=== PATIENT | female | born 1960 | race Caucasian/White ===

== ENCOUNTER 2023-02-07 08:43 | Outpatient (OUT) | payer MEDICARE, MEDICAID, SELFPAY ==
[2023-02-07 09:02] LABS: Estimated GFR (African America >60 (>=60); Estimated GFR (Non-African Ame >60 (>=60)
--- NOTE | 2023-02-07 09:32 | US_ITS ---
[place] [id number] Patient Name: PAULY QUEZADA MRN: [id number] date: 1960 Sex: F Assigned Patient Location: CARD Current Patient Location: Accession/Order Number: [id number] Exam Date: 02/07/2023 09:40 Report Date: 02/08/2023 00:44 At the request of: STEPAN SAM Procedure: US carotid duplex BI EXAMINATION: US carotid duplex BI HISTORY: Bilateral Carotid Bruit COMPARISON: Ultrasound carotid artery bilateral 08/22/2022 TECHNIQUE: Duplex Doppler ultrasound analysis of carotid and vertebral arteries. . Bilateral carotid arterial duplex examination was performed using B-mode, color flow and spectral analysis. Carotid stenosis is reported according to validated velocity parameters, similar to NASCET criteria. FINDINGS: RIGHT CAROTID ARTERY: Mild-moderate slightly irregular atherosclerotic plaque within carotid bulb. RIGHT VERTEBRAL: Antegrade flow. Subclavian: PSV: 124.0 cm/s EDV: 0.0 cm/s CCA: Prox: PSV: 72.7 cm/s EDV: 17.5 cm/s Mid: PSV: 78.6 cm/s EDV: 17.5 cm/s Distal: PSV: 68.8 cm/s EDV: 11.6 cm/s BULB: PSV: 59.4 cm/s EDV: 7.6 cm/s ICA: Prox: PSV: 41.2 cm/s EDV: 8.5 cm/s Mid: PSV: 50.5 cm/s EDV: 14.7 cm/s Distal: PSV: 64.5 cm/s EDV: 10.4 cm/s ECA: PSV: 102.1 cm/s EDV: 5.0 cm/s VERTEBRAL: PSV: 50.3 cm/s EDV: 12.8 cm/s ICA/CCA ratio: PSV: 0.8 EDV: 0.6 LEFT CAROTID ARTERY: Moderate atherosclerotic plaque with 61% area reduction within carotid bulb. LEFT VERTEBRAL: Antegrade flow. Subclavian: PSV: 93.5 cm/s EDV: 0.0 cm/s CCA: Prox: PSV: 95.1 cm/s EDV: 16.0 cm/s Mid: PSV: 75.7 cm/s EDV: 16.0 cm/s Distal: PSV: 69.3 cm/s EDV: 17.6 cm/s BULB: PSV: 56.3 cm/s EDV: 14.4 cm/s ICA: Prox: PSV: 75.7 cm/s EDV: 19.2 cm/s Mid: PSV: 64.4 cm/s EDV: 19.2 cm/s Distal: PSV: 70.8 cm/s EDV: 20.8 cm/s ECA: PSV: 211.4 cm/s EDV: 8.1 cm/s VERTEBRAL: PSV: 14.0 cm/s EDV: 5.6 cm/s ICA/CCA ratio: PSV: 0.8 EDV: 1.2 US/US carotid duplex BI IMPRESSION: 1. 0-49% flow stenosis within the right left carotid arteries. 2. Stable mild/moderate atherosclerotic plaque, greatest within left carotid bulb with grossly stable 61% area reduction. 3. Multiple thyroid nodules, also evaluated on the 09/04/2022 ultrasound thyroid study. Follow-up in one year as suggested on the prior thyroid study is still recommended. Electronically authenticated by: SHAWN GRAFF Date: 02/08/2023 00:44
--- NOTE | 2023-02-07 09:39 | CA_ITS ---
The [facility] Test Date: 2023-02-07 Pat Name: PAULY QUEZADA Department: Room: - Gender: Female Mac[employer]i [employer]: : 1960 Requested By: STEPAN SAM Order Number: [id number] Reading MD: RAMESH EVANS Interpretive Statements Monophasic doppler waveform PVR waveform with delayed upstroke, blunted amplitude and loss of dicrotic notch Decreased B/L DEYANIRA/TBI Impression: - significant lower extremity arterial disease with moderate-severe hemodynamic impairment of the B/L lower extremities at rest (right DEYANIRA 0.54, left DEYANIRA 0.53) Electronically Signed On 02-08-2023 7:32:31 EDT by RAMESH EVANS
== END 2023-02-07 08:44 | disposition home or self-care (01) ==
LOC: CARD 08:43
PROVIDERS: PCP Family Medicine
DX: I73.9 Peripheral vascular disease, unspecified (principal); I77.9 Disorder of arteries and arterioles, unspecified; R68.89 Other general symptoms and signs; R09.89 Other specified symptoms and signs involving the circulatory and respiratory systems; L98.492 Non-pressure chronic ulcer of skin of other sites with fat layer exposed
CPT/HCPCS: 36415; 82565; 93880; 93923

== ENCOUNTER 2023-02-09 09:27 | Outpatient (OUT) | payer MEDICARE, MEDICAID, SELFPAY ==
--- NOTE | 2023-02-09 | CT_ITS ---
[address] [address] Patient Name: PAULY QUEZADA MRN: [id number] date: 1960 Sex: F Assigned Patient Location: CT Current Patient Location: Accession/Order Number: [id number] Exam Date: 02/09/2023 09:35 Report Date: 02/11/2023 09:45 At the request of: STEPAN SAM Procedure: CT angio abdomen pelvis EXAMINATION: CT angio abdomen pelvis HISTORY: Aortic Aneurysm, surveillance COMPARISON: No relevant comparison available. TECHNIQUE: Axial, Coronal, and Sagittal CT images without and with IV contrast. Multi-planar/3-D imaging to optimize visualization of vascular anatomy. Dose reduction techniques were achieved by using automated exposure control and/or adjustment of mA and/or kV according to patient size and/or use of iterative reconstruction technique. FINDINGS: AORTA/VASCULAR: Mild fusiform dilation of distal abdominal aorta, 2.4 cm in diameter. Prior aortobifemoral endograft stent placement. Marked atherosclerotic disease and noncalcified plaque narrowing the abdominal aorta and iliac arteries and visible femoral arteries. CELIAC ARTERY: Normal celiac vessels. SMA: Mild atherosclerotic narrowing. 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 Patent, but marked atherosclerotic narrowing of left renal artery. LUNG BASES: No visible pulmonary or pleural disease. LIVER: Fatty infiltration. BILIARY: No visible dilatation or calcification. PANCREAS: No lesion, fluid collection, ductal dilatation, or atrophy. SPLEEN: No enlargement or focal lesion. ADRENALS: No mass or enlargement. KIDNEYS: Small cyst within inferior pole of left kidney. No mass, obstruction, or calcification. BOWEL/MESENTERY: Diverticulosis of descending and sigmoid colon without acute inflammatory changes. No visible mass, obstruction, or bowel wall thickening. Normal appendix. RETROPERITONEUM: No mass or adenopathy. LYMPH NODES: No adenopathy. URINARY BLADDER: No visible focal wall thickening, lesion, or calculus. PELVIC ORGANS: No visible mass. Pelvic organs appropriate for patient age. ABDOMINAL WALL: No mass or hernia. BONES: Degenerative disc disease of lumbar spine. No fracture or bone lesion. OTHER: Negative. CT/CT angio abdomen pelvis IMPRESSION: 1. Marked atherosclerotic disease of aorta with prior endovascular aortobifemoral stenting and mild fusiform dilation of distal aorta, 2.4 cm. 2. Marked atherosclerotic narrowing of left renal artery, distal aorta, and bilateral iliac and femoral arteries. 3. Mild colonic diverticulosis. Electronically authenticated by: SHAWN GRAFF Date: 02/11/2023 09:45
== END 2023-02-09 09:28 | disposition home or self-care (01) ==
LOC: CT 09:27
PROVIDERS: PCP Family Medicine
DX: I73.9 Peripheral vascular disease, unspecified (principal); I77.9 Disorder of arteries and arterioles, unspecified
CPT/HCPCS: 74174; Q9967

== ENCOUNTER 2023-03-03 10:50 | Emergency (ER) | payer MEDICARE, MEDICAID, SELFPAY ==
[2023-03-03 10:55] VITALS: BP 149/82; PULSE 69; RESP 16; TEMP 36.6; O2SAT 98; BMI 30.8
--- NOTE | 2023-03-03 11:15 | CT_ITS ---
The [address] [address] Patient Name: PAULY QUEZADA MRN: [id number] date: 1960 Sex: F Assigned Patient Location: ER Current Patient Location: ER Accession/Order Number: [id number] Exam Date: 03/03/2023 11:24 Report Date: 03/03/2023 11:53 At the request of: JASON GONZALEZ Procedure: CT head/brain wo con EXAM: CT head/brain wo con, CT facial bones wo con HISTORY: trauma COMPARISON: None. TECHNIQUE: CT head without contrast. CT facial bones without contrast. Multiplanar reformats obtained. The current study utilizes one or more of the following dose-reduction techniques: automated exposure control, iterative reconstruction, and/or manual adjustment of tube current and voltage for size. FINDINGS: CT HEAD: No acute intracranial hemorrhage. No midline shift. Soliman-white matter differentiation maintained. Regional nonspecific white matter hypoattenuation. Ventricles reflect volume loss. No displaced skull fracture. Mastoid air cells, partially visualized and clear. Paranasal sinuses, partially visualized and clear. CT FACIAL BONES: Mastoid air cells clear. Paranasal sinuses clear. No nasal bone fractures. No orbital fracture. Pterygoid plates are intact. The mandible is intact. Temporal mandibular joint alignment is maintained. Small left frontal and periorbital scalp contusion. CT/CT head/brain wo con IMPRESSION: No acute intracranial findings. No facial bone fractures. Small left frontal scalp and periorbital soft tissue contusion. Electronically authenticated by: CARLOS CISNEROS Date: 03/03/2023 11:53
--- NOTE | 2023-03-03 11:15 | CT_ITS ---
The [address] [address] Patient Name: PAULY QUEZADA MRN: [id number] date: 1960 Sex: F Assigned Patient Location: ER Current Patient Location: ER Accession/Order Number: [id number] Exam Date: 03/03/2023 11:24 Report Date: 03/03/2023 11:53 At the request of: JASON GONZALEZ Procedure: CT facial bones wo con EXAM: CT head/brain wo con, CT facial bones wo con HISTORY: trauma COMPARISON: None. TECHNIQUE: CT head without contrast. CT facial bones without contrast. Multiplanar reformats obtained. The current study utilizes one or more of the following dose-reduction techniques: automated exposure control, iterative reconstruction, and/or manual adjustment of tube current and voltage for size. FINDINGS: CT HEAD: No acute intracranial hemorrhage. No midline shift. Soliman-white matter differentiation maintained. Regional nonspecific white matter hypoattenuation. Ventricles reflect volume loss. No displaced skull fracture. Mastoid air cells, partially visualized and clear. Paranasal sinuses, partially visualized and clear. CT FACIAL BONES: Mastoid air cells clear. Paranasal sinuses clear. No nasal bone fractures. No orbital fracture. Pterygoid plates are intact. The mandible is intact. Temporal mandibular joint alignment is maintained. Small left frontal and periorbital scalp contusion. CT/CT facial bones wo con IMPRESSION: No acute intracranial findings. No facial bone fractures. Small left frontal scalp and periorbital soft tissue contusion. Electronically authenticated by: CARLOS CISNEROS Date: 03/03/2023 11:53
--- NOTE | 2023-03-03 11:27 | ED.FALL1 ---
HPI - Fall General Chief Complaint: Fall Stated Complaint: FALL Time Seen by Provider: 03/03/23 11:12 Source: patient Mode of arrival: walk-in Limitations: no limitations History of Present Illness HPI Narrative: The patient fell down yesterday almost around noon which is almost 12 hours ago she had no loss of consciousness no pain and she is presenting today because after falling and hitting her forehead yesterday she noted today that she have this left ecchymosis below her left eye, that she does not remember having any trauma to her eye she denies any headache or any blurry vision no complaints the patient also take Eliquis as well as aspirin at home Related Data Allergies Allergy/AdvReac Type Severity Reaction Status Date / Time Tetracyclic Antidepressants AdvReac Severe Vomiting Verified 03/03/23 11:00 Review of Systems ROS Status of ROS 10 or more systems reviewed and unremarkable except as noted in history and below [facility] Social History Smoking status: Current every day smoker Exam Narrative Exam Narrative: Nurses notes and vital signs reviewed and patient is not hypoxic. General: Well-appearing and in no apparent distress. Skin: Warm, dry, no pallor noted. No rash. Head: Normocephalic, the patient have a small subcutaneous hematoma to the forehead Neck: Supple, non-tender. Eye: Pupils are equal, round and EOMI. she does have a subconjunctival hemorrhage in her left eye with no signs of trauma pupils are reactive no hyphema no hypopyon, the patient also have a raccoon eye on the left lower eyelid with ecchymosis and mild edema, Ears, Nose, Mouth, and Throat: TM are clear, no nasal mucosal hypertrophy. Oral mucosa is moist, no posterior oropharynx erythema, uvula is mid-line Cardiovascular: Regular Rate and Rhythm without murmur, gallop or rub. Respiratory: No accessory muscle use or respiratory distress. Lungs are clear to auscultation, no wheezing, rales or rhonchi Chest Wall: no tenderness Back: No midline thoracic or lumbar vertebral tenderness. No CVA tenderness Musculoskeletal: normal ROM, no calf or popliteal tenderness, no lower extremity edema/swelling GI: Abdomen is soft, non-distended. Normal bowel sounds. No masses appreciated. No tenderness to palpation. No rebound, guarding, or rigidity noted. Neurological: A&O x4. No cranial nerve dysfunction observed. No truncal ataxia. Moves all extremities. Sensation intact. Psychiatric: Cooperative and interactive. Normal mood and affect. Constitutional Vital Signs, click to edit/add: Last Vital Signs Temp 97.8 F 03/03/23 10:55 Pulse 69 03/03/23 10:55 Resp 16 03/03/23 10:55 BP 149/82 H 03/03/23 10:55 Pulse Ox 98 03/03/23 10:55 O2 Del Method Room Air 03/03/23 10:55 Course Vital Signs Vital signs: Vital Signs Temperature 97.8 F 03/03/23 10:55 Pulse Rate 69 03/03/23 10:55 Respiratory Rate 16 03/03/23 10:55 Blood Pressure 149/82 H 03/03/23 10:55 Pulse Oximetry 98 03/03/23 10:55 Oxygen Delivery Method Room Air 03/03/23 10:55 Temperature 97.8 F 03/03/23 10:55 Pulse Rate 69 03/03/23 10:55 Respiratory Rate 16 03/03/23 10:55 Blood Pressure 149/82 H 03/03/23 10:55 Pulse Oximetry 98 03/03/23 10:55 Oxygen Delivery Method Room Air 03/03/23 10:55 MDM - Fall MDM Narrative Medical decision making narrative: CT head and as well as CT face did not show any acute significant pathology The patient was assured that right now just monitoring and coming back in case of any pain especially any eye pain otherwise supportive care and monitoring The patient is to follow up with primary care physician in next 2-3 days or to return to the emergency department should any of the signs or symptoms worsen or new symptoms develop. The patient agrees with the following Diagnosis and Treatment plan and the patient will be discharged home. Discharge Plan Discharge Chief Complaint: Fall Clinical Impression: Subconjunctival hemorrhage, Head trauma Patient Disposition: Home, Self-Care Time of Disposition Decision: 12:10 Condition: Good Mode of Transportation: Private Vehicle Instructions: Subconjunctival Hemorrhage (ED), Head Injury (ED) Stand Alone Forms: Portal Instructions Referrals: Froylan Muhammad MD [Primary Care Provider] - 1 week
== END 2023-03-03 12:21 | disposition home or self-care (01) ==
PROVIDERS: Emergency Provider Emergency Medicine; PCP Family Medicine
DX: H11.32 Conjunctival hemorrhage, left eye (principal); S09.90XA Unspecified injury of head, initial encounter; F17.210 Nicotine dependence, cigarettes, uncomplicated; W19.XXXA Unspecified fall, initial encounter
CPT/HCPCS: 70450; 70486; 99284

== ENCOUNTER 2023-03-11 13:26 | Outpatient (OUT) | payer MEDICARE, MEDICAID, SELFPAY | END 2023-03-11 13:27 | disposition home or self-care (01) | PROVIDERS: PCP Family Medicine; Visit Provider Physician Assistant | DX: R20.0 Anesthesia of skin (principal) | CPT/HCPCS: G0463 ==

== ENCOUNTER 2023-03-31 13:32 | Emergency (ER) | payer MEDICARE, MEDICAID, SELFPAY ==
[2023-03-31 13:39] VITALS: PULSE 81; RESP 18; TEMP 36.4; O2SAT 97; BMI 30.8
--- NOTE | 2023-03-31 14:25 | ED_ITS ---
HPI - Nausea/Vomiting/Diarrhea General Chief complaint: Nausea/Vomiting/Diarrhea Stated complaint: VOMITING AND CHILLS Time Seen by Provider: 03/31/23 13:42 Source: patient Mode of arrival: Wheelchair Limitations: no limitations History of Present Illness HPI Narrative: patient developed nausea and vomiting around 6am this morning. No associated diarrhea. She admits to mid abdominal cramping. No flank pain, No urinary symptoms or blood in urine or stool. She has chronic constipation and takes stool softeners and metamucil daily. No suspicion of spoiled food ingestion and no known ill exposures. Related Data Home Medications Medication Instructions Recorded Confirmed albuterol sulfate 90 mcg/actuation 2 puff inhalation Q6H PRN 03/31/23 03/31/23 aerosol inhaler (Ventolin HFA) shortness of breath or wheezing carvedilol 25 mg tablet 25 mg PO Q12H 03/31/23 03/31/23 clopidogrel 75 mg tablet 75 mg PO DAILY 03/31/23 03/31/23 dulaglutide 0.75 mg/0.5 mL 0.75 mg subcut .weekly 03/31/23 03/31/23 subcutaneous pen injector (Trulicity) empagliflozin 10 mg tablet 10 mg PO DAILY 03/31/23 03/31/23 (Jardiance) ezetimibe 10 mg tablet 10 mg PO DAILY 03/31/23 03/31/23 lisinopril 20 mg tablet 20 mg PO DAILY 03/31/23 03/31/23 metformin 1,000 mg tablet 1,000 mg PO BID 03/31/23 03/31/23 rivaroxaban 2.5 mg tablet (Xarelto) 2.5 mg PO BID 03/31/23 03/31/23 varenicline 1 mg tablet 1 mg PO BID 03/31/23 03/31/23 venlafaxine 75 mg capsule,extended 75 mg PO DAILY 03/31/23 03/31/23 release 24 hr Previous Rx's Medication Instructions Recorded ondansetron 4 mg disintegrating 4 mg PO Q6H PRN nausea and 03/31/23 tablet vomiting #20 tabs Allergies Allergy/AdvReac Type Severity Reaction Status Date / Time Tetracyclic Antidepressants AdvReac Severe Vomiting Verified 03/03/23 11:00 PFSH PFSH Social History Smoking status: Current every day smoker Exam Narrative Exam Narrative: Nurses notes and vital signs reviewed and patient is not hypoxic. afebrile General: Well-appearing and in no apparent distress. Skin: Warm, dry, no pallor noted. Head: Normocephalic, atraumatic. Neck: Supple, non-tender. no meningismus Eye: Pupils are equal, round and EOMI. No scleral icterus. Cardiovascular: Regular Rate and Rhythm without murmur, gallop or rub. Respiratory: No accessory muscle use or respiratory distress. Lungs are clear to auscultation, no wheezing, rales or rhonchi Back: No CVA tenderness Musculoskeletal: normal ROM GI: Abdomen is soft, non-distended. Normal bowel sounds. No masses appreciated. minimum umbilical tenderness to palpation. No rebound, guarding, or rigidity noted. Neurological: A&O x4. No cranial nerve dysfunction observed. No truncal ataxia. Moves all extremities. Sensation intact. Psychiatric: Cooperative and interactive. Normal mood and affect. Constitutional Vital Signs, click to edit/add: Last Vital Signs Temp 97.6 F 03/31/23 13:39 Pulse 81 03/31/23 15:02 Resp 18 03/31/23 15:02 BP 166/90 H 03/31/23 15:02 Pulse Ox 96 03/31/23 15:02 O2 Del Method Room Air 03/31/23 13:39 Course Vital Signs Vital signs: Vital Signs Temperature 97.6 F 03/31/23 13:39 Pulse Rate 81 03/31/23 13:39 Respiratory Rate 18 03/31/23 13:39 Pulse Oximetry 97 03/31/23 13:39 Oxygen Delivery Method Room Air 03/31/23 13:39 Temperature 97.6 F 03/31/23 13:39 Pulse Rate 81 03/31/23 15:02 Respiratory Rate 18 03/31/23 15:02 Blood Pressure 166/90 H 03/31/23 15:02 Pulse Oximetry 96 03/31/23 15:02 Oxygen Delivery Method Room Air 03/31/23 13:39 MDM - Nausea/Vomiting/Diarrhea MDM Narrative Medical decision making narrative: peripheral IV established and blood drawn and sent for testing. The patient was ordered to receive normal saline IV fluid and IV Zofran. Urine was also ordered to be obtained and sent for testing. WBC 11k w left shift. UA with ketones but no UTI. Lipase negative. CMP notable for elevated BUN. Patient felt better after receiving NS IVF and IV Zofran She was discharged home with prescription for zofran, recommendation to maintain clear liquid diet until symptoms subside and then advance diet as tolerated. ED return if she worsens Lab Data Attestation: I reviewed the patient's lab results. Labs: Lab Results 03/31/23 03/31/23 Range/Units 13:45 15:05 WBC 11.1 H (4.0-11.0) 10^3/uL RBC 5.74 H (4.20-5.40) 10^6/uL Hgb 17.3 H (12.0-16.0) g/dL Hct 51.0 H (36.0-48.0) % MCV 88.9 (81.0-99.0) fL MCH 30.1 (26.7-34.0) pg MCHC 33.9 (29.9-35.2) g/dL RDW 13.2 (11.0-15.0) % Plt Count 294 (150-450) 10^3/uL MPV 9.9 (9.5-13.5) fL Neut % (Auto) 80.0 H (43.0-75.0) % Lymph % (Auto) 14.6 L (20.5-60.0) % Reynolds % (Auto) 4.0 (1.7-12.0) % Eos % (Auto) 0.4 L (0.9-7.0) % Baso % (Auto) 0.4 (0.2-2.0) % Neut # (Auto) 8.9 H (1.4-6.5) 10^3/uL Lymph # (Auto) 1.6 (1.2-3.8) 10^3/uL Reynolds # (Auto) 0.4 (0.3-0.8) 10^3/uL Eos # (Auto) 0.0 (0.0-0.7) 10^3/uL Baso # (Auto) 0.0 (0.0-0.1) 10^3/uL Abs Immat Gran (auto) 0.07 H (0.00-0.03) 10^3/uL Imm/Tot Granulo (auto) 0.6 H (0.0-0.5) % Sodium 134 L (136-145) mmol/L Potassium 4.4 (3.5-5.1) mmol/L Chloride 99 (98-107) mmol/L Carbon Dioxide 23.4 (21.0-32.0) mmol/L Anion Gap 16.0 BUN 26.0 H (7.0-18.0) mg/dL Creatinine 0.81 (0.55-1.02) mg/dL Est GFR ( Amer) >60 (>=60) Est GFR (Non-Af Amer) >60 (>=60) BUN/Creatinine Ratio 32.1 Glucose 178 H (74-106) mg/dL Calcium 10.5 H (8.5-10.1) mg/dL Total Bilirubin 0.6 (0.2-1.0) mg/dL AST 12 L (15-37) U/L ALT 19 (14-59) U/L Alkaline Phosphatase 91 (46-116) U/L Total Protein 8.2 (6.4-8.2) g/dL Albumin 4.2 (3.4-5.0) g/dL Globulin 4.0 g/dL Albumin/Globulin Ratio 1.0 Lipase 24.0 (16.0-77.0) U/L Urine Color Lt. yellow (YELLOW) Urine Clarity Clear (CLEAR) Urine pH 6.5 (5.0-9.0) Ur Specific [place] 1.020 (1.005-1.025) Urine Protein Negative (NEG/TRACE) mg/dL Urine Glucose (UA) >=1000 A (NEGATIVE) mg/dL Urine Ketones 15 A (NEGATIVE) mg/dL Urine Occult Blood Trace-l (NEGATIVE) Urine Nitrite Negative (NEGATIVE) Urine Bilirubin Negative (NEGATIVE) Urine Urobilinogen 0.2 (0.2-1.0) EU/dL Ur Leukocyte Esterase Negative (NEGATIVE) Urine RBC 0-2 (0-2) #/HPF Urine WBC None seen (NONE SEEN) #/HPF Ur Squamous Epith Cells Moderate A (NONE/RARE) #/LPF Urine Crystals None seen (None Seen) #/HPF Urine Bacteria None seen (NONE SEEN) #/HPF Urine Casts None seen (NONE SEEN) #/LPF Urine Mucus None seen (NONE SEEN) Ur Culture Indicated? No Discharge Plan Discharge Chief Complaint: Nausea/Vomiting/Diarrhea Clinical Impression: Nausea & vomiting Patient Disposition: Home, Self-Care Time of Disposition Decision: 15:24 Prescriptions / Home Meds: New ondansetron 4 mg tablet,disintegrating 4 mg PO Q6H PRN (Reason: nausea and vomiting) Qty: 20 0RF No Action Trulicity 0.75 mg/0.5 mL pen injector 0.75 mg SUBCUT .weekly ezetimibe 10 mg tablet 10 mg PO DAILY lisinopril 20 mg tablet 20 mg PO DAILY Xarelto 2.5 mg tablet 2.5 mg PO BID varenicline 1 mg tablet 1 mg PO BID venlafaxine 75 mg capsule,extended release 24hr 75 mg PO DAILY metformin 1,000 mg tablet 1,000 mg PO BID Jardiance 10 mg tablet 10 mg PO DAILY clopidogrel 75 mg tablet 75 mg PO DAILY carvedilol 25 mg tablet 25 mg PO Q12H albuterol sulfate [Ventolin HFA] 90 mcg/actuation HFA aerosol inhaler 2 puff INHALATION Q6H PRN (Reason: shortness of breath or wheezing) Instructions: Acute Nausea and Vomiting (ED) Stand Alone Forms: Portal Instructions Referrals: Froylan Muhammad MD [Primary Care Provider] - 1 week
[2023-03-31] MEDS: ONDANSETRON PF 4 MG/2 ML VIAL IV (14:33)
[2023-03-31] MEDS: 0.9 % SODIUM CHLORIDE 1,000 ML 999 ML IV (14:33)
[2023-03-31 14:38] LABS: Basophils Percent Auto 0.4 % (0.2-2.0); Eosinophils Percent Auto 0.4 % (0.9-7.0); Hemoglobin 17.3 g/dL (12.0-16.0); Immature Granulocytes Abs Auto 0.07 10^3/uL (0.00-0.03); Immature Granulocytes Pct Auto 0.6 % (0.0-0.5); Lymphocytes Absolute Auto 1.6 10^3/uL (1.2-3.8); Lymphocytes Percent Auto 14.6 % (20.5-60.0); Mean Corpuscular HGB Conc 33.9 g/dL (29.9-35.2); Mean Corpuscular Hemoglobin 30.1 pg (26.7-34.0); Mean Corpuscular Volume 88.9 fL (81.0-99.0); Mean Platelet Volume 9.9 fL (9.5-13.5); Monocytes Absolute Auto 0.4 10^3/uL (0.3-0.8); Neutrophils Absolute Auto 8.9 10^3/uL (1.4-6.5); Platelet Count 294 10^3/uL (150-450); Red Blood Count 5.74 10^6/uL (4.20-5.40); Red Cell Distribution Width 13.2 % (11.0-15.0); White Blood Count 11.1 10^3/uL (4.0-11.0)
[2023-03-31 14:53] LABS: Alanine Aminotransferase 19 U/L (14-59); Albumin Level 4.2 g/dL (3.4-5.0); Alkaline Phosphatase 91 U/L (46-116); Aspartate Amino Transferase 12 U/L (15-37); BUN Creatinine Ratio 32.1; Bilirubin Total 0.6 mg/dL (0.2-1.0); Calcium 10.5 mg/dL (8.5-10.1); Carbon Dioxide 23.4 mmol/L (21.0-32.0); Chloride 99 mmol/L (98-107); Estimated GFR (African America >60 (>=60); Estimated GFR (Non-African Ame >60 (>=60); Glucose 178 mg/dL (74-106); Potassium 4.4 mmol/L (3.5-5.1); Sodium 134 mmol/L (136-145); Total Protein 8.2 g/dL (6.4-8.2)
[2023-03-31 15:02] VITALS: BP 166/90; PULSE 81; RESP 18; O2SAT 96
[2023-03-31 15:12] LABS: Bilirubin Urine NEGATIVE (NEGATIVE); Blood Urine TRACE-L (NEGATIVE); Clarity Urine CLEAR (CLEAR); Color Urine LT. YELLOW (YELLOW); Glucose Urine UA >=1000 mg/dL (NEGATIVE); Ketones Urine 15 mg/dL (NEGATIVE); Leukocyte Esterase Urine NEGATIVE (NEGATIVE); Nitrite Urine NEGATIVE (NEGATIVE); Protein Urine NEGATIVE (NEG/TRACE); Urobilinogen Urine 0.2 EU/dL (0.2-1.0); pH Urine 6.5 (5.0-9.0)
[2023-03-31 15:13] LABS: Urine Microscopic Indicated YES
[2023-03-31 15:20] LABS: Bacteria Urine NONE SEEN #/HPF (NONE SEEN); Crystals Seen? None Seen #/HPF (None Seen); Mucus Urine NONE SEEN (NONE SEEN); RBC Urine 0-2 #/HPF (0-2); Squamous Epithelial Cell Urine MODERATE #/LPF (NONE/RARE); WBC Urine NONE SEEN #/HPF (NONE SEEN)
[2023-03-31 15:21] LABS: Cast Seen? NONE SEEN #/LPF (NONE SEEN); Urine Culture Indicated NO
[2023-03-31] MEDS: ONDANSETRON 4 MG RAPDIS TABLET SL (15:42)
== END 2023-03-31 15:46 | disposition home or self-care (01) ==
PROVIDERS: Emergency Provider Emergency Medicine; PCP Family Medicine
DX: R11.2 Nausea with vomiting, unspecified (principal); Z79.899 Other long term (current) drug therapy; Z79.01 Long term (current) use of anticoagulants; Z79.85 Long-term (current) use of injectable non-insulin antidiabetic drugs; F17.210 Nicotine dependence, cigarettes, uncomplicated
CPT/HCPCS: 36415; 80053; 81001; 83690; 85025; 96374; 99285

== ENCOUNTER 2023-04-02 08:40 | Emergency (ER) | payer MEDICARE, MEDICAID, SELFPAY ==
[2023-04-02] VITALS (13 sets, daily range): BP systolic 170–198; BP diastolic 78–100; PULSE 66–91; RESP 15–29; O2SAT 95–100; BMI 29.9
--- NOTE | 2023-04-02 09:11 | XR_ITS ---
The [address] [address] Patient Name: PAULY QUEZADA MRN: [id number] date: 1960 Sex: F Assigned Patient Location: ER Current Patient Location: ER Accession/Order Number: [id number] Exam Date: 04/02/2023 09:30 Report Date: 04/02/2023 09:41 At the request of: DARIN IBARRA Procedure: XR chest 1V EXAM: XR chest 1V HISTORY: . chest pain . COMPARISON: None. TECHNIQUE: Single view of the chest FINDINGS: Heart and vascularity are unremarkable. There is hyperexpansion of the lungs. Lungs are free of focal infiltrates. EKG leads overlie the chest. XR/XR chest 1V IMPRESSION: 1 hyperexpansion of lungs. 2. No acute heart or lung disease identified. Electronically authenticated by: NISA SEGUNDO Date: 04/02/2023 09:41
--- NOTE | 2023-04-02 09:19 | ED.GENADUL1 ---
HPI - General Adult General Chief complaint: Chest Pain Stated complaint: PUKING/CHEST PAIN Time Seen by Provider: 04/02/23 09:19 Source: patient Mode of arrival: Wheelchair History of Present Illness HPI narrative: patient here for intractable nausea and vomiting. She recently a similar episode on Saturday. She came to the [facility]-arm was hydrated was given antiemetics and felt better. She felt pretty good yesterday but cycles repeated itself again today. She is scheduled to go the [facility] tomorrow for admission for I past surgery. She is known to have peripheral vascular disease and had a catheterization prior to further evaluation of her peripheral vascular disease and it was discovered that she has four vessel disease needing grafting according to the patient's history. She does use marijuana on a pretty regular basis. She does not use alcohol. She's never had any problems with her pancreas liver or gallbladder. She has not had any diarrhea. Is not running a fever. Related Data Home Medications Medication Instructions Recorded Confirmed albuterol sulfate 90 mcg/actuation 2 puff inhalation Q6H PRN 03/31/23 03/31/23 aerosol inhaler (Ventolin HFA) shortness of breath or wheezing carvedilol 25 mg tablet 25 mg PO Q12H 03/31/23 03/31/23 clopidogrel 75 mg tablet 75 mg PO DAILY 03/31/23 03/31/23 dulaglutide 0.75 mg/0.5 mL 0.75 mg subcut .weekly 03/31/23 03/31/23 subcutaneous pen injector (Trulicity) empagliflozin 10 mg tablet 10 mg PO DAILY 03/31/23 03/31/23 (Jardiance) ezetimibe 10 mg tablet 10 mg PO DAILY 03/31/23 03/31/23 lisinopril 20 mg tablet 20 mg PO DAILY 03/31/23 03/31/23 metformin 1,000 mg tablet 1,000 mg PO BID 03/31/23 03/31/23 rivaroxaban 2.5 mg tablet (Xarelto) 2.5 mg PO BID 03/31/23 03/31/23 varenicline 1 mg tablet 1 mg PO BID 03/31/23 03/31/23 venlafaxine 75 mg capsule,extended 75 mg PO DAILY 03/31/23 03/31/23 release 24 hr Previous Rx's Medication Instructions Recorded ondansetron 4 mg disintegrating 4 mg PO Q6H PRN nausea and 03/31/23 tablet vomiting #20 tabs Allergies Allergy/AdvReac Type Severity Reaction Status Date / Time Tetracyclic Antidepressants AdvReac Severe Vomiting Verified 03/03/23 11:00 PFSH PFS Social History Smoking status: Current every day smoker Exam Narrative Exam Narrative: awake alert does not appear ill or toxic but does have some dry heaves and nausea. Vital signs are noted. HEENT shows no evidence of scleral icterus edema or pallor. Neck is soft and supple is no meningeal irritation. Chest shows her lungs to be clear with no wheezes rales or rhonchi. Heart sounds are normal with no tachycardia or murmur. Abdomen is benign to palpation. There is no guarding rebound rigidity or peritoneal findings. No tenderness at McBurney's point. Pino sign is negative. Lower extremities show normal limits edema or swelling pain or discomfort. Constitutional Vital Signs, click to edit/add: Last Vital Signs Pulse 78 04/02/23 08:49 Resp 20 04/02/23 08:49 BP 194/100 H 04/02/23 08:57 Pulse Ox 99 04/02/23 08:49 O2 Del Method Room Air 04/02/23 08:49 Course Vital Signs Vital signs: Vital Signs Pulse Rate 78 04/02/23 08:49 Respiratory Rate 20 04/02/23 08:49 Pulse Oximetry 99 04/02/23 08:49 Oxygen Delivery Method Room Air 04/02/23 08:49 Pulse Rate 78 04/02/23 08:49 Respiratory Rate 20 04/02/23 08:49 Blood Pressure 194/100 H 04/02/23 08:57 Pulse Oximetry 99 04/02/23 08:49 Oxygen Delivery Method Room Air 04/02/23 08:49 Medical Decision Making MDM Narrative Medical decision making narrative: we did obtain her medical records from the other facility and she seems to have four vessels that may need therapeutic intervention. Her 12-lead EKG here shows sinus rhythm with no ST segment elevation or arrhythmia. Her cardiac troponin and routine chemistries are normal. She was treated with antibiotics and IV fluids and feels remarkably better. I think she must consider possibility the marijuana use a be contributing factor. I believe she is not having a cardiac event today and is scheduled to see her heart doctor tomorrow morning for further definition of her therapeutic options.these be on clear liquid diet remainders today. She can return should she have any problems. I did discuss this with her primary care doctor for follow-up as well Discharge Plan Discharge Chief Complaint: Chest Pain Clinical Impression: Nausea & vomiting Patient Disposition: Home, Self-Care Time of Disposition Decision: 11:36 Prescriptions / Home Meds: No Action Trulicity 0.75 mg/0.5 mL pen injector 0.75 mg SUBCUT .weekly ezetimibe 10 mg tablet 10 mg PO DAILY lisinopril 20 mg tablet 20 mg PO DAILY Xarelto 2.5 mg tablet 2.5 mg PO BID varenicline 1 mg tablet 1 mg PO BID venlafaxine 75 mg capsule,extended release 24hr 75 mg PO DAILY metformin 1,000 mg tablet 1,000 mg PO BID Jardiance 10 mg tablet 10 mg PO DAILY clopidogrel 75 mg tablet 75 mg PO DAILY carvedilol 25 mg tablet 25 mg PO Q12H albuterol sulfate [Ventolin HFA] 90 mcg/actuation HFA aerosol inhaler 2 puff INHALATION Q6H PRN (Reason: shortness of breath or wheezing) ondansetron 4 mg tablet,disintegrating 4 mg PO Q6H PRN (Reason: nausea and vomiting) Qty: 20 0RF Additional Instructions: return for any problems as discussed Stand Alone Forms: Portal Instructions Referrals: Froylan Muhammad MD [Primary Care Provider] - 1 week
[2023-04-02 09:23] LABS: Basophils Percent Auto 0.5 % (0.2-2.0); Eosinophils Absolute Auto 0.1 10^3/uL (0.0-0.7); Eosinophils Percent Auto 1.4 % (0.9-7.0); Hematocrit 50.1 % (36.0-48.0); Hemoglobin 16.7 g/dL (12.0-16.0); Immature Granulocytes Abs Auto 0.03 10^3/uL (0.00-0.03); Immature Granulocytes Pct Auto 0.4 % (0.0-0.5); Lymphocytes Absolute Auto 1.8 10^3/uL (1.2-3.8); Lymphocytes Percent Auto 21.8 % (20.5-60.0); Mean Corpuscular HGB Conc 33.3 g/dL (29.9-35.2); Mean Corpuscular Hemoglobin 29.8 pg (26.7-34.0); Mean Corpuscular Volume 89.3 fL (81.0-99.0); Monocytes Absolute Auto 0.5 10^3/uL (0.3-0.8); Monocytes Percent Auto 5.4 % (1.7-12.0); Neutrophils Absolute Auto 5.9 10^3/uL (1.4-6.5); Neutrophils Percent Auto 70.5 % (43.0-75.0); Platelet Count 252 10^3/uL (150-450); Red Blood Count 5.61 10^6/uL (4.20-5.40); Red Cell Distribution Width 13.1 % (11.0-15.0); White Blood Count 8.3 10^3/uL (4.0-11.0)
[2023-04-02] MEDS: ONDANSETRON PF 4 MG/2 ML VIAL IV (09:38)
[2023-04-02] MEDS: PROMETHAZINE HCL 25 MG/ML VIAL 12.5 MG IV (09:38)
[2023-04-02 09:41] LABS: Alanine Aminotransferase 19 U/L (14-59); Albumin Level 3.8 g/dL (3.4-5.0); Alkaline Phosphatase 80 U/L (46-116); Anion Gap 16.4; Aspartate Amino Transferase 16 U/L (15-37); BUN Creatinine Ratio 23.2; Bilirubin Total 0.9 mg/dL (0.2-1.0); Calcium 10.6 mg/dL (8.5-10.1); Carbon Dioxide 22.6 mmol/L (21.0-32.0); Chloride 98 mmol/L (98-107); Estimated GFR (African America >60 (>=60); Estimated GFR (Non-African Ame 59 (>=60); Globulin 3.9 g/dL; Glucose 178 mg/dL (74-106); Sodium 133 mmol/L (136-145); Total Protein 7.7 g/dL (6.4-8.2)
[2023-04-02 09:46] LABS: Troponin I High Sensitivity 13.3 pg/mL (4.0-51.3)
[2023-04-02] MEDS: 0.9 % SODIUM CHLORIDE 1,000 ML 999 ML IV (10:27)
--- NOTE | 2023-04-02 11:16 | ECG_ITS ---
The 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
== END 2023-04-02 11:53 | disposition home or self-care (01) ==
PROVIDERS: Emergency Provider Emergency Medicine Emergency Medical Services; PCP Family Medicine
DX: R11.2 Nausea with vomiting, unspecified (principal); I73.9 Peripheral vascular disease, unspecified; F12.90 Cannabis use, unspecified, uncomplicated; Z79.899 Other long term (current) drug therapy; Z79.85 Long-term (current) use of injectable non-insulin antidiabetic drugs; Z79.01 Long term (current) use of anticoagulants; F17.210 Nicotine dependence, cigarettes, uncomplicated
CPT/HCPCS: 36415; 71045; 80053; 83690; 84484; 85025; 93005; 96361; 96374; 96375; 99285

== ENCOUNTER 2023-05-04 07:38 | Outpatient (OUT) | payer MEDICARE, MEDICAID, SELFPAY ==
--- NOTE | 2023-05-04 | US_ITS ---
The [address] [address] Patient Name: PAULY QUEZADA MRN: [id number] date: 1960 Sex: F Assigned Patient Location: LAB Current Patient Location: LAB Accession/Order Number: [id number] Exam Date: 05/04/2023 08:00 Report Date: 05/04/2023 09:06 At the request of: NANO NGUYEN Procedure: US right upper quadrant EXAM: US right upper quadrant HISTORY: . GASTROENTERITIS K52.9 . COMPARISON: None. TECHNIQUE: Grayscale and color imaging was performed FINDINGS: The pancreas appears normal. Scanning of the liver demonstrates a normal-appearing liver. There is mild increased echogenicity of liver. Within the right lobe of the liver there is a 2.9 x 2.2 cm oblong hypoechoic area. No definite color-flow is noted within this area. Color-flow is noted in the portal and hepatic veins. The gallbladder appears normal. Common bile duct measures 5 mm. Right kidney measures 11.5 x 5.2 x 5.3 cm. No solid renal cortical masses or hydronephrosis is noted. No fluid is noted in the right upper quadrant. US/US right upper quadrant Impression: 1. Diffuse increased echogenicity of liver consistent with fatty infiltration of liver. Within the right lobe of the liver there is a 2.9 x 2 cm hypoechoic area. Findings could represent focal fatty sparing. A more aggressive lesion however cannot entirely be excluded. Either MRI of the liver or short-term interval follow-up ultrasound to document stability is suggested. 2. The remainder of the right upper quadrant was unremarkable. Electronically authenticated by: NISA SEGUNDO Date: 05/04/2023 09:06
[2023-05-04 08:21] LABS: Basophils Percent Auto 0.5 % (0.2-2.0); Eosinophils Absolute Auto 0.1 10^3/uL (0.0-0.7); Eosinophils Percent Auto 1.4 % (0.9-7.0); Hematocrit 48.4 % (36.0-48.0); Hemoglobin 15.9 g/dL (12.0-16.0); Immature Granulocytes Abs Auto 0.07 10^3/uL (0.00-0.03); Immature Granulocytes Pct Auto 0.9 % (0.0-0.5); Lymphocytes Absolute Auto 2.3 10^3/uL (1.2-3.8); Lymphocytes Percent Auto 30.6 % (20.5-60.0); Mean Corpuscular HGB Conc 32.9 g/dL (29.9-35.2); Mean Corpuscular Hemoglobin 30.6 pg (26.7-34.0); Mean Corpuscular Volume 93.1 fL (81.0-99.0); Mean Platelet Volume 9.7 fL (9.5-13.5); Monocytes Absolute Auto 0.7 10^3/uL (0.3-0.8); Monocytes Percent Auto 8.9 % (1.7-12.0); Neutrophils Absolute Auto 4.3 10^3/uL (1.4-6.5); Neutrophils Percent Auto 57.7 % (43.0-75.0); Platelet Count 315 10^3/uL (150-450); White Blood Count 7.4 10^3/uL (4.0-11.0)
[2023-05-04 09:14] LABS: Alanine Aminotransferase 16 U/L (14-59); Albumin Globulin Ratio 1.1; Albumin Level 3.9 g/dL (3.4-5.0); Alkaline Phosphatase 86 U/L (46-116); Anion Gap 13.5; Aspartate Amino Transferase 8 U/L (15-37); BUN Creatinine Ratio 30.6; Bilirubin Total 0.6 mg/dL (0.2-1.0); Calcium 9.6 mg/dL (8.5-10.1); Carbon Dioxide 27.3 mmol/L (21.0-32.0); Chloride 102 mmol/L (98-107); Chol HDL Ratio 5.4; Cholesterol 247 mg/dL (<=200); Estimated Average Glucose 151 mg/dL; Estimated GFR (African America >60 (>=60); Estimated GFR (Non-African Ame >60 (>=60); Free T3 2.94 pg/mL (2.18-3.98); Globulin 3.7 g/dL; Glucose 147 mg/dL (74-106); Glycohemoglobin A1C 6.9 % (4.5-6.2); HDL Cholesterol 46 mg/dL (40-60); Potassium 4.8 mmol/L (3.5-5.1); Sodium 138 mmol/L (136-145); Thyroid Stimulating Hormone 0.187 uIU/mL (0.358-3.740); Total Protein 7.6 g/dL (6.4-8.2); Triglycerides 176 mg/dL (<=150); VLDL CHOLESTEROL 35.2 mg/dL
== END 2023-05-04 07:39 | disposition home or self-care (01) ==
LOC: LAB 07:39
PROVIDERS: PCP Family Medicine; Visit Provider Family Medicine
DX: K52.9 Noninfective gastroenteritis and colitis, unspecified (principal); E11.9 Type 2 diabetes mellitus without complications; I10 Essential (primary) hypertension; E78.5 Hyperlipidemia, unspecified; R73.09 Other abnormal glucose; Z12.12 Encounter for screening for malignant neoplasm of rectum; D64.9 Anemia, unspecified; E55.9 Vitamin D deficiency, unspecified; K76.0 Fatty (change of) liver, not elsewhere classified
CPT/HCPCS: 36415; 76705; 80053; 80061; 82306; 83036; 83540; 84436; 84443; 84481; 85025

== ENCOUNTER 2023-05-22 09:29 | Outpatient (OUT) | payer MEDICARE, MEDICAID, SELFPAY ==
--- NOTE | 2023-05-22 09:36 | MR_ITS ---
[address] [address] Patient Name: PAULY QUEZADA MRN: [id number] date: 1960 Sex: F Assigned Patient Location: MRI Current Patient Location: Accession/Order Number: [id number] Exam Date: 05/22/2023 09:46 Report Date: 05/23/2023 07:34 At the request of: NANO NGUYEN Procedure: MR abdomen wo con EXAMINATION: MR abdomen wo con HISTORY: Liver Cyst K76.89 COMPARISON: Ultrasound right upper quadrant 05/04/2023 TECHNIQUE: A comprehensive MRI examination of the abdomen was performed to optimize visualization of suspected pathology. Images were obtained with and/or without intravenous Dotarem contrast as indicated by exam type. FINDINGS: LIVER: No enlargement, atrophy, abnormal signal, or significant focal lesion. BILIARY: No visible dilatation or calcification. PANCREAS: No lesion, fluid collection, ductal dilatation, or atrophy. SPLEEN: No enlargement or focal lesion. KIDNEYS: No mass or obstruction. ADRENALS: No mass or enlargement. AORTA/VASCULAR: No aneurysm or dissection. RETROPERITONEUM: No mass or adenopathy. BOWEL/MESENTERY: No visible mass, obstruction, or bowel wall thickening. ABDOMINAL WALL: No mass or hernia. BONES: No bony lesion or fracture. LUNG BASES: No visible pleural disease. Lung bases not well assessed with MRI. OTHER: Negative. MR/MR abdomen wo con IMPRESSION: 1. No abnormal findings within the liver. Electronically authenticated by: SHAWN GRAFF Date: 05/23/2023 07:34
== END 2023-05-22 09:30 | disposition home or self-care (01) ==
LOC: MRI 09:31
PROVIDERS: PCP Family Medicine; Visit Provider Family Medicine
DX: K76.89 Other specified diseases of liver (principal)
CPT/HCPCS: 74181

== ENCOUNTER 2023-05-31 10:40 | Outpatient (OUT) | payer MEDICARE, MEDICAID, SELFPAY ==
--- NOTE | 2023-05-31 10:44 | MM_ITS ---
Patient Name: PAULY QUEZADA MR#: [id number] : 1960 Exam Date: 05/31/2023 Ordering Doctor: DR Froylan Muhammad . RADIOLOGY REPORT PROCEDURE: MM TOMOSYNTHESIS SCREENING BI COMPARISON: MG MAMM SCREEN 3D LOVE CAD, 05/25/2022. MG MAMM SCREEN 3D LOVE CAD, 03/29/2021. INDICATIONS: Screening Calculator Name NCI Breast Cancer Risk Assessment Tool 5 Year Breast Cancer Risk 2.20% Lifetime Breast Cancer Risk 8.20% Personal Breast Cancer No Personal Ovarian Cancer No Treatments None Family Cancers Aunt-maternal with breast cancer at age 60; Brother with lung cancer at age 58; Brother with lung cancer at age 60. LOCATION: [facility] BREAST COMPOSITION: Almost entirely fatty. FINDINGS: DIAGNOSTIC CATEGORY 1--NEGATIVE. NO CHANGE FROM COMPARISON ASSESSMENT. Scattered benign-appearing calcifications are present. Scattered benign-appearing lymph nodes are present. RIGHT BREAST: No significant suspicious finding. LEFT BREAST: No significant suspicious finding. RECOMMENDATIONS: ROUTINE MAMMOGRAM AND CLINICAL EVALUATION IN 12 MONTHS. PLEASE NOTE: A NORMAL MAMMOGRAM DOES NOT EXCLUDE THE POSSIBILITY OF BREAST CANCER. A CLINICALLY SUSPICIOUS PALPABLE LUMP SHOULD BE BIOPSIED. Dictated by: Caio Edwards MD on 05/31/2023 at 13:32 Approved by: Caio Edwards MD on 05/31/2023 at 13:33
== END 2023-05-31 10:41 | disposition home or self-care (01) ==
LOC: MAMMO 10:40
PROVIDERS: PCP Family Medicine; Visit Provider Family Medicine
DX: Z12.31 Encounter for screening mammogram for malignant neoplasm of breast (principal); Z80.3 Family history of malignant neoplasm of breast; Z80.1 Family history of malignant neoplasm of trachea, bronchus and lung
CPT/HCPCS: 77063; 77067

== ENCOUNTER 2023-06-08 12:30 | Outpatient (REF) | payer MEDICARE, MEDICAID, SELFPAY ==
[2023-06-08 14:45] LABS: Occult Blood Positive
== END 2023-06-08 12:31 | disposition home or self-care (01) ==
LOC: LAB 12:30
PROVIDERS: PCP Family Medicine; Visit Provider Family Medicine
DX: K52.9 Noninfective gastroenteritis and colitis, unspecified (principal); E11.9 Type 2 diabetes mellitus without complications; I10 Essential (primary) hypertension; E78.5 Hyperlipidemia, unspecified; Z12.12 Encounter for screening for malignant neoplasm of rectum; D64.9 Anemia, unspecified; E55.9 Vitamin D deficiency, unspecified
CPT/HCPCS: G0328

== ENCOUNTER 2023-06-20 10:40 | Emergency (ER) | payer MEDICARE, MEDICAID, SELFPAY ==
[2023-06-20 10:45] VITALS: BP 215/98; PULSE 84; RESP 16; TEMP 36.5; O2SAT 99; BMI 30.9
--- OUTSIDE RECORDS SUMMARY | 2023-06-20 11:03 | XMS_ITS | CCD ---
Author Name Unknown Address [address] [place] [address] Organization [facility] Care Team Providers Care Ip Network Architect Name Role Phone Nano Muhammad Primary Care Unavailable Murray LUGO, Jim Edwards Attending Unav ailable Murray LUGO, Jim Edwards Referring Unav ailable Nano Muhammad Unavailable Unavailable Unavailable MARYJANE IRBY Consulting Unavailable ROBERTAY ., DR MCGILL Primary Care Unavailable MARYJANE IRBY Attending Unavailable MARYJANE IRBY Admitting Unavailable HOY ., DR MCGILL Consulting Unavailable HOY ., DR MCGILL Primary Care Unavailable HOY ., DR MCGILL Attending Unavailable HOY ., DR MCGILL Admitting Unavailable Shawn Solis Consulting Unavailable HOY ., DR MCGILL Consulting Unavailable HOY ., DR MCGILL Primary Care Unavailable HOY ., DR MCGILL Attending Unavailable HOY ., DR MCGILL Admayan Unavailable JOE HUBBARD Consulting Unavailable HOY ., DR MCGILL Primary Care Unavailable JOE HUBBARD Attending Unavailable JOE HUBBARD Admitting Unavailable HOY ., DR MCGILL Consulting Unavailable HOY ., DR MCGILL Primary Care Unavailable HOY ., DR MCGILL Attending Unavailable HOY ., DR MCGILL Admayan Unavailable Shawn Solis Consulting Unavailable HOY ., DR MCGILL Consulting Unavailable HOY ., DR MCGILL Primary Care Unavailable HOY ., DR MCGILL Attending Unavailable HOY ., DR MCGILL Admitting Unavailable Shawn Solis Consulting Unavailable [place], DR NISA Lainez Consulting Unavailable WENDY ., DR MCGILL Primary Care Unavailable MARYJANE IRBY Attending Unavailable MARYJANE IRBY Admitting Unavailable MARYJANE IRBY Consulting Unavailable WENDY ., DR MCGILL Primary Care Unavailable AMIRA MYLES Attending Unavailable AMIRA MYLES Admitting Unavailable HOY ., DR MCGILL Primary Care Unavailable AMIRA MYLES Attending Unavailable AMIRA MYLES Admitting Unavailable ABBAS, DR YING Consulting Unavailable HOY ., DR MCGILL Primary Care Unavailable ABBAS, DR YING Attending Unavailable ABBAS, DR YING Admitting Unavailable WEST, DR NISA Lainez Consulting Unavailable HOY ., DR MCGILL Consulting Unavailable HOY ., DR MCGILL Primary Care Unavailable HOY ., DR MCGILL Attending Unavailable HOY ., DR MCGILL Admitting Unavailable WEST, DR NISA Lainez Consulting Unavailable HOY ., DR MCGILL Consulting Unavailable HOY ., DR MCGILL Primary Care Unavailable HOY ., DR MCGILL Attending Unavailable HOY ., DR MCGILL Admitting Unavailable WEST, DR NISA Lainez Consulting Unavailable HOY ., DR MCGILL Consulting Unavailable HOY ., DR MCGILL Primary Care Unavailable HOY ., DR MCGILL Attending Unavailable HOY ., DR MCGILL Admitting Unavailable MD Patrizia Melendrez Attending Provider [phone] MD Nano Muhammad Primary Care Provider [phone] Patrizia Melendrez Unavailable Patrizia Melendrez Attending Unavailable Nano Muhammad Primary Care Unavailable Patrizia Melendrez Admitting Unavailable Patrizia Melendrez Attending Unavailable Nano Muhammad Primary Care Unavailable Patrizia Melendrez Admitting Unavailable Suzie LAMB, Benico Unavailable Erick LAMB, Willem Unavailable [phone] BAKAEEN, WILLEM Referring Unavailable BAKAEEN, WILLEM Referring Unavailable BAKAEEN, WILLEM Referring Unavailable BAKAEEN, WILLEM Referring Unavailable BAKAEEN, WILLEM Referring Unavailable AMBANI, PAPA Attending Unavailable NANO MUHAMMAD M Primary Care Unavailable MD DOLORES, PhD, DAYO Referring Unavaila ble JACK PAPA Referring Unavailable NANO MUHAMMAD M Primary Care Unavailable BAKAEEN, WILLEM Referring Unavailable BAKAEEN, WILLEM Attending Unavailable NANO MUHAMMAD M Primary Care Unavailable BARZILAI, BENICO Referring Unavailable BARZILAI, BENICO Referring Unavailable BAKAEEN, WILLEM Referring Unavailable BAKAEEN, WILLEM Referring Unavailable BARZILAI, BENICO Referring Unavailable EVY WARNERICO Attending Unavailable BARZILAI, BENICO Attending Unavailable BARZILAKady BENICO Referring Unavailable BARZILAKady BENICO Referring Unavailable BARZIFRIDA BENICO Attending Unavailable BAKAEGINGER WILLEM Referring Unavailable Allergies Allergy Classification Reported Allergen(s) Allergy Type Date of Onset Reaction(s) Facility (18 sources) Tetracycline; Translations: [tetracycline] Drug Allergy 3 Unknown, GI Upset [facility] (2 sources) rosuvastatin; Translations: [ROSUVASTATIN] Drug Allergy 0 [facility] (1 source) SITagliptin Drug Allergy 0 [facility] (1 source) Tetracycline Drug Allergy [facility] (3 sources) House dust mite Drug allergy Unknown [facility] Other (3 sources) Cat dander Drug allergy Unknown [facility] Other (1 source) Tetracycline Drug Allergy 3 [facility] (9 sources) [place] house dust mite allergenic extract / house dust mite allergenic extract; Translations: [ALLERG XT,D.FARINAE-D.P TERONYS] Drug Allergy 3 Itching [facility] (9 sources) Cat Hair Extract; Translations: [CAT HAIR STANDARDIZED ALLERGENIC EXTRACT] Drug Allergy 3 Itching [facility] (9 sources) house dust allergenic extract; Translations: [HOUSE DUST] Drug Allergy 3 Itching [facility] (8 sources) rosuvastatin Drug Allergy 0 Unknown [facility] (9 sources) SITagliptin; Translations: [SITAGLIPTIN] Drug Allergy 0 Unknown [facility] Medications Current Medications Medication Drug Class(es) Dates Sig (Normalized) Sig (Original) [id number] 200 actuat albuterol 0.09 mg/actuat metered dose inhaler (17 sources) beta2-Adrenergic Agonist Start: 03-20-2023 take 1 puff(s) by inhalation every six hours Albuterol Sulfate (Ventolin Hfa) 90 mcg/actuation HFA aerosol inhaler Active 2 PUFF INHALATION Q6H March 20, 2023 12:00am Start: 02-14-2022 take 2 puff(s) by in halation four times daily VENTOLIN HFA 90 mcg/actuation inhaler Inhale 2 Puffs as instructed four times daily. 0 03/07/2023 Active take 1 puff(s) by in halation every four hours as needed Ventolin HFA 108 (90 Base) MCG/ACT 1 puff as needed Inhalation every 4 hrs Active Comment on above: Inhale 2 Puffs as in structed four times daily. aspirin 81 mg oral tablet (17 sources) Platelet Aggregation Inhibitor, Nonsteroidal Anti-inflammatory Drug Start: 03-20-2023 take 81 mg by mouth once daily Aspirin Active 81 MG PO Daily March 20, 2023 12:00am take 1 tablet by mouth once catracho y aspirin 81 mg chewable tablet Take 81 mg by mouth once daily. 0 Active Aspirin EC 81 MG TBEC TAKE 1 TABLET DAILY. Quantity: 90 Refills: 3 Ordered: 19-Jul-2022 DO Active Comment on above: Take 81 mg by mouth once daily. Calcium (2 sources) Phosphate Binder, Calcium Start: 03-20-2023 take 300 mg by mouth two times weekly Calcium Active 300 MG PO Twice a Week March 20, 2023 12:00am carvedilol 12.5 mg oral tablet (14 sources) alpha-Adrenergic Kofi, beta-Adrenergic Kofi Start: 03-26-2023 take 12.5 mg by mouth twice daily Carvedilol Active 12.5 MG PO Twice daily March 26, 2023 12:00am Start: 03-07-2023 End: 03-26-2023 take 1 tablet by mouth twice daily carvedilol (COREG) 25 mg tablet Take 25 mg by mouth two times a day. 0 03/07/2023 Active take 2 tablets by mo [facility] every twelve hours Carvedilol 6.25 MG 2 tablets Orally Twice a day Active Comment on above: Take 25 mg by mouth two times a day. cholecalciferol 0.05 mg oral tablet (9 sources) Vitamin D Start: 03-20-20 take 1 tablet by mouth once daily Cholecalciferol (Vitamin D3) (Vitamin D3) 50 mcg (2,000 unit) Tablet Active 50 MCG PO Daily March 20, 2023 12:00am take 1 capsule by [facility] every twenty-four hours Vitamin D3 1000 UNIT 1 capsule Orally Once a day Active take 1 capsule by mouth once bunny ly Vitamin D3 50 MCG (1999) Oral Capsule TAKE 1 CAPSULE Daily Quantity: 0 Refills: 0 Ordered: 19-Jul-2022 DO Active L.Acid-L.Rham-B.Breve-S.Ther m (1 source) Start: 03-20-2023 take 1 tablet by mouth two times weekly L.Acid-L.Rham-B.Breve-S.Therm Active 1 TAB PO Twice a Week March 20, 2023 12:00am L.Acid-L.Rham-B.Breve-S.Ther m (Probiotic) 3 billion cell Tablet,Chewable (1 source) Start: 03-20-2023 take 3 tablets by mouth two times weekly L.Acid-L.Rham-B.Breve-S.Therm (Probiotic) 3 billion cell Tablet,Chewable Active 1 TAB PO Twice a Week March 20, 2023 12:00am loratadine 10 mg oral tablet (5 sources) Start: 03-20-2023 take 1 tablet by mouth once daily Loratadine (Claritin) 10 mg Tablet Active 10 MG PO Daily March 20, 2023 12:00am Magnesium (5 sources) Start: 03-20-2023 take 250 mg by mouth once daily Magnesium Active 250 MG PO Daily March 20, 2023 12:00am take 1 tablet by mouth once catracho y Magnesium 250 MG 1 tablet with a meal Orally Once a day Active metFORMIN hydrochloride 1000 mg oral tablet (17 sources) Biguanide Start: 03-20-2023 take 1000 mg by mouth once daily Metformin Active 1000 MG PO Daily March 20, 2023 12:00am Start: 03-07-2023 take 1 tablet by [facility] twice daily metFORMIN (GLUCOPHAGE) 1,000 mg tablet Take 1,000 mg by mouth two times a day. 0 03/07/2023 Active Start: 04-12-2022 take 2 tablets by mo [facility] once daily metFORMIN HCl - 1000 MG Oral Tablet TAKE 2 TABLET Daily Quantity: 0 Refills: 0 Ordered: 12-Apr-2022 DO Start : 12-Apr-2022 Active Comment on above: Take 1,000 mg by [facility] two times a day. Oxybutinin XL 5mg (3 sources) Oxybutinin XL 5m g 2 tablets orally at night Active oxybutynin chloride 5 mg oral tablet (6 sources) Cholinergic Muscarinic Antagonist Start: 03-20-2023 take 5 mg by mouth twice daily Oxybutynin Chloride Active 5 MG PO Twice daily March 20, 2023 12:00am Start: 02-10-2021 take 2 tablets by mo [facility] once daily oxyBUTYnin Chloride 5 MG Oral Tablet TAKE 2 TABLET BY MOUTH ONCE A DAY Quantity: 60 Refills: 0 Ordered: 12-Oct-2021 DO Start : 10-Feb-2021 Active potassium gluconate 2.5 meq oral tablet (9 sources) Start: 03-20-2023 take 595 mg by mouth once daily Potassium Gluconate Active 595 MG PO Daily March 20, 2023 12:00am take 1 capsule by [facility] once daily at mealtime Potassium Gluconate 595 MG 1 capsule wit h food Orally Once a day Active take 1 tablet by mouth once catracho y Potassium Gluconate 595 (99 K) MG Oral Tablet TAKE 1 TABLET DAILY. Quantity: 0 Refills: 0 Ordered: 19-Jul-2022 DO Active probiotic (3 sources) probiotic as dir ected Active Completed/Discontinued Medications Medication Drug Class(es) Dates Sig (Normalized) Sig (Original) ALPRAZolam 0.25 mg oral tablet (4 sources) Benzodiazepine Start: 06-28-2022 take 1 tablet by mouth once daily as needed ALPRAZolam 0.25 MG Oral Tablet TAKE 1 TABLET BY MOUTH ONCE A DAY NEEDED Quantity: 30 Refills: 0 Ordered: 28-Jun-2022 DO Start : 28-Jun-2022 Active calcium carbonate 1250 mg chewable tablet (11 sources) take 1 tablet by mouth once daily calcium carbonate 500 mg calcium (1,250 mg) chewable tablet Take 500 mg by mouth once daily. 0 Active take 1 tablet by mouth every twe lve hours Calcium 500 MG 1 tablet with meals Orally Twice a day Active Comment on above: Take 500 mg by mouth once daily. clopidogrel 75 mg oral tablet (13 sources) P2Y12 Platelet Inhibitor Start: 2022 take 1 tablet by mouth once daily clopidogrel (PLAVIX) 75 mg tablet Take 1 tablet by mouth once daily. 0 03/07/2023 Active Comment on above: Take 1 tablet by [facility] once daily. 0.5 ml dulaglutide 1.5 mg/ml auto-injector (13 sources) GLP-1 Receptor Agonist Start: 2022 inject 0.5 mL by subcutaneous injection every week TRULICITY 0.75 mg/0.5 mL pen injector Inject 0.5 mL subcutaneously one time a week. 0 03/25/2023 Active Comment on above: Inject 0.5 mL subcut aneously one time a week. empagliflozin 10 mg oral tablet (17 sources) Sodium-Glucose Cotransporter 2 Inhibitor Start: 2021 take 1 tablet by mouth once daily JARDIANCE 10 mg tablet Take 1 tablet by mouth once daily. 0 03/07/2023 Active Comment on above: Take 1 tablet by [facility] th once daily. ezetimibe 10 mg oral tablet (17 sources) Dietary Cholesterol Absorption Inhibitor Start: 2021 take 1 tablet by mouth once daily ezetimibe (ZETIA) 10 mg tablet Take 1 tablet by mouth once daily. 0 03/07/2023 Active Comment on above: Take 1 tablet by [facility] th once daily. ibuprofen 800 mg oral tablet (17 sources) Nonsteroidal Anti-inflammatory Drug Start: 2022 End: 2022 take 1 tablet by mouth once daily Ibuprofen (Motrin) 800 mg Tablet Discontinued 800 MG PO Daily March 20, 2023 12:00am March 26, 2023 1:03pm Start: 08-16-2021 take 1 tablet by [facility] th every six hours as needed IBU 800 mg tablet Take 800 mg by mouth four times a day as needed. 0 03/07/2023 Active take 1 tablet by wayne th every eight hours at mealtime as needed Ibuprofen 800 MG 1 tablet with food or milk as needed Orally every 8 hrs Not-Taking Comment on above: Take 800 mg by mouth four times a day as needed. lisinopril 20 mg oral tablet (13 sources) Angiotensin Converting Enzyme Inhibitor Start: take 1 tablet by mouth once daily lisinopril (ZESTRIL) 20 mg tablet Take 1 tablet by mouth once daily. 0 03/07/2023 Active Comment on above: Take 1 tablet by [facility] th once daily. magnesium oxide 420 mg oral tablet (4 sources) take 1 tablet by mouth once daily Magnesium Oxide -Mg Supplement 420 (252 Mg) MG Oral Tablet Take 1 tablet daily Quantity: 0 Refills: 0 Ordered: 19-Jul-2022 DO Active rivaroxaban 2.5 mg oral tablet (13 sources) Factor Xa Inhibitor Start: 3 End: 3 Rivaroxaban (Xarelto) 2.5 mg tablet Discontinued 0 .ROUTE .COMPLEX March 20, 2023 12:00am March 26, 2023 1:03pm patient stopped medication 03/14/23, plans to start after surgery oct 6 Start: 03-06-2023 take 1 tablet by [facility] th twice daily XARELTO 2.5 mg tablet Take 2.5 mg by mouth two times a day. 0 03/06/2023 Active Comment on above: Take 2.5 mg by mouth two times a day. varenicline 1 mg oral tablet (10 sources) Partial Cholinergic Nicotinic Agonist Start: 3 End: 3 take 1 mg by mouth once daily Varenicline Discontinued 1 MG PO Daily March 20, 2023 12:00am March 26, 2023 1:06pm Start: 03-09-2023 take 1 tablet by wayne th every twelve hours varenicline (CHANTIX) 1 mg tablet Take 1 tablet by mouth every 12 hours. 0 03/09/2023 Active Comment on above: Take 1 tablet by wayne th every 12 hours. Varenicline Tartrate 0.5 MG X 11 & 1 MG X 42 Oral Tablet Therapy Pack (2 sources) Start: 05-08-20 Varenicline Tartrate 0.5 MG X 11 & 1 MG X 42 Oral Tablet Therapy Pack as directed Quantity: 0 Refills: 0 Ordered: 08-May-2022 DO Start : 08-May-2022 Active Varenicline Tartrate 0.5 MG X 11 & 1 MG X 42 TBPK (2 sources) Start: 05-08-20 Varenicline Tartrate 0.5 MG X 11 & 1 MG X 42 TBPK as directed Quantity: 0 Refills: 0 Ordered: 08-May-2022 DO Start : 08-May-2022 Active 24 hr venlafaxine 75 mg extended release oral capsule (17 sources) Serotonin and Norepinephrine Reuptake Inhibitor Start: 04-12-20 take 1 capsule by mouth once daily venlafaxine ER (EFFEXOR XR) 75 mg 24 hr capsule Take 1 capsule by mouth once daily. 0 03/07/2023 Active take 1 tablet by [facility] th every twenty-four hours Venlafaxine HCl 75 MG 1 tablet with food Orally Once a day Active Comment on above: Take 1 capsule by [facility] once daily. Problems Active Problems Problem Classification Problem Date Documented Da te Episodic/Chronic Asthma (1 source) Unspecified asthma, uncomplicated; Translations: [UNSPECIFIED ASTHMA UNCOMPLICATED] Onset: 07-10-2022 Chronic Cardiac dysrhythmias (1 source) Atrial premature depolarization; Translations: [ATRIAL PREMATURE DEPOLARIZATION] Onset: 05-26-2022 Chronic Chronic ulcer of skin (2 sources) Non-pressure chronic ulcer of skin of other sites with fat layer exposed; Translations: [Non-pressure chronic ulcer of right heel and midfoot limited to breakdown of skin] Onset: 07-10-2022 Chronic Coronary atherosclerosis and other heart disease (8 sources) Multi vessel coronary artery disease; Translations: [Atherosclerotic heart disease of havasupai coronary artery without angina pectoris] Onset: 04-03-2023 04-26-2023 Chronic Coronary atherosclerosis and other heart disease (2 sources) Past history of procedure; Translations: [Coronary angioplasty status] Onset: 06-14-2023 06-03-2023 Episodic Diabetes mellitus with complications (10 sources) Type 2 diabetes mellitus with hyperglycemia; Translations: [Type 2 diabetes mellitus with foot ulcer] Onset: 05-29-2022 Chronic Diabetes mellitus without complication (8 sources) Diabetes mellitus without complication; Translations: [Diabetes mellitus without mention of complication, type II or unspecified type, not stated as uncontrolled] Onset: 09-10-2022 Chronic Disorders of lipid metabolism (12 sources) Hyperlipidemia; Translations: [Other and unspecified hyperlipidemia] Onset: 07-10-2022 Chronic Essential hypertension (9 sources) Hypertensive disorder; Translations: [Essential (primary) hypertension] Onset: 06-14-2023 Chronic Mood disorders (1 source) Major depressive disorder, single episode, unspecified; Translations: [GARRETT DEPRESS D/O SINGLE EPIS UNS] Onset: 06-02-2022 Chronic Other circulatory disease (1 source) History of insertion of iliac stent; Translations: [Presence of other vascular implants and grafts] 06-03-2023 Chronic Other circulatory disease (1 source) Presence of other vascular implants and grafts; Translations: [S/P insertion of iliac artery stent] Onset: 06-14-2023 Chronic Other circulatory disease (5 sources) Other specified symptoms and signs involving the circulatory and respiratory systems; Translations: [OTH SPEC SX SIGNS INVLV CIRC RS] Onset: 05-24-2022 Episodic Other lower respiratory disease (2 sources) Shortness of breath; Translations: [SOB (shortness of breath)] Onset: 05-28-2023 Episodic Other lower respiratory disease (1 source) Dyspnea; Translations: [Shortness of breath] 05-28-2023 Episodic Other nutritional; endocrine; and metabolic disorders (4 sources) Obesity; Translations: [Obesity, unspecified] Chronic Other nutritional; endocrine; and metabolic disorders (5 sources) Morbid obesity; Translations: [Morbid (severe) obesity due to excess calories] Onset: 05-13-2023 05-13-2023 Chronic Other screening for suspected conditions (not mental disorders or infectious disease) (11 sources) Encounter for screening mammogram for malignant neoplasm of breast; Translations: [Electrocardiogram abnormal] Onset: 05-25-2022 Episodic Other skin disorders (4 sources) Localized swelling, mass and lump, neck; Translations: [LOCALIZED SWELLING MASS AND LUMP NECK] Onset: 10-01-2022 Episodic Peripheral and visceral atherosclerosis (15 sources) Peripheral vascular disease, unspecified; Translations: [PAD (peripheral artery disease)] Onset: 07-10-2022 Chronic Residual codes; unclassified (1 source) Other general symptoms and signs; Translations: [OTHER GENERAL SYMPTOMS AND SIGNS] Onset: 08-26-2022 Episodic Residual codes; unclassified (1 source) Tobacco use Episodic Screening and history of mental health and substance abuse codes (5 sources) Ex-smoker; Translations: [Personal history of tobacco use] Onset: 05-26-2022 Episodic Substance-related disorders (7 sources) Nicotine dependence, unspecified, uncomplicated; Translations: [Nicotine dependence, cigarettes, uncomplicated] Onset: 05-11-2022 Chronic Unclassified (3 sources) CONTACT W/AND (SUSP) EXPOS COVID-19; Translations: [CONTACT W/AND (SUSP) EXPOS COVID-19] Onset: 01-31-2022 Unclassified (1 source) Encounter for preprocedural laboratory examination; Translations: [Encounter for preprocedural laboratory examination] Onset: 03-20-2023 Past or Other Problems Problem Classification Problem Date Documented Da te Episodic/Chronic Nonspecific chest pain (4 sources) Chest pain, unspecified; Translations: [CHEST PAIN UNSPECIFIED] Onset: 05-28-2022 Episodic Other connective tissue disease (1 source) Pain in right foot; Translations: [PAIN IN RIGHT FOOT] Onset: 05-29-2022 Episodic Other lower respiratory disease (1 source) Dyspnea, unspecified; Translations: [DYSPNEA UNSPECIFIED] Onset: 06-02-2022 Episodic Residual codes; unclassified (1 source) Family history of malignant neoplasm of trachea, bronchus and lung; Translations: [FAM HX MALIG NEOPLSM TRACH BRON LNG] Onset: 05-31-2022 Episodic Residual codes; unclassified (1 source) Family history of malignant neoplasm of breast; Translations: [FAMILY HX MALIG NEOPLASM OF BREAST] Onset: 05-31-2022 Episodic Unclassified (1 source) CONTACT W/AND (SUSP) EXPOS COVID-19; Translations: [CONTACT W/AND (SUSP) EXPOS COVID-19] Onset: 01-29-2022 Results Test Name Value Interpretation Reference Range Facility CNOVon 06-14-2023 CNOV Office Visit (TOMN ) -- ELIZABETH QUEZADA ([id number]) 1960 F Date Time Provider Department 06/14/23 4:00 PM WILLEM MONTILLA [facility] During your visit today, we recorded the following information about you: Willem Montilla MD 06/14/2023 5:24 PM Signed Heart, Vascular and Thoracic Section DEPARTMENT OF CARDIAC SURGERY OUTPATIENT VISIT DATE June 14, 2023 OUTPATIENT VISIT SERVICE DATE: 06/14/2023 SERVICE TIME: 5:20 PM PCP: Nano Muhammad [address] [place] [address] Referring Physician: Willem Montilla [id number] [facility] [id number] Patient Type: New Visit to Determine Surgery: Yes HPI: Ms. Elizabeth Quezada is a 63 year old female seen regarding candidacy for cardiac surgery. She has severe PVD a with rest claudications and foot ulcers. nShewas incidentally found to have CAD. Her BITAs are large, up to 5cm and may be important collaterals to the legs. She is an active smoker unfortunately sp iliac stentings, HTN, and diabetes, and COPD. Last CT Result Conclusion CT CHEST CARDIAC WO IVCON Exam End: 06/14/2023 7:43 AM (Final result) Impression: IMPRESSION: Normal caliber thoracic aorta with scattered mild calcified wall changes, including sinotubular junction and proximal ascending. Coronary artery calcific changes Tobacco exposure related changes of lungs and airways. Part solid opacity in RIGHT lung abutting major fissure, could be postinflammatory however remains indeterminate. Additional centrilobular nodules in the apices, most likely bronchiolitis. Consider follow-up Chest CT in 3-6 months and/or consultation with nodule clinic. ACTIONABLE RESULT: FOLLOW-UP Acuity: Actionable Findings: Thoracic-Lung nodules Routing code: RI_1 Recommendation: Unlisted Recommendation (see report) Time Frame: 3-6 months COMMUNICATION: Results will be communicated with the ordering provider via goviral staff message or phone message by [facility] within 2 business days of report finalization. --END OF FINDING-- Fermenter Wine: CHRISTOPHER Transcribe Date/Time: Jun 14 2023 9:34A Dictated by : TIARA HARTLEY MD This examination was interpreted and the report reviewed and electronically signed by: TIARA HARTLEY MD on Jun 14 2023 1:35PM EST Last ECHO Result Conclusion ECHO Collected: 05/28/2023 11:24 AM (Final result) Impression: CONCLUSIONS: - Exam indication: CAD - The left ventricle is normal in size. Left ventricular systolic function is normal. EF = 61 ? 5% (2D biplane) Grade I left ventricular diastolic dysfunction. - The right ventricle is normal in size. Right ventricular systolic function is normal. - The patient has not had a prior CC echocardiographic exam for comparison. * * * Final * * * Impression: Incidental CAD in the contexty of enlarged CHUCKY and critical limb ischemia. Plan: Discussed with patient and vascular surgery. Recommended CTA C/A/P and cessation of smoking and reevaluate after that. These findings will be communicated back to the requesting physician via electronic medical record Willem Montilla MD Referring Provider: WILLEM MONTILLA [[id number]] Allergies As of Date: 06/14/2023 Noted Allergy Reaction TETRACYCLINE 09/27/2022 16 - Unknown 8 - GI Upset Januvia (SITAGLIPTIN) 06/24/2019 16 - Unknown ROSUVASTATIN 06/24/2019 16 - Unknown ALLERG XT,D.FARINAE-D.PTERONYS 07/19/2022 9 - Itching CAT HAIR STANDARDIZED ALLERGENIC *09/27/2022 9 - Itching Comments: sneezing HOUSE DUST 07/19/2022 9 - Itching Date Reviewed: 06/14/2023 Reviewed by: Cyndi Haynes LPN - Fully Assessed Visit Diagnoses: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 ([facility]) [I25.119] PAD (peripheral artery disease) ([facility]) [I73.9] S/P insertion of iliac artery stent [Z95.828] Current smoker [F17.200] Primary hypertension [I10] Coronary angioplasty status [Z98.61] Morbid obesity ([facility]) [E66.01] Order(s):CARDIOTHORACIC PREOP EVALUATION [] Order #: [id number]: 1 Prescriptions as of 06/14/2023 - aspirin 81 mg chewable tablet Take 81 mg by mouth once daily. - VENTOLIN HFA 90 mcg/actuation inhaler Inhale 2 Puffs as instructed four times daily. - calcium carbonate 500 mg calcium (1,250 mg) chewable tablet Take 500 mg by mouth once daily. - carvedilol (COREG) 25 mg tablet Take 25 mg by mouth two times a day. - clopidogrel (PLAVIX) 75 mg tablet Take 1 tablet by mouth once daily. - TRULICITY 0.75 mg/0.5 mL pen injector Inject 0.5 mL subcutaneously one time a week. - JARDIANCE 10 mg tablet Take 1 tablet by mouth once daily. - ezetimibe (ZETIA) 10 mg tablet Take 1 tablet by mouth once daily. - IBU 800 mg tablet Take 800 mg by mouth four times a day as needed. - li (more content not included)... Normal [facility] CT CHEST CARDIAC WO IVCONon 12-22-2023 CT CHEST CARDIAC WO IVCON * * *Final Report* * * DATE OF EXAM: Jun 14 2023 7:43AM [facility] 2055 - CT CHEST CARDIAC WO IVCON / PROCEDURE REASON: multiple diagnoses * * * * Physician Interpretation * * * * CT Aorta chest Direct Image Comparison: None available HISTORY: 63 years old Female with h/o severe Pad, multivessel CAD . Smoker, Type 2 DM Evaluation for further treatment options, including cardiothoracic surgery. There is request to define thoracic and aortic anatomy TECHNIQUE: SCANNER: Multi-detector scanner PROTOCOL: Prospectively triggered helical high-pitch acquisitions ( triggered Flash-mode ) was performed without intravenous administration of contrast material. Scan Range: thoracic inlet to the diaphragm CT Dose-Length Product (DLP): 219 mGy*cm CT Dose Reduction Employed: Automated exposure control(AEC) and iterative recon CONTRAST: None Scan acquisition: uncomplicated Macro Version: [id number] For optimization of anatomic evaluation postprocessing was performed on a dedicated workstation by the interpreting physician. STUDY LIMITATIONS: None. RESULT: LINES, TUBES and DEVICES: None CHEST: Chest wall anatomy: Thyroid tissue is heterogeneous in attenuation with few interspersed calcified nodules, LEFT lobe noted to extend to thoracic inlet and abut the esophagus LUNGS: Centrilobular nodules with apical predominance Diffuse airways thickening oblong part solid opacity abutting the RIGHT major fissure series 4 image 95, measures approximately 1.3 cm. MEDIASTINUM: unremarkable. PERICARDIUM: unremarkable CENTRAL PULMONARY ARTERY: normal dimensions. Assessment is limited due to lack of contrast enhancement. CARDIAC CHAMBERS: assessment is limited in the non-contrast study. LEFT VENTRICLE: normal size. Right ventricle: normal size Left atrium: normal size. ISAIAH: assessment is limited in the non-contrast study. Right atrium: normal size CENTRAL VENOUS and PULMONARY VENOUS RETURN: appears normal within limitations of non-contrast study. Coronary Sinus: normal size MITRAL and TRICUSPID VALVE: assessment is limited in the current study - no leaflet calcification. No annular calcification PULMONIC VALVE: assessment is limited in the current study. No leaflet calcification CORONARY ANATOMY: normal origin of the coronary arteries. Calcified atherosclerotic changes of the coronary arteries, precluding precise assessment with CT. AORTIC VALVE: assessment is limited in the current study. No leaflet calcification. AORTA: Pathology: assessment for acute aortic pathology is limited in the non-contrast study. Intervention: None Complications: n/a Aortic Size: Normal size thoracic aorta. STJ: maintained Wall Changes: scattered mild calcified wall changes. Mild calcified wall changes ascending aorta. Noncalcified component of atheromatous also suggested Arch Branch Vessels: Normal size proximal segments of the arch branch vessels, with mild calcified wall changes. AORTIC DIMENSIONS: AORTIC ROOT: 2.9 cm measured [id number] mid ASCENDING THORACIC AORTA: 3.5 cm mid AORTIC ARCH: 2.8 cm mid DESCENDING THORACIC AORTA: 2.4 cm limited upper ABDOMEN: unremarkable BONES: degenerative changes of the thoracic spine. Research Professional (topogram) images: Degenerative change lumbar spine . IMPRESSION: Normal caliber thoracic aorta with scattered mild calcified wall changes, including sinotubular junction and proximal ascending. Coronary artery calcific changes Tobacco exposure related changes of lungs and airways. Part solid opacity in RIGHT lung abutting major fissure, could be postinflammatory however remains indeterminate. Additional centrilobular nodules in the apices, most likely bronchiolitis. Consider follow-up Chest CT in 3-6 months and/or consultation with nodule clinic. ACTIONABLE RESULT: FOLLOW-UP Acuity: Actionable Findings: Thoracic-Lung nodules Routing code: [email or web address] Recommendation: Unlisted Recommendation (see report) Time Frame: 3-6 months COMMUNICATION: Results will be communicated with the ordering provider via goviral staff message or phone message by [facility] within 2 business days of report finalization. --END OF FINDING-- Fermenter Wine: CHRISTOPHER Transcribe Date/Time: Jun 14 2023 9:34A Dictated by : TIARA HARTLEY MD This examination was interpreted and the report reviewed and electronically signed by: TIARA HARTLEY MD on Jun 14 2023 1:35PM EST [id number] ACTIONABLE Invalid Interpretation Code [facility] PVR LEG LOVE VAS LABon 2022 PVR LEG LOVE VAS LAB Non-Invasive Vascula r Laboratory [facility] F30 Lower Extremity Arterial Physiology Study Bilateral/Complete Date of service/time: 06/14/2023 1:24:05 PM Name: MS. ELIZABETH QUEZADA Date of : 1960 Age: 63 years Gender: F Clinical Indication Peripheral arterial disease and history of iliac artery stenting 11/28/2022. TECHNIQUE -------- An arterial physiological examination was performed, including measurement of blood pressures using continuous wave Doppler and recording of plethysmographic with or without Doppler waveforms at the below-mentioned limb segments. FINDINGS -------- RIGHT SIDE AT REST Right Pressures Brachial: 149 mmHg High thigh: 159 mmHg Low thigh: 116 mmHg Calf: 92 mmHg Ankle dorsalis pedis: 67 mmHg DEYANIRA: 0.45 Ankle posterior tibial: 94 mmHg DEYANIRA: 0.63 Right PVR Waveforms High thigh: Normal. Low thigh: Mildly dampened. Calf: Moderately dampened. Ankle: Moderately dampened. Transmetatarsal: Moderately dampened. Digit: Moderately dampened. LEFT SIDE AT REST Left Pressures Brachial: 133 mmHg High thigh: 145 mmHg Low thigh: 112 mmHg Calf: 86 mmHg Ankle dorsalis pedis: 78 mmHg DEYANIRA: 0.52 Ankle posterior tibial: 85 mmHg DEYANIRA: 0.57 Left PVR Waveforms High thigh: Mildly dampened. Low thigh: Mildly dampened. Calf: Moderately dampened. Ankle: Moderately dampened. Transmetatarsal: Moderately dampened. Digit: Moderately dampened. IMPRESSION RIGHT SIDE Resting right ankle brachial index: 0.63 Abnormal ankle brachial index at rest diagnostic of peripheral artery disease. Right ankle: Moderate disease at rest. Right superficial femoral disease. Right distal superficial femoral and/or popliteal disease. LEFT SIDE Resting left ankle brachial index: 0.57 Abnormal ankle brachial index at rest diagnostic of peripheral artery disease. Left ankle: Moderate disease at rest. Left iliofemoral disease. Left superficial femoral disease. Left distal superficial femoral and/or popliteal disease. Technologist: Donna Kunz T Ordering physician: PAPA SANTIAGO Interpreting physician: Tiara Barker DO Final CC [facility] : [id number] icsSISUID See Link below for Image Normal [facility] CAROTID ARTERIES LOVE VAS LABon 06-14-2023 CAROTID ARTERIES LOVE VAS LAB Non-Invasive Vascular Laboratory [facility] J35 Carotid Duplex Bilateral/Complete Date of service/time: 06/14/2023 8:26:20 AM Name: MS. ELIZABETH QUEZADA Date of : 1960 Age: 63 years Gender: F Medical History Tobacco: Current Clinical Indication Pre op for cardiac surgery. TECHNIQUE -------- A carotid duplex ultrasound examination was performed, including grayscale imaging and color Doppler and spectral Doppler examination of the below mentioned arteries. FINDINGS -------- RIGHT SIDE Common carotid artery: Proximal: PSV: 90 cm/s. EDV: 21 cm/s. Mid: PSV: 99 cm/s. EDV: 17 cm/s. Distal: PSV: 90 cm/s. EDV: 17 cm/s. Mild homogeneous plaque at distal. Internal carotid artery: Origin: PSV: 78 cm/s. EDV: 17 cm/s. Proximal: PSV: 109 cm/s. EDV: 22 cm/s. Mid: PSV: 69 cm/s. EDV: 17 cm/s. Distal: PSV: 65 cm/s. EDV: 22 cm/s. Mild heterogeneous plaque at origin. Moderate heterogeneous plaque at proximal. ICA/CCA Ratio: 1.2 External carotid artery: Proximal: PSV: 140 cm/s. EDV: 20 cm/s. Mild heterogeneous plaque at origin. Subclavian artery: Proximal: PSV: 251 cm/s. EDV: 0 cm/s. Mild heterogeneous plaque at proximal. Vertebral artery: PSV: 49 cm/s. EDV: 11 cm/s. LEFT SIDE Common carotid artery: Proximal: PSV: 125 cm/s. EDV: 21 cm/s. Mid: PSV: 132 cm/s. EDV: 25 cm/s. Distal: PSV: 86 cm/s. EDV: 21 cm/s. Mild heterogeneous plaque at distal. Internal carotid artery: Origin: PSV: 113 cm/s. EDV: 33 cm/s. Proximal: PSV: 101 cm/s. EDV: 26 cm/s. Mid: PSV: 91 cm/s. EDV: 24 cm/s. Distal: PSV: 108 cm/s. EDV: 36 cm/s. Mild heterogeneous plaque at origin. ICA/CCA Ratio: 1.3 External carotid artery: Origin: PSV: 279 cm/s. EDV: 24 cm/s. Moderate heterogeneous plaque at origin. Subclavian artery: Proximal: PSV: 100 cm/s. EDV: 0 cm/s. Vertebral artery: Proximal: PSV: 16 cm/s. EDV: 8 cm/s. IMPRESSION RIGHT SIDE Common carotid artery: Plaque visualized without evidence of hemodynamically significant stenosis. Internal carotid artery: 40-59% stenosis. Tortuous vessel at mid . Vertebral artery: Patent and antegrade flow noted. Innominate artery: Not visualized due to anatomy. Subclavian artery: Plaque visualized without evidence of hemodynamically significant stenosis. LEFT SIDE Common carotid artery: Plaque visualized without evidence of hemodynamically significant stenosis. Internal carotid artery: 40-59% stenosis. Vertebral artery: Patent and antegrade flow noted. Abnormal signal suggests pre-steal. Subclavian artery: Patent. Technologist: Francia Francois RVT Ordering physician: WILLEM MONTILLA Interpreting physician: Patrizia Washburn MD, RPVI Final CC [facility] : [id number] See Link below for Image Normal [facility] LEG VEIN MAP LOVE VAS LABo n 06-14-2023 US LEG VEIN MAP LOVE VAS LAB Non-Invasive Vascular Laboratory [facility] J35 Lower Extremity Vein Mapping Bilateral/Complete Date of service/time: 06/14/2023 9:39:59 AM Name: MS. ELIZABETH QUEZADA Date of : 1960 Age: 63 years Gender: F Clinical Indication Pre-op open heart surgery. FINDINGS -------- RIGHT Great saphenous vein: Saphenofemoral junction: 8.3 mm Proximal thigh: 5.0 mm Mid thigh: 4.2 mm Distal thigh: 4.1 mm Knee: 3.1 mm Proximal calf: 3.7 mm Mid calf: 2.1 mm Distal calf: 3.2 mm Small saphenous vein: Proximal calf: 3.0 mm Mid calf: 3.7 mm Distal calf: 3.3 mm LEFT Great saphenous vein: Saphenofemoral junction: 7.1 mm Proximal thigh: 6.6 mm Mid thigh: 4.7 mm Distal thigh: 3.9 mm Knee: 3.9 mm Proximal calf: 4.0 mm Mid calf: 4.3 mm Distal calf: 3.8 mm Small saphenous vein: Proximal calf: 3.0 mm Mid calf: 2.4 mm Distal calf: 3.4 mm IMPRESSION RIGHT Great saphenous vein: Patent with measurements as indicated above. Branches noted at the proximal thigh, at the mid thigh, at the distal thigh, at the knee, at the proximal calf and at the mid calf. Small saphenous vein: Patent with measurements as indicated above. Branches noted at the mid calf and at the distal calf. LEFT Great saphenous vein: Patent with measurements as indicated above. Branches noted at the proximal thigh, at the mid thigh, at the distal thigh, at the knee and at the proximal calf. Small saphenous vein: Patent with measurements as indicated above. Branches noted at the mid calf. Technologist: Francia Francois RVT Ordering physician: WILLEM MONTILLA Interpreting physician: Patrizia Washburn MD, DEA Final CC [facility] : [id number] See Link below for Image Normal [facility] US MAMMARY ARTERY LOVE VAS LA Bon 06-14-2023 US MAMMARY ARTERY LOVE VAS LAB Non-Invasive Vascular Laboratory [facility] J35 Artery Mapping Study Bilateral/Complete Date of service/time: 06/14/2023 9:17:54 AM Name: MS. ELIZABETH QUEZADA Date of : 1960 Age: 63 years Gender: F Clinical Indication Pre-op open heart surgery. FINDINGS -------- Right systolic blood pressure: 124 mmHg Left systolic blood pressure: 121 mmHg RIGHT Mammary artery Proximal: 4.4 mm. PSV 153 cm/s. EDV 16 cm/s. Multiphasic waveform. Mid: 3.9 mm. PSV 112 cm/s. EDV 14 cm/s. Multiphasic waveform. Distal: 5.4 mm. PSV 95 cm/s. EDV 11 cm/s. Multiphasic waveform. LEFT Mammary artery Proximal: 3.9 mm. PSV 106 cm/s. EDV 14 cm/s. Multiphasic waveform. Mid: 4.0 mm. PSV 71 cm/s. EDV 13 cm/s. Multiphasic waveform. Distal: 4.8 mm. PSV 67 cm/s. EDV 10 cm/s. Multiphasic waveform. IMPRESSION No significant discrepancy in brachial systolic blood pressure measurements from right to left sides. RIGHT Measurements listed above; patent mammary artery. Homogenous plaque noted at distal right internal mammary artery. LEFT Measurements listed above; patent mammary artery. Homogenous plaque noted at proximal and mid left internal mammary artery. Technologist: Francia Francois T Ordering physician: WILLEM MONTILLA Interpreting physician: Patrizia Washburn MD, RPVI Final CC [facility] : [id number] See Link below for Image Normal [facility] US RADIAL ARTERY MAP LOVE VAS LABon 06-14-2023 US RADIAL ARTERY MAP LOVE VAS LAB Non-Invasive Vascular Laboratory [facility] J35 Artery Mapping Study Bilateral/Complete Date of service/time: 06/14/2023 10:24:15 AM Name: MS. ELIZABETH QUEZADA Date of : 1960 Age: 63 years Gender: F Clinical Indication Pre op for cardiac surgery. FINDINGS -------- RIGHT Radial artery Origin: 4.5 mm. PSV 81.0 cm/s. EDV 11.0 cm/s. Proximal: 2.9 mm. PSV 76 cm/s. EDV 13 cm/s. Mid: 2.7 mm. PSV 77 cm/s. EDV 10 cm/s. Distal: 2.8 mm. PSV 76 cm/s. EDV 12 cm/s. Brachial artery at distal: PSV 122 cm/s. EDV 0 cm/s. Multiphasic waveform. Ulnar artery at distal: 2.7 mm. PSV 36 cm/s. EDV 0 cm/s. Multiphasic waveform. LEFT Radial artery Distal: PSV 51 cm/s. EDV 7 cm/s. Multiphasic waveform. IMPRESSION RIGHT Measurements listed above; patent brachial artery. Measurements listed above; patent radial artery. Measurements listed above; patent ulnar artery. Compression of the radial artery does not compromise flow to the digits. LEFT Measurements listed above; patent radial artery. Compression of the radial artery compromises flow to the digits. Technologist: Francia Francois T Ordering physician: WILLEM MONTILLA Interpreting physician: Patrizia Washburn MD, RPVI Final CC [facility] : [id number] See Link below for Image Normal [facility] 06-10-2023 Reminders - From: Celia Donohue LPN To: N - Clinical; Sent: 06/10/2023 15:55:47 EST Show up: 04/10/2025 07:00:00 EDT Subject: colonoscopy recall Due Date/Time: 05/11/2025 07:00:00 EST Reminder/Recall Patient due for surveillance colonoscopy 05/11/2025. Patrizia [facility] 05-30-2023 [facility] Telephone ([facility]) -- ELIZABETH QUEZADA ([id number]) 1960 F Date Time Provider Department 05/30/23 WILLEM MONTILLA [facility] During your visit today, we recorded the following information about you: Ghazala Malave RN 06/03/2023 12:26 PM Addendum eval only kris vascular surgery, testing, Dr. Montilla *Please call with date internal referral diagnosis: CAD history: PAD s/p iliac stents November 2022, current smoker, DM2, HTN blood thinners: asa 81, plavix, xarelto, trulicity, jardiance, ibuprofen Eric Sanfordon 06/03/2023 4:34 PM Signed CALLED AND CONFIRMED APPTS W/MRS. QUEZADA VIA PHONE MAILED REMINDER FED EX NEXT DAY 06-03-23 #[id number] Allergies As of Date: 05/30/2023 Noted Allergy Reaction TETRACYCLINE 09/27/2022 16 - Unknown 8 - GI Upset Januvia (SITAGLIPTIN) 06/24/2019 16 - Unknown ROSUVASTATIN 06/24/2019 16 - Unknown ALLERG XT,D.FARINAE-D.PTERONYS 07/19/2022 9 - Itching CAT HAIR STANDARDIZED ALLERGENIC *09/27/2022 9 - Itching Comments: sneezing HOUSE DUST 07/19/2022 9 - Itching Date Reviewed: 05/28/2023 Reviewed by: Martin Garnett MA - Fully Assessed Reason for Visit: Referral Information [4063] New Patient Evaluation [154] Primary Visit Diagnosis: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 (HCC) [I25.119] Other Visit Diagnoses:PAD (peripheral artery disease) (HCC) [I73.9] S/P insertion of iliac artery stent [Z95.828] Current smoker [F17.200] Primary hypertension [I10] Coronary angioplasty status [Z98.61] Order(s):CARDIOTHORACIC PREOP EVALUATION [] Order #: [id number]: 1 FUTURE CONSULT TO VASCULAR SURGERY [9042] Order #: [id number]: [address] CHEST CARDIAC WO IVCON [[id number]] Order #: [id number] FUTURE CAROTID ARTERIES LOVE VAS LAB [[id number]] Order #: [id number] FUTURE LEG VEIN MAP LOVE VAS LAB [] Order #: [id number] FUTURE MAMMARY ARTERY LOVE VAS LAB [[id number]] Order #: [id number] FUTURE SPIROMETRY BASELINE ONLY [] Order #: [id number]: 1 FUTURE LUNG DIFFUSION CAPACITY (DLCO) [] Order #: [id number]: 1 FUTURE RADIAL ARTERY MAP LOVE VAS LAB [[id number]] Order #: [id number] FUTURE Prescriptions as of 06/03/2023 - aspirin 81 mg chewable tablet Take 81 mg by mouth once daily. - VENTOLIN HFA 90 mcg/actuation inhaler Inhale 2 Puffs as instructed four times daily. - calcium carbonate 500 mg calcium (1,250 mg) chewable tablet Take 500 mg by mouth once daily. - carvedilol (COREG) 25 mg tablet Take 25 mg by mouth two times a day. - clopidogrel (PLAVIX) 75 mg tablet Take 1 tablet by mouth once daily. - TRULICITY 0.75 mg/0.5 mL pen injector Inject 0.5 mL subcutaneously one time a week. - JARDIANCE 10 mg tablet Take 1 tablet by mouth once daily. - ezetimibe (ZETIA) 10 mg tablet Take 1 tablet by mouth once daily. - IBU 800 mg tablet Take 800 mg by mouth four times a day as needed. - lisinopril (ZESTRIL) 20 mg tablet Take 1 tablet by mouth once daily. - metFORMIN (GLUCOPHAGE) 1,000 mg tablet Take 1,000 mg by mouth two times a day. - varenicline (CHANTIX) 1 mg tablet Take 1 tablet by mouth every 12 hours. - venlafaxine ER (EFFEXOR XR) 75 mg 24 hr capsule Take 1 capsule by mouth once daily. - XARELTO 2.5 mg tablet Take 2.5 mg by mouth two times a day. Problem List As Of Date 05/30/2023 Noted Resolved Morbid obesity (HCC) [E66.01] 05/13/2023 Encounter Status:Closed by GHAZALA MALAVE on 06/03/23 [facility] Telephone ([facility]) -- PILARELIZABETH ([id number]) 1960 F Date Time Provider Department 05/30/23 WILLEM MONTILLA [facility] During your visit today, we recorded the following information about you: Brady, Marla 05/30/2023 10:38 AM Signed IN Allergies As of Date: 05/30/2023 Noted Allergy Reaction TETRACYCLINE 09/27/2022 16 - Unknown 8 - GI Upset Januvia (SITAGLIPTIN) 06/24/2019 16 - Unknown ROSUVASTATIN 06/24/2019 16 - Unknown ALLERG XT,D.FARINAE-D.PTERONYS 07/19/2022 9 - Itching CAT HAIR STANDARDIZED ALLERGENIC *09/27/2022 9 - Itching Comments: sneezing HOUSE DUST 07/19/2022 9 - Itching Date Reviewed: 05/28/2023 Reviewed by: Martin Garnett MA - Fully Assessed Reason for Visit: Insurance Authorization [[id number]] Prescriptions as of 05/30/2023 - aspirin 81 mg chewable tablet Take 81 mg by mouth once daily. - VENTOLIN HFA 90 mcg/actuation inhaler Inhale 2 Puffs as instructed four times daily. - calcium carbonate 500 mg calcium (1,250 mg) chewable tablet Take 500 mg by mouth once daily. - carvedilol (COREG) 25 mg tablet Take 25 mg by mouth two times a day. - clopidogrel (PLAVIX) 75 mg tablet Take 1 tablet by mouth once daily. - TRULICITY 0.75 mg/0.5 mL pen injector Inject 0.5 mL subcutaneously one time a week. - JARDIANCE 10 mg tablet Take 1 tablet by mouth once daily. - ezetimibe (ZETIA) 10 mg tablet Take 1 tablet by mouth once daily. - IBU 800 mg tablet Take 800 mg by mouth four times a day as needed. - lisinopril (ZESTRIL) 20 mg tablet Take 1 tablet by mouth once daily. - metFORMIN (GLUCOPHAGE) 1,000 mg tablet Take 1,000 mg by mouth two times a day. - varenicline (CHANTIX) 1 mg tablet Take 1 tablet by mouth every 12 hours. - venlafaxine ER (EFFEXOR XR) 75 mg 24 hr capsule Take 1 capsule by mouth once daily. - XARELTO 2.5 mg tablet Take 2.5 mg by mouth two times a day. Problem List As Of Date 05/30/2023 Noted Resolved Morbid obesity (HCC) [E66.01] 05/13/2023 Encounter Status:Closed by MARLA BRADY on 05/30/[address] [facility] metabolic 2000 panelon 05-29-2023 Albumin [Mass/Vol] 4.2 g/dL 3.9 - 4.9 g/dL [facility] ALP [Catalytic activity/Vol] 78 U/L 34 - 123 U/L [facility] ALT [Catalytic activity/Vol] 17 U/L 7 - 38 U/L [facility] Anion gap [Moles/Vol] 15 mmol/L 9 - 18 mmol/L [facility] AST [Catalytic activity/Vol] 16 U/L 13 - 35 U/L [facility] Bilirubin [Mass/Vol] 0.2 mg/dL 0.2 - 1 .3 mg/dL [facility] Calcium [Mass/Vol] 10.5 mg/dL High 8.5 - 10. 2 mg/dL [facility] Chloride [Moles/Vol] 100 mmol/L 97 - 10 5 mmol/L [facility] CO2 [Moles/Vol] 21 mmol/L Low 22 - 30 mmol/L [facility] Creatinine [Mass/Vol] 0.82 mg/dL 0.58 - 0.96 mg/dL [facility] Estimated Glomerular Filtration Rate 79 mL/min/1.73m >=60 mL/min/1.7 3m [facility] Glucose [Mass/Vol] 216 mg/dL High 74 - 99 mg/dL [facility] Potassium [Moles/Vol] 4.8 mmol/L 3.7 - 5.1 mmol/L [facility] Protein [Mass/Vol] 6.7 g/dL 6.3 - 8.0 g/dL [facility] Sodium [Moles/Vol] 136 mmol/L 136 - 144 mmol/L [facility] Urea nitrogen [Mass/Vol] 22 mg/dL High 7 - 21 mg/dL [facility] LIPID PANEL, NONFASTINGon Cholesterol [Mass/Vol] 220 mg/dL High <200 mg/dL [facility] HDL Cholesterol, Nonfasting 35 mg/dL Low >39 mg/dL [facility] LDL Cholesterol, Nonfasting [facility] LDL/HDL Ratio, Nonfasting [facility] Non HDL Cholesterol, Nonfasting 185 mg/dL High <130 mg/dL [facility] Total Chol/HDL Ratio, Nonfasting 6.29 mg/dL High <5.10 mg/dL [facility] Triglycerides, Nonfasting 414 mg/dL High <150 mg/dL [facility] VLDL Cholesterol, Nonfasting [facility] CBC panel Auto (Bld)on 05-28 Erythrocyte distribution width (RBC) [Ratio] 13.5 % 11.5 - 15.0 % [facility] Hematocrit (Bld) [Volume fraction] 47.6 % High 36.0 - 46.0 % [facility] Hemoglobin (Bld) [Mass/Vol] 15.6 g/dL High 11.5 - 15.5 g/dL [facility] MCH (RBC) [Entitic mass] 31.1 pg 26.0 - 34.0 pg [facility] MCHC (RBC) [Mass/Vol] 32.8 g/dL 30.5 - 36.0 g/dL [facility] MCV (RBC) [Entitic vol] 94.8 fL 80.0 - 100.0 fL [facility] Nucleated RBC (Bld) [#/Vol] <0.01 k/uL [facility] Platelet mean volume (Bld) [Entitic vol] 9.9 fL 9.0 - 12.7 fL [facility] Platelets (Bld) [#/Vol] 295 10*3/uL 150 - 400 k/uL [facility] RBC (Bld) [#/Vol] 5.02 10*6/uL 3.90 - 5.20 m/uL [facility] WBC (Bld) [#/Vol] 8.12 10*3/uL 3.70 - 11.00 k/uL [facility] Erythrocyte distribution width (RBC) [Ratio] 13.5 % Normal 11.5-15.0 [facility] Comment on above: Order Comment: Speci men Type: BLOOD SPECIMENOrdering Facility: [facility] Address: [address] [place] [address] Performed By: #### 5 8410-2 ####[facility] LABCL[facility] [id number] [place] [address] [place] Hematocrit (Bld) [Volume fraction] 47.6 % High 36.0-46.0 [facility] Comment on above: Order Comment: Speci men Type: BLOOD SPECIMENOrdering Facility: [facility] Address: [address] [place] [address] Performed By: #### 5 8410-2 ####[facility] LABCL[facility] [id number] [place] [address] [place] Hemoglobin (Bld) [Mass/Vol] 15.6 g/dL High 11.5-15.5 [facility] Comment on above: Order Comment: Speci men Type: BLOOD SPECIMENOrdering Facility: [facility] Address: [address] [place] [address] Performed By: #### 5 8410-2 ####[facility]CL[facility] [id number] [place] [address] [place] MCH (RBC) [Entitic mass] 31.1 pg Normal 26.0-34.0 [facility] Comment on above: Order Comment: Speci men Type: BLOOD SPECIMENOrdering Facility: [facility] Address: [address] [place] [address] Performed By: #### 5 8410-2 ####[facility] LABIA [id number] [place] [address] [place] MCHC (RBC) [Mass/Vol] 32.8 g/dL Normal 30.5-36.0 [facility] Comment on above: Order Comment: Speci men Type: BLOOD SPECIMENOrdering Facility: [facility] Address: [address] [place] [address] Performed By: #### 5 8410-2 ####[facility] LABIA [id number] [place] [address] [place] MCV (RBC) [Entitic vol] 94.8 fL Normal 80.0-100.0 [facility] Comment on above: Order Comment: Speci men Type: BLOOD SPECIMENOrdering Facility: [facility] Address: [address] [place] [address] Performed By: #### 5 8410-2 ####[facility] [id number] [place] [address] [place] Nucleated RBC (Bld) [#/Vol] 10*3/uL Normal <0.01 [facility] Comment on above: Order Comment: Speci men Type: BLOOD SPECIMENOrdering Facility: [facility] Address: [address] [place] [address] Performed By: #### 5 8410-2 ####[facility] LABIA [id number] [place] [address] [place] Platelet mean volume (Bld) [Entitic vol] 9.9 fL Normal 9.0-12.7 [facility] Comment on above: Order Comment: Speci men Type: BLOOD SPECIMENOrdering Facility: [facility] Address: [address] [place] [address] Performed By: #### 5 8410-2 ####[facility] LABIA [id number] [place] [address] [place] Platelets (Bld) [#/Vol] 295 10*3/uL Normal 150-400 [facility] Comment on above: Order Comment: Speci men Type: BLOOD SPECIMENOrdering Facility: [facility] Address: [address] [place] [address] Performed By: #### 5 8410-2 ####[facility] LABIA [id number] [place] [address] [place] RBC (Bld) [#/Vol] 5.02 10*6/uL Normal 3.90-5.20 [facility] Comment on above: Order Comment: Speci men Type: BLOOD SPECIMENOrdering Facility: [facility] Address: [address] [place] [address] Performed By: #### 5 8410-2 ####[facility] [id number] [place] [address] [place] WBC (Bld) [#/Vol] 8.12 10*3/uL Normal 3.70-11.00 [facility] Comment on above: Order Comment: Speci men Type: BLOOD SPECIMENOrdering Facility: [facility] Address: [address] [place] [address] Performed By: #### 5 8410-2 ####[facility] [id number] [place] [id number] [place] CNOVon 05-28-2023 CNOV Office Visit (CARCMN ) -- ELIZABETH QUEZADA ([id number]) 1960 F Date Time Provider Department 05/28/23 1:15 PM SHANICE WARNER During your visit today, we recorded the following information about you: Pulse Respiration Blood pressure Weight 82/minute 16/minute 109/59 78.9 kg Height 1.651 m Shanice Warner MD 05/29/2023 2:38 PM Signed Heart, Vascular and Thoracic Section Arlette Goldstein Department of Cardiovascular Medicine SECTION OF CLINICAL CARDIOLOGY OUTPATIENT VISIT DATE May 28, 2023 OUTPATIENT VISIT TYPE ESTABLISHED PRIMARY CARE PHYSICIAN: To use this Smartlink, specify the provider ID whose address you want to display, e.g., .PROVADDR[1 (where 1 is the provider ID). REFERRING PHYSICIAN: Shanice Warner [address] [place] [address] CHIEF COMPLAINT: Shortness of breath HISTORY OF PRESENT ILLNESS: Ms. Quezada is a 63 year old female who presents today for a cardiovascular medicine follow-up visit . I last saw her in Mar . She was having severe nausea and vomiting at the time. She was worked up by her radiology ct technologist and no cause was found. She is now interested in proceeding to CABG. She was being worked up for a vascular procedure (aorto bifem) -she has a history of severe PAD with kissing iliac stents on the right and s/p hematoma in left groin (?perforation during procedure). She underwent a stress test which was nondiagnostic but cath showed severe LAD disease subtotaled circ and occluded distal PDA (fills from collaterals) She denies chest pain. She is sob at 300 feet and she has severe claudication PAST CARDIAC HISTORY: None PAST MEDICAL HISTORY Diagnosis Date Coronary atherosclerosis Former smoker Hematoma Lung nodules PAD (peripheral artery disease) (HCC) PAST SURGICAL HISTORY Procedure Laterality Date SHX VASCULAR SURGERY 11/28/2022 bilateral kissing iliac stents SOCIAL HISTORY Social History Tobacco Use Smoking status: Every Day Packs/day: 1.00 Years: 40.00 Additional pack years: 0.00 Total pack years: 40.00 Types: Cigarettes Smokeless tobacco: Never Vaping Use Vaping Use: Never used Substance Use Topics Alcohol use: Yes Alcohol/week: 4.0 standard drinks of alcohol Types: 4 Standard drinks or equivalent per week Drug use: Yes Types: Marijuana FAMILY HISTORY Problem Relation Age of Onset Heart Attack Mother Hypertension Mother Hyperlipidemia Mother Kidney Disease Mother Heart Attack Father Hyperlipidemia Father Diabetes Father Patient-Entered Questionnaire Scores Patient Entered Questionnaires 05/13/2023 Average hours of sleep per day 7 Diagnosed with Sleep Apnea No Sleep Apnea Probability Score 05/13/2023 Sleep Apnea Screen V2 9 (Sleep study not recommended) Insomnia Severity Index (SEAN) 05/13/2023 Score Incomplete PROMIS Global Health - (T-Scores - the mean of general population = 50. Five points is a clinically meaningful difference.) 05/13/2023 Physical T-Score 37.4 Mental T-Score 53.3 Sleep Duration Level: N/A ALLERGIES: ALLERGIES Allergen Reactions Tetracycline Unknown, GI Upset Januvia [Sitaglipti* Unknown Rosuvastatin Unknown Allerg Xt,DMelFarinae* Itching Cat Hair Standardiz* Itching sneezing House Dust Itching MEDICATIONS: aspirin 81 mg chewable tablet Take 81 mg by mouth once daily. VENTOLIN HFA 90 mcg/actuation inhaler Inhale 2 Puffs as instructed four times daily. calcium carbonate 500 mg calcium (1,250 mg) chewable tablet Take 500 mg by mouth once daily. carvedilol (COREG) 25 mg tablet Take 25 mg by mouth two times a day. clopidogrel (PLAVIX) 75 mg tablet Take 1 tablet by mouth once daily. TRULICITY 0.75 mg/0.5 mL pen injector Inject 0.5 mL subcutaneously one time a week. JARDIANCE 10 mg tablet Take 1 tablet by mouth once daily. ezetimibe (ZETIA) 10 mg tablet Take 1 tablet by mouth once daily. IBU 800 mg tablet Take 800 mg by mouth four times a day as needed. lisinopril (ZESTRIL) 20 mg tablet Take 1 tablet by mouth once daily. metFORMIN (GLUCOPHAGE) 1,000 mg tablet Take 1,000 mg by mouth two times a day. varenicline (CHANTIX) 1 mg tablet Take 1 tablet by mouth every 12 hours. venlafaxine ER (EFFEXOR XR) 75 mg 24 hr capsule Take 1 capsule by mouth once daily. XARELTO 2.5 mg tablet Take 2.5 mg by mouth two times a day. REVIEW OF SYSTEMS: GENERAL: Negative for: Weight loss or gain, Fever or Chills, Weakness and Sleep difficulties. HEENT: Negative for: Headache, Impaired Vision, Glasses, Hearing Impairment, Ringing in Ears, Nosebleeds, Poor dental care, Bleeding Gums, Dentures NECK: Negative for: Swelling, Pain, Stiffness RESPIRATORY: Negative for: Cough, Blood in Sputum, Shortness of breath, Wheezing, Apnea GASTROINTESTINAL: Negative for: Trouble swallowing, Heartburn, Change in bowel habits, Blood in stool, Dark black stools MUSCULOS (more content not included)... Normal [facility] Comprehensive metabolic 2000 panelon 05-28-2023 Albumin [Mass/Vol] 4.2 g/dL Normal 3.9-4.9 [facility] Comment on above: Order Comment: Speci men Type: BLOOD SPECIMENOrdering Facility: [facility] Address: [address] [place] [address] Performed By: #### 3 3762-6, 21810-4, LIPNF ####[facility] LABCL[facility] [id number] [place] [address] [place] ALP [Catalytic activity/Vol] 78 U/L Normal 34-123 [facility] Comment on above: Order Comment: Speci men Type: BLOOD SPECIMENOrdering Facility: [facility] Address: [address] [place] [address] Performed By: #### 3 3762-6, 73924-6, LIPNF ####[facility] LABCL[facility] [id number] [place] [address] [place] ALT [Catalytic activity/Vol] 17 U/L Normal 7-38 [facility] Comment on above: Order Comment: Speci men Type: BLOOD SPECIMENOrdering Facility: [facility] Address: [address] [place] [address] Performed By: #### 3 3762-6, 80818-5, LIPNF ####[facility] LABCL[facility] [id number] [place] [address] [place] Anion gap [Moles/Vol] 15 mmol/L Normal 9-18 [facility] Comment on above: Order Comment: Speci men Type: BLOOD SPECIMENOrdering Facility: [facility] Address: [address] [place] [address] Performed By: #### 3 3762-6, 40695-1, LIPNF ####[facility] LABCL[facility] [id number] [place] [address] [place] AST [Catalytic activity/Vol] 16 U/L Normal 13-35 [facility] Comment on above: Order Comment: Speci men Type: BLOOD SPECIMENOrdering Facility: [facility] Address: [address] [place] [address] Performed By: #### 3 3762-6, , LIPNF ####[facility] LABIA [id number] [place] [address] [place] Bilirubin [Mass/Vol] 0.2 mg/dL Normal 0.2-1.3 [facility] Comment on above: Order Comment: Speci men Type: BLOOD SPECIMENOrdering Facility: [facility] Address: [address] [place] [address] Performed By: #### 3 3762-6, , LIPNF ####[facility] [id number] [place] [address] [place] Calcium [Mass/Vol] 10.5 mg/dL High 8.5-10.2 [facility] Comment on above: Order Comment: Speci men Type: BLOOD SPECIMENOrdering Facility: [facility] Address: [address] [place] [address] Performed By: #### 3 376-6, , LIPNF ####[facility] LABIA [id number] [place] [address] [place] Chloride [Moles/Vol] 100 mmol/L Normal 97-105 [facility] Comment on above: Order Comment: Speci men Type: BLOOD SPECIMENOrdering Facility: [facility] Address: [address] [place] [address] Performed By: #### 3 3762-6, 25366-8, LIPNF ####[facility] LABCL[facility] [id number] [place] [address] [place] CO2 [Moles/Vol] 21 mmol/L Low 22-30 [facility] Comment on above: Order Comment: Speci men Type: BLOOD SPECIMENOrdering Facility: [facility] Address: [address] [place] [address] Performed By: #### 3 3762-6, 97700-9, LIPNF ####[facility] LABCL[facility] [id number] [place] [address] [place] Creatinine [Mass/Vol] 0.82 mg/dL Normal 0.58-0.96 [facility] Comment on above: Order Comment: Speci men Type: BLOOD SPECIMENOrdering Facility: [facility] Address: [address] [place] [address] Performed By: #### 3 3762-6, 88044-7, LIPNF ####[facility] LABIA [id number] [place] [address] [place] Creatinine and Glomerular filtration rate.predicted panel (S/P/Bld) 79 mL/min/1.73m??? Normal >=60 [facility] Comment on above: Order Comment: Speci men Type: BLOOD SPECIMENOrdering Facility: [facility] Address: [address] [place] [address] Result Comment: Annelise mated Glomerular Filtration Rate (eGFR) is calculated using the 2020 CKD-EPI creatinine equation. This equation utilizes serum creatinine, sex, and age as parameters. The creatinine assay has traceable calibration to isotope dilution-mass spectrometry. Refer to KDIGO guidelines for clinical interpretation. In patients with unstable renal function, e.g. those with acute kidney injury, the eGFR may not accurately reflect actual GFR. Performed By: #### 3 3762-6, 67180-1, LIPNF ####[facility]CL[facility] [id number] [place] [address] [place] Glucose [Mass/Vol] 216 mg/dL High 74-99 [facility] Comment on above: Order Comment: Speci men Type: BLOOD SPECIMENOrdering Facility: [facility] Address: [address] [place] [address] Result Comment: The [place] Diabetes Association (ADA) provides guidance for cutoff values for fasting glucose and random glucose. The ADA defines fasting as no caloric intake for at least 8 hours. Fasting plasma glucose results between 100 to 125 mg/dL indicate increased risk for diabetes (prediabetes). Fasting plasma glucose results greater than or equal to 126 mg/dL meet the criteria for diagnosis of diabetes. In the absence of unequivocal hyperglycemia, results should be confirmed by repeat testing. In a patient with classic symptoms of hyperglycemia or hyperglycemic crisis, random plasma glucose results greater than or equal to 200 mg/dL meet the criteria for diagnosis of diabetes. Reference: Standards of Medical Care in Diabetes 2016, [place] [employer] Association. Diabetes Care. 2016.39(Suppl 1). Performed By: #### 3 3762-6, 98814-8, LIPNF ####[facility] [id number] [place] [address] [place] Potassium [Moles/Vol] 4.8 mmol/L Normal 3.7-5.1 [facility] Comment on above: Order Comment: Phyllis stein Type: BLOOD SPECIMENOrdering Facility: [facility] Address: [address] [place] [address] Performed By: #### 3 3762-6, 82357-8, LIPNF ####[facility]CL[facility] [id number] [place] [address] [place] Protein [Mass/Vol] 6.7 g/dL Normal 6.3-8.0 [facility] Comment on above: Order Comment: Sybili sarita Type: BLOOD SPECIMENOrdering Facility: [facility] Address: [address] [place] [address] Performed By: #### 3 3762-6, 83753-2, LIPNF ####[facility] LABCL[facility] [id number] [place] [address] [place] Sodium [Moles/Vol] 136 mmol/L Normal 136-144 [facility] Comment on above: Order Comment: Speci men Type: BLOOD SPECIMENOrdering Facility: [facility] Address: [place] [address] Performed By: #### 3 3762-6, 17440-5, LIPNF ####[facility] LABCL[facility] [id number] [address] [place] Urea nitrogen [Mass/Vol] 22 mg/dL High 7-21 [facility] Comment on above: Order Comment: Speci men Type: BLOOD SPECIMENOrdering Facility: [facility] Address: [place] [address] Performed By: #### 3 3762-6, 31868-7, LIPNF ####[facility] LABCL[facility] [id number] [place] [id number] [place] ECHOon 05-28-2023 Echocardiography Echocardiography Rep ort: Transthoracic Echo [facility] J35 Date of service: 05/28/2023 11:24:01 AM MANAGER Ordering physician: SHANICE WARNER Indication: CAD Symptom(s): Chest Pain Technologist: Jazmine Antunez [facility] Interpreting physician: Mauricio Martinez MD PATIENT: Name: MS. ELIZABETH QUEZADA : 1960 Age: 63 years Gender: F History of diabetes mellitus and coronary artery disease. Primary rhythm: sinus. Height: 165.10 cm BSA: 1.96 m Weight: 83.40 kg BMI: 30.6 kg/m Heart rate 63 bpm Blood pressure 128/70 mmHg Color Doppler was utilized to interrogate the cardiac valves assessed and spectral Doppler was utilized to determine the flow velocities and pressure gradients reported in this exam. Myocardial strain analysis was performed in this exam to aid in the assessment of cardiac function. MEASUREMENTS: Value Indexed Normal Max aortic dimension 2.8 cm Ao < 3.8 Left atrial volume 56 ml (biplane A-L) 28 ml/m Nat <= 34 LV ID (diastole) 4.6 cm (2D) 2.34 cm/m LV ID (systole) 3.4 cm (2D) 1.72 cm/m IVS, leaflet tips 1.2 cm (2D) Posterior wall thickness 1.0 cm (2D) Left ventricular mass 172 g (2D) 88 g/m Global peak long strain -15.0 % LV stroke volume 62 ml (2D biplane) LV end diastolic volume 102 ml (2D biplane) 52.0 ml/m 29<=EDVi<62 LV end systolic volume 40 ml (2D biplane) 20.2 ml/m Ejection Fraction 61 % (2D biplane) EF > 54 FINDINGS: LEFT VENTRICLE The left ventricle is normal in size. Left ventricular systolic function is normal. Global LV myocardial strain is borderline abnormal. Grade I left ventricular diastolic dysfunction. Mitral annular lateral E/e': 9.2. Mitral annular septal E/e': 12.3. Wall Motion: All scored segments are normal. RIGHT VENTRICLE The right ventricle is normal in size. Right ventricular systolic function is normal. RV systolic tissue Doppler velocity is 14.0 cm/s. Tricuspid annular displacement is 1.7 cm. Estimated right ventricular systolic pressure is not reported due to an insufficient tricuspid regurgitation signal. Estimated right atrial pressure is 3 mmHg based on IVC assessment. LEFT ATRIUM The left atrial cavity is normal in size. Pulmonary Veins: The pulmonary venous pattern showed normal systolic flow. RIGHT ATRIUM The right atrial cavity is normal in size. Inferior Vena Cava: The inferior vena cava appears normal measuring 1.2 cm. The vessel decreases greater than 50 percent with inspiration. MITRAL VALVE There is mild (1+ - 2+) holosystolic mitral valve regurgitation. There is mild thickening. The pressure half time is 81 msec. The peak mitral E/A ratio is 0.74. The average mitral E/e' ratio is 10.7. The mitral flow deceleration time is 279 msec. TRICUSPID VALVE There is trace tricuspid valve regurgitation. There is no thickening. The hepatic venous pattern showed normal systolic flow. AORTIC VALVE There is no aortic valve regurgitation. Tricuspid aortic valve. There is mild thickening. PULMONIC VALVE There is trace pulmonic valve regurgitation. There is no thickening. AORTA The visualized aorta is normal in size. Measurements - Mid ascending aorta 2.8 cm. INTERVENTRICULAR SEPTUM There is no flow through the interventricular septum as detected by Doppler. PERICARDIUM There is no pericardial effusion. There is an epicardial fat pad. CONCLUSIONS: - Exam indication: CAD - The left ventricle is normal in size. Left ventricular systolic function is normal. EF = 61 5% (2D biplane) Grade I left ventricular diastolic dysfunction. - The right ventricle is normal in size. Right ventricular systolic function is normal. - The patient has not had a prior CC echocardiographic exam for comparison. * * * Final * * * [facility] [employer] [facility] : [id number] 10SyngoDynamicsSISUID Normal [facility] LIPID PANEL, NONFASTINGon Cholesterol [Mass/Vol] 220 mg/dL High <200 [facility] Comment on above: Order Comment: Speci men Type: BLOOD SPECIMENOrdering Facility: [facility] Address: [address] [place] [address] Result Comment: <200 mg/dL, Desirable 200-239 mg/dL, Borderline high >239 mg/dL, High Performed By: #### 3 3762-6, 68034-7, LIPNF ####[facility] [id number] [place] [address] [place] HDL CHOLESTEROL, NF 35 mg/dL Low >39 [facility] Comment on above: Order Comment: Speci men Type: BLOOD SPECIMENOrdering Facility: [facility] Address: [address] [place] [address] Result Comment: 40-5 9 mg/dL, Acceptable >59 mg/dL, High: Negative risk factor for coronary heart disease <40 mg/dL, Low: Positive risk factor for coronary heart disease Performed By: #### 3 3762-6, 41228-4, LIPNF ####[facility] [id number] [place] [address] [place] LDL CHOLESTEROL, NF Normal [facility] Comment on above: Order Comment: Sybili men Type: BLOOD SPECIMENOrdering Facility: [facility] Address: [address] [place] [address] Result Comment: Unab le to calculate due to increased Triglycerides. A Direct LDL Cholesterol measurement will not be performed. If clinically indicated, a fasting Basic Lipid Panel (LIPB) may be ordered. Performed By: #### 3 3762-6, 30247-1, LIPNF ####[facility] [id number] [place] [address] [place] LDL/HDL RATIO, NF Normal [facility] Comment on above: Order Comment: Speci men Type: BLOOD SPECIMENOrdering Facility: [facility] Address: [address] [place] [address] Result Comment: Unab le to calculate due to elevated Triglycerides. Reference: 1. National Cholesterol Education Program ATP III Guideline At-A-Glance Quick Desk Reference: National Heart, Lung, and Blood Section. National Institutes of Health. 2001: NIH Publication No. 01-3305. 2. An International Atherosclerosis Society position paper: global recommendations for the management of dyslipidemia: executive summary, Atherosclerosis. 2014: 232(2):410-413. Performed By: #### 3 3762-6, 31771-6, LIPNF ####[facility] [id number] [place] [address] [place] NON HDL CHOL, NF 185 mg/dL High <130 [facility] Comment on above: Order Comment: Speci men Type: BLOOD SPECIMENOrdering Facility: [facility] Address: [address] [place] [address] Result Comment: <130 mg/dL, Optimal 130-159 mg/dL, Near optimal/above optimal 160-189 mg/dL, Borderline high 190-219 mg/dL, High >219 mg/dL, Very high Secondary prevention optimal non HDL Cholesterol levels are recommended to be <100 mg/dL Performed By: #### 3 3762-6, 77431-5, LIPNF ####[facility] [id number] [place] [address] [place] T CHOL/HDL RATIO NF 6.29 mg/dL High <5.10 [facility] Comment on above: Order Comment: Speci men Type: BLOOD SPECIMENOrdering Facility: [facility] Address: [address] [place] [address] Performed By: #### 3 3762-6, , LIPNF ####[facility] [id number] [place] [address] [place] TRIGLYCERIDES, NF 414 mg/dL High <150 [facility] Comment on above: Order Comment: Speci men Type: BLOOD SPECIMENOrdering Facility: [facility] Address: [address] [place] [address] Result Comment: <150 mg/dL, Normal 150-199 mg/dL, Borderline high 200-499 mg/dL, High >499 mg/dL, Very high Performed By: #### 3 3762-6, , LIPNF ####[facility] [id number] [place] [address] [place] VLDL CHOLESTEROL, NF Normal [facility] Comment on above: Order Comment: Speci men Type: BLOOD SPECIMENOrdering Facility: [facility] Address: [address] [place] [address] Result Comment: Unab le to calculate due to elevated Triglycerides. Performed By: #### 3 3762-6, , LIPNF ####[facility] [id number] [place] [address] [place] NT PRO BNPon 05-28-2023 Natriuretic peptide.B prohormone N-Terminal [Mass/Vol] 200 pg/mL High <125 pg/mL [facility] NT-proBNP SerPl-mCncon 05-28 Natriuretic peptide.B prohormone N-Terminal [Mass/Vol] 200 pg/mL High <125 [facility] Comment on above: Order Comment: Speci men Type: BLOOD SPECIMENOrdering Facility: [facility] Address: [address] [place] [address] Performed By: #### 3 3762-6, 41217-0, LIPNF ####[facility] [id number] [place] [id number] [place] John 04-10-2023 CNPN Telephone (CARCMN) -- ELIZABETH QUEZADA ([id number]) 1960 F Date Time Provider Department 04/10/23 SHANICE WARNER CARCMN During your visit today, we recorded the following information about you: Rosemarie Santiago 04/10/2023 8:09 AM Signed Received outside Cath report has been uploaded and placed in OPD folder Rosemarie Santiago April 10, 2023 8:09 AM Nancy De León 04/16/2023 12:18 PM Signed Received records via fax from [facility] Includes: ED notes Cardiology office notes CT Angio Vascular Artl Doppler Scanned all records to [facility] via [facility]. Appt on 07/02/2023 LILIAN 04/03/2023 Nancy De León Adm April 16, 2023 Nancy De León 04/25/2023 12:50 PM Signed All records now received. Cath images were pushed and are viewable under the imaging tab. Dr. Wanrer requested to see all records. Nancy De León Adm April 25, 2023 Mary Franks RN 04/26/2023 1:[address] Warner, he will review AND he also needs to review with some colleagues. Will get back to patient once reviewed with them. PATRICK Alamo Stefani Elise, RN 04/26/2023 2:06 PM Signed Let patient know below, she verbalized understanding and thanked me for calling. Mary Franks RN Allergies As of Date: 04/10/2023 Noted Allergy Reaction TETRACYCLINE 09/27/2022 16 - Unknown 8 - GI Upset Januvia (SITAGLIPTIN) 06/24/2019 16 - Unknown ROSUVASTATIN 06/24/2019 16 - Unknown ALLERG XT,ChristianFARINAE-D.PTERONYS 07/19/2022 9 - Itching CAT HAIR STANDARDIZED ALLERGENIC *09/27/2022 9 - Itching Comments: sneezing HOUSE DUST 07/19/2022 9 - Itching Date Reviewed: 04/03/2023 Reviewed by: Ghazala Hoyt RN - Fully Assessed Reason for Visit: Received Outside Medical Records [[id number]] Prescriptions as of 04/26/2023 - aspirin 81 mg chewable tablet Take 81 mg by mouth once daily. - VENTOLIN HFA 90 mcg/actuation inhaler Inhale 2 Puffs as instructed four times daily. - calcium carbonate 500 mg calcium (1,250 mg) chewable tablet Take 500 mg by mouth once daily. - carvedilol (COREG) 25 mg tablet Take 25 mg by mouth two times a day. - clopidogrel (PLAVIX) 75 mg tablet Take 1 tablet by mouth once daily. - TRULICITY 0.75 mg/0.5 mL pen injector Inject 0.5 mL subcutaneously one time a week. - JARDIANCE 10 mg tablet Take 1 tablet by mouth once daily. - ezetimibe (ZETIA) 10 mg tablet Take 1 tablet by mouth once daily. - IBU 800 mg tablet Take 800 mg by mouth four times a day as needed. - lisinopril (ZESTRIL) 20 mg tablet Take 1 tablet by mouth once daily. - metFORMIN (GLUCOPHAGE) 1,000 mg tablet Take 1,000 mg by mouth two times a day. - varenicline (CHANTIX) 1 mg tablet Take 1 tablet by mouth every 12 hours. - venlafaxine ER (EFFEXOR XR) 75 mg 24 hr capsule Take 1 capsule by mouth once daily. - XARELTO 2.5 mg tablet Take 2.5 mg by mouth two times a day. Problem List As Of Date: 04/10/2023 (None) Encounter Status:Closed by ROSEMARIE SANTIAGO on 04/10/23 Normal [facility] CBC panel Auto (Bld)on 04-03 Erythrocyte distribution width (RBC) [Ratio] 13.0 % Normal 11.5-15.0 [facility] Comment on above: Order Comment: Speci men Type: BLOOD SPECIMENOrdering Facility: [facility] Address: [address] [place] [address] Performed By: #### 5 8410-2 ####[facility] [id number] [place] [address] [place] Hematocrit (Bld) [Volume fraction] 53.9 % High 36.0-46.0 [facility] Comment on above: Order Comment: Speci men Type: BLOOD SPECIMENOrdering Facility: [facility] Address: [address] [place] [address] Performed By: #### 5 8410-2 ####[facility] [id number] [place] [address] [place] Hemoglobin (Bld) [Mass/Vol] 18.6 g/dL High 11.5-15.5 [facility] Comment on above: Order Comment: Speci men Type: BLOOD SPECIMENOrdering Facility: [facility] Address: [address] [place] [address] Performed By: #### 5 8410-2 ####[facility] [id number] [place] [address] [place] MCH (RBC) [Entitic mass] 29.8 pg Normal 26.0-34.0 [facility] Comment on above: Order Comment: Speci men Type: BLOOD SPECIMENOrdering Facility: [facility] Address: [address] [place] [address] Performed By: #### 5 8410-2 ####[facility] [id number] [place] [address] [place] MCHC (RBC) [Mass/Vol] 34.5 g/dL Normal 30.5-36.0 [facility] Comment on above: Order Comment: Speci men Type: BLOOD SPECIMENOrdering Facility: [facility] Address: [address] [place] [address] Performed By: #### 5 8410-2 ####[facility] [id number] [place] [address] [place] MCV (RBC) [Entitic vol] 86.2 fL Normal 80.0-100.0 [facility] Comment on above: Order Comment: Speci men Type: BLOOD SPECIMENOrdering Facility: [facility] Address: [address] [place] [address] Performed By: #### 5 8410-2 ####[facility] [id number] [place] [address] [place] Nucleated RBC (Bld) [#/Vol] 10*3/uL Normal <0.01 [facility] Comment on above: Order Comment: Speci men Type: BLOOD SPECIMENOrdering Facility: [facility] Address: [address] [place] [address] Performed By: #### 5 8410-2 ####[facility] [id number] [place] [address] [place] Platelet mean volume (Bld) [Entitic vol] 9.6 fL Normal 9.0-12.7 [facility] Comment on above: Order Comment: Speci men Type: BLOOD SPECIMENOrdering Facility: [facility] Address: [address] [place] [address] Performed By: #### 5 8410-2 ####[facility] [id number] [place] [address] [place] Platelets (Bld) [#/Vol] 269 10*3/uL Normal 150-400 [facility] Comment on above: Order Comment: Speci men Type: BLOOD SPECIMENOrdering Facility: [facility] Address: [address] [place] [address] Performed By: #### 5 8410-2 ####[facility] [id number] [place] [address] [place] RBC (Bld) [#/Vol] 6.25 10*6/uL High 3.90-5.20 [facility] Comment on above: Order Comment: Speci men Type: BLOOD SPECIMENOrdering Facility: [facility] Address: [place] [address] Performed By: #### 5 8410-2 ####[facility] [id number] [place] [address] [place] WBC (Bld) [#/Vol] 10.50 10*3/uL Normal 3.70-11.00 [facility] Comment on above: Order Comment: Speci men Type: BLOOD SPECIMENOrdering Facility: [facility] Address: [address] [place] [address] Performed By: #### 5 8410-2 ####[facility] [id number] [place] [address] [place] Erythrocyte distribution width (RBC) [Ratio] 13.0 % 11.5 - 15.0 % [facility] Hematocrit (Bld) [Volume fraction] 53.9 % High 36.0 - 46.0 % [facility] Hemoglobin (Bld) [Mass/Vol] 18.6 g/dL High 11.5 - 15.5 g/dL [facility] MCH (RBC) [Entitic mass] 29.8 pg 26.0 - 34.0 pg [facility] MCHC (RBC) [Mass/Vol] 34.5 g/dL 30.5 - 36.0 g/dL [facility] MCV (RBC) [Entitic vol] 86.2 fL 80.0 - 100.0 fL [facility] Nucleated RBC (Bld) [#/Vol] <0.01 k/uL [facility] Platelet mean volume (Bld) [Entitic vol] 9.6 fL 9.0 - 12.7 fL [facility] Platelets (Bld) [#/Vol] 269 10*3/uL 150 - 400 k/uL [facility] RBC (Bld) [#/Vol] 6.25 10*6/uL High 3.90 - 5.20 m/uL [facility] WBC (Bld) [#/Vol] 10.50 10*3/uL 3.70 - 11.00 k/[facility] CNOVon 04-03-2023 CNOV Office Visit (CARCMN ) -- ELIZABETH QUEZADA ([id number]) 1960 F Date Time Provider Department 04/03/23 7:45 AM SHANICE WARNER CARCMN During your visit today, we recorded the following information about you: Pulse Blood pressure 101/minute 200/116 Shanice Warner MD 04/03/2023 4:33 PM Signed Heart and Vascular Section Arlette Goldstein Department of Cardiovascular Medicine SECTION OF CLINICAL CARDIOLOGY OUTPATIENT VISIT DATE April 02, 2023 OUTPATIENT VISIT TYPE NEW PRIMARY CARE PHYSICIAN: To use this Smartlink, specify the provider ID whose address you want to display, e.g., .PROVADDR[1 (where 1 is the provider ID). REFERRING PHYSICIAN: No referring provider defined for this encounter. CHIEF COMPLAINT: Cardiovascular health evaluation HISTORY OF PRESENT ILLNESS: Ms. Quezada is a 63 year old female who presents today for cardiovascular evaluation. Today, pt is feeling severely ill. Complains of nausea and vomiting which started on Saturday. She went to the ED on Saturday where she got anti nausea medication which subsided her symptoms for a time period. After eating a heavy meal, her symptoms resumed. Pt was brought in today to get cardiac evaluation for possible cardiac bypass.. About a year ago, she was having cramping and trouble with legs. Upon workup, she was told that she had severe peripheral vascular disease. As part of her preop workup she underwent cath prior to vascular surgery? She was told that she had four vessel disease that needs grafting which brings her in today. Per, pt she has a heart cath last week which was prompted by an abnormal stress test. (Inferior defect -attenuation artifact vs true ischemia) Today, pt has an in office bp of 200/116 and her HR is 101 which she attributes to being unable to take her medication this morning due to her nausea. She is still currently smoking. She denies abdominal distention, shortness of breath, orthopnea, edema, palpitations, PND. NURSING INTAKE: Ms. Quezada is a 63 year old female from [place], [place] here today for cardiovascular evaluation related to CAD. Elizabeth has a significant medical history of PAD, S/p bilateral kissing iliac stents 11/28/2022 c/b L thigh hematoma, Coronary Atherosclerosis. She denies chest pain, palpitations, shortness of breath, lightheadedness, dizziness, syncope, PND, and edema at this time. She does have cramping in her legs when she walks. PAST MEDICAL HISTORY Diagnosis Date Coronary atherosclerosis Former smoker Hematoma Lung nodules PAD (peripheral artery disease) (HCC) PAST SURGICAL HISTORY Procedure Laterality Date SHX VASCULAR SURGERY 11/28/2022 bilateral kissing iliac stents SOCIAL HISTORY Social History Tobacco Use Smoking status: Every Day Packs/day: 1.00 Years: 40.00 Additional pack years: 0.00 Total pack years: 40.00 Types: Cigarettes Smokeless tobacco: Never Vaping Use Vaping Use: Never used Substance Use Topics Alcohol use: Yes Alcohol/week: 4.0 standard drinks of alcohol Types: 4 Standard drinks or equivalent per week Drug use: Yes Types: Marijuana FAMILY HISTORY Problem Relation Age of Onset Heart Attack Mother Hypertension Mother Hyperlipidemia Mother Kidney Disease Mother Heart Attack Father Hyperlipidemia Father Diabetes Father ALLERGIES: ALLERGIES Allergen Reactions Tetracycline Unknown, GI Upset Januvia [Sitaglipti* Unknown Rosuvastatin Unknown Allerg Xt,DMelFarinae* Itching Cat Hair Standardiz* Itching sneezing House Dust Itching MEDICATIONS: aspirin 81 mg chewable tablet Take 81 mg by mouth once daily. calcium carbonate 500 mg calcium (1,250 mg) chewable tablet Take 500 mg by mouth once daily. carvedilol (COREG) 25 mg tablet Take 25 mg by mouth two times a day. clopidogrel (PLAVIX) 75 mg tablet Take 1 tablet by mouth once daily. ezetimibe (ZETIA) 10 mg tablet Take 1 tablet by mouth once daily. IBU 800 mg tablet Take 800 mg by mouth four times a day as needed. JARDIANCE 10 mg tablet Take 1 tablet by mouth once daily. lisinopril (ZESTRIL) 20 mg tablet Take 1 tablet by mouth once daily. metFORMIN (GLUCOPHAGE) 1,000 mg tablet Take 1,000 mg by mouth two times a day. TRULICITY 0.75 mg/0.5 mL pen injector Inject 0.5 mL subcutaneously one time a week. varenicline (CHANTIX) 1 mg tablet Take 1 tablet by mouth every 12 hours. venlafaxine ER (EFFEXOR XR) 75 mg 24 hr capsule Take 1 capsule by mouth once daily. VENTOLIN HFA 90 mcg/actuation inhaler Inhale 2 Puffs as instructed four times daily. XARELTO 2.5 mg tablet Take 2.5 mg by mouth two times a day. REVIEW OF SYSTEMS: Positives in bold GENERAL: Negative for: Weight loss or gain, Fever or Chills, Weakness and Sleep difficulties. HEENT: Negative for: Headache, Impaired Vision, Glasses, Hearing Impairment, Ringing in Ears, Nosebleeds, Poor dental care (more content not included)... Normal [facility] Comprehensive metabolic 2000 panelon 04-03-2023 Albumin [Mass/Vol] 4.6 g/dL 3.9 - 4.9 g/dL [facility] ALP [Catalytic activity/Vol] 82 U/L 34 - 123 U/L [facility] ALT [Catalytic activity/Vol] 15 U/L 7 - 38 U/L [facility] Anion gap [Moles/Vol] 19 mmol/L High 9 - 18 mmol/L [facility] AST [Catalytic activity/Vol] 14 U/L 13 - 35 U/L [facility] Bilirubin [Mass/Vol] 0.9 mg/dL 0.2 - 1 .3 mg/dL [facility] Calcium [Mass/Vol] 10.5 mg/dL High 8.5 - 10. 2 mg/dL [facility] Chloride [Moles/Vol] 94 mmol/L Low 97 - 10 5 mmol/L [facility] CO2 [Moles/Vol] 18 mmol/L Low 22 - 30 mmol/L [facility] Creatinine [Mass/Vol] 0.81 mg/dL 0.58 - 0.96 mg/dL [facility] Estimated Glomerular Filtration Rate 81 mL/min/1.73m >=60 mL/min/1.7 3m [facility] Glucose [Mass/Vol] 241 mg/dL High 74 - 99 mg/dL [facility] Potassium [Moles/Vol] 4.2 mmol/L 3.7 - 5.1 mmol/L [facility] Protein [Mass/Vol] 7.5 g/dL 6.3 - 8.0 g/dL [facility] Sodium [Moles/Vol] 131 mmol/L Low 136 - 144 mmol/L [facility] Urea nitrogen [Mass/Vol] 20 mg/dL 7 - 21 mg/dL [facility] Albumin [Mass/Vol] 4.6 g/dL Normal 3.9-4.9 [facility] Comment on above: Order Comment: Speci men Type: BLOOD SPECIMENOrdering Facility: [facility] Address: [address] [place] [address] Performed By: #### 2 4323-8 ####[facility] [id number] [place] [address] [place] ALP [Catalytic activity/Vol] 82 U/L Normal 34-123 [facility] Comment on above: Order Comment: Speci men Type: BLOOD SPECIMENOrdering Facility: [facility] Address: [address] [place] [address] Performed By: #### 2 4323-8 ####[facility] [id number] [place] [address] [place] ALT [Catalytic activity/Vol] 15 U/L Normal 7-38 [facility] Comment on above: Order Comment: Speci men Type: BLOOD SPECIMENOrdering Facility: [facility] Address: [address] [place] [address] Performed By: #### 2 4323-8 ####[facility] [id number] [place] [address] [place] Anion gap [Moles/Vol] 19 mmol/L High 9-18 [facility] Comment on above: Order Comment: Speci men Type: BLOOD SPECIMENOrdering Facility: [facility] Address: [address] [place] [address] Performed By: #### 2 4323-8 ####[facility] [id number] [place] [address] [place] AST [Catalytic activity/Vol] 14 U/L Normal 13-35 [facility] Comment on above: Order Comment: Speci men Type: BLOOD SPECIMENOrdering Facility: [facility] Address: [address] [place] [address] Performed By: #### 2 4323-8 ####[facility] [id number] [address] [address] [place] Bilirubin [Mass/Vol] 0.9 mg/dL Normal 0.2-1.3 [facility] Comment on above: Order Comment: Speci men Type: BLOOD SPECIMENOrdering Facility: [facility] Address: [address] [place] [address] Performed By: #### 2 4323-8 ####[facility] [id number] [place] [address] [place] Calcium [Mass/Vol] 10.5 mg/dL High 8.5-10.2 [facility] Comment on above: Order Comment: Speci men Type: BLOOD SPECIMENOrdering Facility: [facility] Address: [address] [place] [address] Performed By: #### 2 4323-8 ####[facility] [id number] [place] [id number] [place] Chloride [Moles/Vol] 94 mmol/L Low 97-105 [facility] Comment on above: Order Comment: Speci men Type: BLOOD SPECIMENOrdering Facility: [facility] Address: [address] [place] [address] Performed By: #### 2 4323-8 ####[facility] [id number] [place] [address] [place] CO2 [Moles/Vol] 18 mmol/L Low 22-30 [facility] Comment on above: Order Comment: Speci men Type: BLOOD SPECIMENOrdering Facility: [facility] Address: [address] [place] [address] Performed By: #### 2 4323-8 ####[facility] [id number] [place] [address] [place] Creatinine [Mass/Vol] 0.81 mg/dL Normal 0.58-0.96 [facility] Comment on above: Order Comment: Phyllis men Type: BLOOD SPECIMENOrdering Facility: [facility] Address: [address] [place] [address] Performed By: #### 2 4323-8 ####[facility] [id number] [place] [address] [place] Creatinine and Glomerular filtration rate.predicted panel (S/P/Bld) 81 mL/min/1.73m??? Normal >=60 [facility] Comment on above: Order Comment: Sybili men Type: BLOOD SPECIMENOrdering Facility: [facility] Address: [address] [place] [address] Result Comment: Annelise mated Glomerular Filtration Rate (eGFR) is calculated using the 2020 CKD-EPI creatinine equation. This equation utilizes serum creatinine, sex, and age as parameters. The creatinine assay has traceable calibration to isotope dilution-mass spectrometry. Refer to KDIGO guidelines for clinical interpretation. In patients with unstable renal function, e.g. those with acute kidney injury, the eGFR may not accurately reflect actual GFR. Performed By: #### 2 4323-8 ####[facility] [id number] [place] [address] [place] Glucose [Mass/Vol] 241 mg/dL High 74-99 [facility] Comment on above: Order Comment: Speci men Type: BLOOD SPECIMENOrdering Facility: [facility] Address: [address] [place] [address] Result Comment: The [place] Diabetes Association (ADA) provides guidance for cutoff values for fasting glucose and random glucose. The ADA defines fasting as no caloric intake for at least 8 hours. Fasting plasma glucose results between 100 to 125 mg/dL indicate increased risk for diabetes (prediabetes). Fasting plasma glucose results greater than or equal to 126 mg/dL meet the criteria for diagnosis of diabetes. In the absence of unequivocal hyperglycemia, results should be confirmed by repeat testing. In a patient with classic symptoms of hyperglycemia or hyperglycemic crisis, random plasma glucose results greater than or equal to 200 mg/dL meet the criteria for diagnosis of diabetes. Reference: Standards of Medical Care in Diabetes 2016, [place] [employer] Association. Diabetes Care. 2016.39(Suppl 1). Performed By: #### 2 4323-8 ####[facility] [id number] [place] [address] [place] Potassium [Moles/Vol] 4.2 mmol/L Normal 3.7-5.1 [facility] Comment on above: Order Comment: Speci men Type: BLOOD SPECIMENOrdering Facility: [facility] Address: [address] [place] [address] Performed By: #### 2 4323-8 ####[facility] [id number] [place] [address] [place] Protein [Mass/Vol] 7.5 g/dL Normal 6.3-8.0 [facility] Comment on above: Order Comment: Speci men Type: BLOOD SPECIMENOrdering Facility: [facility] Address: [address] [place] [address] Performed By: #### 2 4323-8 ####[facility] [id number] [place] [address] [place] Sodium [Moles/Vol] 131 mmol/L Low 136-144 [facility] Comment on above: Order Comment: Speci men Type: BLOOD SPECIMENOrdering Facility: [facility] Address: [address] [place] [address] Performed By: #### 2 4323-8 ####[facility] [id number] [place] [address] [place] Urea nitrogen [Mass/Vol] 20 mg/dL Normal 7-21 [facility] Comment on above: Order Comment: Speci men Type: BLOOD SPECIMENOrdering Facility: [facility] Address: [address] [place] [address] Performed By: #### 2 4323-8 ####[facility] [id number] [facility] [id number] [place] ECG COMPLETEon 04-03-2023 ECG COMPLETE Ventricular Rate : 9 4 BPM Atrial Rate : 94 BPM P-R Interval : 180 ms QRS Duration : 98 ms Q-T Interval : 382 ms QTC Calculation(Bazett) : 477 ms Calculated P [place] : 68 degrees Calculated R [place] : 60 degrees Calculated T [place] : 79 degrees NORMAL SINUS RHYTHM POSSIBLE LEFT ATRIAL ENLARGEMENT BORDERLINE ECG Confirmed by MD DOLORES, PhD, DAYO ([id number]) on 04/16/2023 6:22:03 AM NAME : ELIZABETH QUEZADA PID : [id number] : 1960 Gender : Female Race : ORD : [id number] Procedure Date : Apr 03 2023 08:04:30 Edit Date : Apr 16 2023 06:22:05 Diagnosis: NORMAL SINUS RHYTHM POSSIBLE LEFT ATRIAL ENLARGEMENT BORDERLINE ECG Confirmed by MD DOLORES, PhD, DAYO ([id number]) on 04/16/2023 6:22:03 AM Test Reason : Location : 314 : J14 J1-4 Overread By : MD DOLORES, PhD,DAYO Edited By : MD DOLORES, PhD,DAYO Referred By : DAYO BERNAL Acquired by : YAMILE ANDERSON [facility] HbA1c (Bld)on 04-03-2023 Average glucose Estimated from glycated hemoglobin (Bld) [Mass/Vol] 163 mg/dL [facility] HbA1c (Bld) [Mass fraction] 7.3 % High 4.3 - 5.6 % [facility] Average glucose Estimated from glycated hemoglobin (Bld) [Mass/Vol] 163 mg/dL Normal [facility] Comment on above: Order Comment: Speci men Type: BLOOD SPECIMENOrdering Facility: [facility] Address: [address] [place] [address] Result Comment: eAG: (Estimated average glucose) is a calculated value from HgbA1c and is major account representative of the average blood glucose level in the last 2-3 month period. Performed By: #### 5 5454-3 ####[facility] [id number] [place] [address] [place] HbA1c (Bld) [Mass fraction] 7.3 % High 4.3-5.6 [facility] Comment on above: Order Comment: Phyllis stein Type: BLOOD SPECIMENOrdering Facility: [facility] Address: [address] [place] [address] Result Comment: [place] Diabetes Association guidelines indicate that patients with HgbA1c in the range 5.7-6.4% are at increased risk for development of diabetes, and intervention by lifestyle modification may be beneficial. HgbA1c greater or equal to 6.5% is considered diagnostic of diabetes. Performed By: #### 5 5454-3 ####[facility] [id number] [address] [place] PT panel Coag (PPP)on 2022 INR Coag (PPP) [Relative time] 1.1 {INR} Normal 0.9-1.3 [facility] Comment on above: Order Comment: Phyllis stein Type: BLOOD SPECIMENOrdering Facility: [facility] Address: [address] [place] [address] Result Comment: Suzanne min K Antagonist (VKA) Therapeutic Range: INR 2 to 3 (Target INR of 2.5) Note: For patients treated with VKA drugs, such as warfarin, the [place] [employer] 2012 Guideline recommends a therapeutic INR range of 2 to 3 (target INR of 2.5). This recommendation includes high-risk patients with antiphospholipid syndrome with previous arterial or venous thromboembolism, current-generation mechanical or bioprosthetic aortic heart valve replacement. Note: Patients with mechanical aortic valve replacement and additional risk factors for thromboembolic events (atrial fibrillation, previous thromboembolism, LV dysfunction, hypercoagulable conditions) or an older generation mechanical AVR (i.e., ball in-Cage) or any mechanical MVR should have a INR therapeutic range of 2.5 to 3.5 (target INR of 3). Capri GH, et al. Chest 2012, 141:7S-47S Marcel RA et al. JACC 2017, 70: 252-289 Performed By: #### 3 4528-0 ####[facility] [id number] [place] [address] [place] PT Coag (PPP) [Time] 11.4 s Normal 9.7-13.0 [facility] Comment on above: Order Comment: Speci men Type: BLOOD SPECIMENOrdering Facility: [facility] COMPANY Address: [address] [place] [address] Performed By: #### 3 [id number] ####[facility] [id number] [place] [address] [place] INR Coag (PPP) [Relative time] 1.1 {INR} 0.9 - 1.3 [facility] PT Coag (PPP) [Time] 11.4 s 9.7 - 1 3.0 sec [facility] Activated partial thrombopla stin time (aPTT) in platelet poor plasma by coagulation aOrdered By: Patrizia Melendrez on 03-20-2023 aPTT Coag (PPP) [Time] 28.8 s 25.1-36.5 [facility] Comment on above: A hematocrit value g reater than 55% may lead to inaccurate results in coagulation testing. Patients having hematocrit values >55% require a special collection tube for coagulation studies. Please contact the laboratory at [phone] for redraw instructions. Basophils Auto (Bld) [#/Vol] Ordered By: Patrizia Melendrez on 03-20-2023 Basophils (Bld) [#/Vol] 0.0 10*3/uL 0.0-0.2 [facility] Basophils/100 WBC Auto (Bld) Ordered By: Patrizia Melendrez on 03-20-2023 Basophils/100 WBC (Bld) 0.4 % . [facility] Blood Urea Nitrogenon 2022 Urea nitrogen [Mass/Vol] 21 mg/dL Normal 7-25 [facility] Comment on above: Performed By: #### B UN, CBC, CREAT, PP, LYTES, LIPID #### [facility] [address] [place] [address] [facility] Carbon dioxide, total [Moles /volume] in Serum or PlasmaOrdered By: Patrizia Melendrez on 03-20-2023 CO2 [Moles/Vol] 28.8 mmol/L 21.0-31.0 [facility] Chloride [Moles/volume] in S radha or PlasmaOrdered By: Patrizia Melendrez on 03-20-2023 Chloride [Moles/Vol] 105 mmol/L 98-107 [facility] Cholesterol [Mass/volume] in Serum or PlasmaOrdered By: Patrizia Melendrez on 03-20-2023 Cholesterol [Mass/Vol] 270 mg/dL 140-200 [facility] Comment on above: Chol less than 200 m g/dl low riskChol 201-239 mg/dl borderline riskChol 240 mg/dl and greater high risk Cholesterol in LDL Calc [Mas s/Vol]Ordered By: Patrizia Melendrez on 03-20-2023 Cholesterol in LDL [Mass/Vol] 170 mg/dL 0-100 [facility] Comment on above: LDL ATP III CLASSIFI CATIONLDL less than 100 mg/dL OptimalLDL 100-129 mg/dL Near or above optimalLDL 130-159 mg/dL Borderline highLDL 160-189 mg/dL HighLDL greater than 189 mg/dL Very high Cholesterol in VLDL Calc [Ma ss/Vol]Ordered By: Patrizia Melendrez on 03-20-2023 Cholesterol in VLDL [Mass/Vol] 55 mg/dL [facility] Coagulation Profileon 2022 aPTT Coag (Bld) [Time] 28.8 s Normal 25.1-36.5 [facility] Comment on above: Result Comment: A he matocrit value greater than 55% may lead to inaccurate results in coagulation testing. Patients having hematocrit values >55% require a special collection tube for coagulation studies. Please contact the laboratory at [phone] for redraw instructions. PERFORMED BY: [facility] [address] [place] [address] PATHOLOGIST GAME ARTIST KEVYN DAVIDSON M.D. Performed By: #### B UN, CBC, CREAT, PP, LYTES, LIPID #### [facility] [address] INR Coag (PPP) [Relative time] 0.9 {INR} Normal [facility] Comment on above: Result Comment: INR Therapeutic Range A) Pre- and Peroperative OAT started two weeks before surgery. NOT HIP SURGERY: 1.5 - 2.5 HIP SURGERY: 2 - 3 B) Primary and secondary prevention of venous THROMBOSIS: 2 - 3 C) Active venous thrombosis, pulmonary embolism and prevention of recurrent venous thrombosis: 2 - 3 D) Prevention of arterial thromboembolism including patients with mechanical heart valves: 3 - 4.5 Performed By: #### B UN, CBC, CREAT, PP, LYTES, LIPID #### [address] PT Coag (PPP) [Time] 11.2 s Normal 9.0-12.9 [facility] Comment on above: Result Comment: A he matocrit value greater than 55% may lead to inaccurate results in coagulation testing. Patients having hematocrit values >55% require a special collection tube for coagulation studies. Please contact the laboratory at [phone] for redraw instructions. Performed By: #### B UN, CBC, CREAT, PP, LYTES, LIPID #### [address] Complete Blood Count Auto Di ffon 03-20-2023 Basophils (Bld) [#/Vol] 0.0 10*3/uL Normal 0.0-0.2 [facility] Comment on above: Result Comment: PERF ORMED BY: [place] [address] PATHOLOGIST GAME ARTIST KEVYN DAVIDSON M.D. Performed By: #### B UN, CBC, CREAT, PP, LYTES, LIPID #### [address] Basophils/100 WBC (Bld) 0.4 % Normal . [facility] Comment on above: Performed By: #### B UN, CBC, CREAT, PP, LYTES, LIPID #### [address] Eosinophils (Bld) [#/Vol] 0.3 10*3/uL Normal 0.0-0.45 [facility] Comment on above: Performed By: #### B UN, CBC, CREAT, PP, LYTES, LIPID #### [address] Eosinophils/100 WBC (Bld) 4.1 % Normal . [facility] Comment on above: Performed By: #### B UN, CBC, CREAT, PP, LYTES, LIPID #### [address] Erythrocyte distribution width (RBC) [Ratio] 14.4 % Normal 11.9-15.3 [facility] Comment on above: Performed By: #### B UN, CBC, CREAT, PP, LYTES, LIPID #### [address] Hematocrit (Bld) [Volume fraction] 47.2 % High 34.0-46.4 [facility] Comment on above: Performed By: #### B UN, CBC, CREAT, PP, LYTES, LIPID #### [address] Hemoglobin (Bld) [Mass/Vol] 16.0 g/dL High 11.8-15.4 [facility] Comment on above: Performed By: #### B UN, CBC, CREAT, PP, LYTES, LIPID #### [address] Lymphocytes (Bld) [#/Vol] 2.5 10*3/uL Normal 1.00-4.8 [facility] Comment on above: Performed By: #### B UN, CBC, CREAT, PP, LYTES, LIPID #### [address] Lymphocytes/100 WBC (Bld) 34.2 % Normal . [facility] Comment on above: Performed By: #### B UN, CBC, CREAT, PP, LYTES, LIPID #### [address] MCH (RBC) [Entitic mass] 30.5 pg Normal 24.7-34.3 [facility] Comment on above: Performed By: #### B UN, CBC, CREAT, PP, LYTES, LIPID #### [address] MCV (RBC) [Entitic vol] 89.9 fL Normal 80-100 [facility] Comment on above: Performed By: #### B UN, CBC, CREAT, PP, LYTES, LIPID #### [address] Mean Corpuscular HGB Conc 33.9 g/dL Normal 32.0-35.0 [facility] Comment on above: Performed By: #### B UN, CBC, CREAT, PP, LYTES, LIPID #### [address] Monocytes (Bld) [#/Vol] 0.6 10*3/uL Normal 0.0-0.8 [facility] Comment on above: Performed By: #### B UN, CBC, CREAT, PP, LYTES, LIPID #### [address] Monocytes/100 WBC (Bld) 8.4 % Normal . [facility] Comment on above: Performed By: #### B UN, CBC, CREAT, PP, LYTES, LIPID #### [address] Neutrophils (Bld) [#/Vol] 3.8 10*3/uL Normal 1.8-7.7 [facility] Comment on above: Performed By: #### B UN, CBC, CREAT, PP, LYTES, LIPID #### [address] Neutrophils/100 WBC (Bld) 52.9 % Normal . [facility] Comment on above: Performed By: #### B UN, CBC, CREAT, PP, LYTES, LIPID #### [address] NRBC% 0.1 /100{WBC} Normal 0-0.5 [facility] Comment on above: Performed By: #### B UN, CBC, CREAT, PP, LYTES, LIPID #### [address] Platelet mean volume (Bld) [Entitic vol] 8.0 fL Normal 6.3-10.7 [facility] Comment on above: Performed By: #### B UN, CBC, CREAT, PP, LYTES, LIPID #### [address] Platelets (Bld) [#/Vol] 232 10*3/uL Normal 150-450 [facility] Comment on above: Performed By: #### B UN, CBC, CREAT, PP, LYTES, LIPID #### [address] RBC (Bld) [#/Vol] 5.25 10*6/uL High 3.60-5.00 [facility] Comment on above: Performed By: #### B UN, CBC, CREAT, PP, LYTES, LIPID #### [address] WBC (Bld) [#/Vol] 7.3 10*3/uL Normal 3.8-11.6 [facility] Comment on above: Performed By: #### B UN, CBC, CREAT, PP, LYTES, LIPID #### [address] Creatinineon 03-20-2023 Creatinine [Mass/Vol] 0.83 mg/dL Normal 0.60-1.20 [facility] Comment on above: Performed By: #### B UN, CBC, CREAT, PP, LYTES, LIPID #### [address] GFR/1.73 sq M.predicted MDRD (S/P/Bld) [Vol rate/Area] mL/min/{1.73_m2} Normal [facility] Comment on above: Performed By: #### B UN, CBC, CREAT, PP, LYTES, LIPID #### [address] Creatinine [Mass/volume] in Serum or PlasmaOrdered By: Patrizia Melendrez on 03-20-2023 Creatinine [Mass/Vol] 0.83 mg/dL 0.60-1.20 [facility] Electrolyteson 03-20-2023 Anion gap [Moles/Vol] 8.5 mmol/L Normal 6.0-15.0 [facility] Comment on above: Performed By: #### B UN, CBC, CREAT, PP, LYTES, LIPID #### [address] Chloride [Moles/Vol] 105 mmol/L Normal 98-107 [facility] Comment on above: Performed By: #### B UN, CBC, CREAT, PP, LYTES, LIPID #### [address] CO2 [Moles/Vol] 28.8 mmol/L Normal 21.0-31.0 [facility] Comment on above: Performed By: #### B UN, CBC, CREAT, PP, LYTES, LIPID #### [address] Potassium [Moles/Vol] 4.3 mmol/L Normal 3.5-5.1 [facility] Comment on above: Performed By: #### B UN, CBC, CREAT, PP, LYTES, LIPID #### [address] Sodium [Moles/Vol] 138 mmol/L Normal 136-145 [facility] Comment on above: Performed By: #### B UN, CBC, CREAT, PP, LYTES, LIPID #### [address] Eosinophils Auto (Bld) [#/Vo l]Ordered By: Patrizia Melendrez on 03-20-2023 Eosinophils (Bld) [#/Vol] 0.3 10*3/uL 0.0-0.45 [facility] Eosinophils/100 WBC Auto (Bl d)Ordered By: Patrizia Melendrez on 03-20-2023 Eosinophils/100 WBC (Bld) 4.1 % . [facility] Erythrocyte distribution wid th Auto (RBC) [Ratio]Ordered By: Patrizia Melendrez on 03-20-2023 Erythrocyte distribution width (RBC) [Ratio] 14.4 % 11.9-15.3 [facility] Hematocrit Auto (Bld) [Volum e fraction]Ordered By: Patrizia Melendrez on 03-20-2023 Hematocrit (Bld) [Volume fraction] 47.2 % 34.0-46.4 [facility] Hemoglobin [Mass/volume] in BloodOrdered By: Patrizia Melendrez on 03-20-2023 Hemoglobin (Bld) [Mass/Vol] 16.0 g/dL 11.8-15.4 [facility] INR in Platelet poor plasma by Coagulation assayOrdered By: Patrizia Melendrez on 03-20-2023 INR Coag (PPP) [Relative time] 0.9 {INR} [facility] Comment on above: INR Therapeutic Rang e A) Pre- and Peroperative OAT started two weeks before surgery. NOT HIP SURGERY: 1.5 - 2.5 HIP SURGERY: 2 - 3B) Primary and secondary prevention of venous THROMBOSIS: 2 - 3C) Active venous thrombosis, pulmonary embolismand prevention of recurrent venous thrombosis: 2 - 3D) Prevention of arterial thromboembolismincluding patients with mechanical heart valves: 3 - 4.5 Leukocytes [#/volume] correc jaylan for nucleated erythrocytes in Blood by Automated counOrdered By: Patrizia Melendrez on 03-20-2023 WBC corrected for nucl RBC Auto (Bld) [#/Vol] 7.3 10*3/uL 3.8-11.6 [facility] Lipid Panelon 03-20-2023 Cholesterol [Mass/Vol] 270 mg/dL High 140-200 [facility] Comment on above: Result Comment: Chol less than 200 mg/dl low risk Chol 201-239 mg/dl borderline risk Chol 240 mg/dl and greater high risk Performed By: #### B UN, CBC, CREAT, PP, LYTES, LIPID #### [facility] [address] Cholesterol in HDL [Mass/Vol] 45 mg/dL Normal 23-92 [facility] Comment on above: Result Comment: HDL CHOL ATP-III CLASSIFICATION Cardiovascular Risk HDL > or equal to 60 mg/dL LOW HDL < 40 mg/dL HIGH Performed By: #### B UN, CBC, CREAT, PP, LYTES, LIPID #### [facility] [address] Cholesterol.total/Chol esterol in HDL [Mass ratio] 6.0 {ratio} Normal <5.0 [facility] Comment on above: Result Comment: PERF ORMED BY: [place] [address] PATHOLOGIST GAME ARTIST KEVYN DAVIDSON M.D. Performed By: #### B UN, CBC, CREAT, PP, LYTES, LIPID #### [address] LDL Cholesterol,Calculated 170 mg/dL High 0-100 [facility] Comment on above: Result Comment: LDL ATP III CLASSIFICATION LDL less than 100 mg/dL Optimal LDL 100-129 mg/dL Near or above optimal LDL 130-159 mg/dL Borderline high LDL 160-189 mg/dL High LDL greater than 189 mg/dL Very high Performed By: #### B UN, CBC, CREAT, PP, LYTES, LIPID #### [address] Triglyceride w/Reflex 277 mg/dL High 0-149 [facility] Comment on above: Result Comment: TRIG ATP III CLASSIFICATION TRIG less than 150 mg/dL Normal TRIG 150-199 mg/dL Borderline high TRIG 200-500 mg/dL High TRIG greater than 500 mg/dL Very high Standard traceable to the Center for Disease Conrtrol and Prevention (CDC) test method. Performed By: #### B UN, CBC, CREAT, PP, LYTES, LIPID #### [facility] [address] VLDL CHOLESTEROL 55 mg/dL Normal [facility] Comment on above: Performed By: #### B UN, CBC, CREAT, PP, LYTES, LIPID #### [facility] [address] [place] [id number] [facility] Lymphocytes Auto (Bld) [#/Vo l]Ordered By: Patrizia Melendrez on 03-20-2023 Lymphocytes (Bld) [#/Vol] 2.5 10*3/uL 1.00-4.8 [facility] Lymphocytes/100 WBC Auto (Bl d)Ordered By: Patrizia Melendrez on 03-20-2023 Lymphocytes/100 WBC (Bld) 34.2 % . [facility] MCH Auto (RBC) [Entitic mass ]Ordered By: Patrizia Melendrez on 03-20-2023 MCH (RBC) [Entitic mass] 30.5 pg 24.7-34.3 [facility] MCHC Auto (RBC) [Mass/Vol]Or dered By: Patrizia Melendrez on 03-20-2023 MCHC (RBC) [Mass/Vol] 33.9 g/dL 32.0-35.0 [facility] MCV Auto (RBC) [Entitic vol] Ordered By: Patrizia Melendrez on 03-20-2023 MCV (RBC) [Entitic vol] 89.9 fL 80-100 [facility] Monocytes Auto (Bld) [#/Vol] Ordered By: Patrizia Melendrez on 03-20-2023 Monocytes (Bld) [#/Vol] 0.6 10*3/uL 0.0-0.8 [facility] Monocytes/100 WBC Auto (Bld) Ordered By: Patrizia Melendrez on 03-20-2023 Monocytes/100 WBC (Bld) 8.4 % . [facility] Neutrophils Auto (Bld) [#/Vo l]Ordered By: Patrizia Melendrez on 03-20-2023 Neutrophils (Bld) [#/Vol] 3.8 10*3/uL 1.8-7.7 [facility] Neutrophils/100 WBC Auto (Bl d)Ordered By: Patrizia Melendrez on 03-20-2023 Neutrophils/100 WBC (Bld) 52.9 % . [facility] No Panel InformationOrdered By: Patrizia Melendrez on 03-20-2023 Estimated GFR (CKD-EPI) > 60.0 mL/Min [facility] Creatinine Clearance (Chem N/A [facility] Nucleated erythrocytes [Pres ence] in Blood by Automated countOrdered By: Patrizia Melendrez on 03-20-2023 Nucleated RBC Auto Ql (Bld) 0.1 /100{WBC} 0-0.5 [facility] Platelet mean volume Auto (B ld) [Entitic vol]Ordered By: Patrizia Melendrez on 03-20-2023 Platelet mean volume (Bld) [Entitic vol] 8.0 fL 6.3-10.7 [facility] Platelets Auto (Bld) [#/Vol] Ordered By: Patrizia Melendrez on 03-20-2023 Platelets (Bld) [#/Vol] 232 10*3/uL 150-450 [facility] Potassium [Moles/volume] in Serum or PlasmaOrdered By: Patrizia Melendrez on 03-20-2023 Potassium [Moles/Vol] 4.3 mmol/L 3.5-5.1 [facility] Prothrombin time (PT)Ordered By: Patrizia Melendrez on 03-20-2023 PT Coag (PPP) [Time] 11.2 s 9.0-12.9 [facility] Comment on above: A hematocrit value g reater than 55% may lead to inaccurate results in coagulation testing. Patients having hematocrit values >55% require a special collection tube for coagulation studies. Please contact the laboratory at [phone] for redraw instructions. RBC Auto (Bld) [#/Vol]Ordere d By: Patrizia Melendrez on 03-20-2023 RBC (Bld) [#/Vol] 5.25 10*6/uL 3.60-5.00 [facility] Serum or plasma anion gap de terminationOrdered By: Patrizia Melendrez on 03-20-2023 Anion gap [Moles/Vol] 8.5 mmol/L 6.0-15.0 [facility] Serum or plasma high density lipoprotein (HDL) cholesterol measurementOrdered By: Patrizia Melendrez on 03-20-2023 Cholesterol in HDL [Mass/Vol] 45 mg/dL 23-92 [facility] Comment on above: HDL CHOL ATP-III CLA SSIFICATION Cardiovascular RiskHDL > or equal to 60 mg/dL LOWHDL < 40 mg/dL HIGH Serum or plasma total choles terol/high density lipoprotein (HDL) cholesterol mass ratOrdered By: Patrizia Melendrez on 03-20-2023 Cholesterol.total/Chol esterol in HDL [Mass ratio] 6.0 {ratio} <5.0 [facility] Sodium [Moles/volume] in Ser um or PlasmaOrdered By: Patrizia Melendrez on 03-20-2023 Sodium [Moles/Vol] 138 mmol/L 136-145 [facility] Triglyceride [Mass/volume] i n Serum or PlasmaOrdered By: Patrizia Melendrez on 03-20-2023 Triglyceride [Mass/Vol] 277 mg/dL 0-149 [facility] Comment on above: TRIG ATP III CLASSIF ICATIONTRIG less than 150 mg/dL NormalTRIG 150-199 mg/dL Borderline highTRIG 200-500 mg/dL High TRIG greater than 500 mg/dL Very highStandard traceable to the Center for Disease Conrtrol and Prevention (CDC) test method. Urea nitrogen [Mass/volume] in Serum or PlasmaOrdered By: Patrizia Melendrez on 03-20-2023 Urea nitrogen [Mass/Vol] 21 mg/dL 7-25 [facility] WBC Auto (Bld) [#/Vol]Ordere d By: Patrizia Melendrez on 03-20-2023 WBC (Bld) [#/Vol] 7.3 10*3/uL 3.8-11.6 [facility] CREATININEon 10-01-2022 Creatinine [Mass/Vol] 0.73 mg/dL Normal 0.55-1.02 [facility] Comment on above: Performed By: #### C PRISCILLA ####[facility] [address] [place] [address]Dr. Gonzalo Willis EGFR-AF SAMMARINESE >60 Normal >=60 [facility] Comment on above: Performed By: #### C PRISCILLA ####[facility] [address] [place] [id number] Willis EGFR-NON AF SAMMARINESE >60 Normal >=60 [facility] Comment on above: Performed By: #### C PRISCILLA ####[facility] [address] [place], [place] [address] NECK ST WO W CONon [address] WO W CON EXAMINATION: CT NECK ST WO W CON HISTORY: Mass of neck ; mass anterior right neck for 4+ months COMPARISON: No relevant comparison available. TECHNIQUE: Axial, Coronal, and Sagittal CT images created with IV contrast. Dose reduction techniques were achieved by using automated exposure control and/or adjustment of mA and/or kV according to patient size and/or use of iterative reconstruction technique. FINDINGS: NASOPHARYNX: No asymmetry of the fossae of Rosenmuller and torus tubarius. ORAL CAVITY: No visible mass. OROPHARYNX: No asymmetry of the facial and lingual tonsils. HYPOPHARYNX: No mass or other visible lesion. LARYNX: No mass or asymmetry of the vocal cords. SINUSES: No significant fluid or mucosal thickening. NECK GLADS: Slightly heterogeneous thyroid gland. Unremarkable parotid and salivary glands. LYMPH NODES: No pathological-appearing or enlarged lymph nodes. VASCULATURE: No suspicious abnormality. BONES: Reversal normal lordotic curvature. Large posterior disc-osteophyte complex at C4-C5 causing central canal narrowing. OTHER: A skin surface marker overlying the lower right neck anterior to the sternocleidomastoid muscle and just cephalad to the right sternoclavicular joint. IMPRESSION: 1. No appreciable mass, fluid collection, or abnormal findings correspond to the skin surface marker which localizes the patient's palpable lump. Patient may be palpating the anterior margin of the sternocleidomastoid muscle or the sternoclavicular joint. Electronically authenticated by: SHAWN SOLIS Date: 2022-10-01 09:51 Normal [facility] US THYROIDon 09-04-2022 US THYROID EXAMINATION: US THYR OID HISTORY: Mass of neck COMPARISON: No relevant comparison available. FINDINGS: RIGHT LOBE: Contains a 1.6 x 1.4 x 1.1 cm spongiform benign-appearing nodule; TR 1. Posterior to the inferior pole of the right lobe is a 3.0 x 1.4 x 1.1 cm hypoechoic, slightly heterogeneous area/nodule; nonspecific. Lobe size: 4.8 x 1.8 x 1.9 cm LEFT LOBE: Contains a 0.5 cm TR 4 nodule within mid body. 1.8 cm benign-appearing mid body nodule (tr1) and a 0.7 cm benign-appearing tr1 nodule within superior pole noted. Lobe size: 5.6 x 1.8 x 2.1 cm ISTHMUS: Contains a 7 x 6 x 3 mm TR 4 nodule. Thickness: 6 mm IMPRESSION: 1. Heterogeneous thyroid gland with several benign-appearing nodules, 2 small nonspecific TR 4 nodules. Follow-up in one year is recommended. TR4 (moderately suspicious): If > 1.0 cm Follow-up ultrasound in 1, 2, 3, and 5 years. If > 1.5 cm fine needle aspiration (FNA). Electronically authenticated by: SHAWN SOLIS Date: 2022-09-04 16:52 Normal [facility] US CAROTID ART BILon 023 US CAROTID ART LOVE EXAMINATION: US ATKINSON TID ART LOVE HISTORY: Cardiovascular symptoms COMPARISON: No relevant comparison available. TECHNIQUE: Duplex Doppler ultrasound analysis of carotid and vertebral arteries. . Bilateral carotid arterial duplex examination was performed using B-mode, color flow and spectral analysis. Carotid stenosis is reported according to validated velocity parameters, similar to NASCET criteria. FINDINGS: RIGHT CAROTID ARTERY Mild atherosclerotic plaque Subclavian: PSV: 167.0 cm/s cm/s EDV: 0.0 cm/s cm/s CCA: Prox: PSV: 83.4 cm/s cm/s EDV: 9.1 cm/s cm/s Mid: PSV: 83.8 cm/s cm/s EDV: 17.6 cm/s cm/s Distal: PSV: 80.6 cm/s cm/s EDV: 12.8 cm/s cm/s BULB: PSV: 67.7 cm/s cm/s EDV: 11.1 cm/s cm/s ICA: Prox: PSV: 58.1 cm/s cm/s EDV: 8.7 cm/s cm/s Mid: PSV: 80.1 cm/s cm/s EDV: 19.7 cm/s cm/s Distal: PSV: 63.6 cm/s cm/s EDV: 16.4 cm/s cm/s ECA: PSV: 96.8 cm/s cm/s EDV: 9.5 cm/s cm/s VERTEBRAL: PSV: 39.2 cm/s cm/s EDV: 6.9 cm/s cm/s ICA/CCA ratio: PSV: 1.0 EDV: 1.1 LEFT CAROTID ARTERY Moderate atherosclerotic, 71% area reduction in the bulb. Abnormal left vertebral waveform Subclavian: PSV: 150.8 cm/s cm/s EDV: 0.0 cm/s CCA: Prox: PSV: 118.3 cm/s cm/s EDV: 23.0 cm/s Mid: PSV: 101.9 cm/s cm/s EDV: 20.7 cm/s Distal: PSV: 83.3 cm/s cm/s EDV: 23.0 cm/s BULB: PSV: 85.6 cm/s cm/s EDV: 23.0 cm/s ICA: Prox: PSV: 101.8 cm/s cm/s EDV: 23.0 cm/s Mid: PSV: 80.9 cm/s cm/s EDV: 27.6 cm/s Distal: PSV: 85.5 cm/s cm/s EDV: 23.0 cm/s ECA: PSV: 210.7 cm/s cm/s EDV: 18.4 cm/s VERTEBRAL: PSV: 31.7 cm/s cm/s EDV: 10.4 cm/s ICA/CCA ratio: PSV: 0.9 EDV: 1.0 IMPRESSION: 0-49% flow stenosis bilateral internal carotid arteries 71% area reduction of left carotid bulb Spectral Doppler US Thresholds (Reference: Alli EG, et al. Radiology 2000; 214:247-252) Stenosis (%) PSV (cm/sec) VICA/VCCA 0-49 <150 <2.5 50-69 150-225 2.5-4.0 >70 >225 >4.0 Electronically authenticated by: NISA HOLLOWAY Date: 2022-08-22 17:29 Normal [facility] Office Visit (Cardiology)on 07-19-2022 Follow-up visit Diagnoses/Problems Assessed Diabetes mellitus with no complication (250.00) (E11.9) Hyperlipemia (272.4) (E78.5) Former smoker (V15.82) (Z87.891) Class 1 obesity with body mass index (BMI) of 31.0 to 31.9 in adult (278.00,V85.31) (E66.9,Z68.31) Orders Class 1 obesity with body mass index (BMI) of 31.0 to 31.9 in adult Healthy Weight Tips; Status:Complete; Done: 19Jul2022 Some eating tips that can help you lose weight.; Status:Complete; Done: 19Jul2022 Hyperlipemia IO EKG Electrocardiogram- 12 Lead; Status:Complete; Done: 19Jul2022 SocHx: Former smoker Tobacco Use Screening; Status:Complete; Done: 19Jul2022 Patient Instructions Please bring all medicines, vitamins, and herbal supplements with you when you come to the office. Prescriptions will not be filled unless you are compliant with your follow up appointments or have a follow up appointment scheduled as per instruction of your physician. Refills should be requested at the time of your visit. keep carotid US as scheduled Follow up as needed only Chief Complaint ELIZABETH QUEZADA is being seen for a consultation for dizziness, fatigue and palpitations. History of Present Illness Patient is seen in consultation at the request of her primary care provider for recent abnormal test results She is individual who expressed anxiety regarding heart disease because of family history. Curiously she is aerobically active with no symptoms whatsoever. I cannot elicit any angina CHF or arrhythmia symptoms. Nonetheless she had a stress perfusion study demonstrated no ischemia and no infarct. This study did, though, suggest ejection fraction 47%. At the same time an echocardiogram was done and it was basically normal with a normal ejection fraction of 60% and no other structural heart disease. I explained to her and her that we believe the ejection fraction of 60% by echo because its more accurate in predicting such matters, as opposed to the ejection fraction estimated from the stress perfusion study. In light of all the above I advised her I detect no suggestion of ischemia, infarct, or cardiomyopathy. Additionally her history is unimpressive and because of all the above we suggest continued risk factor management by treatment of diabetes and hyperlipidemia. She also was congratulated on her recent smoking cessation accomplishment and encouraged to continue tobacco abstinence. Lastly we did articulate to her the benefits of weight loss and diet and she will attempt to implement her recommendations I advised her that in the absence of any heart disease I suspect she should continue medical therapy as before without change and see us henceforth as needed. Surgical History Problems History of Carpal tunnel surgery History of Colonoscopy History of Tonsillectomy with adenoidectomy History of Trigger finger repair History of Tubal ligation Current Meds Medication NameInstruction ALPRAZolam 0.25 MG Oral TabletTAKE 1 TABLET BY MOUTH ONCE A DAY NEEDED Aspirin EC 81 MG Oral Tablet Delayed ReleaseTAKE 1 TABLET DAILY. Ezetimibe 10 MG Oral TabletTAKE ONE TABLET BY MOUTH ONCE DAILY Ibuprofen 800 MG Oral TabletTAKE ONE TABLET BY MOUTH FOUR TIMES A DAY NEEDED Jardiance 10 MG Oral TabletTAKE ONE TABLET BY MOUTH ONCE DAILY Magnesium Oxide 420 (252 Mg) MG Oral TabletTake 1 tablet daily metFORMIN HCl - 1000 MG Oral TabletTAKE 2 TABLET Daily Oxybutynin Chloride 5 MG Oral TabletTAKE 2 TABLET BY MOUTH ONCE A DAY Potassium Gluconate 595 (99 K) MG Oral TabletTAKE 1 TABLET DAILY. Varenicline Tartrate 0.5 MG X 11 AND 1 MG X 42 Oral Tablet Therapy Packas directed Venlafaxine HCl ER 75 MG Oral Capsule Extended Release 24 HourTAKE 1 CAPSULE ONCE DAILY WITH FOOD. Ventolin HFA 108 (90 Base) MCG/ACT Inhalation Aerosol SolutionINHALE 2 PUFFS FOUR TIMES A DAY NEEDED Vitamin D3 50 MCG (2000 UT) Oral CapsuleTAKE 1 CAPSULE Daily Patient did not bring medication list or bottles. Updated verbally with patient Allergies Medication tetracycline Adverse Reaction; Gatrointestinal upset; Recorded By: Kathya Gudino; 07/19/2022 1:15:53 PM Family History Mother Family history of cardiac disorder (V17.49) (Z82.49) Father Family history of cardiac disorder (V17.49) (Z82.49) Brother Family history of cardiac disorder (V17.49) (Z82.49) Family history of malignant neoplasm (V16.9) (Z80.9) Social History Problems Daily caffeine consumption Former smoker (V15.82) (Z87.891) Illicit drug use (305.90) (F19.90) gummies, and pot Social alcohol use (V49.89) (Z78.9) Review of Systems Constitutional: not feeling tired. Eyes: no eyesight problems. ENT: no hearing loss and no nosebleeds. Cardiovascular: no intermittent leg claudication and as noted in HPI. Respiratory: no chronic cough and no shortness of breath. Gastrointestinal: no change in bowel habits and no blood in stools. Genitourinary: no urinary frequency. Skin: no skin rashes. Neurological: no s (more content not included)... Normal Letsgofordinner Tobacco Screening.on 023 Adult depression screening assessment No [facility] FitBioniccheo jacques 250 DO Work Phone: Fall risk assessment a) No falls within the last year [facility] PrintlandMario Alberto jacques 250 DO Work Phone: Tobacco use status [facility] b) No [facility] Bee ShieldJamilah jacques 250 DO Work Phone: ECHOCARDIO M/2D COMPLETEon 1 07-29-2021 ECHOCARDIO M/2D COMPLETE Patient: ELIZABETH QUEZADA Exam Date: 05/28/2022 : 1960 Gender:F Ordering : DR NANO MUHAMMAD . Admission #: [id number] Family : Order #: [id number] CLICK HERE TO VIEW EXAM ECHOCARDIOGRAM REPORT PROCEDURE: CARDIO PULMONARY ECHOCARDIO M/2D COMP INDICATIONS: Dyspnea on exertion, smoker, diabetes COMPARISON: None. DESCRIPTION: COMPLETE ECHOCARDIOGRAM Real-time transthoracic echocardiography with 2D, M-mode, spectral and color flow Doppler performed. QUALITY: Technical quality was good. LEFT VENTRICLE: Normal chamber size. Mild concentric left ventricular hypertrophy. LV EF: Global left ventricular systolic function is normal; visually estimated ejection fraction is 55 to 60%. No significant wall motion abnormalities. DIASTOLIC: Diastolic function is indeterminate. ATRIAL SEPTUM: Visually appears intact. LEFT ATRIUM: Normal chamber size. RIGHT ATRIUM: Normal chamber size. RIGHT VENTRICLE: Normal chamber size. Normal systolic function. TRICUSPID VALVE: Normal mobility and thickness. No stenosis with trivial regurgitation. Doppler studies reveal mildly (35-45) elevated right sided pressures. RVSP 45 mmHg MITRAL VALVE: Normal mobility and thickness. No evidence of mitral valve stenosis. Mild mitral annular calcification. Trivial mitral regurgitation. AORTIC VALVE: Normal trileaflet appearance. No visible sclerosis. Normal leaflet mobility. No evidence of aortic valve stenosis. No aortic regurgitation. AORTIC ROOT: Normal diameter and appearance. PULMONIC VALVE: Not well visualized. No stenosis. No regurgitation. PERICARDIUM: Anterior free space; trivial effusion versus fat pad. IVC: Collapses with inspirations. CONCLUSION: Global left ventricular systolic function is normal; visually estimated ejection fraction 55 to 60%. No significant wall motion normalities. Mild left ventricle hypertrophy. Diastolic function is indeterminate. Right ventricle is normal in size and systolic function. Doppler studies suggest mildly elevated right-sided pressures. Anterior free space; trivial effusion versus fat pad. Adult Echocardiography Procedure Report Left Ventricle LVEDD (3.7 - 5.6 cm): 4.30 cm LVESD (2.2 - 4.0 cm): 3.02 cm LVIVS thickness (0.6 - 1.2 cm): 1.15 cm LVPW thickness (0.5 - 1.0 cm): 1.09 cm e': 0.08 m/s E - e': 8.08 LVOT Max Gradient: 2.79 mm[Hg] Peak Velocity (LVOT): 0.84 m/s LVOT Diameter 2.05 cm Left Ventricular Ejection Fraction: 57.21 %, 57.21 % Left Atrium LA Volume Index (2D A2C): 47.65 ml, 47.65 ml Left Atrium Systolic Dimension: 3.96 cm Mitral Valve MV E to A Ratio: 0.70 Mitral Valve A-Wave Peak Velocity: 0.96 m/s Mitral Valve E-Wave Peak Velocity: 0.68 m/s Right Ventricle Aorta AO Root Diam: 3.27 cm Aortic Valve AoV Area (Peak Osvaldo): 1.86 cm2, 1.86 cm2 Peak Velocity(Antegrade Flow): 1.47 m/s Peak Gradient(Antegrade Flow): 8.67 mm[Hg] Tricuspid Valve Peak Velocity (Regurgitant Flow): 3.26 m/s Peak Velocity: 0.58 m/s Pulmonic Valve Peak Velocity: 0.36 m/s, 1.03 m/s Peak Gradient: 0.52 mm[Hg], 4.27 mm[Hg] Right Atrium Right Atrium Systolic Pressure: 35.96 ml, 35.96 ml Dictated by: Jacklyn Kamara M.D. on 05/30/2022 at 11:03 Approved by: Jacklyn Kamara M.D. on 05/30/2022 at 11:06 Normal [facility] MG MAMM SCREEN 3D LOVE CADon 05-25-2022 MG MAMM SCREEN 3D LOVE CAD Patient: ELIZABETH QUEZADA Exam Date: 05/25/2022 : 1960 Gender:F Ordering : DR NANO MUHAMMAD . Admission #: [id number] Family : Order #: [id number] CLICK HERE TO VIEW EXAM RADIOLOGY REPORT PROCEDURE: MAMMOGRAM SCREENING 3D BILATERAL CAD COMPARISON: MG MAMM SCREEN LOVE W CAD, 03/28/2020. MG MAMM SCREEN 3D LOVE CAD, 03/29/2021. INDICATIONS: Screening mammography Calculator Name NCI Breast Cancer Risk Assessment Tool 5 Year Breast Cancer Risk 2.10% Lifetime Breast Cancer Risk 8.40% Personal Breast Cancer No Personal Ovarian Cancer No Treatments None Family Cancers Aunt-maternal with breast cancer at age 60; Brother with lung cancer at age 58; Brother with lung cancer at age 60. LOCATION: [facility] BREAST COMPOSITION: Almost entirely fatty. FINDINGS: DIAGNOSTIC CATEGORY 1--NEGATIVE. NO CHANGE FROM COMPARISON ASSESSMENT. Scattered benign-appearing calcifications are present. Scattered benign-appearing lymph nodes are present. RIGHT BREAST: No significant suspicious finding. LEFT BREAST: No significant suspicious finding. RECOMMENDATIONS: ROUTINE MAMMOGRAM AND CLINICAL EVALUATION IN 12 MONTHS. PLEASE NOTE: A NORMAL MAMMOGRAM DOES NOT EXCLUDE THE POSSIBILITY OF BREAST CANCER. A CLINICALLY SUSPICIOUS PALPABLE LUMP SHOULD BE BIOPSIED. Dictated by: Nisa Holloway MD on 05/25/2022 at 09:49 Approved by: Nisa Holloway MD on 05/25/2022 at 09:51 Normal [facility] NM STRESS/REST MULTIon 05-22 NM STRESS/REST MULTI Patient: EMILY QUEZADA Exam Date: 05/22/2022 : 1960 Gender:F Ordering : DR NANO MUHAMMAD . Admission #: [id number] Family : Order #: [id number] CLICK HERE TO VIEW EXAM RADIOLOGY REPORT PROCEDURE: RADIONUCLIDE IMAGING STRESS/REST MULTI COMPARISON: None. INDICATIONS: Chest pain TECHNIQUE: Exam Description: Stress/Rest two day protocol gated SPECT Rest Imagin.7 mCi Tc-99m Cardiolite IV on 05/22/2022 Stress Imaging 30.3 mCi Tc-99m Cardiolite IV on 05/22/2022 Exercise Protocol: 0.4 mg Lexiscan given IV Heart Rate (bpm): Rest: 65 Max: 100 PMHR: 64 Blood Pressure: Rest: 154/90 Max: 160/98 Symptoms: Rest and peak stress ECG findings were normal and the exercise portion of the study was normal per attending physician Dr. Rios . For more details please see separate cardiac stress test report. FINDINGS: QUALITY OF STUDY: Excellent. PERFUSION DEFECT: LOCATION: Basal inferior. Mid-inferior. Apical inferior. SIZE: Medium (3-4 segments). SEVERITY: Moderate. TYPE: Persistent. WALL MOTION: Mild hypokinesis: Global LV SIZE: Normal. 114 mL. TID / TCD: None; 0.9 LVEF: Abnormal. Calculated EF 45%. SUMMARY: Myocardial perfusion imaging study has ABNORMAL findings. CONCLUSION: 1. No acute or reversible ischemia. 2. Inferior wall diaphragm attenuation artifact versus fixed perfusion defect. 3. Decreased wall motion throughout consistent with global hypokinesis. 4. Abnormal, low ejection fraction, 45%. 5. Left ventricle volume is normal, but approaches upper limits of normal. Dictated by: Shawn Solis M.D. on 05/22/2022 at 15:53 Approved by: Shawn Solis M.D. on 05/22/2022 at 15:59 Normal [facility] CT LUNG CANCER SCREENINGon 1 07-11-2021 CT LUNG CANCER SCREENING EXAMINATION: CT LUNG CANCER SCREENING HISTORY: Tobacco dependence caused by cigarettes COMPARISON: 02/24/2021 TECHNIQUE: Axial, Coronal, and Sagittal images were created without the administration of IV contrast material. Dose reduction techniques were achieved by using automated exposure control and/or adjustment of mA and/or kV according to patient size and/or use of iterative reconstruction technique. FINDINGS: LUNGS: Scattered areas of punctate and ill-defined opacities the largest ill-defined mildly spiculated groundglass density in the right upper lobe measures 11.6 x 9.0 mm axial image 49 and appears stable from the prior exam accounting for differences in slice selection. No new significant pulmonary nodule or mass is observed. PLEURA: No mass, effusion, or pneumothorax. VASCULATURE: No abnormality. RHETT: No mass or pathologic adenopathy. MEDIASTINUM: No mass or pathologic adenopathy. CARDIAC: No enlargement or pericardial effusion. Moderate to heavy coronary atherosclerosis AORTA: No aneurysm or dissection. CHEST WALL: No mass or axillary adenopathy BONES: No bone lesion or fracture. LIMITED ABDOMEN: No suspicious findings. Limited images of the upper abdomen. OTHER: Negative. IMPRESSION: LUNG SCREENING: Lung-RADS Category 2- Benign Appearance or Behavior. Nodules with a very low likelihood of becoming a clinically active cancer due to size or lack of growth. 2. Continue annual screening with LDCT in 12 months. Electronically authenticated by: NISA HOLLOWAY Date: 2022-05-11 15:25 Normal [facility] CBC AUTO DIFFon 05-10-2022 BASO # 0.0 103/ul Normal 0.0-0.1 [facility] Comment on above: Performed By: #### C BC ####[facility] [address] [place] [address]Dr. Gonzalo Willis Basophils/100 WBC (Bld) 0.5 % Normal 0.2-2.0 [facility] Comment on above: Performed By: #### C BC ####[facility] [address] [place], [place] [address]Dr. Gonzalo Willis EO # 0.2 103/ul Normal 0.0-0.7 [facility] Comment on above: Performed By: #### C BC ####[facility] [address] [place], [place] [address]Dr. Gonzalo Willis Eosinophils/100 WBC (Bld) 1.8 % Normal 0.9-7.0 [facility] Comment on above: Performed By: #### C BC ####[facility] [address] [place], [place] [address]Dr. Gonzalo Willis Erythrocyte distribution width (RBC) [Ratio] 12.4 % Normal 11.0-15.0 [facility] Comment on above: Performed By: #### C BC ####[facility] [address] [place], [place] [address]Dr. Gonzalo Willis Hematocrit (Bld) [Volume fraction] 53.7 % Critically high 36.0-48.0 [facility] Comment on above: Performed By: #### C BC ####[facility] [address] [place], [place] [address]Dr. Gonzalo Willis Hemoglobin (Bld) [Mass/Vol] 18.4 g/dL Critically high 12.0-16.0 [facility] Comment on above: Performed By: #### C BC ####[facility] [address] [place] [address]Dr. Gnozalo Willis IG # 0.04 10e3/ul Critically high 0.00-0.03 [facility] Comment on above: Performed By: #### C BC ####[facility] [address] [place] [address]Dr. Gonzalo Willis IG % 0.5 % Normal 0.0-0.5 [facility] Comment on above: Performed By: #### C BC ####[facility] [address] [place] [address]DrMel Willis LYMPH # 2.5 103/ul Normal 1.2-3.8 [facility] Comment on above: Performed By: #### C BC ####[facility] [address] [place], [place] [address]DrMel Willis Lymphocytes/100 WBC (Bld) 29.2 % Normal 20.5-60.0 [facility] Comment on above: Performed By: #### C BC ####[facility] [address] [place], [place] [address]DrMel Willis MANUAL DIFF REQ NO Normal [facility] Comment on above: Performed By: #### C BC ####[facility] [address] [place], [place] [address]DrMel Gonzalo Lazaro MCH (RBC) [Entitic mass] 31.2 pg Normal 26.7-34.0 [facility] Comment on above: Performed By: #### C BC ####[facility] [address] [place], [place] [address]DrMel Gonzalo Lazaro MCHC (RBC) [Mass/Vol] 34.3 g/dL Normal 29.9-35.2 [facility] Comment on above: Performed By: #### C BC ####[facility] [address] [place] [address]DrMel Chantellkaleb Willis MCV (RBC) [Entitic vol] 91.0 fL Normal 81.0-99.0 [facility] Comment on above: Performed By: #### C BC ####[facility] [address] [place], [place] [address]Dr. Gonzalo Willis MONO # 0.6 103/ul Normal 0.3-0.8 [facility] Comment on above: Performed By: #### C BC ####[facility] [address] [place] [address]Dr. Gonzalo Willis Monocytes/100 WBC (Bld) 7.2 % Normal 1.7-12.0 [facility] Comment on above: Performed By: #### C BC ####[facility] [address] [place] [address]Dr. Gonzalo Willis NEUT # 5.3 103/ul Normal 1.4-6.5 [facility] Comment on above: Performed By: #### C BC ####[facility] [address] [place] [address]Dr. Gonzalo Willis Neutrophils/100 WBC (Bld) 60.8 % Normal 43.0-75.0 [facility] Comment on above: Performed By: #### C BC ####[facility] [address] [place], [place] [address]Dr. Gonzalo Willis Platelet mean volume (Bld) [Entitic vol] 9.5 fL Normal 9.5-13.5 [facility] Comment on above: Performed By: #### C BC ####[facility] [address] [place] [address]Dr. Gonzalo Willis PLT 265 103/ul Normal 150-450 [facility] Comment on above: Performed By: #### C BC ####[facility] [address] [place] [address]Dr. Gonzalo Willis RBC 5.90 106/ul Critically high 4.20-5.40 [facility] Comment on above: Performed By: #### C BC ####[facility] [address] [place], [place] [address]Dr. Gonzalo Willis WBC 8.7 103/ul Normal 4.0-11.0 [facility] Comment on above: Performed By: #### C BC ####[facility] [address] [place], [place] [address]Dr. Yikaleb Willis FREE THYROXINE INDEX T7on 11 -17-2022 FTI 2.74 Normal 1.30-4.50 [facility] Comment on above: Performed By: #### T 7, TSH, CMP, LIPID ####[facility] [address] [place] [address]Dr. Gonzalo Willis T3U 33.0 % Normal 30.0-39.0 [facility] Comment on above: Performed By: #### T 7, TSH, CMP, LIPID ####[facility] [address] [place] [id number]. Gonzalo Willis T4 [Mass/Vol] 8.30 ug/dL Normal 4.80-13.90 [facility] Comment on above: Performed By: #### T 7, TSH, CMP, LIPID ####[facility] [address] [place] [address]Dr. Gonzalo Willis GLYCOHEMOGLOBIN A1Con 2021 ADA RECOMMENDATION SEE BELOW Normal [facility] Comment on above: Result Comment: ADA RECOMMENDED LIMIT 4.0 - 6.0 ADA THERAPEUTIC TARGET < 7.0 ACTION SUGGESTED > 7.0 Performed By: #### A 1C ####[facility] [address] [place] [address]Dr. Gonzalo Willis Glucose [Mass/Vol] 192 mg/dL Normal [facility] Comment on above: Performed By: #### A 1C ####[facility] [address] [place] [address]Dr. Gonzalo Willis HbA1c (Bld) [Mass fraction] 8.3 % Critically high 4.5-6.2 [facility] Comment on above: Performed By: #### A 1C ####[facility] [address] [place] [address]Dr. Gonzalo Willis IRONon 05-10-2022 Iron [Mass/Vol] 193.0 ug/dL Critically high 50.0-170.0 [facility] Comment on above: Performed By: #### I REGINALD, VITAD, VITB12 ####[facility] [address] [place] [address]Dr. Gonzalo Willis LIPID PROFILEon 05-10-2022 CHOL-HDL RATIO NORM SEE BELOW Normal [facility] Comment on above: Result Comment: 3.3 - 4.4 LOW RISK 4.4 - 7.1 AVERAGE RISK 7.1 - 11.0 MODERATE RISK >11.0 HIGH RISK Performed By: #### T 7, TSH, CMP, LIPID #### [facility] [address] [address] [address] Gonzalo Willis Cholesterol [Mass/Vol] 262 mg/dL Critically high <=200 [facility] Comment on above: Performed By: #### T 7, TSH, CMP, LIPID #### [facility] [address] [address] [address] Gnozalo Willis Cholesterol in HDL [Mass/Vol] 57 mg/dL Normal 40-60 [facility] Comment on above: Performed By: #### T 7, TSH, CMP, LIPID #### [facility] [address] [place] [address] Dr. Gonzalo Willis Cholesterol in LDL [Mass/Vol] 177.4 mg/dL Normal [facility] Comment on above: Performed By: #### T 7, TSH, CMP, LIPID #### [facility] [address] [address] [address] Gonzalo Willis Cholesterol.total/Chol esterol in HDL [Mass ratio] 4.6 {ratio} Normal [facility] Comment on above: Performed By: #### T 7, TSH, CMP, LIPID #### [facility] [address] [address] [address] Gonzalo Willis HDL NORMAL > or = 60 mg/dl - LO W CARDIOVASCULAR RISK <40 mg/dl - HIGH CARDIOVASCULAR RISK Normal [facility] Comment on above: Performed By: #### T 7, TSH, CMP, LIPID #### [facility] [address] [place] [address] Dr. Gonzalo Willis LDL CALC NORMAL SEE BELOW Normal [facility] Comment on above: Result Comment: <100 mg/dl OPTIMAL 100 - 129 mg/dl NEAR OR ABOVE OPTIMAL 130 - 159 mg/dl BORDERLINE HIGH 160 - 189 mg/dl HIGH >190 mg/dl VERY HIGH Performed By: #### T 7, TSH, CMP, LIPID #### [facility] [address] [address] [address] Gonzalo Willis Triglyceride [Mass/Vol] 138 mg/dL Normal <=150 [facility] Comment on above: Performed By: #### T 7, TSH, CMP, LIPID #### [facility] [address] [address] [address] Gonzalo Willis VLDL CALC 27.6 mg/dL Normal [facility] Comment on above: Performed By: #### T 7, TSH, CMP, LIPID #### [facility] [address] [address] [address] Gonzalo Willis PROF 14(COMP METB)on 022 Albumin [Mass/Vol] 4.3 g/dL Normal 3.4-5.0 [facility] Comment on above: Performed By: #### T 7, TSH, CMP, LIPID #### [facility] [address] [address] [address] Gonzalo Willis Albumin/Globulin [Mass ratio] 1.0 {ratio} Normal [facility] Comment on above: Performed By: #### T 7, TSH, CMP, LIPID #### [facility] [address] [address] [address] Gonzalo Willis ALP [Catalytic activity/Vol] 86 U/L Normal 46-116 [facility] Comment on above: Performed By: #### T 7, TSH, CMP, LIPID #### [facility] [address] [address] [address] Gonzalo Willis ALT [Catalytic activity/Vol] 20 U/L Normal 14-59 [facility] Comment on above: Performed By: #### T 7, TSH, CMP, LIPID #### [facility] [address] [address] [address] Gonzalo Willis Anion gap [Moles/Vol] 11.2 mmol/L Normal [facility] Comment on above: Performed By: #### T 7, TSH, CMP, LIPID #### [facility] [address] [address] [address] Gonzalo Willis AST [Catalytic activity/Vol] 9 U/L Critically low 15-37 [facility] Comment on above: Performed By: #### T 7, TSH, CMP, LIPID #### [facility] [address] [place] [address] Dr. Gonzalo Willis Bilirubin [Mass/Vol] 0.6 mg/dL Normal 0.2-1.0 [facility] Comment on above: Performed By: #### T 7, TSH, CMP, LIPID #### [facility] [address] [place] [address] Dr. Gonzalo Willis Calcium [Mass/Vol] 10.1 mg/dL Normal 8.5-10.1 [facility] Comment on above: Performed By: #### T 7, TSH, CMP, LIPID #### [facility] [address] [place] [address] Dr. Gonzalo Willis Chloride [Moles/Vol] 98 mmol/L Normal 98-107 [facility] Comment on above: Performed By: #### T 7, TSH, CMP, LIPID #### [facility] [address] [place] [address] Dr. Gonzalo Willis CO2 [Moles/Vol] 28.4 mmol/L Normal 21.0-32.0 [facility] Comment on above: Performed By: #### T 7, TSH, CMP, LIPID #### [facility] [address] [place] [address] Dr. Gonzalo Willis Creatinine [Mass/Vol] 0.72 mg/dL Normal 0.55-1.02 [facility] Comment on above: Performed By: #### T 7, TSH, CMP, LIPID #### [facility] [address] [place] [address] Dr. Gonzalo Willis EGFR-AF SAMMARINESE >60 Normal >=60 [facility] Comment on above: Performed By: #### T 7, TSH, CMP, LIPID #### [facility] [address] [place] [address] Dr. Gonzalo Willis EGFR-NON AF SAMMARINESE >60 Normal >=60 [facility] Comment on above: Performed By: #### T 7, TSH, CMP, LIPID #### [facility] [address] [place], [place] [id number] Dr. Gonzalo Willis Globulin (S) [Mass/Vol] 4.1 g/dL Normal [facility] Comment on above: Performed By: #### T 7, TSH, CMP, LIPID #### [facility] [address] [place] [address] Dr. Gonzalo Willis Glucose [Mass/Vol] 164 mg/dL Critically high 74-106 [facility] Comment on above: Performed By: #### T 7, TSH, CMP, LIPID #### [facility] [address] [place] [address] Dr. Gonzalo Willis Potassium [Moles/Vol] 4.6 mmol/L Normal 3.5-5.1 [facility] Comment on above: Performed By: #### T 7, TSH, CMP, LIPID #### [facility] [address] [place] [address] Dr. Gonzalo Willis Protein [Mass/Vol] 8.4 g/dL Critically high 6.4-8.2 [facility] Comment on above: Performed By: #### T 7, TSH, CMP, LIPID #### [facility] [address] [place] [address] Dr. Gonzalo Willis Sodium [Moles/Vol] 133 mmol/L Critically low 136-145 [facility] Comment on above: Performed By: #### T 7, TSH, CMP, LIPID #### [facility] [address] [place] [address] Dr. Gonzalo Willis Urea nitrogen [Mass/Vol] 20.0 mg/dL Critically high 7.0-18.0 [facility] Comment on above: Performed By: #### T 7, TSH, CMP, LIPID #### [facility] [address] [place] [address] Dr. Gonzalo Willis Urea nitrogen/Creatinine [Mass ratio] 27.8 mg/mg Normal [facility] Comment on above: Performed By: #### T 7, TSH, CMP, LIPID #### [facility] [address] [place] [address] Dr. Gonzalo Willis TSHon 05-10-2022 TSH 0.872 uIU/mL Normal 0.358-3.74 0 [facility] Comment on above: Performed By: #### T 7, TSH, CMP, LIPID ####[facility] [id number] [place] [address]Dr. Gonzalo Willis VITAMIN B12on 05-10-2022 Cobalamin (Vitamin B12) [Mass/Vol] 526.0 pg/mL Normal 193.0-986. 0 [facility] Comment on above: Performed By: #### I MATTHEW MONTELONGO, VITB12 ####[facility] [id number] [place] [address]. [facility] Lazaro VITAMIN D 25 OHon 05-10-2022 VIT D 25-OH 67.4 ng/mL Normal [facility] Comment on above: Performed By: #### I REGINALD VITELENA, VITB12 ####[facility] [id number] [place] [address]Dr. [facility] VIT D RANGES SEE BELOW Normal [facility] Comment on above: Result Comment: <20 ng/mL Vit D deficient 20 - <30 ng/mL Vit D insufficient 30 - 100 ng/mL Vit D sufficient >100 ng/mL Potential Toxicity Performed By: #### I MATTHEW MONTELONGO, VITB12 ####[facility] [id number] [place] [address]Dr. Gonzalo Willis Covid-19 PCR (CVDTB)on SARS-CoV-2 (COVID-19) RNA WALKER+probe Ql (Unsp spec) Not detected Normal NOT DETECTED [facility] Comment on above: Result Comment: When diagnostic testing is negative, the possibility of a false negative should be considered in the context of a patient's recent exposures and the presence of clinical signs and symptoms consistent with SARS-CoV-2. This test is not yet approved or cleared by the [place] FDA. When there are no FDA-approved or cleared tests available, and other criteria are met, FDA can make tests available under an emergency access mechanism called an Emergency Use Authorization (EUA). The EUA for this test is supported by the [place] of Health and Human Service's declaration that circumstances exist to justify the emergency use of in vitro diagnostics for the detection and/or diagnosis of the virus that causes COVID-19. This EUA will remain in effect for the duration of the COVID-19 declaration justifying emergency of IVDs, unless it is terminated or revoked by the FDA (after which the test may no longer be used). Performed By: #### C TB #### [facility] [address] [place] [address] Dr. Gonzalo Willis Vital Signs Date Time Vital Sign Value Performing Clinician Facility 05-28-2023 13:50-0500 Body height 165.1 cm Shanice Warner MD Work Phone: [facility] 05-28-2023 13:50-0500 Body weight 78.93 kg Shanice Warner MD Work Phone: [facility] 05-28-2023 13:50-0500 Diastolic blood pressure 59 mm[Hg] Shanice Warner MD Work Phone: [facility] 05-28-2023 13:50-0500 Heart rate 82 /min Shanice Warner MD Work Phone: [facility] 05-28-2023 13:50-0500 Respiratory rate 16 /min Shanice Warner MD Work Phone: [facility] 05-28-2023 13:50-0500 SaO2% (BldA) [Mass fraction] 97 % Shanice Warner MD Work Phone: [facility] 05-28-2023 13:50-0500 Systolic blood pressure 109 mm[Hg] Shanice Warner MD Work Phone: [facility] 04-03-2023 09:16-0400 Diastolic blood pressure 116 mm[Hg] Shanice Warner MD Work Phone: [facility] 04-03-2023 09:16-0400 Heart rate 101 /min Shanice Warner MD Work Phone: [facility] 04-03-2023 09:16-0400 Systolic blood pressure 200 mm[Hg] Shanice Warner MD Work Phone: [facility] 03-26-2023 17:15-0400 Diastolic blood pressure 64 mm[Hg] MD Nano Muhammad Work Phone: [facility] 03-26-2023 17:15-0400 Heart rate 69 /min MD Nano Muhammad Work Phone: [facility] 03-26-2023 17:15-0400 Respiratory rate 20 /min MD Nano Muhammad Work Phone: [facility] 03-26-2023 17:15-0400 SaO2% (BldA) [Mass fraction] 99 % MD Nano Muhammad Work Phone: [facility] 03-26-2023 17:15-0400 Systolic blood pressure 143 mm[Hg] MD Nano Muhammad Work Phone: [facility] 03-26-2023 13:02-0400 Body height 165.1 cm MD Nano Muhammad Work Phone: [facility] 03-26-2023 13:02-0400 Body temperature 97.7 [degF] MD Nano Muhammad Work Phone: [facility] 03-26-2023 13:02-0400 Body weight 84.5 kg MD Nano Muhammad Work Phone: [facility] 03-20-2023 13:00-0400 Body height 165.1 cm Patrizia Melendrez Other [employer] Other 03-20-2023 13:00-0400 Body mass index (BMI) [Ratio] 31.31 kg/m2 Patrizia Melendrez Other [employer] Other 03-20-2023 13:00-0400 Body weight 85.37 kg Patrizia Melendrez Other [employer] Other 03-20-2023 13:00-0400 Diastolic blood pressure 82 mm[Hg] Patrizia Melendrez Other [facility] [employer] Other 03-20-2023 13:00-0400 SaO2% (BldA) [Mass fraction] 94 % Patrizia Melendrez Other [facility] [employer] Other 03-20-2023 13:00-0400 Systolic blood pressure 124 mm[Hg] Patrizia Melendrez Other [facility] [employer] Other 07-19-2022 13:16-0500 Body height 165.1 cm Nano M Hoy Work Phone: [facility] [employer] [address] DO Work Phone: 07-19-2022 13:16-0500 Body mass index (BMI) [Ratio] 31.95 kg/m2 Nano M Hoy Work Phone: [facility] 250 DO Work Phone: 07-19-2022 13:16-0500 Body surface area Derived from formula 1.94 m2 Nano M Hoy Work Phone: [facility] 250 DO Work Phone: 07-19-2022 13:16-0500 Body weight 87.09 kg Nano M Hoy Work Phone: [facility] 250 DO Work Phone: 07-19-2022 13:16-0500 Diastolic blood pressure 64 mm[Hg] Nano M Hoy Work Phone: [facility] 250 DO Work Phone: 07-19-2022 13:16-0500 Diastolic blood pressure 70 mm[Hg] Nano M Hoy Work Phone: [facility] 250 DO Work Phone: 07-19-2022 13:16-0500 Heart rate 85 /min Nano Muhammad Work Phone: [facility] 250 DO Work Phone: 07-19-2022 13:16-0500 Systolic blood pressure 110 mm[Hg] Nano Muhammad Work Phone: [facility] 250 DO Work Phone: 07-19-2022 13:16-0500 Systolic blood pressure 100 mm[Hg] Nano Ruiz Hoy Work Phone: [facility] 250 DO Work Phone: Encounters Encounter Date Encounter Type Care Provider Facility Start: 06-14-2023 End: 06-14-2023 ambulatory WILLEM MONTILLA Facility:[facility] Start: 05-30-2023 Telephone encounter Willem marrufo MD Work Phone: Cardiothoracic Comment on above: Insurance Authorizat ion Referral Information ; New Patient Evaluation Start: 05-28-2023 End: 05-29-2023 ambulatory SHANICE WARNER Facility:[facility] Start: 05-28-2023 End: 05-28-2023 Patient encounter procedure Shanice Warner MD Work Phone: Cardiology Comment on above: SOB (shortness of br eath) (Primary Dx); Coronary artery disease involving havasupai coronary artery of havasupai heart without angina pectoris; PAD (peripheral artery disease) ([facility]) Start: 05-28-2023 End: 05-28-2023 ambulatory SHANICE WARNER Facility:[facility] Start: 05-13-2023 End: 05-13-2023 ambulatory SHANICE WARNER Facility:[facility] Start: 05-13-2023 End: 05-13-2023 ambulatory Shanice Warner MD Work Phone: Cardiology Comment on above: Coronary artery dise ase involving havasupai coronary artery of havasupai heart without angina pectoris (Primary Dx); Preop cardiovascular exam; Morbid obesity (HCC) Start: 05-13-2023 End: 05-13-2023 Patient encounter status Shanice Warner MD Work Phone: [facility] Work Phone: Start: 05-13-2023 End: 05-13-2023 Telemedicine consultation with patient Shanice Warner MD Work Phone: [facility] Start: 04-26-2023 Orders Only Shanice Hinton i, MD Work Phone: Cardiology Comment on above: Coronary artery dise ase involving havasupai coronary artery without angina pectoris, unspecified whether havasupai or transplanted heart (Primary Dx) Start: 04-08-2023 Orders Only Pamela Laws [employer]UNIT NURSE Work Phone: Cardiology Comment on above: Abnormal stress test (Primary Dx) Start: 04-03-2023 End: 04-04-2023 ambulatory [facility] Facility:[facility] Start: 04-03-2023 End: 04-03-2023 ambulatory [facility] Facility:[facility] Start: 04-03-2023 End: 04-03-2023 Patient encounter procedure Shanice Warner MD Work Phone: Cardiology Comment on above: Abnormal stress test (Primary Dx) Start: 03-26-2023 End: 03-26-2023 ambulatory Patrizia Melendrez Facility:[facility] Start: 03-26-2023 Telephone encounter Patrizia HOFF G Cardiology Start: 03-26-2023 End: 03-26-2023 Admission to same day surgery center MD Nano Muhammad Work Phone: [facility] Work Phone: Start: 03-26-2023 End: 03-26-2023 ambulatory MD Nano Muhammad Work Phone: [facility] Work Phone: Start: 03-25-2023 End: 03-25-2023 ambulatory Patrizia Melendrez Other [employer] Other Start: 03-25-2023 Telephone encounter Patrizia Pagege FP G Cardiology Start: 03-20-2023 End: 03-20-2023 ambulatory Patrizia Melendrez Facility:[facility] Start: 03-20-2023 End: 03-20-2023 Patient encounter procedure MD Nano Muhammad Work Phone: [facility] Work Phone: Start: 03-20-2023 End: 03-20-2023 ambulatory MD Nano Muhammad Work Phone: [facility] Work Phone: Start: 03-20-2023 Office outpatient ne w 45 minutes Patrizia ESPINO Cardiology Start: 03-13-2023 Message Nano Muhammad Work Phone: [facility] 250 DO Work Phone: Start: 11-28-2022 Message Nano Muhammad Work Phone: [facility] 600 DO Work Phone: Start: 10-01-2022 End: 10-02-[address] NANO MUHAMMAD . Facility:[facility] Start: 09-04-2022 End: 09-05-[address] NANO MUHAMMAD . Facility:[facility] Start: 08-22-2022 End: 08-23-[address] STEPAN SAM Facility:[facility] Start: 07-19-2022 Office consultation new/estab patient 60 min Nano Muhammad Work Phone: [facility] 250 DO Work Phone: Start: 07-19-2022 ambulatory Nano Muhammad Facility: Start: 07-02-2022 End: 07-03-[address] NANO MUHAMMAD . Facility:[facility] Start: 05-30-2022 End: 05-31-[address] NANO MUHAMMAD . Facility:[facility] Start: 05-29-2022 Encounter for genera l adult medical examination without abnormal findings MARYJANE IRBY [facility] Start: 05-28-2022 End: 05-29-[address] NANO MUHAMMAD . Facility:[facility] Start: 05-25-2022 End: 05-26-[address] NANO MUHAMMAD . Facility:[facility] Start: 05-24-2022 End: 05-25-2022 ambulatory MARYJANE IRBY Facility:[facility] Start: 05-22-2022 End: 05-23-[address] NANO MUHAMMAD . Facility:[facility] Start: 05-11-2022 End: 05-12-[address] NANO MUHAMMAD . Facility:[facility] Start: 05-10-2022 End: 05-11-[address] NISA HOLLOWAY Facility:[facility] Start: 05-10-2022 End: 05-11-2022 Encounter for general adult medical examination without abnormal findings DR NISA HOLLOWAY Facility:[facility] Start: 05-10-2022 End: 05-11-[address] NANO MUHAMMAD . Facility:[facility] Start: 01-29-2022 End: 01-29-2022 ambulatory JOE HUBBARD Facility:[facility] Admission to [facility] Nano Muhammad Work Phone: [facility] 250 DO Work Phone: Procedures Date Procedure Procedure Detail Performing Clinician Start: 05-28-2023 Lipid 1996 panel - S radha or Plasma Shanice Warner MD Work Phone: Start: 03-26-2023 CL LHC & COR Angio (Right) MD Nano Muhammad Work Phone: Colonoscopy Nano Muhammad Work Phone: Decompression of med jayjay nerve Nano Muhammad Work Phone: Ligation of fallopian tube D ouglas Sara Muhammad Work Phone: Release of trigger finger Do david Muhammad Work Phone: Tonsillectomy and adenoidectomy Nano Muhammad Work Phone: Plan of Treatment Date Care Activity Detail Author Start: 05-28-2028 Lipid 1996 panel - S radha or Plasma Lipid Screening [facility] Start: 05-28-2026 Diabetes Screening Diabetes Screenin g [facility] Start: 04-03-2026 Diabetes Screening Diabetes Screenin g [facility] Start: 05-28-2024 Hepatitis B surface antibody level LDL Cholesterol [facility] Start: 03-26-2023 End: 03-26-2023 [facility] Start: 02-22-2023 Covid-19 Vaccine ( season) Covid-19 Vaccine ( season) [facility] Start: 02-22-2023 Influenza vaccination Influenza Vacc ine (#1) [facility] Start: 2023 Advance Directive Discussion Advance Directive Discussion [facility] Start: 2023 Bone Density Screening Bone Density Screening [facility] Start: 06-24-2022 Depression Assessment Depression Ass essment [facility] Start: 2018 RSV Vaccine (1 - 1-d ose 60+ series) RSV Vaccine (1 - 1-dose 60+ series) [facility] Start: 01-24-2008 Influenza vaccination Lung Cancer [facility] Start: 01-24-2008 Shingrix Vaccine (1 of 2) Hernandez grix Vaccine (1 of 2) [facility] Start: 2003 Cologuard (FIT-DNA) Cologuard (FIT-D NA) [facility] Start: 2003 Colonoscopy Colonoscopy [facility] Start: 2003 Colorectal Cancer Screening Colorectal Cancer Screening [facility] Start: [address] COLONOGRAPHY [facility] Start: 2003 Fecal Occult Blood Fecal Occult Bloo d [facility] Start: 2003 Lipid 1996 panel - S radha or Plasma Lipid Screening [facility] Start: 2003 SIGMOIDOSCOPY SIGMOIDOSCOPY [facility] Start: 1998 Mammography Mammogram Screening [facility] Start: 1977 Urine microalbumin profile DTa P,Tdap,Td Vaccine (1 - Tdap) [facility] Start: 01-24-1976 Annual PCP Team Computer Game T[employer] carl Disease Visit Annual PCP Team Chronic Disease Visit [facility] Start: 01-24-1976 Hepatitis C Screening Hepatitis C [facility] Start: 01-24-1976 HIV Screening HIV Screening [facility] Start: 01-24-1964 Pneumococcal Vaccine : 65+ (1 - PCV) Pneumococcal Vaccine: 65+ (1 - PCV) [facility] End: 07-02-2024 Ct thorax w/o contrast material CT CHEST CARDIAC WO IVCON Radiology Routine 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 (HCC) PAD (peripheral artery disease) (HCC) S/P insertion of iliac artery stent Current smoker Primary hypertension Coronary angioplasty status 1 Occurrences starting 06/03/2023 until 07/02/2024 [facility] Work Phone: Comment on above: 1 Occurrences starti ng 06/03/2023 until 07/02/2024 End: 04-08-2024 ECG COMPLETE ECG COMPLETE ECG Routine Abnormal stress test 1 Occurrences starting 04/08/2023 until 04/08/2024 [facility] Work Phone: Comment on above: 1 Occurrences starti ng 04/08/2023 until 04/08/2024 End: 04-03-2024 Echocardiography ECHO Cardiology Routine Abnormal stress test 1 Occurrences starting 04/03/2023 until 04/03/2024 [facility] Work Phone: Comment on above: 1 Occurrences starti ng 04/03/2023 until 04/03/2024 End: 07-02-2024 LUNG DIFFUSION CAPACITY (DLCO) LUNG DIFFUSION CAPACITY (DLCO) PFT Routine 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 (HCC) PAD (peripheral artery disease) ([facility]) S/P insertion of iliac artery stent Current smoker Primary hypertension Coronary angioplasty status 1 Occurrences starting 06/03/2023 until 07/02/2024 [facility] Work Phone: Comment on above: 1 Occurrences starti ng 06/03/2023 until 07/02/2024 End: 07-02-2024 SPIROMETRY BASELINE ONLY SPIROMETRY BASELINE ONLY PFT Routine 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 (HCC) PAD (peripheral artery disease) (HCC) S/P insertion of iliac artery stent Current smoker Primary hypertension Coronary angioplasty status 1 Occurrences starting 06/03/2023 until 07/02/2024 [facility] Work Phone: Comment on above: 1 Occurrences starti ng 06/03/2023 until 07/02/2024 End: 06-03-2024 US CAROTID ARTERIES [facility] US CAROTID ARTERIES [facility] Vascular Lab Routine 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 (HCC) PAD (peripheral artery disease) (HCC) S/P insertion of iliac artery stent Current smoker Primary hypertension Coronary angioplasty status 1 Occurrences starting 06/03/2023 until 06/03/2024 [facility] Work Phone: Comment on above: 1 Occurrences starti ng 06/03/2023 until 06/03/2024 End: 06-03-2024 US LEG VEIN MAP [facility] US LEG VEIN MAP [facility] Vascular Lab Routine 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 (HCC) PAD (peripheral artery disease) (HCC) S/P insertion of iliac artery stent Current smoker Primary hypertension Coronary angioplasty status 1 Occurrences starting 06/03/2023 until 06/03/2024 [facility] Work Phone: Comment on above: 1 Occurrences starti ng 06/03/2023 until 06/03/2024 End: 06-03-2024 US MAMMARY ARTERY [facility] US MAMMARY ARTERY [facility] Vascular Lab Routine 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 (HCC) PAD (peripheral artery disease) ([facility]) S/P insertion of iliac artery stent Current smoker Primary hypertension Coronary angioplasty status 1 Occurrences starting 06/03/2023 until 06/03/2024 [facility] Work Phone: Comment on above: 1 Occurrences starti ng 06/03/2023 until 06/03/2024 End: 06-03-2024 US RADIAL ARTERY MAP [facility] US RADIAL ARTERY MAP [facility] Vascular Lab Routine 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 (HCC) PAD (peripheral artery disease) (HCC) S/P insertion of iliac artery stent Current smoker Primary hypertension Coronary angioplasty status 1 Occurrences starting 06/03/2023 until 06/03/2024 [facility] Work Phone: Comment on above: 1 Occurrences starti ng 06/03/2023 until 06/03/2024 [facility] Immunizations Immunization Date Immunization Notes Care Provider Fa cility 04-10-2022 influenza, injectabl e, quadrivalent, contains preservative Nano M Honelda Work Phone: [facility] [employer] 250 DO Work Phone: 04-10-2022 influenza virus vacc ine, unspecified formulation Shaince Warner MD Work Phone: [facility] 05-24-2021 Mariana COVID-19 Vac cine 0.5 ML Intramuscular Suspension Nano M Hoy Work Phone: [facility] 11-11-2020 Mariana COVID-19 Vac cine 0.5 ML Intramuscular Suspension Nano Ruiz Honelda Work Phone: [facility] 08-13-2020 zoster vaccine recombinant Nano M Honelda Work Phone: [facility] [employer] 250 DO Work Phone: 06-11-2020 zoster vaccine recombinant Nano M Wendy [facility] Work Phone: Payers Date Payer Category Payer Medicaid MEDICAID [facility] MEDICAID [id number] 2023-Present [phone] [address] [place] [address] Medicaid [id number] 2023 Private Health Insurance [id number] 2023 Self-pay [address] [facility] MEDICARE [facility] DUAL COMPLETE HMO POS SNP [id number] 2023-Present [phone] [address] [place] [address] Medicare [id number] 2023 Unknown [id number] 1959 Private Health Insurance [id number] 1959 Unknown [id number] 1958 Unknown [id number] [id number]. 356 1958 Unknown [id number] 2.16.840.1.401137.3.579.2. 593 1958 Unknown [id number] 2.16.840.1.337206.3.579.2. 593 1958 Unknown [id number] 2.16.840.1.901759.3.579.2. 593 1958 Unknown [id number] 2.16.840.1.709835.3.579.2. 593 1958 Unknown [id number] 2.840.1.241621.3.579.2. 593 1958 Unknown [id number] 2.840.1.855304.3.579.2. 593 1958 Unknown [id number] 2.840.1.431195.3.579.2. 593 1958 Unknown [id number] 2.840.1.725533.3.579.2. 593 1958 Unknown [id number] 2.840.1.977847.3.579.2. 593 1958 Unknown [id number] 2.840.1.856996.3.579.2. 593 1958 Unknown [id number] 2.16840.1.585953.3.579.2. 593 1958 Unknown [id number] 2.840.1.403177.3.579.2. 593 1958 Unknown [id number] 2.16840.1.651637.3.579.2. 593 Unknown [facility] [employer] Unknown [id number] [id number]. 531 Unknown [id number] 2.840.1.570823.3.579.2. 531 Social History Date Type Detail Facility Start: 04-03-2023 End: 05-28-2023 Social alcohol use Social alcohol use -[facility] 250 DO Work Phone: Comment on above: gummies, and pot; Start: 03-20-2023 End: 03-26-2023 Tobacco smoking status NHIS Smoker (finding) [facility] Start: 1960 Sex Assigned At Female F [facility] Start: 04-03-2023 End: 05-28-[address] [facility] [employer] Other Start: 04-03-2023 Tobacco smoking status CTIS Smokes tobacco daily [facility] History of tobacco use Cigarette Smoker [facility] Start: 04-03-2023 Tobacco use and exposure Smokeless tobacco non-user [facility] Start: 04-03-2023 End: 05-28-2023 Alcohol intake Current drinker of alcohol (finding) [facility] National Score (1-100), lower number is lower risk 91 [facility] Start: 1960 Sex Assigned At Not on file [facility] Goals Date Patient Goal Desired Activity /State Clinical Notes 05-10-2022 to 06-14-2023 Telephone Encounter - Robbin Sanford - 06/03/2023 4:34 PM ESTTelephone Encounter - Ghazala Malave RN - 05/30/2023 10:08 AM ESTTelephone Encounter - Marla Brady - 05/30/2023 10:38 AM EST Note Date & Type Note Facility 06-14-2023 Note HNO ID: [id number] Author: Willem Montilla MD Service: ? Author Type: Physician Type: Progress Notes Filed: 06/14/2023 5:24 PM Note Text: Heart, Vascular and Thoracic Section DEPARTMENT OF CARDIAC SURGERY OUTPATIENT VISIT DATE June 14, 2023 OUTPATIENT VISIT SERVICE DATE: 06/14/2023 SERVICE TIME: 5:20 PM PCP: Nano Muhammad [address] [place] [phone] Referring Physician: Willem Montilla [address] [place] [address] Patient Type: New Visit to Determine Surgery: Yes HPI: Ms. Elizabeth Quezada is a 63 year old female seen regarding candidacy for cardiac surgery. She has severe PVD a with rest claudications and foot ulcers. nShewas incidentally found to have CAD. Her BITAs are large, up to 5cm and may be important collaterals to the legs. She is an active smoker unfortunately sp iliac stentings, HTN, and diabetes, and COPD. Last CT Result Conclusion CT CHEST CARDIAC WO IVCON Exam End: 06/14/2023 7:43 AM (Final result) Impression: IMPRESSION: Normal caliber thoracic aorta with scattered mild calcified wall changes, including sinotubular junction and proximal ascending. Coronary artery calcific changes Tobacco exposure related changes of lungs and airways. Part solid opacity in RIGHT lung abutting major fissure, could be postinflammatory however remains indeterminate. Additional centrilobular nodules in the apices, most likely bronchiolitis. Consider follow-up Chest CT in 3-6 months and/or consultation with nodule clinic. ACTIONABLE RESULT: FOLLOW-UP Acuity: Actionable Findings: Thoracic-Lung nodules Routing code: [email or web address] Recommendation: Unlisted Recommendation (see report) Time Frame: 3-6 months COMMUNICATION: Results will be communicated with the ordering provider via goviral staff message or phone message by [facility] within 2 business days of report finalization. --END OF FINDING-- Fermenter Wine: CHRISTOPHER Transcribe Date/Time: Jun 14 2023 9:34A Dictated by : TIARA HARTLEY MD This examination was interpreted and the report reviewed and electronically signed by: TIARA HARTLEY MD on Jun 14 2023 1:35PM EST Last ECHO Result Conclusion ECHO Collected: 05/28/2023 11:24 AM (Final result) Impression: CONCLUSIONS: - Exam indication: CAD - The left ventricle is normal in size. Left ventricular systolic function is normal. EF = 61 ? 5% (2D biplane) Grade I left ventricular diastolic dysfunction. - The right ventricle is normal in size. Right ventricular systolic function is normal. - The patient has not had a prior CC echocardiographic exam for comparison. * * * Final * * * Impression: Incidental CAD in the contexty of enlarged CHUCKY and critical limb ischemia. Plan: Discussed with patient and vascular surgery. Recommended CTA C/A/P and cessation of smoking and reevaluate after that. These findings will be communicated back to the requesting physician via electronic medical record Willem Montilla MD [facility] 06-14-2023 Note HNO ID: [id number] Author: Julio Smalls RRT Service: ? Author Type: Registered Resp Therapist Type: Progress Notes Filed: 06/14/2023 12:24 PM Note Text: PULM FUNCTION SMARTBLOCK: Provider: Willem Montilla MD Spirometry: 1 DLCO: 1 [facility] 06-14-2023 Note HNO ID: [id number] Author: Aureliano Jack RT(R) Service: Radiology Author Type: Technologist Type: Progress Notes Filed: 06/14/2023 7:41 AM Note Text: Radiology Service Progress Note PATIENT NAME: Elizabeth Quezada DATE OF SERVICE: June 14, 2023 TIME: 7:41 AM PATIENT IDENTITY VERIFICATION COMPLETED USING TWO (2) IDENTIFIERS: Name and Date of confirmed by patient verbally and Name and Date of confirmed by identification band. FALL SCREENING: Has the patient had 2 falls in the last year or 1 fall with injury or currently using an Ambulatory Assistive Device (Walker, Cane, Wheelchair, Crutches, etc.)? No PATIENT GENDER DATA: Female. status: : No status: NO. PATIENT RELEVANT IMPLANT DATA REVIEWED: Yes RADIOLOGY DEPARTMENT: CT; Exam(s) Completed: Cardiac PERIPHERAL IV DATA: Not applicable SIGNED BY: Aureliano Jack RT(R) June 14, 2023 7:41 AM [facility] 06-03-2023 Miscellaneous Notes CALLED AND CONFIRMED APPTS W/MRS. 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 Montilla *Please call with date internal referral diagnosis: CAD history: PAD s/p iliac stents November 2022, current smoker, DM2, HTN blood thinners: asa 81, plavix, xarelto, trulicity, jardiance, ibuprofen documented in this encounter [facility] 05-30-2023 Miscellaneous Notes IN documented in this encounter [facility] 05-28-2023 Note HNO ID: [id number] Author: Shanice Warner MD Service: ? Author Type: Physician Type: Progress Notes Filed: 05/29/2023 2:38 PM Note Text: Heart, Vascular and Thoracic Section Arlette Goldstein Department of Cardiovascular Medicine SECTION OF CLINICAL CARDIOLOGY OUTPATIENT VISIT DATE May 28, 2023 OUTPATIENT VISIT TYPE ESTABLISHED PRIMARY CARE PHYSICIAN: To use this Smartlink, specify the provider ID whose address you want to display, e.g., .OnQueue TechnologiesADDR[1 (where 1 is the provider ID). REFERRING PHYSICIAN: Shanice Warner [address] [facility] [address] CHIEF COMPLAINT: Shortness of breath HISTORY OF PRESENT ILLNESS: Ms. Quezada is a 63 year old female who presents today for a cardiovascular medicine follow-up visit . I last saw her in Mar . She was having severe nausea and vomiting at the time. She was worked up by her radiology ct technologist and no cause was found. She is now interested in proceeding to CABG. She was being worked up for a vascular procedure (aorto bifem) -she has a history of severe PAD with kissing iliac stents on the right and s/p hematoma in left groin (?perforation during procedure). She underwent a stress test which was nondiagnostic but cath showed severe LAD disease subtotaled circ and occluded distal PDA (fills from collaterals) She denies chest pain. She is sob at 300 feet and she has severe claudication PAST CARDIAC HISTORY: None PAST MEDICAL HISTORY Diagnosis Date Coronary atherosclerosis Former smoker Hematoma Lung nodules PAD (peripheral artery disease) (HCC) PAST SURGICAL HISTORY Procedure Laterality Date SHX VASCULAR SURGERY 11/28/2022 bilateral kissing iliac stents SOCIAL HISTORY Social History Tobacco Use Smoking status: Every Day Packs/day: 1.00 Years: 40.00 Additional pack years: 0.00 Total pack years: 40.00 Types: Cigarettes Smokeless tobacco: Never Vaping Use Vaping Use: Never used Substance Use Topics Alcohol use: Yes Alcohol/week: 4.0 standard drinks of alcohol Types: 4 Standard drinks or equivalent per week Drug use: Yes Types: Marijuana FAMILY HISTORY Problem Relation Age of Onset Heart Attack Mother Hypertension Mother Hyperlipidemia Mother Kidney Disease Mother Heart Attack Father Hyperlipidemia Father Diabetes Father Patient-Entered Questionnaire Scores Patient Entered Questionnaires 05/13/2023 Average hours of sleep per day 7 Diagnosed with Sleep Apnea No Sleep Apnea Probability Score 05/13/2023 Sleep Apnea Screen V2 9 (Sleep study not recommended) Insomnia Severity Index (SEAN) 05/13/2023 Score Incomplete PROMIS Global Health - (T-Scores - the mean of general population = 50. Five points is a clinically meaningful difference.) 05/13/2023 Physical T-Score 37.4 Mental T-Score 53.3 Sleep Duration Level: N/A ALLERGIES: ALLERGIES Allergen Reactions Tetracycline Unknown, GI Upset Januvia [Sitaglipti* Unknown Rosuvastatin Unknown Allerg Xt,D.Farinae* Itching Cat Hair Standardiz* Itching sneezing House Dust Itching MEDICATIONS: aspirin 81 mg chewable tablet Take 81 mg by mouth once daily. VENTOLIN HFA 90 mcg/actuation inhaler Inhale 2 Puffs as instructed four times daily. calcium carbonate 500 mg calcium (1,250 mg) chewable tablet Take 500 mg by mouth once daily. carvedilol (COREG) 25 mg tablet Take 25 mg by mouth two times a day. clopidogrel (PLAVIX) 75 mg tablet Take 1 tablet by mouth once daily. TRULICITY 0.75 mg/0.5 mL pen injector Inject 0.5 mL subcutaneously one time a week. JARDIANCE 10 mg tablet Take 1 tablet by mouth once daily. ezetimibe (ZETIA) 10 mg tablet Take 1 tablet by mouth once daily. IBU 800 mg tablet Take 800 mg by mouth four times a day as needed. lisinopril (ZESTRIL) 20 mg tablet Take 1 tablet by mouth once daily. metFORMIN (GLUCOPHAGE) 1,000 mg tablet Take 1,000 mg by mouth two times a day. varenicline (CHANTIX) 1 mg tablet Take 1 tablet by mouth every 12 hours. venlafaxine ER (EFFEXOR XR) 75 mg 24 hr capsule Take 1 capsule by mouth once daily. XARELTO 2.5 mg tablet Take 2.5 mg by mouth two times a day. REVIEW OF SYSTEMS: GENERAL: Negative for: Weight loss or gain, Fever or Chills, Weakness and Sleep difficulties. HEENT: Negative for: Headache, Impaired Vision, Glasses, Hearing Impairment, Ringing in Ears, Nosebleeds, Poor dental care, Bleeding Gums, Dentures NECK: Negative for: Swelling, Pain, Stiffness RESPIRATORY: Negative for: Cough, Blood in Sputum, Shortness of breath, Wheezing, Apnea GASTROINTESTINAL: Negative for: Trouble swallowing, Heartburn, Change in bowel habits, Blood in stool, Dark black stools MUSCULOSKELETAL: Negative for: Muscle or joint pain, Stiffness , Joint swelling NEUROLOGIC/PSYCHIATRIC: Negative for: Weakness, Paralysis, Numbness, Tingling, Tremor, Nervousness, Depressed mood, Memory loss SKIN: Negative for: Rashes, Itching HEMATOLOGICAL/LYMPHATIC: Negative f (more content not included)... [facility] 05-28-2023 History of Presen t illness Narrative Images from the original note were not included. Heart, Vascular and Thoracic Section Arlette Goldstein Department of Cardiovascular Medicine SECTION OF CLINICAL CARDIOLOGY OUTPATIENT VISIT DATE May 28, 2023 OUTPATIENT VISIT TYPE ESTABLISHED PRIMARY CARE PHYSICIAN: To use this Smartlink, specify the provider ID whose address you want to display, e.g., .PROVADDR[1 (where 1 is the provider ID). REFERRING PHYSICIAN: Shanice Warner [address] [place] [address] CHIEF COMPLAINT: Shortness of breath HISTORY OF PRESENT ILLNESS: Ms. Quezada is a 63 year old female who presents today for a cardiovascular medicine follow-up visit . I last saw her in Mar . She was having severe nausea and vomiting at the time. She was worked up by her radiology ct technologist and no cause was found. She is now interested in proceeding to CABG. She was being worked up for a vascular procedure (aorto bifem) -she has a history of severe PAD with kissing iliac stents on the right and s/p hematoma in left groin (?perforation during procedure). She underwent a stress test which was nondiagnostic but cath showed severe LAD disease subtotaled circ and occluded distal PDA (fills from collaterals) She denies chest pain. She is sob at 300 feet and she has severe claudication PAST CARDIAC HISTORY: None PAST MEDICAL HISTORY Diagnosis Date Coronary atherosclerosis Former smoker Hematoma Lung nodules PAD (peripheral artery disease) (HCC) PAST SURGICAL HISTORY Procedure Laterality Date SHX VASCULAR SURGERY 11/28/2022 bilateral kissing iliac stents SOCIAL HISTORY Social History Tobacco Use Smoking status: Every Day Packs/day: 1.00 Years: 40.00 Additional pack years: 0.00 Total pack years: 40.00 Types: Cigarettes Smokeless tobacco: Never Vaping Use Vaping Use: Never used Substance Use Topics Alcohol use: Yes Alcohol/week: 4.0 standard drinks of alcohol Types: 4 Standard drinks or equivalent per week Drug use: Yes Types: Marijuana FAMILY HISTORY Problem Relation Age of Onset Heart Attack Mother Hypertension Mother Hyperlipidemia Mother Kidney Disease Mother Heart Attack Father Hyperlipidemia Father Diabetes Father Patient-Entered Questionnaire Scores Patient Entered Questionnaires 05/13/2023 Average hours of sleep per day 7 Diagnosed with Sleep Apnea No Sleep Apnea Probability Score 05/13/2023 Sleep Apnea Screen V2 9 (Sleep study not recommended) Insomnia Severity Index (SEAN) 05/13/2023 Score Incomplete PROMIS Global Health - (T-Scores - the mean of general population = 50. Five points is a clinically meaningful difference.) 05/13/2023 Physical T-Score 37.4 Mental T-Score 53.3 Sleep Duration Level: N/A ALLERGIES: ALLERGIES Allergen Reactions Tetracycline Unknown, GI Upset Januvia [Sitaglipti* Unknown Rosuvastatin Unknown Allerg Xt,D.Farinae* Itching Cat Hair Standardiz* Itching sneezing House Dust Itching MEDICATIONS: aspirin 81 mg chewable tablet Take 81 mg by mouth once daily. VENTOLIN HFA 90 mcg/actuation inhaler Inhale 2 Puffs as instructed four times daily. calcium carbonate 500 mg calcium (1,250 mg) chewable tablet Take 500 mg by mouth once daily. carvedilol (COREG) 25 mg tablet Take 25 mg by mouth two times a day. clopidogrel (PLAVIX) 75 mg tablet Take 1 tablet by mouth once daily. TRULICITY 0.75 mg/0.5 mL pen injector Inject 0.5 mL subcutaneously one time a week. JARDIANCE 10 mg tablet Take 1 tablet by mouth once daily. ezetimibe (ZETIA) 10 mg tablet Take 1 tablet by mouth once daily. IBU 800 mg tablet Take 800 mg by mouth four times a day as needed. lisinopril (ZESTRIL) 20 mg tablet Take 1 tablet by mouth once daily. metFORMIN (GLUCOPHAGE) 1,000 mg tablet Take 1,000 mg by mouth two times a day. varenicline (CHANTIX) 1 mg tablet Take 1 tablet by mouth every 12 hours. venlafaxine ER (EFFEXOR XR) 75 mg 24 hr capsule Take 1 capsule by mouth once daily. XARELTO 2.5 mg tablet Take 2.5 mg by mouth two times a day. REVIEW OF SYSTEMS: GENERAL: Negative for: Weight loss or gain, Fever or Chills, Weakness and Sleep difficulties. HEENT: Negative for: Headache, Impaired Vision, Glasses, Hearing Impairment, Ringing in Ears, Nosebleeds, Poor dental care, Bleeding Gums, Dentures NECK: Negative for: Swelling, Pain, Stiffness RESPIRATORY: Negative for: Cough, Blood in Sputum, Shortness of breath, Wheezing, Apnea GASTROINTESTINAL: Negative for: Trouble swallowing, Heartburn, Change in bowel habits, Blood in stool, Dark black stools MUSCULOSKELETAL: Negative for: Muscle or joint pain, Stiffness , Joint swelling NEUROLOGIC/PSYCHIATRIC: Negative for: Weakness, Paralysis, Numbness, Tingling, Tremor, Nervousness, Depressed mood, Memory loss SKIN: Negative for: Rashes, Itching HEMATOLOGICAL/LYMPHATIC: Negative for: Easy bruising , Easy bleeding ENDOCRINE: Negative for: Heat or cold intolerance, Excessive sweating, Frequent urination, Frequent thirst PHYSICAL EXAMINATION:BP 109/59 (BP Site: Left Arm, BP Position: Sitting, BP Cuff Size: Regular Adult) Pulse 82 Resp 16 Ht 165.1 cm (5' 5 ) Wt 78.9 kg (174 lb) SpO2 97% BMI 28.96 kg/m General: Well appearing, in no acute distress. Skin: No clubbing, no cyanosis. Eyes: Extra ocular movements intact Oropharynx: Teeth in good repair. Neck: No jugular venous distention, no carotid bruits, carotids have a normal upstroke, no palpable thyromegaly. Lungs: Clear to auscultation bilaterally, no wheezing or rhonchi. Heart: Regular rhythm, PMI not displaced, S1, S2 normal, no S3, no S4, no heaves, no rub and no murmur. Abdomen: Soft, nontender, bowel sounds normal, no palpable organomegaly, no bruits. Extremities: No peripheral edema . Grade 1/4 distal pulses bilaterally. -healing ulcer left foot Neuro: Oriented to person, place and time, alert, cooperative, gait coordinated. CARDIOVASCULAR MEDICINE TESTING: Echocardiogram Exam indication: CAD - The left ventricle is normal in size. Left ventricular systolic function is normal. EF = 61 5% (2D biplane) Grade I left ventricular diastolic dysfunction. - The right ventricle is normal in size. Right ventricular systolic function is normal. - The patient has not had a prior CC echocardiographic exam for comparison. Last EKG Result Conclusion ECG COMPLETE Collected: 04/03/2023 8:04 AM (Final result) Impression: NORMAL SINUS RHYTHM POSSIBLE LEFT ATRIAL ENLARGEMENT BORDERLINE ECG Confirmed by MD DOLORES, PhD, DAYO ([id number]) on 04/16/2023 6:22:03 AM I have personally reviewed the Echocardiogram. IMPRESSION: Ms. Quezada is a 63 year old female with severe PAD,multivessel CAD . She is still smoking and she has Type 2 DM PLAN AND RECOMMENDATIONS: CABG-need to make sure she has adequate conduit. Shanice Warner MD CONTACT INFORMATION: documented in this encounter [facility] 05-13-2023 Note HNO ID: [id number] Author: Shanice Warner MD Service: ? Author Type: Physician Type: Progress Notes Filed: 05/13/2023 3:23 PM Note Text: Heart, Vascular AND Thoracic Section Department of Cardiovascular Medicine VIRTUAL VIDEO VISIT ESTABLISHED OUTPATIENT VISIT SERVICE DATE: 05/13/2023 Patient: Elizabeth Quezada SERVICE TIME: 3:10 PM : 1960 This is a virtual video visit. It required patient-provider interaction for the medical decision making as documented below. Elizabeth Quezada has consented to this video encounter. I have communicated my name and active licensure. The patient's identity and physical location were verified at the time of this visit. Either the patient or their legal major account representative has been informed of the risks and benefits of -- and alternatives to -- treatment through a remote evaluation and consents to proceed with the evaluation remotely. Elizabeth Quezada is a 63 year old female seen for followup of CAD CHIEF COMPLAINT Shortness of breast HISTORY OF PRESENT ILLNESS Elizabeth Quezada is a 63 year old female with severe CAD. When I last saw her her BP was quite high as she was very nauseous and she could not keep down her food. She saw her PCP who ordered a RUQ ultrasound. She is scheduled for a liver ultrasound but her nausea arroyo passed. She denies chest pain but she can not walk more than 300 feet due to leg pain ans shortness of breath. I told her I reviewed her cath film. She has multivessel disease and I believe we should refer to surgery. Her BP is well controlled and her pulse is in low 80s. Her diabetes is now much better controlled. PAST MEDICAL HISTORY Diagnosis Date Coronary atherosclerosis Former smoker Hematoma Lung nodules PAD (peripheral artery disease) (HCC) PAST SURGICAL HISTORY Procedure Laterality Date SHX VASCULAR SURGERY 11/28/2022 bilateral kissing iliac stents FAMILY HISTORY Problem Relation Age of Onset Heart Attack Mother Hypertension Mother Hyperlipidemia Mother Kidney Disease Mother Heart Attack Father Hyperlipidemia Father Diabetes Father Social History Tobacco Use Smoking status: Every Day Packs/day: 1.00 Years: 40.00 Additional pack years: 0.00 Total pack years: 40.00 Types: Cigarettes Smokeless tobacco: Never Vaping Use Vaping Use: Never used Substance Use Topics Alcohol use: Yes Alcohol/week: 4.0 standard drinks of alcohol Types: 4 Standard drinks or equivalent per week Drug use: Yes Types: Marijuana ALLERGIES Allergen Reactions Tetracycline Unknown, GI Upset Januvia [Sitaglipti* Unknown Rosuvastatin Unknown Allerg XtDMelFarinae* Itching Cat Hair Standardiz* Itching sneezing House Dust Itching CURRENT MEDICATIONS aspirin 81 mg chewable tablet Take 81 mg by mouth once daily. VENTOLIN HFA 90 mcg/actuation inhaler Inhale 2 Puffs as instructed four times daily. calcium carbonate 500 mg calcium (1,250 mg) chewable tablet Take 500 mg by mouth once daily. carvedilol (COREG) 25 mg tablet Take 25 mg by mouth two times a day. clopidogrel (PLAVIX) 75 mg tablet Take 1 tablet by mouth once daily. TRULICITY 0.75 mg/0.5 mL pen injector Inject 0.5 mL subcutaneously one time a week. JARDIANCE 10 mg tablet Take 1 tablet by mouth once daily. ezetimibe (ZETIA) 10 mg tablet Take 1 tablet by mouth once daily. IBU 800 mg tablet Take 800 mg by mouth four times a day as needed. lisinopril (ZESTRIL) 20 mg tablet Take 1 tablet by mouth once daily. metFORMIN (GLUCOPHAGE) 1,000 mg tablet Take 1,000 mg by mouth two times a day. varenicline (CHANTIX) 1 mg tablet Take 1 tablet by mouth every 12 hours. venlafaxine ER (EFFEXOR XR) 75 mg 24 hr capsule Take 1 capsule by mouth once daily. XARELTO 2.5 mg tablet Take 2.5 mg by mouth two times a day. REVIEW OF SYSTEMS: GASTROINTESTINAL: Negative for: Trouble swallowing, Heartburn, Change in bowel habits, Blood in stool, Dark black stools PHYSICAL EXAMINATION: VIDEO EXAM: (if completed, performed via video enabled technology) PATIENT ENTERED QUESTIONNAIRE SCORES PROMIS Global Health - (T-Scores - the mean of general population = 50. Five points is a clinically meaningful difference.) 05/13/2023 Physical T-Score 37.4 Mental T-Score 53.3 ASSESSMENT: Elizabeth Quezada is a 63 year old female with severe PAD (vascular studies show severely reduced ankle arm indices bilaterally. I reviewed her cath -she has mutlivessel disease with inferior hypokinesis. PLAN (Active Outpatient Problems):CAD-refer to CTS (diabetic with mutlivessel disease )-echo scheduled for 05/28- PAD DM2 I personally spent 25 minutes in total time involved in the management and care of this patient. Shanice Warner MD May 13, 2023 3:10 PM [facility] 05-13-2023 History of Presen t illness Narrative Heart, Vascular & Thoracic Section Department of Cardiovascular Medicine VIRTUAL VIDEO VISIT ESTABLISHED OUTPATIENT VISIT SERVICE DATE: 05/13/2023 Patient: Elizabteh Quezada SERVICE TIME: 3:10 PM : 1960 This is a virtual video visit. It required patient-provider interaction for the medical decision making as documented below. Elizabeth Quezada has consented to this video encounter. I have communicated my name and active licensure. The patient's identity and physical location were verified at the time of this visit. Either the patient or their legal major account representative has been informed of the risks and benefits of -- and alternatives to -- treatment through a remote evaluation and consents to proceed with the evaluation remotely. Elizabeth Quezada is a 63 year old female seen for followup of CAD CHIEF COMPLAINT Shortness of breast HISTORY OF PRESENT ILLNESS Elizabeth Quezada is a 63 year old female with severe CAD. When I last saw her her BP was quite high as she was very nauseous and she could not keep down her food. She saw her PCP who ordered a RUQ ultrasound. She is scheduled for a liver ultrasound but her nausea arroyo passed. She denies chest pain but she can not walk more than 300 feet due to leg pain ans shortness of breath. I told her I reviewed her cath film. She has multivessel disease and I believe we should refer to surgery. Her BP is well controlled and her pulse is in low 80s. Her diabetes is now much better controlled. PAST MEDICAL HISTORY Diagnosis Date Coronary atherosclerosis Former smoker Hematoma Lung nodules PAD (peripheral artery disease) (HCC) PAST SURGICAL HISTORY Procedure Laterality Date SHX VASCULAR SURGERY 11/28/2022 bilateral kissing iliac stents FAMILY HISTORY Problem Relation Age of Onset Heart Attack Mother Hypertension Mother Hyperlipidemia Mother Kidney Disease Mother Heart Attack Father Hyperlipidemia Father Diabetes Father Social History Tobacco Use Smoking status: Every Day Packs/day: 1.00 Years: 40.00 Additional pack years: 0.00 Total pack years: 40.00 Types: Cigarettes Smokeless tobacco: Never Vaping Use Vaping Use: Never used Substance Use Topics Alcohol use: Yes Alcohol/week: 4.0 standard drinks of alcohol Types: 4 Standard drinks or equivalent per week Drug use: Yes Types: Marijuana ALLERGIES Allergen Reactions Tetracycline Unknown, GI Upset Januvia [Sitaglipti* Unknown Rosuvastatin Unknown Allerg XtDMelFarinae* Itching Cat Hair Standardiz* Itching sneezing House Dust Itching CURRENT MEDICATIONS aspirin 81 mg chewable tablet Take 81 mg by mouth once daily. VENTOLIN HFA 90 mcg/actuation inhaler Inhale 2 Puffs as instructed four times daily. calcium carbonate 500 mg calcium (1,250 mg) chewable tablet Take 500 mg by mouth once daily. carvedilol (COREG) 25 mg tablet Take 25 mg by mouth two times a day. clopidogrel (PLAVIX) 75 mg tablet Take 1 tablet by mouth once daily. TRULICITY 0.75 mg/0.5 mL pen injector Inject 0.5 mL subcutaneously one time a week. JARDIANCE 10 mg tablet Take 1 tablet by mouth once daily. ezetimibe (ZETIA) 10 mg tablet Take 1 tablet by mouth once daily. IBU 800 mg tablet Take 800 mg by mouth four times a day as needed. lisinopril (ZESTRIL) 20 mg tablet Take 1 tablet by mouth once daily. metFORMIN (GLUCOPHAGE) 1,000 mg tablet Take 1,000 mg by mouth two times a day. varenicline (CHANTIX) 1 mg tablet Take 1 tablet by mouth every 12 hours. venlafaxine ER (EFFEXOR XR) 75 mg 24 hr capsule Take 1 capsule by mouth once daily. XARELTO 2.5 mg tablet Take 2.5 mg by mouth two times a day. REVIEW OF SYSTEMS: GASTROINTESTINAL: Negative for: Trouble swallowing, Heartburn, Change in bowel habits, Blood in stool, Dark black stools PHYSICAL EXAMINATION: VIDEO EXAM: (if completed, performed via video enabled technology) PATIENT ENTERED QUESTIONNAIRE SCORES PROMIS [employer] - (T-Scores - the mean of general population = 50. Five points is a clinically meaningful difference.) 05/13/2023 Physical T-Score 37.4 Mental T-Score 53.3 ASSESSMENT: Elizabeth Quezada is a 63 year old female with severe PAD (vascular studies show severely reduced ankle arm indices bilaterally. I reviewed her cath -she has mutlivessel disease with inferior hypokinesis. PLAN (Active Outpatient Problems):CAD-refer to CTS (diabetic with mutlivessel disease )-echo scheduled for 05/28- PAD DM2 I personally spent 25 minutes in total time involved in the management and care of this patient. Shanice Warner MD May 13, 2023 3:10 PM documented in this encounter [facility] 05-02-2023 Note HNO ID: [id number] Author: Lizzeth Kong Service: ? Author Type: ? Type: Progress Notes Filed: 05/02/2023 1:53 PM Note Text: May 02, 2023 Patient Contact Number: [phone] Patient last seen within the last year: Yes Date of last office visit: 04.03.23 Reason For Call: pt asking if nurse can call with results of Echo and any recommendations she may need. Asking if she need to be seen before next apt. Scheduled for May. Physician: Shanice Warner MD Patient was informed that non-urgent calls may be returned within the next three business days. Yes Lizzeth Kong [facility] 04-26-2023 Note HNO ID: [id number] Author: Shanice Warner MD Service: ? Author Type: Physician Type: Progress Notes Filed: 04/26/2023 5:19 PM Note Text: I have reviewed her cardiac cath-she indeed has multivessel disease and needs coronary revascularization. I am going to refer her to CTS but I would like to see her echo ; we also need to see whether her nausea and vomiting have improved and whether she has quit smoking; she has significant PAD and aortic disease which make her high risk-Shanice Warner MD [facility] 04-26-2023 History of Presen t illness Narrative I have reviewed her cardiac cath-she indeed has multivessel disease and needs coronary revascularization. I am going to refer her to CTS but I would like to see her echo ; we also need to see whether her nausea and vomiting have improved and whether she has quit smoking; she has significant PAD and aortic disease which make her high risk-Shanice Warner MD documented in this encounter [facility] 04-03-2023 Note HNO ID: [id number] Author: Shanice Warner MD Service: ? Author Type: Physician Type: Progress Notes Filed: 04/03/2023 4:33 PM Note Text: Heart and Vascular Section Arlette Goldstein Department of Cardiovascular Medicine SECTION OF CLINICAL CARDIOLOGY OUTPATIENT VISIT DATE April 02, 2023 OUTPATIENT VISIT TYPE NEW PRIMARY CARE PHYSICIAN: To use this Smartlink, specify the provider ID whose address you want to display, e.g., .PROVADDR[1 (where 1 is the provider ID). REFERRING PHYSICIAN: No referring provider defined for this encounter. CHIEF COMPLAINT: Cardiovascular health evaluation HISTORY OF PRESENT ILLNESS: Ms. Quezada is a 63 year old female who presents today for cardiovascular evaluation. Today, pt is feeling severely ill. Complains of nausea and vomiting which started on Saturday. She went to the ED on Saturday where she got anti nausea medication which subsided her symptoms for a time period. After eating a heavy meal, her symptoms resumed. Pt was brought in today to get cardiac evaluation for possible cardiac bypass.. About a year ago, she was having cramping and trouble with legs. Upon workup, she was told that she had severe peripheral vascular disease. As part of her preop workup she underwent cath prior to vascular surgery? She was told that she had four vessel disease that needs grafting which brings her in today. Per, pt she has a heart cath last week which was prompted by an abnormal stress test. (Inferior defect -attenuation artifact vs true ischemia) Today, pt has an in office bp of 200/116 and her HR is 101 which she attributes to being unable to take her medication this morning due to her nausea. She is still currently smoking. She denies abdominal distention, shortness of breath, orthopnea, edema, palpitations, PND. NURSING INTAKE: Ms. Quezada is a 63 year old female from [place], [place] here today for cardiovascular evaluation related to CAD. Elizabeth has a significant medical history of PAD, S/p bilateral kissing iliac stents 11/28/2022 c/b L thigh hematoma, Coronary Atherosclerosis. She denies chest pain, palpitations, shortness of breath, lightheadedness, dizziness, syncope, PND, and edema at this time. She does have cramping in her legs when she walks. PAST MEDICAL HISTORY Diagnosis Date Coronary atherosclerosis Former smoker Hematoma Lung nodules PAD (peripheral artery disease) (HCC) PAST SURGICAL HISTORY Procedure Laterality Date SHX VASCULAR SURGERY 11/28/2022 bilateral kissing iliac stents SOCIAL HISTORY Social History Tobacco Use Smoking status: Every Day Packs/day: 1.00 Years: 40.00 Additional pack years: 0.00 Total pack years: 40.00 Types: Cigarettes Smokeless tobacco: Never Vaping Use Vaping Use: Never used Substance Use Topics Alcohol use: Yes Alcohol/week: 4.0 standard drinks of alcohol Types: 4 Standard drinks or equivalent per week Drug use: Yes Types: Marijuana FAMILY HISTORY Problem Relation Age of Onset Heart Attack Mother Hypertension Mother Hyperlipidemia Mother Kidney Disease Mother Heart Attack Father Hyperlipidemia Father Diabetes Father ALLERGIES: ALLERGIES Allergen Reactions Tetracycline Unknown, GI Upset Januvia [Sitaglipti* Unknown Rosuvastatin Unknown Allerg Vanda Moreno* Itching Cat Hair Standardiz* Itching sneezing House Dust Itching MEDICATIONS: aspirin 81 mg chewable tablet Take 81 mg by mouth once daily. calcium carbonate 500 mg calcium (1,250 mg) chewable tablet Take 500 mg by mouth once daily. carvedilol (COREG) 25 mg tablet Take 25 mg by mouth two times a day. clopidogrel (PLAVIX) 75 mg tablet Take 1 tablet by mouth once daily. ezetimibe (ZETIA) 10 mg tablet Take 1 tablet by mouth once daily. IBU 800 mg tablet Take 800 mg by mouth four times a day as needed. JARDIANCE 10 mg tablet Take 1 tablet by mouth once daily. lisinopril (ZESTRIL) 20 mg tablet Take 1 tablet by mouth once daily. metFORMIN (GLUCOPHAGE) 1,000 mg tablet Take 1,000 mg by mouth two times a day. TRULICITY 0.75 mg/0.5 mL pen injector Inject 0.5 mL subcutaneously one time a week. varenicline (CHANTIX) 1 mg tablet Take 1 tablet by mouth every 12 hours. venlafaxine ER (EFFEXOR XR) 75 mg 24 hr capsule Take 1 capsule by mouth once daily. VENTOLIN HFA 90 mcg/actuation inhaler Inhale 2 Puffs as instructed four times daily. XARELTO 2.5 mg tablet Take 2.5 mg by mouth two times a day. REVIEW OF SYSTEMS: Positives in bold GENERAL: Negative for: Weight loss or gain, Fever or Chills, Weakness and Sleep difficulties. HEENT: Negative for: Headache, Impaired Vision, Glasses, Hearing Impairment, Ringing in Ears, Nosebleeds, Poor dental care, Bleeding Gums, Dentures NECK: Negative for: Swelling, Pain, Stiffness RESPIRATORY: Negative for: Cough, Blood in Sputum, Shortness of breath, Wheezing, Apnea GASTROINTESTINAL: Negative for: Trouble swallowing, Heartbur (more content not included)... [facility] 04-03-2023 Instructions Serena Smith - 04/03/2023 9:34 AM EDT Complete blood work today Complete Echo documented in this encounter [facility] 04-03-2023 History of Presen t illness Narrative Images from the original note were not included. Heart and Vascular Section Arlette Goldstein Department of Cardiovascular Medicine SECTION OF CLINICAL CARDIOLOGY OUTPATIENT VISIT DATE April 02, 2023 OUTPATIENT VISIT TYPE NEW PRIMARY CARE PHYSICIAN: To use this Smartlink, specify the provider ID whose address you want to display, e.g., .PROVADDR[1 (where 1 is the provider ID). REFERRING PHYSICIAN: No referring provider defined for this encounter. CHIEF COMPLAINT: Cardiovascular health evaluation HISTORY OF PRESENT ILLNESS: Ms. Quezada is a 63 year old female who presents today for cardiovascular evaluation. Today, pt is feeling severely ill. Complains of nausea and vomiting which started on Saturday. She went to the ED on Saturday where she got anti nausea medication which subsided her symptoms for a time period. After eating a heavy meal, her symptoms resumed. Pt was brought in today to get cardiac evaluation for possible cardiac bypass.. About a year ago, she was having cramping and trouble with legs. Upon workup, she was told that she had severe peripheral vascular disease. As part of her preop workup she underwent cath prior to vascular surgery? She was told that she had four vessel disease that needs grafting which brings her in today. Per, pt she has a heart cath last week which was prompted by an abnormal stress test. (Inferior defect -attenuation artifact vs true ischemia) Today, pt has an in office bp of 200/116 and her HR is 101 which she attributes to being unable to take her medication this morning due to her nausea. She is still currently smoking. She denies abdominal distention, shortness of breath, orthopnea, edema, palpitations, PND. NURSING INTAKE: Ms. Quezada is a 63 year old female from [place], [place] here today for cardiovascular evaluation related to CAD. Elizabeth has a significant medical history of PAD, S/p bilateral kissing iliac stents 11/28/2022 c/b L thigh hematoma, Coronary Atherosclerosis. She denies chest pain, palpitations, shortness of breath, lightheadedness, dizziness, syncope, PND, and edema at this time. She does have cramping in her legs when she walks. PAST MEDICAL HISTORY Diagnosis Date Coronary atherosclerosis Former smoker Hematoma Lung nodules PAD (peripheral artery disease) (HCC) PAST SURGICAL HISTORY Procedure Laterality Date SHX VASCULAR SURGERY 11/28/2022 bilateral kissing iliac stents SOCIAL HISTORY Social History Tobacco Use Smoking status: Every Day Packs/day: 1.00 Years: 40.00 Additional pack years: 0.00 Total pack years: 40.00 Types: Cigarettes Smokeless tobacco: Never Vaping Use Vaping Use: Never used Substance Use Topics Alcohol use: Yes Alcohol/week: 4.0 standard drinks of alcohol Types: 4 Standard drinks or equivalent per week Drug use: Yes Types: Marijuana FAMILY HISTORY Problem Relation Age of Onset Heart Attack Mother Hypertension Mother Hyperlipidemia Mother Kidney Disease Mother Heart Attack Father Hyperlipidemia Father Diabetes Father ALLERGIES: ALLERGIES Allergen Reactions Tetracycline Unknown, GI Upset Januvia [Sitaglipti* Unknown Rosuvastatin Unknown Allerg Xt,DMelFarinae* Itching Cat Hair Standardiz* Itching sneezing House Dust Itching MEDICATIONS: aspirin 81 mg chewable tablet Take 81 mg by mouth once daily. calcium carbonate 500 mg calcium (1,250 mg) chewable tablet Take 500 mg by mouth once daily. carvedilol (COREG) 25 mg tablet Take 25 mg by mouth two times a day. clopidogrel (PLAVIX) 75 mg tablet Take 1 tablet by mouth once daily. ezetimibe (ZETIA) 10 mg tablet Take 1 tablet by mouth once daily. IBU 800 mg tablet Take 800 mg by mouth four times a day as needed. JARDIANCE 10 mg tablet Take 1 tablet by mouth once daily. lisinopril (ZESTRIL) 20 mg tablet Take 1 tablet by mouth once daily. metFORMIN (GLUCOPHAGE) 1,000 mg tablet Take 1,000 mg by mouth two times a day. TRULICITY 0.75 mg/0.5 mL pen injector Inject 0.5 mL subcutaneously one time a week. varenicline (CHANTIX) 1 mg tablet Take 1 tablet by mouth every 12 hours. venlafaxine ER (EFFEXOR XR) 75 mg 24 hr capsule Take 1 capsule by mouth once daily. VENTOLIN HFA 90 mcg/actuation inhaler Inhale 2 Puffs as instructed four times daily. XARELTO 2.5 mg tablet Take 2.5 mg by mouth two times a day. REVIEW OF SYSTEMS: Positives in bold GENERAL: Negative for: Weight loss or gain, Fever or Chills, Weakness and Sleep difficulties. HEENT: Negative for: Headache, Impaired Vision, Glasses, Hearing Impairment, Ringing in Ears, Nosebleeds, Poor dental care, Bleeding Gums, Dentures NECK: Negative for: Swelling, Pain, Stiffness RESPIRATORY: Negative for: Cough, Blood in Sputum, Shortness of breath, Wheezing, Apnea GASTROINTESTINAL: Negative for: Trouble swallowing, Heartburn, Change in bowel habits, Blood in stool, Dark black stools MUSCULOSKELETAL: Negative for: Muscle or joint pain, Stiffness , Joint swelling NEUROLOGIC/PSYCHIATRIC: Negative for: Weakness, Paralysis, Numbness, Tingling, Tremor, Nervousness, Depressed mood, Memory loss SKIN: Negative for: Rashes, Itching HEMATOLOGICAL/LYMPHATIC: Negative for: Easy bruising , Easy bleeding ENDOCRINE: Negative for: Heat or cold intolerance, Excessive sweating, Frequent urination, Frequent thirst PHYSICAL EXAMINATION: BP 200/116 (BP Site: Left Arm) Pulse 101 General: Well appearing, in no acute distress, speaking in complete sentences. Skin: No clubbing, no cyanosis. Eyes: Extra ocular movements intact, Normal conjunctiva, Non-icteric sclerae Oropharynx: Teeth in good repair. Neck: No jugular venous distention, no carotid bruits, carotids have a normal upstroke, no palpable thyromegaly. Lungs: Clear to auscultation bilaterally, no wheezing or rhonchi. Heart: Regular rhythm, PMI not displaced, S1, S2 normal, no S3, no S4, no heaves, no rub and no murmur. Abdomen: Soft, nontender, bowel sounds normal, no palpable organomegaly, no bruits. Extremities: No peripheral edema . Grade 2/4 distal pulses bilaterally. Neuro: Oriented to person, place and time, alert, cooperative, gait coordinated. CARDIOVASCULAR MEDICINE TESTING: Electrocardiogram 04/02/2023: External Echocardiogram 05/28/2022: External NM Stress/Rest Test 05/22/2022: External CT Lung Cancer Screening 05/11/2022: External Labs: I have personally reviewed the Electrocardiogram, Laboratory Testing, Echocardiogram, CT lung and Stress Test: Nuclear (Non-PET). IMPRESSION: Ms. Quezada is a 63 year old female with a past medical history of coronary atherosclerosis, hematoma, lung nodules, peripheral artery disease, s/p vascular surgery with insertion of bilateral iliac stents and former smoker. Today, pt appears to be ill, citing nausea and vomiting as her main concerns. Due to these symptoms, she has not being able to keep food and hasn't being able to take her medications which explains her high bp reading in clinic today. I explained the importance of getting blood pressure under control through strict adherence of her medication regimen. As she does still smoke, I encouraged her to quit smoking as this may jeopardize her candidacy for surgery. Pt does recall being told that she had an abnormal stress test which prompted a hearth cath procedure. I will order an Echo to monitor her LV functionand would like her to send me the films from her catheterization. After evaluating the results of her studies I will make final recommendation of the next steps needed to get her cleared for bypass surgery. We have very little information from the outside hospital and she is not very clear about he rmedical history PLAN AND RECOMMENDATIONS: Complete blood work today Complete Echo I personally interviewed, confirmed and edited the above information as obtained by others. CONTACT INFORMATION: Dr. Usha Warner MD Cardiology ATTESTATION: By signing my name below, I, Serena Smith, attest that this documentation has been prepared under the direction and in the presence of Shanice Warner MD. Electronically signed:Alis oGmez, April 03, 2023 10:10 AM documented in this encounter [facility] 03-26-2023 Hospital Discharg e instructions Additional Instructions DISCHARGE INSTRUCTIONS FOR CARDIAC TRACK MANAGER PHONE NUMBER OF YOUR PHYSICIAN: [phone] PROCEDURE: Heart Cath The following instructions have been prepared to help you care for yourself, or be cared for upon your return home. 1. You were given conscious sedation. Do not operate a vehicle, power tools, make important decisions, or drink alcohol for 24 hours. You might be drowsy or light headed. Return to the Emergency Room if you have trouble breathing, walking or nausea and vomiting. 2. FOR BLEEDING: Apply continuous pressure to the site and call 911. 3. Operative Site Care: Keep the dressing clean and dry. You may change the dressing only if soiled or wet. You may remove the dressing the following morning. You may wash over the puncture site in the shower. If the puncture site is at the wrist no soaking for 3 days. Some bruising or slight swelling may be present. -Signs of infection are redness, warmth, swelling, getting more sore, colored drainage, fever or chills. -Should the arm or leg become cold, numb, blue or white, call the team supervisor immediately. 4. ACTIVITY: You are advised to go directly home from the hospital. Restrict your activities for the rest of the day. Resume light or normal activities tomorrow. Do not engage in any activity that will stress the puncture site. Avoid heavy lifting (over 15 lbs.), straining or bending at the catheter site for 48 hours after discharge. If the puncture site is at the wrist do not manipulate wrist for 24 hours and no lifting more than 3 lbs for 3 days. 5. DIET:You may eat your regular diet when you desire. 6. MEDICATIONS: Resume your daily prescription schedule. Prescriptions may be sent with you if needed. Use as directed. When taking pain medications, you may experience dizziness or drowsiness. Do not drink alcohol or drive when taking pain medications. 7. If you should experience episodes of angina e.g. chest discomfort, heaviness, tightness, pressure, burning, with or without radiation to the neck, jaws, arms, or back- Use 1 Nitrostat under your tongue every 5-10 minutes, and up to 3 tablets. If no relief- Call 911 and go to the nearest Emergency Room. -Notify the office for recurrent angina, chest pain or other concerns. You may NOT drive yourself home! Follow the medication instructions provided on your discharge. If the dosages and instructions on this sheet differ from the dosage and instructions on the bottle, follow the instructions on the bottle. [facility] is not responsible for incorrect prescription information provided by the patient during their visit. Do not stop your medications without consulting your health care provider. Please take the list with you to your next doctor's appointment. [facility] Work Phone: 03-20-2023 Evaluation note Encounter Date Diagnosis Assessment Notes Feb, Shortness of breath (ICD-10 - R06.02) Feb, Abnormal stress test (ICD-10 - R94.39) 63-year-old female with past medical history significant for peripheral vascular disease status post bilateral iliac kissing stents with now worsening intermittent claudication. She is planned for an aortobifemoral bypass surgery at [facility] on March 29, 2023 and presents for cardiac clearance. Stress MPI on May 22, 2022: Inferior wall diaphragm attenuation artifact versus fixed perfusion defect. EF on the stress test was 45%. Echo 05/28/2022: EF of 55 to 60% with mild concentric LVH, normal wall motion. EKG today shows normal sinus rhythm with first-degree AV block and old inferior infarct. Assessment: Abnormal stress MPI-fixed perfusion defectSevere PAD status post bilateral iliac stentsHypertensionHyperl ipidemiaDiabetesActive tobacco use Plan: -Given elevated cardiac risk factors including history of PAD, diabetes, hyperlipidemia, hypertension and active tobacco use going into high risk vascular surgery, will elect to perform a left heart catheterization tomorrow for further risk stratification. Risks and benefits of procedure have been communicated to the patient and she is willing to proceed. She is willing to retain her DNR status for the procedure and -Instructed to continue holding metformin. Jardiance and lisinopril due to contrast dye. -BP well controlled -Advised on smoking cessation. -We will arrange 1 month follow-up in clinic. Feb, Peripheral vascular disease, unspecified (ICD-10 - I73.9) Feb, Peripheral vascular disease, unspecified (ICD-10 - I73.9) Feb, Tobacco abuse (ICD-10 - Z72.0) Feb, Type 2 diabetes mellitus with other circulatory complication, without long-term current use of insulin (ICD-10 - E11.59) Feb, Primary hypertension (ICD-10 - I10) Feb, Hyperlipidemia, unspecified hyperlipidemia type (ICD-10 - E78.5) [facility] Other 11-17-2022 NotePROCEDURE: XR FOOT RT MIN 3 VIEWS COMPARISON: None. HISTORY: Pain in right foot FINDINGS: BONES:No acute fracture or dislocation. Moderate enthesopathic spurring of the calcaneus. Mild to moderate degenerative changes in the midfoot no focal lytic or sclerotic changes SOFT TISSUES:Negative. No visible soft tissue swelling. EFFUSION:None visible. OTHER: Negative. IMPRESSION: Degenerative changes No plain film evidence of osteomyelitis Electronically authenticated by: NISA HOLLOWAY Date: 2022-05-10 13:23[facility] complaint Narrative - ReportedELIZABETH QUEZADA is being seen for a consultation for dizziness, fatigue and palpitations.-[facility] [place] [address] DO Work Phone: Evaluation noteNo assessment information available [facility] Work Phone: Evaluation noteNo InformationNortLECOM [facility] [employer] Other Evaluation note* Diagnosis Abnormal stress test- Primary Other nonspecific abnormal cardiovascular system function study [facility]* Diagnosis Abnormal stress test- Primary Other nonspecific abnormal cardiovascular system function study [facility]* Diagnosis Coronary artery disease involving havasupai coronary artery without angina pectoris, unspecified whether havasupai or transplanted heart- Primary [facility] Diagnosis Coronary artery disease involving havasupai coronary artery of havasupai heart without angina pectoris- Primary Preop cardiovascular exam Pre-operative cardiovascular examination Morbid obesity (HCC) Morbid obesity documented in this encounter [facility] note* Diagnosis SOB (shortness of breath)- Primary Shortness of breath Coronary artery disease involving havasupai coronary artery of havasupai heart without angina pectoris PAD (peripheral artery disease) ([facility]) Peripheral vascular disease, unspecified [facility]* Diagnosis 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 (HCC)- Primary PAD (peripheral artery disease) ([facility]) Peripheral vascular disease, unspecified S/P insertion of iliac artery stent Other postprocedural status Current smoker Tobacco use disorder Primary hypertension Unspecified essential hypertension Coronary angioplasty status Postsurgical percutaneous transluminal coronary angioplasty status documented in this encounter [facility] general Narrative - Reported* Type Description Date Medical History aortic stenosis Medical History diabetes type 2 Medical History blood clot Medical History hypertension Medical History hyperlipidemia Medical History peripheral vascular disease Surgical History carpal tunnel Surgical History trigger finger Surgical History tubal ligation Surgical History bilateral kissing stents Surgical History left thigh evacuation hematoma Hospitalization History blood clot after cardiac stents [facility] Other History of Present illness Narrative* Patient is seen in consultation at the request of her primary care provider for recent abnormal test results * She is individual who expressed anxiety regarding heart disease because of family history. Curiously she is aerobically active with no symptoms whatsoever. I cannot elicit any angina CHF or arrhythmia symptoms. Nonetheless she had a stress perfusion study demonstrated no ischemia and no infarct. Thi s study did, though, suggest ejection fraction 47%. At the same time an echocardiogram was done andit was basically normal with a normal ejection fraction of 60% and no other structural heart disease. * I explained to her and her that we believe the ejection fraction of 60% by echo because itsmore accurate in predicting such matters, as opposed to the ejection fraction estimated from the stress perfusion study. In light of all the above I advised her I detect no suggestion of ischemia, infarct, or cardiomyopathy. Additionally her history is unimpressive and because of all the above we suggest continued risk factor management by treatment of diabetes and hyperlipidemia. She also was congratulated on her recent smoking cessation accomplishment and encouraged to continue tobacco abstinence. Lastly we did articulate to her the benefits of weight loss and diet and she will attempt to implement her recommendations * I advised her that in the absence of any heart disease I suspect she should continue medical therapy as before without change and see us henceforth as needed. [place] [address] DO Work Phone: [facility] (narrative)* Outpatient Procedure (Routine) - Authorized Specialty Diagnoses / Procedures Referred By Catherine michel Referred To Contact [facility] Diagnoses Abnormal stress test Procedures ECHO ECHO TTHRC R-T 2D W/WOM-MODE COMPL SPEC&COLR D Shanice Warner MD [address] [place] [address] [facility] Vascular Section [address] [place] [address] Referral ID Status Reason Start Date Expiration Date Visits Requested Visits Authorized [id number] Authorized Auto-Generat ed Referral 3 04/02/2024 1 1 [facility] for referral (narrative)* Outpatient Procedure (Routine) - Authorized Specialty Diagnoses / Procedures Referred By Catherine michel Referred To Contact [facility] Diagnoses Abnormal stress test Procedures ECG COMPLETE ECG ROUTINE ECG W/LEAST 12 LDS W/I&R Pamela Laws APRN.CNP [address] [place] [address] [facility] Vascular [address] [address] Referral ID Status Reason Start Date Expiration Date Visits Requested Visits Authorized [id number] Authorized Auto-Generat ed Referral 3 04/07/2024 1 1 [facility] for referral (narrative)* Outpatient Procedure (Routine) - Authorized Specialty Diagnoses / Procedures Referred By Catherine t Referred To Contact HEART AND VASCULAR SMOOT Diagnoses 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 (HCC) PAD (peripheral artery disease) (HCC) S/P insertion of iliac artery stent Current smoker Primary hypertension Coronary angioplasty status Procedures US RADIAL ARTERY MAP LOVE VAS LAB DUP-SCAN UXTR ART/ARTL BPGS COMPL BI STUDY Willem Montilla MD [address] [place] [address] [facility] Vascular [address] [address] Referral ID Status Reason Start Date Expiration Date Visits Requested Visits Authorized [id number] Authorized Auto-Generat ed Referral 3 06/02/2024 1 1 * Outpatient Procedure (Routine) - Authorized Specialty Diagnoses / Procedures Referred By Catherine michel Referred To Contact [facility] Diagnoses 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 (HCC) PAD (peripheral artery disease) (HCC) S/P insertion of iliac artery stent Current smoker Primary hypertension Coronary angioplasty status Procedures LUNG DIFFUSION CAPACITY (DLCO) DIFFUSING CAPACITY Willem Montilla MD [address] [facility] [place] [address] [facility] [place] [address] Referral ID Status Reason Start Date Expiration Date Visits Requested Visits Authorized [id number] Authorized Auto-Generat ed Referral 3 07/02/2024 1 1 * Outpatient Procedure (Routine) - Authorized Specialty Diagnoses / Procedures Referred By Catherine michel Referred To [facility]IR[facility]ORY INSTITUTE Diagnoses 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 (HCC) PAD (peripheral artery disease) (HCC) S/P insertion of iliac artery stent Current smoker Primary hypertension Coronary angioplasty status Procedures SPIROMETRY BASELINE ONLY SPMTRY W/VC EXPIRATORY CHERYL W/WO MXML VOL VNTJ Willem Montilla MD [address] [place] [address] [place] [address] Referral ID Status Reason Start Date Expiration Date Visits Requested Visits Authorized [id number] Authorized Auto-Generat ed Referral 3 07/02/2024 1 1 * Outpatient Procedure (Routine) - Authorized Specialty Diagnoses / Procedures Referred By Catherine michel Referred To [facility] Diagnoses 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 (HCC) PAD (peripheral artery disease) (HCC) S/P insertion of iliac artery stent Current smoker Primary hypertension Coronary angioplasty status Procedures US MAMMARY ARTERY LOVE VAS LAB DUP-SCAN UXTR ART/ARTL BPGS COMPL BI STUDY Willem Montilla MD [address] [place] [address] [place] [address] Referral ID Status Reason Start Date Expiration Date Visits Requested Visits Authorized [id number] Authorized Auto-Generat ed Referral 3 06/02/2024 1 1 * Outpatient Procedure (Routine) - Authorized Specialty Diagnoses / Procedures Referred By Catherine t Referred To Contact [facility] Diagnoses 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 (HCC) PAD (peripheral artery disease) (HCC) S/P insertion of iliac artery stent Current smoker Primary hypertension Coronary angioplasty status Procedures US LEG VEIN MAP LOVE VAS LAB DUP-SCAN XTR VEINS COMPLETE BILATERAL STUDY Willem Montilla MD [address] [place] [address] [facility] Vascular [address] [address] Referral ID Status Reason Start Date Expiration Date Visits Requested Visits Authorized [id number] Authorized Auto-Generat ed Referral 3 06/02/2024 1 1 * Outpatient Procedure (Routine) - Authorized Specialty Diagnoses / Procedures Referred By Catherine michel Referred To Contact [facility] Diagnoses 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 (HCC) PAD (peripheral artery disease) (HCC) S/P insertion of iliac artery stent Current smoker Primary hypertension Coronary angioplasty status Procedures US CAROTID ARTERIES LOVE VAS LAB DUPLEX SCAN EXTRACRANIAL ART COMPL BI STUDY Willem Montilla MD [address] [place] [address] [facility] Vascular [place] [id number] Referral ID Status Reason Start Date Expiration Date Visits Requested Visits Authorized [id number] Authorized Auto-Generat ed Referral 3 06/23/2023 1 1 * MRI/CT (Routine) - Authorized Specialty Diagnoses / Procedures Referred By Catherine michel Referred To Contact CT IMAGING Diagnoses 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 (HCC) PAD (peripheral artery disease) (HCC) S/P insertion of iliac artery stent Current smoker Primary hypertension Coronary angioplasty status Procedures CT CHEST CARDIAC WO IVCON DIAGNOSTIC COMPUTED TOMOGRAPHY THORAX W/O CNTRST Willem Montilla MD [address] [place] [address] [address] [address] [id number] Referral ID Status Reason Start Date Expiration Date Visits Requested Visits Authorized [id number] Authorized Auto-Generat ed Referral 3 07/02/2024 1 1 * Consult, Test, Treat (Routine) - Authorized Specialty Diagnoses / Procedures Referred By Catherine t Referred To Contact Vascular Surgery Diagnoses 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 (HCC) PAD (peripheral artery disease) (HCC) S/P insertion of iliac artery stent Current smoker Primary hypertension Coronary angioplasty status Procedures CONSULT TO VASCULAR SURGERY OFFICE/OUTPATIENT [facility] 60-74 MINUTES Willem Montilla MD [address] [place] [address] Referral ID Status Reason Start Date Expiration Date Visits Requested Visits Authorized [id number] Authorized PCP Requested Referral 3 06/02/2024 1 1 * Consult, Test, Treat (Routine) - Authorized Specialty Diagnoses / Procedures Referred By Catherine t Referred To Contact Cardiac Surg Diagnoses 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 (HCC) PAD (peripheral artery disease) (HCC) S/P insertion of iliac artery stent Current smoker Primary hypertension Coronary angioplasty status Procedures CARDIOTHORACIC PREOP EVALUATION OFFICE/OUTPATIENT [facility] 60-74 MINUTES Willem Montilla MD [address] [place] [address] Referral ID Status Reason Start Date Expiration Date Visits Requested Visits Authorized [id number] Authorized PCP Requested Referral 3 06/02/2024 1 1 [facility] Summary Purpose Family History No Family History Records FoundUnknown Family Member Name Dates Details Family history of malignant neoplasm: Brother(V16.9, Z80.9) Status:Active Family history of cardiac di sorder: Mother, Father, Brother(V17.49, Z82.49) Status:Active Unknown Family Member Name Dates Details Family history of malignant neoplasm: Brother(V16.9, Z80.9) Status:Active Family history of cardiac di sorder: Mother, Father, Brother(V17.49, Z82.49) Status:Active Unknown Family Member Name Dates Details Family history of malignant neoplasm: Brother(V16.9, Z80.9) Status:Active Family history of cardiac di sorder: Mother, Father, Brother(V17.49, Z82.49) Status:Active Relationship Condition Age at Onset Recorded Date/T bradley father Hypertension Unknown Not Specified Hypertension Unknown Disorder of kidney Unknown brother Malignant neoplasm of lung Unknown Advance Directives No Advanced Directives Records Found Advance Directive Response Recorded Date/ Time Advance Directives No February 2:51pm Chief Complaint and Reason for Visit Chief Complaint Abnormal Stress Test Chief Complaint Abnormal Stress Test Abnormal Stress Test Reason for Referral Specialty Diagnoses / Procedures Referred By Catherine michel Referred To Contact Procedures CARDIOVASCULAR MEDICINE OP FOLLOW UP APPT ORDER Shanice Warner MD [address] [facility] [place] [address] Referral ID Status Reason Start Date Expiration Date Visits Requested Visits Authorized [id number] Ref Not Required PCP Requested Referral 05/28/2023 05/27/2024 1 1 Specialty Diagnoses / Procedures Referred By Catherine michel Referred To Contact Cardiothoracic Surgery Diagnoses Coronary artery disease involving havasupai coronary artery without angina pectoris, unspecified whether havasupai or transplanted heart Procedures CONSULT TO CARDIOTHORACIC SURGERY Shanice Warner MD [address] [facility] [place] [address] Referral ID Status Reason Start Date Expiration Date Visits Requested Visits Authorized [id number] Ref Not Required PCP Requested Referral 05/26/2023 04/25/2024 1 1 Additional Source Comments INFORMATION SOURCE (unrecogn ized section and content) DATE CREATED AUTHOR 07/19/2022 [facility] DATE CREATED AUTHOR AUTHOR'S ORGANIZ ATION 07/20/2022 [employer] DATE CREATED AUTHOR AUTHOR'S ORGANIZ ATION 10/07/2022 [facility] DATE CREATED AUTHOR AUTHOR'S ORGANIZ ATION 04/03/2023 [facility] DATE CREATED AUTHOR AUTHOR'S ORGANIZ ATION 06/11/2023 [facility] DATE CREATED AUTHOR AUTHOR'S ORGANIZ ATION 06/15/2023 [facility] Care Teams (unrecognized sec tion and content) Team Status: Active Member Role Status Dates Nano Muhammad MD Primary Care Provider Active Team Status: Inactive Member Role Status Dates Patrizia Melendrez MD Attending Provider Active Nano Muhammad MD Primary Care Provider Active [employer]p Network Architect Relationship Specialty Start Date End Date Shanice Warner MD [address] [place], [place] [id number] Primary Staff Physician Cardiology 04/03/23 [employer]p Network Architect Relationship Specialty Start Date End Date Shanice Warner MD [address] [place] [address] Primary Staff Physician Cardiology 04/03/23 Ip Network Architect Relationship Specialty Start Date End Date Shanice Warner MD [address] [place] [address] Primary Staff Physician Cardiology 04/03/23 Ip Network Architect Relationship Specialty Start Date End Date Shanice Warner MD [address] [place], [place] [id number] Primary Staff Physician Cardiology 04/03/23 Ip Network Architect Relationship Specialty Start Date End Date Shanice Warner MD [address] [place], [place] [id number] Primary Staff Physician Cardiology 04/03/23 Willem Montilla MD [address] [place] [address] Surgeon Cardiac Surg 05/30/23 Ip Network Architect Relationship Specialty Start Date End Date Shanice Warner MD [address] [place] [address] Primary Staff Physician Cardiology 04/03/23 Willem Montilla MD [address] [place] [address] Surgeon Cardiac Surg 05/30/23 Goals (unrecognized section and content) Goals may be documented in a n alternate sectionNo InformationNo InformationNo Information REASON FOR VISIT (unrecogniz ed section and content) Reason Comments Follow Up Tests Results Reason Comments Follow Up Reason Comments Insurance Authorization Reason Comments Referral Information New Patient Evaluation Source Comments (unrecognize d section and content) In the event this informatio n is protected by the Federal Confidentiality of Alcohol and Drug Abuse Patient Records regulations: The Federal rules restrict any use of the information to criminally investigate or prosecute any alcohol or drug abuse patient.[facility] the event this information is protected by the Federal Confidentiality of Alcohol and Drug Abuse Patient Records regulations: The Federal rules restrict any use of the information to criminally investigate or prosecute any alcohol or drug abuse patient.[facility] the event this information is protected by the Federal Confidentiality of Alcohol and Drug Abuse Patient Records regulations: The Federal rules restrict any use of the information to criminally investigate or prosecute any alcohol or drug abuse patient.[facility] the event this information is protected by the Federal Confidentiality of Alcohol and Drug Abuse Patient Records regulations: The Federal rules restrict any use of the information to criminally investigate or prosecute any alcohol or drug abuse patient.[facility] the event this information is protected by the Federal Confidentiality of Alcohol and Drug Abuse Patient Records regulations: The Federal rules restrict any use of the information to criminally investigate or prosecute any alcohol or drug abuse patient.[facility] the event this information is protected by the Federal Confidentiality of Alcohol and Drug Abuse Patient Records regulations: The Federal rules restrict any use of the information to criminally investigate or prosecute any alcohol or drug abuse patient.[facility] the event this information is protected by the Federal Confidentiality of Alcohol and Drug Abuse Patient Records regulations: The Federal rules restrict any use of the information to criminally investigate or prosecute any alcohol or drug abuse patient.[facility] the event this information is protected by the Federal Confidentiality of Alcohol and Drug Abuse Patient Records regulations: The Federal rules restrict any use of the information to criminally investigate or prosecute any alcohol or drug abuse patient.[facility] FOR RECORDS PERTAINING TO PATIENTS WHO ARE OR HAVE BEEN ENROLLED IN A CHEMICAL DEPENDENCY/SUBSTANCEABUSE PROGRAM, SOME INFORMATION MAY BE OMITTED. This clinical summary was aggregated from multiple sources. Caution should be exercised in using it in the provision of clinical care. This summary normalizes information from multiple sources, and as a consequence, information in this document may materially change the coding, format and clinical context of patient data. In addition, data may be omitted in some cases. CLINICAL DECISIONS SHOULD BE BASED ON THE PRIMARY CLINICAL RECORDS. [facility]. provides no warranty or guarantee of the accuracy or completeness of information in this document.
--- NOTE | 2023-06-20 11:04 | ED.GENADUL1 ---
HPI - General Adult General Chief complaint: Abdominal Pain Stated complaint: BLOCKAGE IN BOWEL Time Seen by Provider: 06/20/23 10:49 Source: patient Mode of arrival: walk-in History of Present Illness HPI narrative: this patient's here complaint onset of nausea and vomiting this morning. He can comes and goes. Review reviewed her previous records from her Emergency Room visits. 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 Today she does not have shortness of breath chest pain. She does not have cough sore throat aches and pains or any viral symptomatology. She states that she's not moved her bowels for approximately one week and she thinks this was causing her to be plugged up and having the nausea. Over the holiday she's been eating and drinking and taking fluids normally. She has not seen any blood in her bowel movements. She's not had blood in her vomitus. She has had problems with nausea and vomiting previously that may or may not be related to marijuana use. Related Data Home Medications Medication Instructions Recorded Confirmed albuterol sulfate 90 mcg/actuation 2 puff inhalation Q6H PRN 03/31/23 06/20/23 aerosol inhaler (Ventolin HFA) shortness of breath or wheezing carvedilol 25 mg tablet 25 mg PO Q12H 03/31/23 06/20/23 clopidogrel 75 mg tablet 75 mg PO DAILY 03/31/23 06/20/23 dulaglutide 0.75 mg/0.5 mL 0.75 mg subcut .weekly 03/31/23 06/20/23 subcutaneous pen injector (Trulicity) empagliflozin 10 mg tablet 10 mg PO DAILY 03/31/23 06/20/23 (Jardiance) ezetimibe 10 mg tablet 10 mg PO DAILY 03/31/23 06/20/23 lisinopril 20 mg tablet 20 mg PO DAILY 03/31/23 06/20/23 metformin 1,000 mg tablet 1,000 mg PO BID 03/31/23 06/20/23 rivaroxaban 2.5 mg tablet (Xarelto) 2.5 mg PO BID 03/31/23 03/31/23 varenicline 1 mg tablet 1 mg PO BID 03/31/23 06/20/23 venlafaxine 75 mg capsule,extended 75 mg PO DAILY 03/31/23 06/20/23 release 24 hr pantoprazole 40 mg tablet,delayed 40 mg PO DAILY 06/20/23 06/20/23 release Previous Rx's Medication Instructions Recorded ondansetron 4 mg disintegrating 4 mg PO Q6H PRN nausea and 03/31/23 tablet vomiting #20 tabs Allergies Allergy/AdvReac Type Severity Reaction Status Date / Time Tetracyclic Antidepressants AdvReac Severe Vomiting Verified 03/03/23 11:00 PFSH PFS Social History Smoking status: Current every day smoker Exam Narrative Exam Narrative: very pleasant female moves about comfortably appears stated age. She is afebrile. She is quite sure she does needs to have a bowel movement. Constitutional hydration status appears normal. On HEENT she has no scleral icterus or evidence of anemia. Examination chest she has no cough congestion wheezing or retractions. Examination abdomen there is no guarding or rebound rigidity or peritoneal findings. Extremities show no severe peripheral edema. Constitutional Vital Signs, click to edit/add: Last Vital Signs Temp 97.7 F 06/20/23 10:45 Pulse 84 06/20/23 10:45 Resp 16 06/20/23 10:45 BP 194/97 H 06/20/23 11:36 Pulse Ox 99 06/20/23 10:45 O2 Del Method Room Air 06/20/23 10:45 Course Vital Signs Vital signs: Vital Signs Temperature 97.7 F 06/20/23 10:45 Pulse Rate 84 06/20/23 10:45 Respiratory Rate 16 06/20/23 10:45 Blood Pressure 215/98 H 06/20/23 10:45 Pulse Oximetry 99 06/20/23 10:45 Oxygen Delivery Method Room Air 06/20/23 10:45 Temperature 97.7 F 06/20/23 10:45 Pulse Rate 84 06/20/23 10:45 Respiratory Rate 16 06/20/23 10:45 Blood Pressure 194/97 H 06/20/23 11:36 Pulse Oximetry 99 06/20/23 10:45 Oxygen Delivery Method Room Air 06/20/23 10:45 Medical Decision Making MDM Narrative Medical decision making narrative: patient's laboratory testing essentially within normal limits. Her x-rays consistent with large stool burden distally but no evidence of bowel obstruction or other catastrophic process. We will give her a enema Lab Data Labs: Lab Results 06/20/23 Range/Units 11:08 WBC 10.6 (4.0-11.0) 10^3/uL RBC 5.80 H (4.20-5.40) 10^6/uL Hgb 18.3 H (12.0-16.0) g/dL Hct 53.7 H (36.0-48.0) % MCV 92.6 (81.0-99.0) fL MCH 31.6 (26.7-34.0) pg MCHC 34.1 (29.9-35.2) g/dL RDW 12.5 (11.0-15.0) % Plt Count 332 (150-450) 10^3/uL MPV 9.5 (9.5-13.5) fL Neut % (Auto) 68.4 (43.0-75.0) % Lymph % (Auto) 22.7 (20.5-60.0) % [place] % (Auto) 7.0 (1.7-12.0) % Eos % (Auto) 0.9 (0.9-7.0) % Baso % (Auto) 0.4 (0.2-2.0) % Neut # (Auto) 7.2 H (1.4-6.5) 10^3/uL Lymph # (Auto) 2.4 (1.2-3.8) 10^3/uL [place] # (Auto) 0.7 (0.3-0.8) 10^3/uL Eos # (Auto) 0.1 (0.0-0.7) 10^3/uL Baso # (Auto) 0.0 (0.0-0.1) 10^3/uL Abs Immat Gran (auto) 0.06 H (0.00-0.03) 10^3/uL Imm/Tot Granulo (auto) 0.6 H (0.0-0.5) % Sodium 132 L (136-145) mmol/L Potassium 4.4 (3.5-5.1) mmol/L Chloride 94 L (98-107) mmol/L Carbon Dioxide 25.5 (21.0-32.0) mmol/L Anion Gap 16.9 BUN 22.0 H (7.0-18.0) mg/dL Creatinine 1.12 H (0.55-1.02) mg/dL Est GFR ( Amer) 59 L (>=60) Est GFR (Non-Af Amer) 49 L (>=60) BUN/Creatinine Ratio 19.6 Glucose 161 H (74-106) mg/dL Calcium 10.8 H (8.5-10.1) mg/dL Total Bilirubin 0.7 (0.2-1.0) mg/dL AST 12 L (15-37) U/L ALT 21 (14-59) U/L Alkaline Phosphatase 98 (46-116) U/L Troponin I High Sens 8.9 (4.0-51.3) pg/mL Total Protein 9.0 H (6.4-8.2) g/dL Albumin 4.3 (3.4-5.0) g/dL Globulin 4.7 g/dL Albumin/Globulin Ratio 0.9 Discharge Plan Discharge Chief Complaint: Abdominal Pain Clinical Impression: Acute constipation, Abdominal pain Patient Disposition: Home, Self-Care Time of Disposition Decision: 13:50 Prescriptions / Home Meds: No Action Trulicity 0.75 mg/0.5 mL pen injector 0.75 mg SUBCUT .weekly ezetimibe 10 mg tablet 10 mg PO DAILY lisinopril 20 mg tablet 20 mg PO DAILY Xarelto 2.5 mg tablet 2.5 mg PO BID varenicline 1 mg tablet 1 mg PO BID venlafaxine 75 mg capsule,extended release 24hr 75 mg PO DAILY metformin 1,000 mg tablet 1,000 mg PO BID Jardiance 10 mg tablet 10 mg PO DAILY clopidogrel 75 mg tablet 75 mg PO DAILY carvedilol 25 mg tablet 25 mg PO Q12H albuterol sulfate [Ventolin HFA] 90 mcg/actuation HFA aerosol inhaler 2 puff INHALATION Q6H PRN (Reason: shortness of breath or wheezing) ondansetron 4 mg tablet,disintegrating 4 mg PO Q6H PRN (Reason: nausea and vomiting) Qty: 20 0RF pantoprazole 40 mg tablet,delayed release (DR/EC) 40 mg PO DAILY Stand Alone Forms: Portal Instructions Referrals: Froylan Muhammad MD [Primary Care Provider] - 1 week
--- NOTE | 2023-06-20 11:06 | XR_ITS ---
The [address] [address] Patient Name: PAULY QUEZADA MRN: [id number] date: 1960 Sex: F Assigned Patient Location: ER Current Patient Location: ER Accession/Order Number: [id number] Exam Date: 06/20/2023 11:38 Report Date: 06/20/2023 12:13 At the request of: DARIN IBARRA Procedure: XR acute abdomen series EXAMINATION: XR acute abdomen series HISTORY: vomiting/abdominal pain COMPARISON: No relevant comparison available. FINDINGS: LUNGS: Trace amount of stranding within right lateral costophrenic angle; atelectasis versus infiltrates. MEDIASTINUM: No abnormal widening. BOWEL GAS PATTERN: Large amount of stool throughout the colon. No abnormal bowel dilation or suspicious fluid levels. FREE AIR: None. CALCIFICATIONS: None significant. BONES: No fracture or visible bone lesion. OTHER: Negative. XR/XR acute abdomen series IMPRESSION: 1. Trace amount of atelectasis, or possibly infiltrates within lateral right lung base. 2. Large stool burden suggestive of constipation. 2. No bowel obstruction or ileus. Electronically authenticated by: SHAWN GRAFF Date: 06/20/2023 12:13
[2023-06-20] MEDS: 0.9 % SODIUM CHLORIDE 1,000 ML 999 ML IV (11:12)
[2023-06-20 11:25] LABS: Basophils Percent Auto 0.4 % (0.2-2.0); Eosinophils Absolute Auto 0.1 10^3/uL (0.0-0.7); Eosinophils Percent Auto 0.9 % (0.9-7.0); Hematocrit 53.7 % (36.0-48.0); Hemoglobin 18.3 g/dL (12.0-16.0); Immature Granulocytes Abs Auto 0.06 10^3/uL (0.00-0.03); Immature Granulocytes Pct Auto 0.6 % (0.0-0.5); Lymphocytes Absolute Auto 2.4 10^3/uL (1.2-3.8); Lymphocytes Percent Auto 22.7 % (20.5-60.0); Mean Corpuscular HGB Conc 34.1 g/dL (29.9-35.2); Mean Corpuscular Hemoglobin 31.6 pg (26.7-34.0); Mean Corpuscular Volume 92.6 fL (81.0-99.0); Mean Platelet Volume 9.5 fL (9.5-13.5); Monocytes Absolute Auto 0.7 10^3/uL (0.3-0.8); Neutrophils Absolute Auto 7.2 10^3/uL (1.4-6.5); Neutrophils Percent Auto 68.4 % (43.0-75.0); Platelet Count 332 10^3/uL (150-450); Red Cell Distribution Width 12.5 % (11.0-15.0); White Blood Count 10.6 10^3/uL (4.0-11.0)
[2023-06-20 11:36] VITALS: BP 194/97
[2023-06-20 11:39] LABS: Alanine Aminotransferase 21 U/L (14-59); Albumin Globulin Ratio 0.9; Albumin Level 4.3 g/dL (3.4-5.0); Alkaline Phosphatase 98 U/L (46-116); Anion Gap 16.9; Aspartate Amino Transferase 12 U/L (15-37); BUN Creatinine Ratio 19.6; Bilirubin Total 0.7 mg/dL (0.2-1.0); Calcium 10.8 mg/dL (8.5-10.1); Carbon Dioxide 25.5 mmol/L (21.0-32.0); Chloride 94 mmol/L (98-107); Estimated GFR (African America 59 (>=60); Estimated GFR (Non-African Ame 49 (>=60); Globulin 4.7 g/dL; Glucose 161 mg/dL (74-106); Potassium 4.4 mmol/L (3.5-5.1); Sodium 132 mmol/L (136-145); Troponin I High Sensitivity 8.9 pg/mL (4.0-51.3)
== END 2023-06-20 14:20 | disposition home or self-care (01) ==
PROVIDERS: Emergency Provider Emergency Medicine Emergency Medical Services; PCP Family Medicine
DX: K59.00 Constipation, unspecified (principal); R10.9 Unspecified abdominal pain; Z79.899 Other long term (current) drug therapy; Z79.84 Long term (current) use of oral hypoglycemic drugs; F17.200 Nicotine dependence, unspecified, uncomplicated; Z79.85 Long-term (current) use of injectable non-insulin antidiabetic drugs; Z79.01 Long term (current) use of anticoagulants
CPT/HCPCS: 36415; 74022; 80053; 84484; 85025; 99284

== ENCOUNTER 2023-09-26 08:40 | Emergency (ER) | payer OTHER, SELFPAY ==
[2023-09-26 08:43] VITALS: BP 167/86; PULSE 91; TEMP 36.8; O2SAT 98; BMI 29.1
--- NOTE | 2023-09-26 08:49 | CT_ITS ---
The [address] [address] Patient Name: PAULY QUEZADA MRN: [id number] date: 1960 Sex: F Assigned Patient Location: ER Current Patient Location: ED.MAIN Accession/Order Number: [id number] Exam Date: 09/26/2023 08:56 Report Date: 09/26/2023 09:11 At the request of: DARIN IBARRA Procedure: CT stroke head/brain wo con HEAD CT WITHOUT CONTRAST: 09/26/2023 8:56 AM EDT Clinical Data: Right-sided weakness Comparison: No previous Unenhanced axial data from base to vertex. INTRA-AXIAL: No acute hemorrhage. No acute infarction is evident. EXTRA-AXIAL: No acute hemorrhage. No focal fluid collection. BRAIN VOLUME: Modest high frontal atrophy VENTRICLES: No hydrocephalus PARANASAL SINUSES: No air-fluid levels in the included aspects. MASTOIDS: Clear. CALVARIUM: No acute finding. EXTRACALVARIAL: No acute findings CT/CT stroke head/brain wo con IMPRESSION: 1. No evidence of acute intracranial process on this unenhanced study as described. All CT scans at this facility use dose modulation, iterative reconstruction, and/or weight based dosing when appropriate to reduce radiation dose to as low as reasonably achievable. Electronically authenticated by: DUKE WALLER Date: 09/26/2023 09:11
--- NOTE | 2023-09-26 08:55 | ED.NEUROSD1 ---
HPI - Neuro Symptoms/Deficit General Chief Complaint: Neuro Symptoms/Deficit Stated Complaint: STROKE LIKE SYMPTOMS Time Seen by Provider: 09/26/23 08:48 Source: patient Mode of arrival: Wheelchair History of Present Illness HPI Narrative: Patient here complaining of weakness of her right leg and clumsiness with the right hand. Symptoms started yesterday. She said her initial symptom is that she was having trouble writing she has very good penmanship. She noticed this yesterday and it really has not gotten any better. She also noticed some heaviness and weakness of her leg yesterday and that also persist today as well. She has not had a severe headache. She did not have diplopia dysarthria or dysphagia. She did not notice any slurring of her speech. She has no visual field loss. She is on blood thinners. She had four-vessel bypass surgery and also repair of her ventricle done at the [facility] approximately 8 months ago. She denies any valvular heart disease or repair at that time. She does have a local primary care doctor. She was able to drive herself here to the hospital with no assistance. She was seen immediately upon arrival and CT scan order was done. Prior to the CT scan I did examine her and conducted neurological examination as noted below. This patient's symptoms for started at 2:00 yesterday afternoon when she noticed her handwriting was not proper Related Data Home Medications ?Medication ?Instructions ?Recorded ?Confirmed albuterol sulfate 90 mcg/actuation 2 puff inhalation Q6H PRN 03/31/23 09/26/23 aerosol inhaler (Ventolin HFA) shortness of breath or wheezing carvedilol 25 mg tablet 25 mg PO Q12H 03/31/23 09/26/23 clopidogrel 75 mg tablet 75 mg PO DAILY 03/31/23 09/26/23 dulaglutide 0.75 mg/0.5 mL 0.75 mg subcut .weekly 03/31/23 09/26/23 subcutaneous pen injector (Trulicity) empagliflozin 10 mg tablet 10 mg PO DAILY 03/31/23 09/26/23 (Jardiance) ezetimibe 10 mg tablet 10 mg PO DAILY 03/31/23 09/26/23 lisinopril 20 mg tablet 20 mg PO DAILY 03/31/23 09/26/23 metformin 1,000 mg tablet 1,000 mg PO BID 03/31/23 09/26/23 varenicline 1 mg tablet 1 mg PO BID 03/31/23 09/26/23 venlafaxine 75 mg capsule,extended 75 mg PO DAILY 03/31/23 09/26/23 release 24 hr pantoprazole 40 mg tablet,delayed 40 mg PO DAILY 06/20/23 09/26/23 release Previous Rx's ?Medication ?Instructions ?Recorded ondansetron 4 mg disintegrating 4 mg PO Q6H PRN nausea and 03/31/23 tablet vomiting #20 tabs Allergies Allergy/AdvReac Type Severity Reaction Status Date / Time Tetracyclic Antidepressants AdvReac Severe Vomiting Verified 03/03/23 11:00 PFS PFS Social History Smoking status: Current every day smoker Exam Narrative Exam Narrative: Patient's awake alert good historian denies any acute pain syndromes or shortness of breath or chest discomfort. NIH stroke score was 3 on arrival here. She had 2 points with abnormal [id number] on both her left and her right side. When I repeated the exam, after her CT, she had normal jhzjli-ff-mviu and an NIH score of 1. Overall her skin integument are normal with no petechiae purpura rash or exanthem Heart sounds are normal with no S3-S4 or murmur. She is in a sinus rhythm on her EKG. She denies any abdominal pain. Mental status and cognition are normal. She has no back or pelvic pain. She has no overt days. Constitutional Vital Signs, click to edit/add: Last Vital Signs Temp 98.2 F 09/26/23 08:43 Pulse 91 H 09/26/23 08:43 Resp 18 09/26/23 08:43 BP 167/86 H 09/26/23 08:43 Pulse Ox 98 09/26/23 08:43 O2 Del Method Room Air 09/26/23 08:43 Course Vital Signs Vital signs: Vital Signs Temperature 98.2 F 09/26/23 08:43 Pulse Rate 91 H 09/26/23 08:43 Respiratory Rate 18 09/26/23 08:43 Blood Pressure 167/86 H 09/26/23 08:43 Pulse Oximetry 98 09/26/23 08:43 Oxygen Delivery Method Room Air 09/26/23 08:43 Temperature 98.2 F 09/26/23 08:43 Pulse Rate 91 H 09/26/23 08:43 Respiratory Rate 18 09/26/23 08:43 Blood Pressure 167/86 H 09/26/23 08:43 Pulse Oximetry 98 09/26/23 08:43 Oxygen Delivery Method Room Air 09/26/23 08:43 MDM - Neuro Symptoms/Deficit MDM Narrative Medical decision making narrative: Patient had onset of symptoms approximately 20 hours ago. Her handwriting is still quite abnormal using her right dominant hand. Otherwise her NIH stroke score is 1. I spoke with the teleneurology people in [place] and they felt that she can be worked up at this institution. I then spoke with her primary care doctor. For clarity she does admit to taking aspirin on a daily basis. She is also on Plavix. She did not mention that recently she had been taking Plavix and Eliquis but after her surgery they just put her on Plavix and aspirin. Lab Data Labs: Lab Results 09/26/23 Range/Units 09:10 WBC 6.2 (4.0-11.0) 10^3/uL RBC 4.98 (4.20-5.40) 10^6/uL Hgb 14.1 (12.0-16.0) g/dL Hct 44.3 (36.0-48.0) % MCV 89.0 (81.0-99.0) fL MCH 28.3 (26.7-34.0) pg MCHC 31.8 (29.9-35.2) g/dL RDW 12.3 (11.0-15.0) % Plt Count 317 (150-450) 10^3/uL MPV 9.6 (9.5-13.5) fL Neut % (Auto) 52.8 (43.0-75.0) % Lymph % (Auto) 36.5 (20.5-60.0) % [place] % (Auto) 8.3 (1.7-12.0) % Eos % (Auto) 1.9 (0.9-7.0) % Baso % (Auto) 0.3 (0.2-2.0) % Neut # (Auto) 3.3 (1.4-6.5) 10^3/uL Lymph # (Auto) 2.3 (1.2-3.8) 10^3/uL [place] # (Auto) 0.5 (0.3-0.8) 10^3/uL Eos # (Auto) 0.1 (0.0-0.7) 10^3/uL Baso # (Auto) 0.0 (0.0-0.1) 10^3/uL Abs Immat Gran (auto) 0.01 (0.00-0.03) 10^3/uL Imm/Tot Granulo (auto) 0.2 (0.0-0.5) % PT 10.3 (9.0-11.6) sec INR 0.97 Sodium 134 L (136-145) mmol/L Potassium 4.2 (3.5-5.1) mmol/L Chloride 99 (98-107) mmol/L Carbon Dioxide 21.9 (21.0-32.0) mmol/L Anion Gap 17.3 BUN 14.0 (7.0-18.0) mg/dL Creatinine 0.84 (0.55-1.02) mg/dL Est GFR ( Amer) >60 (>=60) Est GFR (Non-Af Amer) >60 (>=60) BUN/Creatinine Ratio 16.7 Glucose 113 H (74-106) mg/dL Calcium 9.3 (8.5-10.1) mg/dL Troponin I High Sens 11.1 (4.0-51.3) pg/mL Discharge Plan Discharge Chief Complaint: Neuro Symptoms/Deficit Clinical Impression: Acute CVA (cerebrovascular accident) Patient Disposition: Admitted as Observation Time of Disposition Decision: 11:24 Prescriptions / Home Meds: No Action Trulicity 0.75 mg/0.5 mL pen injector 0.75 mg SUBCUT .weekly ezetimibe 10 mg tablet 10 mg PO DAILY lisinopril 20 mg tablet 20 mg PO DAILY varenicline 1 mg tablet 1 mg PO BID venlafaxine 75 mg capsule,extended release 24hr 75 mg PO DAILY metformin 1,000 mg tablet 1,000 mg PO BID Jardiance 10 mg tablet 10 mg PO DAILY clopidogrel 75 mg tablet 75 mg PO DAILY carvedilol 25 mg tablet 25 mg PO Q12H albuterol sulfate [Ventolin HFA] 90 mcg/actuation HFA aerosol inhaler 2 puff INHALATION Q6H PRN (Reason: shortness of breath or wheezing) ondansetron 4 mg tablet,disintegrating 4 mg PO Q6H PRN (Reason: nausea and vomiting) Qty: 20 0RF pantoprazole 40 mg tablet,delayed release (DR/EC) 40 mg PO DAILY Print Language: [place] Referrals: Froylan Muhammad MD [Primary Care Provider] - 1 week
[2023-09-26 09:18] LABS: Basophils Percent Auto 0.3 % (0.2-2.0); Eosinophils Absolute Auto 0.1 10^3/uL (0.0-0.7); Eosinophils Percent Auto 1.9 % (0.9-7.0); Hematocrit 44.3 % (36.0-48.0); Hemoglobin 14.1 g/dL (12.0-16.0); Immature Granulocytes Abs Auto 0.01 10^3/uL (0.00-0.03); Immature Granulocytes Pct Auto 0.2 % (0.0-0.5); Lymphocytes Absolute Auto 2.3 10^3/uL (1.2-3.8); Lymphocytes Percent Auto 36.5 % (20.5-60.0); Mean Corpuscular HGB Conc 31.8 g/dL (29.9-35.2); Mean Corpuscular Hemoglobin 28.3 pg (26.7-34.0); Mean Platelet Volume 9.6 fL (9.5-13.5); Monocytes Absolute Auto 0.5 10^3/uL (0.3-0.8); Monocytes Percent Auto 8.3 % (1.7-12.0); Neutrophils Absolute Auto 3.3 10^3/uL (1.4-6.5); Neutrophils Percent Auto 52.8 % (43.0-75.0); Platelet Count 317 10^3/uL (150-450); Red Blood Count 4.98 10^6/uL (4.20-5.40); Red Cell Distribution Width 12.3 % (11.0-15.0); White Blood Count 6.2 10^3/uL (4.0-11.0)
[2023-09-26 09:35] LABS: INR 0.97; Prothrombin Time 10.3 sec (9.0-11.6)
--- NOTE | 2023-09-26 09:36 | CT_ITS ---
[address] [address] Patient Name: PAULY QUEZADA MRN: [id number] date: 1960 Sex: F Assigned Patient Location: ER Current Patient Location: .[facility] Accession/Order Number: [id number] Exam Date: 09/26/2023 10:17 Report Date: 09/26/2023 11:34 At the request of: DARIN IBARRA Procedure: CT angio neck EXAMINATION: CT angio head, CT angio neck HISTORY: Right-sided weakness COMPARISON: CT head 03/03/2023, ultrasound carotid duplex bilateral 02/07/2023, CT chest 05/11/2022 TECHNIQUE: Axial, Coronal, and Sagittal CT images with IV contrast. Multi-planar/3-D imaging to optimize visualization of vascular anatomy. Percent stenosis is based on NASCET criteria. Dose reduction techniques were achieved by using automated exposure control and/or adjustment of mA and/or kV according to patient size and/or use of iterative reconstruction technique. FINDINGS: HEAD: VASCULATURE: No significant stenosis. No visible aneurysm or vascular malformation. VENTRICLES: No enlargement or displacement. CEREBRUM: No excessive atrophy, mass, or hemorrhage, or abnormal enhancement. CEREBELLUM: No excessive atrophy, mass, or hemorrhage, or abnormal enhancement. BRAINSTEM: No excessive atrophy, mass, or hemorrhage, or abnormal enhancement. BASAL CISTERNS: No subarachnoid hemorrhage or effacement. SKULL: Negative. NECK: RIGHT INTERNAL CAROTID: Mild to moderate atherosclerotic narrowing of the bulb/proximal ICA. EXTERNAL CAROTID: No hemodynamically significant stenosis or dissection. COMMON CAROTID: No hemodynamically significant stenosis or dissection. VERTEBRAL: No hemodynamically significant stenosis or dissection. LEFT INTERNAL CAROTID: Mild/moderate atherosclerotic narrowing of the bulb/proximal ICA. EXTERNAL CAROTID: No hemodynamically significant stenosis or dissection. COMMON CAROTID: No hemodynamically significant stenosis or dissection. VERTEBRAL: No hemodynamically significant stenosis or dissection. OTHER: Chronic, nonspecific irregular opacity within right lung apex, not appreciably changed compared to 05/11/2022. Slightly prominent heterogeneous thyroid gland. CT/CT angio neck IMPRESSION: 1. No intracranial hemorrhage or acute findings to account for patient's symptoms. 2. Normal CT angiography of the brain. 3. Mild to moderate atherosclerotic narrowing of the carotid bulb/proximal ICA bilaterally. Electronically authenticated by: SHAWN GRAFF Date: 09/26/2023 11:34
--- NOTE | 2023-09-26 09:37 | CT_ITS ---
[address] [address] Patient Name: PAULY QUEZADA MRN: [id number] date: 1960 Sex: F Assigned Patient Location: ER Current Patient Location: .[facility] Accession/Order Number: [id number] Exam Date: 09/26/2023 10:17 Report Date: 09/26/2023 11:34 At the request of: DARIN IBARRA Procedure: CT angio head EXAMINATION: CT angio head, CT angio neck HISTORY: Right-sided weakness COMPARISON: CT head 03/03/2023, ultrasound carotid duplex bilateral 02/07/2023, CT chest 05/11/2022 TECHNIQUE: Axial, Coronal, and Sagittal CT images with IV contrast. Multi-planar/3-D imaging to optimize visualization of vascular anatomy. Percent stenosis is based on NASCET criteria. Dose reduction techniques were achieved by using automated exposure control and/or adjustment of mA and/or kV according to patient size and/or use of iterative reconstruction technique. FINDINGS: HEAD: VASCULATURE: No significant stenosis. No visible aneurysm or vascular malformation. VENTRICLES: No enlargement or displacement. CEREBRUM: No excessive atrophy, mass, or hemorrhage, or abnormal enhancement. CEREBELLUM: No excessive atrophy, mass, or hemorrhage, or abnormal enhancement. BRAINSTEM: No excessive atrophy, mass, or hemorrhage, or abnormal enhancement. BASAL CISTERNS: No subarachnoid hemorrhage or effacement. SKULL: Negative. NECK: RIGHT INTERNAL CAROTID: Mild to moderate atherosclerotic narrowing of the bulb/proximal ICA. EXTERNAL CAROTID: No hemodynamically significant stenosis or dissection. COMMON CAROTID: No hemodynamically significant stenosis or dissection. VERTEBRAL: No hemodynamically significant stenosis or dissection. LEFT INTERNAL CAROTID: Mild/moderate atherosclerotic narrowing of the bulb/proximal ICA. EXTERNAL CAROTID: No hemodynamically significant stenosis or dissection. COMMON CAROTID: No hemodynamically significant stenosis or dissection. VERTEBRAL: No hemodynamically significant stenosis or dissection. OTHER: Chronic, nonspecific irregular opacity within right lung apex, not appreciably changed compared to 05/11/2022. Slightly prominent heterogeneous thyroid gland. CT/CT angio head IMPRESSION: 1. No intracranial hemorrhage or acute findings to account for patient's symptoms. 2. Normal CT angiography of the brain. 3. Mild to moderate atherosclerotic narrowing of the carotid bulb/proximal ICA bilaterally. Electronically authenticated by: SHAWN GRAFF Date: 09/26/2023 11:34
[2023-09-26 09:41] LABS: Anion Gap 17.3; BUN Creatinine Ratio 16.7; Calcium 9.3 mg/dL (8.5-10.1); Carbon Dioxide 21.9 mmol/L (21.0-32.0); Chloride 99 mmol/L (98-107); Estimated GFR (African America >60 (>=60); Estimated GFR (Non-African Ame >60 (>=60); Glucose 113 mg/dL (74-106); Potassium 4.2 mmol/L (3.5-5.1); Sodium 134 mmol/L (136-145); Troponin I High Sensitivity 11.1 pg/mL (4.0-51.3)
--- NOTE | 2023-09-26 14:43 | ECG_ITS ---
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
== END 2023-09-26 11:40 | disposition left against medical advice (07) ==
PROVIDERS: Emergency Provider Emergency Medicine Emergency Medical Services; PCP Family Medicine
DX: I62.9 Nontraumatic intracranial hemorrhage, unspecified (principal); Z53.29 Procedure and treatment not carried out because of patient's decision for other reasons; Z95.1 Presence of aortocoronary bypass graft; Z79.85 Long-term (current) use of injectable non-insulin antidiabetic drugs; Z79.84 Long term (current) use of oral hypoglycemic drugs; F17.200 Nicotine dependence, unspecified, uncomplicated; Z79.02 Long term (current) use of antithrombotics/antiplatelets
CPT/HCPCS: 36415; 70450; 70496; 70498; 80048; 84484; 85025; 85610; 93005; 99285; Q9967

== ENCOUNTER 2023-09-26 15:16 | Observation (INO) | payer OTHER, SELFPAY ==
[2023-09-26] VITALS (8 sets, daily range): BP systolic 144–162; BP diastolic 70–106; PULSE 80–90; TEMP 36.6–37; O2SAT 91–97; BMI 29.8
--- NOTE | 2023-09-26 15:22 | ED_ITS ---
HPI HPI - General Adult General Stated complaint: in earlier today-stroke Time Seen by Provider: 09/26/23 15:21 History of Present Illness HPI narrative: This patient was here earlier and was agreeable to admission but she had to take care of some urgent business at home. She has now returned to be worked up for previous neurological deficit. She has not had any worsening of her symptoms or complaint she went home. She will be briefly seen by myself and then admitted directly to the floor. The attending doctor was agreeable to that plan earlier today. Related Data Home Medications ?Medication ?Instructions ?Recorded ?Confirmed albuterol sulfate 90 mcg/actuation 2 puff inhalation Q6H PRN 03/31/23 09/26/23 aerosol inhaler (Ventolin HFA) shortness of breath or wheezing carvedilol 25 mg tablet 25 mg PO Q12H 03/31/23 09/26/23 clopidogrel 75 mg tablet 75 mg PO DAILY 03/31/23 09/26/23 dulaglutide 0.75 mg/0.5 mL 0.75 mg subcut .weekly 03/31/23 09/26/23 subcutaneous pen injector (Trulicity) empagliflozin 10 mg tablet 10 mg PO DAILY 03/31/23 09/26/23 (Jardiance) ezetimibe 10 mg tablet 10 mg PO DAILY 03/31/23 09/26/23 lisinopril 20 mg tablet 20 mg PO DAILY 03/31/23 09/26/23 metformin 1,000 mg tablet 1,000 mg PO BID 03/31/23 09/26/23 venlafaxine 75 mg capsule,extended 75 mg PO DAILY 03/31/23 09/26/23 release 24 hr metoprolol succinate 50 mg 25 mg PO BID 09/26/23 09/26/23 tablet,extended release 24 hr Previous Rx's ?Medication ?Instructions ?Recorded ondansetron 4 mg disintegrating 4 mg PO Q6H PRN nausea and 03/31/23 tablet vomiting #20 tabs Allergies Allergy/AdvReac Type Severity Reaction Status Date / Time Tetracyclic Antidepressants AdvReac Severe Vomiting Verified 03/03/23 11:00 Opioid HPI Opioid Management Most Recent Opioid Data: No Data to Display PFSH PFSH Social History Smoking status: Current every day smoker Discharge Plan Discharge Clinical Impression: Stroke Patient Disposition: Admitted as Observation Time of Disposition Decision: 15:23 Prescriptions / Home Meds: No Action Trulicity 0.75 mg/0.5 mL pen injector 0.75 mg SUBCUT .weekly ezetimibe 10 mg tablet 10 mg PO DAILY lisinopril 20 mg tablet 20 mg PO DAILY venlafaxine 75 mg capsule,extended release 24hr 75 mg PO DAILY metformin 1,000 mg tablet 1,000 mg PO BID Jardiance 10 mg tablet 10 mg PO DAILY clopidogrel 75 mg tablet 75 mg PO DAILY carvedilol 25 mg tablet 25 mg PO Q12H albuterol sulfate [Ventolin HFA] 90 mcg/actuation HFA aerosol inhaler 2 puff INHALATION Q6H PRN (Reason: shortness of breath or wheezing) ondansetron 4 mg tablet,disintegrating 4 mg PO Q6H PRN (Reason: nausea and vomiting) Qty: 20 0RF metoprolol succinate 50 mg tablet extended release 24 hr 25 mg PO BID Print Language: [place] Citizen Referrals: Froylan Muhammad MD [Primary Care Provider] - 1 week
--- NOTE | 2023-09-26 17:30 | CA_ITS ---
Patient Name: PAULY QUEZADA MR#: [id number] : 1960 Exam Date: 09/27/2023 Ordering Doctor: DR NANO NGUYEN . ECHOCARDIOGRAM REPORT PROCEDURE: CA ECHO DOPPLER COMPLETE INDICATIONS: Dyspnea, CABGx4, hypertension, diabetes COMPARISON: None. DESCRIPTION: COMPLETE ECHOCARDIOGRAM Real-time transthoracic echocardiography with 2D, M-mode, spectral and color flow Doppler performed. QUALITY: Technical quality was good. 65 , 178#, BSA 1.88 m2, BP 149/85 LEFT VENTRICLE: Normal chamber size. Mild concentric left ventricular hypertrophy. There is hypokinesis of the basal and mid inferior wall. Global systolic function is at the lower limits of normal. LV EF: Lower limits of normal left ventricular ejection fraction, (50-55%). DIASTOLIC: Grade I diastolic dysfunction. ATRIAL SEPTUM: LEFT ATRIUM: Normal chamber size. RIGHT ATRIUM: Normal chamber size. RIGHT VENTRICLE: Normal chamber size. Normal right ventricular systolic function. TRICUSPID VALVE: Normal mobility and thickness. No stenosis with no regurgitation. Unable to assess right-sided pressures due to lack of measurable tricuspid regurgitation. MITRAL VALVE: Normal mobility and thickness. No evidence of mitral valve stenosis. Mild mitral annular calcification. Trivial mitral regurgitation. AORTIC VALVE: Normal trileaflet appearance. No visible sclerosis. Normal leaflet mobility. No evidence of aortic valve stenosis. No aortic regurgitation. AORTIC ROOT: Normal diameter and appearance. PULMONIC VALVE: Not well visualized. No stenosis. No regurgitation. PERICARDIUM: IVC: Collapses with inspirations. IVC is normal in size. PLEURA: CONCLUSION: 1. The left ventricle is normal in size and exhibits mild concentric hypertrophy. There is hypokinesis of the basal and mid inferior wall. Global systolic function is at the lower limits of normal. LVEF is 50 to 55%. 2. Normal right ventricular size and systolic function. 3. Mild diastolic dysfunction. 4. No significant valvular dysfunction. 5. No pericardial effusion. Adult Echocardiography Procedure Report Left Ventricle LVEDD (3.7 - 5.6 cm): 4.87 cm LVESD (2.2 - 4.0 cm): 3.44 cm LVIVS thickness (0.6 - 1.2 cm): 1.17 cm LVPW thickness (0.5 - 1.0 cm): 1.22 cm e': 0.07 m/s E - e': 7.42 LVOT Max Gradient: 1.57 mm[Hg] LVOT Area (cm2): 0.63 m/s Peak Velocity (LVOT): 0.63 m/s Mean Velocity (LVOT): 0.43 m/s LVOT Diameter 1.99 cm Left Atrium LA Volume Index (2D A2C): 27.35 ml/m2 Left Atrium Systolic Dimension: 3.75 cm Mitral Valve MV E to A Ratio: 0.67 Mitral Valve A-Wave Peak Velocity: 0.82 m/s Mitral Valve E-Wave Peak Velocity: 0.55 m/s Right Ventricle Aorta AO Root Diam: 3.51 cm Ascending Ao Diam: 3.66 cm Aortic Valve AoV Area (Peak Osvaldo): 1.54 cm2, 1.54 cm2 AoV Area (VTI): 1.82 cm2, 1.82 cm2 Peak Velocity(Antegrade Flow): 1.27 m/s Peak Gradient(Antegrade Flow): 6.42 mm[Hg] Mean Velocity(Antegrade Flow): 0.90 m/s Mean Gradient(Antegrade Flow): 3.71 mm[Hg] Velocity Time Integral: 26.98 cm Tricuspid Valve Pulmonic Valve Peak Velocity: 0.66 m/s Peak Gradient: 1.16 mm[Hg], 2.49 mm[Hg] Right Atrium Dictated by: Girish Bains M.D. on 09/27/2023 at 16:31 Approved by: Girish Bains M.D. on 09/27/2023 at 16:35
--- NOTE | 2023-09-26 18:33 | P.HP_ITS ---
HPI H&P: HPI History of Present Illness Chief complaint: in earlier today-stroke, Stroke Narrative: Patient presented to emergency with having difficulty signing her name. Patient was found to have significant right-sided weakness. Initial workup in ER with CTA of brain was unremarkable. Consultation with telestroke they felt patient was stable for remaining here and continue with workup for stroke here. Patient already takes Plavix for coronary artery disease. I saw patient up on the medical surgical floor, she is resting comfortably, she still feels discoordinated with her right hand, but she feels her strength is baseline. Opioid HPI Opioid Management Most Recent Opioid Data: Last Pain Assessment 09/26/23 18:11 Last ORT Total Score 1 09/26/23 17:09 Last ORT Risk Category Low Risk 09/26/23 17:09 PFSH PFSH Medical History (Updated 09/26/23 @ 17:19 by Cindy Mejia) Blood clot in leg Retinopathy ?H35.00 - Unspecified background retinopathy (ICD-10) Hypertension ?I10 - Essential (primary) hypertension (ICD-10) Hyperlipidemia ?E78.5 - Hyperlipidemia, unspecified (ICD-10) Diabetes ?E11.9 - Type 2 diabetes mellitus without complications (ICD-10) Surgical History (Updated 09/26/23 @ 16:55 by Cindy Mejia) H/O tubal ligation ?Z98.51 - Tubal ligation status (ICD-10) Hx of adenoidectomy ?Z90.89 - Acquired absence of other organs (ICD-10) Hx of tonsillectomy ?Z90.89 - Acquired absence of other organs (ICD-10) Carpal tunnel syndrome, bilateral ?G56.03 - Carpal tunnel syndrome, bilateral upper limbs (ICD-10) History of quadruple bypass ?Z95.1 - Presence of aortocoronary bypass graft (ICD-10) Family History (Updated 09/26/23 @ 16:57 by Cindy Mejia) Brother Family history of cancer Grandmother Family history of diabetes mellitus Father Family history of diabetes mellitus Family history of hypertension Family history of myocardial infarction Mother Family history of hypertension Family history of myocardial infarction Social History (Updated 09/26/23 @ 17:01 by Cindy Mejia) Within the past year, how often did you have a drink containing alcohol: 2-3 times a week Within the past year, how many standard drinks containing alcohol did you have on a typical day: 1 or 2 Within the past year, how often did you have six or more drinks on one occasion: never Total score: 0 Score interpretation: Questions 2 and 3 are 0. It can be assumed that the patient's drinking is below the recommended limits. However, please confirm the accuracy of the patient's alcohol intake over the last few months. Smoking status: Current every day smoker Non-prescribed substance use: cannabis (any form) Previous occupational history: retired Highest level of school completed/degree received: some college, no degree Are you now , , , , never or living with a partner: never In a typical week, how many times do you talk on the telephone with family, friends, or neighbors: 3 or more times per week How often do you get together with friends or relatives: 3 or more times per week How often do you attend methodist or hinduism services: 4 or more times per year Do you belong to any clubs or organizations such as methodist groups unions, [employer] or athletic groups, or school groups: no Total score: 2 Score interpretation: A score of greater than or equal to 2 indicates the lowest level of social isolation. Little interest or pleasure in doing things: not at all Feeling down, depressed, or hopeless: several days Feel stressed/tense/nervous/anxious/difficulty sleeping: only a little Meds Home Medications and Allergies Home Medications ?Medication ?Instructions ?Recorded ?Confirmed ?Type albuterol sulfate 90 mcg/actuation 2 puff inhalation Q6H PRN 03/31/23 09/26/23 History aerosol inhaler (Ventolin HFA) shortness of breath or wheezing clopidogrel 75 mg tablet 75 mg PO DAILY 03/31/23 09/26/23 History dulaglutide 0.75 mg/0.5 mL 0.75 mg subcut .weekly 03/31/23 09/26/23 History subcutaneous pen injector (Trulicity) empagliflozin 10 mg tablet 10 mg PO DAILY 03/31/23 09/26/23 History (Jardiance) ezetimibe 10 mg tablet 10 mg PO DAILY 03/31/23 09/26/23 History metformin 1,000 mg tablet 1,000 mg PO BID 03/31/23 09/26/23 History ondansetron 4 mg disintegrating 4 mg PO Q6H PRN nausea and 03/31/23 09/26/23 Rx tablet vomiting #20 tabs venlafaxine 75 mg capsule,extended 75 mg PO DAILY 03/31/23 09/26/23 History release 24 hr aspirin 81 mg chewable tablet 1 tab PO DAILY 09/26/23 09/26/23 History calcium carbonate 500 mg calcium 500 mg PO DAILY 09/26/23 09/26/23 History (1,250 mg) chewable tablet docusate sodium 100 mg capsule 100 mg PO BID 09/26/23 09/26/23 History metoprolol succinate 50 mg 25 mg PO BID 09/26/23 09/26/23 History tablet,extended release 24 hr Allergies Allergy/AdvReac Type Severity Reaction Status Date / Time Tetracyclic Antidepressants AdvReac Severe Vomiting Verified 03/03/23 11:00 Exam Constitutional Vital Signs, click to edit/add: Last Vital Signs Temp 98.6 F 09/26/23 17:09 Pulse 83 09/26/23 17:09 Resp 16 09/26/23 17:09 BP 144/87 H 09/26/23 17:09 Pulse Ox 96 09/26/23 17:09 O2 Del Method Room Air 09/26/23 17:09 Documenting provider has reviewed patient's vital signs: yes Common normals: no apparent distress Chest Common normals: inspection of chest normal Respiratory Common normals: normal respiratory effort (Somewhat shallow inspiratory effort) and no retractions Cardio Common normals: regular rate and regular rhythm GI Common normals: Normal to inspection, nondistended, normoactive bowel sounds present Neuro Common normals: oriented x3, CN's II-XII intact bilaterally and moves all extremities (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 Most is noticed discoordination. Her strength appears to be improving throughout the stay but her discoordination with the right hand persisting. CTA and consultation with telestroke did not feel anything significant acute. Patient admitted for further workup. Echocardiogram and MRI scan of brain in a.m., added full-strength aspirin to her Plavix Hypertension-uncontrolled, continue with home medication plus as needed h ydralazine Hypercholesterolemia-continue with home medications Diabetes mellitus-insulin sliding scale Admission statement: With no significant findings on initial CT scan, patient placed on aspirin, unless telestroke team has any further workup she will likely have MRI scan and echocardiogram in AM. 7 no progression of symptoms she will be discharged home tomorrow. Maintain observation status.
[2023-09-26] MEDS: ALBUTEROL SULFATE 200 PUFF/6.7 GM INHALER IH (20:22)
[2023-09-26 20:23] LABS: Glucometer 162 mg/dL (74-106)
[2023-09-26] MEDS: METOPROLOL SUCCINATE 50 MG TAB.ER.24H 25 MG PO (20:35)
[2023-09-26] MEDS: LACTOSE -REDUCED (ENSURE ORIGINAL 237 ML LIQUID) PO (20:35)
[2023-09-26] MEDS: DOCUSATE SODIUM 100 MG CAPSULE PO (20:35)
[2023-09-27] VITALS (11 sets, daily range): BP systolic 149–164; BP diastolic 85–98; PULSE 72–92; TEMP 36.4–36.5; O2SAT 91–96
--- NOTE | 2023-09-27 06:00 | MR_ITS ---
The [address] [address] Patient Name: PAULY QUEZADA MRN: [id number] date: 1960 Sex: F Assigned Patient Location: [place] Current Patient Location: [place] Accession/Order Number: [id number] Exam Date: 09/27/2023 06:15 Report Date: 09/27/2023 11:23 At the request of: NANO NGUYEN Procedure: MR head/brain wo con MRI brain without contrast, 09/27/2023. HISTORY: Acute onset of right arm and leg weakness. COMPARISON: CT head without contrast, 09/26/2023. TECHNIQUE: Multiplanar, multisequence MRI imaging of the brain without contrast. FINDINGS: Paranasal sinuses are clear. Mastoid air cells are clear. Nasopharynx is normal. Prior cataract surgery. Ventricles are normal in size. No hydrocephalus. No mass effect. No shift of midline. Mild chronic microvascular ischemic changes in the cerebral white matter. There is a focus of hyperintense signal along the left thalamus and posterior limb of the internal capsule that also demonstrates diffusion restriction and measures approximately 8 mm. No other diffusion signal abnormality. T2 gradient images show no hemorrhagic lesions. No masses. MR/MR head/brain wo con IMPRESSION: 1. Abnormal signal and diffusion restriction involving the left thalamus and posterior limb of the internal capsule measuring 8 mm consistent with acute to subacute lacunar infarction. No mass effect or hemorrhage. 2. Mild chronic microvascular ischemic changes. 3. No masses. Electronically authenticated by: PREETI SMITH Date: 09/27/2023 11:23
[2023-09-27 07:35] LABS: Glucometer 165 mg/dL (74-106)
[2023-09-27] MEDS: LACTOSE -REDUCED (ENSURE ORIGINAL 237 ML LIQUID) PO (08:52)
[2023-09-27] MEDS: CANAGLIFLOZIN 100 MG TABLET PO (08:53)
[2023-09-27] MEDS: METOPROLOL SUCCINATE 50 MG TAB.ER.24H 25 MG PO (08:53)
[2023-09-27] MEDS: VENLAFAXINE HCL ER 75 MG CAPSULE PO (08:53)
[2023-09-27] MEDS: CLOPIDOGREL BISULFATE 75 MG TABLET PO (08:53)
[2023-09-27] MEDS: ASPIRIN 81 MG TAB.CHEW PO (08:53)
[2023-09-27] MEDS: LISINOPRIL 20 MG TABLET PO (08:53)
[2023-09-27] MEDS: NICOTINE 21 MG PATCH.TD24 TD (08:53)
[2023-09-27] MEDS: DOCUSATE SODIUM 100 MG CAPSULE PO (08:53)
[2023-09-27] MEDS: EZETIMIBE 10 MG TABLET PO (08:53)
[2023-09-27] MEDS: CALCIUM CARBONATE 500 MG (200MG ELEMENTAL) TAB CHEW PO (08:53)
--- NOTE | 2023-09-27 08:56 | CM.NOTE ---
Rounds made with Dr. Muhammad. Potential discharge after works with [facility] Follow up with PCP next week.
--- NOTE | 2023-09-27 09:46 | P.DS_ITS ---
DS: Providers Provider Date of admission: 09/26/23 16:41 Primary care physician: Froylan Muhammad MD Consults: 09/26/23 17:27 Consult to Telestroke Routine Reason for consultation: Follow up from ER Has provider been notified: No Occupational Therapy Eval and Treat Routine Reason for consultation: Only if needed for Rehab Has provider been notified: No Physical Therapy Eval and Treat Routine Reason for consultation: Eval and Treat Has provider been notified: No DS: Diagnosis Discharge Diagnosis (1) Abdominal pain: (2) Nausea & vomiting: Plan Patient presented to the emergency room with right-sided weakness. Most is noticed discoordination. Her strength appears to be improving throughout the stay but her discoordination with the right hand persisting. CTA and consultation with telestroke did not feel anything significant acute. Patient admitted for further workup. Echocardiogram and MRI scan of brain in a.m., added full-strength aspirin to her Plavix Hypertension-uncontrolled, continue with home medication plus as needed hydralazine Hypercholesterolemia-continue with home medications Diabetes mellitus-insulin sliding scale Admission statement: With no significant findings on initial CT scan, patient placed on aspirin, unless telestroke team has any further workup she will likely have MRI scan and echocardiogram in AM. 7 no progression of symptoms she will be discharged home tomorrow. Maintain observation status. ? DS: Summary Hospital Course Hospital Course: Patient presented to the emergency room with a couple day history of difficulty signing her name. In ER workup was unremarkable. Blood pressure was up a little bit in the emergency room. No other findings on CT scanning. Case was discussed with telestroke, they were comfortable patient remaining here as she is outside the window for any acute or aggressive treatment. They recommended placing her on aspirin. She is already taking a baby aspirin and Plavix. We increased her flow to a full-strength aspirin. The following morning her weakness had improved somewhat. As well as the coordination. Patient felt stable with being discharged home. The patient was discharged home in improving condition. Medications see list. Follow-up with me in the office next week. Time Spent with Patient Time attestation: Total time spent providing and/or coordinating discharge services: Exam Constitutional Vital Signs, click to edit/add: Last Vital Signs Temp 97.6 F 09/27/23 08:41 Pulse 81 09/27/23 08:41 Resp 18 09/27/23 08:41 BP 149/85 H 09/27/23 08:41 Pulse Ox 96 09/27/23 08:41 O2 Del Method Room Air 09/27/23 08:41 Documenting provider has reviewed patient's vital signs: yes Common normals: no apparent distress Chest Common normals: inspection of chest normal Respiratory Common normals: normal respiratory effort (Somewhat shallow inspiratory effort) and no retractions Cardio Common normals: regular rate and regular rhythm GI Common normals: Normal to inspection, nondistended, normoactive bowel sounds present Neuro Common normals: oriented x3, CN's II-XII intact bilaterally and moves all extremities (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.) DS: Data Data Completed and Pending Labs on day of discharge: Labs from last 24 hours 09/27/23 09/26/23 07:34 20:22 POC Glucose 165 H 162 H Discharge Plan Discharge Disposition: Home, Self-Care Discharge Medications: New lisinopril 20 mg Tablet 20 mg PO QD Qty: 30 11RF aspirin 81 mg Tablet,Chewable 325 mg PO DAILY Qty: 30 11RF Continued Trulicity 0.75 mg/0.5 mL pen injector 0.75 mg SUBCUT .weekly ezetimibe 10 mg tablet 10 mg PO DAILY venlafaxine 75 mg capsule,extended release 24hr 75 mg PO DAILY metformin 1,000 mg tablet 1,000 mg PO BID Jardiance 10 mg tablet 10 mg PO DAILY clopidogrel 75 mg tablet 75 mg PO DAILY albuterol sulfate [Ventolin HFA] 90 mcg/actuation HFA aerosol inhaler 2 puff INHALATION Q6H PRN (Reason: shortness of breath or wheezing) ondansetron 4 mg tablet,disintegrating 4 mg PO Q6H PRN (Reason: nausea and vomiting) Qty: 20 0RF docusate sodium 100 mg capsule 100 mg PO BID calcium carbonate 500 mg calcium (1,250 mg) tablet,chewable 500 mg PO DAILY metoprolol succinate 50 mg tablet extended release 24 hr 25 mg PO BID Discontinued aspirin 81 mg tablet,chewable 1 tab PO DAILY Activity: resume usual activities as tolerated Diet: advance to your usual diet Print Language: Austrian Patient Instructions: Lisinopril (By mouth), Aspirin (By mouth), Ischemic Stroke (DC) Forms: Portal Instructions Follow Up Appointments: October 01 @ 9:[address] Muhammad [phone] Discharge Date/Time: 09/27/23 14:53
--- NOTE | 2023-09-27 11:32 | SWNOTE1 ---
SW met with pt to discuss dc needs. Pt lives at home by herself. She has a neighbor who helps and friends if needed. Pt is independent and voices she has no needs at discharge. SW to follow as needed. Medicare Outpatient Observation Notice reviewed and discussed with patient. Pt. verbalized understanding and signed the form. Original given to patient and copy placed in patient?s chart.
[2023-09-27 11:43] LABS: Glucometer 168 mg/dL (74-106)
--- NOTE | 2023-09-30 15:39 | CM.DCFOLLOWU ---
Person spoke with: Elizabeth How are you feeling? Good but still feel tired How is your pain? No pain Did you understand your discharge instructions? Yes Do you have any questions about your discharge instructions? No Were you given any prescriptions at discharge? Yes Were you able to get your prescriptions filled? Yes Do you understand how to take your medications as ordered? Yes Do you have any questions about your follow up appointment and do you plan to keep your follow up appointment? No questions and will go Wed to appt Is there anything else that you would like to discuss? No Questions/Comments/Concerns/Other:
== END 2023-09-27 14:53 | disposition home or self-care (01) ==
LOC: ER 16:23 → MS 17:00
PROVIDERS: Admitting Provider Family Medicine; Emergency Provider Emergency Medicine Emergency Medical Services; PCP Family Medicine; Visit Provider Family Medicine
DX: I63.9 Cerebral infarction, unspecified (principal); R53.1 Weakness; I25.10 Atherosclerotic heart disease of native coronary artery without angina pectoris; I10 Essential (primary) hypertension; E11.9 Type 2 diabetes mellitus without complications; E78.00 Pure hypercholesterolemia, unspecified; F12.90 Cannabis use, unspecified, uncomplicated; F17.210 Nicotine dependence, cigarettes, uncomplicated; Z95.1 Presence of aortocoronary bypass graft; Z79.85 Long-term (current) use of injectable non-insulin antidiabetic drugs; Z79.84 Long term (current) use of oral hypoglycemic drugs; Z79.02 Long term (current) use of antithrombotics/antiplatelets; Z79.899 Other long term (current) drug therapy; Z90.89 Acquired absence of other organs; Z53.29 Procedure and treatment not carried out because of patient's decision for other reasons; Z98.51 Tubal ligation status
CPT/HCPCS: 36415; 70450; 70496; 70498; 70551; 80048; 81001; 82948; 84484; 85025; 85610; 93005; 93306; 94640; 94761; 99285; G0378; Q9967

== ENCOUNTER 2023-11-05 07:37 | Outpatient (RCR) | payer OTHER, MEDICAID, SELFPAY ==
--- NOTE | 2023-11-05 09:54 | CR1_ITS ---
The 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
== END 2023-11-05 09:54 | disposition home or self-care (01) ==
LOC: CR 07:37
PROVIDERS: PCP Family Medicine; Visit Provider Family Medicine
DX: I25.10 Atherosclerotic heart disease of native coronary artery without angina pectoris (principal)
CPT/HCPCS: 93798

== ENCOUNTER 2023-12-19 14:29 | Outpatient (OUT) | payer OTHER, SELFPAY | END 2023-12-19 14:30 | disposition home or self-care (01) | LOC: WC 14:29 | PROVIDERS: PCP Family Medicine; Visit Provider Physician Assistant | DX: L97.418 Non-pressure chronic ulcer of right heel and midfoot with other specified severity (principal) | CPT/HCPCS: G0463 ==

== ENCOUNTER 2024-04-04 11:08 | Emergency (ER) | payer OTHER, SELFPAY ==
[2024-04-04 11:20] VITALS: BP 140/70; PULSE 88; TEMP 36.7; O2SAT 98; BMI 27.8
--- NOTE | 2024-04-04 11:22 | XR_ITS ---
The [place] [id number] Patient Name: PAULY QUEZADA MRN: [id number] date: 1960 Sex: F Assigned Patient Location: ED.MAIN Current Patient Location: ER Accession/Order Number: [id number] Exam Date: 04/04/2024 12:01 Report Date: 04/04/2024 13:57 At the request of: JASON GONZALEZ Procedure: XR hip LT 2V w/ pelvis EXAM: PLAIN FILM OF THE HIP LEFT HISTORY: Hip pain. TECHNIQUE: 2 views of the LEFT hip submitted for review. COMPARISON: None FINDINGS: No acute displaced fracture. Bone mineralization is decreased. Joint spaces demonstrate degenerative change. Soft tissues are edematous XR/XR hip LT 2V w/ pelvis IMPRESSION: Degenerative change of the hip. Electronically authenticated by: JACI CALVO Date: 04/04/2024 13:57
--- OUTSIDE RECORDS SUMMARY | 2024-04-04 11:41 | XMS_ITS | CCD ---
Author Organization [facility] Care Team Providers Care Counselor Aid Name Role Phone Nano Nguyen Primary Care Unavailable Jim Gao II Attending Unav ailable Murray II, Jim Edwards Referring Unav ailable Nano Nguyen Unavailable Unavailable Unavailable ANNA IRBY Consulting Unavailable HOY ., DR MCGILL Primary Care Unavailable ANNA IRBY Attending Unavailable ANNA IRBY Admitting Unavailable HOY ., DR MCGILL Consulting Unavailable HOY ., DR MCGILL Primary Care Unavailable HOY ., DR MCGILL Attending Unavailable HOY ., DR MCGILL Admitting Unavailable Shawn Graff Consulting Unavailable HOY ., DR MCGILL Consulting Unavailable HOY ., DR MCGILL Primary Care Unavailable HOY ., DR MCGILL Attending Unavailable HOY ., DR MCGILL Admitting Unavailable JOE HUBBARD Consulting Unavailable HOY ., DR MCGILL Primary Care Unavailable JOE HUBBARD Attending Unavailable JOE HUBBARD Admitting Unavailable HOY ., DR MCGILL Consulting Unavailable HOY ., DR MCGILL Primary Care Unavailable HOY ., DR MCGILL Attending Unavailable HOY ., DR MCGILL Admitting Unavailable Shawn Graff Consulting Unavailable HOY ., DR MCGILL Consulting Unavailable HOY ., DR MCGILL Primary Care Unavailable HOY ., DR MCGILL Attending Unavailable HOY ., DR MCGILL Admitting Unavailable Shawn Graff Consulting Unavailable CHARLEROI, DR NISA Lainez Consulting Unavailable ROBERTAY ., DR MCGILL Primary Care Unavailable ANNA IRBY Attending Unavailable ANNA IRBY Admitting Unavailable ANNA IRBY Consulting Unavailable WENDY ., DR MCGILL Primary Care Unavailable AMIRA MYLES Attending Unavailable AMIRA MYLES Admitting Unavailable WENDY ., DR MCGILL Primary Care Unavailable AMIRA MYLES Attending Unavailable AMIRA MYLES Admitting Unavailable KARINAAS, DR YING Consulting Unavailable HOY ., DR [...] ., DR MCGILL Admitting Unavailable WEST, DR INSA Lainez Consulting Unavailable HOY ., DR MCGILL Consulting Unavailable HOY ., DR MCGILL Primary Care Unavailable HOY ., DR MCGILL Attending Unavailable HOY ., DR MCGILL Admitting Unavailable MD Patrizia Melendrez Attending Provider MD Nano Nguyen Primary Care Provider [phone] Patrizia Melendrez Unavailable Patrizia Melendrez Attending Unavailable Nano Nguyen M Primary Care Unavailable Patrizia Melendrez Admitting Unavailable Patrizia Melendrez Attending Unavailable Nano Nguyen M Primary Care Unavailable Patrizia Melendrez Admitting Unavailable Shanice Larsen MD Unavailable Willem Suarez MD Unavailable Shanice Larsen MD Unavailable Unavailable Nano Nguyen MD Primary Care Provider [phone] Shanice Larsen MD Unavailable Nano Nguyen MD Primary Care Provider [phone] NANO NGUYEN Primary Care Unavailable NANO NGUYEN M Referring Unavailable HOY, NANO M Primary Care Unavailable HOY, NANO M Referring Unavailable NANO NGUYEN M Primary Care Unavailable Nano Nguyen MD Primary Care Provider [phone] TRIPP HUTSON Attending Unavailable PAPA SANTIAGO Attending Unavailable HOYong, NANO M Primary Care Unavailable SHANICE LARSEN Referring Unavailable WILLEM SUAREZ Referring Unavailable ESTRELLA SUAREZISAL Referring Unavailable BAKAEEN, WILLEM Referring Unavailable AMBANI, PAPA Attending Unavailable BAKAEEN, WILLEM Referring Unavailable HOY, NANO M Primary Care Unavailable BAKAEEN, WILLEM Attending Unavailable BAKAEEN, WILLEM Referring Unavailable HOY, NANO M Primary Care Unavailable DILLE, PAMELA Referring Unavailable HOY, NANO M Primary Care Unavailable BARZILAI, BENICO Attending Unavailable BARZILAI, BENICO Attending Unavailable BARZILAI, BENICO Referring Unavailable BAKAEEN, WILLEM Attending Unavailable BAKAEEN, WILLEM Referring Unavailable HOY, NANO M Primary Care Unavailable BAKAEEN, WILLEM Referring Unavailable HOY, NANO M Primary Care Unavailable BARZILAI, BENICO Attending Unavailable BARZILAI, BENICO Referring Unavailable MOUDGIL, DAYO Referring Unavailable HOY, NANO M Primary Care Unavailable GLORIA CALLAHAN Attending Unavailable DILLE, PAMELA Referring Unavailable HOY, NANO M Primary Care Unavailable HOY, NANO M Primary Care Unavailable BARZILAI, BENICO Attending Unavailable BARZILAI, BENICO Referring Unavailable AMBANI, PAPA Attending Unavailable SELF Referring Unavailable HOY, NANO M Primary Care Unavailable HOY, NANO M Primary Care Unavailable BARZILAI, BENICO Referring Unavailable BAKAEEN, WILLEM Referring Unavailable HOY, NANO M Primary Care Unavailable BAKAEEN, WILLEM Referring Unavailable BAKAEEN, WILLEM Referring Unavailable BAKAEEN, WILLEM Referring Unavailable HOY, NANO M Primary Care Unavailable BAKAEEN, WILLEM Referring Unavailable HOY, NANO M Primary Care Unavailable BAKAEEN, WILLEM Referring Unavailable HOY, NANO M Primary Care Unavailable BAKAEEN, WILLEM Referring Unavailable HOY, NANO M Primary Care Unavailable AMBANI, PAPA Referring Unavailable HOY, NANO M Primary Care Unavailable BARZILAI, BENICO Referring Unavailable BAKAEEN, WILLEM Referring Unavailable BAKAEEN, WILLEM Referring Unavailable BAKAEEN, WILLEM Attending Unavailable BAKAEEN, WILLEM Admitting Unavailable HOY, NANO M Primary Care Unavailable HOY, NANO M Primary Care Unavailable BARZILAI, BENICO Referring Unavailable DILLE, PAMELA Attending Unavailable HOY, NANO M Primary Care Unavailable BARZILAI, BENICO Referring Unavailable CIUNI, FRANTZ Referring Unavailable HOY, NANO M Primary Care Unavailable HOY, NANO M Primary Care Unavailable GLORIA CALLAHAN Attending Unavailable AMBANI, PAPA Referring Unavailable HORUBIA BeachLAS M Primary Care Unavailable HOYong, NANO M Primary Care Unavailable BARHALLAMarko, BENICO Referring Unavailable BARZILAMarko, BENICO Referring Unavailable SUZIE, BENICO Attending Unavailable SUZIE, BENICO Referring Unavailable DUKE SHEEHAN Referring Unavailable HOY, NANO M Primary Care Unavailable DANIA CRUZ Attending Unavailable HOYong, NANO M Primary Care Unavailable AMBANI, PAPA Referring Unavailable HOYong NANO M Primary Care Unavailable Allergies Allergy Classification Reported Allergen(s) Allergy Type Date of Onset Reaction(s) Facility (20 sources) Tetracycline; Translations: [tetracycline] Drug Allergy 3 Unknown, GI Upset [facility] (2 sources) rosuvastatin; Translations: [ROSUVASTATIN] Drug Allergy 0 [facility] Repository (1 source) SITagliptin Drug Allergy 0 [facility] Repository (1 source) Tetracycline Drug Allergy [facility] Repository (3 sources) House dust mite Drug allergy Unknown [facility] Other (4 sources) Cat dander; Translations: [CAT DANDER] Drug allergy 3 Unknown [facility] Repository (1 source) Tetracycline Drug Allergy 3 [facility] Repository (20 sources) Lebanese house dust mite allergenic extract / house dust mite allergenic extract; Translations: [ALLERG XT,D.FARINAE-D.P TERONYS] Drug Allergy 3 Itching [facility] (20 sources) Cat Hair Extract; Translations: [CAT HAIR STANDARDIZED ALLERGENIC EXTRACT] Drug Allergy 3 Itching [facility] (20 sources) house dust allergenic extract; Translations: [HOUSE DUST] Drug Allergy 3 Itching [facility] (20 sources) rosuvastatin Drug Allergy 0 Unknown [facility] (20 sources) SITagliptin; Translations: [SITAGLIPTIN] Drug Allergy 0 Unknown [facility] (8 sources) Miconazole; Translations: [MICONAZOLE] Drug Allergy 4 Itching, Swelling [facility] Medications Current Medications Medication Drug Class(es) Dates Sig (Normalized) Sig (Original) acetaminophen 500 mg oral tablet (20 sources) Start: 08-02-2023 End: 11-08-2023 take 500-1000 mg by mouth every six hours as needed acetaminophen (TYLENOL) 500 mg tablet Take 1-2 tablets by mouth every 6 hours as needed (for mild surgical pain). 100 tablet 0 08/02/2023 11/08/2023 Discontinued (Discontinued by Patient) Comment on above: Take 1-2 tablets by mouth every 6 hours as needed (for mild surgical pain). [id number] 200 actuat albuterol 0.09 mg/actuat metered dose inhaler (20 sources) beta2-Adrenergic Agonist Start: 08-02-2023 take 2 puff(s) by inhalation every six hours as needed for wheezing VENTOLIN HFA 90 mcg/actuation inhaler Inhale 2 Puffs as instructed every 6 hours as needed for wheezing/shortness of breath. 1 Each 2 08/02/2023 Active Start: 03-20-2023 take 1 puff(s) by in halation every six hours Albuterol Sulfate (Ventolin Hfa) 90 mcg/actuation HFA aerosol inhaler Active 2 PUFF INHALATION Q6H March 20, 2023 12:00am Start: 02-14-2022 take 2 puff(s) by in halation four times daily VENTOLIN HFA 90 mcg/actuation inhaler Inhale 2 Puffs as instructed four times daily. 0 03/07/2023 Suspended take 1 puff(s) by in halation every four hours as needed Ventolin HFA 108 (90 Base) MCG/ACT 1 puff as needed Inhalation every 4 hrs Active Comment on above: Inhale 2 Puffs as in structed four times daily. Inhale 2 Puffs as in structed every 6 hours as needed for wheezing/shortness of breath. aspirin 81 mg chewable tablet (20 sources) Platelet Aggregation Inhibitor, Nonsteroidal Anti-inflammatory Drug Start: 08-02-2023 take 1 tablet by mouth once daily aspirin 81 mg chewable tablet Take 1 tablet by mouth once daily. 90 tablet 1 08/02/2023 Active Start: 03-20-2023 take 81 mg by mouth once daily Aspirin Active 81 MG PO Daily March 20, 2023 12:00am Aspirin EC 81 MG TBEC TAKE 1 TABLET DAILY. Quantity: 90 Refills: 3 Ordered: 19-Jul-2022 DO Active Comment on above: Take 81 mg by mouth once daily. Take 1 tablet by [facility] once daily. Calcium (2 sources) Phosphate Binder, Calcium Start: 03-20-2023 take 300 mg by mouth two times weekly Calcium Active 300 MG PO Twice a Week March 20, 2023 12:00am calcium carbonate 1250 mg chewable tablet (20 sources) End: 11-08-2023 take 1 tablet by mouth once daily calcium carbonate 500 mg calcium (1,250 mg) chewable tablet Take 500 mg by mouth once daily. 0 11/08/2023 Discontinued (Discontinued by Patient) take 1 tablet by mouth every twe lve hours Calcium 500 MG 1 tablet with meals Orally Twice a day Active Comment on above: Take 500 mg by mouth once daily. carvedilol 12.5 mg oral tablet (15 sources) alpha-Adrenergic Kofi, beta-Adrenergic Kofi Start: 03-26-2023 take 12.5 mg by mouth twice daily Carvedilol Active 12.5 MG PO Twice daily March 26, 2023 12:00am Start: 03-07-2023 End: 03-26-2023 take 1 tablet by mouth twice daily carvedilol (COREG) 25 mg tablet Take 25 mg by mouth two times a day. 0 03/07/2023 Suspended take 2 tablets by [facility] every twelve hours Carvedilol 6.25 MG 2 [...] 20, 2023 12:00am take 1 capsule by [facility] every twenty-four hours Vitamin D3 1000 UNIT 1 capsule Orally Once a day Active take 1 capsule by mouth once bunny ly Vitamin D3 50 MCG (2000 UT) Oral Capsule TAKE 1 CAPSULE Daily Quantity: 0 Refills: 0 Ordered: 19-Jul-2022 DO Active clopidogrel 75 mg oral tablet (20 sources) P2Y12 Platelet Inhibitor Start: 03-07-2023 take 1 tablet by mouth once daily clopidogrel (PLAVIX) 75 mg tablet Take 1 tablet by mouth once daily. 90 tablet 1 08/02/2023 Active Comment on above: Take 1 tablet by [facility] once daily. docusate sodium 100 mg oral capsule (20 sources) Start: 08-02-2023 take 1 capsule by mouth twice daily docusate sodium (COLACE) 100 mg capsule Take 1 capsule by mouth two times a day. 30 capsule 08/02/2023 Active Comment on above: Take 1 capsule by mo [facility] two times a day. 0.5 ml dulaglutide 1.5 mg/ml auto-injector (20 sources) GLP-1 Receptor Agonist Start: 08-23-2023 TRULICITY 0.75 mg/0.5 mL pen injector Inject 0.75 mg subcutaneously one time a week. Patient should start on August 23, 2023. 08/23/2023 Active Start: 08-23-2023 TRULICITY 0.75 mg/0.5 mL pen injector Inject 0.75 mg subcutaneously one time a week. Patient should start on August 23, 2023. 0 08/23/2023 Active Start: 08-23-2023 TRULICITY 0.75 mg/0.5 mL pen injector Inject 0.75 mg subcutaneously one time a week. Patient should start on August 23, 2023. 0 08/23/2023 Active Start: 08-23-2023 TRULICITY 0.75 mg/0.5 mL pen injector Inject 0.75 mg subcutaneously one time a week. Patient should start on August 23, 2023. 0 08/23/2023 Active Start: 08-23-2023 TRULICITY 0.75 mg/0.5 mL pen injector Inject 0.75 mg subcutaneously one time a week. Patient should start on August 23, 2023. 0 08/23/2023 Active Start: 08-23-2023 TRULICITY 0.75 mg/0.5 mL pen injector Inject 0.75 mg subcutaneously one time a week. Patient should start on August 23, 2023. 0 08/23/2023 Active Start: 03-20-2023 inject 0.5 mL by sub cutaneous injection every week TRULICITY 0.75 mg/0.5 mL pen injector Inject 0.5 mL subcutaneously one time a week. 0 03/25/2023 Suspended Comment on above: Inject 0.5 mL subcut aneously one time a week. Inject 0.75 mg subcu taneously one time a week. Patient should start on August 23, 2023. empagliflozin 10 mg oral tablet (20 sources) Sodium-Glucose Cotransporter 2 Inhibitor Start: 2021 take 1 tablet by mouth once daily JARDIANCE 10 mg tablet Take 1 tablet by mouth once daily. 03/07/2023 Active Comment on above: Take 1 tablet by [facility] once daily. 1 ml evolocumab 140 mg/ml auto-injector (10 sources) PCSK9 Inhibitor Start: 2023 End: 2023 inject 140 mg by subcutaneous injection every other week evolocumab 140 mg/mL subcutaneous pen injector (REPATHA SURECLICK) Inject 140 mg subcutaneously every 2 weeks. 6 Each 1 10/10/2023 11/08/2023 Discontinued (Discontinued by Patient) Comment on above: Inject 140 mg subcut aneously every 2 weeks. ezetimibe 10 mg oral tablet (20 sources) Dietary Cholesterol Absorption Inhibitor Start: 2021 take 1 tablet by mouth once daily ezetimibe (ZETIA) 10 mg tablet Take 1 tablet by mouth once daily. 90 tablet 1 08/02/2023 Active Comment on above: Take 1 tablet by [facility] once daily. furosemide 40 mg oral tablet (18 sources) Loop Diuretic Start: 2023 End: 2023 take 1 tablet by mouth twice daily, then take 1 tablet by mouth once daily furosemide (LASIX) 40 mg tablet Take 1 tablet by mouth two times a day for 4 days, THEN 1 tablet once daily for 10 days. 18 tablet 0 08/02/2023 Active Comment on above: Take 1 tablet by [facility] two times a day for 4 days, THEN 1 tablet once daily for 10 days. L.Acid-L.Rham-B.Brev e-S.Therm (1 source) Start: 2022 take 1 tablet by mouth two times weekly L.Acid-L.Rham-B.Brev e-S.Therm Active 1 TAB PO Twice a Week March 20, 2023 12:00am L.Acid-L.Rham-B.Brev e-S.Therm (Probiotic) 3 billion cell Tablet,Chewable (1 source) Start: 2022 take 3 tablets by mouth two times weekly L.Acid-L.Rham-B.Anna e-SMelTherm (Probiotic) 3 billion cell Tablet,Chewable Active 1 TAB PO Twice a Week March 20, 2023 12:00am lidocaine 0.04 mg/mg medicated patch (20 sources) Antiarrhythmic, Amide Local Anesthetic Start: 2023 End: 2023 apply 1 dose transdermal route once daily, then apply 1 dose transdermal route every twelve hours lidocaine (SALONPAS) 4 % patch Apply 1 Patch as directed once daily. APPLY TO: CHEST - Remove patch after 12 hours. 10 Patch 0 08/02/2023 11/08/2023 Discontinued (Discontinued by Patient) Comment on above: Apply 1 Patch as dir ected once daily. APPLY TO: CHEST - Remove patch after 12 hours. lisinopril 20 mg oral tablet (20 sources) Angiotensin Converting Enzyme Inhibitor Start: 2023 take 1 tablet by mouth once daily lisinopril (ZESTRIL) 20 mg tablet Take 1 tablet by mouth once daily. 90 tablet 2 10/10/2023 Active Start: 03-07-2023 take [address] tablet [address] [facility] once daily lisinopril (ZESTRIL) 20 mg tablet Take 1 tablet by mouth once daily. 0 03/07/2023 Suspended Comment on above: Take 1 tablet by [facility] once daily. loratadine 10 mg oral tablet (5 sources) [...] a meal Orally Once a day Active magnesium oxide 400 mg oral tablet (20 sources) Start: 08-02-2023 End: 08-16-2023 take 2 tablets by mouth once daily magnesium oxide (MAG-OX) 400 mg (241.3 mg magnesium) tablet Take 2 tablets by mouth once daily for 14 days. 28 tablet 0 08/02/2023 Active take 1 tablet by mouth once [place] Magnesium Oxide -Mg Supplement 420 (252 Mg) MG Oral Tablet Take 1 tablet daily Quantity: 0 Refills: 0 Ordered: 19-Jul-2022 DO Active Comment on above: Take 2 tablets by [facility] once daily for 14 days. metFORMIN hydrochloride 1000 mg oral tablet (20 sources) Biguanide Start: 03-20-2023 take 1000 mg by mouth once daily Metformin Active 1000 MG PO Daily March 20, 2023 12:00am Start: 03-07-2023 take 1 tablet by [facility] twice daily metFORMIN (GLUCOPHAGE) 1,000 mg tablet Take 1,000 mg by mouth two times a day. 03/07/2023 Active Start: 04-12-2022 take 2 tablets by [facility] once daily metFORMIN HCl - 1000 MG Oral Tablet TAKE 2 TABLET Daily Quantity: 0 Refills: 0 Ordered: 12-Apr-2022 DO Start : 12-Apr-2022 Active Comment on above: Take 1,000 mg by [facility] two times a day. 24 hr metoprolol succinate 50 mg extended release oral tablet (20 sources) beta-Adrenergic Kofi Start: 08-02-2023 take 0.5 tablet by mouth twice daily metoprolol succinate ER (TOPROL XL) 50 mg 24 hr tablet Take 0.5 tablets by mouth two times a day. 90 tablet 1 08/02/2023 Active Comment on above: Take 0.5 tablets by mouth two times a day. Oxybutinin XL 5mg (3 sources) Oxybutinin XL 5m g 2 tablets orally at night Active oxybutynin chloride 5 mg oral tablet (12 sources) Cholinergic Muscarinic Antagonist Start: 03-20-2023 oxybutynin (DITROPAN) 5 mg tablet two times a day. 03/20/2023 Active Start: 02-10-2021 take 2 tablets by [facility] once daily oxyBUTYnin Chloride 5 MG Oral Tablet TAKE 2 TABLET BY MOUTH ONCE A DAY Quantity: 60 Refills: 0 Ordered: 12-Oct-2021 DO Start : 10-Feb-2021 Active oxyCODONE hydrochloride 5 mg oral tablet (4 sources) Opioid Agonist Start: 08-02-2023 End: 08-09-2023 take 1 tablet by mouth every six hours as needed for pain oxyCODONE IR (ROXICODONE) 5 mg immediate release tablet Indications: Postoperative pain Take 1 tablet by mouth every 6 hours as needed (for moderate to severe surgical pain) for up to 7 days. 28 tablet 0 08/02/2023 08/09/2023 Active Comment on above: Take 1 tablet by [facility] every 6 hours as needed (for moderate to severe surgical pain) for up to 7 days. microencapsulated potassium chloride 20 meq extended release oral tablet (5 sources) Start: 08-02-2023 End: 08-16-2023 take 1 tablet by mouth twice daily, then take 1 tablet by mouth once daily potassium chloride ER (KLOR-CON) 20 mEq tablet Take 1 tablet by mouth two times a day for 4 days, THEN 1 tablet once daily for 10 days. 18 tablet 0 08/02/2023 08/16/2023 Active Comment on above: Take 1 tablet by [facility] two times a day for 4 days, THEN 1 tablet once daily for 10 days. potassium gluconate 2.5 meq oral tablet (9 sources) Start: 03-20-2023 take 595 mg by mouth once daily Potassium Gluconate Active 595 MG PO Daily March 20, 2023 12:00am take 1 capsule by mo [facility] once daily at mealtime Potassium Gluconate 595 MG 1 capsule wit h food Orally Once a day Active take 1 tablet by mouth once [place] y Potassium Gluconate 595 (99 K) MG Oral Tablet TAKE 1 TABLET DAILY. Quantity: 0 Refills: 0 Ordered: 19-Jul-2022 DO Active probiotic (3 sources) probiotic as directed Active rivaroxaban 2.5 mg oral tablet (20 sources) Factor Xa Inhibitor Start: 01-16-2024 take 1 tablet by mouth twice daily rivaroxaban (XARELTO) 2.5 mg tablet Take 1 tablet by mouth two times a day. 90 tablet 2 01/16/2024 Active Start: 03-20-2023 End: 03-26-2023 Rivaroxaban (Xarelto) 2.5 mg tablet Discontinued 0 .ROUTE .COMPLEX March 20, 2023 12:00am March 26, 2023 1:03pm patient stopped medication 03/14/23, plans to start after surgery oct 6 Start: 03-06-2023 take 1 tablet by [facility] twice daily XARELTO 2.5 mg tablet Take 2.5 mg by mouth two times a day. 0 03/06/2023 Suspended Comment on above: Take 2.5 mg by mouth two times a day. Trospium (6 sources) Cholinergic Muscarinic Antagonist trospium chloride (TROSPIUM ORAL) Take by mouth once daily. Active trospium chlorid e (TROSPIUM ORAL) Take by mouth once daily. 0 Active 24 hr venlafaxine 75 mg extended release oral capsule (20 sources) Serotonin and Norepinephrine Reuptake Inhibitor Start: 04-12-2022 take 1 capsule by mouth once daily venlafaxine ER (EFFEXOR XR) 75 mg 24 hr capsule Take 1 capsule by mouth once daily. 90 capsule 1 08/02/2023 Active take 1 tablet by [facility] every twenty-four hours Venlafaxine HCl 75 MG 1 tablet with food Orally Once a day Active Comment on above: Take 1 capsule by mo [facility] once daily. Completed/Discontinued Medications Medication Drug Class(es) Dates Sig (Normalized) Sig (Original) ALPRAZolam 0.25 mg oral tablet (4 sources) Benzodiazepine Start: 06-28-2022 take 1 tablet by mouth once daily as needed ALPRAZolam 0.25 MG Oral Tablet TAKE 1 TABLET BY MOUTH ONCE A DAY NEEDED Quantity: 30 Refills: 0 Ordered: 28-Jun-2022 DO Start : 28-Jun-2022 Active ibuprofen 800 mg oral tablet (18 sources) Nonsteroidal Anti-inflammatory Drug Start: 03-20-2023 End: 03-26-2023 take 1 tablet by mouth once daily Ibuprofen (Motrin) 800 mg Tablet Discontinued 800 MG PO Daily March 20, 2023 12:00am March 26, 2023 1:03pm Start: 08-16-2021 [facility] IBU 800 mg tablet Take 800 mg by mouth four times a day as needed. 0 03/07/2023 Suspended take 1 tablet by [facility] every eight hours at mealtime as needed Ibuprofen 800 MG 1 tablet with food or milk as needed Orally every 8 hrs Not-Taking Comment on above: Take 800 mg by mouth four times a day as needed. mupirocin 0.02 mg/mg topical ointment (1 source) RNA Synthetase Inhibitor Antibacterial Start: 07-17-19 mupirocin (BACTROBAN) 2 % ointment Apply a small amount in each nostril using a cotton swab twice the day before surgery and once the morning of surgery. 22 g 0 07/17/2023 Suspended Comment on above: Apply a small amount in each nostril using a cotton swab twice the day before surgery and once the morning of surgery. 24 hr nicotine 0.875 mg/hr transdermal system (13 sources) Cholinergic Nicotinic Agonist Start: 07-02-19 End: 10-11-19 apply 1 dose transdermal route once daily nicotine (NICODERM CQ) 21 mg/24 hr Apply 1 Patch as directed once daily. 14 Patch 1 08/02/2023 10/11/2023 Discontinued Comment on above: Apply 1 Patch as dir ected once daily. varenicline 1 mg oral tablet (10 sources) Partial Cholinergic Nicotinic Agonist Start: 03-20-20 End: 03-26-20 take 1 mg by mouth once daily [...] Oral Tablet Therapy Pack (2 sources) Start: 05-08-2022 Varenicline Tartrate 0.5 MG X 11 & 1 MG X 42 Oral Tablet Therapy Pack as directed Quantity: 0 Refills: 0 Ordered: 08-May-2022 DO Start : 08-May-2022 Active Varenicline Tartrate 0.5 MG X 11 & 1 MG X 42 TBPK (2 sources) Start: 05-08-2022 Varenicline Tartrate 0.5 MG X 11 & 1 MG X 42 TBPK as directed Quantity: 0 Refills: 0 Ordered: 08-May-2022 DO Start : 08-May-2022 Active Problems Active Problems Problem Classification Problem Date Documented Date Episodic/Chronic Acute cerebrovascular disease (1 source) Acute cerebrovascular disease Onset: 09-26-2023 Anxiety disorders (20 sources) Mixed anxiety and depressive disorder; Translations: [Anxiety disorder, unspecified] Onset: 08-01-2023 08-01-2023 Chronic Asthma (1 source) Unspecified asthma, uncomplicated; Translations: [UNSPECIFIED ASTHMA UNCOMPLICATED] Onset: 07-10-2022 Chronic Cardiac dysrhythmias (1 source) Atrial premature depolarization; Translations: [ATRIAL PREMATURE DEPOLARIZATION] Onset: 05-26-2022 Chronic Chronic ulcer of skin (2 sources) Non-pressure chronic ulcer of skin of other sites with fat layer exposed; Translations: [Non-pressure chronic ulcer of right heel and midfoot limited to breakdown of skin] Onset: 07-10-2022 Chronic Coagulation and hemorrhagic disorders (20 sources) Thrombocytopenic disorder; Translations: [Thrombocytopenia, unspecified] Onset: 08-01-2023 08-01-2023 Chronic Coronary atherosclerosis and other heart disease (20 sources) Multi vessel coronary artery disease; Translations: [Atherosclerotic heart disease of [place] coronary artery without angina pectoris] Onset: 04-03-2023 04-26-2023 Chronic Diabetes mellitus with complications (11 sources) Type 2 diabetes mellitus with hyperglycemia; Translations: [Type 2 diabetes mellitus with foot ulcer] Onset: 05-29-2022 Chronic Diabetes mellitus without complication (20 sources) Diabetes mellitus without complication; Translations: [Diabetes mellitus without mention of complication, type II or unspecified type, not stated as uncontrolled] Onset: 09-10-2022 07-29-2023 Chronic Disorders of lipid metabolism (20 sources) Hyperlipidemia; Translations: [Other and unspecified hyperlipidemia] Onset: 07-10-2022 Chronic Essential hypertension (20 sources) Hypertensive disorder; Translations: [Essential (primary) hypertension] Onset: 06-14-2023 Chronic Mood disorders (1 source) Major depressive disorder, single episode, unspecified; Translations: [GARRETT DEPRESS D/O SINGLE EPIS UNS] Onset: 06-02-2022 Chronic Occlusion or stenosis of precerebral arteries (20 sources) Bilateral stenosis of carotid arteries; Translations: [Occlusion and stenosis of bilateral carotid arteries] Onset: 07-29-2023 07-29-2023 Chronic Other aftercare (2 sources) Surgical follow-up; Translations: [Encounter for follow-up examination after completed treatment for conditions other than malignant neoplasm] 08-01-2023 Episodic Other circulatory disease (1 source) History of [...] breath; Translations: [SOB (shortness of breath)] Onset: 01-16-2024 Episodic Other lower respiratory disease (2 sources) Dyspnea; Translations: [Shortness of breath] 05-28-2023 Episodic Other nutritional; endocrine; and metabolic disorders (4 sources) Obesity; Translations: [Obesity, unspecified] Chronic Other nutritional; endocrine; and metabolic disorders (20 sources) Morbid obesity; Translations: [Morbid (severe) obesity due to excess calories] Onset: 05-13-2023 05-13-2023 Chronic Other nutritional; endocrine; and metabolic disorders (20 sources) Obese class I; Translations: [Obesity, unspecified] Onset: 08-01-2023 08-01-2023 Chronic Other nutritional; endocrine; and metabolic disorders (1 source) Morbid (severe) obesity due to excess calories; Translations: [Morbid obesity (HCC)] Onset: 05-13-2023 Chronic Other screening for suspected conditions (not mental disorders or infectious disease) (1 source) Imaging result abnormal; Translations: [Abnormal findings on diagnostic imaging of other specified body structures] 08-13-2023 Chronic Other skin disorders (4 sources) Localized swelling, mass and lump, neck; Translations: [LOCALIZED SWELLING MASS AND LUMP NECK] Onset: 10-01-2022 Episodic Peripheral and visceral atherosclerosis (20 sources) Peripheral vascular disease, unspecified; Translations: [PAD (peripheral artery disease)] Onset: 07-10-2022 Chronic Residual codes; unclassified (1 source) Other general symptoms and signs; Translations: [OTHER GENERAL SYMPTOMS AND SIGNS] Onset: 08-26-2022 Episodic Residual codes; unclassified (1 source) Tobacco use Episodic Residual codes; unclassified (1 source) Pain, unspecified; Translations: [Pain, unspecified] Onset: 09-27-2023 Episodic Substance-related disorders (8 sources) Nicotine dependence, unspecified, uncomplicated; Translations: [Nicotine dependence, cigarettes, uncomplicated] Onset: 05-11-2022 Chronic Transient cerebral ischemia (2 sources) Transient cerebral ischemia; Translations: [Transient cerebral ischemic attack, unspecified] Onset: 01-16-2024 10-10-2023 Chronic Unclassified (3 sources) CONTACT W/AND (SUSP) EXPOS COVID-19; Translations: [CONTACT W/AND (SUSP) EXPOS COVID-19] Onset: 01-31-2022 Unclassified (1 source) Encounter for preprocedural laboratory examination; Translations: [Encounter for preprocedural laboratory examination] Onset: 03-20-2023 Past or Other Problems Problem Classification Problem Date Documented Date Episodic/Chronic Acute posthemorrhagic anemia (20 sources) Acute posthemorrhagic anemia; Translations: [Acute posthemorrhagic anemia] Onset: 08-01-2023 08-01-2023 Episodic Administrative/social admission (20 sources) Discharge status; Translations: [Encounter for administrative examinations, unspecified] Onset: 07-17-2023 07-17-2023 Episodic Coronary atherosclerosis and other heart disease (3 sources) Past history of procedure; Translations: [Coronary angioplasty status] Onset: 06-14-2023 06-03-2023 Episodic Fluid and electrolyte disorders (20 sources) Hypo-osmolality and or hyponatremia; Translations: [Hypo-osmolality and hyponatremia] Onset: 08-02-2023 08-02-2023 Episodic Nonspecific chest pain (4 sources) Chest pain, unspecified; Translations: [CHEST PAIN UNSPECIFIED] Onset: 05-28-2022 Episodic Other aftercare (1 source) Encounter for follow-up examination after completed treatment for conditions other than malignant neoplasm; Translations: [Surgery follow-up] Onset: 08-07-2023 Episodic Other circulatory disease (1 source) Unspecified disorder of circulatory system; Translations: [Vasculopathy] Onset: 07-02-2023 Episodic Other connective tissue disease (1 source) Pain in right foot; Translations: [PAIN IN RIGHT FOOT] Onset: 05-29-2022 Episodic Other lower respiratory disease (1 source) Dyspnea, unspecified; Translations: [DYSPNEA UNSPECIFIED] Onset: 06-02-2022 Episodic Other lower respiratory disease (20 sources) Nodule of lung; Translations: [Solitary pulmonary nodule] Onset: 07-12-2023 07-12-2023 Episodic Other lower respiratory disease (1 source) Solitary pulmonary nodule; Translations: [Lung nodule] Onset: 07-12-2023 Episodic Other nervous system disorders (1 source) Other acute postprocedural pain; Translations: [Postoperative pain] Onset: 07-29-2023 Episodic Other screening for suspected conditions (not mental disorders or infectious disease) (11 sources) Encounter for screening mammogram for malignant neoplasm of breast; Translations: [Electrocardiogram abnormal] Onset: 05-25-2022 Episodic Residual codes; unclassified (1 source) Family history of malignant neoplasm of trachea, bronchus and lung; Translations: [FAM HX MALIG NEOPLSM TRACH BRON LNG] Onset: 05-31-2022 Episodic Residual codes; unclassified (1 source) Family history of malignant neoplasm of breast; Translations: [FAMILY HX MALIG NEOPLASM OF BREAST] Onset: 05-31-2022 Episodic Screening and history of mental health and substance abuse codes (20 sources) Ex-smoker; Translations: [Personal history of tobacco use] Onset: 05-26-2022 08-01-2023 Episodic Unclassified (1 source) CONTACT W/AND (SUSP) EXPOS COVID-19; Translations: [CONTACT W/AND (SUSP) EXPOS COVID-19] Onset: 01-29-2022 Results Test Name Value Interpretation Reference Range Facility CNPTOUTREACHon 02-26-2024 CNPTOUTREACH Normal [facility] CNPNon 02-25-2024 CNPN Normal [facility] CT CHEST WO IVCONon 02-18-20 CT CHEST WO IVCON Normal [facility] CNPTOUTREACHon 02-04-2024 CNPTOUTREACH Normal [facility] CNOVon 01-28-2024 CNOV Normal [facility] PVR LEG LOVE VAS LABon 2023 PVR LEG LOVE VAS LAB Normal [facility] CNOVon 01-16-2024 CNOV Normal [facility] ECG COMPLETEon 01-16-2024 ECG COMPLETE Normal [facility] CNPNon 01-01-2024 CNPN Normal [facility] CNPTOUTREACHon 10-30-2023 CNPTOUTREACH Normal [facility] CNPNon 10-25-2023 CNPN Normal [facility] CNPTOUTREACHon 10-24-2023 CNPTOUTREACH Normal [facility] CNPNon 10-18-2023 CNPN Normal [facility] CNPNon 10-17-2023 CNPN Normal [facility] CNOVon 10-10-2023 CNOV Normal [facility] CT CHEST WO IVCONon 10-10-19 CT [facility] ECG COMPLETEon 10-10-2023 ECG COMPLETE Normal [facility] CNPNon 09-23-2023 CNPN Normal [facility] CNPTOUTREACHon 09-03-2023 CNPTOUTREACH Normal [facility] CNPNon 08-23-2023 CNPN Normal [facility] CNPNon 08-08-2023 CNPN Normal [facility] CBC panel Auto (Bld)on 08-07 Erythrocyte distribution width (RBC) [Ratio] 13.2 % Normal 11.5-15.0 [facility] Comment on above: Order Comment: Speci men Type: BLOOD SPECIMENOrdering Facility: [facility] Address: [address] [place] [address] Performed By: #### 5 8410-2 ####[facility] [id number] [place] [address] [place] Hematocrit (Bld) [Volume fraction] 32.4 % Low 36.0-46.0 [facility] Comment on above: Order Comment: Speci men Type: BLOOD SPECIMENOrdering Facility: [facility] Address: [address] [place] [address] Performed By: #### 5 8410-2 ####[facility] [id number] [place] [address] [place] Hemoglobin (Bld) [Mass/Vol] 10.4 g/dL Low 11.5-15.5 [facility] Comment on above: Order Comment: Speci men Type: BLOOD SPECIMENOrdering Facility: [facility] Address: [address] [place] [address] Performed By: #### 5 8410-2 ####[facility] [id number] [place] [address] [place] MCH (RBC) [Entitic mass] 31.0 pg Normal 26.0-34.0 [facility] Comment on above: Order Comment: Speci men Type: BLOOD SPECIMENOrdering Facility: [facility] Address: [address] [place] [address] Performed By: #### 5 8410-2 ####[facility] [id number] [place] [address] [place] MCHC (RBC) [Mass/Vol] 32.1 g/dL Normal 30.5-36.0 [facility] Comment on above: Order Comment: Speci men Type: BLOOD SPECIMENOrdering Facility: [facility] Address: [address] [place] [address] Performed By: #### 5 8410-2 ####[facility] [id number] [place] [address] [place] MCV (RBC) [Entitic vol] 96.4 fL Normal 80.0-100.0 [facility] Comment on above: Order Comment: Speci men Type: BLOOD SPECIMENOrdering Facility: [facility] Address: [address] [place] [address] Performed By: #### 5 8410-2 ####[facility] [id number] [place] [address] [place] Nucleated RBC (Bld) [#/Vol] 10*3/uL Normal <0.01 [facility] Comment on above: Order Comment: Speci men Type: BLOOD SPECIMENOrdering Facility: [facility] Address: [address] [place] [address] Performed By: #### 5 8410-2 ####[facility] [id number] [place] [address] [place] Platelet mean volume (Bld) [Entitic vol] 9.3 fL Normal 9.0-12.7 [facility] Comment on above: Order Comment: Speci men Type: BLOOD SPECIMENOrdering Facility: [facility] Address: [address] [place] [address] Performed By: #### 5 8410-2 ####[facility] [id number] [place] [address] [place] Platelets (Bld) [#/Vol] 392 10*3/uL Normal 150-400 [facility] Comment on above: Order Comment: Speci men Type: BLOOD SPECIMENOrdering Facility: [facility] Address: [address] [place] [address] Performed By: #### 5 8410-2 ####[facility] [id number] [place] [address] [place] RBC (Bld) [#/Vol] 3.36 10*6/uL Low 3.90-5.20 [facility] Comment on above: Order Comment: Speci men Type: BLOOD SPECIMENOrdering Facility: [facility] Address: [address] [place] [address] Performed By: #### 5 8410-2 ####[facility] [id number] [place] [address] [place] WBC (Bld) [#/Vol] 7.17 10*3/uL Normal 3.70-11.00 [facility] Comment on above: Order Comment: Speci men Type: BLOOD SPECIMENOrdering Facility: [facility] Address: [address] [place] [address] Performed By: #### 5 8410-2 ####[facility] [id number] [place] [address] [place] CNOVon 08-07-2023 CNOV Normal [facility] Comprehensive metabolic 2000 panelon 08-07-2023 Albumin [Mass/Vol] 3.8 g/dL Low 3.9-4.9 [facility] Comment on above: Order Comment: Speci men Type: BLOOD SPECIMENOrdering Facility: [facility] Address: [address] [id number] Performed By: #### 2 4323-8 ####[facility] [id number] [place] [id number] [place] ALP [Catalytic activity/Vol] 93 U/L Normal 34-123 [facility] Comment on above: Order Comment: Speci men Type: BLOOD SPECIMENOrdering Facility: [facility] Address: [address] [id number] Performed By: #### 2 4323-8 ####[facility] [id number] [place] [address] [place] ALT [Catalytic activity/Vol] 21 U/L Normal 7-38 [facility] Comment on above: Order Comment: Speci men Type: BLOOD SPECIMENOrdering Facility: [facility] Address: [address] [place] [address] Performed By: #### 2 4323-8 ####[facility] [id number] [place] [address] [place] Anion gap [Moles/Vol] 14 mmol/L Normal 9-18 [facility] Comment on above: Order Comment: Speci men Type: BLOOD SPECIMENOrdering Facility: [facility] Address: [address] [id number] Performed By: #### 2 4323-8 ####[facility] [id number] [place] [id number] [place] AST [Catalytic activity/Vol] 14 U/L Normal 13-35 [facility] Comment on above: Order Comment: Speci men Type: BLOOD SPECIMENOrdering Facility: [facility] Address: [address] [place], [place] [address] Performed By: #### 2 4323-8 ####[facility] [id number] [place] [id number] [place] Bilirubin [Mass/Vol] 0.3 mg/dL Normal 0.2-1.3 [facility] Comment on above: Order Comment: Speci men Type: BLOOD SPECIMENOrdering Facility: [facility] Address: [address] [place] [address] Performed By: #### 2 4323-8 ####[facility] [id number] [place] [address] [place] Calcium [Mass/Vol] 10.3 mg/dL High 8.5-10.2 [facility] Comment on above: Order Comment: Speci men Type: BLOOD SPECIMENOrdering Facility: [facility] Address: [address] [place] [address] Performed By: #### 2 4323-8 ####[facility] [id number] [place] [address] [place] Chloride [Moles/Vol] 95 mmol/L Low 97-105 [facility] Comment on above: Order Comment: Speci men Type: BLOOD SPECIMENOrdering Facility: [facility] Address: [address] [place] [address] Performed By: #### 2 4323-8 ####[facility] [id number] [place] [address] [place] CO2 [Moles/Vol] 26 mmol/L Normal 22-30 [facility] Comment on above: Order Comment: Speci men Type: BLOOD SPECIMENOrdering Facility: [facility] Address: [address] [place] [address] Performed By: #### 2 4323-8 ####[facility] [id number] [place] [address] [place] Creatinine [Mass/Vol] 0.90 mg/dL Normal 0.58-0.96 [facility] Comment on above: Order Comment: Speci men Type: BLOOD SPECIMENOrdering Facility: [facility] Address: [address] [place] [address] Performed By: #### 2 4323-8 ####[facility] [id number] [place] [address] [place] Creatinine and Glomerular filtration rate.predicted panel (S/P/Bld) 71 mL/min/1.73m??? Normal >=60 [facility] Comment on above: Order Comment: Phyllis stein Type: BLOOD SPECIMENOrdering Facility: [facility] Address: [address] [place] [address] Result Comment: Annelise mated Glomerular Filtration Rate [...] actual GFR. Performed By: #### 2 4323-8 ####[facility] [id number] [place] [address] [place] Glucose [Mass/Vol] 180 mg/dL High 74-99 [facility] Comment on above: Order Comment: Phyllis stein Type: BLOOD SPECIMENOrdering Facility: [facility] Address: [address] [place] [address] Result Comment: The [place] [employer] (ADA) provides guidance for cutoff values for fasting glucose and random glucose. The ADA defines fasting as no caloric intake for at least 8 hours. Fasting plasma glucose results between 100 to 125 mg/dL indicate increased risk for diabetes (prediabetes).Fasting plasma glucose results greater than or equal to 126 mg/dL meet the criteria for diagnosis of diabetes. In the absence of unequivocal hyperglycemia, results should be confirmed by repeat testing. In a patient with classic symptoms of hyperglycemia or hyperglycemic crisis, random plasma glucose results greater than or equal to 200 mg/dL meet the criteria for diagnosis of diabetes.Reference: Standards of Medical Care in Diabetes 2016, [place] [employer]. Diabetes Care. 2016.39(Suppl 1). Performed By: #### 2 4323-8 ####[facility] [id number] [address] [address] [place] Potassium [Moles/Vol] 4.1 mmol/L Normal 3.7-5.1 [facility] Comment on above: Order Comment: Speci men Type: BLOOD SPECIMENOrdering Facility: [facility] Address: [address] [place], [place] [address] Performed By: #### 2 4323-8 ####[facility] [id number] [place] [address] [place] Protein [Mass/Vol] 6.6 g/dL Normal 6.3-8.0 [facility] Comment on above: Order Comment: Speci men Type: BLOOD SPECIMENOrdering Facility: [facility] Address: [address] [place] [address] Performed By: #### 2 4323-8 ####[facility] [id number] [place] [address] [place] Sodium [Moles/Vol] 135 mmol/L Low 136-144 [facility] Comment on above: Order Comment: Speci men Type: BLOOD SPECIMENOrdering Facility: [facility] Address: [address] [place] [address] Performed By: #### 2 4323-8 ####[facility] [id number] [place] [address] [place] Urea nitrogen [Mass/Vol] 19 mg/dL Normal 7-21 [facility] Comment on above: Order Comment: Speci men Type: BLOOD SPECIMENOrdering Facility: [facility] Address: [address] [place], [place] [address] Performed By: #### 2 4323-8 ####[facility] [id number] [place] [id number] [place] ECG COMPLETEon 08-07-2023 ECG COMPLETE Normal [facility] XR CHEST 2V FRONTAL/LATon XR CHEST 2V FRONTAL/LAT Normal [facility] XR Chest 2 [facility] CNPNon 08-06-2023 CNPN Normal [facility] ALLIED HEALTHon 08-02-2023 ALLIED HEALTH Normal [facility] CASE MANAGEMon 08-02-2023 CASE MANAGEM Normal [facility] CASE MANAGEM Normal [facility] CBC panel Auto (Bld)on 08-02 Erythrocyte distribution width (RBC) [Ratio] 12.1 % Normal 11.5-15.0 [facility] Comment on above: Order Comment: Speci men Type: BLOOD SPECIMENOrdering Facility: [facility] Address: [address] [place] [address] Performed By: #### 5 8410-2 ####[facility] [id number] [place] [address] [place] Hematocrit (Bld) [Volume fraction] 26.9 % Low 36.0-46.0 [facility] Comment on above: Order Comment: Speci men Type: BLOOD SPECIMENOrdering Facility: [facility] Address: [address] [place] [address] Performed By: #### 5 8410-2 ####[facility] [id number] [place] [address] [place] Hemoglobin (Bld) [Mass/Vol] 9.1 g/dL Low 11.5-15.5 [facility] Comment on above: Order Comment: Speci men Type: BLOOD SPECIMENOrdering Facility: [facility] Address: [address] [place] [address] Performed By: #### 5 8410-2 ####[facility] [id number] [place] [address] [place] MCH (RBC) [Entitic mass] 31.3 pg Normal 26.0-34.0 [facility] Comment on above: Order Comment: Speci men Type: BLOOD SPECIMENOrdering Facility: [facility] Address: [address] [place] [address] Performed By: #### 5 8410-2 ####[facility] [id number] [place] [address] [place] MCHC (RBC) [Mass/Vol] 33.8 g/dL Normal 30.5-36.0 [facility] Comment on above: Order Comment: Speci men Type: BLOOD SPECIMENOrdering Facility: [facility] Address: [address] [place] [address] Performed By: #### 5 8410-2 ####[facility] [id number] [place] [address] [place] MCV (RBC) [Entitic vol] 92.4 fL Normal 80.0-100.0 [facility] Comment on above: Order Comment: Speci men Type: BLOOD SPECIMENOrdering Facility: [facility] Address: [address] [place] [address] Performed By: #### 5 8410-2 ####[facility] [id number] [place] [address] [place] Nucleated RBC (Bld) [#/Vol] 10*3/uL Normal <0.01 [facility] Comment on above: Order Comment: Speci men Type: BLOOD SPECIMENOrdering Facility: [facility] Address: [address] [place] [address] Performed By: #### 5 8410-2 ####[facility] [id number] [place] [address] [place] Platelet mean volume (Bld) [Entitic vol] 10.0 fL Normal 9.0-12.7 [facility] Comment on above: Order Comment: Speci men Type: BLOOD SPECIMENOrdering Facility: [facility] Address: [address] [place] [address] Performed By: #### 5 8410-2 ####[facility] [id number] [place] [address] [place] Platelets (Bld) [#/Vol] 224 10*3/uL Normal 150-400 [facility] Comment on above: Order Comment: Speci men Type: BLOOD SPECIMENOrdering Facility: [facility] Address: [address] [place] [address] Performed By: #### 5 8410-2 ####[facility] [id number] [place] [address] [place] RBC (Bld) [#/Vol] 2.91 10*6/uL Low 3.90-5.20 [facility] Comment on above: Order Comment: Speci men Type: BLOOD SPECIMENOrdering Facility: [facility] Address: [address] [place] [address] Performed By: #### 5 8410-2 ####[facility] [id number] [place] [address] [place] WBC (Bld) [#/Vol] 6.35 10*3/uL Normal 3.70-11.00 [facility] Comment on above: Order Comment: Speci men Type: BLOOD SPECIMENOrdering Facility: [facility] Address: [address] [place] [address] Performed By: #### 5 8410-2 ####[facility] [id number] [place] [address] [place] Comprehensive metabolic 2000 panelon 08-02-2023 Albumin [Mass/Vol] 3.3 g/dL Low 3.9-4.9 [facility] Comment on above: Order Comment: Speci men Type: BLOOD SPECIMENOrdering Facility: [facility] Address: [address] [place] [address] Performed By: #### 2 4323-8, 56330-1 ####[facility] [id number] [id number] [address] [place] ALP [Catalytic activity/Vol] 60 U/L Normal 34-123 [facility] Comment on above: Order Comment: Speci men Type: BLOOD SPECIMENOrdering Facility: [facility] Address: [address] [place], [place] [address] Performed By: #### 2 4323-8, ####[facility] [id number] [place] [address] [place] ALT [Catalytic activity/Vol] 14 U/L Normal 7-38 [facility] Comment on above: Order Comment: Speci men Type: BLOOD SPECIMENOrdering Facility: [facility] Address: [address] [place] [address] Performed By: #### 2 4323-8, ####[facility] [id number] [place] [address] [place] Anion gap [Moles/Vol] 9 mmol/L Normal 9-18 [facility] [facility] Comment on above: Order Comment: Speci men Type: BLOOD SPECIMENOrdering Facility: [facility] Address: [address] [place] [address] Performed By: #### 2 4323-8, ####[facility] LABCL[facility] [id number] [place] [address] [place] AST [Catalytic activity/Vol] 19 U/L Normal 13-35 [facility] Comment on above: Order Comment: Speci men Type: BLOOD SPECIMENOrdering Facility: [facility] Address: [address] [place], [place] [address] Performed By: #### 2 4323-8, ####[facility] LABCL[facility] [id number] [place] [address] [place] Bilirubin [Mass/Vol] 0.5 mg/dL Normal 0.2-1.3 [facility] Comment on above: Order Comment: Speci men Type: BLOOD SPECIMENOrdering Facility: [facility] Address: [address] [place], [place] [address] Performed By: #### 2 4323-8, ####[facility]CL[facility] [id number] [place] [address] [place] Calcium [Mass/Vol] 9.8 mg/dL Normal 8.5-10.2 [facility] Comment on above: Order Comment: Speci men Type: BLOOD SPECIMENOrdering Facility: [facility] Address: [address] [place] [address] Performed By: #### 2 4322-8, ####[facility]CL[facility] [id number] [place] [address] [place] Chloride [Moles/Vol] 93 mmol/L Low 97-105 [facility] Comment on above: Order Comment: Speci men Type: BLOOD SPECIMENOrdering Facility: [facility] Address: [address] [place] [address] Performed By: #### 2 4322-8, ####[facility] [id number] [place] [address] [place] CO2 [Moles/Vol] 26 mmol/L Normal 22-30 [facility] Comment on above: Order Comment: Speci men Type: BLOOD SPECIMENOrdering Facility: [facility] Address: [address] [place], [place] [address] Performed By: #### 2 4322-8, ####[facility] LABCLIA [id number] [place] [id number] [place] Creatinine [Mass/Vol] 0.55 mg/dL Low 0.58-0.96 [facility] Comment on above: Order Comment: Speci men Type: BLOOD SPECIMENOrdering Facility: [facility] Address: [address] [place], [place] [address] Performed By: #### 2 432-8, ####[facility] LABIA [id number] [place] [address] [place] Creatinine and Glomerular filtration rate.predicted panel (S/P/Bld) 102 mL/min/1.73m??? Normal >=60 [facility] Comment on above: Order Comment: Specmarko stein Type: BLOOD SPECIMENOrdering Facility: [facility] Address: [address] [place] [address] Result Comment: Annelise mated Glomerular Filtration Rate [...] reflect actual GFR. Performed By: #### 2 4323-8, 65101-1 ####[facility] [id number] [place] [address] [place] Glucose [Mass/Vol] 224 mg/dL High 74-99 [facility] Comment on above: Order Comment: Phyllis stein Type: BLOOD SPECIMENOrdering Facility: [facility] Address: [address] [place] [address] Result Comment: The [place] [employer] (ADA) provides guidance for cutoff values for fasting glucose and random glucose. The ADA defines fasting as no caloric intake for at least 8 hours. Fasting plasma glucose results between 100 to 125 mg/dL indicate increased risk for diabetes (prediabetes).Fasting plasma glucose results greater than or equal to 126 mg/dL meet the criteria for diagnosis of diabetes. In the absence of unequivocal hyperglycemia, results should be confirmed by repeat testing. In a patient with classic symptoms of hyperglycemia or hyperglycemic crisis, random plasma glucose results greater than or equal to 200 mg/dL meet the criteria for diagnosis of diabetes.Reference: Standards of Medical Care in Diabetes 2016, [place] [employer]. Diabetes Care. 2016.39(Suppl 1). Performed By: #### 2 4323-8, 00836-8 ####[facility] LABIA [id number] [place] [address] [place] Potassium [Moles/Vol] 4.4 mmol/L Normal 3.7-5.1 [facility] Comment on above: Order Comment: Speci men Type: BLOOD SPECIMENOrdering Facility: [facility] Address: [address] [place] [address] Performed By: #### 2 4323-8, ####[facility]CL[facility] [id number] [place] [address] [place] Protein [Mass/Vol] 6.2 g/dL Low 6.3-8.0 [facility] Comment on above: Order Comment: Speci men Type: BLOOD SPECIMENOrdering Facility: [facility] Address: [address] [place] [address] Performed By: #### 2 4323-8, ####[facility]CL[facility] [id number] [place] [address] [place] Sodium [Moles/Vol] 128 mmol/L Low 136-144 [facility] Comment on above: Order Comment: Speci men Type: BLOOD SPECIMENOrdering Facility: [facility] Address: [address] [place] [address] Performed By: #### 2 4323-8, ####[facility]CL[facility] [id number] [place] [address] [place] Urea nitrogen [Mass/Vol] 13 mg/dL Normal 7-21 [facility] Comment on above: Order Comment: Speci men Type: BLOOD SPECIMENOrdering Facility: [facility] Address: [address] [place] [address] Performed By: #### 2 4323-8, ####[facility]CL[facility] [id number] [place] [address] [place] ECG COMPLETEon 08-02-2023 ECG COMPLETE Normal [facility] Magnesium SerPl-mCncon 08-02 Magnesium [Mass/Vol] 2.0 mg/dL Normal 1.7-2.3 [facility] Comment on above: Order Comment: Speci men Type: BLOOD SPECIMENOrdering Facility: [facility] Address: [address] [place] [address] Performed By: #### 2 4323-8, 80141-3 ####[facility]CL[facility] [id number] [place] [address] [place] THERAPY NTon 08-02-2023 THERAPY NT Normal [facility] THERAPY NT Normal [facility] XR CHEST 1V FRONTALon 2023 XR CHEST 1V FRONTAL Normal [facility] CASE MANAGEMon 08-01-2023 CASE MANAGEM Normal [facility] CBC panel Auto (Bld)on 08-01 Erythrocyte distribution width (RBC) [Ratio] 12.0 % Normal 11.5-15.0 [facility] Comment on above: Order Comment: Speci men Type: BLOOD SPECIMENOrdering Facility: [facility] Address: [address] [place] [address] Performed By: #### 5 8410-2 ####[facility] LABIA [id number] [place] [address] [place] Hematocrit (Bld) [Volume fraction] 30.5 % Low 36.0-46.0 [facility] Comment on above: Order Comment: Speci men Type: BLOOD SPECIMENOrdering Facility: [facility] Address: [address] [place] [address] Performed By: #### 5 8410-2 ####[facility] LABIA [id number] [place] [id number] [place] Hemoglobin (Bld) [Mass/Vol] 10.5 g/dL Low 11.5-15.5 [facility] Comment on above: Order Comment: Speci men Type: BLOOD SPECIMENOrdering Facility: [facility] Address: [address] [place] [address] Performed By: #### 5 8410-2 ####[facility] LABIA [id number] [place] [address] [place] MCH (RBC) [Entitic mass] 31.4 pg Normal 26.0-34.0 [facility] Comment on above: Order Comment: Speci men Type: BLOOD SPECIMENOrdering Facility: [facility] Address: [address] [place] [address] Performed By: #### 5 8410-2 ####[facility] LABIA [id number] [place] [address] [place] MCHC (RBC) [Mass/Vol] 34.4 g/dL Normal 30.5-36.0 [facility] Comment on above: Order Comment: Speci men Type: BLOOD SPECIMENOrdering Facility: [facility] Address: [address] [place] [address] Performed By: #### 5 8410-2 ####[facility] [id number] [place] [address] [place] MCV (RBC) [Entitic vol] 91.3 fL Normal 80.0-100.0 [facility] Comment on above: Order Comment: Speci men Type: BLOOD SPECIMENOrdering Facility: [facility] Address: [address] [place] [address] Performed By: #### 5 8410-2 ####[facility] [id number] [place] [address] [place] Nucleated RBC (Bld) [#/Vol] 10*3/uL Normal <0.01 [facility] Comment on above: Order Comment: Speci men Type: BLOOD SPECIMENOrdering Facility: [facility] Address: [address] [place] [address] Performed By: #### 5 8410-2 ####[facility] [id number] [place] [address] [place] Platelet mean volume (Bld) [Entitic vol] 9.9 fL Normal 9.0-12.7 [facility] Comment on above: Order Comment: Speci men Type: BLOOD SPECIMENOrdering Facility: [facility] Address: [address] [place] [address] Performed By: #### 5 8410-2 ####[facility]CL[facility] [id number] [place] [address] [place] Platelets (Bld) [#/Vol] 208 10*3/uL Normal 150-400 [facility] Comment on above: Order Comment: Speci men Type: BLOOD SPECIMENOrdering Facility: [facility] Address: [address] [place] [address] Performed By: #### 5 8410-2 ####[facility] LABIA [id number] [place] [address] [place] RBC (Bld) [#/Vol] 3.34 10*6/uL Low 3.90-5.20 [facility] Comment on above: Order Comment: Speci men Type: BLOOD SPECIMENOrdering Facility: [facility] Address: [address] [place] [address] Performed By: #### 5 8410-2 ####[facility] LABIA [id number] [place] [address] [place] WBC (Bld) [#/Vol] 9.03 10*3/uL Normal 3.70-11.00 [facility] Comment on above: Order Comment: Speci men Type: BLOOD SPECIMENOrdering Facility: [facility] Address: [address] [place] [address] Performed By: #### 5 8410-2 ####[facility]CL[facility] [id number] [place] [address] [place] CNDSon 08-01-2023 CNDS Normal [facility] Comprehensive metabolic 2000 panelon 08-01-2023 Albumin [Mass/Vol] 3.3 g/dL Low 3.9-4.9 [facility] Comment on above: Order Comment: Speci men Type: BLOOD SPECIMENOrdering Facility: [facility] Address: [address] [place] [address] Performed By: #### 1 9123-9, ####[facility]CL[facility] [id number] [place] [address] [place] ALP [Catalytic activity/Vol] 60 U/L Normal 34-123 [facility] Comment on above: Order Comment: Speci men Type: BLOOD SPECIMENOrdering Facility: [facility] Address: [address] [place] [address] Performed By: #### 1 9123-9, ####[facility]CL[facility] [id number] [place] [address] [place] ALT [Catalytic activity/Vol] 9 U/L Normal 7-38 [facility] Comment on above: Order Comment: Speci men Type: BLOOD SPECIMENOrdering Facility: [facility] Address: [address] [place] [address] Performed By: #### 1 9123-9, ####[facility]CL[facility] [id number] [place] [address] [place] Anion gap [Moles/Vol] 9 mmol/L Normal 9-18 [facility] Comment on above: Order Comment: Speci men Type: BLOOD SPECIMENOrdering Facility: [facility] Address: [address] [place] [address] Performed By: #### 1 9123-9, 67573-0 ####[facility]CL[facility] [id number] [place] [address] [place] AST [Catalytic activity/Vol] 9 U/L Low 13-35 [facility] Comment on above: Order Comment: Speci men Type: BLOOD SPECIMENOrdering Facility: [facility] Address: [address] [place] [address] Performed By: #### 1 9123-9, 65602-9 ####[facility]CL[facility] [id number] [place] [address] [place] Bilirubin [Mass/Vol] 0.6 mg/dL Normal 0.2-1.3 [facility] Comment on above: Order Comment: Speci men Type: BLOOD SPECIMENOrdering Facility: [facility] Address: [address] [place] [address] Performed By: #### 1 9123-9, ####[facility]CL[facility] [id number] [place] [address] [place] Calcium [Mass/Vol] 9.7 mg/dL Normal 8.5-10.2 [facility] Comment on above: Order Comment: Speci men Type: BLOOD SPECIMENOrdering Facility: [facility] Address: [address] [place] [address] Performed By: #### 1 239, ####[facility]CL[facility] [id number] [place] [address] [place] Chloride [Moles/Vol] 95 mmol/L Low 97-105 [facility] Comment on above: Order Comment: Speci men Type: BLOOD SPECIMENOrdering Facility: [facility] Address: [address] [place] [address] Performed By: #### 1 23-9, ####[facility]CL[facility] [id number] [place] [address] [place] CO2 [Moles/Vol] 27 mmol/L Normal 22-30 [facility] Comment on above: Order Comment: Speci men Type: BLOOD SPECIMENOrdering Facility: [facility] Address: [address] [place] [address] Performed By: #### 1 23-9, 33223-7 ####[facility]CL[facility] [id number] [place] [address] [place] Creatinine [Mass/Vol] 0.62 mg/dL Normal 0.58-0.96 [facility] Comment on above: Order Comment: Phyllis stein Type: BLOOD SPECIMENOrdering Facility: [facility] Address: [address] [place] [address] Performed By: #### 1 9123-9, ####[facility] LABIA [id number] [place] [address] [place] Creatinine and Glomerular filtration rate.predicted panel (S/P/Bld) 99 mL/min/1.73m??? Normal >=60 [facility] Comment on above: Order Comment: Phyllis stein Type: BLOOD SPECIMENOrdering Facility: [facility] Address: [address] [place] [address] Result Comment: Annelise mated Glomerular Filtration Rate [...] accurately reflect actual GFR. Performed By: #### 1 9123-9, ####[facility] LABIA [id number] [place] [address] [place] Glucose [Mass/Vol] 196 mg/dL High 74-99 [facility] Comment on above: Order Comment: Phyllis stein Type: BLOOD SPECIMENOrdering Facility: [facility] Address: [address] [place] [address] Result Comment: The [place] [employer] (ADA) provides guidance for cutoff values for fasting glucose and random glucose. The ADA defines fasting as no caloric intake for at least 8 hours. Fasting plasma glucose results between 100 to 125 mg/dL indicate increased risk for diabetes (prediabetes).Fasting plasma glucose results greater than or equal to 126 mg/dL meet the criteria for diagnosis of diabetes. In the absence of unequivocal hyperglycemia, results should be confirmed by repeat testing. In a patient with classic symptoms of hyperglycemia or hyperglycemic crisis, random plasma glucose results greater than or equal to 200 mg/dL meet the criteria for diagnosis of diabetes.Reference: Standards of Medical Care in Diabetes 2016, [place] [employer]. Diabetes Care. 2016.39(Suppl 1). Performed By: #### 1 9123-9, ####[facility] LABCL[facility] [id number] [place] [address] [place] Potassium [Moles/Vol] 4.2 mmol/L Normal 3.7-5.1 [facility] Comment on above: Order Comment: Speci men Type: BLOOD SPECIMENOrdering Facility: [facility] Address: [address] [place] [address] Performed By: #### 1 9123-9, ####[facility] LABCL[facility] [id number] [place] [address] [place] Protein [Mass/Vol] 6.0 g/dL Low 6.3-8.0 [facility] Comment on above: Order Comment: Speci men Type: BLOOD SPECIMENOrdering Facility: [facility] Address: [address] [place] [address] Performed By: #### 1 239, ####[facility] LABCL[facility] [id number] [place] [address] [place] Sodium [Moles/Vol] 131 mmol/L Low 136-144 [facility] Comment on above: Order Comment: Speci men Type: BLOOD SPECIMENOrdering Facility: [facility] Address: [address] [place] [address] Performed By: #### 1 23-9, ####[facility] LABCL[facility] [id number] [place] [id number] [place] Urea nitrogen [Mass/Vol] 12 mg/dL Normal 7-21 [facility] Comment on above: Order Comment: Speci men Type: BLOOD SPECIMENOrdering Facility: [facility] Address: [address] [place] [address] Performed By: #### 1 9123-9, 13106-0 ####[facility]CL[facility] [id number] [place] [address] [place] ECG COMPLETEon 08-01-2023 ECG COMPLETE Normal [facility] Magnesium SerPl-mCncon 08-01 Magnesium [Mass/Vol] 1.8 mg/dL Normal 1.7-2.[facility] Comment on above: Order Comment: Speci men Type: BLOOD SPECIMENOrdering Facility: [facility] Address: [address] [place] [address] Performed By: #### 1 9123-9, 86374-8 ####[facility] LABIA [id number] [place] [address] [place] XR CHEST 1V FRONTAL PORTon 0 08-01-2023 XR CHEST 1V FRONTAL PORT Normal [facility] CBC panel Auto (Bld)on 07-31 Erythrocyte distribution width (RBC) [Ratio] 12.0 % Normal 11.5-15.0 [facility] Comment on above: Order Comment: Speci men Type: BLOOD SPECIMENOrdering Facility: [facility] Address: [address] [place] [address] Performed By: #### 5 8410-2 ####[facility] LABIA [id number] [place] [address] [place] Hematocrit (Bld) [Volume fraction] 31.1 % Low 36.0-46.0 [facility] Comment on above: Order Comment: Speci men Type: BLOOD SPECIMENOrdering Facility: [facility] Address: [address] [place] [address] Performed By: #### 5 8410-2 ####[facility]CL[facility] [id number] [place] [address] [place] Hemoglobin (Bld) [Mass/Vol] 10.8 g/dL Low 11.5-15.5 [facility] Comment on above: Order Comment: Speci men Type: BLOOD SPECIMENOrdering Facility: [facility] Address: [address] [place] [address] Performed By: #### 5 8410-2 ####[facility]CL[facility] [id number] [place] [address] [place] MCH (RBC) [Entitic mass] 31.9 pg Normal 26.0-34.0 [facility] Comment on above: Order Comment: Speci men Type: BLOOD SPECIMENOrdering Facility: [facility] Address: [address] [place] [address] Performed By: #### 5 8410-2 ####[facility]CL[facility] [id number] [address] [place] MCHC (RBC) [Mass/Vol] 34.7 g/dL Normal 30.5-36.0 [facility] Comment on above: Order Comment: Speci men Type: BLOOD SPECIMENOrdering Facility: [facility] Address: [address] [place] [address] Performed By: #### 5 8410-2 ####[facility] LABIA [id number] [place] [address] [place] MCV (RBC) [Entitic vol] 91.7 fL Normal 80.0-100.0 [facility] Comment on above: Order Comment: Speci men Type: BLOOD SPECIMENOrdering Facility: [facility] Address: [address] [place] [address] Performed By: #### 5 8410-2 ####[facility] LABIA [id number] [place] [address] [place] Nucleated RBC (Bld) [#/Vol] 10*3/uL Normal <0.01 [facility] Comment on above: Order Comment: Speci men Type: BLOOD SPECIMENOrdering Facility: [facility] Address: [address] [place] [address] Performed By: #### 5 8410-2 ####[facility] LABIA [id number] [place] [address] [place] Platelet mean volume (Bld) [Entitic vol] 10.3 fL Normal 9.0-12.7 [facility] Comment on above: Order Comment: Speci men Type: BLOOD SPECIMENOrdering Facility: [facility] Address: [address] [place] [address] Performed By: #### 5 8410-2 ####[facility] LAB[facility] [id number] [place] [address] [place] Platelets (Bld) [#/Vol] 159 10*3/uL Normal 150-400 [facility] Comment on above: Order Comment: Speci men Type: BLOOD SPECIMENOrdering Facility: [facility] Address: [address] [place] [address] Performed By: #### 5 8410-2 ####[facility] LABIA [id number] [place] [address] [place] RBC (Bld) [#/Vol] 3.39 10*6/uL Low 3.90-5.20 [facility] Comment on above: Order Comment: Speci men Type: BLOOD SPECIMENOrdering Facility: [facility] Address: [address] [place] [address] Performed By: #### 5 8410-2 ####[facility] LAB[facility] [id number] [place] [address] [place] WBC (Bld) [#/Vol] 9.25 10*3/uL Normal 3.70-11.00 [facility] Comment on above: Order Comment: Speci men Type: BLOOD SPECIMENOrdering Facility: [facility] Address: [address] [place] [address] Performed By: #### 5 8410-2 ####[facility]CL[facility] [id number] [place] [address] [place] Comprehensive metabolic 2000 panelon 07-31-2023 Albumin [Mass/Vol] 2.9 g/dL Low 3.9-4.9 [facility] Comment on above: Order Comment: Speci men Type: BLOOD SPECIMENOrdering Facility: [facility] Address: [address] [place] [address] Performed By: #### 2 4323-8 ####[facility]CL[facility] [id number] [place] [address] [place] ALP [Catalytic activity/Vol] 54 U/L Normal 34-123 [facility] Comment on above: Order Comment: Speci men Type: BLOOD SPECIMENOrdering Facility: [facility] Address: [address] [place] [address] Performed By: #### 2 4323-8 ####[facility]CL[facility] [id number] [place] [address] [place] ALT [Catalytic activity/Vol] 10 U/L Normal 7-38 [facility] Comment on above: Order Comment: Speci men Type: BLOOD SPECIMENOrdering Facility: [facility] Address: [address] [place] [address] Performed By: #### 2 4323-8 ####[facility]CL[facility] [id number] [place] [address] [place] Anion gap [Moles/Vol] 9 mmol/L Normal 9-18 [facility] Comment on above: Order Comment: Speci men Type: BLOOD SPECIMENOrdering Facility: [facility] Address: [address] [place] [address] Performed By: #### 2 4323-8 ####[facility]CL[facility] [id number] [place] [address] [place] AST [Catalytic activity/Vol] 16 U/L Normal 13-35 [facility] Comment on above: Order Comment: Speci men Type: BLOOD SPECIMENOrdering Facility: [facility] Address: [address] [place] [address] Performed By: #### 2 4323-8 ####[facility]CL[facility] [id number] [address] [address] [place] Bilirubin [Mass/Vol] 0.7 mg/dL Normal 0.2-1.3 [facility] Comment on above: Order Comment: Speci men Type: BLOOD SPECIMENOrdering Facility: [facility] Address: [address] [place] [address] Performed By: #### 2 4323-8 ####[facility]CL[facility] [id number] [place] [address] [place] Calcium [Mass/Vol] 9.2 mg/dL Normal 8.5-10.2 [facility] Comment on above: Order Comment: Speci men Type: BLOOD SPECIMENOrdering Facility: [facility] Address: [address] [place], [place] [address] Performed By: #### 2 4323-8 ####[facility]CL[facility] [id number] [place] [address] [place] Chloride [Moles/Vol] 98 mmol/L Normal 97-105 [facility] Comment on above: Order Comment: Speci men Type: BLOOD SPECIMENOrdering Facility: [facility] Address: [address] [place] [address] Performed By: #### 2 4323-8 ####[facility] [id number] [place] [address] [place] [place] CO2 [Moles/Vol] 24 mmol/L Normal 22-30 [facility] Comment on above: Order Comment: Speci men Type: BLOOD SPECIMENOrdering Facility: [facility] Address: [address] [place] [address] Performed By: #### 2 4323-8 ####[facility] LABCLIA [id number] [address] [address] [place] Creatinine [Mass/Vol] 0.66 mg/dL Normal 0.58-0.96 [facility] Comment on above: Order Comment: Phyllis stein Type: BLOOD SPECIMENOrdering Facility: [facility] Address: [address] [place] [address] Performed By: #### 2 4323-8 ####[facility] LABIA [id number] [place] [address] [place] Creatinine and Glomerular filtration rate.predicted panel (S/P/Bld) 97 mL/min/1.73m??? Normal >=60 [facility] Comment on above: Order Comment: Phyllis stein Type: BLOOD SPECIMENOrdering Facility: [facility] Address: [address] [place] [address] Result Comment: Annelise mated Glomerular Filtration Rate [...] actual GFR. Performed By: #### 2 4323-8 ####[facility] LABIA [id number] [place] [address] [place] Glucose [Mass/Vol] 171 mg/dL High 74-99 [facility] Comment on above: Order Comment: Phyllis stein Type: BLOOD SPECIMENOrdering Facility: [facility] Address: [address] [place] [address] Result Comment: The [place] [employer] (ADA) provides guidance for cutoff values for fasting glucose and random glucose. The ADA defines fasting as no caloric intake for at least 8 hours. Fasting plasma glucose results between 100 to 125 mg/dL indicate increased risk for diabetes (prediabetes).Fasting plasma glucose results greater than or equal to 126 mg/dL meet the criteria for diagnosis of diabetes. In the absence of unequivocal hyperglycemia, results should be confirmed by repeat testing. In a patient with classic symptoms of hyperglycemia or hyperglycemic crisis, random plasma glucose results greater than or equal to 200 mg/dL meet the criteria for diagnosis of diabetes.Reference: Standards of Medical Care in Diabetes 2016, [place] [employer]. Diabetes Care. 2016.39(Suppl 1). Performed By: #### 2 4323-8 ####[facility] LABCLIA [id number] [place] [address] [place] Potassium [Moles/Vol] 4.4 mmol/L Normal 3.7-5.1 [facility] Comment on above: Order Comment: Speci men Type: BLOOD SPECIMENOrdering Facility: [facility] Address: [address] [place] [address] Performed By: #### 2 4323-8 ####[facility] LABCLIA [id number] [place] [address] [place] Protein [Mass/Vol] 5.5 g/dL Low 6.3-8.0 [facility] Comment on above: Order Comment: Speci men Type: BLOOD SPECIMENOrdering Facility: [facility] Address: [address] [place] [address] Performed By: #### 2 4323-8 ####[facility] LABCLIA [id number] [place] [address] [place] Sodium [Moles/Vol] 131 mmol/L Low 136-144 [facility] Comment on above: Order Comment: Speci men Type: BLOOD SPECIMENOrdering Facility: [facility] Address: [address] [place] [address] Performed By: #### 2 4323-8 ####[facility] LABCLIA [id number] [place] [address] [place] Urea nitrogen [Mass/Vol] 12 mg/dL Normal 7-21 [facility] Comment on above: Order Comment: Speci men Type: BLOOD SPECIMENOrdering Facility: [facility] Address: [address] [place] [address] Performed By: #### 2 4323-8 ####[facility] LABIA [id number] [place] [address] [place] NURSING PROGon 07-31-2023 NURSING PROG Normal [facility] XR CHEST 1V FRONTAL PORTon 0 07-31-2023 XR CHEST 1V FRONTAL PORT Normal [facility] ARTERIAL BLOOD GASESon 07-30 Base excess Calc (Bld) [Moles/Vol] 2 mmol/L Normal 0-2 [facility] Comment on above: Order Comment: Speci men Type: ARTERIAL BLOOD SPECIMENOrdering Facility: [facility] Address: [address] [place] [address] Performed By: #### A LLBG ####[facility] LABIA [id number] [place] [address] [place] Body temperature 98.6 [degF] Normal [facility] Comment on above: Order Comment: Speci men Type: ARTERIAL BLOOD SPECIMENOrdering Facility: [facility] Address: [address] [place] [address] Performed By: #### A LLBG ####[facility] LABIA [id number] [place] [address] [place] Calcium.ionized (Bld) [Mass/Vol] 1.22 mmol/L Normal 1.08-1.30 [facility] Comment on above: Order Comment: Speci men Type: ARTERIAL BLOOD SPECIMENOrdering Facility: [facility] Address: [address] [place] [address] Performed By: #### A LLBG ####[facility] LABIA [id number] [place] [address] [place] Calcium.ionized adjusted to pH 7.4 (BldA) [Moles/Vol] 1.26 mmol/L Normal 1.08-1.30 [facility] Comment on above: Order Comment: Speci men Type: ARTERIAL BLOOD SPECIMENOrdering Facility: [facility] Address: [address] [place] [address] Performed By: #### A LLBG ####[facility] LABCLIA [id number] [place] [address] [place] Carboxyhemoglobin (BldA) [Mass fraction] 1.8 % Normal 0.0-2.0 [facility] Comment on above: Order Comment: Speci men Type: ARTERIAL BLOOD SPECIMENOrdering Facility: [facility] Address: [address] [place] [address] Result Comment: Carb oxyhemoglobin Reference Range for Smokers: 2.0-8.0% Performed By: #### A LLBG ####[facility] LABCLIA [id number] [place] [address] [place] CO2 (Bld) [Partial pressure] 37 mm Hg Normal 36-46 [facility] Comment on above: Order Comment: Speci men Type: ARTERIAL BLOOD SPECIMENOrdering Facility: [facility] Address: [address] [place] [address] Performed By: #### A LLBG ####[facility] LABCLIA [id number] [place] [address] [place] Glucose [Mass/Vol] 146 mg/dL High 60-105 [facility] Comment on above: Order Comment: Speci men Type: ARTERIAL BLOOD SPECIMENOrdering Facility: [facility] Address: [address] [place] [address] Performed By: #### A LLBG ####[facility] LABCLIA [id number] [place] [address] [place] HCO3 (Bld) [Moles/Vol] 26 mmol/L Normal 22-26 [facility] Comment on above: Order Comment: Speci men Type: ARTERIAL BLOOD SPECIMENOrdering Facility: [facility] Address: [address] [place] [address] Performed By: #### A LLBG ####[facility] LABCLIA [id number] [place] [address] [place] Hematocrit (Bld) [Volume fraction] 34.4 % Low 36.0-46.0 [facility] Comment on above: Order Comment: Speci men Type: ARTERIAL BLOOD SPECIMENOrdering Facility: [facility] Address: [address] [place] [address] Performed By: #### A LLBG ####[facility] LABCLIA [id number] [place] [address] [place] Hemoglobin (Bld) [Mass/Vol] 11.1 g/dL Low 11.5-15.5 [facility] Comment on above: Order Comment: Speci men Type: ARTERIAL BLOOD SPECIMENOrdering Facility: [facility] Address: [address] [place] [address] Performed By: #### A LLBG ####[facility] LABIA [id number] [place] [address] [place] Lactate [Moles/Vol] 0.9 mmol/L Normal 0.5-2.2 [facility] Comment on above: Order Comment: Speci men Type: ARTERIAL BLOOD SPECIMENOrdering Facility: [facility] Address: [address] [place] [address] Performed By: #### A LLBG ####[facility] LABIA [id number] [place] [address] [place] LITERS 1 Liters/min Normal [facility] Comment on above: Order Comment: Speci men Type: ARTERIAL BLOOD SPECIMENOrdering Facility: [facility] Address: [address] [place] [address] Performed By: #### A LLBG ####[facility] LABCLIA [id number] [place] [address] [place] Methemoglobin (Bld) [Mass fraction] 1.4 % Normal 0.0-1.5 [facility] Comment on above: Order Comment: Speci men Type: ARTERIAL BLOOD SPECIMENOrdering Facility: [facility] Address: [address] [place] [address] Performed By: #### A LLBG ####[facility] LABCLIA [id number] [place] [address] [place] O2 THERAPY NC = Nasal Cannula Normal [facility] Comment on above: Order Comment: Speci men Type: ARTERIAL BLOOD SPECIMENOrdering Facility: [facility] Address: [address] [place] [address] Performed By: #### A LLBG ####[facility] LABCLIA [id number] [place] [address] [place] Oxygen (Bld) [Partial pressure] 87 mm Hg Normal 85-95 [facility] Comment on above: Order Comment: Speci men Type: ARTERIAL BLOOD SPECIMENOrdering Facility: [facility] Address: [address] [place] [address] Performed By: #### A LLBG ####[facility] LABCLIA [id number] [place] [address] [place] Oxyhemoglobin (BldA) [Mass fraction] 94 % Low 95-98 [facility] Comment on above: Order Comment: Speci men Type: ARTERIAL BLOOD SPECIMENOrdering Facility: [facility] Address: [address] [place] [address] Performed By: #### A LLBG ####[facility] LABCLIA [id number] [place] [id number] [place] pH (Bld) 7.46 [pH] High 7.35-7.45 [facility] Comment on above: Order Comment: Speci men Type: ARTERIAL BLOOD SPECIMENOrdering Facility: [facility] Address: [address] [place] [address] Performed By: #### A LLBG ####[facility] LABCLIA [id number] [place] [id number] [place] Potassium [Moles/Vol] 4.3 mmol/L Normal 3.5-5.0 [facility] Comment on above: Order Comment: Speci men Type: ARTERIAL BLOOD SPECIMENOrdering Facility: [facility] Address: [address] [place] [address] Performed By: #### A LLBG ####[facility] LABCLIA [id number] [place] [address] [place] Sodium [Moles/Vol] 128 mmol/L Low 136-144 [facility] Comment on above: Order Comment: Speci men Type: ARTERIAL BLOOD SPECIMENOrdering Facility: [facility] Address: [address] [place] [address] Performed By: #### A LLBG ####[facility] LABCLIA [id number] [place] [address] [place] Base excess Calc (Bld) [Moles/Vol] 2 mmol/L Normal 0-2 [facility] Comment on above: Order Comment: Speci men Type: ARTERIAL BLOOD SPECIMENOrdering Facility: [facility] Address: [address] [place] [address] Performed By: #### A LLBG ####[facility] LABCLIA [id number] [place] [address] [place] Body temperature 98.6 [degF] Normal [facility] Comment on above: Order Comment: Speci men Type: ARTERIAL BLOOD SPECIMENOrdering Facility: [facility] Address: [address] [place] [address] Performed By: #### A LLBG ####[facility] LABCLIA [id number] [place] [address] [place] Calcium.ionized (Bld) [Mass/Vol] 1.21 mmol/L Normal 1.08-1.30 [facility] Comment on above: Order Comment: Speci men Type: ARTERIAL BLOOD SPECIMENOrdering Facility: [facility] Address: [address] [place] [address] Performed By: #### A LLBG ####[facility] LABIA [id number] [place] [address] [place] Calcium.ionized adjusted to pH 7.4 (BldA) [Moles/Vol] 1.23 mmol/L Normal 1.08-1.30 [facility] Comment on above: Order Comment: Speci men Type: ARTERIAL BLOOD SPECIMENOrdering Facility: [facility] Address: [address] [place] [address] Performed By: #### A LLBG ####[facility] LABIA [id number] [place] [address] [place] Carboxyhemoglobin (BldA) [Mass fraction] 1.6 % Normal 0.0-2.0 [facility] Comment on above: Order Comment: Speci men Type: ARTERIAL BLOOD SPECIMENOrdering Facility: [facility] Address: [address] [place] [address] Result Comment: Carb oxyhemoglobin Reference Range for Smokers: 2.0-8.0% Performed By: #### A LLBG ####[facility] LABIA [id number] [place] [address] [place] CO2 (Bld) [Partial pressure] 39 mm Hg Normal 36-46 [facility] Comment on above: Order Comment: Speci men Type: ARTERIAL BLOOD SPECIMENOrdering Facility: [facility] Address: [address] [place] [address] Performed By: #### A LLBG ####[facility] LABIA [id number] [place] [address] [place] Glucose [Mass/Vol] 168 mg/dL High 60-105 [facility] Comment on above: Order Comment: Speci men Type: ARTERIAL BLOOD SPECIMENOrdering Facility: [facility] Address: [address] [place] [address] Performed By: #### A LLBG ####[facility] LABCLIA [id number] [place] [address] [place] HCO3 (Bld) [Moles/Vol] 26 mmol/L Normal 22-26 [facility] Comment on above: Order Comment: Speci men Type: ARTERIAL BLOOD SPECIMENOrdering Facility: [facility] Address: [address] [place] [address] Performed By: #### A LLBG ####[facility] LABCLIA [id number] [place] [address] [place] Hematocrit (Bld) [Volume fraction] 35.0 % Low 36.0-46.0 [facility] Comment on above: Order Comment: Speci men Type: ARTERIAL BLOOD SPECIMENOrdering Facility: [facility] Address: [address] [place] [address] Performed By: #### A LLBG ####[facility] LABCLIA [id number] [place] [address] [place] Hemoglobin (Bld) [Mass/Vol] 11.4 g/dL Low 11.5-15.5 [facility] Comment on above: Order Comment: Speci men Type: ARTERIAL BLOOD SPECIMENOrdering Facility: [facility] Address: [address] [place] [address] Performed By: #### A LLBG ####[facility] LABCLIA [id number] [place] [address] [place] Lactate [Moles/Vol] 1.0 mmol/L Normal 0.5-2.2 [facility] Comment on above: Order Comment: Speci men Type: ARTERIAL BLOOD SPECIMENOrdering Facility: [facility] Address: [address] [place] [address] Performed By: #### A LLBG ####[facility] LABCLIA [id number] [place] [address] [place] LITERS 1 Liters/min Normal [facility] Comment on above: Order Comment: Speci men Type: ARTERIAL BLOOD SPECIMENOrdering Facility: [facility] Address: [address] [place] [address] Performed By: #### A LLBG ####[facility] LABCLIA [id number] [address] [address] [place] Methemoglobin (Bld) [Mass fraction] 1.4 % Normal 0.0-1.5 [facility] Comment on above: Order Comment: Speci men Type: ARTERIAL BLOOD SPECIMENOrdering Facility: [facility] Address: [address] [place] [id number] Performed By: #### A LLBG ####[facility] LABCLIA [id number] [place] [id number] [place] O2 THERAPY NC = Nasal Cannula Normal [facility] Comment on above: Order Comment: Speci men Type: ARTERIAL BLOOD SPECIMENOrdering Facility: [facility] Address: [address] [place] [id number] Performed By: #### A LLBG ####[facility] LABCLIA [id number] [place] [id number] [place] Oxygen (Bld) [Partial pressure] 99 mm Hg High 85-95 [facility] Comment on above: Order Comment: Speci men Type: ARTERIAL BLOOD SPECIMENOrdering Facility: [facility] Address: [address] [place] [id number] Performed By: #### A LLBG ####[facility] LABCLIA [id number] [address] [address] [place] Oxyhemoglobin (BldA) [Mass fraction] 95 % Normal 95-98 [facility] Comment on above: Order Comment: Speci men Type: ARTERIAL BLOOD SPECIMENOrdering Facility: [facility] Address: [address] [place] [id number] Performed By: #### A LLBG ####[facility] LABCLIA [id number] [address] [address] [place] pH (Bld) 7.43 [pH] Normal 7.35-7.45 [facility] Comment on above: Order Comment: Speci men Type: ARTERIAL BLOOD SPECIMENOrdering Facility: [facility] Address: [address] [place] [address] Performed By: #### A LLBG ####[facility] LABCLIA [id number] [place] [address] [place] Potassium [Moles/Vol] 4.2 mmol/L Normal 3.5-5.0 [facility] Comment on above: Order Comment: Speci men Type: ARTERIAL BLOOD SPECIMENOrdering Facility: [facility] Address: [address] [place] [address] Performed By: #### A LLBG ####[facility] LABCLIA [id number] [place] [address] [place] Sodium [Moles/Vol] 128 mmol/L Low 136-144 [facility] Comment on above: Order Comment: Speci men Type: ARTERIAL BLOOD SPECIMENOrdering Facility: [facility] Address: [address] [place] [address] Performed By: #### A LLBG ####[facility] LABCLIA [id number] [place] [address] [place] Base excess Calc (Bld) [Moles/Vol] 1 mmol/L Normal 0-2 [facility] Comment on above: Order Comment: Speci men Type: ARTERIAL BLOOD SPECIMENOrdering Facility: [facility] Address: [address] [place] [address] Performed By: #### A LLBG ####[facility] LABCLIA [id number] [place] [address] [place] Body temperature 98.6 [degF] Normal [facility] Comment on above: Order Comment: Speci men Type: ARTERIAL BLOOD SPECIMENOrdering Facility: [facility] Address: [address] [place] [address] Performed By: #### A LLBG ####[facility] LABIA [id number] [place] [address] [place] Calcium.ionized (Bld) [Mass/Vol] 1.24 mmol/L Normal 1.08-1.30 [facility] Comment on above: Order Comment: Speci men Type: ARTERIAL BLOOD SPECIMENOrdering Facility: [facility] Address: [address] [place] [address] Performed By: #### A LLBG ####[facility] [id number] [place] [address] [place] Calcium.ionized adjusted to pH 7.4 (BldA) [Moles/Vol] 1.26 mmol/L Normal 1.08-1.30 [facility] Comment on above: Order Comment: Speci men Type: ARTERIAL BLOOD SPECIMENOrdering Facility: [facility] Address: [address] [place] [address] Performed By: #### A LLBG ####[facility] [id number] [place] [address] [place] Carboxyhemoglobin (BldA) [Mass fraction] 1.9 % Normal 0.0-2.0 [facility] Comment on above: Order Comment: Speci men Type: ARTERIAL BLOOD SPECIMENOrdering Facility: [facility] Address: [address] [place] [address] Result Comment: Carb oxyhemoglobin Reference Range for Smokers: 2.0-8.0% Performed By: #### A LLBG ####[facility] [id number] [place] [address] [place] CO2 (Bld) [Partial pressure] 38 mm Hg Normal 36-46 [facility] Comment on above: Order Comment: Speci men Type: ARTERIAL BLOOD SPECIMENOrdering Facility: [facility] Address: [address] [place] [address] Performed By: #### A LLBG ####[facility] LABCLIA [id number] [place] [address] [place] Glucose [Mass/Vol] 161 mg/dL High 60-105 [facility] Comment on above: Order Comment: Speci men Type: ARTERIAL BLOOD SPECIMENOrdering Facility: [facility] Address: [address] [place] [address] Performed By: #### A LLBG ####[facility] LABCL[facility] [id number] [place] [address] [place] HCO3 (Bld) [Moles/Vol] 25 mmol/L Normal 22-26 [facility] Comment on above: Order Comment: Speci men Type: ARTERIAL BLOOD SPECIMENOrdering Facility: [facility] Address: [address] [place] [address] Performed By: #### A LLBG ####[facility] LABCL[facility] [id number] [place] [address] [place] Hematocrit (Bld) [Volume fraction] 35.9 % Low 36.0-46.0 [facility] Comment on above: Order Comment: Speci men Type: ARTERIAL BLOOD SPECIMENOrdering Facility: [facility] Address: [address] [place] [address] Performed By: #### A LLBG ####[facility]CL[facility] [id number] [place] [address] [place] Hemoglobin (Bld) [Mass/Vol] 11.7 g/dL Normal 11.5-15.5 [facility] Comment on above: Order Comment: Speci men Type: ARTERIAL BLOOD SPECIMENOrdering Facility: [facility] Address: [address] [place] [address] Performed By: #### A LLBG ####[facility]CL[facility] [id number] [place] [address] [place] Lactate [Moles/Vol] 0.9 mmol/L Normal 0.5-2.2 [facility] Comment on above: Order Comment: Speci men Type: ARTERIAL BLOOD SPECIMENOrdering Facility: [facility] Address: [address] [place] [address] Performed By: #### A LLBG ####[facility]CL[facility] [id number] [place] [address] [place] L[place] 1 Liters/min Normal [facility] Comment on above: Order Comment: Speci men Type: ARTERIAL BLOOD SPECIMENOrdering Facility: [facility] Address: [address] [place] [address] Performed By: #### A LLBG ####[facility]CL[facility] [id number] [place] [address] [place] Methemoglobin (Bld) [Mass fraction] 0.7 % Normal 0.0-1.5 [facility] Comment on above: Order Comment: Speci men Type: ARTERIAL BLOOD SPECIMENOrdering Facility: [facility] Address: [address] [place] [address] Performed By: #### A LLBG ####[facility]CL[facility] [id number] [place] [address] [place] O2 THERAPY NC = Nasal Cannula Normal [facility] Comment on above: Order Comment: Speci men Type: ARTERIAL BLOOD SPECIMENOrdering Facility: [facility] Address: [address] [place] [address] Performed By: #### A LLBG ####[facility]CL[facility] [id number] [place] [address] [place] Oxygen (Bld) [Partial pressure] 77 mm Hg Low 85-95 [facility] Comment on above: Order Comment: Speci men Type: ARTERIAL BLOOD SPECIMENOrdering Facility: [facility] Address: [address] [place], [place] [address] Performed By: #### A LLBG ####[facility]CL[facility] [id number] [place] [address] [place] Oxyhemoglobin (BldA) [Mass fraction] 94 % Low 95-98 [facility] Comment on above: Order Comment: Speci men Type: ARTERIAL BLOOD SPECIMENOrdering Facility: [facility] Address: [address] [place], [place] [id number] Performed By: #### A LLBG ####[facility]CL[facility] [id number] [place] [address] [place] pH (Bld) 7.42 [pH] Normal 7.35-7.45 [facility] Comment on above: Order Comment: Speci men Type: ARTERIAL BLOOD SPECIMENOrdering Facility: [facility] Address: [address] [place] [address] Performed By: #### A LLBG ####[facility]CL[facility] [id number] [place] [address] [place] Potassium [Moles/Vol] 3.9 mmol/L Normal 3.5-5.0 [facility] Comment on above: Order Comment: Speci men Type: ARTERIAL BLOOD SPECIMENOrdering Facility: [facility] Address: [address] [place] [address] Performed By: #### A LLBG ####[facility]CL[facility] [id number] [place] [address] [place] Sodium [Moles/Vol] 129 mmol/L Low 136-144 [facility] Comment on above: Order Comment: Speci men Type: ARTERIAL BLOOD SPECIMENOrdering Facility: [facility] Address: [address] [place] [address] Performed By: #### A LLBG ####[facility] LABCL[facility] [id number] [place] [address] [place] Base excess Calc (Bld) [Moles/Vol] 0 mmol/L Normal 0-2 [facility] Comment on above: Order Comment: Speci men Type: ARTERIAL BLOOD SPECIMENOrdering Facility: [facility] Address: [address] [place] [address] Performed By: #### A LLBG ####[facility] [id number] [place] [address] [place] Body temperature 98.6 [degF] Normal [facility] Comment on above: Order Comment: Speci men Type: ARTERIAL BLOOD SPECIMENOrdering Facility: [facility] Address: [address] [place] [address] Performed By: #### A LLBG ####[facility] [id number] [place] [address] [place] Calcium.ionized (Bld) [Mass/Vol] 1.24 mmol/L Normal 1.08-1.30 [facility] Comment on above: Order Comment: Speci men Type: ARTERIAL BLOOD SPECIMENOrdering Facility: [facility] Address: [address] [place] [address] Performed By: #### A LLBG ####[facility] [id number] [place] [address] [place] Calcium.ionized adjusted to pH 7.4 (BldA) [Moles/Vol] 1.25 mmol/L Normal 1.08-1.30 [facility] Comment on above: Order Comment: Speci men Type: ARTERIAL BLOOD SPECIMENOrdering Facility: [facility] Address: [address] [place] [address] Performed By: #### A LLBG ####[facility] [id number] [place] [address] [place] Carboxyhemoglobin (BldA) [Mass fraction] 1.1 % Normal 0.0-2.0 [facility] Comment on above: Order Comment: Speci men Type: ARTERIAL BLOOD SPECIMENOrdering Facility: [facility] Address: [address] [place] [address] Result Comment: Carb oxyhemoglobin Reference Range for Smokers: 2.0-8.0% Performed By: #### A LLBG ####[facility]CL[facility] [id number] [place] [address] [place] CO2 (Bld) [Partial pressure] 38 mm Hg Normal 36-46 [facility] Comment on above: Order Comment: Speci men Type: ARTERIAL BLOOD SPECIMENOrdering Facility: [facility] Address: [address] [place] [address] Performed By: #### A LLBG ####[facility]CL[facility] [id number] [place] [address] [place] Glucose [Mass/Vol] 137 mg/dL High 60-105 [facility] Comment on above: Order Comment: Speci men Type: ARTERIAL BLOOD SPECIMENOrdering Facility: [facility] Address: [address] [place] [address] Performed By: #### A LLBG ####[facility] [id number] [place] [address] [place] HCO3 (Bld) [Moles/Vol] 24 mmol/L Normal 22-26 [facility] Comment on above: Order Comment: Speci men Type: ARTERIAL BLOOD SPECIMENOrdering Facility: [facility] Address: [address] [place] [address] Performed By: #### A LLBG ####[facility]CL[facility] [id number] [place] [address] [place] Hematocrit (Bld) [Volume fraction] 35.6 % Low 36.0-46.0 [facility] Comment on above: Order Comment: Speci men Type: ARTERIAL BLOOD SPECIMENOrdering Facility: [facility] Address: [address] [place] [address] Performed By: #### A LLBG ####[facility]CL[facility] [id number] [place] [address] [place] Hemoglobin (Bld) [Mass/Vol] 11.5 g/dL Normal 11.5-15.5 [facility] Comment on above: Order Comment: Speci men Type: ARTERIAL BLOOD SPECIMENOrdering Facility: [facility] Address: [address] [place] [address] Performed By: #### A LLBG ####[facility]CL[facility] [id number] [place] [address] [place] Lactate [Moles/Vol] 0.9 mmol/L Normal 0.5-2.2 [facility] Comment on above: Order Comment: Speci men Type: ARTERIAL BLOOD SPECIMENOrdering Facility: [facility] Address: [address] [place] [address] Performed By: #### A LLBG ####[facility]CL[facility] [id number] [place] [address] [place] LITERS 1 Liters/min Normal [facility] Comment on above: Order Comment: Speci men Type: ARTERIAL BLOOD SPECIMENOrdering Facility: [facility] Address: [address] [place] [address] Performed By: #### A LLBG ####[facility] [id number] [place] [address] [place] Methemoglobin (Bld) [Mass fraction] 1.2 % Normal 0.0-1.5 [facility] Comment on above: Order Comment: Speci men Type: ARTERIAL BLOOD SPECIMENOrdering Facility: [facility] Address: [address] [place] [address] Performed By: #### A LLBG ####[facility]CL[facility] [id number] [place] [address] [place] O2 THERAPY NC = Nasal Cannula Normal [facility] Comment on above: Order Comment: Speci men Type: ARTERIAL BLOOD SPECIMENOrdering Facility: [facility] Address: [address] [place] [address] Performed By: #### A LLBG ####[facility] [id number] [place] [address] [place] Oxygen (Bld) [Partial pressure] 98 mm Hg High 85-95 [facility] Comment on above: Order Comment: Speci men Type: ARTERIAL BLOOD SPECIMENOrdering Facility: [facility] Address: [address] [place] [address] Performed By: #### A LLBG ####[facility]CL[facility] [id number] [place] [address] [place] Oxyhemoglobin (BldA) [Mass fraction] 95 % Normal 95-98 [facility] Comment on above: Order Comment: Speci men Type: ARTERIAL BLOOD SPECIMENOrdering Facility: [facility] Address: [address] [place] [address] Performed By: #### A LLBG ####[facility] [id number] [place] [address] [place] pH (Bld) 7.41 [pH] Normal 7.35-7.45 [facility] Comment on above: Order Comment: Speci men Type: ARTERIAL BLOOD SPECIMENOrdering Facility: [facility] Address: [address] [place] [address] Performed By: #### A LLBG ####[facility] [id number] [place] [address] [place] Potassium [Moles/Vol] 4.2 mmol/L Normal 3.5-5.0 [facility] Comment on above: Order Comment: Speci men Type: ARTERIAL BLOOD SPECIMENOrdering Facility: [facility] Address: [address] [place] [address] Performed By: #### A LLBG ####[facility] LABIA [id number] [place] [address] [place] Sodium [Moles/Vol] 129 mmol/L Low 136-144 [facility] Comment on above: Order Comment: Speci men Type: ARTERIAL BLOOD SPECIMENOrdering Facility: [facility] Address: [address] [place] [address] Performed By: #### A LLBG ####[facility] [id number] [place] [address] [place] Base excess Calc (Bld) [Moles/Vol] 2 mmol/L Normal 0-2 [facility] Comment on above: Order Comment: Speci men Type: ARTERIAL BLOOD SPECIMENOrdering Facility: [facility] Address: [address] [place] [address] Performed By: #### A LLBG ####[facility] LABIA [id number] [place] [address] [place] Body temperature 98.6 [degF] Normal [facility] Comment on above: Order Comment: Speci men Type: ARTERIAL BLOOD SPECIMENOrdering Facility: [facility] Address: [address] [place] [address] Performed By: #### A LLBG ####[facility] LABIA [id number] [place] [address] [place] Calcium.ionized (Bld) [Mass/Vol] 1.26 mmol/L Normal 1.08-1.30 [facility] Comment on above: Order Comment: Speci men Type: ARTERIAL BLOOD SPECIMENOrdering Facility: [facility] Address: [address] [place] [address] Performed By: #### A LLBG ####[facility] [id number] [place] [address] [place] Calcium.ionized adjusted to pH 7.4 (BldA) [Moles/Vol] 1.28 mmol/L Normal 1.08-1.30 [facility] Comment on above: Order Comment: Speci men Type: ARTERIAL BLOOD SPECIMENOrdering Facility: [facility] Address: [address] [place] [address] Performed By: #### A LLBG ####[facility]CL[facility] [id number] [place] [address] [place] Carboxyhemoglobin (BldA) [Mass fraction] 1.8 % Normal 0.0-2.0 [facility] Comment on above: Order Comment: Speci men Type: ARTERIAL BLOOD SPECIMENOrdering Facility: [facility] Address: [address] [place] [address] Result Comment: Carb oxyhemoglobin Reference Range for Smokers: 2.0-8.0% Performed By: #### A LLBG ####[facility]CL[facility] [id number] [place] [address] [place] CO2 (Bld) [Partial pressure] 40 mm Hg Normal 36-46 [facility] Comment on above: Order Comment: Speci men Type: ARTERIAL BLOOD SPECIMENOrdering Facility: [facility] Address: [address] [place] [address] Performed By: #### A LLBG ####[facility]CL[facility] [id number] [place] [address] [place] Glucose [Mass/Vol] 118 mg/dL High 60-105 [facility] Comment on above: Order Comment: Speci men Type: ARTERIAL BLOOD SPECIMENOrdering Facility: [facility] Address: [address] [place] [address] Performed By: #### A LLBG ####[facility]CL[facility] [id number] [place] [address] [place] HCO3 (Bld) [Moles/Vol] 26 mmol/L Normal 22-26 [facility] Comment on above: Order Comment: Speci men Type: ARTERIAL BLOOD SPECIMENOrdering Facility: [facility] Address: [address] [place] [address] Performed By: #### A LLBG ####[facility]CL[facility] [id number] [place] [address] [place] Hematocrit (Bld) [Volume fraction] 37.5 % Normal 36.0-46.0 [facility] Comment on above: Order Comment: Speci men Type: ARTERIAL BLOOD SPECIMENOrdering Facility: [facility] Address: [address] [place] [address] Performed By: #### A LLBG ####[facility]CL[facility] [id number] [place] [address] [place] Hemoglobin (Bld) [Mass/Vol] 12.2 g/dL Normal 11.5-15.5 [facility] Comment on above: Order Comment: Speci men Type: ARTERIAL BLOOD SPECIMENOrdering Facility: [facility] Address: [address] [place] [address] Performed By: #### A LLBG ####[facility]CL[facility] [id number] [place] [address] [place] Lactate [Moles/Vol] 1.6 mmol/L Normal 0.5-2.2 [facility] Comment on above: Order Comment: Speci men Type: ARTERIAL BLOOD SPECIMENOrdering Facility: [facility] Address: [address] [place] [address] Performed By: #### A LLBG ####[facility]CL[facility] [id number] [place] [address] [place] Methemoglobin (Bld) [Mass fraction] 1.3 % Normal 0.0-1.5 [facility] Comment on above: Order Comment: Speci men Type: ARTERIAL BLOOD SPECIMENOrdering Facility: [facility] Address: [address] [place] [address] Performed By: #### A LLBG ####[facility]CL[facility] [id number] [place] [address] [place] O2 THERAPY NC = Nasal Cannula Normal [facility] Comment on above: Order Comment: Speci men Type: ARTERIAL BLOOD SPECIMENOrdering Facility: [facility] Address: [address] [place] [address] Performed By: #### A LLBG ####[facility]CL[facility] [id number] [place] [address] [place] Oxygen (Bld) [Partial pressure] 85 mm Hg Normal 85-95 [facility] Comment on above: Order Comment: Speci men Type: ARTERIAL BLOOD SPECIMENOrdering Facility: [facility] Address: [address] [place] [address] Performed By: #### A LLBG ####[facility] [id number] [place] [address] [place] Oxyhemoglobin (BldA) [Mass fraction] 94 % Low 95-98 [facility] Comment on above: Order Comment: Speci men Type: ARTERIAL BLOOD SPECIMENOrdering Facility: [facility] Address: [address] [place] [address] Performed By: #### A LLBG ####[facility] LABIA [id number] [place] [address] [place] pH (Bld) 7.42 [pH] Normal 7.35-7.45 [facility] Comment on above: Order Comment: Speci men Type: ARTERIAL BLOOD SPECIMENOrdering Facility: [facility] Address: [address] [place] [address] Performed By: #### A LLBG ####[facility] LABIA [id number] [place] [address] [place] Potassium [Moles/Vol] 4.4 mmol/L Normal 3.5-5.0 [facility] Comment on above: Order Comment: Speci men Type: ARTERIAL BLOOD SPECIMENOrdering Facility: [facility] Address: [address] [place] [address] Performed By: #### A LLBG ####[facility]CL[facility] [id number] [place] [address] [place] Sodium [Moles/Vol] 132 mmol/L Low 136-144 [facility] Comment on above: Order Comment: Speci men Type: ARTERIAL BLOOD SPECIMENOrdering Facility: [facility] Address: [address] [place] [address] Performed By: #### A LLBG ####[facility]CL[facility] [id number] [place] [address] [place] Base excess Calc (Bld) [Moles/Vol] 2 mmol/L Normal 0-2 [facility] Comment on above: Order Comment: Speci men Type: ARTERIAL BLOOD SPECIMENOrdering Facility: [facility] Address: [address] [place] [address] Performed By: #### A LLBG ####[facility]CL[facility] [id number] [place] [address] [place] Body temperature 98.6 [degF] Normal [facility] Comment on above: Order Comment: Speci men Type: ARTERIAL BLOOD SPECIMENOrdering Facility: [facility] Address: [address] [place] [address] Performed By: #### A LLBG ####[facility]CL[facility] [id number] [place] [address] [place] Calcium.ionized (Bld) [Mass/Vol] 1.25 mmol/L Normal 1.08-1.30 [facility] Comment on above: Order Comment: Speci men Type: ARTERIAL BLOOD SPECIMENOrdering Facility: [facility] Address: [address] [place] [address] Performed By: #### A LLBG ####[facility]CL[facility] [id number] [place] [address] [place] Calcium.ionized adjusted to pH 7.4 (BldA) [Moles/Vol] 1.24 mmol/L Normal 1.08-1.30 [facility] Comment on above: Order Comment: Speci men Type: ARTERIAL BLOOD SPECIMENOrdering Facility: [facility] Address: [address] [place] [address] Performed By: #### A LLBG ####[facility]CL[facility] [id number] [place] [address] [place] Carboxyhemoglobin (BldA) [Mass fraction] 1.5 % Normal 0.0-2.0 [facility] Comment on above: Order Comment: Speci men Type: ARTERIAL BLOOD SPECIMENOrdering Facility: [facility] Address: [address] [place] [address] Result Comment: Carb oxyhemoglobin Reference Range for Smokers: 2.0-8.0% Performed By: #### A LLBG ####[facility]CL[facility] [id number] [place] [address] [place] CO2 (Bld) [Partial pressure] 44 mm Hg Normal 36-46 [facility] Comment on above: Order Comment: Speci men Type: ARTERIAL BLOOD SPECIMENOrdering Facility: [facility] Address: [address] [place] [address] Performed By: #### A LLBG ####[facility] LABIA [id number] [place] [address] [place] Glucose [Mass/Vol] 139 mg/dL High 60-105 [facility] Comment on above: Order Comment: Speci men Type: ARTERIAL BLOOD SPECIMENOrdering Facility: [facility] Address: [address] [place] [address] Performed By: #### A LLBG ####[facility]CL[facility] [id number] [place] [address] [place] HCO3 (Bld) [Moles/Vol] 27 mmol/L High 22-26 [facility] Comment on above: Order Comment: Speci men Type: ARTERIAL BLOOD SPECIMENOrdering Facility: [facility] Address: [address] [place] [address] Performed By: #### A LLBG ####[facility] LABIA [id number] [place] [address] [place] Hematocrit (Bld) [Volume fraction] 37.0 % Normal 36.0-46.0 [facility] Comment on above: Order Comment: Speci men Type: ARTERIAL BLOOD SPECIMENOrdering Facility: [facility] Address: [address] [place] [address] Performed By: #### A LLBG ####[facility] LABIA [id number] [place] [address] [place] Hemoglobin (Bld) [Mass/Vol] 12.0 g/dL Normal 11.5-15.5 [facility] Comment on above: Order Comment: Speci men Type: ARTERIAL BLOOD SPECIMENOrdering Facility: [facility] Address: [address] [place] [address] Performed By: #### A LLBG ####[facility] [id number] [place] [address] [place] Lactate [Moles/Vol] 1.6 mmol/L Normal 0.5-2.2 [facility] Comment on above: Order Comment: Speci men Type: ARTERIAL BLOOD SPECIMENOrdering Facility: [facility] Address: [address] [place] [address] Performed By: #### A LLBG ####[facility] LABIA [id number] [place] [address] [place] Methemoglobin (Bld) [Mass fraction] 1.5 % Normal 0.0-1.5 [facility] Comment on above: Order Comment: Speci men Type: ARTERIAL BLOOD SPECIMENOrdering Facility: [facility] Address: [address] [place] [address] Performed By: #### A LLBG ####[facility] LABIA [id number] [place] [address] [place] O2 THERAPY NC = Nasal Cannula Normal [facility] Comment on above: Order Comment: Speci men Type: ARTERIAL BLOOD SPECIMENOrdering Facility: [facility] Address: [address] [place] [address] Performed By: #### A LLBG ####[facility]CL[facility] [id number] [place] [address] [place] Oxygen (Bld) [Partial pressure] 106 mm Hg High 85-95 [facility] Comment on above: Order Comment: Speci men Type: ARTERIAL BLOOD SPECIMENOrdering Facility: [facility] Address: [address] [place] [address] Performed By: #### A LLBG ####[facility]CL[facility] [id number] [place] [address] [place] Oxyhemoglobin (BldA) [Mass fraction] 95 % Normal 95-98 [facility] Comment on above: Order Comment: Speci men Type: ARTERIAL BLOOD SPECIMENOrdering Facility: [facility] Address: [address] [place] [address] Performed By: #### A LLBG ####[facility] LABIA [id number] [place] [address] [place] pH (Bld) 7.40 [pH] Normal 7.35-7.45 [facility] Comment on above: Order Comment: Speci men Type: ARTERIAL BLOOD SPECIMENOrdering Facility: [facility] Address: [address] [place] [address] Performed By: #### A LLBG ####[facility] LABIA [id number] [place] [address] [place] Potassium [Moles/Vol] 4.2 mmol/L Normal 3.5-5.0 [facility] Comment on above: Order Comment: Speci men Type: ARTERIAL BLOOD SPECIMENOrdering Facility: [facility] Address: [address] [place] [address] Performed By: #### A LLBG ####[facility] LABIA [id number] [place] [address] [place] Sodium [Moles/Vol] 131 mmol/L Low 136-144 [facility] Comment on above: Order Comment: Speci men Type: ARTERIAL BLOOD SPECIMENOrdering Facility: [facility] Address: [address] [place] [address] Performed By: #### A LLBG ####[facility] LABCL[facility] [id number] [place] [address] [place] Base excess Calc (Bld) [Moles/Vol] 1 mmol/L Normal 0-2 [facility] Comment on above: Order Comment: Speci men Type: ARTERIAL BLOOD SPECIMENOrdering Facility: [facility] Address: [address] [place] [address] Performed By: #### A LLBG ####[facility] LABIA [id number] [place] [address] [place] Body temperature 98.6 [degF] Normal [facility] Comment on above: Order Comment: Speci men Type: ARTERIAL BLOOD SPECIMENOrdering Facility: [facility] Address: [address] [place] [address] Performed By: #### A LLBG ####[facility] LABIA [id number] [place] [address] [place] Calcium.ionized (Bld) [Mass/Vol] 1.28 mmol/L Normal 1.08-1.30 [facility] Comment on above: Order Comment: Speci men Type: ARTERIAL BLOOD SPECIMENOrdering Facility: [facility] Address: [address] [place] [address] Performed By: #### A LLBG ####[facility] LABIA [id number] [place] [address] [place] Calcium.ionized adjusted to pH 7.4 (BldA) [Moles/Vol] 1.28 mmol/L Normal 1.08-1.30 [facility] Comment on above: Order Comment: Speci men Type: ARTERIAL BLOOD SPECIMENOrdering Facility: [facility] Address: [address] [place] [address] Performed By: #### A LLBG ####[facility] LABCL[facility] [id number] [place] [address] [place] Carboxyhemoglobin (BldA) [Mass fraction] 1.1 % Normal 0.0-2.0 [facility] Comment on above: Order Comment: Speci men Type: ARTERIAL BLOOD SPECIMENOrdering Facility: [facility] Address: [address] [place] [address] Result Comment: Carb oxyhemoglobin Reference Range for Smokers: 2.0-8.0% Performed By: #### A LLBG ####[facility] LABIA [id number] [place] [address] [place] CO2 (Bld) [Partial pressure] 42 mm Hg Normal 36-46 [facility] Comment on above: Order Comment: Speci men Type: ARTERIAL BLOOD SPECIMENOrdering Facility: [facility] Address: [address] [place] [address] Performed By: #### A LLBG ####[facility] LABCLIA [id number] [place] [address] [place] Glucose [Mass/Vol] 153 mg/dL High 60-105 [facility] Comment on above: Order Comment: Speci men Type: ARTERIAL BLOOD SPECIMENOrdering Facility: [facility] Address: [address] [place] [address] Performed By: #### A LLBG ####[facility] LABCL[facility] [id number] [place] [address] [place] HCO3 (Bld) [Moles/Vol] 25 mmol/L Normal 22-26 [facility] Comment on above: Order Comment: Speci men Type: ARTERIAL BLOOD SPECIMENOrdering Facility: [facility] Address: [address] [place] [address] Performed By: #### A LLBG ####[facility] LABIA [id number] [address] [id number] [address] [place] Hematocrit (Bld) [Volume fraction] 37.6 % Normal 36.0-46.0 [facility] Comment on above: Order Comment: Speci men Type: ARTERIAL BLOOD SPECIMENOrdering Facility: [facility] Address: [address] [place] [address] Performed By: #### A LLBG ####[facility] LABCLIA [id number] [place] [address] [place] Hemoglobin (Bld) [Mass/Vol] 12.2 g/dL Normal 11.5-15.5 [facility] Comment on above: Order Comment: Speci men Type: ARTERIAL BLOOD SPECIMENOrdering Facility: [facility] Address: [address] [place] [address] Performed By: #### A LLBG ####[facility] LABCLIA [id number] [place] [address] [place] Lactate [Moles/Vol] 2.0 mmol/L Normal 0.5-2.2 [facility] Comment on above: Order Comment: Speci men Type: ARTERIAL BLOOD SPECIMENOrdering Facility: [facility] Address: [address] [place] [address] Performed By: #### A LLBG ####[facility] LABCLIA [id number] [place] [address] [place] Methemoglobin (Bld) [Mass fraction] 1.2 % Normal 0.0-1.5 [facility] Comment on above: Order Comment: Speci men Type: ARTERIAL BLOOD SPECIMENOrdering Facility: [facility] Address: [address] [place] [address] Performed By: #### A LLBG ####[facility] LABIA [id number] [place] [address] [place] O2 THERAPY NC = Nasal Cannula Normal [facility] Comment on above: Order Comment: Speci men Type: ARTERIAL BLOOD SPECIMENOrdering Facility: [facility] Address: [address] [place], [place] [address] Performed By: #### A LLBG ####[facility] LABCL[facility] [id number] [place] [address] [place] Oxygen (Bld) [Partial pressure] 115 mm Hg High 85-95 [facility] Comment on above: Order Comment: Speci men Type: ARTERIAL BLOOD SPECIMENOrdering Facility: [facility] Address: [address] [place] [address] Performed By: #### A LLBG ####[facility] LABIA [id number] [place] [address] [place] Oxyhemoglobin (BldA) [Mass fraction] 96 % Normal 95-98 [facility] Comment on above: Order Comment: Speci men Type: ARTERIAL BLOOD SPECIMENOrdering Facility: [facility] Address: [address] [place] [address] Performed By: #### A LLBG ####[facility] LABIA [id number] [place] [address] [place] pH (Bld) 7.40 [pH] Normal 7.35-7.45 [facility] Comment on above: Order Comment: Speci men Type: ARTERIAL BLOOD SPECIMENOrdering Facility: [facility] Address: [address] [place] [address] Performed By: #### A LLBG ####[facility] LABIA [id number] [place] [address] [place] Potassium [Moles/Vol] 4.5 mmol/L Normal 3.5-5.0 [facility] Comment on above: Order Comment: Speci men Type: ARTERIAL BLOOD SPECIMENOrdering Facility: [facility] Address: [address] [place] [address] Performed By: #### A LLBG ####[facility] LABIA [id number] [place] [address] [place] Sodium [Moles/Vol] 132 mmol/L Low 136-144 [facility] Comment on above: Order Comment: Speci men Type: ARTERIAL BLOOD SPECIMENOrdering Facility: [facility] Address: [address] [place] [address] Performed By: #### A LLBG ####[facility]CL[facility] [id number] [place] [address] [place] CASE MGT INIT ASSESon 2023 CASE MGT INIT ASSES Normal [facility] CBC panel Auto (Bld)on 07-30 Erythrocyte distribution width (RBC) [Ratio] 12.1 % Normal 11.5-15.0 [facility] Comment on above: Order Comment: Speci men Type: BLOOD SPECIMENOrdering Facility: [facility] Address: [address] [place] [address] Performed By: #### 5 8410-2 ####[facility]CL[facility] [id number] [place] [address] [place] Hematocrit (Bld) [Volume fraction] 34.5 % Low 36.0-46.0 [facility] Comment on above: Order Comment: Speci men Type: BLOOD SPECIMENOrdering Facility: [facility] Address: [address] [place] [address] Performed By: #### 5 8410-2 ####[facility]CL[facility] [id number] [place] [address] [place] Hemoglobin (Bld) [Mass/Vol] 12.0 g/dL Normal 11.5-15.5 [facility] Comment on above: Order Comment: Speci men Type: BLOOD SPECIMENOrdering Facility: [facility] Address: [address] [place] [address] Performed By: #### 5 8410-2 ####[facility]CL[facility] [id number] [place] [address] [place] MCH (RBC) [Entitic mass] 31.6 pg Normal 26.0-34.0 [facility] Comment on above: Order Comment: Speci men Type: BLOOD SPECIMENOrdering Facility: [facility] Address: [address] [place] [address] Performed By: #### 5 8410-2 ####[facility] LABIA [id number] [place] [address] [place] MCHC (RBC) [Mass/Vol] 34.8 g/dL Normal 30.5-36.0 [facility] Comment on above: Order Comment: Speci men Type: BLOOD SPECIMENOrdering Facility: [facility] Address: [address] [place] [address] Performed By: #### 5 8410-2 ####[facility] LABIA [id number] [place] [address] [place] MCV (RBC) [Entitic vol] 90.8 fL Normal 80.0-100.0 [facility] Comment on above: Order Comment: Speci men Type: BLOOD SPECIMENOrdering Facility: [facility] Address: [address] [place] [address] Performed By: #### 5 8410-2 ####[facility] LABIA [id number] [place] [address] [place] Nucleated RBC (Bld) [#/Vol] 10*3/uL Normal <0.01 [facility] Comment on above: Order Comment: Speci men Type: BLOOD SPECIMENOrdering Facility: [facility] Address: [address] [place] [address] Performed By: #### 5 8410-2 ####[facility] LABIA [id number] [place] [address] [place] Platelet mean volume (Bld) [Entitic vol] 9.7 fL Normal 9.0-12.7 [facility] Comment on above: Order Comment: Speci men Type: BLOOD SPECIMENOrdering Facility: [facility] Address: [address] [place] [address] Performed By: #### 5 8410-2 ####[facility]CL[facility] [id number] [place] [address] [place] Platelets (Bld) [#/Vol] 169 10*3/uL Normal 150-400 [facility] Comment on above: Order Comment: Speci men Type: BLOOD SPECIMENOrdering Facility: [facility] Address: [address] [place] [address] Performed By: #### 5 8410-2 ####[facility] LABCL[facility] [id number] [place] [address] [place] RBC (Bld) [#/Vol] 3.80 10*6/uL Low 3.90-5.20 [facility] Comment on above: Order Comment: Speci men Type: BLOOD SPECIMENOrdering Facility: [facility] Address: [address] [place] [address] Performed By: #### 5 8410-2 ####[facility] LABIA [id number] [place] [address] [place] WBC (Bld) [#/Vol] 10.11 10*3/uL Normal 3.70-11.00 [facility] Comment on above: Order Comment: Speci men Type: BLOOD SPECIMENOrdering Facility: [facility] Address: [address] [place] [address] Performed By: #### 5 8410-2 ####[facility] LABIA [id number] [place] [id number] [place] Comprehensive metabolic 2000 panelon 07-30-2023 Albumin [Mass/Vol] 3.1 g/dL Low 3.9-4.9 [facility] Comment on above: Order Comment: Speci men Type: BLOOD SPECIMENOrdering Facility: [facility] Address: [address] [place] [address] Performed By: #### 2 4323-8, HSTNT ####[facility] LABCLIA [id number] [place] [id number] [place] ALP [Catalytic activity/Vol] 56 U/L Normal 34-123 [facility] Comment on above: Order Comment: Speci men Type: BLOOD SPECIMENOrdering Facility: [facility] Address: [address] [place] [address] Performed By: #### 2 4323-8, HSTNT ####[facility] LABCLIA [id number] [place] [address] [place] ALT [Catalytic activity/Vol] 14 U/L Normal 7-38 [facility] Comment on above: Order Comment: Speci men Type: BLOOD SPECIMENOrdering Facility: [facility] Address: [address] [place] [address] Performed By: #### 2 4323-8, HSTNT ####[facility] LABCLIA [id number] [place] [address] [place] Anion gap [Moles/Vol] 10 mmol/L Normal 9-18 [facility] Comment on above: Order Comment: Speci men Type: BLOOD SPECIMENOrdering Facility: [facility] Address: [address] [place] [address] Performed By: #### 2 4323-8, HSTNT ####[facility] LABCLIA [id number] [place] [address] [place] AST [Catalytic activity/Vol] 29 U/L Normal 13-35 [facility] Comment on above: Order Comment: Speci men Type: BLOOD SPECIMENOrdering Facility: [facility] Address: [address] [place] [address] Performed By: #### 2 4323-8, HSTNT ####[facility] LABCLIA [id number] [place] [id number] [place] Bilirubin [Mass/Vol] 0.4 mg/dL Normal 0.2-1.3 [facility] Comment on above: Order Comment: Speci men Type: BLOOD SPECIMENOrdering Facility: [facility] Address: [address] [place] [address] Performed By: #### 2 4323-8, HSTNT ####[facility] LABCLIA [id number] [address] [address] [place] Calcium [Mass/Vol] 8.9 mg/dL Normal 8.5-10.2 [facility] Comment on above: Order Comment: Speci men Type: BLOOD SPECIMENOrdering Facility: [facility] Address: [address] [place] [address] Performed By: #### 2 4323-8, HSTNT ####[facility] LABCLIA [id number] [place] [address] [place] Chloride [Moles/Vol] 101 mmol/L Normal 97-105 [facility] Comment on above: Order Comment: Speci men Type: BLOOD SPECIMENOrdering Facility: [facility] Address: [address] [place], [place] [address] Performed By: #### 2 4323-8, HSTNT ####[facility] LABCL[facility] [id number] [place] [address] [place] CO2 [Moles/Vol] 23 mmol/L Normal 22-30 [facility] Comment on above: Order Comment: Speci men Type: BLOOD SPECIMENOrdering Facility: [facility] Address: [address] [place] [id number] Performed By: #### 2 4323-8, HSTNT ####[facility] LABCLIA [id number] [place] [address] [place] Creatinine [Mass/Vol] 0.70 mg/dL Normal 0.58-0.96 [facility] Comment on above: Order Comment: Speci men Type: BLOOD SPECIMENOrdering Facility: [facility] Address: [address] [place] [address] Performed By: #### 2 4323-8, HSTNT ####[facility] LABCLIA [id number] [place] [address] [place] Creatinine and Glomerular filtration rate.predicted panel (S/P/Bld) 96 mL/min/1.73m??? Normal >=60 [facility] Comment on above: Order Comment: Phyllis stein Type: BLOOD SPECIMENOrdering Facility: [facility] Address: [address] [place] [address] Result Comment: Annelise mated Glomerular Filtration Rate [...] reflect actual GFR. Performed By: #### 2 4323-8, HSTNT ####[facility] LABCLIA [id number] [place] [address] [place] Glucose [Mass/Vol] 145 mg/dL High 74-99 [facility] Comment on above: Order Comment: Phyllis stein Type: BLOOD SPECIMENOrdering Facility: [facility] Address: [address] [place] [address] Result Comment: The [place] [employer] (ADA) provides guidance for cutoff values for fasting glucose and random glucose. The ADA defines fasting as no caloric intake for at least 8 hours. Fasting plasma glucose results between 100 to 125 mg/dL indicate increased risk for diabetes (prediabetes).Fasting plasma glucose results greater than or equal to 126 mg/dL meet the criteria for diagnosis of diabetes. In the absence of unequivocal hyperglycemia, results should be confirmed by repeat testing. In a patient with classic symptoms of hyperglycemia or hyperglycemic crisis, random plasma glucose results greater than or equal to 200 mg/dL meet the criteria for diagnosis of diabetes.Reference: Standards of Medical Care in Diabetes 2016, [place] [employer]. Diabetes Care. 2016.39(Suppl 1). Performed By: #### 2 4323-8, HSTNT ####[facility] LABCLIA [id number] [place] [address] [place] Potassium [Moles/Vol] 4.7 mmol/L Normal 3.7-5.1 [facility] Comment on above: Order Comment: Speci men Type: BLOOD SPECIMENOrdering Facility: [facility] Address: [address] [place] [address] Performed By: #### 2 4323-8, HSTNT ####[facility] LABCLIA [id number] [place] [address] [place] Protein [Mass/Vol] 5.2 g/dL Low 6.3-8.0 [facility] Comment on above: Order Comment: Speci men Type: BLOOD SPECIMENOrdering Facility: [facility] Address: [address] [place] [address] Performed By: #### 2 4323-8, HSTNT ####[facility] LABIA [id number] [place] [address] [place] Sodium [Moles/Vol] 134 mmol/L Low 136-144 [facility] Comment on above: Order Comment: Speci men Type: BLOOD SPECIMENOrdering Facility: [facility] Address: [address] [place] [address] Performed By: #### 2 4323-8, HSTNT ####[facility] LABCLIA [id number] [place] [address] [place] Urea nitrogen [Mass/Vol] 20 mg/dL Normal 7-21 [facility] Comment on above: Order Comment: Speci men Type: BLOOD SPECIMENOrdering Facility: [facility] Address: [address] [place] [address] Performed By: #### 2 4323-8, HSTNT ####[facility] LABCLIA [id number] [place] [address] [place] HIGH SENSITIVITY TROPONIN To n 07-30-2023 Troponin T.cardiac High sensitivity method [Mass/Vol] 317 ng/L High <12 [facility] Comment on above: Order Comment: Speci men Type: BLOOD SPECIMENOrdering Facility: [facility] Address: [address] [place] [address] Result Comment: When assessing risk for acute coronary syndromes: In patients undergoing blood draw greater than or equal to 2 hours from symptom onset, with history of very low to moderate risk and non-ischemic ECG, an initial hs-Troponin T less than 12 ng/L AND a 1 hour delta hs-Troponin T less than 3 ng/L should be considered very low risk for 30 day MACE. Performed By: #### 2 4323-8, HSTNT ####[facility] LABCLIA [id number] [place] [address] [place] XR CHEST 1V FRONTAL PORTon 0 07-30-2023 XR CHEST 1V FRONTAL PORT Normal [facility] ANES POSTPROC EVALon 024 ANES POSTPROC EVAL Normal [facility] ANES PRE-OPon 07-29-2023 ANES PRE-OP Normal [facility] ARTERIAL BLOOD GASESon 07-29 Base excess Calc (Bld) [Moles/Vol] 1 mmol/L Normal 0-2 [facility] Comment on above: Order Comment: Speci men Type: ARTERIAL BLOOD SPECIMENOrdering Facility: [facility] Address: [address] [place] [address] Performed By: #### A LLBG ####[facility] LABCLIA [id number] [place] [address] [place] Body temperature 98.6 [degF] Normal [facility] Comment on above: Order Comment: Speci men Type: ARTERIAL BLOOD SPECIMENOrdering Facility: [facility] Address: [address] [place] [address] Performed By: #### A LLBG ####[facility] LABCLIA [id number] [place] [address] [place] Calcium.ionized (Bld) [Mass/Vol] 1.26 mmol/L Normal 1.08-1.30 [facility] Comment on above: Order Comment: Speci men Type: ARTERIAL BLOOD SPECIMENOrdering Facility: [facility] Address: [address] [place] [address] Performed By: #### A LLBG ####[facility] LABCLIA [id number] [place] [address] [place] Calcium.ionized adjusted to pH 7.4 (BldA) [Moles/Vol] 1.25 mmol/L Normal 1.08-1.30 [facility] Comment on above: Order Comment: Speci men Type: ARTERIAL BLOOD SPECIMENOrdering Facility: [facility] Address: [address] [place] [address] Performed By: #### A LLBG ####[facility] LABCL[facility] [id number] [place] [address] [place] Carboxyhemoglobin (BldA) [Mass fraction] 1.2 % Normal 0.0-2.0 [facility] Comment on above: Order Comment: Speci men Type: ARTERIAL BLOOD SPECIMENOrdering Facility: [facility] Address: [address] [place] [address] Result Comment: Carb oxyhemoglobin Reference Range for Smokers: 2.0-8.0% Performed By: #### A LLBG ####[facility] LABCL[facility] [id number] [place] [address] [place] CO2 (Bld) [Partial pressure] 43 mm Hg Normal 36-46 [facility] Comment on above: Order Comment: Speci men Type: ARTERIAL BLOOD SPECIMENOrdering Facility: [facility] Address: [address] [place] [address] Performed By: #### A LLBG ####[facility] LABCL[facility] [id number] [place] [address] [place] Glucose [Mass/Vol] 164 mg/dL High 60-105 [facility] Comment on above: Order Comment: Speci men Type: ARTERIAL BLOOD SPECIMENOrdering Facility: [facility] Address: [address] [place] [address] Performed By: #### A LLBG ####[facility]CL[facility] [id number] [place] [address] [place] HCO3 (Bld) [Moles/Vol] 26 mmol/L Normal 22-26 [facility] Comment on above: Order Comment: Speci men Type: ARTERIAL BLOOD SPECIMENOrdering Facility: [facility] Address: [address] [place] [address] Performed By: #### A LLBG ####[facility] LABCL[facility] [id number] [place] [address] [place] Hematocrit (Bld) [Volume fraction] 36.7 % Normal 36.0-46.0 [facility] Comment on above: Order Comment: Speci men Type: ARTERIAL BLOOD SPECIMENOrdering Facility: [facility] Address: [address] [place] [address] Performed By: #### A LLBG ####[facility] LABCL[facility] [id number] [place] [address] [place] Hemoglobin (Bld) [Mass/Vol] 11.9 g/dL Normal 11.5-15.5 [facility] Comment on above: Order Comment: Speci men Type: ARTERIAL BLOOD SPECIMENOrdering Facility: [facility] Address: [address] [place] [address] Performed By: #### A LLBG ####[facility] LABIA [id number] [place] [address] [place] Lactate [Moles/Vol] 1.1 mmol/L Normal 0.5-2.2 [facility] Comment on above: Order Comment: Speci men Type: ARTERIAL BLOOD SPECIMENOrdering Facility: [facility] Address: [address] [place] [address] Performed By: #### A LLBG ####[facility] LABCLIA [id number] [place] [id number] [place] Methemoglobin (Bld) [Mass fraction] 0.9 % Normal 0.0-1.5 [facility] Comment on above: Order Comment: Speci men Type: ARTERIAL BLOOD SPECIMENOrdering Facility: [facility] Address: [address] [place] [address] Performed By: #### A LLBG ####[facility]CL[facility] [id number] [place] [address] [place] O2 THERAPY NC = Nasal Cannula Normal [facility] Comment on above: Order Comment: Speci men Type: ARTERIAL BLOOD SPECIMENOrdering Facility: [facility] Address: [address] [place] [address] Performed By: #### A LLBG ####[facility] LABIA [id number] [place] [address] [place] Oxygen (Bld) [Partial pressure] 95 mm Hg Normal 85-95 [facility] Comment on above: Order Comment: Speci men Type: ARTERIAL BLOOD SPECIMENOrdering Facility: [facility] Address: [address] [place] [address] Performed By: #### A LLBG ####[facility] LABIA [id number] [place] [address] [place] Oxyhemoglobin (BldA) [Mass fraction] 96 % Normal 95-98 [facility] Comment on above: Order Comment: Speci men Type: ARTERIAL BLOOD SPECIMENOrdering Facility: [facility] Address: [address] [place], [place] [address] Performed By: #### A LLBG ####[facility] LABIA [id number] [place] [id number] [place] pH (Bld) 7.39 [pH] Normal 7.35-7.45 [facility] Comment on above: Order Comment: Speci men Type: ARTERIAL BLOOD SPECIMENOrdering Facility: [facility] Address: [address] [place] [address] Performed By: #### A LLBG ####[facility]CL[facility] [id number] [place] [address] [place] Potassium [Moles/Vol] 4.4 mmol/L Normal 3.5-5.0 [facility] Comment on above: Order Comment: Speci men Type: ARTERIAL BLOOD SPECIMENOrdering Facility: [facility] Address: [address] [place] [address] Performed By: #### A LLBG ####[facility]CL[facility] [id number] [place] [address] [place] Sodium [Moles/Vol] 132 mmol/L Low 136-144 [facility] Comment on above: Order Comment: Speci men Type: ARTERIAL BLOOD SPECIMENOrdering Facility: [facility] Address: [address] [place] [address] Performed By: #### A LLBG ####[facility]CL[facility] [id number] [place] [address] [place] Base excess Calc (Bld) [Moles/Vol] 0 mmol/L Normal 0-2 [facility] Comment on above: Order Comment: Speci men Type: ARTERIAL BLOOD SPECIMENOrdering Facility: [facility] Address: [address] [place] [address] Performed By: #### A LLBG ####[facility]CL[facility] [id number] [place] [address] [place] Body temperature 98.6 [degF] Normal [facility] Comment on above: Order Comment: Speci men Type: ARTERIAL BLOOD SPECIMENOrdering Facility: [facility] Address: [address] [place] [address] Performed By: #### A LLBG ####[facility]CL[facility] [id number] [address] [id number] [address] [place] Calcium.ionized (Bld) [Mass/Vol] 1.28 mmol/L Normal 1.08-1.30 [facility] Comment on above: Order Comment: Speci men Type: ARTERIAL BLOOD SPECIMENOrdering Facility: [facility] Address: [address] [place] [address] Performed By: #### A LLBG ####[facility]CL[facility] [id number] [place] [address] [place] Calcium.ionized adjusted to pH 7.4 (BldA) [Moles/Vol] 1.26 mmol/L Normal 1.08-1.30 [facility] Comment on above: Order Comment: Speci men Type: ARTERIAL BLOOD SPECIMENOrdering Facility: [facility] Address: [address] [place] [address] Performed By: #### A LLBG ####[facility]IA [id number] [place] [address] [place] Carboxyhemoglobin (BldA) [Mass fraction] 1.9 % Normal 0.0-2.0 [facility] Comment on above: Order Comment: Speci men Type: ARTERIAL BLOOD SPECIMENOrdering Facility: [facility] Address: [address] [place] [address] Result Comment: Carb oxyhemoglobin Reference Range for Smokers: 2.0-8.0% Performed By: #### A LLBG ####[facility]CL[facility] [id number] [place] [address] [place] CO2 (Bld) [Partial pressure] 45 mm Hg Normal 36-46 [facility] Comment on above: Order Comment: Speci men Type: ARTERIAL BLOOD SPECIMENOrdering Facility: [facility] Address: [address] [place] [address] Performed By: #### A LLBG ####[facility] [id number] [place] [address] [place] Glucose [Mass/Vol] 143 mg/dL High 60-105 [facility] Comment on above: Order Comment: Speci men Type: ARTERIAL BLOOD SPECIMENOrdering Facility: [facility] Address: [address] [place] [address] Performed By: #### A LLBG ####[facility]CL[facility] [id number] [place] [address] [place] HCO3 (Bld) [Moles/Vol] 25 mmol/L Normal 22-26 [facility] Comment on above: Order Comment: Speci men Type: ARTERIAL BLOOD SPECIMENOrdering Facility: [facility] Address: [address] [place] [address] Performed By: #### A LLBG ####[facility]CL[facility] [id number] [place] [address] [place] Hematocrit (Bld) [Volume fraction] 36.2 % Normal 36.0-46.0 [facility] Comment on above: Order Comment: Speci men Type: ARTERIAL BLOOD SPECIMENOrdering Facility: [facility] Address: [address] [place] [address] Performed By: #### A LLBG ####[facility] [id number] [place] [address] [place] Hemoglobin (Bld) [Mass/Vol] 11.7 g/dL Normal 11.5-15.5 [facility] Comment on above: Order Comment: Speci men Type: ARTERIAL BLOOD SPECIMENOrdering Facility: [facility] Address: [address] [place] [address] Performed By: #### A LLBG ####[facility] LABIA [id number] [place] [address] [place] Lactate [Moles/Vol] 2.3 mmol/L High 0.5-2.2 [facility] Comment on above: Order Comment: Speci men Type: ARTERIAL BLOOD SPECIMENOrdering Facility: [facility] Address: [address] [place] [address] Performed By: #### A LLBG ####[facility] LABCLIA [id number] [place] [address] [place] Methemoglobin (Bld) [Mass fraction] 0.7 % Normal 0.0-1.5 [facility] Comment on above: Order Comment: Speci men Type: ARTERIAL BLOOD SPECIMENOrdering Facility: [facility] Address: [address] [place] [address] Performed By: #### A LLBG ####[facility] LABCLIA [id number] [place] [address] [place] O2 THERAPY NC = Nasal Cannula Normal [facility] Comment on above: Order Comment: Speci men Type: ARTERIAL BLOOD SPECIMENOrdering Facility: [facility] Address: [address] [place] [address] Performed By: #### A LLBG ####[facility] LABCLIA [id number] [place] [address] [place] Oxygen (Bld) [Partial pressure] 95 mm Hg Normal 85-95 [facility] Comment on above: Order Comment: Speci men Type: ARTERIAL BLOOD SPECIMENOrdering Facility: [facility] Address: [address] [place] [address] Performed By: #### A LLBG ####[facility] LABIA [id number] [place] [address] [place] Oxyhemoglobin (BldA) [Mass fraction] 95 % Normal 95-98 [facility] Comment on above: Order Comment: Speci men Type: ARTERIAL BLOOD SPECIMENOrdering Facility: [facility] Address: [address] [place], [place] [id number] Performed By: #### A LLBG ####[facility] LABCLIA [id number] [place] [id number] [place] pH (Bld) 7.37 [pH] Normal 7.35-7.45 [facility] Comment on above: Order Comment: Speci men Type: ARTERIAL BLOOD SPECIMENOrdering Facility: [facility] Address: [address] [place] [id number] Performed By: #### A LLBG ####[facility] LABCLIA [id number] [place] [address] [place] Potassium [Moles/Vol] 4.4 mmol/L Normal 3.5-5.0 [facility] Comment on above: Order Comment: Speci men Type: ARTERIAL BLOOD SPECIMENOrdering Facility: [facility] Address: [address] [place] [address] Performed By: #### A LLBG ####[facility] LABCLIA [id number] [place] [address] [place] Sodium [Moles/Vol] 134 mmol/L Low 136-144 [facility] Comment on above: Order Comment: Speci men Type: ARTERIAL BLOOD SPECIMENOrdering Facility: [facility] Address: [address] [place] [address] Performed By: #### A LLBG ####[facility] LABCLIA [id number] [place] [address] [place] Base deficit (BldA) [Moles/Vol] -1 mmol/L Normal -2-0 [facility] Comment on above: Order Comment: Speci men Type: ARTERIAL BLOOD SPECIMENOrdering Facility: [facility] Address: [address] [place] [address] Performed By: #### A LLBG ####[facility] LABCLIA [id number] [place] [address] [place] Body temperature 98.6 [degF] Normal [facility] Comment on above: Order Comment: Speci men Type: ARTERIAL BLOOD SPECIMENOrdering Facility: [facility] Address: [address] [place], [place] [address] Performed By: #### A LLBG ####[facility] LABCLIA [id number] [place] [address] [place] Calcium.ionized (Bld) [Mass/Vol] 1.29 mmol/L Normal 1.08-1.30 [facility] Comment on above: Order Comment: Speci men Type: ARTERIAL BLOOD SPECIMENOrdering Facility: [facility] Address: [address] [place] [address] Performed By: #### A LLBG ####[facility] LABIA [id number] [place] [address] [place] Calcium.ionized adjusted to pH 7.4 (BldA) [Moles/Vol] 1.25 mmol/L Normal 1.08-1.30 [facility] Comment on above: Order Comment: Speci men Type: ARTERIAL BLOOD SPECIMENOrdering Facility: [facility] Address: [address] [place] [address] Performed By: #### A LLBG ####[facility] LABIA [id number] [place] [address] [place] Carboxyhemoglobin (BldA) [Mass fraction] 1.7 % Normal 0.0-2.0 [facility] Comment on above: Order Comment: Speci men Type: ARTERIAL BLOOD SPECIMENOrdering Facility: [facility] Address: [address] [place] [address] Result Comment: Carb oxyhemoglobin Reference Range for Smokers: 2.0-8.0% Performed By: #### A LLBG ####[facility]IA [id number] [place] [address] [place] CO2 (Bld) [Partial pressure] 47 mm Hg High 36-46 [facility] Comment on above: Order Comment: Speci men Type: ARTERIAL BLOOD SPECIMENOrdering Facility: [facility] Address: [address] [place] [address] Performed By: #### A LLBG ####[facility] [id number] [place] [address] [place] Glucose [Mass/Vol] 216 mg/dL High 60-105 [facility] Comment on above: Order Comment: Speci men Type: ARTERIAL BLOOD SPECIMENOrdering Facility: [facility] Address: [address] [place] [address] Performed By: #### A LLBG ####[facility] LABCLIA [id number] [place] [address] [place] HCO3 (Bld) [Moles/Vol] 25 mmol/L Normal 22-26 [facility] Comment on above: Order Comment: Speci men Type: ARTERIAL BLOOD SPECIMENOrdering Facility: [facility] Address: [address] [place] [address] Performed By: #### A LLBG ####[facility] LABCLIA [id number] [place] [address] [place] Hematocrit (Bld) [Volume fraction] 38.2 % Normal 36.0-46.0 [facility] Comment on above: Order Comment: Speci men Type: ARTERIAL BLOOD SPECIMENOrdering Facility: [facility] Address: [address] [place] [address] Performed By: #### A LLBG ####[facility] LABCLIA [id number] [place] [address] [place] Hemoglobin (Bld) [Mass/Vol] 12.4 g/dL Normal 11.5-15.5 [facility] Comment on above: Order Comment: Speci men Type: ARTERIAL BLOOD SPECIMENOrdering Facility: [facility] Address: [address] [place] [address] Performed By: #### A LLBG ####[facility] LABCLIA [id number] [place] [address] [place] Lactate [Moles/Vol] 1.2 mmol/L Normal 0.5-2.2 [facility] Comment on above: Order Comment: Speci men Type: ARTERIAL BLOOD SPECIMENOrdering Facility: [facility] Address: [address] [place] [address] Performed By: #### A LLBG ####[facility] LABCLIA [id number] [place] [address] [place] Methemoglobin (Bld) [Mass fraction] 0.8 % Normal 0.0-1.5 [facility] Comment on above: Order Comment: Speci men Type: ARTERIAL BLOOD SPECIMENOrdering Facility: [facility] Address: [address] [place] [address] Performed By: #### A LLBG ####[facility] LABCLIA [id number] [place] [address] [place] O2 THERAPY NC = Nasal Cannula Normal [facility] Comment on above: Order Comment: Speci men Type: ARTERIAL BLOOD SPECIMENOrdering Facility: [facility] Address: [address] [place] [address] Performed By: #### A LLBG ####[facility] LABCLIA [id number] [place] [address] [place] Oxygen (Bld) [Partial pressure] 127 mm Hg High 85-95 [facility] Comment on above: Order Comment: Speci men Type: ARTERIAL BLOOD SPECIMENOrdering Facility: [facility] Address: [address] [place] [address] Performed By: #### A LLBG ####[facility] LABCLIA [id number] [place] [address] [place] Oxyhemoglobin (BldA) [Mass fraction] 96 % Normal 95-98 [facility] Comment on above: Order Comment: Speci men Type: ARTERIAL BLOOD SPECIMENOrdering Facility: [facility] Address: [address] [place] [address] Performed By: #### A LLBG ####[facility] LABCLIA [id number] [place] [address] [place] pH (Bld) 7.34 [pH] Low 7.35-7.45 [facility] Comment on above: Order Comment: Speci men Type: ARTERIAL BLOOD SPECIMENOrdering Facility: [facility] Address: [address] [place] [address] Performed By: #### A LLBG ####[facility] LABCLIA [id number] [place] [address] [place] Potassium [Moles/Vol] 4.2 mmol/L Normal 3.5-5.0 [facility] Comment on above: Order Comment: Speci men Type: ARTERIAL BLOOD SPECIMENOrdering Facility: [facility] Address: [address] [place] [address] Performed By: #### A LLBG ####[facility] LABCLIA [id number] [place] [address] [place] Sodium [Moles/Vol] 134 mmol/L Low 136-144 [facility] Comment on above: Order Comment: Speci men Type: ARTERIAL BLOOD SPECIMENOrdering Facility: [facility] Address: [address] [place] [address] Performed By: #### A LLBG ####[facility] LABCLIA [id number] [place] [address] [place] Base excess Calc (Bld) [Moles/Vol] 0 mmol/L Normal 0-2 [facility] Comment on above: Order Comment: Speci men Type: ARTERIAL BLOOD SPECIMENOrdering Facility: [facility] Address: [address] [place] [address] Performed By: #### A LLBG ####[facility] LABCLIA [id number] [place] [address] [place] Body temperature 98.6 [degF] Normal [facility] Comment on above: Order Comment: Speci men Type: ARTERIAL BLOOD SPECIMENOrdering Facility: [facility] Address: [address] [place] [address] Performed By: #### A LLBG ####[facility] LABIA [id number] [place] [address] [place] Calcium.ionized (Bld) [Mass/Vol] 1.28 mmol/L Normal 1.08-1.30 [facility] Comment on above: Order Comment: Speci men Type: ARTERIAL BLOOD SPECIMENOrdering Facility: [facility] Address: [address] [place] [address] Performed By: #### A LLBG ####[facility] LABIA [id number] [place] [address] [place] Calcium.ionized adjusted to pH 7.4 (BldA) [Moles/Vol] 1.27 mmol/L Normal 1.08-1.30 [facility] Comment on above: Order Comment: Speci men Type: ARTERIAL BLOOD SPECIMENOrdering Facility: [facility] Address: [address] [place] [address] Performed By: #### A LLBG ####[facility] [id number] [place] [address] [place] Carboxyhemoglobin (BldA) [Mass fraction] 1.1 % Normal 0.0-2.0 [facility] Comment on above: Order Comment: Speci men Type: ARTERIAL BLOOD SPECIMENOrdering Facility: [facility] Address: [address] [place] [address] Result Comment: Carb oxyhemoglobin Reference Range for Smokers: 2.0-8.0% Performed By: #### A LLBG ####[facility] LAB[facility] [id number] [place] [address] [place] CO2 (Bld) [Partial pressure] 43 mm Hg Normal 36-46 [facility] Comment on above: Order Comment: Speci men Type: ARTERIAL BLOOD SPECIMENOrdering Facility: [facility] Address: [address] [place] [address] Performed By: #### A LLBG ####[facility] LABIA [id number] [place] [address] [place] Glucose [Mass/Vol] 186 mg/dL High 60-105 [facility] Comment on above: Order Comment: Speci men Type: ARTERIAL BLOOD SPECIMENOrdering Facility: [facility] Address: [address] [place] [address] Performed By: #### A LLBG ####[facility] LABCLIA [id number] [place] [address] [place] HCO3 (Bld) [Moles/Vol] 25 mmol/L Normal 22-26 [facility] Comment on above: Order Comment: Speci men Type: ARTERIAL BLOOD SPECIMENOrdering Facility: [facility] Address: [address] [place] [address] Performed By: #### A LLBG ####[facility] LABCLIA [id number] [place] [address] [place] Hematocrit (Bld) [Volume fraction] 38.5 % Normal 36.0-46.0 [facility] Comment on above: Order Comment: Speci men Type: ARTERIAL BLOOD SPECIMENOrdering Facility: [facility] Address: [address] [place] [address] Performed By: #### A LLBG ####[facility] LABCLIA [id number] [place] [address] [place] Hemoglobin (Bld) [Mass/Vol] 12.5 g/dL Normal 11.5-15.5 [facility] Comment on above: Order Comment: Speci men Type: ARTERIAL BLOOD SPECIMENOrdering Facility: [facility] Address: [address] [place] [address] Performed By: #### A LLBG ####[facility] LABCLIA [id number] [place] [address] [place] Lactate [Moles/Vol] 1.0 mmol/L Normal 0.5-2.2 [facility] Comment on above: Order Comment: Speci men Type: ARTERIAL BLOOD SPECIMENOrdering Facility: [facility] Address: [address] [place] [address] Performed By: #### A LLBG ####[facility] LABCLIA [id number] [place] [address] [place] Methemoglobin (Bld) [Mass fraction] 0.8 % Normal 0.0-1.5 [facility] Comment on above: Order Comment: Speci men Type: ARTERIAL BLOOD SPECIMENOrdering Facility: [facility] Address: [address] [place] [address] Performed By: #### A LLBG ####[facility] LABCLIA [id number] [place] [address] [place] O2 THERAPY Positive Normal [facility] Comment on above: Order Comment: Speci men Type: ARTERIAL BLOOD SPECIMENOrdering Facility: [facility] Address: [address] [place] [address] Performed By: #### A LLBG ####[facility] LABCLIA [id number] [place] [address] [place] Oxygen (Bld) [Partial pressure] 117 mm Hg High 85-95 [facility] Comment on above: Order Comment: Speci men Type: ARTERIAL BLOOD SPECIMENOrdering Facility: [facility] Address: [address] [place] [address] Performed By: #### A LLBG ####[facility] LABCLIA [id number] [place] [id number] [place] Oxyhemoglobin (BldA) [Mass fraction] 95 % Normal 95-98 [facility] Comment on above: Order Comment: Speci men Type: ARTERIAL BLOOD SPECIMENOrdering Facility: [facility] Address: [address] [place] [address] Performed By: #### A LLBG ####[facility] LABCLIA [id number] [place] [id number] [place] pH (Bld) 7.38 [pH] Normal 7.35-7.45 [facility] Comment on above: Order Comment: Speci men Type: ARTERIAL BLOOD SPECIMENOrdering Facility: [facility] Address: [address] [place] [address] Performed By: #### A LLBG ####[facility] LABCLIA [id number] [place] [address] [place] Potassium [Moles/Vol] 4.6 mmol/L Normal 3.5-5.0 [facility] Comment on above: Order Comment: Speci men Type: ARTERIAL BLOOD SPECIMENOrdering Facility: [facility] Address: [address] [place] [address] Performed By: #### A LLBG ####[facility] [id number] [place] [address] [place] Sodium [Moles/Vol] 134 mmol/L Low 136-144 [facility] Comment on above: Order Comment: Speci men Type: ARTERIAL BLOOD SPECIMENOrdering Facility: [facility] Address: [address] [place] [address] Performed By: #### A LLBG ####[facility] [id number] [place] [address] [place] Base excess Calc (Bld) [Moles/Vol] 1 mmol/L Normal 0-2 [facility] Comment on above: Order Comment: Speci men Type: ARTERIAL BLOOD SPECIMENOrdering Facility: [facility] Address: [address] [place] [address] Performed By: #### A LLBG ####[facility] [id number] [place] [address] [place] Body temperature 98.6 [degF] Normal [facility] Comment on above: Order Comment: Speci men Type: ARTERIAL BLOOD SPECIMENOrdering Facility: [facility] Address: [address] [place] [address] Performed By: #### A LLBG ####[facility] [id number] [place] [address] [place] Calcium.ionized (Bld) [Mass/Vol] 1.33 mmol/L High 1.08-1.30 [facility] Comment on above: Order Comment: Speci men Type: ARTERIAL BLOOD SPECIMENOrdering Facility: [facility] Address: [address] [place] [address] Performed By: #### A LLBG ####[facility] [id number] [place] [address] [place] Calcium.ionized adjusted to pH 7.4 (BldA) [Moles/Vol] 1.31 mmol/L High 1.08-1.30 [facility] Comment on above: Order Comment: Speci men Type: ARTERIAL BLOOD SPECIMENOrdering Facility: [facility] Address: [address] [place] [address] Performed By: #### A LLBG ####[facility] [id number] [place] [address] [place] Carboxyhemoglobin (BldA) [Mass fraction] 1.5 % Normal 0.0-2.0 [facility] Comment on above: Order Comment: Speci men Type: ARTERIAL BLOOD SPECIMENOrdering Facility: [facility] Address: [address] [place] [address] Result Comment: Carb oxyhemoglobin Reference Range for Smokers: 2.0-8.0% Performed By: #### A LLBG ####[facility] [id number] [place] [address] [place] CO2 (Bld) [Partial pressure] 45 mm Hg Normal 36-46 [facility] Comment on above: Order Comment: Speci men Type: ARTERIAL BLOOD SPECIMENOrdering Facility: [facility] Address: [address] [place] [address] Performed By: #### A LLBG ####[facility] LABCLIA [id number] [place] [address] [place] FIO2 40 % Normal [facility] Comment on above: Order Comment: Speci men Type: ARTERIAL BLOOD SPECIMENOrdering Facility: [facility] Address: [address] [place] [address] Performed By: #### A LLBG ####[facility] LABCLIA [id number] [place] [address] [place] Glucose [Mass/Vol] 122 mg/dL High 60-105 [facility] Comment on above: Order Comment: Speci men Type: ARTERIAL BLOOD SPECIMENOrdering Facility: [facility] Address: [address] [place] [address] Performed By: #### A LLBG ####[facility] LABCLIA [id number] [place] [address] [place] HCO3 (Bld) [Moles/Vol] 26 mmol/L Normal 22-26 [facility] Comment on above: Order Comment: Speci men Type: ARTERIAL BLOOD SPECIMENOrdering Facility: [facility] Address: [address] [place] [address] Performed By: #### A LLBG ####[facility] LABCLIA [id number] [place] [address] [place] Hematocrit (Bld) [Volume fraction] 38.3 % Normal 36.0-46.0 [facility] Comment on above: Order Comment: Speci men Type: ARTERIAL BLOOD SPECIMENOrdering Facility: [facility] Address: [address] [place], [place] [address] Performed By: #### A LLBG ####[facility] LABCLIA [id number] [place] [address] [place] Hemoglobin (Bld) [Mass/Vol] 12.5 g/dL Normal 11.5-15.5 [facility] Comment on above: Order Comment: Speci men Type: ARTERIAL BLOOD SPECIMENOrdering Facility: [facility] Address: [address] [place] [address] Performed By: #### A LLBG ####[facility] LABCL[facility] [id number] [place] [address] [place] Lactate [Moles/Vol] 2.5 mmol/L High 0.5-2.2 [facility] Comment on above: Order Comment: Speci men Type: ARTERIAL BLOOD SPECIMENOrdering Facility: [facility] Address: [address] [place] [address] Performed By: #### A LLBG ####[facility] LABCL[facility] [id number] [place] [address] [place] Methemoglobin (Bld) [Mass fraction] 1.5 % Normal 0.0-1.5 [facility] Comment on above: Order Comment: Speci men Type: ARTERIAL BLOOD SPECIMENOrdering Facility: [facility] Address: [address] [place] [address] Performed By: #### A LLBG ####[facility] LABCL[facility] [id number] [place] [address] [place] O2 THERAPY Ventilator Normal [facility] Comment on above: Order Comment: Speci men Type: ARTERIAL BLOOD SPECIMENOrdering Facility: [facility] Address: [address] [place] [address] Performed By: #### A LLBG ####[facility] LABCL[facility] [id number] [place] [address] [place] Oxygen (Bld) [Partial pressure] 179 mm Hg High 85-95 [facility] Comment on above: Order Comment: Speci men Type: ARTERIAL BLOOD SPECIMENOrdering Facility: [facility] Address: [address] [place] [address] Performed By: #### A LLBG ####[facility] LABCL[facility] [id number] [place] [address] [place] Oxyhemoglobin (BldA) [Mass fraction] 96 % Normal 95-98 [facility] Comment on above: Order Comment: Speci men Type: ARTERIAL BLOOD SPECIMENOrdering Facility: [facility] Address: [address] [place] [address] Performed By: #### A LLBG ####[facility] LABCLIA [id number] [place] [address] [place] pH (Bld) 7.37 [pH] Normal 7.35-7.45 [facility] Comment on above: Order Comment: Speci men Type: ARTERIAL BLOOD SPECIMENOrdering Facility: [facility] Address: [address] [place] [address] Performed By: #### A LLBG ####[facility] LABCL[facility] [id number] [place] [address] [place] PO2 / FIO2 RATIO 448 mmHg Normal >300 [facility] Comment on above: Order Comment: Speci men Type: ARTERIAL BLOOD SPECIMENOrdering Facility: [facility] Address: [address] [place] [address] Performed By: #### A LLBG ####[facility] LABCL[facility] [id number] [place] [address] [place] Potassium [Moles/Vol] 4.8 mmol/L Normal 3.5-5.0 [facility] Comment on above: Order Comment: Speci men Type: ARTERIAL BLOOD SPECIMENOrdering Facility: [facility] Address: [address] [place] [address] Performed By: #### A LLBG ####[facility] LABCL[facility] [id number] [place] [address] [place] Sodium [Moles/Vol] 135 mmol/L Low 136-144 [facility] Comment on above: Order Comment: Speci men Type: ARTERIAL BLOOD SPECIMENOrdering Facility: [facility] Address: [address] [place] [address] Performed By: #### A LLBG ####[facility]CL[facility] [id number] [place] [address] [place] Base deficit (BldA) [Moles/Vol] -1 mmol/L Normal -2-0 [facility] Comment on above: Order Comment: Speci men Type: ARTERIAL BLOOD SPECIMENOrdering Facility: [facility] Address: [address] [place] [address] Performed By: #### A LLBG ####[facility] [id number] [place] [address] [place] Calcium.ionized (Bld) [Mass/Vol] 1.26 mmol/L Normal 1.08-1.30 [facility] Comment on above: Order Comment: Speci men Type: ARTERIAL BLOOD SPECIMENOrdering Facility: [facility] Address: [address] [place] [address] Performed By: #### A LLBG ####[facility] [id number] [place] [address] [place] Calcium.ionized adjusted to pH 7.4 (BldA) [Moles/Vol] 1.22 mmol/L Normal 1.08-1.30 [facility] Comment on above: Order Comment: Speci men Type: ARTERIAL BLOOD SPECIMENOrdering Facility: [facility] Address: [address] [place] [address] Performed By: #### A LLBG ####[facility] [id number] [place] [address] [place] Carboxyhemoglobin (BldA) [Mass fraction] 1.6 % Normal 0.0-2.0 [facility] Comment on above: Order Comment: Speci men Type: ARTERIAL BLOOD SPECIMENOrdering Facility: [facility] Address: [address] [place] [address] Result Comment: Carb oxyhemoglobin Reference Range for Smokers: 2.0-8.0% Performed By: #### A LLBG ####[facility] [id number] [place] [address] [place] CO2 (Bld) [Partial pressure] 49 mm Hg High 36-46 [facility] Comment on above: Order Comment: Speci men Type: ARTERIAL BLOOD SPECIMENOrdering Facility: [facility] Address: [address] [place] [address] Performed By: #### A LLBG ####[facility] LABCL[facility] [id number] [place] [address] [place] CO2 adjusted to patient's actual temperature (Bld) [Partial pressure] 49 mmHg High 36-46 [facility] Comment on above: Order Comment: Speci men Type: ARTERIAL BLOOD SPECIMENOrdering Facility: [facility] Address: [address] [place] [address] Performed By: #### A LLBG ####[facility] [id number] [place] [address] [place] Glucose [Mass/Vol] 140 mg/dL High 60-105 [facility] Comment on above: Order Comment: Speci men Type: ARTERIAL BLOOD SPECIMENOrdering Facility: [facility] Address: [address] [place] [address] Performed By: #### A LLBG ####[facility] [id number] [place] [address] [place] HCO3 (Bld) [Moles/Vol] 25 mmol/L Normal 22-26 [facility] Comment on above: Order Comment: Speci men Type: ARTERIAL BLOOD SPECIMENOrdering Facility: [facility] Address: [address] [place] [address] Performed By: #### A LLBG ####[facility] [id number] [place] [address] [place] Hematocrit (Bld) [Volume fraction] 30.8 % Low 36.0-46.0 [facility] Comment on above: Order Comment: Speci men Type: ARTERIAL BLOOD SPECIMENOrdering Facility: [facility] Address: [address] [place] [address] Performed By: #### A LLBG ####[facility] [id number] [place] [address] [place] Hemoglobin (Bld) [Mass/Vol] 10.0 g/dL Low 11.5-15.5 [facility] Comment on above: Order Comment: Speci men Type: ARTERIAL BLOOD SPECIMENOrdering Facility: [facility] Address: [address] [place] [address] Performed By: #### A LLBG ####[facility] [id number] [place] [address] [place] Lactate [Moles/Vol] 2.6 mmol/L High 0.5-2.2 [facility] Comment on above: Order Comment: Speci men Type: ARTERIAL BLOOD SPECIMENOrdering Facility: [facility] Address: [address] [place] [address] Performed By: #### A LLBG ####[facility]CL[facility] [id number] [place] [address] [place] Methemoglobin (Bld) [Mass fraction] 1.5 % Normal 0.0-1.5 [facility] Comment on above: Order Comment: Speci men Type: ARTERIAL BLOOD SPECIMENOrdering Facility: [facility] Address: [address] [place] [address] Performed By: #### A LLBG ####[facility] [id number] [place] [address] [place] Oxygen (Bld) [Partial pressure] 200 mm Hg High 85-95 [facility] Comment on above: Order Comment: Speci men Type: ARTERIAL BLOOD SPECIMENOrdering Facility: [facility] Address: [address] [place] [address] Performed By: #### A LLBG ####[facility]CL[facility] [id number] [place] [address] [place] Oxygen adjusted to patient's actual temperature (Bld) [Partial pressure] 200 mmHg High 85-95 [facility] Comment on above: Order Comment: Speci men Type: ARTERIAL BLOOD SPECIMENOrdering Facility: [facility] Address: [address] [place] [address] Performed By: #### A LLBG ####[facility] [id number] [place] [address] [place] Oxyhemoglobin (BldA) [Mass fraction] 96 % Normal 95-98 [facility] Comment on above: Order Comment: Speci men Type: ARTERIAL BLOOD SPECIMENOrdering Facility: [facility] Address: [address] [place] [address] Performed By: #### A LLBG ####[facility] [id number] [place] [address] [place] pH (Bld) 7.33 [pH] Low 7.35-7.45 [facility] Comment on above: Order Comment: Speci men Type: ARTERIAL BLOOD SPECIMENOrdering Facility: [facility] Address: [address] [place] [address] Performed By: #### A LLBG ####[facility] [id number] [place] [address] [place] pH adjusted to patient's actual temperature (Bld) 7.33 Low 7.35-7.45 [facility] Comment on above: Order Comment: Speci men Type: ARTERIAL BLOOD SPECIMENOrdering Facility: [facility] Address: [address] [place] [address] Performed By: #### A LLBG ####[facility]CL[facility] [id number] [place] [address] [place] Potassium [Moles/Vol] 3.6 mmol/L Normal 3.5-5.0 [facility] Comment on above: Order Comment: Speci men Type: ARTERIAL BLOOD SPECIMENOrdering Facility: [facility] Address: [address] [place] [address] Performed By: #### A LLBG ####[facility] LABIA [id number] [place] [address] [place] Sodium [Moles/Vol] 134 mmol/L Low 136-144 [facility] Comment on above: Order Comment: Speci men Type: ARTERIAL BLOOD SPECIMENOrdering Facility: [facility] Address: [address] [place] [address] Performed By: #### A LLBG ####[facility] LABIA [id number] [place] [address] [place] Base excess Calc (Bld) [Moles/Vol] 0 mmol/L Normal 0-2 [facility] Comment on above: Order Comment: Speci men Type: ARTERIAL BLOOD SPECIMENOrdering Facility: [facility] Address: [address] [place] [address] Performed By: #### A LLBG ####[facility] [id number] [place] [address] [place] Calcium.ionized (Bld) [Mass/Vol] 1.10 mmol/L Normal 1.08-1.30 [facility] Comment on above: Order Comment: Speci men Type: ARTERIAL BLOOD SPECIMENOrdering Facility: [facility] Address: [address] [place] [address] Performed By: #### A LLBG ####[facility] LABIA [id number] [place] [address] [place] Calcium.ionized adjusted to pH 7.4 (BldA) [Moles/Vol] 1.11 mmol/L Normal 1.08-1.30 [facility] Comment on above: Order Comment: Speci men Type: ARTERIAL BLOOD SPECIMENOrdering Facility: [facility] Address: [address] [place] [address] Performed By: #### A LLBG ####[facility]CL[facility] [id number] [place] [address] [place] Carboxyhemoglobin (BldA) [Mass fraction] 2.1 % High 0.0-2.0 [facility] Comment on above: Order Comment: Speci men Type: ARTERIAL BLOOD SPECIMENOrdering Facility: [facility] Address: [address] [place] [address] Result Comment: Carb oxyhemoglobin Reference Range for Smokers: 2.0-8.0% Performed By: #### A LLBG ####[facility] LABIA [id number] [place] [address] [place] CO2 (Bld) [Partial pressure] 39 mm Hg Normal 36-46 [facility] Comment on above: Order Comment: Speci men Type: ARTERIAL BLOOD SPECIMENOrdering Facility: [facility] Address: [address] [place] [address] Performed By: #### A LLBG ####[facility]IA [id number] [place] [address] [place] CO2 adjusted to patient's actual temperature (Bld) [Partial pressure] 39 mmHg Normal 36-46 [facility] Comment on above: Order Comment: Speci men Type: ARTERIAL BLOOD SPECIMENOrdering Facility: [facility] Address: [address] [place] [address] Performed By: #### A LLBG ####[facility] LABIA [id number] [place] [address] [place] Glucose [Mass/Vol] 209 mg/dL High 60-105 [facility] Comment on above: Order Comment: Speci men Type: ARTERIAL BLOOD SPECIMENOrdering Facility: [facility] Address: [address] [place] [address] Performed By: #### A LLBG ####[facility] [id number] [place] [address] [place] HCO3 (Bld) [Moles/Vol] 24 mmol/L Normal 22-26 [facility] Comment on above: Order Comment: Speci men Type: ARTERIAL BLOOD SPECIMENOrdering Facility: [facility] Address: [address] [place] [address] Performed By: #### A LLBG ####[facility] LABIA [id number] [place] [address] [place] Hematocrit (Bld) [Volume fraction] 28.4 % Low 36.0-46.0 [facility] Comment on above: Order Comment: Speci men Type: ARTERIAL BLOOD SPECIMENOrdering Facility: [facility] Address: [address] [place] [address] Performed By: #### A LLBG ####[facility] [id number] [place] [address] [place] Hemoglobin (Bld) [Mass/Vol] 9.1 g/dL Low 11.5-15.5 [facility] Comment on above: Order Comment: Speci men Type: ARTERIAL BLOOD SPECIMENOrdering Facility: [facility] Address: [address] [place] [address] Performed By: #### A LLBG ####[facility] [id number] [place] [address] [place] Lactate [Moles/Vol] 3.9 mmol/L High 0.5-2.2 [facility] Comment on above: Order Comment: Speci men Type: ARTERIAL BLOOD SPECIMENOrdering Facility: [facility] Address: [address] [place] [address] Performed By: #### A LLBG ####[facility] LABIA [id number] [place] [address] [place] Methemoglobin (Bld) [Mass fraction] 0.9 % Normal 0.0-1.5 [facility] Comment on above: Order Comment: Speci men Type: ARTERIAL BLOOD SPECIMENOrdering Facility: [facility] Address: [address] [place] [address] Performed By: #### A LLBG ####[facility]CL[facility] [id number] [place] [address] [place] Oxygen (Bld) [Partial pressure] 376 mm Hg High 85-95 [facility] Comment on above: Order Comment: Speci men Type: ARTERIAL BLOOD SPECIMENOrdering Facility: [facility] Address: [address] [place] [address] Performed By: #### A LLBG ####[facility]CL[facility] [id number] [place] [address] [place] Oxygen adjusted to patient's actual temperature (Bld) [Partial pressure] 376 mmHg High 85-95 [facility] Comment on above: Order Comment: Speci men Type: ARTERIAL BLOOD SPECIMENOrdering Facility: [facility] Address: [address] [place] [address] Performed By: #### A LLBG ####[facility]CL[facility] [id number] [place] [address] [place] Oxyhemoglobin (BldA) [Mass fraction] 97 % Normal 95-98 [facility] Comment on above: Order Comment: Speci men Type: ARTERIAL BLOOD SPECIMENOrdering Facility: [facility] Address: [address] [place] [address] Performed By: #### A LLBG ####[facility]CL[facility] [id number] [place] [address] [place] pH (Bld) 7.41 [pH] Normal 7.35-7.45 [facility] Comment on above: Order Comment: Speci men Type: ARTERIAL BLOOD SPECIMENOrdering Facility: [facility] Address: [address] [place] [address] Performed By: #### A LLBG ####[facility]CL[facility] [id number] [place] [address] [place] pH adjusted to patient's actual temperature (Bld) 7.41 Normal 7.35-7.45 [facility] Comment on above: Order Comment: Speci men Type: ARTERIAL BLOOD SPECIMENOrdering Facility: [facility] Address: [address] [place] [address] Performed By: #### A LLBG ####[facility]CL[facility] [id number] [place] [address] [place] Potassium [Moles/Vol] 4.4 mmol/L Normal 3.5-5.0 [facility] Comment on above: Order Comment: Speci men Type: ARTERIAL BLOOD SPECIMENOrdering Facility: [facility] Address: [address] [place] [address] Performed By: #### A LLBG ####[facility]CL[facility] [id number] [place] [address] [place] Sodium [Moles/Vol] 133 mmol/L Low 136-144 [facility] Comment on above: Order Comment: Speci men Type: ARTERIAL BLOOD SPECIMENOrdering Facility: [facility] Address: [address] [place] [address] Performed By: #### A LLBG ####[facility]CL[facility] [id number] [place] [address] [place] Base excess Calc (Bld) [Moles/Vol] 0 mmol/L Normal 0-2 [facility] Comment on above: Order Comment: Speci men Type: ARTERIAL BLOOD SPECIMENOrdering Facility: [facility] Address: [address] [place] [address] Performed By: #### A LLBG ####[facility] LABIA [id number] [place] [address] [place] Calcium.ionized (Bld) [Mass/Vol] 1.08 mmol/L Normal 1.08-1.30 [facility] Comment on above: Order Comment: Speci men Type: ARTERIAL BLOOD SPECIMENOrdering Facility: [facility] Address: [address] [place] [address] Performed By: #### A LLBG ####[facility] LABIA [id number] [place] [address] [place] Calcium.ionized adjusted to pH 7.4 (BldA) [Moles/Vol] 1.06 mmol/L Low 1.08-1.30 [facility] Comment on above: Order Comment: Speci men Type: ARTERIAL BLOOD SPECIMENOrdering Facility: [facility] Address: [address] [place] [address] Performed By: #### A LLBG ####[facility] [id number] [place] [address] [place] Carboxyhemoglobin (BldA) [Mass fraction] 2.0 % Normal 0.0-2.0 [facility] Comment on above: Order Comment: Speci men Type: ARTERIAL BLOOD SPECIMENOrdering Facility: [facility] Address: [address] [place] [address] Result Comment: Carb oxyhemoglobin Reference Range for Smokers: 2.0-8.0% Performed By: #### A LLBG ####[facility] LABIA [id number] [place] [address] [place] CO2 (Bld) [Partial pressure] 44 mm Hg Normal 36-46 [facility] Comment on above: Order Comment: Speci men Type: ARTERIAL BLOOD SPECIMENOrdering Facility: [facility] Address: [address] [place] [address] Performed By: #### A LLBG ####[facility] LABIA [id number] [place] [address] [place] CO2 adjusted to patient's actual temperature (Bld) [Partial pressure] 44 mmHg Normal 36-46 [facility] Comment on above: Order Comment: Speci men Type: ARTERIAL BLOOD SPECIMENOrdering Facility: [facility] Address: [address] [place] [address] Performed By: #### A LLBG ####[facility]CL[facility] [id number] [place] [address] [place] Glucose [Mass/Vol] 253 mg/dL High 60-105 [facility] Comment on above: Order Comment: Speci men Type: ARTERIAL BLOOD SPECIMENOrdering Facility: [facility] Address: [address] [place] [address] Performed By: #### A LLBG ####[facility]CL[facility] [id number] [place] [address] [place] HCO3 (Bld) [Moles/Vol] 25 mmol/L Normal 22-26 [facility] Comment on above: Order Comment: Speci men Type: ARTERIAL BLOOD SPECIMENOrdering Facility: [facility] Address: [address] [place] [address] Performed By: #### A LLBG ####[facility] LABCL[facility] [id number] [place] [address] [place] Hematocrit (Bld) [Volume fraction] 28.3 % Low 36.0-46.0 [facility] Comment on above: Order Comment: Speci men Type: ARTERIAL BLOOD SPECIMENOrdering Facility: [facility] Address: [address] [place] [address] Performed By: #### A LLBG ####[facility]CL[facility] [id number] [place] [address] [place] Hemoglobin (Bld) [Mass/Vol] 9.1 g/dL Low 11.5-15.5 [facility] Comment on above: Order Comment: Speci men Type: ARTERIAL BLOOD SPECIMENOrdering Facility: [facility] Address: [address] [place] [address] Performed By: #### A LLBG ####[facility]CL[facility] [id number] [place] [address] [place] Lactate [Moles/Vol] 4.4 mmol/L High 0.5-2.2 [facility] Comment on above: Order Comment: Speci men Type: ARTERIAL BLOOD SPECIMENOrdering Facility: [facility] Address: [address] [place] [id number] Performed By: #### A LLBG ####[facility] LABCLIA [id number] [address] [address] [place] Methemoglobin (Bld) [Mass fraction] 0.9 % Normal 0.0-1.5 [facility] Comment on above: Order Comment: Speci men Type: ARTERIAL BLOOD SPECIMENOrdering Facility: [facility] Address: [address] [place] [address] Performed By: #### A LLBG ####[facility] LABCL[facility] [id number] [place] [address] [place] Oxygen (Bld) [Partial pressure] 295 mm Hg High 85-95 [facility] Comment on above: Order Comment: Speci men Type: ARTERIAL BLOOD SPECIMENOrdering Facility: [facility] Address: [address] [place] [address] Performed By: #### A LLBG ####[facility] LABCL[facility] [id number] [place] [address] [place] Oxygen adjusted to patient's actual temperature (Bld) [Partial pressure] 295 mmHg High 85-95 [facility] Comment on above: Order Comment: Speci men Type: ARTERIAL BLOOD SPECIMENOrdering Facility: [facility] Address: [address] [place] [id number] Performed By: #### A LLBG ####[facility] LABCLIA [id number] [place] [id number] [place] Oxyhemoglobin (BldA) [Mass fraction] 97 % Normal 95-98 [facility] Comment on above: Order Comment: Speci men Type: ARTERIAL BLOOD SPECIMENOrdering Facility: [facility] Address: [address] [place] [id number] Performed By: #### A LLBG ####[facility] LABCL[facility] [id number] [place] [address] [place] pH (Bld) 7.37 [pH] Normal 7.35-7.45 [facility] Comment on above: Order Comment: Speci men Type: ARTERIAL BLOOD SPECIMENOrdering Facility: [facility] Address: [address] [place] [address] Performed By: #### A LLBG ####[facility] LABCL[facility] [id number] [place] [address] [place] pH adjusted to patient's actual temperature (Bld) 7.37 Normal 7.35-7.45 [facility] Comment on above: Order Comment: Speci men Type: ARTERIAL BLOOD SPECIMENOrdering Facility: [facility] Address: [address] [place] [address] Performed By: #### A LLBG ####[facility] LABIA [id number] [place] [address] [place] Potassium [Moles/Vol] 4.9 mmol/L Normal 3.5-5.0 [facility] Comment on above: Order Comment: Speci men Type: ARTERIAL BLOOD SPECIMENOrdering Facility: [facility] Address: [address] [place] [address] Performed By: #### A LLBG ####[facility] LABIA [id number] [place] [address] [place] Sodium [Moles/Vol] 132 mmol/L Low 136-144 [facility] Comment on above: Order Comment: Speci men Type: ARTERIAL BLOOD SPECIMENOrdering Facility: [facility] Address: [address] [place] [address] Performed By: #### A LLBG ####[facility] LAB[facility] [id number] [place] [address] [place] Base deficit (BldA) [Moles/Vol] -3 mmol/L Low -2-0 [facility] Comment on above: Order Comment: Speci men Type: ARTERIAL BLOOD SPECIMENOrdering Facility: [facility] Address: [address] [place] [address] Performed By: #### A LLBG ####[facility] LABCL[facility] [id number] [place] [address] [place] Calcium.ionized (Bld) [Mass/Vol] 1.20 mmol/L Normal 1.08-1.30 [facility] Comment on above: Order Comment: Speci men Type: ARTERIAL BLOOD SPECIMENOrdering Facility: [facility] Address: [address] [place] [address] Performed By: #### A LLBG ####[facility] LABIA [id number] [place] [address] [place] Calcium.ionized adjusted to pH 7.4 (BldA) [Moles/Vol] 1.18 mmol/L Normal 1.08-1.30 [facility] Comment on above: Order Comment: Speci men Type: ARTERIAL BLOOD SPECIMENOrdering Facility: [facility] Address: [address] [place] [address] Performed By: #### A LLBG ####[facility] LABIA [id number] [place] [address] [place] Carboxyhemoglobin (BldA) [Mass fraction] 1.6 % Normal 0.0-2.0 [facility] Comment on above: Order Comment: Speci men Type: ARTERIAL BLOOD SPECIMENOrdering Facility: [facility] Address: [address] [place] [address] Result Comment: Carb oxyhemoglobin Reference Range for Smokers: 2.0-8.0% Performed By: #### A LLBG ####[facility] LABCL[facility] [id number] [place] [address] [place] CO2 (Bld) [Partial pressure] 40 mm Hg Normal 36-46 [facility] Comment on above: Order Comment: Speci men Type: ARTERIAL BLOOD SPECIMENOrdering Facility: [facility] Address: [address] [place] [address] Performed By: #### A LLBG ####[facility] LABCL[facility] [id number] [place] [address] [place] CO2 adjusted to patient's actual temperature (Bld) [Partial pressure] 40 mmHg Normal 36-46 [facility] Comment on above: Order Comment: Speci men Type: ARTERIAL BLOOD SPECIMENOrdering Facility: [facility] Address: [address] [place] [address] Performed By: #### A LLBG ####[facility] LABCL[facility] [id number] [place] [address] [place] Glucose [Mass/Vol] 209 mg/dL High 60-105 [facility] Comment on above: Order Comment: Speci men Type: ARTERIAL BLOOD SPECIMENOrdering Facility: [facility] Address: [address] [place] [address] Performed By: #### A LLBG ####[facility] LABCL[facility] [id number] [place] [address] [place] HCO3 (Bld) [Moles/Vol] 22 mmol/L Normal 22-26 [facility] Comment on above: Order Comment: Speci men Type: ARTERIAL BLOOD SPECIMENOrdering Facility: [facility] Address: [address] [place] [address] Performed By: #### A LLBG ####[facility] LABCLIA [id number] [place] [address] [place] Hematocrit (Bld) [Volume fraction] 33.5 % Low 36.0-46.0 [facility] Comment on above: Order Comment: Speci men Type: ARTERIAL BLOOD SPECIMENOrdering Facility: [facility] Address: [address] [place] [address] Performed By: #### A LLBG ####[facility] LABCL[facility] [id number] [place] [address] [place] Hemoglobin (Bld) [Mass/Vol] 10.9 g/dL Low 11.5-15.5 [facility] Comment on above: Order Comment: Speci men Type: ARTERIAL BLOOD SPECIMENOrdering Facility: [facility] Address: [address] [place] [address] Performed By: #### A LLBG ####[facility] LABCL[facility] [id number] [place] [address] [place] Lactate [Moles/Vol] 3.0 mmol/L High 0.5-2.2 [facility] Comment on above: Order Comment: Speci men Type: ARTERIAL BLOOD SPECIMENOrdering Facility: [facility] Address: [address] [place] [address] Performed By: #### A LLBG ####[facility] LABCLIA [id number] [place] [address] [place] Methemoglobin (Bld) [Mass fraction] 1.6 % High 0.0-1.5 [facility] Comment on above: Order Comment: Speci men Type: ARTERIAL BLOOD SPECIMENOrdering Facility: [facility] Address: [address] [place] [address] Performed By: #### A LLBG ####[facility] LABCLIA [id number] [place] [address] [place] Oxygen (Bld) [Partial pressure] 359 mm Hg High 85-95 [facility] Comment on above: Order Comment: Speci men Type: ARTERIAL BLOOD SPECIMENOrdering Facility: [facility] Address: [address] [place] [address] Performed By: #### A LLBG ####[facility] LABCLIA [id number] [place] [id number] [place] Oxygen adjusted to patient's actual temperature (Bld) [Partial pressure] 359 mmHg High 85-95 [facility] Comment on above: Order Comment: Speci men Type: ARTERIAL BLOOD SPECIMENOrdering Facility: [facility] Address: [address] [place] [address] Performed By: #### A LLBG ####[facility] LABCLIA [id number] [place] [address] [place] Oxyhemoglobin (BldA) [Mass fraction] 96 % Normal 95-98 [facility] Comment on above: Order Comment: Speci men Type: ARTERIAL BLOOD SPECIMENOrdering Facility: [facility] Address: [address] [place] [address] Performed By: #### A LLBG ####[facility] LABCLIA [id number] [place] [address] [place] pH (Bld) 7.36 [pH] Normal 7.35-7.45 [facility] Comment on above: Order Comment: Speci men Type: ARTERIAL BLOOD SPECIMENOrdering Facility: [facility] Address: [address] [place] [address] Performed By: #### A LLBG ####[facility] LABCLIA [id number] [place] [address] [place] pH adjusted to patient's actual temperature (Bld) 7.36 Normal 7.35-7.45 [facility] Comment on above: Order Comment: Speci men Type: ARTERIAL BLOOD SPECIMENOrdering Facility: [facility] Address: [address] [place] [address] Performed By: #### A LLBG ####[facility] LABCLIA [id number] [place] [address] [place] Potassium [Moles/Vol] 5.0 mmol/L Normal 3.5-5.0 [facility] Comment on above: Order Comment: Speci men Type: ARTERIAL BLOOD SPECIMENOrdering Facility: [facility] Address: [address] [place] [address] Performed By: #### A LLBG ####[facility] LABCLIA [id number] [place] [address] [place] Sodium [Moles/Vol] 133 mmol/L Low 136-144 [facility] Comment on above: Order Comment: Speci men Type: ARTERIAL BLOOD SPECIMENOrdering Facility: [facility] Address: [address] [place] [address] Performed By: #### A LLBG ####[facility] LABIA [id number] [place] [address] [place] Base deficit (BldA) [Moles/Vol] -3 mmol/L Low -2-0 [facility] Comment on above: Order Comment: Speci men Type: ARTERIAL BLOOD SPECIMENOrdering Facility: [facility] Address: [address] [place] [address] Performed By: #### A LLBG ####[facility] [id number] [place] [address] [place] Calcium.ionized (Bld) [Mass/Vol] 1.16 mmol/L Normal 1.08-1.30 [facility] Comment on above: Order Comment: Speci men Type: ARTERIAL BLOOD SPECIMENOrdering Facility: [facility] Address: [address] [place] [address] Performed By: #### A LLBG ####[facility] [id number] [place] [address] [place] Calcium.ionized adjusted to pH 7.4 (BldA) [Moles/Vol] 1.14 mmol/L Normal 1.08-1.30 [facility] Comment on above: Order Comment: Speci men Type: ARTERIAL BLOOD SPECIMENOrdering Facility: [facility] Address: [address] [place] [address] Performed By: #### A LLBG ####[facility] LAB[facility] [id number] [place] [address] [place] Carboxyhemoglobin (BldA) [Mass fraction] 1.0 % Normal 0.0-2.0 [facility] Comment on above: Order Comment: Speci men Type: ARTERIAL BLOOD SPECIMENOrdering Facility: [facility] Address: [address] [place] [address] Result Comment: Carb oxyhemoglobin Reference Range for Smokers: 2.0-8.0% Performed By: #### A LLBG ####[facility] LABCLIA [id number] [place] [address] [place] CO2 (Bld) [Partial pressure] 38 mm Hg Normal 36-46 [facility] Comment on above: Order Comment: Speci men Type: ARTERIAL BLOOD SPECIMENOrdering Facility: [facility] Address: [address] [place] [address] Performed By: #### A LLBG ####[facility] LABCLIA [id number] [place] [address] [place] CO2 adjusted to patient's actual temperature (Bld) [Partial pressure] 38 mmHg Normal 36-46 [facility] Comment on above: Order Comment: Speci men Type: ARTERIAL BLOOD SPECIMENOrdering Facility: [facility] Address: [address] [place] [address] Performed By: #### A LLBG ####[facility] LABCLIA [id number] [place] [address] [place] Glucose [Mass/Vol] 242 mg/dL High 60-105 [facility] Comment on above: Order Comment: Speci men Type: ARTERIAL BLOOD SPECIMENOrdering Facility: [facility] Address: [address] [place] [address] Performed By: #### A LLBG ####[facility] LABCLIA [id number] [place] [address] [place] HCO3 (Bld) [Moles/Vol] 21 mmol/L Low 22-26 [facility] Comment on above: Order Comment: Speci men Type: ARTERIAL BLOOD SPECIMENOrdering Facility: [facility] Address: [address] [place] [address] Performed By: #### A LLBG ####[facility] LABIA [id number] [place] [address] [place] Hematocrit (Bld) [Volume fraction] 33.0 % Low 36.0-46.0 [facility] Comment on above: Order Comment: Speci men Type: ARTERIAL BLOOD SPECIMENOrdering Facility: [facility] Address: [address] [place] [address] Performed By: #### A LLBG ####[facility] LABIA [id number] [place] [address] [place] Hemoglobin (Bld) [Mass/Vol] 10.7 g/dL Low 11.5-15.5 [facility] Comment on above: Order Comment: Speci men Type: ARTERIAL BLOOD SPECIMENOrdering Facility: [facility] Address: [address] [place] [address] Performed By: #### A LLBG ####[facility] LABIA [id number] [place] [address] [place] Methemoglobin (Bld) [Mass fraction] 0.9 % Normal 0.0-1.5 [facility] Comment on above: Order Comment: Speci men Type: ARTERIAL BLOOD SPECIMENOrdering Facility: [facility] Address: [address] [place] [address] Performed By: #### A LLBG ####[facility] LABIA [id number] [place] [address] [place] Oxygen (Bld) [Partial pressure] 439 mm Hg High 85-95 [facility] Comment on above: Order Comment: Speci men Type: ARTERIAL BLOOD SPECIMENOrdering Facility: [facility] Address: [address] [place] [address] Performed By: #### A LLBG ####[facility] LABIA [id number] [place] [address] [place] Oxygen adjusted to patient's actual temperature (Bld) [Partial pressure] 439 mmHg High 85-95 [facility] Comment on above: Order Comment: Speci men Type: ARTERIAL BLOOD SPECIMENOrdering Facility: [facility] Address: [address] [place] [address] Performed By: #### A LLBG ####[facility] LABCLIA [id number] [place] [address] [place] Oxyhemoglobin (BldA) [Mass fraction] 96 % Normal 95-98 [facility] Comment on above: Order Comment: Speci men Type: ARTERIAL BLOOD SPECIMENOrdering Facility: [facility] Address: [address] [place] [address] Performed By: #### A LLBG ####[facility] LABCLIA [id number] [place] [address] [place] pH (Bld) 7.37 [pH] Normal 7.35-7.45 [facility] Comment on above: Order Comment: Speci men Type: ARTERIAL BLOOD SPECIMENOrdering Facility: [facility] Address: [address] [place] [address] Performed By: #### A LLBG ####[facility] LABCLIA [id number] [place] [address] [place] pH adjusted to patient's actual temperature (Bld) 7.37 Normal 7.35-7.45 [facility] Comment on above: Order Comment: Speci men Type: ARTERIAL BLOOD SPECIMENOrdering Facility: [facility] Address: [address] [place] [address] Performed By: #### A LLBG ####[facility] LABCLIA [id number] [place] [address] [place] Potassium [Moles/Vol] 5.8 mmol/L High 3.5-5.0 [facility] Comment on above: Order Comment: Speci men Type: ARTERIAL BLOOD SPECIMENOrdering Facility: [facility] Address: [address] [place] [address] Performed By: #### A LLBG ####[facility] LABCLIA [id number] [place] [address] [place] Sodium [Moles/Vol] 129 mmol/L Low 136-144 [facility] Comment on above: Order Comment: Speci men Type: ARTERIAL BLOOD SPECIMENOrdering Facility: [facility] Address: [address] [place] [address] Performed By: #### A LLBG ####[facility] LABIA [id number] [place] [address] [place] Base deficit (BldA) [Moles/Vol] -2 mmol/L Normal -2-0 [facility] Comment on above: Order Comment: Speci men Type: ARTERIAL BLOOD SPECIMENOrdering Facility: [facility] Address: [address] [place] [address] Performed By: #### A LLBG ####[facility] LABIA [id number] [place] [address] [place] Calcium.ionized (Bld) [Mass/Vol] 1.29 mmol/L Normal 1.08-1.30 [facility] Comment on above: Order Comment: Speci men Type: ARTERIAL BLOOD SPECIMENOrdering Facility: [facility] Address: [address] [place] [address] Performed By: #### A LLBG ####[facility] LABIA [id number] [place] [address] [place] Calcium.ionized adjusted to pH 7.4 (BldA) [Moles/Vol] 1.24 mmol/L Normal 1.08-1.30 [facility] Comment on above: Order Comment: Speci men Type: ARTERIAL BLOOD SPECIMENOrdering Facility: [facility] Address: [address] [place] [address] Performed By: #### A LLBG ####[facility] LABCLIA [id number] [place] [address] [place] Carboxyhemoglobin (BldA) [Mass fraction] 1.7 % Normal 0.0-2.0 [facility] Comment on above: Order Comment: Speci men Type: ARTERIAL BLOOD SPECIMENOrdering Facility: [facility] Address: [address] [place] [address] Result Comment: Carb oxyhemoglobin Reference Range for Smokers: 2.0-8.0% Performed By: #### A LLBG ####[facility] LABCLIA [id number] [place] [address] [place] CO2 (Bld) [Partial pressure] 45 mm Hg Normal 36-46 [facility] Comment on above: Order Comment: Speci men Type: ARTERIAL BLOOD SPECIMENOrdering Facility: [facility] Address: [address] [place] [address] Performed By: #### A LLBG ####[facility] LABIA [id number] [place] [address] [place] CO2 adjusted to patient's actual temperature (Bld) [Partial pressure] 45 mmHg Normal 36-46 [facility] Comment on above: Order Comment: Speci men Type: ARTERIAL BLOOD SPECIMENOrdering Facility: [facility] Address: [address] [place] [address] Performed By: #### A LLBG ####[facility] LABCLIA [id number] [place] [address] [place] Glucose [Mass/Vol] 197 mg/dL High 60-105 [facility] Comment on above: Order Comment: Speci men Type: ARTERIAL BLOOD SPECIMENOrdering Facility: [facility] Address: [address] [place] [address] Performed By: #### A LLBG ####[facility] LABIA [id number] [place] [address] [place] HCO3 (Bld) [Moles/Vol] 23 mmol/L Normal 22-26 [facility] Comment on above: Order Comment: Speci men Type: ARTERIAL BLOOD SPECIMENOrdering Facility: [facility] Address: [address] [place] [address] Performed By: #### A LLBG ####[facility] LABIA [id number] [place] [address] [place] Hematocrit (Bld) [Volume fraction] 39.4 % Normal 36.0-46.0 [facility] Comment on above: Order Comment: Speci men Type: ARTERIAL BLOOD SPECIMENOrdering Facility: [facility] Address: [address] [place] [address] Performed By: #### A LLBG ####[facility] LABIA [id number] [place] [address] [place] Hemoglobin (Bld) [Mass/Vol] 12.8 g/dL Normal 11.5-15.5 [facility] Comment on above: Order Comment: Speci men Type: ARTERIAL BLOOD SPECIMENOrdering Facility: [facility] Address: [address] [place] [address] Performed By: #### A LLBG ####[facility] LABIA [id number] [place] [address] [place] Lactate [Moles/Vol] 1.4 mmol/L Normal 0.5-2.2 [facility] Comment on above: Order Comment: Speci men Type: ARTERIAL BLOOD SPECIMENOrdering Facility: [facility] Address: [address] [place] [address] Performed By: #### A LLBG ####[facility] LABIA [id number] [place] [address] [place] Methemoglobin (Bld) [Mass fraction] 1.6 % High 0.0-1.5 [facility] Comment on above: Order Comment: Speci men Type: ARTERIAL BLOOD SPECIMENOrdering Facility: [facility] Address: [address] [place] [address] Performed By: #### A LLBG ####[facility] LABCLIA [id number] [place] [address] [place] Oxygen (Bld) [Partial pressure] 168 mm Hg High 85-95 [facility] Comment on above: Order Comment: Speci men Type: ARTERIAL BLOOD SPECIMENOrdering Facility: [facility] Address: [address] [place] [address] Performed By: #### A LLBG ####[facility] LABCLIA [id number] [place] [address] [place] Oxygen adjusted to patient's actual temperature (Bld) [Partial pressure] 168 mmHg High 85-95 [facility] Comment on above: Order Comment: Speci men Type: ARTERIAL BLOOD SPECIMENOrdering Facility: [facility] Address: [address] [place] [address] Performed By: #### A LLBG ####[facility] LABCLIA [id number] [place] [address] [place] Oxyhemoglobin (BldA) [Mass fraction] 96 % Normal 95-98 [facility] Comment on above: Order Comment: Speci men Type: ARTERIAL BLOOD SPECIMENOrdering Facility: [facility] Address: [address] [place] [address] Performed By: #### A LLBG ####[facility] LABCLIA [id number] [place] [address] [place] pH (Bld) 7.33 [pH] Low 7.35-7.45 [facility] Comment on above: Order Comment: Speci men Type: ARTERIAL BLOOD SPECIMENOrdering Facility: [facility] Address: [address] [place] [address] Performed By: #### A LLBG ####[facility] LABCLIA [id number] [place] [address] [place] pH adjusted to patient's actual temperature (Bld) 7.33 Low 7.35-7.45 [facility] Comment on above: Order Comment: Speci men Type: ARTERIAL BLOOD SPECIMENOrdering Facility: [facility] Address: [address] [place] [address] Performed By: #### A LLBG ####[facility] LABCLIA [id number] [place] [address] [place] Potassium [Moles/Vol] 4.3 mmol/L Normal 3.5-5.0 [facility] Comment on above: Order Comment: Speci men Type: ARTERIAL BLOOD SPECIMENOrdering Facility: [facility] Address: [address] [place] [address] Performed By: #### A LLBG ####[facility] LABCLIA [id number] [place] [address] [place] Sodium [Moles/Vol] 135 mmol/L Low 136-144 [facility] Comment on above: Order Comment: Speci men Type: ARTERIAL BLOOD SPECIMENOrdering Facility: [facility] Address: [address] [place] [address] Performed By: #### A LLBG ####[facility] LABIA [id number] [place] [address] [place] Base deficit (BldA) [Moles/Vol] -2 mmol/L Normal -2-0 [facility] Comment on above: Order Comment: Speci men Type: ARTERIAL BLOOD SPECIMENOrdering Facility: [facility] Address: [address] [place] [address] Performed By: #### A LLBG ####[facility] LABIA [id number] [place] [address] [place] Calcium.ionized (Bld) [Mass/Vol] 1.28 mmol/L Normal 1.08-1.30 [facility] Comment on above: Order Comment: Speci men Type: ARTERIAL BLOOD SPECIMENOrdering Facility: [facility] Address: [address] [place] [address] Performed By: #### A LLBG ####[facility] LABCLIA [id number] [place] [address] [place] Calcium.ionized adjusted to pH 7.4 (BldA) [Moles/Vol] 1.30 mmol/L Normal 1.08-1.30 [facility] Comment on above: Order Comment: Speci men Type: ARTERIAL BLOOD SPECIMENOrdering Facility: [facility] Address: [address] [place] [address] Performed By: #### A LLBG ####[facility] LABCLIA [id number] [place] [address] [place] Carboxyhemoglobin (BldA) [Mass fraction] 2.2 % High 0.0-2.0 [facility] Comment on above: Order Comment: Speci men Type: ARTERIAL BLOOD SPECIMENOrdering Facility: [facility] Address: [address] [place] [address] Result Comment: Carb oxyhemoglobin Reference Range for Smokers: 2.0-8.0% Performed By: #### A LLBG ####[facility] LABCLIA [id number] [place] [address] [place] CO2 (Bld) [Partial pressure] 33 mm Hg Low 36-46 [facility] Comment on above: Order Comment: Speci men Type: ARTERIAL BLOOD SPECIMENOrdering Facility: [facility] Address: [address] [place] [address] Performed By: #### A LLBG ####[facility] LABCLIA [id number] [place] [address] [place] CO2 adjusted to patient's actual temperature (Bld) [Partial pressure] 33 mmHg Low 36-46 [facility] Comment on above: Order Comment: Speci men Type: ARTERIAL BLOOD SPECIMENOrdering Facility: [facility] Address: [address] [place] [address] Performed By: #### A LLBG ####[facility] LABCLIA [id number] [place] [address] [place] Glucose [Mass/Vol] 173 mg/dL High 60-105 [facility] Comment on above: Order Comment: Speci men Type: ARTERIAL BLOOD SPECIMENOrdering Facility: [facility] Address: [address] [place] [address] Performed By: #### A LLBG ####[facility] LABCLIA [id number] [place] [address] [place] HCO3 (Bld) [Moles/Vol] 21 mmol/L Low 22-26 [facility] Comment on above: Order Comment: Speci men Type: ARTERIAL BLOOD SPECIMENOrdering Facility: [facility] Address: [address] [place] [address] Performed By: #### A LLBG ####[facility] LABCLIA [id number] [place] [address] [place] Hematocrit (Bld) [Volume fraction] 41.6 % Normal 36.0-46.0 [facility] Comment on above: Order Comment: Speci men Type: ARTERIAL BLOOD SPECIMENOrdering Facility: [facility] Address: [address] [place] [address] Performed By: #### A LLBG ####[facility] LABCLIA [id number] [place] [address] [place] Hemoglobin (Bld) [Mass/Vol] 13.5 g/dL Normal 11.5-15.5 [facility] Comment on above: Order Comment: Speci men Type: ARTERIAL BLOOD SPECIMENOrdering Facility: [facility] Address: [address] [place] [address] Performed By: #### A LLBG ####[facility] LABCLIA [id number] [place] [address] [place] Lactate [Moles/Vol] 2.1 mmol/L Normal 0.5-2.2 [facility] Comment on above: Order Comment: Speci men Type: ARTERIAL BLOOD SPECIMENOrdering Facility: [facility] Address: [address] [place] [id number] Performed By: #### A LLBG ####[facility] LABCLIA [id number] [address] [address] [place] Methemoglobin (Bld) [Mass fraction] 1.3 % Normal 0.0-1.5 [facility] Comment on above: Order Comment: Speci men Type: ARTERIAL BLOOD SPECIMENOrdering Facility: [facility] Address: [address] [place] [id number] Performed By: #### A LLBG ####[facility] LABCLIA [id number] [place] [address] [place] Oxygen (Bld) [Partial pressure] 114 mm Hg High 85-95 [facility] Comment on above: Order Comment: Speci men Type: ARTERIAL BLOOD SPECIMENOrdering Facility: [facility] Address: [address] [place] [address] Performed By: #### A LLBG ####[facility] LABCLIA [id number] [place] [address] [place] Oxygen adjusted to patient's actual temperature (Bld) [Partial pressure] 114 mmHg High 85-95 [facility] Comment on above: Order Comment: Speci men Type: ARTERIAL BLOOD SPECIMENOrdering Facility: [facility] Address: [address] [place] [address] Performed By: #### A LLBG ####[facility] LABCLIA [id number] [place] [id number] [place] Oxyhemoglobin (BldA) [Mass fraction] 95 % Normal 95-98 [facility] Comment on above: Order Comment: Speci men Type: ARTERIAL BLOOD SPECIMENOrdering Facility: [facility] Address: [address] [place] [id number] Performed By: #### A LLBG ####[facility] LABCLIA [id number] [place] [address] [place] pH (Bld) 7.42 [pH] Normal 7.35-7.45 [facility] Comment on above: Order Comment: Speci men Type: ARTERIAL BLOOD SPECIMENOrdering Facility: [facility] Address: [address] [place] [address] Performed By: #### A LLBG ####[facility] LABCLIA [id number] [place] [address] [place] pH adjusted to patient's actual temperature (Bld) 7.42 Normal 7.35-7.45 [facility] Comment on above: Order Comment: Speci men Type: ARTERIAL BLOOD SPECIMENOrdering Facility: [facility] Address: [address] [place] [address] Performed By: #### A LLBG ####[facility] LABCLIA [id number] [place] [address] [place] Potassium [Moles/Vol] 4.1 mmol/L Normal 3.5-5.0 [facility] Comment on above: Order Comment: Speci men Type: ARTERIAL BLOOD SPECIMENOrdering Facility: [facility] Address: [address] [place] [address] Performed By: #### A LLBG ####[facility] LABIA [id number] [place] [address] [place] Sodium [Moles/Vol] 133 mmol/L Low 136-144 [facility] Comment on above: Order Comment: Speci men Type: ARTERIAL BLOOD SPECIMENOrdering Facility: [facility] Address: [address] [place] [address] Performed By: #### A LLBG ####[facility] LABCLIA [id number] [place] [address] [place] ARTERIAL BLOOD GASES WITH IO NIZED MAGNESIUMon 07-29-2023 Base excess Calc (Bld) [Moles/Vol] 0 mmol/L Normal 0-2 [facility] Comment on above: Order Comment: Speci men Type: ARTERIAL BLOOD SPECIMENOrdering Facility: [facility] Address: [address] [place] [address] Performed By: #### A LLMG ####[facility] LABCLIA [id number] [place] [address] [place] Calcium.ionized (Bld) [Mass/Vol] 1.28 mmol/L Normal 1.08-1.30 [facility] Comment on above: Order Comment: Speci men Type: ARTERIAL BLOOD SPECIMENOrdering Facility: [facility] Address: [address] [place] [address] Performed By: #### A LLMG ####[facility] LABCLIA [id number] [place] [address] [place] Calcium.ionized adjusted to pH 7.4 (BldA) [Moles/Vol] 1.27 mmol/L Normal 1.08-1.30 [facility] Comment on above: Order Comment: Speci men Type: ARTERIAL BLOOD SPECIMENOrdering Facility: [facility] Address: [address] [place] [address] Performed By: #### A LLMG ####[facility] LABCLIA [id number] [place] [address] [place] Carboxyhemoglobin (BldA) [Mass fraction] 1.2 % Normal 0.0-2.0 [facility] Comment on above: Order Comment: Speci men Type: ARTERIAL BLOOD SPECIMENOrdering Facility: [facility] Address: [address] [place] [address] Result Comment: Carb oxyhemoglobin Reference Range for Smokers: 2.0-8.0% Performed By: #### A LLMG ####[facility] LABCLIA [id number] [place] [address] [place] CO2 (Bld) [Partial pressure] 42 mm Hg Normal 36-46 [facility] Comment on above: Order Comment: Speci men Type: ARTERIAL BLOOD SPECIMENOrdering Facility: [facility] Address: [address] [place] [address] Performed By: #### A LLMG ####[facility] LABCLIA [id number] [place] [address] [place] CO2 adjusted to patient's actual temperature (Bld) [Partial pressure] 42 mmHg Normal 36-46 [facility] Comment on above: Order Comment: Speci men Type: ARTERIAL BLOOD SPECIMENOrdering Facility: [facility] Address: [address] [place] [address] Performed By: #### A LLMG ####[facility] LABCLIA [id number] [place] [address] [place] Glucose [Mass/Vol] 119 mg/dL High 60-105 [facility] Comment on above: Order Comment: Speci men Type: ARTERIAL BLOOD SPECIMENOrdering Facility: [facility] Address: [address] [place] [address] Performed By: #### A LLMG ####[facility] LABCLIA [id number] [place] [address] [place] HCO3 (Bld) [Moles/Vol] 25 mmol/L Normal 22-26 [facility] Comment on above: Order Comment: Speci men Type: ARTERIAL BLOOD SPECIMENOrdering Facility: [facility] Address: [address] [place] [address] Performed By: #### A LLMG ####[facility] LABCLIA [id number] [place] [address] [place] Hematocrit (Bld) [Volume fraction] 35.4 % Low 36.0-46.0 [facility] Comment on above: Order Comment: Speci men Type: ARTERIAL BLOOD SPECIMENOrdering Facility: [facility] Address: [address] [place], [place] [address] Performed By: #### A LLMG ####[facility] LABCLIA [id number] [place] [address] [place] Hemoglobin (Bld) [Mass/Vol] 11.5 g/dL Normal 11.5-15.5 [facility] Comment on above: Order Comment: Speci men Type: ARTERIAL BLOOD SPECIMENOrdering Facility: [facility] Address: [address] [place] [address] Performed By: #### A LLMG ####[facility] LABIA [id number] [place] [address] [place] Lactate [Moles/Vol] 2.4 mmol/L High 0.5-2.2 [facility] Comment on above: Order Comment: Speci men Type: ARTERIAL BLOOD SPECIMENOrdering Facility: [facility] Address: [address] [place] [address] Performed By: #### A LLMG ####[facility] LABIA [id number] [place] [address] [place] Magnesium [Moles/Vol] 0.51 mmol/L Normal 0.45-0.60 [facility] Comment on above: Order Comment: Speci men Type: ARTERIAL BLOOD SPECIMENOrdering Facility: [facility] Address: [address] [place] [address] Performed By: #### A LLMG ####[facility] LABIA [id number] [place] [address] [place] Methemoglobin (Bld) [Mass fraction] 1.0 % Normal 0.0-1.5 [facility] Comment on above: Order Comment: Speci men Type: ARTERIAL BLOOD SPECIMENOrdering Facility: [facility] Address: [address] [place] [address] Performed By: #### A LLMG ####[facility] LABIA [id number] [place] [address] [place] Oxygen (Bld) [Partial pressure] 150 mm Hg High 85-95 [facility] Comment on above: Order Comment: Speci men Type: ARTERIAL BLOOD SPECIMENOrdering Facility: [facility] Address: [address] [place] [address] Performed By: #### A LLMG ####[facility] LABCLIA [id number] [place] [address] [place] Oxygen adjusted to patient's actual temperature (Bld) [Partial pressure] 150 mmHg High 85-95 [facility] Comment on above: Order Comment: Speci men Type: ARTERIAL BLOOD SPECIMENOrdering Facility: [facility] Address: [address] [place] [address] Performed By: #### A LLMG ####[facility] LABCLIA [id number] [place] [address] [place] Oxyhemoglobin (BldA) [Mass fraction] 97 % Normal 95-98 [facility] Comment on above: Order Comment: Speci men Type: ARTERIAL BLOOD SPECIMENOrdering Facility: [facility] Address: [address] [place] [address] Performed By: #### A LLMG ####[facility] LABCLIA [id number] [place] [address] [place] pH (Bld) 7.39 [pH] Normal 7.35-7.45 [facility] Comment on above: Order Comment: Speci men Type: ARTERIAL BLOOD SPECIMENOrdering Facility: [facility] Address: [address] [place] [address] Performed By: #### A LLMG ####[facility] LABCLIA [id number] [place] [address] [place] pH adjusted to patient's actual temperature (Bld) 7.39 Normal 7.35-7.45 [facility] Comment on above: Order Comment: Speci men Type: ARTERIAL BLOOD SPECIMENOrdering Facility: [facility] Address: [address] [place] [address] Performed By: #### A LLMG ####[facility] LABCLIA [id number] [place] [address] [place] Potassium [Moles/Vol] 3.9 mmol/L Normal 3.5-5.0 [facility] Comment on above: Order Comment: Speci men Type: ARTERIAL BLOOD SPECIMENOrdering Facility: [facility] Address: [address] [place] [address] Performed By: #### A LLMG ####[facility] LABCLIA [id number] [place] [address] [place] Sodium [Moles/Vol] 134 mmol/L Low 136-144 [facility] Comment on above: Order Comment: Speci men Type: ARTERIAL BLOOD SPECIMENOrdering Facility: [facility] Address: [address] [place] [address] Performed By: #### A LLMG ####[facility] LABIA [id number] [place] [address] [place] CBC panel Auto (Bld)on 07-29 Erythrocyte distribution width (RBC) [Ratio] 11.9 % Normal 11.5-15.0 [facility] Comment on above: Order Comment: Speci men Type: BLOOD SPECIMENOrdering Facility: [facility] Address: [address] [place] [address] Performed By: #### 5 8410-2 ####[facility] LABIA [id number] [place] [address] [place] Hematocrit (Bld) [Volume fraction] 35.0 % Low 36.0-46.0 [facility] Comment on above: Order Comment: Speci men Type: BLOOD SPECIMENOrdering Facility: [facility] Address: [address] [place] [address] Performed By: #### 5 8410-2 ####[facility] LABIA [id number] [place] [address] [place] Hemoglobin (Bld) [Mass/Vol] 11.9 g/dL Normal 11.5-15.5 [facility] Comment on above: Order Comment: Speci men Type: BLOOD SPECIMENOrdering Facility: [facility] Address: [address] [place] [address] Performed By: #### 5 8410-2 ####[facility] LABIA [id number] [place] [address] [place] MCH (RBC) [Entitic mass] 31.3 pg Normal 26.0-34.0 [facility] Comment on above: Order Comment: Speci men Type: BLOOD SPECIMENOrdering Facility: [facility] Address: [address] [place] [address] Performed By: #### 5 8410-2 ####[facility] LABIA [id number] [place] [address] [place] MCHC (RBC) [Mass/Vol] 34.0 g/dL Normal 30.5-36.0 [facility] Comment on above: Order Comment: Speci men Type: BLOOD SPECIMENOrdering Facility: [facility] Address: [address] [place] [address] Performed By: #### 5 8410-2 ####[facility] LABIA [id number] [place] [address] [place] MCV (RBC) [Entitic vol] 92.1 fL Normal 80.0-100.0 [facility] Comment on above: Order Comment: Speci men Type: BLOOD SPECIMENOrdering Facility: [facility] Address: [address] [place] [address] Performed By: #### 5 8410-2 ####[facility] LABIA [id number] [place] [address] [place] Nucleated RBC (Bld) [#/Vol] 10*3/uL Normal <0.01 [facility] Comment on above: Order Comment: Speci men Type: BLOOD SPECIMENOrdering Facility: [facility] Address: [address] [place] [address] Performed By: #### 5 8410-2 ####[facility] LABCLIA [id number] [place] [address] [place] Platelet mean volume (Bld) [Entitic vol] 9.8 fL Normal 9.0-12.7 [facility] Comment on above: Order Comment: Speci men Type: BLOOD SPECIMENOrdering Facility: [facility] Address: [address] [place] [address] Performed By: #### 5 8410-2 ####[facility] LABCLIA [id number] [place] [address] [place] Platelets (Bld) [#/Vol] 170 10*3/uL Normal 150-400 [facility] Comment on above: Order Comment: Speci men Type: BLOOD SPECIMENOrdering Facility: [facility] Address: [address] [place] [address] Performed By: #### 5 8410-2 ####[facility] LABIA [id number] [place] [address] [place] RBC (Bld) [#/Vol] 3.80 10*6/uL Low 3.90-5.20 [facility] Comment on above: Order Comment: Speci men Type: BLOOD SPECIMENOrdering Facility: [facility] Address: [address] [place] [address] Performed By: #### 5 8410-2 ####[facility] LABCLIA [id number] [place] [address] [place] WBC (Bld) [#/Vol] 11.18 10*3/uL High 3.70-11.00 [facility] Comment on above: Order Comment: Speci men Type: BLOOD SPECIMENOrdering Facility: [facility] Address: [address] [place] [address] Performed By: #### 5 8410-2 ####[facility] LABCLIA [id number] [place] [id number] [place] Fibrinogen PPP-mCncon 2023 Fibrinogen Coag (PPP) [Mass/Vol] 348 mg/dL Normal 200-400 [facility] Comment on above: Order Comment: Speci men Type: BLOOD SPECIMENOrdering Facility: [facility] Address: [address] [place] [address] Performed By: #### 3 255-7, 47315-0, 79525-4 ####[facility] LABIA [id number] [place] [address] [place] Fibrinogen Coag (PPP) [Mass/Vol] 165 mg/dL Low 200-400 [facility] Comment on above: Order Comment: Speci men Type: BLOOD SPECIMENOrdering Facility: [facility] Address: [address] [place] [address] Performed By: #### 3 255-7 ####[facility] LABIA [id number] [place] [address] [place] Gas + CO Pnl BldVon 07-29-19 24 Lactate [Moles/Vol] 1.4 mmol/L Normal 0.5-2.2 [facility] Comment on above: Order Comment: Speci men Type: VENOUS BLOOD SPECIMENOrdering Facility: [facility] Address: [address] [place] [address] Performed By: #### 2 4344-4 ####[facility] LABIA [id number] [place] [address] [place] Order Comment: Speci men Type: ARTERIAL BLOOD SPECIMENOrdering Facility: [facility] Address: [address] [place] [address] Performed By: #### A LLBG ####[facility] LABIA [id number] [place] [address] [place] Gas and Carbon monoxide pane l (BldV)on 07-29-2023 BASE DEFICIT, VENOUS -3 mmol/L Low -2-[address] [facility] Comment on above: Order Comment: Speci men Type: VENOUS BLOOD SPECIMENOrdering Facility: [facility] Address: [address] [place] [address] Performed By: #### 2 4344-4 ####[facility] LABCLIA [id number] [place] [address] [place] Calcium.ionized (Bld) [Mass/Vol] 1.19 mmol/L Normal 1.08-1.30 [facility] Comment on above: Order Comment: Speci men Type: VENOUS BLOOD SPECIMENOrdering Facility: [facility] Address: [address] [place] [address] Performed By: #### 2 4344-4 ####[facility] LABCLIA [id number] [place] [address] [place] Calcium.ionized adjusted to pH 7.4 (BldA) [Moles/Vol] 1.15 mmol/L Normal 1.08-1.30 [facility] Comment on above: Order Comment: Speci men Type: VENOUS BLOOD SPECIMENOrdering Facility: [facility] Address: [address] [place] [address] Performed By: #### 2 4344-4 ####[facility] LABCLIA [id number] [place] [address] [place] Carboxyhemoglobin (BldV) [Mass fraction] 1.7 % Normal 0.0-2.0 [facility] Comment on above: Order Comment: Speci men Type: VENOUS BLOOD SPECIMENOrdering Facility: [facility] Address: [address] [place] [address] Result Comment: Carb oxyhemoglobin Reference Range for Smokers: 2.0-8.0% Performed By: #### 2 4344-4 ####[facility] LABCLIA [id number] [place] [address] [place] CO2 (BldV) [Partial pressure] 45 mm[Hg] Normal 42-55 [facility] Comment on above: Order Comment: Speci men Type: VENOUS BLOOD SPECIMENOrdering Facility: [facility] Address: [address] [place] [address] Performed By: #### 2 4344-4 ####[facility] LABCLIA [id number] [place] [address] [place] CO2 adjusted to patient's actual temperature (BldV) [Partial pressure] 45 mmHg Normal 42-55 [facility] Comment on above: Order Comment: Speci men Type: VENOUS BLOOD SPECIMENOrdering Facility: [facility] Address: [address] [place] [address] Performed By: #### 2 4344-4 ####[facility] LABCLIA [id number] [place] [address] [place] Glucose [Mass/Vol] 241 mg/dL High 60-105 [facility] Comment on above: Order Comment: Speci men Type: VENOUS BLOOD SPECIMENOrdering Facility: [facility] Address: [address] [place] [address] Performed By: #### 2 4344-4 ####[facility] LABCLIA [id number] [place] [address] [place] HCO3 (Bld) [Moles/Vol] 23 mmol/L Low 24-28 [facility] Comment on above: Order Comment: Speci men Type: VENOUS BLOOD SPECIMENOrdering Facility: [facility] Address: [address] [place] [address] Performed By: #### 2 4344-4 ####[facility] LABCLIA [id number] [place] [address] [place] Hematocrit (Bld) [Volume fraction] 33.3 % Low 36.0-46.0 [facility] Comment on above: Order Comment: Speci men Type: VENOUS BLOOD SPECIMENOrdering Facility: [facility] Address: [address] [place] [address] Performed By: #### 2 4344-4 ####[facility] LABCLIA [id number] [place] [address] [place] Hemoglobin (Bld) [Mass/Vol] 10.8 g/dL Low 11.5-15.5 [facility] Comment on above: Order Comment: Speci men Type: VENOUS BLOOD SPECIMENOrdering Facility: [facility] Address: [address] [place] [address] Performed By: #### 2 4344-4 ####[facility] LABCLIA [id number] [place] [address] [place] Methemoglobin (Bld) [Mass fraction] 1.2 % Normal 0.0-1.5 [facility] Comment on above: Order Comment: Speci men Type: VENOUS BLOOD SPECIMENOrdering Facility: [facility] Address: [address] [place] [address] Performed By: #### 2 4344-4 ####[facility] LABCLIA [id number] [place] [address] [place] Oxygen (BldV) [Partial pressure] 51 mm[Hg] High 35-45 [facility] Comment on above: Order Comment: Speci men Type: VENOUS BLOOD SPECIMENOrdering Facility: [facility] Address: [address] [place], [place] [address] Performed By: #### 2 4344-4 ####[facility] LABCLIA [id number] [place] [address] [place] Oxygen adjusted to patient's actual temperature (BldV) [Partial pressure] 51 mmHg High 35-45 [facility] Comment on above: Order Comment: Speci men Type: VENOUS BLOOD SPECIMENOrdering Facility: [facility] Address: [address] [place], [place] [address] Performed By: #### 2 4344-4 ####[facility] LABCLIA [id number] [address] [address] [place] Oxygen saturation in Venous blood 83 % Normal 60-85 [facility] Comment on above: Order Comment: Speci men Type: VENOUS BLOOD SPECIMENOrdering Facility: [facility] Address: [address] [place] [address] Performed By: #### 2 4344-4 ####[facility] LABCLIA [id number] [address] [address] [place] Oxyhemoglobin (BldV) [Mass fraction] 80 % Normal 60-85 [facility] Comment on above: Order Comment: Speci men Type: VENOUS BLOOD SPECIMENOrdering Facility: [facility] Address: [address] [place] [address] Performed By: #### 2 4344-4 ####[facility] LABCLIA [id number] [place] [address] [place] pH (BldV) 7.33 [pH] Normal 7.32-7.42 [facility] Comment on above: Order Comment: Speci men Type: VENOUS BLOOD SPECIMENOrdering Facility: [facility] Address: [address] [place], [place] [address] Performed By: #### 2 4344-4 ####[facility] LABCLIA [id number] [place] [address] [place] pH adjusted to patient's actual temperature (BldV) 7.33 Normal 7.32-7.42 [facility] Comment on above: Order Comment: Speci men Type: VENOUS BLOOD SPECIMENOrdering Facility: [facility] Address: [address] [place] [address] Performed By: #### 2 4344-4 ####[facility] LABCLIA [id number] [place] [address] [place] Potassium [Moles/Vol] 5.7 mmol/L High 3.5-5.0 [facility] Comment on above: Order Comment: Speci men Type: VENOUS BLOOD SPECIMENOrdering Facility: [facility] Address: [address] [place] [address] Performed By: #### 2 4344-4 ####[facility] LABCLIA [id number] [place] [address] [place] Sodium [Moles/Vol] 130 mmol/L Low 136-144 [facility] Comment on above: Order Comment: Speci men Type: VENOUS BLOOD SPECIMENOrdering Facility: [facility] Address: [address] [place] [address] Performed By: #### 2 4344-4 ####[facility] LABCLIA [id number] [place] [address] [place] Glucose SerPl-mCncon 024 Glucose [Mass/Vol] 131 mg/dL High 74-99 [facility] Comment on above: Order Comment: Speci men Type: BLOOD SPECIMENOrdering Facility: [facility] Address: [address] [place] [address] Result Comment: The [place] [employer] (ADA) provides guidance for cutoff values for fasting glucose and random glucose. The ADA defines fasting as no caloric intake for at least 8 hours. Fasting plasma glucose results between 100 to 125 mg/dL indicate increased risk for diabetes (prediabetes).Fasting plasma glucose results greater than or equal to 126 mg/dL meet the criteria for diagnosis of diabetes. In the absence of unequivocal hyperglycemia, results should be confirmed by repeat testing. In a patient with classic symptoms of hyperglycemia or hyperglycemic crisis, random plasma glucose results greater than or equal to 200 mg/dL meet the criteria for diagnosis of diabetes.Reference: Standards of Medical Care in Diabetes 2016, [place] [employer]. Diabetes Care. 2016.39(Suppl 1). Performed By: #### 2 345-7, K1 ####[facility] LABCLIA [id number] [place] [address] [place] HCV RNA WALKER+probe Qnon 07-29 HBV surface Ag Ql (S) Negative Normal Negative [facility] Comment on above: Order Comment: Speci men Type: BLOOD SPECIMENOrdering Facility: [facility] Address: [place] [address] Performed By: #### 1 1011-4 ####[facility] LABCLIA [id number] [place] [address] [place] HCV Ab Ql (S) Negative Normal Negative [facility] Comment on above: Order Comment: Speci men Type: BLOOD SPECIMENOrdering Facility: [facility] Address: [place] [address] Result Comment: The result suggests no evidence of active infection with Hepatitis C virus. Should recent infection be suspected, repeat testing may be considered 4-6 weeks after this draw. Performed By: #### 1 1011-4 ####[facility] LABCLIA [id number] [place] [address] [place] HIV 1 and 2 Ab IA.rapid Nom (S/P/Bld) Normal [facility] Comment on above: Order Comment: Speci men Type: BLOOD SPECIMENOrdering Facility: [facility] Address: [place] [address] Result Comment: Test not indicated. Performed By: #### 1 1011-4 ####[facility] LABCLIA [id number] [place] [address] [place] HIV 1+2 Ab+HIV1 p24 Ag IA Ql Non-Reactive Normal Nonreactive [facility] Comment on above: Order Comment: Speci men Type: BLOOD SPECIMENOrdering Facility: [facility] Address: [place] [address] Performed By: #### 1 1011-4 ####[facility] LABCLIA [id number] [place] [address] [place] HIV immunoassay testing algorithm interpretation (S/P/Bld) [Interp] Normal [facility] Comment on above: Order Comment: Speci men Type: BLOOD SPECIMENOrdering Facility: [facility] Address: [place] [address] Result Comment: No e vidence of HIV-1 or HIV-2 infection. Should recent infection be suspected, repeat testing may be considered 2-3 weeks after this draw.[place] Rev. Code 3701.243(E): This information has been disclosed to you from confidential records protected from disclosure by state law. ???You shall make no further disclosure of this information without the specific, written, and informed release of the individual to whom it pertains or as otherwise permitted by state law. A general authorization for the release of medical or other information is not sufficient for the purpose of the release of HIV test results or diagnoses. Performed By: #### 1 1011-4 ####[facility] LABIA [id number] [place] [address] [place] HISTORY PHYSICALon 4 HISTORY PHYSICAL Normal [facility] HIV1+2 Ab Ser Qlon 4 HIV 1+2 Ab Ql (S) Negative Normal Non-Reacti ve : Negative for both HIV1 and HIV2 antibodies. [facility] Comment on above: Order Comment: Speci men Type: BLOOD SPECIMENOrdering Facility: [facility] Address: [place] [address] Result Comment: A no n-reactive result does not preclude the possibility of exposure to HIV or infection with HIV. An antibody response to recent exposure may take several weeks to reach detectable levels with this assay.Performed by the [employer] [facility] Rapid HIV-1/2 Antibody Test.HIV Information: [place] Rev. Code 3701.243(E):This information has been disclosed to you from confidential records protected from disclosure by state law. You shall make no further disclosure of this information without the specific, written, and informed release of the individual to whom it pertains, or as otherwise permitted by state law. A general authorization for the release of medical or other information is not sufficient for the purpose of the release of HIV test results or diagnoses. Performed By: #### 7 918-6 ####[facility] LABIA [id number] [place] [id number] [place] INTRAOPERATIVE ECHO PREon INTRAOPERATIVE ECHO PRE Normal [facility] OPERATIVE NOon 07-29-2023 OPERATIVE NO Normal [facility] POTASSIUM BLDon 07-29-2023 Potassium [Moles/Vol] 4.6 mmol/L Normal 3.7-5.1 [facility] Comment on above: Order Comment: Speci sarita Type: BLOOD SPECIMENOrdering Facility: [facility] Address: [address] [place] [address] Performed By: #### 2 345-7, K1 ####[facility] LABCLIA [id number] [place] [address] [place] PT panel Coag (PPP)on 2023 INR Coag (PPP) [Relative time] 1.1 {INR} Normal 0.9-1.3 [facility] Comment on above: Order Comment: Speci sarita Type: BLOOD SPECIMENOrdering Facility: [facility] Address: [address] [place] [address] Result Comment: Suzanne min K Antagonist (VKA) Therapeutic Range: INR 2 to 3 (Target INR of 2.5)Note: For patients treated with VKA drugs, such as warfarin, the [employer] 2012 Guideline recommends a therapeutic INR range of 2 to 3 (target INR of 2.5). This recommendation includes high-risk patients with antiphospholipid syndrome with previous arterial or venous thromboembolism, current-generation mechanical or bioprosthetic aortic heart valve replacement.Note: Patients with mechanical aortic valve replacement and additional risk factors for thromboembolic events (atrial fibrillation, previous thromboembolism, LV dysfunction, hypercoagulable conditions) or an older generation mechanical AVR (i.e., ball in-Cage) or any mechanical MVR should have a INR therapeutic range of 2.5 to 3.5 (target INR of 3).Capri GH, et al. Chest 2012, 141:7S-47SNishimjulius RA, et al. JACC 2017, 70: 252-289 Performed By: #### 3 255-7, 42478-5, 77191-8 ####[facility] LABCLIA [id number] [place] [address] [place] PT Coag (PPP) [Time] 11.5 s Normal 9.7-13.0 [facility] Comment on above: Order Comment: Speci men Type: BLOOD SPECIMENOrdering Facility: [facility] Address: [address] [place] [address] Performed By: #### 3 255-7, 56458-8, 41532-2 ####[facility] LABCLIA [id number] [place] [address] [place] Platelets Auto (Bld) [#/Vol] on 07-29-2023 Platelets (Bld) [#/Vol] 194 10*3/uL Normal 150-400 [facility] Comment on above: Order Comment: Speci men Type: BLOOD SPECIMENOrdering Facility: [facility] Address: [address] [place] [address] Performed By: #### 7 77-3 ####[facility] LABCLIA [id number] [place] [address] [place] STAPH AUREUS PCRon 4 S. aureus and MRSA panel WALKER+probe (Nose) Normal Negative [facility] Comment on above: Order Comment: Speci men Type: SWAB OF INTERNAL NOSEOrdering Facility: [facility] Address: [address] [place] [address] Result Comment: Nega tive for Staphylococcus aureus by PCR.Negative for MRSA by PCR Performed By: #### S APCR ####[facility] LABCLIA [id number] [place] [address] [place] SURGICAL PATHOLOGYon 024 CASE REPORT Normal [facility] Comment on above: Order Comment: Speci men Type: TISSUE SPECIMENOrdering Facility: [facility] Address: [address] [place] [address] Result Comment: Surg ical Pathology Report Case: [id number] Provider: Willem Suarez MD Collected: 07/29/2023 10:16 AMOrdering Location: Admitting Received: 07/29/2023 02:15 PMPathologist: Sarita Black MDSpecimen: SOFT TISSUE, endarterectomy Performed By: #### S ####[facility] LABCLIA [id number] [address] OF [place] CLINICAL HISTORY Normal [facility] Comment on above: Order Comment: Sybili sarita Type: TISSUE SPECIMENOrdering Facility: [facility] Address: [address] [place] [address] Result Comment: Pre- op diagnosis: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 DIAGNOSIS COMMENT Microscopic examinat ion shows a fibroatheromatous plaque as demonstrated in the Movat stain. There is no evidence of tunica media. Normal [facility] Comment on above: Order Comment: Speci sartia Type: TISSUE SPECIMENOrdering Facility: [facility] Address: [address] [place] [address] Performed By: #### S ####[facility]CLIA [id number] [address] FINAL DIAGNOSIS Normal [facility] Comment on above: Order Comment: Sybili sarita Type: TISSUE SPECIMENOrdering Facility: [facility] Address: [address] [place] [address] Result Comment: A. C oronary artery (site not stated), endarterectomy:-Fibroatheromatous plaque. Performed By: #### S ####[facility]CLIA [id number] [address] [facility] FINAL PERFORMING LAB Normal [facility] Comment on above: Order Comment: Sybili sarita Type: TISSUE SPECIMENOrdering Facility: [facility] Address: [address] [place] [address] Result Comment: Diag nostic interpretation performed at [facility], [address] [place], [place] [id number] CLIA# [id number] Director: Jonathan Pavon M.D. Performed By: #### S ####[facility] [id number] [place] [address] [place] GROSS DESCRIPTION A. SOFT TISSUE Normal [facility] Comment on above: Order Comment: Speci men Type: TISSUE SPECIMENOrdering Facility: [facility] Address: [address] [place] [address] Result Comment: Rece ived fresh labeled endarterectomy is a kate-pham, irregular segment of soft probable plaque material. The specimen is entirely submitted intact in one cassette.Gross examination performed at [facility], [address] [place] [address] CLIA# [id number] 07/29/23 Performed By: #### S ####[facility] [id number] [place] [address] [place] THROMBOGRAPH HEPARINASE PANE [place] 07-29-2023 Clot angle after addition of heparinase TEG (Bld) [Angle] 65.5 degrees Normal 47.0-74.0 [facility] Comment on above: Order Comment: Speci men Type: BLOOD SPECIMENOrdering Facility: [facility] Address: [address] [place] [address] Performed By: #### T EGHPP ####[facility] [id number] [place] [address] [place] Clot Lysis 30 Min post maximum clot amplitude TEG (Bld) [Length fraction] 0.0 % Normal 0.0-8.0 [facility] Comment on above: Order Comment: Speci men Type: BLOOD SPECIMENOrdering Facility: [facility] Address: [address] [place] [address] Performed By: #### T EGHPP ####[facility] [id number] [place] [address] [place] Clotting time after addition of heparinase TEG (Bld) 10.8 minutes High 4.0-10.0 [facility] Comment on above: Order Comment: Speci men Type: BLOOD SPECIMENOrdering Facility: [facility] Address: [address] [place] [address] Performed By: #### T EGHPP ####[facility] [id number] [place] [address] [place] Coagulation index TEG Qn (Bld) -2.9 Normal -4.6-3.2 [facility] Comment on above: Order Comment: Speci men Type: BLOOD SPECIMENOrdering Facility: [facility] Address: [address] [place] [address] Result Comment: The Coagulation Index, a secondary parameter, is labeled by the hearing health technician as for research use only and is used per the hearing health technician's instructions. Its performance characteristics were determined by [facility]'s [facility] Pathology and Laboratory Medicine [place] in a manner consistent with CLIA requirements. This test has not been cleared by the U.S. Food and Drug Administration. Performed By: #### T EGHPP ####[facility] LABCLIA [id number] [place] [address] [place] Maximum clot firmness after addition of heparinase TEG (Bld) [Length] 61.9 mm Normal 51.0-75.0 [facility] Comment on above: Order Comment: Speci men Type: BLOOD SPECIMENOrdering Facility: [facility] Address: [address] [place] [address] Performed By: #### T EGHPP ####[facility] LABCLIA [id number] [place] [address] [place] Thromboelastography after addtion of heparinase panel (Bld) Normal [facility] Comment on above: Order Comment: Speci men Type: BLOOD SPECIMENOrdering Facility: [facility] Address: [address] [place] [address] Result Comment: A th romboelastograph (TEG) study was performed using a citrate-anticoagulated whole blood treated with heparinase to neutralize a heparin effect.The R value was still prolonged after sample treated with heparinase. This is consistent with heparin therapy with inadequate residual hemostasis. The angle, a measure of fibrinogen function, is within normal range. This is indicative of normal fibrinogen concentration or function. The Maximal Amplitude (MA), a measure of platelet function, is within the normal range. The Ly30, a measure of fibrinolysis, is normal. This is indicative of normal fibrinolytic function. The coagulation index (CI), a measure of hemostasis function, is within the normal range. The CI is a calculated parameter based on the other TEG results. Performed By: #### T EGHPP ####[facility] [id number] [place] THROMBOGRAPH PANELon 07-29- 024 Clot angle TEG (Bld) [Angle] 61.3 degrees Normal 47.0-74.0 [facility] Comment on above: Order Comment: Speci men Type: BLOOD SPECIMENOrdering Facility: [facility] Address: [address] [place] [address] Performed By: #### T EGPNP ####[facility] [id number] [address] [place] Clot Lysis 30 Min post maximum clot amplitude TEG (Bld) [Length fraction] 0.0 % Normal 0.0-8.0 [facility] Comment on above: Order Comment: Sybili sarita Type: BLOOD SPECIMENOrdering Facility: [facility] Address: [address] [place] [address] Performed By: #### T EGPNP ####[facility] [id number] [address] [place] Clotting time TEG (Bld) 6.8 minutes Normal 4.0-10.0 [facility] Comment on above: Order Comment: Sybili men Type: BLOOD SPECIMENOrdering Facility: [facility] Address: [address] [place], [place] [address] Performed By: #### T EGPNP ####[facility] [id number] [place] [address] [place] Coagulation index TEG Qn (Bld) -0.8 Normal -4.6-3.2 [facility] Comment on above: Order Comment: Phyllis stein Type: BLOOD SPECIMENOrdering Facility: [facility] Address: [address] [place] [address] Result Comment: The Coagulation Index, a secondary parameter, is labeled by the hearing health technician as for research use only and is used per the hearing health technician's instructions. Its performance characteristics were determined by [facility]'s [facility] Pathology and Laboratory [facility] [place] in a manner consistent with CLIA requirements. This test has not been cleared by the U.S. Food and Drug Administration. Performed By: #### T EGPNP ####[facility] [id number] [place] [address] [place] Maximum clot firmness TEG (Bld) [Length] 62.4 mm Normal 51.0-75.0 [facility] Comment on above: Order Comment: Phyllis stein Type: BLOOD SPECIMENOrdering Facility: [facility] Address: [address] [place] [address] Performed By: #### T EGPNP ####[facility] [id number] [place] [address] [place] Thromboelastography after addtion of heparinase panel (Bld) Normal [facility] Comment on above: Order Comment: Phyllis stein Type: BLOOD SPECIMENOrdering Facility: [facility] Address: [address] [place] [address] Result Comment: A th romboelastograph (TEG) study was performed using citrate-anticoagulated whole blood.The R value, a measure of coagulation function, is within the normal range. This indicates normal coagulation function. The angle, a measure of fibrinogen function, is within normal range. This is indicative of normal fibrinogen concentration or function. The Maximal Amplitude (MA), a measure of platelet function, is within the normal range. The Ly30, a measure of fibrinolysis, is normal. This is indicative of normal fibrinolytic function. The coagulation index (CI), a measure of hemostasis function, is within the normal range. The CI is a calculated parameter based on the other TEG results. Performed By: #### T EGPNP ####[facility] [id number] [place] [address] [place] XR CHEST 1V FRONTAL PORTon 0 07-29-2023 XR CHEST 1V FRONTAL PORT Normal [facility] aPTT PPPon 07-29-2023 aPTT Coag (PPP) [Time] 28.1 s Normal 23.0-32.4 [facility] Comment on above: Order Comment: Speci men Type: BLOOD SPECIMENOrdering Facility: [facility] Address: [address] [place] [address] Performed By: #### 3 255-7, 97900-0, 57263-9 ####[facility] [id number] [place] [address] [place] CNPNon 07-24-2023 CNPN Normal [facility] CNPTOUTREACHon 07-24-2023 CNPTOUTREACH Normal [facility] CBC W Auto Differential pane l (Bld)on 07-17-2023 Basophils (Bld) [#/Vol] 0.03 10*3/uL Normal <0.11 [facility] Comment on above: Order Comment: Speci men Type: BLOOD SPECIMENOrdering Facility: [facility] Address: [address] [place] [address] Performed By: #### 5 7021-8 ####[facility] [id number] [place] [address] [place] Basophils/100 WBC (Bld) 0.5 % Normal [facility] Comment on above: Order Comment: Speci men Type: BLOOD SPECIMENOrdering Facility: [facility] Address: [address] [place] [address] Performed By: #### 5 7021-8 ####[facility] LABCLIA [id number] [place] [address] [place] Differential cell count method Nom (Bld) Auto Normal [facility] Comment on above: Order Comment: Speci men Type: BLOOD SPECIMENOrdering Facility: [facility] Address: [address] [place] [address] Performed By: #### 5 7021-8 ####[facility] LABCL[facility] [id number] [place] [address] [place] Eosinophils (Bld) [#/Vol] 0.15 10*3/uL Normal <0.46 [facility] Comment on above: Order Comment: Speci men Type: BLOOD SPECIMENOrdering Facility: [facility] Address: [address] [place] [address] Performed By: #### 5 7021-8 ####[facility]CL[facility] [id number] [place] [address] [place] Eosinophils/100 WBC (Bld) 2.5 % Normal [facility] Comment on above: Order Comment: Speci men Type: BLOOD SPECIMENOrdering Facility: [facility] Address: [address] [place] [address] Performed By: #### 5 7021-8 ####[facility] [id number] [place] [address] [place] Erythrocyte distribution width (RBC) [Ratio] 12.2 % Normal 11.5-15.0 [facility] Comment on above: Order Comment: Speci men Type: BLOOD SPECIMENOrdering Facility: [facility] Address: [address] [place] [address] Performed By: #### 5 7021-8 ####[facility]CL[facility] [id number] [place] [address] [place] Hematocrit (Bld) [Volume fraction] 46.2 % High 36.0-46.0 [facility] Comment on above: Order Comment: Speci men Type: BLOOD SPECIMENOrdering Facility: [facility] Address: [address] [place] [address] Performed By: #### 5 7021-8 ####[facility]CL[facility] [id number] [place] [address] [place] Hemoglobin (Bld) [Mass/Vol] 14.9 g/dL Normal 11.5-15.5 [facility] Comment on above: Order Comment: Speci men Type: BLOOD SPECIMENOrdering Facility: [facility] Address: [address] [place] [address] Performed By: #### 5 7021-8 ####[facility] LABCL[facility] [id number] [place] [address] [place] Immature granulocytes (Bld) [#/Vol] 0.05 10*3/uL Normal <0.10 [facility] Comment on above: Order Comment: Speci men Type: BLOOD SPECIMENOrdering Facility: [facility] Address: [address] [place] [address] Performed By: #### 5 7021-8 ####[facility]CL[facility] [id number] [place] [address] [place] Immature granulocytes/100 WBC (Bld) 0.8 % Normal [facility] Comment on above: Order Comment: Speci men Type: BLOOD SPECIMENOrdering Facility: [facility] Address: [address] [place] [address] Performed By: #### 5 7021-8 ####[facility] LABCLIA [id number] [place] [address] [place] Lymphocytes (Bld) [#/Vol] 2.33 10*3/uL Normal 1.00-4.00 [facility] Comment on above: Order Comment: Speci men Type: BLOOD SPECIMENOrdering Facility: [facility] Address: [address] [place] [address] Performed By: #### 5 7021-8 ####[facility]CL[facility] [id number] [place] [address] [place] Lymphocytes/100 WBC (Bld) 39.0 % Normal [facility] Comment on above: Order Comment: Speci men Type: BLOOD SPECIMENOrdering Facility: [facility] Address: [address] [place] [address] Performed By: #### 5 7021-8 ####[facility] LABCLIA [id number] [place] [address] [place] MCH (RBC) [Entitic mass] 31.2 pg Normal 26.0-34.0 [facility] Comment on above: Order Comment: Speci men Type: BLOOD SPECIMENOrdering Facility: [facility] Address: [address] [place] [address] Performed By: #### 5 7021-8 ####[facility] [id number] [place] [address] [place] MCHC (RBC) [Mass/Vol] 32.3 g/dL Normal 30.5-36.0 [facility] Comment on above: Order Comment: Speci men Type: BLOOD SPECIMENOrdering Facility: [facility] Address: [address] [place] [address] Performed By: #### 5 7021-8 ####[facility] [id number] [place] [address] [place] MCV (RBC) [Entitic vol] 96.7 fL Normal 80.0-100.0 [facility] Comment on above: Order Comment: Speci men Type: BLOOD SPECIMENOrdering Facility: [facility] Address: [address] [place] [address] Performed By: #### 5 7021-8 ####[facility] [id number] [place] [address] [id number] [address] [place] Monocytes (Bld) [#/Vol] 0.60 10*3/uL Normal <0.87 [facility] Comment on above: Order Comment: Speci men Type: BLOOD SPECIMENOrdering Facility: [facility] Address: [address] [place] [address] Performed By: #### 5 7021-8 ####[facility]CL[facility] [id number] [place] [address] [place] Monocytes/100 WBC (Bld) 10.1 % Normal [facility] Comment on above: Order Comment: Speci men Type: BLOOD SPECIMENOrdering Facility: [facility] Address: [address] [place] [address] Performed By: #### 5 7021-8 ####[facility]CL[facility] [id number] [place] [address] [place] Neutrophils (Bld) [#/Vol] 2.81 10*3/uL Normal 1.45-7.50 [facility] Comment on above: Order Comment: Speci men Type: BLOOD SPECIMENOrdering Facility: [facility] Address: [address] [place] [address] Performed By: #### 5 7021-8 ####[facility]CL[facility] [id number] [place] [address] [place] Neutrophils/100 WBC (Bld) 47.1 % Normal [facility] Comment on above: Order Comment: Speci men Type: BLOOD SPECIMENOrdering Facility: [facility] Address: [address] [place] [address] Performed By: #### 5 7021-8 ####[facility]CL[facility] [id number] [place] [address] [place] Nucleated RBC (Bld) [#/Vol] 10*3/uL Normal <0.01 [facility] Comment on above: Order Comment: Speci men Type: BLOOD SPECIMENOrdering Facility: [facility] Address: [address] [place] [address] Performed By: #### 5 7021-8 ####[facility]CL[facility] [id number] [place] [address] [place] Nucleated RBC/100 WBC (Bld) [Ratio] 0.0 /100 WBC Normal [facility] Comment on above: Order Comment: Speci men Type: BLOOD SPECIMENOrdering Facility: [facility] Address: [address] [place] [address] Performed By: #### 5 7021-8 ####[facility] [id number] [place] [address] [place] Platelet mean volume (Bld) [Entitic vol] 9.6 fL Normal 9.0-12.7 [facility] Comment on above: Order Comment: Speci men Type: BLOOD SPECIMENOrdering Facility: [facility] Address: [address] [place] [address] Performed By: #### 5 7021-8 ####[facility] [id number] [place] [address] [place] Platelets (Bld) [#/Vol] 239 10*3/uL Normal 150-400 [facility] Comment on above: Order Comment: Speci men Type: BLOOD SPECIMENOrdering Facility: [facility] Address: [address] [place] [address] Performed By: #### 5 7021-8 ####[facility]CL[facility] [id number] [place] [address] [place] RBC (Bld) [#/Vol] 4.78 10*6/uL Normal 3.90-5.20 [facility] Comment on above: Order Comment: Speci men Type: BLOOD SPECIMENOrdering Facility: [facility] Address: [address] [place] [address] Performed By: #### 5 7021-8 ####[facility]CL[facility] [id number] [place] [address] [place] WBC (Bld) [#/Vol] 5.97 10*3/uL Normal 3.70-11.00 [facility] Comment on above: Order Comment: Speci men Type: BLOOD SPECIMENOrdering Facility: [facility] Address: [address] [place] [address] Performed By: #### 5 7021-8 ####[facility]CL[facility] [id number] [place] [address] [place] CNCNPATEDon 07-17-2023 CNCNPATED Normal [facility] CNOVon 07-17-2023 CNOV Normal [facility] CONFIRM BLOOD TYPEon 024 ABO B Normal [facility] Comment on above: Order Comment: Speci men Type: BLOOD SPECIMENOrdering Facility: [facility] Address: [address] [place] [address] Performed By: #### C ONABO ####[facility] BANKIA [id number] [place] [address] [place] Rh Nom (Bld) Positive Normal [facility] Comment on above: Order Comment: Speci men Type: BLOOD SPECIMENOrdering Facility: [facility] Address: [address] [place] [address] Performed By: #### C ONABO ####[facility] [id number] [place] [address] [place] [place] Comprehensive metabolic 2000 panelon 07-17-2023 Albumin [Mass/Vol] 4.1 g/dL Normal 3.9-4.9 [facility] Comment on above: Order Comment: Speci men Type: BLOOD SPECIMENOrdering Facility: [facility] Address: [address] [place] [address] Performed By: #### 2 532-0, 97241-3 ####[facility] LABCLIA [id number] [address] [id number], [place] [address] [place] ALP [Catalytic activity/Vol] 86 U/L Normal 34-123 [facility] Comment on above: Order Comment: Speci men Type: BLOOD SPECIMENOrdering Facility: [facility] Address: [address] [place] [address] Performed By: #### 2 532-0, 24442-0 ####[facility] LABCLIA [id number] [place] [address] [place] ALT [Catalytic activity/Vol] 11 U/L Normal 7-38 [facility] Comment on above: Order Comment: Speci men Type: BLOOD SPECIMENOrdering Facility: [facility] Address: [address] [place] [address] Performed By: #### 2 532-0, 78595-6 ####[facility] LABCLIA [id number] [place] [address] [place] Anion gap [Moles/Vol] 14 mmol/L Normal 9-18 [facility] Comment on above: Order Comment: Speci men Type: BLOOD SPECIMENOrdering Facility: [facility] Address: [address] [place] [address] Performed By: #### 2 532-0, ####[facility] LABCLIA [id number] [place] [address] [place] AST [Catalytic activity/Vol] 11 U/L Low 13-35 [facility] Comment on above: Order Comment: Speci men Type: BLOOD SPECIMENOrdering Facility: [facility] Address: [address] [place] [address] Performed By: #### 2 532-0, 71122-2 ####[facility] LABCLIA [id number] [place] [address] [place] Bilirubin [Mass/Vol] 0.2 mg/dL Normal 0.2-1.3 [facility] Comment on above: Order Comment: Speci men Type: BLOOD SPECIMENOrdering Facility: [facility] Address: [address] [place] [address] Performed By: #### 2 532-0, 27263-7 ####[facility] LABCLIA [id number] [place] [address] [place] Calcium [Mass/Vol] 9.9 mg/dL Normal 8.5-10.2 [facility] Comment on above: Order Comment: Speci men Type: BLOOD SPECIMENOrdering Facility: [facility] Address: [address] [place] [address] Performed By: #### 2 532-0, 22907-2 ####[facility] LABCLIA [id number] [place] [address] [place] Chloride [Moles/Vol] 102 mmol/L Normal 97-105 [facility] Comment on above: Order Comment: Speci men Type: BLOOD SPECIMENOrdering Facility: [facility] Address: [address] [place] [address] Performed By: #### 2 532-0, ####[facility] LABCLIA [id number] [place] [address] [place] CO2 [Moles/Vol] 23 mmol/L Normal 22-30 [facility] Comment on above: Order Comment: Speci men Type: BLOOD SPECIMENOrdering Facility: [facility] Address: [address] [place] [address] Performed By: #### 2 532-0, ####[facility] LABCLIA [id number] [place] [id number] [place] Creatinine [Mass/Vol] 1.01 mg/dL High 0.58-0.96 [facility] Comment on above: Order Comment: Speci men Type: BLOOD SPECIMENOrdering Facility: [facility] Address: [address] [place] [address] Performed By: #### 2 532-0, 97556-8 ####[facility] LABCLIA [id number] [place] [address] [place] Creatinine and Glomerular filtration rate.predicted panel (S/P/Bld) 62 mL/min/1.73m??? Normal >=60 [facility] Comment on above: Order Comment: Phyllis stein Type: BLOOD SPECIMENOrdering Facility: [facility] Address: [address] [place] [address] Result Comment: Annelise mated Glomerular Filtration Rate [...] reflect actual GFR. Performed By: #### 2 532-0, 70688-6 ####[facility] LABIA [id number] [place] [address] [place] Glucose [Mass/Vol] 140 mg/dL High 74-99 [facility] Comment on above: Order Comment: Phyllis stein Type: BLOOD SPECIMENOrdering Facility: [facility] Address: [address] [place] [address] Result Comment: The [place] [employer] (ADA) provides guidance for cutoff values for fasting glucose and random glucose. The ADA defines fasting as no caloric intake for at least 8 hours. Fasting plasma glucose results between 100 to 125 mg/dL indicate increased risk for diabetes (prediabetes).Fasting plasma glucose results greater than or equal to 126 mg/dL meet the criteria for diagnosis of diabetes. In the absence of unequivocal hyperglycemia, results should be confirmed by repeat testing. In a patient with classic symptoms of hyperglycemia or hyperglycemic crisis, random plasma glucose results greater than or equal to 200 mg/dL meet the criteria for diagnosis of diabetes.Reference: Standards of Medical Care in Diabetes 2016, [place] [employer]. Diabetes Care. 2016.39(Suppl 1). Performed By: #### 2 532-0, 53907-2 ####[facility] LABIA [id number] [place] [id number] [place] Potassium [Moles/Vol] 4.9 mmol/L Normal 3.7-5.1 [facility] Comment on above: Order Comment: Speci men Type: BLOOD SPECIMENOrdering Facility: [facility] Address: [address] [place] [address] Performed By: #### 2 532-0, ####[facility] LABCLIA [id number] [place] [address] [place] Protein [Mass/Vol] 6.0 g/dL Low 6.3-8.0 [facility] Comment on above: Order Comment: Speci men Type: BLOOD SPECIMENOrdering Facility: [facility] Address: [address] [place] [address] Performed By: #### 2 532-0, 22311-6 ####[facility] LABCLIA [id number] [place] [address] [place] Sodium [Moles/Vol] 139 mmol/L Normal 136-144 [facility] Comment on above: Order Comment: Speci men Type: BLOOD SPECIMENOrdering Facility: [facility] Address: [address] [place] [address] Performed By: #### 2 532-0, ####[facility] LABCLIA [id number] [place] [address] [place] Urea nitrogen [Mass/Vol] 21 mg/dL Normal 7-21 [facility] Comment on above: Order Comment: Speci men Type: BLOOD SPECIMENOrdering Facility: [facility] Address: [address] [place] [address] Performed By: #### 2 532-0, 18786-6 ####[facility] LABCLIA [id number] [place] [id number] [place] HbA1c (Bld)on 07-17-2023 Average glucose Estimated from glycated hemoglobin (Bld) [Mass/Vol] 148 mg/dL Normal [facility] Comment on above: Order Comment: Speci men Type: BLOOD SPECIMENOrdering Facility: [facility] Address: [address] [place] [address] Result Comment: eAG: (Estimated average glucose) is a calculated value from HgbA1c and is district representative of the average blood glucose level in the last 2-3 month period. Performed By: #### 5 5454-3 ####[facility] LABIA [id number] [place] [address] [place] HbA1c (Bld) [Mass fraction] 6.8 % High 4.3-5.6 [facility] Comment on above: Order Comment: Speci men Type: BLOOD SPECIMENOrdering Facility: [facility] Address: [address] [place] [address] Result Comment: Cecilio ican Diabetes Association guidelines indicate that patients with HgbA1c in the range 5.7-6.4% are at increased risk for development of diabetes, and intervention by lifestyle modification may be beneficial. HgbA1c greater or equal to 6.5% is considered diagnostic of diabetes. Performed By: #### 5 5454-3 ####[facility] LABIA [id number] [place] [address] [place] LDH SerPl-cCncon 07-17-2023 LDH [Catalytic activity/Vol] 146 U/L Normal 135-214 [facility] Comment on above: Order Comment: Speci men Type: BLOOD SPECIMENOrdering Facility: [facility] Address: [address] [place] [address] Performed By: #### 2 532-0, 28525-9 ####[facility] [id number] [place] [address] [place] PT panel Coag (PPP)on 2023 INR Coag (PPP) [Relative time] 1.1 {INR} Normal 0.9-1.3 [facility] Comment on above: Order Comment: Speci men Type: BLOOD SPECIMENOrdering Facility: [facility] Address: [address] [place] [address] Result Comment: Suzanne min K Antagonist (VKA) Therapeutic Range: INR 2 to 3 (Target INR of 2.5)Note: For patients treated with VKA drugs, such as warfarin, the [place] [employer] 2012 Guideline recommends a therapeutic INR range of 2 to 3 (target INR of 2.5). This recommendation includes high-risk patients with antiphospholipid syndrome with previous arterial or venous thromboembolism, current-generation mechanical or bioprosthetic aortic heart valve replacement.Note: Patients with mechanical aortic valve replacement and additional risk factors for thromboembolic events (atrial fibrillation, previous thromboembolism, LV dysfunction, hypercoagulable conditions) or an older generation mechanical AVR (i.e., ball in-Cage) or any mechanical MVR should have a INR therapeutic range of 2.5 to 3.5 (target INR of 3).Capri GH, et al. Chest 2012, 141:7S-47SNishausten RA, et al. [facility] 2017, 70: 252-289 Performed By: #### 3 4528-0, 91856-6 ####[facility] LABIA [id number] [place] [address] [place] PT Coag (PPP) [Time] 11.2 s Normal 9.7-13.0 [facility] Comment on above: Order Comment: Speci men Type: BLOOD SPECIMENOrdering Facility: [facility] Address: [address] [place] [address] Performed By: #### 3 4528-0, 31980-2 ####[facility] LABIA [id number] [place] [address] [place] STAPH AUREUS PCRon 4 S. aureus and MRSA panel WALKER+probe (Nose) Normal Negative [facility] Comment on above: Order Comment: Speci men Type: SWAB OF INTERNAL NOSEOrdering Facility: [facility] Address: [address] [place] [address] Result Comment: Nega tive for Staphylococcus aureus by PCR.Negative for MRSA by PCR Performed By: #### S APCR ####[facility] LABCLIA [id number] [place] [address] [place] TYPE AND SCREEN,30 DAYon ABO B Normal [facility] Comment on above: Order Comment: Speci men Type: BLOOD SPECIMENOrdering Facility: [facility] Address: [address] [place] [address] Performed By: #### T SCR30 ####[facility] BLOOD BANKCLIA [id number] [place] [address] [place] HISTORICAL AB SCR STATUS Negative Normal [facility] Comment on above: Order Comment: Speci men Type: BLOOD SPECIMENOrdering Facility: [facility] Address: [address] [place] [address] Performed By: #### T SCR30 ####[facility] BLOOD BANKIA [id number] [place] [address] [place] Rh Nom (Bld) Positive Normal [facility] Comment on above: Order Comment: Speci men Type: BLOOD SPECIMENOrdering Facility: [facility] Address: [address] [place] [address] Performed By: #### T SCR30 ####[facility] BLOOD BANKIA [id number] [place] [address] [place] URINALYSIS, DIPSTICK ONLYon 07-17-2023 Bilirubin Ql (U) Negative Normal Negative [facility] Comment on above: Order Comment: Speci men Type: URINE SPECIMENOrdering Facility: [facility] Address: [address] [place] [address] Performed By: #### U A ####[facility] LABCLIA [id number] [place] [address] [place] Clarity (Unsp spec) Clear Normal [facility] Comment on above: Order Comment: Speci men Type: URINE SPECIMENOrdering Facility: [facility] Address: [address] [place] [address] Performed By: #### U A ####[facility] LABCLIA [id number] [place] [address] [place] Color (U) Yellow Normal Yellow [facility] Comment on above: Order Comment: Speci men Type: URINE SPECIMENOrdering Facility: [facility] Address: [address] [place] [address] Performed By: #### U A ####[facility] LABCLIA [id number] [place] [address] [place] Glucose Test strip (U) [Mass/Vol] 3+ Abnormal Negative [facility] Comment on above: Order Comment: Speci men Type: URINE SPECIMENOrdering Facility: [facility] Address: [address] [place] [address] Performed By: #### U A ####[facility] LABCLIA [id number] [place] [address] [place] Hemoglobin Ql (U) Negative Normal Negative [facility] Comment on above: Order Comment: Speci men Type: URINE SPECIMENOrdering Facility: [facility] Address: [address] [place] [address] Performed By: #### U A ####[facility] LABCLIA [id number] [place] [address] [place] Ketones Ql (U) Negative Normal Negative [facility] Comment on above: Order Comment: Speci men Type: URINE SPECIMENOrdering Facility: [facility] Address: [address] [place] [address] Performed By: #### U A ####[facility] LABCLIA [id number] [place] [address] [place] Leukocyte esterase Test strip Ql (U) Negative Normal Negative [facility] Comment on above: Order Comment: Speci men Type: URINE SPECIMENOrdering Facility: [facility] Address: [address] [place] [address] Performed By: #### U A ####[facility] LABCLIA [id number] [place] [address] [place] Nitrite Ql (U) Negative Normal Negative [facility] Comment on above: Order Comment: Speci men Type: URINE SPECIMENOrdering Facility: [facility] Address: [address] [place] [address] Performed By: #### U A ####[facility] LABIA [id number] [place] [address] [place] pH (U) 6.0 [pH] Normal <8.5 [facility] Comment on above: Order Comment: Speci men Type: URINE SPECIMENOrdering Facility: [facility] Address: [address] [place] [address] Performed By: #### U A ####[facility] [id number] [place] [address] [place] Protein (U) [Mass/Vol] Negative Normal Negative [facility] Comment on above: Order Comment: Speci men Type: URINE SPECIMENOrdering Facility: [facility] Address: [address] [place] [address] Performed By: #### U A ####[facility] LABIA [id number] [place] [address] [place] Specific gravity (U) [Rel density] 1.026 Normal 1.005-1.030 [facility] Comment on above: Order Comment: Speci men Type: URINE SPECIMENOrdering Facility: [facility] Address: [address] [place] [address] Performed By: #### U A ####[facility] [id number] [place] [address] [place] Urobilinogen Ql (U) 1.0 EU/dL Normal 0.2-1.0 EU/dL [facility] Comment on above: Order Comment: Speci men Type: URINE SPECIMENOrdering Facility: [facility] Address: [address] [place] [address] Performed By: #### U A ####[facility] LABCLIA [id number] [place] [address] [place] aPTT PPPon 07-17-2023 aPTT Coag (PPP) [Time] 31.3 s Normal 23.0-32.4 [facility] Comment on above: Order Comment: Speci men Type: BLOOD SPECIMENOrdering Facility: [facility] Address: [address] [place] [address] Performed By: #### 3 4528-0, 45699-7 ####[facility] LABCLIA [id number] [address] [place] CNPNon 07-11-2023 CNPN Normal [facility] CNOVon 07-02-2023 CNOV Normal [facility] CNOV Normal [facility] CNOV Normal [facility] CTA ABD/PEL/LOWER EXT WO/W I VCONon 07-02-2023 CTA ABD/PEL/LOWER EXT WO/W IVCON Normal [facility] CTA CHEST (NONGATED) W IVCON on 07-02-2023 CTA CHEST (NONGATED) W IVCON Normal [facility] ECG COMPLETEon 07-02-2023 ECG COMPLETE Normal [facility] CNPTOUTREACHon 06-27-2023 CNPTOUTREACH Normal [facility] CNPNon 06-26-2023 CNPN Normal [facility] CNPTOUTREACHon 06-21-2023 CNPTOUTREACH Normal [facility] CNOVon 06-14-2023 CNOV Normal [facility] CT CHEST CARDIAC WO IVCONon 06-14-2023 CT CHEST CARDIAC WO IVCON Invalid Interpretation Code [facility] PVR LEG LOVE VAS LABon 2022 PVR LEG LOVE VAS LAB Normal [facility] US CAROTID ARTERIES LOVE VAS LABon 06-14-2023 US CAROTID ARTERIES LOVE VAS LAB Normal [facility] US LEG VEIN MAP LOVE VAS LABo n 06-14-2023 US LEG VEIN MAP LOVE VAS LAB Normal [facility] US MAMMARY ARTERY LOVE VAS LA Bon 06-14-2023 US MAMMARY ARTERY LOVE VAS LAB Normal [facility] US RADIAL ARTERY MAP LOVE VAS LABon 06-14-2023 US RADIAL ARTERY MAP LOVE VAS LAB Normal [facility] Reminderson 06-10-2023 Reminders - From: Celia Donohue LPN To: G[facility] - Clinical; Sent: 06/10/2023 15:55:47 EST Show up: 04/10/2025 07:00:00 EDT Subject: colonoscopy recall Due Date/Time: 05/11/2025 07:00:00 EST Reminder/Recall Patient due for surveillance colonoscopy 05/11/2025. Normal [facility] CNPNon 05-30-2023 CNPN Normal [facility] Comprehensive metabolic 2000 panelon 05-29-2023 Albumin [Mass/Vol] 4.2 g/dL 3.9 - 4.9 g/dL [facility] ALP [Catalytic activity/Vol] 78 U/L 34 - 123 U/L [facility] ALT [Catalytic activity/Vol] 17 U/L 7 - 38 U/L [facility] Anion gap [Moles/Vol] 15 mmol/L 9 - 18 mmol/L [facility] AST [Catalytic activity/Vol] 16 U/L 13 - 35 U/L [facility] Bilirubin [Mass/Vol] 0.2 mg/dL 0.2 - 1 .3 mg/dL [facility] Calcium [Mass/Vol] 10.5 mg/dL High 8.5 - 10. 2 mg/dL [facility] Chloride [Moles/Vol] 100 mmol/L 97 - 10 5 mmol/L [facility] CO2 [Moles/Vol] 21 mmol/L Low 22 - 30 mmol/L [facility] Creatinine [Mass/Vol] 0.82 mg/dL 0.58 - 0.96 mg/dL [facility] Estimated Glomerular Filtration Rate 79 mL/min/1.73m >=60 mL/min/1.73m [facility] Glucose [Mass/Vol] 216 mg/dL High 74 - 99 mg/dL [facility] Potassium [Moles/Vol] 4.8 mmol/L 3.7 - 5.1 mmol/L [facility] Protein [Mass/Vol] 6.7 g/dL 6.3 - 8.0 g/dL [facility] Sodium [Moles/Vol] 136 mmol/L 136 - 144 mmol/L [facility] Urea nitrogen [Mass/Vol] 22 mg/dL High 7 - 21 mg/dL [facility] LIPID PANEL, NONFASTINGon Cholesterol [Mass/Vol] 220 mg/dL High <200 mg/dL Cl [facility] HDL Cholesterol, Nonfasting 35 mg/dL Low >39 mg/dL [facility] LDL Cholesterol, Nonfasting [facility] LDL/HDL Ratio, Nonfasting [facility] Non HDL Cholesterol, Nonfasting 185 mg/dL High <130 mg/dL [facility] Total Chol/HDL Ratio, Nonfasting 6.29 mg/dL High <5.10 mg/dL [facility] Triglycerides, Nonfasting 414 mg/dL High <150 mg/dL [facility] VLDL Cholesterol, Nonfasting [facility] CBC panel Auto (Bld)on 05-28 Erythrocyte distribution width (RBC) [Ratio] 13.5 % 11.5 - 15.0 % [facility] Hematocrit (Bld) [Volume fraction] 47.6 % High 36.0 - 46.0 % [facility] Hemoglobin (Bld) [Mass/Vol] 15.6 g/dL High 11.5 - 15.5 g/dL [facility] MCH (RBC) [Entitic mass] 31.1 pg 26.0 - 34.0 pg [facility] MCHC (RBC) [Mass/Vol] 32.8 g/dL 30.5 - 36.0 g/dL [facility] MCV (RBC) [Entitic vol] 94.8 fL 80.0 - 100.0 fL [facility] Nucleated RBC (Bld) [#/Vol] <0.01 k/uL [facility] Platelet mean volume (Bld) [Entitic vol] 9.9 fL 9.0 - 12.7 fL [facility] Platelets (Bld) [#/Vol] 295 10*3/uL 150 - 400 k/uL [facility] RBC (Bld) [#/Vol] 5.02 10*6/uL 3.90 - 5.2 0 m/uL [facility] WBC (Bld) [#/Vol] 8.12 10*3/uL 3.70 - 11. 00 k/uL [facility] Erythrocyte distribution width (RBC) [Ratio] 13.5 % Normal 11.5-15.0 [facility] Comment on above: Order Comment: Speci men Type: BLOOD SPECIMENOrdering Facility: [facility] Address: [address] [place] [address] Performed By: #### 5 8410-2 ####[facility] LABCLIA [id number] [place] [address] [place] Hematocrit (Bld) [Volume fraction] 47.6 % High 36.0-46.0 [facility] Comment on above: Order Comment: Speci men Type: BLOOD SPECIMENOrdering Facility: [facility] Address: [address] [place] [address] Performed By: #### 5 8410-2 ####[facility] LABCLIA [id number] [place] [address] [place] Hemoglobin (Bld) [Mass/Vol] 15.6 g/dL High 11.5-15.5 [facility] Comment on above: Order Comment: Speci men Type: BLOOD SPECIMENOrdering Facility: [facility] Address: [address] [place] [address] Performed By: #### 5 8410-2 ####[facility] LABCLIA [id number] [place] [address] [place] MCH (RBC) [Entitic mass] 31.1 pg Normal 26.0-34.0 [facility] Comment on above: Order Comment: Speci men Type: BLOOD SPECIMENOrdering Facility: [facility] Address: [address] [place] [address] Performed By: #### 5 8410-2 ####[facility] LABCLIA [id number] [place] [address] [place] MCHC (RBC) [Mass/Vol] 32.8 g/dL Normal 30.5-36.0 [facility] Comment on above: Order Comment: Speci men Type: BLOOD SPECIMENOrdering Facility: [facility] Address: [address] [place] [address] Performed By: #### 5 8410-2 ####[facility] LABCLIA [id number] [place] [address] [place] MCV (RBC) [Entitic vol] 94.8 fL Normal 80.0-100.0 [facility] Comment on above: Order Comment: Speci men Type: BLOOD SPECIMENOrdering Facility: [facility] Address: [address] [place] [address] Performed By: #### 5 8410-2 ####[facility] LABIA [id number] [place] [address] [place] Nucleated RBC (Bld) [#/Vol] 10*3/uL Normal <0.01 [facility] Comment on above: Order Comment: Speci men Type: BLOOD SPECIMENOrdering Facility: [facility] Address: [address] [place] [address] Performed By: #### 5 8410-2 ####[facility] LABCLIA [id number] [place] [address] [place] Platelet mean volume (Bld) [Entitic vol] 9.9 fL Normal 9.0-12.7 [facility] Comment on above: Order Comment: Speci men Type: BLOOD SPECIMENOrdering Facility: [facility] Address: [address] [place] [address] Performed By: #### 5 8410-2 ####[facility] LABCLIA [id number] [place] [address] [place] Platelets (Bld) [#/Vol] 295 10*3/uL Normal 150-400 [facility] Comment on above: Order Comment: Speci men Type: BLOOD SPECIMENOrdering Facility: [facility] Address: [address] [place] [address] Performed By: #### 5 8410-2 ####[facility]CL[facility] [id number] [place] [address] [place] RBC (Bld) [#/Vol] 5.02 10*6/uL Normal 3.90-5.20 [facility] Comment on above: Order Comment: Speci men Type: BLOOD SPECIMENOrdering Facility: [facility] Address: [address] [place] [address] Performed By: #### 5 8410-2 ####[facility] [id number] [place] [address] [place] WBC (Bld) [#/Vol] 8.12 10*3/uL Normal 3.70-11.00 [facility] Comment on above: Order Comment: Speci men Type: BLOOD SPECIMENOrdering Facility: [facility] Address: [address] [place] [address] Performed By: #### 5 8410-2 ####[facility] [id number] [place] [address] [place] CNOVon 05-28-2023 CNOV Normal [facility] Comprehensive metabolic 2000 panelon 05-28-2023 Albumin [Mass/Vol] 4.2 g/dL Normal 3.9-4.9 [facility] Comment on above: Order Comment: Speci men Type: BLOOD SPECIMENOrdering Facility: [facility] Address: [address] [place] [address] Performed By: #### 3 3762-6, 86604-6, LIPNF ####[facility]CL[facility] [id number] [place] [address] [place] ALP [Catalytic activity/Vol] 78 U/L Normal 34-123 [facility] Comment on above: Order Comment: Speci men Type: BLOOD SPECIMENOrdering Facility: [facility] Address: [address] [place] [address] Performed By: #### 3 3762-6, 06755-7, LIPNF ####[facility] [id number] [place] [address] [place] ALT [Catalytic activity/Vol] 17 U/L Normal 7-38 [facility] Comment on above: Order Comment: Speci men Type: BLOOD SPECIMENOrdering Facility: [facility] Address: [address] [place] [address] Performed By: #### 3 3762-6, 88663-8, LIPNF ####[facility] [id number] [place] [address] [place] Anion gap [Moles/Vol] 15 mmol/L Normal 9-18 [facility] Comment on above: Order Comment: Speci men Type: BLOOD SPECIMENOrdering Facility: [facility] Address: [address] [place] [address] Performed By: #### 3 3762-6, 34805-8, LIPNF ####[facility] [id number] [place] [address] [place] AST [Catalytic activity/Vol] 16 U/L Normal 13-35 [facility] Comment on above: Order Comment: Speci men Type: BLOOD SPECIMENOrdering Facility: [facility] Address: [address] [place] [address] Performed By: #### 3 3762-6, 43037-9, LIPNF ####[facility] [id number] [place] [address] [place] Bilirubin [Mass/Vol] 0.2 mg/dL Normal 0.2-1.3 [facility] Comment on above: Order Comment: Speci men Type: BLOOD SPECIMENOrdering Facility: [facility] Address: [address] [place] [address] Performed By: #### 3 3762-6, 70689-6, LIPNF ####[facility] [id number] [place] [address] [place] Calcium [Mass/Vol] 10.5 mg/dL High 8.5-10.2 [facility] Comment on above: Order Comment: Speci men Type: BLOOD SPECIMENOrdering Facility: [facility] Address: [address] [place] [address] Performed By: #### 3 3762-6, , LIPNF ####[facility] [id number] [place] [address] [place] Chloride [Moles/Vol] 100 mmol/L Normal 97-105 [facility] Comment on above: Order Comment: Speci men Type: BLOOD SPECIMENOrdering Facility: [facility] Address: [address] [place] [address] Performed By: #### 3 3762-6, , LIPNF ####[facility] [id number] [place] [address] [place] CO2 [Moles/Vol] 21 mmol/L Low 22-30 [facility] Comment on above: Order Comment: Speci men Type: BLOOD SPECIMENOrdering Facility: [facility] Address: [address] [place] [address] Performed By: #### 3 3762-6, , LIPNF ####[facility] [id number] [place] [address] [place] Creatinine [Mass/Vol] 0.82 mg/dL Normal 0.58-0.96 [facility] Comment on above: Order Comment: Speci men Type: BLOOD SPECIMENOrdering Facility: [facility] Address: [address] [place] [address] Performed By: #### 3 3762-6, , LIPNF ####[facility] [id number] [place] [address] [place] Creatinine and Glomerular filtration rate.predicted panel (S/P/Bld) 79 mL/min/1.73m??? Normal >=60 [facility] Comment on above: Order Comment: Speci men Type: BLOOD SPECIMENOrdering Facility: [facility] Address: [address] [place] [address] Result Comment: Annelise mated Glomerular Filtration Rate [...] actual GFR. Performed By: #### 3 3762-6, 24802-4, LIPNF ####[facility]IA [id number] [place] [address] [place] Glucose [Mass/Vol] 216 mg/dL High 74-99 [facility] Comment on above: Order Comment: Phyllis stein Type: BLOOD SPECIMENOrdering Facility: [facility] Address: [address] [place] [address] Result Comment: The [place] Diabetes [employer] (ADA) provides guidance for cutoff values for fasting glucose and random glucose. The ADA defines fasting as no caloric intake for at least 8 hours. Fasting plasma glucose results between 100 to 125 mg/dL indicate increased risk for diabetes (prediabetes).Fasting plasma glucose results greater than or equal to 126 mg/dL meet the criteria for diagnosis of diabetes. In the absence of unequivocal hyperglycemia, results should be confirmed by repeat testing. In a patient with classic symptoms of hyperglycemia or hyperglycemic crisis, random plasma glucose results greater than or equal to 200 mg/dL meet the criteria for diagnosis of diabetes.Reference: Standards of Medical Care in Diabetes 2016, [place] [employer]. Diabetes Care. 2016.39(Suppl 1). Performed By: #### 3 3762-6, 45273-4, LIPNF ####[facility]IA [id number] [place] [address] [place] Potassium [Moles/Vol] 4.8 mmol/L Normal 3.7-5.1 [facility] Comment on above: Order Comment: Phyllis stein Type: BLOOD SPECIMENOrdering Facility: [facility] Address: [address] [place] [address] Performed By: #### 3 3762-6, 59513-3, LIPNF ####[facility] [id number] [address] [address] [place] Protein [Mass/Vol] 6.7 g/dL Normal 6.3-8.0 [facility] Comment on above: Order Comment: Speci men Type: BLOOD SPECIMENOrdering Facility: [facility] Address: [address] [place] [address] Performed By: #### 3 3762-6, 64030-7, LIPNF ####[facility] [id number] [place] [address] [place] Sodium [Moles/Vol] 136 mmol/L Normal 136-144 [facility] Comment on above: Order Comment: Speci men Type: BLOOD SPECIMENOrdering Facility: [facility] Address: [address] [place] [address] Performed By: #### 3 3762-6, , LIPNF ####[facility] LABIA [id number] [place] [address] [place] Urea nitrogen [Mass/Vol] 22 mg/dL High 7-21 [facility] Comment on above: Order Comment: Speci men Type: BLOOD SPECIMENOrdering Facility: [facility] Address: [address] [place] [address] Performed By: #### 3 3762-6, , LIPNF ####[facility] [id number] [place] [id number] [place] LIPID PANEL, NONFASTINGon Cholesterol [Mass/Vol] 220 mg/dL High <200 [facility] Comment on above: Order Comment: Speci men Type: BLOOD SPECIMENOrdering Facility: [facility] Address: [address] [place] [address] Result Comment: <200 mg/dL, Desirable 200-239 mg/dL, Borderline high>239 mg/dL, High Performed By: #### 3 3762-6, 14573-1, LIPNF ####[facility] [id number] [address] STATES OF [facility] HDL CHOLESTEROL, NF 35 mg/dL Low >39 [facility] Comment on above: Order Comment: Speci men Type: BLOOD SPECIMENOrdering Facility: [facility] Address: [address] [place] [address] Result Comment: 40-5 9 mg/dL, Acceptable>59 mg/dL, High: Negative risk factor for coronary heart disease<40 mg/dL, Low: Positive risk factor for coronary heart disease Performed By: #### 3 3762-6, 98413-7, LIPNF ####[facility] [id number] [address] [place] LDL CHOLESTEROL, NF Normal [facility] Comment on above: Order Comment: [facility]i [facility] Type: BLOOD SPECIMENOrdering Facility: [facility] Address: [address] [place] [address] Result Comment: Unab le to calculate due to increased Triglycerides. A Direct LDL Cholesterol measurement will not be performed. If clinically indicated, a fasting Basic Lipid Panel (LIPB) may be ordered. Performed By: #### 3 3762-6, 39257-6, LIPNF ####[facility] [id number] [place] [address] [place] LDL/HDL RATIO, NF Normal [facility] Comment on above: Order Comment: Speci [facility] Type: BLOOD SPECIMENOrdering Facility: [facility] Address: [address] [place] [address] Result Comment: Unab le to calculate due to elevated Triglycerides.Reference:1. National Cholesterol Education Program ATP III Guideline At-A-Glance Quick Desk Reference: National Heart, Lung, and Blood [place]. National Institutes of Health. 2001: NIH Publication No. 01-3305.2. An International Atherosclerosis Society position paper: global recommendations for the management of dyslipidemia: executive summary, Atherosclerosis. 2014: 232(2):410-413. Performed By: #### 3 3762-6, 22768-6, LIPNF ####[facility] [id number] [place] [address] [place] NON HDL CHOL, NF 185 mg/dL High <130 [facility] Comment on above: Order Comment: Speci men Type: BLOOD SPECIMENOrdering Facility: [facility] Address: [address] [place] [address] Result Comment: <130 mg/dL, Optimal 130-159 mg/dL, Near optimal/above optimal 160-189 mg/dL, Borderline high 190-219 mg/dL, High>219 mg/dL, Very highSecondary prevention optimal non HDL Cholesterol levels are recommended to be <100 mg/dL Performed By: #### 3 3762-6, 20956-9, LIPNF ####[facility] [id number] [place] [address] [place] T CHOL/HDL RATIO NF 6.29 mg/dL High <5.10 [facility] Comment on above: Order Comment: Speci men Type: BLOOD SPECIMENOrdering Facility: [facility] Address: [address] [place] [address] Performed By: #### 3 3762-6, , LIPNF ####[facility]CL[facility] [id number] [place] [address] [place] TRIGLYCERIDES, NF 414 mg/dL High <150 [facility] Comment on above: Order Comment: Speci men Type: BLOOD SPECIMENOrdering Facility: [facility] Address: [address] [place] [address] Result Comment: <150 mg/dL, Normal 150-199 mg/dL, Borderline high 200-499 mg/dL, High>499 mg/dL, Very high Performed By: #### 3 3762-6, 97457-7, LIPNF ####[facility]CL[facility] [id number] [place] [address] [place] VLDL CHOLESTEROL, NF Normal [facility] Comment on above: Order Comment: Speci men Type: BLOOD SPECIMENOrdering Facility: [facility] Address: [address] [facility] [place] [address] Result Comment: Unab le to calculate due to elevated Triglycerides. Performed By: #### 3 3762-6, 21606-4, LIPNF ####[facility] [id number] [address] [place] NT PRO BNPon 05-28-2023 Natriuretic peptide.B prohormone N-Terminal [Mass/Vol] 200 pg/mL High <125 pg/mL [facility] NT-proBNP SerPl-mCncon 05-28 Natriuretic peptide.B prohormone N-Terminal [Mass/Vol] 200 pg/mL High <125 [facility] Comment on above: Order Comment: Speci men Type: BLOOD SPECIMENOrdering Facility: [facility] Address: [place] [address] Performed By: #### 3 3762-6, 66427-5, LIPNF ####[facility] [id number] [address] [place] CNPNon 05-08-2023 CNPN Normal [facility] CNPNon 05-02-2023 CNPN Normal [facility] CNPNon 04-10-2023 CNPN Normal [facility] CBC panel Auto (Bld)on 04-03 Erythrocyte distribution width (RBC) [Ratio] 13.0 % 11.5 - 15.0 % [facility] Hematocrit (Bld) [Volume fraction] 53.9 % High 36.0 - 46.0 % [facility] Hemoglobin (Bld) [Mass/Vol] 18.6 g/dL High 11.5 - 15.5 g/dL [facility] MCH (RBC) [Entitic mass] 29.8 pg 26.0 - 34.0 pg [facility] MCHC (RBC) [Mass/Vol] 34.5 g/dL 30.5 - 36.0 g/dL [facility] MCV (RBC) [Entitic vol] 86.2 fL 80.0 - 100.0 fL [facility] Nucleated RBC (Bld) [#/Vol] <0.01 k/uL [facility] Platelet mean volume (Bld) [Entitic vol] 9.6 fL 9.0 - 12.7 fL [facility] Platelets (Bld) [#/Vol] 269 10*3/uL 150 - 400 k/uL [facility] RBC (Bld) [#/Vol] 6.25 10*6/uL High 3.90 - 5.2 0 m/uL [facility] WBC (Bld) [#/Vol] 10.50 10*3/uL 3.70 - 11 .00 k/uL [facility] Erythrocyte distribution width (RBC) [Ratio] 13.0 % Normal 11.5-15.0 [facility] Comment on above: Order Comment: Speci men Type: BLOOD SPECIMENOrdering Facility: [facility] Address: [address] [place] [address] Performed By: #### 5 8410-2 ####[facility] LABIA [id number] [place] [address] [place] Hematocrit (Bld) [Volume fraction] 53.9 % High 36.0-46.0 [facility] Comment on above: Order Comment: Speci men Type: BLOOD SPECIMENOrdering Facility: [facility] Address: [address] [place] [address] Performed By: #### 5 8410-2 ####[facility]CL[facility] [id number] [place] [address] [place] Hemoglobin (Bld) [Mass/Vol] 18.6 g/dL High 11.5-15.5 [facility] Comment on above: Order Comment: Speci men Type: BLOOD SPECIMENOrdering Facility: [facility] Address: [address] [place] [address] Performed By: #### 5 8410-2 ####[facility]CL[facility] [id number] [place] [address] [place] MCH (RBC) [Entitic mass] 29.8 pg Normal 26.0-34.0 [facility] Comment on above: Order Comment: Speci men Type: BLOOD SPECIMENOrdering Facility: [facility] Address: [address] [place] [address] Performed By: #### 5 8410-2 ####[facility] LABIA [id number] [place] [address] [place] MCHC (RBC) [Mass/Vol] 34.5 g/dL Normal 30.5-36.0 [facility] Comment on above: Order Comment: Speci men Type: BLOOD SPECIMENOrdering Facility: [facility] Address: [address] [place] [address] Performed By: #### 5 8410-2 ####[facility] LABIA [id number] [place] [address] [place] MCV (RBC) [Entitic vol] 86.2 fL Normal 80.0-100.0 [facility] Comment on above: Order Comment: Speci men Type: BLOOD SPECIMENOrdering Facility: [facility] Address: [address] [place] [address] Performed By: #### 5 8410-2 ####[facility] LABIA [id number] [place] [address] [place] Nucleated RBC (Bld) [#/Vol] 10*3/uL Normal <0.01 [facility] Comment on above: Order Comment: Speci men Type: BLOOD SPECIMENOrdering Facility: [facility] Address: [address] [place] [address] Performed By: #### 5 8410-2 ####[facility] LABIA [id number] [place] [address] [place] Platelet mean volume (Bld) [Entitic vol] 9.6 fL Normal 9.0-12.7 [facility] Comment on above: Order Comment: Speci men Type: BLOOD SPECIMENOrdering Facility: [facility] Address: [address] [place] [address] Performed By: #### 5 8410-2 ####[facility]CL[facility] [id number] [place] [address] [place] Platelets (Bld) [#/Vol] 269 10*3/uL Normal 150-400 [facility] Comment on above: Order Comment: Speci men Type: BLOOD SPECIMENOrdering Facility: [facility] Address: [address] [place] [address] Performed By: #### 5 8410-2 ####[facility] LABIA [id number] [place] [address] [place] RBC (Bld) [#/Vol] 6.25 10*6/uL High 3.90-5.20 [facility] Comment on above: Order Comment: Speci men Type: BLOOD SPECIMENOrdering Facility: [facility] Address: [address] [place] [address] Performed By: #### 5 8410-2 ####[facility] LABIA [id number] [place] [address] [place] WBC (Bld) [#/Vol] 10.50 10*3/uL Normal 3.70-11.00 [facility] Comment on above: Order Comment: Speci men Type: BLOOD SPECIMENOrdering Facility: [facility] Address: [address] [place] [address] Performed By: #### 5 8410-2 ####[facility] LABIA [id number] [place] [address] [place] CNOVon 04-03-2023 CNOV Normal [facility] Comprehensive metabolic 2000 panelon 04-03-2023 Albumin [Mass/Vol] 4.6 g/dL 3.9 - 4.9 g/dL [facility] ALP [Catalytic activity/Vol] 82 U/L 34 - 123 U/L [facility] ALT [Catalytic activity/Vol] 15 U/L 7 - 38 U/L [facility] Anion gap [Moles/Vol] 19 mmol/L High 9 - 18 mmol/L [facility] AST [Catalytic activity/Vol] 14 U/L 13 - 35 U/L [facility] Bilirubin [Mass/Vol] 0.9 mg/dL 0.2 - 1 .3 mg/dL [facility] Calcium [Mass/Vol] 10.5 mg/dL High 8.5 - 10. 2 mg/dL [facility] Chloride [Moles/Vol] 94 mmol/L Low 97 - 10 5 mmol/L [facility] CO2 [Moles/Vol] 18 mmol/L Low 22 - 30 mmol/L [facility] Creatinine [Mass/Vol] 0.81 mg/dL 0.58 - 0.96 mg/dL [facility] Estimated Glomerular Filtration Rate 81 mL/min/1.73m >=60 mL/min/1.73m [facility] Glucose [Mass/Vol] 241 mg/dL High 74 - 99 mg/dL [facility] Potassium [Moles/Vol] 4.2 mmol/L 3.7 - 5.1 mmol/L [facility] Protein [Mass/Vol] 7.5 g/dL 6.3 - 8.0 g/dL [facility] Sodium [Moles/Vol] 131 mmol/L Low 136 - 144 mmol/L [facility] Urea nitrogen [Mass/Vol] 20 mg/dL 7 - 21 mg/dL [facility] Albumin [Mass/Vol] 4.6 g/dL Normal 3.9-4.9 [facility] Comment on above: Order Comment: Speci men Type: BLOOD SPECIMENOrdering Facility: [facility] Address: [address] [place] [address] Performed By: #### 2 4323-8 ####[facility]CL[facility] [id number] [facility] [id number] [id number] [place] ALP [Catalytic activity/Vol] 82 U/L Normal 34-123 [facility] Comment on above: Order Comment: Speci men Type: BLOOD SPECIMENOrdering Facility: [facility] Address: [address] [place] [address] Performed By: #### 2 4323-8 ####[facility]CL[facility] [id number] [place] [address] [place] ALT [Catalytic activity/Vol] 15 U/L Normal 7-38 [facility] Comment on above: Order Comment: Speci men Type: BLOOD SPECIMENOrdering Facility: [facility] Address: [address] [place] [address] Performed By: #### 2 4323-8 ####[facility]CL[facility] [id number] [place] [address] [place] Anion gap [Moles/Vol] 19 mmol/L High 9-18 [facility] Comment on above: Order Comment: Speci men Type: BLOOD SPECIMENOrdering Facility: [facility] Address: [address] [place] [address] Performed By: #### 2 4323-8 ####[facility]CL[facility] [id number] [place] [address] [place] AST [Catalytic activity/Vol] 14 U/L Normal 13-35 [facility] Comment on above: Order Comment: Speci men Type: BLOOD SPECIMENOrdering Facility: [facility] Address: [address] [place] [address] Performed By: #### 2 4323-8 ####[facility]CL[facility] [id number] [place] [address] [place] Bilirubin [Mass/Vol] 0.9 mg/dL Normal 0.2-1.3 [facility] Comment on above: Order Comment: Speci men Type: BLOOD SPECIMENOrdering Facility: [facility] Address: [address] [place] [address] Performed By: #### 2 4323-8 ####[facility]CL[facility] [id number] [place] [address] [place] Calcium [Mass/Vol] 10.5 mg/dL High 8.5-10.2 [facility] Comment on above: Order Comment: Speci men Type: BLOOD SPECIMENOrdering Facility: [facility] Address: [address] [place] [address] Performed By: #### 2 4323-8 ####[facility]CL[facility] [id number] [place] [address] [place] Chloride [Moles/Vol] 94 mmol/L Low 97-105 [facility] Comment on above: Order Comment: Speci men Type: BLOOD SPECIMENOrdering Facility: [facility] Address: [address] [place] [address] Performed By: #### 2 4323-8 ####[facility]CL[facility] [id number] [place] [address] [place] CO2 [Moles/Vol] 18 mmol/L Low 22-30 [facility] Comment on above: Order Comment: Speci men Type: BLOOD SPECIMENOrdering Facility: [facility] Address: [address] [place] [address] Performed By: #### 2 4323-8 ####[facility]CL[facility] [id number] [place] [address] [place] Creatinine [Mass/Vol] 0.81 mg/dL Normal 0.58-0.96 [facility] Comment on above: Order Comment: Speci men Type: BLOOD SPECIMENOrdering Facility: [facility] Address: [address] [place] [address] Performed By: #### 2 4323-8 ####[facility]CL[facility] [id number] [place] [address] [place] Creatinine and Glomerular filtration rate.predicted panel (S/P/Bld) 81 mL/min/1.73m??? Normal >=60 [facility] Comment on above: Order Comment: Speci men Type: BLOOD SPECIMENOrdering Facility: [facility] Address: [address] [place] [address] Result Comment: Annelise mated Glomerular Filtration Rate [...] actual GFR. Performed By: #### 2 4323-8 ####[facility]CL[facility] [id number] [address] [address] [place] Glucose [Mass/Vol] 241 mg/dL High 74-99 [facility] Comment on above: Order Comment: Speci men Type: BLOOD SPECIMENOrdering Facility: [facility] Address: [address] [place] [address] Result Comment: The [place] [employer] (ADA) provides guidance for cutoff values for fasting glucose and random glucose. The ADA defines fasting as no caloric intake for at least 8 hours. Fasting plasma glucose results between 100 to 125 mg/dL indicate increased risk for diabetes (prediabetes).Fasting plasma glucose results greater than or equal to 126 mg/dL meet the criteria for diagnosis of diabetes. In the absence of unequivocal hyperglycemia, results should be confirmed by repeat testing. In a patient with classic symptoms of hyperglycemia or hyperglycemic crisis, random plasma glucose results greater than or equal to 200 mg/dL meet the criteria for diagnosis of diabetes.Reference: Standards of Medical Care in Diabetes 2016, [place] [employer]. Diabetes Care. 2016.39(Suppl 1). Performed By: #### 2 4323-8 ####[facility]CL[facility] [id number] [place] [id number] [place] Potassium [Moles/Vol] 4.2 mmol/L Normal 3.7-5.1 [facility] Comment on above: Order Comment: Phyllis stein Type: BLOOD SPECIMENOrdering Facility: [facility] Address: [address] [place] [address] Performed By: #### 2 4323-8 ####[facility] LABCLIA [id number] [facility] [address] [address] [place] Protein [Mass/Vol] 7.5 g/dL Normal 6.3-8.0 [facility] Comment on above: Order Comment: Speci men Type: BLOOD SPECIMENOrdering Facility: [facility] Address: [address] [place] [address] Performed By: #### 2 4323-8 ####[facility] LABCLIA [id number] [place] [address] [place] Sodium [Moles/Vol] 131 mmol/L Low 136-144 [facility] Comment on above: Order Comment: Speci men Type: BLOOD SPECIMENOrdering Facility: [facility] Address: [address] [place] [address] Performed By: #### 2 4323-8 ####[facility] LABCLIA [id number] [place] [address] [place] Urea nitrogen [Mass/Vol] 20 mg/dL Normal 7-21 [facility] Comment on above: Order Comment: Speci men Type: BLOOD SPECIMENOrdering Facility: [facility] Address: [address] [place] [address] Performed By: #### 2 4323-8 ####[facility] LABCLIA [id number] [place] [address] [place] ECG COMPLETEon 04-03-2023 ECG COMPLETE Normal [facility] HbA1c (Bld)on 04-03-2023 Average glucose Estimated from glycated hemoglobin (Bld) [Mass/Vol] 163 mg/dL [facility] HbA1c (Bld) [Mass fraction] 7.3 % High 4.3 - 5.6 % [facility] Average glucose Estimated from glycated hemoglobin (Bld) [Mass/Vol] 163 mg/dL Normal [facility] Comment on above: Order Comment: Speci men Type: BLOOD SPECIMENOrdering Facility: [facility] Address: [address] [place] [address] Result Comment: eAG: (Estimated average glucose) is a calculated value from HgbA1c and is district representative of the average blood glucose level in the last 2-3 month period. Performed By: #### 5 5454-3 ####[facility] LABCLIA [id number] [place] [address] [place] HbA1c (Bld) [Mass fraction] 7.3 % High 4.3-5.6 [facility] Comment on above: Order Comment: Phyllis stein Type: BLOOD SPECIMENOrdering Facility: [facility] Address: [address] [place] [address] Result Comment: [place] Diabetes Association guidelines indicate that patients with HgbA1c in the range 5.7-6.4% are at increased risk for development of diabetes, and intervention by lifestyle modification may be beneficial. HgbA1c greater or equal to 6.5% is considered diagnostic of diabetes. Performed By: #### 5 5454-3 ####[facility] LABCLIA [id number] [place] PT panel Coag (PPP)on 2022 INR Coag (PPP) [Relative time] 1.1 {INR} 0.9 - 1.3 [facility] PT Coag (PPP) [Time] 11.4 s 9.7 - 1 3.0 sec [facility] INR Coag (PPP) [Relative time] 1.1 {INR} Normal 0.9-1.3 [facility] Comment on above: Order Comment: Phyllis stein Type: BLOOD SPECIMENOrdering Facility: [facility] Address: [address] [place] [address] Result Comment: Suzanne min K Antagonist (VKA) Therapeutic Range: INR 2 to 3 (Target INR of 2.5)Note: For patients treated with VKA drugs, such as warfarin, the [place] [employer] 2012 Guideline recommends a therapeutic INR range of 2 to 3 (target INR of 2.5). This recommendation includes high-risk patients with antiphospholipid syndrome with previous arterial or venous thromboembolism, current-generation mechanical or bioprosthetic aortic heart valve replacement.Note: Patients with mechanical aortic valve replacement and additional risk factors for thromboembolic events (atrial fibrillation, previous thromboembolism, LV dysfunction, hypercoagulable conditions) or an older generation mechanical AVR (i.e., ball in-Cage) or any mechanical MVR should have a INR therapeutic range of 2.5 to 3.5 (target INR of 3).Guyatt GH, et al. Chest 2012, 141:7S-47SMarcel RA, et al. [facility] 2017, 70: 252-289 Performed By: #### 3 4528-0 ####[facility] LABCLIA [id number] [place] [address] [place] PT Coag (PPP) [Time] 11.4 s Normal 9.7-13.0 [facility] Comment on above: Order Comment: Speci men Type: BLOOD SPECIMENOrdering Facility: [facility] Address: [address] [place] [address] Performed By: #### 3 4528-0 ####[facility] LABIA [id number] [place] [address] [place] Activated partial thrombopla stin time (aPTT) in platelet poor plasma by coagulation aOrdered By: Patrizia Melendrez on 03-20-2023 aPTT Coag (PPP) [Time] 28.8 s 25.1-36.5 [facility] Comment on above: A hematocrit value g reater than 55% may lead to inaccurate results in coagulation testing. Patients having hematocrit values >55% require a special collection tube for coagulation studies. Please contact the laboratory at [phone] for redraw instructions. Basophils Auto (Bld) [#/Vol] Ordered By: Patrizia Melendrez on 03-20-2023 Basophils (Bld) [#/Vol] 0.0 10*3/uL 0.0-0.2 [facility] Basophils/100 WBC Auto (Bld) Ordered By: Patrizia Melendrez on 03-20-2023 Basophils/100 WBC (Bld) 0.4 % . [facility] Blood Urea Nitrogenon 2022 Urea nitrogen [Mass/Vol] 21 mg/dL Normal 7-25 [facility] Comment on above: Performed By: #### B UN, CBC, CREAT, PP, LYTES, LIPID #### [facility] [address] Carbon dioxide, total [Moles /volume] in Serum or PlasmaOrdered By: Patrizia Melendrez on 03-20-2023 CO2 [Moles/Vol] 28.8 mmol/L 21.0-31.0 [facility] Chloride [Moles/volume] in S radha or PlasmaOrdered By: Patrizia Melendrez on 03-20-2023 Chloride [Moles/Vol] 105 mmol/L 98-107 [facility] Cholesterol [Mass/volume] in Serum or PlasmaOrdered By: Patrizia Melendrez on 03-20-2023 Cholesterol [Mass/Vol] 270 mg/dL 140-200 [facility] Comment on above: Chol less than 200 m g/dl low riskChol 201-239 mg/dl borderline riskChol 240 mg/dl and greater high risk Cholesterol in LDL Calc [Mas s/Vol]Ordered By: Patrizia Melendrez on 03-20-2023 Cholesterol in LDL [Mass/Vol] 170 mg/dL 0-100 [facility] Comment on above: LDL ATP III CLASSIFI CATIONLDL less than 100 mg/dL OptimalLDL 100-129 mg/dL Near or above optimalLDL 130-159 mg/dL Borderline highLDL 160-189 mg/dL HighLDL greater than 189 mg/dL Very high Cholesterol in VLDL Calc [Ma ss/Vol]Ordered By: Patrizia Melendrez on 03-20-2023 Cholesterol in VLDL [Mass/Vol] 55 mg/dL [facility] Coagulation Profileon 2022 aPTT Coag (Bld) [Time] 28.8 s Normal 25.1-36.5 [facility] Comment on above: Result Comment: A he matocrit value greater than 55% may lead to inaccurate results in coagulation testing. Patients having hematocrit values >55% require a special collection tube for coagulation studies. Please contact the laboratory at [phone] for redraw instructions. PERFORMED BY: [place] [id number] PATHOLOGIST [employer] KEVYN DAVIDSON M.D. Performed By: #### B UN, CBC, CREAT, PP, LYTES, LIPID #### [address] INR Coag (PPP) [Relative time] 0.9 {INR} Normal [facility] Comment on above: Result Comment: INR Therapeutic [...] UN, CBC, CREAT, PP, LYTES, LIPID #### [facility] [address] PT Coag (PPP) [Time] 11.2 s Normal 9.0-12.9 [facility] Comment on above: Result Comment: A he matocrit value greater than 55% may lead to inaccurate results in coagulation testing. Patients having hematocrit values >55% require a special collection tube for coagulation studies. Please contact the laboratory at [phone] for redraw instructions. Performed By: #### B UN, CBC, CREAT, PP, LYTES, LIPID #### [facility] [address] Complete Blood Count Auto Di ffon 03-20-2023 Basophils (Bld) [#/Vol] 0.0 10*3/uL Normal 0.0-0.2 [facility] Comment on above: Result Comment: PERF ORMED BY: [place] [address] PATHOLOGIST [employer] KEVYN DAVIDSON M.D. Performed By: #### B UN, CBC, CREAT, PP, LYTES, LIPID #### [facility] [address] Basophils/100 WBC (Bld) 0.4 % Normal . [facility] Comment on above: Performed By: #### B UN, CBC, CREAT, PP, LYTES, LIPID #### [facility] [address] Eosinophils (Bld) [#/Vol] 0.3 10*3/uL Normal 0.0-0.45 [facility] Comment on above: Performed By: #### B UN, CBC, CREAT, PP, LYTES, LIPID #### [address] Eosinophils/100 WBC (Bld) 4.1 % Normal . [facility] Comment on above: Performed By: #### B UN, CBC, CREAT, PP, LYTES, LIPID #### [address] Erythrocyte distribution width (RBC) [Ratio] 14.4 % Normal 11.9-15.3 [facility] Comment on above: Performed By: #### B UN, CBC, CREAT, PP, LYTES, LIPID #### [address] Hematocrit (Bld) [Volume fraction] 47.2 % High 34.0-46.4 [facility] Comment on above: Performed By: #### B UN, CBC, CREAT, PP, LYTES, LIPID #### [address] Hemoglobin (Bld) [Mass/Vol] 16.0 g/dL High 11.8-15.4 [facility] Comment on above: Performed By: #### B UN, CBC, CREAT, PP, LYTES, LIPID #### [address] Lymphocytes (Bld) [#/Vol] 2.5 10*3/uL Normal 1.00-4.8 [facility] Comment on above: Performed By: #### B UN, CBC, CREAT, PP, LYTES, LIPID #### [address] Lymphocytes/100 WBC (Bld) 34.2 % Normal . [facility] Comment on above: Performed By: #### B UN, CBC, CREAT, PP, LYTES, LIPID #### [address] MCH (RBC) [Entitic mass] 30.5 pg Normal 24.7-34.3 [facility] Comment on above: Performed By: #### B UN, CBC, CREAT, PP, LYTES, LIPID #### [address] MCV (RBC) [Entitic vol] 89.9 fL Normal 80-100 [facility] Comment on above: Performed By: #### B UN, CBC, CREAT, PP, LYTES, LIPID #### [address] Mean Corpuscular HGB Conc 33.9 g/dL Normal 32.0-35.0 [facility] Comment on above: Performed By: #### B UN, CBC, CREAT, PP, LYTES, LIPID #### [address] Monocytes (Bld) [#/Vol] 0.6 10*3/uL Normal 0.0-0.8 [facility] Comment on above: Performed By: #### B UN, CBC, CREAT, PP, LYTES, LIPID #### [address] Monocytes/100 WBC (Bld) 8.4 % Normal . [facility] Comment on above: Performed By: #### B UN, CBC, CREAT, PP, LYTES, LIPID #### [address] Neutrophils (Bld) [#/Vol] 3.8 10*3/uL Normal 1.8-7.7 [facility] Comment on above: Performed By: #### B UN, CBC, CREAT, PP, LYTES, LIPID #### [address] Neutrophils/100 WBC (Bld) 52.9 % Normal . [facility] Comment on above: Performed By: #### B UN, CBC, CREAT, PP, LYTES, LIPID #### [address] NRBC% 0.1 /100{WBC} Normal 0-0.5 [facility] Comment on above: Performed By: #### B UN, CBC, CREAT, PP, LYTES, LIPID #### [address] Platelet mean volume (Bld) [Entitic vol] 8.0 fL Normal 6.3-10.7 [facility] Comment on above: Performed By: #### B UN, CBC, CREAT, PP, LYTES, LIPID #### [address] Platelets (Bld) [#/Vol] 232 10*3/uL Normal 150-450 [facility] Comment on above: Performed By: #### B UN, CBC, CREAT, PP, LYTES, LIPID #### [address] RBC (Bld) [#/Vol] 5.25 10*6/uL High 3.60-5.00 [facility] Comment on above: Performed By: #### B UN, CBC, CREAT, PP, LYTES, LIPID #### [address] WBC (Bld) [#/Vol] 7.3 10*3/uL Normal 3.8-11.6 [facility] Comment on above: Performed By: #### B UN, CBC, CREAT, PP, LYTES, LIPID #### [address] Creatinineon 03-20-2023 Creatinine [Mass/Vol] 0.83 mg/dL Normal 0.60-1.20 [facility] Comment on above: Performed By: #### B UN, CBC, CREAT, PP, LYTES, LIPID #### [address] GFR/1.73 sq M.predicted MDRD (S/P/Bld) [Vol rate/Area] mL/min/{1.73_m2} [facility] Comment on above: Performed By: #### B UN, CBC, CREAT, PP, LYTES, LIPID #### [address] [place] [address] [place] Creatinine [Mass/volume] in Serum or PlasmaOrdered By: Patrizia Melendrez on 03-20-2023 Creatinine [Mass/Vol] 0.83 mg/dL 0.60-1.20 [facility] Electrolyteson 03-20-2023 Anion gap [Moles/Vol] 8.5 mmol/L Normal 6.0-15.0 [facility] Comment on above: Performed By: #### B UN, CBC, CREAT, PP, LYTES, LIPID #### [address] Chloride [Moles/Vol] 105 mmol/L Normal 98-107 [facility] Comment on above: Performed By: #### B UN, CBC, CREAT, PP, LYTES, LIPID #### [address] CO2 [Moles/Vol] 28.8 mmol/L Normal 21.0-31.0 [facility] Comment on above: Performed By: #### B UN, CBC, CREAT, PP, LYTES, LIPID #### [address] Potassium [Moles/Vol] 4.3 mmol/L Normal 3.5-5.1 [facility] Comment on above: Performed By: #### B UN, CBC, CREAT, PP, LYTES, LIPID #### [facility] [address] [place] [address] Sodium [Moles/Vol] 138 mmol/L Normal 136-145 [facility] Comment on above: Performed By: #### B UN, CBC, CREAT, PP, LYTES, LIPID #### [place] [address] [place] Eosinophils Auto (Bld) [#/Vo l]Ordered By: Patrizia Melendrez on 03-20-2023 Eosinophils (Bld) [#/Vol] 0.3 10*3/uL 0.0-0.45 [facility] Eosinophils/100 WBC Auto (Bl d)Ordered By: Patrizia Melendrez on 03-20-2023 Eosinophils/100 WBC (Bld) 4.1 % . [facility] Erythrocyte distribution wid th Auto (RBC) [Ratio]Ordered By: Patrizia Melendrez on 03-20-2023 Erythrocyte distribution width (RBC) [Ratio] 14.4 % 11.9-15.3 [facility] Hematocrit Auto (Bld) [Volum e fraction]Ordered By: Patrizia Melendrez on 03-20-2023 Hematocrit (Bld) [Volume fraction] 47.2 % 34.0-46.4 [facility] Hemoglobin [Mass/volume] in BloodOrdered By: Patrizia Melendrez on 03-20-2023 Hemoglobin (Bld) [Mass/Vol] 16.0 g/dL 11.8-15.4 [facility] INR in Platelet poor plasma by Coagulation assayOrdered By: Patrizia Melendrez on 03-20-2023 INR Coag (PPP) [Relative time] 0.9 {INR} [facility] Comment on above: INR Therapeutic Rang e [...] RBC Auto (Bld) [#/Vol] 7.3 10*3/uL 3.8-11.6 [facility] Lipid Panelon 03-20-2023 Cholesterol [Mass/Vol] 270 mg/dL High 140-200 [facility] Comment on above: Result Comment: Chol less than 200 mg/dl low risk Chol 201-239 mg/dl borderline risk Chol 240 mg/dl and greater high risk Performed By: #### B UN, CBC, CREAT, PP, LYTES, LIPID #### [facility] [address] Cholesterol in HDL [Mass/Vol] 45 mg/dL Normal 23-92 [facility] Comment on above: Result Comment: HDL CHOL ATP-III CLASSIFICATION Cardiovascular Risk HDL > or equal to 60 mg/dL LOW HDL < 40 mg/dL HIGH Performed By: #### B UN, CBC, CREAT, PP, LYTES, LIPID #### [facility] [address] Cholesterol.total/Chol esterol in HDL [Mass ratio] 6.0 {ratio} Normal <5.0 [facility] Comment on above: Result Comment: PERF ORMED BY: [place] [address] PATHOLOGIST [employer]ING [employer] KEVYN DAVIDSON M.D. Performed By: #### B UN, CBC, CREAT, PP, LYTES, LIPID #### [address] LDL Cholesterol,Calculated 170 mg/dL High 0-100 [facility] Comment on above: Result Comment: LDL ATP III CLASSIFICATION LDL less than 100 mg/dL Optimal LDL 100-129 mg/dL Near or above optimal LDL 130-159 mg/dL Borderline high LDL 160-189 mg/dL High LDL greater than 189 mg/dL Very high Performed By: #### B UN, CBC, CREAT, PP, LYTES, LIPID #### [address] Triglyceride w/Reflex 277 mg/dL High 0-149 [facility] Comment on above: Result Comment: TRIG ATP III CLASSIFICATION TRIG less than 150 mg/dL Normal TRIG 150-199 mg/dL Borderline high TRIG 200-500 mg/dL High TRIG greater than 500 mg/dL Very high Standard traceable to the Center for Disease Conrtrol and Prevention (CDC) test method. Performed By: #### B UN, CBC, CREAT, PP, LYTES, LIPID #### [facility] [address] VLDL CHOLESTEROL 55 mg/dL Normal [facility] Comment on above: Performed By: #### B UN, CBC, CREAT, PP, LYTES, LIPID #### [facility] [address] Lymphocytes Auto (Bld) [#/Vo l]Ordered By: Patrizia Melendrez on 03-20-2023 Lymphocytes (Bld) [#/Vol] 2.5 10*3/uL 1.00-4.8 [facility] Lymphocytes/100 WBC Auto (Bl d)Ordered By: Patrizia Melendrez on 03-20-2023 Lymphocytes/100 WBC (Bld) 34.2 % . [facility] MCH Auto (RBC) [Entitic mass ]Ordered By: Patrizia Melendrez on 03-20-2023 MCH (RBC) [Entitic mass] 30.5 pg 24.7-34.3 [facility] MCHC Auto (RBC) [Mass/Vol]Or dered By: Patrizia Melendrez on 03-20-2023 MCHC (RBC) [Mass/Vol] 33.9 g/dL 32.0-35.0 [facility] MCV Auto (RBC) [Entitic vol] Ordered By: Patrizia Melendrez on 03-20-2023 MCV (RBC) [Entitic vol] 89.9 fL 80-100 [facility] Monocytes Auto (Bld) [#/Vol] Ordered By: Patrizia Melendrez on 03-20-2023 Monocytes (Bld) [#/Vol] 0.6 10*3/uL 0.0-0.8 [facility] Monocytes/100 WBC Auto (Bld) Ordered By: Patrizia Melendrez on 03-20-2023 Monocytes/100 WBC (Bld) 8.4 % . [facility] Neutrophils Auto (Bld) [#/Vo l]Ordered By: Patrizia Melendrez on 03-20-2023 Neutrophils (Bld) [#/Vol] 3.8 10*3/uL 1.8-7.7 [facility] Neutrophils/100 WBC Auto (Bl d)Ordered By: Patrizia Melendrez on 03-20-2023 Neutrophils/100 WBC (Bld) 52.9 % . [facility] No Panel InformationOrdered By: Patrizia Melendrez on 03-20-2023 Estimated GFR (CKD-EPI) > 60.0 mL/Min [facility] Creatinine Clearance (Chem N/A [facility] Nucleated erythrocytes [Pres ence] in Blood by Automated countOrdered By: Patrizia Melendrez on 03-20-2023 Nucleated RBC Auto Ql (Bld) 0.1 /100{WBC} 0-0.5 [facility] Platelet mean volume Auto (B ld) [Entitic vol]Ordered By: Patrizia Melendrez on 03-20-2023 Platelet mean volume (Bld) [Entitic vol] 8.0 fL 6.3-10.7 [facility] Platelets Auto (Bld) [#/Vol] Ordered By: Patrizia Melendrez on 03-20-2023 Platelets (Bld) [#/Vol] 232 10*3/uL 150-450 [facility] Potassium [Moles/volume] in Serum or PlasmaOrdered By: Patrizia Melendrez on 03-20-2023 Potassium [Moles/Vol] 4.3 mmol/L 3.5-5.1 [facility] Prothrombin time (PT)Ordered By: Patrizia Melendrez on 03-20-2023 PT Coag (PPP) [Time] 11.2 s 9.0-12.9 [facility] Comment on above: A hematocrit value g reater than 55% may lead to inaccurate results in coagulation testing. Patients having hematocrit values >55% require a special collection tube for coagulation studies. Please contact the laboratory at [phone] for redraw instructions. RBC Auto (Bld) [#/Vol]Ordere d By: Patrizia Melendrez on 03-20-2023 RBC (Bld) [#/Vol] 5.25 10*6/uL 3.60-5.00 [facility] Serum or plasma anion gap de terminationOrdered By: Patrizia Melendrez on 03-20-2023 Anion gap [Moles/Vol] 8.5 mmol/L 6.0-15.0 [facility] Serum or plasma high density lipoprotein (HDL) cholesterol measurementOrdered By: Patrizia Melendrez on 03-20-2023 Cholesterol in HDL [Mass/Vol] 45 mg/dL 23-92 [facility] Comment on above: HDL CHOL ATP-III CLA SSIFICATION Cardiovascular RiskHDL > or equal to 60 mg/dL LOWHDL < 40 mg/dL HIGH Serum or plasma total choles terol/high density lipoprotein (HDL) cholesterol mass ratOrdered By: Patrizia Melendrez on 03-20-2023 Cholesterol.total/Chol esterol in HDL [Mass ratio] 6.0 {ratio} <5.0 [facility] Sodium [Moles/volume] in Ser um or PlasmaOrdered By: Patrizia Melendrez on 03-20-2023 Sodium [Moles/Vol] 138 mmol/L 136-145 [facility] Triglyceride [Mass/volume] i n Serum or PlasmaOrdered By: Patrizia Melendrez on 03-20-2023 Triglyceride [Mass/Vol] 277 mg/dL 0-149 [facility] Comment on above: TRIG ATP III CLASSIF ICATIONTRIG less than 150 mg/dL NormalTRIG 150-199 mg/dL Borderline highTRIG 200-500 mg/dL High TRIG greater than 500 mg/dL Very highStandard traceable to the Center for Disease Conrtrol and Prevention (CDC) test method. Urea nitrogen [Mass/volume] in Serum or PlasmaOrdered By: Patrizia Melendrez on 03-20-2023 Urea nitrogen [Mass/Vol] 21 mg/dL 7-25 [facility] WBC Auto (Bld) [#/Vol]Ordere d By: Patrizia Melendrez on 03-20-2023 WBC (Bld) [#/Vol] 7.3 10*3/uL 3.8-11.6 [facility] CREATININEon 10-01-2022 Creatinine [Mass/Vol] 0.73 mg/dL Normal 0.55-1.02 [facility] Comment on above: Performed By: #### C PRISCILLA ####[facility] [id number] [place], [place] [address]Tv. Gonzalo Willis EGFR-AF BELGIAN >60 Normal >=60 [facility] Comment on above: Performed By: #### C PRISCILLA ####[facility] [id number] [place] [id number]. Gonzalo Willis EGFR-NON AF BELGIAN >60 Normal >=60 [facility] Comment on above: Performed By: #### C PRISCILLA ####[facility] [id number] [place], [place] [address]P[address] CT NECK ST WO W CONon [...] the sternoclavicular joint. Electronically authenticated by: SHAWN GRAFF Date: 2022-10-01 09:51 Normal [facility] US THYROIDon 09-04-2022 US THYROID EXAMINATION: [...] needle aspiration (FNA). Electronically authenticated by: SHAWN GRAFF Date: 2022-09-04 16:52 Normal [facility] US CAROTID ART BILon 023 US [...] >70 >225 >4.0 Electronically authenticated by: NISA EDWARDS Date: 2022-08-22 17:29 Normal [facility] Office Visit (Cardiology)on 07-19-2022 Follow-up visit Diagnoses/Problems [...] no s (more content not included)... Normal [facility] Tobacco Screening.on 023 Adult depression screening assessment [facility] CeleryMario Alberto jacques 250 DO Work Phone: Fall risk assessment a) No falls within the last year [facility] Vipul hanna 250 DO Work Phone: Tobacco use status [facility] b) No [facility] CeleryMario Alberto hanna 250 DO Work Phone: ECHOCARDIO M/2D COMPLETEon 1 07-29-2021 ECHOCARDIO M/2D COMPLETE Patient: ELIZABETH QUEZADA Exam Date: 05/28/2022 : 1960 Gender:F Ordering : DR NANO NGUYEN . Admission #: [id number] Family : Order #: [id number] CLICK HERE TO VIEW EXAM ECHOCARDIOGRAM REPORT [...] Kamara M.D. on 05/30/2022 at 11:06 Normal [facility] MG MAMM SCREEN 3D LOVE CADon 05-25-2022 MG MAMM SCREEN 3D LOVE CAD Patient: ELIZABETH QUEZADA Exam Date: 05/25/2022 : 1960 Gender:F Ordering : DR NANO NGUYEN . Admission #: [id number] Family : Order #: [id number] CLICK HERE TO VIEW EXAM RADIOLOGY REPORT [...] lung cancer at age 58. LOCATION: [facility] BREAST COMPOSITION: Almost entirely fatty. FINDINGS: DIAGNOSTIC [...] LUMP SHOULD BE BIOPSIED. Dictated by: Nisa Edwards MD on 05/25/2022 at 09:49 Approved by: Nisa Edwards MD on 05/25/2022 at 09:51 Normal [facility] NM STRESS/REST MULTIon 05-22 NM STRESS/REST MULTI Patient: PILAR EMILY ORTIZ SaritaMel Exam Date: 05/22/2022 : 1960 Gender:F Ordering : DR NANO NGUYEN . Admission #: [id number] Family : Order #: [id number] CLICK HERE TO VIEW EXAM RADIOLOGY REPORT [...] upper limits of normal. Dictated by: Shawn Graff M.D. on 05/22/2022 at 15:53 Approved by: Shawn Graff M.D. on 05/22/2022 at 15:59 Normal [facility] CT LUNG CANCER SCREENINGon 1 07-11-2021 [...] in 12 months. Electronically authenticated by: NISA EDWARDS Date: 2022-05-11 15:25 Normal [facility] CBC AUTO DIFFon 05-10-2022 BASO # 0.0 103/ul Normal 0.0-0.1 [facility] Comment on above: Performed By: #### C BC ####[facility] Xk[address]jqpuqs[address] [place] [address]Dr. Gonzalo Willis Basophils/100 WBC (Bld) 0.5 % Normal 0.2-2.0 [facility] Comment on above: Performed By: #### C BC ####[facility] Uaedzkdzih[address] [place], [place] [address]Dr. Gonzalo Willis EO # 0.2 103/ul Normal 0.0-0.7 [facility] Comment on above: Performed By: #### C BC ####[facility] Btgdspkycv27[address] [place] [address]Dr. Gonzalo Willis Eosinophils/100 WBC (Bld) 1.8 % Normal 0.9-7.0 [facility] Comment on above: Performed By: #### C BC ####[facility] Lyarxjhqbt[address] [place], [place] [address]Dr. Gonzalo Willis Erythrocyte distribution width (RBC) [Ratio] 12.4 % Normal 11.0-15.0 [facility] Comment on above: Performed By: #### C BC ####[facility] Gvhrdmhmac[address] [place], [place] [address]Dr. Gonzalo Willis Hematocrit (Bld) [Volume fraction] 53.7 % Critically high 36.0-48.0 [facility] Comment on above: Performed By: #### C BC ####[facility] Jpwrmarevy[address] [place] [address]Dr. Gonzalo Willis Hemoglobin (Bld) [Mass/Vol] 18.4 g/dL Critically high 12.0-16.0 [facility] Comment on above: Performed By: #### C BC ####[facility] Nstotiedmt8189[address] [place], [place] [address]Dr. Gonzalo Willis IG # 0.04 10e3/ul Critically high 0.00-0.03 [facility] Comment on above: Performed By: #### C BC ####[facility] Oirceipkxp036[address] [place] [address]DrMel Chantellkaleb Willis IG % 0.5 % Normal 0.0-0.5 [facility] Comment on above: Performed By: #### C BC ####[facility] Xipjzofnus7[address] [place], [place] [address]DrMel Gonzalo Lazaro LYMPH # 2.5 103/ul Normal 1.2-3.8 [facility] Comment on above: Performed By: #### C BC ####[facility] Trpmguszwo[address] [place], [place] [address]DrMel Chantellkaleb Willis Lymphocytes/100 WBC (Bld) 29.2 % Normal 20.5-60.0 [facility] Comment on above: Performed By: #### C BC ####[facility] Tehuesecju423[address] [place], [place] [address]DrMel Willis MANUAL DIFF REQ NO Normal [facility] Comment on above: Performed By: #### C BC ####[facility] Tqmhlwjwpa[address] [place], [place] [address]DrMel Gonzalo Lazaro MCH (RBC) [Entitic mass] 31.2 pg Normal 26.7-34.0 [facility] Comment on above: Performed By: #### C BC ####[facility] Sqhzjxkeha[address] [place], [place] [address]DrMel Gonzalo Lazaro MCHC (RBC) [Mass/Vol] 34.3 g/dL Normal 29.9-35.2 [facility] Comment on above: Performed By: #### C BC ####[facility] Kofpxaxghf[address] [place], [place] [address]DrMel Chantellkaleb Willis MCV (RBC) [Entitic vol] 91.0 fL Normal 81.0-99.0 [facility] Comment on above: Performed By: #### C BC ####[facility] Znrkbxenyw[address] [place], [place] [address]DrMel Willis MONO # 0.6 103/ul Normal 0.3-0.8 [facility] Comment on above: Performed By: #### C BC ####[facility] Yzrssyqeal7[address] [place] [id number]. Gonzalo Willis Monocytes/100 WBC (Bld) 7.2 % Normal 1.7-12.0 [facility] Comment on above: Performed By: #### C BC ####[facility] Wmaqtxnxhg3198 [place] [id number]. Gonzalo Willis NEUT # 5.3 103/ul Normal 1.4-6.5 [facility] Comment on above: Performed By: #### C BC ####[facility] Ikmkspmxep2568 [place] [id number]. Gonzalo Willis Neutrophils/100 WBC (Bld) 60.8 % Normal 43.0-75.0 [facility] Comment on above: Performed By: #### C BC ####[facility] Czleupzfmn[address] [place] [address]Dr. Gonzalo Willis Platelet mean volume (Bld) [Entitic vol] 9.5 fL Normal 9.5-13.5 [facility] Comment on above: Performed By: #### C BC ####[facility] Otvxidesru2875 [place] [address]Dr. Gonzalo Willis PLT 265 103/ul Normal 150-450 [facility] Comment on above: Performed By: #### C BC ####[facility] Cmohhawbid6596 [place] [id number]. Gonzalo Willis RBC 5.90 106/ul Critically high 4.20-5.40 [facility] Comment on above: Performed By: #### C BC ####[facility] Ywclfllljs2054 [place] [id number]. Gonzalo Willis WBC 8.7 103/ul Normal 4.0-11.0 [facility] Comment on above: Performed By: #### C BC ####[facility] Tlubkg[address]cm[address] [place] [id number]. Gonzalo Willis FREE THYROXINE INDEX T7on FTI 2.74 Normal 1.30-4.50 [facility] Comment on above: Performed By: #### T 7, TSH, CMP, LIPID ####[facility] Jluclrlahi7[address] [place] [address]Dr. Gonzalo Willis T3U 33.0 % Normal 30.0-39.0 [facility] Comment on above: Performed By: #### T 7, TSH, CMP, LIPID ####[facility] Bxtrkipnje3[address] [place] [address]Dr. Gonzalo Willis T4 [Mass/Vol] 8.30 ug/dL Normal 4.80-13.90 [facility] Comment on above: Performed By: #### T 7, TSH, CMP, LIPID ####[facility] Wcvzgqebvq9[address] [place] [address]Dr. Gonzalo Willis GLYCOHEMOGLOBIN A1Con 2021 ADA RECOMMENDATION SEE BELOW Normal The [facility] Comment on above: Result Comment: ADA RECOMMENDED LIMIT 4.0 - 6.0 ADA THERAPEUTIC TARGET < 7.0 ACTION SUGGESTED > 7.0 Performed By: #### A 1C ####[facility] Cwpxbplepb[address] [place], [place] [address]Dr. Gonzalo Willis Glucose [Mass/Vol] 192 mg/dL Normal [facility] Comment on above: Performed By: #### A 1C ####[facility] Iytroxockz50[address] [place] [address]Dr. Gonzalo Willis HbA1c (Bld) [Mass fraction] 8.3 % Critically high 4.5-6.2 [facility] Comment on above: Performed By: #### A 1C ####[facility] Uettqxpxbm04[address] [place] [address]Dr. Gonzalo Willis IRONon 05-10-2022 Iron [Mass/Vol] 193.0 ug/dL Critically high 50.0-170.0 [facility] Comment on above: Performed By: #### I MATTHEW MONTELONGO, VITB12 ####[facility] Ggjuxnqrpm[address] [place] [address]Dr. Gonzalo Willis LIPID PROFILEon 05-10-2022 CHOL-HDL RATIO NORM SEE BELOW Normal [facility] Comment on above: Result Comment: 3.3 - 4.4 LOW RISK 4.4 - 7.1 AVERAGE RISK 7.1 - 11.0 MODERATE RISK >11.0 HIGH RISK Performed By: #### T 7, TSH, CMP, LIPID #### [facility] Laboratory [address] [place] [address] Dr. Gonzalo Willis Cholesterol [Mass/Vol] 262 mg/dL Critically high <=200 [facility] Comment on above: Performed By: #### T 7, TSH, CMP, LIPID #### [facility] Laboratory [address] [address] [address] Gonzalo Willis Cholesterol in HDL [Mass/Vol] 57 mg/dL Normal 40-60 [facility] Comment on above: Performed By: #### T 7, TSH, CMP, LIPID #### [facility] Laboratory [address] [place] [address] Dr. Gonzalo Willis Cholesterol in LDL [Mass/Vol] 177.4 mg/dL Normal [facility] Comment on above: Performed By: #### T 7, TSH, CMP, LIPID #### [facility] Laboratory [address] [place] [address] Dr. Gonzalo Willis Cholesterol.total/Chol esterol in HDL [Mass ratio] 4.6 {ratio} Normal [facility] Comment on above: Performed By: #### T 7, TSH, CMP, LIPID #### [facility] Laboratory [address] [place] [address] Dr. Gonzalo Willis HDL NORMAL > or = 60 mg/dl - LO W CARDIOVASCULAR RISK <40 mg/dl - HIGH CARDIOVASCULAR RISK Normal [facility] Comment on above: Performed By: #### T 7, TSH, CMP, LIPID #### [facility] Laboratory [address] [place] [address] Dr. Gonzalo Willis LDL CALC NORMAL SEE BELOW Normal [facility] Comment on above: Result Comment: <100 mg/dl OPTIMAL 100 - 129 mg/dl NEAR OR ABOVE OPTIMAL 130 - 159 mg/dl BORDERLINE HIGH 160 - 189 mg/dl HIGH >190 mg/dl VERY HIGH Performed By: #### T 7, TSH, CMP, LIPID #### [facility] Laboratory [address] [place] [address] Dr. Gonzalo Willis Triglyceride [Mass/Vol] 138 mg/dL Normal <=150 [facility] Comment on above: Performed By: #### T 7, TSH, CMP, LIPID #### [facility] Laboratory [address] [address] [address] Gonzalo Willis VLDL CALC 27.6 mg/dL Normal [facility] Comment on above: Performed By: #### T 7, TSH, CMP, LIPID #### [facility] Laboratory [address] [address] [address] Gonzalo Willis PROF 14(COMP METB)on 022 Albumin [Mass/Vol] 4.3 g/dL Normal 3.4-5.0 [facility] Comment on above: Performed By: #### T 7, TSH, CMP, LIPID #### [facility] Laboratory [address] [place] [address] Dr. Gonzalo Willis Albumin/Globulin [Mass ratio] 1.0 {ratio} Normal [facility] Comment on above: Performed By: #### T 7, TSH, CMP, LIPID #### [facility] Laboratory [address] [address] [address] Gonzalo Willis ALP [Catalytic activity/Vol] 86 U/L Normal 46-116 [facility] Comment on above: Performed By: #### T 7, TSH, CMP, LIPID #### [facility] Laboratory [address] [place] [address] Dr. Gonzalo Willis ALT [Catalytic activity/Vol] 20 U/L Normal 14-59 [facility] Comment on above: Performed By: #### T 7, TSH, CMP, LIPID #### [facility] Laboratory [address] [address] [address] Gonzalo Willis Anion gap [Moles/Vol] 11.2 mmol/L Normal [facility] Comment on above: Performed By: #### T 7, TSH, CMP, LIPID #### [facility] Laboratory [address] [place] [address] Dr. Gonzalo Willis AST [Catalytic activity/Vol] 9 U/L Critically low 15-37 [facility] Comment on above: Performed By: #### T 7, TSH, CMP, LIPID #### [facility] Laboratory [address] [address] [address] Gonzalo Willis Bilirubin [Mass/Vol] 0.6 mg/dL Normal 0.2-1.0 [facility] Comment on above: Performed By: #### T 7, TSH, CMP, LIPID #### [facility] Laboratory [address] [place] [address] Dr. Gonzalo Willis Calcium [Mass/Vol] 10.1 mg/dL Normal 8.5-10.1 [facility] Comment on above: Performed By: #### T 7, TSH, CMP, LIPID #### [facility] Laboratory [address] [address] [address] Gonzalo Willis Chloride [Moles/Vol] 98 mmol/L Normal 98-107 [facility] Comment on above: Performed By: #### T 7, TSH, CMP, LIPID #### [facility] Laboratory [address] [place] [address] Dr. Gonzalo Willis CO2 [Moles/Vol] 28.4 mmol/L Normal 21.0-32.0 [facility] Comment on above: Performed By: #### T 7, TSH, CMP, LIPID #### [facility] Laboratory [address] [place] [address] Dr. Gonzalo Willis Creatinine [Mass/Vol] 0.72 mg/dL Normal 0.55-1.02 [facility] Comment on above: Performed By: #### T 7, TSH, CMP, LIPID #### [facility] Laboratory [address] [place] [address] Dr. Gonzalo Willis EGFR-AF BELGIAN >60 Normal >=60 [facility] Comment on above: Performed By: #### T 7, TSH, CMP, LIPID #### [facility] Laboratory [address] [place] [address] Dr. Gonzalo Willis EGFR-NON AF BELGIAN >60 Normal >=60 [facility] Comment on above: Performed By: #### T 7, TSH, CMP, LIPID #### [facility] Laboratory [address] [address] [address] Gonzalo Willis Globulin (S) [Mass/Vol] 4.1 g/dL Normal [facility] Comment on above: Performed By: #### T 7, TSH, CMP, LIPID #### [facility] Laboratory [address] [place] [address] Dr. Gonzalo Willis Glucose [Mass/Vol] 164 mg/dL Critically high 74-106 [facility] Comment on above: Performed By: #### T 7, TSH, CMP, LIPID #### [facility] Laboratory [address] [place] [address] Dr. Gonzalo Willis Potassium [Moles/Vol] 4.6 mmol/L Normal 3.5-5.1 [facility] Comment on above: Performed By: #### T 7, TSH, CMP, LIPID #### [facility] Laboratory [address] [place] [address] Dr. Gonzalo Willis Protein [Mass/Vol] 8.4 g/dL Critically high 6.4-8.2 [facility] Comment on above: Performed By: #### T 7, TSH, CMP, LIPID #### [facility] Laboratory [address] [place] [address] Dr. Gonzalo Willis Sodium [Moles/Vol] 133 mmol/L Critically low 136-145 [facility] Comment on above: Performed By: #### T 7, TSH, CMP, LIPID #### [facility] Laboratory [address] [place] [address] Dr. Gonzalo Willis Urea nitrogen [Mass/Vol] 20.0 mg/dL Critically high 7.0-18.0 [facility] Comment on above: Performed By: #### T 7, TSH, CMP, LIPID #### [facility] Laboratory [address] [place] [address] Dr. Gonzalo Willis Urea nitrogen/Creatinine [Mass ratio] 27.8 mg/mg Normal [facility] Comment on above: Performed By: #### T 7, TSH, CMP, LIPID #### [facility] Laboratory [address] [place] [address] Dr. Gonzalo Willis TSHon 05-10-2022 TSH 0.872 uIU/mL Normal 0.358-3.740 [facility] Comment on above: Performed By: #### T 7, TSH, CMP, LIPID ####[facility] [address] [place] [id number]. Gonzalo Willis VITAMIN B12on 05-10-2022 Cobalamin (Vitamin B12) [Mass/Vol] 526.0 pg/mL Normal 193.0-986.0 [facility] Comment on above: Performed By: #### I REGINALD, VITAD, VITB12 ####[facility] [address]awrsx[address] [place] [address]Dr. Gonzalo Willis VITAMIN D 25 OHon 05-10-2022 VIT D 25-OH 67.4 ng/mL Normal [facility] Comment on above: Performed By: #### I REGINALD VITAD, VITB12 ####[facility] [address] [place] [address]Dr. [facility] VIT D RANGES SEE BELOW Normal [facility] Comment on above: Result Comment: <20 ng/mL Vit D deficient 20 - <30 ng/mL Vit D insufficient 30 - 100 ng/mL Vit D sufficient >100 ng/mL Potential Toxicity Performed By: #### I REGINALD, VITAD, VITB12 ####[facility] [address] [place] [address]Dr. Gonzalo Willis [facility] SARS-CoV-2 (COVID-19) RNA WALKER+probe Ql (Unsp spec) Not detected Normal NOT DETECTED [facility] Comment on above: Result Comment: When diagnostic [...] for this test is supported by the [place] of Health and Human Service's declaration that [...] longer be used). Performed By: #### C [facility] #### [facility] Laboratory [address] [place] [address] Dr. Gonzalo Willis Vital Signs Date Time Vital Sign Value Performing Clinician Facility 01-28-2024 12:01-0400 Diastolic blood pressure 70 mm[Hg] Papa Santiago MD Work Phone: [facility] 01-28-2024 12:01-0400 Heart rate 83 /min Papa Santiago MD Work Phone: [facility] 01-28-2024 12:01-0400 Systolic blood pressure 147 mm[Hg] Papa Santiago MD Work Phone: [facility] 01-16-2024 11:51-0400 Body height 165.1 cm Shanice Larsen MD Work Phone: [facility] 01-16-2024 11:51-0400 Body mass index (BMI) [Ratio] 28.62 kg/m2 Shanice Larsen MD Work Phone: [facility] 01-16-2024 11:51-0400 Body weight 78.02 kg Shanice Larsen MD Work Phone: [facility] 01-16-2024 11:51-0400 Diastolic blood pressure 69 mm[Hg] Shanice Larsen MD Work Phone: [facility] 01-16-2024 11:51-0400 Heart rate 88 /min Shanice Larsen MD Work Phone: [facility] 01-16-2024 11:51-0400 SaO2% (BldA) [Mass fraction] 98 % Shanice Larsen MD Work Phone: [facility] 01-16-2024 11:51-0400 Systolic blood pressure 110 mm[Hg] Shanice Larsen MD Work Phone: [facility] 10-10-2023 12:40-0400 Body height 160 cm Shanice Larsen MD Work Phone: [facility] 10-10-2023 12:40-0400 Body weight 77.11 kg Shanice Larsen MD Work Phone: [facility] 10-10-2023 12:40-0400 Diastolic blood pressure 73 mm[Hg] Shanice Larsen MD Work Phone: [facility] 10-10-2023 12:40-0400 Heart rate 90 /min Shanice Larsen MD Work Phone: [facility] 10-10-2023 12:40-0400 Respiratory rate 16 /min Shanice Larsen MD Work Phone: [facility] 10-10-2023 12:40-0400 SaO2% (BldA) [Mass fraction] 97 % Shanice Larsen MD Work Phone: [facility] 10-10-2023 12:40-0400 Systolic blood pressure 127 mm[Hg] Shanice Larsen MD Work Phone: [facility] 08-07-2023 10:40-0500 Body height 162 cm Anddillon Cruz DIRECTOR OF ONCOLOGY.[employer] Work Phone: [facility] 08-07-2023 10:40-0500 Body temperature 98.01 [degF] Andegoni Chikikis DIRECTOR OF ONCOLOGY.[employer] Work Phone: [facility] 08-07-2023 10:40-0500 Body weight 82.64 kg Andegoni Chikikis DIRECTOR OF ONCOLOGY.[employer] Work Phone: [facility] 08-07-2023 10:40-0500 Diastolic blood pressure 70 mm[Hg] Andegoni Chikikis DIRECTOR OF ONCOLOGY.[employer] Work Phone: [facility] 08-07-2023 10:40-0500 Heart rate 82 /min Andegoni Chikikis DIRECTOR OF ONCOLOGY.[employer]ESSIONAL Work Phone: [facility] 08-07-2023 10:40-0500 SaO2% (BldA) [Mass fraction] 97 % Anddillon Cruz DIRECTOR OF ONCOLOGY.[employer]ESSION[employer] Work Phone: [facility] 08-07-2023 10:40-0500 Systolic blood pressure 128 mm[Hg] Anddillon Cruz DIRECTOR OF ONCOLOGY.K[employer]ESSION[employer] Work Phone: [facility] 07-30-2023 16:30-0500 SaO2% (BldA) [Mass fraction] 98 % PAPA SANTIAGO [facility] Comment on above: Order Comment: Specimen Type: ARTERIAL B LOOD SPECIMENOrdering Facility: [facility] Address: [address] [place] [address] Performed By: #### A LLBG ####[facility] [id number] [address] STATES OF [facility] 07-30-2023 13:11-0500 SaO2% (BldA) [Mass fraction] 98 % PAPA SANTIAGO [facility] Comment on above: Order Comment: Specimen Type: ARTERIAL B LOOD SPECIMENOrdering Facility: [facility] Address: [address] [place] [address] Performed By: #### A LLBG ####[facility] [id number] [address] [place] 07-30-2023 10:56-0500 SaO2% (BldA) [Mass fraction] 96 % PAPA SANTIAGO [facility] Comment on above: Order Comment: Specimen Type: ARTERIAL B LOOD SPECIMENOrdering Facility: [facility] Address: [address] [place] [address] Performed By: #### A LLBG ####[facility] [id number] [place] [address] [place] 07-30-2023 08:10-0500 SaO2% (BldA) [Mass fraction] 97 % PAPA SANTIAGO [facility] Comment on above: Order Comment: Specimen Type: ARTERIAL B LOOD SPECIMENOrdering Facility: [facility] Address: [address] [place] [address] Performed By: #### A LLBG ####[facility] LABCLIA [id number] [place] [id number] [place] 07-30-2023 06:05-0500 SaO2% (BldA) [Mass fraction] 97 % PAPA SANTIAGO [facility] Comment on above: Order Comment: Specimen Type: ARTERIAL B LOOD SPECIMENOrdering Facility: [facility] Address: [address] [place] [address] Performed By: #### A LLBG ####[facility] [id number] [place] [id number] [place] 07-30-2023 03:36-0500 SaO2% (BldA) [Mass fraction] 98 % PAPA SANTIAGO [facility] Comment on above: Order Comment: Specimen Type: ARTERIAL B LOOD SPECIMENOrdering Facility: [facility] Address: [address] [place] [address] Performed By: #### A LLBG ####[facility] [id number] [place] [id number] [place] 07-30-2023 01:31-0500 SaO2% (BldA) [Mass fraction] 98 % PAPA SANTIAGO [facility] Comment on above: Order Comment: Specimen Type: ARTERIAL B LOOD SPECIMENOrdering Facility: [facility] Address: [address] [place] [address] Performed By: #### A LLBG ####[facility] [id number] [place] [id number] [place] 07-29-2023 23:17-0500 SaO2% (BldA) [Mass fraction] 98 % PAPA JACK [facility] Comment on above: Order Comment: Specimen Type: ARTERIAL B LOOD SPECIMENOrdering Facility: [facility] Address: [address] [place] [address] Performed By: #### A LLBG ####[facility] [id number] [place] [id number] [place] [facility] 07-29-2023 21:16-0500 SaO2% (BldA) [Mass fraction] 98 % PAPA SANTIAGO [facility] Comment on above: Order Comment: Specimen Type: ARTERIAL B LOOD SPECIMENOrdering Facility: [facility] Address: [address] [place] [address] Performed By: #### A LLBG ####[facility] [id number] [address] [place] 07-29-2023 19:19-0500 SaO2% (BldA) [Mass fraction] 99 % PAPA SANTIAGO [facility] Comment on above: Order Comment: Specimen Type: ARTERIAL B LOOD SPECIMENOrdering Facility: [facility] Address: [address] [place] [address] Performed By: #### A LLBG ####[facility] [facility] [id number] [address] [place] 07-29-2023 16:39-0500 SaO2% (BldA) [Mass fraction] 97 % PAPA SANTIAGO [facility] Comment on above: Order Comment: Specimen Type: ARTERIAL B LOOD SPECIMENOrdering Facility: [facility] Address: [address] [place] [address] Performed By: #### A LLBG ####[facility] [id number] [place] [id number] [place] 07-29-2023 14:51-0500 SaO2% (BldA) [Mass fraction] 99 % PAPA JACK [facility] Comment on above: Order Comment: Specimen Type: ARTERIAL B LOOD SPECIMENOrdering Facility: [facility] Address: [address] [place] [address] Performed By: #### A LLBG ####[facility] LABCLIA [id number] [place] [id number] [facility] [place] 07-29-2023 13:51-0500 SaO2% (BldA) [Mass fraction] 99 % PAPA JACK [facility] Comment on above: Order Comment: Specimen Type: ARTERIAL B LOOD SPECIMENOrdering Facility: [facility] Address: [address] [place] [address] Performed By: #### A LLMG ####[facility] LABIA [id number] [address] [place] 07-29-2023 13:19-0500 SaO2% (BldA) [Mass fraction] 99 % PAPA JACK [facility] Comment on above: Order Comment: Specimen Type: ARTERIAL B LOOD SPECIMENOrdering Facility: [facility] Address: [address] [place] [address] Performed By: #### A LLBG ####[facility] LABIA [id number] [address] [place] 07-29-2023 12:23-0500 SaO2% (BldA) [Mass fraction] 100 % PAPA JACK [facility] Comment on above: Order Comment: Specimen Type: ARTERIAL B LOOD SPECIMENOrdering Facility: [facility] Address: [address] [place] [address] Performed By: #### A LLBG ####[facility] LABIA [id number] [place] [id number] [place] 07-29-2023 11:28-0500 SaO2% (BldA) [Mass fraction] 100 % PAPA JACK [facility] Comment on above: Order Comment: Specimen Type: ARTERIAL B LOOD SPECIMENOrdering Facility: [facility] Address: [address] [place] [address] Performed By: #### A LLBG ####[facility] LABIA [id number] [place] [id number] [place] 07-29-2023 10:41-0500 SaO2% (BldA) [Mass fraction] 100 % PAPA SANTIAGO [facility] Comment on above: Order Comment: Specimen Type: ARTERIAL B LOOD SPECIMENOrdering Facility: [facility] Address: [address] [place], [place] [id number] Performed By: #### A LLBG ####[facility] LABIA [id number] [place] [id number] [place] 07-29-2023 09:58-0500 SaO2% (BldA) [Mass fraction] 98 % PAPA SANTIAGO [facility] Comment on above: Order Comment: Specimen Type: ARTERIAL B LOOD SPECIMENOrdering Facility: [facility] Address: [address] [place] [address] Performed By: #### A LLBG ####[facility] LABIA [id number] [place] [id number] [place] 07-29-2023 09:43-0500 SaO2% (BldA) [Mass fraction] 99 % PAPA SANTIAGO [facility] Comment on above: Order Comment: Specimen Type: ARTERIAL B LOOD SPECIMENOrdering Facility: [facility] Address: [address] [place] [address] Performed By: #### A LLBG ####[facility] LABIA [id number] [place] [id number] [place] 07-29-2023 07:09-0500 SaO2% (BldA) [Mass fraction] 99 % PAPA JACK [facility] Comment on above: Order Comment: Specimen Type: ARTERIAL B LOOD SPECIMENOrdering Facility: [facility] Address: [address] [place] [address] Performed By: #### A LLBG ####[facility] LABIA [id number] [place] [id number] [place] 05-28-2023 13:50-0500 Body height 165.1 cm Shanice Larsen MD Work Phone: [facility] 05-28-2023 13:50-0500 Body weight 78.93 kg Shanice Larsen MD Work Phone: [facility] 05-28-2023 13:50-0500 Diastolic blood pressure 59 mm[Hg] Shanice Larsen MD Work Phone: [facility] 05-28-2023 13:50-0500 Heart rate 82 /min Shanice Larsen MD Work Phone: [facility] 05-28-2023 13:50-0500 Respiratory rate 16 /min Shanice Larsen MD Work Phone: [facility] 05-28-2023 13:50-0500 SaO2% (BldA) [Mass fraction] 97 % Shanice Larsen MD Work Phone: [facility] 05-28-2023 13:50-0500 Systolic blood pressure 109 mm[Hg] Shanice Larsen MD Work Phone: [facility] 04-03-2023 09:16-0400 Diastolic blood pressure 116 mm[Hg] Shanice Larsen MD Work Phone: [facility] 04-03-2023 09:16-0400 Heart rate 101 /min Shanice Larsen MD Work Phone: [facility] 04-03-2023 09:16-0400 Systolic blood pressure 200 mm[Hg] Shanice Larsen MD Work Phone: [facility] 03-26-2023 17:15-0400 Diastolic blood pressure 64 mm[Hg] MD Nano Nguyen Work Phone: [facility] 03-26-2023 17:15-0400 Heart rate 69 /min MD Nano Nguyen Work Phone: [facility] 03-26-2023 17:15-0400 Respiratory rate 20 /min MD Nano Nguyen Work Phone: [facility] 03-26-2023 17:15-0400 SaO2% (BldA) [Mass fraction] 99 % MD Nano Nguyen Work Phone: [facility] 03-26-2023 17:15-0400 Systolic blood pressure 143 mm[Hg] MD Nano Nguyen Work Phone: [facility] 03-26-2023 13:02-0400 Body height 165.1 cm MD Nano Nguyen Work Phone: [facility] 03-26-2023 13:02-0400 Body temperature 97.7 [degF] MD Nano Nguyen Work Phone: [facility] 03-26-2023 13:02-0400 Body weight 84.5 kg MD Nano Nguyen Work Phone: [facility] 03-20-2023 13:00-0400 Body height 165.1 cm Patrizia Melendrez Other [employer] Other 03-20-2023 13:00-0400 Body mass index (BMI) [Ratio] 31.31 kg/m2 Patrizia Melendrez Other [employer] Other 03-20-2023 13:00-0400 Body weight 85.37 kg Patrizia Melendrez Other [employer] Other 03-20-2023 13:00-0400 Diastolic blood pressure 82 mm[Hg] Patrizia Melendrez Other [employer] Other 03-20-2023 13:00-0400 SaO2% (BldA) [Mass fraction] 94 % Patrizia Melendrez Other [employer] Other 03-20-2023 13:00-0400 Systolic blood pressure 124 mm[Hg] Patrizia Melendrez Other [facility] Other 07-19-2022 13:16-0500 Body height 165.1 cm Nano M Hoy Work Phone: [facility] DO Work Phone: 07-19-2022 13:16-0500 Body mass index (BMI) [Ratio] 31.95 kg/m2 Nano M Hoy Work Phone: [facility] DO Work Phone: 07-19-2022 13:16-0500 Body surface area Derived from formula 1.94 m2 Nano M Hoy Work Phone: [facility] DO Work Phone: 07-19-2022 13:16-0500 Body weight 87.09 kg Nano M Hoy Work Phone: [facility] DO Work Phone: 07-19-2022 13:16-0500 Diastolic blood pressure 64 mm[Hg] Nano M Hoy Work Phone: [facility] DO Work Phone: 07-19-2022 13:16-0500 Diastolic blood pressure 70 mm[Hg] Nano M Hoy Work Phone: [facility] DO Work Phone: 07-19-2022 13:16-0500 Heart rate 85 /min Nano M Hoy Work Phone: [facility] DO Work Phone: 07-19-2022 13:16-0500 Systolic blood pressure 110 mm[Hg] Nano M Hoy Work Phone: [facility] DO Work Phone: 07-19-2022 13:16-0500 Systolic blood pressure 100 mm[Hg] Nano Nguyen Work Phone: [facility] DO Work Phone: Encounters Encounter Date Encounter Type Care Provider Facility Start: 02-26-2024 End: 02-26-2024 ambulatory Christel De La Fuente Pulmonary Medicine Start: 02-25-2024 End: 02-25-2024 ambulatory Hilary Blackman RN Pulmonary Medicine Comment on above: CT RESULTS Start: 02-25-2024 End: 02-25-2024 E-mail encounter from caregiver Hilary Blackman RN Pulmonary Medicine Start: 02-25-2024 End: 02-25-2024 Telephone encounter Hilary Blackman RN Pulmonary Medicine Comment on above: Results Start: 02-18-2024 End: 02-18-2024 ambulatory NANO NGUYEN Facility:[facility] Start: 02-18-2024 End: 02-18-2024 Subsequent hospital visit by physician Ct 2 Main Qb (I-Stat) Radiology Comment on above: 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) [I25.118] Start: 02-04-2024 ambulatory Haydee Fried [facility] Start: 02-04-2024 Patient encounter procedure Haydee Fried [facility] Start: 01-28-2024 End: 01-28-2024 Office outpatient visit 25 minutes Papa Santiago MD Work Phone: Vascular Surg Dept Comment on above: 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) (Primary Dx) Start: 01-28-2024 End: 01-28-2024 ambulatory PAPA SANTIAGO Facility:[facility] Start: 01-16-2024 End: 01-16-2024 Patient encounter procedure Shanice Larsen MD Work Phone: Cardiology Comment on above: 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) (Primary Dx); PAD (peripheral artery disease) (HCC); Primary hypertension; Hyperlipidemia, unspecified hyperlipidemia type Start: 01-16-2024 End: 01-16-2024 ambulatory NANO NGUYEN Facility:[facility] Start: 01-03-2024 Orders Only Papa Santiago MD Work Phone: Vascular Surg Dept Comment on above: 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, bilateral legs (HCC) (Primary Dx) Start: 01-01-2024 Telephone encounter Nano Nguyen MD Work Phone: [address] [place] [address] Comment on above: Appointment Start: 12-30-2023 End: 12-30-2023 ambulatory TRIPP HUTSON Not Available Start: 10-30-2023 ambulatory Anna Perea RN [facility] Start: 10-30-2023 Patient encounter procedure Anna Perea RN [facility] Start: 10-25-2023 Telephone encounter Shanice Hallamn MD Work Phone: Cardiology Start: 10-24-2023 ambulatory Christel De La Fuente Pulmonar y Medicine Start: 10-21-2023 End: 10-22-2023 ambulatory Gloria Callahan MD Work Phone: Pulmonary Medicine Comment on above: Lung nodule (Primary Dx) Start: 10-21-2023 End: 10-21-2023 Telemedicine consultation with patient Gloria Callahan MD Work Phone: Pulmonary Medicine Start: 10-18-2023 Telephone encounter Shanta comer RN Work Phone: [facility] Home Delivery Comment on above: Insurance Authorizat ion ([employer] 140MG/ML auto-injectors/) Start: 10-17-2023 Telephone encounter Shanice Hallman MD Work Phone: Cardiology Comment on above: Received Outside Med ical Records ([facility] REPORT) Received Outside Med ical Records ([facility]) Start: 10-10-2023 End: 10-10-2023 Patient encounter procedure Shanice Larsen MD Work Phone: Cardiology Comment on above: 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) (Primary Dx); SOB (shortness of breath); PAD (peripheral artery disease) (HCC); TIA (transient ischemic attack) Start: 10-10-2023 End: 10-10-2023 ambulatory PAMELA DILLE Facility:[facility] Start: 10-10-2023 End: 10-10-2023 Subsequent hospital visit by physician Ct 2 Main Qb (I-Stat) Radiology Comment on above: Lung nodule [R91.1] Start: 09-27-2023 ambulatory [facility] Start: 09-26-2023 End: 09-28-2023 Emergency department patient visit [facility] Start: 09-23-2023 Telephone encounter Papa Perez i, MD Work Phone: Vascular Surg Dept Comment on above: dental clearance Start: 09-12-2023 E-mail encounter jose titus caregiver Daljit Pina DIRECTOR OF ONCOLOGY.KINDERGARTEN PARAPROFESSIONAL Work Phone: [facility] Start: 09-12-2023 Follow-up encounter Daljit Reit er DIRECTOR OF ONCOLOGY.KINDERGARTEN PARAPROFESSIONAL Work Phone: Radiology Comment on above: Actionable Findings Follow-up Start: 09-03-2023 ambulatory Anna Perea RN [facility] Comment on above: Coronary artery dise ase involving caddo coronary artery of caddo heart without angina pectoris (Primary Dx) Start: 08-23-2023 Telephone encounter Nano Nguyen MD Work Phone: NOC Comment on above: Appointment Start: 08-13-2023 E-mail encounter jose titus caregiver Daljit Pina DIRECTOR OF ONCOLOGY.KINDERGARTEN PARAPROFESSIONAL Work Phone: [facility] Start: 08-13-2023 Follow-up encounter Daljit Reit er DIRECTOR OF ONCOLOGY.KINDERGARTEN PARAPROFESSIONAL Work Phone: Radiology Comment on above: Actionable Findings Follow-up Start: 08-08-2023 Telephone encounter Moriah Muniz [facility] Comment on above: Follow Up Phone Call (RC follow up call all clear. /) Start: 08-07-2023 End: 08-07-2023 Patient encounter procedure Dania Cruz DIRECTOR OF ONCOLOGY.KINDERGARTEN PARAPROFESSIONAL Work Phone: Cardiothoracic Comment on above: S/P CABG (coronary a rtery bypass graft) (Primary Dx); PVD (peripheral vascular disease) (HCC) Start: 08-07-2023 End: 08-07-2023 ambulatory WILLEM SUAREZ Facility:[facility] Start: 08-07-2023 End: 08-07-2023 Subsequent hospital visit by physician Xr Chest Main J1 Work Phone: Radiology Comment on above: Surgery follow-up [Z 09] Start: 08-06-2023 Telephone encounter Kevin BURGOS Comment on above: Follow Up Phone Call (RC f/u all clear/) Start: 08-01-2023 Follow-up encounter Willem marrufo MD Work Phone: Cardiothoracic Comment on above: Surgery follow-up (P rimary Dx) Start: 07-29-2023 End: 08-02-2023 [facility] Start: 07-22-2023 Patient encounter status Alma Rosa Suarez MD Work Phone: [facility] Start: 07-17-2023 End: 07-17-2023 ambulatory WILLEM BANNERDO Facility:[facility] Start: 07-17-2023 End: 07-17-2023 ambulatory WILLEMCHRISTIANACAREGINGER Facility:[facility] Start: 07-08-2023 End: 07-08-2023 ambulatory NANO NGUYEN Facility:[facility] Start: 07-02-2023 End: 07-02-2023 ambulatory FRANTZ PEREZ Facility:[facility] Start: 07-02-2023 End: 07-02-2023 [facility] Start: 07-02-2023 End: 07-02-2023 ambulatory PAPA SANTIAGO Facility:[facility] Start: 06-14-2023 End: 06-14-2023 [facility] Start: 05-30-2023 Telephone encounter Willem marrufo MD Work Phone: Cardiothoracic Comment on above: Insurance Authorizat ion Referral Information ; New Patient Evaluation Start: 05-28-2023 End: 05-28-2023 ambulatory SHANICE LARSEN Facility:[facility] Start: 05-28-2023 End: 05-28-2023 Patient encounter procedure Shanice Larsen MD Work Phone: Cardiology Comment on above: SOB (shortness of br eath) (Primary Dx); 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; PAD (peripheral artery disease) (HCC) Start: 05-28-2023 End: 05-28-2023 ambulatory SHANICE LARSEN Facility:[facility] Start: 05-13-2023 End: 05-13-2023 ambulatory Shanice Larsen MD Work Phone: Cardiology Comment on above: Coronary artery dise ase involving caddo coronary artery of cadd[place] heart without angina pectoris (Primary Dx); Preop cardiovascular exam; Morbid obesity (HCC) Start: 05-13-2023 End: 05-13-2023 Patient encounter status Shanice Larsen MD Work Phone: [facility] Work Phone: Start: 05-13-2023 End: 05-13-2023 Telemedicine consultation with patient Shanice Larsen MD Work Phone: [facility] Start: 04-26-2023 Orders Only Shanice Hinton i, MD Work Phone: Cardiology Comment on above: Coronary artery dise ase involving caddo coronary artery without angina pectoris, unspecified whether caddo or transplanted heart (Primary Dx) Start: 04-08-2023 Orders Only Pamela Laws APRN.CNP Work Phone: Cardiology Comment on above: Abnormal stress test (Primary Dx) Start: 04-03-2023 End: 04-03-2023 [facility] Start: 04-03-2023 End: 04-03-2023 Patient encounter procedure Shanice Larsen MD Work Phone: Cardiology Comment on above: Abnormal stress test (Primary Dx) Start: 04-03-2023 End: 04-03-2023 ambulatory SHANICE LARSEN Facility:[facility] Start: 03-26-2023 End: 03-26-2023 ambulatory Patrizia Parvin Facility:[facility] Start: 03-26-2023 Telephone encounter Patrizia Cobb Cardiology Start: 03-26-2023 End: 03-26-2023 Admission to same day surgery center MD Nano Nguyen Work Phone: [facility] Work Phone: Start: 03-26-2023 End: 03-26-2023 ambulatory MD Nano Nguyen Work Phone: [facility] Work Phone: Start: 03-25-2023 End: 03-25-2023 ambulatory Patrizia Melendrez Other [employer] Other Start: 03-25-2023 Telephone encounter Patrizia HOFF G Cardiology Start: 03-20-2023 End: 03-20-2023 ambulatory Patrizia Melendrez Facility:[facility] Start: 03-20-2023 End: 03-20-2023 Patient encounter procedure MD Nano Nguyen Work Phone: [facility] Work Phone: Start: 03-20-2023 End: 03-20-2023 ambulatory MD Nano Nguyen Work Phone: [facility] Work Phone: Start: 03-20-2023 Office outpatient ne w 45 minutes Patrizia Melendrez [facility] Start: 03-13-2023 Message Nano Nguyen Work Phone: [facility] DO Work Phone: Start: 11-28-2022 Message Nano Nguyen Work Phone: [facility] 600 DO Work Phone: Start: 10-01-2022 End: 10-02-[address] NANO NGUYEN . Facility:[facility] Start: 09-04-2022 End: 09-05-[address] NANO NGUYEN . Facility:[facility] Start: 08-22-2022 End: 08-23-[address] STEPAN SAM Facility:[facility] Start: 07-19-2022 Office consultation new/estab patient 60 min Nano Nguyen Work Phone: [facility] DO Work Phone: Start: 07-19-2022 ambulatory Nano Nguyen Fac ility: Start: 07-02-2022 End: 07-03-[address] NANO NGUYEN . Facility:[facility] Start: 05-30-2022 End: 05-31-[address] NANO NGUYEN . Facility:[facility] Start: 05-29-2022 Encounter for genera l adult medical examination without abnormal findings ANNA IRBY [facility] Start: 05-28-2022 End: 05-29-[address] NANO NGUYEN . Facility:[facility] Start: 05-25-2022 End: 05-26-[address] NANO NGUYEN . Facility:[facility] Start: 05-24-2022 End: 05-25-2022 ambulatory ANNA IRBY Facility:[facility] Start: 05-22-2022 End: 05-23-[address] NANO NGUYEN . Facility:[facility] Start: 05-11-2022 End: 05-12-[address] NANO NGUYEN . Facility:[facility] Start: 05-10-2022 End: 05-11-[address] NISA EDWARDS Facility:[facility] Start: 05-10-2022 End: 05-11-2022 Encounter for general adult medical examination without abnormal findings DR NISA EDWARDS Facility:[facility] Start: 05-10-2022 End: 05-11-[address] NANO NGUYEN . Facility:[facility] Start: 01-29-2022 End: 01-29-2022 ambulatory JOE HUBBARD Facility:[facility] Nano Nguyen Work Phone: [facility] DO Work Phone: Procedures Date Procedure Procedure Detail Performing Clinician Start: 08-07-2023 Radiologic exam ches t 2 views Willem Suarez MD Work Phone: Start: 07-17-2023 Antibody screen PAPA THOMASON Comment on above: Order Comment: Speci men Type: BLOOD SPECIMENOrdering Facility: [facility] Address: [address] [place] [address] Performed By: #### T [id number] ####CC MAIN BLOOD BANKCLIA [id number] [facility] [id number] [place] Start: 05-28-2023 Echocardiography PAPA WOODARD Start: 05-28-2023 Lipid 1996 panel - S radha or Plasma Shanice Larsen MD Work Phone: Start: 03-26-2023 CL LHC & COR Angio (Right) MD Nano Nguyen Work Phone: Colonoscopy Nano Nguyen Work Phone: Decompression of med jayjay nerve Nano Nguyen Work Phone: History of coronary artery bypass grafting S/P CABG (coronary artery bypass graft) Anddillon Cruz DIRECTOR OF ONCOLOGY.KINDERGARTEN PARAPROFESSIONAL Work Phone: Ligation of fallopian tube D ouglas Sara Nguyen Work Phone: Release of trigger finger Do ugcarlos enrique Nguyen Work Phone: Tonsillectomy and adenoidectomy Nano Nguyen Work Phone: Plan of Treatment Date Care Activity Detail Author Start: 05-28-2028 Lipid 1996 panel - S radha or Plasma Lipid Screening [facility] Start: 05-28-2026 Diabetes Screening Diabetes Screenin g [facility] Start: 04-03-2026 Diabetes Screening Diabetes Screenin g [facility] Start: 02-17-2025 Screening for malign ant neoplasm of lung Lung Cancer Screening [facility] Start: 01-15-2025 BP Controlled (<130/80) BP Controlle d (<130/80) [facility] Start: 10-09-2024 BP Controlled (<130/80) BP Controlle d (<130/80) [facility] Start: 10-09-2024 Screening for malign ant neoplasm of lung Lung Cancer Screening [facility] Start: 08-07-2024 BP Controlled (<130/80) BP Controlle d (<130/80) [facility] Start: 07-02-2024 BP Controlled (<130/80) BP Controlle d (<130/80) [facility] Start: 05-28-2024 Hepatitis B surface antibody level LDL Cholesterol [facility] Start: 04-28-2024 End: 04-28-2024 Patient encounter procedure 04/28/2024 10:30 AM EST Office Visit Vascular Surg Dept [address] [place] [address] Papa Santiago MD [address] [place] [address] 3 month follow-up no testing Vascular Surg Dept Comment on above: 3 month follow-up no testing Start: 04-16-2024 End: 04-16-2024 Patient encounter procedure Radiology Comment on above: Lung nodule Lung nodule/6 MONTH FU/Staff Message Start: 04-07-2024 End: 04-07-2024 ambulatory 04/07/2024 8:30 AM EDT [facility] [address] [place] [address] Shanice Larsen MD [address] [place] [address] dx: Coronary artery disease of cadd[place] artery of [place] heart with stable angina pectoris Cardiology Comment on above: dx: Coronary artery disease of [place] artery of [place] heart with stable angina pectoris Start: 02-23-2024 Covid-19 Vaccine ( season) Covid-19 Vaccine () [facility] Start: 02-23-2024 Influenza vaccination Influenza Vacc ine (#1) [facility] Start: 02-18-2024 End: 02-18-2024 Patient encounter procedure 02/18/2024 2:30 PM EDT Appointment Radiology [address] [address] Coronary artery disease of c[place] artery of [place] heart with stable angina pect... Radiology Comment on above: 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[place] heart with stable angina pect... 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, bilateral legs f/u Start: 01-16-2024 End: 04-16-2024 Lipid 1996 panel - Serum or Plasma LIPID PANEL BASIC Lab Routine Coronary artery disease of c[place] artery of [place] heart with stable angina pectoris (HCC) PAD (peripheral artery disease) ([facility]) Primary hypertension Hyperlipidemia, unspecified hyperlipidemia type Expected: 01/16/2024, Expires: 04/16/2024 [facility] Work Phone: Comment on above: Expected: 01/16/2024 , Expires: 04/16/2024 Start: 01-16-2024 End: 01-16-2024 Patient encounter procedure 01/16/2024 11:15 AM EDT Office Visit Cardiology [address] [place] [address] Shanice Larsen MD [address] [place] [address] Coronary artery disease of cadd[place] artery of [place] heart with stable angina pect... Cardiology Comment on above: 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caddo heart with stable angina pect... Start: 01-16-2024 End: 01-16-2024 ambulatory 01/16/2024 10:45 AM EDT Results Only Cardiology [address] [place] [address] Coronary artery disease of caddo artery of caddo heart with stable angina pect... Cardiology Comment on above: 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[place]add[place] heart with stable angina pect... Start: 01-15-2024 Hemoglobin A1c measurement HbA1C [facility] Start: 10-21-2023 End: 10-21-2023 Follow-up encounter 10/21/2023 3:30 PM EDT [facility] [address] [place] [address] Gloria Callahan MD [address] [place] [address] 3 Month Follow up Pulmonary Medicine Comment on above: 3 Month Follow up Start: 08-01-2023 End: 10-31-2023 CBC panel - Blood by Automated count CBC Lab Routine Surgery follow-up Expected: 08/01/2023, Expires: 10/31/2023 [facility] Work Phone: Comment on above: Expected: 08/01/2023 , Expires: 10/31/2023 Start: 08-01-2023 End: 10-31-2023 Comprehensive metabolic 2000 panel - Serum or Plasma COMP METABOLIC PANEL Lab Routine Surgery follow-up Expected: 08/01/2023, Expires: 10/31/2023 [facility] Work Phone: Comment on above: Expected: 08/01/2023 , Expires: 10/31/2023 Start: 06-24-2023 Advance Directive Discussion Advance Directive Discussion [facility] Start: 03-26-2023 End: 03-26-2023 [facility] Start: 02-22-2023 Covid-19 Vaccine ( season) Covid-19 Vaccine ( season) [facility] Start: 02-22-2023 Influenza vaccination Influenza Vacc ine (#1) [facility] Start: 2023 Advance Directive Discussion Advance Directive Discussion [facility] Start: 2023 Bone Density Screening Bone Density Screening [facility] Start: 2023 Screening for osteoporosis Bone Density Screening [facility] Start: 06-24-2022 Depression Assessment Depression Ass essment [facility] Start: 2018 RSV Vaccine (1 - 1-d ose 60+ series) RSV Vaccine (1 - 1-dose 60+ series) [facility] Start: 01-24-2008 Influenza vaccination Lung Cancer Sc reening [facility] Start: 01-24-2008 Screening for malign ant neoplasm of lung Lung Cancer Screening [facility] Start: 01-24-2008 Shingrix Vaccine (1 of 2) Hernandez grix Vaccine (1 of 2) [facility] Start: 2003 Cologuard (FIT-DNA) Cologuard (FIT-D NA) [facility] Start: 2003 Colonoscopy Colonoscopy [facility] Start: 2003 Colorectal Cancer Screening Colorectal Cancer Screening [facility] Start: [address] [facility] Start: 2003 Fecal Occult Blood Fecal Occult Bloo d [facility] Start: 2003 Lipid 1996 panel - S radha or Plasma Lipid Screening [facility] Start: 2003 Screening for malign ant neoplasm of colon [facility] Start: 2003 SIGMOIDOSCOPY SIGMOIDOSCOPY [facility] Start: 1998 Mammography Mammogram Screening [facility] Start: 1998 Screening for malign ant neoplasm of breast Mammogram Screening [facility] Start: 1977 Urine microalbumin profile DTaP,Tdap,Td Vaccine (1 - Tdap) [facility] Start: 01-24-1976 Annual PCP Team [employer] Operator carl Disease Visit Annual PCP Team Chronic Disease Visit [facility] Start: 01-24-1976 BP Controlled (<130/80) BP Controlle d (<130/80) [facility] Start: 01-24-1976 Hepatitis C Screening Hepatitis C Sc reening [facility] Start: 01-24-1976 HIV Screening HIV Screening [facility] Start: 01-24-1968 Diabetic foot examination Diabetic F oot Exam [facility] Start: 01-24-1968 Glaucoma screening Dilated Retinal E xam [facility] Start: 01-24-1968 Hepatitis B screening Urine Al bumin:Creatinine Ratio [facility] Start: 01-24-1964 Pneumococcal Vaccine : 65+ (1 - PCV) Pneumococcal Vaccine: 65+ (1 - PCV) [facility] CARDIAC REHAB II OUT PT ([place], [place]) CARDIAC REHAB II OUTPT ([place], [place]) BIC Routine 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 Ordered: 09/03/2023 [facility] Work Phone: Comment on above: Ordered: 09/03/2023 CARDIAC REHAB II OUT PT ([place], [place]) CARDIAC REHAB II [place]PT ([place], [place]) BIC Routine Coronary artery disease of caddo artery of caddo heart with stable angina pectoris (HCC) SOB (shortness of breath) PAD (peripheral artery disease) (HCC) TIA (transient ischemic attack) Ordered: 10/10/2023 [facility] Work Phone: Comment on above: Ordered: 10/10/2023 CT Chest WO contrast CT CHEST WO IVCON Radiology Routine Lung nodule 10/10/2023 10:41 AM EDT [facility] Work Phone: End: 11-19-2024 CT Chest WO contrast CT CHEST WO IVCON Radiology Routine Lung nodule 1 Occurrences starting 10/21/2023 until 11/19/2024 [facility] Work Phone: Comment on above: 1 Occurrences starti ng 10/21/2023 until 11/19/2024 End: 02-14-2025 CT Chest WO contrast CT CHEST WO IVCON Radiology Routine Coronary artery disease of caddo artery of caddo heart with stable angina pectoris (HCC) PAD (peripheral artery disease) (HCC) Primary hypertension Hyperlipidemia, unspecified hyperlipidemia type 1 Occurrences starting 01/16/2024 until 02/14/2025 [facility] Comment on above: 1 Occurrences starti ng 01/16/2024 until 02/14/2025 CT Chest WO contrast CT CHEST WO IVCON Radiology Routine Coronary artery disease of caddo artery of c[place]o heart with stable angina pectoris (HCC) PAD (peripheral artery disease) (HCC) Primary hypertension Hyperlipidemia, unspecified hyperlipidemia type 02/18/2024 2:09 PM EDT [facility] Work Phone: End: 07-02-2024 Ct thorax w/o contrast material CT CHEST CARDIAC WO IVCON Radiology Routine 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) PAD (peripheral artery disease) (HCC) S/P insertion of iliac artery stent Current smoker Primary hypertension Coronary angioplasty status 1 Occurrences starting 06/03/2023 until 07/02/2024 [facility] Work Phone: Comment on above: 1 Occurrences starti ng 06/03/2023 until 07/02/2024 End: 04-08-2024 ECG COMPLETE ECG COMPLETE ECG Routine Abnormal stress test 1 Occurrences starting 04/08/2023 until 04/08/2024 [facility] Work Phone: Comment on above: 1 Occurrences starti ng 04/08/2023 until 04/08/2024 End: 08-01-2024 ECG COMPLETE ECG COMPLETE ECG Routine Surgery follow-up 1 Occurrences starting 08/01/2023 until 08/01/2024 [facility] Work Phone: Comment on above: 1 Occurrences starti ng 08/01/2023 until 08/01/2024 End: 10-09-2024 ECG COMPLETE ECG COMPLETE ECG Routine Coronary artery disease of caddo artery of caddo heart with stable angina pectoris (HCC) SOB (shortness of breath) PAD (peripheral artery disease) ([facility]) TIA (transient ischemic attack) 1 Occurrences starting 10/10/2023 until 10/09/2024 [facility] Work Phone: Comment on above: 1 Occurrences starti ng 10/10/2023 until 10/09/2024 End: 01-15-2025 ECG COMPLETE ECG COMPLETE ECG Routine Coronary artery disease of caddo artery of cadd[place] heart with stable angina pectoris (HCC) PAD (peripheral artery disease) ([facility]) Primary hypertension Hyperlipidemia, unspecified hyperlipidemia type 1 Occurrences starting 01/16/2024 until 01/15/2025 [facility] Comment on above: 1 Occurrences starti ng 01/16/2024 until 01/15/2025 End: 04-03-2024 Echocardiography ECHO Cardiology Routine Abnormal stress test 1 Occurrences starting 04/03/2023 until 04/03/2024 [facility] Work Phone: Comment on above: 1 Occurrences starti ng 04/03/2023 until 04/03/2024 End: 07-02-2024 LUNG DIFFUSION CAPACITY ([facility]CO) LUNG DIFFUSION CAPACITY ([facility]) PFT Routine 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) PAD (peripheral artery disease) ([facility]) S/P insertion of iliac artery stent Current smoker Primary hypertension Coronary angioplasty status 1 Occurrences starting 06/03/2023 until 07/02/2024 [facility] Work Phone: Comment on above: 1 Occurrences starti ng 06/03/2023 until 07/02/2024 End: 07-02-2024 SPIROMETRY BASELINE ONLY SPIROMETRY BASELINE ONLY PFT Routine 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) PAD (peripheral artery disease) (HCC) S/P insertion of iliac artery stent Current smoker Primary hypertension Coronary angioplasty status 1 Occurrences starting 06/03/2023 until 07/02/2024 [facility] Work Phone: Comment on above: 1 Occurrences starti ng 06/03/2023 until 07/02/2024 End: 06-03-2024 US CAROTID ARTERIES [facility] Vascular Lab Routine 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) PAD (peripheral artery disease) ([facility]) S/P insertion of iliac artery stent Current smoker Primary hypertension Coronary angioplasty status 1 Occurrences starting 06/03/2023 until 06/03/2024 [facility] Work Phone: Comment on above: 1 Occurrences starti ng 06/03/2023 until 06/03/2024 End: 06-03-2024 US LEG VEIN MAP [facility] US LEG VEIN MAP [facility] Vascular Lab Routine Coronary artery disease involving caddo coronary artery of caddo heart with angina pectoris ([facility]) PAD (peripheral artery disease) ([facility]) S/P insertion of iliac artery stent Current smoker Primary hypertension Coronary angioplasty status 1 Occurrences starting 06/03/2023 until 06/03/2024 [facility] Work Phone: Comment on above: 1 Occurrences starti ng 06/03/2023 until 06/03/2024 End: 01-02-2025 US Lower extremity artery - bilateral PVR LEG [facility] Vascular Lab Routine 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, bilateral legs ([facility]) 1 Occurrences starting 01/03/2024 until 01/02/2025 [facility] Work Phone: Comment on above: 1 Occurrences starti ng 01/03/2024 until 01/02/2025 End: 06-03-2024 US MAMMARY ARTERY [facility] US MAMMARY ARTERY [facility] Vascular Lab Routine 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) PAD (peripheral artery disease) ([facility]) S/P insertion of iliac artery stent Current smoker Primary hypertension Coronary angioplasty status 1 Occurrences starting 06/03/2023 until 06/03/2024 [facility] Work Phone: Comment on above: 1 Occurrences starti ng 06/03/2023 until 06/03/2024 End: 06-03-2024 US RADIAL ARTERY MAP [facility] US RADIAL ARTERY MAP [facility] Vascular Lab Routine 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) PAD (peripheral artery disease) ([facility]) S/P insertion of iliac artery stent Current smoker Primary hypertension Coronary angioplasty status 1 Occurrences starting 06/03/2023 until 06/03/2024 [facility] Work Phone: Comment on above: 1 Occurrences starti ng 06/03/2023 until 06/03/2024 End: 08-30-2024 XR Chest 2 Views XR CHEST 2V FRONTAL/LAT Radiology Routine Surgery follow-up 1 Occurrences starting 08/01/2023 until 08/30/2024 [facility] Work Phone: Comment on above: 1 Occurrences starti ng 08/01/2023 until 08/30/2024 [facility] Immunizations Immunization Date Immunization Notes Care Provider [facility] 05-29-2023 influenza virus vacc ine, unspecified formulation Nano Nguyen MD Work Phone: [facility] 04-10-2022 influenza, injectabl e, quadrivalent, contains preservative Nano Nguyen Work Phone: [facility] 250 DO Work Phone: 04-10-2022 influenza virus vacc ine, unspecified formulation Shanice Larsen MD Work Phone: [facility] 05-24-2021 [place] COVID-19 Vac cine 0.5 ML Intramuscular Suspension Nano Nguyen Work Phone: [facility] 11-11-2020 [place] COVID-19 Vac cine 0.5 ML Intramuscular Suspension Nano Nguyen Work Phone: [facility] 08-13-2020 zoster vaccine recombinant Nano Nguyen Work Phone: [facility] 250 DO Work Phone: 06-11-2020 zoster vaccine recombinant Nano Nguyen Work Phone: -[facility] 250 DO Work Phone: Payers Date Payer Category Payer Unknown [id number] 2023 Medicaid MEDICAID [facility] MEDICAID [id number] 2023-Present [phone] [address] [place] [address] Medicaid [id number] 2023 Private Health Insurance [id number] 2023 Self-pay 2023 Medicare [id number] 2023 Medicare [id number] 1959 Unknown [id number] 1958 Unknown [id number] 2.16.840.1.738232.3.579.2. 356 1958 Unknown [id number] 2.16.840.1.415679.3.579.2. 593 1958 Unknown [id number] 2.16.840.1.281220.3.579.2. 593 1958 Unknown [id number] 2.16.840.1.165701.3.579.2. 593 1958 Unknown [id number] 2.16.840.1.026331.3.579.2. 593 1958 Unknown [id number] 2.16.840.1.528364.3.579.2. 593 1958 Unknown [id number] 2.16.840.1.032097.3.579.2. 593 1958 Unknown [id number] 2.16.840.1.686908.3.579.2. 593 1958 Unknown [id number] 2.16.840.1.733373.3.579.2. 593 1958 Unknown [id number] 2.16.840.1.283939.3.579.2. 593 1958 Unknown [id number] 2.16.840.1.087899.3.579.2. 593 1958 Unknown [id number] 2.16.840.1.750362.3.579.2. 593 1958 Unknown [id number] 2.16.840.1.091447.3.579.2. 593 1958 Unknown [id number] 2.16.840.1.584031.3.579.2. 593 1958 Unknown [id number] 2.16.840.1.343561.3.579.2. 1286 1958 Unknown [id number] 2.16.840.1.032689.3.579.2. 1286 1958 Unknown [id number] 2.16.840.1.612175.3.579.2. 1286 1958 Unknown [id number] 2.16.840.1.519115.3.579.2. 1286 1958 Unknown [id number] 2.16.840.1.042273.3.579.2. 1259 Private Health Insurance [id number] Unknown [facility] Unknown [id number] 2.16840.1.576178.3.579.2. 531 Unknown [id number] 2.16840.1.616439.3.579.2. 531 Social History Date Type Detail Facility Start: 04-03-2023 End: 01-28-2024 Social alcohol use Social alcohol use -[facility] [address] DO Work Phone: Comment on above: gummies, and pot; Start: 03-20-2023 End: 03-26-2023 Tobacco smoking status NHIS Smoker (finding) [facility] Start: 1960 Sex Assigned At Female F [facility] Start: 04-03-2023 End: 01-28-2024 Sex Assigned At [facility] [employer] Other Start: 04-03-2023 Tobacco smoking status NHIS Smokes tobacco daily [facility] History of tobacco use Cigarette Smoker [facility] Start: 04-03-2023 Tobacco use and exposure Smokeless tobacco non-user [facility] Start: 04-03-2023 End: 01-28-2024 Alcohol intake Current drinker of alcohol (finding) [facility] National Score (1-100), lower number is lower risk 91 [facility] Start: 1960 Sex Assigned At Not on file C [facility] Medical Equipment Procedure Code Equipment Code Equipment Original Text Equipment Identifier Dates Magna Thk1.65mm P tfe 4x.5in Cardiovascular Sterile - [id number] Start: 07-29-2023 Goals Date Patient Goal Desired Activity /State Personal health goal Personal health goal Clinical Notes 05-10-2022 to 02-26-2024 Christel De La Fuente - 02/26/2024 10:09 AM EDTTelephone Encounter - Hilary Blackman RN - 02/25/2024 6:02 PM EDTTelephone Encounter - Hilary Blackman RN - 02/25/2024 6:02 PM EDT Note Date & Type Note Facility 02-26-2024 History of Presen t illness Narrative Follow Up Diagnosis: Lung Nodule Recommendation: CT Scan Follow up Date: 02/15/2025 Follow-Up Scheduled: No Pulmonary Follow-Up Type: Lung Nodule Surveillance Enrolled in Lung Nodule program: Yes Lung Nodule Program Location: [facility] documented in this encounter [facility] 02-26-2024 Note [facility] 02-25-2024 Telephone encounter Note 02/25/[address] Eric carter. Hilary Blackman RN [facility] 02-25-2024 Miscellaneous Notes 02/25/[address] Eric carter. Hilary Blackman RN [facility] documented in this encounter [facility] 02-25-2024 Telephone encounter Note 02/25/24: Dr. Callahan requests patient be called with results of Ct Chest done 02/18/24: CT chest reviewed. Rt lung nodule opacity unchanged since 05/2023. Recommend continued monitoring -repeat CT imaging in 1 year. Called patient & LVM and sent MyC. Hilary Blackman RN [facility] 02-25-2024 Miscellaneous Notes 02/25/24: Dr. Callahan requests patient be called with results of Ct Chest done 02/18/24: CT chest reviewed. Rt lung nodule opacity unchanged since 05/2023. Recommend continued monitoring -repeat CT imaging in 1 year. Called patient & LVM and sent MyC. Hilary Blackman RN [facility] documented in this encounter [facility] 02-18-2024 History of Presen t illness Narrative Radiology Service Progress Note PATIENT NAME: Elizabeth Quezada DATE OF SERVICE: February 18, 2024 TIME: 2:05 PM PATIENT IDENTITY VERIFICATION COMPLETED USING TWO (2) [...] NO. PATIENT RELEVANT IMPLANT DATA REVIEWED: Yes PATIENT PRESENTS WITH AN IMPLANTABLE OR ATTACHED FINE ARTIST: No RADIOLOGY DEPARTMENT: CT; Exam(s) Completed: Chest PERIPHERAL IV DATA: Not applicable SIGNED BY: RT Mitch(R) February 18, 2024 2:05 PM documented in this encounter [facility] 02-18-2024 Note [facility] 02-04-2024 History of Presen t illness Narrative QOL Call Tracking Documentation Follow-Up Type: Phone Call Call Attempt: 1st Attempt Call Status: Complete documented in this encounter [facility] 02-04-2024 Note HNO ID: [id number] Author: ?, ?, ? Service: ? Author Type: ? Type: Progress Notes Filed: 02/04/2024 12:53 Note Text: QOL Call Tracking Documentation Follow-Up Type: Phone Call Call Attempt: 1st Attempt Call Status: Complete [facility] 01-28-2024 Note [facility] 01-28-2024 History of Presen t illness Narrative Images from the original note were not included. [facility] [place] DEPARTMENT OF VASCULAR SURGERY OUTPATIENT VISIT DATE January 28, 2024 OUTPATIENT VISIT TYPE ESTABLISHED SERVICE DATE: 01/28/2024 SERVICE TIME: 12:33 PM PRIMARY CARE PHYSICIAN: Nano Nguyen MD HISTORY OF PRESENT ILLNESS: Ms. Quezada is a 64 year old female who presents today for a vascular surgery follow-up visit for peripheral arterial disease patient states she is continuing to recover from her recent cardiac surgery. She states that the nocturnal pain in her legs that was causing her to wake up has resolved. She still reports pain in her calves with ambulation. She is otherwise healing quite well and is in much better spirits. PAST MEDICAL HISTORY 06/14/2023: Atherosclerosis of caddo arteries of extremity with intermittent claudication (HCC) 06/14/2023: CAD (coronary artery disease) No date: Carpal tunnel syndrome No date: Cataract No date: Coronary atherosclerosis No date: Dental disease No date: Depression 06/14/2023: Diabetes mellitus type 2 with peripheral artery disease (HCC) 06/14/2023: Essential hypertension No date: Family hx-malignancy No date: Former smoker No date: Fractures No date: Generalized anxiety disorder No date: Hematoma No date: HTN (hypertension) No date: Injury of back No date: Lung nodules No date: Obesity No date: PAD (peripheral artery disease) (HCC) No date: Visual impairment PAST SURGICAL HISTORY No date: LEFT HEART CATH,PERCUTANEOUS No date: LIGATE FALLOPIAN TUBE No date: REVISE MEDIAN N/CARPAL TUNNEL SURG; Right 11/28/2022: [facility] Comment: bilateral kissing iliac stents No date: WALANT PROCEDURE; Left SOCIAL HISTORY Social History Tobacco Use Smoking status: Every Day Packs/day: 1.00 Years: 40.00 Additional pack years: 0.00 Total pack years: 40.00 Types: Cigarettes Smokeless tobacco: Never Vaping Use Vaping Use: Never used Substance Use Topics Alcohol use: Yes Alcohol/week: 4.0 standard drinks of alcohol Types: 4 Standard drinks or equivalent per week Drug use: Yes Types: Marijuana MEDICATIONS: oxybutynin (DITROPAN) 5 mg tablet two times a day. trospium chloride (TROSPIUM ORAL) Take by mouth once daily. rivaroxaban (XARELTO) 2.5 mg tablet Take 1 tablet by mouth two times a day. lisinopril (ZESTRIL) 20 mg tablet Take 1 tablet by mouth once daily. TRULICITY 0.75 mg/0.5 mL pen injector Inject 0.75 mg subcutaneously one time a week. Patient should start on August 23, 2023. VENTOLIN HFA 90 mcg/actuation inhaler Inhale 2 Puffs as instructed every 6 hours as needed for wheezing/shortness of breath. aspirin 81 mg chewable tablet Take 1 tablet by mouth once daily. clopidogrel (PLAVIX) 75 mg tablet Take 1 tablet by mouth once daily. ezetimibe (ZETIA) 10 mg tablet Take 1 tablet by mouth once daily. venlafaxine ER (EFFEXOR XR) 75 mg 24 hr capsule Take 1 capsule by mouth once daily. metoprolol succinate ER (TOPROL XL) 50 mg 24 hr tablet Take 0.5 tablets by mouth two times a day. (Patient taking differently: Take 25 mg by mouth two times a day. States that she has been taking this medication 50 mg twice daily.) docusate sodium (COLACE) 100 mg capsule Take 1 capsule by mouth two times a day. JARDIANCE 10 mg tablet Take 1 tablet by mouth once daily. metFORMIN (GLUCOPHAGE) 1,000 mg tablet Take 1,000 mg by mouth two times a day. ALLERGIES: ALLERGIES Allergen Reactions Tetracycline Unknown, GI Upset Januvia [Sitaglipti* Unknown Miconazole Itching, Swelling Rosuvastatin Unknown Allerg Xt,D.Farinae* Itching Cat Hair Standardiz* Itching sneezing House Dust Itching PHYSICAL EXAM: BP 147/70 Pulse 83 General: Alert and oriented, No acute distress, Healthy appearance Integumentary: Normal color, no rash, no lesions. HEENT: EOM, pupils equal, round and reactive. Cardiovascular: Normal S1 & S2, no rubs, murmurs or gallops. No JVD., Pulse regular. Lungs: Normal breath sounds, no wheezes or crackles. Abdomen: Soft, non-tender, no rigidity. Extremities: No deformity, no edema or tenderness, no joint swelling or clubbing. Neurological: Normal cognition and motor skills. Vascular: Femoral Pulse Right: Normal - Left: Normal Posterior Tibial Right: Dopplerable Only - Left: Dopplerable Only Dorsalis Pedal Right: Dopplerable Only - Left: Dopplerable Only Diagnostic tests reviewed for today's visit: Most recent imaging with PVRs shows moderate disease bilaterally IMPRESSION: Ms. Quezada is a 64 year old female with PAD and bilateral lower extremity claudication. 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 Follow-up in 3 months for reevaluation of her symptoms SIGNATURE: Papa Santiago MD PATIENT NAME: Elizabeth Quezada DATE: January 28, 2024 TIME: 12:33 PM documented in this encounter [facility] 01-16-2024 History of Presen t illness Narrative Images from the original note were not included. [facility] Department of Cardiovascular Medicine SECTION OF CLINICAL CARDIOLOGY OUTPATIENT VISIT DATE January 16, 2024 OUTPATIENT VISIT TYPE ESTABLISHED PRIMARY CARE PHYSICIAN: Nano Nguyen [address] [place] [address] CHIEF COMPLAINT: Cv management HISTORY OF PRESENT ILLNESS: Ms. Quezada is a 63 year old female who presents today for a cardiovascular medicine follow-up visit. She has a history of severe PAD, CAD s/p CABG x4 (GURROLA->LAD, rSVG->OM1, rSVG->RCA->PDA) on 07/29/[address] Rajan, COPD, Type II diabetes. Last seen 3 months ago. Since then She took repatha for about 2.5 months, but then quit due to leg claudication being much worse . Continues to be fatigued after surgery. Has completed about 5 weeks of cardiac rehab, able to tend to her garden now. Difficult for her to walk, due to leg pain, little circulation. She denies abdominal distention, chest pain, shortness of breath, orthopnea, cough, edema, palpitations, PND, lightheadedness or syncope. PAST CARDIAC HISTORY: SEE HPI PAST MEDICAL HISTORY Diagnosis Date Atherosclerosis of [place] arteries of extremity with intermittent claudication (HCC) 06/14/2023 CAD (coronary artery disease) 06/14/2023 Carpal tunnel syndrome Cataract Coronary atherosclerosis Dental disease Depression Diabetes mellitus type 2 with peripheral artery disease (HCC) 06/14/2023 Essential hypertension 06/14/2023 Family hx-malignancy Former smoker Fractures Generalized anxiety disorder Hematoma HTN (hypertension) Injury of back Lung nodules Obesity PAD (peripheral artery disease) (HCC) Visual impairment PAST SURGICAL HISTORY Procedure Laterality Date LEFT HEART CATH,PERCUTANEOUS LIGATE FALLOPIAN TUBE REVISE MEDIAN N/CARPAL TUNNEL SURG Right SHX VASCULAR SURGERY 11/28/2022 bilateral kissing iliac stents WALANT PROCEDURE Left SOCIAL HISTORY Social History Tobacco Use Smoking [...] Heart Attack Father Hyperlipidemia Father Diabetes Father Aneurysm No Family History ALLERGIES: ALLERGIES Allergen Reactions Tetracycline Unknown, GI Upset Januvia [Sitaglipti* Unknown Miconazole Itching, Swelling Rosuvastatin Unknown Allerg Xt,D.Farinae* Itching Cat Hair Standardiz* Itching sneezing House Dust Itching MEDICATIONS: lisinopril (ZESTRIL) 20 mg tablet Take 1 tablet by mouth once daily. TRULICITY 0.75 mg/0.5 mL pen injector Inject 0.75 mg subcutaneously one time a week. Patient should start on August 23, 2023. VENTOLIN HFA 90 mcg/actuation inhaler Inhale 2 Puffs as instructed every 6 hours as needed for wheezing/shortness of breath. aspirin 81 mg chewable tablet Take 1 tablet by mouth once daily. clopidogrel (PLAVIX) 75 mg tablet Take 1 tablet by mouth once daily. ezetimibe (ZETIA) 10 mg tablet Take 1 tablet by mouth once daily. venlafaxine ER (EFFEXOR XR) 75 mg 24 hr capsule Take 1 capsule by mouth once daily. metoprolol succinate ER (TOPROL XL) 50 mg 24 hr tablet Take 0.5 tablets by mouth two times a day. (Patient taking differently: Take 25 mg by mouth two times a day. States that she has been taking this medication 50 mg twice daily.) docusate sodium (COLACE) 100 mg capsule Take 1 capsule by mouth two times a day. JARDIANCE 10 mg tablet Take 1 tablet by mouth once daily. metFORMIN (GLUCOPHAGE) 1,000 mg tablet Take 1,000 mg by mouth two times a day. REVIEW OF SYSTEMS: POSITIVES IN BOLD GENERAL: Negative for: Weight loss or gain, [...] Frequent urination, Frequent thirst PHYSICAL EXAMINATION: BP 110/69 (BP Site: Left Arm, BP Position: Sitting, BP Cuff Size: Regular Adult) Pulse 88 Ht 165.1 cm (5' 5 ) Wt 78 kg (172 lb) SpO2 98% BMI 28.62 kg/m General: Well appearing, in no acute [...] no heaves, no rub and no murmur. Click when she coughs Abdomen: Soft, nontender, bowel sounds normal, no palpable organomegaly, no bruits. Extremities: No peripheral edema . Grade 2/4 distal pulses bilaterally. Neuro: Oriented to person, place and time, alert, cooperative, gait coordinated. CARDIOVASCULAR MEDICINE TESTING: ECG January 16, 2024 Diagnosis: NORMAL SINUS RHYTHM POSSIBLE LEFT ATRIAL ENLARGEMENT CTA IMPRESSION: VASCULAR FINDINGS: 1. Diffuse atherosclerotic disease of the aorta from arch to the bifurcation with moderate stenosis involving the distal infrarenal abdominal aorta. 2. Bilateral common iliac artery endovascular stents are patent without compromise. There is focal stenosis up to 50% in the left common iliac artery distal to the endovascular stent. 3. Occlusion of bilateral superficial femoral arteries with reconstitution of popliteal arteries. Bilateral severe atherosclerotic disease of the distal branches particularly anterior tibial and peroneal arteries. 4. Severe stenosis of the proximal left renal artery. 5. There is atherosclerotic disease involving bilateral subclavian arteries with 50% stenosis at the origin of the left subclavian artery. 6. Diseased two vessel run-off on right calf and one vessel run-off on left calf as described above. 7. Coronary artery calcifications. NONVASCULAR FINDINGS: 1. Stable 1.1 cm heterogenous predominantly solid nodule in right upper lobe. While this may relate to inflammatory process, possibility of neoplastic disease cannot be entirely excluded and recommend consultation in lung nodule clinic. Area of groundglass changes in right upper lobe. 2. Multiple thyroid nodules as described above. 3. Small enhancing lesion in the segment 7 of the liver, cannot be well evaluated in the limited images. If further evaluation is deemed clinically necessary, MRI of the liver may be obtained as mentioned in prior report as well. 4. 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 Echo OSH 09/26/23 I have personally reviewed the Electrocardiogram. LABS Last 4 BP Last 4 Encounter BP Readings: Date: BP: 10/10/2023 127/73 08/07/2023 128/70 07/11/2023 126/61 07/02/2023 128/70 Creatinine Date Value Ref Range Status 08/07/2023 0.90 0.58 - 0.96 mg/dL Final 08/02/2023 0.55 (L) 0.58 - 0.96 mg/dL Final 08/01/2023 0.62 0.58 - 0.96 mg/dL Final 07/31/2023 0.66 0.58 - 0.96 mg/dL Final IMPRESSION: Ms. Quezada is a 63 year old female withsevere peripheral artery disease s/p iliac stenting (rest claudication and foot ulcers), multivessel coronary artery disease (severe LAD disease, subtotaled circ and occluded distal PDA which fills from collaterals), current smoker, COPD and type II diabetic who presents today for cardiovascular medicine follow up. Recently s/p CABG x4 07/29/[address] Suarez. She is off repatha due to ?increased claudication , on Zetia alone. She can not tolerate statins (crestor AND lipitor). Could consider bempedoic acid. If she were to pursue vascular surgery, there is no contraindication from a cardiac perspective at this time. PLAN AND RECOMMENDATIONS: Repeat Cholesterol in 1 month Restart Xarelto 2.5 mg BD -contact us with any bleeding CT chest - ensure complete union of sternum Follow up in 6 months I personally interviewed, confirmed and edited the above information if obtained by others. CONTACT INFORMATION: Shanice Larsen MD January 16, 2024 [address] [place] [address] Payton Attestation: By signing my name below, I, Aidan Snell, attest that this documentation has been prepared under the direction and in the presence of Shanice Larsen MD. Electronically Signed:payton Leos, January 16, 2024 8:24 AM Provider Attestation: I, Shanice Larsen MD, personally performed the services described in this documentation. All medical record entries made by the payton were at my direction and in my presence. I have reviewed the chart and discharge instructions (if applicable) and agree that the record reflects my personal performance and is accurate and complete. Shanice Larsen MD January 17, 2024 12:17 PM documented in this encounter [facility] 01-16-2024 Note [facility] 01-01-2024 Telephone encounter Note Reason for call: Ms Quezada called and she would like to schedule an appointment with DR Jack Neves and cell number [phone] Diagnosis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, bilateral legs Kind Regards Dunia [facility] 01-01-2024 Miscellaneous Notes Reason for call: Ms Quezada called and she would like to schedule an appointment with DR Jack Neves and cell number [phone] Diagnosis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, bilateral legs Kind Regards Dunia documented in this encounter [facility] 10-30-2023 Note [facility] 10-30-2023 History of Presen t illness Narrative QOL Call Tracking Documentation Follow-Up Type: Phone Call Call Attempt: 1st Attempt Call Status: Patient will complete in MyChart documented in this encounter [facility] 10-30-2023 Telephone encounter Note Attempted to call patient, no answer. Left voicemail asking patient to check mychart as I will send there. Mary Franks RN [facility] 10-30-2023 Miscellaneous Notes Attempted to call patient, no answer. Left voicemail asking patient to check mychart as I will send there. Mary Franks RN Per dr larsen, yes can be on both. Suzie does not see a reason to separate but can separate days of the week if want. Can take motrin intermittently but not regular doses. October 25, 2023 Patient Contact Number: [phone] (home) Patient last seen within the last year: Yes Date of last office visit: 10.10.23 Reason For Call: Medication Issue/Question: Pt called asking if she should be on both Zetia and TRULCITY - ? If so should she wait a certain amount of time between injections (Also wanted to clarify if it was ok to take motrin 800 ) Physician: Shanice Larsen MD Patient was informed that non-urgent calls may be returned within the next three business days. Yes Lizzeth Kong documented in this encounter [facility] 10-29-2023 Telephone encounter Note Per dr larsen, yes can be on both. Suzie does not see a reason to separate but can separate days of the week if want. Can take motrin intermittently but not regular doses. [facility] 10-25-2023 Telephone encounter Note October 25, 2023 Patient Contact Number: [phone] (home) Patient last seen within the last year: Yes Date of last office visit: 10.10.23 Reason For Call: Medication Issue/Question: Pt called asking if she should be on both Zetia and TRULCITY - ? If so should she wait a certain amount of time between injections (Also wanted to clarify if it was ok to take motrin 800 ) Physician: Shanice Larsen MD Patient was informed that non-urgent calls may be returned within the next three business days. Yes Lizzeth Kong [facility] 10-24-2023 Note [facility] 10-24-2023 History of Presen t illness Narrative Follow Up Diagnosis: Lung Nodule Recommendation: CT Scan Follow up Date: 04/16/2024 Follow-Up Scheduled: Yes Pulmonary Follow-Up Type: Lung Nodule Surveillance Enrolled in Lung Nodule program: Yes Lung Nodule Program Location: [facility] documented in this encounter [facility] 10-21-2023 Evaluation note Diagnosis Lung nodule- Primary Solitary pulmonary nodule * Assessment & Plan Note - Gloria Callahan MD - 10/21/2023 4:07 PM EDTAssociated Problem(s): Lung nodule Irregular streak like opacity measuring 15 x 6 mm in the posterior segment of the right upper lobe.Findings initially seen on CT scan in 05/2023 while patient was undergoing workup for CABG. Findings appear stable thus far on repeat imaging after 4 months. Given patient's significant tobacco history, continued imaging follow-up in advised to rule out indolent neoplastic process. Plan: -repeat CT chest in 6 months -continue to monitor respiratory symptoms in the mean time -encourage continued efforts with smoking cessation documented in this encounter [facility] History of Present illness Narrative* Gloria Callahan MD - 10/21/2023 3:52 PM EDT Images from the original note were not included. [facility] INCIDENTAL LUNG NODULE PROGRAM ([facility] Follow-Up) Assessment / Plan 63 year old female Active smoker (>30 pack-years) with a past medical history significant for HTN, DM II, CAD s/p CABG 07/2023, PAD s/p bilateral RACHELLE stenting (Schwartz 03/2023), renal artery stenosis, TIA who is being seen as a follow up visit for evaluation of a lung nodule(s). Lung nodule Irregular streak like opacity measuring 15 x 6 mm in the posterior segment of the right upper lobe.Findings initially seen on CT scan in 05/2023 while patient was undergoing workup for CABG. Findings appear stable thus far on repeat imaging after 4 months. Given patient's significant tobacco history, continued imaging follow-up in advised to rule out indolent neoplastic process. Plan: -repeat CT chest in 6 months -continue to monitor respiratory symptoms in the mean time -encourage continued efforts with smoking cessation Gloria Callahan MD Follow Up Diagnosis: Lung Nodule Recommendation: CT Scan Follow up Date: 04/10/2024 Follow-Up Scheduled: No Pulmonary Follow-Up Type: Lung Nodule Surveillance Lung Nodule Program Location: [facility] Medical Decision Making: Problems: Low: Stable chronic illness Data: Unique test result(s) reviewed: 1 Unique test(s) ordered: 1 Independent interpretation of test from other physician/QHCP Risk: Low: Low risk from testing/treatment Medical Decision Making Level: 3 - Low DISTANCE HEALTH VISIT NOTE I have communicated my name and active licensure. The patient's identity and physical location wereverified at the time of this visit. Either the patient or their legal district representative has been informed of the risks and benefits of -- and alternatives to -- treatment through a remote evaluation andconsents to proceed with the evaluation remotely. This is a virtual visit using Audio Only Visit. It required patient-provider interaction for the medical decision making as documented below. History Elizabeth Quezada is a 63 year old female Active smoker (>30 pack-years) with a past medical history significant for HTN, DM II, CAD s/p CABG 07/2023, PAD s/p bilateral RACHELLE stenting (Schwartz 03/2023), renal artery stenosis, TIA who is being seen as a follow up visit for evaluation of a lung nodule(s). Since our last meeting patient underwent 4v CABG with Dr. Suarez on 07/29/2023. She was discharged from hospital without incident but she had a TIA earlier this month with trouble writing and gait disturbance. She presented to the ED for evaluation. She was kept in the hospital for 24 hour observation. She had CT scan and MRI of the brain which did not show any lesion. Her handwriting had improvedbut she notes some residual dragging in her right leg. In terms of pulmonary symptoms. She denies any new respiratory symptoms. Unfortunately, she startedsmoking again after her surgery. Lung Nodule(s) Characteristics Date of initial imaging study: 06/14/2023 Date of most recent imaging study: 10/10/2023 Size of most concerning nodule: 11mm average diameter (15 x 6 mm) Density of most concerning nodule: Solid Border of most concerning nodule: Irregular Location of most concerning nodule: Right upper lobe Evaluation to date has included Serial CT Scans covering 3-6 months. Has the nodule of concern remained stable? Stable Past Medical History PAST MEDICAL HISTORY Diagnosis Date Atherosclerosis of [place] arteries of extremity with intermittent claudication (HCC) 06/14/2023 CAD (coronary artery disease) 06/14/2023 Carpal tunnel syndrome Cataract Coronary atherosclerosis Dental disease Depression Diabetes mellitus type 2 with peripheral artery disease (HCC) 06/14/2023 Essential hypertension 06/14/2023 Family hx-malignancy Former smoker Fractures Generalized anxiety disorder Hematoma HTN (hypertension) Injury of back Lung nodules Obesity PAD (peripheral artery disease) (HCC) Visual impairment Past Surgical History PAST SURGICAL HISTORY Procedure Laterality Date LEFT HEART CATH,PERCUTANEOUS LIGATE FALLOPIAN TUBE REVISE MEDIAN N/CARPAL TUNNEL SURG Right SHX VASCULAR SURGERY 11/28/2022 bilateral kissing iliac stents WALANT PROCEDURE Left Medications lisinopril (ZESTRIL) 20 mg tablet Take 1 tablet by mouth once daily. evolocumab 140 mg/mL subcutaneous pen injector (SKY MobileMediaATHAdjugCLICK) Inject 140 mg subcutaneously every 2 weeks. TRULICITY 0.75 mg/0.5 mL pen injector Inject 0.75 mg subcutaneously one time a week. Patient shouldstart on August 23, 2023. VENTOLIN HFA 90 mcg/actuation inhaler Inhale 2 Puffs as instructed every 6 hours as needed for wheezing/shortness of breath. aspirin 81 mg chewable tablet Take 1 tablet by mouth once daily. clopidogrel (PLAVIX) 75 mg tablet Take 1 tablet by mouth once daily. ezetimibe (ZETIA) 10 mg tablet Take 1 tablet by mouth once daily. venlafaxine ER (EFFEXOR XR) 75 mg 24 hr capsule Take 1 capsule by mouth once daily. acetaminophen (TYLENOL) 500 mg tablet Take 1-2 tablets by mouth every 6 hours as needed (for mild surgical pain). lidocaine (SALONPAS) 4 % patch Apply 1 Patch as directed once daily. APPLY TO: CHEST - Remove patchafter 12 hours. metoprolol succinate ER (TOPROL XL) 50 mg 24 hr tablet Take 0.5 tablets by mouth two times a day. (Patient taking differently: Take 25 mg by mouth two times a day. States that she has been taking this medication 50 mg twice daily.) magnesium oxide (MAG-OX) 400 mg (241.3 mg magnesium) tablet Take 2 tablets by mouth once daily for 14 days. furosemide (LASIX) 40 mg tablet Take 1 tablet by mouth two times a day for 4 days, THEN 1 tablet once daily for 10 days. docusate sodium (COLACE) 100 mg capsule Take 1 capsule by mouth two times a day. calcium carbonate 500 mg calcium (1,250 mg) chewable tablet Take 500 mg by mouth once daily. (Patient not taking: Reported on 08/07/2023) JARDIANCE 10 mg tablet Take 1 tablet by mouth once daily. metFORMIN (GLUCOPHAGE) 1,000 mg tablet Take 1,000 mg by mouth two times a day. Allergies ALLERGIES Allergen Reactions Tetracycline Unknown, GI Upset Januvia [Sitaglipti* Unknown Rosuvastatin Unknown Allerg Xt,D.Farinae* Itching Cat Hair Standardiz* Itching sneezing House Dust Itching Family History FAMILY HISTORY Problem Relation Age of Onset Heart Attack Mother Hypertension Mother Hyperlipidemia Mother Kidney Disease Mother Heart Attack Father Hyperlipidemia Father Diabetes Father Aneurysm No Family History Social History Social History Tobacco Use Smoking status: Every Day Packs/day: 1.00 Years: 40.00 Additional pack years: 0.00 Total pack years: 40.00 Types: Cigarettes Smokeless tobacco: Never Vaping Use Vaping Use: Never used Substance Use Topics Alcohol use: Yes Alcohol/week: 4.0 standard drinks of alcohol Types: 4 Standard drinks or equivalent per week Drug use: Yes Types: Marijuana REVIEW OF SYSTEMS: As per HPI. The remainder of the ROS is negative. VIDEO EXAM: (if completed, performed via video enabled technology) No exam performed Diagnostic Data I have personally visualized, reviewed and analyzed the findings on pulmonary function testing and radiographs. Last CT/CTA Chest/[facility] End: 10/10/2023 10:41 AM (Final result) Narrative: * * *Final Report* * * DATE OF EXAM: Oct 10 2023 10:41AM [facility] [place] [place]ST [place] IVCON / PROCEDURE REASON: Lung nodule * * * * Physician Interpretation * * * * EXAMINATION: CHEST CT WITHOUT CONTRAST CLINICAL HISTORY: 63-year-old female with history of pulmonary nodule. Technique: Spiral CT acquisition of the chest from the thoracic inlet to the upper abdomen without contrast. MQ: [id number] CT Radiation dose: Integrated Dose-length product (DLP) for this visit = 241 mGy*cm CT Dose Reduction Employed: Automated exposure control (AEC) Comparison: Chest CT exams dated 07/02/2023 and 06/14/2023 RESULT: Limitations: None. Lines, tubes, and devices: None. Lung parenchyma and airways: There is a persistent linear and somewhat nodular density in the posterior right upper lobe along the major fissure, image 63 measuring 15 x 6 mm, unchanged since 06/14/2023. This opacity has more of a linear configuration on sagittal reformatted images (image 75 of series 5). Small (less than 5 mm) clustered nodules in the right upper lobe near the apex, image 29-38 are unchanged since 06/14/2023. Stable 2 mm posterior left upper lobe nodule, image 58 since 06/14/2023. No new or enlarging pulmonary nodule. There is mosaic attenuation lung parenchyma. Diffuse bronchial wall thickening is present bilaterally. No consolidation. No pulmonary edema. The central airways are patent without suspicious endobronchial lesion.. Pleural space: No pleural effusion, pleural thickening, or pneumothorax. Lower neck, lymph nodes, and mediastinum: A coarse calcification in the thyroid isthmus, image 12, is unchanged. No supraclavicular or axillary lymphadenopathy. No enlarged mediastinal or hilar lymph nodes. There is likely a tiny hiatal hernia. Heart, pericardium, and thoracic vessels: The patient has undergone interval median sternotomy for CABG since the prior chest CT dated 07/02/2023. There is mild stranding in the retrosternal fat which is new since the preoperative chest CT, likely postsurgical. No mediastinal fluid collection. Mild atherosclerosis is present within the thoracic aorta which is nondilated measuring 3.4 cm in the mid ascending segment. The main pulmonary artery is normal in caliber. Moderate to severe [place] coronary artery atherosclerotic calcifications are present, however, this exam is not optimized for coronary artery assessment. Heart size is normal. No pericardial effusion. Bones and soft tissues: The sternum as well as post by median sternotomy wires. There is stranding in the subcutaneous fat anterior to the sternum. No destructive lytic or blastic bone lesion. Multilevel endplate degenerative changes are present throughout the imaged spine. Upper abdomen: No abnormality identified within the imaged solid abdominal organs on this noncontrast exam. Localizer images: No additional findings. Impression: IMPRESSION: 1. Interval postsurgical changes of median sternotomy for CABG since the prior chest CT dated 07/02/2023. 2. Stable 15 x 6 mm linear and somewhat nodular density in the posterior right upper lobe adjacent to the major fissure since the chest CT dated 06/14/2023. This finding probably represents a region of atelectasis or scar rather than a true pulmonary nodule although continued follow-up with chest CT is recommended given somewhat nodular configuration. 3. Additional small (less than 5 mm) pulmonary nodules, most of which are clustered at the right lung apex, are unchanged since 06/14/2023, most commonly benign given small size. 4. No thoracic lymphadenopathy. 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 The inspired (FIVC) spirometry maneuver is less than the FVC maneuver. DLCO is hemoglobin corrected and obtained from [facility] lab on 05/28/2023. ATS/ERS acceptability and repeatability standards for DLCO met.//NF IMPRESSION: Spirometry is normal. The diffusing capacity corrected for hemoglobin is normal. Electronically Signed On 06-20-2023 0:29:16 EST by Stephanie Jain MD ID: [id number] Name: ELIZABETH QUEZADA Race: White Ht: 63.78 in Wt: 177.25 lbs Age: 63 Gender: Female : 1960 Dx: Shortness of breath Smoking Hx: Non-smoker Doctor: WILLEM SUAREZ Test Date: 06/14/2023 Site: Tech: Julio Smalls PRE-BRONCH POST-BRONCH Pre LLN Pred ULN %Pred Post %Pred %Chg SPIROMETRY FVC (L) 2.50 2.03 2.83 3.65 88 FEV1 (L) 1.76 1.58 2.23 2.85 78 FEV1/FVC 0.70 0.67 0.79 0.89 88 PEF L/s (L/sec) 5.20 4.24 5.94 7.64 87 FEF50 (L/sec) 1.64 1.59 3.19 4.80 51 FIF50 (L/sec) 2.82 FEF50/FIF50 0.58 90-100 FIVC (L) 2.34 UCH61-28 (L/sec) 1.08 0.99 2.04 3.49 53 Time (sec) 8.79 FET PEF (sec) 0.10 ADELFO (L) 0.11 Vol Extrap % (%) 4 LUNG DIFFUSION DLCOunc (ml/min/mmHg) 17.14 14.77 20.94 27.11 81 VA (L) 4.76 3.92 5.03 6.13 94 DLunc/VA (ml/min/mmHg/L) 3.60 3.05 4.37 5.69 82 DLCOcor (ml/min/mmHg) 16.14 14.77 20.94 27.11 77 DLcor/VA (ml/min/mmHg/L) 3.39 4.17 81 BHT (sec) 10.09 IVC (L) 2.43 Hgb (gm/dL) 15.60 12-18 Comments: The exhaled (FVC) spirometry maneuver meets ATS/ERS acceptability and repeatability standards. The inspired (FIVC) spirometry maneuver is less than the FVC maneuver. DLCO is hemoglobin corrected and obtained from [facility] lab on 05/28/2023. ATS/ERS acceptability and repeatability standards for DLCO met.//NF 6MWT: Julio Smalls, RANDA 07/02/2023 4:46 PM Signed RESPIRATORY THERAPY SIX MINUTE WALK TEST OXIMETRY REPORT Six Minute Walk Test for This Encounter Oxygen Device Liters FIO2 SpO2% HR Activity Feet Speed (MPH) Flag R/A 100 82 Resting R/A 99 92 Six Minute Walk 890 1.7 R/A 100 86 Recovery 1 minute post R/A 99 81 Recovery 2 minute post R/A 99 80 Recovery 3 minute post General Information Height Weight Retired 05/13/23 Smoking Status Pulse Oximetry Site Oximeter Pre Blood Pressure Post Blood Pressure Total Time Spent (min) 162 cm (5' 3.78 ) 81.3 kg (179 lb 3.7 oz) -- Forehead Masimo 120/64 170/72 30 _ Distance Walked (meters) Distance Walked (feet) Female Predicted Walk Distance (feet) Female Lower Limit of Normal (feet) Female % Predicted Total Duration Of The Stops (seconds) 271.27 890 1466.21 1010.21 60.7 -- _ Lowest SpO2 During 6 Minute Walk Pre-Saniya Dyspnea Rating Pre-Saniya Fatigue Rating Post Saniya Dyspnea Rating Post Saniya Fatigue Rating 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 . The patient required Room Air to complete the test. The distance the patient walked in six minutes is moderately reduced. This is the first time patient takes the six minute walk test. The patient perceived their dyspnea during the six minute walk test to be 3- Moderate on the modified Saniya scale. The patient perceived their fatigue during the six minute walk test to be 8 - on the modified Saniya scale. I have reviewed the findings and made appropriate revisions as needed. SIGNATURE: Andrea Porter MD PATIENT NAME: Elizabeth Quezada DATE: July 02, 2023 TIME: 5:04 PM Assessment / Plan To optimize physician communication via the electronic health record, the Assessment & Plan section has been placed at the beginning of this note. Gloria Callahan MD Pulmonary & Critical Care Medicine [facility] [place] October 21, 2023 3:55 PM documented in this encounterLouis Stokes Cleveland [facility]04-26-2024 Telephone encounter Note * Telephone Encounter - Shanta Shook RN - 10/18/2023 2:12 PM EDT Ambulatory Pharmacy Prior Authorization Note Provider Intervention Required?: No- Pharmacy completed on your behalf. Rx Plan: [facility]: Repatha SureClick 140MG/ML auto-injectors Cover My Meds Aguayo: [id number] Determination: Approved Prior Authorization/Case #: n/a Prior Authorization Expiration: 10/17/24 Time to PA Submission in CMM: 15 min Time to PA Determination in CMM: Same day Additional Information: PLEASE NOTE: Pt will need follow up office visit to review/document efficacy and tolerability of treatment before prior auth expiration. Please ensure a future follow up appt is scheduled with your patient. This will ensure no interruption in patient's ability to obtain medic ation refills. Prescriptions will now be processed through [facility] Delivery Pharm[facility] for determination of next steps. For questions relating to this submission, please contact [facility] at [phone] [facility] Work Phone: 1(156) 534-710004-26-2024 Miscellaneous Notes* Telephone Encounter - Shanta Shook RN - 10/18/2023 2:12 PM EDT Ambulatory Pharmacy Prior Authorization Note Provider Intervention Required?: No- Pharmacy completed on your behalf. Rx Plan: [facility]: Repatha SureClick 140MG/ML auto-injectors Cover My Meds [place]: [id number] Determination: Approved Prior Authorization/Case #: n/a Prior Authorization Expiration: 10/17/24 Time to PA Submission in CMM: 15 min Time to PA Determination in CMM: Same day Additional Information: PLEASE NOTE: Pt will need follow up office visit to review/document efficacy and tolerability of treatment before prior auth expiration. Please ensure a future follow up appt is scheduled with your patient. This will ensure no interruption in patient's ability to obtain medic ation refills. Prescriptions will now be processed through [facility] for determination of next steps. For questions relating to this submission, please contact [facility] at [phone] documented in this encounterLouis Stokes [facility]04-25-2024 Telephone encounter Note * Telephone Encounter - Lizzeth Kong - 10/17/2023 2:12 PM EDT ADMIN UPLOADED OUTSIDE CARDIAC IMAGES TO [facility] CTA HEAD/NECK CT ANGIO HEAD CT ANGIO NECK CA ECHO DOPPLER Lizzeth Kong October 17, 2023 2:16 PM [facility]04-25-2024 Miscellaneous Notes* Telephone Encounter - Lizzeth Kong - 10/17/2023 2:12 PM EDT ADMIN UPLOADED OUTSIDE CARDIAC IMAGES TO [facility] CTA HEAD/NECK CT ANGIO HEAD CT ANGIO NECK CA ECHO DOPPLER Lizzeth Kong October 17, 2023 2:16 PM documented in this encounterLouis Stokes [facility]04-25-2024 Telephone encounter Note * Telephone Encounter - Lizzeth Kong - 10/17/2023 1:36 PM EDT [facility] Lizzeth Kong October 17, 2023 1:37 PM [facility]04-25-2024 Miscellaneous Notes* Telephone Encounter - Lizzeth Kong - 10/17/2023 1:36 PM EDT AD[facility] Lizzeth Kong October 17, 2023 1:37 PM documented in this encounterLouis Stokes Cleveland [facility] Center04-18-2024 History of Present illness Narrative* Shanice Larsen MD - 10/10/2023 12:30 PM EDT Images from the original note were not included. [facility] [place] Arlette Goldstein Department of Cardiovascular Medicine SECTION OF CLINICAL CARDIOLOGY OUTPATIENT VISIT DATE October 10, 2023 OUTPATIENT VISIT TYPE ESTABLISHED PRIMARY CARE PHYSICIAN: Nano Nguyen [address] [place] [address] CHIEF COMPLAINT: CV management HISTORY OF PRESENT ILLNESS: Ms. Quezada is a 63 year old female who presents today for a cardiovascular medicine follow-up visit. She is S/P on 07/29/2023 Surgeon: Willem Suarez MD Operations : CABG x4 (GURROLA->LAD, rSVG->OM1, rSVG->RCA->PDA) Following surgery she states she suffered a TIA (manifested through poor handwriting, and dragging leg). No residual effects. She can only walk about 300 feet before she needs to stop mainly due to her vascular disease. She denies abdominal distention, chest pain, orthopnea, cough, edema, palpitations, PND, lightheadedness or syncope. PAST CARDIAC HISTORY: SEE HPI PAST MEDICAL HISTORY Diagnosis Date Atherosclerosis of [place] arteries of extremity with intermittent claudication (HCC) 06/14/2023 CAD (coronary artery disease) 06/14/2023 Carpal tunnel syndrome Cataract Coronary atherosclerosis Dental disease Depression Diabetes mellitus type 2 with peripheral artery disease (HCC) 06/14/2023 Essential hypertension 06/14/2023 Family hx-malignancy Former smoker Fractures Generalized anxiety disorder Hematoma HTN (hypertension) Injury of back Lung nodules Obesity PAD (peripheral artery disease) (HCC) Visual impairment PAST SURGICAL HISTORY Procedure Laterality Date LEFT HEART CATH,PERCUTANEOUS LIGATE FALLOPIAN TUBE REVISE MEDIAN N/CARPAL TUNNEL SURG Right SHX VASCULAR SURGERY 11/28/2022 bilateral kissing iliac stents WALANT PROCEDURE Left SOCIAL HISTORY Social History Tobacco Use Smoking [...] Heart Attack Father Hyperlipidemia Father Diabetes Father Aneurysm No Family History ALLERGIES: ALLERGIES Allergen Reactions Tetracycline Unknown, GI Upset Januvia [Sitaglipti* Unknown Rosuvastatin Unknown Allerg Vanda Moreno* Itching Cat Hair Standardiz* Itching sneezing House Dust Itching MEDICATIONS: TRULICITY 0.75 mg/0.5 mL pen injector Inject 0.75 mg subcutaneously one time a week. Patient shouldstart on August 23, 2023. VENTOLIN HFA 90 mcg/actuation inhaler Inhale 2 Puffs as instructed every 6 hours as needed for wheezing/shortness of breath. aspirin 81 mg chewable tablet Take 1 tablet by mouth once daily. clopidogrel (PLAVIX) 75 mg tablet Take 1 tablet by mouth once daily. ezetimibe (ZETIA) 10 mg tablet Take 1 tablet by mouth once daily. venlafaxine ER (EFFEXOR XR) 75 mg 24 hr capsule Take 1 capsule by mouth once daily. metoprolol succinate ER (TOPROL XL) 50 mg 24 hr tablet Take 0.5 tablets by mouth two times a day. (Patient taking differently: Take 25 mg by mouth two times a day. States that she has been taking this medication 50 mg twice daily.) docusate sodium (COLACE) 100 mg capsule Take 1 capsule by mouth two times a day. JARDIANCE 10 mg tablet Take 1 tablet by mouth once daily. metFORMIN (GLUCOPHAGE) 1,000 mg tablet Take 1,000 mg by mouth two times a day. nicotine (NICODERM CQ) 21 mg/24 hr Apply 1 Patch as directed once daily. acetaminophen (TYLENOL) 500 mg tablet Take 1-2 tablets by mouth every 6 hours as needed (for mild surgical pain). lidocaine (SALONPAS) 4 % patch Apply 1 Patch as directed once daily. APPLY TO: CHEST - Remove patchafter 12 hours. magnesium oxide (MAG-OX) 400 mg (241.3 mg magnesium) tablet Take 2 tablets by mouth once daily for 14 days. furosemide (LASIX) 40 mg tablet Take 1 tablet by mouth two times a day for 4 days, THEN 1 tablet once daily for 10 days. calcium carbonate 500 mg calcium (1,250 mg) chewable tablet Take 500 mg by mouth once daily. (Patient not taking: Reported on 08/07/2023) REVIEW OF SYSTEMS: POSITIVES IN BOLD GENERAL: Negative for: Weight loss or gain, [...] Negative for: Weakness, Paralysis, Numbness, Tingling, Tremor, Nervousness,Depressed mood, Memory loss SKIN: Negative for: Rashes, Itching HEMATOLOGICAL/LYMPHATIC: Negative for: Easy bruising , Easy bleeding ENDOCRINE: Negative for: Heat or cold intolerance, Excessive sweating, Frequent urination, Frequentthirst PHYSICAL EXAMINATION: BP 127/73 (BP Site: Right Arm, BP Position: Sitting, BP Cuff Size: Regular Adult) Pulse 90 Resp16 Ht 160 cm (5' 3 ) Wt 77.1 kg (170 lb) SpO2 97% BMI 30.11 kg/m General: Well appearing, in no acute distress. Skin: No clubbing, no cyanosis. Eyes: Extra ocular movements intact Oropharynx: Teeth in good repair. Neck: No jugular venous distention, no carotid bruits, carotids have a normal upstroke, no palpablethyromegaly. Lungs: Clear to auscultation bilaterally, no wheezing or rhonchi. Heart: Regular rhythm, PMI not displaced, S1, S2 normal, no S3, no S4, no heaves, no rub and no murmur. Abdomen: Soft, nontender, bowel sounds normal, no palpable organomegaly, no bruits. Extremities: No peripheral edema. Diminished LE pulses Neuro: Oriented to person, place and time, alert, cooperative, gait coordinated. CARDIOVASCULAR MEDICINE TESTING: Brain MRI 09/27/23 Abnormal signal and diffusion restriction involving the left thalamus and posterior limb of the internal capsule measuring 8mm consistent with acute to subacute lacunar infarction. ECG October 10, 2023 Diagnosis: NORMAL SINUS RHYTHM POSSIBLE LEFT ATRIAL ENLARGEMENT INFERIOR MYOCARDIAL INFARCTION , AGE UNDETERMINED LATERAL T WAVE ABNORMALITY I have personally reviewed the Electrocardiogram and brain MRI. LABS Latest Ref Rng 05/28/2023 Total Cholesterol, Nonfasting <200 mg/dL 220 (H) Triglycerides, Nonfasting <150 mg/dL 414 (H) HDL Cholesterol, Nonfasting >39 mg/dL 35 (L) LDL Cholesterol, Nonfasting -- Non HDL Cholesterol, Nonfasting <130 mg/dL 185 (H) VLDL Cholesterol, Nonfasting -- Total Chol/HDL Ratio, Nonfasting <5.10 mg/dL 6.29 (H) LDL/HDL Ratio, Nonfasting -- Last 4 BP Last 4 Encounter BP Readings: Date: BP: 08/07/2023 128/70 07/11/2023 126/61 07/02/2023 128/70 07/02/2023 128/76 Creatinine Date Value Ref Range Status 08/07/2023 0.90 0.58 - 0.96 mg/dL Final 08/02/2023 0.55 (L) 0.58 - 0.96 mg/dL Final 08/01/2023 0.62 0.58 - 0.96 mg/dL Final 07/31/2023 0.66 0.58 - 0.96 mg/dL Final IMPRESSION: Ms. Quezada is a 63 year old female with severe peripheral artery disease s/p iliac stenting (rest claudication and foot ulcers), multivessel coronary artery disease (severe LAD disease, subtotaled circ and occluded distal PDA which fills from collaterals), current smoker, COPD and type II diabetic who presents today for cardiovascular medicine follow up. Recently s/p CABG x4 07/29/[address] Suarez. Suffered TIA earlier this month, no residual effects. Cholesterol 220.She can not tolerate statins (crestor AND lipitor) Will try Repatha. . Goal LDL <50. She recently started smoking again and I emphasized the need to quit. She is on chantix. Her ECG today does not show any acute changes. PLAN AND RECOMMENDATIONS: She has Cardiac rehab scheduled for locally tomorrow Increase physical activity as tolerated. -she is going to schedule vascular surgery Follow up in 6 months I personally interviewed, confirmed and edited the above information if obtained by others. CONTACT INFORMATION: Shanice Larsen MD October 10, 2023 [address] [place] [address] Scribe Attestation: By signing my name below, I, Aidan Snell, attest that this documentation has been prepared under the direction and in the presence of Shanice Larsen MD. Electronically Signed:payton Leos, October 10, 2023 8:06 AM Provider Attestation: I, Shanice Larsen MD, personally performed the services described in this documentation. All medical record entries made by the payton were at my direction and in my presence. I have reviewed the chart and discharge instructions (if applicable) and agree that the record reflects my personal performance and is accurate and complete. Shanice Larsen MD October 11, 2023 6:00 PM documented in this encounterLouis Stokes [facility]04-18-2024 [facility] NoteMount [facility]el [facility]04-18-2024 History of Present illness Narrative* Yojana Liang RT(R) - 10/10/2023 10:36 AM EDT Radiology Service Progress Note PATIENT NAME: Elizabeth Quezada DATE OF SERVICE: October 10, 2023 TIME: 10:36 AM PATIENT IDENTITY VERIFICATION COMPLETED USING TWO (2) IDENTIFIERS: Name and Date of confirmedby patient verbally and Name and Date of confirmed by identification band. FALL SCREENING: Has the patient had 2 falls in the last year or 1 fall with injury or currently using an Ambulatory Assistive Device (Walker, Cane, Wheelchair, Crutches, etc.)? No PATIENT GENDER DATA: Female. status: : No status: NO. PATIENT RELEVANT IMPLANT DATA REVIEWED: Yes PATIENT PRESENTS WITH AN IMPLANTABLE OR ATTACHED FINE ARTIST: No RADIOLOGY DEPARTMENT: CT; Exam(s) Completed: Chest PERIPHERAL IV DATA: Not applicable SIGNED BY: RT Sepideh(Alyssa) October 10, 2023 10:36 AM documented in this encounterLouis Stokes [facility] Center04-01-2024 Miscellaneous Notes* Telephone Encounter - Anna Richmond - 09/23/2023 11:34 AM EDT Yeimy from [facility] - Dr. Luciano called and wanted to know how long should it be for the patient to be cleared after surgery for the patient to get her teeth cleaned. It's been 8 weeks and she thought it would be longer than that. Yeimy can be reached at [phone] documented in this encounterLouis Stokes [facility] Center03-12-2024 History of Present illness Narrative* Anna Perea RN - 09/03/2023 12:14 PM EDT QOL Call Tracking Documentation Follow-Up Type: Phone Call Call Attempt: 1st Attempt Call Status: Patient will complete in MyChart documented in this encounterLouis Stokes Cleveland [facility] Center03-12-2024 [facility]03-01-2024 Miscellaneous Notes* Telephone Encounter - Dot Stern - 08/23/2023 9:07 AM EST Reason for call: Pt called and she would like to reschedule her appt on 02 september to . Home and cell number: [phone] Diagnosis: HOSP FOLLOW UP-DISCUSS TIMING OF LOVE FEM ENDARTS NO TESTING NEEDED Kind RegardsDot documented in this encounterLouis Stokes Cleveland [facility]02-15-2024 Miscellaneous Notes* Telephone Encounter - Moriah Morris RN - 08/08/2023 3:22 PM EST We are calling to check on how you are doing since our last phone call. Are you having any medical concerns we can help you with today? -No new medical concerns today. Call Outcome: All Clear All clear and closing statement given. PD RN verified patients name and date of . Moriah Morris RN documented in this encounterLouis Stokes Cleveland [facility] Center02-14-2024 Instructions* Patient Instructions* Dania Cruz APRN.CNP - 08/07/2023 11:10 AM EST Follow up with PCP next week with repeat cbc and cmp to monitor trends. Follow up with maintenance apprentice in 4-6 weeks with consideration of repeat echo. No further refills unless specified by local providers. documented in this encounterLouis Stokes Cleveland [facility] Center02-14-2024 History of Present illness Narrative* Dania Cruz APRN.CNP - 08/07/2023 10:30 AM EST Images from the original note were not included. [facility] [place] Arlette Goldstein Department of Cardiovascular Medicine DEPARTMENT OF CARDIAC SURGERY OUTPATIENT VISIT DATE August 07, 2023 OUTPATIENT VISIT TYPE POSTOPERATIVE Elizabeth Quezada is a 63 year old female who presents who is here for post operative follow up HPI: S/P on 07/29/2023 [facility] Surgeon: Willem Suarez MD Operations : CABG x4 (GURROLA->LAD, rSVG->OM1, rSVG->RCA->PDA) Discharged on 08/02/2023 PAST MEDICAL HISTORY Diagnosis Date Atherosclerosis of [place] arteries of extremity with intermittent claudication (HCC) 06/14/2023 CAD (coronary artery disease) 06/14/2023 Carpal tunnel syndrome Cataract Coronary atherosclerosis Dental disease Depression Diabetes mellitus type 2 with peripheral artery disease (HCC) 06/14/2023 Essential hypertension 06/14/2023 Family hx-malignancy Former smoker Fractures Generalized anxiety disorder Hematoma HTN (hypertension) Injury of back Lung nodules Obesity PAD (peripheral artery disease) (HCC) Visual impairment PAST SURGICAL HISTORY Procedure Laterality Date LEFT HEART CATH,PERCUTANEOUS LIGATE FALLOPIAN TUBE REVISE MEDIAN N/CARPAL TUNNEL SURG Right SHX VASCULAR SURGERY 11/28/2022 bilateral kissing iliac stents WALANT PROCEDURE Left ALLERGIES Allergen Reactions Tetracycline Unknown, GI Upset Januvia [Sitaglipti* Unknown Rosuvastatin Unknown Allerg Xt,D.Farinae* Itching Cat Hair Standardiz* Itching sneezing House Dust Itching Current Outpatient Medications Medication Sig nicotine (NICODERM CQ) 21 mg/24 hr Apply 1 Patch as directed once daily. [START ON 08/23/2023] TRULICITY 0.75 mg/0.5 mL pen injector Inject 0.75 mg subcutaneously one time a week. Patient should start on August 23, 2023. VENTOLIN HFA 90 mcg/actuation inhaler Inhale 2 Puffs as instructed every 6 hours as needed for wheezing/shortness of breath. aspirin 81 mg chewable tablet Take 1 tablet by mouth once daily. clopidogrel (PLAVIX) 75 mg tablet Take 1 tablet by mouth once daily. ezetimibe (ZETIA) 10 mg tablet Take 1 tablet by mouth once daily. venlafaxine ER (EFFEXOR XR) 75 mg 24 hr capsule Take 1 capsule by mouth once daily. acetaminophen (TYLENOL) 500 mg tablet Take 1-2 tablets by mouth every 6 hours as needed (for mild surgical pain). lidocaine (SALONPAS) 4 % patch Apply 1 Patch as directed once daily. APPLY TO: CHEST - Remove patchafter 12 hours. metoprolol succinate ER (TOPROL XL) 50 mg 24 hr tablet Take 0.5 tablets by mouth two times a day. oxyCODONE IR (ROXICODONE) 5 mg immediate release tablet Take 1 tablet by mouth every 6 hours as needed (for moderate to severe surgical pain) for up to 7 days. magnesium oxide (MAG-OX) 400 mg (241.3 mg magnesium) tablet Take 2 tablets by mouth once daily for 14 days. potassium chloride ER (KLOR-CON) 20 mEq tablet Take 1 tablet by mouth two times a day for 4 days, THEN 1 tablet once daily for 10 days. furosemide (LASIX) 40 mg tablet Take 1 tablet by mouth two times a day for 4 days, THEN 1 tablet once daily for 10 days. docusate sodium (COLACE) 100 mg capsule Take 1 capsule by mouth two times a day. calcium carbonate 500 mg calcium (1,250 mg) chewable tablet Take 500 mg by mouth once daily. JARDIANCE 10 mg tablet Take 1 tablet by mouth once daily. metFORMIN (GLUCOPHAGE) 1,000 mg tablet Take 1,000 mg by mouth two times a day. No current facility-administered medications for this visit. Chief Complaints: fatigue and still swollen Discharge Post Operative Course: Pain scale :Yes incisional and back. Well managed on current regiment Appetite: improving Activity: Walking ad linden around the house. BG under 200 when checked Elimination: having loose stools , urination is normal Sleep: difficulty staying asleep Mood: normal Incisions/Wounds: healing Review of Systems: HEENT: Negative for fevers since discharge and chills Cardiac: Denies significant problems, chest pain, Arrhythmia, and positive for BLE edema Respiratory: notes some sob with exertion recovers with rest Musculoskeletal: No history of joint swelling, joint pain, or loss of range of motion. Neuro: Denies neurological complaints Physical Exam: BP 128/70 Pulse 82 Temp 36.7 C (98 F) (Oral) Ht 162 cm (5' 3.78 ) Wt 82.6 kg (182 lb 3.2 oz) SpO2 97% BMI 31.49 kg/m Appearance: well groomed, white female, in no acute distress Neck: No neck vein distention Cardiac: regular S1, S2, No murmur, No rub Lungs: Clear breath sounds bilaterally with decreased air entry at the bases bilaterally Abdomen: soft, non tender, Normal bowel sounds Extremities: Edema: bilateral 2+ Sternum: stable, no click Sternotomy site: healing, clean, dry and intact Wound: NA SV [place] sites: Location: Right LE, mid, distal, and ankle, healing, and clean, dry and intact with [place]. Edematous noted. Procedures: every other [place] removed from saphenous vein sites without difficulty. Sutures removed from chest tube sites without difficulty. [facility] to remove remaining stable IMPRESSION & PLAN: 1.S/P on 07/29/2023 [facility] Surgeon: Willem Suarez MD Operations : CABG x4 (GURROLA->LAD, rSVG->OM1, rSVG->RCA->PDA) Discharged on 08/02/2023 2. CAD - continue asa, bb, plavix and statin - h/o PVD with claudication EC08/07/2023 Diagnosis: NORMAL SINUS RHYTHM POSSIBLE LEFT ATRIAL ENLARGEMENT INFERIOR MYOCARDIAL INFARCTION POSSIBLY ACUTE ANTEROLATERAL T WAVE ABNORMALITY CONSIDER RIGHT VENTRICULAR INVOLVEMENT IN ACUTE INFERIOR INFARCT ABNORMAL ECG 3. Atelectasis/FVO - improving with trivial pleural effusions - weight: down 5lbs since discharge - continue diuretic may need refills - encouraged to continue deep breathing exercises and walking CXR: 08/07/2023 RESULT: Lines, tubes, and devices: None. Lungs and pleura: No consolidation. Linear opacities in the bilateral lung bases are suggestive of atelectasis. Improved small bilateral pleural effusions compared to the previous radiograph. No pneumothorax. Cardiomediastinal silhouette: Stable cardiomediastinal silhouette. Bones and soft tissues: Status post median sternotomy with normally aligned sternal wires. Degenerative changes in the thoracic spine. 4. HTN - stable - contineu to monitor LABS: Component Latest Ref Rng & Units 08/02/2023 08/07/2023 Alkaline Phosphatase 34 - 123 U/L 60 93 AST 13 - 35 U/L 19 14 ALT 7 - 38 U/L 14 21 Glucose 74 - 99 mg/dL 224 (H) 180 (H) BUN 7 - 21 mg/dL 13 19 Creatinine 0.58 - 0.96 mg/dL 0.55 (L) 0.90 Sodium 136 - 144 mmol/L 128 (L) 135 (L) Potassium 3.7 - 5.1 mmol/L 4.4 4.1 Component Latest Ref Rng & Units 08/02/2023 08/07/2023 WBC 3.70 - 11.00 k/uL 6.35 7.17 RBC 3.90 - 5.20 m/uL 2.91 (L) 3.36 (L) Hemoglobin 11.5 - 15.5 g/dL 9.1 (L) 10.4 (L) Hematocrit 36.0 - 46.0 % 26.9 (L) 32.4 (L) Platelet Count 150 - 400 k/uL 224 392 Summary: See above. F/u with VS outpatient with timing of bilateral femoral endarterectomies Follow up with PCP next week with repeat cbc and cmp to monitor trends Follow up with maintenance apprentice in 4-6 weeks. May need more diuresing Call CTS OPD with any issues, concerns or worsening surgical symptoms. Post op care and discharge orders reviewed with the patient- all questions were answered. Surgical sites healing without complication Discussed new medications, dosage, route of administration and side effects Reviewed walking program at home Reviewed diet guidelines for recovery from surgery Return to the clinic prn with signs or symptoms of infection, fevers, SOB, or pleural effusion SBE prophylaxis reviewed Discussed wound care Dania Cruz APRN.KINDERGARTEN PARAPROFESSIONAL documented in this encounterHenry Ville [address]-14-2024 NoteMount Carmel [facility] System02-14-2024 History of Present illness Narrative* Shannan Hernandez RT(R) - 08/07/2023 9:45 AM EST Radiology Service Progress Note PATIENT NAME: Elizabeth Quezada DATE OF SERVICE: August 07, 2023 TIME: 10:07 AM PATIENT IDENTITY VERIFICATION COMPLETED USING TWO (2) IDENTIFIERS: Name and Date of confirmedby patient verbally. FALL SCREENING: Has the patient had 2 falls in the last year or 1 fall with injury or currently using an Ambulatory Assistive Device (Walker, Cane, Wheelchair, Crutches, etc.)? No PATIENT GENDER DATA: Female. status: : No status: NO. PATIENT RELEVANT IMPLANT DATA REVIEWED: Not Applicable PATIENT PRESENTS WITH AN IMPLANTABLE OR ATTACHED FINE ARTIST: No RADIOLOGY DEPARTMENT: General X-ray: Exam(s) Completed: Chest X-Ray PERIPHERAL IV DATA: Not applicable SIGNED BY: RT Enrike(Alyssa) August 07, 2023 10:07 AM documented in this encounterLouis Stokes Cleveland [facility]02-14-2024 [facility]02-13-[facility]24 Miscellaneous Notes* Telephone Encounter - Kevin Reardon RN - 08/06/2023 1:30 PM EST 1. Have you noticed any increase in shortness of breath since you left the hospital? No 2. Have you noticed any increased swelling in your feet, ankles, or belly? Skip for vascular pts No 3. Have you gained more than 2-3 pounds since discharge? Skip for vascular & EP pts No 4. Have you noticed any change in your incision, wound, IV sites since you were discharged as we want you to be aware of any signs of infection (fevers, chills, redness, warmth, swelling, increased tenderness, discharge)? No 5. Are you having any increased pain since discharge? If yes: What type of pain and where? (pressure, sharp pain, dull pain, etc.) No 6. Have you had any unplanned trips to the emergency department or hospital since you were discharged? If yes - why? No 7. Did you fill all of the prescribed medications? If no, do you need help filling your prescription? (Figure out why they re not filled) Yes 8. Do you have any questions about your medications? No 9. Do you have a doctor s appointment scheduled or is someone working on getting you a follow-up appointment? Yes Additional Comments: Pt instructed to contact 24-hour nurse hotline for any questions or concerns. Pt verbalized understanding. PD nurse confirmed/verified patient's and full name. All clear. Closing statement given. Kevin Reardon RN documented in this encounterLouis Stokes Cleveland [facility]02-09-2024 [facility]02-09-2024 NoteMount [facility]el [facility]02-09-2024 NoteMount [facility]el [facility]02-08-2024 NoteMount [facility]02-08-2024 Note [facility]-2024 NoteMount [facility]02-06-2024 NoteMount [facility]02-05-2024 NoteMount [facility] 07-29-2023 NoteMount [facility]el [facility] System02-05-2024 NoteMount [facility]el [facility] System01-31-2024 NoteHNO ID: [id number] Author: ?, ?, ? Service: ? Author Type: ? Type: Progress Notes Filed: 07/24/2023 11:11 Note Text: QOL Call Tracking Documentation Follow-Up Type: Phone Call Call Attempt: 1st Attempt Call Status: Left MessageMount Carmel Health System01-24-2024 NoteMount [facility]el [facility] System01-24-2024 NoteMount [facility]el [facility]01-24-2024 Note [facility]01-[facility]-2024 NoteMount [facility] System01-09-2024 NoteMount [facility]el [facility] System01-09-2024 NoteMount [facility] 07-02-2023 NoteMount Carmel [facility] System01-09-2024 NoteMount [facility]el [facility] System01-09-2024 NoteMount [facility] System01-09-2024 NoteMount [facility]el [facility]01-04-2024 NoteMount Carmel [facility] System12-29-2023 NoteHNO ID: [id number] Author: Christel De La Fuente Service: ? Author Type: ? Type: Progress Notes Filed: 06/26/2023 2:37 PM Note Text: Sent to Scheduling Patient scheduled 07/08/23[facility]12-29-2023 NoteMount [facility]el [facility] System12-22-2023 NoteMount [facility]12-22-2023 Note [facility]12-22-2023 NoteHNO ID: [id number] Author: Julio Smalls, RANDA Service: ? Author Type: Registered Resp Therapist Type: Progress Notes Filed: 06/14/2023 12:24 PM Note Text: PULM FUNCTION SMARTBLOCK: Provider: Willem Suarez MD Spirometry: 1 [facility] NoteMount Carmel [facility] System 06-03-2023 Miscellaneous Notes* Telephone Encounter - Robbin Sanford - 06/03/2023 4:34 PM EST CALLED AND CONFIRMED APPTS W/MRS. QUEZADA VIA PHONE MAILED REMINDER FED EX NEXT DAY 06-03-23 AW #[id number] * Telephone Encounter - Ghazala Malave RN - 05/30/2023 10:08 AM EST eval only kris vascular surgery, testing, Dr. Suarez *Please call with date internal referral diagnosis: CAD history: PAD s/p iliac stents November 2022, current smoker, DM2, HTN blood thinners: asa 81, plavix, xarelto, trulicity, jardiance, ibuprofen documented in this encounterLouis Stokes Cleveland [facility] Center12-07-2023 Miscellaneous Notes* Telephone Encounter - Radha Brady - 05/30/2023 10:38 AM EST IN documented in this encounterLouis Stokes Cleveland [facility] Center12-05-2023 NoteMount Carmel Health System12-05-2023 History of Present illness Narrative* Shanice Larsen MD - 05/28/2023 1:37 PM EST Images from the original note were not included. [facility] [place] Arlette Goldstein Department of Cardiovascular Medicine SECTION OF CLINICAL CARDIOLOGY OUTPATIENT VISIT DATE May 28, 2023 OUTPATIENT VISIT TYPE ESTABLISHED PRIMARY CARE PHYSICIAN: To use this Smartlink, specify the provider ID whose address you want to display, e.g., .PROVADDR[1(where 1 is the provider ID). REFERRING PHYSICIAN: Shanice Larsen [address] [facility] [address] CHIEF COMPLAINT: Shortness of breath HISTORY OF PRESENT ILLNESS: Ms. Quezada is a 63 year old female who presents today for a cardiovascular medicine follow-up visit. I last saw her in Mar . She was having severe nausea and vomiting at the time. She was worked up by her metal burnisher and no cause was found. She is now interested in proceeding to CABG. She was being worked up for a vascular procedure (aorto bifem) -she has a history of severe PAD with kissing iliacstents on the right and s/p hematoma in left groin (?perforation during procedure). She underwent astress test which was nondiagnostic but cath showed severe LAD disease subtotaled circ and occludeddistal PDA (fills from collaterals) She denies chest [...] population = 50. Five points is a clinicallymeaningful difference.) 05/13/2023 Physical T-Score 37.4 Mental T-Score [...] Negative for: Weakness, Paralysis, Numbness, Tingling, Tremor, Nervousness,Depressed mood, Memory loss SKIN: Negative for: Rashes, Itching HEMATOLOGICAL/LYMPHATIC: Negative for: Easy bruising , Easy bleeding ENDOCRINE: Negative for: Heat or cold intolerance, Excessive sweating, Frequent urination, Frequentthirst PHYSICAL EXAMINATION:BP 109/59 (BP Site: Left Arm, [...] bruits, carotids have a normal upstroke, no palpablethyromegaly. Lungs: Clear to auscultation bilaterally, no wheezing [...] ECG Confirmed by MD DOLORES, PhD, DAYO ([id number]) on 04/16/2023 6:22:03 AM I have personally reviewed the Echocardiogram. IMPRESSION: Ms. Quezada is a 63 year old female with severe PAD,multivessel CAD . She is still smoking and she has Type 2 DM PLAN AND RECOMMENDATIONS: CABG-need to make sure she has adequate conduit. Shanice Larsen MD CONTACT INFORMATION: documented in this encounterLouis Stokes Cleveland [facility] Center11-20-2023 NoteMount Carmel Health System11-20-2023 History of Present illness Narrative* Shanice Larsen MD - 05/13/2023 3:10 PM EST [facility] [place] Department of Cardiovascular Medicine VIRTUAL VIDEO VISIT ESTABLISHED OUTPATIENT VISIT SERVICE DATE: 05/13/2023 Patient: Elizabeth Quezada SERVICE TIME: 3:10 PM : 1960 This is a virtual video visit. It required patient-provider interaction for the medical decision making as documented below. Elizabeth Quezada has consented to this video encounter. I have communicated my name and active licensure. The patient's identity and physical location wereverified at the time of this visit. Either the patient or their legal district representative has been informed of the risks and benefits of -- and alternatives to -- treatment through a remote evaluation andconsents to proceed with the evaluation remotely. Elizabeth [...] Upset Januvia [Sitaglipti* Unknown Rosuvastatin Unknown Allerg Xt,DAngel* Itching Cat Hair Standardiz* Itching sneezing House [...] population = 50. Five points is a clinicallymeaningful difference.) 05/13/2023 Physical T-Score 37.4 Mental T-Score [...] management and care of this patient. Shanice Larsen MD May 13, 2023 3:10 PM documented in this encounterLouis Stokes Cleveland [facility] Center11-09-2023 NoteMount Carmel [facility] System11-03-2023 NoteMount Carmel Health System11-03-2023 History of Present illness Narrative* Shanice Larsen MD - 04/26/2023 5:12 PM EDT I have reviewed her cardiac cath-she indeed has multivessel disease and needs coronary revascularization. I am going to refer her to CTS but I would like to see her echo ; we also need to see whetherher nausea and vomiting have improved and whether she has quit smoking; she has significant PAD andaortic disease which make her high risk-Shanice Larsen MD documented in this encounterLouis Stokes Cleveland [facility] Center10-11-2023 Instructions* Patient Instructions* Serena Smith - 04/03/2023 9:34 AM EDT Complete blood work today Complete Echo documented in this encounterLouis Stokes Cleveland [facility] Center10-11-2023 History of Present illness Narrative* Shanice Larsen MD - 04/03/2023 7:45 AM EDT Images from the original note were not included. [facility] [place] Arlette Goldstein Department of Cardiovascular Medicine SECTION OF CLINICAL CARDIOLOGY OUTPATIENT VISIT DATE April 02, 2023 OUTPATIENT VISIT TYPE NEW PRIMARY CARE PHYSICIAN: To use this Smartlink, specify the provider ID whose address you want to display, e.g., .PROVADDR[1(where 1 is the provider ID). REFERRING PHYSICIAN: [...] is a 63 year old female from [place], [place] here today for cardiovascular evaluation related to CAD. Elizabeth has a significant medical history of PAD, S/p bilateral kissing iliac stents 11/28/2022 c/b L thigh hematoma, Coronary Atherosclerosis. She denies chest pain, palpitations, shortness of breath, lightheadedness, dizziness, syncope, PND,and edema at this time. She does have [...] Negative for: Weakness, Paralysis, Numbness, Tingling, Tremor, Nervousness,Depressed mood, Memory loss SKIN: Negative for: Rashes, Itching HEMATOLOGICAL/LYMPHATIC: Negative for: Easy bruising , Easy bleeding ENDOCRINE: Negative for: Heat or cold intolerance, Excessive sweating, Frequent urination, Frequentthirst PHYSICAL EXAMINATION: BP 200/116 (BP Site: Left Arm) Pulse 101 General: Well appearing, in no acute distress, speaking in complete sentences. Skin: No clubbing, no cyanosis. Eyes: Extra ocular movements intact, Normal conjunctiva, Non-icteric sclerae Oropharynx: Teeth in good repair. Neck: No jugular venous distention, no carotid bruits, carotids have a normal upstroke, no palpablethyromegaly. Lungs: Clear to auscultation bilaterally, no wheezing [...] obtained by others. CONTACT INFORMATION: Dr. Usha Larsen MD Cardiology ATTESTATION: By signing my name below, I, Serena Smith, attest that this documentation has been prepared under thedirection and in the presence of Shanice Larsen MD. Electronically signed:Payton Gomez, April 03, 2023 10:10 AM documented in this encounterLouis Stokes Cleveland [facility] Center10-11-2023 NoteMount Carmel Health System10-03-2023 Hospital Discharge instructions Additional Instructions DISCHARGE INSTRUCTIONS FOR CARDIAC MMD UNIT TEACHER PHONE NUMBER OF YOUR PHYSICIAN: [phone] PROCEDURE: Heart Cath The following instructions have [...] cold, numb, blue or white, call the maintenance apprentice immediately. 4. ACTIVITY: You are advised to [...] bottle, follow the instructions on the bottle. [facility] is not responsible for incorrect prescription information provided by the patient during their visit. Do not stop your medications without consulting your health care provider. Please take the list with you to your next doctor's appointment.[facility] Work Phone: 1(282) 812-958709-27-2023 Evaluation note* Encounter Date Diagnosis Assessment Notes Treatment Notes Treatment Clinical Notes Feb, Shortness of breath (ICD-10 - R06.02) Feb, Abnormal stress test (ICD-10 - R94.39) 63-year-old female with past medical history significant for peripheral vascular disease status post bilateral iliac kissing stents with now worsening intermittent claudication. She is planned for an aortobifemoral bypass surgery at [facility] on March 29, 2023 and presents [...] perfusion defectSevere PAD status post bilateral iliac stentsHypertensionHyperlipidemiaDiabete sActive tobacco use Plan: -Given elevated cardiac risk [...] Hyperlipidemia, unspecified hyperlipidemia type (ICD-10 - E78.5) [facility] Other 11-17-2022 NotePROCEDURE: XR FOOT RT MIN [...] evidence of osteomyelitis Electronically authenticated by: NISA EDWARDS Date: 2022-05-10 13:23[facility] complaint Narrative - Abiodun QUEZADA is being seen for a consultation for dizziness, fatigue and palpitations.-[facility] DO Work Phone: Evaluation noteNo assessment information [facility] Work Phone: evaluation noteNo InformationNoClar[facility] [place] Other evaluation note* Diagnosis Abnormal stress test- Primary Other nonspecific abnormal cardiovascular system function study documented in this encounter [facility]* Diagnosis Abnormal stress test- Primary Other nonspecific abnormal cardiovascular system function study documented in this encounter [facility]* Diagnosis Coronary artery disease involving caddo coronary artery without angina pectoris, unspecified whether caddo or transplanted heart- Primary documented in this encounter [facility]* Diagnosis 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- Primary Preop cardiovascular exam Pre-operative cardiovascular examination Morbid obesity (HCC) Morbid obesity documented in this encounter [facility]* Diagnosis SOB (shortness of breath)- Primary Shortness of breath 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 PAD (peripheral artery disease) ([facility]) Peripheral vascular disease, unspecified documented in this encounter [facility]* Diagnosis 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)- Primary PAD (peripheral artery disease) (HCC) Peripheral vascular disease, unspecified S/P insertion of iliac artery stent Other postprocedural status Current smoker Tobacco use disorder Primary hypertension Unspecified essential hypertension Coronary angioplasty status Postsurgical percutaneous transluminal coronary angioplasty status documented in this encounter [facility]* Diagnosis Surgery follow-up- Primary Follow-up examination, following unspecified surgery documented in this encounter [facility]* Diagnosis S/P CABG (coronary artery bypass graft)- Primary Postsurgical aortocoronary bypass status PVD (peripheral vascular disease) ([facility]) Peripheral vascular disease, unspecified documented in this encounter [facility]* Diagnosis Surgery follow-up Follow-up examination, following unspecified surgery documented in this encounter [facility]* Diagnosis Abnormal finding of diagnostic imaging- Primary Other nonspecific (abnormal) findings on radiological and other examinations of body structure [facility] Diagnosis 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- Primary documented in this encounter [facility]* Diagnosis Lung nodule Solitary pulmonary nodule documented in this encounter [facility]* Diagnosis Coronary artery disease of caddo artery of caddo heart with stable angina pectoris (HCC)- Primary SOB (shortness of breath) Shortness of breath PAD (peripheral artery disease) (HCC) Peripheral vascular disease, unspecified TIA (transient ischemic attack) Unspecified transient cerebral ischemia documented in this encounter [facility]* Diagnosis 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, bilateral legs (HCC)- Primary documented in this encounter [facility]* Diagnosis Coronary artery disease of caddo artery of caddo heart with stable angina pectoris (HCC)- Primary PAD (peripheral artery disease) (HCC) Peripheral vascular disease, unspecified Primary hypertension Unspecified essential hypertension Hyperlipidemia, unspecified hyperlipidemia type documented in this encounter [facility]* Diagnosis Atherosclerosis of caddo artery of both lower extremities with intermittent claudication (HCC)- Primary Atherosclerosis of caddo arteries of the extremities with intermittent claudication documented in this encounter [facility]* Diagnosis Lung nodule- Primary Solitary pulmonary nodule Lung nodule- Primary Solitary pulmonary nodule Coronary artery disease of caddo artery of caddo heart with stable angina pectoris (HCC) PAD (peripheral artery disease) (HCC) Peripheral vascular disease, unspecified Primary hypertension Unspecified essential hypertension Hyperlipidemia, unspecified hyperlipidemia type documented in this encounter [facility] general Narrative - Reported* Type Description Date Medical History aortic stenosis Medical History diabetes type 2 Medical History blood clot Medical History hypertension Medical History hyperlipidemia Medical History peripheral vascular disease Surgical History carpal tunnel Surgical History trigger finger Surgical History tubal ligation Surgical History bilateral kissing stents Surgical History left thigh evacuation hematoma Hospitalization History blood clot after cardiac stents [facility] Other History of Present illness Narrative* Patient [...] change and see us henceforth as needed. -[facility] DO Work Phone: [facility] Outpatient Procedure (Routine) - Authorized Specialty Diagnoses / Procedures Referred By Contac t Referred To Contact [facility] Diagnoses Abnormal stress test Procedures ECHO ECHO TTHRC R-T 2D W/WOM-MODE COMPL SPEC&COLR D Shanice Larsen MD [address] [place] [address] [facility] [address] [address] Referral ID Status Reason Start Date Expiration Date Visits Requested Visits Authorized [id number] Authorized Auto-Generat ed Referral 3 04/02/2024 1 1 [facility] for referral (narrative)* Outpatient Procedure (Routine) - Authorized Specialty Diagnoses / Procedures Referred By Contac Referred To Contact [facility] Diagnoses Abnormal stress test Procedures ECG COMPLETE ECG ROUTINE ECG W/LEAST 12 LDS W/I&R Pamela Laws APRN.DEE DEE [address] [place] [address] [facility] [address] [address] Referral ID Status Reason Start Date Expiration Date Visits Requested Visits Authorized [id number] Authorized Auto-Generat ed Referral 3 04/07/2024 1 1 [facility] for referral (narrative)* Outpatient Procedure (Routine) - Authorized Specialty Diagnoses / Procedures Referred By Contac t Referred To Contact [facility] Diagnoses 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) PAD (peripheral artery disease) (HCC) S/P insertion of iliac artery stent Current smoker Primary hypertension Coronary angioplasty status Procedures LUNG DIFFUSION CAPACITY (DLCO) DIFFUSING CAPACITY Willem Suarez MD [address] [place] [address] [facility] [place] [address] [place] [address] Referral ID Status Reason Start Date Expiration Date Visits Requested Visits Authorized [id number] Authorized Auto-Generat ed Referral 3 07/02/2024 1 1 * Outpatient Procedure (Routine) - Authorized Specialty Diagnoses / Procedures Referred By Contac t Referred To Contact [facility] Diagnoses 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) PAD (peripheral artery disease) ([facility]) S/P insertion of iliac artery stent Current smoker Primary hypertension Coronary angioplasty status Procedures SPIROMETRY BASELINE ONLY SPMTRY W/VC EXPIRATORY CHERYL W/WO MXML VOL VNTJ Willem Suarez MD [address] [place] [address] Respiratory [place] [address] [place] [address] Referral ID Status Reason Start Date Expiration Date Visits Requested Visits Authorized [id number] Authorized Auto-Generat ed Referral 3 07/02/2024 1 1 * Outpatient Procedure (Routine) - Authorized Specialty Diagnoses / Procedures Referred By Contac t Referred To Contact [facility] Diagnoses 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) PAD (peripheral artery disease) ([facility]) S/P insertion of iliac artery stent Current smoker Primary hypertension Coronary angioplasty status Procedures US MAMMARY ARTERY LOVE VAS LAB DUP-SCAN UXTR ART/ARTL BPGS [place] [address] [place] [address] [facility] [address] [address] Referral ID Status Reason Start Date Expiration Date Visits Requested Visits Authorized [id number] Authorized Auto-Generat ed Referral 3 06/02/2024 1 1 * Outpatient Procedure (Routine) - Authorized Specialty Diagnoses / Procedures Referred By Contcj t Referred To Contact [facility] Diagnoses 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) PAD (peripheral artery disease) ([facility]) S/P insertion of iliac artery stent Current smoker Primary hypertension Coronary angioplasty status Procedures US LEG VEIN MAP LOVE VAS LAB DUP-SCAN XTR VEINS COMPLETE [place] [address] [place] [address] [facility] [address] [address] Referral ID Status Reason Start Date Expiration Date Visits Requested Visits Authorized [id number] Authorized Auto-Generat ed Referral 3 06/02/2024 1 1 * Outpatient Procedure (Routine) - Authorized Specialty Diagnoses / Procedures Referred By Contac t Referred [facility] Diagnoses 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) PAD (peripheral artery disease) (HCC) S/P insertion of iliac artery stent Current smoker Primary hypertension Coronary angioplasty status Procedures US CAROTID ARTERIES LOVE VAS LAB DUPLEX SCAN EXTRACRANIAL ART COMPL BI STUDY Willem Suarez MD [address] [place] [phone] [facility] V[facility] [address] [address] Referral ID Status Reason Start Date Expiration Date Visits Requested Visits Authorized [id number] Authorized Auto-Generat ed Referral 3 06/23/2023 1 1 * MRI/CT (Routine) - Authorized Specialty Diagnoses / Procedures Referred By Catherine michel Referred To Contact CT IMAGING Diagnoses 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) PAD (peripheral artery disease) (HCC) S/P insertion of iliac artery stent Current smoker Primary hypertension Coronary angioplasty status Procedures CT CHEST CARDIAC WO IVCON DIAGNOSTIC COMPUTED TOMOGRAPHY THORAX W/O CNTRST Willem Suarez MD [address] [place] [address] Ct Imaging [facility] Referral ID Status Reason Start Date Expiration Date Visits Requested Visits Authorized [id number] Authorized Auto-Generat ed Referral 3 07/02/2024 1 1 * Consult, Test, Treat (Routine) - Authorized Specialty Diagnoses / Procedures Referred By Lanceac t Referred To Contact Vascular Surgery Diagnoses 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) PAD (peripheral artery disease) (HCC) S/P insertion of iliac artery stent Current smoker Primary hypertension Coronary angioplasty status Procedures CONSULT TO VASCULAR SURGERY OFFICE/OUTPATIENT [facility] 60-74 MINUTES Willem Suarez MD [address] [place] [address] Referral ID Status Reason Start Date Expiration Date Visits Requested Visits Authorized [id number] Authorized PCP Requested Referral 3 06/02/2024 1 1 * Consult, Test, Treat (Routine) - Authorized Specialty Diagnoses / Procedures Referred By Contac t Referred To Contact Cardiac Surg Diagnoses 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) PAD (peripheral artery disease) (HCC) S/P insertion of iliac artery stent Current smoker Primary hypertension Coronary angioplasty status Procedures CARDIOTHORACIC PREOP EVALUATION OFFICE/OUTPATIENT [facility] 60-74 MINUTES Willem Suarez MD [address] [place] [address] Referral ID Status Reason Start Date Expiration Date Visits Requested Visits Authorized [id number] Authorized PCP Requested Referral 3 06/02/2024 1 1 [facility] for referral (narrative)* Outpatient Procedure (Routine) - Pending Review Specialty Diagnoses / Procedures Referred By Contac t Referred To [facility] Diagnoses Surgery follow-up Procedures ECG COMPLETE ECG ROUTINE ECG W/LEAST 12 LDS W/I&R Willem Suarez MD [address] [facility] [place] [address] [facility] [place] [address] [place], [place] [address] [address] Referral ID Status Reason Start Date Expiration Date Visits Requested Visits Authorized [id number] Pending Review Auto-Generat ed Referral 08/01/2023 07/31/2024 1 1 [facility] for referral (narrative)* Outpatient Procedure (Routine) - Pending Review Specialty Diagnoses / Procedures Referred By Contac t Referred To Contact [facility] Diagnoses Coronary artery disease of c[place] artery of caddo heart with stable angina pectoris (HCC) SOB (shortness of breath) PAD (peripheral artery disease) (HCC) TIA (transient ischemic attack) Procedures ECG COMPLETE ECG ROUTINE ECG W/LEAST 12 LDS W/I&R Shanice Larsen MD [address] [place] [address] [address] Referral ID Status Reason Start Date Expiration Date Visits Requested Visits Authorized [id number] Pending Review Auto-Generat ed Referral 10/10/2023 10/09/2024 1 1 * Transition of Care (Routine) - Ref Not Required Specialty Diagnoses / Procedures Referred By Contac t Referred To Contact [facility] Diagnoses Coronary artery disease of [place] artery of [place] heart with stable angina pectoris (HCC) SOB (shortness of breath) PAD (peripheral artery disease) (HCC) TIA (transient ischemic attack) Procedures CARDIOVASCULAR MEDICINE OP FOLLOW UP APPT ORDER Shanice Larsen MD [address] [place] [address] [address] Referral ID Status Reason Start Date Expiration Date Visits Requested Visits Authorized [id number] Ref Not Required PCP Requested Referral 01/09/2024 10/09/2024 1 1 [facility] for referral (narrative)* Outpatient Procedure (Routine) - Pending Review Specialty Diagnoses / Procedures Referred By Contac t Referred To Contact [facility] Diagnoses 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, bilateral legs (HCC) Procedures PVR LEG LOVE VAS LAB NON-INVASIVE PHYSIOLOGIC STUDY EXTREMITY 3 Papa Hernandez MD [address] [place] [address] [facility] [place] [address] [place] [phone] Referral ID Status Reason Start Date Expiration Date Visits Requested Visits Authorized [id number] Pending Review Auto-Generat ed Referral 01/03/2024 01/02/2025 1 1 [facility] Summary Purpose Family History No Family History [...] Date/ Time Advance Directives No February 2:51pm Documents on File Type Date Recorded Patient Lead Former Expl anation Advance Directive(s) 07/17/2023 1:14 PM Documents on File Type Date Recorded Patient Lead Former Expl anation Advance Directive(s) 07/17/2023 1:14 PM Chief Complaint and Reason for Visit Chief Complaint Abnormal Stress Test Chief Complaint Abnormal Stress Test Abnormal Stress Test Reason for Referral Specialty Diagnoses / Procedures Referred By Contac t Referred To Contact CT IMAGING Diagnoses Coronary artery disease of [place] artery of [place] heart with stable angina pectoris (HCC) PAD (peripheral artery disease) (HCC) Primary hypertension Hyperlipidemia, unspecified hyperlipidemia type Procedures CT CHEST WO IVCON DIAGNOSTIC COMPUTED TOMOGRAPHY THORAX W/O Shanice Patton MD [address] [place] [id number] Imaging [place] [address] Referral ID Status Reason Start Date Expiration Date Visits Requested Visits Authorized [id number] Pending Review Auto-Generat ed Referral 01/16/2024 02/14/2025 1 1 Specialty Diagnoses / Procedures Referred By Contac t Referred To Contact [facility] Diagnoses Coronary artery disease of [place] artery of [place] heart with stable angina pectoris (HCC) PAD (peripheral artery disease) (HCC) Primary hypertension Hyperlipidemia, unspecified hyperlipidemia type Procedures ECG COMPLETE ECG ROUTINE ECG W/LEAST 12 LDS W/I&R Shanice Larsen MD [address] [place] [phone] [facility] [place] [address] Referral ID Status Reason Start Date Expiration Date Visits Requested Visits Authorized [id number] New Request Auto-Generat ed Referral 01/16/2024 01/15/2025 1 1 Specialty Diagnoses / Procedures Referred By Contac t Referred To Contact [facility] Diagnoses Coronary artery disease of [place] artery of [place] heart with stable angina pectoris (HCC) PAD (peripheral artery disease) (HCC) Primary hypertension Hyperlipidemia, unspecified hyperlipidemia type Procedures CARDIOVASCULAR MEDICINE OP FOLLOW UP APPT ORDER Shanice Larsen MD [address] [place] [address] [place] [phone] Referral ID Status Reason Start Date Expiration Date Visits Requested Visits Authorized [id number] Ref Not Required PCP Requested Referral 07/18/2024 01/15/2025 1 1 Specialty Diagnoses / Procedures Referred By Contac t Referred To Contact CT IMAGING Diagnoses Lung nodule Procedures CT CHEST WO IVCON DIAGNOSTIC COMPUTED TOMOGRAPHY THORAX W/O CNTRST Gloria Callahan MD [address] [place] [address] Ct Imaging [facility] Referral ID Status Reason Start Date Expiration Date Visits Requested Visits Authorized [id number] Pending Review Auto-Generat ed Referral 10/21/2023 11/19/2024 1 1 Specialty Diagnoses / Procedures Referred By Contac t Referred To Contact Procedures CARDIOVASCULAR MEDICINE OP FOLLOW UP APPT ORDER Shanice Larsen MD [address] [place] [address] Referral ID Status Reason Start Date Expiration Date Visits Requested Visits Authorized [id number] Ref Not Required PCP Requested Referral 05/28/2023 05/27/2024 1 1 Specialty Diagnoses / Procedures Referred By Contac t Referred To Contact Cardiothoracic Surgery Diagnoses Coronary artery disease involving c[place]o coronary artery without angina pectoris, unspecified whether caddo or transplanted heart Procedures CONSULT TO CARDIOTHORACIC SURGERY Shanice Larsen MD [address] [place] [address] Referral ID Status Reason Start Date Expiration Date Visits Requested Visits Authorized [id number] Ref Not Required PCP Requested Referral 05/26/2023 04/25/2024 1 1 Health Concerns Problem Noted Date Diagnosed Date Interactive Heart Surgery Education 07/11/2023 Problem Noted Date Diagnosed Date Interactive Heart Surgery Education 07/11/2023 Problem Noted Date Diagnosed Date Interactive Heart Surgery Education 07/11/2023 Problem Noted Date Diagnosed Date Interactive Heart Surgery Education 07/11/2023 Problem Noted Date Diagnosed Date Interactive Heart Surgery Education 07/11/2023 Problem Noted Date Diagnosed Date Interactive Heart Surgery Education 07/11/2023 Active Problems Noted Date Diagnosed Date Interactive Heart Surgery Education 07/11/2023 Active Problems Noted Date Diagnosed Date Interactive Heart Surgery Education 07/11/2023 Active Problems Noted Date Diagnosed Date Interactive Heart Surgery Education 07/11/2023 Active Problems Noted Date Diagnosed Date Interactive Heart Surgery Education 07/11/2023 Active Problems Noted Date Diagnosed Date Interactive Heart Surgery Education 07/11/2023 Additional Source Comments INFORMATION SOURCE (unrecogn ized section and content) DATE CREATED AUTHOR 07/19/2022 [facility] DATE CREATED AUTHOR AUTHOR'S ORGANIZ ATION 07/20/2022 [employer] DATE CREATED AUTHOR AUTHOR'S ORGANIZ ATION 10/07/2022 [facility] DATE CREATED AUTHOR AUTHOR'S ORGANIZ ATION 04/03/2023 [facility] DATE CREATED AUTHOR AUTHOR'S ORGANIZ ATION 06/11/2023 [facility] DATE CREATED AUTHOR AUTHOR'S ORGANIZ ATION 10/03/2023 [facility] DATE CREATED AUTHOR AUTHOR'S ORGANIZ ATION 12/30/2023 [facility] EPIC DATE CREATED AUTHOR AUTHOR'S ORGANIZ ATION 02/27/2024 [facility] Care Teams (unrecognized sec tion and content) Team Status: Active Member Role Status Dates Nano Nguyen MD Primary Care Provider Active Team Status: Inactive Member Role Status Dates Patrizia Melendrez MD Attending Provider Active Nano Nguyen MD Primary Care Provider Active Counselor Aid Relationship Specialty Start Date End Date Shanice Larsen MD [address] [place], [place] [phone] Primary Staff Physician Cardiology 04/03/23 Counselor Aid Relationship Specialty Start Date End Date Shanice Larsen MD [address] [place] [address] Primary Staff Physician Cardiology 04/03/23 Counselor Aid Relationship Specialty Start Date End Date Shanice Larsen MD [address] [place] [address] Primary Staff Physician Cardiology 04/03/23 Counselor Aid Relationship Specialty Start Date End Date Shanice Larsen MD [address] [place], [place] [phone] Primary Staff Physician Cardiology 04/03/23 Counselor Aid Relationship Specialty Start Date End Date Shanice Larsen MD [address] [place] [address] Primary Staff Physician Cardiology 04/03/23 Willem Suarez MD [address] [place], [place] [address] Surgeon Cardiac Surg 05/30/23 Counselor Aid Relationship Specialty Start Date End Date Shanice Larsen MD [address] [place], [place] [phone] Primary Staff Physician Cardiology 04/03/23 Willem Suarez MD [address] [place] [address] Surgeon Cardiac Surg 05/30/23 Counselor Aid Relationship Specialty Start Date End Date Nano Nguyen MD [address] [place] [address] PCP - General Family Medicine 06/14/23 Shanice Larsen MD Primary Staff Physician Cardiology 04/03/23 Willem Suarez MD [address] [place] [address] Surgeon Cardiac Surg 05/30/23 Counselor Aid Relationship Specialty Start Date End Date Nano Nguyen MD [address] [place] [address] PCP - General Family Medicine 06/14/23 Shanice Larsen MD Primary Staff Physician Cardiology 04/03/23 Willem Suarez MD [address] [place], [place] [phone] Surgeon Cardiac Surg 05/30/23 Counselor Aid Relationship Specialty Start Date End Date Nano Nguyen MD [address] [place] [address] PCP - General Family Medicine 06/14/23 Shanice Larsen MD Primary Staff Physician Cardiology 04/03/23 Willem Suarez MD [address] [place] [address] Surgeon Cardiac Surg 05/30/23 Counselor Aid Relationship Specialty Start Date End Date Nano Nguyen MD [address] [place] [phone] PCP - General Family Medicine 06/14/23 Shanice Larsen MD Primary Staff Physician Cardiology 04/03/23 Willem Suarez MD [address] [place] [address] Surgeon Cardiac Surg 05/30/23 Counselor Aid Relationship Specialty Start Date End Date Nano Nguyen MD [address] [place] [phone] PCP - General Family Medicine 06/14/23 Shanice Larsen MD Primary Staff Physician Cardiology 04/03/23 Willem Suarez MD [address] [place] [address] Surgeon Cardiac Surg 05/30/23 Counselor Aid Relationship Specialty Start Date End Date Nano Nguyen MD [address] [place] [address] PCP - General Family Medicine 06/14/23 Shanice Larsen MD Primary Staff Physician Cardiology 04/03/23 Willem Suarez MD [address] [place] [address] Surgeon Cardiac Surg 05/30/23 Counselor Aid Relationship Specialty Start Date End Date Nano Nguyen MD [address] [place] [address] PCP - General Family Medicine 06/14/23 Shanice Larsen MD Primary Staff Physician Cardiology 04/03/23 Willem Suarez MD [address] [place] [address] Surgeon Cardiac Surg 05/30/23 Counselor Aid Relationship Specialty Start Date End Date Nano Nguyen MD [address] [place] [address] PCP - General Family Medicine 06/14/23 Shanice Larsen MD Primary Staff Physician Cardiology 04/03/23 Willem Suarez MD [address] [place] [address] Surgeon Cardiac Surg 05/30/23 Counselor Aid Relationship Specialty Start Date End Date Nano Nguyen MD [address] [place] [address] PCP - General Family Medicine 06/14/23 Shanice Larsen MD Primary Staff Physician Cardiology 04/03/23 Willem Suarez MD [address] [place] [address] Surgeon Cardiac Surg 05/30/23 Counselor Aid Relationship Specialty Start Date End Date Nano Nguyen MD [address] [place] [address] PCP - General Family Medicine 06/14/23 Shanice Larsen MD Primary Staff Physician Cardiology 04/03/23 Willem Suarez MD [address] [facility] [place] [address] Surgeon Cardiac Surg 05/30/23 Counselor Aid Relationship Specialty Start Date End Date Nano Nguyen MD [address] [place] [phone] PCP - General Family Medicine 06/14/23 Shanice Larsen MD Primary Staff Physician Cardiology 04/03/23 Willem Suarez MD [address] [place] [address] Surgeon Cardiac Surg 05/30/23 Counselor Aid Relationship Specialty Start Date End Date Nano Nguyen MD [address] [place] [address] PCP - General Family Medicine 06/14/23 Shanice Larsen MD Primary Staff Physician Cardiology 04/03/23 Willem Suarez MD [address] [place] [address] Surgeon Cardiac Surg 05/30/23 Counselor Aid Relationship Specialty Start Date End Date Nano Nguyen MD [address] [place] [address] PCP - General Family Medicine 06/14/23 Shanice Larsen MD Primary Staff Physician Cardiology 04/03/23 Willem Suarez MD [address] [facility] [place] [address] Surgeon Cardiac Surg 05/30/23 Counselor Aid Relationship Specialty Start Date End Date Nano Nguyen MD [address] [place] [address] PCP - General Family Medicine 06/14/23 Shanice Larsen MD Primary Staff Physician Cardiology 04/03/23 Willem Suarez MD [address] [place] [address] Surgeon Cardiac Surg 05/30/23 Counselor Aid Relationship Specialty Start Date End Date Nano Nguyen MD [address] [place] [address] PCP - General Family Medicine 06/14/23 Shanice Larsen MD Primary Staff Physician Cardiology 04/03/23 Willem Suarez MD [address] [place] [address] Surgeon Cardiac Surg 05/30/23 Counselor Aid Relationship Specialty Start Date End Date Nano Nguyen MD [address] [place] [address] PCP - General Family Medicine 06/14/23 Shanice Larsen MD Primary Staff Physician Cardiology 04/03/23 Willem Suarez MD [address] [place] [address] Surgeon Cardiac Surg 05/30/23 Counselor Aid Relationship Specialty Start Date End Date Nano Nguyen MD [address] [place] [address] PCP - General Family Medicine 06/14/23 Shanice Larsen MD Primary Staff Physician Cardiology 04/03/23 Willem Suarez MD [address] [place] [address] Surgeon Cardiac Surg 05/30/23 Counselor Aid Relationship Specialty Start Date End Date Nano Nguyen MD [address] [place] [address] PCP - General Family Medicine 06/14/23 Shanice Larsen MD Primary Staff Physician Cardiology 04/03/23 Willem Suarez MD [address] [place] [address] Surgeon Cardiac Surg 05/30/23 Counselor Aid Relationship Specialty Start Date End Date Nano Nguyen MD [address] [place] [phone] PCP - General Family Medicine 06/14/23 Shanice Larsen MD Primary Staff Physician Cardiology 04/03/23 Willem Suarez MD [address] [place] [address] Surgeon Cardiac Surg 05/30/23 Goals (unrecognized section and content) Goals may be documented in a n alternate sectionNo InformationNo InformationNo Information REASON FOR VISIT (unrecogniz ed section and content) Reason Comments Follow Up Tests Results Reason Comments Follow Up Reason Comments Insurance Authorization Reason Comments Referral Information New Patient Evaluation Reason Comments Follow Up Phone Call f/u all clear Specialty Diagnoses / Procedures Referred By Contac t Referred To Contact ADMITTING Diagnoses 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) Type 2 diabetes mellitus without complication, without long-term current use of insulin (HCC) Procedures CORONARY ARTERY BYP W/VEIN & ARTERY GRAFT 1 VEIN BYPASS GRAFT ARTERY CORONARY ON-PUMP USING VENOUS GRAFT(S) AND ARTERIAL GRAFT(S) SINGLE VEIN GRAFT [facility] [address] [place] [address] Referral ID Status Reason Start Date Expiration Date Visits Re quested Visits Authorized [id number] 1 1 Reason Comments Radio Main J1 Specialty Diagnoses / Procedures Referred By Contac t Referred To Contact ADMITTING Diagnoses 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) Type 2 diabetes mellitus without complication, without long-term current use of insulin (HCC) Procedures CORONARY ARTERY BYP W/VEIN & ARTERY GRAFT 1 VEIN BYPASS GRAFT ARTERY CORONARY ON-PUMP USING VENOUS GRAFT(S) AND ARTERIAL GRAFT(S) SINGLE VEIN GRAFT [facility] [address] [place] [address] Reason Comments Follow Up Phone Call RC follow up call a ll clear. Reason Comments Appointment Reason Comments dental clearance Specialty Diagnoses / Procedures Referred By Lanceac t Referred To Contact CT IMAGING Diagnoses Lung nodule Procedures CT CHEST WO IVCON DIAGNOSTIC COMPUTED TOMOGRAPHY THORAX W/O CNTRST Gloria Callahan MD [address] [place] [address] Ct Imaging [place] [address] Referral ID Status Reason Start Date Expiration Date V isits Requested Visits Authorized [id number] Closed Auto-Generate d Referral 09/02/2023 06/23/2024 1 1 Reason Comments Follow Up Shortness of Breath Specialty Diagnoses / Procedures Referred By Catherine t Referred To Contact Diagnoses Follow-up exam Procedures CARDIOVASCULAR MEDICINE OP FOLLOW UP APPT ORDER OFFICE/OUTPATIENT ESTABLISHED HIGH MDM 40 MIN Pamela Laws, DESTINEE.KINDERGARTEN PARAPROFESSIONAL [address] [place] [address] [address] [facility] [place] [address] Referral ID Status Reason Start Date Expiration Date V isits Requested Visits Authorized [id number] Closed PCP Requested Referral 10/01/2023 07/01/2024 1 1 Reason Comments Received Outside Medical Records [facility] ECHO REPORT Reason Comments Received Outside Medical Records [facility] Reason Comments Insurance Authorization Repatha SureClic k 140MG/ML auto-injectors Reason Comments Follow Up Specialty Diagnoses / Procedures Referred By Contac t Referred To Contact [facility] Diagnoses Coronary artery disease of [place] artery of [place] heart with stable angina pectoris (HCC) SOB (shortness of breath) PAD (peripheral artery disease) (HCC) TIA (transient ischemic attack) Procedures CARDIOVASCULAR MEDICINE OP FOLLOW UP APPT ORDER Shanice Larsen MD [address] [place] [phone] Heart [facility] [place] [facility] [place] [address] Referral ID Status Reason Start Date Expiration Date Visits Requested Visits Authorized [id number] Ref Not Required PCP Requested Referral 01/09/2024 10/09/2024 1 1 Reason Comments Established Patient Specialty Diagnoses / Procedures Referred By Contac t Referred To Contact CT IMAGING Diagnoses Coronary artery disease of [place] artery of [place] heart with stable angina pectoris (HCC) PAD (peripheral artery disease) (HCC) Primary hypertension Hyperlipidemia, unspecified hyperlipidemia type Procedures CT CHEST WO IVCON DIAGNOSTIC COMPUTED TOMOGRAPHY THORAX W/O CNTRST Shanice Larsen MD [address] [place] [address] Ct Imaging [place] [address] Referral ID Status Reason Start Date Expiration Date V isits Requested Visits Authorized [id number] Closed Auto-Generate d Referral 2024 06/23/2024 1 1 Reason Comments Results Source Comments (unrecognize d section and content) In the event this informatio n is protected by the Federal Confidentiality of Alcohol and Drug Abuse Patient Records regulations: The Federal rules restrict any use of the information to criminally investigate or prosecute any alcohol or drug abuse patient.[facility] the event this information is protected by the Federal Confidentiality of Alcohol and Drug Abuse Patient Records regulations: The Federal rules restrict any use of the information to criminally investigate or prosecute any alcohol or drug abuse patient.[facility] CenterIn the event this information is protected by the Federal Confidentiality of Alcohol and Drug Abuse Patient Records regulations: The Federal rules restrict any use of the information to criminally investigate or prosecute any alcohol or drug abuse patient.[facility] CenterIn the event this information is protected by the Federal Confidentiality of Alcohol and Drug Abuse Patient Records regulations: The Federal rules restrict any use of the information to criminally investigate or prosecute any alcohol or drug abuse patient.[facility] CenterIn the event this information is protected by the Federal Confidentiality of Alcohol and Drug Abuse Patient Records regulations: The Federal rules restrict any use of the information to criminally investigate or prosecute any alcohol or drug abuse patient.[facility] CenterIn the event this information is protected by the Federal Confidentiality of Alcohol and Drug Abuse Patient Records regulations: The Federal rules restrict any use of the information to criminally investigate or prosecute any alcohol or drug abuse patient.[facility] CenterIn the event this information is protected by the Federal Confidentiality of Alcohol and Drug Abuse Patient Records regulations: The Federal rules restrict any use of the information to criminally investigate or prosecute any alcohol or drug abuse patient.[facility] CenterIn the event this information is protected by the Federal Confidentiality of Alcohol and Drug Abuse Patient Records regulations: The Federal rules restrict any use of the information to criminally investigate or prosecute any alcohol or drug abuse patient.[facility] CenterIn the event this information is protected by the Federal Confidentiality of Alcohol and Drug Abuse Patient Records regulations: The Federal rules restrict any use of the information to criminally investigate or prosecute any alcohol or drug abuse patient.[facility] CenterIn the event this information is protected by the Federal Confidentiality of Alcohol and Drug Abuse Patient Records regulations: The Federal rules restrict any use of the information to criminally investigate or prosecute any alcohol or drug abuse patient.[facility] CenterIn the event this information is protected by the Federal Confidentiality of Alcohol and Drug Abuse Patient Records regulations: The Federal rules restrict any use of the information to criminally investigate or prosecute any alcohol or drug abuse patient.[facility] CenterIn the event this information is protected by the Federal Confidentiality of Alcohol and Drug Abuse Patient Records regulations: The Federal rules restrict any use of the information to criminally investigate or prosecute any alcohol or drug abuse patient.[facility] CenterIn the event this information is protected by the Federal Confidentiality of Alcohol and Drug Abuse Patient Records regulations: The Federal rules restrict any use of the information to criminally investigate or prosecute any alcohol or drug abuse patient.[facility] CenterIn the event this information is protected by the Federal Confidentiality of Alcohol and Drug Abuse Patient Records regulations: The Federal rules restrict any use of the information to criminally investigate or prosecute any alcohol or drug abuse patient.[facility] CenterIn the event this information is protected by the Federal Confidentiality of Alcohol and Drug Abuse Patient Records regulations: The Federal rules restrict any use of the information to criminally investigate or prosecute any alcohol or drug abuse patient.[facility] CenterIn the event this information is protected by the Federal Confidentiality of Alcohol and Drug Abuse Patient Records regulations: The Federal rules restrict any use of the information to criminally investigate or prosecute any alcohol or drug abuse patient.[facility] CenterIn the event this information is protected by the Federal Confidentiality of Alcohol and Drug Abuse Patient Records regulations: The Federal rules restrict any use of the information to criminally investigate or prosecute any alcohol or drug abuse patient.[facility] CenterIn the event this information is protected by the Federal Confidentiality of Alcohol and Drug Abuse Patient Records regulations: The Federal rules restrict any use of the information to criminally investigate or prosecute any alcohol or drug abuse patient.[facility] CenterIn the event this information is protected by the Federal Confidentiality of Alcohol and Drug Abuse Patient Records regulations: The Federal rules restrict any use of the information to criminally investigate or prosecute any alcohol or drug abuse patient.[facility] CenterIn the event this information is protected by the Federal Confidentiality of Alcohol and Drug Abuse Patient Records regulations: The Federal rules restrict any use of the information to criminally investigate or prosecute any alcohol or drug abuse patient.[facility] CenterIn the event this information is protected by the Federal Confidentiality of Alcohol and Drug Abuse Patient Records regulations: The Federal rules restrict any use of the information to criminally investigate or prosecute any alcohol or drug abuse patient.[facility] CenterIn the event this information is protected by the Federal Confidentiality of Alcohol and Drug Abuse Patient Records regulations: The Federal rules restrict any use of the information to criminally investigate or prosecute any alcohol or drug abuse patient.[facility] CenterIn the event this information is protected by the Federal Confidentiality of Alcohol and Drug Abuse Patient Records regulations: The Federal rules restrict any use of the information to criminally investigate or prosecute any alcohol or drug abuse patient.[facility] CenterIn the event this information is protected by the Federal Confidentiality of Alcohol and Drug Abuse Patient Records regulations: The Federal rules restrict any use of the information to criminally investigate or prosecute any alcohol or drug abuse patient.[facility] CenterIn the event this information is protected by the Federal Confidentiality of Alcohol and Drug Abuse Patient Records regulations: The Federal rules restrict any use of the information to criminally investigate or prosecute any alcohol or drug abuse patient.[facility] CenterIn the event this information is protected by the Federal Confidentiality of Alcohol and Drug Abuse Patient Records regulations: The Federal rules restrict any use of the information to criminally investigate or prosecute any alcohol or drug abuse patient.[facility] CenterIn the event this information is protected by the Federal Confidentiality of Alcohol and Drug Abuse Patient Records regulations: The Federal rules restrict any use of the information to criminally investigate or prosecute any alcohol or drug abuse patient.[facility] CenterIn the event this information is protected by the Federal Confidentiality of Alcohol and Drug Abuse Patient Records regulations: The Federal rules restrict any use of the information to criminally investigate or prosecute any alcohol or drug abuse patient.[facility] CenterIn the event this information is protected by the Federal Confidentiality of Alcohol and Drug Abuse Patient Records regulations: The Federal rules restrict any use of the information to criminally investigate or prosecute any alcohol or drug abuse patient.[facility] CenterIn the event this information is protected by the Federal Confidentiality of Alcohol and Drug Abuse Patient Records regulations: The Federal rules restrict any use of the information to criminally investigate or prosecute any alcohol or drug abuse patient.[facility] CenterIn the event this information is protected by the Federal Confidentiality of Alcohol and Drug Abuse Patient Records regulations: The Federal rules restrict any use of the information to criminally investigate or prosecute any alcohol or drug abuse patient.[facility] CenterIn the event this information is protected by the Federal Confidentiality of Alcohol and Drug Abuse Patient Records regulations: The Federal rules restrict any use of the information to criminally investigate or prosecute any alcohol or drug abuse patient.[facility] CenterIn the event this information is protected by the Federal Confidentiality of Alcohol and Drug Abuse Patient Records regulations: The Federal rules restrict any use of the information to criminally investigate or prosecute any alcohol or drug abuse patient.[facility] CenterIn the event this information is protected by the Federal Confidentiality of Alcohol and Drug Abuse Patient Records regulations: The Federal rules restrict any use of the information to criminally investigate or prosecute any alcohol or drug abuse patient.[facility] CenterIn the event this information is protected by the Federal Confidentiality of Alcohol and Drug Abuse Patient Records regulations: The Federal rules restrict any use of the information to criminally investigate or prosecute any alcohol or drug abuse patient.[facility] CenterIn the event this information is protected by the Federal Confidentiality of Alcohol and Drug Abuse Patient Records regulations: The Federal rules restrict any use of the information to criminally investigate or prosecute any alcohol or drug abuse patient.[facility] CenterIn the event this information is protected by the Federal Confidentiality of Alcohol and Drug Abuse Patient Records regulations: The Federal rules restrict any use of the information to criminally investigate or prosecute any alcohol or drug abuse patient.[facility] CenterIn the event this information is protected by the Federal Confidentiality of Alcohol and Drug Abuse Patient Records regulations: The Federal rules restrict any use of the information to criminally investigate or prosecute any alcohol or drug abuse patient.[facility] FOR RECORDS PERTAINING TO PATIENTS WHO ARE [...] BASED ON THE PRIMARY CLINICAL RECORDS. [facility] [employer] [facility]. provides no warranty or guarantee of the accuracy or completeness of information in this document.
[2024-04-04] MEDS: KETOROLAC TROMETHAMINE 30 MG/ML VIAL 15 MG IVP (13:09)
[2024-04-04 13:40] LABS: Basophils Percent Auto 0.3 % (0.2-2.0); Eosinophils Absolute Auto 0.1 10^3/uL (0.0-0.7); Eosinophils Percent Auto 1.1 % (0.9-7.0); Hematocrit 47.3 % (36.0-48.0); Hemoglobin 15.9 g/dL (12.0-16.0); Immature Granulocytes Abs Auto 0.04 10^3/uL (0.00-0.03); Immature Granulocytes Pct Auto 0.5 % (0.0-0.5); Lymphocytes Absolute Auto 1.7 10^3/uL (1.2-3.8); Mean Corpuscular HGB Conc 33.6 g/dL (29.9-35.2); Mean Corpuscular Hemoglobin 31.7 pg (26.7-34.0); Mean Corpuscular Volume 94.2 fL (81.0-99.0); Mean Platelet Volume 9.2 fL (9.5-13.5); Monocytes Absolute Auto 0.8 10^3/uL (0.3-0.8); Monocytes Percent Auto 8.9 % (1.7-12.0); Neutrophils Absolute Auto 6.2 10^3/uL (1.4-6.5); Neutrophils Percent Auto 70.2 % (43.0-75.0); Platelet Count 240 10^3/uL (150-450); Red Blood Count 5.02 10^6/uL (4.20-5.40); White Blood Count 8.8 10^3/uL (4.0-11.0)
[2024-04-04 13:52] LABS: INR 1.05; Prothrombin Time 11.1 sec (9.0-11.6)
[2024-04-04 13:54] LABS: Alanine Aminotransferase 16 U/L (14-59); Albumin Globulin Ratio 0.9; Albumin Level 3.4 g/dL (3.4-5.0); Alkaline Phosphatase 88 U/L (46-116); Anion Gap 14.6; Aspartate Amino Transferase 12 U/L (15-37); BUN Creatinine Ratio 22.7; Bilirubin Total 0.7 mg/dL (0.2-1.0); Carbon Dioxide 23.9 mmol/L (21.0-32.0); Chloride 97 mmol/L (98-107); Estimated GFR (African America >60 (>=60 mL/min/1.73m^2); Estimated GFR (Non-African Ame >60 (>=60 mL/min/1.73m^2); Globulin 3.6 g/dL; Glucose 103 mg/dL (74-106); Potassium 4.5 mmol/L (3.5-5.1); Sodium 131 mmol/L (136-145)
--- NOTE | 2024-04-04 14:01 | CT_ITS ---
[address] [address] Patient Name: PAULY QUEZADA MRN: [id number] date: 1960 Sex: F Assigned Patient Location: ER Current Patient Location: ER Accession/Order Number: [id number] Exam Date: 04/04/2024 14:45 Report Date: 04/04/2024 16:34 At the request of: JASON GONZALEZ Procedure: CT angio abd aorta runoff EXAM: CT angio abd aorta runoff HISTORY: left foot has no pulse /left hip pain COMPARISON: Prior CTA 02/09/2023. TECHNIQUE: Enhanced helical acquisition obtained during arterial phase from the distal descending thoracic aorta through the bilateral lower extremities with MIP, MPR and 3-D reconstructions. FINDINGS: CTA AORTA WITH BILATERAL LOWER EXTREMITY RUNOFF: Diffuse atherosclerotic disease of the distal descending thoracic aorta with prominent noncalcified mural thrombus. Severe diffuse atherosclerotic disease of the abdominal aorta with prominent noncalcified mural thrombus. Celiac trunk is patent without significant stenosis. Mild stenosis of the proximal SMA. Proximal WATSON is not visualized. Enhancement of the distal branches of the WATSON. Severe stenosis of the proximal left renal artery. Mild stenosis of the proximal right renal artery. Aortobiiliac stents are patent. Moderate-severe multifocal stenoses of the mid and distal left common iliac artery secondary to partially calcified and noncalcified plaques. Severe stenosis proximal left internal iliac artery. Moderate multifocal stenoses of the left external iliac and left common femoral artery. Severe multifocal stenoses throughout the left superficial femoral artery with distal occlusion and reconstitution of the left popliteal artery. Severe multifocal stenoses of the left popliteal artery. Arterial inflow into the left trifurcation. Diffuse atherosclerotic disease of the left infrapopliteal arteries. Single-vessel runoff to the left foot via the left posterior tibial artery. Moderate multifocal stenoses of the right common iliac, right internal iliac, right external iliac and right common femoral artery. Severe stenoses of the proximal right superficial femoral artery with proximal occlusion. Reconstitution of the right popliteal artery via profunda femoris artery collaterals. Severe multifocal stenoses of the right popliteal artery. Arterial inflow into the right trifurcation. Diffuse atherosclerotic disease of the right infrapopliteal arteries. Two-vessel runoff to the right foot via the right anterior tibial and right peroneal artery. CT ABDOMEN: Mild bibasilar pulmonary scarring. The pleural spaces are clear. Unremarkable gallbladder. No significant biliary ductal dilatation. 9 mm enhancing focus within hepatic segment 7 which is not optimally assessed, likely relating to atypically enhancing hemangioma. Allowing for the early arterial phase of imaging, the spleen, pancreas and the adrenal glands are unremarkable. Mild bilateral renal cortical scarring. A 1.4 cm cyst within the inferior left renal cortex. No enlarged lymph nodes within the abdomen. CT PELVIS: Normal appendix. Diverticulosis without radiographic evidence of diverticulitis. No ascites or focal intraperitoneal fluid collections. No enlarged lymph nodes within the pelvis. CT/CT angio abd aorta runoff IMPRESSION: 1. Moderate-severe multifocal stenoses of the mid and distal left common iliac artery secondary to partially calcified and noncalcified plaques. Severe stenosis proximal left internal iliac artery. Moderate multifocal stenoses of the left external iliac and left common femoral artery. Severe multifocal stenoses throughout the left superficial femoral artery with distal occlusion and reconstitution of the left popliteal artery. Severe multifocal stenoses of the left popliteal artery. Arterial inflow into the left trifurcation. Diffuse atherosclerotic disease of the left infrapopliteal arteries. Single-vessel runoff to the left foot via the left posterior tibial artery. 2. Moderate multifocal stenoses of the right common iliac, right internal iliac, right external iliac and right common femoral artery. Severe stenoses of the proximal right superficial femoral artery with proximal occlusion. Reconstitution of the right popliteal artery via profunda femoris artery collaterals. Severe multifocal stenoses of the right popliteal artery. Arterial inflow into the right trifurcation. Diffuse atherosclerotic disease of the right infrapopliteal arteries. Two-vessel runoff to the right foot via the right anterior tibial and right peroneal artery. 3. Diffuse atherosclerotic disease of the distal descending thoracic aorta with prominent noncalcified mural thrombus. Severe diffuse atherosclerotic disease of the abdominal aorta with prominent noncalcified mural thrombus. Celiac trunk is patent without significant stenosis. Mild stenosis of the proximal SMA. Proximal WATSON is not visualized. Enhancement of the distal branches of the WATSON. 4. Severe stenosis of the proximal left renal artery. Mild stenosis of the proximal right renal artery. 5. Subcentimeter enhancing focus within the right hepatic lobe which is not optimally assessed given the early arterial phase of imaging and small size, likely atypically enhancing hepatic hemangioma. 6. Diverticulosis without radiographic evidence of diverticulitis. 7. Left renal cyst. Electronically authenticated by: GUS SANDERSON Date: 04/04/2024 16:34
--- NOTE | 2024-04-04 14:22 | ED.LOWEXI1 ---
HPI HPI - Extremity Injury (Lower) General Chief Complaint: Extremity Injury, Lower Stated Complaint: LOWER LEFT EXTREMITY PAIN Time Seen by Provider: 04/04/24 11:24 Source: patient Mode of arrival: Wheelchair Limitations: no limitations History of Present Illness HPI Narrative: The patient have a history of coronary artery disease as well as peripheral vascular disease with a old history of embolectomy as per her explanation after she had a left femoral embolus, the patient is coming to us today with a left hip pain that started yesterday after she had a fall she mentioned that she tripped , after the dog jumped on her She fell backward and she mentioned that she has not been able to stand up since then because of the pain she mentioned that she have a old oxycodone that she took and it did not help her symptoms The patient have history of coronary artery disease and she also mentioned that she have a history of peripheral vascular disease and she plan to have surgery after cardiac clearance Related Data Home Medications ?Medication ?Instructions ?Recorded ?Confirmed albuterol sulfate 90 mcg/actuation 2 puff inhalation Q6H PRN 03/31/23 04/04/24 aerosol inhaler (Ventolin HFA) shortness of breath or wheezing clopidogrel 75 mg tablet 75 mg PO DAILY 03/31/23 04/04/24 dulaglutide 0.75 mg/0.5 mL 0.75 mg subcut .weekly 03/31/23 04/04/24 subcutaneous pen injector (Trulicity) empagliflozin 10 mg tablet 10 mg PO DAILY 03/31/23 04/04/24 (Jardiance) ezetimibe 10 mg tablet 10 mg PO DAILY 03/31/23 04/04/24 metformin 1,000 mg tablet 1,000 mg PO BID 03/31/23 04/04/24 venlafaxine 75 mg capsule,extended 75 mg PO DAILY 03/31/23 04/04/24 release 24 hr calcium carbonate 500 mg PO DAILY 09/26/23 04/04/24 docusate sodium 100 mg capsule 100 mg PO BID 09/26/23 04/04/24 metoprolol succinate 50 mg 25 mg PO BID 09/26/23 04/04/24 tablet,extended release 24 hr Previous Rx's ?Medication ?Instructions ?Recorded ondansetron 4 mg disintegrating 4 mg PO Q6H PRN nausea and 03/31/23 tablet vomiting #20 tabs aspirin 81 mg chewable tablet 325 mg (4.0123 x 81 mg) PO DAILY 09/27/23 #30 tabs lisinopril 20 mg tablet 20 mg PO QD #30 tabs 09/27/23 tramadol 50 mg tablet 50 mg PO Q8H PRN pain #9 tabs 04/04/24 Allergies Allergy/AdvReac Type Severity Reaction Status Date / Time Tetracyclic Antidepressants AdvReac Severe Vomiting Verified 03/03/23 11:00 Opioid HPI Opioid Management Most Recent Pain and Opioid Data: Last Pain Scale 7 04/04/24 13:09 04/04/24 Last MAR Pain Assessment 04/04/24 13:09 Last ORT Total Score 1 09/26/23 17:09 09/26/23 Last ORT Risk Category Low Risk 09/26/23 17:09 09/26/23 Review of Systems ROS Status of ROS 10 or more systems reviewed and unremarkable except as noted in history and below [facility] Medical History (Updated 04/04/24 @ 16:43 by Shanelle Kellogg MD) Stroke ?I63.9 - Cerebral infarction, unspecified (ICD-10) Abdominal pain ?R10.9 - Unspecified abdominal pain (ICD-10) Nausea & vomiting ?R11.2 - Nausea with vomiting, unspecified (ICD-10) Blood clot in leg Retinopathy ?H35.00 - Unspecified background retinopathy (ICD-10) Hypertension ?I10 - Essential (primary) hypertension (ICD-10) Hyperlipidemia ?E78.5 - Hyperlipidemia, unspecified (ICD-10) Diabetes ?E11.9 - Type 2 diabetes mellitus without complications (ICD-10) Surgical History (Updated 09/26/23 @ 16:55 by Cindy Mejia) H/O tubal ligation ?Z98.51 - Tubal ligation status (ICD-10) Hx of adenoidectomy ?Z90.89 - Acquired absence of other organs (ICD-10) Hx of tonsillectomy ?Z90.89 - Acquired absence of other organs (ICD-10) Carpal tunnel syndrome, bilateral ?G56.03 - Carpal tunnel syndrome, bilateral upper limbs (ICD-10) History of quadruple bypass ?Z95.1 - Presence of aortocoronary bypass graft (ICD-10) Family History (Updated 09/26/23 @ 16:57 by Cindy Mejia) Brother Family history of cancer Grandmother Family history of diabetes mellitus Father Family history of diabetes mellitus Family history of hypertension Family history of myocardial infarction Mother Family history of hypertension Family history of myocardial infarction Social History (Updated 09/26/23 @ 17:01 by Cindy Mejia) Within the past year, how often did you have a drink containing alcohol: 2-3 times a week Within the past year, how many standard drinks containing alcohol did you have on a typical day: 1 or 2 Within the past year, how often did you have six or more drinks on one occasion: never Total score: 0 Score interpretation: Questions 2 and 3 are 0. It can be assumed that the patient's drinking is below the recommended limits. However, please confirm the accuracy of the patient's alcohol intake over the last few months. Smoking status: Current every day smoker Non-prescribed substance use: cannabis (any form) Previous occupational history: retired Highest level of school completed/degree received: some college, no degree Are you now , , , , never or living with a partner: never In a typical week, how many times do you talk on the telephone with family, friends, or neighbors: 3 or more times per week How often do you get together with friends or relatives: 3 or more times per week How often do you attend jehovah's witness or rastafarian services: 4 or more times per year Do you belong to any clubs or organizations such as jehovah's witness groups unions, fraternal or athletic groups, or school groups: no Total score: 2 Score interpretation: A score of greater than or equal to 2 indicates the lowest level of social isolation. Little interest or pleasure in doing things: not at all Feeling down, depressed, or hopeless: not at all Feel stressed/tense/nervous/anxious/difficulty sleeping: only a little Exam Narrative Exam Narrative: Nurses notes and vital signs reviewed and patient is not hypoxic. Left hip and lower extremity examination: The patient have tenderness upon palpation of the left hip there is also pain with movement flexion mostly of the hip. The patient have a scar in the area of the femoral artery and vein for previous surgery and there was a good femoral pulse detected also with the ultrasound The patient left feet was cold up to the level of the mid tibia and fibula at least and the patient pulse was not detected by Doppler even with bedside ultrasound I could not detect arterial pulsation but the patient have no tenderness upon palpation of the lower extremity General: Well-appearing and in no apparent distress. Skin: Warm, dry, no pallor noted. No rash. Head: Normocephalic, atraumatic. Neck: Supple, non-tender. Eye: Pupils are equal, round and EOMI. No scleral icterus. Ears, Nose, Mouth, and Throat: TM are clear, no nasal mucosal hypertrophy. Oral mucosa is moist, no posterior oropharynx erythema, uvula is mid-line Cardiovascular: Regular Rate and Rhythm without murmur, gallop or rub. Respiratory: No accessory muscle use or respiratory distress. Lungs are clear to auscultation, no wheezing, rales or rhonchi Chest Wall: no tenderness Back: No midline thoracic or lumbar vertebral tenderness. No CVA tenderness GI: Abdomen is soft, non-distended. Normal bowel sounds. No masses appreciated. No tenderness to palpation. No rebound, guarding, or rigidity noted. Neurological: A&O x4. No cranial nerve dysfunction observed. Constitutional Vital Signs, click to edit/add: Last Vital Signs Temp 98.0 F 04/04/24 11:20 Pulse 88 04/04/24 11:20 Resp 16 04/04/24 11:20 BP 140/70 04/04/24 11:20 Pulse Ox 98 04/04/24 11:20 O2 Del Method Room Air 04/04/24 11:20 Course Vital Signs Vital signs: Vital Signs Temperature 98.0 F 04/04/24 11:20 Pulse Rate 88 04/04/24 11:20 Respiratory Rate 16 04/04/24 11:20 Blood Pressure 140/70 04/04/24 11:20 Pulse Oximetry 98 04/04/24 11:20 Oxygen Delivery Method Room Air 04/04/24 11:20 Temperature 98.0 F 04/04/24 11:20 Pulse Rate 88 04/04/24 11:20 Respiratory Rate 16 04/04/24 11:20 Blood Pressure 140/70 04/04/24 11:20 Pulse Oximetry 98 04/04/24 11:20 Oxygen Delivery Method Room Air 04/04/24 11:20 MDM - Extremity Injury (Lower) MDM Narrative Medical decision making narrative: The patient presented to us with a fall and hip pain which could be secondary to contusion but with the patient history of coronary artery disease and peripheral vascular disease and her presentation with the left cold feet the patient had no acute complaint regarding that and she mentioned that she had a history of peripheral vascular disease needing surgery but apparently it is delayed till she have cardiac clearance The patient case was discussed with Dr. Riley from vascular service and he recommended CT angio of the lower extremity that showed multiple stenosis but no complete occlusion The patient was feeling much better after she was treated with Toradol Her blood workup showed no acute significant pathology The patient was discharged to follow-up with Dr. Riley within few days also instructed about the importance of keeping monitoring of her lower extremity color as well Patient discharged home with tramadol for pain The patient is to follow up with primary care physician in next 2-3 days or to return to the emergency department should any of the signs or symptoms worsen or new symptoms develop. The patient agrees with the following Diagnosis and Treatment plan and the patient will be discharged home. Lab Data Labs: Lab Results 04/04/24 Range/Units 13:31 WBC 8.8 (4.0-11.0) 10^3/uL RBC 5.02 (4.20-5.40) 10^6/uL Hgb 15.9 (12.0-16.0) g/dL Hct 47.3 (36.0-48.0) % MCV 94.2 (81.0-99.0) fL MCH 31.7 (26.7-34.0) pg MCHC 33.6 (29.9-35.2) g/dL RDW 12.0 (11.0-15.0) % Plt Count 240 (150-450) 10^3/uL MPV 9.2 L (9.5-13.5) fL Neut % (Auto) 70.2 (43.0-75.0) % Lymph % (Auto) 19.0 L (20.5-60.0) % Moody % (Auto) 8.9 (1.7-12.0) % Eos % (Auto) 1.1 (0.9-7.0) % Baso % (Auto) 0.3 (0.2-2.0) % Neut # (Auto) 6.2 (1.4-6.5) 10^3/uL Lymph # (Auto) 1.7 (1.2-3.8) 10^3/uL Moody # (Auto) 0.8 (0.3-0.8) 10^3/uL Eos # (Auto) 0.1 (0.0-0.7) 10^3/uL Baso # (Auto) 0.0 (0.0-0.1) 10^3/uL Abs Immat Gran (auto) 0.04 H (0.00-0.03) 10^3/uL Imm/Tot Granulo (auto) 0.5 (0.0-0.5) % PT 11.1 (9.0-11.6) sec INR 1.05 Sodium 131 L (136-145) mmol/L Potassium 4.5 (3.5-5.1) mmol/L Chloride 97 L (98-107) mmol/L Carbon Dioxide 23.9 (21.0-32.0) mmol/L Anion Gap 14.6 BUN 20.0 H (7.0-18.0) mg/dL Creatinine 0.88 (0.55-1.02) mg/dL Est GFR ( Amer) >60 (>=60 mL/min/1.73m^2) Est GFR (Non-Af Amer) >60 (>=60 mL/min/1.73m^2) BUN/Creatinine Ratio 22.7 Glucose 103 (74-106) mg/dL Lactate 1.0 (0.4-2.0) mmol/L Calcium 10.0 (8.5-10.1) mg/dL Total Bilirubin 0.7 (0.2-1.0) mg/dL AST 12 L (15-37) U/L ALT 16 (14-59) U/L Alkaline Phosphatase 88 (46-116) U/L Total Protein 7.0 (6.4-8.2) g/dL Albumin 3.4 (3.4-5.0) g/dL Globulin 3.6 g/dL Albumin/Globulin Ratio 0.9 Discharge Plan Discharge Chief Complaint: Extremity Injury, Lower Clinical Impression: Acute hip pain, Asymptomatic PVD (peripheral vascular disease) Patient Disposition: Home, Self-Care Time of Disposition Decision: 16:43 Condition: Good Prescriptions / Home Meds: New tramadol 50 mg tablet 50 mg PO Q8H PRN (Reason: pain) Qty: 9 0RF No Action Trulicity 0.75 mg/0.5 mL pen injector 0.75 mg SUBCUT .weekly ezetimibe 10 mg tablet 10 mg PO DAILY venlafaxine 75 mg capsule,extended release 24hr 75 mg PO DAILY metformin 1,000 mg tablet 1,000 mg PO BID Jardiance 10 mg tablet 10 mg PO DAILY clopidogrel 75 mg tablet 75 mg PO DAILY albuterol sulfate [Ventolin HFA] 90 mcg/actuation HFA aerosol inhaler 2 puff INHALATION Q6H PRN (Reason: shortness of breath or wheezing) ondansetron 4 mg tablet,disintegrating 4 mg PO Q6H PRN (Reason: nausea and vomiting) Qty: 20 0RF docusate sodium 100 mg capsule 100 mg PO BID calcium carbonate 500 mg calcium (1,250 mg) tablet,chewable 500 mg PO DAILY lisinopril 20 mg Tablet 20 mg PO QD Qty: 30 11RF aspirin 81 mg Tablet,Chewable 325 mg PO DAILY Qty: 30 11RF metoprolol succinate 50 mg tablet extended release 24 hr 25 mg PO BID Print Language: Thai Instructions: Peripheral Artery Disease (ED), Hip Pain (ED) Referrals: Froylan Muhammad MD [Primary Care Provider] - 1 week [place] Riley MD [Physician] - As soon as possible ([address] [place] [id number] phone number [phone]) Discharge Date/Time: 04/04/24 16:59
== END 2024-04-04 16:59 | disposition home or self-care (01) ==
PROVIDERS: Emergency Provider Emergency Medicine; PCP Family Medicine
DX: M25.552 Pain in left hip (principal); I73.9 Peripheral vascular disease, unspecified; I25.10 Atherosclerotic heart disease of native coronary artery without angina pectoris; F17.200 Nicotine dependence, unspecified, uncomplicated; Z91.81 History of falling
CPT/HCPCS: 36415; 73502; 75635; 80053; 83605; 85025; 85610; 96374; 99285; J1885; Q9967

== ENCOUNTER 2024-04-14 12:03 | Outpatient (OUT) | payer OTHER, SELFPAY ==
--- OUTSIDE RECORDS SUMMARY | 2024-04-14 12:10 | XMS_ITS | CCD ---
Author Organization [facility] Care Team Providers Care Hair Or Beauty Salon Assistant Name Role Phone Nano Nguyen Primary Care [...] MCGILL Admitting Unavailable Shawn Graff Consulting Unavailable [place], DR NISA Lainez Consulting Unavailable ROBERTAY ., [...] Provider MD Nano Nguyen Primary Care Provider [phone] Patrizia Melendrez Unavailable Patrizia Melendrez Attending Unavailable Nano Nguyen M Primary Care Unavailable Patrizia Melendrez Admitting Unavailable Patrizia Melendrez Attending Unavailable Nano Nguyen Primary Care Unavailable Patrizia Melendrez Admitting Unavailable Shanice Larsen MD Unavailable Erick LAMB, Willem Unavailable Shanice Larsen MD Unavailable Unavailable Nano Nguyen MD Primary Care Provider [phone] Suzie LAMB [place] Unavailable Nano Nguyen MD Primary Care Provider [phone] NANO NGUYEN Primary Care Unavailable NANO NGUYEN Referring Unavailable NANO NGUYEN M Primary Care Unavailable NANO NGUYEN M Referring Unavailable NANO NGUYEN M Primary Care Unavailable Nano Nguyen MD Primary Care Provider [phone] TRIPP HUTSON Attending Unavailable NANO NGUYEN M Primary Care Unavailable SHANICE LARSEN Referring Unavailable PAPA SANTIAGO Attending Unavailable NANO NGUYEN M Primary Care Unavailable BARZILAI, BENICO Referring Unavailable BARZILAI, BENICO Attending Unavailable HOY, NANO M Primary Care [...] Care Unavailable BAKAEEN, WILLEM Referring Unavailable BAKAEEN, IWLLEM Attending Unavailable HOY, NANO M Primary Care Unavailable BARZILAI, BENICO Referring Unavailable HOY, NANO M Primary Care Unavailable DILLE, PAMELA Referring Unavailable BARZILAI, BENICO Attending Unavailable HOY, NANO M Primary Care Unavailable GLORIA CALLAHAN Attending Unavailable HOY, NANO M Primary Care Unavailable BARZILAI, BENICO Referring Unavailable BARZILAI, BENICO Referring Unavailable BARZILAI, BENICO Attending Unavailable BAKAEEN, WILLEM Referring Unavailable BAKAEEN, WILLEM Referring Unavailable BAKAEEN, WILLEM Referring Unavailable BAKAEEN, WILLEM Referring Unavailable BAKAEEN, WILLEM Referring Unavailable HOY, NANO M Primary Care Unavailable BAKAEEN, WILLEM Referring Unavailable AMBANI, PAPA Attending Unavailable HOY, NANO M Primary Care Unavailable BAKAEEN, WILLEM Referring Unavailable HOY, NANO M Primary Care Unavailable SELF Referring Unavailable AMBANI, PAPA Attending Unavailable HOY, NANO M Primary Care Unavailable BARZILAI, BENICO Referring Unavailable HOY, NANO M Primary Care Unavailable BARZILAI, BENICO Referring Unavailable BARZILAI, BENICO Attending Unavailable HOY, NANO M Primary Care Unavailable AMBANI, PAPA Referring Unavailable HOY, NANO M Primary Care Unavailable BARZILAI, BENICO Referring Unavailable DILLE, PAMELA Attending Unavailable BARZILAI, BENICO Referring Unavailable HOY, NANO M Primary Care Unavailable BARZILAI, BENICO Referring Unavailable HOY, NANO M Primary Care Unavailable BAKAEEN, WILLEM Referring Unavailable BAKAEEN, WILLEM Attending Unavailable HOY, NANO M Primary Care Unavailable AMBANI, PAPA Referring Unavailable BARZILAI, BENICO Referring Unavailable BARZILAI, BENICO Attending Unavailable HOY, NANO M Primary Care Unavailable CHRISFRANTZ Referring Unavailable HOY, NANO M Primary Care Unavailable GLORIA CALLAHAN Attending Unavailable BAKAEEN, WILLEM Referring Unavailable BAKAEEN, WILLEM Referring Unavailable HOY, NANO M Primary Care Unavailable BAKAEEN, WILLEM Attending Unavailable BAKAEEN, WILLEM Admitting Unavailable HOY, NANO M Primary Care Unavailable DUKE SHEEHAN Referring Unavailable DANIA CRUZ Attending Unavailable Allergies Allergy Classification Reported Allergen(s) Allergy Type Date of Onset Reaction(s) Facility (20 sources) Tetracycline; Translations: [tetracycline] Drug Allergy 3 Unknown, GI Upset [facility] (2 sources) rosuvastatin; Translations: [ROSUVASTATIN] Drug Allergy 0 The [facility] (1 source) SITagliptin Drug Allergy 0 The [facility] (1 source) Tetracycline Drug Allergy The [facility] (3 sources) House dust mite Drug allergy Unknown [employer] Other (4 sources) Cat dander; Translations: [CAT DANDER] Drug allergy 3 Unknown [facility] (1 source) Tetracycline Drug Allergy 3 [facility] Repository (20 sources) [place] house dust mite allergenic extract / house dust mite allergenic extract; Translations: [ALLERG XT,D.FARINAE-D.P TERONYS] Drug Allergy 3 Itching [facility] (20 sources) Cat Hair Extract; Translations: [CAT HAIR STANDARDIZED ALLERGENIC EXTRACT] Drug Allergy 3 Itching [facility] (20 sources) house dust allergenic extract; Translations: [HOUSE DUST] Drug Allergy 3 Itching [facility] (20 sources) rosuvastatin Drug Allergy 0 Unknown [facility] (20 sources) SITagliptin; Translations: [SITAGLIPTIN] Drug Allergy 0 Unknown [facility] (9 sources) Miconazole; Translations: [MICONAZOLE] Drug Allergy 4 Itching, Swelling [facility] Medications Current Medications Medication Drug Class(es) Dates [...] hours as needed (for mild surgical pain). [id number] 200 actuat albuterol 0.09 mg/actuat metered dose [...] mouth once daily. Take 1 tablet by [facility] once daily. Calcium (2 sources) Phosphate Binder, [...] 0 03/07/2023 Suspended take 2 tablets by [facility] every twelve hours Carvedilol 6.25 [...] 20, 2023 12:00am take 1 capsule by [facility] every twenty-four hours Vitamin D3 1000 UNIT [...] on above: Take 1 capsule by [facility] two times a day. 0.5 ml [...] Comment on above: Take 2 tablets by [facility] once daily for 14 days. metFORMIN hydrochloride 1000 mg oral tablet (20 sources) Biguanide Start: 03-20-2023 take 1000 mg by mouth once daily Metformin Active 1000 MG PO Daily March 20, 2023 12:00am Start: 03-07-2023 take 1 tablet by [facility] twice daily metFORMIN (GLUCOPHAGE) 1,000 mg tablet Take 1,000 mg by mouth two times a day. 03/07/2023 Active Start: 04-12-2022 take 2 tablets by [facility] once daily metFORMIN HCl - 1000 MG Oral Tablet TAKE 2 TABLET Daily Quantity: 0 Refills: 0 Ordered: 12-Apr-2022 DO Start : 12-Apr-2022 Active Comment on above: Take 1,000 mg by [facility] two times a day. 24 hr metoprolol [...] Active oxybutynin chloride 5 mg oral tablet (13 sources) Cholinergic Muscarinic Antagonist Start: 03-20-2023 oxybutynin (DITROPAN) 5 mg tablet two times a day. 03/20/2023 Active Start: 02-10-2021 take 2 tablets by [facility] once daily oxyBUTYnin Chloride 5 [...] 2023 12:00am take 1 capsule by mo [facility] once daily at mealtime Potassium Gluconate [...] by mouth two times a day. Trospium (7 sources) Cholinergic Muscarinic Antagonist trospium chloride (TROSPIUM [...] on above: Take 1 capsule by mo [facility] once daily. Completed/Discontinued Medications Medication Drug [...] 1:03pm Start: 08-16-2021 take 1 tablet by [facility] every six hours as needed IBU [...] artery disease; Translations: [Atherosclerotic heart disease of [place] coronary artery without angina pectoris] Onset: 05-28-2023 04-26-2023 Chronic Diabetes mellitus with complications (11 [...] [S/P insertion of iliac artery stent] Onset: 07-02-2023 Chronic Other circulatory disease (5 sources) Other [...] MASS AND LUMP NECK] Onset: 10-01-2022 Episodic Pathological fracture (1 source) Fracture of sternum; Translations: [Pathological fracture, other site, subsequent encounter for fracture with malunion] 04-07-2024 Episodic Peripheral and visceral atherosclerosis (20 sources) [...] of procedure; Translations: [Coronary angioplasty status] Onset: 07-02-2023 06-03-2023 Episodic Fluid and electrolyte disorders (20 [...] Reference Range Facility CNPTOUTREACHon 02-26-2024 CNPTOUTREACH Normal [facility] CNPNon 02-25-2024 CNPN Normal [facility] CT CHEST WO IVCONon 02-18-20 CT CHEST WO IVCON Normal [facility] CNPTOUTREACHon 02-04-2024 CNPTOUTREACH Normal [facility] CNOVon 01-28-2024 CNOV Normal [facility] PVR LEG LOVE VAS LABon 2023 PVR LEG LOVE VAS LAB Normal [facility] CNOVon 01-16-2024 CNOV Normal [facility] ECG COMPLETEon 01-16-2024 ECG COMPLETE Normal [facility] CNPNon 01-01-2024 CNPN Normal [facility] CNPTOUTREACHon 10-30-2023 CNPTOUTREACH Normal [facility] CNPNon 10-25-2023 CNPN Normal [facility] CNPTOUTREACHon 10-24-2023 CNPTOUTREACH Normal [facility] CNPNon 10-18-2023 CNPN Normal [facility] CNPNon 10-17-2023 CNPN Normal [facility] CNOVon 10-10-2023 CNOV Normal [facility] CT CHEST WO IVCONon 10-10-19 CT CHEST WO IVCON Normal [facility] ECG COMPLETEon 10-10-2023 ECG COMPLETE Normal [facility] CNPNon 09-23-2023 CNPN Normal [facility] CNPTOUTREACHon 09-03-2023 CNPTOUTREACH Normal [facility] CNPNon 08-23-2023 CNPN Normal [facility] CNPNon 08-08-2023 CNPN Normal [facility] CBC panel Auto (Bld)on 08-07 Erythrocyte distribution width (RBC) [Ratio] 13.2 % Normal 11.5-15.0 [facility] Comment on above: Order Comment: Speci men Type: BLOOD SPECIMENOrdering Facility: [facility] Address: [address] [place] [address] Performed By: #### 5 8410-2 ####[facility] [id number] [place] [address] [place] Hematocrit (Bld) [Volume fraction] 32.4 % Low 36.0-46.0 [facility] Comment on above: Order Comment: Speci men Type: BLOOD SPECIMENOrdering Facility: [facility] Address: [address] [place] [address] Performed By: #### 5 8410-2 ####[facility] [id number] [place] [address] [place] Hemoglobin (Bld) [Mass/Vol] 10.4 g/dL Low 11.5-15.5 [facility] Comment on above: Order Comment: Speci men Type: BLOOD SPECIMENOrdering Facility: [facility] Address: [address] [place] [address] Performed By: #### 5 8410-2 ####[facility] [id number] [place] [address] [place] MCH (RBC) [Entitic mass] 31.0 pg Normal 26.0-34.0 [facility] Comment on above: Order Comment: Speci men Type: BLOOD SPECIMENOrdering Facility: [facility] Address: [address] [place] [address] Performed By: #### 5 8410-2 ####[facility] [id number] [place] [address] [place] MCHC (RBC) [Mass/Vol] 32.1 g/dL Normal 30.5-36.0 [facility] Comment on above: Order Comment: Speci men Type: BLOOD SPECIMENOrdering Facility: [facility] Address: [address] [place] [address] Performed By: #### 5 8410-2 ####[facility] [id number] [place] [address] [place] MCV (RBC) [Entitic vol] 96.4 fL Normal 80.0-100.0 [facility] Comment on above: Order Comment: Speci men Type: BLOOD SPECIMENOrdering Facility: [facility] Address: [address] [place] [address] Performed By: #### 5 8410-2 ####[facility] [id number] [place] [address] [place] Nucleated RBC (Bld) [#/Vol] 10*3/uL Normal <0.01 [facility] Comment on above: Order Comment: Speci men Type: BLOOD SPECIMENOrdering Facility: [facility] Address: [address] [place] [address] Performed By: #### 5 8410-2 ####[facility] [id number] [place] [address] [place] Platelet mean volume (Bld) [Entitic vol] 9.3 fL Normal 9.0-12.7 [facility] Comment on above: Order Comment: Speci men Type: BLOOD SPECIMENOrdering Facility: [facility] Address: [address] [place] [address] Performed By: #### 5 8410-2 ####[facility] [id number] [place] [address] [place] Platelets (Bld) [#/Vol] 392 10*3/uL Normal 150-400 [facility] Comment on above: Order Comment: Speci men Type: BLOOD SPECIMENOrdering Facility: [facility] Address: [address] [place] [address] Performed By: #### 5 8410-2 ####[facility] [id number] [place] [address] [place] RBC (Bld) [#/Vol] 3.36 10*6/uL Low 3.90-5.20 [facility] Comment on above: Order Comment: Speci men Type: BLOOD SPECIMENOrdering Facility: [facility] Address: [address] [place] [address] Performed By: #### 5 8410-2 ####[facility] [id number] [place] [address] [place] WBC (Bld) [#/Vol] 7.17 10*3/uL Normal 3.70-11.00 [facility] Comment on above: Order Comment: Speci men Type: BLOOD SPECIMENOrdering Facility: [facility] Address: [address] [place] [address] Performed By: #### 5 8410-2 ####[facility] [id number] [place] [address] [place] CNOVon 08-07-2023 CNOV Normal [facility] metabolic 2000 panelon 08-07-2023 Albumin [Mass/Vol] 3.8 g/dL Low 3.9-4.9 [facility] Comment on above: Order Comment: Speci men Type: BLOOD SPECIMENOrdering Facility: [facility] Address: [address] [place] [address] Performed By: #### 2 4323-8 ####[facility] [id number] [place] [address] [place] ALP [Catalytic activity/Vol] 93 U/L Normal 34-123 [facility] Comment on above: Order Comment: Speci men Type: BLOOD SPECIMENOrdering Facility: [facility] Address: [address] [place] [address] Performed By: #### 2 4323-8 ####[facility] [id number] [place] [address] [place] ALT [Catalytic activity/Vol] 21 U/L Normal 7-38 [facility] Comment on above: Order Comment: Speci men Type: BLOOD SPECIMENOrdering Facility: [facility] Address: [address] [place], [place] [address] Performed By: #### 2 4323-8 ####[facility] [id number] [place] [id number] [place] Anion gap [Moles/Vol] 14 mmol/L Normal 9-18 [facility] Comment on above: Order Comment: Speci men Type: BLOOD SPECIMENOrdering Facility: [facility] Address: [address] [place] [address] Performed By: #### 2 4323-8 ####[facility] [id number] [place] [id number] [place] AST [Catalytic activity/Vol] 14 U/L Normal 13-35 [facility] Comment on above: Order Comment: Speci men Type: BLOOD SPECIMENOrdering Facility: [facility] Address: [address] [place] [address] Performed By: #### 2 4323-8 ####[facility] [id number] [place] [address] [place] Bilirubin [Mass/Vol] 0.3 mg/dL Normal 0.2-1.3 [facility] Comment on above: Order Comment: Speci men Type: BLOOD SPECIMENOrdering Facility: [facility] Address: [address] [place] [address] Performed By: #### 2 4323-8 ####[facility] [id number] [place] [address] [place] Calcium [Mass/Vol] 10.3 mg/dL High 8.5-10.2 [facility] Comment on above: Order Comment: Speci men Type: BLOOD SPECIMENOrdering Facility: [facility] Address: [address] [place] [address] Performed By: #### 2 4323-8 ####[facility] [id number] [place] [address] [place] Chloride [Moles/Vol] 95 mmol/L Low 97-105 [facility] Comment on above: Order Comment: Speci men Type: BLOOD SPECIMENOrdering Facility: [facility] Address: [address] [place] [address] Performed By: #### 2 4323-8 ####[facility] [id number] [place] [address] [place] CO2 [Moles/Vol] 26 mmol/L Normal 22-30 [facility] Comment on above: Order Comment: Speci men Type: BLOOD SPECIMENOrdering Facility: [facility] Address: [address] [place] [address] Performed By: #### 2 4323-8 ####[facility] [id number] [place] [address] [place] Creatinine [Mass/Vol] 0.90 mg/dL Normal 0.58-0.96 [facility] Comment on above: Order Comment: Phyllis stein Type: BLOOD SPECIMENOrdering Facility: [facility] Address: [address] [place] [address] Performed By: #### 2 4323-8 ####[facility] [id number] [place] [address] [place] Creatinine and Glomerular filtration rate.predicted panel (S/P/Bld) 71 mL/min/1.73m??? Normal >=60 [facility] Comment on above: Order Comment: Phyllis stein Type: BLOOD SPECIMENOrdering Facility: [facility] Address: [address] [place] [address] Result Comment: Annelise mated Glomerular Filtration Rate [...] actual GFR. Performed By: #### 2 4323-8 ####[facility] [id number] [place] [address] [place] Glucose [Mass/Vol] 180 mg/dL High 74-99 [facility] Comment on above: Order Comment: Phyllis stein Type: BLOOD SPECIMENOrdering Facility: [facility] Address: [address] [place] [address] Result Comment: The [place] Diabetes Association (ADA) provides guidance for cutoff [...] Standards of Medical Care in Diabetes 2016, [place] [employer] Association. Diabetes Care. 2016.39(Suppl 1). Performed By: #### 2 4323-8 ####[facility] [id number] [place] [address] [place] Potassium [Moles/Vol] 4.1 mmol/L Normal 3.7-5.1 [facility] Comment on above: Order Comment: Speci men Type: BLOOD SPECIMENOrdering Facility: [facility] Address: [address] [place] [address] Performed By: #### 2 4323-8 ####[facility] [id number] [place] [address] [place] Protein [Mass/Vol] 6.6 g/dL Normal 6.3-8.0 [facility] Comment on above: Order Comment: Speci men Type: BLOOD SPECIMENOrdering Facility: [facility] Address: [address] [place] [address] Performed By: #### 2 4323-8 ####[facility] [id number] [place] [address] [place] Sodium [Moles/Vol] 135 mmol/L Low 136-144 [facility] Comment on above: Order Comment: Speci men Type: BLOOD SPECIMENOrdering Facility: [facility] Address: [address] [place] [address] Performed By: #### 2 4323-8 ####[facility] [id number] [place] [id number] [place] Urea nitrogen [Mass/Vol] 19 mg/dL Normal 7-21 [facility] Comment on above: Order Comment: Speci men Type: BLOOD SPECIMENOrdering Facility: [facility] Address: [address] [place] [address] Performed By: #### 2 4323-8 ####[facility] [id number] [place] [address] [place] ECG COMPLETEon 08-07-2023 ECG COMPLETE Normal [facility] XR CHEST 2V FRONTAL/LATon XR CHEST 2V FRONTAL/LAT Normal [facility] XR Chest 2 Viewson [facility] CNPNon 08-06-2023 CNPN Normal [facility] ALLIED HEALTHon 08-02-2023 ALLIED HEALTH Normal [facility] CASE MANAGEMon 08-02-2023 CASE MANAGEM Normal [facility] CASE MANAGEM Normal [facility] CBC panel Auto (Bld)on 08-02 Erythrocyte distribution width (RBC) [Ratio] 12.1 % Normal 11.5-15.0 [facility] Comment on above: Order Comment: Speci men Type: BLOOD SPECIMENOrdering Facility: [facility] Address: [address] [place] [address] Performed By: #### 5 8410-2 ####[facility] [id number] [place] [address] [place] Hematocrit (Bld) [Volume fraction] 26.9 % Low 36.0-46.0 [facility] Comment on above: Order Comment: Speci men Type: BLOOD SPECIMENOrdering Facility: [facility] Address: [address] [place] [address] Performed By: #### 5 8410-2 ####[facility] [id number] [place] [address] [place] Hemoglobin (Bld) [Mass/Vol] 9.1 g/dL Low 11.5-15.5 [facility] Comment on above: Order Comment: Speci men Type: BLOOD SPECIMENOrdering Facility: [facility] Address: [address] [place] [address] Performed By: #### 5 8410-2 ####[facility] [id number] [place] [address] [place] MCH (RBC) [Entitic mass] 31.3 pg Normal 26.0-34.0 [facility] Comment on above: Order Comment: Speci men Type: BLOOD SPECIMENOrdering Facility: [facility] Address: [address] [place] [address] Performed By: #### 5 8410-2 ####[facility] [id number] [place] [address] [place] MCHC (RBC) [Mass/Vol] 33.8 g/dL Normal 30.5-36.0 [facility] Comment on above: Order Comment: Speci men Type: BLOOD SPECIMENOrdering Facility: [facility] Address: [address] [place] [address] Performed By: #### 5 8410-2 ####[facility] [id number] [place] [address] [place] MCV (RBC) [Entitic vol] 92.4 fL Normal 80.0-100.0 [facility] Comment on above: Order Comment: Speci men Type: BLOOD SPECIMENOrdering Facility: [facility] Address: [address] [place] [address] Performed By: #### 5 8410-2 ####[facility] [id number] [place] [address] [place] Nucleated RBC (Bld) [#/Vol] 10*3/uL Normal <0.01 [facility] Comment on above: Order Comment: Speci men Type: BLOOD SPECIMENOrdering Facility: [facility] Address: [address] [place] [address] Performed By: #### 5 8410-2 ####[facility] [id number] [place] [address] [place] Platelet mean volume (Bld) [Entitic vol] 10.0 fL Normal 9.0-12.7 [facility] Comment on above: Order Comment: Speci men Type: BLOOD SPECIMENOrdering Facility: [facility] Address: [address] [place] [address] Performed By: #### 5 8410-2 ####[facility] [id number] [place] [address] [place] Platelets (Bld) [#/Vol] 224 10*3/uL Normal 150-400 [facility] Comment on above: Order Comment: Speci men Type: BLOOD SPECIMENOrdering Facility: [facility] Address: [address] [place] [address] Performed By: #### 5 8410-2 ####[facility] [id number] [place] [address] [place] RBC (Bld) [#/Vol] 2.91 10*6/uL Low 3.90-5.20 [facility] Comment on above: Order Comment: Speci men Type: BLOOD SPECIMENOrdering Facility: [facility] Address: [address] [place] [address] Performed By: #### 5 8410-2 ####[facility] [id number] [place] [address] [place] WBC (Bld) [#/Vol] 6.35 10*3/uL Normal 3.70-11.00 [facility] Comment on above: Order Comment: Speci men Type: BLOOD SPECIMENOrdering Facility: [facility] Address: [address] [place] [address] Performed By: #### 5 8410-2 ####[facility] [id number] [place] [id number] [place] Comprehensive metabolic 2000 panelon 08-02-2023 Albumin [Mass/Vol] 3.3 g/dL Low 3.9-4.9 [facility] Comment on above: Order Comment: Speci men Type: BLOOD SPECIMENOrdering Facility: [facility] Address: [address] [place] [address] Performed By: #### 2 4323, ####[facility] [id number] [address] [address] [place] ALP [Catalytic activity/Vol] 60 U/L Normal 34-123 [facility] Comment on above: Order Comment: Speci men Type: BLOOD SPECIMENOrdering Facility: [facility] Address: [address] [place] [address] Performed By: #### 2 8, ####[facility] LABCLIA [id number] [place] [id number] [place] ALT [Catalytic activity/Vol] 14 U/L Normal 7-38 [facility] Comment on above: Order Comment: Speci men Type: BLOOD SPECIMENOrdering Facility: [facility] Address: [address] [place] [address] Performed By: #### 2 4323-01, ####[facility] LABCLIA [id number] [place] [address] [place] Anion gap [Moles/Vol] 9 mmol/L Normal 9-18 [facility] Comment on above: Order Comment: Speci men Type: BLOOD SPECIMENOrdering Facility: [facility] Address: [address] [place] [address] Performed By: #### 2 4323-01, ####[facility] LABCLIA [id number] [place] [address] [place] AST [Catalytic activity/Vol] 19 U/L Normal 13-35 [facility] Comment on above: Order Comment: Speci men Type: BLOOD SPECIMENOrdering Facility: [facility] Address: [address] [place], [place] [address] Performed By: #### 2 432-8, ####[facility] LABCL[facility] [id number] [place] [id number] [place] Bilirubin [Mass/Vol] 0.5 mg/dL Normal 0.2-1.3 [facility] Comment on above: Order Comment: Speci men Type: BLOOD SPECIMENOrdering Facility: [facility] Address: [address] [place] [address] Performed By: #### 2 4323-8, ####[facility] LABCLIA [id number] [place] [address] [place] Calcium [Mass/Vol] 9.8 mg/dL Normal 8.5-10.2 [facility] Comment on above: Order Comment: Speci men Type: BLOOD SPECIMENOrdering Facility: [facility] Address: [address] [place] [address] Performed By: #### 2 4323-8, ####[facility] LABCLIA [id number] [place] [address] [place] Chloride [Moles/Vol] 93 mmol/L Low 97-105 [facility] Comment on above: Order Comment: Speci men Type: BLOOD SPECIMENOrdering Facility: [facility] Address: [address] [place] [address] Performed By: #### 2 432-8, ####[facility] LABCLIA [id number] [place] [address] [place] CO2 [Moles/Vol] 26 mmol/L Normal 22-30 [facility] Comment on above: Order Comment: Speci men Type: BLOOD SPECIMENOrdering Facility: [facility] Address: [address] [place] [address] Performed By: #### 2 4323-8, ####[facility] LABCLIA [id number] [place] [address] [place] Creatinine [Mass/Vol] 0.55 mg/dL Low 0.58-0.96 [facility] Comment on above: Order Comment: Speci men Type: BLOOD SPECIMENOrdering Facility: [facility] Address: [address] [place] [address] Performed By: #### 2 4323-8, 34773-9 ####[facility] LABIA [id number] [place] [address] [place] Creatinine and Glomerular filtration rate.predicted panel (S/P/Bld) 102 mL/min/1.73m??? Normal >=60 [facility] Comment on above: Order Comment: Phyllis stein Type: BLOOD SPECIMENOrdering Facility: [facility] Address: [address] [place] [address] Result Comment: Annelise mated Glomerular Filtration Rate [...] actual GFR. Performed By: #### 2 4323-8, ####[facility] LABIA [id number] [place] [address] [place] Glucose [Mass/Vol] 224 mg/dL High 74-99 [facility] Comment on above: Order Comment: Phyllis stein Type: BLOOD SPECIMENOrdering Facility: [facility] Address: [address] [place] [address] Result Comment: The [place] [employer] (ADA) provides guidance for cutoff [...] Standards of Medical Care in Diabetes 2016, [place] [employer]. Diabetes Care. 2016.39(Suppl 1). Performed By: #### 2 432-8, ####[facility] LABCL[facility] [id number] [place] [address] [place] Potassium [Moles/Vol] 4.4 mmol/L Normal 3.7-5.1 [facility] Comment on above: Order Comment: Speci men Type: BLOOD SPECIMENOrdering Facility: [facility] Address: [address] [place] [address] Performed By: #### 2 8, ####[facility] LABCLIA [id number] [place] [address] [place] Protein [Mass/Vol] 6.2 g/dL Low 6.3-8.0 [facility] Comment on above: Order Comment: Speci men Type: BLOOD SPECIMENOrdering Facility: [facility] Address: [address] [place] [address] Performed By: #### 2 4323-01, ####[facility]CLIA [id number] [place] [address] [place] Sodium [Moles/Vol] 128 mmol/L Low 136-144 [facility] Comment on above: Order Comment: Speci men Type: BLOOD SPECIMENOrdering Facility: [facility] Address: [address] [place] [address] Performed By: #### 2 4323-01, ####[facility] LABCLIA [id number] [place] [id number] [place] Urea nitrogen [Mass/Vol] 13 mg/dL Normal 7-21 [facility] Comment on above: Order Comment: Speci men Type: BLOOD SPECIMENOrdering Facility: [facility] Address: [address] [place], [place] [address] Performed By: #### 2 4323-8, ####[facility] LABCLIA [id number] [place] [id number] [place] ECG COMPLETEon 08-02-2023 ECG COMPLETE Normal [facility] Magnesium SerPl-mCncon 08-02 Magnesium [Mass/Vol] 2.0 mg/dL Normal 1.7-2.3 [facility] Comment on above: Order Comment: Speci men Type: BLOOD SPECIMENOrdering Facility: [facility] Address: [address] [place] [address] Performed By: #### 2 4323-8, 31644-4 ####[facility]CL[facility] [id number] [place] [id number] [place] THERAPY NTon 08-02-2023 THERAPY NT Normal [facility] THERAPY NT Normal [facility] XR CHEST 1V FRONTALon 2023 XR CHEST 1V FRONTAL Normal [facility] CASE MANAGEMon 08-01-2023 CASE MANAGEM Normal [facility] CBC panel Auto (Bld)on 08-01 Erythrocyte distribution width (RBC) [Ratio] 12.0 % Normal 11.5-15.0 [facility] Comment on above: Order Comment: Speci men Type: BLOOD SPECIMENOrdering Facility: [facility] Address: [address] [place] [address] Performed By: #### 5 8410-2 ####[facility] LABIA [id number] [place] [address] [place] Hematocrit (Bld) [Volume fraction] 30.5 % Low 36.0-46.0 [facility] Comment on above: Order Comment: Speci men Type: BLOOD SPECIMENOrdering Facility: [facility] Address: [address] [place] [address] Performed By: #### 5 8410-2 ####[facility]CL[facility] [id number] [place] [id number] [place] Hemoglobin (Bld) [Mass/Vol] 10.5 g/dL Low 11.5-15.5 [facility] Comment on above: Order Comment: Speci men Type: BLOOD SPECIMENOrdering Facility: [facility] Address: [address] [place] [address] Performed By: #### 5 8410-2 ####[facility] LABIA [id number] [place] [address] [place] MCH (RBC) [Entitic mass] 31.4 pg Normal 26.0-34.0 [facility] Comment on above: Order Comment: Speci men Type: BLOOD SPECIMENOrdering Facility: [facility] Address: [address] [place] [address] Performed By: #### 5 8410-2 ####[facility] LABIA [id number] [place] [address] [place] MCHC (RBC) [Mass/Vol] 34.4 g/dL Normal 30.5-36.0 [facility] Comment on above: Order Comment: Speci men Type: BLOOD SPECIMENOrdering Facility: [facility] Address: [address] [place] [address] Performed By: #### 5 8410-2 ####[facility] LABIA [id number] [place] [address] [place] MCV (RBC) [Entitic vol] 91.3 fL Normal 80.0-100.0 [facility] Comment on above: Order Comment: Speci men Type: BLOOD SPECIMENOrdering Facility: [facility] Address: [address] [place] [address] Performed By: #### 5 8410-2 ####[facility] LABIA [id number] [place] [address] [place] Nucleated RBC (Bld) [#/Vol] 10*3/uL Normal <0.01 [facility] Comment on above: Order Comment: Speci men Type: BLOOD SPECIMENOrdering Facility: [facility] Address: [address] [place] [address] Performed By: #### 5 8410-2 ####[facility] LABCLIA [id number] [address] [address] [place] Platelet mean volume (Bld) [Entitic vol] 9.9 fL Normal 9.0-12.7 [facility] Comment on above: Order Comment: Speci men Type: BLOOD SPECIMENOrdering Facility: [facility] Address: [address] [place] [address] Performed By: #### 5 8410-2 ####[facility] LABCLIA [id number] [place] [address] [place] Platelets (Bld) [#/Vol] 208 10*3/uL Normal 150-400 [facility] Comment on above: Order Comment: Speci men Type: BLOOD SPECIMENOrdering Facility: [facility] Address: [address] [place] [address] Performed By: #### 5 8410-2 ####[facility] LABIA [id number] [place] [address] [place] RBC (Bld) [#/Vol] 3.34 10*6/uL Low 3.90-5.20 [facility] Comment on above: Order Comment: Speci men Type: BLOOD SPECIMENOrdering Facility: [facility] Address: [address] [place] [address] Performed By: #### 5 8410-2 ####[facility] LABIA [id number] [place] [address] [place] WBC (Bld) [#/Vol] 9.03 10*3/uL Normal 3.70-11.00 [facility] Comment on above: Order Comment: Speci men Type: BLOOD SPECIMENOrdering Facility: [facility] Address: [address] [place] [address] Performed By: #### 5 8410-2 ####[facility] LABIA [id number] [place] [address] [place] CNDSon 08-01-2023 CNDS Normal [facility] Comprehensive metabolic 2000 panelon 08-01-2023 Albumin [Mass/Vol] 3.3 g/dL Low 3.9-4.9 [facility] Comment on above: Order Comment: Speci men Type: BLOOD SPECIMENOrdering Facility: [facility] Address: [address] [place] [address] Performed By: #### 1 9123-9, 64170-6 ####[facility] LABCLIA [id number] [place] [address] [place] ALP [Catalytic activity/Vol] 60 U/L Normal 34-123 [facility] Comment on above: Order Comment: Speci men Type: BLOOD SPECIMENOrdering Facility: [facility] Address: [address] [place] [address] Performed By: #### 1 9123-9, 99747-4 ####[facility] LABCLIA [id number] [place] [address] [place] ALT [Catalytic activity/Vol] 9 U/L Normal 7-38 [facility] Comment on above: Order Comment: Speci men Type: BLOOD SPECIMENOrdering Facility: [facility] Address: [address] [place] [address] Performed By: #### 1 9123-9, 59104-6 ####[facility] LABCLIA [id number] [place] [address] [place] Anion gap [Moles/Vol] 9 mmol/L Normal 9-18 [facility] Comment on above: Order Comment: Speci men Type: BLOOD SPECIMENOrdering Facility: [facility] Address: [address] [place] [address] Performed By: #### 1 9123-9, 21721-5 ####[facility] LABCLIA [id number] [place] [address] [place] AST [Catalytic activity/Vol] 9 U/L Low 13-35 [facility] Comment on above: Order Comment: Speci men Type: BLOOD SPECIMENOrdering Facility: [facility] Address: [address] [place] [address] Performed By: #### 1 9123-9, ####[facility] LABCLIA [id number] [place] [address] [place] Bilirubin [Mass/Vol] 0.6 mg/dL Normal 0.2-1.3 [facility] Comment on above: Order Comment: Speci men Type: BLOOD SPECIMENOrdering Facility: [facility] Address: [address] [place] [address] Performed By: #### 1 9123-9, ####[facility] LABCLIA [id number] [place] [address] [place] Calcium [Mass/Vol] 9.7 mg/dL Normal 8.5-10.2 [facility] Comment on above: Order Comment: Speci men Type: BLOOD SPECIMENOrdering Facility: [facility] Address: [address] [place] [address] Performed By: #### 1 9123-9, ####[facility] LABCLIA [id number] [place] [address] [place] Chloride [Moles/Vol] 95 mmol/L Low 97-105 [facility] Comment on above: Order Comment: Speci men Type: BLOOD SPECIMENOrdering Facility: [facility] Address: [address] [place] [address] Performed By: #### 1 9123-9, 75808-1 ####[facility] LABCLIA [id number] [place] [address] [place] CO2 [Moles/Vol] 27 mmol/L Normal 22-30 [facility] Comment on above: Order Comment: Speci men Type: BLOOD SPECIMENOrdering Facility: [facility] Address: [address] [place] [address] Performed By: #### 1 9123-9, 12062-8 ####[facility] [id number] [place] [address] [place] Creatinine [Mass/Vol] 0.62 mg/dL Normal 0.58-0.96 [facility] Comment on above: Order Comment: Speci men Type: BLOOD SPECIMENOrdering Facility: [facility] Address: [address] [place] [address] Performed By: #### 1 9123-9, 57819-5 ####[facility] [id number] [place] [address] [place] Creatinine and Glomerular filtration rate.predicted panel (S/P/Bld) 99 mL/min/1.73m??? Normal >=60 [facility] Comment on above: Order Comment: Phyllis men Type: BLOOD SPECIMENOrdering Facility: [facility] Address: [address] [place] [address] Result Comment: Annelise mated Glomerular Filtration Rate [...] actual GFR. Performed By: #### 1 9123-9, ####[facility] [id number] [place] [address] [place] Glucose [Mass/Vol] 196 mg/dL High 74-99 [facility] Comment on above: Order Comment: Speci men Type: BLOOD SPECIMENOrdering Facility: [facility] Address: [address] [place] [address] Result Comment: The [place] [employer] (ADA) provides guidance for cutoff [...] Standards of Medical Care in Diabetes 2016, [place] [employer]. Diabetes Care. 2016.39(Suppl 1). Performed By: #### 1 23-9, ####[facility] LABCLIA [id number] [place] [address] [place] Potassium [Moles/Vol] 4.2 mmol/L Normal 3.7-5.1 [facility] Comment on above: Order Comment: Speci men Type: BLOOD SPECIMENOrdering Facility: [facility] Address: [address] [place] [address] Performed By: #### 1 9123-02, ####[facility] LABCL[facility] [id number] [place] [address] [place] Protein [Mass/Vol] 6.0 g/dL Low 6.3-8.0 [facility] Comment on above: Order Comment: Sybili men Type: BLOOD SPECIMENOrdering Facility: [facility] Address: [address] [place] [address] Performed By: #### 1 23, ####[facility]CL[facility] [id number] [facility] [address] [address] [place] Sodium [Moles/Vol] 131 mmol/L Low 136-144 [facility] Comment on above: Order Comment: Speci men Type: BLOOD SPECIMENOrdering Facility: [facility] Address: [address] [place] [address] Performed By: #### 1 239, ####[facility] LABCL[facility] [id number] [place] [address] [place] Urea nitrogen [Mass/Vol] 12 mg/dL Normal 7-21 [facility] Comment on above: Order Comment: Speci men Type: BLOOD SPECIMENOrdering Facility: [facility] Address: [address] [place] [address] Performed By: #### 1 9123-9, 87675-6 ####[facility]CL[facility] [id number] [place] [address] [place] ECG COMPLETEon 08-01-2023 ECG COMPLETE Normal [facility] Magnesium SerPl-mCncon 08-01 Magnesium [Mass/Vol] 1.8 mg/dL Normal 1.7-2.3 [facility] Comment on above: Order Comment: Speci men Type: BLOOD SPECIMENOrdering Facility: [facility] Address: [address] [place] [address] Performed By: #### 1 9123-9, 16867-5 ####[facility]CL[facility] [id number] [place] [address] [place] XR CHEST 1V FRONTAL PORTon 0 08-01-2023 XR CHEST 1V FRONTAL PORT Normal [facility] CBC panel Auto (Bld)on 07-31 Erythrocyte distribution width (RBC) [Ratio] 12.0 % Normal 11.5-15.0 [facility] Comment on above: Order Comment: Speci men Type: BLOOD SPECIMENOrdering Facility: [facility] Address: [address] [place] [address] Performed By: #### 5 8410-2 ####[facility]CL[facility] [id number] [place] [address] [place] Hematocrit (Bld) [Volume fraction] 31.1 % Low 36.0-46.0 [facility] Comment on above: Order Comment: Speci men Type: BLOOD SPECIMENOrdering Facility: [facility] Address: [address] [place] [address] Performed By: #### 5 8410-2 ####[facility] LABIA [id number] [place] [address] [place] Hemoglobin (Bld) [Mass/Vol] 10.8 g/dL Low 11.5-15.5 [facility] Comment on above: Order Comment: Speci men Type: BLOOD SPECIMENOrdering Facility: [facility] Address: [address] [place] [address] Performed By: #### 5 8410-2 ####[facility] LABIA [id number] [place] [address] [place] MCH (RBC) [Entitic mass] 31.9 pg Normal 26.0-34.0 [facility] Comment on above: Order Comment: Speci men Type: BLOOD SPECIMENOrdering Facility: [facility] Address: [address] [place] [address] Performed By: #### 5 8410-2 ####[facility] [id number] [place] [address] [place] MCHC (RBC) [Mass/Vol] 34.7 g/dL Normal 30.5-36.0 [facility] Comment on above: Order Comment: Speci men Type: BLOOD SPECIMENOrdering Facility: [facility] Address: [address] [place] [address] Performed By: #### 5 8410-2 ####[facility] LABIA [id number] [place] [address] [place] MCV (RBC) [Entitic vol] 91.7 fL Normal 80.0-100.0 [facility] Comment on above: Order Comment: Speci men Type: BLOOD SPECIMENOrdering Facility: [facility] Address: [address] [place] [address] Performed By: #### 5 8410-2 ####[facility] LABIA [id number] [place] [address] [place] Nucleated RBC (Bld) [#/Vol] 10*3/uL Normal <0.01 [facility] Comment on above: Order Comment: Speci men Type: BLOOD SPECIMENOrdering Facility: [facility] Address: [address] [place] [address] Performed By: #### 5 8410-2 ####[facility] LABCL[facility] [id number] [place] [address] [place] Platelet mean volume (Bld) [Entitic vol] 10.3 fL Normal 9.0-12.7 [facility] Comment on above: Order Comment: Speci men Type: BLOOD SPECIMENOrdering Facility: [facility] Address: [address] [place] [address] Performed By: #### 5 8410-2 ####[facility]CL[facility] [id number] [place] [address] [place] Platelets (Bld) [#/Vol] 159 10*3/uL Normal 150-400 [facility] Comment on above: Order Comment: Speci men Type: BLOOD SPECIMENOrdering Facility: [facility] Address: [address] [place] [address] Performed By: #### 5 8410-2 ####[facility]CL[facility] [id number] [place] [address] [place] RBC (Bld) [#/Vol] 3.39 10*6/uL Low 3.90-5.20 [facility] Comment on above: Order Comment: Speci men Type: BLOOD SPECIMENOrdering Facility: [facility] Address: [address] [place] [address] Performed By: #### 5 8410-2 ####[facility]CL[facility] [id number] [place] [address] [place] WBC (Bld) [#/Vol] 9.25 10*3/uL Normal 3.70-11.00 [facility] Comment on above: Order Comment: Speci men Type: BLOOD SPECIMENOrdering Facility: [facility] Address: [address] [place], [place] [address] Performed By: #### 5 8410-2 ####[facility]CL[facility] [id number] [address] [address] [place] Comprehensive metabolic 2000 panelon 07-31-2023 Albumin [Mass/Vol] 2.9 g/dL Low 3.9-4.9 [facility] Comment on above: Order Comment: Speci men Type: BLOOD SPECIMENOrdering Facility: [facility] Address: [address] [place] [address] Performed By: #### 2 4323-8 ####[facility]CL[facility] [id number] [place] [address] [place] ALP [Catalytic activity/Vol] 54 U/L Normal 34-123 [facility] Comment on above: Order Comment: Speci men Type: BLOOD SPECIMENOrdering Facility: [facility] Address: [address] [place] [address] Performed By: #### 2 4323-8 ####[facility]CL[facility] [id number] [place] [address] [place] ALT [Catalytic activity/Vol] 10 U/L Normal 7-38 [facility] Comment on above: Order Comment: Speci men Type: BLOOD SPECIMENOrdering Facility: [facility] Address: [address] [place] [address] Performed By: #### 2 4323-8 ####[facility] [id number] [place] [id number] [place] Anion gap [Moles/Vol] 9 mmol/L Normal 9-18 [facility] Comment on above: Order Comment: Speci men Type: BLOOD SPECIMENOrdering Facility: [facility] Address: [address] [place], [place] [address] Performed By: #### 2 4323-8 ####[facility] [id number] [place] [address] [place] AST [Catalytic activity/Vol] 16 U/L Normal 13-35 [facility] Comment on above: Order Comment: Speci men Type: BLOOD SPECIMENOrdering Facility: [facility] Address: [address] [place] [address] Performed By: #### 2 4323-8 ####[facility] [id number] [place] [address] [place] Bilirubin [Mass/Vol] 0.7 mg/dL Normal 0.2-1.3 [facility] Comment on above: Order Comment: Speci men Type: BLOOD SPECIMENOrdering Facility: [facility] Address: [address] [place] [address] Performed By: #### 2 4323-8 ####[facility]CL[facility] [id number] [place] [address] [place] Calcium [Mass/Vol] 9.2 mg/dL Normal 8.5-10.2 [facility] Comment on above: Order Comment: Speci men Type: BLOOD SPECIMENOrdering Facility: [facility] Address: [address] [place] [address] Performed By: #### 2 4323-8 ####[facility] [id number] [place] [address] [place] Chloride [Moles/Vol] 98 mmol/L Normal 97-105 [facility] Comment on above: Order Comment: Speci men Type: BLOOD SPECIMENOrdering Facility: [facility] Address: [address] [place] [address] Performed By: #### 2 4323-8 ####[facility] [id number] [place] [address] [place] CO2 [Moles/Vol] 24 mmol/L Normal 22-30 [facility] Comment on above: Order Comment: Speci men Type: BLOOD SPECIMENOrdering Facility: [facility] Address: [address] [place] [address] Performed By: #### 2 4323-8 ####[facility] [id number] [place] [address] [place] Creatinine [Mass/Vol] 0.66 mg/dL Normal 0.58-0.96 [facility] Comment on above: Order Comment: Speci men Type: BLOOD SPECIMENOrdering Facility: [facility] Address: [address] [place] [address] Performed By: #### 2 4323-8 ####[facility] LAB[facility] [id number] [place] [address] [place] [place] Creatinine and Glomerular filtration rate.predicted panel (S/P/Bld) 97 mL/min/1.73m??? Normal >=60 [facility] Comment on above: Order Comment: Speci men Type: BLOOD SPECIMENOrdering Facility: [facility] Address: [address] [place] [address] Result Comment: Annelise mated Glomerular Filtration Rate [...] actual GFR. Performed By: #### 2 4323-8 ####[facility] [id number] [place] [address] [place] Glucose [Mass/Vol] 171 mg/dL High 74-99 [facility] Comment on above: Order Comment: Speci men Type: BLOOD SPECIMENOrdering Facility: [facility] Address: [address] [place] [address] Result Comment: The [place] [employer] (ADA) provides guidance for cutoff [...] Standards of Medical Care in Diabetes 2016, [place] [employer]. Diabetes Care. 2016.39(Suppl 1). Performed By: #### 2 4323-8 ####[facility] [id number] [place] [address] [place] Potassium [Moles/Vol] 4.4 mmol/L Normal 3.7-5.1 [facility] Comment on above: Order Comment: Speci men Type: BLOOD SPECIMENOrdering Facility: [facility] Address: [address] [place] [address] Performed By: #### 2 4323-8 ####[facility] [id number] [place] [address] [place] Protein [Mass/Vol] 5.5 g/dL Low 6.3-8.0 [facility] Comment on above: Order Comment: Sybili men Type: BLOOD SPECIMENOrdering Facility: [facility] Address: [address] [place] [address] Performed By: #### 2 4323-8 ####[facility] [id number] [place] [address] [place] Sodium [Moles/Vol] 131 mmol/L Low 136-144 [facility] Comment on above: Order Comment: Speci men Type: BLOOD SPECIMENOrdering Facility: [facility] Address: [address] [place] [address] Performed By: #### 2 4323-8 ####[facility] [id number] [place] [address] [place] Urea nitrogen [Mass/Vol] 12 mg/dL Normal 7-21 [facility] Comment on above: Order Comment: Speci men Type: BLOOD SPECIMENOrdering Facility: [facility] Address: [address] [place] [address] Performed By: #### 2 4323-8 ####[facility] [id number] [place] [address] [place] NURSING PROGon 07-31-2023 NURSING PROG Normal [facility] XR CHEST 1V FRONTAL PORTon 0 07-31-2023 XR CHEST 1V FRONTAL PORT Normal [facility] ARTERIAL BLOOD GASESon 07-30 Base excess Calc (Bld) [Moles/Vol] 2 mmol/L Normal 0-2 [facility] Comment on above: Order Comment: Speci men Type: ARTERIAL BLOOD SPECIMENOrdering Facility: [facility] Address: [address] [place] [address] Performed By: #### A LLBG ####[facility] [id number] [place] [address] [place] Body temperature 98.6 [degF] Normal [facility] Comment on above: Order Comment: Speci men Type: ARTERIAL BLOOD SPECIMENOrdering Facility: [facility] Address: [address] [place] [address] Performed By: #### A LLBG ####[facility] [id number] [place] [address] [place] Calcium.ionized (Bld) [Mass/Vol] 1.22 mmol/L Normal 1.08-1.30 [facility] Comment on above: Order Comment: Speci men Type: ARTERIAL BLOOD SPECIMENOrdering Facility: [facility] Address: [address] [place] [address] Performed By: #### A LLBG ####[facility] [id number] [place] [address] [place] Calcium.ionized adjusted to pH 7.4 (BldA) [Moles/Vol] 1.26 mmol/L Normal 1.08-1.30 [facility] Comment on above: Order Comment: Speci men Type: ARTERIAL BLOOD SPECIMENOrdering Facility: [facility] Address: [address] [place] [address] Performed By: #### A LLBG ####[facility] [id number] [place] [address] [place] Carboxyhemoglobin (BldA) [Mass fraction] 1.8 % Normal 0.0-2.0 [facility] Comment on above: Order Comment: Speci men Type: ARTERIAL BLOOD SPECIMENOrdering Facility: [facility] Address: [address] [place] [address] Result Comment: Carb oxyhemoglobin Reference Range for Smokers: 2.0-8.0% Performed By: #### A LLBG ####[facility] [id number] [place] [address] [place] CO2 (Bld) [Partial pressure] 37 mm Hg Normal 36-46 [facility] Comment on above: Order Comment: Speci men Type: ARTERIAL BLOOD SPECIMENOrdering Facility: [facility] Address: [address] [place] [address] Performed By: #### A LLBG ####[facility] [id number] [place] [address] [place] Glucose [Mass/Vol] 146 mg/dL High 60-105 [facility] Comment on above: Order Comment: Speci men Type: ARTERIAL BLOOD SPECIMENOrdering Facility: [facility] Address: [address] [place] [address] Performed By: #### A LLBG ####[facility] [id number] [place] [address] [place] HCO3 (Bld) [Moles/Vol] 26 mmol/L Normal 22-26 [facility] Comment on above: Order Comment: Speci men Type: ARTERIAL BLOOD SPECIMENOrdering Facility: [facility] Address: [address] [place] [address] Performed By: #### A LLBG ####[facility] [id number] [place] [address] [place] Hematocrit (Bld) [Volume fraction] 34.4 % Low 36.0-46.0 [facility] Comment on above: Order Comment: Speci men Type: ARTERIAL BLOOD SPECIMENOrdering Facility: [facility] Address: [address] [place] [address] Performed By: #### A LLBG ####[facility] [id number] [place] [address] [place] Hemoglobin (Bld) [Mass/Vol] 11.1 g/dL Low 11.5-15.5 [facility] Comment on above: Order Comment: Speci men Type: ARTERIAL BLOOD SPECIMENOrdering Facility: [facility] Address: [address] [place] [address] Performed By: #### A LLBG ####[facility] [id number] [place] [address] [place] Lactate [Moles/Vol] 0.9 mmol/L Normal 0.5-2.2 [facility] Comment on above: Order Comment: Speci men Type: ARTERIAL BLOOD SPECIMENOrdering Facility: [facility] Address: [address] [place] [address] Performed By: #### A LLBG ####[facility] [id number] [place] [address] [place] LITERS 1 Liters/min Normal [facility] Comment on above: Order Comment: Speci men Type: ARTERIAL BLOOD SPECIMENOrdering Facility: [facility] Address: [address] [place] [address] Performed By: #### A LLBG ####[facility] [id number] [id number] [address] [place] Methemoglobin (Bld) [Mass fraction] 1.4 % Normal 0.0-1.5 [facility] Comment on above: Order Comment: Speci men Type: ARTERIAL BLOOD SPECIMENOrdering Facility: [facility] Address: [address] [id number] Performed By: #### A LLBG ####[facility] [id number] [place] [address] [place] O2 THERAPY NC = Nasal Cannula Normal [facility] Comment on above: Order Comment: Speci men Type: ARTERIAL BLOOD SPECIMENOrdering Facility: [facility] Address: [address] [place] [address] Performed By: #### A LLBG ####[facility] [id number] [place] [address] [place] Oxygen (Bld) [Partial pressure] 87 mm Hg Normal 85-95 [facility] Comment on above: Order Comment: Speci men Type: ARTERIAL BLOOD SPECIMENOrdering Facility: [facility] Address: [address] [place] [address] Performed By: #### A LLBG ####[facility] [id number] [place] [address] [place] Oxyhemoglobin (BldA) [Mass fraction] 94 % Low 95-98 [facility] Comment on above: Order Comment: Speci men Type: ARTERIAL BLOOD SPECIMENOrdering Facility: [facility] Address: [address] [place] [address] Performed By: #### A LLBG ####[facility] [id number] [place] [address] [place] pH (Bld) 7.46 [pH] High 7.35-7.45 [facility] Comment on above: Order Comment: Speci men Type: ARTERIAL BLOOD SPECIMENOrdering Facility: [facility] Address: [address] [id number] Performed By: #### A LLBG ####[facility] [id number] [place] [address] [place] Potassium [Moles/Vol] 4.3 mmol/L Normal 3.5-5.0 [facility] Comment on above: Order Comment: Speci men Type: ARTERIAL BLOOD SPECIMENOrdering Facility: [facility] Address: [address] [place] [address] Performed By: #### A LLBG ####[facility] [id number] [place] [address] [place] Sodium [Moles/Vol] 128 mmol/L Low 136-144 [facility] Comment on above: Order Comment: Speci men Type: ARTERIAL BLOOD SPECIMENOrdering Facility: [facility] Address: [address] [place] [address] Performed By: #### A LLBG ####[facility] [id number] [place] [address] [place] Base excess Calc (Bld) [Moles/Vol] 2 mmol/L Normal 0-2 [facility] Comment on above: Order Comment: Speci men Type: ARTERIAL BLOOD SPECIMENOrdering Facility: [facility] Address: [address] [place] [address] Performed By: #### A LLBG ####[facility] [id number] [place] [address] [place] Body temperature 98.6 [degF] Normal [facility] Comment on above: Order Comment: Speci men Type: ARTERIAL BLOOD SPECIMENOrdering Facility: [facility] Address: [address] [place] [address] Performed By: #### A LLBG ####[facility] [id number] [place] [address] [place] Calcium.ionized (Bld) [Mass/Vol] 1.21 mmol/L Normal 1.08-1.30 [facility] Comment on above: Order Comment: Speci men Type: ARTERIAL BLOOD SPECIMENOrdering Facility: [facility] Address: [address] [place] [address] Performed By: #### A LLBG ####[facility] [id number] [place] [address] [place] Calcium.ionized adjusted to pH 7.4 (BldA) [Moles/Vol] 1.23 mmol/L Normal 1.08-1.30 [facility] Comment on above: Order Comment: Speci men Type: ARTERIAL BLOOD SPECIMENOrdering Facility: [facility] Address: [address] [place] [address] Performed By: #### A LLBG ####[facility] [id number] [place] [address] [place] Carboxyhemoglobin (BldA) [Mass fraction] 1.6 % Normal 0.0-2.0 [facility] Comment on above: Order Comment: Speci men Type: ARTERIAL BLOOD SPECIMENOrdering Facility: [facility] Address: [address] [place] [address] Result Comment: Carb oxyhemoglobin Reference Range for Smokers: 2.0-8.0% Performed By: #### A LLBG ####[facility] [id number] [place] [address] [place] CO2 (Bld) [Partial pressure] 39 mm Hg Normal 36-46 [facility] Comment on above: Order Comment: Speci men Type: ARTERIAL BLOOD SPECIMENOrdering Facility: [facility] Address: [address] [place] [address] Performed By: #### A LLBG ####[facility] [id number] [place] [address] [place] Glucose [Mass/Vol] 168 mg/dL High 60-105 [facility] Comment on above: Order Comment: Speci men Type: ARTERIAL BLOOD SPECIMENOrdering Facility: [facility] Address: [address] [place] [address] Performed By: #### A LLBG ####[facility] [id number] [place] [address] [place] HCO3 (Bld) [Moles/Vol] 26 mmol/L Normal 22-26 [facility] Comment on above: Order Comment: Speci men Type: ARTERIAL BLOOD SPECIMENOrdering Facility: [facility] Address: [address] [place] [address] Performed By: #### A LLBG ####[facility] [id number] [place] [address] [place] Hematocrit (Bld) [Volume fraction] 35.0 % Low 36.0-46.0 [facility] Comment on above: Order Comment: Speci men Type: ARTERIAL BLOOD SPECIMENOrdering Facility: [facility] Address: [address] [place] [address] Performed By: #### A LLBG ####[facility] [id number] [place] [address] [place] Hemoglobin (Bld) [Mass/Vol] 11.4 g/dL Low 11.5-15.5 [facility] Comment on above: Order Comment: Speci men Type: ARTERIAL BLOOD SPECIMENOrdering Facility: [facility] Address: [address] [place] [address] Performed By: #### A LLBG ####[facility] [id number] [place] [address] [place] Lactate [Moles/Vol] 1.0 mmol/L Normal 0.5-2.2 [facility] Comment on above: Order Comment: Speci men Type: ARTERIAL BLOOD SPECIMENOrdering Facility: [facility] Address: [address] [place] [address] Performed By: #### A LLBG ####[facility] [id number] [place] [address] [place] 1 Liters/min Normal [facility] Comment on above: Order Comment: Speci men Type: ARTERIAL BLOOD SPECIMENOrdering Facility: [facility] Address: [address] [id number] Performed By: #### A LLBG ####[facility] [id number] [place] [address] [place] Methemoglobin (Bld) [Mass fraction] 1.4 % Normal 0.0-1.5 [facility] Comment on above: Order Comment: Speci men Type: ARTERIAL BLOOD SPECIMENOrdering Facility: [facility] Address: [address] [place] [address] Performed By: #### A LLBG ####[facility] [id number] [place] [address] [place] O2 THERAPY NC = Nasal Cannula Normal [facility] Comment on above: Order Comment: Speci men Type: ARTERIAL BLOOD SPECIMENOrdering Facility: [facility] Address: [address] [place] [address] Performed By: #### A LLBG ####[facility] [id number] [place] [address] [place] Oxygen (Bld) [Partial pressure] 99 mm Hg High 85-95 [facility] Comment on above: Order Comment: Speci men Type: ARTERIAL BLOOD SPECIMENOrdering Facility: [facility] Address: [address] [id number] Performed By: #### A LLBG ####[facility] [id number] [place] [address] [place] Oxyhemoglobin (BldA) [Mass fraction] 95 % Normal 95-98 [facility] Comment on above: Order Comment: Speci men Type: ARTERIAL BLOOD SPECIMENOrdering Facility: [facility] Address: [address] [id number] Performed By: #### A LLBG ####[facility] [id number] [place] [address] [place] pH (Bld) 7.43 [pH] Normal 7.35-7.45 [facility] Comment on above: Order Comment: Speci men Type: ARTERIAL BLOOD SPECIMENOrdering Facility: [facility] Address: [address] [place] [address] Performed By: #### A LLBG ####[facility] [id number] [place] [address] [place] Potassium [Moles/Vol] 4.2 mmol/L Normal 3.5-5.0 [facility] Comment on above: Order Comment: Speci men Type: ARTERIAL BLOOD SPECIMENOrdering Facility: [facility] Address: [address] [place] [address] Performed By: #### A LLBG ####[facility] [id number] [place] [address] [place] Sodium [Moles/Vol] 128 mmol/L Low 136-144 [facility] Comment on above: Order Comment: Speci men Type: ARTERIAL BLOOD SPECIMENOrdering Facility: [facility] Address: [address] [place] [address] Performed By: #### A LLBG ####[facility] [id number] [place] [address] [place] Base excess Calc (Bld) [Moles/Vol] 1 mmol/L Normal 0-2 [facility] Comment on above: Order Comment: Speci men Type: ARTERIAL BLOOD SPECIMENOrdering Facility: [facility] Address: [address] [place] [address] Performed By: #### A LLBG ####[facility] [id number] [place] [address] [place] Body temperature 98.6 [degF] Normal [facility] Comment on above: Order Comment: Speci men Type: ARTERIAL BLOOD SPECIMENOrdering Facility: [facility] Address: [address] [place] [address] Performed By: #### A LLBG ####[facility] [id number] [place] [address] [place] Calcium.ionized (Bld) [Mass/Vol] 1.24 mmol/L Normal 1.08-1.30 [facility] Comment on above: Order Comment: Speci men Type: ARTERIAL BLOOD SPECIMENOrdering Facility: [facility] Address: [address] [place] [address] Performed By: #### A LLBG ####[facility] [id number] [place] [address] [place] Calcium.ionized adjusted to pH 7.4 (BldA) [Moles/Vol] 1.26 mmol/L Normal 1.08-1.30 [facility] Comment on above: Order Comment: Speci men Type: ARTERIAL BLOOD SPECIMENOrdering Facility: [facility] Address: [address] [place] [address] Performed By: #### A LLBG ####[facility] [id number] [place] [address] [place] Carboxyhemoglobin (BldA) [Mass fraction] 1.9 % Normal 0.0-2.0 [facility] Comment on above: Order Comment: Speci men Type: ARTERIAL BLOOD SPECIMENOrdering Facility: [facility] Address: [address] [place] [address] Result Comment: Carb oxyhemoglobin Reference Range for Smokers: 2.0-8.0% Performed By: #### A LLBG ####[facility] [id number] [place] [address] [place] CO2 (Bld) [Partial pressure] 38 mm Hg Normal 36-46 [facility] Comment on above: Order Comment: Speci men Type: ARTERIAL BLOOD SPECIMENOrdering Facility: [facility] Address: [address] [place] [address] Performed By: #### A LLBG ####[facility] [id number] [place] [address] [place] Glucose [Mass/Vol] 161 mg/dL High 60-105 [facility] Comment on above: Order Comment: Speci men Type: ARTERIAL BLOOD SPECIMENOrdering Facility: [facility] Address: [address] [place] [address] Performed By: #### A LLBG ####[facility] [id number] [place] [address] [place] HCO3 (Bld) [Moles/Vol] 25 mmol/L Normal 22-26 [facility] Comment on above: Order Comment: Speci men Type: ARTERIAL BLOOD SPECIMENOrdering Facility: [facility] Address: [address] [place] [address] Performed By: #### A LLBG ####[facility] [id number] [place] [address] [place] Hematocrit (Bld) [Volume fraction] 35.9 % Low 36.0-46.0 [facility] Comment on above: Order Comment: Speci men Type: ARTERIAL BLOOD SPECIMENOrdering Facility: [facility] Address: [address] [place] [address] Performed By: #### A LLBG ####[facility] [id number] [place] [address] [place] Hemoglobin (Bld) [Mass/Vol] 11.7 g/dL Normal 11.5-15.5 [facility] Comment on above: Order Comment: Speci men Type: ARTERIAL BLOOD SPECIMENOrdering Facility: [facility] Address: [address] [place] [address] Performed By: #### A LLBG ####[facility] [id number] [place] [address] [place] Lactate [Moles/Vol] 0.9 mmol/L Normal 0.5-2.2 [facility] Comment on above: Order Comment: Speci men Type: ARTERIAL BLOOD SPECIMENOrdering Facility: [facility] Address: [address] [place] [address] Performed By: #### A LLBG ####[facility] [id number] [place] [address] [place] 1 Liters/min Normal [facility] Comment on above: Order Comment: Speci men Type: ARTERIAL BLOOD SPECIMENOrdering Facility: [facility] Address: [address] [place] [address] Performed By: #### A LLBG ####[facility] [id number] [place] [address] [place] Methemoglobin (Bld) [Mass fraction] 0.7 % Normal 0.0-1.5 [facility] Comment on above: Order Comment: Speci men Type: ARTERIAL BLOOD SPECIMENOrdering Facility: [facility] Address: [address] [place] [address] Performed By: #### A LLBG ####[facility] [id number] [place] [address] [place] O2 THERAPY NC = Nasal Cannula Normal [facility] Comment on above: Order Comment: Speci men Type: ARTERIAL BLOOD SPECIMENOrdering Facility: [facility] Address: [address] [place] [address] Performed By: #### A LLBG ####[facility] [id number] [place] [address] [place] Oxygen (Bld) [Partial pressure] 77 mm Hg Low 85-95 [facility] Comment on above: Order Comment: Speci men Type: ARTERIAL BLOOD SPECIMENOrdering Facility: [facility] Address: [address] [place] [address] Performed By: #### A LLBG ####[facility] [id number] [place] [address] [place] Oxyhemoglobin (BldA) [Mass fraction] 94 % Low 95-98 [facility] Comment on above: Order Comment: Speci men Type: ARTERIAL BLOOD SPECIMENOrdering Facility: [facility] Address: [address] [place] [address] Performed By: #### A LLBG ####[facility] [id number] [place] [address] [place] pH (Bld) 7.42 [pH] Normal 7.35-7.45 [facility] Comment on above: Order Comment: Speci men Type: ARTERIAL BLOOD SPECIMENOrdering Facility: [facility] Address: [address] [place] [address] Performed By: #### A LLBG ####[facility] [id number] [place] [address] [place] Potassium [Moles/Vol] 3.9 mmol/L Normal 3.5-5.0 [facility] Comment on above: Order Comment: Speci men Type: ARTERIAL BLOOD SPECIMENOrdering Facility: [facility] Address: [address] [place] [address] Performed By: #### A LLBG ####[facility] [id number] [place] [address] [place] Sodium [Moles/Vol] 129 mmol/L Low 136-144 [facility] Comment on above: Order Comment: Speci men Type: ARTERIAL BLOOD SPECIMENOrdering Facility: [facility] Address: [address] [place] [address] Performed By: #### A LLBG ####[facility] [id number] [place] [address] [place] Base excess Calc (Bld) [Moles/Vol] 0 mmol/L Normal 0-2 [facility] Comment on above: Order Comment: Speci men Type: ARTERIAL BLOOD SPECIMENOrdering Facility: [facility] Address: [address] [place] [address] Performed By: #### A LLBG ####[facility] [id number] [place] [address] [place] Body temperature 98.6 [degF] Normal [facility] Comment on above: Order Comment: Speci men Type: ARTERIAL BLOOD SPECIMENOrdering Facility: [facility] Address: [address] [place] [address] Performed By: #### A LLBG ####[facility] [id number] [place] [address] [place] Calcium.ionized (Bld) [Mass/Vol] 1.24 mmol/L Normal 1.08-1.30 [facility] Comment on above: Order Comment: Speci men Type: ARTERIAL BLOOD SPECIMENOrdering Facility: [facility] Address: [address] [place] [address] Performed By: #### A LLBG ####[facility] [id number] [place] [address] [place] Calcium.ionized adjusted to pH 7.4 (BldA) [Moles/Vol] 1.25 mmol/L Normal 1.08-1.30 [facility] Comment on above: Order Comment: Speci men Type: ARTERIAL BLOOD SPECIMENOrdering Facility: [facility] Address: [address] [place] [address] Performed By: #### A LLBG ####[facility] LABIA [id number] [place] [address] [place] Carboxyhemoglobin (BldA) [Mass fraction] 1.1 % Normal 0.0-2.0 [facility] Comment on above: Order Comment: Speci men Type: ARTERIAL BLOOD SPECIMENOrdering Facility: [facility] Address: [address] [place] [address] Result Comment: Carb oxyhemoglobin Reference Range for Smokers: 2.0-8.0% Performed By: #### A LLBG ####[facility] LABCLIA [id number] [place] [address] [place] CO2 (Bld) [Partial pressure] 38 mm Hg Normal 36-46 [facility] Comment on above: Order Comment: Speci men Type: ARTERIAL BLOOD SPECIMENOrdering Facility: [facility] Address: [address] [place] [address] Performed By: #### A LLBG ####[facility] LABCLIA [id number] [place] [address] [place] Glucose [Mass/Vol] 137 mg/dL High 60-105 [facility] Comment on above: Order Comment: Speci men Type: ARTERIAL BLOOD SPECIMENOrdering Facility: [facility] Address: [address] [place] [address] Performed By: #### A LLBG ####[facility] LABCLIA [id number] [place] [address] [place] HCO3 (Bld) [Moles/Vol] 24 mmol/L Normal 22-26 [facility] Comment on above: Order Comment: Speci men Type: ARTERIAL BLOOD SPECIMENOrdering Facility: [facility] Address: [address] [place] [address] Performed By: #### A LLBG ####[facility] LABCLIA [id number] [place] [address] [place] Hematocrit (Bld) [Volume fraction] 35.6 % Low 36.0-46.0 [facility] Comment on above: Order Comment: Speci men Type: ARTERIAL BLOOD SPECIMENOrdering Facility: [facility] Address: [address] [place] [address] Performed By: #### A LLBG ####[facility] LABCLIA [id number] [place] [address] [place] Hemoglobin (Bld) [Mass/Vol] 11.5 g/dL Normal 11.5-15.5 [facility] Comment on above: Order Comment: Speci men Type: ARTERIAL BLOOD SPECIMENOrdering Facility: [facility] Address: [address] [place] [address] Performed By: #### A LLBG ####[facility] [id number] [place] [address] [place] Lactate [Moles/Vol] 0.9 mmol/L Normal 0.5-2.2 [facility] Comment on above: Order Comment: Speci men Type: ARTERIAL BLOOD SPECIMENOrdering Facility: [facility] Address: [address] [place] [address] Performed By: #### A LLBG ####[facility] [id number] [place] [address] [place] LITERS 1 Liters/min Normal [facility] Comment on above: Order Comment: Speci men Type: ARTERIAL BLOOD SPECIMENOrdering Facility: [facility] Address: [address] [place] [address] Performed By: #### A LLBG ####[facility] [id number] [place] [address] [place] Methemoglobin (Bld) [Mass fraction] 1.2 % Normal 0.0-1.5 [facility] Comment on above: Order Comment: Speci men Type: ARTERIAL BLOOD SPECIMENOrdering Facility: [facility] Address: [address] [place] [address] Performed By: #### A LLBG ####[facility] [id number] [place] [address] [place] O2 THERAPY NC = Nasal Cannula Normal [facility] Comment on above: Order Comment: Speci men Type: ARTERIAL BLOOD SPECIMENOrdering Facility: [facility] Address: [address] [place] [address] Performed By: #### A LLBG ####[facility] LABCLIA [id number] [place] [address] [place] Oxygen (Bld) [Partial pressure] 98 mm Hg High 85-95 [facility] Comment on above: Order Comment: Speci men Type: ARTERIAL BLOOD SPECIMENOrdering Facility: [facility] Address: [address] [place] [address] Performed By: #### A LLBG ####[facility] [id number] [place] [address] [place] Oxyhemoglobin (BldA) [Mass fraction] 95 % Normal 95-98 [facility] Comment on above: Order Comment: Speci men Type: ARTERIAL BLOOD SPECIMENOrdering Facility: [facility] Address: [address] [place] [address] Performed By: #### A LLBG ####[facility] [id number] [place] [address] [place] pH (Bld) 7.41 [pH] Normal 7.35-7.45 [facility] Comment on above: Order Comment: Speci men Type: ARTERIAL BLOOD SPECIMENOrdering Facility: [facility] Address: [address] [place] [address] Performed By: #### A LLBG ####[facility] [id number] [place] [address] [place] Potassium [Moles/Vol] 4.2 mmol/L Normal 3.5-5.0 [facility] Comment on above: Order Comment: Speci men Type: ARTERIAL BLOOD SPECIMENOrdering Facility: [facility] Address: [address] [place] [address] Performed By: #### A LLBG ####[facility] [id number] [place] [address] [place] Sodium [Moles/Vol] 129 mmol/L Low 136-144 [facility] Comment on above: Order Comment: Speci men Type: ARTERIAL BLOOD SPECIMENOrdering Facility: [facility] Address: [address] [place] [address] Performed By: #### A LLBG ####[facility] LABCLIA [id number] [place] [address] [place] Base excess Calc (Bld) [Moles/Vol] 2 mmol/L Normal 0-2 [facility] Comment on above: Order Comment: Speci men Type: ARTERIAL BLOOD SPECIMENOrdering Facility: [facility] Address: [address] [place] [address] Performed By: #### A LLBG ####[facility] [id number] [place] [address] [place] Body temperature 98.6 [degF] Normal [facility] Comment on above: Order Comment: Speci men Type: ARTERIAL BLOOD SPECIMENOrdering Facility: [facility] Address: [address] [place] [address] Performed By: #### A LLBG ####[facility] [id number] [place] [address] [place] Calcium.ionized (Bld) [Mass/Vol] 1.26 mmol/L Normal 1.08-1.30 [facility] Comment on above: Order Comment: Speci men Type: ARTERIAL BLOOD SPECIMENOrdering Facility: [facility] Address: [address] [place] [address] Performed By: #### A LLBG ####[facility] [id number] [place] [address] [place] Calcium.ionized adjusted to pH 7.4 (BldA) [Moles/Vol] 1.28 mmol/L Normal 1.08-1.30 [facility] Comment on above: Order Comment: Speci men Type: ARTERIAL BLOOD SPECIMENOrdering Facility: [facility] Address: [address] [place] [address] Performed By: #### A LLBG ####[facility] LABCLIA [id number] [place] [address] [place] Carboxyhemoglobin (BldA) [Mass fraction] 1.8 % Normal 0.0-2.0 [facility] Comment on above: Order Comment: Speci men Type: ARTERIAL BLOOD SPECIMENOrdering Facility: [facility] Address: [address] [place] [address] Result Comment: Carb oxyhemoglobin Reference Range for Smokers: 2.0-8.0% Performed By: #### A LLBG ####[facility] LABCLIA [id number] [place] [address] [place] CO2 (Bld) [Partial pressure] 40 mm Hg Normal 36-46 [facility] Comment on above: Order Comment: Speci men Type: ARTERIAL BLOOD SPECIMENOrdering Facility: [facility] Address: [address] [place] [address] Performed By: #### A LLBG ####[facility] LABCLIA [id number] [place] [address] [place] Glucose [Mass/Vol] 118 mg/dL High 60-105 [facility] Comment on above: Order Comment: Speci men Type: ARTERIAL BLOOD SPECIMENOrdering Facility: [facility] Address: [address] [place] [address] Performed By: #### A LLBG ####[facility] LABCLIA [id number] [place] [address] [place] HCO3 (Bld) [Moles/Vol] 26 mmol/L Normal 22-26 [facility] Comment on above: Order Comment: Speci men Type: ARTERIAL BLOOD SPECIMENOrdering Facility: [facility] Address: [address] [place] [address] Performed By: #### A LLBG ####[facility] LABCLIA [id number] [place] [address] [place] Hematocrit (Bld) [Volume fraction] 37.5 % Normal 36.0-46.0 [facility] Comment on above: Order Comment: Speci men Type: ARTERIAL BLOOD SPECIMENOrdering Facility: [facility] Address: [address] [place] [address] Performed By: #### A LLBG ####[facility] LABCLIA [id number] [place] [address] [place] Hemoglobin (Bld) [Mass/Vol] 12.2 g/dL Normal 11.5-15.5 [facility] Comment on above: Order Comment: Speci men Type: ARTERIAL BLOOD SPECIMENOrdering Facility: [facility] Address: [address] [place] [address] Performed By: #### A LLBG ####[facility] LABCLIA [id number] [place] [address] [place] Lactate [Moles/Vol] 1.6 mmol/L Normal 0.5-2.2 [facility] Comment on above: Order Comment: Speci men Type: ARTERIAL BLOOD SPECIMENOrdering Facility: [facility] Address: [address] [place] [address] Performed By: #### A LLBG ####[facility] LABCLIA [id number] [place] [address] [place] Methemoglobin (Bld) [Mass fraction] 1.3 % Normal 0.0-1.5 [facility] Comment on above: Order Comment: Speci men Type: ARTERIAL BLOOD SPECIMENOrdering Facility: [facility] Address: [address] [place] [address] Performed By: #### A LLBG ####[facility] LABCLIA [id number] [place] [address] [place] O2 THERAPY NC = Nasal Cannula Normal [facility] Comment on above: Order Comment: Speci men Type: ARTERIAL BLOOD SPECIMENOrdering Facility: [facility] Address: [address] [place] [address] Performed By: #### A LLBG ####[facility] LABCL[facility] [id number] [place] [address] [place] Oxygen (Bld) [Partial pressure] 85 mm Hg Normal 85-95 [facility] Comment on above: Order Comment: Speci men Type: ARTERIAL BLOOD SPECIMENOrdering Facility: [facility] Address: [address] [place] [address] Performed By: #### A LLBG ####[facility] [id number] [place] [address] [place] Oxyhemoglobin (BldA) [Mass fraction] 94 % Low 95-98 [facility] Comment on above: Order Comment: Speci men Type: ARTERIAL BLOOD SPECIMENOrdering Facility: [facility] Address: [address] [place] [address] Performed By: #### A LLBG ####[facility] [id number] [place] [address] [place] pH (Bld) 7.42 [pH] Normal 7.35-7.45 [facility] Comment on above: Order Comment: Speci men Type: ARTERIAL BLOOD SPECIMENOrdering Facility: [facility] Address: [address] [place] [address] Performed By: #### A LLBG ####[facility] LABCLIA [id number] [place] [address] [place] Potassium [Moles/Vol] 4.4 mmol/L Normal 3.5-5.0 [facility] Comment on above: Order Comment: Speci men Type: ARTERIAL BLOOD SPECIMENOrdering Facility: [facility] Address: [address] [place] [address] Performed By: #### A LLBG ####[facility] [id number] [place] [address] [place] Sodium [Moles/Vol] 132 mmol/L Low 136-144 [facility] Comment on above: Order Comment: Speci men Type: ARTERIAL BLOOD SPECIMENOrdering Facility: [facility] Address: [address] [place] [address] Performed By: #### A LLBG ####[facility] LABCLIA [id number] [place] [address] [place] Base excess Calc (Bld) [Moles/Vol] 2 mmol/L Normal 0-2 [facility] Comment on above: Order Comment: Speci men Type: ARTERIAL BLOOD SPECIMENOrdering Facility: [facility] Address: [address] [place] [address] Performed By: #### A LLBG ####[facility] LABCLIA [id number] [place] [address] [place] Body temperature 98.6 [degF] Normal [facility] Comment on above: Order Comment: Speci men Type: ARTERIAL BLOOD SPECIMENOrdering Facility: [facility] Address: [address] [place] [address] Performed By: #### A LLBG ####[facility] LABCLIA [id number] [place] [address] [place] Calcium.ionized (Bld) [Mass/Vol] 1.25 mmol/L Normal 1.08-1.30 [facility] Comment on above: Order Comment: Speci men Type: ARTERIAL BLOOD SPECIMENOrdering Facility: [facility] Address: [address] [place] [address] Performed By: #### A LLBG ####[facility] LABCL[facility] [id number] [place] [address] [place] Calcium.ionized adjusted to pH 7.4 (BldA) [Moles/Vol] 1.24 mmol/L Normal 1.08-1.30 [facility] Comment on above: Order Comment: Speci men Type: ARTERIAL BLOOD SPECIMENOrdering Facility: [facility] Address: [address] [place] [address] Performed By: #### A LLBG ####[facility] LABCLIA [id number] [place] [address] [place] Carboxyhemoglobin (BldA) [Mass fraction] 1.5 % Normal 0.0-2.0 [facility] Comment on above: Order Comment: Speci men Type: ARTERIAL BLOOD SPECIMENOrdering Facility: [facility] Address: [address] [place] [address] Result Comment: Carb oxyhemoglobin Reference Range for Smokers: 2.0-8.0% Performed By: #### A LLBG ####[facility]CL[facility] [id number] [place] [address] [place] CO2 (Bld) [Partial pressure] 44 mm Hg Normal 36-46 [facility] Comment on above: Order Comment: Speci men Type: ARTERIAL BLOOD SPECIMENOrdering Facility: [facility] Address: [address] [place] [address] Performed By: #### A LLBG ####[facility] LABCL[facility] [id number] [place] [address] [place] Glucose [Mass/Vol] 139 mg/dL High 60-105 [facility] Comment on above: Order Comment: Speci men Type: ARTERIAL BLOOD SPECIMENOrdering Facility: [facility] Address: [address] [place] [address] Performed By: #### A LLBG ####[facility]CL[facility] [id number] [place] [address] [place] HCO3 (Bld) [Moles/Vol] 27 mmol/L High 22-26 [facility] Comment on above: Order Comment: Speci men Type: ARTERIAL BLOOD SPECIMENOrdering Facility: [facility] Address: [address] [place] [address] Performed By: #### A LLBG ####[facility]CL[facility] [id number] [place] [address] [place] Hematocrit (Bld) [Volume fraction] 37.0 % Normal 36.0-46.0 [facility] Comment on above: Order Comment: Speci men Type: ARTERIAL BLOOD SPECIMENOrdering Facility: [facility] Address: [address] [place] [address] Performed By: #### A LLBG ####[facility] [id number] [place] [address] [place] Hemoglobin (Bld) [Mass/Vol] 12.0 g/dL Normal 11.5-15.5 [facility] Comment on above: Order Comment: Speci men Type: ARTERIAL BLOOD SPECIMENOrdering Facility: [facility] Address: [address] [place] [address] Performed By: #### A LLBG ####[facility] [id number] [place] [address] [place] Lactate [Moles/Vol] 1.6 mmol/L Normal 0.5-2.2 [facility] Comment on above: Order Comment: Speci men Type: ARTERIAL BLOOD SPECIMENOrdering Facility: [facility] Address: [address] [place] [address] Performed By: #### A LLBG ####[facility] [id number] [place] [address] [place] Methemoglobin (Bld) [Mass fraction] 1.5 % Normal 0.0-1.5 [facility] Comment on above: Order Comment: Speci men Type: ARTERIAL BLOOD SPECIMENOrdering Facility: [facility] Address: [address] [place] [address] Performed By: #### A LLBG ####[facility] [id number] [place] [address] [place] O2 THERAPY NC = Nasal Cannula Normal [facility] Comment on above: Order Comment: Speci men Type: ARTERIAL BLOOD SPECIMENOrdering Facility: [facility] Address: [address] [place] [address] Performed By: #### A LLBG ####[facility]CL[facility] [id number] [place] [address] [place] Oxygen (Bld) [Partial pressure] 106 mm Hg High 85-95 [facility] Comment on above: Order Comment: Speci men Type: ARTERIAL BLOOD SPECIMENOrdering Facility: [facility] Address: [address] [place] [address] Performed By: #### A LLBG ####[facility]CL[facility] [id number] [place] [address] [place] Oxyhemoglobin (BldA) [Mass fraction] 95 % Normal 95-98 [facility] Comment on above: Order Comment: Speci men Type: ARTERIAL BLOOD SPECIMENOrdering Facility: [facility] Address: [address] [place] [address] Performed By: #### A LLBG ####[facility] [id number] [place] [address] [place] pH (Bld) 7.40 [pH] Normal 7.35-7.45 [facility] Comment on above: Order Comment: Speci men Type: ARTERIAL BLOOD SPECIMENOrdering Facility: [facility] Address: [address] [place] [address] Performed By: #### A LLBG ####[facility]CL[facility] [id number] [place] [address] [place] Potassium [Moles/Vol] 4.2 mmol/L Normal 3.5-5.0 [facility] Comment on above: Order Comment: Speci men Type: ARTERIAL BLOOD SPECIMENOrdering Facility: [facility] Address: [address] [place] [address] Performed By: #### A LLBG ####[facility]CL[facility] [id number] [place] [address] [place] Sodium [Moles/Vol] 131 mmol/L Low 136-144 [facility] Comment on above: Order Comment: Speci men Type: ARTERIAL BLOOD SPECIMENOrdering Facility: [facility] Address: [address] [place] [address] Performed By: #### A LLBG ####[facility]CL[facility] [id number] [place] [address] [place] Base excess Calc (Bld) [Moles/Vol] 1 mmol/L Normal 0-2 [facility] Comment on above: Order Comment: Speci men Type: ARTERIAL BLOOD SPECIMENOrdering Facility: [facility] Address: [address] [place] [address] Performed By: #### A LLBG ####[facility] [id number] [place] [address] [place] Body temperature 98.6 [degF] Normal [facility] Comment on above: Order Comment: Speci men Type: ARTERIAL BLOOD SPECIMENOrdering Facility: [facility] Address: [address] [place] [address] Performed By: #### A LLBG ####[facility] [id number] [place] [address] [place] Calcium.ionized (Bld) [Mass/Vol] 1.28 mmol/L Normal 1.08-1.30 [facility] Comment on above: Order Comment: Speci men Type: ARTERIAL BLOOD SPECIMENOrdering Facility: [facility] Address: [address] [place] [address] Performed By: #### A LLBG ####[facility] [id number] [place] [address] [place] Calcium.ionized adjusted to pH 7.4 (BldA) [Moles/Vol] 1.28 mmol/L Normal 1.08-1.30 [facility] Comment on above: Order Comment: Speci men Type: ARTERIAL BLOOD SPECIMENOrdering Facility: [facility] Address: [address] [place] [address] Performed By: #### A LLBG ####[facility] [id number] [place] [address] [place] Carboxyhemoglobin (BldA) [Mass fraction] 1.1 % Normal 0.0-2.0 [facility] Comment on above: Order Comment: Speci men Type: ARTERIAL BLOOD SPECIMENOrdering Facility: [facility] Address: [address] [place] [address] Result Comment: Carb oxyhemoglobin Reference Range for Smokers: 2.0-8.0% Performed By: #### A LLBG ####[facility] [id number] [place] [address] [place] CO2 (Bld) [Partial pressure] 42 mm Hg Normal 36-46 [facility] Comment on above: Order Comment: Speci men Type: ARTERIAL BLOOD SPECIMENOrdering Facility: [facility] Address: [address] [place] [address] Performed By: #### A LLBG ####[facility] [id number] [place] [address] [place] Glucose [Mass/Vol] 153 mg/dL High 60-105 [facility] Comment on above: Order Comment: Speci men Type: ARTERIAL BLOOD SPECIMENOrdering Facility: [facility] Address: [address] [place] [address] Performed By: #### A LLBG ####[facility] [id number] [place] [address] [place] HCO3 (Bld) [Moles/Vol] 25 mmol/L Normal 22-26 [facility] Comment on above: Order Comment: Speci men Type: ARTERIAL BLOOD SPECIMENOrdering Facility: [facility] Address: [address] [place] [address] Performed By: #### A LLBG ####[facility] [id number] [place] [address] [place] Hematocrit (Bld) [Volume fraction] 37.6 % Normal 36.0-46.0 [facility] Comment on above: Order Comment: Speci men Type: ARTERIAL BLOOD SPECIMENOrdering Facility: [facility] Address: [address] [place] [address] Performed By: #### A LLBG ####[facility] [id number] [place] [address] [place] Hemoglobin (Bld) [Mass/Vol] 12.2 g/dL Normal 11.5-15.5 [facility] Comment on above: Order Comment: Speci men Type: ARTERIAL BLOOD SPECIMENOrdering Facility: [facility] Address: [address] [place] [address] Performed By: #### A LLBG ####[facility] [id number] [place] [address] [place] Lactate [Moles/Vol] 2.0 mmol/L Normal 0.5-2.2 [facility] Comment on above: Order Comment: Speci men Type: ARTERIAL BLOOD SPECIMENOrdering Facility: [facility] Address: [address] [place] [address] Performed By: #### A LLBG ####[facility] [id number] [place] [address] [place] Methemoglobin (Bld) [Mass fraction] 1.2 % Normal 0.0-1.5 [facility] Comment on above: Order Comment: Speci men Type: ARTERIAL BLOOD SPECIMENOrdering Facility: [facility] Address: [address] [place] [address] Performed By: #### A LLBG ####[facility] [id number] [place] [address] [place] O2 THERAPY NC = Nasal Cannula Normal [facility] Comment on above: Order Comment: Speci men Type: ARTERIAL BLOOD SPECIMENOrdering Facility: [facility] Address: [address] [id number] Performed By: #### A LLBG ####[facility] [id number] [address] [address] [place] Oxygen (Bld) [Partial pressure] 115 mm Hg High 85-95 [facility] Comment on above: Order Comment: Speci men Type: ARTERIAL BLOOD SPECIMENOrdering Facility: [facility] Address: [address] [place] [address] Performed By: #### A LLBG ####[facility] [id number] [place] [address] [place] Oxyhemoglobin (BldA) [Mass fraction] 96 % Normal 95-98 [facility] Comment on above: Order Comment: Speci men Type: ARTERIAL BLOOD SPECIMENOrdering Facility: [facility] Address: [address] [place] [address] Performed By: #### A LLBG ####[facility] [id number] [place] [address] [place] pH (Bld) 7.40 [pH] Normal 7.35-7.45 [facility] Comment on above: Order Comment: Speci men Type: ARTERIAL BLOOD SPECIMENOrdering Facility: [facility] Address: [address] [place], [place] [id number] Performed By: #### A LLBG ####[facility] LABCLIA [id number] [place] [id number] [place] Potassium [Moles/Vol] 4.5 mmol/L Normal 3.5-5.0 [facility] Comment on above: Order Comment: Speci men Type: ARTERIAL BLOOD SPECIMENOrdering Facility: [facility] Address: [address] [place] [address] Performed By: #### A LLBG ####[facility] LABCLIA [id number] [place] [address] [place] Sodium [Moles/Vol] 132 mmol/L Low 136-144 [facility] Comment on above: Order Comment: Speci men Type: ARTERIAL BLOOD SPECIMENOrdering Facility: [facility] Address: [address] [place] [address] Performed By: #### A LLBG ####[facility] LABCLIA [id number] [place] [address] [place] CASE MGT INIT ASSESon 2023 CASE MGT INIT ASSES Normal [facility] CBC panel Auto (Bld)on 07-30 Erythrocyte distribution width (RBC) [Ratio] 12.1 % Normal 11.5-15.0 [facility] Comment on above: Order Comment: Speci men Type: BLOOD SPECIMENOrdering Facility: [facility] Address: [address] [place] [address] Performed By: #### 5 8410-2 ####[facility] LABIA [id number] [place] [address] [place] Hematocrit (Bld) [Volume fraction] 34.5 % Low 36.0-46.0 [facility] Comment on above: Order Comment: Speci men Type: BLOOD SPECIMENOrdering Facility: [facility] Address: [address] [place] [address] Performed By: #### 5 8410-2 ####[facility] LABCLIA [id number] [place] [address] [place] Hemoglobin (Bld) [Mass/Vol] 12.0 g/dL Normal 11.5-15.5 [facility] Comment on above: Order Comment: Speci men Type: BLOOD SPECIMENOrdering Facility: [facility] Address: [address] [place] [address] Performed By: #### 5 8410-2 ####[facility] LABCLIA [id number] [place] [address] [place] MCH (RBC) [Entitic mass] 31.6 pg Normal 26.0-34.0 [facility] Comment on above: Order Comment: Speci men Type: BLOOD SPECIMENOrdering Facility: [facility] Address: [address] [place] [address] Performed By: #### 5 8410-2 ####[facility] LABCLIA [id number] [place] [address] [place] MCHC (RBC) [Mass/Vol] 34.8 g/dL Normal 30.5-36.0 [facility] Comment on above: Order Comment: Speci men Type: BLOOD SPECIMENOrdering Facility: [facility] Address: [address] [place] [address] Performed By: #### 5 8410-2 ####[facility] LABCLIA [id number] [place] [address] [place] MCV (RBC) [Entitic vol] 90.8 fL Normal 80.0-100.0 [facility] Comment on above: Order Comment: Speci men Type: BLOOD SPECIMENOrdering Facility: [facility] Address: [address] [place] [address] Performed By: #### 5 8410-2 ####[facility] LABIA [id number] [place] [address] [place] Nucleated RBC (Bld) [#/Vol] 10*3/uL Normal <0.01 [facility] Comment on above: Order Comment: Speci men Type: BLOOD SPECIMENOrdering Facility: [facility] Address: [address] [place] [address] Performed By: #### 5 8410-2 ####[facility] LABCLIA [id number] [place] [address] [place] Platelet mean volume (Bld) [Entitic vol] 9.7 fL Normal 9.0-12.7 [facility] Comment on above: Order Comment: Speci men Type: BLOOD SPECIMENOrdering Facility: [facility] Address: [address] [place] [address] Performed By: #### 5 8410-2 ####[facility] LABCLIA [id number] [place] [address] [place] Platelets (Bld) [#/Vol] 169 10*3/uL Normal 150-400 [facility] Comment on above: Order Comment: Speci men Type: BLOOD SPECIMENOrdering Facility: [facility] Address: [address] [place] [address] Performed By: #### 5 8410-2 ####[facility] LABIA [id number] [place] [address] [place] RBC (Bld) [#/Vol] 3.80 10*6/uL Low 3.90-5.20 [facility] Comment on above: Order Comment: Speci men Type: BLOOD SPECIMENOrdering Facility: [facility] Address: [address] [place] [address] Performed By: #### 5 8410-2 ####[facility] LABIA [id number] [place] [address] [place] WBC (Bld) [#/Vol] 10.11 10*3/uL Normal 3.70-11.00 [facility] Comment on above: Order Comment: Speci men Type: BLOOD SPECIMENOrdering Facility: [facility] Address: [address] [place] [address] Performed By: #### 5 8410-2 ####[facility] LABIA [id number] [place] [address] [place] Comprehensive metabolic 2000 panelon 07-30-2023 Albumin [Mass/Vol] 3.1 g/dL Low 3.9-4.9 [facility] Comment on above: Order Comment: Speci men Type: BLOOD SPECIMENOrdering Facility: [facility] Address: [address] [place] [address] Performed By: #### H STNT, 33172-3 ####[facility] LABCLIA [id number] [place] [address] [place] ALP [Catalytic activity/Vol] 56 U/L Normal 34-123 [facility] Comment on above: Order Comment: Speci men Type: BLOOD SPECIMENOrdering Facility: [facility] Address: [address] [place] [address] Performed By: #### H STNT, 17567-6 ####[facility] LABCLIA [id number] [place] [address] [place] ALT [Catalytic activity/Vol] 14 U/L Normal 7-38 [facility] Comment on above: Order Comment: Speci men Type: BLOOD SPECIMENOrdering Facility: [facility] Address: [address] [place] [address] Performed By: #### H STNT, 26295-0 ####[facility] LABCLIA [id number] [place] [address] [place] Anion gap [Moles/Vol] 10 mmol/L Normal 9-18 [facility] Comment on above: Order Comment: Speci men Type: BLOOD SPECIMENOrdering Facility: [facility] Address: [address] [place] [address] Performed By: #### H STNT, 56089-9 ####[facility] LABCLIA [id number] [place] [address] [place] AST [Catalytic activity/Vol] 29 U/L Normal 13-35 [facility] Comment on above: Order Comment: Speci men Type: BLOOD SPECIMENOrdering Facility: [facility] Address: [address] [place] [address] Performed By: #### H STNT, 43816-1 ####[facility] LABCLIA [id number] [place] [address] [place] Bilirubin [Mass/Vol] 0.4 mg/dL Normal 0.2-1.3 [facility] Comment on above: Order Comment: Speci men Type: BLOOD SPECIMENOrdering Facility: [facility] Address: [address] [place] [address] Performed By: #### H STNT, 15773-0 ####[facility] LABCLIA [id number] [place] [address] [place] Calcium [Mass/Vol] 8.9 mg/dL Normal 8.5-10.2 [facility] Comment on above: Order Comment: Speci men Type: BLOOD SPECIMENOrdering Facility: [facility] Address: [address] [place] [address] Performed By: #### H STNT, 00439-7 ####[facility] LABCLIA [id number] [place] [address] [place] Chloride [Moles/Vol] 101 mmol/L Normal 97-105 [facility] Comment on above: Order Comment: Speci men Type: BLOOD SPECIMENOrdering Facility: [facility] Address: [address] [place] [address] Performed By: #### H STNT, 58446-6 ####[facility] LABCLIA [id number] [place] [address] [place] CO2 [Moles/Vol] 23 mmol/L Normal 22-30 [facility] Comment on above: Order Comment: Speci men Type: BLOOD SPECIMENOrdering Facility: [facility] Address: [address] [place] [address] Performed By: #### H STNT, 95960-7 ####[facility] LABCLIA [id number] [place] [address] [place] Creatinine [Mass/Vol] 0.70 mg/dL Normal 0.58-0.96 [facility] Comment on above: Order Comment: Speci men Type: BLOOD SPECIMENOrdering Facility: [facility] Address: [address] [place] [address] Performed By: #### H STNT, 77513-9 ####[facility] LABCLIA [id number] [place] [address] [place] Creatinine and Glomerular filtration rate.predicted panel (S/P/Bld) 96 mL/min/1.73m??? Normal >=60 [facility] Comment on above: Order Comment: Phyllis stein Type: BLOOD SPECIMENOrdering Facility: [facility] Address: [address] [place] [address] Result Comment: Annelise mated Glomerular Filtration Rate [...] accurately reflect actual GFR. Performed By: #### H STNT, 76902-2 ####[facility] LABCLIA [id number] [place] [address] [place] Glucose [Mass/Vol] 145 mg/dL High 74-99 [facility] Comment on above: Order Comment: Phyllis stein Type: BLOOD SPECIMENOrdering Facility: [facility] Address: [address] [place] [address] Result Comment: The [place] [employer] (ADA) provides guidance for cutoff [...] Standards of Medical Care in Diabetes 2016, [place] [employer]. Diabetes Care. 2016.39(Suppl 1). Performed By: #### H STNT, 89883-5 ####[facility] LABCLIA [id number] [place] [address] [place] Potassium [Moles/Vol] 4.7 mmol/L Normal 3.7-5.1 [facility] Comment on above: Order Comment: Speci men Type: BLOOD SPECIMENOrdering Facility: [facility] Address: [address] [place] [address] Performed By: #### H STNT, 73675-1 ####[facility] LABCLIA [id number] [place] [address] [place] Protein [Mass/Vol] 5.2 g/dL Low 6.3-8.0 [facility] Comment on above: Order Comment: Speci men Type: BLOOD SPECIMENOrdering Facility: [facility] Address: [address] [place] [address] Performed By: #### H STNT, 70183-4 ####[facility] LABIA [id number] [place] [address] [place] Sodium [Moles/Vol] 134 mmol/L Low 136-144 [facility] Comment on above: Order Comment: Speci men Type: BLOOD SPECIMENOrdering Facility: [facility] Address: [address] [place] [address] Performed By: #### H STNT, 99127-3 ####[facility] LABCLIA [id number] [place] [address] [place] Urea nitrogen [Mass/Vol] 20 mg/dL Normal 7-21 [facility] Comment on above: Order Comment: Speci men Type: BLOOD SPECIMENOrdering Facility: [facility] Address: [address] [place] [address] Performed By: #### H STNT, 59398-3 ####[facility] LABCLIA [id number] [place] [address] [place] HIGH SENSITIVITY TROPONIN To n 07-30-2023 Troponin T.cardiac High sensitivity method [Mass/Vol] 317 ng/L High <12 [facility] Comment on above: Order Comment: Speci men Type: BLOOD SPECIMENOrdering Facility: [facility] Address: [address] [place] [address] Result Comment: When assessing risk for acute [...] for 30 day MACE. Performed By: #### H STNT, 73240-1 ####[facility] LABCLIA [id number] [place] [address] [place] XR CHEST 1V FRONTAL PORTon 0 07-30-2023 XR CHEST 1V FRONTAL PORT Normal [facility] ANES POSTPROC EVALon 024 ANES POSTPROC EVAL Normal [facility] ANES PRE-OPon 07-29-2023 ANES PRE-OP Normal [facility] ARTERIAL BLOOD GASESon 07-29 Base excess Calc (Bld) [Moles/Vol] 1 mmol/L Normal 0-2 [facility] Comment on above: Order Comment: Speci men Type: ARTERIAL BLOOD SPECIMENOrdering Facility: [facility] Address: [address] [place] [address] Performed By: #### A LLBG ####[facility] LABCLIA [id number] [place] [address] [place] Body temperature 98.6 [degF] Normal [facility] Comment on above: Order Comment: Speci men Type: ARTERIAL BLOOD SPECIMENOrdering Facility: [facility] Address: [address] [place] [address] Performed By: #### A LLBG ####[facility] LABCLIA [id number] [place] [address] [place] Calcium.ionized (Bld) [Mass/Vol] 1.26 mmol/L Normal 1.08-1.30 [facility] Comment on above: Order Comment: Speci men Type: ARTERIAL BLOOD SPECIMENOrdering Facility: [facility] Address: [address] [place] [address] Performed By: #### A LLBG ####[facility] LABCLIA [id number] [place] [address] [place] Calcium.ionized adjusted to pH 7.4 (BldA) [Moles/Vol] 1.25 mmol/L Normal 1.08-1.30 [facility] Comment on above: Order Comment: Speci men Type: ARTERIAL BLOOD SPECIMENOrdering Facility: [facility] Address: [address] [place] [address] Performed By: #### A LLBG ####[facility] LABCLIA [id number] [place] [address] [place] Carboxyhemoglobin (BldA) [Mass fraction] 1.2 % Normal 0.0-2.0 [facility] Comment on above: Order Comment: Speci men Type: ARTERIAL BLOOD SPECIMENOrdering Facility: [facility] Address: [address] [place] [address] Result Comment: Carb oxyhemoglobin Reference Range for Smokers: 2.0-8.0% Performed By: #### A LLBG ####[facility] LABCLIA [id number] [place] [address] [place] CO2 (Bld) [Partial pressure] 43 mm Hg Normal 36-46 [facility] Comment on above: Order Comment: Speci men Type: ARTERIAL BLOOD SPECIMENOrdering Facility: [facility] Address: [address] [place] [address] Performed By: #### A LLBG ####[facility] LABCLIA [id number] [place] [address] [place] Glucose [Mass/Vol] 164 mg/dL High 60-105 [facility] Comment on above: Order Comment: Speci men Type: ARTERIAL BLOOD SPECIMENOrdering Facility: [facility] Address: [address] [place] [address] Performed By: #### A LLBG ####[facility] LABCLIA [id number] [place] [address] [place] HCO3 (Bld) [Moles/Vol] 26 mmol/L Normal 22-26 [facility] Comment on above: Order Comment: Speci men Type: ARTERIAL BLOOD SPECIMENOrdering Facility: [facility] Address: [address] [place] [address] Performed By: #### A LLBG ####[facility] LABCLIA [id number] [place] [address] [place] Hematocrit (Bld) [Volume fraction] 36.7 % Normal 36.0-46.0 [facility] Comment on above: Order Comment: Speci men Type: ARTERIAL BLOOD SPECIMENOrdering Facility: [facility] Address: [address] [place] [address] Performed By: #### A LLBG ####[facility] LABCLIA [id number] [place] [address] [place] Hemoglobin (Bld) [Mass/Vol] 11.9 g/dL Normal 11.5-15.5 [facility] Comment on above: Order Comment: Speci men Type: ARTERIAL BLOOD SPECIMENOrdering Facility: [facility] Address: [address] [place] [address] Performed By: #### A LLBG ####[facility] LABCLIA [id number] [place] [address] [place] Lactate [Moles/Vol] 1.1 mmol/L Normal 0.5-2.2 [facility] Comment on above: Order Comment: Speci men Type: ARTERIAL BLOOD SPECIMENOrdering Facility: [facility] Address: [address] [place] [id number] Performed By: #### A LLBG ####[facility] LABCLIA [id number] [place] [address] [place] Methemoglobin (Bld) [Mass fraction] 0.9 % Normal 0.0-1.5 [facility] Comment on above: Order Comment: Speci men Type: ARTERIAL BLOOD SPECIMENOrdering Facility: [facility] Address: [address] [place] [address] Performed By: #### A LLBG ####[facility] LABIA [id number] [place] [address] [place] O2 THERAPY NC = Nasal Cannula Normal [facility] Comment on above: Order Comment: Speci men Type: ARTERIAL BLOOD SPECIMENOrdering Facility: [facility] Address: [address] [place] [address] Performed By: #### A LLBG ####[facility] LABIA [id number] [place] [address] [place] Oxygen (Bld) [Partial pressure] 95 mm Hg Normal 85-95 [facility] Comment on above: Order Comment: Speci men Type: ARTERIAL BLOOD SPECIMENOrdering Facility: [facility] Address: [address] [place] [address] Performed By: #### A LLBG ####[facility] LABIA [id number] [place] [address] [place] Oxyhemoglobin (BldA) [Mass fraction] 96 % Normal 95-98 [facility] Comment on above: Order Comment: Speci men Type: ARTERIAL BLOOD SPECIMENOrdering Facility: [facility] Address: [address] [place] [id number] Performed By: #### A LLBG ####[facility] LABCLIA [id number] [place] [id number] [place] pH (Bld) 7.39 [pH] Normal 7.35-7.45 [facility] Comment on above: Order Comment: Speci men Type: ARTERIAL BLOOD SPECIMENOrdering Facility: [facility] Address: [address] [place] [address] Performed By: #### A LLBG ####[facility]CLIA [id number] [place] [address] [place] Potassium [Moles/Vol] 4.4 mmol/L Normal 3.5-5.0 [facility] Comment on above: Order Comment: Speci men Type: ARTERIAL BLOOD SPECIMENOrdering Facility: [facility] Address: [address] [place] [address] Performed By: #### A LLBG ####[facility] LABCL[facility] [id number] [place] [address] [place] Sodium [Moles/Vol] 132 mmol/L Low 136-144 [facility] Comment on above: Order Comment: Speci men Type: ARTERIAL BLOOD SPECIMENOrdering Facility: [facility] Address: [address] [place] [address] Performed By: #### A LLBG ####[facility] LABCLIA [id number] [place] [address] [place] Base excess Calc (Bld) [Moles/Vol] 0 mmol/L Normal 0-2 [facility] Comment on above: Order Comment: Speci men Type: ARTERIAL BLOOD SPECIMENOrdering Facility: [facility] Address: [address] [place] [address] Performed By: #### A LLBG ####[facility]CL[facility] [id number] [place] [address] [place] Body temperature 98.6 [degF] Normal [facility] Comment on above: Order Comment: Speci men Type: ARTERIAL BLOOD SPECIMENOrdering Facility: [facility] Address: [address] [place] [address] Performed By: #### A LLBG ####[facility]CLIA [id number] [place] [address] [place] Calcium.ionized (Bld) [Mass/Vol] 1.28 mmol/L Normal 1.08-1.30 [facility] Comment on above: Order Comment: Speci men Type: ARTERIAL BLOOD SPECIMENOrdering Facility: [facility] Address: [address] [place] [address] Performed By: #### A LLBG ####[facility] [id number] [place] [address] [place] Calcium.ionized adjusted to pH 7.4 (BldA) [Moles/Vol] 1.26 mmol/L Normal 1.08-1.30 [facility] Comment on above: Order Comment: Speci men Type: ARTERIAL BLOOD SPECIMENOrdering Facility: [facility] Address: [address] [place] [address] Performed By: #### A LLBG ####[facility] [id number] [place] [address] [place] Carboxyhemoglobin (BldA) [Mass fraction] 1.9 % Normal 0.0-2.0 [facility] Comment on above: Order Comment: Speci men Type: ARTERIAL BLOOD SPECIMENOrdering Facility: [facility] Address: [address] [place] [address] Result Comment: Carb oxyhemoglobin Reference Range for Smokers: 2.0-8.0% Performed By: #### A LLBG ####[facility] LABIA [id number] [place] [address] [place] CO2 (Bld) [Partial pressure] 45 mm Hg Normal 36-46 [facility] Comment on above: Order Comment: Speci men Type: ARTERIAL BLOOD SPECIMENOrdering Facility: [facility] Address: [address] [place] [address] Performed By: #### A LLBG ####[facility] [id number] [place] [id number] [place] Glucose [Mass/Vol] 143 mg/dL High 60-105 [facility] Comment on above: Order Comment: Speci men Type: ARTERIAL BLOOD SPECIMENOrdering Facility: [facility] Address: [address] [place] [address] Performed By: #### A LLBG ####[facility]CL[facility] [id number] [place] [address] [place] HCO3 (Bld) [Moles/Vol] 25 mmol/L Normal 22-26 [facility] Comment on above: Order Comment: Speci men Type: ARTERIAL BLOOD SPECIMENOrdering Facility: [facility] Address: [address] [place] [address] Performed By: #### A LLBG ####[facility]CL[facility] [id number] [place] [address] [place] Hematocrit (Bld) [Volume fraction] 36.2 % Normal 36.0-46.0 [facility] Comment on above: Order Comment: Speci men Type: ARTERIAL BLOOD SPECIMENOrdering Facility: [facility] Address: [address] [place] [address] Performed By: #### A LLBG ####[facility]CL[facility] [id number] [place] [address] [place] Hemoglobin (Bld) [Mass/Vol] 11.7 g/dL Normal 11.5-15.5 [facility] Comment on above: Order Comment: Speci men Type: ARTERIAL BLOOD SPECIMENOrdering Facility: [facility] Address: [address] [place] [address] Performed By: #### A LLBG ####[facility]CL[facility] [id number] [place] [address] [place] Lactate [Moles/Vol] 2.3 mmol/L High 0.5-2.2 [facility] Comment on above: Order Comment: Speci men Type: ARTERIAL BLOOD SPECIMENOrdering Facility: [facility] Address: [address] [place] [address] Performed By: #### A LLBG ####[facility]CL[facility] [id number] [place] [address] [place] Methemoglobin (Bld) [Mass fraction] 0.7 % Normal 0.0-1.5 [facility] Comment on above: Order Comment: Speci men Type: ARTERIAL BLOOD SPECIMENOrdering Facility: [facility] Address: [address] [place] [address] Performed By: #### A LLBG ####[facility] [id number] [place] [address] [place] O2 THERAPY NC = Nasal Cannula Normal [facility] Comment on above: Order Comment: Speci men Type: ARTERIAL BLOOD SPECIMENOrdering Facility: [facility] Address: [address] [place] [address] Performed By: #### A LLBG ####[facility] [id number] [place] [address] [place] Oxygen (Bld) [Partial pressure] 95 mm Hg Normal 85-95 [facility] Comment on above: Order Comment: Speci men Type: ARTERIAL BLOOD SPECIMENOrdering Facility: [facility] Address: [address] [place] [address] Performed By: #### A LLBG ####[facility] [id number] [place] [address] [place] Oxyhemoglobin (BldA) [Mass fraction] 95 % Normal 95-98 [facility] Comment on above: Order Comment: Speci men Type: ARTERIAL BLOOD SPECIMENOrdering Facility: [facility] Address: [address] [place] [address] Performed By: #### A LLBG ####[facility] [id number] [place] [address] [place] pH (Bld) 7.37 [pH] Normal 7.35-7.45 [facility] Comment on above: Order Comment: Speci men Type: ARTERIAL BLOOD SPECIMENOrdering Facility: [facility] Address: [address] [place] [address] Performed By: #### A LLBG ####[facility] [id number] [place] [place] [address] [place] Potassium [Moles/Vol] 4.4 mmol/L Normal 3.5-5.0 [facility] Comment on above: Order Comment: Speci men Type: ARTERIAL BLOOD SPECIMENOrdering Facility: [facility] Address: [address] [place] [address] Performed By: #### A LLBG ####[facility] LABCLIA [id number] [place] [address] [place] Sodium [Moles/Vol] 134 mmol/L Low 136-144 [facility] Comment on above: Order Comment: Speci men Type: ARTERIAL BLOOD SPECIMENOrdering Facility: [facility] Address: [address] [place] [address] Performed By: #### A LLBG ####[facility] LABIA [id number] [place] [address] [place] Base deficit (BldA) [Moles/Vol] -1 mmol/L Normal -2-0 [facility] Comment on above: Order Comment: Speci men Type: ARTERIAL BLOOD SPECIMENOrdering Facility: [facility] Address: [address] [place] [address] Performed By: #### A LLBG ####[facility] LABCLIA [id number] [place] [address] [place] Body temperature 98.6 [degF] Normal [facility] Comment on above: Order Comment: Speci men Type: ARTERIAL BLOOD SPECIMENOrdering Facility: [facility] Address: [address] [place] [address] Performed By: #### A LLBG ####[facility] LABIA [id number] [place] [address] [place] Calcium.ionized (Bld) [Mass/Vol] 1.29 mmol/L Normal 1.08-1.30 [facility] Comment on above: Order Comment: Speci men Type: ARTERIAL BLOOD SPECIMENOrdering Facility: [facility] Address: [address] [place] [address] Performed By: #### A LLBG ####[facility] LABIA [id number] [place] [address] [place] Calcium.ionized adjusted to pH 7.4 (BldA) [Moles/Vol] 1.25 mmol/L Normal 1.08-1.30 [facility] Comment on above: Order Comment: Speci men Type: ARTERIAL BLOOD SPECIMENOrdering Facility: [facility] Address: [address] [place] [address] Performed By: #### A LLBG ####[facility] LABIA [id number] [place] [address] [place] Carboxyhemoglobin (BldA) [Mass fraction] 1.7 % Normal 0.0-2.0 [facility] Comment on above: Order Comment: Speci men Type: ARTERIAL BLOOD SPECIMENOrdering Facility: [facility] Address: [address] [place] [address] Result Comment: Carb oxyhemoglobin Reference Range for Smokers: 2.0-8.0% Performed By: #### A LLBG ####[facility] LABIA [id number] [place] [address] [place] CO2 (Bld) [Partial pressure] 47 mm Hg High 36-46 [facility] Comment on above: Order Comment: Speci men Type: ARTERIAL BLOOD SPECIMENOrdering Facility: [facility] Address: [address] [place] [address] Performed By: #### A LLBG ####[facility] LABCLIA [id number] [place] [address] [place] Glucose [Mass/Vol] 216 mg/dL High 60-105 [facility] Comment on above: Order Comment: Speci men Type: ARTERIAL BLOOD SPECIMENOrdering Facility: [facility] Address: [address] [place] [address] Performed By: #### A LLBG ####[facility] LABCLIA [id number] [place] [address] [place] HCO3 (Bld) [Moles/Vol] 25 mmol/L Normal 22-26 [facility] Comment on above: Order Comment: Speci men Type: ARTERIAL BLOOD SPECIMENOrdering Facility: [facility] Address: [address] [place] [address] Performed By: #### A LLBG ####[facility] LABCLIA [id number] [place] [address] [place] Hematocrit (Bld) [Volume fraction] 38.2 % Normal 36.0-46.0 [facility] Comment on above: Order Comment: Speci men Type: ARTERIAL BLOOD SPECIMENOrdering Facility: [facility] Address: [address] [place] [address] Performed By: #### A LLBG ####[facility] LABCLIA [id number] [place] [address] [place] Hemoglobin (Bld) [Mass/Vol] 12.4 g/dL Normal 11.5-15.5 [facility] Comment on above: Order Comment: Speci men Type: ARTERIAL BLOOD SPECIMENOrdering Facility: [facility] Address: [address] [place] [address] Performed By: #### A LLBG ####[facility] LABCLIA [id number] [place] [address] [place] Lactate [Moles/Vol] 1.2 mmol/L Normal 0.5-2.2 [facility] Comment on above: Order Comment: Speci men Type: ARTERIAL BLOOD SPECIMENOrdering Facility: [facility] Address: [address] [id number] Performed By: #### A LLBG ####[facility] LABCLIA [id number] [place] [id number] [place] Methemoglobin (Bld) [Mass fraction] 0.8 % Normal 0.0-1.5 [facility] Comment on above: Order Comment: Speci men Type: ARTERIAL BLOOD SPECIMENOrdering Facility: [facility] Address: [address] [id number] Performed By: #### A LLBG ####[facility] LABCLIA [id number] [place] [address] [place] O2 THERAPY NC = Nasal Cannula Normal [facility] Comment on above: Order Comment: Speci men Type: ARTERIAL BLOOD SPECIMENOrdering Facility: [facility] Address: [address] [place] [address] Performed By: #### A LLBG ####[facility] LABCLIA [id number] [place] [address] [place] Oxygen (Bld) [Partial pressure] 127 mm Hg High 85-95 [facility] Comment on above: Order Comment: Speci men Type: ARTERIAL BLOOD SPECIMENOrdering Facility: [facility] Address: [address] [id number] Performed By: #### A LLBG ####[facility] LABCLIA [id number] [place] [id number] [place] Oxyhemoglobin (BldA) [Mass fraction] 96 % Normal 95-98 [facility] Comment on above: Order Comment: Speci men Type: ARTERIAL BLOOD SPECIMENOrdering Facility: [facility] Address: [address] [id number] Performed By: #### A LLBG ####[facility] LABCL[facility] [id number] [place] [address] [place] pH (Bld) 7.34 [pH] Low 7.35-7.45 [facility] Comment on above: Order Comment: Speci men Type: ARTERIAL BLOOD SPECIMENOrdering Facility: [facility] Address: [address] [place] [address] Performed By: #### A LLBG ####[facility] LABCLIA [id number] [place] [address] [place] Potassium [Moles/Vol] 4.2 mmol/L Normal 3.5-5.0 [facility] Comment on above: Order Comment: Speci men Type: ARTERIAL BLOOD SPECIMENOrdering Facility: [facility] Address: [address] [place] [address] Performed By: #### A LLBG ####[facility] LABCLIA [id number] [place] [address] [place] Sodium [Moles/Vol] 134 mmol/L Low 136-144 [facility] Comment on above: Order Comment: Speci men Type: ARTERIAL BLOOD SPECIMENOrdering Facility: [facility] Address: [address] [place] [address] Performed By: #### A LLBG ####[facility] LABCLIA [id number] [place] [address] [place] Base excess Calc (Bld) [Moles/Vol] 0 mmol/L Normal 0-2 [facility] Comment on above: Order Comment: Speci men Type: ARTERIAL BLOOD SPECIMENOrdering Facility: [facility] Address: [address] [place] [address] Performed By: #### A LLBG ####[facility] LABCLIA [id number] [place] [address] [place] Body temperature 98.6 [degF] Normal [facility] Comment on above: Order Comment: Speci men Type: ARTERIAL BLOOD SPECIMENOrdering Facility: [facility] Address: [address] [place], [place] [address] Performed By: #### A LLBG ####[facility] [id number] [place] [address] [place] Calcium.ionized (Bld) [Mass/Vol] 1.28 mmol/L Normal 1.08-1.30 [facility] Comment on above: Order Comment: Speci men Type: ARTERIAL BLOOD SPECIMENOrdering Facility: [facility] Address: [address] [place] [address] Performed By: #### A LLBG ####[facility] [id number] [place] [address] [place] Calcium.ionized adjusted to pH 7.4 (BldA) [Moles/Vol] 1.27 mmol/L Normal 1.08-1.30 [facility] Comment on above: Order Comment: Speci men Type: ARTERIAL BLOOD SPECIMENOrdering Facility: [facility] Address: [address] [place] [address] Performed By: #### A LLBG ####[facility] [id number] [place] [address] [place] Carboxyhemoglobin (BldA) [Mass fraction] 1.1 % Normal 0.0-2.0 [facility] Comment on above: Order Comment: Speci men Type: ARTERIAL BLOOD SPECIMENOrdering Facility: [facility] Address: [address] [place] [address] Result Comment: Carb oxyhemoglobin Reference Range for Smokers: 2.0-8.0% Performed By: #### A LLBG ####[facility] [id number] [place] [address] [place] CO2 (Bld) [Partial pressure] 43 mm Hg Normal 36-46 [facility] Comment on above: Order Comment: Speci men Type: ARTERIAL BLOOD SPECIMENOrdering Facility: [facility] Address: [address] [place] [address] Performed By: #### A LLBG ####[facility] LABCLIA [id number] [place] [address] [place] Glucose [Mass/Vol] 186 mg/dL High 60-105 [facility] Comment on above: Order Comment: Speci men Type: ARTERIAL BLOOD SPECIMENOrdering Facility: [facility] Address: [address] [place] [address] Performed By: #### A LLBG ####[facility] LABCLIA [id number] [place] [address] [place] HCO3 (Bld) [Moles/Vol] 25 mmol/L Normal 22-26 [facility] Comment on above: Order Comment: Speci men Type: ARTERIAL BLOOD SPECIMENOrdering Facility: [facility] Address: [address] [place] [address] Performed By: #### A LLBG ####[facility] LABCLIA [id number] [place] [address] [place] Hematocrit (Bld) [Volume fraction] 38.5 % Normal 36.0-46.0 [facility] Comment on above: Order Comment: Speci men Type: ARTERIAL BLOOD SPECIMENOrdering Facility: [facility] Address: [address] [place] [address] Performed By: #### A LLBG ####[facility] LABCLIA [id number] [place] [address] [place] Hemoglobin (Bld) [Mass/Vol] 12.5 g/dL Normal 11.5-15.5 [facility] Comment on above: Order Comment: Speci men Type: ARTERIAL BLOOD SPECIMENOrdering Facility: [facility] Address: [address] [place] [address] Performed By: #### A LLBG ####[facility] LABCLIA [id number] [place] [address] [place] Lactate [Moles/Vol] 1.0 mmol/L Normal 0.5-2.2 [facility] Comment on above: Order Comment: Speci men Type: ARTERIAL BLOOD SPECIMENOrdering Facility: [facility] Address: [address] [id number] Performed By: #### A LLBG ####[facility] LABCLIA [id number] [address] [address] [place] Methemoglobin (Bld) [Mass fraction] 0.8 % Normal 0.0-1.5 [facility] Comment on above: Order Comment: Speci men Type: ARTERIAL BLOOD SPECIMENOrdering Facility: [facility] Address: [address] [id number] Performed By: #### A LLBG ####[facility] LABCLIA [id number] [place] [address] [place] O2 THERAPY Positive Normal [facility] Comment on above: Order Comment: Speci men Type: ARTERIAL BLOOD SPECIMENOrdering Facility: [facility] Address: [address] [place] [address] Performed By: #### A LLBG ####[facility] LABCLIA [id number] [place] [address] [place] Oxygen (Bld) [Partial pressure] 117 mm Hg High 85-95 [facility] Comment on above: Order Comment: Speci men Type: ARTERIAL BLOOD SPECIMENOrdering Facility: [facility] Address: [address] [id number] Performed By: #### A LLBG ####[facility] LABCLIA [id number] [address] [address] [place] Oxyhemoglobin (BldA) [Mass fraction] 95 % Normal 95-98 [facility] Comment on above: Order Comment: Speci men Type: ARTERIAL BLOOD SPECIMENOrdering Facility: [facility] Address: [address] [id number] Performed By: #### A LLBG ####[facility] LABCLIA [id number] [place] [address] [place] pH (Bld) 7.38 [pH] Normal 7.35-7.45 [facility] Comment on above: Order Comment: Speci men Type: ARTERIAL BLOOD SPECIMENOrdering Facility: [facility] Address: [address] [place] [address] Performed By: #### A LLBG ####[facility] LABCL[facility] [id number] [place] [address] [place] Potassium [Moles/Vol] 4.6 mmol/L Normal 3.5-5.0 [facility] Comment on above: Order Comment: Speci men Type: ARTERIAL BLOOD SPECIMENOrdering Facility: [facility] Address: [address] [place] [address] Performed By: #### A LLBG ####[facility] LABCLIA [id number] [place] [address] [place] Sodium [Moles/Vol] 134 mmol/L Low 136-144 [facility] Comment on above: Order Comment: Speci men Type: ARTERIAL BLOOD SPECIMENOrdering Facility: [facility] Address: [address] [place] [address] Performed By: #### A LLBG ####[facility] LABCL[facility] [id number] [place] [address] [place] Base excess Calc (Bld) [Moles/Vol] 1 mmol/L Normal 0-2 [facility] Comment on above: Order Comment: Speci men Type: ARTERIAL BLOOD SPECIMENOrdering Facility: [facility] Address: [address] [place] [address] Performed By: #### A LLBG ####[facility] LABCLIA [id number] [place] [address] [place] Body temperature 98.6 [degF] Normal [facility] Comment on above: Order Comment: Speci men Type: ARTERIAL BLOOD SPECIMENOrdering Facility: [facility] Address: [address] [place] [address] Performed By: #### A LLBG ####[facility] [id number] [place] [address] [place] Calcium.ionized (Bld) [Mass/Vol] 1.33 mmol/L High 1.08-1.30 [facility] Comment on above: Order Comment: Speci men Type: ARTERIAL BLOOD SPECIMENOrdering Facility: [facility] Address: [address] [place] [address] Performed By: #### A LLBG ####[facility] [id number] [place] [address] [place] Calcium.ionized adjusted to pH 7.4 (BldA) [Moles/Vol] 1.31 mmol/L High 1.08-1.30 [facility] Comment on above: Order Comment: Speci men Type: ARTERIAL BLOOD SPECIMENOrdering Facility: [facility] Address: [address] [place] [address] Performed By: #### A LLBG ####[facility] [id number] [place] [address] [place] Carboxyhemoglobin (BldA) [Mass fraction] 1.5 % Normal 0.0-2.0 [facility] Comment on above: Order Comment: Speci men Type: ARTERIAL BLOOD SPECIMENOrdering Facility: [facility] Address: [address] [place] [address] Result Comment: Carb oxyhemoglobin Reference Range for Smokers: 2.0-8.0% Performed By: #### A LLBG ####[facility] [id number] [place] [address] [place] CO2 (Bld) [Partial pressure] 45 mm Hg Normal 36-46 [facility] Comment on above: Order Comment: Speci men Type: ARTERIAL BLOOD SPECIMENOrdering Facility: [facility] Address: [address] [place] [address] Performed By: #### A LLBG ####[facility] LABCL[facility] [id number] [place] [address] [place] FIO2 40 % Normal [facility] Comment on above: Order Comment: Speci men Type: ARTERIAL BLOOD SPECIMENOrdering Facility: [facility] Address: [address] [place] [address] Performed By: #### A LLBG ####[facility]CL[facility] [id number] [place] [address] [place] Glucose [Mass/Vol] 122 mg/dL High 60-105 [facility] Comment on above: Order Comment: Speci men Type: ARTERIAL BLOOD SPECIMENOrdering Facility: [facility] Address: [address] [place] [address] Performed By: #### A LLBG ####[facility]CL[facility] [id number] [place] [address] [place] HCO3 (Bld) [Moles/Vol] 26 mmol/L Normal 22-26 [facility] Comment on above: Order Comment: Speci men Type: ARTERIAL BLOOD SPECIMENOrdering Facility: [facility] Address: [address] [place] [address] Performed By: #### A LLBG ####[facility]CL[facility] [id number] [place] [address] [place] Hematocrit (Bld) [Volume fraction] 38.3 % Normal 36.0-46.0 [facility] Comment on above: Order Comment: Speci men Type: ARTERIAL BLOOD SPECIMENOrdering Facility: [facility] Address: [address] [place] [address] Performed By: #### A LLBG ####[facility] [id number] [place] [address] [place] Hemoglobin (Bld) [Mass/Vol] 12.5 g/dL Normal 11.5-15.5 [facility] Comment on above: Order Comment: Speci men Type: ARTERIAL BLOOD SPECIMENOrdering Facility: [facility] Address: [address] [id number] Performed By: #### A LLBG ####[facility]CL[facility] [id number] [place] [id number] [place] Lactate [Moles/Vol] 2.5 mmol/L High 0.5-2.2 [facility] Comment on above: Order Comment: Speci men Type: ARTERIAL BLOOD SPECIMENOrdering Facility: [facility] Address: [address] [place] [address] Performed By: #### A LLBG ####[facility] LABIA [id number] [place] [address] [place] Methemoglobin (Bld) [Mass fraction] 1.5 % Normal 0.0-1.5 [facility] Comment on above: Order Comment: Speci men Type: ARTERIAL BLOOD SPECIMENOrdering Facility: [facility] Address: [address] [place] [address] Performed By: #### A LLBG ####[facility] [id number] [place] [address] [place] O2 THERAPY Ventilator Normal [facility] Comment on above: Order Comment: Speci men Type: ARTERIAL BLOOD SPECIMENOrdering Facility: [facility] Address: [address] [place], [place] [id number] Performed By: #### A LLBG ####[facility]CL[facility] [id number] [place] [id number] [place] Oxygen (Bld) [Partial pressure] 179 mm Hg High 85-95 [facility] Comment on above: Order Comment: Speci men Type: ARTERIAL BLOOD SPECIMENOrdering Facility: [facility] Address: [address] [place], [place] [id number] Performed By: #### A LLBG ####[facility] [id number] [place] [address] [place] Oxyhemoglobin (BldA) [Mass fraction] 96 % Normal 95-98 [facility] Comment on above: Order Comment: Speci men Type: ARTERIAL BLOOD SPECIMENOrdering Facility: [facility] Address: [address] [place] [address] Performed By: #### A LLBG ####[facility]CL[facility] [id number] [place] [address] [place] pH (Bld) 7.37 [pH] Normal 7.35-7.45 [facility] Comment on above: Order Comment: Speci men Type: ARTERIAL BLOOD SPECIMENOrdering Facility: [facility] Address: [address] [place] [address] Performed By: #### A LLBG ####[facility]CL[facility] [id number] [place] [address] [place] PO2 / FIO2 RATIO 448 mmHg Normal >300 [facility] Comment on above: Order Comment: Speci men Type: ARTERIAL BLOOD SPECIMENOrdering Facility: [facility] Address: [address] [place] [address] Performed By: #### A LLBG ####[facility] [id number] [place] [address] [place] Potassium [Moles/Vol] 4.8 mmol/L Normal 3.5-5.0 [facility] Comment on above: Order Comment: Speci men Type: ARTERIAL BLOOD SPECIMENOrdering Facility: [facility] Address: [address] [place] [address] Performed By: #### A LLBG ####[facility] [id number] [place] [address] [place] Sodium [Moles/Vol] 135 mmol/L Low 136-144 [facility] Comment on above: Order Comment: Speci men Type: ARTERIAL BLOOD SPECIMENOrdering Facility: [facility] Address: [address] [place] [address] Performed By: #### A LLBG ####[facility] [id number] [place] [address] [place] Base deficit (BldA) [Moles/Vol] -1 mmol/L Normal -2-0 [facility] Comment on above: Order Comment: Speci men Type: ARTERIAL BLOOD SPECIMENOrdering Facility: [facility] Address: [address] [place] [address] Performed By: #### A LLBG ####[facility] [id number] [place] [address] [place] Calcium.ionized (Bld) [Mass/Vol] 1.26 mmol/L Normal 1.08-1.30 [facility] Comment on above: Order Comment: Speci men Type: ARTERIAL BLOOD SPECIMENOrdering Facility: [facility] Address: [address] [place] [address] Performed By: #### A LLBG ####[facility] [id number] [place] [address] [place] Calcium.ionized adjusted to pH 7.4 (BldA) [Moles/Vol] 1.22 mmol/L Normal 1.08-1.30 [facility] Comment on above: Order Comment: Speci men Type: ARTERIAL BLOOD SPECIMENOrdering Facility: [facility] Address: [address] [place] [address] Performed By: #### A LLBG ####[facility] [id number] [place] [address] [place] Carboxyhemoglobin (BldA) [Mass fraction] 1.6 % Normal 0.0-2.0 [facility] Comment on above: Order Comment: Speci men Type: ARTERIAL BLOOD SPECIMENOrdering Facility: [facility] Address: [address] [place] [address] Result Comment: Carb oxyhemoglobin Reference Range for Smokers: 2.0-8.0% Performed By: #### A LLBG ####[facility] [id number] [place] [address] [place] CO2 (Bld) [Partial pressure] 49 mm Hg High 36-46 [facility] Comment on above: Order Comment: Speci men Type: ARTERIAL BLOOD SPECIMENOrdering Facility: [facility] Address: [address] [place] [address] Performed By: #### A LLBG ####[facility] [id number] [place] [address] [place] CO2 adjusted to patient's actual temperature (Bld) [Partial pressure] 49 mmHg High 36-46 [facility] Comment on above: Order Comment: Speci men Type: ARTERIAL BLOOD SPECIMENOrdering Facility: [facility] Address: [address] [place] [address] Performed By: #### A LLBG ####[facility] [id number] [place] [address] [place] Glucose [Mass/Vol] 140 mg/dL High 60-105 [facility] Comment on above: Order Comment: Speci men Type: ARTERIAL BLOOD SPECIMENOrdering Facility: [facility] Address: [address] [place] [address] Performed By: #### A LLBG ####[facility] [id number] [place] [address] [place] HCO3 (Bld) [Moles/Vol] 25 mmol/L Normal 22-26 [facility] Comment on above: Order Comment: Speci men Type: ARTERIAL BLOOD SPECIMENOrdering Facility: [facility] Address: [address] [place] [address] Performed By: #### A LLBG ####[facility] [id number] [place] [id number] [place] Hematocrit (Bld) [Volume fraction] 30.8 % Low 36.0-46.0 [facility] Comment on above: Order Comment: Speci men Type: ARTERIAL BLOOD SPECIMENOrdering Facility: [facility] Address: [address] [place] [address] Performed By: #### A LLBG ####[facility] [id number] [place] [address] [place] Hemoglobin (Bld) [Mass/Vol] 10.0 g/dL Low 11.5-15.5 [facility] Comment on above: Order Comment: Speci men Type: ARTERIAL BLOOD SPECIMENOrdering Facility: [facility] Address: [address] [place] [address] Performed By: #### A LLBG ####[facility] [id number] [place] [address] [place] Lactate [Moles/Vol] 2.6 mmol/L High 0.5-2.2 [facility] Comment on above: Order Comment: Speci men Type: ARTERIAL BLOOD SPECIMENOrdering Facility: [facility] Address: [address] [place] [address] Performed By: #### A LLBG ####[facility] [id number] [place] [address] [place] Methemoglobin (Bld) [Mass fraction] 1.5 % Normal 0.0-1.5 [facility] Comment on above: Order Comment: Speci men Type: ARTERIAL BLOOD SPECIMENOrdering Facility: [facility] Address: [address] [place] [address] Performed By: #### A LLBG ####[facility] [id number] [place] [address] [place] Oxygen (Bld) [Partial pressure] 200 mm Hg High 85-95 [facility] Comment on above: Order Comment: Speci men Type: ARTERIAL BLOOD SPECIMENOrdering Facility: [facility] Address: [address] [place] [address] Performed By: #### A LLBG ####[facility] LABCLIA [id number] [place] [address] [place] Oxygen adjusted to patient's actual temperature (Bld) [Partial pressure] 200 mmHg High 85-95 [facility] Comment on above: Order Comment: Speci men Type: ARTERIAL BLOOD SPECIMENOrdering Facility: [facility] Address: [address] [place] [address] Performed By: #### A LLBG ####[facility] [id number] [place] [address] [place] Oxyhemoglobin (BldA) [Mass fraction] 96 % Normal 95-98 [facility] Comment on above: Order Comment: Speci men Type: ARTERIAL BLOOD SPECIMENOrdering Facility: [facility] Address: [address] [place] [address] Performed By: #### A LLBG ####[facility] [id number] [place] [address] [place] pH (Bld) 7.33 [pH] Low 7.35-7.45 [facility] Comment on above: Order Comment: Speci men Type: ARTERIAL BLOOD SPECIMENOrdering Facility: [facility] Address: [address] [place] [address] Performed By: #### A LLBG ####[facility] [id number] [place] [address] [place] pH adjusted to patient's actual temperature (Bld) 7.33 Low 7.35-7.45 [facility] Comment on above: Order Comment: Speci men Type: ARTERIAL BLOOD SPECIMENOrdering Facility: [facility] Address: [address] [place] [address] Performed By: #### A LLBG ####[facility] [id number] [place] [address] [place] Potassium [Moles/Vol] 3.6 mmol/L Normal 3.5-5.0 [facility] Comment on above: Order Comment: Speci men Type: ARTERIAL BLOOD SPECIMENOrdering Facility: [facility] Address: [address] [place] [address] Performed By: #### A LLBG ####[facility] [id number] [place] [address] [place] Sodium [Moles/Vol] 134 mmol/L Low 136-144 [facility] Comment on above: Order Comment: Speci men Type: ARTERIAL BLOOD SPECIMENOrdering Facility: [facility] Address: [address] [place] [address] Performed By: #### A LLBG ####[facility] [id number] [place] [address] [place] Base excess Calc (Bld) [Moles/Vol] 0 mmol/L Normal 0-2 [facility] Comment on above: Order Comment: Speci men Type: ARTERIAL BLOOD SPECIMENOrdering Facility: [facility] Address: [address] [place] [address] Performed By: #### A LLBG ####[facility] [id number] [place] [address] [place] Calcium.ionized (Bld) [Mass/Vol] 1.10 mmol/L Normal 1.08-1.30 [facility] Comment on above: Order Comment: Speci men Type: ARTERIAL BLOOD SPECIMENOrdering Facility: [facility] Address: [address] [place] [address] Performed By: #### A LLBG ####[facility] [id number] [place] [address] [place] Calcium.ionized adjusted to pH 7.4 (BldA) [Moles/Vol] 1.11 mmol/L Normal 1.08-1.30 [facility] Comment on above: Order Comment: Speci men Type: ARTERIAL BLOOD SPECIMENOrdering Facility: [facility] Address: [address] [place] [address] Performed By: #### A LLBG ####[facility] LABCL[facility] [id number] [place] [address] [place] Carboxyhemoglobin (BldA) [Mass fraction] 2.1 % High 0.0-2.0 [facility] Comment on above: Order Comment: Speci men Type: ARTERIAL BLOOD SPECIMENOrdering Facility: [facility] Address: [address] [place] [address] Result Comment: Carb oxyhemoglobin Reference Range for Smokers: 2.0-8.0% Performed By: #### A LLBG ####[facility] LABCL[facility] [id number] [place] [address] [place] CO2 (Bld) [Partial pressure] 39 mm Hg Normal 36-46 [facility] Comment on above: Order Comment: Speci men Type: ARTERIAL BLOOD SPECIMENOrdering Facility: [facility] Address: [address] [place] [address] Performed By: #### A LLBG ####[facility] LABCL[facility] [id number] [place] [address] [place] CO2 adjusted to patient's actual temperature (Bld) [Partial pressure] 39 mmHg Normal 36-46 [facility] Comment on above: Order Comment: Speci men Type: ARTERIAL BLOOD SPECIMENOrdering Facility: [facility] Address: [address] [place] [address] Performed By: #### A LLBG ####[facility] LABCL[facility] [id number] [place] [address] [place] Glucose [Mass/Vol] 209 mg/dL High 60-105 [facility] Comment on above: Order Comment: Speci men Type: ARTERIAL BLOOD SPECIMENOrdering Facility: [facility] Address: [address] [place] [address] Performed By: #### A LLBG ####[facility] LABCL[facility] [id number] [place] [address] [place] HCO3 (Bld) [Moles/Vol] 24 mmol/L Normal 22-26 [facility] Comment on above: Order Comment: Speci men Type: ARTERIAL BLOOD SPECIMENOrdering Facility: [facility] Address: [address] [place] [address] Performed By: #### A LLBG ####[facility] LABCL[facility] [id number] [place] [address] [place] Hematocrit (Bld) [Volume fraction] 28.4 % Low 36.0-46.0 [facility] Comment on above: Order Comment: Speci men Type: ARTERIAL BLOOD SPECIMENOrdering Facility: [facility] Address: [address] [place] [address] Performed By: #### A LLBG ####[facility] LABCL[facility] [id number] [place] [address] [place] Hemoglobin (Bld) [Mass/Vol] 9.1 g/dL Low 11.5-15.5 [facility] Comment on above: Order Comment: Speci men Type: ARTERIAL BLOOD SPECIMENOrdering Facility: [facility] Address: [address] [place] [address] Performed By: #### A LLBG ####[facility] [id number] [place] [address] [place] Lactate [Moles/Vol] 3.9 mmol/L High 0.5-2.2 [facility] Comment on above: Order Comment: Speci men Type: ARTERIAL BLOOD SPECIMENOrdering Facility: [facility] Address: [address] [place] [address] Performed By: #### A LLBG ####[facility] LABCL[facility] [id number] [place] [address] [place] Methemoglobin (Bld) [Mass fraction] 0.9 % Normal 0.0-1.5 [facility] Comment on above: Order Comment: Speci men Type: ARTERIAL BLOOD SPECIMENOrdering Facility: [facility] Address: [address] [id number] Performed By: #### A LLBG ####[facility] LABCLIA [id number] [address] [address] [place] Oxygen (Bld) [Partial pressure] 376 mm Hg High 85-95 [facility] Comment on above: Order Comment: Speci men Type: ARTERIAL BLOOD SPECIMENOrdering Facility: [facility] Address: [address] [place], [place] [address] Performed By: #### A LLBG ####[facility] LABCL[facility] [id number] [place] [address] [place] Oxygen adjusted to patient's actual temperature (Bld) [Partial pressure] 376 mmHg High 85-95 [facility] Comment on above: Order Comment: Speci men Type: ARTERIAL BLOOD SPECIMENOrdering Facility: [facility] Address: [address] [place] [address] Performed By: #### A LLBG ####[facility] LABCL[facility] [id number] [place] [address] [place] Oxyhemoglobin (BldA) [Mass fraction] 97 % Normal 95-98 [facility] Comment on above: Order Comment: Speci men Type: ARTERIAL BLOOD SPECIMENOrdering Facility: [facility] Address: [address] [place] [address] Performed By: #### A LLBG ####[facility] LABCL[facility] [id number] [place] [address] [place] pH (Bld) 7.41 [pH] Normal 7.35-7.45 [facility] Comment on above: Order Comment: Speci men Type: ARTERIAL BLOOD SPECIMENOrdering Facility: [facility] Address: [address] [place], [place] [address] Performed By: #### A LLBG ####[facility]CL[facility] [id number] [place] [address] [place] pH adjusted to patient's actual temperature (Bld) 7.41 Normal 7.35-7.45 [facility] Comment on above: Order Comment: Speci men Type: ARTERIAL BLOOD SPECIMENOrdering Facility: [facility] Address: [address] [place] [address] Performed By: #### A LLBG ####[facility]CL[facility] [id number] [place] [address] [place] Potassium [Moles/Vol] 4.4 mmol/L Normal 3.5-5.0 [facility] Comment on above: Order Comment: Speci men Type: ARTERIAL BLOOD SPECIMENOrdering Facility: [facility] Address: [address] [place] [address] Performed By: #### A LLBG ####[facility]CL[facility] [id number] [place] [address] [place] Sodium [Moles/Vol] 133 mmol/L Low 136-144 [facility] Comment on above: Order Comment: Speci men Type: ARTERIAL BLOOD SPECIMENOrdering Facility: [facility] Address: [address] [place] [address] Performed By: #### A LLBG ####[facility] [id number] [place] [address] [place] Base excess Calc (Bld) [Moles/Vol] 0 mmol/L Normal 0-2 [facility] Comment on above: Order Comment: Speci men Type: ARTERIAL BLOOD SPECIMENOrdering Facility: [facility] Address: [address] [place] [address] Performed By: #### A LLBG ####[facility] LABCL[facility] [id number] [place] [address] [place] Calcium.ionized (Bld) [Mass/Vol] 1.08 mmol/L Normal 1.08-1.30 [facility] Comment on above: Order Comment: Speci men Type: ARTERIAL BLOOD SPECIMENOrdering Facility: [facility] Address: [address] [place] [address] Performed By: #### A LLBG ####[facility] [id number] [place] [address] [place] Calcium.ionized adjusted to pH 7.4 (BldA) [Moles/Vol] 1.06 mmol/L Low 1.08-1.30 [facility] Comment on above: Order Comment: Speci men Type: ARTERIAL BLOOD SPECIMENOrdering Facility: [facility] Address: [address] [place] [address] Performed By: #### A LLBG ####[facility] [id number] [place] [address] [place] Carboxyhemoglobin (BldA) [Mass fraction] 2.0 % Normal 0.0-2.0 [facility] Comment on above: Order Comment: Speci men Type: ARTERIAL BLOOD SPECIMENOrdering Facility: [facility] Address: [address] [place] [address] Result Comment: Carb oxyhemoglobin Reference Range for Smokers: 2.0-8.0% Performed By: #### A LLBG ####[facility]CL[facility] [id number] [place] [address] [place] CO2 (Bld) [Partial pressure] 44 mm Hg Normal 36-46 [facility] Comment on above: Order Comment: Speci men Type: ARTERIAL BLOOD SPECIMENOrdering Facility: [facility] Address: [address] [place] [address] Performed By: #### A LLBG ####[facility]CL[facility] [id number] [place] [address] [place] CO2 adjusted to patient's actual temperature (Bld) [Partial pressure] 44 mmHg Normal 36-46 [facility] Comment on above: Order Comment: Speci men Type: ARTERIAL BLOOD SPECIMENOrdering Facility: [facility] Address: [address] [place] [address] Performed By: #### A LLBG ####[facility]CL[facility] [id number] [place] [address] [place] Glucose [Mass/Vol] 253 mg/dL High 60-105 [facility] Comment on above: Order Comment: Speci men Type: ARTERIAL BLOOD SPECIMENOrdering Facility: [facility] Address: [address] [place] [address] Performed By: #### A LLBG ####[facility] [id number] [place] [address] [place] HCO3 (Bld) [Moles/Vol] 25 mmol/L Normal 22-26 [facility] Comment on above: Order Comment: Speci men Type: ARTERIAL BLOOD SPECIMENOrdering Facility: [facility] Address: [address] [place] [address] Performed By: #### A LLBG ####[facility] [id number] [place] [address] [place] Hematocrit (Bld) [Volume fraction] 28.3 % Low 36.0-46.0 [facility] Comment on above: Order Comment: Speci men Type: ARTERIAL BLOOD SPECIMENOrdering Facility: [facility] Address: [address] [place] [address] Performed By: #### A LLBG ####[facility] [id number] [place] [address] [place] Hemoglobin (Bld) [Mass/Vol] 9.1 g/dL Low 11.5-15.5 [facility] Comment on above: Order Comment: Speci men Type: ARTERIAL BLOOD SPECIMENOrdering Facility: [facility] Address: [address] [place] [address] Performed By: #### A LLBG ####[facility]CL[facility] [id number] [address] [id number] [address] [place] Lactate [Moles/Vol] 4.4 mmol/L High 0.5-2.2 [facility] Comment on above: Order Comment: Speci men Type: ARTERIAL BLOOD SPECIMENOrdering Facility: [facility] Address: [address] [place] [address] Performed By: #### A LLBG ####[facility] [id number] [place] [address] [place] Methemoglobin (Bld) [Mass fraction] 0.9 % Normal 0.0-1.5 [facility] Comment on above: Order Comment: Speci men Type: ARTERIAL BLOOD SPECIMENOrdering Facility: [facility] Address: [address] [place] [address] Performed By: #### A LLBG ####[facility] [id number] [place] [address] [place] Oxygen (Bld) [Partial pressure] 295 mm Hg High 85-95 [facility] Comment on above: Order Comment: Speci men Type: ARTERIAL BLOOD SPECIMENOrdering Facility: [facility] Address: [address] [place] [address] Performed By: #### A LLBG ####[facility] [id number] [place] [address] [place] Oxygen adjusted to patient's actual temperature (Bld) [Partial pressure] 295 mmHg High 85-95 [facility] Comment on above: Order Comment: Speci men Type: ARTERIAL BLOOD SPECIMENOrdering Facility: [facility] Address: [address] [id number] Performed By: #### A LLBG ####[facility] [id number] [place] [address] [place] Oxyhemoglobin (BldA) [Mass fraction] 97 % Normal 95-98 [facility] Comment on above: Order Comment: Speci men Type: ARTERIAL BLOOD SPECIMENOrdering Facility: [facility] Address: [address] [place] [address] Performed By: #### A LLBG ####[facility] [id number] [place] [address] [place] pH (Bld) 7.37 [pH] Normal 7.35-7.45 [facility] Comment on above: Order Comment: Speci men Type: ARTERIAL BLOOD SPECIMENOrdering Facility: [facility] Address: [address] [place] [address] Performed By: #### A LLBG ####[facility] [id number] [place] [address] [place] pH adjusted to patient's actual temperature (Bld) 7.37 Normal 7.35-7.45 [facility] Comment on above: Order Comment: Speci men Type: ARTERIAL BLOOD SPECIMENOrdering Facility: [facility] Address: [address] [place] [address] Performed By: #### A LLBG ####[facility] [id number] [place] [address] [place] Potassium [Moles/Vol] 4.9 mmol/L Normal 3.5-5.0 [facility] Comment on above: Order Comment: Speci men Type: ARTERIAL BLOOD SPECIMENOrdering Facility: [facility] Address: [address] [place] [address] Performed By: #### A LLBG ####[facility] [id number] [place] [address] [place] Sodium [Moles/Vol] 132 mmol/L Low 136-144 [facility] Comment on above: Order Comment: Speci men Type: ARTERIAL BLOOD SPECIMENOrdering Facility: [facility] Address: [address] [place] [address] Performed By: #### A LLBG ####[facility] [id number] [place] [address] [place] Base deficit (BldA) [Moles/Vol] -3 mmol/L Low -2-0 [facility] Comment on above: Order Comment: Speci men Type: ARTERIAL BLOOD SPECIMENOrdering Facility: [facility] Address: [address] [place] [address] Performed By: #### A LLBG ####[facility] [id number] [place] [address] [place] Calcium.ionized (Bld) [Mass/Vol] 1.20 mmol/L Normal 1.08-1.30 [facility] Comment on above: Order Comment: Speci men Type: ARTERIAL BLOOD SPECIMENOrdering Facility: [facility] Address: [address] [place] [address] Performed By: #### A LLBG ####[facility] [id number] [place] [address] [place] Calcium.ionized adjusted to pH 7.4 (BldA) [Moles/Vol] 1.18 mmol/L Normal 1.08-1.30 [facility] Comment on above: Order Comment: Speci men Type: ARTERIAL BLOOD SPECIMENOrdering Facility: [facility] Address: [address] [place] [address] Performed By: #### A LLBG ####[facility] [id number] [place] [address] [place] Carboxyhemoglobin (BldA) [Mass fraction] 1.6 % Normal 0.0-2.0 [facility] Comment on above: Order Comment: Speci men Type: ARTERIAL BLOOD SPECIMENOrdering Facility: [facility] Address: [address] [place] [address] Result Comment: Carb oxyhemoglobin Reference Range for Smokers: 2.0-8.0% Performed By: #### A LLBG ####[facility] [id number] [place] [address] [place] CO2 (Bld) [Partial pressure] 40 mm Hg Normal 36-46 [facility] Comment on above: Order Comment: Speci men Type: ARTERIAL BLOOD SPECIMENOrdering Facility: [facility] Address: [address] [place] [address] Performed By: #### A LLBG ####[facility] [id number] [place] [address] [place] CO2 adjusted to patient's actual temperature (Bld) [Partial pressure] 40 mmHg Normal 36-46 [facility] Comment on above: Order Comment: Speci men Type: ARTERIAL BLOOD SPECIMENOrdering Facility: [facility] Address: [address] [place] [address] Performed By: #### A LLBG ####[facility] [id number] [place] [address] [place] Glucose [Mass/Vol] 209 mg/dL High 60-105 [facility] Comment on above: Order Comment: Speci men Type: ARTERIAL BLOOD SPECIMENOrdering Facility: [facility] Address: [address] [place] [address] Performed By: #### A LLBG ####[facility] [id number] [place] [address] [place] HCO3 (Bld) [Moles/Vol] 22 mmol/L Normal 22-26 [facility] Comment on above: Order Comment: Speci men Type: ARTERIAL BLOOD SPECIMENOrdering Facility: [facility] Address: [address] [place] [address] Performed By: #### A LLBG ####[facility] [id number] [place] [address] [place] Hematocrit (Bld) [Volume fraction] 33.5 % Low 36.0-46.0 [facility] Comment on above: Order Comment: Speci men Type: ARTERIAL BLOOD SPECIMENOrdering Facility: [facility] Address: [address] [place] [address] Performed By: #### A LLBG ####[facility] [id number] [place] [address] [place] Hemoglobin (Bld) [Mass/Vol] 10.9 g/dL Low 11.5-15.5 [facility] Comment on above: Order Comment: Speci men Type: ARTERIAL BLOOD SPECIMENOrdering Facility: [facility] Address: [address] [place] [address] Performed By: #### A LLBG ####[facility] [id number] [place] [address] [place] Lactate [Moles/Vol] 3.0 mmol/L High 0.5-2.2 [facility] Comment on above: Order Comment: Speci men Type: ARTERIAL BLOOD SPECIMENOrdering Facility: [facility] Address: [address] [place] [address] Performed By: #### A LLBG ####[facility] [id number] [place] [address] [place] Methemoglobin (Bld) [Mass fraction] 1.6 % High 0.0-1.5 [facility] Comment on above: Order Comment: Speci men Type: ARTERIAL BLOOD SPECIMENOrdering Facility: [facility] Address: [address] [place] [address] Performed By: #### A LLBG ####[facility] [id number] [place] [address] [place] Oxygen (Bld) [Partial pressure] 359 mm Hg High 85-95 [facility] Comment on above: Order Comment: Speci men Type: ARTERIAL BLOOD SPECIMENOrdering Facility: [facility] Address: [address] [place] [address] Performed By: #### A LLBG ####[facility] [id number] [place] [address] [place] Oxygen adjusted to patient's actual temperature (Bld) [Partial pressure] 359 mmHg High 85-95 [facility] Comment on above: Order Comment: Speci men Type: ARTERIAL BLOOD SPECIMENOrdering Facility: [facility] Address: [address] [place] [address] Performed By: #### A LLBG ####[facility] [id number] [address] [address] [place] Oxyhemoglobin (BldA) [Mass fraction] 96 % Normal 95-98 [facility] Comment on above: Order Comment: Speci men Type: ARTERIAL BLOOD SPECIMENOrdering Facility: [facility] Address: [address] [place] [address] Performed By: #### A LLBG ####[facility] [id number] [place] [address] [place] pH (Bld) 7.36 [pH] Normal 7.35-7.45 [facility] Comment on above: Order Comment: Speci men Type: ARTERIAL BLOOD SPECIMENOrdering Facility: [facility] Address: [address] [place] [address] Performed By: #### A LLBG ####[facility] [id number] [place] [address] [place] pH adjusted to patient's actual temperature (Bld) 7.36 Normal 7.35-7.45 [facility] Comment on above: Order Comment: Speci men Type: ARTERIAL BLOOD SPECIMENOrdering Facility: [facility] Address: [address] [place] [address] Performed By: #### A LLBG ####[facility] [id number] [place] [address] [place] Potassium [Moles/Vol] 5.0 mmol/L Normal 3.5-5.0 [facility] Comment on above: Order Comment: Speci men Type: ARTERIAL BLOOD SPECIMENOrdering Facility: [facility] Address: [address] [place] [address] Performed By: #### A LLBG ####[facility] [id number] [place] [address] [place] Sodium [Moles/Vol] 133 mmol/L Low 136-144 [facility] Comment on above: Order Comment: Speci men Type: ARTERIAL BLOOD SPECIMENOrdering Facility: [facility] Address: [address] [place] [address] Performed By: #### A LLBG ####[facility] [id number] [place] [address] [place] Base deficit (BldA) [Moles/Vol] -3 mmol/L Low -2-0 [facility] Comment on above: Order Comment: Speci men Type: ARTERIAL BLOOD SPECIMENOrdering Facility: [facility] Address: [address] [place] [address] Performed By: #### A LLBG ####[facility] [id number] [place] [address] [place] Calcium.ionized (Bld) [Mass/Vol] 1.16 mmol/L Normal 1.08-1.30 [facility] Comment on above: Order Comment: Speci men Type: ARTERIAL BLOOD SPECIMENOrdering Facility: [facility] Address: [address] [place] [address] Performed By: #### A LLBG ####[facility] [id number] [place] [address] [place] Calcium.ionized adjusted to pH 7.4 (BldA) [Moles/Vol] 1.14 mmol/L Normal 1.08-1.30 [facility] Comment on above: Order Comment: Speci men Type: ARTERIAL BLOOD SPECIMENOrdering Facility: [facility] Address: [address] [place] [address] Performed By: #### A LLBG ####[facility] [id number] [place] [address] [place] Carboxyhemoglobin (BldA) [Mass fraction] 1.0 % Normal 0.0-2.0 [facility] Comment on above: Order Comment: Speci men Type: ARTERIAL BLOOD SPECIMENOrdering Facility: [facility] Address: [address] [place] [address] Result Comment: Carb oxyhemoglobin Reference Range for Smokers: 2.0-8.0% Performed By: #### A LLBG ####[facility] [id number] [place] [address] [place] CO2 (Bld) [Partial pressure] 38 mm Hg Normal 36-46 [facility] Comment on above: Order Comment: Speci men Type: ARTERIAL BLOOD SPECIMENOrdering Facility: [facility] Address: [address] [place] [address] Performed By: #### A LLBG ####[facility] [id number] [address] [place] CO2 adjusted to patient's actual temperature (Bld) [Partial pressure] 38 mmHg Normal 36-46 [facility] Comment on above: Order Comment: Speci men Type: ARTERIAL BLOOD SPECIMENOrdering Facility: [facility] Address: [address] [place] [address] Performed By: #### A LLBG ####[facility] [id number] [place] [address] [place] Glucose [Mass/Vol] 242 mg/dL High 60-105 [facility] Comment on above: Order Comment: Speci men Type: ARTERIAL BLOOD SPECIMENOrdering Facility: [facility] Address: [address] [place] [address] Performed By: #### A LLBG ####[facility] [id number] [place] [address] [place] HCO3 (Bld) [Moles/Vol] 21 mmol/L Low 22-26 [facility] Comment on above: Order Comment: Speci men Type: ARTERIAL BLOOD SPECIMENOrdering Facility: [facility] Address: [address] [place] [address] Performed By: #### A LLBG ####[facility] [id number] [place] [address] [place] Hematocrit (Bld) [Volume fraction] 33.0 % Low 36.0-46.0 [facility] Comment on above: Order Comment: Speci men Type: ARTERIAL BLOOD SPECIMENOrdering Facility: [facility] Address: [address] [place] [address] Performed By: #### A LLBG ####[facility] [id number] [place] [address] [place] Hemoglobin (Bld) [Mass/Vol] 10.7 g/dL Low 11.5-15.5 [facility] Comment on above: Order Comment: Speci men Type: ARTERIAL BLOOD SPECIMENOrdering Facility: [facility] Address: [address] [place] [address] Performed By: #### A LLBG ####[facility] [id number] [place] [address] [place] Methemoglobin (Bld) [Mass fraction] 0.9 % Normal 0.0-1.5 [facility] Comment on above: Order Comment: Speci men Type: ARTERIAL BLOOD SPECIMENOrdering Facility: [facility] Address: [address] [place] [address] Performed By: #### A LLBG ####[facility] [id number] [place] [address] [place] Oxygen (Bld) [Partial pressure] 439 mm Hg High 85-95 [facility] Comment on above: Order Comment: Speci men Type: ARTERIAL BLOOD SPECIMENOrdering Facility: [facility] Address: [address] [place] [address] Performed By: #### A LLBG ####[facility] [id number] [place] [address] [place] Oxygen adjusted to patient's actual temperature (Bld) [Partial pressure] 439 mmHg High 85-95 [facility] Comment on above: Order Comment: Speci men Type: ARTERIAL BLOOD SPECIMENOrdering Facility: [facility] Address: [address] [place] [address] Performed By: #### A LLBG ####[facility] [id number] [place] [address] [place] Oxyhemoglobin (BldA) [Mass fraction] 96 % Normal 95-98 [facility] Comment on above: Order Comment: Speci men Type: ARTERIAL BLOOD SPECIMENOrdering Facility: [facility] Address: [address] [place] [address] Performed By: #### A LLBG ####[facility] [id number] [place] [address] [place] pH (Bld) 7.37 [pH] Normal 7.35-7.45 [facility] Comment on above: Order Comment: Speci men Type: ARTERIAL BLOOD SPECIMENOrdering Facility: [facility] Address: [address] [place] [address] Performed By: #### A LLBG ####[facility] [id number] [place] [address] [place] pH adjusted to patient's actual temperature (Bld) 7.37 Normal 7.35-7.45 [facility] Comment on above: Order Comment: Speci men Type: ARTERIAL BLOOD SPECIMENOrdering Facility: [facility] Address: [address] [place] [address] Performed By: #### A LLBG ####[facility] [id number] [place] [address] [place] Potassium [Moles/Vol] 5.8 mmol/L High 3.5-5.0 [facility] Comment on above: Order Comment: Speci men Type: ARTERIAL BLOOD SPECIMENOrdering Facility: [facility] Address: [address] [place] [address] Performed By: #### A LLBG ####[facility] [id number] [place] [address] [place] Sodium [Moles/Vol] 129 mmol/L Low 136-144 [facility] Comment on above: Order Comment: Speci men Type: ARTERIAL BLOOD SPECIMENOrdering Facility: [facility] Address: [address] [place] [address] Performed By: #### A LLBG ####[facility] [id number] [place] [address] [place] Base deficit (BldA) [Moles/Vol] -2 mmol/L Normal -2-0 [facility] Comment on above: Order Comment: Speci men Type: ARTERIAL BLOOD SPECIMENOrdering Facility: [facility] Address: [address] [place] [address] Performed By: #### A LLBG ####[facility] [id number] [place] [address] [place] Calcium.ionized (Bld) [Mass/Vol] 1.29 mmol/L Normal 1.08-1.30 [facility] Comment on above: Order Comment: Speci men Type: ARTERIAL BLOOD SPECIMENOrdering Facility: [facility] Address: [address] [place] [address] Performed By: #### A LLBG ####[facility] [id number] [place] [address] [place] Calcium.ionized adjusted to pH 7.4 (BldA) [Moles/Vol] 1.24 mmol/L Normal 1.08-1.30 [facility] Comment on above: Order Comment: Speci men Type: ARTERIAL BLOOD SPECIMENOrdering Facility: [facility] Address: [address] [place] [address] Performed By: #### A LLBG ####[facility] [id number] [place] [address] [place] Carboxyhemoglobin (BldA) [Mass fraction] 1.7 % Normal 0.0-2.0 [facility] Comment on above: Order Comment: Speci men Type: ARTERIAL BLOOD SPECIMENOrdering Facility: [facility] Address: [address] [place] [address] Result Comment: Carb oxyhemoglobin Reference Range for Smokers: 2.0-8.0% Performed By: #### A LLBG ####[facility] [id number] [place] [address] [place] CO2 (Bld) [Partial pressure] 45 mm Hg Normal 36-46 [facility] Comment on above: Order Comment: Speci men Type: ARTERIAL BLOOD SPECIMENOrdering Facility: [facility] Address: [address] [place] [address] Performed By: #### A LLBG ####[facility] [id number] [place] [address] [place] CO2 adjusted to patient's actual temperature (Bld) [Partial pressure] 45 mmHg Normal 36-46 [facility] Comment on above: Order Comment: Speci men Type: ARTERIAL BLOOD SPECIMENOrdering Facility: [facility] Address: [address] [place] [address] Performed By: #### A LLBG ####[facility] [id number] [place] [address] [place] Glucose [Mass/Vol] 197 mg/dL High 60-105 [facility] Comment on above: Order Comment: Speci men Type: ARTERIAL BLOOD SPECIMENOrdering Facility: [facility] Address: [address] [place] [address] Performed By: #### A LLBG ####[facility] [id number] [place] [address] [place] HCO3 (Bld) [Moles/Vol] 23 mmol/L Normal 22-26 [facility] Comment on above: Order Comment: Speci men Type: ARTERIAL BLOOD SPECIMENOrdering Facility: [facility] Address: [address] [place] [address] Performed By: #### A LLBG ####[facility] [id number] [place] [address] [place] Hematocrit (Bld) [Volume fraction] 39.4 % Normal 36.0-46.0 [facility] Comment on above: Order Comment: Speci men Type: ARTERIAL BLOOD SPECIMENOrdering Facility: [facility] Address: [address] [place] [address] Performed By: #### A LLBG ####[facility] [id number] [place] [address] [place] Hemoglobin (Bld) [Mass/Vol] 12.8 g/dL Normal 11.5-15.5 [facility] Comment on above: Order Comment: Speci men Type: ARTERIAL BLOOD SPECIMENOrdering Facility: [facility] Address: [address] [place] [address] Performed By: #### A LLBG ####[facility] [id number] [place] [address] [place] Lactate [Moles/Vol] 1.4 mmol/L Normal 0.5-2.2 [facility] Comment on above: Order Comment: Speci men Type: ARTERIAL BLOOD SPECIMENOrdering Facility: [facility] Address: [address] [place] [address] Performed By: #### A LLBG ####[facility] [id number] [place] [address] [place] Methemoglobin (Bld) [Mass fraction] 1.6 % High 0.0-1.5 [facility] Comment on above: Order Comment: Speci men Type: ARTERIAL BLOOD SPECIMENOrdering Facility: [facility] Address: [address] [place] [address] Performed By: #### A LLBG ####[facility] [id number] [place] [address] [place] Oxygen (Bld) [Partial pressure] 168 mm Hg High 85-95 [facility] Comment on above: Order Comment: Speci men Type: ARTERIAL BLOOD SPECIMENOrdering Facility: [facility] Address: [address] [place] [address] Performed By: #### A LLBG ####[facility] [id number] [place] [address] [place] Oxygen adjusted to patient's actual temperature (Bld) [Partial pressure] 168 mmHg High 85-95 [facility] Comment on above: Order Comment: Speci men Type: ARTERIAL BLOOD SPECIMENOrdering Facility: [facility] Address: [address] [place] [address] Performed By: #### A LLBG ####[facility] [id number] [place] [address] [place] Oxyhemoglobin (BldA) [Mass fraction] 96 % Normal 95-98 [facility] Comment on above: Order Comment: Speci men Type: ARTERIAL BLOOD SPECIMENOrdering Facility: [facility] Address: [address] [place] [address] Performed By: #### A LLBG ####[facility] [id number] [place] [id number] [place] pH (Bld) 7.33 [pH] Low 7.35-7.45 [facility] Comment on above: Order Comment: Speci men Type: ARTERIAL BLOOD SPECIMENOrdering Facility: [facility] Address: [address] [place] [address] Performed By: #### A LLBG ####[facility] [id number] [place] [id number] [place] pH adjusted to patient's actual temperature (Bld) 7.33 Low 7.35-7.45 [facility] Comment on above: Order Comment: Speci men Type: ARTERIAL BLOOD SPECIMENOrdering Facility: [facility] Address: [address] [place] [address] Performed By: #### A LLBG ####[facility] [id number] [place] [address] [place] Potassium [Moles/Vol] 4.3 mmol/L Normal 3.5-5.0 [facility] Comment on above: Order Comment: Speci men Type: ARTERIAL BLOOD SPECIMENOrdering Facility: [facility] Address: [address] [place] [address] Performed By: #### A LLBG ####[facility] [id number] [place] [address] [place] Sodium [Moles/Vol] 135 mmol/L Low 136-144 [facility] Comment on above: Order Comment: Speci men Type: ARTERIAL BLOOD SPECIMENOrdering Facility: [facility] Address: [address] [place] [address] Performed By: #### A LLBG ####[facility] [id number] [place] [address] [place] Base deficit (BldA) [Moles/Vol] -2 mmol/L Normal -2-0 [facility] Comment on above: Order Comment: Speci men Type: ARTERIAL BLOOD SPECIMENOrdering Facility: [facility] Address: [address] [place] [address] Performed By: #### A LLBG ####[facility] [id number] [place] [address] [place] Calcium.ionized (Bld) [Mass/Vol] 1.28 mmol/L Normal 1.08-1.30 [facility] Comment on above: Order Comment: Speci men Type: ARTERIAL BLOOD SPECIMENOrdering Facility: [facility] Address: [address] [place] [address] Performed By: #### A LLBG ####[facility] [id number] [place] [address] [place] Calcium.ionized adjusted to pH 7.4 (BldA) [Moles/Vol] 1.30 mmol/L Normal 1.08-1.30 [facility] Comment on above: Order Comment: Speci men Type: ARTERIAL BLOOD SPECIMENOrdering Facility: [facility] Address: [address] [place] [address] Performed By: #### A LLBG ####[facility] [id number] [place] [address] [place] Carboxyhemoglobin (BldA) [Mass fraction] 2.2 % High 0.0-2.0 [facility] Comment on above: Order Comment: Speci men Type: ARTERIAL BLOOD SPECIMENOrdering Facility: [facility] Address: [address] [place] [address] Result Comment: Carb oxyhemoglobin Reference Range for Smokers: 2.0-8.0% Performed By: #### A LLBG ####[facility] [id number] [place] [address] [place] CO2 (Bld) [Partial pressure] 33 mm Hg Low 36-46 [facility] Comment on above: Order Comment: Speci men Type: ARTERIAL BLOOD SPECIMENOrdering Facility: [facility] Address: [address] [place] [address] Performed By: #### A LLBG ####[facility] [id number] [place] [address] [place] CO2 adjusted to patient's actual temperature (Bld) [Partial pressure] 33 mmHg Low 36-46 [facility] Comment on above: Order Comment: Speci men Type: ARTERIAL BLOOD SPECIMENOrdering Facility: [facility] Address: [address] [place] [address] Performed By: #### A LLBG ####[facility] [id number] [place] [address] [place] Glucose [Mass/Vol] 173 mg/dL High 60-105 [facility] Comment on above: Order Comment: Speci men Type: ARTERIAL BLOOD SPECIMENOrdering Facility: [facility] Address: [address] [place] [address] Performed By: #### A LLBG ####[facility] [id number] [place] [address] [place] HCO3 (Bld) [Moles/Vol] 21 mmol/L Low 22-26 [facility] Comment on above: Order Comment: Speci men Type: ARTERIAL BLOOD SPECIMENOrdering Facility: [facility] Address: [address] [place] [address] Performed By: #### A LLBG ####[facility] [id number] [place] [address] [place] Hematocrit (Bld) [Volume fraction] 41.6 % Normal 36.0-46.0 [facility] Comment on above: Order Comment: Speci men Type: ARTERIAL BLOOD SPECIMENOrdering Facility: [facility] Address: [address] [place] [address] Performed By: #### A LLBG ####[facility] [id number] [place] [address] [place] Hemoglobin (Bld) [Mass/Vol] 13.5 g/dL Normal 11.5-15.5 [facility] Comment on above: Order Comment: Speci men Type: ARTERIAL BLOOD SPECIMENOrdering Facility: [facility] Address: [address] [place] [address] Performed By: #### A LLBG ####[facility] [id number] [place] [address] [place] Lactate [Moles/Vol] 2.1 mmol/L Normal 0.5-2.2 [facility] Comment on above: Order Comment: Speci men Type: ARTERIAL BLOOD SPECIMENOrdering Facility: [facility] Address: [address] [place] [id number] Performed By: #### A LLBG ####[facility] [id number] [place] [address] [place] Methemoglobin (Bld) [Mass fraction] 1.3 % Normal 0.0-1.5 [facility] Comment on above: Order Comment: Speci men Type: ARTERIAL BLOOD SPECIMENOrdering Facility: [facility] Address: [address] [place] [id number] Performed By: #### A LLBG ####[facility] [id number] [place] [address] [place] Oxygen (Bld) [Partial pressure] 114 mm Hg High 85-95 [facility] Comment on above: Order Comment: Speci men Type: ARTERIAL BLOOD SPECIMENOrdering Facility: [facility] Address: [address] [place] [id number] Performed By: #### A LLBG ####[facility] [id number] [place] [address] [place] Oxygen adjusted to patient's actual temperature (Bld) [Partial pressure] 114 mmHg High 85-95 [facility] Comment on above: Order Comment: Speci men Type: ARTERIAL BLOOD SPECIMENOrdering Facility: [facility] Address: [address] [place] [address] Performed By: #### A LLBG ####[facility] [id number] [place] [id number] [place] Oxyhemoglobin (BldA) [Mass fraction] 95 % Normal 95-98 [facility] Comment on above: Order Comment: Speci men Type: ARTERIAL BLOOD SPECIMENOrdering Facility: [facility] Address: [address] [place] [address] Performed By: #### A LLBG ####[facility] [id number] [place] [address] [place] pH (Bld) 7.42 [pH] Normal 7.35-7.45 [facility] Comment on above: Order Comment: Speci men Type: ARTERIAL BLOOD SPECIMENOrdering Facility: [facility] Address: [address] [place] [address] Performed By: #### A LLBG ####[facility] [id number] [place] [address] [place] pH adjusted to patient's actual temperature (Bld) 7.42 Normal 7.35-7.45 [facility] Comment on above: Order Comment: Speci men Type: ARTERIAL BLOOD SPECIMENOrdering Facility: [facility] Address: [address] [place] [address] Performed By: #### A LLBG ####[facility] [id number] [place] [address] [place] Potassium [Moles/Vol] 4.1 mmol/L Normal 3.5-5.0 [facility] Comment on above: Order Comment: Speci men Type: ARTERIAL BLOOD SPECIMENOrdering Facility: [facility] Address: [address] [place] [address] Performed By: #### A LLBG ####[facility] [id number] [place] [address] [place] Sodium [Moles/Vol] 133 mmol/L Low 136-144 [facility] Comment on above: Order Comment: Speci men Type: ARTERIAL BLOOD SPECIMENOrdering Facility: [facility] Address: [address] [place] [address] Performed By: #### A LLBG ####[facility] [id number] [place] [address] [place] ARTERIAL BLOOD GASES WITH IO NIZED MAGNESIUMon 02-05-2024 Base excess Calc (Bld) [Moles/Vol] 0 mmol/L Normal 0-2 [facility] Comment on above: Order Comment: Speci men Type: ARTERIAL BLOOD SPECIMENOrdering Facility: [facility] Address: [address] [place] [address] Performed By: #### A LLMG ####[facility] [id number] [place] [address] [place] Calcium.ionized (Bld) [Mass/Vol] 1.28 mmol/L Normal 1.08-1.30 [facility] Comment on above: Order Comment: Speci men Type: ARTERIAL BLOOD SPECIMENOrdering Facility: [facility] Address: [address] [place] [address] Performed By: #### A LLMG ####[facility] [id number] [place] [address] [place] Calcium.ionized adjusted to pH 7.4 (BldA) [Moles/Vol] 1.27 mmol/L Normal 1.08-1.30 [facility] Comment on above: Order Comment: Speci men Type: ARTERIAL BLOOD SPECIMENOrdering Facility: [facility] Address: [address] [place] [address] Performed By: #### A LLMG ####[facility] [id number] [place] [address] [place] Carboxyhemoglobin (BldA) [Mass fraction] 1.2 % Normal 0.0-2.0 [facility] Comment on above: Order Comment: Speci men Type: ARTERIAL BLOOD SPECIMENOrdering Facility: [facility] Address: [address] [place] [address] Result Comment: Carb oxyhemoglobin Reference Range for Smokers: 2.0-8.0% Performed By: #### A LLMG ####[facility] [id number] [place] [address] [place] CO2 (Bld) [Partial pressure] 42 mm Hg Normal 36-46 [facility] Comment on above: Order Comment: Speci men Type: ARTERIAL BLOOD SPECIMENOrdering Facility: [facility] Address: [address] [place] [address] Performed By: #### A LLMG ####[facility] [id number] [place] [address] [place] CO2 adjusted to patient's actual temperature (Bld) [Partial pressure] 42 mmHg Normal 36-46 [facility] Comment on above: Order Comment: Speci men Type: ARTERIAL BLOOD SPECIMENOrdering Facility: [facility] Address: [address] [place] [address] Performed By: #### A LLMG ####[facility] [id number] [place] [address] [place] Glucose [Mass/Vol] 119 mg/dL High 60-105 [facility] Comment on above: Order Comment: Speci men Type: ARTERIAL BLOOD SPECIMENOrdering Facility: [facility] Address: [address] [place] [address] Performed By: #### A LLMG ####[facility] [id number] [place] [address] [place] HCO3 (Bld) [Moles/Vol] 25 mmol/L Normal 22-26 [facility] Comment on above: Order Comment: Speci men Type: ARTERIAL BLOOD SPECIMENOrdering Facility: [facility] Address: [address] [place] [address] Performed By: #### A LLMG ####[facility] LABCLIA [id number] [place] [address] [place] Hematocrit (Bld) [Volume fraction] 35.4 % Low 36.0-46.0 [facility] Comment on above: Order Comment: Speci men Type: ARTERIAL BLOOD SPECIMENOrdering Facility: [facility] Address: [address] [place] [address] Performed By: #### A LLMG ####[facility] LABCLIA [id number] [place] [address] [place] Hemoglobin (Bld) [Mass/Vol] 11.5 g/dL Normal 11.5-15.5 [facility] Comment on above: Order Comment: Speci men Type: ARTERIAL BLOOD SPECIMENOrdering Facility: [facility] Address: [address] [place] [address] Performed By: #### A LLMG ####[facility] LABIA [id number] [place] [address] [place] Lactate [Moles/Vol] 2.4 mmol/L High 0.5-2.2 [facility] Comment on above: Order Comment: Speci men Type: ARTERIAL BLOOD SPECIMENOrdering Facility: [facility] Address: [address] [place] [address] Performed By: #### A LLMG ####[facility] LABIA [id number] [place] [address] [place] Magnesium [Moles/Vol] 0.51 mmol/L Normal 0.45-0.60 [facility] Comment on above: Order Comment: Speci men Type: ARTERIAL BLOOD SPECIMENOrdering Facility: [facility] Address: [address] [place] [address] Performed By: #### A LLMG ####[facility] LABIA [id number] [place] [address] [place] Methemoglobin (Bld) [Mass fraction] 1.0 % Normal 0.0-1.5 [facility] Comment on above: Order Comment: Speci men Type: ARTERIAL BLOOD SPECIMENOrdering Facility: [facility] Address: [address] [place] [address] Performed By: #### A LLMG ####[facility] LABIA [id number] [id number] [address] [place] Oxygen (Bld) [Partial pressure] 150 mm Hg High 85-95 [facility] Comment on above: Order Comment: Speci men Type: ARTERIAL BLOOD SPECIMENOrdering Facility: [facility] Address: [address] [place] [address] Performed By: #### A LLMG ####[facility] LABCLIA [id number] [place] [id number] [place] Oxygen adjusted to patient's actual temperature (Bld) [Partial pressure] 150 mmHg High 85-95 [facility] Comment on above: Order Comment: Speci men Type: ARTERIAL BLOOD SPECIMENOrdering Facility: [facility] Address: [address] [place] [address] Performed By: #### A LLMG ####[facility] LABCLIA [id number] [place] [address] [place] Oxyhemoglobin (BldA) [Mass fraction] 97 % Normal 95-98 [facility] Comment on above: Order Comment: Speci men Type: ARTERIAL BLOOD SPECIMENOrdering Facility: [facility] Address: [address] [place] [address] Performed By: #### A LLMG ####[facility] LABCLIA [id number] [place] [address] [place] pH (Bld) 7.39 [pH] Normal 7.35-7.45 [facility] Comment on above: Order Comment: Speci men Type: ARTERIAL BLOOD SPECIMENOrdering Facility: [facility] Address: [address] [place] [address] Performed By: #### A LLMG ####[facility] LABCLIA [id number] [place] [address] [place] pH adjusted to patient's actual temperature (Bld) 7.39 Normal 7.35-7.45 [facility] Comment on above: Order Comment: Speci men Type: ARTERIAL BLOOD SPECIMENOrdering Facility: [facility] Address: [address] [place], [place] [address] Performed By: #### A LLMG ####[facility] LABCLIA [id number] [place] [address] [place] Potassium [Moles/Vol] 3.9 mmol/L Normal 3.5-5.0 [facility] Comment on above: Order Comment: Speci men Type: ARTERIAL BLOOD SPECIMENOrdering Facility: [facility] Address: [address] [place] [address] Performed By: #### A LLMG ####[facility] LABCLIA [id number] [place] [address] [place] Sodium [Moles/Vol] 134 mmol/L Low 136-144 [facility] Comment on above: Order Comment: Speci men Type: ARTERIAL BLOOD SPECIMENOrdering Facility: [facility] Address: [address] [place] [address] Performed By: #### A LLMG ####[facility] LABCLIA [id number] [place] [address] [place] CBC panel Auto (Bld)on 07-29 Erythrocyte distribution width (RBC) [Ratio] 11.9 % Normal 11.5-15.0 [facility] Comment on above: Order Comment: Speci men Type: BLOOD SPECIMENOrdering Facility: [facility] Address: [address] [place] [address] Performed By: #### 5 8410-2 ####[facility] LABCLIA [id number] [place] [address] [place] Hematocrit (Bld) [Volume fraction] 35.0 % Low 36.0-46.0 [facility] Comment on above: Order Comment: Speci men Type: BLOOD SPECIMENOrdering Facility: [facility] Address: [address] [place] [address] Performed By: #### 5 8410-2 ####[facility] LABCLIA [id number] [place] [address] [place] Hemoglobin (Bld) [Mass/Vol] 11.9 g/dL Normal 11.5-15.5 [facility] Comment on above: Order Comment: Speci men Type: BLOOD SPECIMENOrdering Facility: [facility] Address: [address] [place] [address] Performed By: #### 5 8410-2 ####[facility] LABIA [id number] [place] [address] [place] MCH (RBC) [Entitic mass] 31.3 pg Normal 26.0-34.0 [facility] Comment on above: Order Comment: Speci men Type: BLOOD SPECIMENOrdering Facility: [facility] Address: [address] [place] [address] Performed By: #### 5 8410-2 ####[facility] LABCLIA [id number] [place] [address] [place] MCHC (RBC) [Mass/Vol] 34.0 g/dL Normal 30.5-36.0 [facility] Comment on above: Order Comment: Speci men Type: BLOOD SPECIMENOrdering Facility: [facility] Address: [address] [place] [address] Performed By: #### 5 8410-2 ####[facility] LABIA [id number] [place] [address] [place] MCV (RBC) [Entitic vol] 92.1 fL Normal 80.0-100.0 [facility] Comment on above: Order Comment: Speci men Type: BLOOD SPECIMENOrdering Facility: [facility] Address: [address] [place] [address] Performed By: #### 5 8410-2 ####[facility] LABCLIA [id number] [place] [address] [place] Nucleated RBC (Bld) [#/Vol] 10*3/uL Normal <0.01 [facility] Comment on above: Order Comment: Speci men Type: BLOOD SPECIMENOrdering Facility: [facility] Address: [address] [place] [address] Performed By: #### 5 8410-2 ####[facility] LABCLIA [id number] [place] [address] [place] Platelet mean volume (Bld) [Entitic vol] 9.8 fL Normal 9.0-12.7 [facility] Comment on above: Order Comment: Speci men Type: BLOOD SPECIMENOrdering Facility: [facility] Address: [address] [place] [address] Performed By: #### 5 8410-2 ####[facility] LABIA [id number] [place] [address] [place] Platelets (Bld) [#/Vol] 170 10*3/uL Normal 150-400 [facility] Comment on above: Order Comment: Speci men Type: BLOOD SPECIMENOrdering Facility: [facility] Address: [address] [place] [address] Performed By: #### 5 8410-2 ####[facility] LABIA [id number] [place] [address] [place] RBC (Bld) [#/Vol] 3.80 10*6/uL Low 3.90-5.20 [facility] Comment on above: Order Comment: Speci men Type: BLOOD SPECIMENOrdering Facility: [facility] Address: [address] [place] [address] Performed By: #### 5 8410-2 ####[facility] LABIA [id number] [place] [address] [place] WBC (Bld) [#/Vol] 11.18 10*3/uL High 3.70-11.00 [facility] Comment on above: Order Comment: Speci men Type: BLOOD SPECIMENOrdering Facility: [facility] Address: [address] [place] [address] Performed By: #### 5 8410-2 ####[facility] LABCLIA [id number] [address] [place] Fibrinogen PPP-mCncon 2023 Fibrinogen Coag (PPP) [Mass/Vol] 348 mg/dL Normal 200-400 [facility] Comment on above: Order Comment: Speci men Type: BLOOD SPECIMENOrdering Facility: [facility] Address: [address] [place] [address] Performed By: #### 3 255-7, 85701-9, 37290-3 ####[facility] LABIA [id number] [address] [place] Fibrinogen Coag (PPP) [Mass/Vol] 165 mg/dL Low 200-400 [facility] Comment on above: Order Comment: Speci men Type: BLOOD SPECIMENOrdering Facility: [facility] Address: [address] [place] [address] Performed By: #### 3 255-7 ####[facility] LABIA [id number] [place] [address] [place] Gas + CO Pnl BldVon 07-29-19 24 Lactate [Moles/Vol] 1.4 mmol/L Normal 0.5-2.2 [facility] Comment on above: Order Comment: Speci men Type: VENOUS BLOOD SPECIMENOrdering Facility: [facility] Address: [address] [place] [address] Performed By: #### 2 4344-4 ####[facility] LABIA [id number] [address] [place] Order Comment: Speci men Type: ARTERIAL BLOOD SPECIMENOrdering Facility: [facility] Address: [address] [place] [address] Performed By: #### A LLBG ####[facility] LABCLIA [id number] [address] [id number] [address] [place] Gas and Carbon monoxide pane l (BldV)on 07-29-2023 BASE DEFICIT, VENOUS -3 mmol/L Low -2-0 [facility] Comment on above: Order Comment: Speci men Type: VENOUS BLOOD SPECIMENOrdering Facility: [facility] Address: [address] [place] [address] Performed By: #### 2 4344-4 ####[facility] LABCLIA [id number] [place] [address] [place] Calcium.ionized (Bld) [Mass/Vol] 1.19 mmol/L Normal 1.08-1.30 [facility] Comment on above: Order Comment: Speci men Type: VENOUS BLOOD SPECIMENOrdering Facility: [facility] Address: [address] [place] [address] Performed By: #### 2 4344-4 ####[facility] LABCLIA [id number] [place] [address] [place] Calcium.ionized adjusted to pH 7.4 (BldA) [Moles/Vol] 1.15 mmol/L Normal 1.08-1.30 [facility] Comment on above: Order Comment: Speci men Type: VENOUS BLOOD SPECIMENOrdering Facility: [facility] Address: [address] [place] [address] Performed By: #### 2 4344-4 ####[facility] LABCLIA [id number] [place] [address] [place] Carboxyhemoglobin (BldV) [Mass fraction] 1.7 % Normal 0.0-2.0 [facility] Comment on above: Order Comment: Speci men Type: VENOUS BLOOD SPECIMENOrdering Facility: [facility] Address: [address] [place] [address] Result Comment: Carb oxyhemoglobin Reference Range for Smokers: 2.0-8.0% Performed By: #### 2 4344-4 ####[facility] LABCLIA [id number] [place] [address] [place] CO2 (BldV) [Partial pressure] 45 mm[Hg] Normal 42-55 [facility] Comment on above: Order Comment: Speci men Type: VENOUS BLOOD SPECIMENOrdering Facility: [facility] Address: [address] [place] [address] Performed By: #### 2 4344-4 ####[facility] LABCLIA [id number] [place] [address] [place] CO2 adjusted to patient's actual temperature (BldV) [Partial pressure] 45 mmHg Normal 42-55 [facility] Comment on above: Order Comment: Speci men Type: VENOUS BLOOD SPECIMENOrdering Facility: [facility] Address: [address] [place] [address] Performed By: #### 2 4344-4 ####[facility] LABCLIA [id number] [place] [address] [place] Glucose [Mass/Vol] 241 mg/dL High 60-105 [facility] Comment on above: Order Comment: Speci men Type: VENOUS BLOOD SPECIMENOrdering Facility: [facility] Address: [address] [place] [address] Performed By: #### 2 4344-4 ####[facility] LABCLIA [id number] [place] [address] [place] HCO3 (Bld) [Moles/Vol] 23 mmol/L Low 24-28 [facility] Comment on above: Order Comment: Speci men Type: VENOUS BLOOD SPECIMENOrdering Facility: [facility] Address: [address] [place] [address] Performed By: #### 2 4344-4 ####[facility] LABCLIA [id number] [place] [address] [place] Hematocrit (Bld) [Volume fraction] 33.3 % Low 36.0-46.0 [facility] Comment on above: Order Comment: Speci men Type: VENOUS BLOOD SPECIMENOrdering Facility: [facility] Address: [address] [place] [address] Performed By: #### 2 4344-4 ####[facility] LABCLIA [id number] [place] [id number] [place] Hemoglobin (Bld) [Mass/Vol] 10.8 g/dL Low 11.5-15.5 [facility] Comment on above: Order Comment: Speci men Type: VENOUS BLOOD SPECIMENOrdering Facility: [facility] Address: [address] [place] [address] Performed By: #### 2 4344-4 ####[facility] LABCLIA [id number] [place] [address] [place] Methemoglobin (Bld) [Mass fraction] 1.2 % Normal 0.0-1.5 [facility] Comment on above: Order Comment: Speci men Type: VENOUS BLOOD SPECIMENOrdering Facility: [facility] Address: [address] [place] [address] Performed By: #### 2 4344-4 ####[facility] LABCLIA [id number] [place] [address] [place] Oxygen (BldV) [Partial pressure] 51 mm[Hg] High 35-45 [facility] Comment on above: Order Comment: Speci men Type: VENOUS BLOOD SPECIMENOrdering Facility: [facility] Address: [address] [place], [place] [address] Performed By: #### 2 4344-4 ####[facility] LABCLIA [id number] [place] [id number] [place] Oxygen adjusted to patient's actual temperature (BldV) [Partial pressure] 51 mmHg High 35-45 [facility] Comment on above: Order Comment: Speci men Type: VENOUS BLOOD SPECIMENOrdering Facility: [facility] Address: [address] [place] [address] Performed By: #### 2 4344-4 ####[facility] LABCLIA [id number] [address] [address] [place] Oxygen saturation in Venous blood 83 % Normal 60-85 [facility] Comment on above: Order Comment: Speci men Type: VENOUS BLOOD SPECIMENOrdering Facility: [facility] Address: [address] [place] [address] Performed By: #### 2 4344-4 ####[facility] LABCLIA [id number] [address] [address] [place] Oxyhemoglobin (BldV) [Mass fraction] 80 % Normal 60-85 [facility] Comment on above: Order Comment: Speci men Type: VENOUS BLOOD SPECIMENOrdering Facility: [facility] Address: [address] [place] [address] Performed By: #### 2 4344-4 ####[facility] LABCLIA [id number] [place] [address] [place] pH (BldV) 7.33 [pH] Normal 7.32-7.42 [facility] Comment on above: Order Comment: Speci men Type: VENOUS BLOOD SPECIMENOrdering Facility: [facility] Address: [address] [place] [address] Performed By: #### 2 4344-4 ####[facility] LABCLIA [id number] [place] [address] [place] pH adjusted to patient's actual temperature (BldV) 7.33 Normal 7.32-7.42 [facility] Comment on above: Order Comment: Speci men Type: VENOUS BLOOD SPECIMENOrdering Facility: [facility] Address: [address] [place] [address] Performed By: #### 2 4344-4 ####[facility] LABCLIA [id number] [address] [address] [place] Potassium [Moles/Vol] 5.7 mmol/L High 3.5-5.0 [facility] Comment on above: Order Comment: Speci men Type: VENOUS BLOOD SPECIMENOrdering Facility: [facility] Address: [address] [place] [address] Performed By: #### 2 4344-4 ####[facility] LABCLIA [id number] [place] [address] [place] Sodium [Moles/Vol] 130 mmol/L Low 136-144 [facility] Comment on above: Order Comment: Speci men Type: VENOUS BLOOD SPECIMENOrdering Facility: [facility] Address: [address] [place] [address] Performed By: #### 2 4344-4 ####[facility] LABCLIA [id number] [place] [address] [place] Glucose SerPl-mCncon 024 Glucose [Mass/Vol] 131 mg/dL High 74-99 [facility] Comment on above: Order Comment: Speci men Type: BLOOD SPECIMENOrdering Facility: [facility] Address: [address] [place] [address] Result Comment: The [place] [employer] (ADA) provides guidance for cutoff [...] Standards of Medical Care in Diabetes 2016, [place] [employer]. Diabetes Care. 2016.39(Suppl 1). Performed By: #### K 1, 2345-7 ####[facility] LABCLIA [id number] [place] [address] [place] HCV RNA WALKER+probe Qnon 07-29 HBV surface Ag Ql (S) Negative Normal Negative [facility] Comment on above: Order Comment: Speci men Type: BLOOD SPECIMENOrdering Facility: [facility] Address: [place] [address] Performed By: #### 1 1011-4 ####[facility] LABCLIA [id number] [place] [address] [place] HCV Ab Ql (S) Negative Normal Negative [facility] Comment on above: Order Comment: Speci men Type: BLOOD SPECIMENOrdering Facility: [facility] Address: [place] [address] Result Comment: The result suggests no evidence of active infection with Hepatitis C virus. Should recent infection be suspected, repeat testing may be considered 4-6 weeks after this draw. Performed By: #### 1 1011-4 ####[facility] LABCLIA [id number] [place] [address] [place] HIV 1 and 2 Ab IA.rapid Nom (S/P/Bld) Normal [facility] Comment on above: Order Comment: Speci men Type: BLOOD SPECIMENOrdering Facility: [facility] Address: [place] [address] Result Comment: Test not indicated. Performed By: #### 1 1011-4 ####[facility] LABCLIA [id number] [place] [address] [place] HIV 1+2 Ab+HIV1 p24 Ag IA Ql Non-Reactive Normal Nonreactive [facility] Comment on above: Order Comment: Speci men Type: BLOOD SPECIMENOrdering Facility: [facility] Address: [place] [address] Performed By: #### 1 1011-4 ####[facility] LABCLIA [id number] [place] [address] [place] HIV immunoassay testing algorithm interpretation (S/P/Bld) [Interp] Normal [facility] Comment on above: Order Comment: Speci men Type: BLOOD SPECIMENOrdering Facility: [facility] Address: [place] [address] Result Comment: No e vidence of HIV-1 or HIV-2 infection. Should recent infection be suspected, repeat testing may be considered 2-3 weeks after this draw.[place] Rev. Code 3701.243(E): This information has been [...] or diagnoses. Performed By: #### 1 1011-4 ####[facility] [id number] [address] [place] HISTORY PHYSICALon 4 HISTORY PHYSICAL Normal [facility] HIV1+2 Ab Ser Qlon 4 HIV 1+2 Ab Ql (S) Negative Normal Non-Reacti ve : Negative for both HIV1 and HIV2 antibodies. [facility] Comment on above: Order Comment: Speci men Type: BLOOD SPECIMENOrdering Facility: [facility] Address: [place] [address] Result Comment: A no n-reactive result does not preclude the possibility of exposure to HIV or infection with HIV. An antibody response to recent exposure may take several weeks to reach detectable levels with this assay.Performed by the [employer] Rapid HIV-1/2 Antibody Test.HIV Information: [place] Rev. Code 3701.243(E):This information has been disclosed [...] or diagnoses. Performed By: #### 7 918-6 ####[facility]CL[facility] [id number] [address] [address] [place] INTRAOPERATIVE ECHO PREon INTRAOPERATIVE ECHO PRE Normal [facility] OPERATIVE NOon 07-29-2023 OPERATIVE NO Normal [facility] POTASSIUM BLDon 07-29-2023 Potassium [Moles/Vol] 4.6 mmol/L Normal 3.7-5.1 [facility] Comment on above: Order Comment: Speci men Type: BLOOD SPECIMENOrdering Facility: [facility] Address: [address] [place] [address] Performed By: #### K 1, 2345-7 ####[facility]CL[facility] [id number] [place] [address] [place] PT panel Coag (PPP)on 2023 INR Coag (PPP) [Relative time] 1.1 {INR} Normal 0.9-1.3 [facility] Comment on above: Order Comment: Speci men Type: BLOOD SPECIMENOrdering Facility: [facility] Address: [address] [place] [address] Result Comment: Suzanne min K Antagonist (VKA) Therapeutic Range: INR 2 to 3 (Target INR of 2.5)Note: For patients treated with VKA drugs, such as warfarin, the [place] [employer] 2012 Guideline recommends [...] of 2.5 to 3.5 (target INR of 3).Satnamtt GH, et al. Chest 2012, 141:7S-47SNishimura RA, et al. JACC 2017, 70: 252-289 Performed By: #### 3 255-7, 14020-0, 73457-1 ####[facility]CL[facility] [id number] [place] [address] [place] PT Coag (PPP) [Time] 11.5 s Normal 9.7-13.0 [facility] Comment on above: Order Comment: Speci men Type: BLOOD SPECIMENOrdering Facility: [facility] Address: [address] [place] [address] Performed By: #### 3 255-7, 90361-4, 91989-3 ####[facility] [id number] [place] [address] [place] Platelets Auto (Bld) [#/Vol] on 07-29-2023 Platelets (Bld) [#/Vol] 194 10*3/uL Normal 150-400 [facility] Comment on above: Order Comment: Speci men Type: BLOOD SPECIMENOrdering Facility: [facility] Address: [address] [place] [address] Performed By: #### 7 77-3 ####[facility] [id number] [place] [address] [place] STAPH AUREUS PCRon S. aureus and MRSA panel WALKER+probe (Nose) Normal Negative [facility] Comment on above: Order Comment: Speci men Type: SWAB OF INTERNAL NOSEOrdering Facility: [facility] Address: [address] [place] [address] Result Comment: Nega tive for Staphylococcus aureus by PCR.Negative for MRSA by PCR Performed By: #### S APCR ####[facility] [id number] [place] [address] [place] SURGICAL PATHOLOGYon 024 CASE REPORT Normal [facility] Comment on above: Order Comment: Speci men Type: TISSUE SPECIMENOrdering Facility: [facility] Address: [address] [place] [address] Result Comment: Surg ical Pathology Report Case: [id number] Provider: Willem Suarez MD Collected: 07/29/2023 10:16 AMOrdering Location: Admitting Received: 07/29/2023 02:15 PMPathologist: Sarita Black MDSpecimen: SOFT TISSUE, endarterectomy Performed By: #### S ####[facility] [id number] [place] [address] [place] CLINICAL HISTORY Normal [facility] Comment on above: Order Comment: Speci men Type: TISSUE SPECIMENOrdering Facility: [facility] Address: [address] [place] [address] Result Comment: Pre- op diagnosis: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 There is no evidence of tunica media. Normal [facility] Comment on above: Order Comment: Speci men Type: TISSUE SPECIMENOrdering Facility: [facility] Address: [address] [place] [address] Performed By: #### S ####[facility] [id number] [address] FINAL DIAGNOSIS Normal [facility] Comment on above: Order Comment: Speci men Type: TISSUE SPECIMENOrdering Facility: [facility] Address: [address] [place] [address] Result Comment: A. C oronary artery (site not stated), endarterectomy:-Fibroatheromatous plaque. Performed By: #### S ####[facility] [id number] [address] OF [place] FINAL PERFORMING LAB Normal [facility] Comment on above: Order Comment: Speci men Type: TISSUE SPECIMENOrdering Facility: [facility] Address: [address] [place] [address] Result Comment: Diag nostic interpretation performed at [facility], [address] [place] [address] CLIA# [id number] Director: Jonathan Pavon M.D. Performed By: #### S ####[facility] [id number] [place] [address] [place] GROSS DESCRIPTION A. SOFT TISSUE Normal [facility] Comment on above: Order Comment: Speci men Type: TISSUE SPECIMENOrdering Facility: [facility] Address: [address] [place] [address] Result Comment: Rece ived fresh labeled endarterectomy is a kate-pham, irregular segment of soft probable plaque material. The specimen is entirely submitted intact in one cassette.Gross examination performed at [facility], [address] [place] [address] CLIA# [id number] 07/29/23 Performed By: #### S ####[facility] [id number] [place] [address] [place] THROMBOGRAPH HEPARINASE PANE Cuauhtemoc 07-29-2023 Clot angle after addition of heparinase TEG (Bld) [Angle] 65.5 degrees Normal 47.0-74.0 [facility] Comment on above: Order Comment: Speci men Type: BLOOD SPECIMENOrdering Facility: [facility] Address: [address] [place] [address] Performed By: #### T EGHPP ####[facility] [id number] [place] [address] [place] Clot Lysis 30 Min post maximum clot amplitude TEG (Bld) [Length fraction] 0.0 % Normal 0.0-8.0 [facility] Comment on above: Order Comment: Speci men Type: BLOOD SPECIMENOrdering Facility: [facility] Address: [address] [place] [address] Performed By: #### T EGHPP ####[facility] [id number] [place] [address] [place] Clotting time after addition of heparinase TEG (Bld) 10.8 minutes High 4.0-10.0 [facility] Comment on above: Order Comment: Speci men Type: BLOOD SPECIMENOrdering Facility: [facility] Address: [address] [place] [address] Performed By: #### T EGHPP ####[facility]IA [id number] [place] [address] [place] Coagulation index TEG Qn (Bld) -2.9 Normal -4.6-3.2 [facility] Comment on above: Order Comment: Speci men Type: BLOOD SPECIMENOrdering Facility: [facility] Address: [address] [place] [address] Result Comment: The Coagulation Index, a secondary parameter, is labeled by the reheater as for research use only and is used per the reheater's instructions. Its performance characteristics were determined by [facility]'s [facility] Pathology and Laboratory Medicine [place] in a manner consistent with CLIA requirements. This test has not been cleared by the U.S. Food and Drug Administration. Performed By: #### T EGHPP ####[facility] [id number] [place] [address] [place] Maximum clot firmness after addition of heparinase TEG (Bld) [Length] 61.9 mm Normal 51.0-75.0 [facility] Comment on above: Order Comment: Speci men Type: BLOOD SPECIMENOrdering Facility: [facility] Address: [address] [place], [place] [address] Performed By: #### T EGHPP ####[facility] [id number] [place] [address] [place] Thromboelastography after addtion of heparinase panel (Bld) Normal [facility] Comment on above: Order Comment: Speci men Type: BLOOD SPECIMENOrdering Facility: [facility] Address: [address] [place] [address] Result Comment: A th romboelastograph (TEG) study [...] TEG results. Performed By: #### T EGHPP ####[facility] [id number] [place] [address] [place] THROMBOGRAPH PANELon 024 Clot angle TEG (Bld) [Angle] 61.3 degrees Normal 47.0-74.0 [facility] Comment on above: Order Comment: Speci men Type: BLOOD SPECIMENOrdering Facility: [facility] Address: [address] [place] [address] Performed By: #### T EGPNP ####[facility] [id number] [place] [address] [place] Clot Lysis 30 Min post maximum clot amplitude TEG (Bld) [Length fraction] 0.0 % Normal 0.0-8.0 [facility] Comment on above: Order Comment: Speci men Type: BLOOD SPECIMENOrdering Facility: [facility] Address: [address] [place] [address] Performed By: #### T EGPNP ####[facility] [id number] [place] [address] [place] Clotting time TEG (Bld) 6.8 minutes Normal 4.0-10.0 [facility] Comment on above: Order Comment: Speci men Type: BLOOD SPECIMENOrdering Facility: [facility] Address: [address] [place] [address] Performed By: #### T EGPNP ####[facility]IA [id number] [address] [place] Coagulation index TEG Qn (Bld) -0.8 Normal -4.6-3.2 [facility] Comment on above: Order Comment: Speci men Type: BLOOD SPECIMENOrdering Facility: [facility] Address: [address] [place] [address] Result Comment: The Coagulation Index, a secondary parameter, is labeled by the reheater as for research use only and is used per the reheater's instructions. Its performance characteristics were determined by [facility]'s [facility] Pathology and Laboratory Medicine [place] in a manner consistent with CLIA requirements. This test has not been cleared by the U.S. Food and Drug Administration. Performed By: #### T EGPNP ####[facility]IA [id number] [place] [address] [place] Maximum clot firmness TEG (Bld) [Length] 62.4 mm Normal 51.0-75.0 [facility] Comment on above: Order Comment: Speci men Type: BLOOD SPECIMENOrdering Facility: [facility] Address: [address] [place] [address] Performed By: #### T EGPNP ####[facility] [id number] [address] [place] Thromboelastography after addtion of heparinase panel (Bld) Normal [facility] Comment on above: Order Comment: Sybili sarita Type: BLOOD SPECIMENOrdering Facility: [facility] Address: [address] [place] [address] Result Comment: A th romboelastograph (TEG) study [...] TEG results. Performed By: #### T EGPNP ####[facility] [id number] [place] [address] [place] XR CHEST 1V FRONTAL PORTon 0 07-29-2023 XR CHEST 1V FRONTAL PORT Normal [facility] aPTT PPPon 07-29-2023 aPTT Coag (PPP) [Time] 28.1 s Normal 23.0-32.4 [facility] Comment on above: Order Comment: Speci men Type: BLOOD SPECIMENOrdering Facility: [facility] Address: [address] [place] [address] Performed By: #### 3 255-7, 52243-2, 77429-5 ####[facility]IA [id number] [place] [address] [place] CNPNon 07-24-2023 CNPN Normal [facility] CNPTOUTREACHon 07-24-2023 CNPTOUTREACH Normal [facility] CBC W Auto Differential pane l (Bld)on 07-17-2023 Basophils (Bld) [#/Vol] 0.03 10*3/uL Normal <0.11 [facility] Comment on above: Order Comment: Speci men Type: BLOOD SPECIMENOrdering Facility: [facility] Address: [address] [place] [address] Performed By: #### 5 7021-8 ####[facility] [id number] [place] [address] [place] Basophils/100 WBC (Bld) 0.5 % Normal [facility] Comment on above: Order Comment: Speci men Type: BLOOD SPECIMENOrdering Facility: [facility] Address: [address] [place] [address] Performed By: #### 5 7021-8 ####[facility] [id number] [place] [address] [place] Differential cell count method Nom (Bld) Auto Normal [facility] Comment on above: Order Comment: Speci men Type: BLOOD SPECIMENOrdering Facility: [facility] Address: [address] [place] [address] Performed By: #### 5 7021-8 ####[facility] [id number] [place] [address] [place] Eosinophils (Bld) [#/Vol] 0.15 10*3/uL Normal <0.46 [facility] Comment on above: Order Comment: Speci men Type: BLOOD SPECIMENOrdering Facility: [facility] Address: [address] [place] [address] Performed By: #### 5 7021-8 ####[facility] [id number] [place] [address] [place] Eosinophils/100 WBC (Bld) 2.5 % Normal [facility] Comment on above: Order Comment: Speci men Type: BLOOD SPECIMENOrdering Facility: [facility] Address: [address] [place] [address] Performed By: #### 5 7021-8 ####[facility] [id number] [place] [address] [place] Erythrocyte distribution width (RBC) [Ratio] 12.2 % Normal 11.5-15.0 [facility] Comment on above: Order Comment: Speci men Type: BLOOD SPECIMENOrdering Facility: [facility] Address: [address] [place] [address] Performed By: #### 5 7021-8 ####[facility] [id number] [place] [address] [place] Hematocrit (Bld) [Volume fraction] 46.2 % High 36.0-46.0 [facility] Comment on above: Order Comment: Speci men Type: BLOOD SPECIMENOrdering Facility: [facility] Address: [address] [place] [address] Performed By: #### 5 7021-8 ####[facility] [id number] [place] [address] [place] Hemoglobin (Bld) [Mass/Vol] 14.9 g/dL Normal 11.5-15.5 [facility] Comment on above: Order Comment: Speci men Type: BLOOD SPECIMENOrdering Facility: [facility] Address: [address] [place] [address] Performed By: #### 5 7021-8 ####[facility] [id number] [place] [address] [place] Immature granulocytes (Bld) [#/Vol] 0.05 10*3/uL Normal <0.10 [facility] Comment on above: Order Comment: Speci men Type: BLOOD SPECIMENOrdering Facility: [facility] Address: [address] [place] [address] Performed By: #### 5 7021-8 ####[facility] [id number] [place] [address] [place] Immature granulocytes/100 WBC (Bld) 0.8 % Normal [facility] Comment on above: Order Comment: Speci men Type: BLOOD SPECIMENOrdering Facility: [facility] Address: [address] [place] [address] Performed By: #### 5 7021-8 ####[facility] [id number] [place] [address] [place] Lymphocytes (Bld) [#/Vol] 2.33 10*3/uL Normal 1.00-4.00 [facility] Comment on above: Order Comment: Speci men Type: BLOOD SPECIMENOrdering Facility: [facility] Address: [address] [place] [address] Performed By: #### 5 7021-8 ####[facility] [id number] [place] [address] [place] Lymphocytes/100 WBC (Bld) 39.0 % Normal [facility] Comment on above: Order Comment: Speci men Type: BLOOD SPECIMENOrdering Facility: [facility] Address: [address] [place] [address] Performed By: #### 5 7021-8 ####[facility] [id number] [place] [address] [place] MCH (RBC) [Entitic mass] 31.2 pg Normal 26.0-34.0 [facility] Comment on above: Order Comment: Speci men Type: BLOOD SPECIMENOrdering Facility: [facility] Address: [address] [place] [address] Performed By: #### 5 7021-8 ####[facility] [id number] [place] [address] [place] MCHC (RBC) [Mass/Vol] 32.3 g/dL Normal 30.5-36.0 [facility] Comment on above: Order Comment: Speci men Type: BLOOD SPECIMENOrdering Facility: [facility] Address: [address] [place] [address] Performed By: #### 5 7021-8 ####[facility] [id number] [place] [address] [place] MCV (RBC) [Entitic vol] 96.7 fL Normal 80.0-100.0 [facility] Comment on above: Order Comment: Speci men Type: BLOOD SPECIMENOrdering Facility: [facility] Address: [address] [place] [address] Performed By: #### 5 7021-8 ####[facility] [id number] [place] [address] [place] Monocytes (Bld) [#/Vol] 0.60 10*3/uL Normal <0.87 [facility] Comment on above: Order Comment: Speci men Type: BLOOD SPECIMENOrdering Facility: [facility] Address: [address] [place] [address] Performed By: #### 5 7021-8 ####[facility] [id number] [place] [address] [place] Monocytes/100 WBC (Bld) 10.1 % Normal [facility] Comment on above: Order Comment: Speci men Type: BLOOD SPECIMENOrdering Facility: [facility] Address: [address] [place] [address] Performed By: #### 5 7021-8 ####[facility] [id number] [place] [address] [place] Neutrophils (Bld) [#/Vol] 2.81 10*3/uL Normal 1.45-7.50 [facility] Comment on above: Order Comment: Speci men Type: BLOOD SPECIMENOrdering Facility: [facility] Address: [address] [place] [address] Performed By: #### 5 7021-8 ####[facility]CL[facility] [id number] [place] [address] [place] Neutrophils/100 WBC (Bld) 47.1 % Normal [facility] Comment on above: Order Comment: Speci men Type: BLOOD SPECIMENOrdering Facility: [facility] Address: [address] [place] [address] Performed By: #### 5 7021-8 ####[facility] [id number] [place] [address] [place] Nucleated RBC (Bld) [#/Vol] 10*3/uL Normal <0.01 [facility] Comment on above: Order Comment: Speci men Type: BLOOD SPECIMENOrdering Facility: [facility] Address: [address] [place] [address] Performed By: #### 5 7021-8 ####[facility] LABIA [id number] [place] [address] [place] Nucleated RBC/100 WBC (Bld) [Ratio] 0.0 /100 WBC Normal [facility] Comment on above: Order Comment: Speci men Type: BLOOD SPECIMENOrdering Facility: [facility] Address: [address] [place] [address] Performed By: #### 5 7021-8 ####[facility]IA [id number] [place] [address] [place] Platelet mean volume (Bld) [Entitic vol] 9.6 fL Normal 9.0-12.7 [facility] Comment on above: Order Comment: Speci men Type: BLOOD SPECIMENOrdering Facility: [facility] Address: [address] [place] [address] Performed By: #### 5 7021-8 ####[facility] [id number] [place] [address] [place] Platelets (Bld) [#/Vol] 239 10*3/uL Normal 150-400 [facility] Comment on above: Order Comment: Speci men Type: BLOOD SPECIMENOrdering Facility: [facility] Address: [address] [place] [address] Performed By: #### 5 7021-8 ####[facility] [id number] [place] [address] [place] RBC (Bld) [#/Vol] 4.78 10*6/uL Normal 3.90-5.20 [facility] Comment on above: Order Comment: Speci men Type: BLOOD SPECIMENOrdering Facility: [facility] Address: [address] [place] [address] Performed By: #### 5 7021-8 ####[facility] [id number] [place] [address] [place] WBC (Bld) [#/Vol] 5.97 10*3/uL Normal 3.70-11.00 [facility] Comment on above: Order Comment: Speci men Type: BLOOD SPECIMENOrdering Facility: [facility] Address: [address] [place] [address] Performed By: #### 5 7021-8 ####[facility] [id number] [place] [address] [place] CNCNPATEDon 07-17-2023 CNCNPATED Normal [facility] CNOVon 07-17-2023 CNOV Normal [facility] CONFIRM BLOOD TYPEon 024 ABO B Normal [facility] Comment on above: Order Comment: Speci men Type: BLOOD SPECIMENOrdering Facility: [facility] Address: [address] [place] [address] Performed By: #### C ONABO ####[facility]ANK[facility] [id number] [place] [address] [place] Rh Nom (Bld) Positive Normal [facility] Comment on above: Order Comment: Speci men Type: BLOOD SPECIMENOrdering Facility: [facility] Address: [address] [place] [address] Performed By: #### C ONABO ####[facility] BLO[facility] BANKCLIA [id number] [place] [address] [place] Comprehensive metabolic 2000 panelon 07-17-2023 Albumin [Mass/Vol] 4.1 g/dL Normal 3.9-4.9 [facility] Comment on above: Order Comment: Speci men Type: BLOOD SPECIMENOrdering Facility: [facility] Address: [address] [place] [address] Performed By: #### 2 532-0, 44135-3 ####[facility] [id number] [place] [address] [place] ALP [Catalytic activity/Vol] 86 U/L Normal 34-123 [facility] Comment on above: Order Comment: Speci men Type: BLOOD SPECIMENOrdering Facility: [facility] Address: [address] [place] [address] Performed By: #### 2 532-0, 51148-9 ####[facility] [id number] [place] [address] [place] ALT [Catalytic activity/Vol] 11 U/L Normal 7-38 [facility] Comment on above: Order Comment: Speci men Type: BLOOD SPECIMENOrdering Facility: [facility] Address: [address] [place] [address] Performed By: #### 2 532-0, 78254-0 ####[facility] [id number] [place] [address] [place] Anion gap [Moles/Vol] 14 mmol/L Normal 9-18 [facility] Comment on above: Order Comment: Speci men Type: BLOOD SPECIMENOrdering Facility: [facility] Address: [address] [place] [address] Performed By: #### 2 532-0, 08110-2 ####[facility] [id number] [place] [address] [place] AST [Catalytic activity/Vol] 11 U/L Low 13-35 [facility] Comment on above: Order Comment: Speci men Type: BLOOD SPECIMENOrdering Facility: [facility] Address: [address] [place] [address] Performed By: #### 2 532-0, 06594-1 ####[facility] [id number] [place] [address] [place] Bilirubin [Mass/Vol] 0.2 mg/dL Normal 0.2-1.3 [facility] Comment on above: Order Comment: Speci men Type: BLOOD SPECIMENOrdering Facility: [facility] Address: [address] [place] [address] Performed By: #### 2 532-0, ####[facility] [id number] [address] [address] [place] Calcium [Mass/Vol] 9.9 mg/dL Normal 8.5-10.2 [facility] Comment on above: Order Comment: Speci men Type: BLOOD SPECIMENOrdering Facility: [facility] Address: [address] [place] [address] Performed By: #### 2 532-0, ####[facility] [id number] [place] [address] [place] Chloride [Moles/Vol] 102 mmol/L Normal 97-105 [facility] Comment on above: Order Comment: Speci men Type: BLOOD SPECIMENOrdering Facility: [facility] Address: [address] [place] [address] Performed By: #### 2 532-0, ####[facility] [id number] [place] [address] [place] CO2 [Moles/Vol] 23 mmol/L Normal 22-30 [facility] Comment on above: Order Comment: Speci men Type: BLOOD SPECIMENOrdering Facility: [facility] Address: [address] [place] [address] Performed By: #### 2 532-0, 64819-6 ####[facility] [id number] [place] [address] [place] Creatinine [Mass/Vol] 1.01 mg/dL High 0.58-0.96 [facility] Comment on above: Order Comment: Speci men Type: BLOOD SPECIMENOrdering Facility: [facility] Address: [address] [place] [address] Performed By: #### 2 532-0, 30832-6 ####[facility] [id number] [place] [address] [place] Creatinine and Glomerular filtration rate.predicted panel (S/P/Bld) 62 mL/min/1.73m??? Normal >=60 [facility] Comment on above: Order Comment: Phyllis stein Type: BLOOD SPECIMENOrdering Facility: [facility] Address: [address] [place] [address] Result Comment: Annelise mated Glomerular Filtration Rate [...] actual GFR. Performed By: #### 2 532-0, 56036-7 ####[facility] LABIA [id number] [place] [address] [place] Glucose [Mass/Vol] 140 mg/dL High 74-99 [facility] Comment on above: Order Comment: Phyllis stein Type: BLOOD SPECIMENOrdering Facility: [facility] Address: [address] [place] [address] Result Comment: The [place] [employer] (ADA) provides guidance for cutoff [...] Standards of Medical Care in Diabetes 2016, [place] [employer]. Diabetes Care. 2016.39(Suppl 1). Performed By: #### 2 532-0, 69978-1 ####[facility] [id number] [place] [address] [place] Potassium [Moles/Vol] 4.9 mmol/L Normal 3.7-5.1 [facility] Comment on above: Order Comment: Speci men Type: BLOOD SPECIMENOrdering Facility: [facility] Address: [address] [place] [address] Performed By: #### 2 532-0, 81653-0 ####[facility] [id number] [place] [address] [place] Protein [Mass/Vol] 6.0 g/dL Low 6.3-8.0 [facility] Comment on above: Order Comment: Speci men Type: BLOOD SPECIMENOrdering Facility: [facility] Address: [address] [place] [address] Performed By: #### 2 532-0, 27500-2 ####[facility] [id number] [place] [address] [place] Sodium [Moles/Vol] 139 mmol/L Normal 136-144 [facility] Comment on above: Order Comment: Speci men Type: BLOOD SPECIMENOrdering Facility: [facility] Address: [address] [place] [address] Performed By: #### 2 532-0, 82944-9 ####[facility] [id number] [place] [address] [place] Urea nitrogen [Mass/Vol] 21 mg/dL Normal 7-21 [facility] Comment on above: Order Comment: Speci men Type: BLOOD SPECIMENOrdering Facility: [facility] Address: [address] [place] [address] Performed By: #### 2 532-0, 37250-3 ####[facility] LABCLIA [id number] [place] [address] [place] HbA1c (Bld)on 07-17-2023 Average glucose Estimated from glycated hemoglobin (Bld) [Mass/Vol] 148 mg/dL Normal [facility] Comment on above: Order Comment: Phyllis stein Type: BLOOD SPECIMENOrdering Facility: [facility] Address: [address] [place] [address] Result Comment: eAG: (Estimated average glucose) is a calculated value from HgbA1c and is direct sales representative of the average blood glucose level in the last 2-3 month period. Performed By: #### 5 5454-3 ####[facility] LABCLIA [id number] [place] [address] [place] HbA1c (Bld) [Mass fraction] 6.8 % High 4.3-5.6 [facility] Comment on above: Order Comment: Phyllis stein Type: BLOOD SPECIMENOrdering Facility: [facility] Address: [address] [place] [address] Result Comment: Amer [place] Diabetes Association guidelines indicate that patients with HgbA1c in the range 5.7-6.4% are at increased risk for development of diabetes, and intervention by lifestyle modification may be beneficial. HgbA1c greater or equal to 6.5% is considered diagnostic of diabetes. Performed By: #### 5 5454-3 ####[facility] LABIA [id number] [place] [address] [place] LDH SerPl-cCncon 07-17-2023 LDH [Catalytic activity/Vol] 146 U/L Normal 135-214 [facility] Comment on above: Order Comment: Phyllis stein Type: BLOOD SPECIMENOrdering Facility: [facility] Address: [address] [place] [address] Performed By: #### 2 532-0, 13630-1 ####[facility] LABIA [id number] [place] [address] [place] PT panel Coag (PPP)on 2023 INR Coag (PPP) [Relative time] 1.1 {INR} Normal 0.9-1.3 [facility] Comment on above: Order Comment: Phyllis stein Type: BLOOD SPECIMENOrdering Facility: [facility] Address: [address] [place] [address] Result Comment: Suzanne min K Antagonist (VKA) Therapeutic Range: INR 2 to 3 (Target INR of 2.5)Note: For patients treated with VKA drugs, such as warfarin, the [place] [employer] 2012 Guideline recommends [...] al. Chest 2012, 141:7S-47SNishimjulius RA, et al. [facility] 2017, 70: 252-289 Performed By: #### 3 4528-0, 58696-5 ####[facility] [id number] [place] [address] [place] PT Coag (PPP) [Time] 11.2 s Normal 9.7-13.0 [facility] Comment on above: Order Comment: Speci men Type: BLOOD SPECIMENOrdering Facility: [facility] Address: [address] [place] [address] Performed By: #### 3 4528-0, 23242-6 ####[facility] [id number] [place] [address] [place] STAPH AUREUS PCRon 4 S. aureus and MRSA panel WALKER+probe (Nose) Normal Negative [facility] Comment on above: Order Comment: Speci men Type: SWAB OF INTERNAL NOSEOrdering Facility: [facility] Address: [address] [place] [address] Result Comment: Nega tive for Staphylococcus aureus by PCR.Negative for MRSA by PCR Performed By: #### S APCR ####[facility]CL[facility] [id number] [place] [address] [place] TYPE AND SCREEN,30 DAYon ABO B Normal [facility] Comment on above: Order Comment: Speci men Type: BLOOD SPECIMENOrdering Facility: [facility] Address: [address] [place] [address] Performed By: #### T SCR30 ####[facility] BLOOD BANKCLIA [id number] [place] [address] [place] HISTORICAL AB SCR STATUS Negative Normal [facility] Comment on above: Order Comment: Speci men Type: BLOOD SPECIMENOrdering Facility: [facility] Address: [address] [place] [address] Performed By: #### T SCR30 ####[facility] BLOOD BANKIA [id number] [place] [address] [place] Rh Nom (Bld) Positive Normal [facility] Comment on above: Order Comment: Speci men Type: BLOOD SPECIMENOrdering Facility: [facility] Address: [address] [place] [address] Performed By: #### T SCR30 ####[facility] BLOOD BANKIA [id number] [place] [address] [place] URINALYSIS, DIPSTICK ONLYon 07-17-2023 Bilirubin Ql (U) Negative Normal Negative [facility] Comment on above: Order Comment: Speci men Type: URINE SPECIMENOrdering Facility: [facility] Address: [address] [place] [address] Performed By: #### U A ####[facility] LABCLIA [id number] [place] [address] [place] Clarity (Unsp spec) Clear Normal Clear [facility] Comment on above: Order Comment: Speci men Type: URINE SPECIMENOrdering Facility: [facility] Address: [address] [place], [place] [address] Performed By: #### U A ####[facility] LABCLIA [id number] [place] [address] [place] Color (U) Yellow Normal Yellow [facility] Comment on above: Order Comment: Speci men Type: URINE SPECIMENOrdering Facility: [facility] Address: [address] [place] [address] Performed By: #### U A ####[facility] LABCLIA [id number] [place] [address] [place] Glucose Test strip (U) [Mass/Vol] 3+ Abnormal Negative [facility] Comment on above: Order Comment: Speci men Type: URINE SPECIMENOrdering Facility: [facility] Address: [address] [place] [address] Performed By: #### U A ####[facility] LABCLIA [id number] [place] [address] [place] Hemoglobin Ql (U) Negative Normal Negative [facility] Comment on above: Order Comment: Speci men Type: URINE SPECIMENOrdering Facility: [facility] Address: [address] [place] [address] Performed By: #### U A ####[facility] LABCLIA [id number] [place] [address] [place] Ketones Ql (U) Negative Normal Negative [facility] Comment on above: Order Comment: Speci men Type: URINE SPECIMENOrdering Facility: [facility] Address: [address] [place] [address] Performed By: #### U A ####[facility] LABCLIA [id number] [place] [address] [place] Leukocyte esterase Test strip Ql (U) Negative Normal Negative [facility] Comment on above: Order Comment: Speci men Type: URINE SPECIMENOrdering Facility: [facility] Address: [address] [place] [address] Performed By: #### U A ####[facility] LABCLIA [id number] [place] [address] [place] Nitrite Ql (U) Negative Normal Negative [facility] Comment on above: Order Comment: Speci men Type: URINE SPECIMENOrdering Facility: [facility] Address: [address] [place] [address] Performed By: #### U A ####[facility] LABCLIA [id number] [place] [address] [place] pH (U) 6.0 [pH] Normal <8.5 [facility] Comment on above: Order Comment: Speci men Type: URINE SPECIMENOrdering Facility: [facility] Address: [address] [place] [address] Performed By: #### U A ####[facility] LABIA [id number] [place] [address] [place] Protein (U) [Mass/Vol] Negative Normal Negative [facility] Comment on above: Order Comment: Speci men Type: URINE SPECIMENOrdering Facility: [facility] Address: [address] [place] [address] Performed By: #### U A ####[facility] LABIA [id number] [place] [address] [place] Specific gravity (U) [Rel density] 1.026 Normal 1.005-1.030 [facility] Comment on above: Order Comment: Speci men Type: URINE SPECIMENOrdering Facility: [facility] Address: [address] [place] [address] Performed By: #### U A ####[facility] LABIA [id number] [place] [address] [place] Urobilinogen Ql (U) 1.0 EU/dL Normal 0.2-1.0 EU/dL [facility] Comment on above: Order Comment: Speci men Type: URINE SPECIMENOrdering Facility: [facility] Address: [address] [place] [address] Performed By: #### U A ####[facility] LABCLIA [id number] [place] [id number] [place] aPTT PPPon 07-17-2023 aPTT Coag (PPP) [Time] 31.3 s Normal 23.0-32.4 [facility] Comment on above: Order Comment: Speci men Type: BLOOD SPECIMENOrdering Facility: [facility] Address: [address] [place] [address] Performed By: #### 3 4528-0, 23816-8 ####[facility] LABCLIA [id number] [address] [place] CNPNon 07-11-2023 CNPN Normal [facility] CNOVon 07-02-2023 CNOV Normal [facility] CNOV Normal [facility] CNOV Normal [facility] CTA ABD/PEL/LOWER EXT WO/W I VCONon 07-02-2023 CTA ABD/PEL/LOWER EXT WO/W IVCON Normal [facility] CTA CHEST (NONGATED) W IVCON on 07-02-2023 CTA CHEST (NONGATED) W IVCON Normal [facility] ECG COMPLETEon 07-02-2023 ECG COMPLETE Normal [facility] CNPTOUTREACHon 06-27-2023 CNPTOUTREACH Normal [facility] CNPNon 06-26-2023 CNPN Normal [facility] CNPTOUTREACHon 06-21-2023 CNPTOUTREACH Normal [facility] CNOVon 06-14-2023 CNOV Normal [facility] CT CHEST CARDIAC WO IVCONon 06-14-2023 CT CHEST CARDIAC WO IVCON Invalid Interpretation Code [facility] PVR LEG LOVE VAS LABon 2022 PVR LEG LOVE VAS LAB Normal [facility] US CAROTID ARTERIES LOVE VAS LABon 06-14-2023 US CAROTID ARTERIES LOVE VAS LAB Normal [facility] US LEG VEIN MAP LOVE VAS LABo n 12-22-2023 US LEG VEIN MAP LOVE VAS LAB Normal [facility] US MAMMARY ARTERY LOVE VAS LA Bon 06-14-2023 US MAMMARY ARTERY LOVE VAS LAB Normal [facility] US RADIAL ARTERY MAP LOVE VAS LABon 06-14-2023 US RADIAL ARTERY MAP LOVE VAS LAB Normal [facility] Reminderson 06-10-2023 Reminders - From: Celia Donohue LPN To: GSN - Clinical; Sent: 06/10/2023 15:55:47 EST Show up: 04/10/2025 07:00:00 EDT Subject: colonoscopy recall Due Date/Time: 05/11/2025 07:00:00 EST Reminder/Recall Patient due for surveillance colonoscopy 05/11/2025. Normal [facility] CNPNon 05-30-2023 CNPN Normal [facility] Comprehensive metabolic 2000 panelon 05-29-2023 Albumin [Mass/Vol] 4.2 g/dL 3.9 - 4.9 g/dL [facility] ALP [Catalytic activity/Vol] 78 U/L 34 - 123 U/L [facility] ALT [Catalytic activity/Vol] 17 U/L 7 - 38 U/L [facility] Anion gap [Moles/Vol] 15 mmol/L 9 - 18 mmol/L [facility] AST [Catalytic activity/Vol] 16 U/L 13 - 35 U/L [facility] Bilirubin [Mass/Vol] 0.2 mg/dL 0.2 - 1 .3 mg/dL [facility] Calcium [Mass/Vol] 10.5 mg/dL High 8.5 - 10. 2 mg/dL [facility] Chloride [Moles/Vol] 100 mmol/L 97 - 10 5 mmol/L [facility] CO2 [Moles/Vol] 21 mmol/L Low 22 - 30 mmol/L [facility] Creatinine [Mass/Vol] 0.82 mg/dL 0.58 - 0.96 mg/dL [facility] Estimated Glomerular Filtration Rate 79 mL/min/1.73m >=60 mL/min/1.73m [facility] Glucose [Mass/Vol] 216 mg/dL High 74 - 99 mg/dL [facility] Potassium [Moles/Vol] 4.8 mmol/L 3.7 - 5.1 mmol/L [facility] Protein [Mass/Vol] 6.7 g/dL 6.3 - 8.0 g/dL [facility] Sodium [Moles/Vol] 136 mmol/L 136 - 144 mmol/L [facility] Urea nitrogen [Mass/Vol] 22 mg/dL High 7 - 21 mg/dL [facility] LIPID PANEL, NONFASTINGon Cholesterol [Mass/Vol] 220 mg/dL High <200 mg/dL [facility] HDL Cholesterol, Nonfasting 35 mg/dL Low >39 mg/dL [facility] LDL Cholesterol, Nonfasting [facility] LDL/HDL Ratio, Nonfasting [facility] Non HDL Cholesterol, Nonfasting 185 mg/dL High <130 mg/dL [facility] Total Chol/HDL Ratio, Nonfasting 6.29 mg/dL High <5.10 mg/dL [facility] Triglycerides, Nonfasting 414 mg/dL High <150 mg/dL [facility] VLDL Cholesterol, Nonfasting [facility] CBC panel Auto (Bld)on 05-28 Erythrocyte distribution width (RBC) [Ratio] 13.5 % 11.5 - 15.0 % [facility] Hematocrit (Bld) [Volume fraction] 47.6 % High 36.0 - 46.0 % [facility] Hemoglobin (Bld) [Mass/Vol] 15.6 g/dL High 11.5 - 15.5 g/dL [facility] MCH (RBC) [Entitic mass] 31.1 pg 26.0 - 34.0 pg [facility] MCHC (RBC) [Mass/Vol] 32.8 g/dL 30.5 - 36.0 g/dL [facility] MCV (RBC) [Entitic vol] 94.8 fL 80.0 - 100.0 fL [facility] Nucleated RBC (Bld) [#/Vol] <0.01 k/uL [facility] Platelet mean volume (Bld) [Entitic vol] 9.9 fL 9.0 - 12.7 fL [facility] Platelets (Bld) [#/Vol] 295 10*3/uL 150 - 400 k/uL [facility] RBC (Bld) [#/Vol] 5.02 10*6/uL 3.90 - 5.2 0 m/uL [facility] WBC (Bld) [#/Vol] 8.12 10*3/uL 3.70 - 11. 00 k/uL [facility] Erythrocyte distribution width (RBC) [Ratio] 13.5 % Normal 11.5-15.0 [facility] Comment on above: Order Comment: Speci men Type: BLOOD SPECIMENOrdering Facility: [facility] Address: [address] [place] [address] Performed By: #### 5 8410-2 ####[facility] LABCLIA [id number] [place] [address] [place] Hematocrit (Bld) [Volume fraction] 47.6 % High 36.0-46.0 [facility] Comment on above: Order Comment: Speci men Type: BLOOD SPECIMENOrdering Facility: [facility] Address: [address] [place] [address] Performed By: #### 5 8410-2 ####[facility] LABIA [id number] [place] [address] [place] Hemoglobin (Bld) [Mass/Vol] 15.6 g/dL High 11.5-15.5 [facility] Comment on above: Order Comment: Speci men Type: BLOOD SPECIMENOrdering Facility: [facility] Address: [address] [place] [address] Performed By: #### 5 8410-2 ####[facility] LABIA [id number] [place] [address] [place] MCH (RBC) [Entitic mass] 31.1 pg Normal 26.0-34.0 [facility] Comment on above: Order Comment: Speci men Type: BLOOD SPECIMENOrdering Facility: [facility] Address: [address] [place] [address] Performed By: #### 5 8410-2 ####[facility] LABCLIA [id number] [place] [address] [place] MCHC (RBC) [Mass/Vol] 32.8 g/dL Normal 30.5-36.0 [facility] Comment on above: Order Comment: Speci men Type: BLOOD SPECIMENOrdering Facility: [facility] Address: [address] [place] [address] Performed By: #### 5 8410-2 ####[facility] LABIA [id number] [address] [address] [place] MCV (RBC) [Entitic vol] 94.8 fL Normal 80.0-100.0 [facility] Comment on above: Order Comment: Speci men Type: BLOOD SPECIMENOrdering Facility: [facility] Address: [address] [place] [address] Performed By: #### 5 8410-2 ####[facility] LABIA [id number] [place] [address] [place] Nucleated RBC (Bld) [#/Vol] 10*3/uL Normal <0.01 [facility] Comment on above: Order Comment: Speci men Type: BLOOD SPECIMENOrdering Facility: [facility] Address: [address] [place] [address] Performed By: #### 5 8410-2 ####[facility] LABIA [id number] [place] [address] [place] Platelet mean volume (Bld) [Entitic vol] 9.9 fL Normal 9.0-12.7 [facility] Comment on above: Order Comment: Speci men Type: BLOOD SPECIMENOrdering Facility: [facility] Address: [address] [place] [address] Performed By: #### 5 8410-2 ####[facility] LABIA [id number] [place] [address] [place] Platelets (Bld) [#/Vol] 295 10*3/uL Normal 150-400 [facility] Comment on above: Order Comment: Speci men Type: BLOOD SPECIMENOrdering Facility: [facility] Address: [address] [place] [address] Performed By: #### 5 8410-2 ####[facility] LABCLIA [id number] [address] [address] [place] RBC (Bld) [#/Vol] 5.02 10*6/uL Normal 3.90-5.20 [facility] Comment on above: Order Comment: Speci men Type: BLOOD SPECIMENOrdering Facility: [facility] Address: [address] [place] [address] Performed By: #### 5 8410-2 ####[facility] LABIA [id number] [place] [address] [place] WBC (Bld) [#/Vol] 8.12 10*3/uL Normal 3.70-11.00 [facility] Comment on above: Order Comment: Speci men Type: BLOOD SPECIMENOrdering Facility: [facility] Address: [address] [place] [address] Performed By: #### 5 8410-2 ####[facility] LABIA [id number] [place] [address] [place] CNOVon 05-28-2023 CNOV Normal [facility] Comprehensive metabolic 2000 panelon 05-28-2023 Albumin [Mass/Vol] 4.2 g/dL Normal 3.9-4.9 [facility] Comment on above: Order Comment: Speci men Type: BLOOD SPECIMENOrdering Facility: [facility] Address: [address] [place] [address] Performed By: #### 3 3762-6, 63620-1, LIPNF ####[facility] [id number] [place] [address] [place] ALP [Catalytic activity/Vol] 78 U/L Normal 34-123 [facility] Comment on above: Order Comment: Speci men Type: BLOOD SPECIMENOrdering Facility: [facility] Address: [address] [place] [address] Performed By: #### 3 3762-6, , LIPNF ####[facility] LABCLIA [id number] [place] [address] [place] ALT [Catalytic activity/Vol] 17 U/L Normal 7-38 [facility] Comment on above: Order Comment: Speci men Type: BLOOD SPECIMENOrdering Facility: [facility] Address: [address] [place] [address] Performed By: #### 3 376-6, , LIPNF ####[facility] LABCLIA [id number] [place] [address] [place] Anion gap [Moles/Vol] 15 mmol/L Normal 9-18 [facility] Comment on above: Order Comment: Speci men Type: BLOOD SPECIMENOrdering Facility: [facility] Address: [address] [place] [address] Performed By: #### 3 3766, , LIPNF ####[facility] LABCLIA [id number] [place] [address] [place] AST [Catalytic activity/Vol] 16 U/L Normal 13-35 [facility] Comment on above: Order Comment: Speci men Type: BLOOD SPECIMENOrdering Facility: [facility] Address: [address] [place] [address] Performed By: #### 3 3762-6, , LIPNF ####[facility] LABCLIA [id number] [place] [address] [place] Bilirubin [Mass/Vol] 0.2 mg/dL Normal 0.2-1.3 [facility] Comment on above: Order Comment: Speci men Type: BLOOD SPECIMENOrdering Facility: [facility] Address: [address] [place] [address] Performed By: #### 3 3762-6, , LIPNF ####[facility] LABCLIA [id number] [id number] [address] [place] Calcium [Mass/Vol] 10.5 mg/dL High 8.5-10.2 [facility] Comment on above: Order Comment: Speci men Type: BLOOD SPECIMENOrdering Facility: [facility] Address: [address] [place] [address] Performed By: #### 3 3762-6, 13079-2, LIPNF ####[facility] LABCLIA [id number] [place] [address] [place] Chloride [Moles/Vol] 100 mmol/L Normal 97-105 [facility] Comment on above: Order Comment: Speci men Type: BLOOD SPECIMENOrdering Facility: [facility] Address: [address] [place] [address] Performed By: #### 3 3762-6, , LIPNF ####[facility] LABCLIA [id number] [place] [address] [place] CO2 [Moles/Vol] 21 mmol/L Low 22-30 [facility] Comment on above: Order Comment: Speci men Type: BLOOD SPECIMENOrdering Facility: [facility] Address: [address] [place] [address] Performed By: #### 3 3762-6, , LIPNF ####[facility] LABCLIA [id number] [place] [address] [place] Creatinine [Mass/Vol] 0.82 mg/dL Normal 0.58-0.96 [facility] Comment on above: Order Comment: Speci men Type: BLOOD SPECIMENOrdering Facility: [facility] Address: [address] [place] [address] Performed By: #### 3 3762-6, 02987-0, LIPNF ####[facility] LABCLIA [id number] [place] [address] [place] Creatinine and Glomerular filtration rate.predicted panel (S/P/Bld) 79 mL/min/1.73m??? Normal >=60 [facility] Comment on above: Order Comment: Phyllis stein Type: BLOOD SPECIMENOrdering Facility: [facility] Address: [address] [place] [address] Result Comment: Annelise mated Glomerular Filtration Rate [...] actual GFR. Performed By: #### 3 3762-6, 72367-1, LIPUGO ####[facility] LABIA [id number] [place] [address] [place] Glucose [Mass/Vol] 216 mg/dL High 74-99 [facility] Comment on above: Order Comment: Phyllis stein Type: BLOOD SPECIMENOrdering Facility: [facility] Address: [address] [place] [address] Result Comment: The [place] [employer] (ADA) provides guidance for cutoff [...] Standards of Medical Care in Diabetes 2016, [place] [employer]. Diabetes Care. 2016.39(Suppl 1). Performed By: #### 3 3762-6, 89011-4, LIPNF ####[facility]IA [id number] [place] [address] [place] Potassium [Moles/Vol] 4.8 mmol/L Normal 3.7-5.1 [facility] Comment on above: Order Comment: Speci men Type: BLOOD SPECIMENOrdering Facility: [facility] Address: [address] [place] [address] Performed By: #### 3 3762-6, 82957-1, LIPNF ####[facility] [id number] [address] [address] [place] Protein [Mass/Vol] 6.7 g/dL Normal 6.3-8.0 [facility] Comment on above: Order Comment: Speci men Type: BLOOD SPECIMENOrdering Facility: [facility] Address: [address] [place] [address] Performed By: #### 3 3762-6, 25432-7, LIPNF ####[facility] [id number] [place] [address] [place] Sodium [Moles/Vol] 136 mmol/L Normal 136-144 [facility] Comment on above: Order Comment: Speci men Type: BLOOD SPECIMENOrdering Facility: [facility] Address: [address] [place] [address] Performed By: #### 3 3762-6, 08417-9, LIPNF ####[facility]CL[facility] [id number] [place] [address] [place] Urea nitrogen [Mass/Vol] 22 mg/dL High 7-21 [facility] Comment on above: Order Comment: Speci men Type: BLOOD SPECIMENOrdering Facility: [facility] Address: [address] [place] [address] Performed By: #### 3 3762-6, 99752-4, LIPNF ####[facility] [id number] [place] [address] [place] LIPID PANEL, NONFASTINGon Cholesterol [Mass/Vol] 220 mg/dL High <200 [facility] Comment on above: Order Comment: Speci men Type: BLOOD SPECIMENOrdering Facility: [facility] Address: [address] [place] [address] Result Comment: <200 mg/dL, Desirable 200-239 mg/dL, Borderline high>239 mg/dL, High Performed By: #### 3 3762-6, 42717-0, LIPNF ####[facility] [id number] [address] [place] HDL CHOLESTEROL, NF 35 mg/dL Low >39 [facility] Comment on above: Order Comment: Speci men Type: BLOOD SPECIMENOrdering Facility: [facility] Address: [address] [place] [address] Result Comment: 40-5 9 mg/dL, Acceptable>59 mg/dL, High: Negative risk factor for coronary heart disease<40 mg/dL, Low: Positive risk factor for coronary heart disease Performed By: #### 3 3762-6, 19131-3, LIPNF ####[facility] LABCLIA [id number] [place] [address] [place] LDL CHOLESTEROL, NF Normal [facility] Comment on above: Order Comment: Speci men Type: BLOOD SPECIMENOrdering Facility: [facility] Address: [address] [place] [address] Result Comment: Unab le to calculate due to increased Triglycerides. A Direct LDL Cholesterol measurement will not be performed. If clinically indicated, a fasting Basic Lipid Panel (LIPB) may be ordered. Performed By: #### 3 3762-6, 87264-3, LIPNF ####[facility] LABCLIA [id number] [place] [address] [place] LDL/HDL RATIO, NF Normal [facility] Comment on above: Order Comment: Speci [facility] Type: BLOOD SPECIMENOrdering Facility: [facility] Address: [address] [place] [address] Result Comment: Unab le to calculate due to elevated Triglycerides.Reference:1. National Cholesterol Education Program ATP III Guideline At-A-Glance Quick Desk Reference: National Heart, Lung, and Blood [place]. National Institutes of Health. 2001: NIH Publication No. 01-3305.2. An International Atherosclerosis Society position paper: global recommendations for the management of dyslipidemia: executive summary, Atherosclerosis. 2014: 232(2):410-413. Performed By: #### 3 3762-6, 29902-0, LIPNF ####[facility] LABCLIA [id number] [place] [address] [place] NON HDL CHOL, NF 185 mg/dL High <130 [facility] Comment on above: Order Comment: Speci men Type: BLOOD SPECIMENOrdering Facility: [facility] Address: [address] [place] [address] Result Comment: <130 mg/dL, Optimal 130-159 mg/dL, Near optimal/above optimal 160-189 mg/dL, Borderline high 190-219 mg/dL, High>219 mg/dL, Very highSecondary prevention optimal non HDL Cholesterol levels are recommended to be <100 mg/dL Performed By: #### 3 3762-6, 53051-7, LIPNF ####[facility] LABCLIA [id number] [place] [address] [place] T CHOL/HDL RATIO NF 6.29 mg/dL High <5.10 [facility] Comment on above: Order Comment: Speci men Type: BLOOD SPECIMENOrdering Facility: [facility] Address: [address] [place] [address] Performed By: #### 3 3762-6, 64904-9, LIPNF ####[facility] LABCLIA [id number] [place] [address] [place] TRIGLYCERIDES, NF 414 mg/dL High <150 [facility] Comment on above: Order Comment: Speci men Type: BLOOD SPECIMENOrdering Facility: [facility] Address: [address] [place] [address] Result Comment: <150 mg/dL, Normal 150-199 mg/dL, Borderline high 200-499 mg/dL, High>499 mg/dL, Very high Performed By: #### 3 3762-6, 46226-2, LIPNF ####[facility]CLIA [id number] [place] [address] [place] VLDL CHOLESTEROL, NF Normal [facility] Comment on above: Order Comment: Speci men Type: BLOOD SPECIMENOrdering Facility: [facility] Address: [address] [place] [address] Result Comment: Unab le to calculate due to elevated Triglycerides. Performed By: #### 3 3762-6, 26822-7, LIPNF ####[facility] LABIA [id number] [place] [address] [place] NT PRO BNPon 05-28-2023 Natriuretic peptide.B prohormone N-Terminal [Mass/Vol] 200 pg/mL High <125 pg/mL [facility] NT-proBNP SerPl-mCncon 05-28 Natriuretic peptide.B prohormone N-Terminal [Mass/Vol] 200 pg/mL High <125 [facility] Comment on above: Order Comment: Speci men Type: BLOOD SPECIMENOrdering Facility: [facility] Address: [address] [place] [address] Performed By: #### 3 3762-6, 96120-3, LIPNF ####[facility] LABCLIA [id number] [place] [address] [place] CNPNon 05-08-2023 CNPN Normal [facility] CNPNon 05-02-2023 CNPN Normal [facility] CNPNon 04-10-2023 CNPN Normal [facility] CBC panel Auto (Bld)on 04-03 Erythrocyte distribution width (RBC) [Ratio] 13.0 % 11.5 - 15.0 % [facility] Hematocrit (Bld) [Volume fraction] 53.9 % High 36.0 - 46.0 % [facility] Hemoglobin (Bld) [Mass/Vol] 18.6 g/dL High 11.5 - 15.5 g/dL [facility] MCH (RBC) [Entitic mass] 29.8 pg 26.0 - 34.0 pg [facility] MCHC (RBC) [Mass/Vol] 34.5 g/dL 30.5 - 36.0 g/dL [facility] MCV (RBC) [Entitic vol] 86.2 fL 80.0 - 100.0 fL [facility] Nucleated RBC (Bld) [#/Vol] <0.01 k/uL [facility] Platelet mean volume (Bld) [Entitic vol] 9.6 fL 9.0 - 12.7 fL [facility] Platelets (Bld) [#/Vol] 269 10*3/uL 150 - 400 k/uL [facility] RBC (Bld) [#/Vol] 6.25 10*6/uL High 3.90 - 5.2 0 m/uL [facility] WBC (Bld) [#/Vol] 10.50 10*3/uL 3.70 - 11 .00 k/uL [facility] Comprehensive metabolic 2000 panelon 04-03-2023 Albumin [Mass/Vol] 4.6 g/dL 3.9 - 4.9 g/dL [facility] ALP [Catalytic activity/Vol] 82 U/L 34 - 123 U/L [facility] ALT [Catalytic activity/Vol] 15 U/L 7 - 38 U/L [facility] Anion gap [Moles/Vol] 19 mmol/L High 9 - 18 mmol/L [facility] AST [Catalytic activity/Vol] 14 U/L 13 - 35 U/L [facility] Bilirubin [Mass/Vol] 0.9 mg/dL 0.2 - 1 .3 mg/dL [facility] Calcium [Mass/Vol] 10.5 mg/dL High 8.5 - 10. 2 mg/dL [facility] Chloride [Moles/Vol] 94 mmol/L Low 97 - 10 5 mmol/L [facility] CO2 [Moles/Vol] 18 mmol/L Low 22 - 30 mmol/L [facility] Creatinine [Mass/Vol] 0.81 mg/dL 0.58 - 0.96 mg/dL [facility] Estimated Glomerular Filtration Rate 81 mL/min/1.73m >=60 mL/min/1.73m [facility] Glucose [Mass/Vol] 241 mg/dL High 74 - 99 mg/dL [facility] Potassium [Moles/Vol] 4.2 mmol/L 3.7 - 5.1 mmol/L [facility] Protein [Mass/Vol] 7.5 g/dL 6.3 - 8.0 g/dL [facility] Sodium [Moles/Vol] 131 mmol/L Low 136 - 144 mmol/L [facility] Urea nitrogen [Mass/Vol] 20 mg/dL 7 - 21 mg/dL [facility] HbA1c (Bld)on 04-03-2023 Average glucose Estimated from glycated hemoglobin (Bld) [Mass/Vol] 163 mg/dL [facility] HbA1c (Bld) [Mass fraction] 7.3 % High 4.3 - 5.6 % [facility] PT panel Coag (PPP)on 2022 INR Coag (PPP) [Relative time] 1.1 {INR} 0.9 - 1.3 [facility] PT Coag (PPP) [Time] 11.4 s 9.7 - 1 3.0 sec [facility] Activated partial thrombopla stin time (aPTT) in platelet poor plasma by coagulation aOrdered By: Patrizia Melendrez on 03-20-2023 aPTT Coag (PPP) [Time] 28.8 s 25.1-36.5 [facility] Comment on above: A hematocrit value g reater than 55% may lead to inaccurate results in coagulation testing. Patients having hematocrit values >55% require a special collection tube for coagulation studies. Please contact the laboratory at [phone] for redraw instructions. Basophils Auto (Bld) [#/Vol] Ordered By: Patrizia Melendrez on 03-20-2023 Basophils (Bld) [#/Vol] 0.0 10*3/uL 0.0-0.2 [facility] Basophils/100 WBC Auto (Bld) Ordered By: Patrizia Melendrez on 03-20-2023 Basophils/100 WBC (Bld) 0.4 % . [facility] Blood Urea Nitrogenon 2022 Urea nitrogen [Mass/Vol] 21 mg/dL Normal - [facility] Comment on above: Performed By: #### B UN, CBC, CREAT, PP, LYTES, LIPID #### [address] Carbon dioxide, total [Moles /volume] in Serum or PlasmaOrdered By: Patrizia Melendrez on 03-20-2023 CO2 [Moles/Vol] 28.8 mmol/L 21.0-31.0 [facility] Chloride [Moles/volume] in S radha or PlasmaOrdered By: Patrizia Melendrez on 03-20-2023 Chloride [Moles/Vol] 105 mmol/L 98-107 [facility] Cholesterol [Mass/volume] in Serum or PlasmaOrdered By: Patrizia Melendrez on 03-20-2023 Cholesterol [Mass/Vol] 270 mg/dL 140-200 [facility] Comment on above: Chol less than 200 m g/dl low riskChol 201-239 mg/dl borderline riskChol 240 mg/dl and greater high risk Cholesterol in LDL Calc [Mas s/Vol]Ordered By: Patrizia Melendrez on 03-20-2023 Cholesterol in LDL [Mass/Vol] 170 mg/dL 0-100 [facility] Comment on above: LDL ATP III CLASSIFI CATIONLDL less than 100 mg/dL OptimalLDL 100-129 mg/dL Near or above optimalLDL 130-159 mg/dL Borderline highLDL 160-189 mg/dL HighLDL greater than 189 mg/dL Very high Cholesterol in VLDL Calc [Ma ss/Vol]Ordered By: Patrizia Melendrez on 03-20-2023 Cholesterol in VLDL [Mass/Vol] 55 mg/dL [facility] Coagulation Profileon 2022 aPTT Coag (Bld) [Time] 28.8 s Normal 25.1-36.5 [facility] Comment on above: Result Comment: A he matocrit value greater than 55% may lead to inaccurate results in coagulation testing. Patients having hematocrit values >55% require a special collection tube for coagulation studies. Please contact the laboratory at [phone] for redraw instructions. PERFORMED BY: [address] [address] PATHOLOGIST [employer] OBSERVER KEVYN DAVIDSON M.D. Performed By: #### B UN, CBC, CREAT, PP, LYTES, LIPID #### [facility] [address] [id number] [place] INR Coag (PPP) [Relative time] 0.9 {INR} Normal [facility] Comment on above: Result Comment: INR [...] UN, CBC, CREAT, PP, LYTES, LIPID #### [address] PT Coag (PPP) [Time] 11.2 s Normal 9.0-12.9 [facility] Comment on above: Result Comment: A he matocrit value greater than 55% may lead to inaccurate results in coagulation testing. Patients having hematocrit values >55% require a special collection tube for coagulation studies. Please contact the laboratory at [phone] for redraw instructions. Performed By: #### B UN, CBC, CREAT, PP, LYTES, LIPID #### [address] Complete Blood Count Auto Di ffon 03-20-2023 Basophils (Bld) [#/Vol] 0.0 10*3/uL Normal 0.0-0.2 [facility] Comment on above: Result Comment: PERF ORMED BY: [place] [address] PATHOLOGIST [employer] OBSERVER KEVYN DAVIDSON M.D. Performed By: #### B UN, CBC, CREAT, PP, LYTES, LIPID #### [address] Basophils/100 WBC (Bld) 0.4 % Normal . [facility] Comment on above: Performed By: #### B UN, CBC, CREAT, PP, LYTES, LIPID #### [address] Eosinophils (Bld) [#/Vol] 0.3 10*3/uL Normal 0.0-0.45 [facility] Comment on above: Performed By: #### B UN, CBC, CREAT, PP, LYTES, LIPID #### [address] Eosinophils/100 WBC (Bld) 4.1 % Normal . [facility] Comment on above: Performed By: #### B UN, CBC, CREAT, PP, LYTES, LIPID #### [address] Erythrocyte distribution width (RBC) [Ratio] 14.4 % Normal 11.9-15.3 [facility] Comment on above: Performed By: #### B UN, CBC, CREAT, PP, LYTES, LIPID #### [address] Hematocrit (Bld) [Volume fraction] 47.2 % High 34.0-46.4 [facility] Comment on above: Performed By: #### B UN, CBC, CREAT, PP, LYTES, LIPID #### [address] Hemoglobin (Bld) [Mass/Vol] 16.0 g/dL High 11.8-15.4 [facility] Comment on above: Performed By: #### B UN, CBC, CREAT, PP, LYTES, LIPID #### [address] Lymphocytes (Bld) [#/Vol] 2.5 10*3/uL Normal 1.00-4.8 [facility] Comment on above: Performed By: #### B UN, CBC, CREAT, PP, LYTES, LIPID #### [address] Lymphocytes/100 WBC (Bld) 34.2 % Normal . [facility] Comment on above: Performed By: #### B UN, CBC, CREAT, PP, LYTES, LIPID #### [address] MCH (RBC) [Entitic mass] 30.5 pg Normal 24.7-34.3 [facility] Comment on above: Performed By: #### B UN, CBC, CREAT, PP, LYTES, LIPID #### [address] MCV (RBC) [Entitic vol] 89.9 fL Normal 80-100 [facility] Comment on above: Performed By: #### B UN, CBC, CREAT, PP, LYTES, LIPID #### [address] Mean Corpuscular HGB Conc 33.9 g/dL Normal 32.0-35.0 [facility] Comment on above: Performed By: #### B UN, CBC, CREAT, PP, LYTES, LIPID #### [address] Monocytes (Bld) [#/Vol] 0.6 10*3/uL Normal 0.0-0.8 [facility] Comment on above: Performed By: #### B UN, CBC, CREAT, PP, LYTES, LIPID #### [address] Monocytes/100 WBC (Bld) 8.4 % Normal . [facility] Comment on above: Performed By: #### B UN, CBC, CREAT, PP, LYTES, LIPID #### [address] Neutrophils (Bld) [#/Vol] 3.8 10*3/uL Normal 1.8-7.7 [facility] Comment on above: Performed By: #### B UN, CBC, CREAT, PP, LYTES, LIPID #### [address] Neutrophils/100 WBC (Bld) 52.9 % Normal . [facility] Comment on above: Performed By: #### B UN, CBC, CREAT, PP, LYTES, LIPID #### [address] NRBC% 0.1 /100{WBC} Normal 0-0.5 [facility] Comment on above: Performed By: #### B UN, CBC, CREAT, PP, LYTES, LIPID #### [facility] [address] Platelet mean volume (Bld) [Entitic vol] 8.0 fL Normal 6.3-10.7 [facility] Comment on above: Performed By: #### B UN, CBC, CREAT, PP, LYTES, LIPID #### [address] Platelets (Bld) [#/Vol] 232 10*3/uL Normal 150-450 [facility] Comment on above: Performed By: #### B UN, CBC, CREAT, PP, LYTES, LIPID #### [address] RBC (Bld) [#/Vol] 5.25 10*6/uL High 3.60-5.00 [facility] Comment on above: Performed By: #### B UN, CBC, CREAT, PP, LYTES, LIPID #### [address] WBC (Bld) [#/Vol] 7.3 10*3/uL Normal 3.8-11.6 [facility] Comment on above: Performed By: #### B UN, CBC, CREAT, PP, LYTES, LIPID #### [address] Creatinineon 03-20-2023 Creatinine [Mass/Vol] 0.83 mg/dL Normal 0.60-1.20 [facility] Comment on above: Performed By: #### B UN, CBC, CREAT, PP, LYTES, LIPID #### [address] GFR/1.73 sq M.predicted MDRD (S/P/Bld) [Vol rate/Area] mL/min/{1.73_m2} [facility] Comment on above: Performed By: #### B UN, CBC, CREAT, PP, LYTES, LIPID #### [address] Creatinine [Mass/volume] in Serum or PlasmaOrdered By: Patrizia Melendrez on 03-20-2023 Creatinine [Mass/Vol] 0.83 mg/dL 0.60-1.20 [facility] Electrolyteson 03-20-2023 Anion gap [Moles/Vol] 8.5 mmol/L Normal 6.0-15.0 [facility] Comment on above: Performed By: #### B UN, CBC, CREAT, PP, LYTES, LIPID #### [facility] [address] Chloride [Moles/Vol] 105 mmol/L Normal 98-107 [facility] Comment on above: Performed By: #### B UN, CBC, CREAT, PP, LYTES, LIPID #### [address] CO2 [Moles/Vol] 28.8 mmol/L Normal 21.0-31.0 [facility] Comment on above: Performed By: #### B UN, CBC, CREAT, PP, LYTES, LIPID #### [facility] [address] Potassium [Moles/Vol] 4.3 mmol/L Normal 3.5-5.1 [facility] Comment on above: Performed By: #### B UN, CBC, CREAT, PP, LYTES, LIPID #### [facility] [address] [place] [address] Sodium [Moles/Vol] 138 mmol/L Normal 136-145 [facility] Comment on above: Performed By: #### B UN, CBC, CREAT, PP, LYTES, LIPID #### [facility] [address] [place] [address] [place] Eosinophils Auto (Bld) [#/Vo l]Ordered By: Patrizia Melendrez on 03-20-2023 Eosinophils (Bld) [#/Vol] 0.3 10*3/uL 0.0-0.45 [facility] Eosinophils/100 WBC Auto (Bl d)Ordered By: Patrizia Melendrez on 03-20-2023 Eosinophils/100 WBC (Bld) 4.1 % . [facility] Erythrocyte distribution wid th Auto (RBC) [Ratio]Ordered By: Patrizia Melendrez on 03-20-2023 Erythrocyte distribution width (RBC) [Ratio] 14.4 % 11.9-15.3 [facility] Hematocrit Auto (Bld) [Volum e fraction]Ordered By: Patrizia Melendrez on 03-20-2023 Hematocrit (Bld) [Volume fraction] 47.2 % 34.0-46.4 [facility] Hemoglobin [Mass/volume] in BloodOrdered By: Patrizia Melendrez on 03-20-2023 Hemoglobin (Bld) [Mass/Vol] 16.0 g/dL 11.8-15.4 [facility] INR in Platelet poor plasma by Coagulation assayOrdered By: Patrizia Melendrez on 03-20-2023 INR Coag (PPP) [Relative time] 0.9 {INR} [facility] Comment on above: INR Therapeutic Rang [...] RBC Auto (Bld) [#/Vol] 7.3 10*3/uL 3.8-11.6 [facility] Lipid Panelon 03-20-2023 Cholesterol [Mass/Vol] 270 mg/dL High 140-200 [facility] Comment on above: Result Comment: Chol less than 200 mg/dl low risk Chol 201-239 mg/dl borderline risk Chol 240 mg/dl and greater high risk Performed By: #### B UN, CBC, CREAT, PP, LYTES, LIPID #### [address] Cholesterol in HDL [Mass/Vol] 45 mg/dL Normal 23-92 [facility] Comment on above: Result Comment: HDL CHOL ATP-III CLASSIFICATION Cardiovascular Risk HDL > or equal to 60 mg/dL LOW HDL < 40 mg/dL HIGH Performed By: #### B UN, CBC, CREAT, PP, LYTES, LIPID #### [facility] [address] Cholesterol.total/Chol esterol in HDL [Mass ratio] 6.0 {ratio} Normal <5.0 [facility] Comment on above: Result Comment: PERF ORMED BY: [place] [address] PATHOLOGIST [employer] OBSERVER KEVYN DAVIDSON M.D. Performed By: #### B UN, CBC, CREAT, PP, LYTES, LIPID #### [address] LDL Cholesterol,Calculated 170 mg/dL High 0-100 [facility] Comment on above: Result Comment: LDL ATP III CLASSIFICATION LDL less than 100 mg/dL Optimal LDL 100-129 mg/dL Near or above optimal LDL 130-159 mg/dL Borderline high LDL 160-189 mg/dL High LDL greater than 189 mg/dL Very high Performed By: #### B UN, CBC, CREAT, PP, LYTES, LIPID #### [facility] [address] Triglyceride w/Reflex 277 mg/dL High 0-149 [facility] Comment on above: Result Comment: TRIG ATP III CLASSIFICATION TRIG less than 150 mg/dL Normal TRIG 150-199 mg/dL Borderline high TRIG 200-500 mg/dL High TRIG greater than 500 mg/dL Very high Standard traceable to the Center for Disease Conrtrol and Prevention (CDC) test method. Performed By: #### B UN, CBC, CREAT, PP, LYTES, LIPID #### [facility] [address] VLDL CHOLESTEROL 55 mg/dL Normal [facility] Comment on above: Performed By: #### B UN, CBC, CREAT, PP, LYTES, LIPID #### [facility] [address] Lymphocytes Auto (Bld) [#/Vo l]Ordered By: Patrizia Melendrez on 03-20-2023 Lymphocytes (Bld) [#/Vol] 2.5 10*3/uL 1.00-4.8 [facility] Lymphocytes/100 WBC Auto (Bl d)Ordered By: Patrizia Melendrez on 03-20-2023 Lymphocytes/100 WBC (Bld) 34.2 % . [facility] MCH Auto (RBC) [Entitic mass ]Ordered By: Patrizia Melendrez on 03-20-2023 MCH (RBC) [Entitic mass] 30.5 pg 24.7-34.3 [facility] MCHC Auto (RBC) [Mass/Vol]Or dered By: Patrizia eMlendrez on 03-20-2023 MCHC (RBC) [Mass/Vol] 33.9 g/dL 32.0-35.0 [facility] MCV Auto (RBC) [Entitic vol] Ordered By: Patrizia Melendrez on 03-20-2023 MCV (RBC) [Entitic vol] 89.9 fL 80-100 [facility] Monocytes Auto (Bld) [#/Vol] Ordered By: Patrizia Melendrez on 03-20-2023 Monocytes (Bld) [#/Vol] 0.6 10*3/uL 0.0-0.8 [facility] Monocytes/100 WBC Auto (Bld) Ordered By: Patrizia Melendrez on 03-20-2023 Monocytes/100 WBC (Bld) 8.4 % . [facility] Neutrophils Auto (Bld) [#/Vo l]Ordered By: Patrizia Melendrez on 03-20-2023 Neutrophils (Bld) [#/Vol] 3.8 10*3/uL 1.8-7.7 [facility] Neutrophils/100 WBC Auto (Bl d)Ordered By: Patrizia Melendrez on 03-20-2023 Neutrophils/100 WBC (Bld) 52.9 % . [facility] No Panel InformationOrdered By: Patrizia Melendrez on 03-20-2023 Estimated GFR (CKD-EPI) > 60.0 mL/Min [facility] Creatinine Clearance (Chem N/A [facility] Nucleated erythrocytes [Pres ence] in Blood by Automated countOrdered By: Patrizia Melendrez on 03-20-2023 Nucleated RBC Auto Ql (Bld) 0.1 /100{WBC} 0-0.5 [facility] Platelet mean volume Auto (B ld) [Entitic vol]Ordered By: Patrizia Melendrez on 03-20-2023 Platelet mean volume (Bld) [Entitic vol] 8.0 fL 6.3-10.7 [facility] Platelets Auto (Bld) [#/Vol] Ordered By: Patrizia Melendrez on 03-20-2023 Platelets (Bld) [#/Vol] 232 10*3/uL 150-450 [facility] Potassium [Moles/volume] in Serum or PlasmaOrdered By: Patrizia Melendrez on 03-20-2023 Potassium [Moles/Vol] 4.3 mmol/L 3.5-5.1 [facility] Prothrombin time (PT)Ordered By: Patrizia Melendrez on 03-20-2023 PT Coag (PPP) [Time] 11.2 s 9.0-12.9 [facility] Comment on above: A hematocrit value g reater than 55% may lead to inaccurate results in coagulation testing. Patients having hematocrit values >55% require a special collection tube for coagulation studies. Please contact the laboratory at [phone] for redraw instructions. RBC Auto (Bld) [#/Vol]Ordere d By: Patrizia Melendrez on 03-20-2023 RBC (Bld) [#/Vol] 5.25 10*6/uL 3.60-5.00 [facility] Serum or plasma anion gap de terminationOrdered By: Patrizia Melendrez on 03-20-2023 Anion gap [Moles/Vol] 8.5 mmol/L 6.0-15.0 [facility] Serum or plasma high density lipoprotein (HDL) cholesterol measurementOrdered By: Patrizia Melendrez on 03-20-2023 Cholesterol in HDL [Mass/Vol] 45 mg/dL 23-92 [facility] Comment on above: HDL CHOL ATP-III CLA SSIFICATION Cardiovascular RiskHDL > or equal to 60 mg/dL LOWHDL < 40 mg/dL HIGH Serum or plasma total choles terol/high density lipoprotein (HDL) cholesterol mass ratOrdered By: Patrizia Melendrez on 03-20-2023 Cholesterol.total/Chol esterol in HDL [Mass ratio] 6.0 {ratio} <5.0 [facility] Sodium [Moles/volume] in Ser um or PlasmaOrdered By: Patrizia Melendrez on 03-20-2023 Sodium [Moles/Vol] 138 mmol/L 136-145 [facility] Triglyceride [Mass/volume] i n Serum or PlasmaOrdered By: Patrizia Melendrez on 03-20-2023 Triglyceride [Mass/Vol] 277 mg/dL 0-149 [facility] Comment on above: TRIG ATP III CLASSIF ICATIONTRIG less than 150 mg/dL NormalTRIG 150-199 mg/dL Borderline highTRIG 200-500 mg/dL High TRIG greater than 500 mg/dL Very highStandard traceable to the Center for Disease Conrtrol and Prevention (CDC) test method. Urea nitrogen [Mass/volume] in Serum or PlasmaOrdered By: Patrizia Melendrez on 03-20-2023 Urea nitrogen [Mass/Vol] 21 mg/dL 7-25 [facility] WBC Auto (Bld) [#/Vol]Ordere d By: Patrizia Melendrez on 03-20-2023 WBC (Bld) [#/Vol] 7.3 10*3/uL 3.8-11.6 [facility] CREATININEon 10-01-2022 Creatinine [Mass/Vol] 0.73 mg/dL Normal 0.55-1.02 [facility] Comment on above: Performed By: #### C PRISCILLA ####[facility] [id number] [address]Dr. Gonzalo Willis EGFR-AF KAZAKH >60 Normal >=60 [facility] Comment on above: Performed By: #### C PRISCILLA ####[facility] [id number] [id number]. Gonzalo Willis EGFR-NON AF KAZAKH >60 Normal >=60 [facility] Comment on above: Performed By: #### C PRISCILLA ####[facility] [id number] Willis CT NECK [facility] [place] 2022 CT NECK [facility] Vicki MCCORMACK EXAMINATION: CT NECK TRESSA MCCORMACK HISTORY: Mass of neck ; mass anterior [...] by: SHAWN GRAFF Date: 2022-10-01 09:51 Normal [facility] US THYROIDon 09-04-2022 US THYROID EXAMINATION: US [...] by: SHAWN GRAFF Date: 2022-09-04 16:52 Normal [facility] US CAROTID ART BILon 023 US [...] by: NISA EDWARDS Date: 2022-08-22 17:29 Normal [facility] Office Visit (Cardiology)on 07-19-2022 Follow-up visit [...] no s (more content not included)... Normal [employer] Tobacco Screening.on 023 Adult depression screening assessment No [facility] Heart-Jamilah jacques 250 DO Work Phone: Fall risk assessment a) No falls within the last [facility] Vipul hanna 250 DO Work Phone: Tobacco use status CPHS b) No [facility] Heart-Jamilah hanna 250 DO Work Phone: ECHOCARDIO M/2D COMPLETEon 1 07-29-2021 ECHOCARDIO M/2D COMPLETE Patient: ELIZABETH QUEZADA Exam Date: 05/28/2022 : 1960 Gender:F Ordering : DR NANO NGUYEN . Admission #: [id number] Family : Order #: [id number] CLICK HERE TO VIEW EXAM ECHOCARDIOGRAM REPORT [...] Kamara M.D. on 05/30/2022 at 11:06 Normal [facility] MAMM SCREEN 3D LOVE CADon 05-25-2022 MG MAMM SCREEN 3D LOVE CAD Patient: ELIZABETH QUEZADA Exam Date: 05/25/2022 : 1960 Gender:F Ordering : DR NANO NGUYEN . Admission #: [id number] Family : Order #: [id number] CLICK HERE TO VIEW EXAM RADIOLOGY REPORT [...] with lung cancer at age 58. LOCATION: [facility] BREAST COMPOSITION: Almost entirely fatty. FINDINGS: [...] MD on 05/25/2022 at 09:51 Normal [facility] NM STRESS/REST MULTIon 05-22 NM STRESS/REST MULTI Patient: EMILY QUEZADA ANGEL Sarita. Exam Date: 05/22/2022 : 1960 Gender:F Ordering : DR NANO NGUYEN . Admission #: [id number] Family : Order #: [id number] CLICK HERE TO VIEW EXAM RADIOLOGY REPORT [...] Graff M.D. on 05/22/2022 at 15:59 [address] [facility] CT LUNG CANCER SCREENINGon 1 07-11-2021 [...] NISA EDWARDS Date: 2022-05-11 15:25 Normal [facility] CBC AUTO DIFFon 05-10-2022 BASO # 0.0 103/ul Normal 0.0-0.1 [facility] Comment on above: Performed By: #### C BC ####[facility] [address] [place], [place] [address]Dr. Gonzalo Willis Basophils/100 WBC (Bld) 0.5 % Normal 0.2-2.0 [facility] Comment on above: Performed By: #### C BC ####[facility] [address] [place], [place] [address]Dr. Gonzalo Willis EO # 0.2 103/ul Normal 0.0-0.7 [facility] Comment on above: Performed By: #### C BC ####[facility] [address] [place], [place] [address]Dr. Gonzalo Willis Eosinophils/100 WBC (Bld) 1.8 % Normal 0.9-7.0 [facility] Comment on above: Performed By: #### C BC ####[facility] [address] [place], [place] [address]Dr. Gonzalo Willis Erythrocyte distribution width (RBC) [Ratio] 12.4 % Normal 11.0-15.0 [facility] Comment on above: Performed By: #### C BC ####[facility] [address] [place], [place] [address]Dr. Gonzalo Willis Hematocrit (Bld) [Volume fraction] 53.7 % Critically high 36.0-48.0 [facility] Comment on above: Performed By: #### C BC ####[facility] [address]xl[address]ib[address] [place], [place] [address]Dr. Gonzalo Willis Hemoglobin (Bld) [Mass/Vol] 18.4 g/dL Critically high 12.0-16.0 [facility] Comment on above: Performed By: #### C BC ####[facility] Peztkt[address] [place], [place] [address]Dr. Gonzalo Willis IG # 0.04 10e3/ul Critically high 0.00-0.03 [facility] Comment on above: Performed By: #### C BC ####[facility] [address] [place] [id number]. Gonzalo Willis IG % 0.5 % Normal 0.0-0.5 [facility] Comment on above: Performed By: #### C BC ####[facility] [address] [place] [id number]. Gonzalo Willis LYMPH # 2.5 103/ul Normal 1.2-3.8 [facility] Comment on above: Performed By: #### C BC ####[facility] Jrzelpeyqg5[address] [place] [id number]. Gonzalo Willis Lymphocytes/100 WBC (Bld) 29.2 % Normal 20.5-60.0 [facility] Comment on above: Performed By: #### C BC ####[facility] Lfuwevrekt[address] [place], [place] [address]Dr. Gonzalo Willis MANUAL DIFF REQ NO Normal [facility] Comment on above: Performed By: #### C BC ####[facility] Egpidnebzk[address] [place], [place] [address]Dr. Gonzalo Willis MCH (RBC) [Entitic mass] 31.2 pg Normal 26.7-34.0 [facility] Comment on above: Performed By: #### C BC ####[facility] [address] [place], [place] [address]Dr. Gonzalo Willis MCHC (RBC) [Mass/Vol] 34.3 g/dL Normal 29.9-35.2 [facility] Comment on above: Performed By: #### C BC ####[facility] R[address] [place], [place] [address]Dr. Gonzalo Willis MCV (RBC) [Entitic vol] 91.0 fL Normal 81.0-99.0 [facility] Comment on above: Performed By: #### C BC ####[facility] [address] [place], [place] [address]Dr. Gonzalo Willis MONO # 0.6 103/ul Normal 0.3-0.8 [facility] Comment on above: Performed By: #### C BC ####[facility] [address] [place] [id number]. Gonzalo Willis Monocytes/100 WBC (Bld) 7.2 % Normal 1.7-12.0 [facility] Comment on above: Performed By: #### C BC ####[facility] [address] [place] [id number]. Gonzalo Willis NEUT # 5.3 103/ul Normal 1.4-6.5 [facility] Comment on above: Performed By: #### C BC ####[facility] [address] [place] [id number]. Gonzalo Willis Neutrophils/100 WBC (Bld) 60.8 % Normal 43.0-75.0 [facility] Comment on above: Performed By: #### C BC ####[facility] [address]is[address] [place] [id number]. Gonzalo Willis Platelet mean volume (Bld) [Entitic vol] 9.5 fL Normal 9.5-13.5 [facility] Comment on above: Performed By: #### C BC ####[facility] [address] [place] [id number]. Gonzalo Willis PLT 265 103/ul Normal 150-450 [facility] Comment on above: Performed By: #### C BC ####[facility] [address] [place] [id number]. Gonzalo Willis RBC 5.90 106/ul Critically high 4.20-5.40 [facility] Comment on above: Performed By: #### C BC ####[facility] [address] [place] [id number]. Gonzalo Willis WBC 8.7 103/ul Normal 4.0-11.0 [facility] Comment on above: Performed By: #### C BC ####[facility] [address] [place] [id number]. Gonzalo Willis FREE THYROXINE INDEX T7on FTI 2.74 Normal 1.30-4.50 [facility] Comment on above: Performed By: #### T 7, TSH, CMP, LIPID ####[facility] [address] [place] [id number]. Gonzalo Willis T3U 33.0 % Normal 30.0-39.0 [facility] Comment on above: Performed By: #### T 7, TSH, CMP, LIPID ####[facility] [address]yl[address]ch[address] [place] [id number]. Gonzalo Willis T4 [Mass/Vol] 8.30 ug/dL Normal 4.80-13.90 [facility] Comment on above: Performed By: #### T 7, TSH, CMP, LIPID ####[facility] [address] [place] [id number]. Gonzalo Willis GLYCOHEMOGLOBIN A1Con 2021 ADA RECOMMENDATION SEE BELOW Normal [facility] Comment on above: Result Comment: ADA RECOMMENDED LIMIT 4.0 - 6.0 ADA THERAPEUTIC TARGET < 7.0 ACTION SUGGESTED > 7.0 Performed By: #### A 1C ####[facility] [address] [place] [address]Dr. Gonzalo Willis Glucose [Mass/Vol] 192 mg/dL Normal [facility] Comment on above: Performed By: #### A 1C ####[facility] [address] [place] [address]Dr. Gonzalo Willis HbA1c (Bld) [Mass fraction] 8.3 % Critically high 4.5-6.2 [facility] Comment on above: Performed By: #### A 1C ####[facility] [address] [place] [address]Dr. Gonzalo Willis IRONon 05-10-2022 Iron [Mass/Vol] 193.0 ug/dL Critically high 50.0-170.0 [facility] Comment on above: Performed By: #### I MATTHEW MONTELONGO, VITB12 ####[facility] [address] [place] [address]Dr. Gonzalo Willis LIPID PROFILEon 05-10-2022 CHOL-HDL RATIO NORM SEE BELOW Normal [facility] Comment on above: Result Comment: 3.3 - 4.4 LOW RISK 4.4 - 7.1 AVERAGE RISK 7.1 - 11.0 MODERATE RISK >11.0 HIGH RISK Performed By: #### T 7, TSH, CMP, LIPID #### [facility] [address] [place] [address] [address] Gonzalo Willis Cholesterol [Mass/Vol] 262 mg/dL Critically high <=200 [facility] Comment on above: Performed By: #### T 7, TSH, CMP, LIPID #### [facility] [address] [address] [address] Gonzalo Willis Cholesterol in HDL [Mass/Vol] 57 mg/dL Normal 40-60 [facility] Comment on above: Performed By: #### T 7, TSH, CMP, LIPID #### [facility] [address] [place] [address] Dr. Gonzalo Willis Cholesterol in LDL [Mass/Vol] 177.4 mg/dL Normal [facility] Comment on above: Performed By: #### T 7, TSH, CMP, LIPID #### [facility] [address] [place] [address] Dr. Gonzalo Willis Cholesterol.total/Chol esterol in HDL [Mass ratio] 4.6 {ratio} Normal [facility] Comment on above: Performed By: #### T 7, TSH, CMP, LIPID #### [facility] [address] [place] [address] Dr. Gonzalo Willis HDL NORMAL > or = 60 mg/dl - LO W CARDIOVASCULAR RISK <40 mg/dl - HIGH CARDIOVASCULAR RISK Normal [facility] Comment on above: Performed By: #### T 7, TSH, CMP, LIPID #### [facility] [address] [place] [address] Dr. Gonzalo Willis LDL CALC NORMAL SEE BELOW Normal [facility] Comment on above: Result Comment: <100 mg/dl OPTIMAL 100 - 129 mg/dl NEAR OR ABOVE OPTIMAL 130 - 159 mg/dl BORDERLINE HIGH 160 - 189 mg/dl HIGH >190 mg/dl VERY HIGH Performed By: #### T 7, TSH, CMP, LIPID #### [facility] [address] [place] [address] Dr. Gonzalo Willis Triglyceride [Mass/Vol] 138 mg/dL Normal <=150 [facility] Comment on above: Performed By: #### T 7, TSH, CMP, LIPID #### [facility] [address] [address] [address] Gonzalo Willis VLDL CALC 27.6 mg/dL Normal [facility] Comment on above: Performed By: #### T 7, TSH, CMP, LIPID #### [facility] [address] [address] [address] Gonzalo Willis PROF 14(COMP METB)on 022 Albumin [Mass/Vol] 4.3 g/dL Normal 3.4-5.0 [facility] Comment on above: Performed By: #### T 7, TSH, CMP, LIPID #### [facility] [address] [address] [address] Gonzalo Willis Albumin/Globulin [Mass ratio] 1.0 {ratio} Normal [facility] Comment on above: Performed By: #### T 7, TSH, CMP, LIPID #### [facility] [address] [address] [address] Gonzalo Willis ALP [Catalytic activity/Vol] 86 U/L Normal 46-116 [facility] Comment on above: Performed By: #### T 7, TSH, CMP, LIPID #### [facility] [address] [address] [address] Gonzalo Willis ALT [Catalytic activity/Vol] 20 U/L Normal 14-59 [facility] Comment on above: Performed By: #### T 7, TSH, CMP, LIPID #### [facility] [address] [address] [address] Gonzalo Willis Anion gap [Moles/Vol] 11.2 mmol/L Normal [facility] Comment on above: Performed By: #### T 7, TSH, CMP, LIPID #### [facility] [address] [address] [address] Gonzalo Willis AST [Catalytic activity/Vol] 9 U/L Critically low 15-37 [facility] Comment on above: Performed By: #### T 7, TSH, CMP, LIPID #### [facility] [address] [place] [address] Dr. Gonzalo Willis Bilirubin [Mass/Vol] 0.6 mg/dL Normal 0.2-1.0 [facility] Comment on above: Performed By: #### T 7, TSH, CMP, LIPID #### [facility] [address] [place] [address] Dr. Gonzalo Willis Calcium [Mass/Vol] 10.1 mg/dL Normal 8.5-10.1 [facility] Comment on above: Performed By: #### T 7, TSH, CMP, LIPID #### [facility] [address] [address] [address] Gonzalo Willis Chloride [Moles/Vol] 98 mmol/L Normal 98-107 [facility] Comment on above: Performed By: #### T 7, TSH, CMP, LIPID #### [facility] [address] [place] [address] Dr. Gonzalo Willis CO2 [Moles/Vol] 28.4 mmol/L Normal 21.0-32.0 [facility] Comment on above: Performed By: #### T 7, TSH, CMP, LIPID #### [facility] [address] [place] [address] Dr. Gonzalo Willis Creatinine [Mass/Vol] 0.72 mg/dL Normal 0.55-1.02 [facility] Comment on above: Performed By: #### T 7, TSH, CMP, LIPID #### [facility] [address] [place] [address] Dr. Gonzalo Willis EGFR-AF KAZAKH >60 Normal >=60 [facility] Comment on above: Performed By: #### T 7, TSH, CMP, LIPID #### [facility] [address] [place] [address] Dr. Gonzalo Willis EGFR-NON AF KAZAKH >60 Normal >=60 [facility] Comment on above: Performed By: #### T 7, TSH, CMP, LIPID #### [facility] [address] [place] [address] Dr. Gonzalo Willis Globulin (S) [Mass/Vol] 4.1 g/dL Normal [facility] Comment on above: Performed By: #### T 7, TSH, CMP, LIPID #### [facility] [address] [address] [address] Gonzalo Willis Glucose [Mass/Vol] 164 mg/dL Critically high 74-106 [facility] Comment on above: Performed By: #### T 7, TSH, CMP, LIPID #### [facility] [address] [address] [address] Gonzalo Willis Potassium [Moles/Vol] 4.6 mmol/L Normal 3.5-5.1 [facility] Comment on above: Performed By: #### T 7, TSH, CMP, LIPID #### [facility] [address] [address] [address] Gnozalo Willis Protein [Mass/Vol] 8.4 g/dL Critically high 6.4-8.2 [facility] Comment on above: Performed By: #### T 7, TSH, CMP, LIPID #### [facility] [address] [place] [address] Dr. Gonzalo Willis Sodium [Moles/Vol] 133 mmol/L Critically low 136-145 [facility] Comment on above: Performed By: #### T 7, TSH, CMP, LIPID #### [facility] [address] [place] [address] Dr. Gonzalo Willis Urea nitrogen [Mass/Vol] 20.0 mg/dL Critically high 7.0-18.0 [facility] Comment on above: Performed By: #### T 7, TSH, CMP, LIPID #### [facility] [address] [place] [address] Dr. Gonzalo Willis Urea nitrogen/Creatinine [Mass ratio] 27.8 mg/mg Normal [facility] Comment on above: Performed By: #### T 7, TSH, CMP, LIPID #### [facility] [address] [place] [address] Dr. Gonzalo Willis TSHon 05-10-2022 TSH 0.872 uIU/mL Normal 0.358-3.740 [facility] Comment on above: Performed By: #### T 7, TSH, CMP, LIPID ####[facility] [address] [place] [id number]. Gonzalo Willis VITAMIN B12on 05-10-2022 Cobalamin (Vitamin B12) [Mass/Vol] 526.0 pg/mL Normal 193.0-986.0 [facility] Comment on above: Performed By: #### I REGINALD, VITAD, VITB12 ####[facility] [address] [place] [id number]. Gonzalo Willis VITAMIN D 25 OHon 05-10-2022 VIT D 25-OH 67.4 ng/mL Normal [facility] Comment on above: Performed By: #### I REGINALD, VITAD, VITB12 ####[facility] [address] [place] [address]Dr. [facility] VIT D RANGES SEE BELOW Normal [facility] Comment on above: Result Comment: <20 ng/mL Vit D deficient 20 - <30 ng/mL Vit D insufficient 30 - 100 ng/mL Vit D sufficient >100 ng/mL Potential Toxicity Performed By: #### I REGINALD, VITAD, VITB12 ####[facility] [address] [place] [id number]. Gonzalo Willis [facility]on SARS-CoV-2 (COVID-19) RNA WALKER+probe Ql (Unsp spec) Not detected Normal NOT DETECTED [facility] Comment on above: Result Comment: When diagnostic [...] for this test is supported by the [place] of Health and Human Service's declaration that [...] used). Performed By: #### C TB #### [facility] [address] [place] [address] Dr. Gonzalo Willis Vital Signs Date Time Vital Sign Value Performing Clinician Facility 01-28-2024 12:01-0400 Diastolic blood pressure 70 mm[Hg] Papa Santiago MD Work Phone: [facility] 01-28-2024 12:01-0400 Heart rate 83 /min Papa Santiago MD Work Phone: [facility] 01-28-2024 12:01-0400 Systolic blood pressure 147 mm[Hg] Papa Santiago MD Work Phone: [facility] 01-16-2024 11:51-0400 Body height 165.1 cm Shanice Larsen MD Work Phone: [facility] 01-16-2024 11:51-0400 Body mass index (BMI) [Ratio] 28.62 kg/m2 Shanice Larsen MD Work Phone: [facility] 01-16-2024 11:51-0400 Body weight 78.02 kg Shanice Larsen MD Work Phone: [facility] 01-16-2024 11:51-0400 Diastolic blood pressure 69 mm[Hg] Shanice Larsen MD Work Phone: [facility] 01-16-2024 11:51-0400 Heart rate 88 /min Shanice Larsen MD Work Phone: [facility] 01-16-2024 11:51-0400 SaO2% (BldA) [Mass fraction] 98 % Shanice Larsen MD Work Phone: [facility] 01-16-2024 11:51-0400 Systolic blood pressure 110 mm[Hg] Shanice Larsen MD Work Phone: [facility] 10-10-2023 12:40-0400 Body height 160 cm Shanice Larsen MD Work Phone: [facility] 10-10-2023 12:40-0400 Body weight 77.11 kg Shanice Larsen MD Work Phone: [facility] 10-10-2023 12:40-0400 Diastolic blood pressure 73 mm[Hg] Shanice Larsen MD Work Phone: [facility] 10-10-2023 12:40-0400 Heart rate 90 /min Shanice Larsen MD Work Phone: [facility] 10-10-2023 12:40-0400 Respiratory rate 16 /min Shanice Larsen MD Work Phone: [facility] 10-10-2023 12:40-0400 SaO2% (BldA) [Mass fraction] 97 % Shanice Larsen MD Work Phone: [facility] 10-10-2023 12:40-0400 Systolic blood pressure 127 mm[Hg] Shanice Larsen MD Work Phone: [facility] 08-07-2023 10:40-0500 Body height 162 cm Andegoni Sandalakis [employer]SE [employer]PERATOR.[employer] SALES [employer]ENT Work Phone: [facility] 08-07-2023 10:40-0500 Body temperature 98.01 [degF] Andegoni Sandalakis [employer] HOUSE OPERATOR.[employer] INSURANCE SALES AGENT Work Phone: [facility] 08-07-2023 10:40-0500 Body weight 82.64 kg Andegoni Sandalakis [employer] HOUSE OPERATOR.[employer]IFE INSURANCE SALES AGENT Work Phone: [facility] 08-07-2023 10:40-0500 Diastolic blood pressure 70 mm[Hg] Andegoni Sandalakis [employer] HOUSE OPERATOR.[employer]IFE INSURANCE SALES AGENT Work Phone: [facility] 08-07-2023 10:40-0500 Heart rate 82 /min Andegoni Sandalakis [employer] HOUSE OPERATOR.[employer]IFE INSURANCE SALES AGENT Work Phone: [facility] 08-07-2023 10:40-0500 SaO2% (BldA) [Mass fraction] 97 % Anddillon Cruz [employer] HOUSE OPERATOR.LIFE INSURANCE SALES AGENT Work Phone: [facility] 08-07-2023 10:40-0500 Systolic blood pressure 128 mm[Hg] Anddillon Cruz [employer] HOUSE OPERATOR.LIFE INSURANCE SALES AGENT Work Phone: [facility] 07-30-2023 16:30-0500 SaO2% (BldA) [Mass fraction] 98 % NANO HOY [facility] Comment on above: Order Comment: Specimen Type: ARTERIAL B LOOD SPECIMENOrdering Facility: [facility] Address: [address] [place] [address] Performed By: #### A LLBG ####[facility] [id number] [address] [place] 07-30-2023 13:11-0500 SaO2% (BldA) [Mass fraction] 98 % NANO NGUYEN [facility] Comment on above: Order Comment: Specimen Type: ARTERIAL B LOOD SPECIMENOrdering Facility: [facility] Address: [address] [place] [address] Performed By: #### A LLBG ####[facility] [id number] [address] [place] 07-30-2023 10:56-0500 SaO2% (BldA) [Mass fraction] 96 % NANO NGUYEN [facility] Comment on above: Order Comment: Specimen Type: ARTERIAL B LOOD SPECIMENOrdering Facility: [facility] Address: [address] [place] [address] Performed By: #### A LLBG ####[facility] [id number] [place] [address] [place] 07-30-2023 08:10-0500 SaO2% (BldA) [Mass fraction] 97 % NANO HOY [facility] Comment on above: Order Comment: Specimen Type: ARTERIAL B LOOD SPECIMENOrdering Facility: [facility] Address: [address] [place] [address] Performed By: #### A LLBG ####[facility] [id number] [place] [id number] [place] 07-30-2023 06:05-0500 SaO2% (BldA) [Mass fraction] 97 % NANO HOY [facility] Comment on above: Order Comment: Specimen Type: ARTERIAL B LOOD SPECIMENOrdering Facility: [facility] Address: [address] [place] [address] Performed By: #### A LLBG ####[facility] [id number] [address] [place] 07-30-2023 03:36-0500 SaO2% (BldA) [Mass fraction] 98 % NANO HOY [facility] Comment on above: Order Comment: Specimen Type: ARTERIAL B LOOD SPECIMENOrdering Facility: [facility] Address: [address] [place] [address] Performed By: #### A LLBG ####[facility] [id number] [place] [id number] [place] 07-30-2023 01:31-0500 SaO2% (BldA) [Mass fraction] 98 % NANO HOY [facility] Comment on above: Order Comment: Specimen Type: ARTERIAL B LOOD SPECIMENOrdering Facility: [facility] Address: [address] [place] [address] Performed By: #### A LLBG ####[facility] [id number] [place] [id number] [place] 07-29-2023 23:17-0500 SaO2% (BldA) [Mass fraction] 98 % NANO HOY [facility] Comment on above: Order Comment: Specimen Type: ARTERIAL B LOOD SPECIMENOrdering Facility: [facility] Address: [address] [place] [address] Performed By: #### A LLBG ####[facility] [id number] [place] [id number] [place] [facility] 07-29-2023 21:16-0500 SaO2% (BldA) [Mass fraction] 98 % NANO HOY [facility] Comment on above: Order Comment: Specimen Type: ARTERIAL B LOOD SPECIMENOrdering Facility: [facility] Address: [address] [place] [address] Performed By: #### A LLBG ####[facility] [id number] [address] [place] 07-29-2023 19:19-0500 SaO2% (BldA) [Mass fraction] 99 % NANO HOY [facility] Comment on above: Order Comment: Specimen Type: ARTERIAL B LOOD SPECIMENOrdering Facility: [facility] Address: [address] [place] [address] Performed By: #### A LLBG ####[facility] [id number] [address] [place] 07-29-2023 16:39-0500 SaO2% (BldA) [Mass fraction] 97 % NANO HOY [facility] Comment on above: Order Comment: Specimen Type: ARTERIAL B LOOD SPECIMENOrdering Facility: [facility] Address: [address] [place] [address] Performed By: #### A LLBG ####[facility] [id number] [place] [id number] [place] 07-29-2023 14:51-0500 SaO2% (BldA) [Mass fraction] 99 % NANO HOY [facility] Comment on above: Order Comment: Specimen Type: ARTERIAL B LOOD SPECIMENOrdering Facility: [facility] Address: [address] [place] [address] Performed By: #### A LLBG ####[facility] [id number] [place] [id number] [place] 07-29-2023 13:51-0500 SaO2% (BldA) [Mass fraction] 99 % NANO HOY [facility] Comment on above: Order Comment: Specimen Type: ARTERIAL B LOOD SPECIMENOrdering Facility: [facility] Address: [address] [place] [address] Performed By: #### A LLMG ####[facility] [id number] [place] [id number] [place] 07-29-2023 13:19-0500 SaO2% (BldA) [Mass fraction] 99 % NANO HOY [facility] Comment on above: Order Comment: Specimen Type: ARTERIAL B LOOD SPECIMENOrdering Facility: [facility] [facility] Address: [address] [place] [address] Performed By: #### A LLBG ####[facility] LABIA [id number] [place] [id number] [place] 07-29-2023 12:23-0500 SaO2% (BldA) [Mass fraction] 100 % NANO HOY [facility] Comment on above: Order Comment: Specimen Type: ARTERIAL B LOOD SPECIMENOrdering Facility: [facility] Address: [address] [place] [address] Performed By: #### A LLBG ####[facility] LABCLIA [id number] [place] [id number] [place] 07-29-2023 11:28-0500 SaO2% (BldA) [Mass fraction] 100 % NANO HOY [facility] Comment on above: Order Comment: Specimen Type: ARTERIAL B LOOD SPECIMENOrdering Facility: [facility] Address: [address] [place] [address] Performed By: #### A LLBG ####[facility] LABCLIA [id number] [place] [id number] [facility] 07-29-2023 10:41-0500 SaO2% (BldA) [Mass fraction] 100 % NANO HOY [facility] Comment on above: Order Comment: Specimen Type: ARTERIAL B LOOD SPECIMENOrdering Facility: [facility] Address: [address] [place], [place] [id number] Performed By: #### A LLBG ####[facility] LABCLIA [id number] [place] [id number] [place] 07-29-2023 09:58-0500 SaO2% (BldA) [Mass fraction] 98 % NANO HOY [facility] Comment on above: Order Comment: Specimen Type: ARTERIAL B LOOD SPECIMENOrdering Facility: [facility] Address: [address] [place] [address] Performed By: #### A LLBG ####[facility] LABCLIA [id number] [address] 07-29-2023 09:43-0500 SaO2% (BldA) [Mass fraction] 99 % NANO HOY [facility] Comment on above: Order Comment: Specimen Type: ARTERIAL B LOOD SPECIMENOrdering Facility: [facility] Address: [address] [place] [address] Performed By: #### A LLBG ####[facility] LABCLIA [id number] [place] [id number] [place] 07-29-2023 07:09-0500 SaO2% (BldA) [Mass fraction] 99 % NANO HOY [facility] Comment on above: Order Comment: Specimen Type: ARTERIAL B LOOD SPECIMENOrdering Facility: [facility] Address: [address] [place] [address] Performed By: #### A LLBG ####[facility] LABCLIA [id number] [place] [id number] [place] 05-28-2023 13:50-0500 Body height 165.1 cm Shanice Larsen MD Work Phone: [facility] 05-28-2023 13:50-0500 Body weight 78.93 kg Shanice Larsen MD Work Phone: [facility] 05-28-2023 13:50-0500 Diastolic blood pressure 59 mm[Hg] Shanice Larsen MD Work Phone: [facility] 05-28-2023 13:50-0500 Heart rate 82 /min Shanice Larsen MD Work Phone: [facility] 05-28-2023 13:50-0500 Respiratory rate 16 /min Shanice Larsen MD Work Phone: [facility] 05-28-2023 13:50-0500 SaO2% (BldA) [Mass fraction] 97 % Shanice Larsen MD Work Phone: [facility] 05-28-2023 13:50-0500 Systolic blood pressure 109 mm[Hg] Shanice Larsen MD Work Phone: [facility] 04-03-2023 09:16-0400 Diastolic blood pressure 116 mm[Hg] Shanice Larsen MD Work Phone: [facility] 04-03-2023 09:16-0400 Heart rate 101 /min Shanice Larsen MD Work Phone: [facility] 04-03-2023 09:16-0400 Systolic blood pressure 200 mm[Hg] Shanice Larsen MD Work Phone: [facility] 03-26-2023 17:15-0400 Diastolic blood pressure 64 mm[Hg] MD Nano Nguyen Work Phone: [facility] 03-26-2023 17:15-0400 Heart rate 69 /min MD Nano Nguyen Work Phone: [facility] 03-26-2023 17:15-0400 Respiratory rate 20 /min MD Nano Nguyen Work Phone: [facility] 03-26-2023 17:15-0400 SaO2% (BldA) [Mass fraction] 99 % MD Nano Nguyen Work Phone: [facility] 03-26-2023 17:15-0400 Systolic blood pressure 143 mm[Hg] MD Nano Nguyen Work Phone: [facility] 03-26-2023 13:02-0400 Body height 165.1 cm MD Nano Nguyen Work Phone: [facility] 03-26-2023 13:02-0400 Body temperature 97.7 [degF] MD Nano Nguyen Work Phone: [facility] 03-26-2023 13:02-0400 Body weight 84.5 kg MD Nano Nguyen Work Phone: [facility] 03-20-2023 13:00-0400 Body height 165.1 cm Patrizia Melendrez Other [employer] Other 03-20-2023 13:00-0400 Body mass index (BMI) [Ratio] 31.31 kg/m2 Patrizia Melendrez Other [employer] Other 03-20-2023 13:00-0400 Body weight 85.37 kg Patrizia Arevalooroge Other [employer] Other 03-20-2023 13:00-0400 Diastolic blood pressure 82 mm[Hg] Patrizia Arevalooroge Other [employer] Other 03-20-2023 13:00-0400 SaO2% (BldA) [Mass fraction] 94 % Patrizia Parvin Other [employer] Other 03-20-2023 13:00-0400 Systolic blood pressure 124 mm[Hg] Patrizia Arevalooroge Other [facility] [employer] Other 07-19-2022 13:16-0500 Body height 165.1 cm Nano M Hoy Work Phone: [facility] [address] DO Work Phone: 07-19-2022 13:16-0500 Body mass index (BMI) [Ratio] 31.95 kg/m2 Nano M Hoy Work Phone: [facility] 250 DO Work Phone: 07-19-2022 13:16-0500 Body surface area Derived from formula 1.94 m2 Nano M Hoy Work Phone: [facility] 250 DO Work Phone: 07-19-2022 13:16-0500 Body weight 87.09 kg Nano M Hoy Work Phone: [facility] 250 DO Work Phone: 07-19-2022 13:16-0500 Diastolic blood pressure 64 mm[Hg] Nano M Hoy Work Phone: [facility] 250 DO Work Phone: 07-19-2022 13:16-0500 Diastolic blood pressure 70 mm[Hg] Nano M Hoy Work Phone: [facility] 250 DO Work Phone: 07-19-2022 13:16-0500 Heart rate 85 /min Nano M Hoy Work Phone: [facility] [address] DO Work Phone: 07-19-2022 13:16-0500 Systolic blood pressure 110 mm[Hg] Nano M Hoy Work Phone: [facility] [address] DO Work Phone: 07-19-2022 13:16-0500 Systolic blood pressure 100 mm[Hg] Nano M Hoy Work Phone: [facility] [facility] DO Work Phone: Encounters Encounter Date Encounter Type Care Provider Facility Start: 04-07-2024 End: 04-07-2024 ambulatory NANO NGUYEN Facility:[facility] Comment on above: 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); 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[place] heart with stable angina pectoris (HCC) Start: 04-07-2024 End: 04-07-2024 Telemedicine consultation with patient Shanice Larsen MD Work Phone: Cardiology Start: 02-26-2024 End: 02-26-2024 ambulatory Christel De La Fuente Pulmonary Medicine Start: 02-25-2024 End: 02-25-2024 ambulatory Hilary Blackman RN Pulmonary Medicine Comment on above: CT RESULTS Start: 02-25-2024 End: 02-25-2024 E-mail encounter from caregiver Hilary Blackman RN Pulmonary Medicine Start: 02-25-2024 End: 02-25-2024 Telephone encounter Hilary Blackman RN Pulmonary Medicine Comment on above: Results Start: 02-18-2024 End: 02-18-2024 ambulatory NANO NGUYEN Facility:[facility] Start: 02-18-2024 End: 02-18-2024 Subsequent hospital visit by physician Ct 2 Main Qb (I-Stat) Radiology Comment on above: 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) [I25.118] Start: 02-04-2024 ambulatory Haydee Corky [facility] Start: 02-04-2024 Patient encounter procedure Haydee Corky [facility] Start: 01-28-2024 End: 01-28-2024 Office outpatient visit 25 minutes Papa Santiago MD Work Phone: Vascular Surg Dept Comment on above: 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) (Primary Dx) Start: 01-28-2024 End: 01-28-2024 ambulatory NANO NGUYEN Facility:[facility] Start: 01-16-2024 End: 01-16-2024 Patient encounter procedure Shanice Larsen MD Work Phone: Cardiology Comment on above: 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) (Primary Dx); PAD (peripheral artery disease) (HCC); Primary hypertension; Hyperlipidemia, unspecified hyperlipidemia type Start: 01-16-2024 End: 01-16-2024 ambulatory NANO NGUYEN Facility:[facility] Start: 01-03-2024 Orders Only Papa Santiago MD Work Phone: Vascular Surg Dept Comment on above: 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, bilateral legs (HCC) (Primary Dx) Start: 01-01-2024 Telephone encounter Nano Nguyen MD Work Phone: [address] [place] [address] Comment on above: Appointment Start: 12-30-2023 End: 12-30-2023 ambulatory TRIPP HUTSON Not Available Start: 10-30-2023 ambulatory Anna Perea RN [facility] Start: 10-30-2023 Patient encounter procedure Anna Perea RN [facility] Start: 10-25-2023 Telephone encounter Shanice Hallman MD Work Phone: Cardiology Start: 10-24-2023 ambulatory Christel De La Fuente Pulmonar y Medicine Start: 10-21-2023 End: 10-22-2023 ambulatory Gloria Callahan MD Work Phone: Pulmonary Medicine Comment on above: Lung nodule (Primary Dx) Start: 10-21-2023 End: 10-21-2023 Telemedicine consultation with patient Gloria Callahan MD Work Phone: Pulmonary Medicine Start: 10-18-2023 Telephone encounter Shanta comer RN Work Phone: [facility] Comment on above: Insurance Authorizat ion ([employer] 140MG/ML auto-injectors/) Start: 10-17-2023 Telephone encounter Shanice Hallman MD Work Phone: Cardiology Comment on above: Received Outside Med ical Records ([facility]ALDRON ECHO REPORT) Received Outside Med ical Records (CD IMAGES [facility]) Start: 10-10-2023 End: 10-10-2023 Patient encounter procedure Shanice Larsen MD Work Phone: Cardiology Comment on above: 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) (Primary Dx); SOB (shortness of breath); PAD (peripheral artery disease) (HCC); TIA (transient ischemic attack) Start: 10-10-2023 End: 10-10-2023 ambulatory NANO Sara WENDY Facility:[facility] Start: 10-10-2023 End: 10-10-2023 Subsequent hospital visit by physician Ct 2 Main Qb (I-Stat) Radiology Comment on above: Lung nodule [R91.1] Start: 09-27-2023 ambulatory [facility] Start: 09-26-2023 End: 09-28-2023 Emergency department patient visit [facility] Start: 09-23-2023 Telephone encounter Papa Perez i, MD Work Phone: Vascular Surg Dept Comment on above: dental clearance Start: 09-12-2023 E-mail encounter jose titus caregiver Daljit Pina [employer] HEAD HOUSE OPERATOR.LIFE INSURANCE SALES AGENT Work Phone: [facility] Start: 09-12-2023 Follow-up encounter Daljit crenshaw [employer]ILN HEAD HOUSE OPERATOR.LIFE INSURANCE SALES AGENT Work Phone: Radiology Comment on above: Actionable Findings Follow-up Start: 09-03-2023 ambulatory Anna Perea RN [facility] Comment on above: Coronary artery dise ase involving [place] coronary artery of [place] heart without angina pectoris (Primary Dx) Start: 08-23-2023 Telephone encounter Nano Nguyen MD Work Phone: NOC Comment on above: Appointment Start: 08-13-2023 E-mail encounter jose titus caregiver Daljit Pina [employer] HEAD HOUSE OPERATOR.LIFE INSURANCE SALES AGENT Work Phone: [facility] Start: 08-13-2023 Follow-up encounter Daljit Reit er [employer] HEAD HOUSE OPERATOR.LIFE INSURANCE SALES AGENT Work Phone: Radiology Comment on above: Actionable Findings Follow-up Start: 08-08-2023 Telephone encounter Moriah Muniz [facility] A16 Comment on above: Follow Up Phone Call (RC follow up call all clear. /) Start: 08-07-2023 End: 08-07-2023 Patient encounter procedure Dania Cruz KILN HEAD HOUSE OPERATOR.LIFE INSURANCE SALES AGENT Work Phone: Cardiothoracic Comment on above: S/P CABG (coronary a rtery bypass graft) (Primary Dx); PVD (peripheral vascular disease) (HCC) Start: 08-07-2023 End: 08-07-2023 ambulatory NANO M HOY Facility:[facility] Start: 08-07-2023 End: 08-07-2023 Subsequent hospital visit by physician Xr Chest Main J1 Work Phone: Radiology Comment on above: Surgery follow-up [Z 09] Start: 08-06-2023 Telephone encounter Kevin Muniz NOC Comment on above: Follow Up Phone Call (RC f/u all clear/) Start: 08-01-2023 Follow-up encounter Willem marrufo MD Work Phone: Cardiothoracic Comment on above: Surgery follow-up (P rimary Dx) Start: 07-29-2023 End: 08-02-2023 Evaluation and management of inpatient NANO M HOY Facility:[facility] Start: 07-22-2023 Patient encounter status Alma Rosa Suarez MD Work Phone: [facility] Start: 07-17-2023 End: 07-17-2023 ambulatory NANO M HOY Facility:[facility] Start: 07-17-2023 End: 07-17-2023 ambulatory NANO M HOY Facility:[facility] Start: 07-08-2023 End: 07-08-2023 ambulatory NANO M HOY Facility:[facility] Start: 07-02-2023 End: 07-02-2023 ambulatory NANO M HOY Facility:[facility] Start: 07-02-2023 End: 07-02-2023 ambulatory NANO M HOY Facility:[facility] Start: 07-02-2023 End: 07-02-2023 ambulatory NANO M HOY Facility:[facility] Start: 06-14-2023 End: 06-14-2023 ambulatory NANO NGUYEN Facility:[facility] Start: 05-30-2023 Telephone encounter Willem marrufo MD Work Phone: Cardiothoracic Comment on above: Insurance Authorizat ion Referral Information ; New Patient Evaluation Start: 05-28-2023 End: 05-28-2023 ambulatory SHANICE LARSEN Facility:[facility] Start: 05-28-2023 End: 05-28-2023 Patient encounter procedure Shanice Larsen MD Work Phone: Cardiology Comment on above: SOB (shortness of br eath) (Primary Dx); Coronary artery disease involving [place] coronary artery of [place] heart without angina pectoris; PAD (peripheral artery disease) (HCC) Start: 05-28-2023 End: 05-28-2023 ambulatory SHANICE LARSEN Facility:[facility] Start: 05-13-2023 End: 05-13-2023 ambulatory Shanice Larsen MD Work Phone: Cardiology Comment on above: Coronary artery dise ase involving [place] coronary artery of [place] heart without angina pectoris (Primary Dx); Preop cardiovascular exam; Morbid obesity (HCC) Start: 05-13-2023 End: 05-13-2023 Patient encounter status Shanice Larsen MD Work Phone: [facility] Work Phone: Start: 05-13-2023 End: 05-13-2023 Telemedicine consultation with patient Shanice Larsen MD Work Phone: [facility] Start: 04-26-2023 Orders Only Shanice Hinton i, MD Work Phone: Cardiology Comment on above: Coronary artery dise ase involving [place] coronary artery without angina pectoris, unspecified whether [place] or transplanted heart (Primary Dx) Start: 04-08-2023 Orders Only Pamela Laws APRN.CNP Work Phone: Cardiology Comment on above: Abnormal stress test (Primary Dx) Start: 04-03-2023 End: 04-03-2023 Patient encounter procedure Shanice Larsen MD Work Phone: Cardiology Comment on above: Abnormal stress test (Primary Dx) Start: 03-26-2023 End: 03-26-2023 ambulatory Patrizia Melendrez Facility:[facility] Start: 03-26-2023 Telephone encounter Patrizia HOFF G Cardiology Start: 03-26-2023 End: 03-26-2023 Admission to same day surgery center MD Nano Nguyen Work Phone: [facility]-[employer] Work Phone: Start: 03-26-2023 End: 03-26-2023 ambulatory MD Nano Nguyen Work Phone: [facility] Work Phone: Start: 03-25-2023 End: 03-25-2023 ambulatory Patrizia Melendrez Other [employer] [facility] [employer] Other Start: 03-25-2023 Telephone encounter Patrizia HOFF G Cardiology Start: 03-20-2023 End: 03-20-2023 ambulatory Patrizia Melendrez Facility:[facility] Start: 03-20-2023 End: 03-20-2023 Patient encounter procedure MD Nano Nguyen Work Phone: [facility]-Pre-Surgical Testing Work Phone: Start: 03-20-2023 End: 03-20-2023 ambulatory MD Nano Nguyen Work Phone: [facility] Work Phone: Start: 03-20-2023 Office outpatient ne w 45 minutes Patrizia Melendrez [facility] Start: 03-13-2023 Message Nano Nguyen Work Phone: [facility] 250 DO Work Phone: Start: 11-28-2022 Message Nano Nguyen Work Phone: [facility] 600 DO Work Phone: Start: 10-01-2022 End: 10-02-[address] NANO NGUYEN . Facility:[facility] Start: 09-04-2022 End: 09-05-[address] NANO NGUYEN . Facility:[facility] Start: 08-22-2022 End: 08-23-[address] STEPAN SAM Facility:[facility] Start: 07-19-2022 Office consultation new/estab patient 60 min Nano Nguyen Work Phone: [facility] 250 DO Work Phone: Start: 07-19-2022 ambulatory Nano Nguyen Fac ility: Start: 07-02-2022 End: 07-03-[address] NANO NGUYEN . Facility:[facility] Start: 05-30-2022 End: 05-31-[address] NANO NGUYEN . Facility:[facility] Start: 05-29-2022 Encounter for genera l adult medical examination without abnormal findings ANNA IRBY [facility] Start: 05-28-2022 End: 05-29-[address] [...] 01-29-2022 ambulatory JOE HUBBARD Facility:[facility] Nano Nguyen Work Phone: [facility] 250 DO Work Phone: Procedures Date Procedure Procedure Detail Performing Clinician Start: 08-07-2023 Radiologic exam ches t 2 views Willem Suarez MD Work Phone: Start: 07-17-2023 Antibody screen NANO NGUYEN Comment on above: Order Comment: Speci men Type: BLOOD SPECIMENOrdering Facility: [facility] Address: [address] [place] [address] Performed By: #### T [id number] ####CC MAIN BLOOD BANKCLIA [id number] [facility] [id number] [address] [place] Start: 05-28-2023 Echocardiography ERIKA NGUYEN Start: 05-28-2023 Lipid 1996 panel - S radha or Plasma Shanice Larsen MD Work Phone: Start: 03-26-2023 CL LHC & COR Angio (Right) MD Nano Nguyen Work Phone: Colonoscopy Nano Nguyen Work Phone: Decompression of med jayjay nerve Nano Nguyen Work Phone: History of coronary artery bypass grafting S/P CABG (coronary artery bypass graft) Anddillon Cruz KILN HEAD HOUSE OPERATOR.LIFE INSURANCE SALES AGENT Work Phone: Ligation of fallopian tube D ouglas Sara Nguyen Work Phone: Release of trigger finger Do ugcarlos enrique Nguyen Work Phone: Tonsillectomy and adenoidectomy Nano Nguyen Work Phone: Plan of Treatment Date Care Activity Detail Author Start: 05-28-2028 Lipid 1996 panel - S radha or Plasma Lipid Screening [facility] Start: 05-28-2026 Diabetes Screening Diabetes Screenin g [facility] Start: 04-03-2026 Diabetes Screening Diabetes Screenin g [facility] Start: 02-17-2025 Screening for malign ant neoplasm of lung Lung Cancer Screening [facility] Start: 01-15-2025 BP Controlled (<130/80) BP Controlle d (<130/80) [facility] Start: 10-09-2024 BP Controlled (<130/80) BP Controlle d (<130/80) [facility] Start: 10-09-2024 Screening for malign ant neoplasm of lung Lung Cancer Screening [facility] Start: 08-07-2024 BP Controlled (<130/80) BP Controlle d (<130/80) [facility] Start: 07-02-2024 BP Controlled (<130/80) BP Controlle d (<130/80) [facility] Start: 05-28-2024 Hepatitis B surface antibody level LDL Cholesterol [facility] Start: 04-28-2024 End: 04-28-2024 Patient encounter procedure 04/28/2024 10:30 AM EST Office Visit Vascular Surg Dept [address] [place] [address] Papa Santiago MD [address] [place] [address] 3 month follow-up no testing Vascular Surg Dept Comment on above: 3 month follow-up no testing Start: 04-16-2024 End: 04-16-2024 Patient encounter procedure Radiology Comment on above: Lung nodule Lung nodule/6 MONTH FU/Staff Message Start: 04-07-2024 End: 04-07-2024 ambulatory 04/07/2024 8:30 AM EDT [facility] Cardiology [address] [place] [address] Shanice Larsen MD [address] [place], [place] [id number] dx: 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[place] heart with stable angina pectoris Cardiology Comment on above: dx: 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[place] heart with stable angina pectoris Start: 02-23-2024 Covid-19 Vaccine ( season) Covid-19 Vaccine ( season) [facility] Start: 02-23-2024 Covid-19 Vaccine ( season) Covid-19 Vaccine ( season) [facility] Start: 02-23-2024 Influenza vaccination Influenza Vacc ine (#1) [facility] Start: 02-18-2024 End: 02-18-2024 Patient encounter procedure 02/18/2024 2:30 PM EDT Appointment Radiology [address] [place] [id number] 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[place] heart with stable angina pect... Radiology Comment on above: Coronary artery dise ase of [place] artery of [place] heart with stable angina pect... 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, bilateral legs f/u Start: 01-16-2024 End: 04-16-2024 Lipid 1996 panel - Serum or Plasma LIPID PANEL BASIC Lab Routine 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[place] heart with stable angina pectoris (HCC) PAD (peripheral artery disease) (HCC) Primary hypertension Hyperlipidemia, unspecified hyperlipidemia type Expected: 01/16/2024, Expires: 04/16/2024 [facility] Work Phone: Comment on above: Expected: 01/16/2024 , Expires: 04/16/2024 Start: 01-16-2024 End: 01-16-2024 Patient encounter procedure 01/16/2024 11:15 AM EDT Office Visit Cardiology [address] [place] [address] Shanice Larsen MD [address] [place] [address] 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[place] heart with stable angina pect... Cardiology Comment on above: Coronary artery dise ase of [place] artery of [place] heart with stable angina pect... Start: 01-16-2024 End: 01-16-2024 ambulatory 01/16/2024 10:45 AM EDT Results Only Cardiology [address] [place] [address] 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[place] heart with stable angina pect... Cardiology Comment on above: Coronary artery dise ase of [place] artery of [place] heart with stable angina pect... Start: 01-15-2024 Hemoglobin A1c measurement HbA1C [facility] Start: 10-21-2023 End: 10-21-2023 Follow-up encounter 10/21/2023 3:30 PM EDT [facility] Pulmonary Medicine [address] [place] [address] Gloria Callahan MD [address] [place] [address] 3 Month Follow up Pulmonary Medicine Comment on above: 3 Month Follow up Start: 08-01-2023 End: 10-31-2023 CBC panel - Blood by Automated count CBC Lab Routine Surgery follow-up Expected: 08/01/2023, Expires: 10/31/2023 [facility] Work Phone: Comment on above: Expected: 08/01/2023 , Expires: 10/31/2023 Start: 08-01-2023 End: 10-31-2023 Comprehensive metabolic 2000 panel - Serum or Plasma COMP METABOLIC PANEL Lab Routine Surgery follow-up Expected: 08/01/2023, Expires: 10/31/2023 [facility] Work Phone: Comment on above: Expected: 08/01/2023 , Expires: 10/31/2023 Start: 06-24-2023 Advance Directive Discussion Advance Directive Discussion [facility] Start: 03-26-2023 End: 03-26-2023 [facility] Start: 02-22-2023 Covid-19 Vaccine ( season) Covid-19 Vaccine ( season) [facility] Start: 02-22-2023 Influenza vaccination Influenza Vacc ine (#1) [facility] Start: 2023 Advance Directive Discussion Advance Directive Discussion [facility] Start: 2023 Bone Density Screening Bone Density Screening [facility] Start: 2023 Screening for osteoporosis Bone Density Screening [facility] Start: 06-24-2022 Depression Assessment Depression Ass essment [facility] Start: 2018 RSV Vaccine (1 - 1-d ose 60+ series) RSV Vaccine (1 - 1-dose 60+ series) [facility] Start: 01-24-2008 Influenza vaccination Lung Cancer Sc reening [facility] Start: 01-24-2008 Screening for malign ant neoplasm of lung Lung Cancer Screening [facility] Start: 01-24-2008 Shingrix Vaccine (1 of 2) Hernandez grix Vaccine (1 of 2) [facility] Start: 2003 Cologuard (FIT-DNA) Cologuard (FIT-D NA) [facility] Start: 2003 Colonoscopy Colonoscopy [facility] Start: 2003 Colorectal Cancer Screening Colorectal Cancer Screening [facility] Start: [address] COLONOGRAPHY [facility] Start: 2003 Fecal Occult Blood Fecal Occult Bloo d [facility] Start: 2003 Lipid 1996 panel - S radha or Plasma Lipid Screening [facility] Start: 2003 Screening for malign ant neoplasm of colon [facility] Start: 2003 SIGMOIDOSCOPY SIGMOIDOSCOPY [facility] Start: 1998 Mammography Mammogram Screening [facility] Start: 1998 Screening for malign ant neoplasm of breast Mammogram Screening [facility] Start: 1977 Urine microalbumin profile DTaP,Tdap,Td Vaccine (1 - Tdap) [facility] Start: 01-24-1976 Annual PCP Team [employer] carl Disease Visit Annual PCP Team Chronic Disease Visit [facility] Start: 01-24-1976 BP Controlled (<130/80) BP Controlle d (<130/80) [facility] Start: 01-24-1976 Hepatitis C Screening Hepatitis C Sc hunter [facility] Start: 01-24-1976 HIV Screening HIV Screening [facility] Start: 01-24-1968 Diabetic foot examination Diabetic F oot Exam [facility] Start: 01-24-1968 Glaucoma screening Dilated Retinal E xam [facility] Start: 01-24-1968 Hepatitis B screening Urine Al bumin:Creatinine Ratio [facility] Start: 01-24-1964 Pneumococcal Vaccine : 65+ (1 - PCV) Pneumococcal Vaccine: 65+ (1 - PCV) [facility] CARDIAC REHAB II OUT PT ([place], [place]) CARDIAC REHAB [place] ([place] BIC Routine Coronary artery disease involving [place] coronary artery of [place] heart without angina pectoris Ordered: 09/03/2023 [facility] Work Phone: Comment on above: Ordered: 09/03/2023 CARDIAC REHAB II OUT PT ([place] CARDIAC REHAB [place] ([place] BIC Routine 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[place] heart with stable angina pectoris (HCC) SOB (shortness of breath) PAD (peripheral artery disease) (HCC) TIA (transient ischemic attack) Ordered: 10/10/2023 [facility] Work Phone: Comment on above: Ordered: 10/10/2023 CT Chest WO contrast CT CHEST WO IVCON Radiology Routine Lung nodule 10/10/2023 10:41 AM EDT [facility] Work Phone: End: 11-19-2024 CT Chest WO contrast CT CHEST WO IVCON Radiology Routine Lung nodule 1 Occurrences starting 10/21/2023 until 11/19/2024 [facility] Work Phone: Comment on above: 1 Occurrences starti ng 10/21/2023 until 11/19/2024 End: 02-14-2025 CT Chest WO contrast CT CHEST WO IVCON Radiology Routine 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[place] heart with stable angina pectoris (HCC) PAD (peripheral artery disease) (HCC) Primary hypertension Hyperlipidemia, unspecified hyperlipidemia type 1 Occurrences starting 01/16/2024 until 02/14/2025 [facility] Comment on above: 1 Occurrences starti ng 01/16/2024 until 02/14/2025 CT Chest WO contrast CT CHEST WO IVCON Radiology Routine 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[place] heart with stable angina pectoris (HCC) PAD (peripheral artery disease) (HCC) Primary hypertension Hyperlipidemia, unspecified hyperlipidemia type 02/18/2024 2:09 PM EDT [facility] Work Phone: End: 07-02-2024 Ct thorax w/o contrast material CT CHEST CARDIAC WO IVCON Radiology Routine Coronary artery disease involving [place] coronary artery of [place] heart with angina pectoris (HCC) PAD (peripheral artery disease) (HCC) S/P insertion of iliac artery stent Current smoker Primary hypertension Coronary angioplasty status 1 Occurrences starting 06/03/2023 until 07/02/2024 [facility] Work Phone: Comment on above: 1 Occurrences starti ng 06/03/2023 until 07/02/2024 End: 04-08-2024 ECG COMPLETE ECG COMPLETE ECG Routine Abnormal stress test 1 Occurrences starting 04/08/2023 until 04/08/2024 [facility] Work Phone: Comment on above: 1 Occurrences starti ng 04/08/2023 until 04/08/2024 End: 08-01-2024 ECG COMPLETE ECG COMPLETE ECG Routine Surgery follow-up 1 Occurrences starting 08/01/2023 until 08/01/2024 [facility] Work Phone: Comment on above: 1 Occurrences starti ng 08/01/2023 until 08/01/2024 End: 10-09-2024 ECG COMPLETE ECG COMPLETE ECG Routine 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[place] heart with stable angina pectoris (HCC) SOB (shortness of breath) PAD (peripheral artery disease) (HCC) TIA (transient ischemic attack) 1 Occurrences starting 10/10/2023 until 10/09/2024 [facility] Work Phone: Comment on above: 1 Occurrences starti ng 10/10/2023 until 10/09/2024 End: 01-15-2025 ECG COMPLETE ECG COMPLETE ECG Routine 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[place] heart with stable angina pectoris (HCC) PAD (peripheral artery disease) (HCC) Primary hypertension Hyperlipidemia, unspecified hyperlipidemia type 1 Occurrences starting 01/16/2024 until 01/15/2025 [facility] Comment on above: 1 Occurrences starti ng 01/16/2024 until 01/15/2025 End: 04-08-2025 ECG COMPLETE ECG COMPLETE ECG Routine 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) 1 Occurrences starting 04/08/2024 until 04/08/2025 [facility] Work Phone: Comment on above: 1 Occurrences starti ng 04/08/2024 until 04/08/2025 End: 04-03-2024 Echocardiography ECHO Cardiology Routine Abnormal stress test 1 Occurrences starting 04/03/2023 until 04/03/2024 [facility] Work Phone: Comment on above: 1 Occurrences starti ng 04/03/2023 until 04/03/2024 End: 07-02-2024 LUNG DIFFUSION CAPACITY (DLCO) LUNG DIFFUSION CAPACITY (DLCO) PFT Routine Coronary artery disease involving [place] coronary artery of [place] heart with angina pectoris (HCC) PAD (peripheral artery disease) ([facility]) S/P insertion of iliac artery stent Current smoker Primary hypertension Coronary angioplasty status 1 Occurrences starting 06/03/2023 until 07/02/2024 [facility] Work Phone: Comment on above: 1 Occurrences starti ng 06/03/2023 until 07/02/2024 End: 07-02-2024 SPIROMETRY BASELINE ONLY SPIROMETRY BASELINE ONLY PFT Routine Coronary artery disease involving [place] coronary artery of [place] heart with angina pectoris (HCC) PAD (peripheral artery disease) ([facility]) S/P insertion of iliac artery stent Current smoker Primary hypertension Coronary angioplasty status 1 Occurrences starting 06/03/2023 until 07/02/2024 [facility] Work Phone: Comment on above: 1 Occurrences starti ng 06/03/2023 until 07/02/2024 End: 06-03-2024 US CAROTID ARTERIES [facility] US CAROTID ARTERIES [facility] Vascular Lab Routine Coronary artery disease involving [place] coronary artery of [place] heart with angina pectoris (HCC) PAD (peripheral artery disease) ([facility]) S/P insertion of iliac artery stent Current smoker Primary hypertension Coronary angioplasty status 1 Occurrences starting 06/03/2023 until 06/03/2024 [facility] Work Phone: Comment on above: 1 Occurrences starti ng 06/03/2023 until 06/03/2024 End: 06-03-2024 US LEG VEIN MAP [facility] US LEG VEIN MAP [facility] Vascular Lab Routine Coronary artery disease involving [place] coronary artery of [place] heart with angina pectoris (HCC) PAD (peripheral artery disease) ([facility]) S/P insertion of iliac artery stent Current smoker Primary hypertension Coronary angioplasty status 1 Occurrences starting 06/03/2023 until 06/03/2024 [facility] Work Phone: Comment on above: 1 Occurrences starti ng 06/03/2023 until 06/03/2024 End: 01-02-2025 US Lower extremity artery - bilateral PVR LEG [facility] Vascular Lab Routine Atherosclerosis of [place] arteries of extremities with rest pain, bilateral legs ([facility]) 1 Occurrences starting 01/03/2024 until 01/02/2025 [facility] Work Phone: Comment on above: 1 Occurrences starti ng 01/03/2024 until 01/02/2025 End: 06-03-2024 US MAMMARY ARTERY [facility] US MAMMARY ARTERY [facility] Vascular Lab Routine Coronary artery disease involving [place] coronary artery of [place] heart with angina pectoris (HCC) PAD (peripheral artery disease) (HCC) S/P insertion of iliac artery stent Current smoker Primary hypertension Coronary angioplasty status 1 Occurrences starting 06/03/2023 until 06/03/2024 [facility] Work Phone: Comment on above: 1 Occurrences starti ng 06/03/2023 until 06/03/2024 End: 06-03-2024 US RADIAL ARTERY MAP [facility] US RADIAL ARTERY MAP [facility] Vascular Lab Routine Coronary artery disease involving [place] coronary artery of [place] heart with angina pectoris (HCC) PAD (peripheral artery disease) (HCC) S/P insertion of iliac artery stent Current smoker Primary hypertension Coronary angioplasty status 1 Occurrences starting 06/03/2023 until 06/03/2024 [facility] Work Phone: Comment on above: 1 Occurrences starti ng 06/03/2023 until 06/03/2024 End: 08-30-2024 XR Chest 2 Views XR CHEST 2V FRONTAL/LAT Radiology Routine Surgery follow-up 1 Occurrences starting 08/01/2023 until 08/30/2024 [facility] Work Phone: Comment on above: 1 Occurrences starti ng 08/01/2023 until 08/30/2024 [facility] Immunizations Immunization Date Immunization Notes Care Provider Berta riley 05-29-2023 influenza virus vacc ine, unspecified formulation Nano Nguyen MD Work Phone: [facility] 04-10-2022 influenza, injectabl e, quadrivalent, contains preservative Nano Nguyen Work Phone: [facility] DO Work Phone: 04-10-2022 influenza virus vacc ine, unspecified formulation Shanice Larsen MD Work Phone: [facility] 05-24-2021 [place] COVID-19 Vac cine 0.5 ML Intramuscular Suspension Nano Nguyen Work Phone: [facility] 11-11-2020 [place] COVID-19 Vac cine 0.5 ML Intramuscular Suspension Nano Titus Honelda Work Phone: [facility] 08-13-2020 zoster vaccine recombinant Nano M Hoy Work Phone: [facility] [facility] DO Work Phone: 06-11-2020 zoster vaccine recombinant Nano M Hoy Work Phone: [facility] [facility] DO Work Phone: Payers Date Payer Category Payer Unknown [id number] 2023 [place] [id number] 2023-Present [phone] [address] [place] [address] Medicaid [id number] 2023 Private Health Insurance [id number] 2023 Self-pay 2023 Medicare [id number] 2023 Medicare [id number] 1959 Unknown [id number] 1958 Unknown [id number] 2.16.840.1.911712.3.579.2. 356 1958 Unknown [id number] 2.16.840.1.735906.3.579.2. 593 1958 Unknown [id number] 2.16.840.1.420577.3.579.2. 593 1958 Unknown [id number] 2.16.840.1.312339.3.579.2. 593 1958 Unknown [id number] 2.16.840.1.519657.3.579.2. 593 1958 Unknown [id number] 2.16.840.1.535853.3.579.2. 593 1958 Unknown [id number] 2.16.840.1.215881.3.579.2. 593 1958 Unknown [id number] 2.16.840.1.232472.3.579.2. 593 1958 Unknown [id number] 2.16.840.1.115383.3.579.2. 593 1958 Unknown [id number] 2.16840.1.885378.3.579.2. 593 1958 Unknown [id number] 2.16.840.1.663658.3.579.2. 593 1958 Unknown [id number] 2.16840.1.517760.3.579.2. 593 1958 Unknown [id number] 2.16.840.1.437916.3.579.2. 593 1958 Unknown [id number] 2.16840.1.333007.3.579.2. 593 1958 Unknown [id number] 2.16.840.1.199917.3.579.2. 1286 1958 Unknown [id number] 2.16.840.1.875531.3.579.2. 1286 1958 Unknown [id number] 2.16840.1.882742.3.579.2. 1286 1958 Unknown [id number] 2.16.840.1.957770.3.579.2. 1286 1958 Unknown [id number] 2.16.840.1.335004.3.579.2. 1259 Private Health Insurance [id number] Unknown [facility] [employer] Unknown [id number] 2.16.840.1.612528.3.579.2. 531 Unknown [id number] 2.16.840.1.108992.3.579.2. 531 Social History Date Type Detail Facility Start: 04-03-2023 End: 01-28-2024 Social alcohol use Social alcohol use -[facility] DO Work Phone: Comment on above: gummies, and pot; Start: 03-20-2023 End: 03-26-2023 Tobacco smoking status AZIS Smoker (finding) [facility] Start: 1960 Sex Assigned At Female F [facility] Start: 04-03-2023 End: 01-28-2024 Sex Assigned At [facility] [employer] Other Start: 04-03-2023 Tobacco smoking status [facility] Smokes tobacco daily [facility] History of tobacco use Cigarette Smoker [facility] Start: 04-03-2023 Tobacco use and exposure Smokeless tobacco non-user [facility] Start: 04-03-2023 End: 01-28-2024 Alcohol intake Current drinker of alcohol (finding) [facility] National Score (1-100), lower number is lower risk 91 [facility] Start: 1960 Sex Assigned At Not on file [facility] Medical Equipment Procedure Code Equipment Code Equipment Original Text Equipment Identifier Dates Towner Thk1.65mm P tfe 4x.5in Cardiovascular Sterile - [id number] Start: 07-29-2023 Goals Date Patient Goal Desired Activity /State Personal health goal Personal health goal Clinical Notes 05-10-2022 to 04-07-2024 Shanice Larsen MD - 04/07/2024 8:30 AM Christel Thao - 02/26/2024 10:09 AM EDTTelephone Encounter - Hilary Blackman RN - 02/25/2024 6:02 PM Murtaza Ramírez RT(R) - 02/18/2024 2:30 PM EDT Note Date & Type Note Facility 04-07-2024 History of Presen t illness Narrative Heart[facility] [place] Department of Cardiovascular Medicine VIRTUAL VIDEO VISIT ESTABLISHED OUTPATIENT VISIT SERVICE DATE: 04/07/2024 Patient: Elizabeth Quezada SERVICE TIME: 8:59 AM : 1960 This is a virtual video visit. It required patient-provider interaction for the medical decision making as documented below. Elizabeth Quezada has consented to this video encounter. I have communicated my name and active licensure. The patient's identity and physical location were verified at the time of this visit. Either the patient or their legal direct sales representative has been informed of the risks and benefits of -- and alternatives to -- treatment through a remote evaluation and consents to proceed with the evaluation remotely. CHIEF COMPLAINT Follow up of CT scan HISTORY OF PRESENT ILLNESS Ms. Quezada is a 64 year old female who presents today for a cardiovascular medicine follow-up visit. She has a history of severe PAD, CAD s/p CABG x4 (GURROLA->LAD, rSVG->OM1, rSVG->RCA->PDA) on 07/29/[address] Rajan, COPD, Type II diabetes. She was last seen 3 months ago. She complains of of clicking of her sternal cartilage, occasionally painful. Able to do her normal activities. PAST MEDICAL HISTORY Diagnosis Date Atherosclerosis of [place] arteries of extremity with intermittent claudication (HCC) [...] bilateral kissing iliac stents WALANT PROCEDURE Left FAMILY HISTORY Problem Relation Age of Onset Heart Attack Mother Hypertension Mother Hyperlipidemia Mother Kidney Disease Mother Heart Attack Father Hyperlipidemia Father Diabetes Father Aneurysm No Family History Social History Tobacco Use Smoking status: Every Day Current packs/day: 1.00 Average packs/day: 1 pack/day for 40.0 years (40.0 ttl pk-yrs) Types: Cigarettes Smokeless tobacco: Never Vaping Use Vaping status: Never Used Substance Use Topics Alcohol use: Yes Alcohol/week: 4.0 standard drinks of alcohol Types: 4 Standard drinks or equivalent per week Drug use: Yes Types: Marijuana ALLERGIES Allergen Reactions Tetracycline Unknown, GI Upset Januvia [Sitaglipti* Unknown Miconazole Itching, Swelling Rosuvastatin Unknown Allerg Xt,D.Farinae* Itching Cat Hair Standardiz* Itching sneezing House Dust Itching CURRENT MEDICATIONS oxybutynin (DITROPAN) 5 mg tablet two times [...] two times a day. REVIEW OF SYSTEMS: PAIN ASSESSMENT: Negative for pain, history of chronic pain, or current treatment for a chronic pain condition. CT chest 02/19/24 Heart, pericardium, and thoracic vessels: CABG changes are noted. Severe multivessel [place] coronary artery calcifications noted. Atherosclerotic calcifications of the aorta and its branches noted including aortic root. Normal caliber ascending aorta and pulmonary trunk noted. Normal heart size noted. No pericardial effusion. Focal areas of low-attenuation involving right ventricular myocardium, and along interventricular septum, inferior myocardium may be associated with ischemic injury. Borderline prominence of the interatrial septal fat. Stable esophagus with some endoluminal gas. Bones and soft tissues: Chest wall soft tissues are unremarkable. On bone window images, degenerative changes of the spine noted. Median sternotomy changes. Delayed fusion of sternal segments presumed. Healed posttraumatic deformities of multiple ribs, visible back to 06/14/2023, (probably acute at that time). ASSESSMENT: Elizabeth Quezada is a 64 year old female with severe peripheral artery disease s/p iliac stenting (rest claudication and foot ulcers), multivessel coronary artery disease (severe LAD disease, subtotaled circ and occluded distal PDA which fills from collaterals), current smoker, COPD and type II diabetic who presents today for cardiovascular medicine follow up. Recently s/p CABG x4 07/29/[address] Suarez. Her sternal surgical site has likely not fully healed together, and is very bothersome for the patient. Occasionally painful. Will forward message to Dr. Rajan. Patient states her vascular surgeon will not operate on her until her chest is fixed. I personally spent 20 minutes in total time involved in the management and care of this patient. Scribe Attestation: By signing my name below, Aidan Hillman, attest that this documentation has been prepared under the direction and in the presence of Shanice Larsen MD Electronically Signed:payton Leos, April 07, 2024 8:57 AM Provider Attestation: Shanice Hillman MD, personally performed the services described in this documentation. All medical record entries made by the scribe were at my direction and in my presence. I have reviewed the chart and discharge instructions (if applicable) and agree that the record reflects my personal performance and is accurate and complete. Shanice Larsen MD April 08, 2024 8:16 PM documented in this encounter [facility] 04-07-2024 Note [facility] 02-26-2024 History of Presen t illness Narrative Follow Up Diagnosis: Lung Nodule Recommendation: CT Scan Follow up Date: 02/15/2025 Follow-Up Scheduled: No Pulmonary Follow-Up Type: Lung Nodule Surveillance Enrolled in Lung Nodule program: Yes Lung Nodule Program Location: [facility] documented in this encounter [facility] 02-26-2024 Note [facility] 02-25-2024 Telephone encounter Note 02/25/[address] Eric carter. Hilary Blackman RN [facility] 02-25-2024 Miscellaneous Notes 02/25/[address] Eric carter. Hilary Blackman RN [facility] documented in this encounter [facility] 02-25-2024 Telephone encounter Note 02/25/24: Dr. Callahan requests patient be called with results of Ct Chest done 02/18/24: CT chest reviewed. Rt lung nodule opacity unchanged since 05/2023. Recommend continued monitoring -repeat CT imaging in 1 year. Called patient & LVM and sent MyC. Hilary Blackman RN [facility] 02-25-2024 Miscellaneous Notes 02/25/24: Dr. Callahan requests patient be called with results of Ct Chest done 02/18/24: CT chest reviewed. Rt lung nodule opacity unchanged since 05/2023. Recommend continued monitoring -repeat CT imaging in 1 year. Called patient & LVM and sent MyC. Hilary Blackman RN Res[facility] [place] [facility] documented in this encounter [facility] 02-18-2024 History of Presen t illness Narrative [...] PATIENT PRESENTS WITH AN IMPLANTABLE OR ATTACHED CONTINUING EDUCATION DEAN: No RADIOLOGY DEPARTMENT: CT; Exam(s) Completed: Chest PERIPHERAL IV DATA: Not applicable SIGNED BY: RT Mitch(R) February 18, 2024 2:05 PM documented in this encounter [facility] 02-18-2024 Note [facility] 02-04-2024 History of Presen t illness Narrative QOL Call Tracking Documentation Follow-Up Type: Phone Call Call Attempt: 1st Attempt Call Status: Complete documented in this encounter [facility] 02-04-2024 Note HNO ID: [id number] Author: ?, ?, ? Service: ? Author Type: ? Type: Progress Notes Filed: 02/04/2024 12:53 Note Text: QOL Call Tracking Documentation Follow-Up Type: Phone Call Call Attempt: 1st Attempt Call Status: Complete [facility] 01-28-2024 Note [facility] 01-28-2024 History of Presen t illness Narrative Images from the original note were not included. [facility] Thor[facility] [place] DEPARTMENT OF VASCULAR SURGERY OUTPATIENT VISIT DATE [...] spirits. PAST MEDICAL HISTORY 06/14/2023: Atherosclerosis of [place] arteries of extremity with intermittent claudication (HCC) [...] Obesity No date: PAD (peripheral artery disease) ([facility]) No date: Visual impairment PAST SURGICAL HISTORY [...] TIME: 12:33 PM documented in this encounter [facility] 01-16-2024 History of Presen t illness Narrative Images from the original note were not included. Heart [facility] V[facility] [place] Arlette Goldstein Department of Cardiovascular Medicine SECTION OF CLINICAL CARDIOLOGY OUTPATIENT VISIT DATE January 16, 2024 OUTPATIENT VISIT TYPE ESTABLISHED PRIMARY CARE PHYSICIAN: Nano Nguyen [facility] [place] [address] CHIEF COMPLAINT: Cv management HISTORY OF PRESENT [...] PAST MEDICAL HISTORY Diagnosis Date Atherosclerosis of [place] arteries of extremity with intermittent claudication (HCC) 06/14/2023 CAD (coronary artery disease) 06/14/2023 Carpal tunnel syndrome Cataract Coronary atherosclerosis Dental disease Depression Diabetes mellitus type 2 with peripheral artery disease (HCC) 06/14/2023 Essential hypertension 06/14/2023 Family hx-malignancy Former smoker Fractures Generalized anxiety disorder Hematoma HTN (hypertension) Injury of back Lung nodules Obesity PAD (peripheral artery disease) ([facility]) Visual impairment PAST SURGICAL HISTORY Procedure Laterality [...] INFORMATION: Shanice Larsen MD January 16, 2024 [address] [place] [address] Scrlaura Attestation: By signing my name below, I, [...] 2024 12:17 PM documented in this encounter [facility] 01-16-2024 Note [facility] 01-01-2024 Telephone encounter Note Reason for call: Ms Quezada called and she would like to schedule an appointment with DR Qiana Neves and cell number [phone] DiagnosisAtherosclerosis of [place] arteries of extremities with rest pain, bilateral legs Kind Regards Dunia [facility] 01-01-2024 Miscellaneous Notes Reason for call: Ms Quezada called and she would like to schedule an appointment with DR Qiana Neves and cell number [phone] DiagnosisAtherosclerosis of [place] arteries of extremities with rest pain, bilateral legs Kind Regards Dunia documented in this encounter [facility] 10-30-2023 Note [facility] 10-30-2023 History of Presen t illness Narrative QOL Call Tracking Documentation Follow-Up Type: Phone Call Call Attempt: 1st Attempt Call Status: Patient will complete in MyChart documented in this encounter [facility] 10-30-2023 Telephone encounter Note Attempted to call patient, no answer. Left voicemail asking patient to check mychart as I will send there. Mary Franks RN [facility] 10-30-2023 Miscellaneous Notes Attempted to call patient, no answer. Left voicemail asking patient to check mychart as I will send there. Mary Franks RN Per dr larsen, yes can be on both. Suzie does not see a reason to separate but can separate days of the week if want. Can take motrin intermittently but not regular doses. October 25, 2023 Patient Contact Number: [phone] (home) Patient last seen within the last [...] Yes Lizzeth Kong documented in this encounter [facility] 10-29-2023 Telephone encounter Note Per dr larsen, yes can be on both. Suzie does not see a reason to separate but can separate days of the week if want. Can take motrin intermittently but not regular doses. [facility] 10-25-2023 Telephone encounter Note October 25, 2023 Patient Contact Number: [phone] (home) Patient last seen within the last [...] next three business days. Yes Lizzeth Kong [facility] 10-24-2023 Note [facility] 10-24-2023 History of Presen t illness Narrative Follow Up Diagnosis: Lung Nodule Recommendation: CT Scan Follow up Date: 04/16/2024 Follow-Up Scheduled: Yes Pulmonary Follow-Up Type: Lung Nodule Surveillance Enrolled in Lung Nodule program: Yes Lung Nodule Program Location: [facility] documented in this encounter [facility] 10-21-2023 Evaluation note Diagnosis Lung nodule- Primary [...] with smoking cessation documented in this encounter [facility]04[facility] History of Present illness Narrative* Gloria Callahan MD - 10/21/2023 3:52 PM EDT Images from the original note were not included. [facility] INCIDENTAL LUNG NODULE PROGRAM ([facility] Follow-Up) Assessment / Plan 63 year old [...] Lung Nodule Surveillance Lung Nodule Program Location: [facility] Medical Decision Making: Problems: Low: Stable chronic [...] visit. Either the patient or their legal direct sales representative has been informed of the risks [...] PAST MEDICAL HISTORY Diagnosis Date Atherosclerosis of [place] arteries of extremity with intermittent claudication (HCC) [...] daily. evolocumab 140 mg/mL subcutaneous pen injector (REPATHA [...] Upset Januvia [Sitaglipti* Unknown Rosuvastatin Unknown Allerg Xt,Vanda* Itching Cat Hair Standardiz* Itching sneezing House [...] radiographs. Last CT/CTA Chest/Lungs CT CHEST WO IVCON Exam End: 10/10/2023 10:41 AM (Final result) Narrative: * * *Final Report* * * DATE OF EXAM: Oct 10 2023 10:41AM [facility] - CT CHEST WO IVCON / [...] is normal in caliber. Moderate to severe [place] coronary artery atherosclerotic calcifications are present, however, [...] given small size. 4. No thoracic lymphadenopathy. Insurance Adviser: [employer] Transcribe Date/Time: Oct 11 2023 9:48A Dictated by : ANDREA HOWARD MD This examination was interpreted and the report reviewed and electronically signed by: ANDREA HOWARD MD on Oct 11 2023 10:08AM EST Last Spirometry SPIROMETRY BASELINE ONLY Collected: 06/14/2023 12:04 PM (Final result) Narrative: [facility] [address] [place] [address] Test Date: 2023-06-14 Pat Name: ELIZABETH QUEZADA Department: Room: Gender: Female Ict Help Desk Technician: : 1960 Requested By: Order Number: [id number] Reading MD: Stephanie Jain MD Interpretive Statements [...] 0:29:16 EST by Stephanie Jain MD ID: [id number] Name: ELIZABETH QUEZADA Race: White Ht: 63.78 [...] 2.82 FEF50/FIF50 0.58 90-100 FIVC (L) 2.34 YYN66-51 (L/sec) 1.08 0.99 2.04 3.49 53 Time [...] repeatability standards for DLCO met.//NF 6MWT: Julio Smalls RRT 07/02/2023 4:46 PM Signed RESPIRATORY THERAPY SIX [...] MD Pulmonary & Critical Care Medicine Respiratory [place] October 21, 2023 3:55 PM documented in [facility] encounter[facility] Telephone encounter Note * Telephone Encounter - Shanta Shook RN - 10/18/2023 2:12 PM EDT Ambulatory Pharmacy Prior Authorization Note Provider Intervention Required?: No- Pharmacy completed on your behalf. Rx Plan: [facility]: Repatha SureClick 140MG/ML auto-injectors Cover My Meds Aguayo: [id number] Determination: Approved Prior Authorization/Case #: n/a Prior [...] refills. Prescriptions will now be processed through [facility] for determination of next steps. For questions relating to this submission, please contact [facility] at [phone] [facility] Work Phone: 1(404) 238-716304-26-2024 Miscellaneous Notes* Telephone Encounter - Shanta Shook RN - 10/18/2023 2:12 PM EDT Ambulatory Pharmacy Prior Authorization Note Provider Intervention Required?: No- Pharmacy completed on your behalf. Rx Plan: [facility]: Repatha SureClick 140MG/ML auto-injectors Cover My Meds Gauayo: [id number] Determination: Approved Prior Authorization/Case #: n/a Prior [...] refills. Prescriptions will now be processed through [facility] for determination of next steps. For questions relating to this submission, please contact [facility] at [phone] documented in this encounterProm[facility]04-[facility]-2024 Telephone encounter Note * Telephone Encounter - Lizzeth Kong - 10/17/2023 2:12 PM EDT ADMIN UPLOADED OUTSIDE CARDIAC IMAGES TO [facility] CTA HEAD/NECK CT ANGIO HEAD CT ANGIO NECK CA ECHO DOPPLER Lizzeth Kong October 17, 2023 2:16 PM [facility]04-25-2024 Miscellaneous Notes* Telephone Encounter - Lizzeth Kong - 10/17/2023 2:12 PM EDT ADMIN UPLOADED OUTSIDE CARDIAC IMAGES TO [facility] CTA HEAD/NECK CT ANGIO HEAD CT ANGIO NECK CA ECHO DOPPLER Lizzeth Kong October 17, 2023 2:16 PM documented in this encounterProm[facility]04-[facility]-2024 Telephone encounter Note * Telephone Encounter - Lizzeth Kong - 10/17/2023 1:36 PM EDT ADMIN [facility] Lizzeth Kong October 17, 2023 1:37 PM [facility]04-25-2024 Miscellaneous Notes* Telephone Encounter - Lizzeth Kong - 10/17/2023 1:36 PM EDT ADMIN UPLOADED OUTSIDE CARDIAC RECORDS TO [facility] ECHO REPORT Lizzeth Kong October 17, 2023 1:37 PM documented in this encounterPromedica [facility]04-18-2024 History of Present illness Narrative* Shanice Larsen MD - 10/10/2023 12:30 PM EDT Images from the original note were not included. [facility] [place] Arlette Goldsteni Department of Cardiovascular Medicine SECTION OF CLINICAL CARDIOLOGY OUTPATIENT VISIT DATE October 10, 2023 OUTPATIENT VISIT TYPE ESTABLISHED PRIMARY CARE PHYSICIAN: Nano Nguyen [address] [place] [address] CHIEF COMPLAINT: CV management HISTORY OF PRESENT [...] PAST MEDICAL HISTORY Diagnosis Date Atherosclerosis of [place] arteries of extremity with intermittent claudication (HCC) [...] INFORMATION: Shanice Larsen MD October 10, 2023 [address] [place] [address] Scribe Attestation: By signing my name below, Aidan Hillman, attest that this documentation has been prepared under the direction and in the presence of Shanice Larsen MD. Electronically Signed:payton Leos, October 10, 2023 8:06 AM Provider Attestation: I, Shanice Larsen MD, personally performed the services described in this documentation. All medical record entries made by the simaibsarita were at my direction and in my presence. I have reviewed the chart and discharge instructions (if applicable) and agree that the record reflects my personal performance and is accurate and complete. Shanice Larsen MD October 11, 2023 6:00 PM documented in this encounterPromedica [facility]04-18-20[facility] History of Present illness Narrative* Yojana Liang [...] PATIENT PRESENTS WITH AN IMPLANTABLE OR ATTACHED CONTINUING EDUCATION DEAN: No RADIOLOGY DEPARTMENT: CT; Exam(s) Completed: Chest PERIPHERAL IV DATA: Not applicable SIGNED BY: RT Sepideh(R) October 10, 2023 10:36 AM documented in this encounterPromedica Flower Hospital04-01-2024 Miscellaneous Notes* Telephone Encounter - Anna Richmond - 09/23/2023 11:34 AM EDT Yeimy from [facility] - Dr. Luciano called and wanted to know how long should it be for the patient to be cleared after surgery for the patient to get her teeth cleaned. It's been 8 weeks and she thought it would be longer than that. Yeimy can be reached at [phone] documented in this encounterPromedica F[facility] Hospital03-12-2024 History of Present illness Narrative* Anna Perea RN - 09/03/2023 12:14 PM EDT QOL Call Tracking Documentation Follow-Up Type: Phone Call Call Attempt: 1st Attempt Call Status: Patient will complete in MyChart documented in this encounterPromedica Flower Hospital03-12-2024 [facility]03-01-2024 Miscellaneous Notes* Telephone Encounter - Dot Stern - 08/23/2023 9:07 AM EST Reason for call: Pt called and she would like to reschedule her appt on 02 september to 08 of Septemberplease. Home and cell number: [phone] Diagnosis: HOSP FOLLOW UP-DISCUSS TIMING OF LOVE FEM ENDARTS NO TESTING NEEDED Kind RegardsDot documented in this encounterPromedica [facility] Hospital02-15-2024 Miscellaneous Notes* Telephone Encounter - Moriah Morris [...] . Moriah Morris RN documented in this encounterPromedica Flower Hospital02-14-2024 Instructions* Patient Instructions* Dania Cruz APRN.CNP - 08/07/2023 11:10 AM EST Follow up with PCP next week with repeat cbc and cmp to monitor trends. Follow up with senior web applications developer in 4-6 weeks with consideration of repeat echo. No further refills unless specified by local providers. documented in this encounterPromedica Flower Hospital02-14-2024 History of Present illness Narrative* Dania Cruz APRN.CNP - 08/07/2023 10:30 AM EST Images from the original note were not included. [facility] [place] Arlette Goldstein Department of Cardiovascular Medicine DEPARTMENT [...] PAST MEDICAL HISTORY Diagnosis Date Atherosclerosis of [place] arteries of extremity with intermittent claudication (HCC) 06/14/2023 CAD (coronary artery disease) 06/14/2023 Carpal tunnel syndrome Cataract Coronary atherosclerosis Dental disease Depression Diabetes mellitus type 2 with peripheral artery disease (HCC) 06/14/2023 Essential hypertension 06/14/2023 Family hx-malignancy Former smoker Fractures Generalized anxiety disorder Hematoma HTN (hypertension) Injury of back Lung nodules Obesity PAD (peripheral artery disease) ([facility]) Visual impairment PAST SURGICAL HISTORY Procedure Laterality [...] clean, dry and intact Wound: NA SV [place] sites: Location: Right LE, mid, distal, and ankle, healing, and clean, dry and intact with shelby. Edematous noted. Procedures: every other Shelby removed from saphenous vein sites without difficulty. Sutures removed from chest tube sites without difficulty. [facility] to remove remaining stable IMPRESSION & PLAN: [...] cmp to monitor trends Follow up with senior web applications developer in 4-6 weeks. May need more diuresing [...] prophylaxis reviewed Discussed wound care Dania Cruz APRN.LIFE INSURANCE SALES AGENT documented in this encounterPromedica Flower Hospital02-14-2024 [facility] History of Present illness Narrative* Shannan Hernandez RT(Alyssa) - 08/07/2023 9:45 AM EST Radiology Service [...] PATIENT PRESENTS WITH AN IMPLANTABLE OR ATTACHED CONTINUING EDUCATION DEAN: No RADIOLOGY DEPARTMENT: General X-ray: Exam(s) Completed: Chest X-Ray PERIPHERAL IV DATA: Not applicable SIGNED BY: RT Enrike(Alyssa) August 07, 2023 10:07 AM documented in this encounterPromedica Flower Hospital02-14-2024 [facility]-13-2024 Miscellaneous Notes* Telephone Encounter - Kevin [...] given. Kevin Reardon RN documented in this encounterPromedica Flower Hospital02-09-2024 NoteC[facility]02-09-2024 NoteC[facility]02-[facility]-2024 NoteC[facility]02-08-2024 NoteC[facility]02-08-2024 Note [facility]02-07-2024 NoteC[facility]02-06-2024 NoteC[facility]02-05-2024 NoteC[facility] 07-29-2023 NoteC[facility]02-05-2024 NoteC[facility]01-31-2024 NoteHNO ID: [id number] Author: ?, ?, ? Service: ? Author Type: ? Type: Progress Notes Filed: 07/24/2023 11:11 Note Text: QOL Call Tracking Documentation Follow-Up Type: Phone Call Call Attempt: 1st Attempt Call Status: Left MessageCincinnati [facility] Hospital01-24-2024 NoteC[facility]01-24-2024 NoteC[facility]01-24-2024 Note [facility]01-15-2024 NoteC[facility]01-09-2024 NoteC[facility]01-09-2024 NoteC[facility] 07-02-2023 NoteC[facility]01-09-2024 NoteC[facility]01-09-2024 NoteC[facility]01-09-2024 NoteC[facility]01-04-2024 NoteC[facility]12-29-2023 NoteHNO ID: [id number] Author: Christel De La Fuente Service: ? Author Type: ? Type: Progress Notes Filed: 06/26/2023 2:37 PM Note Text: Sent to Scheduling Patient scheduled 07/08/23[facility]12[facility]12-22-2023 NoteC[facility]12-22-2023 Note [facility]12-22-2023 NoteHNO ID: [id number] Author: Julio Smalls RRT Service: ? Author Type: Registered Resp Therapist Type: Progress Notes Filed: 06/14/2023 12:24 PM Note Text: PULM FUNCTION SMARTBLOCK: Provider: Willem Suarez MD Spirometry: 1 DLCO: [facility] 06-03-2023 Miscellaneous Notes* Telephone Encounter - Robbin Sanford - 06/03/2023 4:34 PM EST CALLED AND CONFIRMED APPTS W/MRS. QUEZADA VIA PHONE MAILED REMINDER FED EX NEXT DAY 06-03-23 AW #[id number] * Telephone Encounter - Ghazala Malave RN - 05/30/2023 10:08 AM EST eval only kris vascular surgery, testing, Dr. Suarez *Please call with date internal referral diagnosis: CAD history: PAD s/p iliac stents November 2022, current smoker, DM2, HTN blood thinners: asa 81, plavix, xarelto, trulicity, jardiance, ibuprofen documented in this encounterPromedica Flower Hospital12-07-2023 Miscellaneous Notes* Telephone Encounter - Radha Brady - 05/30/2023 10:38 AM EST IN documented in this encounterPromedica Flower Hospital12-05-2023 [facility]12-05-2023 History of Present illness Narrative* Shanice Larsen MD - 05/28/2023 1:37 PM EST Images from the original note were not included. [facility], V[facility] Thor[facility] [place] Arlette Goldstein Department of Cardiovascular Medicine SECTION OF CLINICAL CARDIOLOGY OUTPATIENT VISIT DATE May 28, 2023 OUTPATIENT VISIT TYPE ESTABLISHED PRIMARY CARE PHYSICIAN: To use this Smartlink, specify the provider ID whose address you want to display, e.g., .PROVADDR[1(where 1 is the provider ID). REFERRING PHYSICIAN: Shanice Larsen [address] [facility] [address] CHIEF COMPLAINT: Shortness of breath HISTORY OF PRESENT ILLNESS: Ms. Quezada is a 63 year old female who presents today for a cardiovascular medicine follow-up visit. I last saw her in Mar . She was having severe nausea and vomiting at the time. She was worked up by her director of online education and no cause was found. She is [...] Larsen MD CONTACT INFORMATION: documented in this encounterPromedica Flower Hospital11-20-2023 [facility]11-[facility]-2023 History of Present illness Narrative* Shanice Larsen MD - 05/13/2023 3:10 PM EST [facility] [place] Department of Cardiovascular Medicine VIRTUAL VIDEO VISIT [...] visit. Either the patient or their legal direct sales representative has been informed of the risks [...] 13, 2023 3:10 PM documented in this encounterPromedica Flower Hospital11-09-2023 NoteC[facility]11-03-2023 NoteC[facility]11-03-2023 History of Present illness Narrative* Shanice Larsen [...] high risk-Shanice Larsen MD documented in this encounterPromedica Flower Hospital10-11-2023 Instructions* Patient Instructions* Serena Smith - 04/03/2023 9:34 AM EDT Complete blood work today Complete Echo documented in this encounterPromedica Flower Hospital10-11-2023 History of Present illness Narrative* Shanice Larsen MD - 04/03/2023 7:45 AM EDT Images from the original note were not included. [facility] [place] Arlette Goldstein Department of Cardiovascular Medicine SECTION [...] is a 63 year old female from [place], [place] here today for cardiovascular evaluation related [...] 03, 2023 10:10 AM documented in this encounterPromedica Flower Hospital10-03-2023 Hospital Discharge instructions Additional Instructions DISCHARGE INSTRUCTIONS FOR CARDIAC SHELVER PHONE NUMBER OF YOUR PHYSICIAN: [phone] PROCEDURE: Heart Cath The following instructions have [...] cold, numb, blue or white, call the senior web applications developer immediately. 4. ACTIVITY: You are advised to [...] bottle, follow the instructions on the bottle. [facility] is not responsible for incorrect prescription information provided by the patient during their visit. Do not stop your medications without consulting your health care provider. Please take the list with you to your next doctor's appointment.[facility] Work Phone: 1(880) 345-381409-27-2023 Evaluation note* Encounter Date Diagnosis Assessment Notes Treatment Notes Treatment Clinical Notes Feb, Shortness of breath (ICD-10 - R06.02) Feb, Abnormal stress test (ICD-10 - R94.39) 63-year-old female with past medical history significant for peripheral vascular disease status post bilateral iliac kissing stents with now worsening intermittent claudication. She is planned for an aortobifemoral bypass surgery at [facility] on March 29, 2023 and presents for [...] Hyperlipidemia, unspecified hyperlipidemia type (ICD-10 - E78.5) [employer] Other 11-17-2022 NotePROCEDURE: XR FOOT RT MIN [...] Electronically authenticated by: NISA EDWARDS Date: 2022-05-10 13:23[facility] complaint Narrative - Abiodun QUEZADA is being seen for a consultation for dizziness, fatigue and palpitations.-[facility]- [place] [address] DO Work Phone: Evaluation noteNo assessment information available [facility] Work Phone: evaluation noteNo InformationNort Rank & Style Other evaluation note* Diagnosis Abnormal stress test- Primary Other nonspecific abnormal cardiovascular system function study [facility]* Diagnosis Abnormal stress test- Primary Other nonspecific abnormal cardiovascular system function study documented in this encounter [facility] note* Diagnosis Coronary artery disease involving [place] coronary artery without angina pectoris, unspecified whether [place] or transplanted heart- Primary documented in this encounter [facility] note* Diagnosis Coronary artery disease involving [place] coronary artery of [place] heart without angina pectoris- Primary Preop cardiovascular exam Pre-operative cardiovascular examination Morbid obesity (HCC) Morbid obesity documented [facility] this encounter [facility]* Diagnosis SOB (shortness of breath)- Primary Shortness of breath Coronary artery disease involving [place] coronary artery of [place] heart without angina pectoris PAD (peripheral artery disease) (HCC) Peripheral vascular disease, unspecified documented in this encounter [facility] note* Diagnosis Coronary artery disease involving [place] coronary artery of [place] heart with angina pectoris (HCC)- Primary PAD (peripheral artery disease) (HCC) Peripheral vascular disease, unspecified S/P insertion of iliac artery stent Other postprocedural status Current smoker Tobacco use disorder Primary hypertension Unspecified essential hypertension Coronary angioplasty status Postsurgical percutaneous transluminal coronary angioplasty status [facility] follow-up- Primary Follow-up examination, following unspecified surgery [facility] Diagnosis S/P CABG (coronary artery bypass graft)- Primary Postsurgical aortocoronary bypass status PVD (peripheral vascular disease) (HCC) Peripheral vascular disease, unspecified [facility] Surgery follow-up Follow-up examination, following unspecified surgery documented [facility]* Diagnosis Abnormal finding of diagnostic imaging- Primary Other nonspecific (abnormal) findings on radiological and other examinations of body structure documented in this encounter [facility]* Diagnosis Coronary artery disease involving [place] coronary artery of [place] heart without angina pectoris- Primary documented in this encounter [facility]* Diagnosis Lung nodule Solitary pulmonary nodule documented in this encounter [facility]* Diagnosis 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[place] heart with stable angina pectoris (HCC)- Primary SOB (shortness of breath) Shortness of breath PAD (peripheral artery disease) ([facility]) Peripheral vascular disease, unspecified TIA (transient ischemic attack) Unspecified transient cerebral ischemia documented [facility] this encounter [facility]* Diagnosis Atherosclerosis of [place] arteries of extremities with rest pain, bilateral legs (HCC)- Primary documented in this encounter [facility]* Diagnosis 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[place] heart with stable angina pectoris (HCC)- Primary PAD (peripheral artery disease) (HCC) Peripheral vascular disease, unspecified Primary hypertension Unspecified essential hypertension Hyperlipidemia, unspecified hyperlipidemia type [facility] Diagnosis Atherosclerosis of [place] artery of both lower extremities with intermittent claudication (HCC)- Primary Atherosclerosis of [place] arteries of the extremities with intermittent claudication [facility] Diagnosis Lung nodule- Primary Solitary pulmonary nodule Lung nodule- Primary Solitary pulmonary nodule 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[place] heart with stable angina pectoris (HCC) PAD (peripheral artery disease) (HCC) Peripheral vascular disease, unspecified Primary hypertension Unspecified essential hypertension Hyperlipidemia, unspecified hyperlipidemia type [facility] Lung nodule- Primary Solitary pulmonary nodule Lung nodule- Primary Solitary pulmonary nodule Pathological fracture of sternum with malunion- Primary 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[place] heart with stable angina pectoris (HCC) documented in this encounter [facility] general Narrative - Reported* Type Description Date Medical History aortic stenosis Medical History diabetes type 2 Medical History blood clot Medical History hypertension Medical History hyperlipidemia Medical History peripheral vascular disease Surgical History carpal tunnel Surgical History trigger finger Surgical History tubal ligation Surgical History bilateral kissing stents Surgical History left thigh evacuation hematoma Hospitalization History blood clot after cardiac stents [employer] Other History of Present illness Narrative* Patient [...] change and see us henceforth as needed. -[facility] Heart-Chad Reyes DO Work Phone: Reason for referral (narrative)* Outpatient Procedure (Routine) - Authorized Specialty Diagnoses / Procedures Referred By Contac t Referred [facility] Diagnoses Abnormal stress test Procedures ECHO ECHO TTHRC R-T 2D W/WOM-MODE COMPL SPEC&COLR D Shanice Larsen MD [address] [id number] [place] [phone] Referral ID Status Reason Start Date Expiration Date Visits Requested Visits Authorized [id number] Authorized Auto-Generat ed Referral 3 04/02/2024 1 1 [facility] for referral (narrative)* Outpatient Procedure (Routine) - Authorized Specialty Diagnoses / Procedures Referred By Contac t Referred To Contact [facility] [place] Diagnoses Abnormal stress test Procedures ECG COMPLETE ECG ROUTINE ECG W/LEAST 12 LDS W/I&R Pamela Laws APRN.CNP [address] [id number] [place] [phone] Referral ID Status Reason Start Date Expiration Date Visits Requested Visits Authorized [id number] Authorized Auto-Generat ed Referral 3 04/07/2024 1 1 [facility] for referral (narrative)* Outpatient Procedure (Routine) - Authorized Specialty Diagnoses / Procedures Referred By Contac t Referred To Contact [facility] Diagnoses Coronary artery disease involving [place] coronary artery of [place] heart with angina pectoris (HCC) PAD (peripheral artery disease) ([facility]) S/P insertion of iliac artery stent Current smoker Primary hypertension Coronary angioplasty status Procedures US RADIAL ARTERY MAP LOVE VAS LAB DUP-SCAN UXTR ART/ARTL BPGS COMPL BI STUDY Willem Suarez MD [address] [place] [address] [place] [address] Referral ID Status Reason Start Date Expiration Date Visits Requested Visits Authorized [id number] Authorized Auto-Generat ed Referral 3 06/02/2024 1 1 * Outpatient Procedure (Routine) - Authorized Specialty Diagnoses / Procedures Referred By Catherine michel Referred To [facility] [place] Diagnoses Coronary artery disease involving [place] coronary artery of [place] heart with angina pectoris (HCC) PAD (peripheral artery disease) (HCC) S/P insertion of iliac artery stent Current smoker Primary hypertension Coronary angioplasty status Procedures LUNG DIFFUSION CAPACITY (DLCO) DIFFUSING CAPACITY Willem Suarez MD [address] [place] [address] [place] [address] Referral ID Status Reason Start Date Expiration Date Visits Requested Visits Authorized [id number] Authorized Auto-Generat ed Referral 3 07/02/2024 1 1 * Outpatient Procedure (Routine) - Authorized Specialty Diagnoses / Procedures Referred By Catherine michel Referred To [facility] [place] Diagnoses Coronary artery disease involving [place] coronary artery of [place] heart with angina pectoris (HCC) PAD (peripheral artery disease) ([facility]) S/P insertion of iliac artery stent Current smoker Primary hypertension Coronary angioplasty status Procedures SPIROMETRY BASELINE ONLY SPMTRY W/VC EXPIRATORY CHERYL W/[place] [address] [place] [address] [place] [address] Referral ID Status Reason Start Date Expiration Date Visits Requested Visits Authorized [id number] Authorized Auto-Generat ed Referral 3 07/02/2024 1 1 * Outpatient Procedure (Routine) - Authorized Specialty Diagnoses / Procedures Referred By Catherine michel Referred To [facility] Diagnoses Coronary artery disease involving [place] coronary artery of [place] heart with angina pectoris (HCC) PAD (peripheral artery disease) (HCC) S/P insertion of iliac artery stent Current smoker Primary hypertension Coronary angioplasty status Procedures US MAMMARY ARTERY LOVE VAS LAB DUP-SCAN UXTR ART/ARTL BPGS COMPL BI STUDY Willem Suarez MD [address] [place] [address] [address] Referral ID Status Reason Start Date Expiration Date Visits Requested Visits Authorized [id number] Authorized Auto-Generat ed Referral 3 06/02/2024 1 1 * Outpatient Procedure (Routine) - Authorized Specialty Diagnoses / Procedures Referred By Contac t Referred To Contact [facility] Diagnoses Coronary artery disease involving [place] coronary artery of [place] heart with angina pectoris (HCC) PAD (peripheral artery disease) ([facility]) S/P insertion of iliac artery stent Current smoker Primary hypertension Coronary angioplasty status Procedures US LEG VEIN MAP LOVE V[facility] LAB DUP-SCAN XTR VEINS COMPLETE BILATERAL STUDY Willem Suarez MD [address] [place] [address] [address] Referral ID Status Reason Start Date Expiration Date Visits Requested Visits Authorized [id number] Authorized Auto-Generat ed Referral 3 06/02/2024 1 1 * Outpatient Procedure (Routine) - Authorized Specialty Diagnoses / Procedures Referred By Contac t Referred To [facility] Diagnoses Coronary artery disease involving [place] coronary artery of [place] heart with angina pectoris (HCC) PAD (peripheral artery disease) (HCC) S/P insertion of iliac artery stent Current smoker Primary hypertension Coronary angioplasty status Procedures US CAROTID ARTERIES LOVE V[facility] LAB DUPLEX SCAN EXTRACRANIAL ART COMPL BI STUDY Willem Suarez MD [address] [place] [address] [address] Referral ID Status Reason Start Date Expiration Date Visits Requested Visits Authorized [id number] Authorized Auto-Generat ed Referral 3 06/23/2023 1 1 * MRI/CT (Routine) - Authorized Specialty Diagnoses / Procedures Referred By Catherine michel Referred To Contact CT IMAGING Diagnoses Coronary artery disease involving [place] coronary artery of [place] heart with angina pectoris (HCC) PAD (peripheral artery disease) (HCC) S/P insertion of iliac artery stent Current smoker Primary hypertension Coronary angioplasty status Procedures CT CHEST CARDIAC WO IVCON DIAGNOSTIC COMPUTED TOMOGRAPHY THORAX W/O CNTRST Willem Suarez MD [address] [place] [address] Ct [facility] [place] [address] Referral ID Status Reason Start Date Expiration Date Visits Requested Visits Authorized [id number] Authorized Auto-Generat ed Referral 3 07/02/2024 1 1 * Consult, Test, Treat (Routine) - Authorized Specialty Diagnoses / Procedures Referred By Catherine michel Referred To Contact Vascular Surgery Diagnoses Coronary artery disease involving [place] coronary artery of [place] heart with angina pectoris (HCC) PAD (peripheral artery disease) (HCC) S/P insertion of iliac artery stent Current smoker Primary hypertension Coronary angioplasty status Procedures CONSULT TO VASCULAR SURGERY OFFICE/OUTPATIENT NEW [facility] MDM 60-74 MINUTES Willem Suarez MD [address] [place] [address] Referral ID Status Reason Start Date Expiration Date Visits Requested Visits Authorized [id number] Authorized PCP Requested Referral 3 06/02/2024 1 1 * Consult, Test, Treat (Routine) - Authorized Specialty Diagnoses / Procedures Referred By Catherine michel Referred To Contact Cardiac Surg Diagnoses Coronary artery disease involving [place] coronary artery of [place] heart with angina pectoris (HCC) PAD (peripheral artery disease) (HCC) S/P insertion of iliac artery stent Current smoker Primary hypertension Coronary angioplasty status Procedures CARDIOTHORACIC PREOP EVALUATION OFFICE/OUTPATIENT NEW [facility] MDM 60-74 MINUTES Willem Suarez MD [address] [place] [phone] Referral ID Status Reason Start Date Expiration Date Visits Requested Visits Authorized [id number] Authorized PCP Requested Referral 3 06/02/2024 1 1 [facility] for referral (narrative)* Outpatient Procedure (Routine) - Pending Review Specialty Diagnoses / Procedures Referred By Contac t Referred To [facility] Diagnoses Surgery follow-up Procedures ECG COMPLETE ECG ROUTINE ECG W/LEAST 12 LDS W/I&R Willem Suarez MD [address] [place] [address] [place] [phone] Referral ID Status Reason Start Date Expiration Date Visits Requested Visits Authorized [id number] Pending Review Auto-Generat ed Referral 08/01/2023 07/31/2024 1 1 [facility] for referral (narrative)* Outpatient Procedure (Routine) - Pending Review Specialty Diagnoses / Procedures Referred By Contac t Referred To [facility] Diagnoses 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[place] heart with stable angina pectoris (HCC) SOB (shortness of breath) PAD (peripheral artery disease) (HCC) TIA (transient ischemic attack) Procedures ECG COMPLETE ECG ROUTINE ECG W/LEAST 12 LDS W/I&R Shanice Larsen MD [address] [place] [address] [place] [phone] Referral ID Status Reason Start Date Expiration Date Visits Requested Visits Authorized [id number] Pending Review Auto-Generat ed Referral 10/10/2023 10/09/2024 1 1 * Transition of Care (Routine) - Ref Not Required Specialty Diagnoses / Procedures Referred By Contac t Referred To [facility] Diagnoses 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[place] heart with stable angina pectoris (HCC) SOB (shortness of breath) PAD (peripheral artery disease) (HCC) TIA (transient ischemic attack) Procedures CARDIOVASCULAR MEDICINE OP FOLLOW UP APPT ORDER Shanice Larsen MD [address] [place] [address] [place] [address] [place] [address] Referral ID Status Reason Start Date Expiration Date Visits Requested Visits Authorized [id number] Ref Not Required PCP Requested Referral 01/09/2024 10/09/2024 1 1 [facility] for referral (narrative)* Outpatient Procedure (Routine) - Pending Review Specialty Diagnoses / Procedures Referred By Contac t Referred To Contact [facility] [place] Diagnoses Atherosclerosis of [place] arteries of extremities with rest pain, bilateral legs (HCC) Procedures PVR LEG LOVE VAS LAB NON-INVASIVE PHYSIOLOGIC STUDY EXTREMITY 3 Papa Hernandez MD [address] [place] [address] [address] Referral ID Status Reason Start Date Expiration Date Visits Requested Visits Authorized [id number] Pending Review Auto-Generat ed Referral 01/03/2024 01/02/2025 1 1 [facility] for referral (narrative)* Outpatient Procedure (Routine) - New Request Specialty Diagnoses / Procedures Referred By Contac t Referred To Contact [facility] Diagnoses 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) Procedures ECG COMPLETE ECG ROUTINE ECG W/LEAST 12 LDS W/I&R Shanice Larsen MD [address] [place] [address] [place] [phone] [place] [address] Referral ID Status Reason Start Date Expiration Date Visits Requested Visits Authorized [id number] New Request Auto-Generat ed Referral 04/08/2025 1 1 * Transition of Care (Routine) - Ref Not Required Specialty Diagnoses / Procedures Referred By Catherine michel Referred To [facility] Procedures CARDIOVASCULAR MEDICINE OP FOLLOW UP APPT ORDER Shanice Larsen MD [address] [place] [address] [facility] [place] [address] [place] [address] Referral ID Status Reason Start Date Expiration Date Visits Requested Visits Authorized [id number] Ref Not Required PCP Requested Referral 10/07/2024 04/08/2025 1 1 [facility] Summary Purpose Family History Unknown Family Member Name Dates Details Family [...] Malignant neoplasm of lung Unknown Advance Directives Advance Directive Response Recorded Date/ Time Advance Directives No February 2:51pm Documents on File Type Date Recorded Patient Finance Admin Expl anation Advance Directive(s) 07/17/2023 1:14 PM Documents on File Type Date Recorded Patient Finance Admin Expl anation Advance Directive(s) 07/17/2023 1:14 PM Chief Complaint and Reason for Visit Chief Complaint Abnormal Stress Test Chief Complaint Abnormal Stress Test Abnormal Stress Test Reason for Referral Specialty Diagnoses / Procedures Referred By Catherine michel Referred To Contact CT IMAGING Diagnoses 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[place] heart with stable angina pectoris (HCC) PAD (peripheral artery disease) (HCC) Primary hypertension Hyperlipidemia, unspecified hyperlipidemia type Procedures CT CHEST WO IVCON DIAGNOSTIC COMPUTED TOMOGRAPHY THORAX W/O CNTGODFREYT Shanice Larsen MD [address] [place] [id number] [facility] [place] [address] Referral ID Status Reason Start Date Expiration Date Visits Requested Visits Authorized [id number] Pending Review Auto-Generat ed Referral 01/16/2024 02/14/2025 1 1 Specialty Diagnoses / Procedures Referred By Contac t Referred To Contact [facility] [place] Diagnoses 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[place] heart with stable angina pectoris (HCC) PAD (peripheral artery disease) (HCC) Primary hypertension Hyperlipidemia, unspecified hyperlipidemia type Procedures ECG COMPLETE ECG ROUTINE ECG W/LEAST 12 LDS W/I&R Shanice Larsen MD [address] [phone] [facility] [place] [address] Referral ID Status Reason Start Date Expiration Date Visits Requested Visits Authorized [id number] New Request Auto-Generat ed Referral 01/16/2024 01/15/2025 1 1 Specialty Diagnoses / Procedures Referred By Contac t Referred To Contact [facility] [place] Diagnoses 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[place] heart with stable angina pectoris (HCC) PAD (peripheral artery disease) (HCC) Primary hypertension Hyperlipidemia, unspecified hyperlipidemia type Procedures CARDIOVASCULAR MEDICINE OP FOLLOW UP APPT ORDER Shanice Larsen MD [address] [place] [address] [facility] [place] [address] Referral ID Status Reason Start Date Expiration Date Visits Requested Visits Authorized [id number] Ref Not Required PCP Requested Referral 07/18/2024 01/15/2025 1 1 Specialty Diagnoses / Procedures Referred By Contac t Referred To Contact CT IMAGING Diagnoses Lung nodule Procedures CT CHEST WO IVCON DIAGNOSTIC COMPUTED TOMOGRAPHY THORAX W/O CNTGODFREYT Gloria Callahan MD [address] [place] [address] [place] [address] Referral ID Status Reason Start Date Expiration Date Visits Requested Visits Authorized [id number] Pending Review Auto-Generat ed Referral 10/21/2023 11/19/2024 1 1 Specialty Diagnoses / Procedures Referred By Catherine michel Referred To Contact Procedures CARDIOVASCULAR MEDICINE OP FOLLOW UP APPT ORDER Shanice Larsen MD [address] [place] [address] Referral ID Status Reason Start Date Expiration Date Visits Requested Visits Authorized [id number] Ref Not Required PCP Requested Referral 05/28/2023 05/27/2024 1 1 Specialty Diagnoses / Procedures Referred By Catherine michel Referred To Contact Cardiothoracic Surgery Diagnoses Coronary artery disease involving [place] coronary artery without angina pectoris, unspecified whether [place] or transplanted heart Procedures CONSULT TO CARDIOTHORACIC SURGERY Shanice Larsen MD [address] [place] [address] Referral ID Status Reason Start Date Expiration Date Visits Requested Visits Authorized [id number] Ref Not Required PCP Requested Referral 05/26/2023 [...] section and content) DATE CREATED AUTHOR 07/19/2022 [facility] DATE CREATED AUTHOR AUTHOR'S ORGANIZ ATION 07/20/2022 [facility] DATE CREATED AUTHOR AUTHOR'S ORGANIZ ATION 10/07/2022 [facility] DATE CREATED AUTHOR AUTHOR'S ORGANIZ ATION 04/03/2023 [facility] DATE CREATED AUTHOR AUTHOR'S ORGANIZ ATION 06/11/2023 [facility] DATE CREATED AUTHOR AUTHOR'S ORGANIZ ATION 10/03/2023 [facility] DATE CREATED AUTHOR AUTHOR'S ORGANIZ ATION 12/30/2023 [facility] EPIC DATE CREATED AUTHOR AUTHOR'S ORGANIZ ATION 04/09/2024 [facility] Care Teams (unrecognized sec tion and content) Team Status: Active Member Role Status Dates Nano Nguyen MD Primary Care Provider Active Team Status: Inactive Member Role Status Dates Patrizia Melendrez MD Attending Provider Active Nano Nguyen MD Primary Care Provider Active [employer] Assistant Relationship Specialty Start Date End Date Shanice Larsen MD [address] [place] [address] Primary Staff Physician Cardiology 04/03/23 [employer] Assistant Relationship Specialty Start Date End Date Shanice Larsen MD [address] [place] [address] Primary Staff Physician Cardiology 04/03/23 [employer] Assistant Relationship Specialty Start Date End Date Shanice Larsen MD [address] [place] [address] Primary Staff Physician Cardiology 04/03/23 [employer] Assistant Relationship Specialty Start Date End Date Shanice Larsen MD [address] [place] [address] Primary Staff Physician Cardiology 04/03/23 [employer] Assistant Relationship Specialty Start Date End Date Shanice Larsen MD [address] [place] [address] Primary Staff Physician Cardiology 04/03/23 Willem Suarez MD [address] [facility] [place] [address] Surgeon Cardiac Surg 05/30/23 [employer] Assistant Relationship Specialty Start Date End Date Shanice Larsen MD [address] [phone] Primary Staff Physician Cardiology 04/03/23 iWllem Suarez MD [address] [phone] Surgeon Cardiac Surg 05/30/23 [employer] Assistant Relationship Specialty Start Date End Date Nano Nguyen MD [address] [place] [address] PCP - General Family Medicine 06/14/23 Shanice Larsen MD Primary Staff Physician Cardiology 04/03/23 Willem Suarez MD [address] [phone] Surgeon Cardiac Surg 05/30/23 [employer] Assistant Relationship Specialty Start Date End Date Nano Nguyen MD [address] [place] [address] PCP - General Family Medicine 06/14/23 Shanice Larsen MD Primary Staff Physician Cardiology 04/03/23 Willem Suarez MD [address] [phone] Surgeon Cardiac Surg 05/30/23 [employer] Assistant Relationship Specialty Start Date End Date Nano Nguyen MD [address] [place] [address] PCP - General Family Medicine 06/14/23 Shanice Larsen MD Primary Staff Physician Cardiology 04/03/23 Willem Suarez MD [address] [place] [address] Surgeon Cardiac Surg 05/30/23 [employer] Assistant Relationship Specialty Start Date End Date Nano Nguyen MD [address] [place] [address] PCP - General Family Medicine 06/14/23 Shanice Larsen MD Primary Staff Physician Cardiology 04/03/23 Willem Suarez MD [address] [place] [address] Surgeon Cardiac Surg 05/30/23 [employer] Assistant Relationship Specialty Start Date End Date Nano Nguyen MD [address] [phone] PCP - General Family Medicine 06/14/23 Shanice Larsen MD Primary Staff Physician Cardiology 04/03/23 Willem Suarez MD [address] [place] [address] Surgeon Cardiac Surg 05/30/23 [employer] Assistant Relationship Specialty Start Date End Date Nano Nguyen MD [address] [place] [address] PCP - General Family Medicine 06/14/23 Shanice Larsen MD Primary Staff Physician Cardiology 04/03/23 Willem Suarez MD [address] [place] [address] Surgeon Cardiac Surg 05/30/23 [employer] Beauty [employer] Assistant Relationship Specialty Start Date End Date Nano Nguyen MD [address] [place] [address] PCP - General Family Medicine 06/14/23 Shanice Larsen MD Primary Staff Physician Cardiology 04/03/23 Willem Suarez MD [address] [place] [address] Surgeon Cardiac Surg 05/30/23 [employer] Beauty [employer] Assistant Relationship Specialty Start Date End Date Nano Nguyen MD [address] [place] [address] PCP - General Family Medicine 06/14/23 Shanice Larsen MD Primary Staff Physician Cardiology 04/03/23 Willem Suarez MD [address] [place] [address] Surgeon Cardiac Surg 05/30/23 [employer] Beauty [employer] Assistant Relationship Specialty Start Date End Date Nano Nguyen MD [address] [place] [address] PCP - General Family Medicine 06/14/23 Shanice Larsen MD Primary Staff Physician Cardiology 04/03/23 Willem Suarez MD [address] [place] [address] Surgeon Cardiac Surg 05/30/23 [employer] Beauty [employer] Assistant Relationship Specialty Start Date End Date Nano Nguyen MD [address] [place] [address] PCP - General Family Medicine 06/14/23 Shanice Larsen MD Primary Staff Physician Cardiology 04/03/23 Willem Suarez MD [address] [place] [address] Surgeon Cardiac Surg 05/30/23 [employer] Beauty [employer] Assistant Relationship Specialty Start Date End Date Nano Nguyen MD [address] [place] [address] PCP - General Family Medicine 06/14/23 Shanice Larsen MD Primary Staff Physician Cardiology 04/03/23 Willem Suarez MD [address] [place] [address] Surgeon Cardiac Surg 05/30/23 [employer] Beauty [employer] Assistant Relationship Specialty Start Date End Date Nano Nguyen MD [address] [place] [address] PCP - General Family Medicine 06/14/23 Shanice Larsen MD Primary Staff Physician Cardiology 04/03/23 Willem Suarez MD [address] [place], [place] [id number] Surgeon Cardiac Surg 05/30/23 Hair [employer] Beauty [employer] Assistant Relationship Specialty Start Date End Date Nano Nguyen MD [address] [phone] PCP - General Family Medicine 06/14/23 Shanice Larsen MD Primary Staff Physician Cardiology 04/03/23 Willem Suarez MD [address] [place], [place] [phone] Surgeon Cardiac Surg 05/30/23 [employer] Beauty [employer] Assistant Relationship Specialty Start Date End Date Nano Nguyen MD [address] [place] [address] PCP - General Family Medicine 06/14/23 Shanice Larsen MD Primary Staff Physician Cardiology 04/03/23 Willem Suarez MD [address] [place], [place] [id number] Surgeon Cardiac Surg 05/30/23 [employer] Beauty [employer] Assistant Relationship Specialty Start Date End Date Nano Nguyen MD [address] [place] [address] PCP - General Family Medicine 06/14/23 Shanice Larsen MD Primary Staff Physician Cardiology 04/03/23 Willem Suarez MD [address] [place] [address] Surgeon Cardiac Surg 05/30/23 Hair [employer] Beauty Sal[employer] Assistant Relationship Specialty Start Date End Date Nano Nguyen MD [address] [id number] PCP - General Family Medicine 06/14/23 Shanice Larsen MD Primary Staff Physician Cardiology 04/03/23 Willem Suarez MD [address] [place] [address] Surgeon Cardiac Surg 05/30/23 [employer] Beauty Sal[employer] Assistant Relationship Specialty Start Date End Date Nano Nguyen MD [address] [place] [address] PCP - General Family Medicine 06/14/23 Shanice Larsen MD Primary Staff Physician Cardiology 04/03/23 Willem Suarez MD [address] [place], [place] [id number] Surgeon Cardiac Surg 05/30/23 Hair [employer] Beauty Sal[employer] Assistant Relationship Specialty Start Date End Date Nano Nguyen MD [address] [place] [address] PCP - General Family Medicine 06/14/23 Shanice Larsen MD Primary Staff Physician Cardiology 04/03/23 Willem Suarez MD [address] [place] [address] Surgeon Cardiac Surg 05/30/23 Hair [employer] Beauty Sal[employer] Assistant Relationship Specialty Start Date End Date Nano Nguyen MD [address] [place] [address] PCP - General Family Medicine 06/14/23 Shanice Larsen MD Primary Staff Physician Cardiology 04/03/23 Willem Suarez MD [address] [facility] [place] [address] Surgeon Cardiac Surg 05/30/23 Hair [employer] Beauty [employer] Assistant Relationship Specialty Start Date End Date Nano Nguyen MD [address] [id number] PCP - General Family Medicine 06/14/23 Shanice Larsen MD Primary Staff Physician Cardiology 04/03/23 Willem Suarez MD [address] [facility] [place], [place] [id number] Surgeon Cardiac Surg 05/30/23 Goals (unrecognized section and content) Goals may be documented in a n alternate sectionNo InformationNo InformationNo Information REASON FOR VISIT (unrecogniz ed section and content) Reason Comments Follow Up Tests Results Reason Comments Follow Up Reason Comments Insurance Authorization Reason Comments Referral Information New Patient Evaluation Reason Comments Follow Up Phone Call RC f/u all clear Specialty Diagnoses / Procedures Referred By Catherine t Referred To Contact ADMITTING Diagnoses Coronary artery disease involving [place] coronary artery of [place] heart with angina pectoris (HCC) Type 2 diabetes mellitus without complication, without long-term current use of insulin (HCC) Procedures CORONARY ARTERY BYP W/VEIN & ARTERY GRAFT 1 VEIN BYPASS GRAFT ARTERY CORONARY ON-PUMP USING VENOUS GRAFT(S) AND ARTERIAL GRAFT(S) SINGLE VEIN GRAFT Hosp [facility] [address] [phone] Referral ID Status Reason Start Date Expiration Date Visits Re quested Visits Authorized [id number] 1 1 Reason Comments Radio Main J1 Specialty Diagnoses / Procedures Referred By Catherine t Referred To Contact ADMITTING Diagnoses Coronary artery disease involving [place] coronary artery of [place] heart with angina pectoris (HCC) Type 2 diabetes mellitus without complication, without long-term current use of insulin (HCC) Procedures CORONARY ARTERY BYP W/VEIN & ARTERY GRAFT 1 VEIN BYPASS GRAFT ARTERY CORONARY ON-PUMP USING VENOUS GRAFT(S) AND ARTERIAL GRAFT(S) SINGLE VEIN GRAFT [facility] [address] [phone] Reason Comments Follow Up Phone Call follow up call a ll clear. Reason Comments Appointment Reason Comments dental clearance Specialty Diagnoses / Procedures Referred By Catherine t Referred To Contact CT IMAGING Diagnoses Lung nodule Procedures CT CHEST WO IVCON DIAGNOSTIC COMPUTED TOMOGRAPHY THORAX W/O CNTRST Gloria Callahan MD [phone] Imaging [place] [address] Referral ID Status Reason Start Date Expiration Date V isits Requested Visits Authorized [id number] Closed Auto-Generate d Referral 09/02/2023 06/23/2024 1 1 Reason Comments Follow Up Shortness of Breath Specialty Diagnoses / Procedures Referred By Catherine t Referred To Contact Diagnoses Follow-up exam Procedures CARDIOVASCULAR MEDICINE OP FOLLOW UP APPT ORDER OFFICE/OUTPATIENT ESTABLISHED HIGH MDM 40 MIN Pamela Laws APRN.DEE DEE [address] [id number] Or Main [address] [facility] [place] [address] [place] [address] Referral ID Status Reason Start Date Expiration Date V isits Requested Visits Authorized [id number] Closed PCP Requested Referral 10/01/2023 07/01/2024 1 1 Reason Comments Received Outside Medical Records [facility] E ECHO REPORT Reason Comments Received Outside Medical Records CD [facility] Reason Comments Insurance Authorization Repatha SureClic k 140MG/ML auto-injectors Reason Comments Follow Up Specialty Diagnoses / Procedures Referred By Contac t Referred To Contact [facility] Diagnoses 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[place] heart with stable angina pectoris (HCC) SOB (shortness of breath) PAD (peripheral artery disease) (HCC) TIA (transient ischemic attack) Procedures CARDIOVASCULAR MEDICINE OP FOLLOW UP APPT ORDER Shanice Larsen MD [address] [place] [address] [facility] [place] [address] [place] [address] Referral ID Status Reason Start Date Expiration Date Visits Requested Visits Authorized [id number] Ref Not Required PCP Requested Referral 01/09/2024 10/09/2024 1 1 Reason Comments Established Patient Specialty Diagnoses / Procedures Referred By Contac t Referred To Contact CT IMAGING Diagnoses 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[place] heart with stable angina pectoris (HCC) PAD (peripheral artery disease) (HCC) Primary hypertension Hyperlipidemia, unspecified hyperlipidemia type Procedures CT CHEST WO IVCON DIAGNOSTIC COMPUTED TOMOGRAPHY THORAX W/O CNTRST Shanice Larsen MD [address] [place] [address] Ct Imaging [facility] Referral ID Status Reason Start Date Expiration Date V isits Requested Visits Authorized [id number] Closed Auto-Generate d Referral 2024 06/23/2024 1 1 Reason Comments Results Reason Comments Chest Pain Source Comments (unrecognize d section and content) In the event this informatio n is protected by the Federal Confidentiality of Alcohol and Drug Abuse Patient Records regulations: The Federal rules restrict any use of the information to criminally investigate or prosecute any alcohol or drug abuse patient.[facility] the event this information is protected by the Federal Confidentiality of Alcohol and Drug Abuse Patient Records regulations: The Federal rules restrict any use of the information to criminally investigate or prosecute any alcohol or drug abuse patient.[facility] HospitalIn the event this information is protected by the Federal Confidentiality of Alcohol and Drug Abuse Patient Records regulations: The Federal rules restrict any use of the information to criminally investigate or prosecute any alcohol or drug abuse patient.[facility] HospitalIn the event this information is protected by the Federal Confidentiality of Alcohol and Drug Abuse Patient Records regulations: The Federal rules restrict any use of the information to criminally investigate or prosecute any alcohol or drug abuse patient.[facility] HospitalIn the event this information is protected by the Federal Confidentiality of Alcohol and Drug Abuse Patient Records regulations: The Federal rules restrict any use of the information to criminally investigate or prosecute any alcohol or drug abuse patient.[facility] HospitalIn the event this information is protected by the Federal Confidentiality of Alcohol and Drug Abuse Patient Records regulations: The Federal rules restrict any use of the information to criminally investigate or prosecute any alcohol or drug abuse patient.[facility] HospitalIn the event this information is protected by the Federal Confidentiality of Alcohol and Drug Abuse Patient Records regulations: The Federal rules restrict any use of the information to criminally investigate or prosecute any alcohol or drug abuse patient.[facility] HospitalIn the event this information is protected by the Federal Confidentiality of Alcohol and Drug Abuse Patient Records regulations: The Federal rules restrict any use of the information to criminally investigate or prosecute any alcohol or drug abuse patient.[facility] HospitalIn the event this information is protected by the Federal Confidentiality of Alcohol and Drug Abuse Patient Records regulations: The Federal rules restrict any use of the information to criminally investigate or prosecute any alcohol or drug abuse patient.[facility] HospitalIn the event this information is protected by the Federal Confidentiality of Alcohol and Drug Abuse Patient Records regulations: The Federal rules restrict any use of the information to criminally investigate or prosecute any alcohol or drug abuse patient.[facility] HospitalIn the event this information is protected by the Federal Confidentiality of Alcohol and Drug Abuse Patient Records regulations: The Federal rules restrict any use of the information to criminally investigate or prosecute any alcohol or drug abuse patient.[facility] HospitalIn the event this information is protected by the Federal Confidentiality of Alcohol and Drug Abuse Patient Records regulations: The Federal rules restrict any use of the information to criminally investigate or prosecute any alcohol or drug abuse patient.[facility] HospitalIn the event this information is protected by the Federal Confidentiality of Alcohol and Drug Abuse Patient Records regulations: The Federal rules restrict any use of the information to criminally investigate or prosecute any alcohol or drug abuse patient.[facility] HospitalIn the event this information is protected by the Federal Confidentiality of Alcohol and Drug Abuse Patient Records regulations: The Federal rules restrict any use of the information to criminally investigate or prosecute any alcohol or drug abuse patient.[facility] HospitalIn the event this information is protected by the Federal Confidentiality of Alcohol and Drug Abuse Patient Records regulations: The Federal rules restrict any use of the information to criminally investigate or prosecute any alcohol or drug abuse patient.[facility] HospitalIn the event this information is protected by the Federal Confidentiality of Alcohol and Drug Abuse Patient Records regulations: The Federal rules restrict any use of the information to criminally investigate or prosecute any alcohol or drug abuse patient.[facility] HospitalIn the event this information is protected by the Federal Confidentiality of Alcohol and Drug Abuse Patient Records regulations: The Federal rules restrict any use of the information to criminally investigate or prosecute any alcohol or drug abuse patient.[facility] HospitalIn the event this information is protected by the Federal Confidentiality of Alcohol and Drug Abuse Patient Records regulations: The Federal rules restrict any use of the information to criminally investigate or prosecute any alcohol or drug abuse patient.[facility] HospitalIn the event this information is protected by the Federal Confidentiality of Alcohol and Drug Abuse Patient Records regulations: The Federal rules restrict any use of the information to criminally investigate or prosecute any alcohol or drug abuse patient.[facility] HospitalIn the event this information is protected by the Federal Confidentiality of Alcohol and Drug Abuse Patient Records regulations: The Federal rules restrict any use of the information to criminally investigate or prosecute any alcohol or drug abuse patient.[facility] HospitalIn the event this information is protected by the Federal Confidentiality of Alcohol and Drug Abuse Patient Records regulations: The Federal rules restrict any use of the information to criminally investigate or prosecute any alcohol or drug abuse patient.[facility] HospitalIn the event this information is protected by the Federal Confidentiality of Alcohol and Drug Abuse Patient Records regulations: The Federal rules restrict any use of the information to criminally investigate or prosecute any alcohol or drug abuse patient.[facility] HospitalIn the event this information is protected by the Federal Confidentiality of Alcohol and Drug Abuse Patient Records regulations: The Federal rules restrict any use of the information to criminally investigate or prosecute any alcohol or drug abuse patient.[facility] HospitalIn the event this information is protected by the Federal Confidentiality of Alcohol and Drug Abuse Patient Records regulations: The Federal rules restrict any use of the information to criminally investigate or prosecute any alcohol or drug abuse patient.[facility] HospitalIn the event this information is protected by the Federal Confidentiality of Alcohol and Drug Abuse Patient Records regulations: The Federal rules restrict any use of the information to criminally investigate or prosecute any alcohol or drug abuse patient.[facility] HospitalIn the event this information is protected by the Federal Confidentiality of Alcohol and Drug Abuse Patient Records regulations: The Federal rules restrict any use of the information to criminally investigate or prosecute any alcohol or drug abuse patient.[facility] HospitalIn the event this information is protected by the Federal Confidentiality of Alcohol and Drug Abuse Patient Records regulations: The Federal rules restrict any use of the information to criminally investigate or prosecute any alcohol or drug abuse patient.[facility] HospitalIn the event this information is protected by the Federal Confidentiality of Alcohol and Drug Abuse Patient Records regulations: The Federal rules restrict any use of the information to criminally investigate or prosecute any alcohol or drug abuse patient.[facility] HospitalIn the event this information is protected by the Federal Confidentiality of Alcohol and Drug Abuse Patient Records regulations: The Federal rules restrict any use of the information to criminally investigate or prosecute any alcohol or drug abuse patient.[facility] HospitalIn the event this information is protected by the Federal Confidentiality of Alcohol and Drug Abuse Patient Records regulations: The Federal rules restrict any use of the information to criminally investigate or prosecute any alcohol or drug abuse patient.[facility] HospitalIn the event this information is protected by the Federal Confidentiality of Alcohol and Drug Abuse Patient Records regulations: The Federal rules restrict any use of the information to criminally investigate or prosecute any alcohol or drug abuse patient.[facility] HospitalIn the event this information is protected by the Federal Confidentiality of Alcohol and Drug Abuse Patient Records regulations: The Federal rules restrict any use of the information to criminally investigate or prosecute any alcohol or drug abuse patient.[facility] HospitalIn the event this information is protected by the Federal Confidentiality of Alcohol and Drug Abuse Patient Records regulations: The Federal rules restrict any use of the information to criminally investigate or prosecute any alcohol or drug abuse patient.[facility] HospitalIn the event this information is protected by the Federal Confidentiality of Alcohol and Drug Abuse Patient Records regulations: The Federal rules restrict any use of the information to criminally investigate or prosecute any alcohol or drug abuse patient.[facility] HospitalIn the event this information is protected by the Federal Confidentiality of Alcohol and Drug Abuse Patient Records regulations: The Federal rules restrict any use of the information to criminally investigate or prosecute any alcohol or drug abuse patient.[facility] HospitalIn the event this information is protected by the Federal Confidentiality of Alcohol and Drug Abuse Patient Records regulations: The Federal rules restrict any use of the information to criminally investigate or prosecute any alcohol or drug abuse patient.[facility] HospitalIn the event this information is protected by the Federal Confidentiality of Alcohol and Drug Abuse Patient Records regulations: The Federal rules restrict any use of the information to criminally investigate or prosecute any alcohol or drug abuse patient.[facility] HospitalIn the event this information is protected by the Federal Confidentiality of Alcohol and Drug Abuse Patient Records regulations: The Federal rules restrict any use of the information to criminally investigate or prosecute any alcohol or drug abuse patient.[facility] HospitalIn the event this information is protected by the Federal Confidentiality of Alcohol and Drug Abuse Patient Records regulations: The Federal rules restrict any use of the information to criminally investigate or prosecute any alcohol or drug abuse patient.[facility] FOR RECORDS PERTAINING TO PATIENTS WHO ARE [...] BE BASED ON THE PRIMARY CLINICAL RECORDS. [facility] [employer] ([employer] [facility]. provides no warranty or guarantee of the accuracy or completeness of information in this document.
== END 2024-04-14 12:04 | disposition home or self-care (01) ==
LOC: RAD 12:06
PROVIDERS: PCP Family Medicine; Visit Provider Family Medicine
DX: M25.552 Pain in left hip (principal)
CPT/HCPCS: 73502

== ENCOUNTER 2024-05-02 11:04 | Emergency (ER) | payer OTHER, SELFPAY ==
[2024-05-02 11:11] VITALS: BP 171/100; PULSE 125; TEMP 36.6; O2SAT 100; BMI 28.3
--- OUTSIDE RECORDS SUMMARY | 2024-05-02 11:17 | XMS_ITS | CCD ---
Author Organization [facility] CliniSys[facility] Care Team Providers Care Electroplater Automatic Name Role Phone Nano Nguyen Primary Care [...] MCGILL Admitting Unavailable Shawn Graff Consulting Unavailable [place], DR NISA Lainez Consulting Unavailable ROBERTAY ., [...] Provider MD Nano Nguyen Primary Care Provider [phone] Patrizia Melendrez Unavailable Patrizia Melendrez Attending Unavailable Hoy, Nano M Primary Care Unavailable Patrizia Melendrez Admitting Unavailable Patrizia Melendrez Attending Unavailable Honelda, Nano M Primary Care Unavailable Patrizia Melendrez Admitting Unavailable Shanice Larsen MD Unavailable Willem Suarez MD Unavailable Shanice Larsen MD Unavailable Unavailable Nano Nguyen MD Primary Care Provider [phone] Shanice Larsen MD Unavailable Nano Nguyen MD Primary Care Provider [phone] NANO NGUYEN Primary Care Unavailable HOY, NANO M Referring Unavailable HOY, NANO M Primary Care Unavailable HOY, NANO M Referring Unavailable WENDY, NANO M Primary Care Unavailable Nano Nguyen MD Primary Care Provider [phone] TRIPP HUTSON Attending Unavailable HOY, NANO M Primary Care Unavailable SHANICE LARSEN Referring Unavailable SHANICE LARSEN Attending Unavailable WILLEM SUAREZ Referring Unavailable WENDY, NANO M Primary Care Unavailable DILLE, PAMELA Referring Unavailable BARZILAI, BENICO Attending Unavailable HOY, NANO M Primary Care Unavailable GLORIA CALLAHAN Attending Unavailable HOY, NANO M Primary Care Unavailable BAKAEEN, WILLEM Referring Unavailable HOY, NANO M Primary Care Unavailable AMBANI, PAPA Attending Unavailable HOY, NANO [...] BENICO Attending Unavailable BARZILAI, BENICO Referring Unavailable HOY, NANO M Primary Care Unavailable BAKAEEN, WILLEM Referring Unavailable HOY, NANO M Primary Care Unavailable BAKAEEN, WILLEM Referring Unavailable HOY, NANO M Primary Care Unavailable BAKAEEN, WILLEM Referring Unavailable BAKAEEN, WILLEM Referring Unavailable BARZILAI, BENICO Referring Unavailable BARZILAI, BENICO Attending Unavailable BARZILAI, BENICO Referring Unavailable GLORIA CALLAHAN Attending Unavailable HOY, NANO M Primary Care Unavailable BAKAEEN, WILLEM Attending Unavailable BAKAEEN, WILLEM Referring Unavailable HOY, NANO M Primary Care Unavailable AMBANI, PAPA Referring Unavailable HOY, NANO M Primary Care Unavailable DILLE, PAMELA Attending Unavailable BARZILAI, BENICO Referring Unavailable HOY, NANO M Primary Care Unavailable CARLOS PEREZAH Referring Unavailable HOY, NANO M Primary Care Unavailable BARZILAI, BENICO Referring Unavailable HOY, NANO M Primary Care Unavailable DUKE SHEEHAN Referring Unavailable DANIA CRUZ Attending Unavailable BAKAEEN, WILLEM Referring Unavailable HOY, NANO M Primary Care Unavailable HOY, NANO M Primary Care Unavailable BAKAEEN, WILLEM Referring Unavailable BAKAEEN, WILLEM Referring Unavailable HOY, NANO M Primary Care Unavailable BAKAEEN, WILLEM Attending Unavailable BAKAEEN, WILLEM Admitting Unavailable AMBANI, PAPA Attending Unavailable BARZILAI, BENICO Referring Unavailable HOY, NANO M Primary Care Unavailable HOY, NAON M Primary Care Unavailable AMBANI, PAPA Referring Unavailable HOY, NANO M Primary Care Unavailable SELF Referring Unavailable AMBANI, PAPA Attending Unavailable HOY, NANO M Primary Care Unavailable BARZILAI, BENICO Referring Unavailable Allergies Allergy Classification Reported Allergen(s) Allergy Type Date of Onset Reaction(s) Facility (20 sources) Tetracycline; Translations: [tetracycline] Drug Allergy 3 Unknown, GI Upset [facility] (2 sources) rosuvastatin; Translations: [ROSUVASTATIN] Drug Allergy 0 [facility] (1 source) SITagliptin Drug Allergy 0 [facility] (1 source) Tetracycline Drug Allergy [facility] (3 sources) House dust mite Drug allergy Unknown [employer] Other (4 sources) Cat dander; Translations: [CAT DANDER] Drug allergy 3 Unknown [facility] Rep[facility] (1 source) Tetracycline Drug Allergy 3 [facility] Repository (20 sources) Vincentian house dust mite allergenic extract / house dust mite allergenic extract; Translations: [ALLERG XT,D.FARINAE-D.P TERONYS] Drug Allergy 3 Itching [facility] (20 sources) Cat Hair Extract; Translations: [CAT HAIR STANDARDIZED ALLERGENIC EXTRACT] Drug Allergy 3 Itching [facility] (20 sources) house dust allergenic extract; Translations: [HOUSE DUST] Drug Allergy 3 Itching [facility] (20 sources) rosuvastatin Drug Allergy 0 Unknown [facility] (20 sources) SITagliptin; Translations: [SITAGLIPTIN] Drug Allergy 0 Unknown [facility] (11 sources) Miconazole; Translations: [MICONAZOLE] Drug Allergy 4 Itching, Swelling [facility] Medications Current Medications Medication Drug Class(es) [...] hours as needed (for mild surgical pain). [id number] 200 actuat albuterol 0.09 mg/actuat metered dose [...] mouth once daily. Take [address] [facility] once daily. Calcium (2 sources) Phosphate [...] 0 03/07/2023 Suspended take 2 tablets by [facility] every twelve hours Carvedilol 6.25 MG [...] 20, 2023 12:00am take 1 capsule by [facility] every twenty-four hours Vitamin D3 1000 [...] Comment on above: Take [facility] by [facility] daily. docusate sodium 100 mg oral capsule (20 sources) Start: 08-02-2023 take 1 capsule by mouth twice daily docusate sodium (COLACE) 100 mg capsule Take 1 capsule by mouth two times a day. 30 capsule 08/02/2023 Active Comment on above: Take 1 capsule by mo [facility] two times a day. 0.5 ml [...] evolocumab 140 mg/mL subcutaneous pen injector (REPATHA [employer]) Inject 140 mg subcutaneously every 2 weeks. [...] 1 tablet once daily for 10 days. iv contrast (will be provided with radiology test) (1 source) Start: 2023 End: 2023 inject 1 dose intravenously once iv contrast (will be provided with radiology test) CTA ABD/PEL LE - No IV access, insert saline lock prior to the sedation, infusion, injection for imaging exam. Discontinue saline lock post exam. If Pt. has a central line or IVAD, may access for administration according to line specific nursing protocol. Once exam is complete flush line and de-access according to line specific nursing protocol in the CT contrast administration guidelines link. 1 Each 04/28/2024 04/29/2024 Active L.Acid-L.Rham-B.Brev e-S.Therm (1 source) Start: 2022 take 1 tablet by mouth two times weekly L.Acid-L.Rham-B.Brev e-S.Therm Active 1 TAB PO Twice a Week March 20, 2023 12:00am L.Acid-L.Rham-B.Brev e-S.Therm (Probiotic) 3 billion cell Tablet,Chewable (1 source) Start: 2022 take 3 tablets by mouth two times weekly L.Acid-L.Rham-B.Brev e-S.Therm (Probiotic) 3 billion cell Tablet,Chewable Active 1 [...] Comment on above: Take 2 tablets by mo [facility] once daily for 14 days. metFORMIN [...] Start: 04-12-2022 take 2 tablets by mo [facility] once daily metFORMIN HCl - 1000 MG Oral Tablet TAKE 2 TABLET Daily Quantity: 0 Refills: 0 Ordered: 12-Apr-2022 DO Start : 12-Apr-2022 Active Comment on above: Take 1,000 mg by [facility] two times a day. 24 hr metoprolol [...] Active oxybutynin chloride 5 mg oral tablet (15 sources) Cholinergic Muscarinic Antagonist Start: 03-20-2023 oxybutynin (DITROPAN) 5 mg tablet two times a day. 03/20/2023 Active Start: 02-10-2021 take 2 tablets by mo [facility] once daily oxyBUTYnin Chloride 5 MG [...] 2023 12:00am take 1 capsule by mo [facility] once daily at mealtime Potassium Gluconate [...] mg by mouth two times a day. rosuvastatin calcium 5 mg oral tablet (2 sources) HMG-CoA Reductase Inhibitor take 2.5 mg by mouth once daily rosuvastatin (CRESTOR) 5 mg tablet Take 2.5 mg by mouth once daily. Active Trospium (9 sources) Cholinergic Muscarinic Antagonist trospium chloride (TROSPIUM [...] on above: Take 1 capsule by mo [facility] once daily. Completed/Discontinued Medications Medication Drug [...] 03/07/2023 Suspended take 1 tablet by [facility] every [...] artery disease; Translations: [Atherosclerotic heart disease of [place] coronary artery without angina pectoris] Onset: 05-28-2023 [...] INVLV CIRC RS] Onset: 05-24-2022 Episodic Other circulatory disease (1 source) Abnormal peripheral pulse; Translations: [Other specified symptoms and signs involving the circulatory and respiratory systems] 04-28-2024 Episodic Other lower respiratory disease (2 sources) [...] Onset: 06-02-2022 Episodic Other lower respiratory disease (2 sources) Shortness of breath; Translations: [SOB (shortness of breath)] Onset: 01-16-2024 Episodic Other lower respiratory disease (20 sources) [...] Name Value Interpretation Reference Range Facility CNOVon 04-28-2024 CNOV Normal [facility] CNPTOUTREACHon 02-26-2024 CNPTOUTREACH Normal [facility] CNPNon 02-25-2024 CNPN Normal [facility] CT CHEST WO IVCONon 02-18-20 CT CHEST WO IVCON Normal [facility] CNPTOUTREACHon 02-04-2024 CNPTOUTREACH Normal [facility] CNOVon 01-28-2024 CNOV Normal [facility] PVR LEG LOVE VAS LABon 2023 PVR LEG LOVE VAS LAB Normal [facility] CNOVon 01-16-2024 CNOV Normal [facility] ECG COMPLETEon 01-16-2024 ECG COMPLETE Normal [facility] CNPNon 01-01-2024 CNPN Normal [facility] CNPTOUTREACHon 10-30-2023 CNPTOUTREACH Normal [facility] CNPNon 10-25-2023 CNPN Normal [facility] CNPTOUTREACHon 10-24-2023 CNPTOUTREACH Normal [facility] CNPNon 10-18-2023 CNPN Normal [facility] CNPNon 10-17-2023 CNPN Normal [facility] CNOVon 10-10-2023 CNOV Normal [facility] CT CHEST WO IVCONon 10-10-19 CT CHEST WO IVCON Normal [facility] ECG COMPLETEon 10-10-2023 ECG COMPLETE Normal [facility] CNPNon 09-23-2023 CNPN Normal [facility] CNPTOUTREACHon 09-03-2023 CNPTOUTREACH Normal [facility] CNPNon 08-23-2023 CNPN Normal [facility] CNPNon 08-08-2023 CNPN Normal [facility] CBC panel Auto (Bld)on 08-07 Erythrocyte distribution width (RBC) [Ratio] 13.2 % Normal 11.5-15.0 [facility] Comment on above: Order Comment: Speci men Type: BLOOD SPECIMENOrdering Facility: [facility] Address: [address] [place] [address] Performed By: #### 5 8410-2 ####[facility] LABIA [id number] [place] [address] [place] Hematocrit (Bld) [Volume fraction] 32.4 % Low 36.0-46.0 [facility] Comment on above: Order Comment: Speci men Type: BLOOD SPECIMENOrdering Facility: [facility] Address: [address] [place] [address] Performed By: #### 5 8410-2 ####[facility] [id number] [place] [address] [place] Hemoglobin (Bld) [Mass/Vol] 10.4 g/dL Low 11.5-15.5 [facility] Comment on above: Order Comment: Speci men Type: BLOOD SPECIMENOrdering Facility: [facility] Address: [address] [place] [address] Performed By: #### 5 8410-2 ####[facility] [id number] [place] [address] [place] MCH (RBC) [Entitic mass] 31.0 pg Normal 26.0-34.0 [facility] Comment on above: Order Comment: Speci men Type: BLOOD SPECIMENOrdering Facility: [facility] Address: [address] [address] Performed By: #### 5 8410-2 ####[facility] [id number] [place] [address] [place] MCHC (RBC) [Mass/Vol] 32.1 g/dL Normal 30.5-36.0 [facility] Comment on above: Order Comment: Speci men Type: BLOOD SPECIMENOrdering Facility: [facility] Address: [address] [place] [address] Performed By: #### 5 8410-2 ####[facility] LABCL[facility] [id number] [place] [address] [place] MCV (RBC) [Entitic vol] 96.4 fL Normal 80.0-100.0 [facility] Comment on above: Order Comment: Speci men Type: BLOOD SPECIMENOrdering Facility: [facility] Address: [address] [place] [address] Performed By: #### 5 8410-2 ####[facility] [id number] [place] [address] [place] Nucleated RBC (Bld) [#/Vol] 10*3/uL Normal <0.01 [facility] Comment on above: Order Comment: Speci men Type: BLOOD SPECIMENOrdering Facility: [facility] Address: [address] [place] [address] Performed By: #### 5 8410-2 ####[facility] [id number] [place] [address] [place] Platelet mean volume (Bld) [Entitic vol] 9.3 fL Normal 9.0-12.7 [facility] Comment on above: Order Comment: Speci men Type: BLOOD SPECIMENOrdering Facility: [facility] Address: [address] [place] [address] Performed By: #### 5 8410-2 ####[facility] [id number] [place] [address] [place] Platelets (Bld) [#/Vol] 392 10*3/uL Normal 150-400 [facility] Comment on above: Order Comment: Speci men Type: BLOOD SPECIMENOrdering Facility: [facility] Address: [address] [place] [address] Performed By: #### 5 8410-2 ####[facility] [id number] [place] [address] [place] RBC (Bld) [#/Vol] 3.36 10*6/uL Low 3.90-5.20 [facility] Comment on above: Order Comment: Speci men Type: BLOOD SPECIMENOrdering Facility: [facility] Address: [address] [place] [address] Performed By: #### 5 8410-2 ####[facility] LABCL[facility] [id number] [place] [address] [place] WBC (Bld) [#/Vol] 7.17 10*3/uL Normal 3.70-11.00 [facility] Comment on above: Order Comment: Speci men Type: BLOOD SPECIMENOrdering Facility: [facility] Address: [address] [place] [address] Performed By: #### 5 8410-2 ####[facility] LABCL[facility] [id number] [place] [address] [place] CNOVon 08-07-2023 CNOV Normal [facility] Comprehensive metabolic 2000 panelon 08-07-2023 Albumin [Mass/Vol] 3.8 g/dL Low 3.9-4.9 [facility] Comment on above: Order Comment: Speci men Type: BLOOD SPECIMENOrdering Facility: [facility] Address: [address] [place] [address] Performed By: #### 2 4323-8 ####[facility] LABCLIA [id number] [place] [address] [place] ALP [Catalytic activity/Vol] 93 U/L Normal 34-123 [facility] Comment on above: Order Comment: Speci men Type: BLOOD SPECIMENOrdering Facility: [facility] Address: [address] [place] [address] Performed By: #### 2 4323-8 ####[facility] LABCL[facility] [id number] [place] [address] [place] ALT [Catalytic activity/Vol] 21 U/L Normal 7-38 [facility] Comment on above: Order Comment: Speci men Type: BLOOD SPECIMENOrdering Facility: [facility] Address: [address] [place] [place] [id number] Performed By: #### 2 4323-8 ####[facility] LABCLIA [id number] [place] [id number] [place] Anion gap [Moles/Vol] 14 mmol/L Normal 9-18 [facility] Comment on above: Order Comment: Speci men Type: BLOOD SPECIMENOrdering Facility: [facility] Address: [address] [place] [address] Performed By: #### 2 4323-8 ####[facility] LABCL[facility] [id number] [place] [address] [place] AST [Catalytic activity/Vol] 14 U/L Normal 13-35 [facility] Comment on above: Order Comment: Speci men Type: BLOOD SPECIMENOrdering Facility: [facility] Address: [address] [place] [address] Performed By: #### 2 4323-8 ####[facility] LABCL[facility] [id number] [place] [address] [place] Bilirubin [Mass/Vol] 0.3 mg/dL Normal 0.2-1.3 [facility] Comment on above: Order Comment: Speci men Type: BLOOD SPECIMENOrdering Facility: [facility] Address: [address] [place], [place] [address] Performed By: #### 2 4323-8 ####[facility] LABCLIA [id number] [place] [address] [place] Calcium [Mass/Vol] 10.3 mg/dL High 8.5-10.2 [facility] Comment on above: Order Comment: Speci men Type: BLOOD SPECIMENOrdering Facility: [facility] Address: [address] [place] [address] Performed By: #### 2 4323-8 ####[facility] LABCL[facility] [id number] [place] [address] [place] Chloride [Moles/Vol] 95 mmol/L Low 97-105 [facility] Comment on above: Order Comment: Speci men Type: BLOOD SPECIMENOrdering Facility: [facility] Address: [address] [place] [address] Performed By: #### 2 4323-8 ####[facility] LABCL[facility] [id number] [place] [address] [place] CO2 [Moles/Vol] 26 mmol/L Normal 22-30 [facility] Comment on above: Order Comment: Speci men Type: BLOOD SPECIMENOrdering Facility: [facility] Address: [address] [place] [address] Performed By: #### 2 4323-8 ####[facility] [id number] [place] [address] [place] Creatinine [Mass/Vol] 0.90 mg/dL Normal 0.58-0.96 [facility] Comment on above: Order Comment: Speci men Type: BLOOD SPECIMENOrdering Facility: [facility] Address: [address] [place] [address] Performed By: #### 2 4323-8 ####[facility] [id number] [place] [address] [place] Creatinine and Glomerular filtration rate.predicted panel (S/P/Bld) 71 mL/min/1.73m??? Normal >=60 [facility] Comment on above: Order Comment: Speci men Type: BLOOD SPECIMENOrdering Facility: [facility] Address: [address] [place] [address] Result Comment: Annelise mated Glomerular Filtration Rate [...] actual GFR. Performed By: #### 2 4323-8 ####[facility] [id number] [place] [address] [place] Glucose [Mass/Vol] 180 mg/dL High 74-99 [facility] Comment on above: Order Comment: Speci men Type: BLOOD SPECIMENOrdering Facility: [facility] Address: [address] [place] [address] Result Comment: The [place] Diabetes Association (ADA) provides guidance for cutoff [...] Standards of Medical Care in Diabetes 2016, [place] [employer] Association. Diabetes Care. 2016.39(Suppl 1). Performed By: #### 2 4323-8 ####[facility] [id number] [place] [address] [place] Potassium [Moles/Vol] 4.1 mmol/L Normal 3.7-5.1 [facility] Comment on above: Order Comment: Speci men Type: BLOOD SPECIMENOrdering Facility: [facility] Address: [address] [place] [address] Performed By: #### 2 4323-8 ####[facility] [id number] [place] [id number] [place] Protein [Mass/Vol] 6.6 g/dL Normal 6.3-8.0 [facility] Comment on above: Order Comment: Speci men Type: BLOOD SPECIMENOrdering Facility: [facility] Address: [address] [place] [address] Performed By: #### 2 4323-8 ####[facility] LABCL[facility] [id number] [place] [address] [place] Sodium [Moles/Vol] 135 mmol/L Low 136-144 [facility] Comment on above: Order Comment: Speci men Type: BLOOD SPECIMENOrdering Facility: [facility] Address: [address] [place] [address] Performed By: #### 2 4323-8 ####[facility]CL[facility] [id number] [place] [address] [place] Urea nitrogen [Mass/Vol] 19 mg/dL Normal 7-21 [facility] Comment on above: Order Comment: Speci men Type: BLOOD SPECIMENOrdering Facility: [facility] Address: [address] [place] [address] Performed By: #### 2 4323-8 ####[facility] [id number] [place] [id number] [place] ECG COMPLETEon 08-07-2023 ECG COMPLETE Normal [facility] XR CHEST 2V FRONTAL/LATon XR CHEST 2V FRONTAL/LAT Normal [facility] XR Chest 2 Viewson [facility] CNPNon 08-06-2023 CNPN Normal [facility] ALLIED HEALTHon 08-02-2023 ALLIED HEALTH Normal [facility] CASE MANAGEMon 08-02-2023 CASE MANAGEM Normal [facility] CASE MANAGEM Normal [facility] CBC panel Auto (Bld)on 08-02 Erythrocyte distribution width (RBC) [Ratio] 12.1 % Normal 11.5-15.0 [facility] Comment on above: Order Comment: Speci men Type: BLOOD SPECIMENOrdering Facility: [facility] Address: [address] [place] [address] Performed By: #### 5 8410-2 ####[facility] [id number] [place] [address] [place] Hematocrit (Bld) [Volume fraction] 26.9 % Low 36.0-46.0 [facility] Comment on above: Order Comment: Speci men Type: BLOOD SPECIMENOrdering Facility: [facility] Address: [address] [place] [address] Performed By: #### 5 8410-2 ####[facility]CL[facility] [id number] [place] [address] [place] Hemoglobin (Bld) [Mass/Vol] 9.1 g/dL Low 11.5-15.5 [facility] Comment on above: Order Comment: Speci men Type: BLOOD SPECIMENOrdering Facility: [facility] Address: [address] [place] [address] Performed By: #### 5 8410-2 ####[facility]CL[facility] [id number] [place] [address] [place] MCH (RBC) [Entitic mass] 31.3 pg Normal 26.0-34.0 [facility] Comment on above: Order Comment: Speci men Type: BLOOD SPECIMENOrdering Facility: [facility] Address: [address] [place] [address] Performed By: #### 5 8410-2 ####[facility] [id number] [place] [address] [place] MCHC (RBC) [Mass/Vol] 33.8 g/dL Normal 30.5-36.0 [facility] Comment on above: Order Comment: Speci men Type: BLOOD SPECIMENOrdering Facility: [facility] Address: [address] [place] [address] Performed By: #### 5 8410-2 ####[facility]CL[facility] [id number] [place] [address] [place] MCV (RBC) [Entitic vol] 92.4 fL Normal 80.0-100.0 [facility] Comment on above: Order Comment: Speci men Type: BLOOD SPECIMENOrdering Facility: [facility] Address: [address] [place] [address] Performed By: #### 5 8410-2 ####[facility] [id number] [place] [address] [place] Nucleated RBC (Bld) [#/Vol] 10*3/uL Normal <0.01 [facility] Comment on above: Order Comment: Speci men Type: BLOOD SPECIMENOrdering Facility: [facility] Address: [address] [place] [address] Performed By: #### 5 8410-2 ####[facility] [id number] [place] [address] [place] Platelet mean volume (Bld) [Entitic vol] 10.0 fL Normal 9.0-12.7 [facility] Comment on above: Order Comment: Speci men Type: BLOOD SPECIMENOrdering Facility: [facility] Address: [address] [place] [address] Performed By: #### 5 8410-2 ####[facility] [id number] [place] [address] [place] Platelets (Bld) [#/Vol] 224 10*3/uL Normal 150-400 [facility] Comment on above: Order Comment: Speci men Type: BLOOD SPECIMENOrdering Facility: [facility] Address: [address] [place] [address] Performed By: #### 5 8410-2 ####[facility] [id number] [place] [address] [place] RBC (Bld) [#/Vol] 2.91 10*6/uL Low 3.90-5.20 [facility] Comment on above: Order Comment: Speci men Type: BLOOD SPECIMENOrdering Facility: [facility] Address: [address] [place] [address] Performed By: #### 5 8410-2 ####[facility] LABCLIA [id number] [place] [address] [place] WBC (Bld) [#/Vol] 6.35 10*3/uL Normal 3.70-11.00 [facility] Comment on above: Order Comment: Speci men Type: BLOOD SPECIMENOrdering Facility: [facility] Address: [address] [place] [address] Performed By: #### 5 8410-2 ####[facility] LABCLIA [id number] [place] [address] [place] Comprehensive metabolic 2000 panelon 08-02-2023 Albumin [Mass/Vol] 3.3 g/dL Low 3.9-4.9 [facility] Comment on above: Order Comment: Speci men Type: BLOOD SPECIMENOrdering Facility: [facility] Address: [address] [place] [address] Performed By: #### 2 4323-8, ####[facility] LABCLIA [id number] [place] [address] [place] ALP [Catalytic activity/Vol] 60 U/L Normal 34-123 [facility] Comment on above: Order Comment: Speci men Type: BLOOD SPECIMENOrdering Facility: [facility] Address: [address] [place] [address] Performed By: #### 2 4323-8, ####[facility] LABCLIA [id number] [facility] [place] [id number] [place] ALT [Catalytic activity/Vol] 14 U/L Normal 7-38 [facility] Comment on above: Order Comment: Speci men Type: BLOOD SPECIMENOrdering Facility: [facility] Address: [address] [place] [address] Performed By: #### 2 4323-8, 47760-9 ####[facility] LABCLIA [id number] [place] [address] [place] Anion gap [Moles/Vol] 9 mmol/L Normal 9-18 [facility] Comment on above: Order Comment: Speci men Type: BLOOD SPECIMENOrdering Facility: [facility] Address: [address] [place] [address] Performed By: #### 2 4323-8, ####[facility] LABCLIA [id number] [place] [address] [place] AST [Catalytic activity/Vol] 19 U/L Normal 13-35 [facility] Comment on above: Order Comment: Speci men Type: BLOOD SPECIMENOrdering Facility: [facility] Address: [address] [place] [address] Performed By: #### 2 4323-8, ####[facility] LABCLIA [id number] [place] [address] [place] Bilirubin [Mass/Vol] 0.5 mg/dL Normal 0.2-1.3 [facility] Comment on above: Order Comment: Speci men Type: BLOOD SPECIMENOrdering Facility: [facility] Address: [address] [place] [address] Performed By: #### 2 4323-8, ####[facility] LABCLIA [id number] [place] [address] [place] Calcium [Mass/Vol] 9.8 mg/dL Normal 8.5-10.2 [facility] Comment on above: Order Comment: Speci men Type: BLOOD SPECIMENOrdering Facility: [facility] Address: [address] [place] [address] Performed By: #### 2 4323-8, ####[facility] LABCLIA [id number] [place] [id number] [place] Chloride [Moles/Vol] 93 mmol/L Low 97-105 [facility] Comment on above: Order Comment: Speci men Type: BLOOD SPECIMENOrdering Facility: [facility] Address: [address] [place] [address] Performed By: #### 2 4323-8, ####[facility] LABCLIA [id number] [place] [address] [place] CO2 [Moles/Vol] 26 mmol/L Normal 22-30 [facility] Comment on above: Order Comment: Speci men Type: BLOOD SPECIMENOrdering Facility: [facility] Address: [address] [place] [address] Performed By: #### 2 4323-8, ####[facility] LABCLIA [id number] [place] [address] [place] Creatinine [Mass/Vol] 0.55 mg/dL Low 0.58-0.96 [facility] Comment on above: Order Comment: Speci men Type: BLOOD SPECIMENOrdering Facility: [facility] Address: [address] [place] [address] Performed By: #### 2 4323-8, ####[facility] LABCLIA [id number] [address] [place] Creatinine and Glomerular filtration rate.predicted panel (S/P/Bld) 102 mL/min/1.73m??? Normal >=60 [facility] Comment on above: Order Comment: Speci men Type: BLOOD SPECIMENOrdering Facility: [facility] Address: [address] [place] [address] Result Comment: Annelise mated Glomerular Filtration Rate [...] reflect actual GFR. Performed By: #### 2 4323- ####[facility] LABCLIA [id number] [address] [address] [place] Glucose [Mass/Vol] 224 mg/dL High 74-99 [facility] Comment on above: Order Comment: Speci men Type: BLOOD SPECIMENOrdering Facility: [facility] Address: [address] [place] [address] Result Comment: The [place] [employer] (ADA) provides guidance for cutoff [...] Standards of Medical Care in Diabetes 2016, [employer] [employer]. Diabetes Care. 2016.39(Suppl 1). Performed By: #### 2 4328, ####[facility] LABIA [id number] [place] [address] [place] Potassium [Moles/Vol] 4.4 mmol/L Normal 3.7-5.1 [facility] Comment on above: Order Comment: Speci men Type: BLOOD SPECIMENOrdering Facility: [facility] Address: [address] [place] [address] Performed By: #### 2 4328, ####[facility] LABIA [id number] [place] [address] [place] Protein [Mass/Vol] 6.2 g/dL Low 6.3-8.0 [facility] Comment on above: Order Comment: Speci men Type: BLOOD SPECIMENOrdering Facility: [facility] Address: [address] [place] [address] Performed By: #### 2 4323-01, ####[facility] LABCLIA [id number] [address] [address] [place] Sodium [Moles/Vol] 128 mmol/L Low 136-144 [facility] Comment on above: Order Comment: Speci men Type: BLOOD SPECIMENOrdering Facility: [facility] Address: [address] [place] [address] Performed By: #### 2 4323-8, ####[facility] LABCLIA [id number] [place] [id number] [place] Urea nitrogen [Mass/Vol] 13 mg/dL Normal 7-21 [facility] Comment on above: Order Comment: Speci men Type: BLOOD SPECIMENOrdering Facility: [facility] Address: [address] [place] [address] Performed By: #### 2 43238, ####[facility] LABCLIA [id number] [place] [id number] [place] ECG COMPLETEon 08-02-2023 ECG COMPLETE Normal [facility] Magnesium SerPl-mCncon 08-02 Magnesium [Mass/Vol] 2.0 mg/dL Normal 1.7-2.3 [facility] Comment on above: Order Comment: Speci men Type: BLOOD SPECIMENOrdering Facility: [facility] Address: [address] [place] [address] Performed By: #### 2 4323-8, ####[facility] LABCLIA [id number] [address] [address] [place] THERAPY NTon 08-02-2023 THERAPY NT Normal [facility] THERAPY NT Normal [facility] XR CHEST 1V FRONTALon 2023 XR CHEST 1V FRONTAL Normal [facility] CASE MANAGEMon 08-01-2023 CASE MANAGEM Normal [facility] CBC panel Auto (Bld)on 08-01 Erythrocyte distribution width (RBC) [Ratio] 12.0 % Normal 11.5-15.0 [facility] Comment on above: Order Comment: Speci men Type: BLOOD SPECIMENOrdering Facility: [facility] Address: [address] [place] [address] Performed By: #### 5 8410-2 ####[facility] LABIA [id number] [place] [address] [place] Hematocrit (Bld) [Volume fraction] 30.5 % Low 36.0-46.0 [facility] Comment on above: Order Comment: Speci men Type: BLOOD SPECIMENOrdering Facility: [facility] Address: [address] [place] [address] Performed By: #### 5 8410-2 ####[facility] LABIA [id number] [place] [address] [place] Hemoglobin (Bld) [Mass/Vol] 10.5 g/dL Low 11.5-15.5 [facility] Comment on above: Order Comment: Speci men Type: BLOOD SPECIMENOrdering Facility: [facility] Address: [address] [place] [address] Performed By: #### 5 8410-2 ####[facility] LABIA [id number] [place] [address] [place] MCH (RBC) [Entitic mass] 31.4 pg Normal 26.0-34.0 [facility] Comment on above: Order Comment: Speci men Type: BLOOD SPECIMENOrdering Facility: [facility] Address: [address] [place] [address] Performed By: #### 5 8410-2 ####[facility] LABIA [id number] [place] [address] [place] MCHC (RBC) [Mass/Vol] 34.4 g/dL Normal 30.5-36.0 [facility] Comment on above: Order Comment: Speci men Type: BLOOD SPECIMENOrdering Facility: [facility] Address: [address] [place] [address] Performed By: #### 5 8410-2 ####[facility] LABCLIA [id number] [place] [address] [place] MCV (RBC) [Entitic vol] 91.3 fL Normal 80.0-100.0 [facility] Comment on above: Order Comment: Speci men Type: BLOOD SPECIMENOrdering Facility: [facility] Address: [address] [place] [address] Performed By: #### 5 8410-2 ####[facility] LABIA [id number] [place] [address] [place] Nucleated RBC (Bld) [#/Vol] 10*3/uL Normal <0.01 [facility] Comment on above: Order Comment: Speci men Type: BLOOD SPECIMENOrdering Facility: [facility] Address: [address] [place] [address] Performed By: #### 5 8410-2 ####[facility] LABIA [id number] [place] [address] [place] Platelet mean volume (Bld) [Entitic vol] 9.9 fL Normal 9.0-12.7 [facility] Comment on above: Order Comment: Speci men Type: BLOOD SPECIMENOrdering Facility: [facility] Address: [address] [place] [address] Performed By: #### 5 8410-2 ####[facility] LABCLIA [id number] [place] [address] [place] Platelets (Bld) [#/Vol] 208 10*3/uL Normal 150-400 [facility] Comment on above: Order Comment: Speci men Type: BLOOD SPECIMENOrdering Facility: [facility] Address: [address] [place] [address] Performed By: #### 5 8410-2 ####[facility] LABCLIA [id number] [place] [address] [place] RBC (Bld) [#/Vol] 3.34 10*6/uL Low 3.90-5.20 [facility] Comment on above: Order Comment: Speci men Type: BLOOD SPECIMENOrdering Facility: [facility] Address: [address] [place] [address] Performed By: #### 5 8410-2 ####[facility] LABIA [id number] [place] [address] [place] WBC (Bld) [#/Vol] 9.03 10*3/uL Normal 3.70-11.00 [facility] Comment on above: Order Comment: Speci men Type: BLOOD SPECIMENOrdering Facility: [facility] Address: [address] [place] [address] Performed By: #### 5 8410-2 ####[facility] LABIA [id number] [place] [address] [place] CNDSon 08-01-2023 CNDS Normal [facility] Comprehensive metabolic 2000 panelon 08-01-2023 Albumin [Mass/Vol] 3.3 g/dL Low 3.9-4.9 [facility] Comment on above: Order Comment: Speci men Type: BLOOD SPECIMENOrdering Facility: [facility] Address: [address] [place] [address] Performed By: #### 1 9123-9, 44799-6 ####[facility] LABCLIA [id number] [place] [address] [place] ALP [Catalytic activity/Vol] 60 U/L Normal 34-123 [facility] Comment on above: Order Comment: Speci men Type: BLOOD SPECIMENOrdering Facility: [facility] Address: [address] [place] [address] Performed By: #### 1 9123-9, 02085-4 ####[facility] LABCLIA [id number] [place] [address] [place] ALT [Catalytic activity/Vol] 9 U/L Normal 7-38 [facility] Comment on above: Order Comment: Speci men Type: BLOOD SPECIMENOrdering Facility: [facility] Address: [address] [place] [address] Performed By: #### 1 9123-9, 60627-4 ####[facility] LABCLIA [id number] [place] [address] [place] Anion gap [Moles/Vol] 9 mmol/L Normal 9-18 [facility] Comment on above: Order Comment: Speci men Type: BLOOD SPECIMENOrdering Facility: [facility] Address: [address] [place] [address] Performed By: #### 1 9123-9, 90986-0 ####[facility] LABCLIA [id number] [place] [address] [place] AST [Catalytic activity/Vol] 9 U/L Low 13-35 [facility] Comment on above: Order Comment: Speci men Type: BLOOD SPECIMENOrdering Facility: [facility] Address: [address] [place] [address] Performed By: #### 1 9123-9, 96482-8 ####[facility] LABCLIA [id number] [place] [address] [place] Bilirubin [Mass/Vol] 0.6 mg/dL Normal 0.2-1.3 [facility] Comment on above: Order Comment: Speci men Type: BLOOD SPECIMENOrdering Facility: [facility] Address: [address] [place] [address] Performed By: #### 1 9123-9, 00859-5 ####[facility] LABCLIA [id number] [place] [address] [place] Calcium [Mass/Vol] 9.7 mg/dL Normal 8.5-10.2 [facility] Comment on above: Order Comment: Speci men Type: BLOOD SPECIMENOrdering Facility: [facility] Address: [address] [place] [address] Performed By: #### 1 9123-9, ####[facility] LABCLIA [id number] [place] [address] [place] Chloride [Moles/Vol] 95 mmol/L Low 97-105 [facility] Comment on above: Order Comment: Speci men Type: BLOOD SPECIMENOrdering Facility: [facility] Address: [address] [place] [address] Performed By: #### 1 9123-9, ####[facility] LABCLIA [id number] [place] [address] [place] CO2 [Moles/Vol] 27 mmol/L Normal 22-30 [facility] Comment on above: Order Comment: Speci men Type: BLOOD SPECIMENOrdering Facility: [facility] Address: [address] [place] [address] Performed By: #### 1 9123-9, ####[facility] LABCLIA [id number] [place] [address] [place] Creatinine [Mass/Vol] 0.62 mg/dL Normal 0.58-0.96 [facility] Comment on above: Order Comment: Speci men Type: BLOOD SPECIMENOrdering Facility: [facility] Address: [address] [place] [address] Performed By: #### 1 9123-9, ####[facility] LABCLIA [id number] [place] [address] [place] Creatinine and Glomerular filtration rate.predicted panel (S/P/Bld) 99 mL/min/1.73m??? Normal >=60 [facility] Comment on above: Order Comment: Speci men Type: BLOOD SPECIMENOrdering Facility: [facility] Address: [address] [place] [address] Result Comment: Annelise mated Glomerular Filtration Rate [...] actual GFR. Performed By: #### 1 9123-9, ####[facility] [id number] [place] [address] [place] Glucose [Mass/Vol] 196 mg/dL High 74-99 [facility] Comment on above: Order Comment: Phyllis stein Type: BLOOD SPECIMENOrdering Facility: [facility] Address: [address] [place] [address] Result Comment: The [place] Diabetes [employer] (ADA) provides guidance for cutoff [...] Standards of Medical Care in Diabetes 2016, [place] [employer]. Diabetes Care. 2016.39(Suppl 1). Performed By: #### 1 9123-9, ####[facility] [id number] [place] [address] [place] Potassium [Moles/Vol] 4.2 mmol/L Normal 3.7-5.1 [facility] Comment on above: Order Comment: Phyllis stein Type: BLOOD SPECIMENOrdering Facility: [facility] Address: [address] [place] [address] Performed By: #### 1 9123-9, 78352-3 ####[facility] LABCLIA [id number] [place] [id number] [place] Protein [Mass/Vol] 6.0 g/dL Low 6.3-8.0 [facility] Comment on above: Order Comment: Speci men Type: BLOOD SPECIMENOrdering Facility: [facility] Address: [address] [place] [address] Performed By: #### 1 9123-9, 20806-5 ####[facility] LABCLIA [id number] [place] [address] [place] Sodium [Moles/Vol] 131 mmol/L Low 136-144 [facility] Comment on above: Order Comment: Speci men Type: BLOOD SPECIMENOrdering Facility: [facility] Address: [address] [place] [address] Performed By: #### 1 9123-9, 48954-6 ####[facility] LABCLIA [id number] [place] [address] [place] Urea nitrogen [Mass/Vol] 12 mg/dL Normal 7-21 [facility] Comment on above: Order Comment: Speci men Type: BLOOD SPECIMENOrdering Facility: [facility] Address: [address] [place] [address] Performed By: #### 1 9123-9, 56726-0 ####[facility] LABCLIA [id number] [place] [address] [place] ECG COMPLETEon 08-01-2023 ECG COMPLETE Normal [facility] Magnesium SerPl-mCncon 08-01 Magnesium [Mass/Vol] 1.8 mg/dL Normal 1.7-2.3 [facility] Comment on above: Order Comment: Speci men Type: BLOOD SPECIMENOrdering Facility: [facility] Address: [address] [place] [address] Performed By: #### 1 9123-9, 69505-5 ####[facility] LABCLIA [id number] [place] [address] [place] XR CHEST 1V FRONTAL PORTon 0 08-01-2023 XR CHEST 1V FRONTAL PORT Normal [facility] CBC panel Auto (Bld)on 07-31 Erythrocyte distribution width (RBC) [Ratio] 12.0 % Normal 11.5-15.0 [facility] Comment on above: Order Comment: Speci men Type: BLOOD SPECIMENOrdering Facility: [facility] Address: [address] [place] [address] Performed By: #### 5 8410-2 ####[facility] LABIA [id number] [place] [address] [place] Hematocrit (Bld) [Volume fraction] 31.1 % Low 36.0-46.0 [facility] Comment on above: Order Comment: Speci men Type: BLOOD SPECIMENOrdering Facility: [facility] Address: [address] [place] [address] Performed By: #### 5 8410-2 ####[facility] LABIA [id number] [place] [address] [place] Hemoglobin (Bld) [Mass/Vol] 10.8 g/dL Low 11.5-15.5 [facility] Comment on above: Order Comment: Speci men Type: BLOOD SPECIMENOrdering Facility: [facility] Address: [address] [place] [address] Performed By: #### 5 8410-2 ####[facility] LABCLIA [id number] [place] [address] [place] MCH (RBC) [Entitic mass] 31.9 pg Normal 26.0-34.0 [facility] Comment on above: Order Comment: Speci men Type: BLOOD SPECIMENOrdering Facility: [facility] Address: [address] [place] [address] Performed By: #### 5 8410-2 ####[facility] LABCLIA [id number] [place] [address] [place] MCHC (RBC) [Mass/Vol] 34.7 g/dL Normal 30.5-36.0 [facility] Comment on above: Order Comment: Speci men Type: BLOOD SPECIMENOrdering Facility: [facility] Address: [address] [place] [address] Performed By: #### 5 8410-2 ####[facility] LABCLIA [id number] [place] [address] [place] MCV (RBC) [Entitic vol] 91.7 fL Normal 80.0-100.0 [facility] Comment on above: Order Comment: Speci men Type: BLOOD SPECIMENOrdering Facility: [facility] Address: [address] [place] [address] Performed By: #### 5 8410-2 ####[facility] LABIA [id number] [place] [address] [place] Nucleated RBC (Bld) [#/Vol] 10*3/uL Normal <0.01 [facility] Comment on above: Order Comment: Speci men Type: BLOOD SPECIMENOrdering Facility: [facility] Address: [address] [place] [address] Performed By: #### 5 8410-2 ####[facility] LABIA [id number] [place] [address] [place] Platelet mean volume (Bld) [Entitic vol] 10.3 fL Normal 9.0-12.7 [facility] Comment on above: Order Comment: Speci men Type: BLOOD SPECIMENOrdering Facility: [facility] Address: [address] [place] [address] Performed By: #### 5 8410-2 ####[facility] LABCLIA [id number] [place] [address] [place] Platelets (Bld) [#/Vol] 159 10*3/uL Normal 150-400 [facility] Comment on above: Order Comment: Speci men Type: BLOOD SPECIMENOrdering Facility: [facility] Address: [address] [place] [address] Performed By: #### 5 8410-2 ####[facility] LABCLIA [id number] [place] [address] [place] RBC (Bld) [#/Vol] 3.39 10*6/uL Low 3.90-5.20 [facility] Comment on above: Order Comment: Speci men Type: BLOOD SPECIMENOrdering Facility: [facility] Address: [address] [place] [address] Performed By: #### 5 8410-2 ####[facility] LABCLIA [id number] [place] [address] [place] WBC (Bld) [#/Vol] 9.25 10*3/uL Normal 3.70-11.00 [facility] Comment on above: Order Comment: Speci men Type: BLOOD SPECIMENOrdering Facility: [facility] Address: [address] [place] [address] Performed By: #### 5 8410-2 ####[facility] LABCLIA [id number] [place] [address] [place] Comprehensive metabolic 2000 panelon 07-31-2023 Albumin [Mass/Vol] 2.9 g/dL Low 3.9-4.9 [facility] Comment on above: Order Comment: Speci men Type: BLOOD SPECIMENOrdering Facility: [facility] Address: [address] [place] [address] Performed By: #### 2 4323-8 ####[facility] LABCLIA [id number] [place] [address] [place] ALP [Catalytic activity/Vol] 54 U/L Normal 34-123 [facility] Comment on above: Order Comment: Speci men Type: BLOOD SPECIMENOrdering Facility: [facility] Address: [address] [place] [id number] Performed By: #### 2 4323-8 ####[facility] LABCLIA [id number] [place] [id number] [place] ALT [Catalytic activity/Vol] 10 U/L Normal 7-38 [facility] Comment on above: Order Comment: Speci men Type: BLOOD SPECIMENOrdering Facility: [facility] Address: [address] [place], [place] [address] Performed By: #### 2 4323-8 ####[facility] LABCLIA [id number] [place] [address] [place] Anion gap [Moles/Vol] 9 mmol/L Normal 9-18 [facility] Comment on above: Order Comment: Speci men Type: BLOOD SPECIMENOrdering Facility: [facility] Address: [address] [place] [address] Performed By: #### 2 4323-8 ####[facility] LABCLIA [id number] [place] [address] [place] AST [Catalytic activity/Vol] 16 U/L Normal 13-35 [facility] Comment on above: Order Comment: Speci men Type: BLOOD SPECIMENOrdering Facility: [facility] Address: [address] [place], [place] [address] Performed By: #### 2 4323-8 ####[facility] LABCLIA [id number] [place] [address] [place] Bilirubin [Mass/Vol] 0.7 mg/dL Normal 0.2-1.3 [facility] Comment on above: Order Comment: Speci men Type: BLOOD SPECIMENOrdering Facility: [facility] Address: [address] [place], [place] [address] Performed By: #### 2 4323-8 ####[facility] LABCLIA [id number] [place] [address] [place] Calcium [Mass/Vol] 9.2 mg/dL Normal 8.5-10.2 [facility] Comment on above: Order Comment: Speci men Type: BLOOD SPECIMENOrdering Facility: [facility] Address: [address] [place] [address] Performed By: #### 2 4323-8 ####[facility] LABCLIA [id number] [place] [address] [place] Chloride [Moles/Vol] 98 mmol/L Normal 97-105 [facility] Comment on above: Order Comment: Speci men Type: BLOOD SPECIMENOrdering Facility: [facility] Address: [address] [place] [address] Performed By: #### 2 4323-8 ####[facility] LABCLIA [id number] [place] [address] [place] CO2 [Moles/Vol] 24 mmol/L Normal 22-30 [facility] Comment on above: Order Comment: Speci men Type: BLOOD SPECIMENOrdering Facility: [facility] Address: [address] [place] [address] Performed By: #### 2 4323-8 ####[facility] LABCLIA [id number] [place] [address] [place] Creatinine [Mass/Vol] 0.66 mg/dL Normal 0.58-0.96 [facility] Comment on above: Order Comment: Speci men Type: BLOOD SPECIMENOrdering Facility: [facility] Address: [address] [place] [address] Performed By: #### 2 4323-8 ####[facility] LABCLIA [id number] [place] [address] [place] Creatinine and Glomerular filtration rate.predicted panel (S/P/Bld) 97 mL/min/1.73m??? Normal >=60 [facility] Comment on above: Order Comment: Speci men Type: BLOOD SPECIMENOrdering Facility: [facility] Address: [address] [place] [address] Result Comment: Annelise mated Glomerular Filtration Rate [...] actual GFR. Performed By: #### 2 4323-8 ####[facility] LABCLIA [id number] [place] [address] [place] Glucose [Mass/Vol] 171 mg/dL High 74-99 [facility] Comment on above: Order Comment: Specmarko stein Type: BLOOD SPECIMENOrdering Facility: [facility] Address: [address] [place] [address] Result Comment: The [place] [employer] (ADA) provides guidance for cutoff [...] Standards of Medical Care in Diabetes 2016, [place] [employer]. Diabetes Care. 2016.39(Suppl 1). Performed By: #### 2 4323-8 ####[facility] LABCLIA [id number] [place] [address] [place] Potassium [Moles/Vol] 4.4 mmol/L Normal 3.7-5.1 [facility] Comment on above: Order Comment: Phyllis stein Type: BLOOD SPECIMENOrdering Facility: [facility] Address: [address] [place] [address] Performed By: #### 2 4323-8 ####[facility] LABCLIA [id number] [place] [address] [place] Protein [Mass/Vol] 5.5 g/dL Low 6.3-8.0 [facility] Comment on above: Order Comment: Speci men Type: BLOOD SPECIMENOrdering Facility: [facility] Address: [address] [place] [address] Performed By: #### 2 4323-8 ####[facility] LABCLIA [id number] [place] [address] [place] Sodium [Moles/Vol] 131 mmol/L Low 136-144 [facility] Comment on above: Order Comment: Speci men Type: BLOOD SPECIMENOrdering Facility: [facility] Address: [address] [place] [address] Performed By: #### 2 4323-8 ####[facility] LABIA [id number] [place] [address] [place] Urea nitrogen [Mass/Vol] 12 mg/dL Normal 7-21 [facility] Comment on above: Order Comment: Speci men Type: BLOOD SPECIMENOrdering Facility: [facility] Address: [address] [place] [address] Performed By: #### 2 4323-8 ####[facility] LABIA [id number] [place] [address] [place] NURSING PROGon 07-31-2023 NURSING PROG Normal [facility] XR CHEST 1V FRONTAL PORTon 0 07-31-2023 XR CHEST 1V FRONTAL PORT Normal [facility] ARTERIAL BLOOD GASESon 07-30 Base excess Calc (Bld) [Moles/Vol] 2 mmol/L Normal 0-2 [facility] Comment on above: Order Comment: Speci men Type: ARTERIAL BLOOD SPECIMENOrdering Facility: [facility] Address: [address] [place] [address] Performed By: #### A LLBG ####[facility] LABCLIA [id number] [place] [address] [place] Body temperature 98.6 [degF] Normal [facility] Comment on above: Order Comment: Speci men Type: ARTERIAL BLOOD SPECIMENOrdering Facility: [facility] Address: [address] [place] [address] Performed By: #### A LLBG ####[facility] LABCLIA [id number] [place] [address] [place] Calcium.ionized (Bld) [Mass/Vol] 1.22 mmol/L Normal 1.08-1.30 [facility] Comment on above: Order Comment: Speci men Type: ARTERIAL BLOOD SPECIMENOrdering Facility: [facility] Address: [address] [place] [address] Performed By: #### A LLBG ####[facility] LABCLIA [id number] [place] [address] [place] Calcium.ionized adjusted to pH 7.4 (BldA) [Moles/Vol] 1.26 mmol/L Normal 1.08-1.30 [facility] Comment on above: Order Comment: Speci men Type: ARTERIAL BLOOD SPECIMENOrdering Facility: [facility] Address: [address] [place] [address] Performed By: #### A LLBG ####[facility] LABCLIA [id number] [place] [address] [place] Carboxyhemoglobin (BldA) [Mass fraction] 1.8 % Normal 0.0-2.0 [facility] Comment on above: Order Comment: Speci men Type: ARTERIAL BLOOD SPECIMENOrdering Facility: [facility] Address: [address] [place] [address] Result Comment: Carb oxyhemoglobin Reference Range for Smokers: 2.0-8.0% Performed By: #### A LLBG ####[facility] LABCLIA [id number] [place] [address] [place] CO2 (Bld) [Partial pressure] 37 mm Hg Normal 36-46 [facility] Comment on above: Order Comment: Speci men Type: ARTERIAL BLOOD SPECIMENOrdering Facility: [facility] Address: [address] [place] [address] Performed By: #### A LLBG ####[facility] LABCLIA [id number] [place] [address] [place] Glucose [Mass/Vol] 146 mg/dL High 60-105 [facility] Comment on above: Order Comment: Speci men Type: ARTERIAL BLOOD SPECIMENOrdering Facility: [facility] Address: [address] [place] [address] Performed By: #### A LLBG ####[facility] LABCLIA [id number] [place] [address] [place] HCO3 (Bld) [Moles/Vol] 26 mmol/L Normal 22-26 [facility] Comment on above: Order Comment: Speci men Type: ARTERIAL BLOOD SPECIMENOrdering Facility: [facility] Address: [address] [place] [address] Performed By: #### A LLBG ####[facility] LABCLIA [id number] [place] [address] [place] Hematocrit (Bld) [Volume fraction] 34.4 % Low 36.0-46.0 [facility] Comment on above: Order Comment: Speci men Type: ARTERIAL BLOOD SPECIMENOrdering Facility: [facility] Address: [address] [place] [address] Performed By: #### A LLBG ####[facility] LABCLIA [id number] [place] [address] [place] Hemoglobin (Bld) [Mass/Vol] 11.1 g/dL Low 11.5-15.5 [facility] Comment on above: Order Comment: Speci men Type: ARTERIAL BLOOD SPECIMENOrdering Facility: [facility] Address: [address] [place] [address] Performed By: #### A LLBG ####[facility] LABCLIA [id number] [place] [address] [place] Lactate [Moles/Vol] 0.9 mmol/L Normal 0.5-2.2 [facility] Comment on above: Order Comment: Speci men Type: ARTERIAL BLOOD SPECIMENOrdering Facility: [facility] Address: [address] [place] [address] Performed By: #### A LLBG ####[facility] LABCLIA [id number] [place] [address] [place] LITERS 1 Liters/min Normal [facility] Comment on above: Order Comment: Speci men Type: ARTERIAL BLOOD SPECIMENOrdering Facility: [facility] Address: [address] [place] [address] Performed By: #### A LLBG ####[facility] LABCLIA [id number] [place] [address] [place] Methemoglobin (Bld) [Mass fraction] 1.4 % Normal 0.0-1.5 [facility] Comment on above: Order Comment: Speci men Type: ARTERIAL BLOOD SPECIMENOrdering Facility: [facility] Address: [address] [place] [address] Performed By: #### A LLBG ####[facility] LABIA [id number] [place] [address] [place] O2 THERAPY [place] = Nasal Cannula Normal [facility] Comment on above: Order Comment: Speci men Type: ARTERIAL BLOOD SPECIMENOrdering Facility: [facility] Address: [address] [place] [address] Performed By: #### A LLBG ####[facility] LABCLIA [id number] [place] [address] [place] Oxygen (Bld) [Partial pressure] 87 mm Hg Normal 85-95 [facility] Comment on above: Order Comment: Speci men Type: ARTERIAL BLOOD SPECIMENOrdering Facility: [facility] Address: [address] [place] [address] Performed By: #### A LLBG ####[facility] LABIA [id number] [place] [address] [place] Oxyhemoglobin (BldA) [Mass fraction] 94 % Low 95-98 [facility] Comment on above: Order Comment: Speci men Type: ARTERIAL BLOOD SPECIMENOrdering Facility: [facility] Address: [address] [place] [address] Performed By: #### A LLBG ####[facility] LABIA [id number] [place] [address] [place] pH (Bld) 7.46 [pH] High 7.35-7.45 [facility] Comment on above: Order Comment: Speci men Type: ARTERIAL BLOOD SPECIMENOrdering Facility: [facility] Address: [address] [place] [address] Performed By: #### A LLBG ####[facility] LABIA [id number] [place] [address] [place] Potassium [Moles/Vol] 4.3 mmol/L Normal 3.5-5.0 [facility] Comment on above: Order Comment: Speci men Type: ARTERIAL BLOOD SPECIMENOrdering Facility: [facility] Address: [address] [place] [address] Performed By: #### A LLBG ####[facility] LABCLIA [id number] [place] [address] [place] Sodium [Moles/Vol] 128 mmol/L Low 136-144 [facility] Comment on above: Order Comment: Speci men Type: ARTERIAL BLOOD SPECIMENOrdering Facility: [facility] Address: [address] [place] [address] Performed By: #### A LLBG ####[facility] LABCLIA [id number] [place] [address] [place] Base excess Calc (Bld) [Moles/Vol] 2 mmol/L Normal 0-2 [facility] Comment on above: Order Comment: Speci men Type: ARTERIAL BLOOD SPECIMENOrdering Facility: [facility] Address: [address] [place] [address] Performed By: #### A LLBG ####[facility] LABIA [id number] [place] [address] [place] Body temperature 98.6 [degF] Normal [facility] Comment on above: Order Comment: Speci men Type: ARTERIAL BLOOD SPECIMENOrdering Facility: [facility] Address: [address] [place] [address] Performed By: #### A LLBG ####[facility] LABIA [id number] [place] [address] [place] Calcium.ionized (Bld) [Mass/Vol] 1.21 mmol/L Normal 1.08-1.30 [facility] Comment on above: Order Comment: Speci men Type: ARTERIAL BLOOD SPECIMENOrdering Facility: [facility] Address: [address] [place] [address] Performed By: #### A LLBG ####[facility] LABIA [id number] [place] [address] [place] Calcium.ionized adjusted to pH 7.4 (BldA) [Moles/Vol] 1.23 mmol/L Normal 1.08-1.30 [facility] Comment on above: Order Comment: Speci men Type: ARTERIAL BLOOD SPECIMENOrdering Facility: [facility] Address: [address] [place] [address] Performed By: #### A LLBG ####[facility] LABCLIA [id number] [place] [address] [place] Carboxyhemoglobin (BldA) [Mass fraction] 1.6 % Normal 0.0-2.0 [facility] Comment on above: Order Comment: Speci men Type: ARTERIAL BLOOD SPECIMENOrdering Facility: [facility] Address: [address] [place] [address] Result Comment: Carb oxyhemoglobin Reference Range for Smokers: 2.0-8.0% Performed By: #### A LLBG ####[facility] LABCLIA [id number] [place] [address] [place] CO2 (Bld) [Partial pressure] 39 mm Hg Normal 36-46 [facility] Comment on above: Order Comment: Speci men Type: ARTERIAL BLOOD SPECIMENOrdering Facility: [facility] Address: [address] [place] [address] Performed By: #### A LLBG ####[facility] LABCLIA [id number] [place] [address] [place] Glucose [Mass/Vol] 168 mg/dL High 60-105 [facility] Comment on above: Order Comment: Speci men Type: ARTERIAL BLOOD SPECIMENOrdering Facility: [facility] Address: [address] [place] [address] Performed By: #### A LLBG ####[facility] LABCLIA [id number] [place] [address] [place] HCO3 (Bld) [Moles/Vol] 26 mmol/L Normal 22-26 [facility] Comment on above: Order Comment: Speci men Type: ARTERIAL BLOOD SPECIMENOrdering Facility: [facility] Address: [address] [place] [address] Performed By: #### A LLBG ####[facility] LABCLIA [id number] [place] [address] [place] Hematocrit (Bld) [Volume fraction] 35.0 % Low 36.0-46.0 [facility] Comment on above: Order Comment: Speci men Type: ARTERIAL BLOOD SPECIMENOrdering Facility: [facility] Address: [address] [place] [address] Performed By: #### A LLBG ####[facility] LABIA [id number] [place] [address] [place] Hemoglobin (Bld) [Mass/Vol] 11.4 g/dL Low 11.5-15.5 [facility] Comment on above: Order Comment: Speci men Type: ARTERIAL BLOOD SPECIMENOrdering Facility: [facility] Address: [address] [place] [address] Performed By: #### A LLBG ####[facility] LABIA [id number] [place] [address] [place] Lactate [Moles/Vol] 1.0 mmol/L Normal 0.5-2.2 [facility] Comment on above: Order Comment: Speci men Type: ARTERIAL BLOOD SPECIMENOrdering Facility: [facility] Address: [address] [place] [address] Performed By: #### A LLBG ####[facility] LABIA [id number] [place] [address] [place] LITERS 1 Liters/min Normal [facility] Comment on above: Order Comment: Speci men Type: ARTERIAL BLOOD SPECIMENOrdering Facility: [facility] Address: [address] [place] [address] Performed By: #### A LLBG ####[facility] [id number] [place] [address] [place] Methemoglobin (Bld) [Mass fraction] 1.4 % Normal 0.0-1.5 [facility] Comment on above: Order Comment: Speci men Type: ARTERIAL BLOOD SPECIMENOrdering Facility: [facility] Address: [address] [place] [address] Performed By: #### A LLBG ####[facility] LABIA [id number] [place] [address] [place] O2 THERAPY [place] = Nasal Cannula Normal [facility] Comment on above: Order Comment: Speci men Type: ARTERIAL BLOOD SPECIMENOrdering Facility: [facility] Address: [address] [place] [address] Performed By: #### A LLBG ####[facility] LABCLIA [id number] [place] [id number] [place] Oxygen (Bld) [Partial pressure] 99 mm Hg High 85-95 [facility] Comment on above: Order Comment: Speci men Type: ARTERIAL BLOOD SPECIMENOrdering Facility: [facility] Address: [address] [place] [address] Performed By: #### A LLBG ####[facility] LABCLIA [id number] [place] [address] [place] Oxyhemoglobin (BldA) [Mass fraction] 95 % Normal 95-98 [facility] Comment on above: Order Comment: Speci men Type: ARTERIAL BLOOD SPECIMENOrdering Facility: [facility] Address: [address] [place] [address] Performed By: #### A LLBG ####[facility] LABCLIA [id number] [place] [address] [place] pH (Bld) 7.43 [pH] Normal 7.35-7.45 [facility] Comment on above: Order Comment: Speci men Type: ARTERIAL BLOOD SPECIMENOrdering Facility: [facility] Address: [address] [place] [address] Performed By: #### A LLBG ####[facility] LABCLIA [id number] [place] [address] [place] Potassium [Moles/Vol] 4.2 mmol/L Normal 3.5-5.0 [facility] Comment on above: Order Comment: Speci men Type: ARTERIAL BLOOD SPECIMENOrdering Facility: [facility] Address: [address] [place], [place] [address] Performed By: #### A LLBG ####[facility] LABCLIA [id number] [place] [address] [place] Sodium [Moles/Vol] 128 mmol/L Low 136-144 [facility] Comment on above: Order Comment: Speci men Type: ARTERIAL BLOOD SPECIMENOrdering Facility: [facility] Address: [address] [place] [address] Performed By: #### A LLBG ####[facility] LABCLIA [id number] [place] [address] [place] Base excess Calc (Bld) [Moles/Vol] 1 mmol/L Normal 0-2 [facility] Comment on above: Order Comment: Speci men Type: ARTERIAL BLOOD SPECIMENOrdering Facility: [facility] Address: [address] [place] [address] Performed By: #### A LLBG ####[facility] LABCLIA [id number] [place] [address] [place] Body temperature 98.6 [degF] Normal [facility] Comment on above: Order Comment: Speci men Type: ARTERIAL BLOOD SPECIMENOrdering Facility: [facility] Address: [address] [place] [address] Performed By: #### A LLBG ####[facility] LABCLIA [id number] [place] [address] [place] Calcium.ionized (Bld) [Mass/Vol] 1.24 mmol/L Normal 1.08-1.30 [facility] Comment on above: Order Comment: Speci men Type: ARTERIAL BLOOD SPECIMENOrdering Facility: [facility] Address: [address] [place] [address] Performed By: #### A LLBG ####[facility] LABCLIA [id number] [place] [address] [place] Calcium.ionized adjusted to pH 7.4 (BldA) [Moles/Vol] 1.26 mmol/L Normal 1.08-1.30 [facility] Comment on above: Order Comment: Speci men Type: ARTERIAL BLOOD SPECIMENOrdering Facility: [facility] Address: [address] [place] [address] Performed By: #### A LLBG ####[facility] LABCLIA [id number] [place] [address] [place] Carboxyhemoglobin (BldA) [Mass fraction] 1.9 % Normal 0.0-2.0 [facility] Comment on above: Order Comment: Speci men Type: ARTERIAL BLOOD SPECIMENOrdering Facility: [facility] Address: [address] [place] [address] Result Comment: Carb oxyhemoglobin Reference Range for Smokers: 2.0-8.0% Performed By: #### A LLBG ####[facility] LABCLIA [id number] [place] [address] [place] CO2 (Bld) [Partial pressure] 38 mm Hg Normal 36-46 [facility] Comment on above: Order Comment: Speci men Type: ARTERIAL BLOOD SPECIMENOrdering Facility: [facility] Address: [address] [place] [address] Performed By: #### A LLBG ####[facility] LABCLIA [id number] [place] [address] [place] Glucose [Mass/Vol] 161 mg/dL High 60-105 [facility] Comment on above: Order Comment: Speci men Type: ARTERIAL BLOOD SPECIMENOrdering Facility: [facility] Address: [address] [place] [address] Performed By: #### A LLBG ####[facility] LABIA [id number] [place] [address] [place] HCO3 (Bld) [Moles/Vol] 25 mmol/L Normal 22-26 [facility] Comment on above: Order Comment: Speci men Type: ARTERIAL BLOOD SPECIMENOrdering Facility: [facility] Address: [address] [place] [address] Performed By: #### A LLBG ####[facility] LABCLIA [id number] [place] [address] [place] Hematocrit (Bld) [Volume fraction] 35.9 % Low 36.0-46.0 [facility] Comment on above: Order Comment: Speci men Type: ARTERIAL BLOOD SPECIMENOrdering Facility: [facility] Address: [address] [place] [address] Performed By: #### A LLBG ####[facility] LABCLIA [id number] [place] [address] [place] Hemoglobin (Bld) [Mass/Vol] 11.7 g/dL Normal 11.5-15.5 [facility] Comment on above: Order Comment: Speci men Type: ARTERIAL BLOOD SPECIMENOrdering Facility: [facility] Address: [address] [place] [address] Performed By: #### A LLBG ####[facility] LABIA [id number] [place] [address] [place] Lactate [Moles/Vol] 0.9 mmol/L Normal 0.5-2.2 [facility] Comment on above: Order Comment: Speci men Type: ARTERIAL BLOOD SPECIMENOrdering Facility: [facility] Address: [address] [place] [address] Performed By: #### A LLBG ####[facility] LABIA [id number] [place] [address] [place] LITERS 1 Liters/min Normal [facility] Comment on above: Order Comment: Speci men Type: ARTERIAL BLOOD SPECIMENOrdering Facility: [facility] Address: [address] [place] [address] Performed By: #### A LLBG ####[facility] LABCLIA [id number] [place] [address] [place] Methemoglobin (Bld) [Mass fraction] 0.7 % Normal 0.0-1.5 [facility] Comment on above: Order Comment: Speci men Type: ARTERIAL BLOOD SPECIMENOrdering Facility: [facility] Address: [address] [place] [address] Performed By: #### A LLBG ####[facility] LABCLIA [id number] [place] [address] [place] O2 THERAPY [place] = Nasal Cannula Normal [facility] Comment on above: Order Comment: Speci men Type: ARTERIAL BLOOD SPECIMENOrdering Facility: [facility] Address: [address] [place] [address] Performed By: #### A LLBG ####[facility] LABCLIA [id number] [place] [address] [place] Oxygen (Bld) [Partial pressure] 77 mm Hg Low 85-95 [facility] Comment on above: Order Comment: Speci men Type: ARTERIAL BLOOD SPECIMENOrdering Facility: [facility] Address: [address] [place] [address] Performed By: #### A LLBG ####[facility] LABCLIA [id number] [place] [address] [place] Oxyhemoglobin (BldA) [Mass fraction] 94 % Low 95-98 [facility] Comment on above: Order Comment: Speci men Type: ARTERIAL BLOOD SPECIMENOrdering Facility: [facility] Address: [address] [place] [address] Performed By: #### A LLBG ####[facility] LABCLIA [id number] [place] [address] [place] pH (Bld) 7.42 [pH] Normal 7.35-7.45 [facility] Comment on above: Order Comment: Speci men Type: ARTERIAL BLOOD SPECIMENOrdering Facility: [facility] Address: [address] [place] [address] Performed By: #### A LLBG ####[facility] LABCLIA [id number] [place] [address] [place] Potassium [Moles/Vol] 3.9 mmol/L Normal 3.5-5.0 [facility] Comment on above: Order Comment: Speci men Type: ARTERIAL BLOOD SPECIMENOrdering Facility: [facility] Address: [address] [place] [address] Performed By: #### A LLBG ####[facility] LABCLIA [id number] [place] [address] [place] Sodium [Moles/Vol] 129 mmol/L Low 136-144 [facility] Comment on above: Order Comment: Speci men Type: ARTERIAL BLOOD SPECIMENOrdering Facility: [facility] Address: [address] [place] [address] Performed By: #### A LLBG ####[facility] LABCLIA [id number] [place] [address] [place] Base excess Calc (Bld) [Moles/Vol] 0 mmol/L Normal 0-2 [facility] Comment on above: Order Comment: Speci men Type: ARTERIAL BLOOD SPECIMENOrdering Facility: [facility] Address: [address] [place] [address] Performed By: #### A LLBG ####[facility] LABIA [id number] [place] [address] [place] Body temperature 98.6 [degF] Normal [facility] Comment on above: Order Comment: Speci men Type: ARTERIAL BLOOD SPECIMENOrdering Facility: [facility] Address: [address] [place] [address] Performed By: #### A LLBG ####[facility] LABIA [id number] [place] [address] [place] Calcium.ionized (Bld) [Mass/Vol] 1.24 mmol/L Normal 1.08-1.30 [facility] Comment on above: Order Comment: Speci men Type: ARTERIAL BLOOD SPECIMENOrdering Facility: [facility] Address: [address] [place] [address] Performed By: #### A LLBG ####[facility] LABIA [id number] [place] [address] [place] Calcium.ionized adjusted to pH 7.4 (BldA) [Moles/Vol] 1.25 mmol/L Normal 1.08-1.30 [facility] Comment on above: Order Comment: Speci men Type: ARTERIAL BLOOD SPECIMENOrdering Facility: [facility] Address: [address] [place] [address] Performed By: #### A LLBG ####[facility] [id number] [place] [address] [place] Carboxyhemoglobin (BldA) [Mass fraction] 1.1 % Normal 0.0-2.0 [facility] Comment on above: Order Comment: Speci men Type: ARTERIAL BLOOD SPECIMENOrdering Facility: [facility] Address: [address] [place] [address] Result Comment: Carb oxyhemoglobin Reference Range for Smokers: 2.0-8.0% Performed By: #### A LLBG ####[facility] LABIA [id number] [place] [address] [place] CO2 (Bld) [Partial pressure] 38 mm Hg Normal 36-46 [facility] Comment on above: Order Comment: Speci men Type: ARTERIAL BLOOD SPECIMENOrdering Facility: [facility] Address: [address] [place] [address] Performed By: #### A LLBG ####[facility] LABIA [id number] [place] [address] [place] Glucose [Mass/Vol] 137 mg/dL High 60-105 [facility] Comment on above: Order Comment: Speci men Type: ARTERIAL BLOOD SPECIMENOrdering Facility: [facility] Address: [address] [place] [address] Performed By: #### A LLBG ####[facility] LABCLIA [id number] [place] [address] [place] HCO3 (Bld) [Moles/Vol] 24 mmol/L Normal 22-26 [facility] Comment on above: Order Comment: Speci men Type: ARTERIAL BLOOD SPECIMENOrdering Facility: [facility] Address: [address] [place] [address] Performed By: #### A LLBG ####[facility] LABCLIA [id number] [place] [address] [place] Hematocrit (Bld) [Volume fraction] 35.6 % Low 36.0-46.0 [facility] Comment on above: Order Comment: Speci men Type: ARTERIAL BLOOD SPECIMENOrdering Facility: [facility] Address: [address] [place] [address] Performed By: #### A LLBG ####[facility] LABCLIA [id number] [place] [address] [place] Hemoglobin (Bld) [Mass/Vol] 11.5 g/dL Normal 11.5-15.5 [facility] Comment on above: Order Comment: Speci men Type: ARTERIAL BLOOD SPECIMENOrdering Facility: [facility] Address: [address] [place] [address] Performed By: #### A LLBG ####[facility] LABCLIA [id number] [place] [address] [place] Lactate [Moles/Vol] 0.9 mmol/L Normal 0.5-2.2 [facility] Comment on above: Order Comment: Speci men Type: ARTERIAL BLOOD SPECIMENOrdering Facility: [facility] Address: [address] [place] [address] Performed By: #### A LLBG ####[facility] LABCLIA [id number] [place] [address] [place] LITERS 1 Liters/min Normal [facility] Comment on above: Order Comment: Speci men Type: ARTERIAL BLOOD SPECIMENOrdering Facility: [facility] Address: [address] [id number] Performed By: #### A LLBG ####[facility] LABCLIA [id number] [address] [address] [place] Methemoglobin (Bld) [Mass fraction] 1.2 % Normal 0.0-1.5 [facility] Comment on above: Order Comment: Speci men Type: ARTERIAL BLOOD SPECIMENOrdering Facility: [facility] Address: [address] [id number] Performed By: #### A LLBG ####[facility] LABCLIA [id number] [place] [address] [place] O2 THERAPY NC = Nasal Cannula Normal [facility] Comment on above: Order Comment: Speci men Type: ARTERIAL BLOOD SPECIMENOrdering Facility: [facility] Address: [address] [id number] Performed By: #### A LLBG ####[facility] LABCLIA [id number] [place] [address] [place] Oxygen (Bld) [Partial pressure] 98 mm Hg High 85-95 [facility] Comment on above: Order Comment: Speci men Type: ARTERIAL BLOOD SPECIMENOrdering Facility: [facility] Address: [address] [id number] Performed By: #### A LLBG ####[facility] LABCLIA [id number] [place] [id number] [place] Oxyhemoglobin (BldA) [Mass fraction] 95 % Normal 95-98 [facility] Comment on above: Order Comment: Speci men Type: ARTERIAL BLOOD SPECIMENOrdering Facility: [facility] Address: [address] [id number] Performed By: #### A LLBG ####[facility] LABCLIA [id number] [place] [address] [place] pH (Bld) 7.41 [pH] Normal 7.35-7.45 [facility] Comment on above: Order Comment: Speci men Type: ARTERIAL BLOOD SPECIMENOrdering Facility: [facility] Address: [address] [place] [address] Performed By: #### A LLBG ####[facility] LABIA [id number] [place] [address] [place] Potassium [Moles/Vol] 4.2 mmol/L Normal 3.5-5.0 [facility] Comment on above: Order Comment: Speci men Type: ARTERIAL BLOOD SPECIMENOrdering Facility: [facility] Address: [address] [place] [address] Performed By: #### A LLBG ####[facility] LABIA [id number] [place] [address] [place] Sodium [Moles/Vol] 129 mmol/L Low 136-144 [facility] Comment on above: Order Comment: Speci men Type: ARTERIAL BLOOD SPECIMENOrdering Facility: [facility] Address: [address] [place] [address] Performed By: #### A LLBG ####[facility] LABIA [id number] [place] [address] [place] Base excess Calc (Bld) [Moles/Vol] 2 mmol/L Normal 0-2 [facility] Comment on above: Order Comment: Speci men Type: ARTERIAL BLOOD SPECIMENOrdering Facility: [facility] Address: [address] [place] [address] Performed By: #### A LLBG ####[facility] LABIA [id number] [place] [address] [place] Body temperature 98.6 [degF] Normal [facility] Comment on above: Order Comment: Speci men Type: ARTERIAL BLOOD SPECIMENOrdering Facility: [facility] Address: [address] [place] [address] Performed By: #### A LLBG ####[facility] [id number] [place] [address] [place] Calcium.ionized (Bld) [Mass/Vol] 1.26 mmol/L Normal 1.08-1.30 [facility] Comment on above: Order Comment: Speci men Type: ARTERIAL BLOOD SPECIMENOrdering Facility: [facility] Address: [address] [place] [address] Performed By: #### A LLBG ####[facility] [id number] [place] [address] [place] Calcium.ionized adjusted to pH 7.4 (BldA) [Moles/Vol] 1.28 mmol/L Normal 1.08-1.30 [facility] Comment on above: Order Comment: Speci men Type: ARTERIAL BLOOD SPECIMENOrdering Facility: [facility] Address: [address] [place] [address] Performed By: #### A LLBG ####[facility] [id number] [place] [address] [place] Carboxyhemoglobin (BldA) [Mass fraction] 1.8 % Normal 0.0-2.0 [facility] Comment on above: Order Comment: Speci men Type: ARTERIAL BLOOD SPECIMENOrdering Facility: [facility] Address: [address] [place] [address] Result Comment: Carb oxyhemoglobin Reference Range for Smokers: 2.0-8.0% Performed By: #### A LLBG ####[facility] [id number] [place] [address] [place] CO2 (Bld) [Partial pressure] 40 mm Hg Normal 36-46 [facility] Comment on above: Order Comment: Speci men Type: ARTERIAL BLOOD SPECIMENOrdering Facility: [facility] Address: [address] [place] [address] Performed By: #### A LLBG ####[facility] LABCLIA [id number] [place] [address] [place] Glucose [Mass/Vol] 118 mg/dL High 60-105 [facility] Comment on above: Order Comment: Speci men Type: ARTERIAL BLOOD SPECIMENOrdering Facility: [facility] Address: [address] [place] [address] Performed By: #### A LLBG ####[facility] LABCLIA [id number] [place] [address] [place] HCO3 (Bld) [Moles/Vol] 26 mmol/L Normal 22-26 [facility] Comment on above: Order Comment: Speci men Type: ARTERIAL BLOOD SPECIMENOrdering Facility: [facility] Address: [address] [place] [address] Performed By: #### A LLBG ####[facility] LABCLIA [id number] [place] [address] [place] Hematocrit (Bld) [Volume fraction] 37.5 % Normal 36.0-46.0 [facility] Comment on above: Order Comment: Speci men Type: ARTERIAL BLOOD SPECIMENOrdering Facility: [facility] Address: [address] [place] [address] Performed By: #### A LLBG ####[facility] LABCLIA [id number] [place] [address] [place] Hemoglobin (Bld) [Mass/Vol] 12.2 g/dL Normal 11.5-15.5 [facility] Comment on above: Order Comment: Speci men Type: ARTERIAL BLOOD SPECIMENOrdering Facility: [facility] Address: [address] [place] [address] Performed By: #### A LLBG ####[facility] LABCLIA [id number] [place] [address] [place] Lactate [Moles/Vol] 1.6 mmol/L Normal 0.5-2.2 [facility] Comment on above: Order Comment: Speci men Type: ARTERIAL BLOOD SPECIMENOrdering Facility: [facility] Address: [address] [place] [address] Performed By: #### A LLBG ####[facility] LABCLIA [id number] [place] [address] [place] Methemoglobin (Bld) [Mass fraction] 1.3 % Normal 0.0-1.5 [facility] Comment on above: Order Comment: Speci men Type: ARTERIAL BLOOD SPECIMENOrdering Facility: [facility] Address: [address] [place] [address] Performed By: #### A LLBG ####[facility] LABCLIA [id number] [place] [address] [place] O2 THERAPY [place] = Nasal Cannula Normal [facility] Comment on above: Order Comment: Speci men Type: ARTERIAL BLOOD SPECIMENOrdering Facility: [facility] Address: [address] [place] [address] Performed By: #### A LLBG ####[facility] LABCLIA [id number] [place] [address] [place] Oxygen (Bld) [Partial pressure] 85 mm Hg Normal 85-95 [facility] Comment on above: Order Comment: Speci men Type: ARTERIAL BLOOD SPECIMENOrdering Facility: [facility] Address: [address] [place] [address] Performed By: #### A LLBG ####[facility] LABCLIA [id number] [place] [address] [place] Oxyhemoglobin (BldA) [Mass fraction] 94 % Low 95-98 [facility] Comment on above: Order Comment: Speci men Type: ARTERIAL BLOOD SPECIMENOrdering Facility: [facility] Address: [address] [place] [address] Performed By: #### A LLBG ####[facility] LABCLIA [id number] [place] [address] [place] pH (Bld) 7.42 [pH] Normal 7.35-7.45 [facility] Comment on above: Order Comment: Speci men Type: ARTERIAL BLOOD SPECIMENOrdering Facility: [facility] Address: [address] [place] [address] Performed By: #### A LLBG ####[facility] LABCLIA [id number] [place] [address] [place] Potassium [Moles/Vol] 4.4 mmol/L Normal 3.5-5.0 [facility] Comment on above: Order Comment: Speci men Type: ARTERIAL BLOOD SPECIMENOrdering Facility: [facility] Address: [address] [place] [address] Performed By: #### A LLBG ####[facility] LABCLIA [id number] [place] [address] [place] Sodium [Moles/Vol] 132 mmol/L Low 136-144 [facility] Comment on above: Order Comment: Speci men Type: ARTERIAL BLOOD SPECIMENOrdering Facility: [facility] Address: [address] [place] [address] Performed By: #### A LLBG ####[facility] LABCLIA [id number] [place] [address] [place] Base excess Calc (Bld) [Moles/Vol] 2 mmol/L Normal 0-2 [facility] Comment on above: Order Comment: Speci men Type: ARTERIAL BLOOD SPECIMENOrdering Facility: [facility] Address: [address] [place] [address] Performed By: #### A LLBG ####[facility] LABCLIA [id number] [place] [address] [place] Body temperature 98.6 [degF] Normal [facility] Comment on above: Order Comment: Speci men Type: ARTERIAL BLOOD SPECIMENOrdering Facility: [facility] Address: [address] [place] [address] Performed By: #### A LLBG ####[facility] LABIA [id number] [place] [address] [place] Calcium.ionized (Bld) [Mass/Vol] 1.25 mmol/L Normal 1.08-1.30 [facility] Comment on above: Order Comment: Speci men Type: ARTERIAL BLOOD SPECIMENOrdering Facility: [facility] Address: [address] [place] [address] Performed By: #### A LLBG ####[facility] LABIA [id number] [place] [address] [place] Calcium.ionized adjusted to pH 7.4 (BldA) [Moles/Vol] 1.24 mmol/L Normal 1.08-1.30 [facility] Comment on above: Order Comment: Speci men Type: ARTERIAL BLOOD SPECIMENOrdering Facility: [facility] Address: [address] [place] [address] Performed By: #### A LLBG ####[facility] LABIA [id number] [place] [address] [place] Carboxyhemoglobin (BldA) [Mass fraction] 1.5 % Normal 0.0-2.0 [facility] Comment on above: Order Comment: Speci men Type: ARTERIAL BLOOD SPECIMENOrdering Facility: [facility] Address: [address] [place] [address] Result Comment: Carb oxyhemoglobin Reference Range for Smokers: 2.0-8.0% Performed By: #### A LLBG ####[facility] LABIA [id number] [place] [address] [place] CO2 (Bld) [Partial pressure] 44 mm Hg Normal 36-46 [facility] Comment on above: Order Comment: Speci men Type: ARTERIAL BLOOD SPECIMENOrdering Facility: [facility] Address: [address] [place] [address] Performed By: #### A LLBG ####[facility] LABCLIA [id number] [place] [address] [place] Glucose [Mass/Vol] 139 mg/dL High 60-105 [facility] Comment on above: Order Comment: Speci men Type: ARTERIAL BLOOD SPECIMENOrdering Facility: [facility] Address: [address] [place] [address] Performed By: #### A LLBG ####[facility] LABCLIA [id number] [place] [address] [place] HCO3 (Bld) [Moles/Vol] 27 mmol/L High 22-26 [facility] Comment on above: Order Comment: Speci men Type: ARTERIAL BLOOD SPECIMENOrdering Facility: [facility] Address: [address] [place] [address] Performed By: #### A LLBG ####[facility] LABCLIA [id number] [place] [address] [place] Hematocrit (Bld) [Volume fraction] 37.0 % Normal 36.0-46.0 [facility] Comment on above: Order Comment: Speci men Type: ARTERIAL BLOOD SPECIMENOrdering Facility: [facility] Address: [address] [place] [address] Performed By: #### A LLBG ####[facility] LABCLIA [id number] [place] [address] [place] Hemoglobin (Bld) [Mass/Vol] 12.0 g/dL Normal 11.5-15.5 [facility] Comment on above: Order Comment: Speci men Type: ARTERIAL BLOOD SPECIMENOrdering Facility: [facility] Address: [address] [place] [address] Performed By: #### A LLBG ####[facility] LABCLIA [id number] [place] [address] [place] Lactate [Moles/Vol] 1.6 mmol/L Normal 0.5-2.2 [facility] Comment on above: Order Comment: Speci men Type: ARTERIAL BLOOD SPECIMENOrdering Facility: [facility] Address: [address] [place] [address] Performed By: #### A LLBG ####[facility] LABCLIA [id number] [place] [address] [place] Methemoglobin (Bld) [Mass fraction] 1.5 % Normal 0.0-1.5 [facility] Comment on above: Order Comment: Speci men Type: ARTERIAL BLOOD SPECIMENOrdering Facility: [facility] Address: [address] [place] [address] Performed By: #### A LLBG ####[facility] LABCLIA [id number] [place] [address] [place] O2 THERAPY NC = Nasal Cannula Normal [facility] Comment on above: Order Comment: Speci men Type: ARTERIAL BLOOD SPECIMENOrdering Facility: [facility] Address: [address] [place] [address] Performed By: #### A LLBG ####[facility] LABCLIA [id number] [place] [address] [place] Oxygen (Bld) [Partial pressure] 106 mm Hg High 85-95 [facility] Comment on above: Order Comment: Speci men Type: ARTERIAL BLOOD SPECIMENOrdering Facility: [facility] Address: [address] [place] [address] Performed By: #### A LLBG ####[facility] LABCLIA [id number] [place] [address] [place] Oxyhemoglobin (BldA) [Mass fraction] 95 % Normal 95-98 [facility] Comment on above: Order Comment: Speci men Type: ARTERIAL BLOOD SPECIMENOrdering Facility: [facility] Address: [address] [place] [address] Performed By: #### A LLBG ####[facility] LABCLIA [id number] [place] [address] [place] pH (Bld) 7.40 [pH] Normal 7.35-7.45 [facility] Comment on above: Order Comment: Speci men Type: ARTERIAL BLOOD SPECIMENOrdering Facility: [facility] Address: [address] [place] [address] Performed By: #### A LLBG ####[facility] LABCLIA [id number] [place] [address] [place] Potassium [Moles/Vol] 4.2 mmol/L Normal 3.5-5.0 [facility] Comment on above: Order Comment: Speci men Type: ARTERIAL BLOOD SPECIMENOrdering Facility: [facility] Address: [address] [place] [address] Performed By: #### A LLBG ####[facility] LABIA [id number] [place] [address] [place] Sodium [Moles/Vol] 131 mmol/L Low 136-144 [facility] Comment on above: Order Comment: Speci men Type: ARTERIAL BLOOD SPECIMENOrdering Facility: [facility] Address: [address] [place] [address] Performed By: #### A LLBG ####[facility] LABIA [id number] [place] [address] [place] Base excess Calc (Bld) [Moles/Vol] 1 mmol/L Normal 0-2 [facility] Comment on above: Order Comment: Speci men Type: ARTERIAL BLOOD SPECIMENOrdering Facility: [facility] Address: [address] [place] [address] Performed By: #### A LLBG ####[facility] LABIA [id number] [place] [address] [place] Body temperature 98.6 [degF] Normal [facility] Comment on above: Order Comment: Speci men Type: ARTERIAL BLOOD SPECIMENOrdering Facility: [facility] Address: [address] [place] [address] Performed By: #### A LLBG ####[facility] LABCLIA [id number] [place] [address] [place] Calcium.ionized (Bld) [Mass/Vol] 1.28 mmol/L Normal 1.08-1.30 [facility] Comment on above: Order Comment: Speci men Type: ARTERIAL BLOOD SPECIMENOrdering Facility: [facility] Address: [address] [place] [address] Performed By: #### A LLBG ####[facility] LABIA [id number] [place] [address] [place] Calcium.ionized adjusted to pH 7.4 (BldA) [Moles/Vol] 1.28 mmol/L Normal 1.08-1.30 [facility] Comment on above: Order Comment: Speci men Type: ARTERIAL BLOOD SPECIMENOrdering Facility: [facility] Address: [address] [place] [address] Performed By: #### A LLBG ####[facility] LABIA [id number] [place] [address] [place] Carboxyhemoglobin (BldA) [Mass fraction] 1.1 % Normal 0.0-2.0 [facility] Comment on above: Order Comment: Speci men Type: ARTERIAL BLOOD SPECIMENOrdering Facility: [facility] Address: [address] [place] [address] Result Comment: Carb oxyhemoglobin Reference Range for Smokers: 2.0-8.0% Performed By: #### A LLBG ####[facility] LABIA [id number] [place] [address] [place] CO2 (Bld) [Partial pressure] 42 mm Hg Normal 36-46 [facility] Comment on above: Order Comment: Speci men Type: ARTERIAL BLOOD SPECIMENOrdering Facility: [facility] Address: [address] [place] [address] Performed By: #### A LLBG ####[facility] LABCLIA [id number] [place] [address] [place] Glucose [Mass/Vol] 153 mg/dL High 60-105 [facility] Comment on above: Order Comment: Speci men Type: ARTERIAL BLOOD SPECIMENOrdering Facility: [facility] Address: [address] [place] [address] Performed By: #### A LLBG ####[facility] LABCLIA [id number] [place] [address] [place] HCO3 (Bld) [Moles/Vol] 25 mmol/L Normal 22-26 [facility] Comment on above: Order Comment: Speci men Type: ARTERIAL BLOOD SPECIMENOrdering Facility: [facility] Address: [address] [place] [address] Performed By: #### A LLBG ####[facility] LABCLIA [id number] [place] [address] [place] Hematocrit (Bld) [Volume fraction] 37.6 % Normal 36.0-46.0 [facility] Comment on above: Order Comment: Speci men Type: ARTERIAL BLOOD SPECIMENOrdering Facility: [facility] Address: [address] [place] [address] Performed By: #### A LLBG ####[facility] LABCLIA [id number] [place] [address] [place] Hemoglobin (Bld) [Mass/Vol] 12.2 g/dL Normal 11.5-15.5 [facility] Comment on above: Order Comment: Speci men Type: ARTERIAL BLOOD SPECIMENOrdering Facility: [facility] Address: [address] [place] [address] Performed By: #### A LLBG ####[facility] LABCLIA [id number] [place] [address] [place] Lactate [Moles/Vol] 2.0 mmol/L Normal 0.5-2.2 [facility] Comment on above: Order Comment: Speci men Type: ARTERIAL BLOOD SPECIMENOrdering Facility: [facility] Address: [address] [place], [place] [address] Performed By: #### A LLBG ####[facility] LABCLIA [id number] [place] [address] [place] Methemoglobin (Bld) [Mass fraction] 1.2 % Normal 0.0-1.5 [facility] Comment on above: Order Comment: Speci men Type: ARTERIAL BLOOD SPECIMENOrdering Facility: [facility] Address: [address] [place] [address] Performed By: #### A LLBG ####[facility] LABCLIA [id number] [place] [address] [place] O2 THERAPY [place] = Nasal Cannula Normal [facility] Comment on above: Order Comment: Speci men Type: ARTERIAL BLOOD SPECIMENOrdering Facility: [facility] Address: [address] [place] [address] Performed By: #### A LLBG ####[facility] LABCLIA [id number] [place] [address] [place] Oxygen (Bld) [Partial pressure] 115 mm Hg High 85-95 [facility] Comment on above: Order Comment: Speci men Type: ARTERIAL BLOOD SPECIMENOrdering Facility: [facility] Address: [address] [place] [address] Performed By: #### A LLBG ####[facility] LABCLIA [id number] [place] [id number] [place] Oxyhemoglobin (BldA) [Mass fraction] 96 % Normal 95-98 [facility] Comment on above: Order Comment: Speci men Type: ARTERIAL BLOOD SPECIMENOrdering Facility: [facility] Address: [address] [place] [address] Performed By: #### A LLBG ####[facility] LABIA [id number] [place] [address] [place] pH (Bld) 7.40 [pH] Normal 7.35-7.45 [facility] Comment on above: Order Comment: Speci men Type: ARTERIAL BLOOD SPECIMENOrdering Facility: [facility] Address: [address] [place] [address] Performed By: #### A LLBG ####[facility] LABIA [id number] [place] [address] [place] Potassium [Moles/Vol] 4.5 mmol/L Normal 3.5-5.0 [facility] Comment on above: Order Comment: Speci men Type: ARTERIAL BLOOD SPECIMENOrdering Facility: [facility] Address: [address] [place] [address] Performed By: #### A LLBG ####[facility] LABIA [id number] [place] [address] [place] Sodium [Moles/Vol] 132 mmol/L Low 136-144 [facility] Comment on above: Order Comment: Speci men Type: ARTERIAL BLOOD SPECIMENOrdering Facility: [facility] Address: [address] [place] [address] Performed By: #### A LLBG ####[facility] LABIA [id number] [place] [address] [place] CASE MGT INIT ASSESon 2023 CASE MGT INIT ASSES Normal [facility] CBC panel Auto (Bld)on 07-30 Erythrocyte distribution width (RBC) [Ratio] 12.1 % Normal 11.5-15.0 [facility] Comment on above: Order Comment: Speci men Type: BLOOD SPECIMENOrdering Facility: [facility] Address: [address] [place] [address] Performed By: #### 5 8410-2 ####[facility] LABIA [id number] [place] [address] [place] Hematocrit (Bld) [Volume fraction] 34.5 % Low 36.0-46.0 [facility] Comment on above: Order Comment: Speci men Type: BLOOD SPECIMENOrdering Facility: [facility] Address: [address] [place] [address] Performed By: #### 5 8410-2 ####[facility] LABIA [id number] [place] [address] [place] Hemoglobin (Bld) [Mass/Vol] 12.0 g/dL Normal 11.5-15.5 [facility] Comment on above: Order Comment: Speci men Type: BLOOD SPECIMENOrdering Facility: [facility] Address: [address] [place] [address] Performed By: #### 5 8410-2 ####[facility] [id number] [place] [address] [place] MCH (RBC) [Entitic mass] 31.6 pg Normal 26.0-34.0 [facility] Comment on above: Order Comment: Speci men Type: BLOOD SPECIMENOrdering Facility: [facility] Address: [address] [place] [address] Performed By: #### 5 8410-2 ####[facility] LABIA [id number] [place] [address] [place] MCHC (RBC) [Mass/Vol] 34.8 g/dL Normal 30.5-36.0 [facility] Comment on above: Order Comment: Speci men Type: BLOOD SPECIMENOrdering Facility: [facility] Address: [address] [place] [address] Performed By: #### 5 8410-2 ####[facility] [id number] [place] [address] [place] MCV (RBC) [Entitic vol] 90.8 fL Normal 80.0-100.0 [facility] Comment on above: Order Comment: Speci men Type: BLOOD SPECIMENOrdering Facility: [facility] Address: [address] [place] [address] Performed By: #### 5 8410-2 ####[facility] LABCLIA [id number] [place] [address] [place] Nucleated RBC (Bld) [#/Vol] 10*3/uL Normal <0.01 [facility] Comment on above: Order Comment: Speci men Type: BLOOD SPECIMENOrdering Facility: [facility] Address: [address] [place] [address] Performed By: #### 5 8410-2 ####[facility] LABCLIA [id number] [place] [address] [place] Platelet mean volume (Bld) [Entitic vol] 9.7 fL Normal 9.0-12.7 [facility] Comment on above: Order Comment: Speci men Type: BLOOD SPECIMENOrdering Facility: [facility] Address: [address] [place] [address] Performed By: #### 5 8410-2 ####[facility] LABIA [id number] [place] [address] [place] Platelets (Bld) [#/Vol] 169 10*3/uL Normal 150-400 [facility] Comment on above: Order Comment: Speci men Type: BLOOD SPECIMENOrdering Facility: [facility] Address: [address] [place] [address] Performed By: #### 5 8410-2 ####[facility] LABCLIA [id number] [place] [address] [place] RBC (Bld) [#/Vol] 3.80 10*6/uL Low 3.90-5.20 [facility] Comment on above: Order Comment: Speci men Type: BLOOD SPECIMENOrdering Facility: [facility] Address: [address] [place] [address] Performed By: #### 5 8410-2 ####[facility] LABCLIA [id number] [place] [address] [place] WBC (Bld) [#/Vol] 10.11 10*3/uL Normal 3.70-11.00 [facility] Comment on above: Order Comment: Speci men Type: BLOOD SPECIMENOrdering Facility: [facility] Address: [address] [place] [address] Performed By: #### 5 8410-2 ####[facility] LABIA [id number] [place] [address] [place] Comprehensive metabolic 2000 panelon 07-30-2023 Albumin [Mass/Vol] 3.1 g/dL Low 3.9-4.9 [facility] Comment on above: Order Comment: Speci men Type: BLOOD SPECIMENOrdering Facility: [facility] Address: [address] [place] [address] Performed By: #### 2 4323-8, HSTNT ####[facility] LABIA [id number] [place] [address] [place] ALP [Catalytic activity/Vol] 56 U/L Normal 34-123 [facility] Comment on above: Order Comment: Speci men Type: BLOOD SPECIMENOrdering Facility: [facility] Address: [address] [place] [address] Performed By: #### 2 4323-8, HSTNT ####[facility] LABCLIA [id number] [place] [address] [place] ALT [Catalytic activity/Vol] 14 U/L Normal 7-38 [facility] Comment on above: Order Comment: Speci men Type: BLOOD SPECIMENOrdering Facility: [facility] Address: [address] [place] [address] Performed By: #### 2 4323-8, HSTNT ####[facility] LABCLIA [id number] [place] [address] [place] Anion gap [Moles/Vol] 10 mmol/L Normal 9-18 [facility] Comment on above: Order Comment: Speci men Type: BLOOD SPECIMENOrdering Facility: [facility] Address: [address] [place] [address] Performed By: #### 2 4323-8, HSTNT ####[facility] LABCLIA [id number] [place] [address] [place] AST [Catalytic activity/Vol] 29 U/L Normal 13-35 [facility] Comment on above: Order Comment: Speci men Type: BLOOD SPECIMENOrdering Facility: [facility] Address: [address] [place] [address] Performed By: #### 2 4323-8, HSTNT ####[facility] LABCLIA [id number] [place] [address] [place] Bilirubin [Mass/Vol] 0.4 mg/dL Normal 0.2-1.3 [facility] Comment on above: Order Comment: Speci men Type: BLOOD SPECIMENOrdering Facility: [facility] Address: [address] [place] [address] Performed By: #### 2 4323-8, HSTNT ####[facility] LABCLIA [id number] [place] [address] [place] Calcium [Mass/Vol] 8.9 mg/dL Normal 8.5-10.2 [facility] Comment on above: Order Comment: Speci men Type: BLOOD SPECIMENOrdering Facility: [facility] Address: [address] [place] [address] Performed By: #### 2 4323-8, HSTNT ####[facility] LABCLIA [id number] [place] [address] [place] Chloride [Moles/Vol] 101 mmol/L Normal 97-105 [facility] Comment on above: Order Comment: Speci men Type: BLOOD SPECIMENOrdering Facility: [facility] Address: [address] [place] [address] Performed By: #### 2 4323-8, HSTNT ####[facility] LABCLIA [id number] [place] [address] [place] CO2 [Moles/Vol] 23 mmol/L Normal 22-30 [facility] Comment on above: Order Comment: Speci men Type: BLOOD SPECIMENOrdering Facility: [facility] Address: [address] [place] [address] Performed By: #### 2 4323-8, HSTNT ####[facility] LABCLIA [id number] [place] [address] [place] Creatinine [Mass/Vol] 0.70 mg/dL Normal 0.58-0.96 [facility] Comment on above: Order Comment: Speci men Type: BLOOD SPECIMENOrdering Facility: [facility] Address: [address] [place] [address] Performed By: #### 2 4323-8, HSTNT ####[facility] LABCLIA [id number] [place] [address] [place] Creatinine and Glomerular filtration rate.predicted panel (S/P/Bld) 96 mL/min/1.73m??? Normal >=60 [facility] Comment on above: Order Comment: Speci men Type: BLOOD SPECIMENOrdering Facility: [facility] Address: [address] [place] [address] Result Comment: Annelise mated Glomerular Filtration Rate [...] GFR. Performed By: #### 2 4323-8, HSTNT ####[facility] LABCLIA [id number] [place] [address] [place] Glucose [Mass/Vol] 145 mg/dL High 74-99 [facility] Comment on above: Order Comment: Speci men Type: BLOOD SPECIMENOrdering Facility: [facility] Address: [address] [place] [address] Result Comment: The [place] [employer] (ADA) provides guidance for cutoff [...] Standards of Medical Care in Diabetes 2016, [place] [employer]. Diabetes Care. 2016.39(Suppl 1). Performed By: #### 2 4323-8, HSTNT ####[facility] LABIA [id number] [place] [address] [place] Potassium [Moles/Vol] 4.7 mmol/L Normal 3.7-5.1 [facility] Comment on above: Order Comment: Speci men Type: BLOOD SPECIMENOrdering Facility: [facility] Address: [address] [place] [address] Performed By: #### 2 4323-8, HSTNT ####[facility] LABIA [id number] [place] [address] [place] Protein [Mass/Vol] 5.2 g/dL Low 6.3-8.0 [facility] Comment on above: Order Comment: Speci men Type: BLOOD SPECIMENOrdering Facility: [facility] Address: [address] [place] [address] Performed By: #### 2 4323-8, HSTNT ####[facility] LABCLIA [id number] [place] [address] [place] Sodium [Moles/Vol] 134 mmol/L Low 136-144 [facility] Comment on above: Order Comment: Speci men Type: BLOOD SPECIMENOrdering Facility: [facility] Address: [address] [place] [address] Performed By: #### 2 4323-8, HSTNT ####[facility] LABCLIA [id number] [place] [address] [place] Urea nitrogen [Mass/Vol] 20 mg/dL Normal 7-21 [facility] Comment on above: Order Comment: Speci men Type: BLOOD SPECIMENOrdering Facility: [facility] Address: [address] [place] [address] Performed By: #### 2 4323-8, HSTNT ####[facility] LABCLIA [id number] [place] [address] [place] HIGH SENSITIVITY TROPONIN To n 07-30-2023 Troponin T.cardiac High sensitivity method [Mass/Vol] 317 ng/L High <12 [facility] Comment on above: Order Comment: Speci men Type: BLOOD SPECIMENOrdering Facility: [facility] Address: [address] [place] [address] Result Comment: When assessing risk for acute [...] MACE. Performed By: #### 2 4323-8, HSTNT ####[facility] LABCLIA [id number] [place] [id number] [place] XR CHEST 1V FRONTAL PORTon 0 07-30-2023 XR CHEST 1V FRONTAL PORT Normal [facility] ANES POSTPROC EVALon 024 ANES POSTPROC EVAL Normal [facility] ANES PRE-OPon 07-29-2023 ANES PRE-OP Normal [facility] ARTERIAL BLOOD GASESon 07-29 Base excess Calc (Bld) [Moles/Vol] 1 mmol/L Normal 0-2 [facility] Comment on above: Order Comment: Speci men Type: ARTERIAL BLOOD SPECIMENOrdering Facility: [facility] Address: [address] [place] [address] Performed By: #### A LLBG ####[facility] LABCLIA [id number] [place] [address] [place] Body temperature 98.6 [degF] Normal [facility] Comment on above: Order Comment: Speci men Type: ARTERIAL BLOOD SPECIMENOrdering Facility: [facility] Address: [address] [place] [address] Performed By: #### A LLBG ####[facility] LABCLIA [id number] [place] [address] [place] Calcium.ionized (Bld) [Mass/Vol] 1.26 mmol/L Normal 1.08-1.30 [facility] Comment on above: Order Comment: Speci men Type: ARTERIAL BLOOD SPECIMENOrdering Facility: [facility] Address: [address] [place] [address] Performed By: #### A LLBG ####[facility] LABCLIA [id number] [place] [address] [place] Calcium.ionized adjusted to pH 7.4 (BldA) [Moles/Vol] 1.25 mmol/L Normal 1.08-1.30 [facility] Comment on above: Order Comment: Speci men Type: ARTERIAL BLOOD SPECIMENOrdering Facility: [facility] Address: [address] [place] [address] Performed By: #### A LLBG ####[facility] LABCLIA [id number] [place] [address] [place] Carboxyhemoglobin (BldA) [Mass fraction] 1.2 % Normal 0.0-2.0 [facility] Comment on above: Order Comment: Speci men Type: ARTERIAL BLOOD SPECIMENOrdering Facility: [facility] Address: [address] [place] [address] Result Comment: Carb oxyhemoglobin Reference Range for Smokers: 2.0-8.0% Performed By: #### A LLBG ####[facility] LABIA [id number] [place] [address] [place] CO2 (Bld) [Partial pressure] 43 mm Hg Normal 36-46 [facility] Comment on above: Order Comment: Speci men Type: ARTERIAL BLOOD SPECIMENOrdering Facility: [facility] Address: [address] [place] [address] Performed By: #### A LLBG ####[facility] LABIA [id number] [place] [address] [place] Glucose [Mass/Vol] 164 mg/dL High 60-105 [facility] Comment on above: Order Comment: Speci men Type: ARTERIAL BLOOD SPECIMENOrdering Facility: [facility] Address: [address] [place] [address] Performed By: #### A LLBG ####[facility] LABIA [id number] [place] [address] [place] HCO3 (Bld) [Moles/Vol] 26 mmol/L Normal 22-26 [facility] Comment on above: Order Comment: Speci men Type: ARTERIAL BLOOD SPECIMENOrdering Facility: [facility] Address: [address] [place] [address] Performed By: #### A LLBG ####[facility] LABIA [id number] [place] [address] [place] Hematocrit (Bld) [Volume fraction] 36.7 % Normal 36.0-46.0 [facility] Comment on above: Order Comment: Speci men Type: ARTERIAL BLOOD SPECIMENOrdering Facility: [facility] Address: [address] [place] [address] Performed By: #### A LLBG ####[facility] [id number] [place] [address] [place] Hemoglobin (Bld) [Mass/Vol] 11.9 g/dL Normal 11.5-15.5 [facility] Comment on above: Order Comment: Speci men Type: ARTERIAL BLOOD SPECIMENOrdering Facility: [facility] Address: [address] [place] [address] Performed By: #### A LLBG ####[facility] [id number] [place] [address] [place] Lactate [Moles/Vol] 1.1 mmol/L Normal 0.5-2.2 [facility] Comment on above: Order Comment: Speci men Type: ARTERIAL BLOOD SPECIMENOrdering Facility: [facility] Address: [address] [place] [address] Performed By: #### A LLBG ####[facility] [id number] [place] [address] [place] Methemoglobin (Bld) [Mass fraction] 0.9 % Normal 0.0-1.5 [facility] Comment on above: Order Comment: Speci men Type: ARTERIAL BLOOD SPECIMENOrdering Facility: [facility] Address: [address] [place] [address] Performed By: #### A LLBG ####[facility] [id number] [place] [address] [place] O2 THERAPY NC = Nasal Cannula Normal [facility] Comment on above: Order Comment: Speci men Type: ARTERIAL BLOOD SPECIMENOrdering Facility: [facility] Address: [address] [place] [address] Performed By: #### A LLBG ####[facility] LABCLIA [id number] [place] [address] [place] Oxygen (Bld) [Partial pressure] 95 mm Hg Normal 85-95 [facility] Comment on above: Order Comment: Speci men Type: ARTERIAL BLOOD SPECIMENOrdering Facility: [facility] Address: [address] [place] [address] Performed By: #### A LLBG ####[facility] LABCLIA [id number] [place] [address] [place] Oxyhemoglobin (BldA) [Mass fraction] 96 % Normal 95-98 [facility] Comment on above: Order Comment: Speci men Type: ARTERIAL BLOOD SPECIMENOrdering Facility: [facility] Address: [address] [place] [address] Performed By: #### A LLBG ####[facility] LABCLIA [id number] [place] [address] [place] pH (Bld) 7.39 [pH] Normal 7.35-7.45 [facility] Comment on above: Order Comment: Speci men Type: ARTERIAL BLOOD SPECIMENOrdering Facility: [facility] Address: [address] [place] [address] Performed By: #### A LLBG ####[facility] LABCLIA [id number] [place] [address] [place] Potassium [Moles/Vol] 4.4 mmol/L Normal 3.5-5.0 [facility] Comment on above: Order Comment: Speci men Type: ARTERIAL BLOOD SPECIMENOrdering Facility: [facility] Address: [address] [place] [address] Performed By: #### A LLBG ####[facility] LABCLIA [id number] [place] [address] [place] Sodium [Moles/Vol] 132 mmol/L Low 136-144 [facility] Comment on above: Order Comment: Speci men Type: ARTERIAL BLOOD SPECIMENOrdering Facility: [facility] Address: [address] [place] [address] Performed By: #### A LLBG ####[facility] LABCLIA [id number] [place] [address] [place] Base excess Calc (Bld) [Moles/Vol] 0 mmol/L Normal 0-2 [facility] Comment on above: Order Comment: Speci men Type: ARTERIAL BLOOD SPECIMENOrdering Facility: [facility] Address: [address] [place] [address] Performed By: #### A LLBG ####[facility] LABIA [id number] [place] [address] [place] Body temperature 98.6 [degF] Normal [facility] Comment on above: Order Comment: Speci men Type: ARTERIAL BLOOD SPECIMENOrdering Facility: [facility] Address: [address] [place] [address] Performed By: #### A LLBG ####[facility] LABCLIA [id number] [place] [address] [place] Calcium.ionized (Bld) [Mass/Vol] 1.28 mmol/L Normal 1.08-1.30 [facility] Comment on above: Order Comment: Speci men Type: ARTERIAL BLOOD SPECIMENOrdering Facility: [facility] Address: [address] [place] [address] Performed By: #### A LLBG ####[facility] LABCLIA [id number] [place] [address] [place] Calcium.ionized adjusted to pH 7.4 (BldA) [Moles/Vol] 1.26 mmol/L Normal 1.08-1.30 [facility] Comment on above: Order Comment: Speci men Type: ARTERIAL BLOOD SPECIMENOrdering Facility: [facility] Address: [address] [place] [address] Performed By: #### A LLBG ####[facility] LABCLIA [id number] [place] [address] [place] Carboxyhemoglobin (BldA) [Mass fraction] 1.9 % Normal 0.0-2.0 [facility] Comment on above: Order Comment: Speci men Type: ARTERIAL BLOOD SPECIMENOrdering Facility: [facility] Address: [address] [place] [address] Result Comment: Carb oxyhemoglobin Reference Range for Smokers: 2.0-8.0% Performed By: #### A LLBG ####[facility] LABCLIA [id number] [place] [address] [place] CO2 (Bld) [Partial pressure] 45 mm Hg Normal 36-46 [facility] Comment on above: Order Comment: Speci men Type: ARTERIAL BLOOD SPECIMENOrdering Facility: [facility] Address: [address] [place] [address] Performed By: #### A LLBG ####[facility] LABCLIA [id number] [place] [address] [place] Glucose [Mass/Vol] 143 mg/dL High 60-105 [facility] Comment on above: Order Comment: Speci men Type: ARTERIAL BLOOD SPECIMENOrdering Facility: [facility] Address: [address] [place] [address] Performed By: #### A LLBG ####[facility] LABCLIA [id number] [place] [address] [place] HCO3 (Bld) [Moles/Vol] 25 mmol/L Normal 22-26 [facility] Comment on above: Order Comment: Speci men Type: ARTERIAL BLOOD SPECIMENOrdering Facility: [facility] Address: [address] [place] [address] Performed By: #### A LLBG ####[facility] LABCLIA [id number] [place] [address] [place] Hematocrit (Bld) [Volume fraction] 36.2 % Normal 36.0-46.0 [facility] Comment on above: Order Comment: Speci men Type: ARTERIAL BLOOD SPECIMENOrdering Facility: [facility] Address: [address] [place] [address] Performed By: #### A LLBG ####[facility] LABIA [id number] [place] [address] [place] Hemoglobin (Bld) [Mass/Vol] 11.7 g/dL Normal 11.5-15.5 [facility] Comment on above: Order Comment: Speci men Type: ARTERIAL BLOOD SPECIMENOrdering Facility: [facility] Address: [address] [place] [address] Performed By: #### A LLBG ####[facility] LABIA [id number] [place] [address] [place] Lactate [Moles/Vol] 2.3 mmol/L High 0.5-2.2 [facility] Comment on above: Order Comment: Speci men Type: ARTERIAL BLOOD SPECIMENOrdering Facility: [facility] Address: [address] [place] [address] Performed By: #### A LLBG ####[facility] LABIA [id number] [place] [address] [place] Methemoglobin (Bld) [Mass fraction] 0.7 % Normal 0.0-1.5 [facility] Comment on above: Order Comment: Speci men Type: ARTERIAL BLOOD SPECIMENOrdering Facility: [facility] Address: [address] [place] [address] Performed By: #### A LLBG ####[facility] LABIA [id number] [place] [address] [place] O2 THERAPY [place] = Nasal Cannula Normal [facility] Comment on above: Order Comment: Speci men Type: ARTERIAL BLOOD SPECIMENOrdering Facility: [facility] Address: [address] [place] [address] Performed By: #### A LLBG ####[facility] LABCLIA [id number] [place] [address] [place] Oxygen (Bld) [Partial pressure] 95 mm Hg Normal 85-95 [facility] Comment on above: Order Comment: Speci men Type: ARTERIAL BLOOD SPECIMENOrdering Facility: [facility] Address: [address] [place] [address] Performed By: #### A LLBG ####[facility] [facility] [id number] [place] [address] [place] Oxyhemoglobin (BldA) [Mass fraction] 95 % Normal 95-98 [facility] Comment on above: Order Comment: Speci men Type: ARTERIAL BLOOD SPECIMENOrdering Facility: [facility] Address: [address] [place] [address] Performed By: #### A LLBG ####[facility] [id number] [place] [address] [place] pH (Bld) 7.37 [pH] Normal 7.35-7.45 [facility] Comment on above: Order Comment: Speci men Type: ARTERIAL BLOOD SPECIMENOrdering Facility: [facility] Address: [address] [place] [address] Performed By: #### A LLBG ####[facility] [id number] [place] [address] [place] Potassium [Moles/Vol] 4.4 mmol/L Normal 3.5-5.0 [facility] Comment on above: Order Comment: Speci men Type: ARTERIAL BLOOD SPECIMENOrdering Facility: [facility] Address: [address] [place] [address] Performed By: #### A LLBG ####[facility] [id number] [place] [address] [place] Sodium [Moles/Vol] 134 mmol/L Low 136-144 [facility] Comment on above: Order Comment: Speci men Type: ARTERIAL BLOOD SPECIMENOrdering Facility: [facility] Address: [address] [place] [address] Performed By: #### A LLBG ####[facility] [id number] [place] [address] [place] Base deficit (BldA) [Moles/Vol] -1 mmol/L Normal -2-0 [facility] Comment on above: Order Comment: Speci men Type: ARTERIAL BLOOD SPECIMENOrdering Facility: [facility] Address: [address] [place] [address] Performed By: #### A LLBG ####[facility] [id number] [place] [address] [place] Body temperature 98.6 [degF] Normal [facility] Comment on above: Order Comment: Speci men Type: ARTERIAL BLOOD SPECIMENOrdering Facility: [facility] Address: [address] [place] [address] Performed By: #### A LLBG ####[facility] [id number] [place] [address] [place] Calcium.ionized (Bld) [Mass/Vol] 1.29 mmol/L Normal 1.08-1.30 [facility] Comment on above: Order Comment: Speci men Type: ARTERIAL BLOOD SPECIMENOrdering Facility: [facility] Address: [address] [place] [address] Performed By: #### A LLBG ####[facility] [id number] [place] [address] [place] Calcium.ionized adjusted to pH 7.4 (BldA) [Moles/Vol] 1.25 mmol/L Normal 1.08-1.30 [facility] Comment on above: Order Comment: Speci men Type: ARTERIAL BLOOD SPECIMENOrdering Facility: [facility] Address: [address] [place] [address] Performed By: #### A LLBG ####[facility] [id number] [place] [address] [place] Carboxyhemoglobin (BldA) [Mass fraction] 1.7 % Normal 0.0-2.0 [facility] Comment on above: Order Comment: Speci men Type: ARTERIAL BLOOD SPECIMENOrdering Facility: [facility] Address: [address] [place] [address] Result Comment: Carb oxyhemoglobin Reference Range for Smokers: 2.0-8.0% Performed By: #### A LLBG ####[facility] [id number] [place] [address] [place] CO2 (Bld) [Partial pressure] 47 mm Hg High 36-46 [facility] Comment on above: Order Comment: Speci men Type: ARTERIAL BLOOD SPECIMENOrdering Facility: [facility] Address: [address] [place] [address] Performed By: #### A LLBG ####[facility] [id number] [place] [address] [place] Glucose [Mass/Vol] 216 mg/dL High 60-105 [facility] Comment on above: Order Comment: Speci men Type: ARTERIAL BLOOD SPECIMENOrdering Facility: [facility] Address: [address] [place] [address] Performed By: #### A LLBG ####[facility] [id number] [place] [address] [place] HCO3 (Bld) [Moles/Vol] 25 mmol/L Normal 22-26 [facility] Comment on above: Order Comment: Speci men Type: ARTERIAL BLOOD SPECIMENOrdering Facility: [facility] Address: [address] [place] [address] Performed By: #### A LLBG ####[facility] [id number] [place] [id number] [place] Hematocrit (Bld) [Volume fraction] 38.2 % Normal 36.0-46.0 [facility] Comment on above: Order Comment: Speci men Type: ARTERIAL BLOOD SPECIMENOrdering Facility: [facility] Address: [address] [place] [address] Performed By: #### A LLBG ####[facility] [id number] [place] [address] [place] Hemoglobin (Bld) [Mass/Vol] 12.4 g/dL Normal 11.5-15.5 [facility] Comment on above: Order Comment: Speci men Type: ARTERIAL BLOOD SPECIMENOrdering Facility: [facility] Address: [address] [place] [address] Performed By: #### A LLBG ####[facility] [id number] [place] [address] [place] Lactate [Moles/Vol] 1.2 mmol/L Normal 0.5-2.2 [facility] Comment on above: Order Comment: Speci men Type: ARTERIAL BLOOD SPECIMENOrdering Facility: [facility] Address: [address] [place] [address] Performed By: #### A LLBG ####[facility] [id number] [place] [address] [place] Methemoglobin (Bld) [Mass fraction] 0.8 % Normal 0.0-1.5 [facility] Comment on above: Order Comment: Speci men Type: ARTERIAL BLOOD SPECIMENOrdering Facility: [facility] Address: [address] [place] [address] Performed By: #### A LLBG ####[facility] [id number] [place] [address] [place] O2 THERAPY NC = Nasal Cannula Normal [facility] Comment on above: Order Comment: Speci men Type: ARTERIAL BLOOD SPECIMENOrdering Facility: [facility] Address: [address] [place] [address] Performed By: #### A LLBG ####[facility] [id number] [place] [address] [place] Oxygen (Bld) [Partial pressure] 127 mm Hg High 85-95 [facility] Comment on above: Order Comment: Speci men Type: ARTERIAL BLOOD SPECIMENOrdering Facility: [facility] Address: [address] [place] [address] Performed By: #### A LLBG ####[facility] [id number] [place] [address] [place] Oxyhemoglobin (BldA) [Mass fraction] 96 % Normal 95-98 [facility] Comment on above: Order Comment: Speci men Type: ARTERIAL BLOOD SPECIMENOrdering Facility: [facility] Address: [address] [place] [address] Performed By: #### A LLBG ####[facility] [id number] [place] [address] [place] pH (Bld) 7.34 [pH] Low 7.35-7.45 [facility] Comment on above: Order Comment: Speci men Type: ARTERIAL BLOOD SPECIMENOrdering Facility: [facility] Address: [address] [place] [address] Performed By: #### A LLBG ####[facility] [id number] [place] [address] [place] Potassium [Moles/Vol] 4.2 mmol/L Normal 3.5-5.0 [facility] Comment on above: Order Comment: Speci men Type: ARTERIAL BLOOD SPECIMENOrdering Facility: [facility] Address: [address] [place] [address] Performed By: #### A LLBG ####[facility] [id number] [place] [address] [place] Sodium [Moles/Vol] 134 mmol/L Low 136-144 [facility] Comment on above: Order Comment: Speci men Type: ARTERIAL BLOOD SPECIMENOrdering Facility: [facility] Address: [address] [place] [address] Performed By: #### A LLBG ####[facility] [id number] [place] [address] [place] Base excess Calc (Bld) [Moles/Vol] 0 mmol/L Normal 0-2 [facility] Comment on above: Order Comment: Speci men Type: ARTERIAL BLOOD SPECIMENOrdering Facility: [facility] Address: [address] [place] [address] Performed By: #### A LLBG ####[facility] [id number] [place] [address] [place] Body temperature 98.6 [degF] Normal [facility] Comment on above: Order Comment: Speci men Type: ARTERIAL BLOOD SPECIMENOrdering Facility: [facility] Address: [address] [place] [address] Performed By: #### A LLBG ####[facility] [id number] [place] [address] [place] Calcium.ionized (Bld) [Mass/Vol] 1.28 mmol/L Normal 1.08-1.30 [facility] Comment on above: Order Comment: Speci men Type: ARTERIAL BLOOD SPECIMENOrdering Facility: [facility] Address: [address] [place] [address] Performed By: #### A LLBG ####[facility] [id number] [place] [address] [place] Calcium.ionized adjusted to pH 7.4 (BldA) [Moles/Vol] 1.27 mmol/L Normal 1.08-1.30 [facility] Comment on above: Order Comment: Speci men Type: ARTERIAL BLOOD SPECIMENOrdering Facility: [facility] Address: [address] [place] [address] Performed By: #### A LLBG ####[facility] [id number] [place] [address] [place] Carboxyhemoglobin (BldA) [Mass fraction] 1.1 % Normal 0.0-2.0 [facility] Comment on above: Order Comment: Speci men Type: ARTERIAL BLOOD SPECIMENOrdering Facility: [facility] Address: [address] [place] [address] Result Comment: Carb oxyhemoglobin Reference Range for Smokers: 2.0-8.0% Performed By: #### A LLBG ####[facility] [id number] [place] [address] [place] CO2 (Bld) [Partial pressure] 43 mm Hg Normal 36-46 [facility] Comment on above: Order Comment: Speci men Type: ARTERIAL BLOOD SPECIMENOrdering Facility: [facility] Address: [address] [place] [address] Performed By: #### A LLBG ####[facility] [id number] [place] [address] [place] Glucose [Mass/Vol] 186 mg/dL High 60-105 [facility] Comment on above: Order Comment: Speci men Type: ARTERIAL BLOOD SPECIMENOrdering Facility: [facility] Address: [address] [place] [address] Performed By: #### A LLBG ####[facility] [id number] [place] [address] [place] HCO3 (Bld) [Moles/Vol] 25 mmol/L Normal 22-26 [facility] Comment on above: Order Comment: Speci men Type: ARTERIAL BLOOD SPECIMENOrdering Facility: [facility] Address: [address] [place] [address] Performed By: #### A LLBG ####[facility] [id number] [place] [address] [place] Hematocrit (Bld) [Volume fraction] 38.5 % Normal 36.0-46.0 [facility] Comment on above: Order Comment: Speci men Type: ARTERIAL BLOOD SPECIMENOrdering Facility: [facility] Address: [address] [place] [address] Performed By: #### A LLBG ####[facility] [id number] [place] [address] [place] Hemoglobin (Bld) [Mass/Vol] 12.5 g/dL Normal 11.5-15.5 [facility] Comment on above: Order Comment: Speci men Type: ARTERIAL BLOOD SPECIMENOrdering Facility: [facility] Address: [address] [place] [address] Performed By: #### A LLBG ####[facility] [id number] [place] [address] [place] Lactate [Moles/Vol] 1.0 mmol/L Normal 0.5-2.2 [facility] Comment on above: Order Comment: Speci men Type: ARTERIAL BLOOD SPECIMENOrdering Facility: [facility] Address: [address] [place] [address] Performed By: #### A LLBG ####[facility] [id number] [place] [address] [place] Methemoglobin (Bld) [Mass fraction] 0.8 % Normal 0.0-1.5 [facility] Comment on above: Order Comment: Speci men Type: ARTERIAL BLOOD SPECIMENOrdering Facility: [facility] Address: [address] [place] [address] Performed By: #### A LLBG ####[facility] [id number] [place] [address] [place] O2 THERAPY Positive Normal [facility] Comment on above: Order Comment: Speci men Type: ARTERIAL BLOOD SPECIMENOrdering Facility: [facility] Address: [address] [place] [address] Performed By: #### A LLBG ####[facility] [id number] [place] [address] [place] Oxygen (Bld) [Partial pressure] 117 mm Hg High 85-95 [facility] Comment on above: Order Comment: Speci men Type: ARTERIAL BLOOD SPECIMENOrdering Facility: [facility] Address: [address] [place] [address] Performed By: #### A LLBG ####[facility] [id number] [place] [address] [place] Oxyhemoglobin (BldA) [Mass fraction] 95 % Normal 95-98 [facility] Comment on above: Order Comment: Speci men Type: ARTERIAL BLOOD SPECIMENOrdering Facility: [facility] Address: [address] [place] [address] Performed By: #### A LLBG ####[facility] [id number] [place] [address] [place] pH (Bld) 7.38 [pH] Normal 7.35-7.45 [facility] Comment on above: Order Comment: Speci men Type: ARTERIAL BLOOD SPECIMENOrdering Facility: [facility] Address: [address] [place] [address] Performed By: #### A LLBG ####[facility] [id number] [place] [address] [place] Potassium [Moles/Vol] 4.6 mmol/L Normal 3.5-5.0 [facility] Comment on above: Order Comment: Speci men Type: ARTERIAL BLOOD SPECIMENOrdering Facility: [facility] Address: [address] [place] [address] Performed By: #### A LLBG ####[facility] [id number] [place] [id number] [place] Sodium [Moles/Vol] 134 mmol/L Low 136-144 [facility] Comment on above: Order Comment: Speci men Type: ARTERIAL BLOOD SPECIMENOrdering Facility: [facility] Address: [address] [place] [address] Performed By: #### A LLBG ####[facility] [id number] [place] [address] [place] Base excess Calc (Bld) [Moles/Vol] 1 mmol/L Normal 0-2 [facility] Comment on above: Order Comment: Speci men Type: ARTERIAL BLOOD SPECIMENOrdering Facility: [facility] Address: [address] [place] [address] Performed By: #### A LLBG ####[facility] [id number] [place] [address] [place] Body temperature 98.6 [degF] Normal [facility] Comment on above: Order Comment: Speci men Type: ARTERIAL BLOOD SPECIMENOrdering Facility: [facility] Address: [address] [place] [address] Performed By: #### A LLBG ####[facility] [id number] [place] [address] [place] Calcium.ionized (Bld) [Mass/Vol] 1.33 mmol/L High 1.08-1.30 [facility] Comment on above: Order Comment: Speci men Type: ARTERIAL BLOOD SPECIMENOrdering Facility: [facility] Address: [address] [place] [address] Performed By: #### A LLBG ####[facility] [id number] [place] [address] [place] Calcium.ionized adjusted to pH 7.4 (BldA) [Moles/Vol] 1.31 mmol/L High 1.08-1.30 [facility] Comment on above: Order Comment: Speci men Type: ARTERIAL BLOOD SPECIMENOrdering Facility: [facility] Address: [address] [place] [address] Performed By: #### A LLBG ####[facility] [id number] [place] [address] [place] Carboxyhemoglobin (BldA) [Mass fraction] 1.5 % Normal 0.0-2.0 [facility] Comment on above: Order Comment: Speci men Type: ARTERIAL BLOOD SPECIMENOrdering Facility: [facility] Address: [address] [place] [address] Result Comment: Carb oxyhemoglobin Reference Range for Smokers: 2.0-8.0% Performed By: #### A LLBG ####[facility] [id number] [place] [address] [place] CO2 (Bld) [Partial pressure] 45 mm Hg Normal 36-46 [facility] Comment on above: Order Comment: Speci men Type: ARTERIAL BLOOD SPECIMENOrdering Facility: [facility] Address: [address] [place] [address] Performed By: #### A LLBG ####[facility] [id number] [place] [address] [place] FIO2 40 % Normal [facility] Comment on above: Order Comment: Speci men Type: ARTERIAL BLOOD SPECIMENOrdering Facility: [facility] Address: [address] [place] [address] Performed By: #### A LLBG ####[facility] [id number] [place] [address] [place] Glucose [Mass/Vol] 122 mg/dL High 60-105 [facility] Comment on above: Order Comment: Speci men Type: ARTERIAL BLOOD SPECIMENOrdering Facility: [facility] Address: [address] [place] [address] Performed By: #### A LLBG ####[facility] [id number] [place] [address] [place] HCO3 (Bld) [Moles/Vol] 26 mmol/L Normal 22-26 [facility] Comment on above: Order Comment: Speci men Type: ARTERIAL BLOOD SPECIMENOrdering Facility: [facility] Address: [address] [place] [address] Performed By: #### A LLBG ####[facility] [id number] [place] [address] [place] Hematocrit (Bld) [Volume fraction] 38.3 % Normal 36.0-46.0 [facility] Comment on above: Order Comment: Speci men Type: ARTERIAL BLOOD SPECIMENOrdering Facility: [facility] Address: [address] [place] [address] Performed By: #### A LLBG ####[facility] [id number] [place] [address] [place] Hemoglobin (Bld) [Mass/Vol] 12.5 g/dL Normal 11.5-15.5 [facility] Comment on above: Order Comment: Speci men Type: ARTERIAL BLOOD SPECIMENOrdering Facility: [facility] Address: [address] [place] [address] Performed By: #### A LLBG ####[facility] [id number] [place] [address] [place] Lactate [Moles/Vol] 2.5 mmol/L High 0.5-2.2 [facility] Comment on above: Order Comment: Speci men Type: ARTERIAL BLOOD SPECIMENOrdering Facility: [facility] Address: [address] [place] [address] Performed By: #### A LLBG ####[facility] [id number] [place] [address] [place] Methemoglobin (Bld) [Mass fraction] 1.5 % Normal 0.0-1.5 [facility] Comment on above: Order Comment: Speci men Type: ARTERIAL BLOOD SPECIMENOrdering Facility: [facility] Address: [address] [place] [address] Performed By: #### A LLBG ####[facility] [id number] [place] [id number] [place] O2 THERAPY Ventilator Normal [facility] Comment on above: Order Comment: Speci men Type: ARTERIAL BLOOD SPECIMENOrdering Facility: [facility] Address: [address] [place] [address] Performed By: #### A LLBG ####[facility] [id number] [place] [address] [place] Oxygen (Bld) [Partial pressure] 179 mm Hg High 85-95 [facility] Comment on above: Order Comment: Speci men Type: ARTERIAL BLOOD SPECIMENOrdering Facility: [facility] Address: [address] [place] [address] Performed By: #### A LLBG ####[facility] [id number] [place] [address] [place] Oxyhemoglobin (BldA) [Mass fraction] 96 % Normal 95-98 [facility] Comment on above: Order Comment: Speci men Type: ARTERIAL BLOOD SPECIMENOrdering Facility: [facility] Address: [address] [place] [address] Performed By: #### A LLBG ####[facility] [id number] [place] [id number] [place] pH (Bld) 7.37 [pH] Normal 7.35-7.45 [facility] Comment on above: Order Comment: Speci men Type: ARTERIAL BLOOD SPECIMENOrdering Facility: [facility] Address: [address] [place] [address] Performed By: #### A LLBG ####[facility] [id number] [place] [id number] [place] PO2 / FIO2 RATIO 448 mmHg Normal >300 [facility] Comment on above: Order Comment: Speci men Type: ARTERIAL BLOOD SPECIMENOrdering Facility: [facility] Address: [address] [place] [address] Performed By: #### A LLBG ####[facility] [id number] [place] [address] [place] Potassium [Moles/Vol] 4.8 mmol/L Normal 3.5-5.0 [facility] Comment on above: Order Comment: Speci men Type: ARTERIAL BLOOD SPECIMENOrdering Facility: [facility] Address: [address] [place] [address] Performed By: #### A LLBG ####[facility] [id number] [place] [address] [place] Sodium [Moles/Vol] 135 mmol/L Low 136-144 [facility] Comment on above: Order Comment: Speci men Type: ARTERIAL BLOOD SPECIMENOrdering Facility: [facility] Address: [address] [place] [address] Performed By: #### A LLBG ####[facility] [id number] [place] [address] [place] Base deficit (BldA) [Moles/Vol] -1 mmol/L Normal -2-0 [facility] Comment on above: Order Comment: Speci men Type: ARTERIAL BLOOD SPECIMENOrdering Facility: [facility] Address: [address] [place] [address] Performed By: #### A LLBG ####[facility] [id number] [place] [address] [place] Calcium.ionized (Bld) [Mass/Vol] 1.26 mmol/L Normal 1.08-1.30 [facility] Comment on above: Order Comment: Speci men Type: ARTERIAL BLOOD SPECIMENOrdering Facility: [facility] Address: [address] [place] [address] Performed By: #### A LLBG ####[facility] [id number] [place] [address] [place] Calcium.ionized adjusted to pH 7.4 (BldA) [Moles/Vol] 1.22 mmol/L Normal 1.08-1.30 [facility] Comment on above: Order Comment: Speci men Type: ARTERIAL BLOOD SPECIMENOrdering Facility: [facility] Address: [address] [place] [address] Performed By: #### A LLBG ####[facility] [id number] [place] [address] [place] Carboxyhemoglobin (BldA) [Mass fraction] 1.6 % Normal 0.0-2.0 [facility] Comment on above: Order Comment: Speci men Type: ARTERIAL BLOOD SPECIMENOrdering Facility: [facility] Address: [address] [place] [address] Result Comment: Carb oxyhemoglobin Reference Range for Smokers: 2.0-8.0% Performed By: #### A LLBG ####[facility] [id number] [place] [address] [place] CO2 (Bld) [Partial pressure] 49 mm Hg High 36-46 [facility] Comment on above: Order Comment: Speci men Type: ARTERIAL BLOOD SPECIMENOrdering Facility: [facility] Address: [address] [place] [address] Performed By: #### A LLBG ####[facility] [id number] [place] [address] [place] CO2 adjusted to patient's actual temperature (Bld) [Partial pressure] 49 mmHg High 36-46 [facility] Comment on above: Order Comment: Speci men Type: ARTERIAL BLOOD SPECIMENOrdering Facility: [facility] Address: [address] [place] [address] Performed By: #### A LLBG ####[facility] [id number] [place] [address] [place] Glucose [Mass/Vol] 140 mg/dL High 60-105 [facility] Comment on above: Order Comment: Speci men Type: ARTERIAL BLOOD SPECIMENOrdering Facility: [facility] Address: [address] [place] [address] Performed By: #### A LLBG ####[facility] [id number] [place] [address] [place] HCO3 (Bld) [Moles/Vol] 25 mmol/L Normal 22-26 [facility] Comment on above: Order Comment: Speci men Type: ARTERIAL BLOOD SPECIMENOrdering Facility: [facility] Address: [address] [place] [address] Performed By: #### A LLBG ####[facility] LABCLIA [id number] [place] [address] [place] Hematocrit (Bld) [Volume fraction] 30.8 % Low 36.0-46.0 [facility] Comment on above: Order Comment: Speci men Type: ARTERIAL BLOOD SPECIMENOrdering Facility: [facility] Address: [address] [place] [address] Performed By: #### A LLBG ####[facility] LABCLIA [id number] [place] [address] [place] Hemoglobin (Bld) [Mass/Vol] 10.0 g/dL Low 11.5-15.5 [facility] Comment on above: Order Comment: Speci men Type: ARTERIAL BLOOD SPECIMENOrdering Facility: [facility] Address: [address] [place] [address] Performed By: #### A LLBG ####[facility] LABCLIA [id number] [place] [address] [place] Lactate [Moles/Vol] 2.6 mmol/L High 0.5-2.2 [facility] Comment on above: Order Comment: Speci men Type: ARTERIAL BLOOD SPECIMENOrdering Facility: [facility] Address: [address] [place] [address] Performed By: #### A LLBG ####[facility] LABCLIA [id number] [address] [address] [place] Methemoglobin (Bld) [Mass fraction] 1.5 % Normal 0.0-1.5 [facility] Comment on above: Order Comment: Speci men Type: ARTERIAL BLOOD SPECIMENOrdering Facility: [facility] Address: [address] [place] [id number] Performed By: #### A LLBG ####[facility] LABCLIA [id number] [place] [id number] [place] Oxygen (Bld) [Partial pressure] 200 mm Hg High 85-95 [facility] Comment on above: Order Comment: Speci men Type: ARTERIAL BLOOD SPECIMENOrdering Facility: [facility] Address: [address] [place] [id number] Performed By: #### A LLBG ####[facility] LABCLIA [id number] [place] [address] [place] Oxygen adjusted to patient's actual temperature (Bld) [Partial pressure] 200 mmHg High 85-95 [facility] Comment on above: Order Comment: Speci men Type: ARTERIAL BLOOD SPECIMENOrdering Facility: [facility] Address: [address] [place] [address] Performed By: #### A LLBG ####[facility] LABCLIA [id number] [address] [address] [place] Oxyhemoglobin (BldA) [Mass fraction] 96 % Normal 95-98 [facility] Comment on above: Order Comment: Speci men Type: ARTERIAL BLOOD SPECIMENOrdering Facility: [facility] Address: [address] [place] [address] Performed By: #### A LLBG ####[facility] LABCLIA [id number] [place] [address] [place] pH (Bld) 7.33 [pH] Low 7.35-7.45 [facility] Comment on above: Order Comment: Speci men Type: ARTERIAL BLOOD SPECIMENOrdering Facility: [facility] Address: [address] [place] [address] Performed By: #### A LLBG ####[facility] LABCLIA [id number] [place] [address] [place] pH adjusted to patient's actual temperature (Bld) 7.33 Low 7.35-7.45 [facility] Comment on above: Order Comment: Speci men Type: ARTERIAL BLOOD SPECIMENOrdering Facility: [facility] Address: [address] [place] [address] Performed By: #### A LLBG ####[facility] LABIA [id number] [place] [address] [place] Potassium [Moles/Vol] 3.6 mmol/L Normal 3.5-5.0 [facility] Comment on above: Order Comment: Speci men Type: ARTERIAL BLOOD SPECIMENOrdering Facility: [facility] Address: [address] [place] [address] Performed By: #### A LLBG ####[facility] LABIA [id number] [place] [address] [place] Sodium [Moles/Vol] 134 mmol/L Low 136-144 [facility] Comment on above: Order Comment: Speci men Type: ARTERIAL BLOOD SPECIMENOrdering Facility: [facility] Address: [address] [place] [address] Performed By: #### A LLBG ####[facility] LABCLIA [id number] [place] [address] [place] Base excess Calc (Bld) [Moles/Vol] 0 mmol/L Normal 0-2 [facility] Comment on above: Order Comment: Speci men Type: ARTERIAL BLOOD SPECIMENOrdering Facility: [facility] Address: [address] [place] [address] Performed By: #### A LLBG ####[facility] LABCLIA [id number] [place] [address] [place] Calcium.ionized (Bld) [Mass/Vol] 1.10 mmol/L Normal 1.08-1.30 [facility] Comment on above: Order Comment: Speci men Type: ARTERIAL BLOOD SPECIMENOrdering Facility: [facility] Address: [address] [place] [address] Performed By: #### A LLBG ####[facility] LABIA [id number] [place] [address] [place] Calcium.ionized adjusted to pH 7.4 (BldA) [Moles/Vol] 1.11 mmol/L Normal 1.08-1.30 [facility] Comment on above: Order Comment: Speci men Type: ARTERIAL BLOOD SPECIMENOrdering Facility: [facility] Address: [address] [place] [address] Performed By: #### A LLBG ####[facility] LABIA [id number] [place] [address] [place] Carboxyhemoglobin (BldA) [Mass fraction] 2.1 % High 0.0-2.0 [facility] Comment on above: Order Comment: Speci men Type: ARTERIAL BLOOD SPECIMENOrdering Facility: [facility] Address: [address] [place] [address] Result Comment: Carb oxyhemoglobin Reference Range for Smokers: 2.0-8.0% Performed By: #### A LLBG ####[facility] LABIA [id number] [place] [address] [place] CO2 (Bld) [Partial pressure] 39 mm Hg Normal 36-46 [facility] Comment on above: Order Comment: Speci men Type: ARTERIAL BLOOD SPECIMENOrdering Facility: [facility] Address: [address] [place] [address] Performed By: #### A LLBG ####[facility] LABCLIA [id number] [place] [address] [place] CO2 adjusted to patient's actual temperature (Bld) [Partial pressure] 39 mmHg Normal 36-46 [facility] Comment on above: Order Comment: Speci men Type: ARTERIAL BLOOD SPECIMENOrdering Facility: [facility] Address: [address] [place] [address] Performed By: #### A LLBG ####[facility] LABCLIA [id number] [place] [address] [place] Glucose [Mass/Vol] 209 mg/dL High 60-105 [facility] Comment on above: Order Comment: Speci men Type: ARTERIAL BLOOD SPECIMENOrdering Facility: [facility] Address: [address] [place] [address] Performed By: #### A LLBG ####[facility] LABCLIA [id number] [place] [address] [place] HCO3 (Bld) [Moles/Vol] 24 mmol/L Normal 22-26 [facility] Comment on above: Order Comment: Speci men Type: ARTERIAL BLOOD SPECIMENOrdering Facility: [facility] Address: [address] [place] [address] Performed By: #### A LLBG ####[facility] LABCLIA [id number] [place] [address] [place] Hematocrit (Bld) [Volume fraction] 28.4 % Low 36.0-46.0 [facility] Comment on above: Order Comment: Speci men Type: ARTERIAL BLOOD SPECIMENOrdering Facility: [facility] Address: [address] [place] [address] Performed By: #### A LLBG ####[facility] LABCLIA [id number] [place] [address] [place] Hemoglobin (Bld) [Mass/Vol] 9.1 g/dL Low 11.5-15.5 [facility] Comment on above: Order Comment: Speci men Type: ARTERIAL BLOOD SPECIMENOrdering Facility: [facility] Address: [address] [place] [address] Performed By: #### A LLBG ####[facility] LABCLIA [id number] [place] [address] [place] Lactate [Moles/Vol] 3.9 mmol/L High 0.5-2.2 [facility] Comment on above: Order Comment: Speci men Type: ARTERIAL BLOOD SPECIMENOrdering Facility: [facility] Address: [address] [place] [address] Performed By: #### A LLBG ####[facility] LABCLIA [id number] [place] [address] [place] Methemoglobin (Bld) [Mass fraction] 0.9 % Normal 0.0-1.5 [facility] Comment on above: Order Comment: Speci men Type: ARTERIAL BLOOD SPECIMENOrdering Facility: [facility] Address: [address] [place] [address] Performed By: #### A LLBG ####[facility] LABCLIA [id number] [place] [address] [place] Oxygen (Bld) [Partial pressure] 376 mm Hg High 85-95 [facility] Comment on above: Order Comment: Speci men Type: ARTERIAL BLOOD SPECIMENOrdering Facility: [facility] Address: [address] [place] [address] Performed By: #### A LLBG ####[facility] LABCLIA [id number] [place] [address] [place] Oxygen adjusted to patient's actual temperature (Bld) [Partial pressure] 376 mmHg High 85-95 [facility] Comment on above: Order Comment: Speci men Type: ARTERIAL BLOOD SPECIMENOrdering Facility: [facility] Address: [address] [place] [address] Performed By: #### A LLBG ####[facility] LABCLIA [id number] [place] [address] [place] Oxyhemoglobin (BldA) [Mass fraction] 97 % Normal 95-98 [facility] Comment on above: Order Comment: Speci men Type: ARTERIAL BLOOD SPECIMENOrdering Facility: [facility] Address: [address] [place] [address] Performed By: #### A LLBG ####[facility] LABCLIA [id number] [place] [address] [place] pH (Bld) 7.41 [pH] Normal 7.35-7.45 [facility] Comment on above: Order Comment: Speci men Type: ARTERIAL BLOOD SPECIMENOrdering Facility: [facility] Address: [address] [place] [address] Performed By: #### A LLBG ####[facility] LABCLIA [id number] [place] [address] [place] pH adjusted to patient's actual temperature (Bld) 7.41 Normal 7.35-7.45 [facility] Comment on above: Order Comment: Speci men Type: ARTERIAL BLOOD SPECIMENOrdering Facility: [facility] Address: [address] [place] [address] Performed By: #### A LLBG ####[facility] LABCLIA [id number] [place] [address] [place] Potassium [Moles/Vol] 4.4 mmol/L Normal 3.5-5.0 [facility] Comment on above: Order Comment: Speci men Type: ARTERIAL BLOOD SPECIMENOrdering Facility: [facility] Address: [address] [place] [address] Performed By: #### A LLBG ####[facility] LABCLIA [id number] [place] [address] [place] Sodium [Moles/Vol] 133 mmol/L Low 136-144 [facility] Comment on above: Order Comment: Speci men Type: ARTERIAL BLOOD SPECIMENOrdering Facility: [facility] Address: [address] [place] [address] Performed By: #### A LLBG ####[facility] LABIA [id number] [place] [address] [place] Base excess Calc (Bld) [Moles/Vol] 0 mmol/L Normal 0-2 [facility] Comment on above: Order Comment: Speci men Type: ARTERIAL BLOOD SPECIMENOrdering Facility: [facility] Address: [address] [place] [address] Performed By: #### A LLBG ####[facility] LABIA [id number] [place] [address] [place] Calcium.ionized (Bld) [Mass/Vol] 1.08 mmol/L Normal 1.08-1.30 [facility] Comment on above: Order Comment: Speci men Type: ARTERIAL BLOOD SPECIMENOrdering Facility: [facility] Address: [address] [place] [address] Performed By: #### A LLBG ####[facility] LABIA [id number] [place] [address] [place] Calcium.ionized adjusted to pH 7.4 (BldA) [Moles/Vol] 1.06 mmol/L Low 1.08-1.30 [facility] Comment on above: Order Comment: Speci men Type: ARTERIAL BLOOD SPECIMENOrdering Facility: [facility] Address: [address] [place] [address] Performed By: #### A LLBG ####[facility] LABIA [id number] [place] [address] [place] Carboxyhemoglobin (BldA) [Mass fraction] 2.0 % Normal 0.0-2.0 [facility] Comment on above: Order Comment: Speci men Type: ARTERIAL BLOOD SPECIMENOrdering Facility: [facility] Address: [address] [place] [address] Result Comment: Carb oxyhemoglobin Reference Range for Smokers: 2.0-8.0% Performed By: #### A LLBG ####[facility] LABCLIA [id number] [place] [address] [place] CO2 (Bld) [Partial pressure] 44 mm Hg Normal 36-46 [facility] Comment on above: Order Comment: Speci men Type: ARTERIAL BLOOD SPECIMENOrdering Facility: [facility] Address: [address] [place] [address] Performed By: #### A LLBG ####[facility] LABCLIA [id number] [place] [address] [place] CO2 adjusted to patient's actual temperature (Bld) [Partial pressure] 44 mmHg Normal 36-46 [facility] Comment on above: Order Comment: Speci men Type: ARTERIAL BLOOD SPECIMENOrdering Facility: [facility] Address: [address] [place] [address] Performed By: #### A LLBG ####[facility] LABCLIA [id number] [place] [address] [place] Glucose [Mass/Vol] 253 mg/dL High 60-105 [facility] Comment on above: Order Comment: Speci men Type: ARTERIAL BLOOD SPECIMENOrdering Facility: [facility] Address: [address] [place] [address] Performed By: #### A LLBG ####[facility] LABCLIA [id number] [place] [address] [place] HCO3 (Bld) [Moles/Vol] 25 mmol/L Normal 22-26 [facility] Comment on above: Order Comment: Speci men Type: ARTERIAL BLOOD SPECIMENOrdering Facility: [facility] Address: [address] [place] [address] Performed By: #### A LLBG ####[facility] LABCLIA [id number] [place] [address] [place] Hematocrit (Bld) [Volume fraction] 28.3 % Low 36.0-46.0 [facility] Comment on above: Order Comment: Speci men Type: ARTERIAL BLOOD SPECIMENOrdering Facility: [facility] Address: [address] [place] [address] Performed By: #### A LLBG ####[facility] LABIA [id number] [place] [address] [place] Hemoglobin (Bld) [Mass/Vol] 9.1 g/dL Low 11.5-15.5 [facility] Comment on above: Order Comment: Speci men Type: ARTERIAL BLOOD SPECIMENOrdering Facility: [facility] Address: [address] [place] [address] Performed By: #### A LLBG ####[facility] LABIA [id number] [place] [address] [place] Lactate [Moles/Vol] 4.4 mmol/L High 0.5-2.2 [facility] Comment on above: Order Comment: Speci men Type: ARTERIAL BLOOD SPECIMENOrdering Facility: [facility] Address: [address] [place] [address] Performed By: #### A LLBG ####[facility] LABIA [id number] [place] [address] [place] Methemoglobin (Bld) [Mass fraction] 0.9 % Normal 0.0-1.5 [facility] Comment on above: Order Comment: Speci men Type: ARTERIAL BLOOD SPECIMENOrdering Facility: [facility] Address: [address] [place] [address] Performed By: #### A LLBG ####[facility] LABIA [id number] [address] [address] [id number] [address] [place] Oxygen (Bld) [Partial pressure] 295 mm Hg High 85-95 [facility] Comment on above: Order Comment: Speci men Type: ARTERIAL BLOOD SPECIMENOrdering Facility: [facility] Address: [address] [place] [address] Performed By: #### A LLBG ####[facility] LABCLIA [id number] [address] [address] [place] Oxygen adjusted to patient's actual temperature (Bld) [Partial pressure] 295 mmHg High 85-95 [facility] Comment on above: Order Comment: Speci men Type: ARTERIAL BLOOD SPECIMENOrdering Facility: [facility] Address: [address] [place] [address] Performed By: #### A LLBG ####[facility] LABCLIA [id number] [place] [address] [place] Oxyhemoglobin (BldA) [Mass fraction] 97 % Normal 95-98 [facility] Comment on above: Order Comment: Speci men Type: ARTERIAL BLOOD SPECIMENOrdering Facility: [facility] Address: [address] [place] [address] Performed By: #### A LLBG ####[facility] LABCLIA [id number] [place] [address] [place] pH (Bld) 7.37 [pH] Normal 7.35-7.45 [facility] Comment on above: Order Comment: Speci men Type: ARTERIAL BLOOD SPECIMENOrdering Facility: [facility] Address: [address] [place] [address] Performed By: #### A LLBG ####[facility] LABCLIA [id number] [place] [address] [place] pH adjusted to patient's actual temperature (Bld) 7.37 Normal 7.35-7.45 [facility] Comment on above: Order Comment: Speci men Type: ARTERIAL BLOOD SPECIMENOrdering Facility: [facility] Address: [address] [place], [place] [address] Performed By: #### A LLBG ####[facility] LABCLIA [id number] [place] [address] [place] Potassium [Moles/Vol] 4.9 mmol/L Normal 3.5-5.0 [facility] Comment on above: Order Comment: Speci men Type: ARTERIAL BLOOD SPECIMENOrdering Facility: [facility] Address: [address] [place] [address] Performed By: #### A LLBG ####[facility] LABCLIA [id number] [place] [address] [place] Sodium [Moles/Vol] 132 mmol/L Low 136-144 [facility] Comment on above: Order Comment: Speci men Type: ARTERIAL BLOOD SPECIMENOrdering Facility: [facility] Address: [address] [place] [address] Performed By: #### A LLBG ####[facility] LABCLIA [id number] [place] [address] [place] Base deficit (BldA) [Moles/Vol] -3 mmol/L Low -2-0 [facility] Comment on above: Order Comment: Speci men Type: ARTERIAL BLOOD SPECIMENOrdering Facility: [facility] Address: [address] [place] [address] Performed By: #### A LLBG ####[facility] LABCLIA [id number] [place] [address] [place] Calcium.ionized (Bld) [Mass/Vol] 1.20 mmol/L Normal 1.08-1.30 [facility] Comment on above: Order Comment: Speci men Type: ARTERIAL BLOOD SPECIMENOrdering Facility: [facility] Address: [address] [place] [address] Performed By: #### A LLBG ####[facility] LABIA [id number] [place] [address] [place] Calcium.ionized adjusted to pH 7.4 (BldA) [Moles/Vol] 1.18 mmol/L Normal 1.08-1.30 [facility] Comment on above: Order Comment: Speci men Type: ARTERIAL BLOOD SPECIMENOrdering Facility: [facility] Address: [address] [place] [address] Performed By: #### A LLBG ####[facility] LABCLIA [id number] [place] [address] [place] Carboxyhemoglobin (BldA) [Mass fraction] 1.6 % Normal 0.0-2.0 [facility] Comment on above: Order Comment: Speci men Type: ARTERIAL BLOOD SPECIMENOrdering Facility: [facility] Address: [address] [place] [address] Result Comment: Carb oxyhemoglobin Reference Range for Smokers: 2.0-8.0% Performed By: #### A LLBG ####[facility] LABCLIA [id number] [place] [address] [place] CO2 (Bld) [Partial pressure] 40 mm Hg Normal 36-46 [facility] Comment on above: Order Comment: Speci men Type: ARTERIAL BLOOD SPECIMENOrdering Facility: [facility] Address: [address] [place] [address] Performed By: #### A LLBG ####[facility] LABCLIA [id number] [place] [address] [place] CO2 adjusted to patient's actual temperature (Bld) [Partial pressure] 40 mmHg Normal 36-46 [facility] Comment on above: Order Comment: Speci men Type: ARTERIAL BLOOD SPECIMENOrdering Facility: [facility] Address: [address] [place] [address] Performed By: #### A LLBG ####[facility] LABCLIA [id number] [place] [address] [place] Glucose [Mass/Vol] 209 mg/dL High 60-105 [facility] Comment on above: Order Comment: Speci men Type: ARTERIAL BLOOD SPECIMENOrdering Facility: [facility] Address: [address] [place] [address] Performed By: #### A LLBG ####[facility] LABCLIA [id number] [place] [address] [place] HCO3 (Bld) [Moles/Vol] 22 mmol/L Normal 22-26 [facility] Comment on above: Order Comment: Speci men Type: ARTERIAL BLOOD SPECIMENOrdering Facility: [facility] Address: [address] [place] [address] Performed By: #### A LLBG ####[facility] LABIA [id number] [place] [address] [place] Hematocrit (Bld) [Volume fraction] 33.5 % Low 36.0-46.0 [facility] Comment on above: Order Comment: Speci men Type: ARTERIAL BLOOD SPECIMENOrdering Facility: [facility] Address: [address] [place] [address] Performed By: #### A LLBG ####[facility] LABIA [id number] [place] [address] [place] Hemoglobin (Bld) [Mass/Vol] 10.9 g/dL Low 11.5-15.5 [facility] Comment on above: Order Comment: Speci men Type: ARTERIAL BLOOD SPECIMENOrdering Facility: [facility] Address: [address] [place] [address] Performed By: #### A LLBG ####[facility] LABCLIA [id number] [place] [address] [place] Lactate [Moles/Vol] 3.0 mmol/L High 0.5-2.2 [facility] Comment on above: Order Comment: Speci men Type: ARTERIAL BLOOD SPECIMENOrdering Facility: [facility] Address: [address] [place] [address] Performed By: #### A LLBG ####[facility] LABCLIA [id number] [address] [address] [place] Methemoglobin (Bld) [Mass fraction] 1.6 % High 0.0-1.5 [facility] Comment on above: Order Comment: Speci men Type: ARTERIAL BLOOD SPECIMENOrdering Facility: [facility] Address: [address] [place] [address] Performed By: #### A LLBG ####[facility] LABCLIA [id number] [place] [id number] [place] Oxygen (Bld) [Partial pressure] 359 mm Hg High 85-95 [facility] Comment on above: Order Comment: Speci men Type: ARTERIAL BLOOD SPECIMENOrdering Facility: [facility] Address: [address] [place] [address] Performed By: #### A LLBG ####[facility] LABCLIA [id number] [place] [address] [place] Oxygen adjusted to patient's actual temperature (Bld) [Partial pressure] 359 mmHg High 85-95 [facility] Comment on above: Order Comment: Speci men Type: ARTERIAL BLOOD SPECIMENOrdering Facility: [facility] Address: [address] [place], [place] [address] Performed By: #### A LLBG ####[facility] LABIA [id number] [place] [id number] [place] Oxyhemoglobin (BldA) [Mass fraction] 96 % Normal 95-98 [facility] Comment on above: Order Comment: Speci men Type: ARTERIAL BLOOD SPECIMENOrdering Facility: [facility] Address: [address] [place] [address] Performed By: #### A LLBG ####[facility] LABCLIA [id number] [place] [id number] [place] pH (Bld) 7.36 [pH] Normal 7.35-7.45 [facility] Comment on above: Order Comment: Speci men Type: ARTERIAL BLOOD SPECIMENOrdering Facility: [facility] Address: [address] [place] [address] Performed By: #### A LLBG ####[facility] LABIA [id number] [place] [address] [place] pH adjusted to patient's actual temperature (Bld) 7.36 Normal 7.35-7.45 [facility] System Comment on above: Order Comment: Speci men Type: ARTERIAL BLOOD SPECIMENOrdering Facility: [facility] Address: [address] [place] [address] Performed By: #### A LLBG ####[facility] LABIA [id number] [place] [address] [place] Potassium [Moles/Vol] 5.0 mmol/L Normal 3.5-5.0 [facility] Comment on above: Order Comment: Speci men Type: ARTERIAL BLOOD SPECIMENOrdering Facility: [facility] Address: [address] [place] [address] Performed By: #### A LLBG ####[facility] LABIA [id number] [place] [address] [place] Sodium [Moles/Vol] 133 mmol/L Low 136-144 [facility] Comment on above: Order Comment: Speci men Type: ARTERIAL BLOOD SPECIMENOrdering Facility: [facility] Address: [address] [place] [address] Performed By: #### A LLBG ####[facility] LABIA [id number] [place] [address] [place] Base deficit (BldA) [Moles/Vol] -3 mmol/L Low -2-0 [facility] Comment on above: Order Comment: Speci men Type: ARTERIAL BLOOD SPECIMENOrdering Facility: [facility] Address: [address] [place] [address] Performed By: #### A LLBG ####[facility] LABIA [id number] [place] [address] [place] Calcium.ionized (Bld) [Mass/Vol] 1.16 mmol/L Normal 1.08-1.30 [facility] Comment on above: Order Comment: Speci men Type: ARTERIAL BLOOD SPECIMENOrdering Facility: [facility] Address: [address] [place] [address] Performed By: #### A LLBG ####[facility] LABIA [id number] [place] [address] [place] Calcium.ionized adjusted to pH 7.4 (BldA) [Moles/Vol] 1.14 mmol/L Normal 1.08-1.30 [facility] Comment on above: Order Comment: Speci men Type: ARTERIAL BLOOD SPECIMENOrdering Facility: [facility] Address: [address] [place] [address] Performed By: #### A LLBG ####[facility] [id number] [place] [address] [place] Carboxyhemoglobin (BldA) [Mass fraction] 1.0 % Normal 0.0-2.0 [facility] Comment on above: Order Comment: Speci men Type: ARTERIAL BLOOD SPECIMENOrdering Facility: [facility] Address: [address] [place] [address] Result Comment: Carb oxyhemoglobin Reference Range for Smokers: 2.0-8.0% Performed By: #### A LLBG ####[facility] LABIA [id number] [place] [address] [place] CO2 (Bld) [Partial pressure] 38 mm Hg Normal 36-46 [facility] Comment on above: Order Comment: Speci men Type: ARTERIAL BLOOD SPECIMENOrdering Facility: [facility] Address: [address] [place] [address] Performed By: #### A LLBG ####[facility] LABIA [id number] [place] [address] [place] CO2 adjusted to patient's actual temperature (Bld) [Partial pressure] 38 mmHg Normal 36-46 [facility] Comment on above: Order Comment: Speci men Type: ARTERIAL BLOOD SPECIMENOrdering Facility: [facility] Address: [address] [place] [address] Performed By: #### A LLBG ####[facility] LABCLIA [id number] [place] [address] [place] Glucose [Mass/Vol] 242 mg/dL High 60-105 [facility] Comment on above: Order Comment: Speci men Type: ARTERIAL BLOOD SPECIMENOrdering Facility: [facility] Address: [address] [place] [address] Performed By: #### A LLBG ####[facility] LABCLIA [id number] [place] [address] [place] HCO3 (Bld) [Moles/Vol] 21 mmol/L Low 22-26 [facility] Comment on above: Order Comment: Speci men Type: ARTERIAL BLOOD SPECIMENOrdering Facility: [facility] Address: [address] [place] [address] Performed By: #### A LLBG ####[facility] LABCLIA [id number] [place] [address] [place] Hematocrit (Bld) [Volume fraction] 33.0 % Low 36.0-46.0 [facility] Comment on above: Order Comment: Speci men Type: ARTERIAL BLOOD SPECIMENOrdering Facility: [facility] Address: [address] [place] [address] Performed By: #### A LLBG ####[facility] LABCLIA [id number] [place] [address] [place] Hemoglobin (Bld) [Mass/Vol] 10.7 g/dL Low 11.5-15.5 [facility] Comment on above: Order Comment: Speci men Type: ARTERIAL BLOOD SPECIMENOrdering Facility: [facility] Address: [address] [place] [address] Performed By: #### A LLBG ####[facility] LABCLIA [id number] [address] [address] [place] Methemoglobin (Bld) [Mass fraction] 0.9 % Normal 0.0-1.5 [facility] Comment on above: Order Comment: Speci men Type: ARTERIAL BLOOD SPECIMENOrdering Facility: [facility] Address: [address] [place] [id number] Performed By: #### A LLBG ####[facility] LABCLIA [id number] [address] [address] [place] Oxygen (Bld) [Partial pressure] 439 mm Hg High 85-95 [facility] Comment on above: Order Comment: Speci men Type: ARTERIAL BLOOD SPECIMENOrdering Facility: [facility] Address: [address] [place] [id number] Performed By: #### A LLBG ####[facility] LABCLIA [id number] [place] [address] [place] Oxygen adjusted to patient's actual temperature (Bld) [Partial pressure] 439 mmHg High 85-95 [facility] Comment on above: Order Comment: Speci men Type: ARTERIAL BLOOD SPECIMENOrdering Facility: [facility] Address: [address] [place] [address] Performed By: #### A LLBG ####[facility] LABCLIA [id number] [address] [address] [place] Oxyhemoglobin (BldA) [Mass fraction] 96 % Normal 95-98 [facility] Comment on above: Order Comment: Speci men Type: ARTERIAL BLOOD SPECIMENOrdering Facility: [facility] Address: [address] [place] [address] Performed By: #### A LLBG ####[facility] LABCLIA [id number] [place] [address] [place] pH (Bld) 7.37 [pH] Normal 7.35-7.45 [facility] Comment on above: Order Comment: Speci men Type: ARTERIAL BLOOD SPECIMENOrdering Facility: [facility] Address: [address] [place] [address] Performed By: #### A LLBG ####[facility] LABIA [id number] [place] [address] [place] pH adjusted to patient's actual temperature (Bld) 7.37 Normal 7.35-7.45 [facility] Comment on above: Order Comment: Speci men Type: ARTERIAL BLOOD SPECIMENOrdering Facility: [facility] Address: [address] [place] [address] Performed By: #### A LLBG ####[facility] LABIA [id number] [place] [address] [place] Potassium [Moles/Vol] 5.8 mmol/L High 3.5-5.0 [facility] Comment on above: Order Comment: Speci men Type: ARTERIAL BLOOD SPECIMENOrdering Facility: [facility] Address: [address] [place] [address] Performed By: #### A LLBG ####[facility] LABIA [id number] [place] [address] [place] Sodium [Moles/Vol] 129 mmol/L Low 136-144 [facility] Comment on above: Order Comment: Speci men Type: ARTERIAL BLOOD SPECIMENOrdering Facility: [facility] Address: [address] [place] [address] Performed By: #### A LLBG ####[facility] LABIA [id number] [place] [address] [place] Base deficit (BldA) [Moles/Vol] -2 mmol/L Normal -2-0 [facility] Comment on above: Order Comment: Speci men Type: ARTERIAL BLOOD SPECIMENOrdering Facility: [facility] Address: [address] [place] [address] Performed By: #### A LLBG ####[facility] [id number] [place] [address] [place] Calcium.ionized (Bld) [Mass/Vol] 1.29 mmol/L Normal 1.08-1.30 [facility] Comment on above: Order Comment: Speci men Type: ARTERIAL BLOOD SPECIMENOrdering Facility: [facility] Address: [address] [place] [address] Performed By: #### A LLBG ####[facility] [id number] [place] [address] [place] Calcium.ionized adjusted to pH 7.4 (BldA) [Moles/Vol] 1.24 mmol/L Normal 1.08-1.30 [facility] Comment on above: Order Comment: Speci men Type: ARTERIAL BLOOD SPECIMENOrdering Facility: [facility] Address: [address] [place] [address] Performed By: #### A LLBG ####[facility] [id number] [place] [address] [place] Carboxyhemoglobin (BldA) [Mass fraction] 1.7 % Normal 0.0-2.0 [facility] Comment on above: Order Comment: Speci men Type: ARTERIAL BLOOD SPECIMENOrdering Facility: [facility] Address: [address] [place] [address] Result Comment: Carb oxyhemoglobin Reference Range for Smokers: 2.0-8.0% Performed By: #### A LLBG ####[facility] [id number] [place] [address] [place] CO2 (Bld) [Partial pressure] 45 mm Hg Normal 36-46 [facility] Comment on above: Order Comment: Speci men Type: ARTERIAL BLOOD SPECIMENOrdering Facility: [facility] Address: [address] [place] [address] Performed By: #### A LLBG ####[facility] LABCLIA [id number] [place] [address] [place] CO2 adjusted to patient's actual temperature (Bld) [Partial pressure] 45 mmHg Normal 36-46 [facility] Comment on above: Order Comment: Speci men Type: ARTERIAL BLOOD SPECIMENOrdering Facility: [facility] Address: [address] [place] [address] Performed By: #### A LLBG ####[facility] LABCLIA [id number] [place] [address] [place] Glucose [Mass/Vol] 197 mg/dL High 60-105 [facility] Comment on above: Order Comment: Speci men Type: ARTERIAL BLOOD SPECIMENOrdering Facility: [facility] Address: [address] [place] [address] Performed By: #### A LLBG ####[facility] LABCLIA [id number] [place] [address] [place] HCO3 (Bld) [Moles/Vol] 23 mmol/L Normal 22-26 [facility] Comment on above: Order Comment: Speci men Type: ARTERIAL BLOOD SPECIMENOrdering Facility: [facility] Address: [address] [place] [address] Performed By: #### A LLBG ####[facility] LABCLIA [id number] [place] [address] [place] Hematocrit (Bld) [Volume fraction] 39.4 % Normal 36.0-46.0 [facility] Comment on above: Order Comment: Speci men Type: ARTERIAL BLOOD SPECIMENOrdering Facility: [facility] Address: [address] [place] [address] Performed By: #### A LLBG ####[facility] LABCLIA [id number] [address] [id number] [address] [place] Hemoglobin (Bld) [Mass/Vol] 12.8 g/dL Normal 11.5-15.5 [facility] Comment on above: Order Comment: Speci men Type: ARTERIAL BLOOD SPECIMENOrdering Facility: [facility] Address: [address] [place] [address] Performed By: #### A LLBG ####[facility] LABCLIA [id number] [place] [address] [place] Lactate [Moles/Vol] 1.4 mmol/L Normal 0.5-2.2 [facility] Comment on above: Order Comment: Speci men Type: ARTERIAL BLOOD SPECIMENOrdering Facility: [facility] Address: [address] [place] [address] Performed By: #### A LLBG ####[facility] LABCLIA [id number] [place] [address] [place] Methemoglobin (Bld) [Mass fraction] 1.6 % High 0.0-1.5 [facility] Comment on above: Order Comment: Speci men Type: ARTERIAL BLOOD SPECIMENOrdering Facility: [facility] Address: [address] [place] [address] Performed By: #### A LLBG ####[facility] LABCLIA [id number] [place] [address] [place] Oxygen (Bld) [Partial pressure] 168 mm Hg High 85-95 [facility] Comment on above: Order Comment: Speci men Type: ARTERIAL BLOOD SPECIMENOrdering Facility: [facility] Address: [address] [place] [address] Performed By: #### A LLBG ####[facility] LABCLIA [id number] [place] [address] [place] Oxygen adjusted to patient's actual temperature (Bld) [Partial pressure] 168 mmHg High 85-95 [facility] Comment on above: Order Comment: Speci men Type: ARTERIAL BLOOD SPECIMENOrdering Facility: [facility] Address: [address] [place] [address] Performed By: #### A LLBG ####[facility] LABCLIA [id number] [place] [address] [place] Oxyhemoglobin (BldA) [Mass fraction] 96 % Normal 95-98 [facility] Comment on above: Order Comment: Speci men Type: ARTERIAL BLOOD SPECIMENOrdering Facility: [facility] Address: [address] [place] [address] Performed By: #### A LLBG ####[facility] LABIA [id number] [place] [address] [place] pH (Bld) 7.33 [pH] Low 7.35-7.45 [facility] Comment on above: Order Comment: Speci men Type: ARTERIAL BLOOD SPECIMENOrdering Facility: [facility] Address: [address] [place] [address] Performed By: #### A LLBG ####[facility] LABIA [id number] [place] [address] [place] pH adjusted to patient's actual temperature (Bld) 7.33 Low 7.35-7.45 [facility] Comment on above: Order Comment: Speci men Type: ARTERIAL BLOOD SPECIMENOrdering Facility: [facility] Address: [address] [place] [address] Performed By: #### A LLBG ####[facility] LABIA [id number] [place] [address] [place] Potassium [Moles/Vol] 4.3 mmol/L Normal 3.5-5.0 [facility] Comment on above: Order Comment: Speci men Type: ARTERIAL BLOOD SPECIMENOrdering Facility: [facility] Address: [address] [place] [address] Performed By: #### A LLBG ####[facility] LABIA [id number] [place] [address] [place] Sodium [Moles/Vol] 135 mmol/L Low 136-144 [facility] Comment on above: Order Comment: Speci men Type: ARTERIAL BLOOD SPECIMENOrdering Facility: [facility] Address: [address] [place] [address] Performed By: #### A LLBG ####[facility] LABIA [id number] [place] [address] [place] Base deficit (BldA) [Moles/Vol] -2 mmol/L Normal -2-0 [facility] Comment on above: Order Comment: Speci men Type: ARTERIAL BLOOD SPECIMENOrdering Facility: [facility] Address: [address] [place] [address] Performed By: #### A LLBG ####[facility] LABIA [id number] [place] [address] [place] Calcium.ionized (Bld) [Mass/Vol] 1.28 mmol/L Normal 1.08-1.30 [facility] Comment on above: Order Comment: Speci men Type: ARTERIAL BLOOD SPECIMENOrdering Facility: [facility] Address: [address] [place] [address] Performed By: #### A LLBG ####[facility] LABIA [id number] [place] [address] [place] Calcium.ionized adjusted to pH 7.4 (BldA) [Moles/Vol] 1.30 mmol/L Normal 1.08-1.30 [facility] Comment on above: Order Comment: Speci men Type: ARTERIAL BLOOD SPECIMENOrdering Facility: [facility] Address: [address] [place] [address] Performed By: #### A LLBG ####[facility] LABIA [id number] [place] [address] [place] Carboxyhemoglobin (BldA) [Mass fraction] 2.2 % High 0.0-2.0 [facility] Comment on above: Order Comment: Speci men Type: ARTERIAL BLOOD SPECIMENOrdering Facility: [facility] Address: [address] [place] [address] Result Comment: Carb oxyhemoglobin Reference Range for Smokers: 2.0-8.0% Performed By: #### A LLBG ####[facility] LABCLIA [id number] [place] [address] [place] CO2 (Bld) [Partial pressure] 33 mm Hg Low 36-46 [facility] Comment on above: Order Comment: Speci men Type: ARTERIAL BLOOD SPECIMENOrdering Facility: [facility] Address: [address] [place] [address] Performed By: #### A LLBG ####[facility] LABCLIA [id number] [place] [address] [place] CO2 adjusted to patient's actual temperature (Bld) [Partial pressure] 33 mmHg Low 36-46 [facility] Comment on above: Order Comment: Speci men Type: ARTERIAL BLOOD SPECIMENOrdering Facility: [facility] Address: [address] [place] [address] Performed By: #### A LLBG ####[facility] LABCLIA [id number] [place] [address] [place] Glucose [Mass/Vol] 173 mg/dL High 60-105 [facility] Comment on above: Order Comment: Speci men Type: ARTERIAL BLOOD SPECIMENOrdering Facility: [facility] Address: [address] [place] [address] Performed By: #### A LLBG ####[facility] LABCLIA [id number] [place] [address] [place] HCO3 (Bld) [Moles/Vol] 21 mmol/L Low 22-26 [facility] Comment on above: Order Comment: Speci men Type: ARTERIAL BLOOD SPECIMENOrdering Facility: [facility] Address: [address] [place] [address] Performed By: #### A LLBG ####[facility] LABCLIA [id number] [place] [address] [place] Hematocrit (Bld) [Volume fraction] 41.6 % Normal 36.0-46.0 [facility] Comment on above: Order Comment: Speci men Type: ARTERIAL BLOOD SPECIMENOrdering Facility: [facility] Address: [address] [place] [address] Performed By: #### A LLBG ####[facility] LABIA [id number] [place] [address] [place] Hemoglobin (Bld) [Mass/Vol] 13.5 g/dL Normal 11.5-15.5 [facility] Comment on above: Order Comment: Speci men Type: ARTERIAL BLOOD SPECIMENOrdering Facility: [facility] Address: [address] [place] [address] Performed By: #### A LLBG ####[facility] LABIA [id number] [place] [address] [place] Lactate [Moles/Vol] 2.1 mmol/L Normal 0.5-2.2 [facility] Comment on above: Order Comment: Speci men Type: ARTERIAL BLOOD SPECIMENOrdering Facility: [facility] Address: [address] [place] [address] Performed By: #### A LLBG ####[facility] LABIA [id number] [place] [address] [place] Methemoglobin (Bld) [Mass fraction] 1.3 % Normal 0.0-1.5 [facility] Comment on above: Order Comment: Speci men Type: ARTERIAL BLOOD SPECIMENOrdering Facility: [facility] Address: [address] [place] [address] Performed By: #### A LLBG ####[facility] LABIA [id number] [place] [address] [place] Oxygen (Bld) [Partial pressure] 114 mm Hg High 85-95 [facility] Comment on above: Order Comment: Speci men Type: ARTERIAL BLOOD SPECIMENOrdering Facility: [facility] Address: [address] [place] [address] Performed By: #### A LLBG ####[facility] LABCLIA [id number] [address] [address] [place] Oxygen adjusted to patient's actual temperature (Bld) [Partial pressure] 114 mmHg High 85-95 [facility] Comment on above: Order Comment: Speci men Type: ARTERIAL BLOOD SPECIMENOrdering Facility: [facility] Address: [address] [place] [address] Performed By: #### A LLBG ####[facility] LABCLIA [id number] [place] [address] [place] Oxyhemoglobin (BldA) [Mass fraction] 95 % Normal 95-98 [facility] Comment on above: Order Comment: Speci men Type: ARTERIAL BLOOD SPECIMENOrdering Facility: [facility] Address: [address] [place] [address] Performed By: #### A LLBG ####[facility] LABCLIA [id number] [place] [address] [place] pH (Bld) 7.42 [pH] Normal 7.35-7.45 [facility] Comment on above: Order Comment: Speci men Type: ARTERIAL BLOOD SPECIMENOrdering Facility: [facility] Address: [address] [place] [address] Performed By: #### A LLBG ####[facility] LABCLIA [id number] [place] [address] [place] pH adjusted to patient's actual temperature (Bld) 7.42 Normal 7.35-7.45 [facility] Comment on above: Order Comment: Speci men Type: ARTERIAL BLOOD SPECIMENOrdering Facility: [facility] Address: [address] [place] [address] Performed By: #### A LLBG ####[facility] LABCLIA [id number] [place] [address] [place] Potassium [Moles/Vol] 4.1 mmol/L Normal 3.5-5.0 [facility] Comment on above: Order Comment: Speci men Type: ARTERIAL BLOOD SPECIMENOrdering Facility: [facility] Address: [address] [place] [address] Performed By: #### A LLBG ####[facility] LABCLIA [id number] [place] [address] [place] Sodium [Moles/Vol] 133 mmol/L Low 136-144 [facility] Comment on above: Order Comment: Speci men Type: ARTERIAL BLOOD SPECIMENOrdering Facility: [facility] Address: [address] [place] [address] Performed By: #### A LLBG ####[facility] LABCLIA [id number] [place] [address] [place] ARTERIAL BLOOD GASES WITH IO NIZED MAGNESIUMon 07-29-2023 Base excess Calc (Bld) [Moles/Vol] 0 mmol/L Normal 0-2 [facility] Comment on above: Order Comment: Speci men Type: ARTERIAL BLOOD SPECIMENOrdering Facility: [facility] Address: [address] [place] [address] Performed By: #### A LLMG ####[facility] LABCLIA [id number] [place] [address] [place] Calcium.ionized (Bld) [Mass/Vol] 1.28 mmol/L Normal 1.08-1.30 [facility] Comment on above: Order Comment: Speci men Type: ARTERIAL BLOOD SPECIMENOrdering Facility: [facility] Address: [address] [place] [address] Performed By: #### A LLMG ####[facility] LABCLIA [id number] [place] [address] [place] Calcium.ionized adjusted to pH 7.4 (BldA) [Moles/Vol] 1.27 mmol/L Normal 1.08-1.30 [facility] Comment on above: Order Comment: Speci men Type: ARTERIAL BLOOD SPECIMENOrdering Facility: [facility] Address: [address] [place] [address] Performed By: #### A LLMG ####[facility] LABCLIA [id number] [place] [address] [place] Carboxyhemoglobin (BldA) [Mass fraction] 1.2 % Normal 0.0-2.0 [facility] Comment on above: Order Comment: Speci men Type: ARTERIAL BLOOD SPECIMENOrdering Facility: [facility] Address: [address] [place] [address] Result Comment: Carb oxyhemoglobin Reference Range for Smokers: 2.0-8.0% Performed By: #### A LLMG ####[facility] LABCLIA [id number] [place] [address] [place] CO2 (Bld) [Partial pressure] 42 mm Hg Normal 36-46 [facility] Comment on above: Order Comment: Speci men Type: ARTERIAL BLOOD SPECIMENOrdering Facility: [facility] Address: [address] [place] [address] Performed By: #### A LLMG ####[facility] LABCLIA [id number] [place] [address] [place] CO2 adjusted to patient's actual temperature (Bld) [Partial pressure] 42 mmHg Normal 36-46 [facility] Comment on above: Order Comment: Speci men Type: ARTERIAL BLOOD SPECIMENOrdering Facility: [facility] Address: [address] [place] [address] Performed By: #### A LLMG ####[facility] LABCLIA [id number] [place] [address] [place] Glucose [Mass/Vol] 119 mg/dL High 60-105 [facility] Comment on above: Order Comment: Speci men Type: ARTERIAL BLOOD SPECIMENOrdering Facility: [facility] Address: [address] [place] [address] Performed By: #### A LLMG ####[facility] LABCLIA [id number] [place] [address] [place] HCO3 (Bld) [Moles/Vol] 25 mmol/L Normal 22-26 [facility] Comment on above: Order Comment: Speci men Type: ARTERIAL BLOOD SPECIMENOrdering Facility: [facility] Address: [address] [place] [address] Performed By: #### A LLMG ####[facility] LABCLIA [id number] [place] [address] [place] Hematocrit (Bld) [Volume fraction] 35.4 % Low 36.0-46.0 [facility] Comment on above: Order Comment: Speci men Type: ARTERIAL BLOOD SPECIMENOrdering Facility: [facility] Address: [address] [place] [address] Performed By: #### A LLMG ####[facility] LABCLIA [id number] [place] [address] [place] Hemoglobin (Bld) [Mass/Vol] 11.5 g/dL Normal 11.5-15.5 [facility] Comment on above: Order Comment: Speci men Type: ARTERIAL BLOOD SPECIMENOrdering Facility: [facility] Address: [address] [place] [address] Performed By: #### A LLMG ####[facility] LABCLIA [id number] [place] [address] [place] Lactate [Moles/Vol] 2.4 mmol/L High 0.5-2.2 [facility] Comment on above: Order Comment: Speci men Type: ARTERIAL BLOOD SPECIMENOrdering Facility: [facility] Address: [address] [place] [address] Performed By: #### A LLMG ####[facility] LABCLIA [id number] [place] [address] [place] Magnesium [Moles/Vol] 0.51 mmol/L Normal 0.45-0.60 [facility] Comment on above: Order Comment: Speci men Type: ARTERIAL BLOOD SPECIMENOrdering Facility: [facility] Address: [address] [place] [address] Performed By: #### A LLMG ####[facility] LABCLIA [id number] [place] [address] [place] Methemoglobin (Bld) [Mass fraction] 1.0 % Normal 0.0-1.5 [facility] Comment on above: Order Comment: Speci men Type: ARTERIAL BLOOD SPECIMENOrdering Facility: [facility] Address: [address] [place] [address] Performed By: #### A LLMG ####[facility] LABIA [id number] [place] [address] [place] Oxygen (Bld) [Partial pressure] 150 mm Hg High 85-95 [facility] Comment on above: Order Comment: Speci men Type: ARTERIAL BLOOD SPECIMENOrdering Facility: [facility] Address: [address] [place] [address] Performed By: #### A LLMG ####[facility] LABIA [id number] [place] [address] [place] Oxygen adjusted to patient's actual temperature (Bld) [Partial pressure] 150 mmHg High 85-95 [facility] Comment on above: Order Comment: Speci men Type: ARTERIAL BLOOD SPECIMENOrdering Facility: [facility] Address: [address] [place] [address] Performed By: #### A LLMG ####[facility] LABIA [id number] [place] [address] [place] Oxyhemoglobin (BldA) [Mass fraction] 97 % Normal 95-98 [facility] Comment on above: Order Comment: Speci men Type: ARTERIAL BLOOD SPECIMENOrdering Facility: [facility] Address: [address] [place] [address] Performed By: #### A LLMG ####[facility] LABCLIA [id number] [place] [address] [place] pH (Bld) 7.39 [pH] Normal 7.35-7.45 [facility] Comment on above: Order Comment: Speci men Type: ARTERIAL BLOOD SPECIMENOrdering Facility: [facility] Address: [address] [place] [address] Performed By: #### A LLMG ####[facility] LABCLIA [id number] [place] [address] [place] pH adjusted to patient's actual temperature (Bld) 7.39 Normal 7.35-7.45 [facility] Comment on above: Order Comment: Speci men Type: ARTERIAL BLOOD SPECIMENOrdering Facility: [facility] Address: [address] [place] [address] Performed By: #### A LLMG ####[facility] LABCLIA [id number] [place] [address] [place] Potassium [Moles/Vol] 3.9 mmol/L Normal 3.5-5.0 [facility] Comment on above: Order Comment: Speci men Type: ARTERIAL BLOOD SPECIMENOrdering Facility: [facility] Address: [address] [place] [address] Performed By: #### A LLMG ####[facility] LABIA [id number] [place] [address] [place] Sodium [Moles/Vol] 134 mmol/L Low 136-144 [facility] Comment on above: Order Comment: Speci men Type: ARTERIAL BLOOD SPECIMENOrdering Facility: [facility] Address: [address] [place] [address] Performed By: #### A LLMG ####[facility] LABIA [id number] [place] [address] [place] CBC panel Auto (Bld)on 07-29 Erythrocyte distribution width (RBC) [Ratio] 11.9 % Normal 11.5-15.0 [facility] Comment on above: Order Comment: Speci men Type: BLOOD SPECIMENOrdering Facility: [facility] Address: [address] [place] [address] Performed By: #### 5 8410-2 ####[facility] LABIA [id number] [place] [address] [place] Hematocrit (Bld) [Volume fraction] 35.0 % Low 36.0-46.0 [facility] Comment on above: Order Comment: Speci men Type: BLOOD SPECIMENOrdering Facility: [facility] Address: [address] [place] [address] Performed By: #### 5 8410-2 ####[facility] LABIA [id number] [place] [address] [place] Hemoglobin (Bld) [Mass/Vol] 11.9 g/dL Normal 11.5-15.5 [facility] Comment on above: Order Comment: Speci men Type: BLOOD SPECIMENOrdering Facility: [facility] Address: [address] [place] [address] Performed By: #### 5 8410-2 ####[facility] LABIA [id number] [place] [address] [place] MCH (RBC) [Entitic mass] 31.3 pg Normal 26.0-34.0 [facility] Comment on above: Order Comment: Speci men Type: BLOOD SPECIMENOrdering Facility: [facility] Address: [address] [place] [address] Performed By: #### 5 8410-2 ####[facility] LABIA [id number] [place] [address] [place] MCHC (RBC) [Mass/Vol] 34.0 g/dL Normal 30.5-36.0 [facility] Comment on above: Order Comment: Speci men Type: BLOOD SPECIMENOrdering Facility: [facility] Address: [address] [place] [address] Performed By: #### 5 8410-2 ####[facility] LABCLIA [id number] [place] [address] [place] MCV (RBC) [Entitic vol] 92.1 fL Normal 80.0-100.0 [facility] Comment on above: Order Comment: Speci men Type: BLOOD SPECIMENOrdering Facility: [facility] Address: [address] [place] [address] Performed By: #### 5 8410-2 ####[facility] LABCLIA [id number] [place] [address] [place] Nucleated RBC (Bld) [#/Vol] 10*3/uL Normal <0.01 [facility] Comment on above: Order Comment: Speci men Type: BLOOD SPECIMENOrdering Facility: [facility] Address: [address] [place] [address] Performed By: #### 5 8410-2 ####[facility] LABCLIA [id number] [place] [address] [place] Platelet mean volume (Bld) [Entitic vol] 9.8 fL Normal 9.0-12.7 [facility] Comment on above: Order Comment: Speci men Type: BLOOD SPECIMENOrdering Facility: [facility] Address: [address] [place] [address] Performed By: #### 5 8410-2 ####[facility] LABCLIA [id number] [place] [address] [place] Platelets (Bld) [#/Vol] 170 10*3/uL Normal 150-400 [facility] Comment on above: Order Comment: Speci men Type: BLOOD SPECIMENOrdering Facility: [facility] Address: [address] [place] [address] Performed By: #### 5 8410-2 ####[facility] LABCLIA [id number] [place] [address] [place] RBC (Bld) [#/Vol] 3.80 10*6/uL Low 3.90-5.20 [facility] Comment on above: Order Comment: Speci men Type: BLOOD SPECIMENOrdering Facility: [facility] Address: [address] [place] [address] Performed By: #### 5 8410-2 ####[facility] LABCLIA [id number] [place] [address] [place] WBC (Bld) [#/Vol] 11.18 10*3/uL High 3.70-11.00 [facility] Comment on above: Order Comment: Speci men Type: BLOOD SPECIMENOrdering Facility: [facility] Address: [address] [place] [address] Performed By: #### 5 8410-2 ####[facility] LABCLIA [id number] [place] [address] [place] Fibrinogen PPP-mCncon 2023 Fibrinogen Coag (PPP) [Mass/Vol] 348 mg/dL Normal 200-400 [facility] Comment on above: Order Comment: Speci men Type: BLOOD SPECIMENOrdering Facility: [facility] Address: [address] [place] [address] Performed By: #### 3 255-7, 07598-7, 91936-8 ####[facility] LABCLIA [id number] [place] [address] [place] Fibrinogen Coag (PPP) [Mass/Vol] 165 mg/dL Low 200-400 [facility] Comment on above: Order Comment: Speci men Type: BLOOD SPECIMENOrdering Facility: [facility] Address: [address] [place] [address] Performed By: #### 3 255-7 ####[facility] LABCLIA [id number] [place] [address] [place] Gas + CO Pnl BldVon 07-29-19 24 Lactate [Moles/Vol] 1.4 mmol/L Normal 0.5-2.2 [facility] Comment on above: Order Comment: Speci men Type: VENOUS BLOOD SPECIMENOrdering Facility: [facility] Address: [address] [place] [address] Performed By: #### 2 4344-4 ####[facility] LABIA [id number] [place] [address] [place] Order Comment: Speci men Type: ARTERIAL BLOOD SPECIMENOrdering Facility: [facility] Address: [address] [place] [address] Performed By: #### A LLBG ####[facility] LABIA [id number] [place] [address] [place] Gas and Carbon monoxide pane l (BldV)on 07-29-2023 BASE DEFICIT, VENOUS -3 mmol/L Low -2-0 [facility] Comment on above: Order Comment: Speci men Type: VENOUS BLOOD SPECIMENOrdering Facility: [facility] Address: [address] [place] [address] Performed By: #### 2 4344-4 ####[facility] LABIA [id number] [place] [address] [place] Calcium.ionized (Bld) [Mass/Vol] 1.19 mmol/L Normal 1.08-1.30 [facility] Comment on above: Order Comment: Speci men Type: VENOUS BLOOD SPECIMENOrdering Facility: [facility] Address: [address] [place] [address] Performed By: #### 2 4344-4 ####[facility] LABIA [id number] [place] [address] [place] Calcium.ionized adjusted to pH 7.4 (BldA) [Moles/Vol] 1.15 mmol/L Normal 1.08-1.30 [facility] Comment on above: Order Comment: Speci men Type: VENOUS BLOOD SPECIMENOrdering Facility: [facility] Address: [address] [place] [address] Performed By: #### 2 4344-4 ####[facility] LABIA [id number] [place] [address] [place] Carboxyhemoglobin (BldV) [Mass fraction] 1.7 % Normal 0.0-2.0 [facility] Comment on above: Order Comment: Speci men Type: VENOUS BLOOD SPECIMENOrdering Facility: [facility] Address: [address] [place] [address] Result Comment: Carb oxyhemoglobin Reference Range for Smokers: 2.0-8.0% Performed By: #### 2 4344-4 ####[facility] LABIA [id number] [place] [address] [place] CO2 (BldV) [Partial pressure] 45 mm[Hg] Normal 42-55 [facility] Comment on above: Order Comment: Speci men Type: VENOUS BLOOD SPECIMENOrdering Facility: [facility] Address: [address] [place] [address] Performed By: #### 2 4344-4 ####[facility] LABIA [id number] [place] [address] [place] CO2 adjusted to patient's actual temperature (BldV) [Partial pressure] 45 mmHg Normal 42-55 [facility] Comment on above: Order Comment: Speci men Type: VENOUS BLOOD SPECIMENOrdering Facility: [facility] Address: [address] [place] [address] Performed By: #### 2 4344-4 ####[facility] LABIA [id number] [place] [address] [place] Glucose [Mass/Vol] 241 mg/dL High 60-105 [facility] Comment on above: Order Comment: Speci men Type: VENOUS BLOOD SPECIMENOrdering Facility: [facility] Address: [address] [place] [address] Performed By: #### 2 4344-4 ####[facility] LABCLIA [id number] [place] [address] [place] HCO3 (Bld) [Moles/Vol] 23 mmol/L Low 24-28 [facility] Comment on above: Order Comment: Speci men Type: VENOUS BLOOD SPECIMENOrdering Facility: [facility] Address: [address] [place] [address] Performed By: #### 2 4344-4 ####[facility] LABCLIA [id number] [place] [address] [place] Hematocrit (Bld) [Volume fraction] 33.3 % Low 36.0-46.0 [facility] Comment on above: Order Comment: Speci men Type: VENOUS BLOOD SPECIMENOrdering Facility: [facility] Address: [address] [place] [address] Performed By: #### 2 4344-4 ####[facility] LABCLIA [id number] [place] [address] [place] Hemoglobin (Bld) [Mass/Vol] 10.8 g/dL Low 11.5-15.5 [facility] Comment on above: Order Comment: Speci men Type: VENOUS BLOOD SPECIMENOrdering Facility: [facility] Address: [address] [place] [address] Performed By: #### 2 4344-4 ####[facility] LABCLIA [id number] [place] [address] [place] Methemoglobin (Bld) [Mass fraction] 1.2 % Normal 0.0-1.5 [facility] Comment on above: Order Comment: Speci men Type: VENOUS BLOOD SPECIMENOrdering Facility: [facility] Address: [address] [place] [address] Performed By: #### 2 4344-4 ####[facility] LABCLIA [id number] [address] [address] [place] Oxygen (BldV) [Partial pressure] 51 mm[Hg] High 35-45 [facility] Comment on above: Order Comment: Speci men Type: VENOUS BLOOD SPECIMENOrdering Facility: [facility] Address: [address] [place] [address] Performed By: #### 2 4344-4 ####[facility] LABCLIA [id number] [address] [address] [place] Oxygen adjusted to patient's actual temperature (BldV) [Partial pressure] 51 mmHg High 35-45 [facility] Comment on above: Order Comment: Speci men Type: VENOUS BLOOD SPECIMENOrdering Facility: [facility] Address: [address] [place] [address] Performed By: #### 2 4344-4 ####[facility] LABCLIA [id number] [address] [address] [place] Oxygen saturation in Venous blood 83 % Normal 60-85 [facility] Comment on above: Order Comment: Speci men Type: VENOUS BLOOD SPECIMENOrdering Facility: [facility] Address: [address] [place] [address] Performed By: #### 2 4344-4 ####[facility] LABCLIA [id number] [address] [address] [place] Oxyhemoglobin (BldV) [Mass fraction] 80 % Normal 60-85 [facility] Comment on above: Order Comment: Speci men Type: VENOUS BLOOD SPECIMENOrdering Facility: [facility] Address: [address] [place] [address] Performed By: #### 2 4344-4 ####[facility] LABCLIA [id number] [place] [address] [place] pH (BldV) 7.33 [pH] Normal 7.32-7.42 [facility] Comment on above: Order Comment: Speci men Type: VENOUS BLOOD SPECIMENOrdering Facility: [facility] Address: [address] [place] [address] Performed By: #### 2 4344-4 ####[facility] LABCLIA [id number] [place] [address] [place] pH adjusted to patient's actual temperature (BldV) 7.33 Normal 7.32-7.42 [facility] Comment on above: Order Comment: Speci men Type: VENOUS BLOOD SPECIMENOrdering Facility: [facility] Address: [address] [place] [address] Performed By: #### 2 4344-4 ####[facility] LABCLIA [id number] [place] [address] [place] Potassium [Moles/Vol] 5.7 mmol/L High 3.5-5.0 [facility] Comment on above: Order Comment: Speci men Type: VENOUS BLOOD SPECIMENOrdering Facility: [facility] Address: [address] [place] [address] Performed By: #### 2 4344-4 ####[facility] LABIA [id number] [place] [address] [place] Sodium [Moles/Vol] 130 mmol/L Low 136-144 [facility] Comment on above: Order Comment: Speci men Type: VENOUS BLOOD SPECIMENOrdering Facility: [facility] Address: [address] [place] [address] Performed By: #### 2 4344-4 ####[facility] LABCLIA [id number] [place] [address] [place] Glucose [facility] Glucose [Mass/Vol] 131 mg/dL High 74-99 [facility] Comment on above: Order Comment: Phyllis stein Type: BLOOD SPECIMENOrdering Facility: [facility] Address: [address] [place] [address] Result Comment: The [place] [employer] (ADA) provides guidance for cutoff [...] Standards of Medical Care in Diabetes 2016, [place] [employer]. Diabetes Care. 2016.39(Suppl 1). Performed By: #### 2 345-7, K1 ####[facility] LABCLIA [id number] [place] [address] [place] HCV RNA WALKER+probe Qnon 07-29 HBV surface Ag Ql (S) Negative Normal Negative [facility] Comment on above: Order Comment: Phyllis stein Type: BLOOD SPECIMENOrdering Facility: [facility] Address: [place] [address] Performed By: #### 1 1011-4 ####[facility] LABCLIA [id number] [place] [address] [place] HCV Ab Ql (S) Negative Normal Negative [facility] Comment on above: Order Comment: Phyllis stein Type: BLOOD SPECIMENOrdering Facility: [facility] Address: [place] [address] Result Comment: The result suggests no evidence of active infection with Hepatitis C virus. Should recent infection be suspected, repeat testing may be considered 4-6 weeks after this draw. Performed By: #### 1 1011-4 ####[facility] LABCLIA [id number] [place] [address] [place] HIV 1 and 2 Ab IA.rapid Nom (S/P/Bld) Normal [facility] Comment on above: Order Comment: Speci men Type: BLOOD SPECIMENOrdering Facility: [facility] Address: [place] [address] Result Comment: Test not indicated. Performed By: #### 1 1011-4 ####[facility] LABCLIA [id number] [address] OF [facility] HIV 1+2 Ab+HIV1 p24 Ag IA Ql Non-Reactive Normal Nonreactive [facility] Comment on above: Order Comment: Speci men Type: BLOOD SPECIMENOrdering Facility: [facility] Occupational [facility] Exposure Address: [place] [address] Performed By: #### 1 1011-4 ####[facility] [id number] [address] OF [facility] HIV immunoassay testing algorithm interpretation (S/P/Bld) [Interp] Normal [facility] Comment on above: Order Comment: Speci men Type: BLOOD SPECIMENOrdering Facility: [facility] Occupational [facility] Exposure Address: [place] [address] Result Comment: No e vidence of HIV-1 or HIV-2 infection. Should recent infection be suspected, repeat testing may be considered 2-3 weeks after this draw.[place] Rev. Code 3701.243(E): This information has been [...] or diagnoses. Performed By: #### 1 1011-4 ####[facility] LABIA [id number] [place] [address] [place] HISTORY PHYSICALon 4 HISTORY PHYSICAL Normal [facility] HIV1+2 Ab Ser Qlon 4 HIV 1+2 Ab Ql (S) Negative Normal Non-Reacti ve : Negative for both HIV1 and HIV2 antibodies. [facility] Comment on above: Order Comment: Speci men Type: BLOOD SPECIMENOrdering Facility: [facility] Address: [address] [place] [address] Result Comment: A no n-reactive result does not preclude the possibility of exposure to HIV or infection with HIV. An antibody response to recent exposure may take several weeks to reach detectable levels with this assay.Performed by the [employer] ADVANCE Rapid HIV-1/2 Antibody Test.HIV Information: [place] Rev. Code 3701.243(E):This information has been disclosed [...] or diagnoses. Performed By: #### 7 918-6 ####[facility] LABIA [id number] [place] [address] [place] INTRAOPERATIVE ECHO PREon INTRAOPERATIVE ECHO PRE Normal [facility] OPERATIVE NOon 07-29-2023 OPERATIVE NO Normal [facility] POTASSIUM BLDon 07-29-2023 Potassium [Moles/Vol] 4.6 mmol/L Normal 3.7-5.1 [facility] Comment on above: Order Comment: Speci men Type: BLOOD SPECIMENOrdering Facility: [facility] Address: [address] [place] [address] Performed By: #### 2 345-7, K1 ####[facility] LABIA [id number] [place] [address] [place] PT panel Coag (PPP)on 2023 INR Coag (PPP) [Relative time] 1.1 {INR} Normal 0.9-1.3 [facility] Comment on above: Order Comment: Speci men Type: BLOOD SPECIMENOrdering Facility: [facility] Address: [address] [place] [address] Result Comment: Suzanne min K Antagonist (VKA) Therapeutic Range: INR 2 to 3 (Target INR of 2.5)Note: For patients treated with VKA drugs, such as warfarin, the [employer] [employer] 2012 Guideline recommends [...] al. Chest 2012, 141:7S-47SNishausten RA, et al. [facility] 2017, 70: 252-289 Performed By: #### 3 255-7, 32428-2, 04209-7 ####[facility] LABCLIA [id number] [place] [address] [place] PT Coag (PPP) [Time] 11.5 s Normal 9.7-13.0 [facility] Comment on above: Order Comment: Speci men Type: BLOOD SPECIMENOrdering Facility: [facility] Address: [address] [place] [address] Performed By: #### 3 255-7, 00501-7, 67718-5 ####[facility] LABCLIA [id number] [place] [id number] [place] Platelets Auto (Bld) [#/Vol] on 07-29-2023 Platelets (Bld) [#/Vol] 194 10*3/uL Normal 150-400 [facility] Comment on above: Order Comment: Speci men Type: BLOOD SPECIMENOrdering Facility: [facility] Address: [address] [place] [address] Performed By: #### 7 77-3 ####[facility] LABCLIA [id number] [address] OF [place] STAPH AUREUS PCRon 4 S. aureus and MRSA panel WALKER+probe (Nose) Normal Negative [facility] Comment on above: Order Comment: Speci men Type: SWAB OF INTERNAL NOSEOrdering Facility: [facility] Address: [address] [place] [address] Result Comment: Nega tive for Staphylococcus aureus by PCR.Negative for MRSA by PCR Performed By: #### S APCR ####[facility] LABCLIA [id number] [address] OF [place] SURGICAL PATHOLOGYon 024 CASE REPORT Normal [facility] Comment on above: Order Comment: Speci men Type: TISSUE SPECIMENOrdering Facility: [facility] Address: [address] [place] [address] Result Comment: Surg ical Pathology Report Case: [id number] Provider: Willem Suarez MD Collected: 07/29/2023 10:16 AMOrdering Location: Admitting Received: 07/29/2023 02:15 PMPathologist: Sarita lBack MDSpecimen: SOFT TISSUE, endarterectomy Performed By: #### S ####[facility] LABCLIA [id number] [address] STATES [facility] CLINICAL HISTORY Normal [facility] Comment on above: Order Comment: Speci men Type: TISSUE SPECIMENOrdering Facility: [facility] [facility] Address: [address] [place] [address] Result Comment: Pre- op diagnosis: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 There is no evidence of tunica media. Normal [facility] Comment on above: Order Comment: Speci men Type: TISSUE SPECIMENOrdering Facility: [facility] Address: [address] [place] [address] Performed By: #### S ####[facility] LABCLIA [id number] [address] [place] FINAL DIAGNOSIS Normal [facility] Comment on above: Order Comment: Speci men Type: TISSUE SPECIMENOrdering Facility: [facility] Address: [address] [place] [address] Result Comment: A. C oronary artery (site not stated), endarterectomy:-Fibroatheromatous plaque. Performed By: #### S ####[facility] LABCLIA [id number] [place] [address] [place] FINAL PERFORMING LAB Normal [facility] Comment on above: Order Comment: Speci men Type: TISSUE SPECIMENOrdering Facility: [facility] Address: [address] [place] [address] Result Comment: Diag nostic interpretation performed at [facility], [address] [place] [address] CLIA# [id number] Director: Jonathan Pavon M.D. Performed By: #### S ####[facility] LABCLIA [id number] [address] [place] GROSS DESCRIPTION A. SOFT TISSUE Normal [facility] Comment on above: Order Comment: Speci men Type: TISSUE SPECIMENOrdering Facility: [facility] Address: [address] [place] [address] Result Comment: Rece ived fresh labeled endarterectomy is a kate-pham, irregular segment of soft probable plaque material. The specimen is entirely submitted intact in one cassette.Gross examination performed at [facility], [address] [place] [address] CLIA# [id number] 07/29/23 Performed By: #### S ####[facility] LABIA [id number] [place] [address] [place] THROMBOGRAPH HEPARINASE PANE Cuauhtemoc 07-29-2023 Clot angle after addition of heparinase TEG (Bld) [Angle] 65.5 degrees Normal 47.0-74.0 [facility] Comment on above: Order Comment: Speci men Type: BLOOD SPECIMENOrdering Facility: [facility] Address: [address] [place] [address] Performed By: #### T EGHPP ####[facility] [id number] [address] [place] Clot Lysis 30 Min post maximum clot amplitude TEG (Bld) [Length fraction] 0.0 % Normal 0.0-8.0 [facility] Comment on above: Order Comment: Speci men Type: BLOOD SPECIMENOrdering Facility: [facility] Address: [address] [place] [address] Performed By: #### T EGHPP ####[facility] [id number] [place] [address] [place] Clotting time after addition of heparinase TEG (Bld) 10.8 minutes High 4.0-10.0 [facility] Comment on above: Order Comment: Speci men Type: BLOOD SPECIMENOrdering Facility: [facility] Address: [address] [place] [address] Performed By: #### T EGHPP ####[facility] [id number] [place] [id number] [place] Coagulation index TEG Qn (Bld) -2.9 Normal -4.6-3.2 [facility] Comment on above: Order Comment: Speci men Type: BLOOD SPECIMENOrdering Facility: [facility] Address: [address] [place] [address] Result Comment: The Coagulation Index, a secondary parameter, is labeled by the gill net stringer as for research use only and is used per the gill net stringer's instructions. Its performance characteristics were determined by [facility]'s [facility] [place] in a manner consistent with CLIA requirements. This test has not been cleared by the U.S. Food and Drug Administration. Performed By: #### T EGHPP ####[facility] LABCLIA [id number] [facility] [place] [address] [place] Maximum clot firmness after addition of heparinase TEG (Bld) [Length] 61.9 mm Normal 51.0-75.0 [facility] Comment on above: Order Comment: Specmarko stein Type: BLOOD SPECIMENOrdering Facility: [facility] Address: [address] [place] [address] Performed By: #### T EGHPP ####[facility] LABCLIA [id number] [facility] [address] [place] Thromboelastography after addtion of heparinase panel (Bld) Normal [facility] Comment on above: Order Comment: Phyllis stein Type: BLOOD SPECIMENOrdering Facility: [facility] Address: [address] [place] [address] Result Comment: A th romboelastograph (TEG) study [...] TEG results. Performed By: #### T EGHPP ####[facility] LABCLIA [id number] [facility] [address] [place] THROMBOGRAPH PANELon 024 Clot angle TEG (Bld) [Angle] 61.3 degrees Normal 47.0-74.0 [facility] Comment on above: Order Comment: Speci men Type: BLOOD SPECIMENOrdering Facility: [facility] Address: [address] [place] [address] Performed By: #### T EGPNP ####[facility] LABIA [id number] [address] [place] Clot Lysis 30 Min post maximum clot amplitude TEG (Bld) [Length fraction] 0.0 % Normal 0.0-8.0 [facility] Comment on above: Order Comment: Speci men Type: BLOOD SPECIMENOrdering Facility: [facility] Address: [address] [place] [address] Performed By: #### T EGPNP ####[facility] [id number] [place] [address] [place] Clotting time TEG (Bld) 6.8 minutes Normal 4.0-10.0 [facility] Comment on above: Order Comment: Speci men Type: BLOOD SPECIMENOrdering Facility: [facility] Address: [address] [place] [address] Performed By: #### T EGPNP ####[facility] [id number] [place] [address] [place] Coagulation index TEG Qn (Bld) -0.8 Normal -4.6-3.2 [facility] Comment on above: Order Comment: Speci men Type: BLOOD SPECIMENOrdering Facility: [facility] Address: [address] [place] [address] Result Comment: The Coagulation Index, a secondary parameter, is labeled by the gill net stringer as for research use only and is used per the gill net stringer's instructions. Its performance characteristics were determined by [facility]'s [facility] Pathology and Laboratory Medicine [place] in a manner consistent with CLIA requirements. This test has not been cleared by the U.S. Food and Drug Administration. Performed By: #### T EGPNP ####[facility] LABIA [id number] [place] [address] [place] Maximum clot firmness TEG (Bld) [Length] 62.4 mm Normal 51.0-75.0 [facility] Comment on above: Order Comment: Phyllis stein Type: BLOOD SPECIMENOrdering Facility: [facility] Address: [address] [place] [address] Performed By: #### T EGPNP ####[facility] [id number] [address] [place] Thromboelastography after addtion of heparinase panel (Bld) Normal [facility] Comment on above: Order Comment: Phyllis stein Type: BLOOD SPECIMENOrdering Facility: [facility] Address: [address] [place] [address] Result Comment: A th romboelastograph (TEG) study [...] TEG results. Performed By: #### T EGPNP ####[facility] LABIA [id number] [place] [address] [place] XR CHEST 1V FRONTAL PORTon 0 07-29-2023 XR CHEST 1V FRONTAL PORT Normal [facility] aPTT PPPon 07-29-2023 aPTT Coag (PPP) [Time] 28.1 s Normal 23.0-32.4 [facility] Comment on above: Order Comment: Speci men Type: BLOOD SPECIMENOrdering Facility: [facility] Address: [address] [place] [address] Performed By: #### 3 255-7, 43639-0, 03387-1 ####[facility] LABCLIA [id number] [place] [address] [place] CNPNon 07-24-2023 CNPN Normal [facility] CNPTOUTREACHon 07-24-2023 CNPTOUTREACH Normal [facility] CBC W Auto Differential pane l (Bld)on 07-17-2023 Basophils (Bld) [#/Vol] 0.03 10*3/uL Normal <0.11 [facility] Comment on above: Order Comment: Speci men Type: BLOOD SPECIMENOrdering Facility: [facility] Address: [address] [place] [address] Performed By: #### 5 7021-8 ####[facility] LABCLIA [id number] [place] [address] [place] Basophils/100 WBC (Bld) 0.5 % Normal [facility] Comment on above: Order Comment: Speci men Type: BLOOD SPECIMENOrdering Facility: [facility] Address: [address] [place] [address] Performed By: #### 5 7021-8 ####[facility] LABCLIA [id number] [place] [address] [place] Differential cell count method Nom (Bld) Auto Normal [facility] Comment on above: Order Comment: Speci men Type: BLOOD SPECIMENOrdering Facility: [facility] Address: [address] [place] [address] Performed By: #### 5 7021-8 ####[facility] LABCLIA [id number] [place] [address] [place] Eosinophils (Bld) [#/Vol] 0.15 10*3/uL Normal <0.46 [facility] Comment on above: Order Comment: Speci men Type: BLOOD SPECIMENOrdering Facility: [facility] Address: [address] [place] [address] Performed By: #### 5 7021-8 ####[facility] LABCLIA [id number] [place] [address] [place] Eosinophils/100 WBC (Bld) 2.5 % Normal [facility] Comment on above: Order Comment: Speci men Type: BLOOD SPECIMENOrdering Facility: [facility] Address: [address] [place] [address] Performed By: #### 5 7021-8 ####[facility] LABCLIA [id number] [place] [address] [place] Erythrocyte distribution width (RBC) [Ratio] 12.2 % Normal 11.5-15.0 [facility] Comment on above: Order Comment: Speci men Type: BLOOD SPECIMENOrdering Facility: [facility] Address: [address] [place] [address] Performed By: #### 5 7021-8 ####[facility] LABCLIA [id number] [place] [address] [place] Hematocrit (Bld) [Volume fraction] 46.2 % High 36.0-46.0 [facility] Comment on above: Order Comment: Speci men Type: BLOOD SPECIMENOrdering Facility: [facility] Address: [address] [place] [address] Performed By: #### 5 7021-8 ####[facility] LABCLIA [id number] [place] [address] [place] Hemoglobin (Bld) [Mass/Vol] 14.9 g/dL Normal 11.5-15.5 [facility] Comment on above: Order Comment: Speci men Type: BLOOD SPECIMENOrdering Facility: [facility] Address: [address] [place] [address] Performed By: #### 5 7021-8 ####[facility] LABCLIA [id number] [place] [address] [place] Immature granulocytes (Bld) [#/Vol] 0.05 10*3/uL Normal <0.10 [facility] Comment on above: Order Comment: Speci men Type: BLOOD SPECIMENOrdering Facility: [facility] Address: [address] [place] [address] Performed By: #### 5 7021-8 ####[facility] LABCLIA [id number] [place] [address] [place] Immature granulocytes/100 WBC (Bld) 0.8 % Normal [facility] Comment on above: Order Comment: Speci men Type: BLOOD SPECIMENOrdering Facility: [facility] Address: [address] [place] [address] Performed By: #### 5 7021-8 ####[facility] LABCLIA [id number] [place] [address] [place] Lymphocytes (Bld) [#/Vol] 2.33 10*3/uL Normal 1.00-4.00 [facility] Comment on above: Order Comment: Speci men Type: BLOOD SPECIMENOrdering Facility: [facility] Address: [address] [place] [address] Performed By: #### 5 7021-8 ####[facility] LABCLIA [id number] [place] [address] [place] Lymphocytes/100 WBC (Bld) 39.0 % Normal [facility] Comment on above: Order Comment: Speci men Type: BLOOD SPECIMENOrdering Facility: [facility] Address: [address] [place] [address] Performed By: #### 5 7021-8 ####[facility] LABCLIA [id number] [place] [address] [place] MCH (RBC) [Entitic mass] 31.2 pg Normal 26.0-34.0 [facility] Comment on above: Order Comment: Speci men Type: BLOOD SPECIMENOrdering Facility: [facility] Address: [address] [place] [address] Performed By: #### 5 7021-8 ####[facility] LABCLIA [id number] [place] [address] [place] MCHC (RBC) [Mass/Vol] 32.3 g/dL Normal 30.5-36.0 [facility] Comment on above: Order Comment: Speci men Type: BLOOD SPECIMENOrdering Facility: [facility] Address: [address] [place] [address] Performed By: #### 5 7021-8 ####[facility] LABIA [id number] [place] [address] [place] MCV (RBC) [Entitic vol] 96.7 fL Normal 80.0-100.0 [facility] Comment on above: Order Comment: Speci men Type: BLOOD SPECIMENOrdering Facility: [facility] Address: [address] [place] [address] Performed By: #### 5 7021-8 ####[facility] LABIA [id number] [place] [address] [place] Monocytes (Bld) [#/Vol] 0.60 10*3/uL Normal <0.87 [facility] Comment on above: Order Comment: Speci men Type: BLOOD SPECIMENOrdering Facility: [facility] Address: [address] [place] [address] Performed By: #### 5 7021-8 ####[facility] LABCLIA [id number] [place] [address] [place] Monocytes/100 WBC (Bld) 10.1 % Normal [facility] Comment on above: Order Comment: Speci men Type: BLOOD SPECIMENOrdering Facility: [facility] Address: [address] [place] [address] Performed By: #### 5 7021-8 ####[facility] LABCLIA [id number] [place] [address] [place] Neutrophils (Bld) [#/Vol] 2.81 10*3/uL Normal 1.45-7.50 [facility] Comment on above: Order Comment: Speci men Type: BLOOD SPECIMENOrdering Facility: [facility] Address: [address] [place] [address] Performed By: #### 5 7021-8 ####[facility] LABCLIA [id number] [place] [address] [place] Neutrophils/100 WBC (Bld) 47.1 % Normal [facility] Comment on above: Order Comment: Speci men Type: BLOOD SPECIMENOrdering Facility: [facility] Address: [address] [place] [address] Performed By: #### 5 7021-8 ####[facility] LABCLIA [id number] [place] [address] [place] Nucleated RBC (Bld) [#/Vol] 10*3/uL Normal <0.01 [facility] Comment on above: Order Comment: Speci men Type: BLOOD SPECIMENOrdering Facility: [facility] Address: [address] [place] [address] Performed By: #### 5 7021-8 ####[facility] LABCLIA [id number] [place] [address] [place] Nucleated RBC/100 WBC (Bld) [Ratio] 0.0 /100 WBC Normal [facility] Comment on above: Order Comment: Speci men Type: BLOOD SPECIMENOrdering Facility: [facility] Address: [address] [place] [address] Performed By: #### 5 7021-8 ####[facility] LABCLIA [id number] [place] [address] [place] Platelet mean volume (Bld) [Entitic vol] 9.6 fL Normal 9.0-12.7 [facility] Comment on above: Order Comment: Speci men Type: BLOOD SPECIMENOrdering Facility: [facility] Address: [address] [place] [address] Performed By: #### 5 7021-8 ####[facility] LABIA [id number] [place] [address] [place] Platelets (Bld) [#/Vol] 239 10*3/uL Normal 150-400 [facility] Comment on above: Order Comment: Speci men Type: BLOOD SPECIMENOrdering Facility: [facility] Address: [address] [place] [address] Performed By: #### 5 7021-8 ####[facility] LABIA [id number] [place] [address] [place] RBC (Bld) [#/Vol] 4.78 10*6/uL Normal 3.90-5.20 [facility] Comment on above: Order Comment: Speci men Type: BLOOD SPECIMENOrdering Facility: [facility] Address: [address] [place] [address] Performed By: #### 5 7021-8 ####[facility] LABIA [id number] [place] [address] [place] WBC (Bld) [#/Vol] 5.97 10*3/uL Normal 3.70-11.00 [facility] Comment on above: Order Comment: Speci men Type: BLOOD SPECIMENOrdering Facility: [facility] Address: [address] [place] [address] Performed By: #### 5 7021-8 ####[facility] LABIA [id number] [place] [address] [place] CNCNPATEDon 07-17-2023 CNCNPATED Normal [facility] CNOVon 07-17-2023 CNOV Normal [facility] CONFIRM BLOOD TYPEon 024 ABO B Normal [facility] Comment on above: Order Comment: Speci men Type: BLOOD SPECIMENOrdering Facility: [facility] Address: [address] [place] [address] Performed By: #### C ONABO ####[facility]ANKCLIA [id number] [place] [address] [place] Rh Nom (Bld) Positive Normal [facility] Comment on above: Order Comment: Speci men Type: BLOOD SPECIMENOrdering Facility: [facility] Address: [address] [place] [address] Performed By: #### C ONABO ####[facility] BLOOD BANKCLIA [id number] [place] [address] [place] Comprehensive metabolic 2000 panelon 07-17-2023 Albumin [Mass/Vol] 4.1 g/dL Normal 3.9-4.9 [facility] Comment on above: Order Comment: Speci men Type: BLOOD SPECIMENOrdering Facility: [facility] Address: [address] [address] Performed By: #### 2 532-0, 72080-6 ####[facility] LABCLIA [id number] [place] [address] [place] ALP [Catalytic activity/Vol] 86 U/L Normal 34-123 [facility] Comment on above: Order Comment: Speci men Type: BLOOD SPECIMENOrdering Facility: [facility] Address: [address] [place] [address] Performed By: #### 2 532-0, 78616-3 ####[facility] LABCLIA [id number] [place] [address] [place] ALT [Catalytic activity/Vol] 11 U/L Normal 7-38 [facility] Comment on above: Order Comment: Speci men Type: BLOOD SPECIMENOrdering Facility: [facility] Address: [address] [place] [address] Performed By: #### 2 532-0, 89882-3 ####[facility] LABCLIA [id number] [place] [address] [place] Anion gap [Moles/Vol] 14 mmol/L Normal 9-18 [facility] Comment on above: Order Comment: Speci men Type: BLOOD SPECIMENOrdering Facility: [facility] Address: [address] [place] [address] Performed By: #### 2 532-0, 57320-3 ####[facility] LABCLIA [id number] [place] [address] [place] AST [Catalytic activity/Vol] 11 U/L Low 13-35 [facility] Comment on above: Order Comment: Speci men Type: BLOOD SPECIMENOrdering Facility: [facility] Address: [address] [place] [address] Performed By: #### 2 532-0, 44035-2 ####[facility] LABCLIA [id number] [place] [address] [place] Bilirubin [Mass/Vol] 0.2 mg/dL Normal 0.2-1.3 [facility] Comment on above: Order Comment: Speci men Type: BLOOD SPECIMENOrdering Facility: [facility] Address: [address] [place] [address] Performed By: #### 2 532-0, 48908-6 ####[facility] LABCLIA [id number] [place] [address] [place] Calcium [Mass/Vol] 9.9 mg/dL Normal 8.5-10.2 [facility] Comment on above: Order Comment: Speci men Type: BLOOD SPECIMENOrdering Facility: [facility] Address: [address] [place] [address] Performed By: #### 2 532-0, 07045-8 ####[facility] LABCLIA [id number] [place] [address] [place] Chloride [Moles/Vol] 102 mmol/L Normal 97-105 [facility] Comment on above: Order Comment: Speci men Type: BLOOD SPECIMENOrdering Facility: [facility] Address: [address] [place] [address] Performed By: #### 2 532-0, 69352-7 ####[facility] LABCLIA [id number] [place] [address] [place] CO2 [Moles/Vol] 23 mmol/L Normal 22-30 [facility] Comment on above: Order Comment: Speci men Type: BLOOD SPECIMENOrdering Facility: [facility] Address: [address] [place] [address] Performed By: #### 2 532-0, 89035-7 ####[facility] LABCLIA [id number] [place] [address] [place] Creatinine [Mass/Vol] 1.01 mg/dL High 0.58-0.96 [facility] Comment on above: Order Comment: Speci men Type: BLOOD SPECIMENOrdering Facility: [facility] Address: [address] [place] [address] Performed By: #### 2 532-0, 57591-7 ####[facility] LABIA [id number] [address] [place] [facility] Creatinine and Glomerular filtration rate.predicted panel (S/P/Bld) 62 mL/min/1.73m??? Normal >=60 [facility] Comment on above: Order Comment: Speci men Type: BLOOD SPECIMENOrdering Facility: [facility] Address: [address] [place] [address] Result Comment: Annelise mated Glomerular Filtration Rate [...] actual GFR. Performed By: #### 2 532-0, 25050-7 ####[facility] LABCLIA [id number] [place] [address] [place] Glucose [Mass/Vol] 140 mg/dL High 74-99 [facility] Comment on above: Order Comment: Speci men Type: BLOOD SPECIMENOrdering Facility: [facility] Address: [address] [place] [address] Result Comment: The [place] [employer] (ADA) provides guidance for cutoff [...] Standards of Medical Care in Diabetes 2016, [place] [employer]. Diabetes Care. 2016.39(Suppl 1). Performed By: #### 2 532-0, 93322-8 ####[facility] LABIA [id number] [place] [address] [place] Potassium [Moles/Vol] 4.9 mmol/L Normal 3.7-5.1 [facility] Comment on above: Order Comment: Speci men Type: BLOOD SPECIMENOrdering Facility: [facility] Address: [address] [place] [address] Performed By: #### 2 532-0, 54526-0 ####[facility] LABIA [id number] [place] [address] [place] Protein [Mass/Vol] 6.0 g/dL Low 6.3-8.0 [facility] Comment on above: Order Comment: Speci men Type: BLOOD SPECIMENOrdering Facility: [facility] Address: [address] [place] [address] Performed By: #### 2 532-0, 02260-5 ####[facility] LABCLIA [id number] [place] [address] [place] Sodium [Moles/Vol] 139 mmol/L Normal 136-144 [facility] Comment on above: Order Comment: Speci men Type: BLOOD SPECIMENOrdering Facility: [facility] Address: [address] [place] [address] Performed By: #### 2 532-0, 35896-2 ####[facility] [id number] [place] [address] [place] Urea nitrogen [Mass/Vol] 21 mg/dL Normal 7-21 [facility] Comment on above: Order Comment: Sybili men Type: BLOOD SPECIMENOrdering Facility: [facility] Address: [address] [place] [address] Performed By: #### 2 532-0, 07129-3 ####[facility] [id number] [place] [address] [place] HbA1c (Bld)on 07-17-2023 Average glucose Estimated from glycated hemoglobin (Bld) [Mass/Vol] 148 mg/dL Normal [facility] Comment on above: Order Comment: Sybili men Type: BLOOD SPECIMENOrdering Facility: [facility] Address: [address] [place] [address] Result Comment: eAG: (Estimated average glucose) is a calculated value from HgbA1c and is account retention representative of the average blood glucose level in the last 2-3 month period. Performed By: #### 5 5454-3 ####[facility] [id number] [place] [address] [place] HbA1c (Bld) [Mass fraction] 6.8 % High 4.3-5.6 [facility] Comment on above: Order Comment: Sybili men Type: BLOOD SPECIMENOrdering Facility: [facility] Address: [address] [place] [address] Result Comment: Amer [place] Diabetes Association guidelines indicate that patients with HgbA1c in the range 5.7-6.4% are at increased risk for development of diabetes, and intervention by lifestyle modification may be beneficial. HgbA1c greater or equal to 6.5% is considered diagnostic of diabetes. Performed By: #### 5 5454-3 ####[facility] LABCLIA [id number] [place] [address] [place] LDH SerPl-cCncon 07-17-2023 LDH [Catalytic activity/Vol] 146 U/L Normal 135-214 [facility] Comment on above: Order Comment: Specmarko men Type: BLOOD SPECIMENOrdering Facility: [facility] Address: [address] [place] [address] Performed By: #### 2 532-0, 94997-7 ####[facility] LABCLIA [id number] [place] [address] [place] PT panel Coag (PPP)on 2023 INR Coag (PPP) [Relative time] 1.1 {INR} Normal 0.9-1.3 [facility] Comment on above: Order Comment: Phyllis stein Type: BLOOD SPECIMENOrdering Facility: [facility] Address: [address] [place] [address] Result Comment: Suzanne min K Antagonist (VKA) Therapeutic Range: INR 2 to 3 (Target INR of 2.5)Note: For patients treated with VKA drugs, such as warfarin, the [employer] 2012 Guideline recommends [...] al. Chest 2012, 141:7S-47SNishausten RA, et al. [facility] 2017, 70: 252-289 Performed By: #### 3 4528-0, 55018-4 ####[facility] LABCLIA [id number] [place] [address] [place] PT Coag (PPP) [Time] 11.2 s Normal 9.7-13.0 [facility] Comment on above: Order Comment: Speci men Type: BLOOD SPECIMENOrdering Facility: [facility] Address: [address] [place] [address] Performed By: #### 3 4528-0, 55122-1 ####[facility] LABCLIA [id number] [place] [address] [place] [facility] [place] STAPH AUREUS PCRon S. aureus and MRSA panel WALKER+probe (Nose) Normal Negative [facility] Comment on above: Order Comment: Speci men Type: SWAB OF INTERNAL NOSEOrdering Facility: [facility] Address: [address] [place] [address] Result Comment: Nega tive for Staphylococcus aureus by PCR.Negative for MRSA by PCR Performed By: #### S APCR ####[facility] LABCLIA [id number] [address] [place] TYPE AND SCREEN,30 DAYon ABO B Normal [facility] Comment on above: Order Comment: Speci men Type: BLOOD SPECIMENOrdering Facility: [facility] Address: [address] [place] [address] Performed By: #### T SCR30 ####[facility] BLOOD BANKCLIA [id number] [place] [address] [place] HISTORICAL AB SCR STATUS Negative Normal [facility] Comment on above: Order Comment: Speci men Type: BLOOD SPECIMENOrdering Facility: [facility] Address: [address] [place] [address] Performed By: #### T SCR30 ####[facility] BLOOD BANKCLIA [id number] [place] [address] [place] Rh Nom (Bld) Positive Normal [facility] Comment on above: Order Comment: Speci men Type: BLOOD SPECIMENOrdering Facility: [facility] Address: [address] [place] [address] Performed By: #### T SCR30 ####[facility] BLOOD [facility] [id number] [place] [address] [place] URINALYSIS, DIPSTICK ONLYon 07-17-2023 Bilirubin Ql (U) Negative Normal Negative [facility] Comment on above: Order Comment: Speci men Type: URINE SPECIMENOrdering Facility: [facility] Address: [address] [place] [address] Performed By: #### U A ####[facility] LABCLIA [id number] [place] [address] [place] Clarity (Unsp spec) Clear Normal Clear [facility] Comment on above: Order Comment: Speci men Type: URINE SPECIMENOrdering Facility: [facility] Address: [address] [place] [address] Performed By: #### U A ####[facility] LABIA [id number] [place] [address] [place] Color (U) Yellow Normal Yellow [facility] Comment on above: Order Comment: Speci men Type: URINE SPECIMENOrdering Facility: [facility] Address: [address] [place] [address] Performed By: #### U A ####[facility] LABCLIA [id number] [place] [address] [place] Glucose Test strip (U) [Mass/Vol] 3+ Abnormal Negative [facility] Comment on above: Order Comment: Speci men Type: URINE SPECIMENOrdering Facility: [facility] Address: [address] [place] [address] Performed By: #### U A ####[facility] LABCLIA [id number] [place] [address] [place] Hemoglobin Ql (U) Negative Normal Negative [facility] Comment on above: Order Comment: Speci men Type: URINE SPECIMENOrdering Facility: [facility] Address: [address] [place] [address] Performed By: #### U A ####[facility] LABCLIA [id number] [place] [address] [place] Ketones Ql (U) Negative Normal Negative [facility] Comment on above: Order Comment: Speci men Type: URINE SPECIMENOrdering Facility: [facility] Address: [address] [place] [address] Performed By: #### U A ####[facility] LABCLIA [id number] [place] [address] [place] Leukocyte esterase Test strip Ql (U) Negative Normal Negative [facility] Comment on above: Order Comment: Speci men Type: URINE SPECIMENOrdering Facility: [facility] Address: [address] [place] [address] Performed By: #### U A ####[facility] LABCLIA [id number] [place] [address] [place] Nitrite Ql (U) Negative Normal Negative [facility] Comment on above: Order Comment: Speci men Type: URINE SPECIMENOrdering Facility: [facility] Address: [address] [place] [address] Performed By: #### U A ####[facility] LABCLIA [id number] [place] [address] [place] pH (U) 6.0 [pH] Normal <8.5 [facility] Comment on above: Order Comment: Speci men Type: URINE SPECIMENOrdering Facility: [facility] Address: [address] [place] [address] Performed By: #### U A ####[facility] LABCLIA [id number] [place] [address] [place] Protein (U) [Mass/Vol] Negative Normal Negative [facility] Comment on above: Order Comment: Speci men Type: URINE SPECIMENOrdering Facility: [facility] Address: [address] [place] [address] Performed By: #### U A ####[facility] LABIA [id number] [place] [address] [place] Specific gravity (U) [Rel density] 1.026 Normal 1.005-1.030 [facility] Comment on above: Order Comment: Speci men Type: URINE SPECIMENOrdering Facility: [facility] Address: [address] [place] [address] Performed By: #### U A ####[facility] [id number] [place] [address] [place] Urobilinogen Ql (U) 1.0 EU/dL Normal 0.2-1.0 EU/dL [facility] Comment on above: Order Comment: Speci men Type: URINE SPECIMENOrdering Facility: [facility] Address: [address] [place] [address] Performed By: #### U A ####[facility] [id number] [place] [address] [place] aPTT PPPon 07-17-2023 aPTT Coag (PPP) [Time] 31.3 s Normal 23.0-32.4 [facility] Comment on above: Order Comment: Speci men Type: BLOOD SPECIMENOrdering Facility: [facility] Address: [address] [place] [address] Performed By: #### 3 4528-0, 34787-2 ####[facility] LABIA [id number] [place] [address] [place] CNPNon 07-11-2023 CNPN Normal [facility] CNOVon 07-02-2023 CNOV Normal [facility] CNOV Normal [facility] CNOV Normal [facility] CTA ABD/PEL/LOWER EXT WO/W I VCONon 07-02-2023 CTA ABD/PEL/LOWER EXT WO/W IVCON Normal [facility] CTA CHEST (NONGATED) W IVCON on 07-02-2023 CTA CHEST (NONGATED) W IVCON Normal [facility] ECG COMPLETEon 07-02-2023 ECG COMPLETE Normal [facility] CNPTOUTREACHon 06-27-2023 CNPTOUTREACH Normal [facility] CNPNon 06-26-2023 CNPN Normal [facility] CNPTOUTREACHon 06-21-2023 CNPTOUTREACH Normal [facility] CNOVon 06-14-2023 CNOV Normal [facility] CT CHEST CARDIAC WO IVCONon 06-14-2023 CT CHEST CARDIAC WO IVCON Invalid Interpretation Code [facility] PVR LEG LOVE VAS LABon 2022 PVR LEG LOVE VAS LAB Normal [facility] US CAROTID ARTERIES LOVE VAS LABon 06-14-2023 US CAROTID ARTERIES LOVE VAS LAB Normal [facility] US LEG VEIN MAP LOVE VAS LABo n 06-14-2023 US LEG VEIN MAP LOVE VAS LAB Normal [facility] US MAMMARY ARTERY LOVE VAS LA Bon 06-14-2023 US MAMMARY ARTERY LOVE VAS LAB Normal [facility] US RADIAL ARTERY MAP LOVE VAS LABon 06-14-2023 US RADIAL ARTERY MAP LOVE VAS LAB Normal [facility] Reminderson 06-10-2023 Reminders - From: Celia Donohue LPN To: GSN - Clinical; Sent: 06/10/2023 15:55:47 EST Show up: 04/10/2025 07:00:00 EDT Subject: colonoscopy recall Due Date/Time: 05/11/2025 07:00:00 EST Reminder/Recall Patient due for surveillance colonoscopy 05/11/2025. Normal [facility] CNPNon 05-30-2023 CNPN Normal [facility] Comprehensive metabolic 2000 panelon 05-29-2023 Albumin [Mass/Vol] 4.2 g/dL 3.9 - 4.9 g/dL [facility] ALP [Catalytic activity/Vol] 78 U/L 34 - 123 U/L [facility] ALT [Catalytic activity/Vol] 17 U/L 7 - 38 U/L [facility] Anion gap [Moles/Vol] 15 mmol/L 9 - 18 mmol/L [facility] AST [Catalytic activity/Vol] 16 U/L 13 - 35 U/L [facility] Bilirubin [Mass/Vol] 0.2 mg/dL 0.2 - 1 .3 mg/dL [facility] Calcium [Mass/Vol] 10.5 mg/dL High 8.5 - 10. 2 mg/dL [facility] Chloride [Moles/Vol] 100 mmol/L 97 - 10 5 mmol/L [facility] CO2 [Moles/Vol] 21 mmol/L Low 22 - 30 mmol/L [facility] Creatinine [Mass/Vol] 0.82 mg/dL 0.58 - 0.96 mg/dL [facility] Estimated Glomerular Filtration Rate 79 mL/min/1.73m >=60 mL/min/1.73m [facility] Glucose [Mass/Vol] 216 mg/dL High 74 - 99 mg/dL [facility] Potassium [Moles/Vol] 4.8 mmol/L 3.7 - 5.1 mmol/L [facility] Protein [Mass/Vol] 6.7 g/dL 6.3 - 8.0 g/dL [facility] Sodium [Moles/Vol] 136 mmol/L 136 - 144 mmol/L [facility] Urea nitrogen [Mass/Vol] 22 mg/dL High 7 - 21 mg/dL [facility] LIPID PANEL, NONFASTINGon Cholesterol [Mass/Vol] 220 mg/dL High <200 mg/dL [facility] HDL Cholesterol, Nonfasting 35 mg/dL Low >39 mg/dL [facility] LDL Cholesterol, Nonfasting [facility] LDL/HDL Ratio, Nonfasting [facility] Non HDL Cholesterol, Nonfasting 185 mg/dL High <130 mg/dL [facility] Total Chol/HDL Ratio, Nonfasting 6.29 mg/dL High <5.10 mg/dL [facility] Triglycerides, Nonfasting 414 mg/dL High <150 mg/dL [facility] VLDL Cholesterol, Nonfasting [facility] CBC panel Auto (Bld)on 05-28 Erythrocyte distribution width (RBC) [Ratio] 13.5 % 11.5 - 15.0 % [facility] Hematocrit (Bld) [Volume fraction] 47.6 % High 36.0 - 46.0 % [facility] Hemoglobin (Bld) [Mass/Vol] 15.6 g/dL High 11.5 - 15.5 g/dL [facility] MCH (RBC) [Entitic mass] 31.1 pg 26.0 - 34.0 pg [facility] MCHC (RBC) [Mass/Vol] 32.8 g/dL 30.5 - 36.0 g/dL [facility] MCV (RBC) [Entitic vol] 94.8 fL 80.0 - 100.0 fL [facility] Nucleated RBC (Bld) [#/Vol] <0.01 k/uL [facility] Platelet mean volume (Bld) [Entitic vol] 9.9 fL 9.0 - 12.7 fL [facility] Platelets (Bld) [#/Vol] 295 10*3/uL 150 - 400 k/uL [facility] RBC (Bld) [#/Vol] 5.02 10*6/uL 3.90 - 5.2 0 m/uL [facility] WBC (Bld) [#/Vol] 8.12 10*3/uL 3.70 - 11. 00 k/uL [facility] Erythrocyte distribution width (RBC) [Ratio] 13.5 % Normal 11.5-15.0 [facility] Comment on above: Order Comment: Speci men Type: BLOOD SPECIMENOrdering Facility: [facility] Address: [address] [place] [address] Performed By: #### 5 8410-2 ####[facility] LABCLIA [id number] [place] [address] [place] Hematocrit (Bld) [Volume fraction] 47.6 % High 36.0-46.0 [facility] Comment on above: Order Comment: Speci men Type: BLOOD SPECIMENOrdering Facility: [facility] Address: [address] [place] [address] Performed By: #### 5 8410-2 ####[facility] LABCLIA [id number] [place] [address] [place] Hemoglobin (Bld) [Mass/Vol] 15.6 g/dL High 11.5-15.5 [facility] Comment on above: Order Comment: Speci men Type: BLOOD SPECIMENOrdering Facility: [facility] Address: [address] [place] [address] Performed By: #### 5 8410-2 ####[facility] LABCLIA [id number] [place] [address] [place] MCH (RBC) [Entitic mass] 31.1 pg Normal 26.0-34.0 [facility] Comment on above: Order Comment: Speci men Type: BLOOD SPECIMENOrdering Facility: [facility] Address: [address] [place] [address] Performed By: #### 5 8410-2 ####[facility] LABCLIA [id number] [place] [address] [place] MCHC (RBC) [Mass/Vol] 32.8 g/dL Normal 30.5-36.0 [facility] Comment on above: Order Comment: Speci men Type: BLOOD SPECIMENOrdering Facility: [facility] Address: [address] [place] [address] Performed By: #### 5 8410-2 ####[facility] LABIA [id number] [place] [address] [place] MCV (RBC) [Entitic vol] 94.8 fL Normal 80.0-100.0 [facility] Comment on above: Order Comment: Speci men Type: BLOOD SPECIMENOrdering Facility: [facility] Address: [address] [place] [address] Performed By: #### 5 8410-2 ####[facility] LABCLIA [id number] [place] [address] [place] Nucleated RBC (Bld) [#/Vol] 10*3/uL Normal <0.01 [facility] Comment on above: Order Comment: Speci men Type: BLOOD SPECIMENOrdering Facility: [facility] Address: [address] [place] [address] Performed By: #### 5 8410-2 ####[facility] LABIA [id number] [place] [address] [place] Platelet mean volume (Bld) [Entitic vol] 9.9 fL Normal 9.0-12.7 [facility] Comment on above: Order Comment: Speci men Type: BLOOD SPECIMENOrdering Facility: [facility] Address: [address] [place] [address] Performed By: #### 5 8410-2 ####[facility] LABIA [id number] [place] [address] [place] Platelets (Bld) [#/Vol] 295 10*3/uL Normal 150-400 [facility] Comment on above: Order Comment: Speci men Type: BLOOD SPECIMENOrdering Facility: [facility] Address: [address] [place] [address] Performed By: #### 5 8410-2 ####[facility] LABIA [id number] [place] [address] [place] RBC (Bld) [#/Vol] 5.02 10*6/uL Normal 3.90-5.20 [facility] Comment on above: Order Comment: Speci men Type: BLOOD SPECIMENOrdering Facility: [facility] Address: [address] [place] [address] Performed By: #### 5 8410-2 ####[facility] LABIA [id number] [place] [address] [place] WBC (Bld) [#/Vol] 8.12 10*3/uL Normal 3.70-11.00 [facility] Comment on above: Order Comment: Speci men Type: BLOOD SPECIMENOrdering Facility: [facility] Address: [address] [place] [address] Performed By: #### 5 8410-2 ####[facility] LABCLIA [id number] [address] [address] [place] CNOVon 05-28-2023 CNOV Normal [facility] Comprehensive metabolic 2000 panelon 05-28-2023 Albumin [Mass/Vol] 4.2 g/dL Normal 3.9-4.9 [facility] Comment on above: Order Comment: Speci men Type: BLOOD SPECIMENOrdering Facility: [facility] Address: [address] [place] [address] Performed By: #### 3 3762-6, 78620-5, LIPNF ####[facility] LABIA [id number] [place] [address] [place] ALP [Catalytic activity/Vol] 78 U/L Normal 34-123 [facility] Comment on above: Order Comment: Speci men Type: BLOOD SPECIMENOrdering Facility: [facility] Address: [address] [place] [address] Performed By: #### 3 3762-6, 92269-0, LIPNF ####[facility] LABIA [id number] [place] [address] [place] ALT [Catalytic activity/Vol] 17 U/L Normal 7-38 [facility] Comment on above: Order Comment: Speci men Type: BLOOD SPECIMENOrdering Facility: [facility] Address: [address] [place] [address] Performed By: #### 3 3762-6, 79399-7, LIPNF ####[facility] LABIA [id number] [place] [id number] [place] Anion gap [Moles/Vol] 15 mmol/L Normal 9-18 [facility] Comment on above: Order Comment: Speci men Type: BLOOD SPECIMENOrdering Facility: [facility] Address: [address] [place] [address] Performed By: #### 3 3762-, 15245-4, LIPNF ####[facility] LABCLIA [id number] [place] [address] [place] AST [Catalytic activity/Vol] 16 U/L Normal 13-35 [facility] Comment on above: Order Comment: Speci men Type: BLOOD SPECIMENOrdering Facility: [facility] Address: [address] [place] [address] Performed By: #### 3 376-6, , LIPNF ####[facility] LABCLIA [id number] [place] [address] [place] Bilirubin [Mass/Vol] 0.2 mg/dL Normal 0.2-1.3 [facility] Comment on above: Order Comment: Speci men Type: BLOOD SPECIMENOrdering Facility: [facility] Address: [address] [place] [address] Performed By: #### 3 376-6, , LIPNF ####[facility] LABIA [id number] [place] [address] [place] Calcium [Mass/Vol] 10.5 mg/dL High 8.5-10.2 [facility] Comment on above: Order Comment: Speci men Type: BLOOD SPECIMENOrdering Facility: [facility] Address: [address] [place] [address] Performed By: #### 3 376-6, , LIPNF ####[facility] LABIA [id number] [place] [address] [place] Chloride [Moles/Vol] 100 mmol/L Normal 97-105 [facility] Comment on above: Order Comment: Speci men Type: BLOOD SPECIMENOrdering Facility: [facility] Address: [address] [place] [address] Performed By: #### 3 3762-6, , LIPNF ####[facility] LABIA [id number] [place] [address] [place] CO2 [Moles/Vol] 21 mmol/L Low 22-30 [facility] Comment on above: Order Comment: Speci men Type: BLOOD SPECIMENOrdering Facility: [facility] Address: [address] [place] [address] Performed By: #### 3 3762-6, 25414-3, LIPNF ####[facility] LABCLIA [id number] [place] [address] [place] Creatinine [Mass/Vol] 0.82 mg/dL Normal 0.58-0.96 [facility] Comment on above: Order Comment: Speci men Type: BLOOD SPECIMENOrdering Facility: [facility] Address: [address] [place] [address] Performed By: #### 3 3762-6, 22270-5, LIPNF ####[facility] LABCLIA [id number] [place] [address] [place] Creatinine and Glomerular filtration rate.predicted panel (S/P/Bld) 79 mL/min/1.73m??? Normal >=60 [facility] Comment on above: Order Comment: Speci men Type: BLOOD SPECIMENOrdering Facility: [facility] Address: [address] [place] [address] Result Comment: Annelise mated Glomerular Filtration Rate [...] actual GFR. Performed By: #### 3 3762-6, 79644-8, LIPNF ####[facility] LABCLIA [id number] [place] [address] [place] Glucose [Mass/Vol] 216 mg/dL High 74-99 [facility] Comment on above: Order Comment: Speci men Type: BLOOD SPECIMENOrdering Facility: [facility] Address: [address] [place] [address] Result Comment: The [employer] [employer] (ADA) provides guidance for cutoff [...] Standards of Medical Care in Diabetes 2016, [employer] [employer]. Diabetes Care. 2016.39(Suppl 1). Performed By: #### 3 3762-6, 81722-8, LIPNF ####[facility] LABCLIA [id number] [place] [address] [place] Potassium [Moles/Vol] 4.8 mmol/L Normal 3.7-5.1 [facility] Comment on above: Order Comment: Speci men Type: BLOOD SPECIMENOrdering Facility: [facility] Address: [address] [place] [address] Performed By: #### 3 3762-6, 45909-3, LIPNF ####[facility] LABCLIA [id number] [place] [address] [place] Protein [Mass/Vol] 6.7 g/dL Normal 6.3-8.0 [facility] Comment on above: Order Comment: Speci men Type: BLOOD SPECIMENOrdering Facility: [facility] Address: [address] [place] [address] Performed By: #### 3 3762-6, 18690-6, LIPNF ####[facility] LABCLIA [id number] [place] [address] [place] Sodium [Moles/Vol] 136 mmol/L Normal 136-144 [facility] Comment on above: Order Comment: Speci men Type: BLOOD SPECIMENOrdering Facility: [facility] Address: [address] [place] [address] Performed By: #### 3 3762-6, , LIPNF ####[facility] LABCLIA [id number] [place] [address] [place] Urea nitrogen [Mass/Vol] 22 mg/dL High 7- [facility] Comment on above: Order Comment: Speci men Type: BLOOD SPECIMENOrdering Facility: [facility] Address: [address] [place] [address] Performed By: #### 3 3762-6, , LIPNF ####[facility] LABCLIA [id number] [place] [address] [place] LIPID PANEL, NONFASTINGon Cholesterol [Mass/Vol] 220 mg/dL High <200 [facility] Comment on above: Order Comment: Speci men Type: BLOOD SPECIMENOrdering Facility: [facility] Address: [address] [place] [address] Result Comment: <200 mg/dL, Desirable 200-239 mg/dL, Borderline high>239 mg/dL, High Performed By: #### 3 376-6, , LIPNF ####[facility] LABCLIA [id number] [place] [address] [place] HDL CHOLESTEROL, NF 35 mg/dL Low >39 [facility] Comment on above: Order Comment: Speci men Type: BLOOD SPECIMENOrdering Facility: [facility] [facility] Address: [address] [place] [address] Result Comment: 40-5 9 mg/dL, Acceptable>59 mg/dL, High: Negative risk factor for coronary heart disease<40 mg/dL, Low: Positive risk factor for coronary heart disease Performed By: #### 3 3762-6, 95941-2, LIPNF ####[facility] LABCLIA [id number] [place] [address] [place] LDL CHOLESTEROL, NF Normal [facility] Comment on above: Order Comment: Speci sarita Type: BLOOD SPECIMENOrdering Facility: [facility] Address: [address] [place] [address] Result Comment: Unab le to calculate due to increased Triglycerides. A Direct LDL Cholesterol measurement will not be performed. If clinically indicated, a fasting Basic Lipid Panel (LIPB) may be ordered. Performed By: #### 3 3762-6, 92676-6, LIPNF ####[facility] LABCLIA [id number] [address] STATES OF [facility] LDL/HDL RATIO, NF Normal [facility] Comment on above: Order Comment: Sybili sarita Type: BLOOD SPECIMENOrdering Facility: [facility] Address: [address] [place] [address] Result Comment: Unab le to calculate due to elevated Triglycerides.Reference:1. National Cholesterol Education Program ATP III Guideline At-A-Glance Quick Desk Reference: National Heart, Lung, and Blood [place]. National Institutes of Health. 2001: NIH Publication No. 01-3305.2. An International Atherosclerosis Society position paper: global recommendations for the management of dyslipidemia: executive summary, Atherosclerosis. 2014: 232(2):410-413. Performed By: #### 3 3762-6, 18027-6, LIPNF ####[facility] LABCLIA [id number] [address] [place] NON HDL CHOL, NF 185 mg/dL High <130 [facility] Comment on above: Order Comment: Phyllis stein Type: BLOOD SPECIMENOrdering Facility: [facility] Address: [address] [place] [address] Result Comment: <130 mg/dL, Optimal 130-159 mg/dL, Near optimal/above optimal 160-189 mg/dL, Borderline high 190-219 mg/dL, High>219 mg/dL, Very highSecondary prevention optimal non HDL Cholesterol levels are recommended to be <100 mg/dL Performed By: #### 3 3762-6, 39128-8, LIPNF ####[facility] LABCLIA [id number] [place] [address] [place] T CHOL/HDL RATIO NF 6.29 mg/dL High <5.10 [facility] Comment on above: Order Comment: Speci men Type: BLOOD SPECIMENOrdering Facility: [facility] Address: [address] [place] [address] Performed By: #### 3 3762-6, 30550-6, LIPNF ####[facility] LABCLIA [id number] [place] [address] [place] TRIGLYCERIDES, NF 414 mg/dL High <150 [facility] Comment on above: Order Comment: Speci men Type: BLOOD SPECIMENOrdering Facility: [facility] Address: [address] [place] [address] Result Comment: <150 mg/dL, Normal 150-199 mg/dL, Borderline high 200-499 mg/dL, High>499 mg/dL, Very high Performed By: #### 3 3762-6, 30873-0, LIPNF ####[facility] LABIA [id number] [place] [address] [place] VLDL CHOLESTEROL, NF Normal [facility] Comment on above: Order Comment: Speci men Type: BLOOD SPECIMENOrdering Facility: [facility] Address: [address] [place] [address] Result Comment: Unab le to calculate due to elevated Triglycerides. Performed By: #### 3 3762-6, 42945-4, LIPNF ####[facility] LABCLIA [id number] [place] [address] [place] NT PRO BNPon 05-28-2023 Natriuretic peptide.B prohormone N-Terminal [Mass/Vol] 200 pg/mL High <125 pg/mL [facility] NT-proBNP SerPl-mCncon 05-28 Natriuretic peptide.B prohormone N-Terminal [Mass/Vol] 200 pg/mL High <125 [facility] Comment on above: Order Comment: Speci men Type: BLOOD SPECIMENOrdering Facility: [facility] Address: [address] [place] [address] Performed By: #### 3 3762-6, 80241-8, LIPUGO ####[facility] LABCLIA [id number] [place] [address] [place] CNPNon 05-08-2023 CNPN Normal [facility] CNPNon 05-02-2023 CNPN Normal [facility] CBC panel Auto (Bld)on 04-03 Erythrocyte distribution width (RBC) [Ratio] 13.0 % 11.5 - 15.0 % [facility] Hematocrit (Bld) [Volume fraction] 53.9 % High 36.0 - 46.0 % [facility] Hemoglobin (Bld) [Mass/Vol] 18.6 g/dL High 11.5 - 15.5 g/dL [facility] MCH (RBC) [Entitic mass] 29.8 pg 26.0 - 34.0 pg [facility] MCHC (RBC) [Mass/Vol] 34.5 g/dL 30.5 - 36.0 g/dL [facility] MCV (RBC) [Entitic vol] 86.2 fL 80.0 - 100.0 fL [facility] Nucleated RBC (Bld) [#/Vol] <0.01 k/uL [facility] Platelet mean volume (Bld) [Entitic vol] 9.6 fL 9.0 - 12.7 fL [facility] Platelets (Bld) [#/Vol] 269 10*3/uL 150 - 400 k/uL [facility] RBC (Bld) [#/Vol] 6.25 10*6/uL High 3.90 - 5.2 0 m/uL [facility] WBC (Bld) [#/Vol] 10.50 10*3/uL 3.70 - 11 .00 k/uL [facility] Comprehensive metabolic 2000 panelon 04-03-2023 Albumin [Mass/Vol] 4.6 g/dL 3.9 - 4.9 g/dL [facility] ALP [Catalytic activity/Vol] 82 U/L 34 - 123 U/L [facility] ALT [Catalytic activity/Vol] 15 U/L 7 - 38 U/L [facility] Anion gap [Moles/Vol] 19 mmol/L High 9 - 18 mmol/L [facility] AST [Catalytic activity/Vol] 14 U/L 13 - 35 U/L [facility] Bilirubin [Mass/Vol] 0.9 mg/dL 0.2 - 1 .3 mg/dL [facility] Calcium [Mass/Vol] 10.5 mg/dL High 8.5 - 10. 2 mg/dL [facility] Chloride [Moles/Vol] 94 mmol/L Low 97 - 10 5 mmol/L [facility] CO2 [Moles/Vol] 18 mmol/L Low 22 - 30 mmol/L [facility] Creatinine [Mass/Vol] 0.81 mg/dL 0.58 - 0.96 mg/dL [facility] Estimated Glomerular Filtration Rate 81 mL/min/1.73m >=60 mL/min/1.73m [facility] Glucose [Mass/Vol] 241 mg/dL High 74 - 99 mg/dL [facility] Potassium [Moles/Vol] 4.2 mmol/L 3.7 - 5.1 mmol/L [facility] Protein [Mass/Vol] 7.5 g/dL 6.3 - 8.0 g/dL [facility] Sodium [Moles/Vol] 131 mmol/L Low 136 - 144 mmol/L [facility] Urea nitrogen [Mass/Vol] 20 mg/dL 7 - 21 mg/dL [facility] HbA1c (Bld)on 04-03-2023 Average glucose Estimated from glycated hemoglobin (Bld) [Mass/Vol] 163 mg/dL [facility] HbA1c (Bld) [Mass fraction] 7.3 % High 4.3 - 5.6 % [facility] PT panel Coag (PPP)on 2022 INR Coag (PPP) [Relative time] 1.1 {INR} 0.9 - 1.3 [facility] PT Coag (PPP) [Time] 11.4 s 9.7 - 1 3.0 sec [facility] Activated partial thrombopla stin time (aPTT) in platelet poor plasma by coagulation aOrdered By: Patrizia Melendrez on 03-20-2023 aPTT Coag (PPP) [Time] 28.8 s 25.1-36.5 [facility] Comment on above: A hematocrit value g reater than 55% may lead to inaccurate results in coagulation testing. Patients having hematocrit values >55% require a special collection tube for coagulation studies. Please contact the laboratory at [phone] for redraw instructions. Basophils Auto (Bld) [#/Vol] Ordered By: Patrizia Melendrez on 03-20-2023 Basophils (Bld) [#/Vol] 0.0 10*3/uL 0.0-0.2 [facility] Basophils/100 WBC Auto (Bld) Ordered By: Patrizia Melendrez on 03-20-2023 Basophils/100 WBC (Bld) 0.4 % . [facility] Blood Urea Nitrogenon 2022 Urea nitrogen [Mass/Vol] 21 mg/dL Normal 7-25 [facility] Comment on above: Performed By: #### B UN, CBC, CREAT, PP, LYTES, LIPID #### [facility] [address] Carbon dioxide, total [Moles /volume] in Serum or PlasmaOrdered By: Patrizia Melendrez on 03-20-2023 CO2 [Moles/Vol] 28.8 mmol/L 21.0-31.0 [facility] Chloride [Moles/volume] in S radha or PlasmaOrdered By: Patrizia Melendrez on 03-20-2023 Chloride [Moles/Vol] 105 mmol/L 98-107 [facility] Cholesterol [Mass/volume] in Serum or PlasmaOrdered By: Patrizia Melendrez on 03-20-2023 Cholesterol [Mass/Vol] 270 mg/dL 140-200 [facility] Comment on above: Chol less than 200 m g/dl low riskChol 201-239 mg/dl borderline riskChol 240 mg/dl and greater high risk Cholesterol in LDL Calc [Mas s/Vol]Ordered By: Patrizia Melendrez on 03-20-2023 Cholesterol in LDL [Mass/Vol] 170 mg/dL 0-100 [facility] Comment on above: LDL ATP III CLASSIFI CATIONLDL less than 100 mg/dL OptimalLDL 100-129 mg/dL Near or above optimalLDL 130-159 mg/dL Borderline highLDL 160-189 mg/dL HighLDL greater than 189 mg/dL Very high Cholesterol in VLDL Calc [Ma ss/Vol]Ordered By: Patrizia Melendrez on 03-20-2023 Cholesterol in VLDL [Mass/Vol] 55 mg/dL [facility] Coagulation Profileon 2022 aPTT Coag (Bld) [Time] 28.8 s Normal 25.1-36.5 [facility] Comment on above: Result Comment: A he matocrit value greater than 55% may lead to inaccurate results in coagulation testing. Patients having hematocrit values >55% require a special collection tube for coagulation studies. Please contact the laboratory at [phone] for redraw instructions. PERFORMED BY: [place] [address] PATHOLOGIST [employer] KEVYN DAVIDSON M.D. Performed By: #### B UN, CBC, CREAT, PP, LYTES, LIPID #### [address] INR Coag (PPP) [Relative time] 0.9 {INR} Normal [facility] Comment on above: Result Comment: INR Therapeutic [...] UN, CBC, CREAT, PP, LYTES, LIPID #### [address] PT Coag (PPP) [Time] 11.2 s Normal 9.0-12.9 [facility] Comment on above: Result Comment: A he matocrit value greater than 55% may lead to inaccurate results in coagulation testing. Patients having hematocrit values >55% require a special collection tube for coagulation studies. Please contact the laboratory at [phone] for redraw instructions. Performed By: #### B UN, CBC, CREAT, PP, LYTES, LIPID #### [address] Complete Blood Count Auto Di ffon 03-20-2023 Basophils (Bld) [#/Vol] 0.0 10*3/uL Normal 0.0-0.2 [facility] Comment on above: Result Comment: PERF ORMED BY: [place] [address] PATHOLOGIST [employer] KEVYN DAVIDSON M.D. Performed By: #### B UN, CBC, CREAT, PP, LYTES, LIPID #### [address] Basophils/100 WBC (Bld) 0.4 % Normal . [facility] Comment on above: Performed By: #### B UN, CBC, CREAT, PP, LYTES, LIPID #### [address] Eosinophils (Bld) [#/Vol] 0.3 10*3/uL Normal 0.0-0.45 [facility] Comment on above: Performed By: #### B UN, CBC, CREAT, PP, LYTES, LIPID #### [address] Eosinophils/100 WBC (Bld) 4.1 % Normal . [facility] Comment on above: Performed By: #### B UN, CBC, CREAT, PP, LYTES, LIPID #### [address] Erythrocyte distribution width (RBC) [Ratio] 14.4 % Normal 11.9-15.3 [facility] Comment on above: Performed By: #### B UN, CBC, CREAT, PP, LYTES, LIPID #### [address] Hematocrit (Bld) [Volume fraction] 47.2 % High 34.0-46.4 [facility] Comment on above: Performed By: #### B UN, CBC, CREAT, PP, LYTES, LIPID #### [address] Hemoglobin (Bld) [Mass/Vol] 16.0 g/dL High 11.8-15.4 [facility] Comment on above: Performed By: #### B UN, CBC, CREAT, PP, LYTES, LIPID #### [address] Lymphocytes (Bld) [#/Vol] 2.5 10*3/uL Normal 1.00-4.8 [facility] Comment on above: Performed By: #### B UN, CBC, CREAT, PP, LYTES, LIPID #### [address] Lymphocytes/100 WBC (Bld) 34.2 % Normal . [facility] Comment on above: Performed By: #### B UN, CBC, CREAT, PP, LYTES, LIPID #### [address] MCH (RBC) [Entitic mass] 30.5 pg Normal 24.7-34.3 [facility] Comment on above: Performed By: #### B UN, CBC, CREAT, PP, LYTES, LIPID #### [address] MCV (RBC) [Entitic vol] 89.9 fL Normal 80-100 [facility] Comment on above: Performed By: #### B UN, CBC, CREAT, PP, LYTES, LIPID #### [address] Mean Corpuscular HGB Conc 33.9 g/dL Normal 32.0-35.0 [facility] Comment on above: Performed By: #### B UN, CBC, CREAT, PP, LYTES, LIPID #### [address] Monocytes (Bld) [#/Vol] 0.6 10*3/uL Normal 0.0-0.8 [facility] Comment on above: Performed By: #### B UN, CBC, CREAT, PP, LYTES, LIPID #### [address] Monocytes/100 WBC (Bld) 8.4 % Normal . [facility] Comment on above: Performed By: #### B UN, CBC, CREAT, PP, LYTES, LIPID #### [address] Neutrophils (Bld) [#/Vol] 3.8 10*3/uL Normal 1.8-7.7 [facility] Comment on above: Performed By: #### B UN, CBC, CREAT, PP, LYTES, LIPID #### [address] Neutrophils/100 WBC (Bld) 52.9 % Normal . [facility] Comment on above: Performed By: #### B UN, CBC, CREAT, PP, LYTES, LIPID #### [address] NRBC% 0.1 /100{WBC} Normal 0-0.5 [facility] Comment on above: Performed By: #### B UN, CBC, CREAT, PP, LYTES, LIPID #### [address] Platelet mean volume (Bld) [Entitic vol] 8.0 fL Normal 6.3-10.7 [facility] Comment on above: Performed By: #### B UN, CBC, CREAT, PP, LYTES, LIPID #### [place] [address] [place] Platelets (Bld) [#/Vol] 232 10*3/uL Normal 150-450 [facility] Comment on above: Performed By: #### B UN, CBC, CREAT, PP, LYTES, LIPID #### [place] [address] [place] RBC (Bld) [#/Vol] 5.25 10*6/uL High 3.60-5.00 [facility] Comment on above: Performed By: #### B UN, CBC, CREAT, PP, LYTES, LIPID #### [place] [address] [place] WBC (Bld) [#/Vol] 7.3 10*3/uL Normal 3.8-11.6 [facility] Comment on above: Performed By: #### B UN, CBC, CREAT, PP, LYTES, LIPID #### [facility] [address] Creatinineon 03-20-2023 Creatinine [Mass/Vol] 0.83 mg/dL Normal 0.60-1.[address] [facility] Comment on above: Performed By: #### B UN, CBC, CREAT, PP, LYTES, LIPID #### [facility] [address] GFR/1.73 sq M.predicted MDRD (S/P/Bld) [Vol rate/Area] mL/min/{1.73_m2} Normal [facility] Comment on above: Performed By: #### B UN, CBC, CREAT, PP, LYTES, LIPID #### [address] Creatinine [Mass/volume] in Serum or PlasmaOrdered By: Patrizia Melendrez on 03-20-2023 Creatinine [Mass/Vol] 0.83 mg/dL 0.60-1.[address] [facility] Electrolyteson 03-20-2023 Anion gap [Moles/Vol] 8.5 mmol/L Normal 6.0-15.[address] [facility] Comment on above: Performed By: #### B UN, CBC, CREAT, PP, LYTES, LIPID #### [address] Chloride [Moles/Vol] 105 mmol/L Normal 98-107 [facility] Comment on above: Performed By: #### B UN, CBC, CREAT, PP, LYTES, LIPID #### [facility] [address] CO2 [Moles/Vol] 28.8 mmol/L Normal 21.0-31.0 [facility] Comment on above: Performed By: #### B UN, CBC, CREAT, PP, LYTES, LIPID #### [facility] [address] [place] [address] [place] Potassium [Moles/Vol] 4.3 mmol/L Normal 3.5-5.[address] [facility] Comment on above: Performed By: #### B UN, CBC, CREAT, PP, LYTES, LIPID #### [facility] [address] [place] [id number] [facility] Sodium [Moles/Vol] 138 mmol/L Normal 136-145 [facility] Comment on above: Performed By: #### B UN, CBC, CREAT, PP, LYTES, LIPID #### [facility] [address] Eosinophils Auto (Bld) [#/Vo l]Ordered By: Patrizia Melendrez on 03-20-2023 Eosinophils (Bld) [#/Vol] 0.3 10*3/uL 0.0-0.45 [facility] Eosinophils/100 WBC Auto (Bl d)Ordered By: Patrizia Melendrez on 03-20-2023 Eosinophils/100 WBC (Bld) 4.1 % . [facility] Erythrocyte distribution wid th Auto (RBC) [Ratio]Ordered By: Patrizia Melendrez on 03-20-2023 Erythrocyte distribution width (RBC) [Ratio] 14.4 % 11.9-15.3 [facility] Hematocrit Auto (Bld) [Volum e fraction]Ordered By: Patrizia Melendrez on 03-20-2023 Hematocrit (Bld) [Volume fraction] 47.2 % 34.0-46.4 [facility] Hemoglobin [Mass/volume] in BloodOrdered By: Patrizia Melendrez on 03-20-2023 Hemoglobin (Bld) [Mass/Vol] 16.0 g/dL 11.8-15.4 [facility] INR in Platelet poor plasma by Coagulation assayOrdered By: Patrizia Melendrez on 03-20-2023 INR Coag (PPP) [Relative time] 0.9 {INR} [facility] Comment on above: INR Therapeutic Rang e [...] (Bld) [#/Vol] 7.3 10*3/uL 3.8-11.6 [facility] Lipid Panelon 03-20-2023 Cholesterol [Mass/Vol] 270 mg/dL High 140-200 [facility] Comment on above: Result Comment: Chol less than 200 mg/dl low risk Chol 201-239 mg/dl borderline risk Chol 240 mg/dl and greater high risk Performed By: #### B UN, CBC, CREAT, PP, LYTES, LIPID #### [facility] [address] Cholesterol in HDL [Mass/Vol] 45 mg/dL Normal 23-92 [facility] Comment on above: Result Comment: HDL CHOL ATP-III CLASSIFICATION Cardiovascular Risk HDL > or equal to 60 mg/dL LOW HDL < 40 mg/dL HIGH Performed By: #### B UN, CBC, CREAT, PP, LYTES, LIPID #### [facility] [address] Cholesterol.total/Chol esterol in HDL [Mass ratio] 6.0 {ratio} Normal <5.0 [facility] Comment on above: Result Comment: PERF ORMED BY: [place] [address] PATHOLOGIST [employer] KEVYN DAVIDSON M.D. Performed By: #### B UN, CBC, CREAT, PP, LYTES, LIPID #### [facility] [address] LDL Cholesterol,Calculated 170 mg/dL High 0-100 [facility] Comment on above: Result Comment: LDL ATP III CLASSIFICATION LDL less than 100 mg/dL Optimal LDL 100-129 mg/dL Near or above optimal LDL 130-159 mg/dL Borderline high LDL 160-189 mg/dL High LDL greater than 189 mg/dL Very high Performed By: #### B UN, CBC, CREAT, PP, LYTES, LIPID #### [facility] [address] [place] [address] [place] Triglyceride w/Reflex 277 mg/dL High 0-[address] [facility] Comment on above: Result Comment: TRIG ATP III CLASSIFICATION TRIG less than 150 mg/dL Normal TRIG 150-199 mg/dL Borderline high TRIG 200-500 mg/dL High TRIG greater than 500 mg/dL Very high Standard traceable to the Center for Disease Conrtrol and Prevention (CDC) test method. Performed By: #### B UN, CBC, CREAT, PP, LYTES, LIPID #### [facility] [address] VLDL CHOLESTEROL 55 mg/dL Normal [facility] Comment on above: Performed By: #### B UN, CBC, CREAT, PP, LYTES, LIPID #### [facility] [address] Lymphocytes Auto (Bld) [#/Vo l]Ordered By: Patrizia Melendrez on 03-20-2023 Lymphocytes (Bld) [#/Vol] 2.5 10*3/uL 1.00-4.8 [facility] Lymphocytes/100 WBC Auto (Bl d)Ordered By: Patrizia Melendrez on 03-20-2023 Lymphocytes/100 WBC (Bld) 34.2 % . [facility] MCH Auto (RBC) [Entitic mass ]Ordered By: Patrizia Melendrez on 03-20-2023 MCH (RBC) [Entitic mass] 30.5 pg 24.7-34.3 [facility] MCHC Auto (RBC) [Mass/Vol]Or dered By: Patrizia Melendrez on 03-20-2023 MCHC (RBC) [Mass/Vol] 33.9 g/dL 32.0-35.[address] [facility] MCV Auto (RBC) [Entitic vol] Ordered By: Patrizia Melendrez on 03-20-2023 MCV (RBC) [Entitic vol] 89.9 fL 80-100 [facility] Monocytes Auto (Bld) [#/Vol] Ordered By: Patrizia Melendrez on 03-20-2023 Monocytes (Bld) [#/Vol] 0.6 10*3/uL 0.0-0.8 [facility] Monocytes/100 WBC Auto (Bld) Ordered By: Patrizia Melendrez on 03-20-2023 Monocytes/100 WBC (Bld) 8.4 % . [facility] Neutrophils Auto (Bld) [#/Vo l]Ordered By: Patrizia Melendrez on 03-20-2023 Neutrophils (Bld) [#/Vol] 3.8 10*3/uL 1.8-7.7 [facility] Neutrophils/100 WBC Auto (Bl d)Ordered By: Patrizia Melendrez on 03-20-2023 Neutrophils/100 WBC (Bld) 52.9 % . [facility] No Panel InformationOrdered By: Patrizia Melendrez on 03-20-2023 Estimated GFR (CKD-EPI) > 60.0 mL/Min [facility] Creatinine Clearance (Chem N/A [facility] Nucleated erythrocytes [Pres ence] in Blood by Automated countOrdered By: Patrizia Melendrez on 03-20-2023 Nucleated RBC Auto Ql (Bld) 0.1 /100{WBC} 0-0.5 [facility] Platelet mean volume Auto (B ld) [Entitic vol]Ordered By: Patrizia Melendrez on 03-20-2023 Platelet mean volume (Bld) [Entitic vol] 8.0 fL 6.3-10.7 [facility] Platelets Auto (Bld) [#/Vol] Ordered By: Patrizia Melendrez on 03-20-2023 Platelets (Bld) [#/Vol] 232 10*3/uL 150-450 [facility] Potassium [Moles/volume] in Serum or PlasmaOrdered By: Patrizia Melendrez on 03-20-2023 Potassium [Moles/Vol] 4.3 mmol/L 3.5-5.[address] [facility] Prothrombin time (PT)Ordered By: Patrizia Melendrez on 03-20-2023 PT Coag (PPP) [Time] 11.2 s 9.0-12.9 [facility] Comment on above: A hematocrit value g reater than 55% may lead to inaccurate results in coagulation testing. Patients having hematocrit values >55% require a special collection tube for coagulation studies. Please contact the laboratory at [phone] for redraw instructions. RBC Auto (Bld) [#/Vol]Ordere d By: Patrizia Melendrez on 03-20-2023 RBC (Bld) [#/Vol] 5.25 10*6/uL 3.60-5.00 [facility] Serum or plasma anion gap de terminationOrdered By: Patrizia Melendrez on 03-20-2023 Anion gap [Moles/Vol] 8.5 mmol/L 6.0-15.[address] [facility] Serum or plasma high density lipoprotein (HDL) cholesterol measurementOrdered By: Patrizia Melendrez on 03-20-2023 Cholesterol in HDL [Mass/Vol] 45 mg/dL [facility] Comment on above: HDL CHOL ATP-III CLA SSIFICATION Cardiovascular RiskHDL > or equal to 60 mg/dL LOWHDL < 40 mg/dL HIGH Serum or plasma total choles terol/high density lipoprotein (HDL) cholesterol mass ratOrdered By: Patrizia Melendrez on 03-20-2023 Cholesterol.total/Chol esterol in HDL [Mass ratio] 6.0 {ratio} <5.0 [facility] Sodium [Moles/volume] in Ser um or PlasmaOrdered By: Patrizia Melendrez on 03-20-2023 Sodium [Moles/Vol] 138 mmol/L 136-145 [facility] Triglyceride [Mass/volume] i n Serum or PlasmaOrdered By: Patrizia Melendrez on 03-20-2023 Triglyceride [Mass/Vol] 277 mg/dL 0-149 [facility] Comment on above: TRIG ATP III CLASSIF ICATIONTRIG less than 150 mg/dL NormalTRIG 150-199 mg/dL Borderline highTRIG 200-500 mg/dL High TRIG greater than 500 mg/dL Very highStandard traceable to the Center for Disease Conrtrol and Prevention (CDC) test method. Urea nitrogen [Mass/volume] in Serum or PlasmaOrdered By: Patrizia Melendrez on 03-20-2023 Urea nitrogen [Mass/Vol] 21 mg/dL 01-15 [facility] WBC Auto (Bld) [#/Vol]Ordere d By: Patrizia Melendrez on 03-20-2023 WBC (Bld) [#/Vol] 7.3 10*3/uL 3.8-11.6 [facility] CREATININEon 10-01-2022 Creatinine [Mass/Vol] 0.73 mg/dL Normal 0.55-1.02 [facility] Comment on above: Performed By: #### C PRISCILLA ####[facility] [id number] [place], [place] [address]Jp. Gonzalo Willis EGFR-AF [place] ISLANDER >60 Normal >=60 [facility] Comment on above: Performed By: #### C PRISCILLA ####[facility] Ewjpkinunn4026 [place], [place] [address]Ho. Gonzalo Willis EGFR-NON AF [place] ISLANDER >60 Normal >=60 [facility] Comment on above: Performed By: #### C PRISCILLA ####[facility] Zeicvjpcar[address] [place] [id number]. Gonzalo Willis CT NECK ST WO W [...] by: SHAWN GRAFF Date: 2022-09-04 16:52 Normal [facility] US CAROTID ART BILon 023 US [...] NISA EDWARDS Date: 2022-08-22 17:29 Normal [facility] Office Visit (Cardiology)on 07-19-2022 Follow-up visit [...] no s (more content not included)... Normal [facility] Tobacco Screening.on 023 Adult depression screening assessment No [facility] Nebo DO Work Phone: Fall risk assessment a) No falls within the last year [facility] Ebook Glue 250 DO Work Phone: Tobacco use status CPHS b) No [facility] [employer] 250 DO Work Phone: ECHOCARDIO M/2D COMPLETEon 1 07-29-2021 ECHOCARDIO M/2D COMPLETE Patient: ELIZABETH QUEZADA Exam Date: 05/28/2022 : 1960 Gender:F Ordering : DR NANO NGUYEN . Admission #: [id number] Family : Order #: [id number] CLICK HERE TO VIEW EXAM ECHOCARDIOGRAM REPORT [...] Kamara M.D. on 05/30/2022 at 11:06 Normal [facility] MAMM SCREEN 3D LOVE CADon 05-25-2022 MG MAMM SCREEN 3D LOVE CAD Patient: ELIZABETH QUEZADA Exam Date: 05/25/2022 : 1960 Gender:F Ordering : DR NANO NGUYEN . Admission #: [id number] Family : Order #: [id number] CLICK HERE TO VIEW EXAM RADIOLOGY REPORT PROCEDURE: MAMMOGRAM SCREENING 3D BILATERAL CAD COMPARISON: MAMM SCREEN LOVE W CAD, 03/28/2020. MAMM SCREEN 3D LOVE CAD, 03/29/2021. INDICATIONS: Screening mammography Calculator Name NCI Breast Cancer Risk Assessment Tool 5 Year Breast Cancer Risk 2.10% Lifetime Breast Cancer Risk 8.40% Personal Breast Cancer No Personal Ovarian Cancer No Treatments None Family Cancers Aunt-maternal with breast cancer at age 60; Brother with lung cancer at age 58; Brother with lung cancer at age 60. LOCATION: [facility] BREAST COMPOSITION: Almost entirely fatty. FINDINGS: [...] Edwards MD on 05/25/2022 at 09:51 Normal [facility] NM STRESS/REST MULTIon 05-22 NM STRESS/REST MULTI Patient: EMILY QUEZADA Exam Date: 05/22/2022 : 1960 Gender:F Ordering : DR NANO NGUYEN . Admission #: [id number] Family : Order #: [id number] CLICK HERE TO VIEW EXAM RADIOLOGY REPORT [...] NISA EDWARDS Date: 2022-05-11 15:25 Normal [facility] CBC AUTO DIFFon 05-10-2022 BASO # 0.0 103/ul Normal 0.0-0.1 [facility] Comment on above: Performed By: #### C BC ####[facility] [address] [place], [place] [address]Dr. Gonzalo Willis Basophils/100 WBC (Bld) 0.5 % Normal 0.2-2.0 [facility] Comment on above: Performed By: #### C BC ####[facility] F[address]agvqgqm[address] [place] [address]Dr. Gonzalo Willis EO # 0.2 103/ul Normal 0.0-0.7 [facility] Comment on above: Performed By: #### C BC ####[facility] Cx[address]ahdf[address] [place], [place] [address]Dr. Gonzalo Willis Eosinophils/100 WBC (Bld) 1.8 % Normal 0.9-7.0 [facility] Comment on above: Performed By: #### C BC ####[facility] Ifcgbwtkgh7[address] [place] [address]Dr. Gonzalo Willis Erythrocyte distribution width (RBC) [Ratio] 12.4 % Normal 11.0-15.0 [facility] Comment on above: Performed By: #### C BC ####[facility] Y[address] [place], [place] [address]Dr. Gonzalo Willis Hematocrit (Bld) [Volume fraction] 53.7 % Critically high 36.0-48.0 [facility] Comment on above: Performed By: #### C BC ####[facility] Gjref[address] [place], [place] [address]Dr. Gonzalo Willis Hemoglobin (Bld) [Mass/Vol] 18.4 g/dL Critically high 12.0-16.0 [facility] Comment on above: Performed By: #### C BC ####[facility] Vtvnpds[address] [place], [place] [address]Dr. Gonzalo Willis IG # 0.04 10e3/ul Critically high 0.00-0.03 [facility] Comment on above: Performed By: #### C BC ####[facility] Fe[address] [place], [place] [address]Dr. Gonzalo Willis IG % 0.5 % Normal 0.0-0.5 [facility] Comment on above: Performed By: #### C BC ####[facility] Fpvumuacja[address] [place], [place] [address]Dr. Gonzalo Willis LYMPH # 2.5 103/ul Normal 1.2-3.8 [facility] Comment on above: Performed By: #### C BC ####[facility] Ezv[address]ykl[address] [place], [place] [address]Dr. Gonzalo Willis Lymphocytes/100 WBC (Bld) 29.2 % Normal 20.5-60.0 [facility] Comment on above: Performed By: #### C BC ####[facility] [address] [place], [place] [address]Dr. Gonzalo Willis MANUAL DIFF REQ NO Normal [facility] Comment on above: Performed By: #### C BC ####[facility] [address]rt[address]eq[address] [place] [id number]. Gonzalo Willis MCH (RBC) [Entitic mass] 31.2 pg Normal 26.7-34.0 [facility] Comment on above: Performed By: #### C BC ####[facility] Mnsekldqfg4[address] [place] [id number]. Gonzalo Willis MCHC (RBC) [Mass/Vol] 34.3 g/dL Normal 29.9-35.2 [facility] Comment on above: Performed By: #### C BC ####[facility] Zofxfvxcwp3695 [place] [id number]. Gonzalo Willis MCV (RBC) [Entitic vol] 91.0 fL Normal 81.0-99.0 [facility] Comment on above: Performed By: #### C BC ####[facility] Tymalezhpe[address] [place], [place] [address]Dr. Gonzalo Lazaro MONO # 0.6 103/ul Normal 0.3-0.8 [facility] Comment on above: Performed By: #### C BC ####[facility] Hintjeefss[address] [place], [place] [address]Dr. hCantellkaleb Willis Monocytes/100 WBC (Bld) 7.2 % Normal 1.7-12.0 [facility] Comment on above: Performed By: #### C BC ####[facility] Nokuam[address] [place], [place] [address]Dr. Gonzalo Willis NEUT # 5.3 103/ul Normal 1.4-6.5 [facility] Comment on above: Performed By: #### C BC ####[facility] [address] [place], [place] [address]Dr. Chantellkaleb Willis Neutrophils/100 WBC (Bld) 60.8 % Normal 43.0-75.0 [facility] Comment on above: Performed By: #### C BC ####[facility] [address] [place], [place] [id number]. Gonzalo Willis Platelet mean volume (Bld) [Entitic vol] 9.5 fL Normal 9.5-13.5 [facility] Comment on above: Performed By: #### C BC ####[facility] Ojzfckkvjd[address] [place] [id number]. Gonzalo Willis PLT 265 103/ul Normal 150-450 [facility] Comment on above: Performed By: #### C BC ####[facility] Avymylcamd1538 [place], [place] [address]Jd. Gonzalo Willis RBC 5.90 106/ul Critically high 4.20-5.40 [facility] Comment on above: Performed By: #### C BC ####[facility] Dxtlbw[address]me[address] [place] [id number]. Gonzalo Willis WBC 8.7 103/ul Normal 4.0-11.0 [facility] Comment on above: Performed By: #### C BC ####[facility] Ihngwkhily[address] [place] [id number]. Gonzalo Willis FREE THYROXINE INDEX T7on FTI 2.74 Normal 1.30-4.50 [facility] Comment on above: Performed By: #### T 7, TSH, CMP, LIPID ####[facility] Z[address]okaiap[address] [place] [id number]. Gonzalo Willis T3U 33.0 % Normal 30.0-39.0 [facility] Comment on above: Performed By: #### T 7, TSH, CMP, LIPID ####[facility] [address]uc[address] [place] [id number]. Gonzalo Willis T4 [Mass/Vol] 8.30 ug/dL Normal 4.80-13.90 [facility] Comment on above: Performed By: #### T 7, TSH, CMP, LIPID ####[facility] [address]usv[address] [place] [id number]. Gonzalo Willis GLYCOHEMOGLOBIN A1Con 2021 ADA RECOMMENDATION SEE BELOW Normal [facility] Comment on above: Result Comment: ADA RECOMMENDED LIMIT 4.0 - 6.0 ADA THERAPEUTIC TARGET < 7.0 ACTION SUGGESTED > 7.0 Performed By: #### A 1C ####[facility] [address] [place], [place] [address]Dr. Gonzalo Willis Glucose [Mass/Vol] 192 mg/dL Normal [facility] Comment on above: Performed By: #### A 1C ####[facility] Sflwwcekit[address] [place] [id number]. Gonzalo Willis HbA1c (Bld) [Mass fraction] 8.3 % Critically high 4.5-6.2 [facility] Comment on above: Performed By: #### A 1C ####[facility] Xuwqjdinwo[address] [place] [id number]. Gonzalo Willis IRONon 05-10-2022 Iron [Mass/Vol] 193.0 ug/dL Critically high 50.0-170.0 [facility] Comment on above: Performed By: #### I MATTHEW MONTELONGO, VITB12 ####[facility] [address] [place] [address]Dr. Gonzalo Willis LIPID PROFILEon 05-10-2022 CHOL-HDL RATIO NORM SEE BELOW Normal [facility] Comment on above: Result Comment: 3.3 - 4.4 LOW RISK 4.4 - 7.1 AVERAGE RISK 7.1 - 11.0 MODERATE RISK >11.0 HIGH RISK Performed By: #### T 7, TSH, CMP, LIPID #### [facility] [address] [place] [address] [address] Gonzalo Willis Cholesterol [Mass/Vol] 262 mg/dL Critically high <=200 [facility] Comment on above: Performed By: #### T 7, TSH, CMP, LIPID #### [facility] [address] [place] [address] [address] Gonzalo Willis Cholesterol in HDL [Mass/Vol] 57 mg/dL Normal 40-60 [facility] Comment on above: Performed By: #### T 7, TSH, CMP, LIPID #### [facility] [address] [place] [id number] [address] Gonzalo Willis Cholesterol in LDL [Mass/Vol] 177.4 mg/dL Normal [facility] Comment on above: Performed By: #### T 7, TSH, CMP, LIPID #### [facility] [id number] [address] Gonzalo Willis Cholesterol.total/Chol esterol in HDL [Mass ratio] 4.6 {ratio} Normal [facility] Comment on above: Performed By: #### T 7, TSH, CMP, LIPID #### [facility] [address] [place] [address] [address] Gonzalo Willis HDL NORMAL > or = 60 mg/dl - LO W CARDIOVASCULAR RISK <40 mg/dl - HIGH CARDIOVASCULAR RISK Normal [facility] Comment on above: Performed By: #### T 7, TSH, CMP, LIPID #### [facility] [address] [place] [address] Dr. Gonzalo Willis LDL CALC NORMAL SEE BELOW Normal [facility] Comment on above: Result Comment: <100 mg/dl OPTIMAL 100 - 129 mg/dl NEAR OR ABOVE OPTIMAL 130 - 159 mg/dl BORDERLINE HIGH 160 - 189 mg/dl HIGH >190 mg/dl VERY HIGH Performed By: #### T 7, TSH, CMP, LIPID #### [facility] [address] [place] [address] Dr. Gonzalo Willis Triglyceride [Mass/Vol] 138 mg/dL Normal <=150 [facility] Comment on above: Performed By: #### T 7, TSH, CMP, LIPID #### [facility] [address] [place] [address] Dr. Gonzalo Willis VLDL CALC 27.6 mg/dL Normal [facility] Comment on above: Performed By: #### T 7, TSH, CMP, LIPID #### [facility] [address] [place] [address] Dr. Gonzalo Willis PROF 14(COMP METB)on 022 Albumin [Mass/Vol] 4.3 g/dL Normal 3.4-5.0 [facility] Comment on above: Performed By: #### T 7, TSH, CMP, LIPID #### [facility] [address] [place] [address] Dr. Gonzalo Willis Albumin/Globulin [Mass ratio] 1.0 {ratio} Normal [facility] Comment on above: Performed By: #### T 7, TSH, CMP, LIPID #### [facility] [address] [place] [address] Dr. Gonzalo Willis ALP [Catalytic activity/Vol] 86 U/L Normal 46-116 [facility] Comment on above: Performed By: #### T 7, TSH, CMP, LIPID #### [facility] [address] [place] [address] [address] Gonzalo Willis ALT [Catalytic activity/Vol] 20 U/L Normal 14-59 [facility] Comment on above: Performed By: #### T 7, TSH, CMP, LIPID #### [facility] [address] [place] [address] [address] Gonzalo Willis Anion gap [Moles/Vol] 11.2 mmol/L Normal [facility] e [facility] Comment on above: Performed By: #### T 7, TSH, CMP, LIPID #### [facility] [address] [place] [address] Dr. Gonzalo Willis AST [Catalytic activity/Vol] 9 U/L Critically low 15-37 [facility] Comment on above: Performed By: #### T 7, TSH, CMP, LIPID #### [facility] [address] [place] [address] Dr. Gonzalo Willis Bilirubin [Mass/Vol] 0.6 mg/dL Normal 0.2-1.0 [facility] Comment on above: Performed By: #### T 7, TSH, CMP, LIPID #### [facility] [address] [place] [address] Dr. Gonzalo Willis Calcium [Mass/Vol] 10.1 mg/dL Normal 8.5-10.1 [facility] Comment on above: Performed By: #### T 7, TSH, CMP, LIPID #### [facility] [address] [place] [address] Dr. Gonzalo Willis Chloride [Moles/Vol] 98 mmol/L Normal 98-107 [facility] Comment on above: Performed By: #### T 7, TSH, CMP, LIPID #### [facility] [address] [place] [address] Dr. Gonzalo Willis CO2 [Moles/Vol] 28.4 mmol/L Normal 21.0-32.0 [facility] Comment on above: Performed By: #### T 7, TSH, CMP, LIPID #### [facility] [address] [place] [address] [address] Gonzalo Willis Creatinine [Mass/Vol] 0.72 mg/dL Normal 0.55-1.02 [facility] Comment on above: Performed By: #### T 7, TSH, CMP, LIPID #### [facility] [address] [place] [address] [address] Gonzalo Willis EGFR-AF [place] ISLANDER >60 Normal >=60 [facility] Comment on above: Performed By: #### T 7, TSH, CMP, LIPID #### [facility] [address] [place] [address] [address] Gonzalo Willis EGFR-NON AF [place] ISLANDER >60 Normal >=60 [facility] Comment on above: Performed By: #### T 7, TSH, CMP, LIPID #### [facility] [address] [place] [address] Dr. Gonzalo Willis Globulin (S) [Mass/Vol] 4.1 g/dL Normal [facility] Comment on above: Performed By: #### T 7, TSH, CMP, LIPID #### [facility] [address] [place] [address] [address] Gonzalo Willis Glucose [Mass/Vol] 164 mg/dL Critically high 74-106 [facility] Comment on above: Performed By: #### T 7, TSH, CMP, LIPID #### [facility] [address] [place] [address] [address] Gonzalo Willis Potassium [Moles/Vol] 4.6 mmol/L Normal 3.5-5.1 [facility] Comment on above: Performed By: #### T 7, TSH, CMP, LIPID #### [facility] [address] [place] [address] [address] Gonzalo Willis Protein [Mass/Vol] 8.4 g/dL Critically high 6.4-8.2 [facility] Comment on above: Performed By: #### T 7, TSH, CMP, LIPID #### [facility] [address] [place] [address] [address] Gonzalo Willis Sodium [Moles/Vol] 133 mmol/L Critically low 136-145 Th e [facility] Comment on above: Performed By: #### T 7, TSH, CMP, LIPID #### [facility] [address] [address] [address] Gonzalo Willis Urea nitrogen [Mass/Vol] 20.0 mg/dL Critically high 7.0-18.0 [facility] Comment on above: Performed By: #### T 7, TSH, CMP, LIPID #### [facility] [address] [place] [address] [address] Gonzalo Willis Urea nitrogen/Creatinine [Mass ratio] 27.8 mg/mg Normal [facility] Comment on above: Performed By: #### T 7, TSH, CMP, LIPID #### [facility] [address] [place] [address] [address] Gonzalo Willis TSHon 05-10-2022 TSH 0.872 uIU/mL Normal 0.358-3.740 [facility] Comment on above: Performed By: #### T 7, TSH, CMP, LIPID ####[facility] [address] [place] [address]Dr. Gonzalo Willis VITAMIN B12on 05-10-2022 Cobalamin (Vitamin B12) [Mass/Vol] 526.0 pg/mL Normal 193.0-986.0 [facility] Comment on above: Performed By: #### I REGINALD, VITAD, VITB12 ####[facility] [address] [place] [address]DrMel Willis VITAMIN D 25 OHon 05-10-2022 VIT D 25-OH 67.4 ng/mL Normal [facility] Comment on above: Performed By: #### I REGINALD, VITAD, VITB12 ####[facility] [address] [place] [address]DrMel Willis VIT D RANGES SEE BELOW Normal [facility] Comment on above: Result Comment: <20 ng/mL Vit D deficient 20 - <30 ng/mL Vit D insufficient 30 - 100 ng/mL Vit D sufficient >100 ng/mL Potential Toxicity Performed By: #### I REGINALD, VITAD, VITB12 ####[facility] [address] [place], [place] [address]MfDr. Gonzalo Willis Covid-19 PCR (CVDTB)on SARS-CoV-2 (COVID-19) RNA WALKER+probe Ql (Unsp spec) Not detected Normal NOT DETECTED [facility] Comment on above: Result Comment: When [...] for this test is supported by the [place] of Health and Human Service's declaration that [...] longer be used). Performed By: #### [facility] #### [facility] [address] [place], [place] [address] Dr. Gonzalo Willis Vital Signs Date Time Vital Sign Value Performing Clinician Facility 04-28-2024 10:51-0500 Diastolic blood pressure 75 mm[Hg] Papa Santiago MD Work Phone: [facility] 04-28-2024 10:51-0500 Heart rate 84 /min Papa Santiago MD Work Phone: [facility] 04-28-2024 10:51-0500 Systolic blood pressure 135 mm[Hg] Papa Santiago MD Work Phone: [facility] 01-28-2024 12:01-0400 Diastolic blood pressure 70 mm[Hg] Papa Santiago MD Work Phone: [facility] 01-28-2024 12:01-0400 Heart rate 83 /min Papa Santiago MD Work Phone: [facility] 01-28-2024 12:01-0400 Systolic blood pressure 147 mm[Hg] Papa Santiago MD Work Phone: [facility] 01-16-2024 11:51-0400 Body height 165.1 cm Shanice Larsen MD Work Phone: [facility] 01-16-2024 11:51-0400 Body mass index (BMI) [Ratio] 28.62 kg/m2 Shanice Larsen MD Work Phone: [facility] 01-16-2024 11:51-0400 Body weight 78.02 kg Shanice Larsen MD Work Phone: [facility] 01-16-2024 11:51-0400 Diastolic blood pressure 69 mm[Hg] Shanice Larsen MD Work Phone: [facility] 01-16-2024 11:51-0400 Heart rate 88 /min Shanice Larsen MD Work Phone: [facility] 01-16-2024 11:51-0400 SaO2% (BldA) [Mass fraction] 98 % Shanice Larsen MD Work Phone: [facility] 01-16-2024 11:51-0400 Systolic blood pressure 110 mm[Hg] Shanice Larsen MD Work Phone: [facility] 10-10-2023 12:40-0400 Body height 160 cm Shanice Larsen MD Work Phone: [facility] 10-10-2023 12:40-0400 Body weight 77.11 kg Shanice Larsen MD Work Phone: [facility] 10-10-2023 12:40-0400 Diastolic blood pressure 73 mm[Hg] Shanice Larsen MD Work Phone: [facility] 10-10-2023 12:40-0400 Heart rate 90 /min Shanice Larsen MD Work Phone: [facility] 10-10-2023 12:40-0400 Respiratory rate 16 /min Shanice Larsen MD Work Phone: [facility] 10-10-2023 12:40-0400 SaO2% (BldA) [Mass fraction] 97 % Shanice Larsen MD Work Phone: [facility] 10-10-2023 12:40-0400 Systolic blood pressure 127 mm[Hg] Shanice Larsen MD Work Phone: [facility] 08-07-2023 10:40-0500 Body height 162 cm Andegoni Sandalakis DISC RULER OPERATOR.CERTIFIED SURGICAL TECH/FIRST ASSISTANT Work Phone: [facility] 08-07-2023 10:40-0500 Body temperature 98.01 [degF] Andegoni Sandalakis DISC RULER OPERATOR.CERTIFIED SURGICAL TECH/FIRST ASSISTANT Work Phone: [facility] 08-07-2023 10:40-0500 Body weight 82.64 kg Andegoni Sandalakis DISC RULER OPERATOR.CERTIFIED SURGICAL TECH/FIRST ASSISTANT Work Phone: [facility] 08-07-2023 10:40-0500 Diastolic blood pressure 70 mm[Hg] Andegoni Sandalakis DISC RULER OPERATOR.CERTIFIED SURGICAL TECH/FIRST ASSISTANT Work Phone: [facility] 08-07-2023 10:40-0500 Heart rate 82 /min Andegoni Sandalakis DISC RULER OPERATOR.CERTIFIED SURGICAL TECH/FIRST ASSISTANT Work Phone: [facility] 08-07-2023 10:40-0500 SaO2% (BldA) [Mass fraction] 97 % Andegoni Sandalakis DISC RULER OPERATOR.CERTIFIED SURGICAL TECH/FIRST ASSISTANT Work Phone: [facility] 08-07-2023 10:40-0500 Systolic blood pressure 128 mm[Hg] Andegoni Sandalakis DISC RULER OPERATOR.CERTIFIED SURGICAL TECH/FIRST ASSISTANT Work Phone: [facility] 07-30-2023 16:30-0500 SaO2% (BldA) [Mass fraction] 98 % NANO NGUYEN [facility] Comment on above: Order Comment: Specimen Type: ARTERIAL B LOOD SPECIMENOrdering Facility: [facility] Address: [address] [place] [address] Performed By: #### A LLBG ####[facility] [id number] [place] [id number] [place] 07-30-2023 13:11-0500 SaO2% (BldA) [Mass fraction] 98 % NANO HOY [facility] Comment on above: Order Comment: Specimen Type: ARTERIAL B LOOD SPECIMENOrdering Facility: [facility] Address: [address] [place], [place] [id number] Performed By: #### A LLBG ####[facility] [id number] [place] [id number] [place] 07-30-2023 10:56-0500 SaO2% (BldA) [Mass fraction] 96 % NANO HOY [facility] Comment on above: Order Comment: Specimen Type: ARTERIAL B LOOD SPECIMENOrdering Facility: [facility] Address: [address] [place] [address] Performed By: #### A LLBG ####[facility] [id number] [place] [id number] [place] 07-30-2023 08:10-0500 SaO2% (BldA) [Mass fraction] 97 % NANO HOY [facility] Comment on above: Order Comment: Specimen Type: ARTERIAL B LOOD SPECIMENOrdering Facility: [facility] Address: [address] [place], [place] [id number] Performed By: #### A LLBG ####[facility] [id number] [place] [id number] [place] 07-30-2023 06:05-0500 SaO2% (BldA) [Mass fraction] 97 % NANO HOY [facility] Comment on above: Order Comment: Specimen Type: ARTERIAL B LOOD SPECIMENOrdering Facility: [facility] Address: [address] [place] [address] Performed By: #### A LLBG ####[facility] LABCLIA [id number] [address] [address] [facility] 07-30-2023 03:36-0500 SaO2% (BldA) [Mass fraction] 98 % NANO HOY [facility] Comment on above: Order Comment: Specimen Type: ARTERIAL B LOOD SPECIMENOrdering Facility: [facility] Address: [address] [place], [place] [id number] Performed By: #### A LLBG ####[facility] LABIA [id number] [place] [id number] [facility] 07-30-2023 01:31-0500 SaO2% (BldA) [Mass fraction] 98 % NANO HOY [facility] Comment on above: Order Comment: Specimen Type: ARTERIAL B LOOD SPECIMENOrdering Facility: [facility] Address: [address] [place] [address] Performed By: #### A LLBG ####[facility] LABIA [id number] [place] [id number] [place] 07-29-2023 23:17-0500 SaO2% (BldA) [Mass fraction] 98 % NANO HOY [facility] Comment on above: Order Comment: Specimen Type: ARTERIAL B LOOD SPECIMENOrdering Facility: [facility] Address: [address] [place], [place] [id number] Performed By: #### A LLBG ####[facility] LABCLIA [id number] [address] [address] [place] 07-29-2023 21:16-0500 SaO2% (BldA) [Mass fraction] 98 % NANO HOY [facility] Comment on above: Order Comment: Specimen Type: ARTERIAL B LOOD SPECIMENOrdering Facility: [facility] Address: [address] [place], [place] [id number] Performed By: #### A LLBG ####[facility] LABIA [id number] [place] [id number] [place] 07-29-2023 19:19-0500 SaO2% (BldA) [Mass fraction] 99 % NANO HOY [facility] Comment on above: Order Comment: Specimen Type: ARTERIAL B LOOD SPECIMENOrdering Facility: [facility] Address: [address] [place], [place] [id number] Performed By: #### A LLBG ####[facility] LABIA [id number] [place] [id number] [place] 07-29-2023 16:39-0500 SaO2% (BldA) [Mass fraction] 97 % NANO HOY [facility] Comment on above: Order Comment: Specimen Type: ARTERIAL B LOOD SPECIMENOrdering Facility: [facility] Address: [address] [place] [address] Performed By: #### A LLBG ####[facility] [id number] [place] [id number] [place] [facility] 07-29-2023 14:51-0500 SaO2% (BldA) [Mass fraction] 99 % NANO HOY [facility] Comment on above: Order Comment: Specimen Type: ARTERIAL B LOOD SPECIMENOrdering Facility: [facility] Address: [address] [place], [place] [id number] Performed By: #### A LLBG ####[facility] [id number] [place] [id number] [place] 07-29-2023 13:51-0500 SaO2% (BldA) [Mass fraction] 99 % NANO HOY [facility] Comment on above: Order Comment: Specimen Type: ARTERIAL B LOOD SPECIMENOrdering Facility: [facility] Address: [address] [place], [place] [id number] Performed By: #### A LLMG ####[facility]SPR[facility] [id number] [place] [id number] [facility] 07-29-2023 13:19-0500 SaO2% (BldA) [Mass fraction] 99 % NANO HOY [facility] Comment on above: Order Comment: Specimen Type: ARTERIAL B LOOD SPECIMENOrdering Facility: [facility] Address: [address] [place], [place] [id number] Performed By: #### A LLBG ####[facility] LABCLIA [id number] [place] [id number] [place] 07-29-2023 12:23-0500 SaO2% (BldA) [Mass fraction] 100 % NANO HOY [facility] Comment on above: Order Comment: Specimen Type: ARTERIAL B LOOD SPECIMENOrdering Facility: [facility] Address: [address] [place], [place] [id number] Performed By: #### A LLBG ####[facility] LABCLIA [id number] [place] [id number] [facility] 07-29-2023 11:28-0500 SaO2% (BldA) [Mass fraction] 100 % NANO HOY [facility] Comment on above: Order Comment: Specimen Type: ARTERIAL B LOOD SPECIMENOrdering Facility: [facility] Address: [address] [place], [place] [id number] Performed By: #### A LLBG ####[facility] LABIA [id number] [place] [id number] [place] [facility] 07-29-2023 10:41-0500 SaO2% (BldA) [Mass fraction] 100 % NANO HOY [facility] Comment on above: Order Comment: Specimen Type: ARTERIAL B LOOD SPECIMENOrdering Facility: [facility] Address: [address] [place] [address] Performed By: #### A LLBG ####[facility] LABCLIA [id number] [place] [id number] [place] 07-29-2023 09:58-0500 SaO2% (BldA) [Mass fraction] 98 % NANO HOY [facility] Comment on above: Order Comment: Specimen Type: ARTERIAL B LOOD SPECIMENOrdering Facility: [facility] Address: [address] [place] [address] Performed By: #### A LLBG ####[facility] LABCLIA [id number] [place] [id number] [place] [facility] 07-29-2023 09:43-0500 SaO2% (BldA) [Mass fraction] 99 % NANO HOY [facility] Comment on above: Order Comment: Specimen Type: ARTERIAL B LOOD SPECIMENOrdering Facility: [facility] Address: [address] [place] [address] Performed By: #### A LLBG ####[facility] LABCLIA [id number] [place] [id number] [place] 07-29-2023 07:09-0500 SaO2% (BldA) [Mass fraction] 99 % NANO NGUYEN [facility] Comment on above: Order Comment: Specimen Type: ARTERIAL B LOOD SPECIMENOrdering Facility: [facility] Address: [address] [place] [address] Performed By: #### A LLBG ####[facility] LABCLIA [id number] [place] [id number] [place] 05-28-2023 13:50-0500 Body height 165.1 cm Shanice Larsen MD Work Phone: [facility] 05-28-2023 13:50-0500 Body weight 78.93 kg Shanice Larsen MD Work Phone: [facility] 05-28-2023 13:50-0500 Diastolic blood pressure 59 mm[Hg] Shanice Larsen MD Work Phone: [facility] 05-28-2023 13:50-0500 Heart rate 82 /min Shanice Larsen MD Work Phone: [facility] 05-28-2023 13:50-0500 Respiratory rate 16 /min Shanice Larsen MD Work Phone: [facility] 05-28-2023 13:50-0500 SaO2% (BldA) [Mass fraction] 97 % Shanice Larsen MD Work Phone: [facility] 05-28-2023 13:50-0500 Systolic blood pressure 109 mm[Hg] Shanice Larsen MD Work Phone: [facility] 04-03-2023 09:16-0400 Diastolic blood pressure 116 mm[Hg] Shanice Larsen MD Work Phone: [facility] 04-03-2023 09:16-0400 Heart rate 101 /min Shanice Larsen MD Work Phone: [facility] 04-03-2023 09:16-0400 Systolic blood pressure 200 mm[Hg] Shanice Larsen MD Work Phone: [facility] 03-26-2023 17:15-0400 Diastolic blood pressure 64 mm[Hg] MD Nano Nguyen Work Phone: [facility] 03-26-2023 17:15-0400 Heart rate 69 /min MD Nano Nguyen Work Phone: [facility] 03-26-2023 17:15-0400 Respiratory rate 20 /min MD Nano Nguyen Work Phone: [facility] 03-26-2023 17:15-0400 SaO2% (BldA) [Mass fraction] 99 % MD Nano Nguyen Work Phone: [facility] 03-26-2023 17:15-0400 Systolic blood pressure 143 mm[Hg] MD Nano Nguyen Work Phone: [facility] 03-26-2023 13:02-0400 Body height 165.1 cm MD Nano Nguyen Work Phone: [facility] 03-26-2023 13:02-0400 Body temperature 97.7 [degF] MD Nano Nguyen Work Phone: [facility] 03-26-2023 13:02-0400 Body weight 84.5 kg MD Nano Nguyen Work Phone: [facility] 03-20-2023 13:00-0400 Body height 165.1 cm Patrizia Arevalooroge Other [facility] [employer] Other 03-20-2023 13:00-0400 Body mass index (BMI) [Ratio] 31.31 kg/m2 Patrizia Parvin Other [employer] Other 03-20-2023 13:00-0400 Body weight 85.37 kg Patrizia Arevalooroge Other [employer] Other 03-20-2023 13:00-0400 Diastolic blood pressure 82 mm[Hg] Patrizia Arevalooroge Other [employer] Other 03-20-2023 13:00-0400 SaO2% (BldA) [Mass fraction] 94 % Patrizia Parvin Other [employer] Other 03-20-2023 13:00-0400 Systolic blood pressure 124 mm[Hg] Patrizia Arevalooroge Other [employer] Other 07-19-2022 13:16-0500 Body height 165.1 cm Nano M Hoy Work Phone: [facility] 250 DO Work Phone: 07-19-2022 13:16-0500 Body mass index (BMI) [Ratio] 31.95 kg/m2 Nano M Hoy Work Phone: [facility] 250 DO Work Phone: 07-19-2022 13:16-0500 Body surface area Derived from formula 1.94 m2 Nano M Hoy Work Phone: [facility] 250 DO Work Phone: 07-19-2022 13:16-0500 Body weight 87.09 kg Nano M Hoy Work Phone: [facility] 250 DO Work Phone: 07-19-2022 13:16-0500 Diastolic blood pressure 64 mm[Hg] Nano M Hoy Work Phone: [facility] 250 DO Work Phone: 07-19-2022 13:16-0500 Diastolic blood pressure 70 mm[Hg] Nano M Hoy Work Phone: [facility] 250 DO Work Phone: 07-19-2022 13:16-0500 Heart rate 85 /min Nano M Hoy Work Phone: [facility] 250 DO Work Phone: 07-19-2022 13:16-0500 Systolic blood pressure 110 mm[Hg] Nano M Hoy Work Phone: [facility] 250 DO Work Phone: 07-19-2022 13:16-0500 Systolic blood pressure 100 mm[Hg] Nano M Hoy Work Phone: [facility] 250 DO Work Phone: Encounters Encounter Date Encounter Type Care Provider Facility Start: 04-28-2024 End: 04-28-2024 Office outpatient visit 25 minutes Papa Santiago MD Work Phone: Vascular Surg Dept Comment on above: 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) (Primary Dx) Start: 04-28-2024 End: 04-28-2024 Orders Only Papa Santiago MD Work Phone: Vascular Surg Dept Comment on above: Peripheral vascular disease (HCC) (Primary Dx); Diminished pulses in lower extremity; PAD (peripheral artery disease) (HCC) Start: 04-07-2024 End: 04-07-2024 ambulatory Shanice Larsen MD Work Phone: Cardiology Comment on above: 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); Coronary artery disease of [place] artery of [place] heart with stable angina pectoris (HCC) Start: [...] above: Results Start: 02-18-2024 End: 02-18-2024 ambulatory [facility] Start: 02-18-2024 End: 02-18-2024 Subsequent hospital visit by physician Ct 2 Main Qb (I-Stat) Radiology Comment on above: Coronary artery dise ase of [place] artery of [place] heart with stable angina pectoris (HCC) [I25.118] [...] (Primary Dx) Start: 01-28-2024 End: 01-28-2024 ambulatory [facility] Facility[facility] Start: 01-16-2024 End: 01-16-2024 Patient encounter procedure Shanice Larsen MD Work Phone: Cardiology Comment on above: Coronary artery dise ase of [place] artery of [place] heart with stable angina pectoris (HCC) (Primary Dx); PAD (peripheral artery disease) (HCC); Primary hypertension; Hyperlipidemia, unspecified hyperlipidemia type Start: 01-16-2024 End: 01-16-2024 ambulatory NANO NGUYEN Facility:[facility] Start: 01-03-2024 Orders Only Papa Santiago MD Work Phone: Vascular Surg Dept Comment on above: 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, bilateral legs (HCC) (Primary Dx) Start: 01-01-2024 Telephone encounter Nano Nguyen MD Work Phone: [address] [place] [address] Comment on above: Appointment Start: 12-30-2023 End: [...] Telephone encounter Shanta comer RN Work Phone: [facility] Home Delivery Comment on above: Insurance Authorizat ion ([employer] 140MG/ML auto-injectors/) Start: 10-17-2023 Telephone encounter Shanice Hallman MD Work Phone: Cardiology Comment on above: Received Outside Med ical Records (EDGAR ECHO REPORT) Received Outside Med ical Records (CD IMAGES [facility]) Start: 10-10-2023 End: 10-10-2023 Patient encounter procedure Shanice Larsen MD Work Phone: Cardiology Comment on above: Coronary artery dise ase of [place] artery of [place] heart with stable angina pectoris (HCC) (Primary Dx); SOB (shortness of breath); PAD (peripheral artery disease) (HCC); TIA (transient ischemic attack) Start: 10-10-2023 End: 10-10-2023 ambulatory NANO NGUYEN Facility:[facility] Start: 10-10-2023 End: 10-10-2023 Subsequent hospital visit by physician Ct 2 Main Qb (I-Stat) Radiology Comment on above: Lung nodule [R91.1] Start: 09-27-2023 ambulatory [facility] Start: 09-26-2023 End: 09-28-2023 Emergency department patient visit [facility] Start: 09-23-2023 Telephone encounter Papa Perez i, MD Work Phone: Vascular Surg Dept Comment on above: dental clearance Start: 09-12-2023 E-mail encounter jose titus caregiver Daljit Pina DISC RULER OPERATOR.CERTIFIED SURGICAL TECH/FIRST ASSISTANT Work Phone: [facility] Start: 09-12-2023 Follow-up encounter Daljit Whitney er DISC RULER OPERATOR.CERTIFIED SURGICAL TECH/FIRST ASSISTANT Work Phone: Radiology Comment on above: Actionable Findings Follow-up Start: 09-03-2023 ambulatory Anna Perea RN [facility] Comment on above: Coronary artery dise ase involving [place] coronary artery of [place] heart without angina pectoris (Primary Dx) Start: 08-23-2023 Telephone encounter Nano Nguyen MD Work Phone: NOC Comment on above: Appointment Start: 08-13-2023 E-mail encounter jose titus caregiver Daljit Pina DISC RULER OPERATOR.CERTIFIED SURGICAL TECH/FIRST ASSISTANT Work Phone: [facility] Start: 08-13-2023 Follow-up encounter Daljit Reit er DISC RULER OPERATOR.CERTIFIED SURGICAL TECH/FIRST ASSISTANT Work Phone: Radiology Comment on above: Actionable Findings Follow-up Start: 08-08-2023 Telephone encounter Moriah Muniz [facility] Comment on above: Follow Up Phone Call (RC follow up call all clear. /) Start: 08-07-2023 End: 08-07-2023 Patient encounter procedure Dania Cruz DISC RULER OPERATOR.CERTIFIED SURGICAL TECH/FIRST ASSISTANT Work Phone: Cardiothoracic Comment on above: S/P CABG (coronary a rtery bypass graft) (Primary Dx); PVD (peripheral vascular disease) (HCC) Start: 08-07-2023 End: 08-07-2023 ambulatory NANO NGUYEN Facility:[facility] Start: 08-07-2023 End: 08-07-2023 Subsequent hospital visit [...] 08-02-2023 Evaluation and management of inpatient NANO NGUYEN Facility:[facility] Start: 07-22-2023 Patient encounter status Alma Rosa Suarez MD Work Phone: [facility] Start: 07-17-2023 End: 07-17-2023 ambulatory NANO NGUYEN Facility:[facility] Start: 07-17-2023 End: 07-17-2023 ambulatory WILLEM SUAREZ Facility:[facility] Start: 07-08-2023 End: 07-08-2023 ambulatory GLORIA CALLAHAN Facility:[facility] Start: 07-02-2023 End: 07-02-2023 ambulatory FRANTZ PEREZ Facility:[facility] Start: 07-02-2023 End: 07-02-2023 ambulatory WILLEM SUAREZ Facility:[facility] Start: 07-02-2023 End: 07-02-2023 ambulatory PAPA SANTIAGO Facility:[facility] Start: 06-14-2023 End: 06-14-2023 ambulatory WILLEM SUAREZ Facility:[facility] Start: 05-30-2023 Telephone encounter Willem marrufo MD Work Phone: Cardiothoracic Comment on above: Insurance Authorizat ion Referral Information ; New Patient Evaluation Start: 05-28-2023 End: 05-28-2023 ambulatory SHANICE LARSEN Facility[facility] Start: 05-28-2023 End: 05-28-2023 Patient encounter procedure Shanice Larsen MD Work Phone: Cardiology Comment on above: SOB (shortness of br eath) (Primary Dx); Coronary artery disease involving [place] coronary artery of [place] heart without angina pectoris; PAD (peripheral artery disease) (HCC) Start: 05-28-2023 End: 05-28-2023 ambulatory SHANICE LARSEN Facility[facility] Start: 05-13-2023 End: 05-13-2023 ambulatory Shanice Larsen MD Work Phone: Cardiology Comment on above: Coronary artery dise ase involving [place] coronary artery of [place] heart without angina pectoris (Primary Dx); Preop cardiovascular exam; Morbid obesity (HCC) Start: 05-13-2023 End: 05-13-2023 Patient encounter status Shanice Larsen MD Work Phone: [facility] Work Phone: Start: 05-13-2023 End: 05-13-2023 Telemedicine consultation with patient Shanice Larsen MD Work Phone: [facility] Start: 04-26-2023 Orders Only Shanice Hinton i, MD Work Phone: Cardiology Comment on above: Coronary artery dise ase involving [place] coronary artery without angina pectoris, unspecified whether [place] or transplanted heart (Primary Dx) Start: 04-08-2023 Orders Only Pamela Laws APRN.CNP Work Phone: Cardiology Comment on above: Abnormal stress test (Primary Dx) Start: 04-03-2023 End: 04-03-2023 Patient encounter procedure Shanice Larsen MD Work Phone: Cardiology Comment on above: Abnormal stress test (Primary Dx) Start: 03-26-2023 End: 03-26-2023 ambulatory Patrizia Melendrez Facility:[facility] Start: 03-26-2023 Telephone encounter Patrizia HOFF G Cardiology Start: 03-26-2023 End: 03-26-2023 Admission to same day surgery center MD Nano Nguyen Work Phone: [facility] Work Phone: Start: 03-26-2023 End: 03-26-2023 ambulatory MD Nano Nguyen Work Phone: [facility] Work Phone: Start: 03-25-2023 End: 03-25-2023 ambulatory Patrizia Melendrez Other [employer] Other Start: 03-25-2023 Telephone encounter Patrizia HOFF G Cardiology Start: 03-20-2023 End: 03-20-2023 ambulatory Patrizia Melendrez Facility:[facility] Start: 03-20-2023 End: 03-20-2023 Patient encounter procedure MD Nano Nguyen Work Phone: [facility]-Pre-Surgical Testing Work Phone: Start: 03-20-2023 End: 03-20-2023 ambulatory MD Nano Nguyen Work Phone: [facility] Work Phone: Start: 03-20-2023 Office outpatient ne w 45 minutes Patrizia Melendrez [facility] Start: 03-13-2023 Message Nano Nguyen Work Phone: [facility] 250 DO Work Phone: Start: 11-28-2022 Message Nano Nguyen Work Phone: [facility] 600 DO Work Phone: Start: 10-01-2022 End: 10-02-[address] NANO NGUYEN . Facility:[facility] Start: 09-04-2022 End: 09-05-[address] NANO NGUYEN . Facility:[facility] Start: 08-22-2022 End: 08-23-[address] STEPAN SAM Facility:[facility] Start: 07-19-2022 Office consultation new/estab patient 60 min Nano Nguyen Work Phone: [facility] 250 DO Work Phone: Start: 07-19-2022 ambulatory [...] 01-29-2022 ambulatory JOE HUBBARD Facility:[facility] [address] [facility] Nano Nguyen Work Phone: [facility] 250 DO Work Phone: Procedures Date Procedure Procedure Detail Performing Clinician Start: 08-07-2023 Radiologic exam ches t 2 views Willem Suarez MD Work Phone: Start: 07-17-2023 Antibody screen NANO NGUYEN Comment on above: Order Comment: Speci men Type: BLOOD SPECIMENOrdering Facility: [facility] Address: [address] [place] [address] Performed By: #### T [id number] ####[facility] MAIN BLOOD BANKCLIA [id number] [facility] [id number] [address] [place] Start: 05-28-2023 Echocardiography [...] CABG (coronary artery bypass graft) Anddillon Cruz APRN.CERTIFIED SURGICAL TECH/FIRST ASSISTANT Work Phone: Ligation of fallopian tube D ouglas Sara Nguyen Work Phone: Release of trigger finger Do ugcarlos enrique Nguyen Work Phone: Tonsillectomy and adenoidectomy Nano Nguyen Work Phone: Plan of Treatment Date Care Activity Detail Author Start: 05-28-2028 Lipid 1996 panel - S radha or Plasma Lipid Screening [facility] Start: 05-28-2026 Diabetes Screening Diabetes Screenin g [facility] Start: 04-03-2026 Diabetes Screening Diabetes Screenin g [facility] Start: 02-17-2025 Screening for malign ant neoplasm of lung Lung Cancer Screening [facility] Start: 01-15-2025 BP Controlled (<130/80) BP Controlle d (<130/80) [facility] Start: 10-09-2024 BP Controlled (<130/80) BP Controlle d (<130/80) [facility] Start: 10-09-2024 Screening for malign ant neoplasm of lung Lung Cancer Screening [facility] Start: 08-07-2024 BP Controlled (<130/80) BP Controlle d (<130/80) [facility] Start: 07-31-2024 End: 07-31-2024 Patient encounter procedure Vascular Surgery Comment on above: DEYANIRA CTA A/P w/ Runoff 3M FOLLOW UP W/ CTA A/P W/ RUNOFF, DEYANIRA Start: 07-02-2024 BP Controlled (<130/80) BP Controlle d (<130/80) [facility] Start: 05-28-2024 Hepatitis B surface antibody level LDL Cholesterol [facility] Start: 04-28-2024 End: 04-28-2024 Patient encounter procedure 04/28/2024 10:30 AM EST Office Visit Vascular Surg Dept [address] [phone] Papa Santiago MD [address] [id number] 3 month follow-up no testing Vascular Surg Dept Comment on above: 3 month follow-up no testing Start: 04-16-2024 End: 04-16-2024 Patient encounter procedure Radiology Comment on above: Lung nodule Lung nodule/6 MONTH FU/Staff Message Start: 04-07-2024 End: 04-07-2024 ambulatory 04/07/2024 8:30 AM EDT [facility] [address] [phone] Shanice Larsen MD [address] [place] [address] dx: Coronary artery disease of [place] artery of [place] heart with stable angina pectoris Cardiology Comment on above: dx: Coronary artery disease of [place] artery of [place] heart with stable angina pectoris Start: 02-23-2024 Covid-19 Vaccine () Covid-19 Vaccine () [facility] Start: 02-23-2024 Covid-19 Vaccine ( season) Covid-19 Vaccine ( season) [facility] Start: 02-23-2024 Influenza vaccination Influenza Vacc ine (#1) [facility] Start: 02-18-2024 End: 02-18-2024 Patient encounter procedure 02/18/2024 2:30 PM EDT Appointment Radiology [address] [phone] Coronary artery disease of [place] artery of [place] heart with stable angina pect... Radiology Comment on above: Coronary artery dise ase of [place] artery of [place] heart with stable angina pect... 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, bilateral legs f/u Start: 01-16-2024 End: 04-16-2024 Lipid 1996 panel - Serum or Plasma LIPID PANEL BASIC Lab Routine Coronary artery disease of [place] artery of [place] heart with stable angina pectoris (HCC) PAD (peripheral artery disease) (HCC) Primary hypertension Hyperlipidemia, unspecified hyperlipidemia type Expected: 01/16/2024, Expires: 04/16/[address] [facility] Work Phone: Comment on above: Expected: 01/16/2024 , Expires: 04/16/2024 Start: 01-16-2024 End: 01-16-2024 Patient encounter procedure 01/16/2024 11:15 AM EDT Office Visit Cardiology [address] [phone] Shanice Larsen MD [address] [place] [address] Coronary artery disease of [place] artery of [place] heart with stable angina pect... Cardiology Comment on above: Coronary artery dise ase of [place] artery of [place] heart with stable angina pect... Start: 01-16-2024 End: 01-16-2024 ambulatory 01/16/2024 10:45 AM EDT Results Only Cardiology [address] [phone] Coronary artery disease of [place] artery of [place] heart with stable angina pect... Cardiology Comment on above: Coronary artery dise ase of [place] artery of [place] heart with stable angina pect... Start: 01-15-2024 Hemoglobin A1c measurement HbA1C [facility] Start: 10-21-2023 End: 10-21-2023 Follow-up encounter 10/21/2023 3:30 PM EDT [facility] Pulmonary Medicine [address] [place] [address] Gloria Callahan MD [address] [place] [address] 3 Month Follow up Pulmonary Medicine Comment on above: 3 Month Follow up Start: 08-01-2023 End: 10-31-2023 CBC panel - Blood by Automated count CBC Lab Routine Surgery follow-up Expected: 08/01/2023, Expires: 10/31/[address] [facility] Work Phone: Comment on above: Expected: 08/01/2023 , Expires: 10/31/2023 Start: 08-01-2023 End: 10-31-2023 Comprehensive metabolic 2000 panel - Serum or Plasma COMP METABOLIC PANEL Lab Routine Surgery follow-up Expected: 08/01/2023, Expires: 10/31/[address] [facility] Work Phone: Comment on above: Expected: 08/01/2023 , Expires: 10/31/2023 Start: 06-24-2023 Advance Directive Discussion Advance Directive Discussion [facility] Start: 03-26-2023 End: 03-26-2023 [facility] Start: 02-22-2023 Covid-19 Vaccine ( season) Covid-19 Vaccine () [facility] Start: 02-22-2023 Influenza vaccination Influenza Vacc ine (#1) [facility] Start: 2023 Advance Directive Discussion Advance Directive Discussion [facility] Start: 2023 Bone Density Screening Bone Density Screening [facility] Start: 2023 Screening for osteoporosis Bone Density Screening [facility] Start: 06-24-2022 Depression Assessment Depression Ass essment [facility] Start: 2018 RSV Vaccine (1 - 1-d ose 60+ series) RSV Vaccine (1 - 1-dose 60+ series) [facility] Start: 01-24-2008 Influenza vaccination Lung Cancer [facility] Start: 01-24-2008 Screening for malign ant neoplasm of lung Lung Cancer Screening [facility] Start: 01-24-2008 Shingrix Vaccine (1 of 2) Hernandez grix Vaccine (1 of 2) [facility] Start: 2003 Cologuard (FIT-DNA) Cologuard (FIT-D NA) [facility] Start: 2003 Colonoscopy Colonoscopy [facility] Start: 2003 Colorectal Cancer Screening Colorectal Cancer Screening [facility] Start: [address] COLONOGRAPHY [facility] Start: 2003 Fecal Occult Blood Fecal Occult Bloo d [facility] Start: 2003 Lipid 1996 panel - S radha or Plasma Lipid Screening [facility] Start: 2003 Screening for malign ant neoplasm of colon [facility] Start: 2003 SIGMOIDOSCOPY SIGMOIDOSCOPY [facility] Start: 1998 Mammography Mammogram Screening [facility] Start: 1998 Screening for malign ant neoplasm of breast Mammogram Screening [facility] Start: 1977 Urine microalbumin profile DTaP,Tdap,Td Vaccine (1 - Tdap) [facility] Start: 01-24-1976 Annual PCP Team Delivery Man carl Disease Visit Annual PCP Team Chronic Disease Visit [facility] Start: 01-24-1976 BP Controlled (<130/80) BP Controlle d (<130/80) [facility] Start: 01-24-1976 Hepatitis C Screening Hepatitis C [facility] Start: 01-24-1976 HIV Screening HIV Screening [facility] Start: 01-24-1968 Diabetic foot examination Diabetic F oot Exam [facility] Start: 01-24-1968 Glaucoma screening Dilated Retinal E xam [facility] Start: 01-24-1968 Hepatitis B screening Urine Al bumin:Creatinine Ratio [facility] Start: 01-24-1964 Pneumococcal Vaccine : 65+ (1 - PCV) Pneumococcal Vaccine: 65+ (1 - PCV) [facility] [place] BIC Routine Coronary artery disease involving [place] coronary artery of [place] heart without angina pectoris Ordered: 09/03/[address] [facility] Work Phone: Comment on above: Ordered: 09/03/2023 CARDIAC REHAB [place] PT ([place] CARDIAC REHAB [place] BIC Routine Coronary artery disease of [place] artery of [place] heart with stable angina pectoris (HCC) SOB (shortness of breath) PAD (peripheral artery disease) ([facility]) TIA (transient ischemic attack) Ordered: 10/10/[address] [facility] Work Phone: Comment on above: Ordered: 10/10/2023 CT Chest WO contrast CT CHEST WO IVCON Radiology Routine Lung nodule 10/10/2023 10:[address] [facility] Work Phone: End: 11-19-2024 CT Chest WO contrast CT CHEST WO IVCON Radiology Routine Lung nodule 1 Occurrences starting 10/21/2023 until 11/19/[address] [facility] Work Phone: Comment on above: 1 Occurrences starti ng 10/21/2023 until 11/19/2024 End: 02-14-2025 CT Chest WO contrast CT CHEST WO IVCON Radiology Routine Coronary artery disease of [place] artery of [place] heart with stable angina pectoris (HCC) PAD (peripheral artery disease) (HCC) Primary hypertension Hyperlipidemia, unspecified hyperlipidemia type 1 Occurrences starting 01/16/2024 until 02/14/2025 [facility] Comment on above: 1 Occurrences starti ng 01/16/2024 until 02/14/2025 CT Chest WO contrast CT CHEST WO IVCON Radiology Routine Coronary artery disease of [place] artery of [place] heart with stable angina pectoris (HCC) PAD (peripheral artery disease) (HCC) Primary hypertension Hyperlipidemia, unspecified hyperlipidemia type 02/18/2024 2:[address] [facility] Work Phone: End: 07-02-2024 Ct thorax w/o contrast material CT CHEST CARDIAC WO IVCON Radiology Routine Coronary artery disease involving [place] coronary artery of [place] heart with angina pectoris (HCC) PAD (peripheral artery disease) (HCC) S/P insertion of iliac artery stent Current smoker Primary hypertension Coronary angioplasty status 1 Occurrences starting 06/03/2023 until 07/02/[address] [facility] Work Phone: Comment on above: 1 Occurrences starti ng 06/03/2023 until 07/02/2024 End: 05-28-2025 CTA Abdominal, Pelvis and Lower extremity vessels W contrast IV CTA ABD/PEL LOWER EXTREM WO/W IVCON Radiology Routine Peripheral vascular disease (HCC) Diminished pulses in lower extremity PAD (peripheral artery disease) (HCC) 1 Occurrences starting 04/28/2024 until 05/28/2025 [facility] Comment on above: 1 Occurrences starti ng 04/28/2024 until 05/28/2025 End: 04-08-2024 ECG COMPLETE ECG COMPLETE ECG Routine Abnormal stress test 1 Occurrences starting 04/08/2023 until 04/08/[address] [facility] Work Phone: Comment on above: 1 Occurrences starti ng 04/08/2023 until 04/08/2024 End: 08-01-2024 ECG COMPLETE ECG COMPLETE ECG Routine Surgery follow-up 1 Occurrences starting 08/01/2023 until 08/01/[address] [facility] Work Phone: Comment on above: 1 Occurrences starti ng 08/01/2023 until 08/01/2024 End: 10-09-2024 ECG COMPLETE ECG COMPLETE ECG Routine Coronary artery disease of [place] artery of [place] heart with stable angina pectoris (HCC) SOB (shortness of breath) PAD (peripheral artery disease) (HCC) TIA (transient ischemic attack) 1 Occurrences starting 10/10/2023 until 10/09/[address] [facility] Work Phone: Comment on above: 1 Occurrences starti ng 10/10/2023 until 10/09/2024 End: 01-15-2025 ECG COMPLETE ECG COMPLETE ECG Routine Coronary artery disease of [place] artery of [place] heart with stable angina pectoris (HCC) PAD (peripheral artery disease) (HCC) Primary hypertension Hyperlipidemia, unspecified hyperlipidemia type 1 Occurrences starting 01/16/2024 until 01/15/2025 [facility] Comment on above: 1 Occurrences starti ng 01/16/2024 until 01/15/2025 End: 04-08-2025 ECG COMPLETE ECG COMPLETE ECG Routine Pathological fracture of sternum with malunion Coronary artery disease of [place] artery of [place] heart with stable angina pectoris (HCC) 1 Occurrences starting 04/08/2024 until 04/08/[address] [facility] Work Phone: Comment on above: 1 Occurrences starti ng 04/08/2024 until 04/08/2025 End: 04-03-2024 Echocardiography ECHO Cardiology Routine Abnormal stress test 1 Occurrences starting 04/03/2023 until 04/03/[address] [facility] Work Phone: Comment on above: 1 Occurrences starti ng 04/03/2023 until 04/03/2024 End: 07-02-2024 LUNG DIFFUSION CAPACITY (DLCO) LUNG DIFFUSION CAPACITY (DLCO) PFT Routine Coronary artery disease involving [place] coronary artery of [place] heart with angina pectoris (HCC) PAD (peripheral artery disease) ([facility]) S/P insertion of iliac artery stent Current smoker Primary hypertension Coronary angioplasty status 1 Occurrences starting 06/03/2023 until 07/02/[address] [facility] Work Phone: Comment on above: 1 Occurrences starti ng 06/03/2023 until 07/02/2024 End: 07-02-2024 SPIROMETRY BASELINE ONLY SPIROMETRY BASELINE ONLY PFT Routine Coronary artery disease involving [place] coronary artery of [place] heart with angina pectoris (HCC) PAD (peripheral artery disease) ([facility]) S/P insertion of iliac artery stent Current smoker Primary hypertension Coronary angioplasty status 1 Occurrences starting 06/03/2023 until 07/02/[address] [facility] Work Phone: Comment on above: 1 Occurrences starti ng 06/03/2023 until 07/02/2024 End: 06-03-2024 US CAROTID ARTERIES [facility] US CAROTID ARTER[facility] Vascular Lab Routine Coronary artery disease involving [place] coronary artery of [place] heart with angina pectoris (HCC) PAD (peripheral artery disease) ([facility]) S/P insertion of iliac artery stent Current smoker Primary hypertension Coronary angioplasty status 1 Occurrences starting 06/03/2023 until 06/03/[address] [facility] Work Phone: Comment on above: 1 Occurrences starti ng 06/03/2023 until 06/03/2024 End: 06-03-2024 US LEG VEIN MAP [facility] US LEG VEIN MAP [facility] Vascular Lab Routine Coronary artery disease involving [place] coronary artery of [place] heart with angina pectoris ([facility]) PAD (peripheral artery disease) ([facility]) S/P insertion of iliac artery stent Current smoker Primary hypertension Coronary angioplasty status 1 Occurrences starting 06/03/2023 until 06/03/[address] [facility] Work Phone: Comment on above: 1 Occurrences starti ng 06/03/2023 until 06/03/2024 End: 01-02-2025 US Lower extremity artery - bilateral PVR LEG [facility] Vascular Lab Routine Atherosclerosis of [place] arteries of extremities with rest pain, bilateral legs ([facility]) 1 Occurrences starting 01/03/2024 until 01/02/[address] [facility] Work Phone: Comment on above: 1 Occurrences starti ng 01/03/2024 until 01/02/2025 End: 06-03-2024 US MAMMARY ARTERY [facility] US MAMMARY ARTERY [facility] Vascular Lab Routine Coronary artery disease involving [place] coronary artery of [place] heart with angina pectoris (HCC) PAD (peripheral artery disease) ([facility]) S/P insertion of iliac artery stent Current smoker Primary hypertension Coronary angioplasty status 1 Occurrences starting 06/03/2023 until 06/03/[address] [facility] Work Phone: Comment on above: 1 Occurrences starti ng 06/03/2023 until 06/03/2024 End: 06-03-2024 US RADIAL ARTERY MAP [facility] US RADIAL ARTERY MAP [facility] Vascular Lab Routine Coronary artery disease involving [place] coronary artery of [place] heart with angina pectoris (HCC) PAD (peripheral artery disease) ([facility]) S/P insertion of iliac artery stent Current smoker Primary hypertension Coronary angioplasty status 1 Occurrences starting 06/03/2023 until 06/03/[address] [facility] Work Phone: Comment on above: 1 Occurrences starti ng 06/03/2023 until 06/03/2024 End: 04-28-2025 US.doppler Extremity arteries - bilateral for physiologic artery study PVR ANK PRESS [facility] Vascular Lab Routine Peripheral vascular disease ([facility]) Diminished pulses in lower extremity PAD (peripheral artery disease) ([facility]) 1 Occurrences starting 04/28/2024 until 04/28/[address] [facility] Work Phone: Comment on above: 1 Occurrences starti ng 04/28/2024 until 04/28/2025 End: 08-30-2024 XR Chest 2 Views XR CHEST 2V FRONTAL/LAT Radiology Routine Surgery follow-up 1 Occurrences starting 08/01/2023 until 08/30/[address] [facility] Work Phone: Comment on above: 1 Occurrences starti ng 08/01/2023 until 08/30/2024 [facility] Immunizations Immunization Date Immunization Notes Care Provider Berta espino 05-29-2023 influenza virus vacc ine, unspecified formulation Nano Nguyen MD Work Phone: [facility] 04-10-2022 influenza, injectabl e, quadrivalent, contains preservative Nano Nguyen Work Phone: [facility] 250 DO Work Phone: 04-10-2022 influenza virus vacc ine, unspecified formulation Shanice Larsen MD Work Phone: [facility] 05-24-2021 [place] COVID-19 Vac cine 0.5 ML Intramuscular Suspension Nano Nguyen Work Phone: [facility] 11-11-2020 [place] COVID-19 Vac cine 0.5 ML Intramuscular Suspension Nano Nguyen Work Phone: [facility] 08-13-2020 zoster vaccine recombinant [facility] Nguyen [facility] Phone[facility] Work Phone: 06-11-2020 zoster vaccine recombinant Nano M Wendy Work Phone: [facility] 250 DO Work Phone: Payers Date Payer Category Payer Unknown [id number] 2023 [place] [id number] 2023-Present [phone] [address] [place] [address] Medicaid [id number] 2023 Private Health Insurance [id number] 2023 Self-pay 2023 Medicare [id number] 2023 Medicare [id number] 1959 Unknown [id number] 1958 Unknown [id number] [id number]. 356 1958 Unknown [id number] 2.16.840.1.970345.3.579.2. 593 1958 Unknown [id number] 2.16.840.1.546561.3.579.2. 593 1958 Unknown [id number] 2.16.840.1.284197.3.579.2. 593 1958 Unknown [id number] 2.16.840.1.487986.3.579.2. 593 1958 Unknown [id number] 2.16.840.1.778096.3.579.2. 593 1958 Unknown [id number] 2.16.840.1.838366.3.579.2. 593 1958 Unknown [id number] 2.16.840.1.050200.3.579.2. 593 1958 Unknown [id number] 2.16.840.1.429599.3.579.2. 593 1958 Unknown [id number] 2.16.840.1.394239.3.579.2. 593 1958 Unknown [id number] 2.16.840.1.032608.3.579.2. 593 1958 Unknown [id number] 2.16.840.1.866875.3.579.2. 593 1958 Unknown [id number] 2.16.840.1.479899.3.579.2. 593 1958 Unknown [id number] 2.16.840.1.393091.3.579.2. 593 1958 Unknown [id number] 2.16.840.1.634417.3.579.2. 1286 1958 Unknown [id number] 2.16.840.1.137994.3.579.2. 1286 1958 Unknown [id number] 2.16.840.1.954200.3.579.2. 1286 1958 Unknown [id number] 2.16.840.1.659113.3.579.2. 1286 1958 Unknown [id number] 2.16.840.1.869794.3.579.2. 1259 Private Health Insurance [id number] Unknown [facility] Unknown [id number] 2.16.840.1.786522.3.579.2. 531 Unknown [id number] 2.16.840.1.998850.3.579.2. 531 Social History Date Type Detail Facility Start: 04-03-2023 End: 01-28-2024 Social alcohol use Social alcohol use -[facility] 250 DO Work Phone: Comment on above: gummies, and pot; Start: 03-20-2023 End: 03-26-2023 Tobacco smoking status NHIS Smoker (finding) [facility] Start: 1960 Sex Assigned At Female F [facility] Start: 04-03-2023 End: 01-28-2024 Sex Assigned At [facility] [employer] Other Start: 04-03-2023 Tobacco smoking status NHIS Smokes tobacco daily [facility] History of tobacco use Cigarette Smoker [facility] Start: 04-03-2023 Tobacco use and exposure Smokeless tobacco non-user [facility] Start: 04-03-2023 End: 01-28-2024 Alcohol intake Current drinker of alcohol (finding) [facility] National Score (1-100), lower number is lower risk 91 [facility] Start: 1960 Sex Assigned At Not on file C [facility] Medical Equipment Procedure Code Equipment Code Equipment Original Text Equipment Identifier Dates [place] Thk1.65mm P tfe 4x.5in Cardiovascular Sterile - [id number] Start: 07-29-2023 Goals Date Patient Goal Desired Activity /State Personal health goal Personal health goal Clinical Notes 05-10-2022 to 04-28-2024 Papa Santiago MD - 04/28/2024 2:18 PM Shanice Dueñas MD - 04/07/2024 8:30 AM Christel Thao - 02/26/2024 10:09 AM EDTTelephone Encounter - Hilary Blackman RN - 02/25/2024 6:02 PM EDT Note Date & Type Note Facility 04-28-2024 Note [facility] 04-28-2024 History of Presen t illness Narrative Images from the original note were not included. [facility] DEPARTMENT OF VASCULAR SURGERY OUTPATIENT VISIT DATE April 28, 2024 OUTPATIENT VISIT TYPE ESTABLISHED SERVICE DATE: 04/28/2024 SERVICE TIME: 2:18 PM PRIMARY CARE PHYSICIAN: Nano Nguyen MD HISTORY OF PRESENT ILLNESS: Ms. Quezada is a 64 year old female who presents today for a vascular surgery follow-up visit for claudication. Patient states that she is still smoking due to her depression. Her recent fall and pain when she walks is causing her a lot of anxiety and mental anguish. She has restarted smoking and has not attempted to quit again. She states that the last time she was seen by her Family doctor she joked about killing her self with a shotgun. She made similar comments during the visit, but states she does not own a firearm or have plans. She is recovering well from a cardiac standpoint. She gets pain in her legs when she walks 50 feet and it's interrupting her ability to garden. 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 oxybutynin (DITROPAN) 5 mg tablet two times [...] mg by mouth two times a day. iv contrast (will be provided with radiology test) CTA ABD/PEL LE - No IV access, insert saline lock prior to the sedation, infusion, injection for imaging exam. Discontinue saline lock post exam. If Pt. has a central line or IVAD, may access for administration according to line specific nursing protocol. Once exam is complete flush line and de-access according to line specific nursing protocol in the CT contrast administration guidelines link. ALLERGIES: ALLERGIES Allergen Reactions Tetracycline Unknown, GI Upset Januvia [Sitaglipti* Unknown Miconazole Itching, Swelling Rosuvastatin Unknown Allerg Xt,D.Farinae* Itching Cat Hair Standardiz* Itching sneezing House Dust Itching PHYSICAL EXAM: BP 135/75 Pulse 84 General: Alert and oriented, No acute distress, [...] clubbing. Neurological: Normal cognition and motor skills. Diagnostic tests reviewed for today's visit: None IMPRESSION: Ms. Quezada is a 64 year old female with CAD s/p CABG and PAD with life-style limiting claudication. PLAN and RECOMMENDATIONS: Had a long extensive discussion with the patient that smoking cessation is vitally important to decreasing her long-term risks and improving her cardiovascular health At this time, she is still claudicating with no evidence of rest pain therefore will continue with non-operative management Recommend continued supervised walking therapy Will arrange short-term follow-up for evaluation and symptoms Trial of Pletal SIGNATURE: Papa Santiago MD PATIENT NAME: Elizabeth Quezada DATE: April 28, 2024 TIME: 2:18 PM documented in this encounter [facility] 04-07-2024 History of Presen t illness Narrative Heart, Vascular & Thor[facility] Department of Cardiovascular Medicine VIRTUAL VIDEO VISIT [...] visit. Either the patient or their legal account retention representative has been informed of the risks [...] PAST MEDICAL HISTORY Diagnosis Date Atherosclerosis of [place] arteries of extremity with intermittent claudication (HCC) [...] vessels: CABG changes are noted. Severe multivessel [place] coronary artery calcifications noted. Atherosclerotic calcifications of [...] 2024 8:16 PM documented in this encounter [facility] 04-07-2024 Note [facility] 02-26-2024 History of Presen t illness Narrative Follow Up Diagnosis: Lung Nodule Recommendation: CT Scan Follow up Date: 02/15/2025 Follow-Up Scheduled: No Pulmonary Follow-Up Type: Lung Nodule Surveillance Enrolled in Lung Nodule program: Yes Lung Nodule Program Location: [facility] documented in this encounter [facility] 02-26-2024 Note [facility] 02-25-2024 Telephone encounter Note 02/25/[address] Eric carter. Hilary Blackman RN [facility] 02-25-2024 Miscellaneous Notes 02/25/[address] Eric Blackman RN [facility] documented in this encounter [facility] 02-25-2024 Telephone encounter Note 02/25/24: Dr. Callahan requests patient be called with results of Ct Chest done 02/18/24: CT chest reviewed. Rt lung nodule opacity unchanged since 05/2023. Recommend continued monitoring -repeat CT imaging in 1 year. Called patient & LVM and sent MyC. Hilary Blackman RN [facility] 02-25-2024 Miscellaneous Notes 02/25/24: Dr. Callahan requests patient be called with results of Ct Chest done 02/18/24: CT chest reviewed. Rt lung nodule opacity unchanged since 05/2023. Recommend continued monitoring -repeat CT imaging in 1 year. Called patient & LVM and sent MyC. Hilary Blackman RN [facility] documented in this encounter [facility] 02-18-2024 History of Presen t illness [...] PATIENT PRESENTS WITH AN IMPLANTABLE OR ATTACHED SURFACER: No RADIOLOGY DEPARTMENT: CT; Exam(s) Completed: Chest PERIPHERAL IV DATA: Not applicable SIGNED BY: RT Mitch(Alyssa) February 18, 2024 2:05 PM documented in this encounter [facility] 02-18-2024 Note [facility] 02-04-2024 History of Presen t illness Narrative QOL Call Tracking Documentation Follow-Up Type: Phone Call Call Attempt: 1st Attempt Call Status: Complete documented in this encounter [facility] 02-04-2024 Note HNO ID: [id number] Author: ?, ?, ? Service: ? Author Type: ? Type: Progress Notes Filed: 02/04/2024 12:53 Note Text: QOL Call Tracking Documentation Follow-Up Type: Phone Call Call Attempt: 1st Attempt Call Status: Complete [facility] 01-28-2024 Note [facility] 01-28-2024 History of Presen t illness Narrative Images from the original note were not included. [facility] DEPARTMENT OF VASCULAR SURGERY OUTPATIENT VISIT DATE [...] spirits. PAST MEDICAL HISTORY 06/14/2023: Atherosclerosis of [place] arteries of extremity with intermittent claudication (HCC) [...] Obesity No date: PAD (peripheral artery disease) ([facility]) No date: Visual impairment PAST SURGICAL HISTORY [...] TIME: 12:33 PM documented in this encounter [facility] 01-16-2024 History of Presen t illness Narrative Images from the original note were not included. 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 Electronically Signed:payton Leos, January 16, 2024 8:24 AM Provider Attestation: IShanice MD, personally performed the services described in this documentation. All medical record entries made by the patyon were at my direction and in my presence. I have reviewed the chart and discharge instructions (if applicable) and agree that the record reflects my personal performance and is accurate and complete. Shanice Larsen MD January 17, 2024 12:17 PM documented in this encounter [facility] 01-16-2024 Note [facility] 01-01-2024 Telephone encounter Note Reason for call: Ms Quezada called and she would like to schedule an appointment with DR Qiana Neves and cell number [phone] DiagnosisAtherosclerosis of [place] arteries of extremities with rest pain, bilateral legs Kind Regards Dunia [facility] 01-01-2024 Miscellaneous Notes Reason for call: Ms Quezada called and she would like to schedule an appointment with DR Qiana Neves and cell number [phone] DiagnosisAtherosclerosis of [place] arteries of extremities with rest pain, bilateral legs Kind Regards Dunia documented in this encounter [facility] 10-30-2023 Note [facility] 10-30-2023 History of Presen t illness Narrative QOL Call Tracking Documentation Follow-Up Type: Phone Call Call Attempt: 1st Attempt Call Status: Patient will complete in MyChart documented in this encounter [facility] 10-30-2023 Telephone encounter Note Attempted to call patient, no answer. Left voicemail asking patient to check mychart as I will send there. Mary Franks RN [facility] 10-30-2023 Miscellaneous Notes Attempted to call [...] doses. October 25, 2023 Patient Contact Number: [phone] (home) Patient last seen within the last [...] Yes Lizzeth Kong documented in this encounter [facility] 10-29-2023 Telephone encounter Note Per dr larsen, yes can be on both. Suzie does not see a reason to separate but can separate days of the week if want. Can take motrin intermittently but not regular doses. [facility] 10-25-2023 Telephone encounter Note October 25, 2023 Patient Contact Number: [phone] (home) Patient last seen within the last [...] next three business days. Yes Lizzeth Kong [facility] 10-24-2023 Note [facility] 10-24-2023 History of Presen t illness Narrative Follow Up Diagnosis: Lung Nodule Recommendation: CT Scan Follow up Date: 04/16/2024 Follow-Up Scheduled: Yes Pulmonary Follow-Up Type: Lung Nodule Surveillance Enrolled in Lung Nodule program: Yes Lung Nodule Program Location: [facility] documented in this encounter [facility] 10-21-2023 Evaluation note Diagnosis Lung nodule- [...] with smoking cessation documented in this encounter [facility]04-29-[facility] History of Present illness Narrative* Gloria Callhaan MD - 10/21/2023 3:52 PM EDT Images from the original note were not included. [facility] INCIDENTAL LUNG NODULE PROGRAM ([facility] Follow-Up) Assessment / Plan 63 year old [...] Lung Nodule Surveillance Lung Nodule Program Location: [facility] Medical Decision Making: Problems: Low: Stable [...] visit. Either the patient or their legal account retention representative has been informed of the risks [...] PAST MEDICAL HISTORY Diagnosis Date Atherosclerosis of [place] arteries of extremity with intermittent claudication (HCC) [...] DATE OF EXAM: Oct 10 2023 10:41AM [facility] [place] [facility] - CT CHEST WO IVCON / [...] is normal in caliber. Moderate to severe [place] coronary artery atherosclerotic calcifications are present, however, [...] given small size. 4. No thoracic lymphadenopathy. 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 ATS/ERS acceptability and repeatability [...] MD Pulmonary & Critical Care Medicine Respiratory [place] October 21, 2023 3:55 PM documented [facility] Telephone encounter Note * Telephone Encounter - Shanta Shook RN - 10/18/2023 2:12 PM EDT Ambulatory Pharmacy Prior Authorization Note Provider Intervention Required?: No- Pharmacy completed on your behalf. Rx Plan: IID Drug: Repatha SureClick 140MG/ML auto-injectors Cover My Meds Aguayo: [id number] Determination: Approved Prior Authorization/Case #: n/a Prior [...] will now be processed through [facility] for determination of next steps. For questions relating to this submission, please contact [facility] at [phone] [facility] Work Phone: 1(849) 869-495804-26-2024 Miscellaneous Notes* Telephone Encounter - Shanta Shook RN - 10/18/2023 2:12 PM EDT Ambulatory Pharmacy Prior Authorization Note Provider Intervention Required?: No- Pharmacy completed on your behalf. Rx Plan: [employer] Drug: Repatha SureClick 140MG/ML auto-injectors Cover My Meds Agu[place]o: [id number] Determination: Approved Prior Authorization/Case #: n/a Prior [...] will now be processed through [facility] for determination of next steps. For questions relating to this submission, please contact [facility] at [phone] documented in this encounter[facility] Telephone encounter Note * Telephone Encounter - Lizzeth Kong - 10/17/2023 2:12 PM EDT ADMIN UPLOADED OUTSIDE CARDIAC IMAGES TO [facility] CTA HEAD/NECK CT ANGIO HEAD CT ANGIO NECK CA ECHO DOPPLER Lizzeth Kong October 17, 2023 2:16 PM [facility]04-25-2024 Miscellaneous Notes* Telephone Encounter - Lizzeth Kong - 10/17/2023 2:12 PM EDT ADMIN UPLOADED OUTSIDE CARDIAC IMAGES TO [facility] CTA HEAD/NECK CT ANGIO HEAD CT ANGIO NECK CA ECHO DOPPLER Lizzeth Kong October 17, 2023 2:16 PM documented in this encounter[facility] Telephone encounter Note * Telephone Encounter - Lizzeth Kong - 10/17/2023 1:36 PM EDT ADMIN UPLOADED OUTSIDE CARDIAC RECORDS TO [facility] ECHO REPORT Lizzeth Luann October 17, 2023 1:37 PM [facility]04-25-2024 Miscellaneous Notes* Telephone Encounter - Lizzeth Kong - 10/17/2023 1:36 PM EDT ADMIN UPLOADED OUTSIDE CARDIAC RECORDS TO [facility] ECHO REPORT Lizzeth Luann October 17, 2023 1:37 PM documented in this encounterAv[facility] History of Present illness Narrative* Shanice Larsen MD - 10/10/2023 12:30 PM EDT Images from the original note were not included. [facility] [place] Arlette Goldstein Department of Cardiovascular Medicine SECTION OF CLINICAL CARDIOLOGY OUTPATIENT VISIT DATE October 10, 2023 OUTPATIENT VISIT TYPE ESTABLISHED PRIMARY CARE PHYSICIAN: Nano Nguyen [facility] [place] [address] CHIEF COMPLAINT: CV management HISTORY OF PRESENT [...] PAST MEDICAL HISTORY Diagnosis Date Atherosclerosis of [place] arteries of extremity with intermittent claudication (HCC) [...] INFORMATION: Shanice Larsen MD October 10, 2023 [address] [place] [address] Scribe Attestation: By signing my name below, [...] 11, 2023 6:00 PM documented in this encounter[facility]04-[facility]-2024 Note[facility]04-18-2024 History of Present illness Narrative* Yojana Liang, RT(R) - 10/10/2023 10:36 AM EDT Radiology [...] PATIENT PRESENTS WITH AN IMPLANTABLE OR ATTACHED SURFACER: No RADIOLOGY DEPARTMENT: CT; Exam(s) Completed: Chest PERIPHERAL IV DATA: Not applicable SIGNED BY: RT Sepideh(R) October 10, 2023 10:36 AM documented in this encounterAv[facility]-2024 Miscellaneous Notes* Telephone Encounter - Anna Richmond - 09/23/2023 11:34 AM EDT Yeimy from [facility] - Dr. Luciano called and wanted to know how long should it be for the patient to be cleared after surgery for the patient to get her teeth cleaned. It's been 8 weeks and she thought it would be longer than that. Yeimy can be reached at [phone] documented in this encounterAv[facility] History of Present illness Narrative* Anna Perea RN - 09/03/2023 12:14 PM EDT QOL Call Tracking Documentation Follow-Up Type: Phone Call Call Attempt: 1st Attempt Call Status: Patient will complete in MyChart documented in this encounterAvita [facility]-2024 NoteOhio [facility]03-01-2024 Miscellaneous Notes* Telephone Encounter - Dot Stern - 08/23/2023 9:07 AM EST Reason for call: Pt called and she would like to reschedule her appt on 02 september to . Home and cell number: [phone] Diagnosis: HOSP FOLLOW UP-DISCUSS TIMING OF LOVE FEM ENDARTS NO TESTING NEEDED Kind Regards, Dot Stern documented in this encounterAv[facility]02-15-2024 Miscellaneous Notes* Telephone Encounter - Moriah [...] . Moriah Morris RN documented in this encounterAvita Health [facility]02-14-2024 Instructions* Patient Instructions* Dania Cruz APRN.CNP - 08/07/2023 11:10 AM EST Follow up with PCP next week with repeat cbc and cmp to monitor trends. Follow up with director print in 4-6 weeks with consideration of repeat echo. No further refills unless specified by local providers. documented in this encounterAvita [facility]02-[facility]24 History of Present illness Narrative* Dania Cruz APRN.CNP - 08/07/2023 10:30 AM EST Images from the original note were not included. 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 Edematous noted. Procedures: every other [place] removed from saphenous vein sites without difficulty. Sutures removed from chest tube sites without difficulty. C to remove remaining stable IMPRESSION & PLAN: [...] cmp to monitor trends Follow up with director print in 4-6 weeks. May need more diuresing [...] prophylaxis reviewed Discussed wound care Dania Cruz APRN.CERTIFIED SURGICAL TECH/FIRST ASSISTANT documented in this encounterAvita [facility]-2024 NoteOhio [facility] System02-14-2024 History of Present illness Narrative* [...] PATIENT PRESENTS WITH AN IMPLANTABLE OR ATTACHED SURFACER: No RADIOLOGY DEPARTMENT: General X-ray: Exam(s) Completed: Chest X-Ray PERIPHERAL IV DATA: Not applicable SIGNED BY: RT Enrike(Alyssa) August 07, 2023 10:07 AM documented in this encounterAvita [facility]02-14-2024 NoteOhio [facility]02-13-2024 Miscellaneous Notes* Telephone Encounter - Kevin Reardon [...] given. Kevin Reardon RN documented in this encounterAvita Health [facility]02-09-2024 NoteOhio [facility] System02-09-2024 NoteOhio [facility]02-09-2024 NoteOhio [facility]02-08-2024 NoteOhio [facility]02-08-2024 Note [facility]07-2024 [facility]02-06-2024 NoteOhio [facility]02-05-2024 [facility] 07-29-2023 NoteOhio [facility] System02-05-2024 NoteOhio [facility]01-31-2024 NoteHNO ID: [id number] Author: ?, ?, ? Service: ? Author Type: ? Type: Progress Notes Filed: 07/24/2023 11:11 Note Text: QOL Call Tracking Documentation Follow-Up Type: Phone Call Call Attempt: 1st Attempt Call Status: Left MessageOhio State Health System01-24-2024 NoteOhio [facility] System01-24-2024 NoteOhio [facility]01-24-2024 Note [facility]01-15-[facility]24 Note[facility]01-09-2024 NoteOhio [facility]01-09-2024 Note[facility] 07-02-2023 NoteOhio [facility] System01-09-2024 NoteOhio [facility]01-09-2024 NoteOhio [facility]01-09-2024 NoteOhio [facility]01-04-2024 NoteOhio [facility] System12-29-2023 NoteHNO ID: [id number] Author: Christel De La Fuente Service: ? Author Type: ? Type: Progress Notes Filed: 06/26/2023 2:37 PM Note Text: Sent to Scheduling Patient scheduled 07/08/23[facility]12[facility]23 [facility]12-22-2023 Note [facility]12-22-2023 NoteHNO ID: [id number] Author: Julio Smalls RRT Service: ? Author Type: Registered Resp Therapist Type: Progress Notes Filed: 06/14/2023 12:24 PM Note Text: PULM FUNCTION SMARTBLOCK: Provider: Willem Suarez MD Spirometry: 1 [facility] 06-03-2023 Miscellaneous Notes* Telephone Encounter - LcRobbin lentz - 06/03/2023 4:34 PM EST CALLED AND CONFIRMED APPTS W/MRS. QUEZADA VIA PHONE MAILED REMINDER FED EX NEXT DAY 06-03-23 #[id number] * Telephone Encounter - Ghazala Malave RN - 05/30/2023 10:08 AM EST eval only kris vascular surgery, testing, Dr. Suarez *Please call with date internal referral diagnosis: CAD history: PAD s/p iliac stents November 2022, current smoker, DM2, HTN blood thinners: asa 81, plavix, xarelto, trulicity, jardiance, ibuprofen documented in this encounterAvita Health [facility]12-07-2023 Miscellaneous Notes* Telephone Encounter - Radha Brady - 05/30/2023 10:38 AM EST IN documented in this encounterAvita Health [facility]12-05-2023 NoteOhio State [facility] System12-05-2023 History of Present illness Narrative* Shanice Larsen MD - 05/28/2023 1:37 PM EST Images from the original note were not included. Heart, Vascular and Thoracic [place] Arlette Goldstein Department of Cardiovascular Medicine SECTION OF CLINICAL CARDIOLOGY OUTPATIENT VISIT DATE May 28, 2023 OUTPATIENT VISIT TYPE ESTABLISHED PRIMARY CARE PHYSICIAN: To use this Smartlink, specify the provider ID whose address you want to display, e.g., .PROVADDR[1(where 1 is the provider ID). REFERRING PHYSICIAN: Shanice Larsen [address] [facility] [address] CHIEF COMPLAINT: Shortness of breath HISTORY OF PRESENT ILLNESS: Ms. Quezada is a 63 year old female who presents today for a cardiovascular medicine follow-up visit. I last saw her in Mar . She was having severe nausea and vomiting at the time. She was worked up by her claims investigator and no cause was found. She is [...] Upset Januvia [Sitaglipti* Unknown Rosuvastatin Unknown Allerg XtD.Farinae* Itching Cat Hair Standardiz* Itching sneezing House [...] PhD, DAYO ([id number]) on 04/16/2023 6:22:03 AM I have personally reviewed the Echocardiogram. IMPRESSION: Ms. Quezada is a 63 year old female with severe PAD,multivessel CAD . She is still smoking and she has Type 2 DM PLAN AND RECOMMENDATIONS: CABG-need to make sure she has adequate conduit. Shanice Larsen MD CONTACT INFORMATION: documented in this encounterAvita [facility]11-20-2023 NoteOhio [facility] System11-20-2023 History of Present illness Narrative* Shanice Larsen MD - 05/13/2023 3:10 PM EST Heart, Vascular & Thor[facility] [place] Department of Cardiovascular Medicine VIRTUAL VIDEO VISIT [...] visit. Either the patient or their legal account retention representative has been informed of the risks [...] 13, 2023 3:10 PM documented in this encounterAvita [facility]11-09-2023 NoteOhio [facility] System11-03-2023 History of Present illness Narrative* [...] high risk-Shanice Larsen MD documented in this encounterAvita Health [facility]10-11-2023 Instructions* Patient Instructions* Serena Smith - 04/03/2023 9:34 AM EDT Complete blood work today Complete Echo documented in this encounterAvita Health System [facility]10-11-2023 History of Present illness Narrative* Shanice Larsen MD - 04/03/2023 7:45 AM EDT Images from the original note were not included. 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 4. ACTIVITY: You are advised to [...] the instructions on the bottle. [facility] is not responsible for incorrect prescription information provided by the patient during their visit. Do not stop your medications without consulting your health care provider. Please take the list with you to your next doctor's appointment.[facility] Work Phone: 1(745) 100-530809-27-2023 Evaluation note* Encounter Date Diagnosis Assessment Notes Treatment Notes Treatment Clinical Notes Feb, Shortness of breath (ICD-10 - R06.02) Feb, Abnormal stress test (ICD-10 - R94.39) 63-year-old female with past medical history significant for peripheral vascular disease status post bilateral iliac kissing stents with now worsening intermittent claudication. She is planned for an aortobifemoral bypass surgery at [facility] on March 29, 2023 and presents [...] Hyperlipidemia, unspecified hyperlipidemia type (ICD-10 - E78.5) [facility] [place] Other [id number] NotePROCEDURE: XR FOOT RT MIN 3 VIEWS [...] Electronically authenticated by: NISA EDWARDS Date: 2022-05-10 13:23[facility] complaint Narrative - Abiodun QUEZADA is being seen for a consultation for dizziness, fatigue and palpitations.-[facility] [place] [address] DO Work Phone: Evaluation noteNo assessment information available [facility] Work Phone: evaluation noteNo InformationNort Smart [employer] Other evaluation note* Diagnosis Abnormal stress test- Primary Other nonspecific abnormal cardiovascular system function study documented in this encounter [facility] note* Diagnosis Abnormal stress test- Primary Other nonspecific abnormal cardiovascular system function study [facility]* Diagnosis Coronary artery disease involving [place] coronary artery without angina pectoris, unspecified whether [place] or transplanted heart- Primary documented in this encounter [facility] note* Diagnosis Coronary artery disease involving [place] coronary artery of [place] heart without angina pectoris- Primary Preop cardiovascular exam Pre-operative cardiovascular examination Morbid obesity (HCC) Morbid obesity documented in this encounter [facility] note* Diagnosis SOB (shortness of breath)- Primary Shortness of breath Coronary artery disease involving [place] coronary artery of [place] heart without angina pectoris PAD (peripheral artery disease) (HCC) Peripheral vascular disease, unspecified [facility] Coronary artery disease involving [place] coronary artery of [place] heart with angina pectoris (HCC)- Primary PAD (peripheral artery disease) ([facility]) Peripheral vascular disease, unspecified S/P insertion of iliac artery stent Other postprocedural status Current smoker Tobacco use disorder Primary hypertension Unspecified essential hypertension Coronary angioplasty status Postsurgical percutaneous transluminal coronary angioplasty status documented [facility] this [facility]* Diagnosis Surgery follow-up- Primary Follow-up examination, following unspecified surgery documented [facility] encounter [facility]* Diagnosis S/P CABG (coronary artery bypass graft)- Primary Postsurgical aortocoronary bypass status PVD (peripheral vascular disease) ([facility]) Peripheral vascular disease, unspecified documented [facility] this encounter [facility]* Diagnosis Surgery follow-up Follow-up examination, following unspecified surgery [facility] Diagnosis Abnormal finding of diagnostic imaging- Primary Other nonspecific (abnormal) findings on radiological and other examinations of body structure documented [facility] this encounter [facility]* Diagnosis Coronary artery disease involving [place] coronary artery of [place] heart without angina pectoris- Primary [facility]* Diagnosis Lung nodule Solitary pulmonary nodule [facility]* Diagnosis Coronary artery disease of [place] artery of [place] heart with stable angina pectoris (HCC)- Primary SOB (shortness of breath) Shortness of breath PAD (peripheral artery disease) ([facility]) Peripheral vascular disease, unspecified TIA (transient ischemic attack) Unspecified transient cerebral ischemia [facility]* Diagnosis Atherosclerosis of [place] arteries of extremities with rest pain, bilateral legs (HCC)- Primary [facility]* Diagnosis Coronary artery disease of [place] artery of [place] heart with stable angina pectoris (HCC)- Primary PAD (peripheral artery disease) ([facility]) Peripheral vascular disease, unspecified Primary hypertension Unspecified essential hypertension Hyperlipidemia, unspecified hyperlipidemia type documented in this encounter [facility]* Diagnosis Atherosclerosis of las [place] artery of both lower extremities with intermittent claudication (HCC)- Primary Atherosclerosis of [place] arteries of the extremities with intermittent claudication documented [facility] Diagnosis Lung nodule- Primary Solitary pulmonary nodule Lung nodule- Primary Solitary pulmonary nodule Coronary artery disease of [place] artery of [place] heart with stable angina pectoris (HCC) PAD (peripheral artery disease) (HCC) Peripheral vascular disease, unspecified Primary hypertension Unspecified essential hypertension Hyperlipidemia, unspecified hyperlipidemia type documented in this encounter [facility] Diagnosis Lung nodule- Primary Solitary pulmonary nodule Lung nodule- Primary Solitary pulmonary nodule Pathological fracture of sternum with malunion- Primary Coronary artery disease of [place] artery of [place] heart with stable angina pectoris (HCC) documented [facility] Diagnosis Lung nodule- Primary Solitary pulmonary nodule Lung nodule- Primary Solitary pulmonary nodule Peripheral vascular disease (HCC)- Primary Peripheral vascular disease, unspecified Diminished pulses in lower extremity Other symptoms involving cardiovascular system PAD (peripheral artery disease) (HCC) Peripheral vascular disease, unspecified documented in [facility] Diagnosis Lung nodule- Primary Solitary pulmonary nodule Lung nodule- Primary Solitary pulmonary nodule Atherosclerosis of [place] artery of both lower extremities with intermittent claudication (HCC)- Primary Atherosclerosis of [place] arteries of the extremities with intermittent claudication documented in this encounter [facility] general Narrative - Reported* Type Description Date Medical History aortic stenosis Medical History diabetes type 2 Medical History blood clot Medical History hypertension Medical History hyperlipidemia Medical History peripheral vascular disease Surgical History carpal tunnel Surgical History trigger finger Surgical History tubal ligation Surgical History bilateral kissing stents Surgical History left thigh evacuation hematoma Hospitalization History blood clot after cardiac stents [employer] Other History of Present illness Narrative* Patient [...] change and see us henceforth as needed. -[facility]-Chad Reyes DO Work Phone: [facility] (narrative)* Outpatient Procedure (Routine) - Authorized Specialty Diagnoses / Procedures Referred By Contac t Referred To Contact [facility] Diagnoses Abnormal stress test Procedures ECHO ECHO TTHRC R-T 2D W/WOM-MODE COMPL SPEC&COLR D Shanice Larsen MD [address] [place] [address] [address] Referral ID Status Reason Start Date Expiration Date Visits Requested Visits Authorized [id number] Authorized Auto-Generat ed Referral 3 04/02/2024 1 1 T [facility] for referral (narrative)* Outpatient Procedure (Routine) - Authorized Specialty Diagnoses / Procedures Referred By Contac t Referred To Contact [facility] Diagnoses Abnormal stress test Procedures ECG COMPLETE ECG ROUTINE ECG W/LEAST 12 LDS W/I&R Pamela Laws APRN.CNP [address] [place] [address] [place] [id number] Referral ID Status Reason Start Date Expiration Date Visits Requested Visits Authorized [id number] Authorized Auto-Generat ed Referral 3 04/07/2024 1 1 [facility] for referral (narrative)* Outpatient Procedure (Routine) - Authorized Specialty Diagnoses / Procedures Referred By Contac t Referred To Contact [facility] Diagnoses Coronary artery disease involving [place] coronary artery of [place] heart with angina pectoris (HCC) PAD (peripheral artery disease) (HCC) S/P insertion of iliac artery stent Current smoker Primary hypertension Coronary angioplasty status Procedures US RADIAL ARTERY MAP [facility] DUP-SCAN UXTR ART/ARTL BPGS COMPL BI STUDY Willem Suarez MD [address] [place] [address] [facility] [place] [address] [place] [address] Referral ID Status Reason Start Date Expiration Date Visits Requested Visits Authorized [id number] Authorized Auto-Generat ed Referral 3 06/02/2024 1 1 * Outpatient Procedure (Routine) - Authorized Specialty Diagnoses / Procedures Referred By Catherine michel Referred To [facility] Diagnoses Coronary artery disease involving [place] coronary artery of [place] heart with angina pectoris (HCC) PAD (peripheral artery disease) (HCC) S/P insertion of iliac artery stent Current smoker Primary hypertension Coronary angioplasty status Procedures LUNG DIFFUSION CAPACITY (DLCO) DIFFUSING CAPACITY Willem Suarez MD [address] [place] [address] [facility] [place] [address] [place] [id number] Referral ID Status Reason Start Date Expiration Date Visits Requested Visits Authorized [id number] Authorized Auto-Generat ed Referral 3 07/02/2024 1 1 * Outpatient Procedure (Routine) - Authorized Specialty Diagnoses / Procedures Referred By Catherine michel Referred To [facility] [place] Diagnoses Coronary artery disease involving [place] coronary artery of [place] heart with angina pectoris (HCC) PAD (peripheral artery disease) (HCC) S/P insertion of iliac artery stent Current smoker Primary hypertension Coronary angioplasty status Procedures SPIROMETRY BASELINE ONLY SPMTRY W/VC EXPIRATORY CHERYL W/WO MXML VOL VNTJ Willem Saurez MD [address] [place] [address] [facility] [place] [address] [place] [address] Referral ID Status Reason Start Date Expiration Date Visits Requested Visits Authorized [id number] Authorized Auto-Generat ed Referral 3 07/02/2024 1 1 * Outpatient Procedure (Routine) - Authorized Specialty Diagnoses / Procedures Referred By Contac t Referred To Contact [facility] Diagnoses Coronary artery disease involving [place] coronary artery of [place] heart with angina pectoris (HCC) PAD (peripheral artery disease) (HCC) S/P insertion of iliac artery stent Current smoker Primary hypertension Coronary angioplasty status Procedures US MAMMARY ARTERY [facility] DUP-SCAN UXTR ART/ARTL BPGS COMPL BI STUDY Willem Suarez MD [address] [place] [address] [address] Referral ID Status Reason Start Date Expiration Date Visits Requested Visits Authorized [id number] Authorized Auto-Generat ed Referral 3 06/02/2024 1 1 * Outpatient Procedure (Routine) - Authorized Specialty Diagnoses / Procedures Referred By Contac t Referred To [facility] Diagnoses Coronary artery disease involving [place] coronary artery of [place] heart with angina pectoris (HCC) PAD (peripheral artery disease) (HCC) S/P insertion of iliac artery stent Current smoker Primary hypertension Coronary angioplasty status Procedures US LEG VEIN MAP [facility] DUP-SCAN XTR VEINS COMPLETE BILATERAL STUDY Willem Suarez MD [address] [place] [address] [address] Referral ID Status Reason Start Date Expiration Date Visits Requested Visits Authorized [id number] Authorized Auto-Generat ed Referral 3 06/02/2024 1 1 * Outpatient Procedure (Routine) - Authorized Specialty Diagnoses / Procedures Referred By Contac t Referred To Contact [facility] Diagnoses Coronary artery disease involving [place] coronary artery of [place] heart with angina pectoris (HCC) PAD (peripheral artery disease) (HCC) S/P insertion of iliac artery stent Current smoker Primary hypertension Coronary angioplasty status Procedures US CAROTID ARTERIES [facility] DUPLEX SCAN EXTRACRANIAL ART COMPL BI STUDY Willem Suarez MD [address] [facility] [place] [address] [facility] [place] [address] [place] [address] Referral ID Status Reason Start Date Expiration Date Visits Requested Visits Authorized [id number] Authorized Auto-Generat ed Referral 3 06/23/2023 1 1 * MRI/CT (Routine) - Authorized Specialty Diagnoses / Procedures Referred By Catherine michel Referred To Contact CT IMAGING Diagnoses Coronary artery disease involving [place] coronary artery of [place] heart with angina pectoris (HCC) PAD (peripheral artery disease) (HCC) S/P insertion of iliac artery stent Current smoker Primary hypertension Coronary angioplasty status Procedures CT CHEST CARDIAC WO IVCON DIAGNOSTIC COMPUTED TOMOGRAPHY THORAX W/O CNTRST Willem Suarez MD [address] [place] [id number] Imaging [place] [address] Referral ID Status Reason Start Date Expiration Date Visits Requested Visits Authorized [id number] Authorized Auto-Generat ed Referral 3 07/02/2024 1 1 * Consult, Test, Treat (Routine) - Authorized Specialty Diagnoses / Procedures Referred By Catherine t Referred To Contact Vascular Surgery Diagnoses Coronary artery disease involving [place] coronary artery of [place] heart with angina pectoris (HCC) PAD (peripheral artery disease) (HCC) S/P insertion of iliac artery stent Current smoker Primary hypertension Coronary angioplasty status Procedures CONSULT TO VASCULAR SURGERY OFFICE/OUTPATIENT NEW HIGH MDM 60-74 MINUTES Willem Suarez MD [address] [facility] [place] [address] Referral ID Status Reason Start Date Expiration Date Visits Requested Visits Authorized [id number] Authorized PCP Requested Referral 3 06/02/2024 1 1 * Consult, Test, Treat (Routine) - Authorized Specialty Diagnoses / Procedures Referred By Catherine michel Referred To Contact Cardiac Surg Diagnoses Coronary artery disease involving [place] coronary artery of [place] heart with angina pectoris (HCC) PAD (peripheral artery disease) (HCC) S/P insertion of iliac artery stent Current smoker Primary hypertension Coronary angioplasty status Procedures CARDIOTHORACIC PREOP EVALUATION OFFICE/OUTPATIENT [facility] HIGH MDM 60-74 MINUTES Willem Suarez MD [address] [place] [address] Referral ID Status Reason Start Date Expiration Date Visits Requested Visits Authorized [id number] Authorized PCP Requested Referral 3 06/02/2024 1 1 [facility] for referral (narrative)* Outpatient Procedure (Routine) - Pending Review Specialty Diagnoses / Procedures Referred By Catherine michel Referred To Contact [facility] Diagnoses Surgery follow-up Procedures ECG COMPLETE ECG ROUTINE ECG W/LEAST 12 LDS W/I&R Willem Suarez MD [address] [facility] [place] [address] [facility] V[facility] [place] [address] [facility] [place] [address] Referral ID Status Reason Start Date Expiration Date Visits Requested Visits Authorized [id number] Pending Review Auto-Generat ed Referral 08/01/2023 07/31/2024 1 1 [facility] for referral (narrative)* Outpatient Procedure (Routine) - Pending Review Specialty Diagnoses / Procedures Referred By Catherine michel Referred To Contact [facility] Diagnoses Coronary artery disease of [place] artery of [place] heart with stable angina pectoris (HCC) SOB (shortness of breath) PAD (peripheral artery disease) (HCC) TIA (transient ischemic attack) Procedures ECG COMPLETE ECG ROUTINE ECG W/LEAST 12 LDS W/I&R Shanice Larsen MD [address] [place] [address] [address] Referral ID Status Reason Start Date Expiration Date Visits Requested Visits Authorized [id number] Pending Review Auto-Generat ed Referral 10/10/2023 10/09/2024 1 1 * Transition of Care (Routine) - Ref Not Required Specialty Diagnoses / Procedures Referred By Contac t Referred To Contact [facility] Diagnoses Coronary artery disease of [place] artery of [place] heart with stable angina pectoris (HCC) SOB (shortness of breath) PAD (peripheral artery disease) (HCC) TIA (transient ischemic attack) Procedures CARDIOVASCULAR MEDICINE [place] [address] [place] [address] [place] [address] Referral ID Status Reason Start Date Expiration Date Visits Requested Visits Authorized [id number] Ref Not Required PCP Requested Referral 01/09/2024 10/09/2024 1 1 [facility] for referral (narrative)* Outpatient Procedure (Routine) - Pending Review Specialty Diagnoses / Procedures Referred By Contac t Referred To [facility] Diagnoses Atherosclerosis of [place] arteries of extremities with rest pain, bilateral legs (HCC) Procedures PVR LEG [facility] NON-INVASIVE PHYSIOLOGIC STUDY EXTREMITY 3 Papa Hernandez MD [address] [place] [id number] [place] [address] Referral ID Status Reason Start Date Expiration Date Visits Requested Visits Authorized [id number] Pending Review Auto-Generat ed Referral 01/03/2024 01/02/2025 1 1 [facility] for referral (narrative)* Outpatient Procedure (Routine) - New Request Specialty Diagnoses / Procedures Referred By Contac t Referred To Contact [facility] Diagnoses Pathological fracture of sternum with malunion Coronary artery disease of [place] artery of [place] heart with stable angina pectoris (HCC) Procedures ECG COMPLETE ECG ROUTINE ECG W/LEAST 12 LDS W/I&R Shanice Larsen MD [address] [place] [address] [facility] [place] [address] [place] [address] Referral ID Status Reason Start Date Expiration Date Visits Requested Visits Authorized [id number] New Request Auto-Generat ed Referral 04/08/2025 1 1 * Transition of Care (Routine) - Ref Not Required Specialty Diagnoses / Procedures Referred By Contcj t Referred To Contact [facility] Procedures CARDIOVASCULAR MEDICINE OP FOLLOW UP APPT ORDER Shanice Larsen MD [address] [place] [address] [address] Referral ID Status Reason Start Date Expiration Date Visits Requested Visits Authorized [id number] Ref Not Required PCP Requested Referral 10/07/2024 04/08/2025 1 1 [facility] Summary Purpose Family History No Family History [...] on File Type Date Recorded 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 anation Advance Directive(s) 07/17/2023 1:14 PM Documents on File Type Date Recorded 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 anation Advance Directive(s) 07/17/2023 1:14 PM Chief Complaint and Reason for Visit Chief Complaint Abnormal Stress Test Chief Complaint Abnormal Stress Test Abnormal Stress Test Reason for Referral Specialty Diagnoses / Procedures Referred By Lanceac t Referred To Contact CT IMAGING Diagnoses Peripheral vascular disease (HCC) Diminished pulses in lower extremity PAD (peripheral artery disease) (HCC) Procedures CTA ABD/PEL LOWER EXTREM WO/W IVCON CTA ABDL AORTA&BI ILIOFEM W/CONTRAST&POSTP Papa Santiago MD [address] [place] [address] Ct Imaging [place] [address] Referral ID Status Reason Start Date Expiration Date Visits Requested Visits Authorized [id number] Pending Review Auto-Generat ed Referral 04/28/2024 05/28/2025 1 1 Specialty Diagnoses / Procedures Referred By Lanceac t Referred To Contact [facility] Diagnoses Peripheral vascular disease (HCC) Diminished pulses in lower extremity PAD (peripheral artery disease) (HCC) Procedures PVR ANK PRESS [facility] NON-INVAS PHYSIOLOGIC STD EXTREMITY ART 2 LEVEL Papa Santiago MD [address] [place] [address] [facility] [place] [address] [place] [address] Referral ID Status Reason Start Date Expiration Date Visits Requested Visits Authorized [id number] Pending Review Auto-Generat ed Referral 04/28/2024 04/28/2025 1 1 Specialty Diagnoses / Procedures [facility] Diagnoses Coronary artery disease of [place] artery of [place] heart with stable angina pectoris (HCC) PAD (peripheral artery disease) (HCC) Primary hypertension Hyperlipidemia, unspecified hyperlipidemia type Procedures CT CHEST WO IVCON DIAGNOSTIC COMPUTED TOMOGRAPHY THORAX W/O Shanice Patton MD [address] [place] [id number] Imaging [facility] Referral ID Status Reason Start Date Expiration Date Visits Requested Visits Authorized [id number] Pending Review Auto-Generat ed Referral 01/16/2024 02/14/2025 1 1 Specialty Diagnoses / Procedures Referred By Contac t Referred To Contact [facility] Diagnoses Coronary artery disease of [place] artery of [place] heart with stable angina pectoris (HCC) PAD (peripheral artery disease) (HCC) Primary hypertension Hyperlipidemia, unspecified hyperlipidemia type Procedures ECG COMPLETE ECG ROUTINE ECG W/LEAST 12 LDS W/I&R Shanice Larsen MD [address] [place] [address] [place] [address] Referral ID Status Reason Start Date Expiration Date Visits Requested Visits Authorized [id number] New Request Auto-Generat ed Referral 01/16/2024 01/15/2025 1 1 Specialty Diagnoses / Procedures Referred By Contac t Referred To Contact [facility] Diagnoses Coronary artery disease of [place] artery of [place] heart with stable angina pectoris (HCC) PAD (peripheral artery disease) (HCC) Primary hypertension Hyperlipidemia, unspecified hyperlipidemia type Procedures CARDIOVASCULAR MEDICINE OP FOLLOW UP APPT ORDER Shanice Larsen MD [address] [place] [phone] [place] [address] Referral ID Status Reason Start Date Expiration Date Visits Requested Visits Authorized [id number] Ref Not Required PCP Requested Referral 07/18/2024 01/15/2025 1 1 Specialty Diagnoses / Procedures Referred By Contac t Referred To Contact CT IMAGING Diagnoses Lung nodule Procedures CT CHEST WO IVCON DIAGNOSTIC COMPUTED TOMOGRAPHY THORAX W/O CNTRST Gloria Callahan MD [facility] [place] [id number] Imaging [facility] Referral ID Status Reason Start Date Expiration Date Visits Requested Visits Authorized [id number] Pending Review Auto-Generat ed Referral 10/21/2023 11/19/2024 1 1 Specialty Diagnoses / Procedures Referred By Catherine michel Referred To Contact Procedures CARDIOVASCULAR MEDICINE OP FOLLOW UP APPT ORDER Shanice Larsen MD [address] [place] [address] Referral ID Status Reason Start Date Expiration Date Visits Requested Visits Authorized [id number] Ref Not Required PCP Requested Referral 05/28/2023 05/27/2024 1 1 Specialty Diagnoses / Procedures Referred By Catherine michel Referred To Contact Cardiothoracic Surgery Diagnoses Coronary artery disease involving [place] coronary artery without angina pectoris, unspecified whether [place] or transplanted heart Procedures CONSULT TO CARDIOTHORACIC SURGERY Shanice Larsen MD [address] [place] [address] Referral ID Status Reason Start Date Expiration Date Visits Requested Visits Authorized [id number] Ref Not Required PCP Requested Referral 05/26/2023 [...] section and content) DATE CREATED AUTHOR 07/19/2022 [facility] DATE CREATED AUTHOR AUTHOR'S ORGANIZ ATION 07/20/2022 [facility] DATE CREATED AUTHOR AUTHOR'S ORGANIZ ATION 10/07/2022 [facility] DATE CREATED AUTHOR AUTHOR'S ORGANIZ ATION 04/03/2023 [facility] DATE CREATED AUTHOR AUTHOR'S ORGANIZ ATION 06/11/2023 [facility] DATE CREATED AUTHOR AUTHOR'S ORGANIZ ATION 10/03/2023 [facility] DATE CREATED AUTHOR AUTHOR'S ORGANIZ ATION 12/30/2023 [facility] EPIC DATE CREATED AUTHOR AUTHOR'S ORGANIZ ATION 04/29/2024 [facility] Care Teams (unrecognized sec tion and content) Team Status: Active Member Role Status Dates Nano Nguyen MD Primary Care Provider Active Team Status: Inactive Member Role Status Dates Patrizia Melendrez MD Attending Provider Active Nano Nguyen MD Primary Care Provider Active Electroplater Automatic Relationship Specialty Start Date End Date Shanice Larsen MD [address] [place] [address] Primary Staff Physician Cardiology 04/03/23 Electroplater Automatic Relationship Specialty Start Date End Date Shanice Larsen MD [address] [place] [address] Primary Staff Physician Cardiology 04/03/23 Electroplater Automatic Relationship Specialty Start Date End Date Shanice Larsen MD [address] [place] [address] Primary Staff Physician Cardiology 04/03/23 Electroplater Automatic Relationship Specialty Start Date End Date Shanice Larsen MD [address] [place] [address] Primary Staff Physician Cardiology 04/03/23 Electroplater Automatic Relationship Specialty Start Date End Date Shanice Larsen MD [address] [place] [address] Primary Staff Physician Cardiology 04/03/23 Willem Suarez MD [address] [place] [address] Surgeon Cardiac Surg 05/30/23 Electroplater Automatic Relationship Specialty Start Date End Date Shanice Larsen MD [address] [place] [address] Primary Staff Physician Cardiology 04/03/23 Willem Suarez MD [address] [place] [address] Surgeon Cardiac Surg 05/30/23 Electroplater Automatic Relationship Specialty Start Date End Date Nano Nguyen MD [address] [place] [phone] PCP - General Family Medicine 06/14/23 Shanice Larsen MD Primary Staff Physician Cardiology 04/03/23 Willem Suarez MD [address] [place] [phone] Surgeon Cardiac Surg 05/30/23 Electroplater Automatic Relationship Specialty Start Date End Date Nano Nguyen MD [address] [place] [address] PCP - General Family Medicine 06/14/23 Shanice Larsen MD Primary Staff Physician Cardiology 04/03/23 Willem Suarez MD [address] [facility] [place] [address] Surgeon Cardiac Surg 05/30/23 Electroplater Automatic Relationship Specialty Start Date End Date Nano Nguyen MD [address] [place] [address] PCP - General Family Medicine 06/14/23 Shanice Larsen MD Primary Staff Physician Cardiology 04/03/23 Willem Suarez MD [address] [place] [address] Surgeon Cardiac Surg 05/30/23 Electroplater Automatic Relationship Specialty Start Date End Date Nano Nguyen MD [address] [place] [address] PCP - General Family Medicine 06/14/23 Shanice Larsen MD Primary Staff Physician Cardiology 04/03/23 Willem Suarez MD [address] [place] [address] Surgeon Cardiac Surg 05/30/23 Electroplater Automatic Relationship Specialty Start Date End Date Nano Nguyen MD [address] [place] [address] PCP - General Family Medicine 06/14/23 Shanice Larsen MD Primary Staff Physician Cardiology 04/03/23 Willem Suarez MD [address] [place] [address] Surgeon Cardiac Surg 05/30/23 Electroplater Automatic Relationship Specialty Start Date End Date Nano Nguyen MD [address] [place] [address] PCP - General Family Medicine 06/14/23 Shanice Larsen MD Primary Staff Physician Cardiology 04/03/23 Willem Suarez MD [address] [place] [address] Surgeon Cardiac Surg 05/30/23 Electroplater Automatic Relationship Specialty Start Date End Date Nano Nguyen MD [address] [place] [address] PCP - General Family Medicine 06/14/23 Shanice Larsen MD Primary Staff Physician Cardiology 04/03/23 Willem Suarez MD [address] [facility] [place] [place] [address] Surgeon Cardiac Surg 05/30/23 Electroplater Automatic Relationship Specialty Start Date End Date Nano Nguyen MD [address] [place] [address] PCP - General Family Medicine 06/14/23 Shanice Larsen MD Primary Staff Physician Cardiology 04/03/23 Willem Suarez MD [address] [place] [address] Surgeon Cardiac Surg 05/30/23 Electroplater Automatic Relationship Specialty Start Date End Date Nano Nguyen MD [address] [place] [address] PCP - General Family Medicine 06/14/23 Shanice Larsen MD Primary Staff Physician Cardiology 04/03/23 Willem Suarez MD [address] [place] [address] Surgeon Cardiac Surg 05/30/23 Electroplater Automatic Relationship Specialty Start Date End Date Nano Nguyen MD [address] [place] [address] PCP - General Family Medicine 06/14/23 Shanice Larsen MD Primary Staff Physician Cardiology 04/03/23 Willem Suarez MD [address] [facility] [place] [address] Surgeon Cardiac Surg 05/30/23 Electroplater Automatic Relationship Specialty Start Date End Date Nano Nguyen MD [address] [place] [address] PCP - General Family Medicine 06/14/23 Shanice Larsen MD Primary Staff Physician Cardiology 04/03/23 Willem Suarez MD [address] [place] [address] Surgeon Cardiac Surg 05/30/23 Electroplater Automatic Relationship Specialty Start Date End Date Nano Nguyen MD [address] [place] [address] PCP - General Family Medicine 06/14/23 Shanice Larsen MD Primary Staff Physician Cardiology 04/03/23 Willem Suarez MD [address] [place] [address] Surgeon Cardiac Surg 05/30/23 Electroplater Automatic Relationship Specialty Start Date End Date Nano Nguyen MD [address] [place] [address] PCP - General Family Medicine 06/14/23 Shanice Larsen MD Primary Staff Physician Cardiology 04/03/23 Willem Suarez MD [address] [facility] [place] [id number] Surgeon Cardiac Surg 05/30/23 Electroplater Automatic Relationship Specialty Start Date End Date Nano Nguyen MD [address] [place] [address] PCP - General Family Medicine 06/14/23 Shanice Larsen MD Primary Staff Physician Cardiology 04/03/23 Willem Suarez MD [address] [place] [address] Surgeon Cardiac Surg 05/30/23 Electroplater Automatic Relationship Specialty Start Date End Date Nano Nguyen MD [address] [place] [address] PCP - General Family Medicine 06/14/23 Shanice Larsen MD Primary Staff Physician Cardiology 04/03/23 Willem Suarez MD [address] [facility] [place] [address] Surgeon Cardiac Surg 05/30/23 Electroplater Automatic Relationship Specialty Start Date End Date Nano Nguyen MD [address] [place] [address] PCP - General Family Medicine 06/14/23 Shanice Larsen MD Primary Staff Physician Cardiology 04/03/23 Willem Suarez MD [address] [facility] [place] [address] Surgeon Cardiac Surg 05/30/23 Electroplater Automatic Relationship Specialty Start Date End Date Nano Nguyen MD [address] [place] [address] PCP - General Family Medicine 06/14/23 Shanice Larsen MD Primary Staff Physician Cardiology 04/03/23 Willem Suarez MD [address] [facility] [place] [address] Surgeon Cardiac Surg 05/30/23 Electroplater Automatic Relationship Specialty Start Date End Date aNno Nguyen MD [address] [place] [address] PCP - General Family Medicine 06/14/23 Shanice Larsen MD Primary Staff Physician Cardiology 04/03/23 Willem Suarez MD [address] [place] [address] Surgeon Cardiac Surg 05/30/23 Electroplater Automatic Relationship Specialty Start Date End Date Nano Nguyen MD [address] [place] [address] PCP - General Family Medicine 06/14/23 Shanice Larsen MD Primary Staff Physician Cardiology 04/03/23 Willem Suarez MD [address] [place] [address] Surgeon Cardiac Surg 05/30/23 Electroplater Automatic Relationship Specialty Start Date End Date Nano Nguyen MD [address] [place] [address] PCP - General Family Medicine 06/14/23 Shanice Larsen MD Primary Staff Physician Cardiology 04/03/23 Willem Suarez MD [address] [place] [address] Surgeon Cardiac Surg 05/30/23 Electroplater Automatic Relationship Specialty Start Date End Date Nano Nguyen MD [address] [place] [address] PCP - General Family Medicine 06/14/23 Shanice Larsen MD Primary Staff Physician Cardiology 04/03/23 Willem Suarez MD [address] [place] [address] Surgeon Cardiac Surg 05/30/23 Electroplater Automatic Relationship Specialty Start Date End Date Nano Nguyen MD [address] [place] [address] PCP - General Family Medicine 06/14/23 Shanice Larsen MD Primary Staff Physician Cardiology 04/03/23 Willem Suarez MD [address] [place] [address] Surgeon Cardiac Surg 05/30/23 Goals (unrecognized section [...] Referred By Catherine michel Referred To Contact ADMITTING Diagnoses Coronary artery disease involving [place] coronary artery of [place] heart with angina pectoris (HCC) Type 2 diabetes mellitus without complication, without long-term current use of insulin (HCC) Procedures CORONARY ARTERY BYP W/VEIN & ARTERY GRAFT 1 VEIN BYPASS GRAFT ARTERY CORONARY ON-PUMP USING VENOUS GRAFT(S) AND ARTERIAL GRAFT(S) SINGLE VEIN GRAFT [facility] [address] [place] [address] Referral ID Status Reason Start Date Expiration Date Visits Re quested Visits Authorized [id number] 1 1 Reason Comments Radio Main J1 Specialty Diagnoses / Procedures Referred By Catherine michel Referred To Contact ADMITTING Diagnoses Coronary artery disease involving [place] coronary artery of [place] heart with angina pectoris (HCC) Type 2 diabetes mellitus without complication, without long-term current use of insulin (HCC) Procedures CORONARY ARTERY BYP W/VEIN & ARTERY GRAFT 1 VEIN BYPASS GRAFT ARTERY CORONARY ON-PUMP USING VENOUS GRAFT(S) AND ARTERIAL GRAFT(S) SINGLE VEIN GRAFT [facility] [address] [place] [address] Reason Comments Follow Up Phone Call RC follow up call a ll clear. Reason Comments Appointment Reason Comments dental clearance Specialty Diagnoses / Procedures Referred By Contac t Referred To Contact CT IMAGING Diagnoses Lung nodule Procedures CT CHEST WO IVCON DIAGNOSTIC COMPUTED TOMOGRAPHY THORAX W/O CNTRST Gloria Callahan MD [address] [place] [address] Ct Imaging [place] [address] Referral ID Status Reason Start Date Expiration Date V isits Requested Visits Authorized [id number] Closed Auto-Generate d Referral 09/02/2023 06/23/2024 1 1 Reason Comments Follow Up Shortness of Breath Specialty Diagnoses / Procedures Referred By Contac t Referred To Contact Diagnoses Follow-up exam Procedures CARDIOVASCULAR MEDICINE OP FOLLOW UP APPT ORDER OFFICE/OUTPATIENT ESTABLISHED HIGH MDM 40 MIN Pamela Laws APRN.CERTIFIED SURGICAL TECH/FIRST ASSISTANT [address] [place] [address] Or Main [address] [place] [address] Referral ID Status Reason Start Date Expiration Date V isits Requested Visits Authorized [id number] Closed PCP Requested Referral 10/01/2023 07/01/2024 1 1 Reason Comments Received Outside Medical Records [facility] ECHO REPORT Reason Comments Received Outside Medical Records [facility] Reason Comments Insurance Authorization Repatha SureClic k 140MG/ML auto-injectors Reason Comments Follow Up Specialty Diagnoses / Procedures Referred By Contac t Referred To Contact [facility] Diagnoses Coronary artery disease of [place] artery of [place] heart with stable angina pectoris (HCC) SOB (shortness of breath) PAD (peripheral artery disease) (HCC) TIA (transient ischemic attack) Procedures CARDIOVASCULAR MEDICINE OP FOLLOW UP APPT ORDER Shanice Larsen MD [address] [place] [address] [facility] [address] [facility] [place] [address] Referral ID Status Reason Start Date Expiration Date Visits Requested Visits Authorized [id number] Ref Not Required PCP Requested Referral 01/09/2024 10/09/2024 1 1 Reason Comments Established Patient Specialty Diagnoses / Procedures Referred By Contac t Referred To Contact CT IMAGING Diagnoses Coronary artery disease of [place] artery of [place] heart with stable angina pectoris (HCC) PAD (peripheral artery disease) (HCC) Primary hypertension Hyperlipidemia, unspecified hyperlipidemia type Procedures CT CHEST WO IVCON DIAGNOSTIC COMPUTED TOMOGRAPHY THORAX W/O Shanice Patton MD [address] [place] [address] [place] [address] Referral ID Status Reason Start Date Expiration Date V isits Requested Visits Authorized [id number] Closed Auto-Generate d Referral 2024 06/23/2024 1 1 Reason Comments Results Reason Comments Chest Pain Source Comments (unrecognize d section and content) In the event this informatio n is protected by the Federal Confidentiality of Alcohol and Drug Abuse Patient Records regulations: The Federal rules restrict any use of the information to criminally investigate or prosecute any alcohol or drug abuse patient.[facility] the event this information is protected by the Federal Confidentiality of Alcohol and Drug Abuse Patient Records regulations: The Federal rules restrict any use of the information to criminally investigate or prosecute any alcohol or drug abuse patient.[facility] HospitalIn the event this information is protected by the Federal Confidentiality of Alcohol and Drug Abuse Patient Records regulations: The Federal rules restrict any use of the information to criminally investigate or prosecute any alcohol or drug abuse patient.[facility] HospitalIn the event this information is protected by the Federal Confidentiality of Alcohol and Drug Abuse Patient Records regulations: The Federal rules restrict any use of the information to criminally investigate or prosecute any alcohol or drug abuse patient.[facility] HospitalIn the event this information is protected by the Federal Confidentiality of Alcohol and Drug Abuse Patient Records regulations: The Federal rules restrict any use of the information to criminally investigate or prosecute any alcohol or drug abuse patient.[facility] HospitalIn the event this information is protected by the Federal Confidentiality of Alcohol and Drug Abuse Patient Records regulations: The Federal rules restrict any use of the information to criminally investigate or prosecute any alcohol or drug abuse patient.[facility] HospitalIn the event this information is protected by the Federal Confidentiality of Alcohol and Drug Abuse Patient Records regulations: The Federal rules restrict any use of the information to criminally investigate or prosecute any alcohol or drug abuse patient.[facility] HospitalIn the event this information is protected by the Federal Confidentiality of Alcohol and Drug Abuse Patient Records regulations: The Federal rules restrict any use of the information to criminally investigate or prosecute any alcohol or drug abuse patient.[facility] HospitalIn the event this information is protected by the Federal Confidentiality of Alcohol and Drug Abuse Patient Records regulations: The Federal rules restrict any use of the information to criminally investigate or prosecute any alcohol or drug abuse patient.[facility] HospitalIn the event this information is protected by the Federal Confidentiality of Alcohol and Drug Abuse Patient Records regulations: The Federal rules restrict any use of the information to criminally investigate or prosecute any alcohol or drug abuse patient.[facility] HospitalIn the event this information is protected by the Federal Confidentiality of Alcohol and Drug Abuse Patient Records regulations: The Federal rules restrict any use of the information to criminally investigate or prosecute any alcohol or drug abuse patient.[facility] HospitalIn the event this information is protected by the Federal Confidentiality of Alcohol and Drug Abuse Patient Records regulations: The Federal rules restrict any use of the information to criminally investigate or prosecute any alcohol or drug abuse patient.[facility] HospitalIn the event this information is protected by the Federal Confidentiality of Alcohol and Drug Abuse Patient Records regulations: The Federal rules restrict any use of the information to criminally investigate or prosecute any alcohol or drug abuse patient.[facility] HospitalIn the event this information is protected by the Federal Confidentiality of Alcohol and Drug Abuse Patient Records regulations: The Federal rules restrict any use of the information to criminally investigate or prosecute any alcohol or drug abuse patient.[facility] HospitalIn the event this information is protected by the Federal Confidentiality of Alcohol and Drug Abuse Patient Records regulations: The Federal rules restrict any use of the information to criminally investigate or prosecute any alcohol or drug abuse patient.[facility] HospitalIn the event this information is protected by the Federal Confidentiality of Alcohol and Drug Abuse Patient Records regulations: The Federal rules restrict any use of the information to criminally investigate or prosecute any alcohol or drug abuse patient.[facility] HospitalIn the event this information is protected by the Federal Confidentiality of Alcohol and Drug Abuse Patient Records regulations: The Federal rules restrict any use of the information to criminally investigate or prosecute any alcohol or drug abuse patient.[facility] HospitalIn the event this information is protected by the Federal Confidentiality of Alcohol and Drug Abuse Patient Records regulations: The Federal rules restrict any use of the information to criminally investigate or prosecute any alcohol or drug abuse patient.[facility] HospitalIn the event this information is protected by the Federal Confidentiality of Alcohol and Drug Abuse Patient Records regulations: The Federal rules restrict any use of the information to criminally investigate or prosecute any alcohol or drug abuse patient.[facility] HospitalIn the event this information is protected by the Federal Confidentiality of Alcohol and Drug Abuse Patient Records regulations: The Federal rules restrict any use of the information to criminally investigate or prosecute any alcohol or drug abuse patient.[facility] HospitalIn the event this information is protected by the Federal Confidentiality of Alcohol and Drug Abuse Patient Records regulations: The Federal rules restrict any use of the information to criminally investigate or prosecute any alcohol or drug abuse patient.[facility] HospitalIn the event this information is protected by the Federal Confidentiality of Alcohol and Drug Abuse Patient Records regulations: The Federal rules restrict any use of the information to criminally investigate or prosecute any alcohol or drug abuse patient.[facility] HospitalIn the event this information is protected by the Federal Confidentiality of Alcohol and Drug Abuse Patient Records regulations: The Federal rules restrict any use of the information to criminally investigate or prosecute any alcohol or drug abuse patient.[facility] HospitalIn the event this information is protected by the Federal Confidentiality of Alcohol and Drug Abuse Patient Records regulations: The Federal rules restrict any use of the information to criminally investigate or prosecute any alcohol or drug abuse patient.[facility] HospitalIn the event this information is protected by the Federal Confidentiality of Alcohol and Drug Abuse Patient Records regulations: The Federal rules restrict any use of the information to criminally investigate or prosecute any alcohol or drug abuse patient.[facility] HospitalIn the event this information is protected by the Federal Confidentiality of Alcohol and Drug Abuse Patient Records regulations: The Federal rules restrict any use of the information to criminally investigate or prosecute any alcohol or drug abuse patient.[facility] HospitalIn the event this information is protected by the Federal Confidentiality of Alcohol and Drug Abuse Patient Records regulations: The Federal rules restrict any use of the information to criminally investigate or prosecute any alcohol or drug abuse patient.[facility] HospitalIn the event this information is protected by the Federal Confidentiality of Alcohol and Drug Abuse Patient Records regulations: The Federal rules restrict any use of the information to criminally investigate or prosecute any alcohol or drug abuse patient.[facility] HospitalIn the event this information is protected by the Federal Confidentiality of Alcohol and Drug Abuse Patient Records regulations: The Federal rules restrict any use of the information to criminally investigate or prosecute any alcohol or drug abuse patient.[facility] HospitalIn the event this information is protected by the Federal Confidentiality of Alcohol and Drug Abuse Patient Records regulations: The Federal rules restrict any use of the information to criminally investigate or prosecute any alcohol or drug abuse patient.[facility] HospitalIn the event this information is protected by the Federal Confidentiality of Alcohol and Drug Abuse Patient Records regulations: The Federal rules restrict any use of the information to criminally investigate or prosecute any alcohol or drug abuse patient.[facility] HospitalIn the event this information is protected by the Federal Confidentiality of Alcohol and Drug Abuse Patient Records regulations: The Federal rules restrict any use of the information to criminally investigate or prosecute any alcohol or drug abuse patient.[facility] HospitalIn the event this information is protected by the Federal Confidentiality of Alcohol and Drug Abuse Patient Records regulations: The Federal rules restrict any use of the information to criminally investigate or prosecute any alcohol or drug abuse patient.[facility] HospitalIn the event this information is protected by the Federal Confidentiality of Alcohol and Drug Abuse Patient Records regulations: The Federal rules restrict any use of the information to criminally investigate or prosecute any alcohol or drug abuse patient.[facility] HospitalIn the event this information is protected by the Federal Confidentiality of Alcohol and Drug Abuse Patient Records regulations: The Federal rules restrict any use of the information to criminally investigate or prosecute any alcohol or drug abuse patient.[facility] HospitalIn the event this information is protected by the Federal Confidentiality of Alcohol and Drug Abuse Patient Records regulations: The Federal rules restrict any use of the information to criminally investigate or prosecute any alcohol or drug abuse patient.[facility] HospitalIn the event this information is protected by the Federal Confidentiality of Alcohol and Drug Abuse Patient Records regulations: The Federal rules restrict any use of the information to criminally investigate or prosecute any alcohol or drug abuse patient.[facility] HospitalIn the event this information is protected by the Federal Confidentiality of Alcohol and Drug Abuse Patient Records regulations: The Federal rules restrict any use of the information to criminally investigate or prosecute any alcohol or drug abuse patient.[facility] HospitalIn the event this information is protected by the Federal Confidentiality of Alcohol and Drug Abuse Patient Records regulations: The Federal rules restrict any use of the information to criminally investigate or prosecute any alcohol or drug abuse patient.[facility] HospitalIn the event this information is protected by the Federal Confidentiality of Alcohol and Drug Abuse Patient Records regulations: The Federal rules restrict any use of the information to criminally investigate or prosecute any alcohol or drug abuse patient.[facility] HospitalIn the event this information is protected by the Federal Confidentiality of Alcohol and Drug Abuse Patient Records regulations: The Federal rules restrict any use of the information to criminally investigate or prosecute any alcohol or drug abuse patient.[facility] FOR RECORDS PERTAINING TO PATIENTS WHO [...] BE BASED ON THE PRIMARY CLINICAL RECORDS. [employer] [facility]. provides no warranty or guarantee of the accuracy or completeness of information in this document.
--- NOTE | 2024-05-02 11:20 | ED_ITS ---
HPI HPI - General Adult General Chief complaint: Abdominal Pain Stated complaint: VOMITING, ABDOMINAL PAIN Time Seen by Provider: 05/02/24 11:11 Source: patient Mode of arrival: walk-in Limitations: no limitations History of Present Illness HPI narrative: 64-year-old female presents to the emergency department for nausea and vomiting and not being able to eat and drink. It started 2 days ago. She has had issues like this in the past and she felt somewhat better after she took Protonix. No fever or hematemesis. She is not seemingly complaining of abdominal pain either. Related Data Home Medications ?Medication ?Instructions ?Recorded ?Confirmed albuterol sulfate 90 mcg/actuation 2 puff inhalation Q6H PRN 03/31/23 05/02/24 aerosol inhaler (Ventolin HFA) shortness of breath or wheezing clopidogrel 75 mg tablet 75 mg PO DAILY 03/31/23 05/02/24 dulaglutide 0.75 mg/0.5 mL 0.75 mg subcut .weekly 03/31/23 05/02/24 subcutaneous pen injector (Trulicity) empagliflozin 10 mg tablet 10 mg PO DAILY 03/31/23 05/02/24 (Jardiance) ezetimibe 10 mg tablet 10 mg PO DAILY 03/31/23 05/02/24 metformin 1,000 mg tablet 1,000 mg PO BID 03/31/23 05/02/24 venlafaxine 75 mg capsule,extended 75 mg PO DAILY 03/31/23 05/02/24 release 24 hr calcium carbonate 500 mg PO DAILY 09/26/23 05/02/24 metoprolol succinate 50 mg 25 mg PO BID 09/26/23 05/02/24 tablet,extended release 24 hr carvedilol 25 mg tablet 12.5 mg PO BID 05/02/24 05/02/24 clopidogrel 75 mg tablet (Plavix) 75 mg PO DAILY 05/02/24 05/02/24 ibuprofen 800 mg tablet 800 mg PO Q6H 05/02/24 05/02/24 rosuvastatin 5 mg tablet 5 mg PO DAILY 05/02/24 05/02/24 Previous Rx's ?Medication ?Instructions ?Recorded ondansetron 4 mg disintegrating 4 mg PO Q6H PRN nausea and 03/31/23 tablet vomiting #20 tabs aspirin 81 mg chewable tablet 325 mg (4.0123 x 81 mg) PO DAILY 09/27/23 #30 tabs lisinopril 20 mg tablet 20 mg PO QD #30 tabs 09/27/23 Allergies Allergy/AdvReac Type Severity Reaction Status Date / Time Tetracyclic Antidepressants AdvReac Severe Vomiting Verified 05/02/24 11:11 Opioid HPI Opioid Management Most Recent Opioid Data: Last Pain Scale 7 04/04/24 13:09 04/04/24 Last ORT Total Score 1 09/26/23 17:09 09/26/23 Last ORT Risk Category Low Risk 09/26/23 17:09 09/26/23 Review of Systems ROS Narrative A ten point review of systems is negative except as noted above. [facility] Medical History (Updated 05/02/24 @ 15:59 by Asael Stephen MD) Stroke ?I63.9 - Cerebral infarction, unspecified (ICD-10) Abdominal pain ?R10.9 - Unspecified abdominal pain (ICD-10) Nausea & vomiting ?R11.2 - Nausea with vomiting, unspecified (ICD-10) Blood clot in leg Retinopathy ?H35.00 - Unspecified background retinopathy (ICD-10) Hypertension ?I10 - Essential (primary) hypertension (ICD-10) Hyperlipidemia ?E78.5 - Hyperlipidemia, unspecified (ICD-10) Diabetes ?E11.9 - Type 2 diabetes mellitus without complications (ICD-10) Surgical History (Updated 09/26/23 @ 16:55 by Cindy Mejia) H/O tubal ligation ?Z98.51 - Tubal ligation status (ICD-10) Hx of adenoidectomy ?Z90.89 - Acquired absence of other organs (ICD-10) Hx of tonsillectomy ?Z90.89 - Acquired absence of other organs (ICD-10) Carpal tunnel syndrome, bilateral ?G56.03 - Carpal tunnel syndrome, bilateral upper limbs (ICD-10) History of quadruple bypass ?Z95.1 - Presence of aortocoronary bypass graft (ICD-10) Family History (Updated 09/26/23 @ 16:57 by Cindy Mejia) Brother Family history of cancer Grandmother Family history of diabetes mellitus Father Family history of diabetes mellitus Family history of hypertension Family history of myocardial infarction Mother Family history of hypertension Family history of myocardial infarction Social History (Updated 09/26/23 @ 17:01 by Cindy Mejia) Within the past year, how often did you have a drink containing alcohol: 2-3 times a week Within the past year, how many standard drinks containing alcohol did you have on a typical day: 1 or 2 Within the past year, how often did you have six or more drinks on one occasion: never Total score: 0 Score interpretation: Questions 2 and 3 are 0. It can be assumed that the patient's drinking is below the recommended limits. However, please confirm the accuracy of the patient's alcohol intake over the last few months. Smoking status: Current every day smoker Non-prescribed substance use: cannabis (any form) Previous occupational history: retired Highest level of school completed/degree received: some college, no degree Are you now , , , , never or living with a partner: never In a typical week, how many times do you talk on the telephone with family, friends, or neighbors: 3 or more times per week How often do you get together with friends or relatives: 3 or more times per week How often do you attend nondenominational or adventist services: 4 or more times per year Do you belong to any clubs or organizations such as nondenominational groups unions, fraternal or athletic groups, or school groups: no Total score: 2 Score interpretation: A score of greater than or equal to 2 indicates the lowest level of social isolation. Little interest or pleasure in doing things: not at all Feeling down, depressed, or hopeless: not at all Feel stressed/tense/nervous/anxious/difficulty sleeping: only a little Exam Narrative Exam Narrative: Nurses note and vital signs reviewed and patient is not hypoxic. General: The patient appears in no apparent distress. Patient is resting comfortably on cart. Skin: Warm, dry, no pallor noted. There is no rash noted. Head: Normocephalic, atraumatic Eye: Normal conjunctiva, no drainage Ears, Nose, Mouth, and Throat: oral mucosa is moist. Nares patent. Cardiovascular: Regular Rate and Rhythm Respiratory: Patient is in no distress, no accessory muscle use, lungs are clear to auscultation, no wheezing, rales or rhonchi Back: non-tender GI: Soft and nontender nondistended Musculoskeletal: The patient has no evidence of calf tenderness, no pitting edema, symmetrical pulses noted bilaterally Neurological: A&O, normal speech Psychiatric: Cooperative Constitutional Vital Signs, click to edit/add: Last Vital Signs Temp 97.8 F 05/02/24 11:11 Pulse 120 H 05/02/24 15:08 Resp 18 05/02/24 15:08 BP 133/60 05/02/24 15:08 Pulse Ox 96 05/02/24 15:08 O2 Del Method Room Air 05/02/24 11:11 Course Vital Signs Vital signs: Vital Signs Temperature 97.8 F 05/02/24 11:11 Pulse Rate 125 H 05/02/24 11:11 Respiratory Rate 20 05/02/24 11:11 Blood Pressure 171/100 H 05/02/24 11:11 Pulse Oximetry 100 05/02/24 11:11 Oxygen Delivery Method Room Air 05/02/24 11:11 Temperature 97.8 F 05/02/24 11:11 Pulse Rate 120 H 05/02/24 15:08 Respiratory Rate 18 05/02/24 15:08 Blood Pressure 133/60 05/02/24 15:08 Pulse Oximetry 96 05/02/24 15:08 Oxygen Delivery Method Room Air 05/02/24 11:11 Medical Decision Making MDM Narrative Medical decision making narrative: Her workup including CT of the abdomen and blood work is negative. She is feeling improved and is able to be discharged home. Treatment diagnosis and follow-up were discussed with the patient. Differential Diagnosis Differential Diagnosis: Nausea and vomiting, small bowel obstruction, gastritis Lab Data Lab results reviewed: Yes I reviewed the patient's lab results Labs: Lab Results 05/02/24 Range/Units 11:27 WBC 16.7 H (4.0-11.0) 10^3/uL RBC 5.59 H (4.20-5.40) 10^6/uL Hgb 17.5 H (12.0-16.0) g/dL Hct 49.4 H (36.0-48.0) % MCV 88.4 (81.0-99.0) fL MCH 31.3 (26.7-34.0) pg MCHC 35.4 H (29.9-35.2) g/dL RDW 11.8 (11.0-15.0) % Plt Count 377 (150-450) 10^3/uL MPV 9.3 L (9.5-13.5) fL Neut % (Auto) 79.3 H (43.0-75.0) % Lymph % (Auto) 12.2 L (20.5-60.0) % Mcmullen % (Auto) 7.7 (1.7-12.0) % Eos % (Auto) 0.1 L (0.9-7.0) % Baso % (Auto) 0.2 (0.2-2.0) % Neut # (Auto) 13.3 H (1.4-6.5) 10^3/uL Lymph # (Auto) 2.0 (1.2-3.8) 10^3/uL Mcmullen # (Auto) 1.3 H (0.3-0.8) 10^3/uL Eos # (Auto) 0.0 (0.0-0.7) 10^3/uL Baso # (Auto) 0.0 (0.0-0.1) 10^3/uL Abs Immat Gran (auto) 0.09 H (0.00-0.03) 10^3/uL Imm/Tot Granulo (auto) 0.5 (0.0-0.5) % Sodium 129 L (136-145) mmol/L Potassium 3.9 (3.5-5.1) mmol/L Chloride 92 L (98-107) mmol/L Carbon Dioxide 22.5 (21.0-32.0) mmol/L Anion Gap 18.4 BUN 27.0 H (7.0-18.0) mg/dL Creatinine 1.16 H (0.55-1.02) mg/dL Est GFR ( Amer) 57 L (>=60 mL/min/1.73m^2) Est GFR (Non-Af Amer) 47 L (>=60 mL/min/1.73m^2) BUN/Creatinine Ratio 23.3 Glucose 209 H (74-106) mg/dL Calcium 11.2 H (8.5-10.1) mg/dL Total Bilirubin 0.9 (0.2-1.0) mg/dL Direct Bilirubin 0.2 (0.0-0.2) mg/dL AST 11 L (15-37) U/L ALT 12 L (14-59) U/L Alkaline Phosphatase 200 H (46-116) U/L Total Protein 7.8 (6.4-8.2) g/dL Albumin 3.7 (3.4-5.0) g/dL Globulin 4.1 g/dL Albumin/Globulin Ratio 0.9 Amylase 60 (25-115) U/L Lipase 29.0 (16.0-77.0) U/L Imaging Data CT scan - abdomen: Radiologist's impression: ITS Impressions Abdomen/Pelvis CT 05/02/24 12:48 IMPRESSION: No acute abdominal or pelvic process. Electronically authenticated by: MATTHEW GAYTAN Date: 05/02/2024 15:30 Discharge Plan Discharge Chief Complaint: Abdominal Pain Clinical Impression: Nausea and vomiting Patient Disposition: Home, Self-Care Time of Disposition Decision: 15:59 Condition: Good Mode of Transportation: Private Vehicle Prescriptions / Home Meds: No Action Trulicity 0.75 mg/0.5 mL pen injector 0.75 mg SUBCUT .weekly ezetimibe 10 mg tablet 10 mg PO DAILY venlafaxine 75 mg capsule,extended release 24hr 75 mg PO DAILY metformin 1,000 mg tablet 1,000 mg PO BID Jardiance 10 mg tablet 10 mg PO DAILY clopidogrel 75 mg tablet 75 mg PO DAILY albuterol sulfate [Ventolin HFA] 90 mcg/actuation HFA aerosol inhaler 2 puff INHALATION Q6H PRN (Reason: shortness of breath or wheezing) ondansetron 4 mg tablet,disintegrating 4 mg PO Q6H PRN (Reason: nausea and vomiting) Qty: 20 0RF calcium carbonate 500 mg calcium (1,250 mg) tablet,chewable 500 mg PO DAILY lisinopril 20 mg Tablet 20 mg PO QD Qty: 30 11RF aspirin 81 mg Tablet,Chewable 325 mg PO DAILY Qty: 30 11RF metoprolol succinate 50 mg tablet extended release 24 hr 25 mg PO BID carvedilol 25 mg tablet 12.5 mg PO BID ibuprofen 800 mg tablet 800 mg PO Q6H rosuvastatin 5 mg tablet 5 mg PO DAILY clopidogrel [Plavix] 75 mg tablet 75 mg PO DAILY Print Language: Welsh Instructions: Acute Nausea and Vomiting (ED) Referrals: Froylan Muhammad MD [Primary Care Provider] - 1 week
[2024-05-02] MEDS: 0.9 % SODIUM CHLORIDE 1,000 ML 1000 ML IV (11:35)
[2024-05-02] MEDS: ONDANSETRON PF 4 MG/2 ML VIAL IV (11:35)
[2024-05-02 11:36] LABS: Basophils Percent Auto 0.2 % (0.2-2.0); Eosinophils Percent Auto 0.1 % (0.9-7.0); Hematocrit 49.4 % (36.0-48.0); Hemoglobin 17.5 g/dL (12.0-16.0); Immature Granulocytes Abs Auto 0.09 10^3/uL (0.00-0.03); Immature Granulocytes Pct Auto 0.5 % (0.0-0.5); Lymphocytes Percent Auto 12.2 % (20.5-60.0); Mean Corpuscular HGB Conc 35.4 g/dL (29.9-35.2); Mean Corpuscular Hemoglobin 31.3 pg (26.7-34.0); Mean Corpuscular Volume 88.4 fL (81.0-99.0); Mean Platelet Volume 9.3 fL (9.5-13.5); Monocytes Absolute Auto 1.3 10^3/uL (0.3-0.8); Monocytes Percent Auto 7.7 % (1.7-12.0); Neutrophils Absolute Auto 13.3 10^3/uL (1.4-6.5); Neutrophils Percent Auto 79.3 % (43.0-75.0); Platelet Count 377 10^3/uL (150-450); Red Blood Count 5.59 10^6/uL (4.20-5.40); Red Cell Distribution Width 11.8 % (11.0-15.0); White Blood Count 16.7 10^3/uL (4.0-11.0)
[2024-05-02 11:51] LABS: Alanine Aminotransferase 12 U/L (14-59); Albumin Globulin Ratio 0.9; Albumin Level 3.7 g/dL (3.4-5.0); Alkaline Phosphatase 200 U/L (46-116); Amylase 60 U/L (25-115); Anion Gap 18.4; Aspartate Amino Transferase 11 U/L (15-37); BUN Creatinine Ratio 23.3; Bilirubin Direct 0.2 mg/dL (0.0-0.2); Bilirubin Total 0.9 mg/dL (0.2-1.0); Calcium 11.2 mg/dL (8.5-10.1); Carbon Dioxide 22.5 mmol/L (21.0-32.0); Chloride 92 mmol/L (98-107); Estimated GFR (African America 57 (>=60 mL/min/1.73m^2); Estimated GFR (Non-African Ame 47 (>=60 mL/min/1.73m^2); Globulin 4.1 g/dL; Glucose 209 mg/dL (74-106); Potassium 3.9 mmol/L (3.5-5.1); Sodium 129 mmol/L (136-145); Total Protein 7.8 g/dL (6.4-8.2)
[2024-05-02 11:56] VITALS: BP 158/88; PULSE 111; O2SAT 99
--- NOTE | 2024-05-02 12:48 | CT_ITS ---
[address] [address] Patient Name: PAULY QUEZADA MRN: [id number] date: 1960 Sex: F Assigned Patient Location: ER Current Patient Location: ER Accession/Order Number: [id number] Exam Date: 05/02/2024 14:00 Report Date: 05/02/2024 15:30 At the request of: ITA ACKERMAN Procedure: CT abdomen pelvis w con EXAMINATION: CT abdomen pelvis w con INDICATION: Abdominal pain. COMPARISON: CT runoff 04/04/2024 TECHNIQUE: Multiple contiguous axial CT images of the abdomen and pelvis were obtained after the administration of intravenous contrast. Sagittal and coronal reconstructions were performed. Dose reduction techniques were achieved by using: automated exposure control and/or adjustment of mA and /or kV according to patient size and/or use of iterative reconstruction technique. FINDINGS: LOWER CHEST: Clear lung bases. Small hiatal hernia. ABDOMEN AND PELVIS: LIVER: Focal fatty infiltration adjacent to the falciform ligament. BILIARY SYSTEM: Normal gallbladder. No biliary ductal dilatation. PANCREAS: Normal. SPLEEN: Normal. ADRENAL GLANDS: Normal. URINARY SYSTEM: Stable left renal 1.1 cm angiolipoma and small cysts. Normal right kidney. No hydronephrosis or urolithiasis. Small volume gas in the bladder lumen. REPRODUCTIVE: Unremarkable. GASTROINTESTINAL TRACT: Normal caliber bowel. No bowel wall thickening or inflammation. Colonic diverticulosis without diverticulitis. Normal appendix. VESSELS: Bilateral iliac artery stents in place. Nonaneurysmal abdominal aorta with severe atherosclerotic plaque. Patent abdominal vasculature. LYMPH NODES: No adenopathy. PERITONEUM: No ascites or pneumoperitoneum. MUSCULOSKELETAL: SOFT TISSUES: Unremarkable soft tissues. BONES: No acute osseous abnormality or suspicious osseous lesion. MCCLOUD: (series:image) CT/CT abdomen pelvis w con IMPRESSION: No acute abdominal or pelvic process. Electronically authenticated by: MATTHEW GAYTAN Date: 05/02/2024 15:30
[2024-05-02 13:36] VITALS: BP 155/80
[2024-05-02 15:08] VITALS: BP 133/60; PULSE 120; O2SAT 96
== END 2024-05-02 16:06 | disposition home or self-care (01) ==
PROVIDERS: Emergency Provider Emergency Medicine; PCP Family Medicine
DX: R11.2 Nausea with vomiting, unspecified (principal); F17.200 Nicotine dependence, unspecified, uncomplicated
CPT/HCPCS: 36415; 74177; 80048; 80076; 82150; 83690; 85025; 96361; 96374; 99285; J2405; Q9967

== ENCOUNTER 2024-05-29 09:53 | Outpatient (OUT) | payer OTHER, SELFPAY ==
--- NOTE | 2024-05-29 10:06 | XR_ITS ---
The [address] [address] Patient Name: PAULY QUEZADA MRN: [id number] date: 1960 Sex: F Assigned Patient Location: LAB Current Patient Location: Accession/Order Number: [id number] Exam Date: 05/29/2024 10:30 Report Date: 05/31/2024 04:39 At the request of: NANO NGUYEN Procedure: XR lumbar spine min 4V EXAMINATION: XR lumbar spine min 4V HISTORY: Low Back Pain At Multiple Sites COMPARISON: CT abdomen pelvis 05/02/2024 FINDINGS: BONES: Stable mild irregularity of T12 superior endplate. New mild irregularity of superior endplate of L4 and trace amount of increased density of the trabecula adjacent the superior endplate. Minimal grade 1 anterolisthesis of L3 on 4. Moderate degenerative facet arthropathy L3-L4 through L5-S1. DISC SPACES: Moderate-marked narrowing L5-S1. PARASPINOUS: Mild fusiform aneurysmal dilation of distal abdominal aorta with aortobiiliac stents. OTHER: Negative. XR/XR lumbar spine min 4V IMPRESSION: 1. Suspect mild compression fracture involving superior endplate of L4. Consider MRI for further evaluation. 2. Stable degenerative changes of lumbar spine. 3. Grossly stable distal abdominal aortic aneurysm and prior stent placement. Electronically authenticated by: SHAWN GRAFF Date: 05/31/2024 04:39
[2024-05-29 11:06] LABS: Estimated Average Glucose 128 mg/dL; Glycohemoglobin A1C 6.1 % (4.5-6.2)
[2024-05-29 12:49] LABS: Alanine Aminotransferase 15 U/L (14-59); Albumin Globulin Ratio 0.9; Albumin Level 3.7 g/dL (3.4-5.0); Alkaline Phosphatase 260 U/L (46-116); Anion Gap 14.6; Aspartate Amino Transferase 11 U/L (15-37); BUN Creatinine Ratio 24.7; Bilirubin Total 0.5 mg/dL (0.2-1.0); Calcium 10.4 mg/dL (8.5-10.1); Carbon Dioxide 26.9 mmol/L (21.0-32.0); Chloride 95 mmol/L (98-107); Chol HDL Ratio 5.3; Cholesterol 227 mg/dL (<=200); Estimated GFR (African America >60 (>=60 mL/min/1.73m^2); Estimated GFR (Non-African Ame >60 (>=60 mL/min/1.73m^2); Free T3 2.85 pg/mL (2.18-3.98); Globulin 4.2 g/dL; Glucose 127 mg/dL (74-106); HDL Cholesterol 43 mg/dL (40-60); Potassium 4.5 mmol/L (3.5-5.1); Sodium 132 mmol/L (136-145); Thyroid Stimulating Hormone 0.333 uIU/mL (0.358-3.740); Total Protein 7.9 g/dL (6.4-8.2); Triglycerides 152 mg/dL (<=150); VLDL CHOLESTEROL 30.4 mg/dL
== END 2024-05-29 09:54 | disposition home or self-care (01) ==
LOC: LAB 09:54
PROVIDERS: PCP Family Medicine; Visit Provider Family Medicine
DX: M54.50 Low back pain, unspecified (principal); E11.9 Type 2 diabetes mellitus without complications; R00.2 Palpitations; I10 Essential (primary) hypertension; E78.5 Hyperlipidemia, unspecified; D64.9 Anemia, unspecified; M51.369 Other intervertebral disc degeneration, lumbar region without mention of lumbar back pain or lower extremity pain; I71.40 Abdominal aortic aneurysm, without rupture, unspecified
CPT/HCPCS: 36415; 72110; 80053; 80061; 83036; 83540; 84436; 84443; 84481

== ENCOUNTER 2024-06-03 11:27 | Outpatient (OUT) | payer OTHER, SELFPAY ==
--- NOTE | 2024-06-03 11:31 | MM_ITS ---
Patient Name: PAULY QUEZADA MR#: [id number] : 1960 Exam Date: 06/03/2024 Ordering Doctor: DR Froylan Muhammad . RADIOLOGY REPORT PROCEDURE: MM TOMOSYNTHESIS SCREENING BI COMPARISON: MM TOMOSYNTHESIS SCREENING BI, 05/31/2023. MG MAMM SCREEN 3D LOVE CAD, 05/25/2022. INDICATIONS: Screening Calculator Name NCI Breast Cancer Risk Assessment Tool 5 Year Breast Cancer Risk 2.20% Lifetime Breast Cancer Risk 7.90% Personal Breast Cancer No Personal Ovarian Cancer No Treatments None Family Cancers Aunt-maternal with breast cancer at age 60; Brother with lung cancer at age 58; Brother with lung cancer at age 60. LOCATION: [facility] BREAST COMPOSITION: The breasts are almost entirely fatty. FINDINGS: DIAGNOSTIC CATEGORY 2--BENIGN FINDING. NO CHANGE FROM COMPARISON. Scattered benign-appearing calcifications are present. Scattered benign-appearing lymph nodes are present. RIGHT BREAST: No significant suspicious finding. LEFT BREAST: No significant suspicious finding. RECOMMENDATIONS: ROUTINE MAMMOGRAM AND CLINICAL EVALUATION IN 12 MONTHS. PLEASE NOTE: A NORMAL MAMMOGRAM DOES NOT EXCLUDE THE POSSIBILITY OF BREAST CANCER. A CLINICALLY SUSPICIOUS PALPABLE LUMP SHOULD BE BIOPSIED. Dictated by: Caio Edwards MD on 06/03/2024 at 12:35 Approved by: Caio Edwards MD on 06/03/2024 at 12:36
--- OUTSIDE RECORDS SUMMARY | 2024-06-03 11:42 | XMS_ITS | CCD ---
Author Organization [facility] CliniSyar Care Team Providers Care Mens Locker Room Attendant Name Role Phone Nano Nguyen Primary Care [...] MCGILL Admitting Unavailable Shawn Graff Consulting Unavailable [place], DR NISA Lainez Consulting Unavailable ROBERTAY ., [...] Provider MD Nano Nguyen Primary Care Provider [phone] Patrizia Melendrez Unavailable Patrizia Melendrez Attending Unavailable Hoy, Nano M Primary Care Unavailable Patrizia Melendrez Admitting Unavailable Patrizia Melendrez Attending Unavailable Honelda, Nano M Primary Care Unavailable Patrizia Melendrez Admitting Unavailable Shanice Larsen MD Unavailable Willem Suarez MD Unavailable [phone] Shanice Larsen MD Unavailable Unavailable Nano Nguyen MD Primary Care Provider [phone] Shanice Larsen MD Unavailable [phone] Nano Nguyen MD Primary Care Provider [phone] NANO NGUYEN Primary Care Unavailable HOY, NANO M Referring Unavailable HOY, NANO M Primary Care Unavailable HOY, NANO M Referring Unavailable WENDY, NANO M Primary Care Unavailable Nano Nguyen MD Primary Care Provider [phone] TRIPP HUTSON Attending Unavailable HOY, NANO M [...] Care Unavailable AMBANI, PAPA Attending Unavailable HOY, NAON M Primary Care Unavailable BAKAEEN, WILLEM Attending [...] [tetracycline] Drug Allergy 3 Unknown, GI Upset [facility] (2 sources) rosuvastatin; Translations: [ROSUVASTATIN] Drug Allergy 0 [facility] (1 source) SITagliptin Drug Allergy 0 [facility] (1 source) Tetracycline Drug Allergy [facility] (3 sources) House dust mite Drug allergy Unknown [facility] Other (4 sources) Cat dander; Translations: [CAT DANDER] Drug allergy 3 Unknown [facility] Repository (1 source) Tetracycline Drug Allergy 3 [facility] Repository (20 sources) Qatari house dust mite allergenic extract / house dust mite allergenic extract; Translations: [ALLERG XT,D.FARINAE-D.P TERONYS] Drug Allergy 3 Itching [facility] (20 sources) Cat Hair Extract; Translations: [CAT HAIR STANDARDIZED ALLERGENIC EXTRACT] Drug Allergy 3 Itching [facility] (20 sources) house dust allergenic extract; Translations: [HOUSE DUST] Drug Allergy 3 Itching [facility] (20 sources) rosuvastatin Drug Allergy 0 Unknown [facility] (20 sources) SITagliptin; Translations: [SITAGLIPTIN] Drug Allergy 0 Unknown [facility] (11 sources) Miconazole; Translations: [MICONAZOLE] Drug Allergy 4 Itching, Swelling [facility] Medications Current Medications Medication Drug Class(es) [...] hours as needed (for mild surgical pain). [id number] 200 actuat albuterol 0.09 mg/actuat metered dose [...] mouth once daily. Take 1 tablet by [facility] once daily. Calcium (2 sources) Phosphate [...] 0 03/07/2023 Suspended take [address] [facility] every twelve hours Carvedilol 6.25 MG 2 [...] 20, 2023 12:00am take 1 capsule by [facility] every twenty-four hours Vitamin D3 1000 UNIT [...] Comment on above: Take [facility] tablet [facility] daily. docusate sodium 100 mg oral capsule (20 sources) Start: 08-02-2023 take 1 capsule by mouth twice daily docusate sodium (COLACE) 100 mg capsule Take 1 capsule by mouth two times a day. 30 capsule 08/02/2023 Active Comment on above: Take 1 capsule by mo [facility] two times a day. 0.5 ml dulaglutide [...] evolocumab 140 mg/mL subcutaneous pen injector (REPATHA zintinCLICK) Inject 140 mg subcutaneously every 2 weeks. [...] on above: Take 2 tablets by mo [facility] once daily for 14 days. metFORMIN [...] Start: 04-12-2022 take 2 tablets by mo [facility] once daily metFORMIN HCl - 1000 [...] Start: 02-10-2021 take 2 tablets by mo [facility] once daily oxyBUTYnin Chloride 5 MG [...] 2023 12:00am take 1 capsule by mo [facility] once daily at mealtime Potassium Gluconate 595 [...] on above: Take 1 capsule by mo [facility] once daily. 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 CNPTOUTREACHon 02-04-2024 CNPTOUTREACH Normal [facility] CNOVon 01-28-2024 CNOV Normal [facility] PVR LEG LOVE VAS LABon 2023 PVR LEG LOVE VAS LAB Normal [facility] CNOVon 01-16-2024 CNOV Normal [facility] ECG COMPLETEon 01-16-2024 ECG COMPLETE Normal [facility] CNPNon 01-01-2024 CNPN Normal [facility] CNPTOUTREACHon 10-30-2023 CNPTOUTREACH Normal [facility] CNPNon 10-25-2023 CNPN Normal [facility] CNPTOUTREACHon 10-24-2023 CNPTOUTREACH Normal [facility] CNPNon 10-18-2023 CNPN Normal [facility] CNPNon 10-17-2023 CNPN Normal [facility] CNOVon 10-10-2023 CNOV Normal [facility] CT CHEST WO IVCONon 10-10-19 CT CHEST WO IVCON Normal [facility] ECG COMPLETEon 10-10-2023 ECG COMPLETE Normal [facility] CNPNon 09-23-2023 CNPN Normal [facility] CNPTOUTREACHon 09-03-2023 CNPTOUTREACH Normal [facility] CNPNon 08-23-2023 CNPN Normal [facility] CNPNon 08-08-2023 CNPN Normal [facility] CBC panel Auto (Bld)on 08-07 Erythrocyte distribution width (RBC) [Ratio] 13.2 % Normal 11.5-15.0 [facility] Comment on above: Order Comment: Speci men Type: BLOOD SPECIMENOrdering Facility: [facility] Address: [address] [place] [address] Performed By: #### 5 8410-2 ####[facility] [id number] [place] [address] [place] Hematocrit (Bld) [Volume fraction] 32.4 % Low 36.0-46.0 [facility] Comment on above: Order Comment: Speci men Type: BLOOD SPECIMENOrdering Facility: [facility] Address: [address] [place] [address] Performed By: #### 5 8410-2 ####[facility] [id number] [place] [address] [place] Hemoglobin (Bld) [Mass/Vol] 10.4 g/dL Low 11.5-15.5 [facility] Comment on above: Order Comment: Speci men Type: BLOOD SPECIMENOrdering Facility: [facility] Address: [address] [place] [address] Performed By: #### 5 8410-2 ####[facility] [id number] [place] [address] [place] MCH (RBC) [Entitic mass] 31.0 pg Normal 26.0-34.0 [facility] Comment on above: Order Comment: Speci men Type: BLOOD SPECIMENOrdering Facility: [facility] Address: [address] [place] [address] Performed By: #### 5 8410-2 ####[facility] [id number] [place] [address] [place] MCHC (RBC) [Mass/Vol] 32.1 g/dL Normal 30.5-36.0 [facility] Comment on above: Order Comment: Speci men Type: BLOOD SPECIMENOrdering Facility: [facility] Address: [address] [place] [address] Performed By: #### 5 8410-2 ####[facility] LABCL[facility] [id number] [place] [address] [place] MCV (RBC) [Entitic vol] 96.4 fL Normal 80.0-100.0 [facility] Comment on above: Order Comment: Speci men Type: BLOOD SPECIMENOrdering Facility: [facility] Address: [address] [place] [address] Performed By: #### 5 8410-2 ####[facility] [id number] [place] [address] [place] Nucleated RBC (Bld) [#/Vol] 10*3/uL Normal <0.01 [facility] Comment on above: Order Comment: Speci men Type: BLOOD SPECIMENOrdering Facility: [facility] Address: [address] [place] [address] Performed By: #### 5 8410-2 ####[facility] [id number] [place] [address] [place] Platelet mean volume (Bld) [Entitic vol] 9.3 fL Normal 9.0-12.7 [facility] Comment on above: Order Comment: Speci men Type: BLOOD SPECIMENOrdering Facility: [facility] Address: [address] [place] [address] Performed By: #### 5 8410-2 ####[facility] [id number] [place] [address] [place] Platelets (Bld) [#/Vol] 392 10*3/uL Normal 150-400 [facility] Comment on above: Order Comment: Speci men Type: BLOOD SPECIMENOrdering Facility: [facility] Address: [address] [place] [address] Performed By: #### 5 8410-2 ####[facility] [id number] [place] [address] [place] RBC (Bld) [#/Vol] 3.36 10*6/uL Low 3.90-5.20 [facility] Comment on above: Order Comment: Speci men Type: BLOOD SPECIMENOrdering Facility: [facility] Address: [address] [place] [address] Performed By: #### 5 8410-2 ####[facility] LABCL[facility] [id number] [place] [address] [place] WBC (Bld) [#/Vol] 7.17 10*3/uL Normal 3.70-11.00 [facility] Comment on above: Order Comment: Speci men Type: BLOOD SPECIMENOrdering Facility: [facility] Address: [address] [place] [address] Performed By: #### 5 8410-2 ####[facility] LABCL[facility] [id number] [place] [address] [place] CNOVon 08-07-2023 CNOV Normal [facility] Comprehensive metabolic 2000 panelon 08-07-2023 Albumin [Mass/Vol] 3.8 g/dL Low 3.9-4.9 [facility] Comment on above: Order Comment: Speci men Type: BLOOD SPECIMENOrdering Facility: [facility] Address: [address] [place] [address] Performed By: #### 2 4323-8 ####[facility] LABCL[facility] [id number] [place] [address] [place] ALP [Catalytic activity/Vol] 93 U/L Normal 34-123 [facility] Comment on above: Order Comment: Speci men Type: BLOOD SPECIMENOrdering Facility: [facility] Address: [address] [place] [address] Performed By: #### 2 4323-8 ####[facility] LABCL[facility] [id number] [place] [address] [place] ALT [Catalytic activity/Vol] 21 U/L Normal 7-38 [facility] Comment on above: Order Comment: Speci men Type: BLOOD SPECIMENOrdering Facility: [facility] Address: [address] [place] [id number] Performed By: #### 2 4323-8 ####[facility] LABCL[facility] [id number] [place] [id number] [place] Anion gap [Moles/Vol] 14 mmol/L Normal 9-18 [facility] Comment on above: Order Comment: Speci men Type: BLOOD SPECIMENOrdering Facility: [facility] Address: [address] [place] [address] Performed By: #### 2 4323-8 ####[facility] LABCL[facility] [id number] [place] [address] [place] AST [Catalytic activity/Vol] 14 U/L Normal 13-35 [facility] Comment on above: Order Comment: Speci men Type: BLOOD SPECIMENOrdering Facility: [facility] Address: [address] [place] [address] Performed By: #### 2 4323-8 ####[facility] LABCL[facility] [id number] [place] [address] [place] Bilirubin [Mass/Vol] 0.3 mg/dL Normal 0.2-1.3 [facility] Comment on above: Order Comment: Speci men Type: BLOOD SPECIMENOrdering Facility: [facility] Address: [address] [place], [place] [address] Performed By: #### 2 4323-8 ####[facility] LABCL[facility] [id number] [place] [address] [place] Calcium [Mass/Vol] 10.3 mg/dL High 8.5-10.2 [facility] Comment on above: Order Comment: Speci men Type: BLOOD SPECIMENOrdering Facility: [facility] Address: [address] [place] [address] Performed By: #### 2 4323-8 ####[facility] LABCL[facility] [id number] [place] [address] [place] Chloride [Moles/Vol] 95 mmol/L Low 97-105 [facility] Comment on above: Order Comment: Speci men Type: BLOOD SPECIMENOrdering Facility: [facility] Address: [address] [place] [address] Performed By: #### 2 4323-8 ####[facility] LABCL[facility] [id number] [place] [address] [place] CO2 [Moles/Vol] 26 mmol/L Normal 22-30 [facility] Comment on above: Order Comment: Speci men Type: BLOOD SPECIMENOrdering Facility: [facility] Address: [address] [place] [address] Performed By: #### 2 4323-8 ####[facility] [id number] [place] [address] [place] Creatinine [Mass/Vol] 0.90 mg/dL Normal 0.58-0.96 [facility] Comment on above: Order Comment: Speci men Type: BLOOD SPECIMENOrdering Facility: [facility] Address: [address] [place] [address] Performed By: #### 2 4323-8 ####[facility] [id number] [place] [address] [place] Creatinine and Glomerular filtration rate.predicted panel (S/P/Bld) 71 mL/min/1.73m??? Normal >=60 [facility] Comment on above: Order Comment: Speci men Type: BLOOD SPECIMENOrdering Facility: [facility] Address: [address] [place] [address] Result Comment: Annelise mated Glomerular Filtration Rate [...] actual GFR. Performed By: #### 2 4323-8 ####[facility] [id number] [place] [address] [place] Glucose [Mass/Vol] 180 mg/dL High 74-99 [facility] Comment on above: Order Comment: Speci men Type: BLOOD SPECIMENOrdering Facility: [facility] Address: [address] [place] [address] Result Comment: The [place] Diabetes Association (ADA) provides guidance for cutoff [...] Standards of Medical Care in Diabetes 2016, [place] [employer]. Diabetes Care. 2016.39(Suppl 1). Performed By: #### 2 4323-8 ####[facility] [id number] [place] [address] [place] Potassium [Moles/Vol] 4.1 mmol/L Normal 3.7-5.1 [facility] Comment on above: Order Comment: Speci men Type: BLOOD SPECIMENOrdering Facility: [facility] Address: [address] [place] [address] Performed By: #### 2 4323-8 ####[facility] [id number] [place] [id number] [place] Protein [Mass/Vol] 6.6 g/dL Normal 6.3-8.0 [facility] Comment on above: Order Comment: Speci men Type: BLOOD SPECIMENOrdering Facility: [facility] Address: [address] [place] [address] Performed By: #### 2 4323-8 ####[facility] LABCL[facility] [id number] [place] [address] [place] Sodium [Moles/Vol] 135 mmol/L Low 136-144 [facility] Comment on above: Order Comment: Speci men Type: BLOOD SPECIMENOrdering Facility: [facility] Address: [address] [place] [address] Performed By: #### 2 4323-8 ####[facility] LABCL[facility] [id number] [place] [address] [place] Urea nitrogen [Mass/Vol] 19 mg/dL Normal 7-21 [facility] Comment on above: Order Comment: Speci men Type: BLOOD SPECIMENOrdering Facility: [facility] Address: [address] [place] [address] Performed By: #### 2 4323-8 ####[facility] [id number] [place] [id number] [place] ECG COMPLETEon 08-07-2023 ECG COMPLETE Normal [facility] XR CHEST 2V FRONTAL/LATon XR CHEST 2V FRONTAL/LAT Normal [facility] XR Chest 2 [facility] CNPNon 08-06-2023 CNPN Normal [facility] ALLIED HEALTHon 08-02-2023 ALLIED HEALTH Normal [facility] CASE MANAGEMon 08-02-2023 CASE MANAGEM Normal [facility] CASE MANAGEM Normal [facility] CBC panel Auto (Bld)on 08-02 Erythrocyte distribution width (RBC) [Ratio] 12.1 % Normal 11.5-15.0 [facility] Comment on above: Order Comment: Speci men Type: BLOOD SPECIMENOrdering Facility: [facility] Address: [address] [place] [address] Performed By: #### 5 8410-2 ####[facility] [id number] [place] [address] [place] Hematocrit (Bld) [Volume fraction] 26.9 % Low 36.0-46.0 [facility] Comment on above: Order Comment: Speci men Type: BLOOD SPECIMENOrdering Facility: [facility] Address: [address] [place] [address] Performed By: #### 5 8410-2 ####[facility]CL[facility] [id number] [place] [address] [place] Hemoglobin (Bld) [Mass/Vol] 9.1 g/dL Low 11.5-15.5 [facility] Comment on above: Order Comment: Speci men Type: BLOOD SPECIMENOrdering Facility: [facility] Address: [address] [place] [address] Performed By: #### 5 8410-2 ####[facility]CL[facility] [id number] [place] [address] [place] MCH (RBC) [Entitic mass] 31.3 pg Normal 26.0-34.0 [facility] Comment on above: Order Comment: Speci men Type: BLOOD SPECIMENOrdering Facility: [facility] Address: [address] [place] [address] Performed By: #### 5 8410-2 ####[facility] [id number] [place] [address] [place] MCHC (RBC) [Mass/Vol] 33.8 g/dL Normal 30.5-36.0 [facility] Comment on above: Order Comment: Speci men Type: BLOOD SPECIMENOrdering Facility: [facility] Address: [address] [place] [address] Performed By: #### 5 8410-2 ####[facility] [id number] [place] [address] [place] MCV (RBC) [Entitic vol] 92.4 fL Normal 80.0-100.0 [facility] Comment on above: Order Comment: Speci men Type: BLOOD SPECIMENOrdering Facility: [facility] Address: [address] [place] [address] Performed By: #### 5 8410-2 ####[facility] [id number] [place] [address] [place] Nucleated RBC (Bld) [#/Vol] 10*3/uL Normal <0.01 [facility] Comment on above: Order Comment: Speci men Type: BLOOD SPECIMENOrdering Facility: [facility] Address: [address] [place] [address] Performed By: #### 5 8410-2 ####[facility] [id number] [place] [address] [place] Platelet mean volume (Bld) [Entitic vol] 10.0 fL Normal 9.0-12.7 [facility] Comment on above: Order Comment: Speci men Type: BLOOD SPECIMENOrdering Facility: [facility] Address: [address] [place] [address] Performed By: #### 5 8410-2 ####[facility] [id number] [place] [address] [place] Platelets (Bld) [#/Vol] 224 10*3/uL Normal 150-400 [facility] Comment on above: Order Comment: Speci men Type: BLOOD SPECIMENOrdering Facility: [facility] Address: [address] [place] [address] Performed By: #### 5 8410-2 ####[facility] [id number] [place] [address] [place] RBC (Bld) [#/Vol] 2.91 10*6/uL Low 3.90-5.20 [facility] Comment on above: Order Comment: Speci men Type: BLOOD SPECIMENOrdering Facility: [facility] Address: [address] [place] [address] Performed By: #### 5 8410-2 ####[facility] LABCL[facility] [id number] [facility] [place] [address] [place] WBC (Bld) [#/Vol] 6.35 10*3/uL Normal 3.70-11.00 [facility] Comment on above: Order Comment: Speci men Type: BLOOD SPECIMENOrdering Facility: [facility] Address: [address] [place] [address] Performed By: #### 5 8410-2 ####[facility] [id number] [place] [address] [place] Comprehensive metabolic 2000 panelon 08-02-2023 Albumin [Mass/Vol] 3.3 g/dL Low 3.9-4.9 [facility] Comment on above: Order Comment: Speci men Type: BLOOD SPECIMENOrdering Facility: [facility] Address: [address] [place] [address] Performed By: #### 2 4323-8, ####[facility] [id number] [place] [address] [place] ALP [Catalytic activity/Vol] 60 U/L Normal 34-123 [facility] Comment on above: Order Comment: Speci men Type: BLOOD SPECIMENOrdering Facility: [facility] Address: [address] [place] [address] Performed By: #### 2 4323-8, ####[facility] [id number] [facility] [place] [id number] [place] ALT [Catalytic activity/Vol] 14 U/L Normal 7-38 [facility] Comment on above: Order Comment: Speci men Type: BLOOD SPECIMENOrdering Facility: [facility] Address: [address] [place] [address] Performed By: #### 2 4323-8, 65682-8 ####[facility]CL[facility] [id number] [place] [address] [place] Anion gap [Moles/Vol] 9 mmol/L Normal 9-18 [facility] Comment on above: Order Comment: Speci men Type: BLOOD SPECIMENOrdering Facility: [facility] Address: [address] [place] [address] Performed By: #### 2 4323-8, ####[facility] LABCL[facility] [id number] [place] [address] [place] AST [Catalytic activity/Vol] 19 U/L Normal 13-35 [facility] Comment on above: Order Comment: Speci men Type: BLOOD SPECIMENOrdering Facility: [facility] Address: [address] [place] [address] Performed By: #### 2 4323-8, ####[facility] [id number] [place] [address] [place] Bilirubin [Mass/Vol] 0.5 mg/dL Normal 0.2-1.3 [facility] Comment on above: Order Comment: Speci men Type: BLOOD SPECIMENOrdering Facility: [facility] Address: [address] [place] [address] Performed By: #### 2 4323-8, ####[facility] [id number] [place] [address] [place] Calcium [Mass/Vol] 9.8 mg/dL Normal 8.5-10.2 [facility] Comment on above: Order Comment: Speci men Type: BLOOD SPECIMENOrdering Facility: [facility] Address: [address] [place] [address] Performed By: #### 2 4323-8, ####[facility] [id number] [place] [id number] [place] Chloride [Moles/Vol] 93 mmol/L Low 97-105 [facility] Comment on above: Order Comment: Speci men Type: BLOOD SPECIMENOrdering Facility: [facility] Address: [address] [place] [address] Performed By: #### 2 4323-8, ####[facility] [id number] [place] [address] [place] CO2 [Moles/Vol] 26 mmol/L Normal 22-30 [facility] Comment on above: Order Comment: Speci men Type: BLOOD SPECIMENOrdering Facility: [facility] Address: [address] [place] [address] Performed By: #### 2 4323-8, ####[facility] [id number] [place] [address] [place] Creatinine [Mass/Vol] 0.55 mg/dL Low 0.58-0.96 [facility] [facility] Comment on above: Order Comment: Speci men Type: BLOOD SPECIMENOrdering Facility: [facility] Address: [address] [place] [address] Performed By: #### 2 4323-8, ####[facility] LABCLIA [id number] [address] [place] Creatinine and Glomerular filtration rate.predicted panel (S/P/Bld) 102 mL/min/1.73m??? Normal >=60 [facility] Comment on above: Order Comment: Speci men Type: BLOOD SPECIMENOrdering Facility: [facility] Address: [address] [place] [address] Result Comment: Annelise mated Glomerular Filtration Rate [...] actual GFR. Performed By: #### 2 4323- ####[facility] LABCLIA [id number] [address] [address] [place] Glucose [Mass/Vol] 224 mg/dL High 74-99 [facility] Comment on above: Order Comment: Speci men Type: BLOOD SPECIMENOrdering Facility: [facility] Address: [address] [place] [address] Result Comment: The [place] [employer] (ADA) provides guidance for cutoff [...] Standards of Medical Care in Diabetes 2016, [place] [employer]. Diabetes Care. 2016.39(Suppl 1). Performed By: #### 2 4328, ####[facility] LABIA [id number] [place] [address] [place] Potassium [Moles/Vol] 4.4 mmol/L Normal 3.7-5.1 [facility] Comment on above: Order Comment: Speci men Type: BLOOD SPECIMENOrdering Facility: [facility] Address: [address] [place] [address] Performed By: #### 2 4328, ####[facility] LABIA [id number] [place] [address] [place] Protein [Mass/Vol] 6.2 g/dL Low 6.3-8.0 [facility] Comment on above: Order Comment: Speci men Type: BLOOD SPECIMENOrdering Facility: [facility] Address: [address] [place] [address] Performed By: #### 2 4323-01, ####[facility] LABCLIA [id number] [address] [address] [place] Sodium [Moles/Vol] 128 mmol/L Low 136-144 [facility] Comment on above: Order Comment: Speci men Type: BLOOD SPECIMENOrdering Facility: [facility] Address: [address] [place] [address] Performed By: #### 2 4323-8, ####[facility] LABCLIA [id number] [place] [id number] [place] Urea nitrogen [Mass/Vol] 13 mg/dL Normal 7-21 [facility] Comment on above: Order Comment: Speci men Type: BLOOD SPECIMENOrdering Facility: [facility] Address: [address] [place] [address] Performed By: #### 2 43238, ####[facility] LABCLIA [id number] [place] [id number] [place] ECG COMPLETEon 08-02-2023 ECG COMPLETE Normal [facility] Magnesium SerPl-mCncon 08-02 Magnesium [Mass/Vol] 2.0 mg/dL Normal 1.7-2.3 [facility] Comment on above: Order Comment: Speci men Type: BLOOD SPECIMENOrdering Facility: [facility] Address: [address] [place] [address] Performed By: #### 2 4323-8, ####[facility] LABCLIA [id number] [address] [address] [place] THERAPY NTon 08-02-2023 THERAPY NT Normal [facility] THERAPY NT Normal [facility] XR CHEST 1V FRONTALon 2023 XR CHEST 1V FRONTAL Normal [facility] CASE MANAGEMon 08-01-2023 CASE MANAGEM Normal [facility] CBC panel Auto (Bld)on 08-01 Erythrocyte distribution width (RBC) [Ratio] 12.0 % Normal 11.5-15.0 [facility] Comment on above: Order Comment: Speci men Type: BLOOD SPECIMENOrdering Facility: [facility] Address: [address] [place] [address] Performed By: #### 5 8410-2 ####[facility] LABIA [id number] [place] [address] [place] Hematocrit (Bld) [Volume fraction] 30.5 % Low 36.0-46.0 [facility] Comment on above: Order Comment: Speci men Type: BLOOD SPECIMENOrdering Facility: [facility] Address: [address] [place] [address] Performed By: #### 5 8410-2 ####[facility] LABIA [id number] [place] [address] [place] Hemoglobin (Bld) [Mass/Vol] 10.5 g/dL Low 11.5-15.5 [facility] Comment on above: Order Comment: Speci men Type: BLOOD SPECIMENOrdering Facility: [facility] Address: [address] [place] [address] Performed By: #### 5 8410-2 ####[facility] LABIA [id number] [place] [address] [place] MCH (RBC) [Entitic mass] 31.4 pg Normal 26.0-34.0 [facility] Comment on above: Order Comment: Speci men Type: BLOOD SPECIMENOrdering Facility: [facility] Address: [address] [place] [address] Performed By: #### 5 8410-2 ####[facility] LABIA [id number] [place] [address] [place] MCHC (RBC) [Mass/Vol] 34.4 g/dL Normal 30.5-36.0 [facility] Comment on above: Order Comment: Speci men Type: BLOOD SPECIMENOrdering Facility: [facility] Address: [address] [place] [address] Performed By: #### 5 8410-2 ####[facility] LABCLIA [id number] [place] [address] [place] MCV (RBC) [Entitic vol] 91.3 fL Normal 80.0-100.0 [facility] Comment on above: Order Comment: Speci men Type: BLOOD SPECIMENOrdering Facility: [facility] Address: [address] [place] [address] Performed By: #### 5 8410-2 ####[facility] LABIA [id number] [place] [address] [place] Nucleated RBC (Bld) [#/Vol] 10*3/uL Normal <0.01 [facility] Comment on above: Order Comment: Speci men Type: BLOOD SPECIMENOrdering Facility: [facility] Address: [address] [place] [address] Performed By: #### 5 8410-2 ####[facility] LABIA [id number] [place] [address] [place] Platelet mean volume (Bld) [Entitic vol] 9.9 fL Normal 9.0-12.7 [facility] Comment on above: Order Comment: Speci men Type: BLOOD SPECIMENOrdering Facility: [facility] Address: [address] [place] [address] Performed By: #### 5 8410-2 ####[facility] LABCLIA [id number] [place] [address] [place] Platelets (Bld) [#/Vol] 208 10*3/uL Normal 150-400 [facility] Comment on above: Order Comment: Speci men Type: BLOOD SPECIMENOrdering Facility: [facility] Address: [address] [place] [address] Performed By: #### 5 8410-2 ####[facility] LABCLIA [id number] [place] [address] [place] RBC (Bld) [#/Vol] 3.34 10*6/uL Low 3.90-5.20 [facility] Comment on above: Order Comment: Speci men Type: BLOOD SPECIMENOrdering Facility: [facility] Address: [address] [place] [address] Performed By: #### 5 8410-2 ####[facility] LABIA [id number] [place] [address] [place] WBC (Bld) [#/Vol] 9.03 10*3/uL Normal 3.70-11.00 [facility] Comment on above: Order Comment: Speci men Type: BLOOD SPECIMENOrdering Facility: [facility] Address: [address] [place] [address] Performed By: #### 5 8410-2 ####[facility] LABIA [id number] [place] [address] [place] CNDSon 08-01-2023 CNDS Normal [facility] Comprehensive metabolic 2000 panelon 08-01-2023 Albumin [Mass/Vol] 3.3 g/dL Low 3.9-4.9 [facility] Comment on above: Order Comment: Speci men Type: BLOOD SPECIMENOrdering Facility: [facility] Address: [address] [place] [address] Performed By: #### 1 9123-9, 23532-6 ####[facility] LABCLIA [id number] [place] [address] [place] ALP [Catalytic activity/Vol] 60 U/L Normal 34-123 [facility] Comment on above: Order Comment: Speci men Type: BLOOD SPECIMENOrdering Facility: [facility] Address: [address] [place] [address] Performed By: #### 1 9123-9, 80262-8 ####[facility] LABCLIA [id number] [place] [address] [place] ALT [Catalytic activity/Vol] 9 U/L Normal 7-38 [facility] Comment on above: Order Comment: Speci men Type: BLOOD SPECIMENOrdering Facility: [facility] Address: [address] [place] [address] Performed By: #### 1 9123-9, 19051-3 ####[facility] LABCLIA [id number] [place] [address] [place] Anion gap [Moles/Vol] 9 mmol/L Normal 9-18 [facility] Comment on above: Order Comment: Speci men Type: BLOOD SPECIMENOrdering Facility: [facility] Address: [address] [place] [address] Performed By: #### 1 9123-9, 33738-4 ####[facility] LABCLIA [id number] [place] [address] [place] AST [Catalytic activity/Vol] 9 U/L Low 13-35 [facility] Comment on above: Order Comment: Speci men Type: BLOOD SPECIMENOrdering Facility: [facility] Address: [address] [place] [address] Performed By: #### 1 9123-9, 18659-8 ####[facility] LABCLIA [id number] [place] [address] [place] Bilirubin [Mass/Vol] 0.6 mg/dL Normal 0.2-1.3 [facility] Comment on above: Order Comment: Speci men Type: BLOOD SPECIMENOrdering Facility: [facility] Address: [address] [place] [address] Performed By: #### 1 9123-9, 16226-4 ####[facility] LABCLIA [id number] [place] [address] [place] Calcium [Mass/Vol] 9.7 mg/dL Normal 8.5-10.2 [facility] Comment on above: Order Comment: Speci men Type: BLOOD SPECIMENOrdering Facility: [facility] Address: [address] [place] [address] Performed By: #### 1 9123-9, ####[facility] LABCLIA [id number] [place] [address] [place] Chloride [Moles/Vol] 95 mmol/L Low 97-105 [facility] Comment on above: Order Comment: Speci men Type: BLOOD SPECIMENOrdering Facility: [facility] Address: [address] [place] [address] Performed By: #### 1 9123-9, ####[facility] LABCLIA [id number] [place] [address] [place] CO2 [Moles/Vol] 27 mmol/L Normal 22-30 [facility] Comment on above: Order Comment: Speci men Type: BLOOD SPECIMENOrdering Facility: [facility] Address: [address] [place] [address] Performed By: #### 1 9123-9, ####[facility] LABCLIA [id number] [place] [address] [place] Creatinine [Mass/Vol] 0.62 mg/dL Normal 0.58-0.96 [facility] Comment on above: Order Comment: Speci men Type: BLOOD SPECIMENOrdering Facility: [facility] Address: [address] [place] [address] Performed By: #### 1 9123-9, ####[facility] LABCLIA [id number] [place] [address] [place] Creatinine and Glomerular filtration rate.predicted panel (S/P/Bld) 99 mL/min/1.73m??? Normal >=60 [facility] Comment on above: Order Comment: Speci men Type: BLOOD SPECIMENOrdering Facility: [facility] Address: [address] [place] [address] Result Comment: Annelise mated Glomerular Filtration Rate [...] actual GFR. Performed By: #### 1 9123-9, ####[facility] [id number] [place] [address] [place] Glucose [Mass/Vol] 196 mg/dL High 74-99 [facility] Comment on above: Order Comment: Phyllis stein Type: BLOOD SPECIMENOrdering Facility: [facility] Address: [address] [place] [address] Result Comment: The [place] [employer] (ADA) provides guidance for cutoff [...] Standards of Medical Care in Diabetes 2016, [place] [employer]. Diabetes Care. 2016.39(Suppl 1). Performed By: #### 1 9123-9, ####[facility] [id number] [place] [address] [place] Potassium [Moles/Vol] 4.2 mmol/L Normal 3.7-5.1 [facility] Comment on above: Order Comment: Phyllis stein Type: BLOOD SPECIMENOrdering Facility: [facility] Address: [address] [place] [address] Performed By: #### 1 9123-9, 95878-5 ####[facility] LABCLIA [id number] [place] [id number] [place] Protein [Mass/Vol] 6.0 g/dL Low 6.3-8.0 [facility] Comment on above: Order Comment: Speci men Type: BLOOD SPECIMENOrdering Facility: [facility] Address: [address] [place] [address] Performed By: #### 1 9123-9, 95923-9 ####[facility] LABCLIA [id number] [place] [address] [place] Sodium [Moles/Vol] 131 mmol/L Low 136-144 [facility] Comment on above: Order Comment: Speci men Type: BLOOD SPECIMENOrdering Facility: [facility] Address: [address] [place] [address] Performed By: #### 1 9123-9, 06188-8 ####[facility] LABCLIA [id number] [place] [address] [place] Urea nitrogen [Mass/Vol] 12 mg/dL Normal 7-21 [facility] Comment on above: Order Comment: Speci men Type: BLOOD SPECIMENOrdering Facility: [facility] Address: [address] [place] [address] Performed By: #### 1 9123-9, 33236-3 ####[facility] LABCLIA [id number] [place] [address] [place] ECG COMPLETEon 08-01-2023 ECG COMPLETE Normal [facility] Magnesium SerPl-mCncon 08-01 Magnesium [Mass/Vol] 1.8 mg/dL Normal 1.7-2.3 [facility] Comment on above: Order Comment: Speci men Type: BLOOD SPECIMENOrdering Facility: [facility] Address: [address] [place] [address] Performed By: #### 1 9123-9, 85600-0 ####[facility] LABCLIA [id number] [place] [address] [place] XR CHEST 1V FRONTAL PORTon 0 08-01-2023 XR CHEST 1V FRONTAL PORT Normal [facility] CBC panel Auto (Bld)on 07-31 Erythrocyte distribution width (RBC) [Ratio] 12.0 % Normal 11.5-15.0 [facility] Comment on above: Order Comment: Speci men Type: BLOOD SPECIMENOrdering Facility: [facility] Address: [address] [place] [address] Performed By: #### 5 8410-2 ####[facility] LABIA [id number] [place] [address] [place] Hematocrit (Bld) [Volume fraction] 31.1 % Low 36.0-46.0 [facility] Comment on above: Order Comment: Speci men Type: BLOOD SPECIMENOrdering Facility: [facility] Address: [address] [place] [address] Performed By: #### 5 8410-2 ####[facility] LABIA [id number] [place] [address] [place] Hemoglobin (Bld) [Mass/Vol] 10.8 g/dL Low 11.5-15.5 [facility] Comment on above: Order Comment: Speci men Type: BLOOD SPECIMENOrdering Facility: [facility] Address: [address] [place] [address] Performed By: #### 5 8410-2 ####[facility] LABCLIA [id number] [place] [address] [place] MCH (RBC) [Entitic mass] 31.9 pg Normal 26.0-34.0 [facility] Comment on above: Order Comment: Speci men Type: BLOOD SPECIMENOrdering Facility: [facility] Address: [address] [place] [address] Performed By: #### 5 8410-2 ####[facility] LABCLIA [id number] [place] [address] [place] MCHC (RBC) [Mass/Vol] 34.7 g/dL Normal 30.5-36.0 [facility] Comment on above: Order Comment: Speci men Type: BLOOD SPECIMENOrdering Facility: [facility] Address: [address] [place] [address] Performed By: #### 5 8410-2 ####[facility] LABCL[facility] [id number] [place] [address] [place] MCV (RBC) [Entitic vol] 91.7 fL Normal 80.0-100.0 [facility] Comment on above: Order Comment: Speci men Type: BLOOD SPECIMENOrdering Facility: [facility] Address: [address] [place] [address] Performed By: #### 5 8410-2 ####[facility] LABIA [id number] [place] [address] [place] Nucleated RBC (Bld) [#/Vol] 10*3/uL Normal <0.01 [facility] Comment on above: Order Comment: Speci men Type: BLOOD SPECIMENOrdering Facility: [facility] Address: [address] [place] [address] Performed By: #### 5 8410-2 ####[facility] LABIA [id number] [place] [address] [place] Platelet mean volume (Bld) [Entitic vol] 10.3 fL Normal 9.0-12.7 [facility] Comment on above: Order Comment: Speci men Type: BLOOD SPECIMENOrdering Facility: [facility] Address: [address] [place] [address] Performed By: #### 5 8410-2 ####[facility] LABCL[facility] [id number] [place] [address] [place] Platelets (Bld) [#/Vol] 159 10*3/uL Normal 150-400 [facility] Comment on above: Order Comment: Speci men Type: BLOOD SPECIMENOrdering Facility: [facility] Address: [address] [place] [address] Performed By: #### 5 8410-2 ####[facility] LABCL[facility] [id number] [place] [address] [place] RBC (Bld) [#/Vol] 3.39 10*6/uL Low 3.90-5.20 [facility] Comment on above: Order Comment: Speci men Type: BLOOD SPECIMENOrdering Facility: [facility] Address: [address] [place] [address] Performed By: #### 5 8410-2 ####[facility] LABCL[facility] [id number] [place] [address] [place] WBC (Bld) [#/Vol] 9.25 10*3/uL Normal 3.70-11.00 [facility] Comment on above: Order Comment: Speci men Type: BLOOD SPECIMENOrdering Facility: [facility] Address: [address] [place] [address] Performed By: #### 5 8410-2 ####[facility] LABCL[facility] [id number] [place] [address] [place] Comprehensive metabolic 2000 panelon 07-31-2023 Albumin [Mass/Vol] 2.9 g/dL Low 3.9-4.9 [facility] Comment on above: Order Comment: Speci men Type: BLOOD SPECIMENOrdering Facility: [facility] Address: [address] [place] [address] Performed By: #### 2 4323-8 ####[facility] LABCL[facility] [id number] [place] [address] [place] ALP [Catalytic activity/Vol] 54 U/L Normal 34-123 [facility] Comment on above: Order Comment: Speci men Type: BLOOD SPECIMENOrdering Facility: [facility] Address: [address] [place] [id number] Performed By: #### 2 4323-8 ####[facility] LABCL[facility] [id number] [place] [id number] [place] ALT [Catalytic activity/Vol] 10 U/L Normal 7-38 [facility] Comment on above: Order Comment: Speci men Type: BLOOD SPECIMENOrdering Facility: [facility] Address: [address] [place], [place] [address] Performed By: #### 2 4323-8 ####[facility] LABCL[facility] [id number] [place] [address] [place] Anion gap [Moles/Vol] 9 mmol/L Normal 9-18 [facility] Comment on above: Order Comment: Speci men Type: BLOOD SPECIMENOrdering Facility: [facility] Address: [address] [place] [address] Performed By: #### 2 4323-8 ####[facility] LABCL[facility] [id number] [place] [address] [place] AST [Catalytic activity/Vol] 16 U/L Normal 13-35 [facility] Comment on above: Order Comment: Speci men Type: BLOOD SPECIMENOrdering Facility: [facility] Address: [address] [place], [place] [address] Performed By: #### 2 4323-8 ####[facility]CL[facility] [id number] [place] [address] [place] Bilirubin [Mass/Vol] 0.7 mg/dL Normal 0.2-1.3 [facility] Comment on above: Order Comment: Speci men Type: BLOOD SPECIMENOrdering Facility: [facility] Address: [address] [place], [place] [address] Performed By: #### 2 4323-8 ####[facility] LABCL[facility] [id number] [place] [address] [place] Calcium [Mass/Vol] 9.2 mg/dL Normal 8.5-10.2 [facility] Comment on above: Order Comment: Speci men Type: BLOOD SPECIMENOrdering Facility: [facility] Address: [address] [place] [address] Performed By: #### 2 4323-8 ####[facility]CL[facility] [id number] [place] [address] [place] Chloride [Moles/Vol] 98 mmol/L Normal 97-105 [facility] Comment on above: Order Comment: Speci men Type: BLOOD SPECIMENOrdering Facility: [facility] Address: [address] [place] [address] Performed By: #### 2 4323-8 ####[facility]CL[facility] [id number] [place] [address] [place] CO2 [Moles/Vol] 24 mmol/L Normal 22-30 [facility] Comment on above: Order Comment: Speci men Type: BLOOD SPECIMENOrdering Facility: [facility] Address: [address] [place] [address] Performed By: #### 2 4323-8 ####[facility]CL[facility] [id number] [place] [address] [place] Creatinine [Mass/Vol] 0.66 mg/dL Normal 0.58-0.96 [facility] Comment on above: Order Comment: Speci men Type: BLOOD SPECIMENOrdering Facility: [facility] Address: [address] [place] [address] Performed By: #### 2 4323-8 ####[facility]CL[facility] [id number] [place] [address] [place] Creatinine and Glomerular filtration rate.predicted panel (S/P/Bld) 97 mL/min/1.73m??? Normal >=60 [facility] Comment on above: Order Comment: Speci men Type: BLOOD SPECIMENOrdering Facility: [facility] Address: [address] [place] [address] Result Comment: Annelise mated Glomerular Filtration Rate [...] actual GFR. Performed By: #### 2 4323-8 ####[facility]CL[facility] [id number] [place] [address] [place] Glucose [Mass/Vol] 171 mg/dL High 74-99 [facility] Comment on above: Order Comment: Specmarko stein Type: BLOOD SPECIMENOrdering Facility: [facility] Address: [address] [place] [address] Result Comment: The [place] [employer] (ADA) provides guidance for cutoff [...] Standards of Medical Care in Diabetes 2016, [place] [employer]. Diabetes Care. 2016.39(Suppl 1). Performed By: #### 2 4323-8 ####[facility] [id number] [place] [address] [place] Potassium [Moles/Vol] 4.4 mmol/L Normal 3.7-5.1 [facility] Comment on above: Order Comment: Phyllis stein Type: BLOOD SPECIMENOrdering Facility: [facility] Address: [address] [place] [address] Performed By: #### 2 4323-8 ####[facility] [id number] [place] [address] [place] Protein [Mass/Vol] 5.5 g/dL Low 6.3-8.0 [facility] Comment on above: Order Comment: Speci men Type: BLOOD SPECIMENOrdering Facility: [facility] Address: [address] [place] [address] Performed By: #### 2 4323-8 ####[facility] [id number] [place] [address] [place] Sodium [Moles/Vol] 131 mmol/L Low 136-144 [facility] Comment on above: Order Comment: Speci men Type: BLOOD SPECIMENOrdering Facility: [facility] Address: [address] [place] [address] Performed By: #### 2 4323-8 ####[facility] [id number] [place] [address] [place] Urea nitrogen [Mass/Vol] 12 mg/dL Normal 7-21 [facility] Comment on above: Order Comment: Speci men Type: BLOOD SPECIMENOrdering Facility: [facility] Address: [address] [place] [address] Performed By: #### 2 4323-8 ####[facility] [id number] [place] [address] [place] NURSING PROGon 07-31-2023 NURSING PROG Normal [facility] XR CHEST 1V FRONTAL PORTon 0 07-31-2023 XR CHEST 1V FRONTAL PORT Normal [facility] ARTERIAL BLOOD GASESon 07-30 Base excess Calc (Bld) [Moles/Vol] 2 mmol/L Normal 0-2 [facility] Comment on above: Order Comment: Speci men Type: ARTERIAL BLOOD SPECIMENOrdering Facility: [facility] Address: [address] [place] [address] Performed By: #### A LLBG ####[facility] LABCLIA [id number] [place] [address] [place] Body temperature 98.6 [degF] Normal [facility] Comment on above: Order Comment: Speci men Type: ARTERIAL BLOOD SPECIMENOrdering Facility: [facility] Address: [address] [place] [address] Performed By: #### A LLBG ####[facility] LABCL[facility] [id number] [place] [address] [place] Calcium.ionized (Bld) [Mass/Vol] 1.22 mmol/L Normal 1.08-1.30 [facility] Comment on above: Order Comment: Speci men Type: ARTERIAL BLOOD SPECIMENOrdering Facility: [facility] Address: [address] [place] [address] Performed By: #### A LLBG ####[facility]CL[facility] [id number] [place] [address] [place] Calcium.ionized adjusted to pH 7.4 (BldA) [Moles/Vol] 1.26 mmol/L Normal 1.08-1.30 [facility] Comment on above: Order Comment: Speci men Type: ARTERIAL BLOOD SPECIMENOrdering Facility: [facility] Address: [address] [place] [address] Performed By: #### A LLBG ####[facility] LABCL[facility] [id number] [place] [address] [place] Carboxyhemoglobin (BldA) [Mass fraction] 1.8 % Normal 0.0-2.0 [facility] Comment on above: Order Comment: Speci men Type: ARTERIAL BLOOD SPECIMENOrdering Facility: [facility] Address: [address] [place] [address] Result Comment: Carb oxyhemoglobin Reference Range for Smokers: 2.0-8.0% Performed By: #### A LLBG ####[facility] LABCLIA [id number] [place] [address] [place] CO2 (Bld) [Partial pressure] 37 mm Hg Normal 36-46 [facility] Comment on above: Order Comment: Speci men Type: ARTERIAL BLOOD SPECIMENOrdering Facility: [facility] Address: [address] [place] [address] Performed By: #### A LLBG ####[facility]CL[facility] [id number] [place] [address] [place] Glucose [Mass/Vol] 146 mg/dL High 60-105 [facility] Comment on above: Order Comment: Speci men Type: ARTERIAL BLOOD SPECIMENOrdering Facility: [facility] Address: [address] [place] [address] Performed By: #### A LLBG ####[facility] LABCL[facility] [id number] [place] [address] [place] HCO3 (Bld) [Moles/Vol] 26 mmol/L Normal 22-26 [facility] Comment on above: Order Comment: Speci men Type: ARTERIAL BLOOD SPECIMENOrdering Facility: [facility] Address: [address] [place] [address] Performed By: #### A LLBG ####[facility] LABCL[facility] [id number] [place] [address] [place] Hematocrit (Bld) [Volume fraction] 34.4 % Low 36.0-46.0 [facility] Comment on above: Order Comment: Speci men Type: ARTERIAL BLOOD SPECIMENOrdering Facility: [facility] Address: [address] [place] [address] Performed By: #### A LLBG ####[facility]CL[facility] [id number] [place] [address] [place] Hemoglobin (Bld) [Mass/Vol] 11.1 g/dL Low 11.5-15.5 [facility] Comment on above: Order Comment: Speci men Type: ARTERIAL BLOOD SPECIMENOrdering Facility: [facility] Address: [address] [place] [address] Performed By: #### A LLBG ####[facility]CL[facility] [id number] [place] [address] [place] Lactate [Moles/Vol] 0.9 mmol/L Normal 0.5-2.2 [facility] Comment on above: Order Comment: Speci men Type: ARTERIAL BLOOD SPECIMENOrdering Facility: [facility] Address: [address] [place] [address] Performed By: #### A LLBG ####[facility]CL[facility] [id number] [place] [address] [place] LITERS 1 Liters/min Normal [facility] Comment on above: Order Comment: Speci men Type: ARTERIAL BLOOD SPECIMENOrdering Facility: [facility] Address: [address] [place] [address] Performed By: #### A LLBG ####[facility]CL[facility] [id number] [place] [address] [place] Methemoglobin (Bld) [Mass fraction] 1.4 % Normal 0.0-1.5 [facility] Comment on above: Order Comment: Speci men Type: ARTERIAL BLOOD SPECIMENOrdering Facility: [facility] Address: [address] [place] [address] Performed By: #### A LLBG ####[facility] [id number] [place] [address] [place] O2 THERAPY NC = Nasal Cannula Normal [facility] Comment on above: Order Comment: Speci men Type: ARTERIAL BLOOD SPECIMENOrdering Facility: [facility] Address: [address] [place] [address] Performed By: #### A LLBG ####[facility]CL[facility] [id number] [place] [address] [place] Oxygen (Bld) [Partial pressure] 87 mm Hg Normal 85-95 [facility] Comment on above: Order Comment: Speci men Type: ARTERIAL BLOOD SPECIMENOrdering Facility: [facility] Address: [address] [place] [address] Performed By: #### A LLBG ####[facility] [id number] [place] [address] [place] Oxyhemoglobin (BldA) [Mass fraction] 94 % Low 95-98 [facility] Comment on above: Order Comment: Speci men Type: ARTERIAL BLOOD SPECIMENOrdering Facility: [facility] Address: [address] [place] [address] Performed By: #### A LLBG ####[facility] [id number] [place] [address] [place] pH (Bld) 7.46 [pH] High 7.35-7.45 [facility] Comment on above: Order Comment: Speci men Type: ARTERIAL BLOOD SPECIMENOrdering Facility: [facility] Address: [address] [place] [address] Performed By: #### A LLBG ####[facility] [id number] [place] [address] [place] Potassium [Moles/Vol] 4.3 mmol/L Normal 3.5-5.0 [facility] Comment on above: Order Comment: Speci men Type: ARTERIAL BLOOD SPECIMENOrdering Facility: [facility] Address: [address] [place] [address] Performed By: #### A LLBG ####[facility]CL[facility] [id number] [place] [address] [place] Sodium [Moles/Vol] 128 mmol/L Low 136-144 [facility] Comment on above: Order Comment: Speci men Type: ARTERIAL BLOOD SPECIMENOrdering Facility: [facility] Address: [address] [place] [address] Performed By: #### A LLBG ####[facility] LABCL[facility] [id number] [place] [address] [place] Base excess Calc (Bld) [Moles/Vol] 2 mmol/L Normal 0-2 [facility] Comment on above: Order Comment: Speci men Type: ARTERIAL BLOOD SPECIMENOrdering Facility: [facility] Address: [address] [place] [address] Performed By: #### A LLBG ####[facility] [id number] [place] [address] [place] Body temperature 98.6 [degF] Normal [facility] Comment on above: Order Comment: Speci men Type: ARTERIAL BLOOD SPECIMENOrdering Facility: [facility] Address: [address] [place] [address] Performed By: #### A LLBG ####[facility] [id number] [place] [address] [place] Calcium.ionized (Bld) [Mass/Vol] 1.21 mmol/L Normal 1.08-1.30 [facility] Comment on above: Order Comment: Speci men Type: ARTERIAL BLOOD SPECIMENOrdering Facility: [facility] Address: [address] [place] [address] Performed By: #### A LLBG ####[facility] [id number] [place] [address] [place] Calcium.ionized adjusted to pH 7.4 (BldA) [Moles/Vol] 1.23 mmol/L Normal 1.08-1.30 [facility] Comment on above: Order Comment: Speci men Type: ARTERIAL BLOOD SPECIMENOrdering Facility: [facility] Address: [address] [place] [address] Performed By: #### A LLBG ####[facility] LABCL[facility] [id number] [place] [address] [place] Carboxyhemoglobin (BldA) [Mass fraction] 1.6 % Normal 0.0-2.0 [facility] Comment on above: Order Comment: Speci men Type: ARTERIAL BLOOD SPECIMENOrdering Facility: [facility] Address: [address] [place] [address] Result Comment: Carb oxyhemoglobin Reference Range for Smokers: 2.0-8.0% Performed By: #### A LLBG ####[facility]CL[facility] [id number] [place] [address] [place] CO2 (Bld) [Partial pressure] 39 mm Hg Normal 36-46 [facility] Comment on above: Order Comment: Speci men Type: ARTERIAL BLOOD SPECIMENOrdering Facility: [facility] Address: [address] [place] [address] Performed By: #### A LLBG ####[facility]CL[facility] [id number] [place] [address] [place] Glucose [Mass/Vol] 168 mg/dL High 60-105 [facility] Comment on above: Order Comment: Speci men Type: ARTERIAL BLOOD SPECIMENOrdering Facility: [facility] Address: [address] [place] [address] Performed By: #### A LLBG ####[facility]CL[facility] [id number] [place] [address] [place] HCO3 (Bld) [Moles/Vol] 26 mmol/L Normal 22-26 [facility] Comment on above: Order Comment: Speci men Type: ARTERIAL BLOOD SPECIMENOrdering Facility: [facility] Address: [address] [place] [address] Performed By: #### A LLBG ####[facility] LABCL[facility] [id number] [place] [address] [place] Hematocrit (Bld) [Volume fraction] 35.0 % Low 36.0-46.0 [facility] Comment on above: Order Comment: Speci men Type: ARTERIAL BLOOD SPECIMENOrdering Facility: [facility] Address: [address] [place] [address] Performed By: #### A LLBG ####[facility] [id number] [place] [address] [place] Hemoglobin (Bld) [Mass/Vol] 11.4 g/dL Low 11.5-15.5 [facility] Comment on above: Order Comment: Speci men Type: ARTERIAL BLOOD SPECIMENOrdering Facility: [facility] Address: [address] [place] [address] Performed By: #### A LLBG ####[facility] [id number] [place] [address] [place] Lactate [Moles/Vol] 1.0 mmol/L Normal 0.5-2.2 [facility] Comment on above: Order Comment: Speci men Type: ARTERIAL BLOOD SPECIMENOrdering Facility: [facility] Address: [address] [place] [address] Performed By: #### A LLBG ####[facility] [id number] [place] [address] [place] LITERS 1 Liters/min Normal [facility] Comment on above: Order Comment: Speci men Type: ARTERIAL BLOOD SPECIMENOrdering Facility: [facility] Address: [address] [place] [address] Performed By: #### A LLBG ####[facility] [id number] [place] [address] [place] Methemoglobin (Bld) [Mass fraction] 1.4 % Normal 0.0-1.5 [facility] Comment on above: Order Comment: Speci men Type: ARTERIAL BLOOD SPECIMENOrdering Facility: [facility] Address: [address] [place] [address] Performed By: #### A LLBG ####[facility] [id number] [place] [address] [place] O2 THERAPY NC = Nasal Cannula Normal [facility] Comment on above: Order Comment: Speci men Type: ARTERIAL BLOOD SPECIMENOrdering Facility: [facility] Address: [address] [place] [address] Performed By: #### A LLBG ####[facility] LABCLIA [id number] [place] [id number] [place] Oxygen (Bld) [Partial pressure] 99 mm Hg High 85-95 [facility] Comment on above: Order Comment: Speci men Type: ARTERIAL BLOOD SPECIMENOrdering Facility: [facility] Address: [address] [place] [address] Performed By: #### A LLBG ####[facility]CL[facility] [id number] [place] [address] [place] Oxyhemoglobin (BldA) [Mass fraction] 95 % Normal 95-98 [facility] Comment on above: Order Comment: Speci men Type: ARTERIAL BLOOD SPECIMENOrdering Facility: [facility] Address: [address] [place] [address] Performed By: #### A LLBG ####[facility]CL[facility] [id number] [place] [address] [place] pH (Bld) 7.43 [pH] Normal 7.35-7.45 [facility] Comment on above: Order Comment: Speci men Type: ARTERIAL BLOOD SPECIMENOrdering Facility: [facility] Address: [address] [place] [address] Performed By: #### A LLBG ####[facility]CL[facility] [id number] [place] [address] [place] Potassium [Moles/Vol] 4.2 mmol/L Normal 3.5-5.0 [facility] Comment on above: Order Comment: Speci men Type: ARTERIAL BLOOD SPECIMENOrdering Facility: [facility] Address: [address] [place], [place] [id number] Performed By: #### A LLBG ####[facility]CL[facility] [id number] [place] [address] [place] Sodium [Moles/Vol] 128 mmol/L Low 136-144 [facility] Comment on above: Order Comment: Speci men Type: ARTERIAL BLOOD SPECIMENOrdering Facility: [facility] Address: [address] [place] [address] Performed By: #### A LLBG ####[facility]CL[facility] [id number] [place] [address] [place] Base excess Calc (Bld) [Moles/Vol] 1 mmol/L Normal 0-2 [facility] Comment on above: Order Comment: Speci men Type: ARTERIAL BLOOD SPECIMENOrdering Facility: [facility] Address: [address] [place] [address] Performed By: #### A LLBG ####[facility]CL[facility] [id number] [place] [address] [place] Body temperature 98.6 [degF] Normal [facility] Comment on above: Order Comment: Speci men Type: ARTERIAL BLOOD SPECIMENOrdering Facility: [facility] Address: [address] [place] [address] Performed By: #### A LLBG ####[facility]CL[facility] [id number] [place] [address] [place] Calcium.ionized (Bld) [Mass/Vol] 1.24 mmol/L Normal 1.08-1.30 [facility] Comment on above: Order Comment: Speci men Type: ARTERIAL BLOOD SPECIMENOrdering Facility: [facility] Address: [address] [place] [address] Performed By: #### A LLBG ####[facility]CL[facility] [id number] [place] [address] [place] Calcium.ionized adjusted to pH 7.4 (BldA) [Moles/Vol] 1.26 mmol/L Normal 1.08-1.30 [facility] Comment on above: Order Comment: Speci men Type: ARTERIAL BLOOD SPECIMENOrdering Facility: [facility] Address: [address] [place] [address] Performed By: #### A LLBG ####[facility] LABCL[facility] [id number] [place] [address] [place] Carboxyhemoglobin (BldA) [Mass fraction] 1.9 % Normal 0.0-2.0 [facility] Comment on above: Order Comment: Speci men Type: ARTERIAL BLOOD SPECIMENOrdering Facility: [facility] Address: [address] [place] [address] Result Comment: Carb oxyhemoglobin Reference Range for Smokers: 2.0-8.0% Performed By: #### A LLBG ####[facility]CL[facility] [id number] [place] [address] [place] CO2 (Bld) [Partial pressure] 38 mm Hg Normal 36-46 [facility] Comment on above: Order Comment: Speci men Type: ARTERIAL BLOOD SPECIMENOrdering Facility: [facility] Address: [address] [place] [address] Performed By: #### A LLBG ####[facility]CL[facility] [id number] [place] [address] [place] Glucose [Mass/Vol] 161 mg/dL High 60-105 [facility] Comment on above: Order Comment: Speci men Type: ARTERIAL BLOOD SPECIMENOrdering Facility: [facility] Address: [address] [place] [address] Performed By: #### A LLBG ####[facility] [id number] [place] [address] [place] HCO3 (Bld) [Moles/Vol] 25 mmol/L Normal 22-26 [facility] Comment on above: Order Comment: Speci men Type: ARTERIAL BLOOD SPECIMENOrdering Facility: [facility] Address: [address] [place] [address] Performed By: #### A LLBG ####[facility]CL[facility] [id number] [place] [address] [place] Hematocrit (Bld) [Volume fraction] 35.9 % Low 36.0-46.0 [facility] Comment on above: Order Comment: Speci men Type: ARTERIAL BLOOD SPECIMENOrdering Facility: [facility] Address: [address] [place] [address] Performed By: #### A LLBG ####[facility]CL[facility] [id number] [place] [address] [place] Hemoglobin (Bld) [Mass/Vol] 11.7 g/dL Normal 11.5-15.5 [facility] Comment on above: Order Comment: Speci men Type: ARTERIAL BLOOD SPECIMENOrdering Facility: [facility] Address: [address] [place] [address] Performed By: #### A LLBG ####[facility] [id number] [place] [address] [place] Lactate [Moles/Vol] 0.9 mmol/L Normal 0.5-2.2 [facility] Comment on above: Order Comment: Speci men Type: ARTERIAL BLOOD SPECIMENOrdering Facility: [facility] Address: [address] [place] [address] Performed By: #### A LLBG ####[facility] [id number] [place] [address] [place] LITERS 1 Liters/min Normal [facility] Comment on above: Order Comment: Speci men Type: ARTERIAL BLOOD SPECIMENOrdering Facility: [facility] Address: [address] [place] [address] Performed By: #### A LLBG ####[facility]CL[facility] [id number] [place] [address] [place] Methemoglobin (Bld) [Mass fraction] 0.7 % Normal 0.0-1.5 [facility] Comment on above: Order Comment: Speci men Type: ARTERIAL BLOOD SPECIMENOrdering Facility: [facility] Address: [address] [place] [address] Performed By: #### A LLBG ####[facility]CL[facility] [id number] [place] [address] [place] O2 THERAPY NC = Nasal Cannula Normal [facility] Comment on above: Order Comment: Speci men Type: ARTERIAL BLOOD SPECIMENOrdering Facility: [facility] Address: [address] [place] [address] Performed By: #### A LLBG ####[facility]CL[facility] [id number] [place] [address] [place] Oxygen (Bld) [Partial pressure] 77 mm Hg Low 85-95 [facility] Comment on above: Order Comment: Speci men Type: ARTERIAL BLOOD SPECIMENOrdering Facility: [facility] Address: [address] [place] [address] Performed By: #### A LLBG ####[facility]CL[facility] [id number] [place] [address] [place] Oxyhemoglobin (BldA) [Mass fraction] 94 % Low 95-98 [facility] Comment on above: Order Comment: Speci men Type: ARTERIAL BLOOD SPECIMENOrdering Facility: [facility] Address: [address] [place] [address] Performed By: #### A LLBG ####[facility]CL[facility] [id number] [place] [address] [place] pH (Bld) 7.42 [pH] Normal 7.35-7.45 [facility] Comment on above: Order Comment: Speci men Type: ARTERIAL BLOOD SPECIMENOrdering Facility: [facility] Address: [address] [place] [address] Performed By: #### A LLBG ####[facility]CL[facility] [id number] [place] [address] [place] Potassium [Moles/Vol] 3.9 mmol/L Normal 3.5-5.0 [facility] Comment on above: Order Comment: Speci men Type: ARTERIAL BLOOD SPECIMENOrdering Facility: [facility] Address: [address] [place] [address] Performed By: #### A LLBG ####[facility]CL[facility] [id number] [place] [address] [place] Sodium [Moles/Vol] 129 mmol/L Low 136-144 [facility] Comment on above: Order Comment: Speci men Type: ARTERIAL BLOOD SPECIMENOrdering Facility: [facility] Address: [address] [place] [address] Performed By: #### A LLBG ####[facility] [id number] [place] [address] [place] Base excess Calc (Bld) [Moles/Vol] 0 mmol/L Normal 0-2 [facility] Comment on above: Order Comment: Speci men Type: ARTERIAL BLOOD SPECIMENOrdering Facility: [facility] Address: [address] [place] [address] Performed By: #### A LLBG ####[facility] [id number] [place] [address] [place] Body temperature 98.6 [degF] Normal [facility] Comment on above: Order Comment: Speci men Type: ARTERIAL BLOOD SPECIMENOrdering Facility: [facility] Address: [address] [place] [address] Performed By: #### A LLBG ####[facility] [id number] [place] [address] [place] Calcium.ionized (Bld) [Mass/Vol] 1.24 mmol/L Normal 1.08-1.30 [facility] Comment on above: Order Comment: Speci men Type: ARTERIAL BLOOD SPECIMENOrdering Facility: [facility] Address: [address] [place] [address] Performed By: #### A LLBG ####[facility] [id number] [place] [address] [place] Calcium.ionized adjusted to pH 7.4 (BldA) [Moles/Vol] 1.25 mmol/L Normal 1.08-1.30 [facility] Comment on above: Order Comment: Speci men Type: ARTERIAL BLOOD SPECIMENOrdering Facility: [facility] Address: [address] [place] [address] Performed By: #### A LLBG ####[facility] [id number] [place] [address] [place] Carboxyhemoglobin (BldA) [Mass fraction] 1.1 % Normal 0.0-2.0 [facility] Comment on above: Order Comment: Speci men Type: ARTERIAL BLOOD SPECIMENOrdering Facility: [facility] Address: [address] [place] [address] Result Comment: Carb oxyhemoglobin Reference Range for Smokers: 2.0-8.0% Performed By: #### A LLBG ####[facility] [id number] [place] [address] [place] CO2 (Bld) [Partial pressure] 38 mm Hg Normal 36-46 [facility] Comment on above: Order Comment: Speci men Type: ARTERIAL BLOOD SPECIMENOrdering Facility: [facility] Address: [address] [place] [address] Performed By: #### A LLBG ####[facility] LABIA [id number] [place] [address] [place] Glucose [Mass/Vol] 137 mg/dL High 60-105 [facility] Comment on above: Order Comment: Speci men Type: ARTERIAL BLOOD SPECIMENOrdering Facility: [facility] Address: [address] [place] [address] Performed By: #### A LLBG ####[facility] LABCLIA [id number] [place] [address] [place] HCO3 (Bld) [Moles/Vol] 24 mmol/L Normal 22-26 [facility] Comment on above: Order Comment: Speci men Type: ARTERIAL BLOOD SPECIMENOrdering Facility: [facility] Address: [address] [place] [address] Performed By: #### A LLBG ####[facility] LABCLIA [id number] [place] [address] [place] Hematocrit (Bld) [Volume fraction] 35.6 % Low 36.0-46.0 [facility] Comment on above: Order Comment: Speci men Type: ARTERIAL BLOOD SPECIMENOrdering Facility: [facility] Address: [address] [place] [address] Performed By: #### A LLBG ####[facility] LABCL[facility] [id number] [place] [address] [place] Hemoglobin (Bld) [Mass/Vol] 11.5 g/dL Normal 11.5-15.5 [facility] Comment on above: Order Comment: Speci men Type: ARTERIAL BLOOD SPECIMENOrdering Facility: [facility] Address: [address] [place] [address] Performed By: #### A LLBG ####[facility] LABCL[facility] [id number] [place] [address] [place] Lactate [Moles/Vol] 0.9 mmol/L Normal 0.5-2.2 [facility] Comment on above: Order Comment: Speci men Type: ARTERIAL BLOOD SPECIMENOrdering Facility: [facility] Address: [address] [place] [address] Performed By: #### A LLBG ####[facility] LABCL[facility] [id number] [place] [address] [place] LITERS 1 Liters/min Normal [facility] Comment on above: Order Comment: Speci men Type: ARTERIAL BLOOD SPECIMENOrdering Facility: [facility] Address: [address] [id number] Performed By: #### A LLBG ####[facility] LABCLIA [id number] [address] [address] [place] Methemoglobin (Bld) [Mass fraction] 1.2 % Normal 0.0-1.5 [facility] Comment on above: Order Comment: Speci men Type: ARTERIAL BLOOD SPECIMENOrdering Facility: [facility] Address: [address] [id number] Performed By: #### A LLBG ####[facility] LABCLIA [id number] [place] [address] [place] O2 THERAPY NC = Nasal Cannula Normal [facility] Comment on above: Order Comment: Speci men Type: ARTERIAL BLOOD SPECIMENOrdering Facility: [facility] Address: [address] [id number] Performed By: #### A LLBG ####[facility] LABCLIA [id number] [place] [address] [place] Oxygen (Bld) [Partial pressure] 98 mm Hg High 85-95 [facility] Comment on above: Order Comment: Speci men Type: ARTERIAL BLOOD SPECIMENOrdering Facility: [facility] Address: [address] [id number] Performed By: #### A LLBG ####[facility] LABCLIA [id number] [place] [id number] [place] Oxyhemoglobin (BldA) [Mass fraction] 95 % Normal 95-98 [facility] Comment on above: Order Comment: Speci men Type: ARTERIAL BLOOD SPECIMENOrdering Facility: [facility] Address: [address] [id number] Performed By: #### A LLBG ####[facility] LABCL[facility] [id number] [place] [address] [place] pH (Bld) 7.41 [pH] Normal 7.35-7.45 [facility] Comment on above: Order Comment: Speci men Type: ARTERIAL BLOOD SPECIMENOrdering Facility: [facility] Address: [address] [place] [address] Performed By: #### A LLBG ####[facility] [id number] [place] [address] [place] Potassium [Moles/Vol] 4.2 mmol/L Normal 3.5-5.0 [facility] Comment on above: Order Comment: Speci men Type: ARTERIAL BLOOD SPECIMENOrdering Facility: [facility] Address: [address] [place] [address] Performed By: #### A LLBG ####[facility]IA [id number] [place] [address] [place] Sodium [Moles/Vol] 129 mmol/L Low 136-144 [facility] Comment on above: Order Comment: Speci men Type: ARTERIAL BLOOD SPECIMENOrdering Facility: [facility] Address: [address] [place] [address] Performed By: #### A LLBG ####[facility] [id number] [place] [address] [place] Base excess Calc (Bld) [Moles/Vol] 2 mmol/L Normal 0-2 [facility] Comment on above: Order Comment: Speci men Type: ARTERIAL BLOOD SPECIMENOrdering Facility: [facility] Address: [address] [place] [address] Performed By: #### A LLBG ####[facility] [id number] [place] [address] [place] Body temperature 98.6 [degF] Normal [facility] Comment on above: Order Comment: Speci men Type: ARTERIAL BLOOD SPECIMENOrdering Facility: [facility] Address: [address] [place] [address] Performed By: #### A LLBG ####[facility] [id number] [place] [address] [place] Calcium.ionized (Bld) [Mass/Vol] 1.26 mmol/L Normal 1.08-1.30 [facility] Comment on above: Order Comment: Speci men Type: ARTERIAL BLOOD SPECIMENOrdering Facility: [facility] Address: [address] [place] [address] Performed By: #### A LLBG ####[facility] [id number] [place] [address] [place] Calcium.ionized adjusted to pH 7.4 (BldA) [Moles/Vol] 1.28 mmol/L Normal 1.08-1.30 [facility] Comment on above: Order Comment: Speci men Type: ARTERIAL BLOOD SPECIMENOrdering Facility: [facility] Address: [address] [place] [address] Performed By: #### A LLBG ####[facility] [id number] [place] [address] [place] Carboxyhemoglobin (BldA) [Mass fraction] 1.8 % Normal 0.0-2.0 [facility] Comment on above: Order Comment: Speci men Type: ARTERIAL BLOOD SPECIMENOrdering Facility: [facility] Address: [address] [place] [address] Result Comment: Carb oxyhemoglobin Reference Range for Smokers: 2.0-8.0% Performed By: #### A LLBG ####[facility] [id number] [place] [address] [place] CO2 (Bld) [Partial pressure] 40 mm Hg Normal 36-46 [facility] Comment on above: Order Comment: Speci men Type: ARTERIAL BLOOD SPECIMENOrdering Facility: [facility] Address: [address] [place] [address] Performed By: #### A LLBG ####[facility] LABCL[facility] [id number] [place] [address] [place] Glucose [Mass/Vol] 118 mg/dL High 60-105 [facility] Comment on above: Order Comment: Speci men Type: ARTERIAL BLOOD SPECIMENOrdering Facility: [facility] Address: [address] [place] [address] Performed By: #### A LLBG ####[facility] LABCL[facility] [id number] [place] [address] [place] HCO3 (Bld) [Moles/Vol] 26 mmol/L Normal 22-26 [facility] Comment on above: Order Comment: Speci men Type: ARTERIAL BLOOD SPECIMENOrdering Facility: [facility] Address: [address] [place] [address] Performed By: #### A LLBG ####[facility] LABCL[facility] [id number] [place] [address] [place] Hematocrit (Bld) [Volume fraction] 37.5 % Normal 36.0-46.0 [facility] Comment on above: Order Comment: Speci men Type: ARTERIAL BLOOD SPECIMENOrdering Facility: [facility] Address: [address] [place] [address] Performed By: #### A LLBG ####[facility] LABCL[facility] [id number] [place] [address] [place] Hemoglobin (Bld) [Mass/Vol] 12.2 g/dL Normal 11.5-15.5 [facility] Comment on above: Order Comment: Speci men Type: ARTERIAL BLOOD SPECIMENOrdering Facility: [facility] Address: [address] [place] [address] Performed By: #### A LLBG ####[facility] LABCLIA [id number] [place] [address] [place] Lactate [Moles/Vol] 1.6 mmol/L Normal 0.5-2.2 [facility] Comment on above: Order Comment: Speci men Type: ARTERIAL BLOOD SPECIMENOrdering Facility: [facility] Address: [address] [place] [address] Performed By: #### A LLBG ####[facility] LABCLIA [id number] [place] [address] [place] Methemoglobin (Bld) [Mass fraction] 1.3 % Normal 0.0-1.5 [facility] Comment on above: Order Comment: Speci men Type: ARTERIAL BLOOD SPECIMENOrdering Facility: [facility] Address: [address] [place] [address] Performed By: #### A LLBG ####[facility] LABCLIA [id number] [place] [address] [place] O2 THERAPY NC = Nasal Cannula Normal [facility] Comment on above: Order Comment: Speci men Type: ARTERIAL BLOOD SPECIMENOrdering Facility: [facility] Address: [address] [place] [address] Performed By: #### A LLBG ####[facility] LABCL[facility] [id number] [place] [address] [place] Oxygen (Bld) [Partial pressure] 85 mm Hg Normal 85-95 [facility] Comment on above: Order Comment: Speci men Type: ARTERIAL BLOOD SPECIMENOrdering Facility: [facility] Address: [address] [place] [address] Performed By: #### A LLBG ####[facility] LABCLIA [id number] [place] [address] [place] Oxyhemoglobin (BldA) [Mass fraction] 94 % Low 95-98 [facility] Comment on above: Order Comment: Speci men Type: ARTERIAL BLOOD SPECIMENOrdering Facility: [facility] Address: [address] [place] [address] Performed By: #### A LLBG ####[facility] LABCL[facility] [id number] [place] [address] [place] pH (Bld) 7.42 [pH] Normal 7.35-7.45 [facility] Comment on above: Order Comment: Speci men Type: ARTERIAL BLOOD SPECIMENOrdering Facility: [facility] Address: [address] [place] [address] Performed By: #### A LLBG ####[facility] LABCL[facility] [id number] [place] [address] [place] Potassium [Moles/Vol] 4.4 mmol/L Normal 3.5-5.0 [facility] Comment on above: Order Comment: Speci men Type: ARTERIAL BLOOD SPECIMENOrdering Facility: [facility] Address: [address] [place] [address] Performed By: #### A LLBG ####[facility] LABCL[facility] [id number] [place] [address] [place] Sodium [Moles/Vol] 132 mmol/L Low 136-144 [facility] Comment on above: Order Comment: Speci men Type: ARTERIAL BLOOD SPECIMENOrdering Facility: [facility] Address: [address] [place] [address] Performed By: #### A LLBG ####[facility]CL[facility] [id number] [place] [address] [place] Base excess Calc (Bld) [Moles/Vol] 2 mmol/L Normal 0-2 [facility] Comment on above: Order Comment: Speci men Type: ARTERIAL BLOOD SPECIMENOrdering Facility: [facility] Address: [address] [place] [address] Performed By: #### A LLBG ####[facility]CL[facility] [id number] [place] [address] [place] Body temperature 98.6 [degF] Normal [facility] Comment on above: Order Comment: Speci men Type: ARTERIAL BLOOD SPECIMENOrdering Facility: [facility] Address: [address] [place] [address] Performed By: #### A LLBG ####[facility] [id number] [place] [address] [place] Calcium.ionized (Bld) [Mass/Vol] 1.25 mmol/L Normal 1.08-1.30 [facility] Comment on above: Order Comment: Speci men Type: ARTERIAL BLOOD SPECIMENOrdering Facility: [facility] Address: [address] [place] [address] Performed By: #### A LLBG ####[facility] [id number] [place] [address] [place] Calcium.ionized adjusted to pH 7.4 (BldA) [Moles/Vol] 1.24 mmol/L Normal 1.08-1.30 [facility] Comment on above: Order Comment: Speci men Type: ARTERIAL BLOOD SPECIMENOrdering Facility: [facility] Address: [address] [place] [address] Performed By: #### A LLBG ####[facility] [id number] [place] [address] [place] Carboxyhemoglobin (BldA) [Mass fraction] 1.5 % Normal 0.0-2.0 [facility] Comment on above: Order Comment: Speci men Type: ARTERIAL BLOOD SPECIMENOrdering Facility: [facility] Address: [address] [place] [address] Result Comment: Carb oxyhemoglobin Reference Range for Smokers: 2.0-8.0% Performed By: #### A LLBG ####[facility] [id number] [place] [address] [place] CO2 (Bld) [Partial pressure] 44 mm Hg Normal 36-46 [facility] Comment on above: Order Comment: Speci men Type: ARTERIAL BLOOD SPECIMENOrdering Facility: [facility] Address: [address] [place] [address] Performed By: #### A LLBG ####[facility] LABCL[facility] [id number] [place] [address] [place] Glucose [Mass/Vol] 139 mg/dL High 60-105 [facility] Comment on above: Order Comment: Speci men Type: ARTERIAL BLOOD SPECIMENOrdering Facility: [facility] Address: [address] [place] [address] Performed By: #### A LLBG ####[facility]CL[facility] [id number] [place] [address] [place] HCO3 (Bld) [Moles/Vol] 27 mmol/L High 22-26 [facility] Comment on above: Order Comment: Speci men Type: ARTERIAL BLOOD SPECIMENOrdering Facility: [facility] Address: [address] [place] [address] Performed By: #### A LLBG ####[facility]CL[facility] [id number] [place] [address] [place] Hematocrit (Bld) [Volume fraction] 37.0 % Normal 36.0-46.0 [facility] Comment on above: Order Comment: Speci men Type: ARTERIAL BLOOD SPECIMENOrdering Facility: [facility] Address: [address] [place] [address] Performed By: #### A LLBG ####[facility]CL[facility] [id number] [place] [address] [place] Hemoglobin (Bld) [Mass/Vol] 12.0 g/dL Normal 11.5-15.5 [facility] Comment on above: Order Comment: Speci men Type: ARTERIAL BLOOD SPECIMENOrdering Facility: [facility] Address: [address] [place] [address] Performed By: #### A LLBG ####[facility]CL[facility] [id number] [place] [address] [place] Lactate [Moles/Vol] 1.6 mmol/L Normal 0.5-2.2 [facility] Comment on above: Order Comment: Speci men Type: ARTERIAL BLOOD SPECIMENOrdering Facility: [facility] Address: [address] [place] [address] Performed By: #### A LLBG ####[facility]CL[facility] [id number] [place] [address] [place] Methemoglobin (Bld) [Mass fraction] 1.5 % Normal 0.0-1.5 [facility] Comment on above: Order Comment: Speci men Type: ARTERIAL BLOOD SPECIMENOrdering Facility: [facility] Address: [address] [place] [address] Performed By: #### A LLBG ####[facility]CL[facility] [id number] [place] [address] [place] O2 THERAPY NC = Nasal Cannula Normal [facility] Comment on above: Order Comment: Speci men Type: ARTERIAL BLOOD SPECIMENOrdering Facility: [facility] Address: [address] [place] [address] Performed By: #### A LLBG ####[facility] LABCL[facility] [id number] [place] [address] [place] Oxygen (Bld) [Partial pressure] 106 mm Hg High 85-95 [facility] Comment on above: Order Comment: Speci men Type: ARTERIAL BLOOD SPECIMENOrdering Facility: [facility] Address: [address] [place] [address] Performed By: #### A LLBG ####[facility]CL[facility] [id number] [place] [address] [place] Oxyhemoglobin (BldA) [Mass fraction] 95 % Normal 95-98 [facility] Comment on above: Order Comment: Speci men Type: ARTERIAL BLOOD SPECIMENOrdering Facility: [facility] Address: [address] [place] [address] Performed By: #### A LLBG ####[facility]CL[facility] [id number] [place] [address] [place] pH (Bld) 7.40 [pH] Normal 7.35-7.45 [facility] Comment on above: Order Comment: Speci men Type: ARTERIAL BLOOD SPECIMENOrdering Facility: [facility] Address: [address] [place] [address] Performed By: #### A LLBG ####[facility]CL[facility] [id number] [place] [address] [place] Potassium [Moles/Vol] 4.2 mmol/L Normal 3.5-5.0 [facility] Comment on above: Order Comment: Speci men Type: ARTERIAL BLOOD SPECIMENOrdering Facility: [facility] Address: [address] [place] [address] Performed By: #### A LLBG ####[facility] [id number] [place] [address] [place] Sodium [Moles/Vol] 131 mmol/L Low 136-144 [facility] Comment on above: Order Comment: Speci men Type: ARTERIAL BLOOD SPECIMENOrdering Facility: [facility] Address: [address] [place] [address] Performed By: #### A LLBG ####[facility] [id number] [place] [address] [place] Base excess Calc (Bld) [Moles/Vol] 1 mmol/L Normal 0-2 [facility] Comment on above: Order Comment: Speci men Type: ARTERIAL BLOOD SPECIMENOrdering Facility: [facility] Address: [address] [place] [address] Performed By: #### A LLBG ####[facility] [id number] [place] [address] [place] Body temperature 98.6 [degF] Normal [facility] Comment on above: Order Comment: Speci men Type: ARTERIAL BLOOD SPECIMENOrdering Facility: [facility] Address: [address] [place] [address] Performed By: #### A LLBG ####[facility]CL[facility] [id number] [place] [address] [place] Calcium.ionized (Bld) [Mass/Vol] 1.28 mmol/L Normal 1.08-1.30 [facility] Comment on above: Order Comment: Speci men Type: ARTERIAL BLOOD SPECIMENOrdering Facility: [facility] Address: [address] [place] [address] Performed By: #### A LLBG ####[facility] [id number] [place] [address] [place] Calcium.ionized adjusted to pH 7.4 (BldA) [Moles/Vol] 1.28 mmol/L Normal 1.08-1.30 [facility] Comment on above: Order Comment: Speci men Type: ARTERIAL BLOOD SPECIMENOrdering Facility: [facility] Address: [address] [place] [address] Performed By: #### A LLBG ####[facility] [id number] [place] [address] [place] Carboxyhemoglobin (BldA) [Mass fraction] 1.1 % Normal 0.0-2.0 [facility] Comment on above: Order Comment: Speci men Type: ARTERIAL BLOOD SPECIMENOrdering Facility: [facility] Address: [address] [place] [address] Result Comment: Carb oxyhemoglobin Reference Range for Smokers: 2.0-8.0% Performed By: #### A LLBG ####[facility] [id number] [place] [address] [place] CO2 (Bld) [Partial pressure] 42 mm Hg Normal 36-46 [facility] Comment on above: Order Comment: Speci men Type: ARTERIAL BLOOD SPECIMENOrdering Facility: [facility] Address: [address] [place] [address] Performed By: #### A LLBG ####[facility]CL[facility] [id number] [place] [address] [place] Glucose [Mass/Vol] 153 mg/dL High 60-105 [facility] Comment on above: Order Comment: Speci men Type: ARTERIAL BLOOD SPECIMENOrdering Facility: [facility] Address: [address] [place] [address] Performed By: #### A LLBG ####[facility] [id number] [place] [address] [place] HCO3 (Bld) [Moles/Vol] 25 mmol/L Normal 22-26 [facility] Comment on above: Order Comment: Speci men Type: ARTERIAL BLOOD SPECIMENOrdering Facility: [facility] Address: [address] [place] [address] Performed By: #### A LLBG ####[facility] [id number] [place] [address] [place] Hematocrit (Bld) [Volume fraction] 37.6 % Normal 36.0-46.0 [facility] Comment on above: Order Comment: Speci men Type: ARTERIAL BLOOD SPECIMENOrdering Facility: [facility] Address: [address] [place] [address] Performed By: #### A LLBG ####[facility] [id number] [place] [address] [place] Hemoglobin (Bld) [Mass/Vol] 12.2 g/dL Normal 11.5-15.5 [facility] Comment on above: Order Comment: Speci men Type: ARTERIAL BLOOD SPECIMENOrdering Facility: [facility] Address: [address] [place] [address] Performed By: #### A LLBG ####[facility] [id number] [place] [address] [place] Lactate [Moles/Vol] 2.0 mmol/L Normal 0.5-2.2 [facility] Comment on above: Order Comment: Speci men Type: ARTERIAL BLOOD SPECIMENOrdering Facility: [facility] Address: [address] [place], [place] [address] Performed By: #### A LLBG ####[facility] [id number] [place] [address] [place] Methemoglobin (Bld) [Mass fraction] 1.2 % Normal 0.0-1.5 [facility] Comment on above: Order Comment: Speci men Type: ARTERIAL BLOOD SPECIMENOrdering Facility: [facility] Address: [address] [place] [address] Performed By: #### A LLBG ####[facility] [id number] [place] [address] [place] O2 THERAPY NC = Nasal Cannula Normal [facility] Comment on above: Order Comment: Speci men Type: ARTERIAL BLOOD SPECIMENOrdering Facility: [facility] Address: [address] [place] [address] Performed By: #### A LLBG ####[facility] [id number] [place] [address] [place] Oxygen (Bld) [Partial pressure] 115 mm Hg High 85-95 [facility] Comment on above: Order Comment: Speci men Type: ARTERIAL BLOOD SPECIMENOrdering Facility: [facility] Address: [address] [place] [address] Performed By: #### A LLBG ####[facility] [id number] [place] [id number] [place] Oxyhemoglobin (BldA) [Mass fraction] 96 % Normal 95-98 [facility] Comment on above: Order Comment: Speci men Type: ARTERIAL BLOOD SPECIMENOrdering Facility: [facility] Address: [address] [place] [address] Performed By: #### A LLBG ####[facility] [id number] [place] [address] [place] pH (Bld) 7.40 [pH] Normal 7.35-7.45 [facility] Comment on above: Order Comment: Speci men Type: ARTERIAL BLOOD SPECIMENOrdering Facility: [facility] Address: [address] [place] [address] Performed By: #### A LLBG ####[facility] [id number] [place] [address] [place] Potassium [Moles/Vol] 4.5 mmol/L Normal 3.5-5.0 [facility] Comment on above: Order Comment: Speci men Type: ARTERIAL BLOOD SPECIMENOrdering Facility: [facility] Address: [address] [place] [address] Performed By: #### A LLBG ####[facility] [id number] [place] [address] [place] Sodium [Moles/Vol] 132 mmol/L Low 136-144 [facility] Comment on above: Order Comment: Speci men Type: ARTERIAL BLOOD SPECIMENOrdering Facility: [facility] Address: [address] [place] [address] Performed By: #### A LLBG ####[facility] [id number] [place] [address] [place] CASE MGT INIT ASSESon 2023 CASE MGT INIT ASSES Normal [facility] CBC panel Auto (Bld)on 07-30 Erythrocyte distribution width (RBC) [Ratio] 12.1 % Normal 11.5-15.0 [facility] Comment on above: Order Comment: Speci men Type: BLOOD SPECIMENOrdering Facility: [facility] Address: [address] [place] [address] Performed By: #### 5 8410-2 ####[facility] [id number] [place] [address] [place] Hematocrit (Bld) [Volume fraction] 34.5 % Low 36.0-46.0 [facility] Comment on above: Order Comment: Speci men Type: BLOOD SPECIMENOrdering Facility: [facility] Address: [address] [place] [address] Performed By: #### 5 8410-2 ####[facility] [id number] [place] [address] [place] Hemoglobin (Bld) [Mass/Vol] 12.0 g/dL Normal 11.5-15.5 [facility] Comment on above: Order Comment: Speci men Type: BLOOD SPECIMENOrdering Facility: [facility] Address: [address] [place] [address] Performed By: #### 5 8410-2 ####[facility] [id number] [place] [address] [place] MCH (RBC) [Entitic mass] 31.6 pg Normal 26.0-34.0 [facility] Comment on above: Order Comment: Speci men Type: BLOOD SPECIMENOrdering Facility: [facility] Address: [address] [place] [address] Performed By: #### 5 8410-2 ####[facility] [id number] [place] [address] [place] MCHC (RBC) [Mass/Vol] 34.8 g/dL Normal 30.5-36.0 [facility] Comment on above: Order Comment: Speci men Type: BLOOD SPECIMENOrdering Facility: [facility] Address: [address] [place] [address] Performed By: #### 5 8410-2 ####[facility] [id number] [place] [address] [place] MCV (RBC) [Entitic vol] 90.8 fL Normal 80.0-100.0 [facility] Comment on above: Order Comment: Speci men Type: BLOOD SPECIMENOrdering Facility: [facility] Address: [address] [place] [address] Performed By: #### 5 8410-2 ####[facility] LABCLIA [id number] [place] [address] [place] Nucleated RBC (Bld) [#/Vol] 10*3/uL Normal <0.01 [facility] Comment on above: Order Comment: Speci men Type: BLOOD SPECIMENOrdering Facility: [facility] Address: [address] [place] [address] Performed By: #### 5 8410-2 ####[facility] LABCL[facility] [id number] [place] [address] [place] Platelet mean volume (Bld) [Entitic vol] 9.7 fL Normal 9.0-12.7 [facility] Comment on above: Order Comment: Speci men Type: BLOOD SPECIMENOrdering Facility: [facility] Address: [address] [place] [address] Performed By: #### 5 8410-2 ####[facility] [id number] [place] [address] [place] Platelets (Bld) [#/Vol] 169 10*3/uL Normal 150-400 [facility] Comment on above: Order Comment: Speci men Type: BLOOD SPECIMENOrdering Facility: [facility] Address: [address] [place] [address] Performed By: #### 5 8410-2 ####[facility] LABCL[facility] [id number] [place] [address] [place] RBC (Bld) [#/Vol] 3.80 10*6/uL Low 3.90-5.20 [facility] Comment on above: Order Comment: Speci men Type: BLOOD SPECIMENOrdering Facility: [facility] Address: [address] [place] [address] Performed By: #### 5 8410-2 ####[facility] LABCL[facility] [id number] [place] [address] [place] WBC (Bld) [#/Vol] 10.11 10*3/uL Normal 3.70-11.00 [facility] Comment on above: Order Comment: Speci men Type: BLOOD SPECIMENOrdering Facility: [facility] Address: [address] [place] [address] Performed By: #### 5 8410-2 ####[facility] [id number] [place] [address] [place] Comprehensive metabolic 2000 panelon 07-30-2023 Albumin [Mass/Vol] 3.1 g/dL Low 3.9-4.9 [facility] Comment on above: Order Comment: Speci men Type: BLOOD SPECIMENOrdering Facility: [facility] Address: [address] [place] [address] Performed By: #### 2 4323-8, HSTNT ####[facility] [id number] [place] [address] [place] ALP [Catalytic activity/Vol] 56 U/L Normal 34-123 [facility] Comment on above: Order Comment: Speci men Type: BLOOD SPECIMENOrdering Facility: [facility] Address: [address] [place] [address] Performed By: #### 2 4323-8, HSTNT ####[facility] LABCL[facility] [id number] [place] [address] [place] ALT [Catalytic activity/Vol] 14 U/L Normal 7-38 [facility] Comment on above: Order Comment: Speci men Type: BLOOD SPECIMENOrdering Facility: [facility] Address: [address] [place] [address] Performed By: #### 2 4323-8, HSTNT ####[facility] LABCL[facility] [id number] [place] [address] [place] Anion gap [Moles/Vol] 10 mmol/L Normal 9-18 [facility] Comment on above: Order Comment: Speci men Type: BLOOD SPECIMENOrdering Facility: [facility] Address: [address] [place] [address] Performed By: #### 2 4323-8, HSTNT ####[facility] LABCLIA [id number] [place] [address] [place] AST [Catalytic activity/Vol] 29 U/L Normal 13-35 [facility] Comment on above: Order Comment: Speci men Type: BLOOD SPECIMENOrdering Facility: [facility] Address: [address] [place] [address] Performed By: #### 2 4323-8, HSTNT ####[facility] LABCL[facility] [id number] [place] [address] [place] Bilirubin [Mass/Vol] 0.4 mg/dL Normal 0.2-1.3 [facility] Comment on above: Order Comment: Speci men Type: BLOOD SPECIMENOrdering Facility: [facility] Address: [address] [place] [address] Performed By: #### 2 4323-8, HSTNT ####[facility] LABCL[facility] [id number] [place] [address] [place] Calcium [Mass/Vol] 8.9 mg/dL Normal 8.5-10.2 [facility] Comment on above: Order Comment: Speci men Type: BLOOD SPECIMENOrdering Facility: [facility] Address: [address] [place] [address] Performed By: #### 2 4323-8, HSTNT ####[facility] LABCL[facility] [id number] [place] [address] [place] Chloride [Moles/Vol] 101 mmol/L Normal 97-105 [facility] Comment on above: Order Comment: Speci men Type: BLOOD SPECIMENOrdering Facility: [facility] Address: [address] [place] [address] Performed By: #### 2 4323-8, HSTNT ####[facility] LABCL[facility] [id number] [place] [address] [place] CO2 [Moles/Vol] 23 mmol/L Normal 22-30 [facility] Comment on above: Order Comment: Speci men Type: BLOOD SPECIMENOrdering Facility: [facility] Address: [address] [place] [address] Performed By: #### 2 4323-8, HSTNT ####[facility] LABCL[facility] [id number] [place] [address] [place] Creatinine [Mass/Vol] 0.70 mg/dL Normal 0.58-0.96 [facility] Comment on above: Order Comment: Speci men Type: BLOOD SPECIMENOrdering Facility: [facility] Address: [address] [place] [address] Performed By: #### 2 4323-8, HSTNT ####[facility] LABCL[facility] [id number] [place] [address] [place] Creatinine and Glomerular filtration rate.predicted panel (S/P/Bld) 96 mL/min/1.73m??? Normal >=60 [facility] Comment on above: Order Comment: Speci men Type: BLOOD SPECIMENOrdering Facility: [facility] Address: [address] [place] [address] Result Comment: Annelise mated Glomerular Filtration Rate [...] GFR. Performed By: #### 2 4323-8, HSTNT ####[facility] LABCL[facility] [id number] [place] [address] [place] Glucose [Mass/Vol] 145 mg/dL High 74-99 [facility] Comment on above: Order Comment: Speci men Type: BLOOD SPECIMENOrdering Facility: [facility] Address: [address] [place] [address] Result Comment: The [place] [employer] (ADA) provides guidance for cutoff [...] Standards of Medical Care in Diabetes 2016, [place] [employer]. Diabetes Care. 2016.39(Suppl 1). Performed By: #### 2 4323-8, HSTNT ####[facility] [id number] [place] [address] [place] Potassium [Moles/Vol] 4.7 mmol/L Normal 3.7-5.1 [facility] Comment on above: Order Comment: Speci men Type: BLOOD SPECIMENOrdering Facility: [facility] Address: [address] [place] [address] Performed By: #### 2 4323-8, HSTNT ####[facility] [id number] [place] [address] [place] Protein [Mass/Vol] 5.2 g/dL Low 6.3-8.0 [facility] Comment on above: Order Comment: Speci men Type: BLOOD SPECIMENOrdering Facility: [facility] Address: [address] [place] [address] Performed By: #### 2 4323-8, HSTNT ####[facility] LABCL[facility] [id number] [place] [address] [place] Sodium [Moles/Vol] 134 mmol/L Low 136-144 [facility] Comment on above: Order Comment: Speci men Type: BLOOD SPECIMENOrdering Facility: [facility] Address: [address] [place] [address] Performed By: #### 2 4323-8, HSTNT ####[facility] LABCL[facility] [id number] [place] [address] [place] Urea nitrogen [Mass/Vol] 20 mg/dL Normal 7-21 [facility] Comment on above: Order Comment: Speci men Type: BLOOD SPECIMENOrdering Facility: [facility] Address: [address] [place] [address] Performed By: #### 2 4323-8, HSTNT ####[facility] LABCL[facility] [id number] [place] [address] [place] HIGH SENSITIVITY TROPONIN To n 07-30-2023 Troponin T.cardiac High sensitivity method [Mass/Vol] 317 ng/L High <12 [facility] Comment on above: Order Comment: Speci men Type: BLOOD SPECIMENOrdering Facility: [facility] Address: [address] [place] [address] Result Comment: When assessing risk for acute [...] MACE. Performed By: #### 2 4323-8, HSTNT ####[facility] LABCLIA [id number] [place] [id number] [place] XR CHEST 1V FRONTAL PORTon 0 07-30-2023 XR CHEST 1V FRONTAL PORT Normal [facility] ANES POSTPROC EVALon 024 ANES POSTPROC EVAL Normal [facility] ANES PRE-OPon 07-29-2023 ANES PRE-OP Normal [facility] ARTERIAL BLOOD GASESon 07-29 Base excess Calc (Bld) [Moles/Vol] 1 mmol/L Normal 0-2 [facility] Comment on above: Order Comment: Speci men Type: ARTERIAL BLOOD SPECIMENOrdering Facility: [facility] Address: [address] [place] [address] Performed By: #### A LLBG ####[facility]CL[facility] [id number] [place] [address] [place] Body temperature 98.6 [degF] Normal [facility] Comment on above: Order Comment: Speci men Type: ARTERIAL BLOOD SPECIMENOrdering Facility: [facility] Address: [address] [place] [address] Performed By: #### A LLBG ####[facility] LABCL[facility] [id number] [place] [address] [place] Calcium.ionized (Bld) [Mass/Vol] 1.26 mmol/L Normal 1.08-1.30 [facility] Comment on above: Order Comment: Speci men Type: ARTERIAL BLOOD SPECIMENOrdering Facility: [facility] Address: [address] [place] [address] Performed By: #### A LLBG ####[facility]CL[facility] [id number] [place] [address] [place] Calcium.ionized adjusted to pH 7.4 (BldA) [Moles/Vol] 1.25 mmol/L Normal 1.08-1.30 [facility] Comment on above: Order Comment: Speci men Type: ARTERIAL BLOOD SPECIMENOrdering Facility: [facility] Address: [address] [place] [address] Performed By: #### A LLBG ####[facility]CL[facility] [id number] [place] [address] [place] Carboxyhemoglobin (BldA) [Mass fraction] 1.2 % Normal 0.0-2.0 [facility] Comment on above: Order Comment: Speci men Type: ARTERIAL BLOOD SPECIMENOrdering Facility: [facility] Address: [address] [place] [address] Result Comment: Carb oxyhemoglobin Reference Range for Smokers: 2.0-8.0% Performed By: #### A LLBG ####[facility] [id number] [place] [address] [place] CO2 (Bld) [Partial pressure] 43 mm Hg Normal 36-46 [facility] Comment on above: Order Comment: Speci men Type: ARTERIAL BLOOD SPECIMENOrdering Facility: [facility] Address: [address] [place] [address] Performed By: #### A LLBG ####[facility] [id number] [place] [address] [place] Glucose [Mass/Vol] 164 mg/dL High 60-105 [facility] Comment on above: Order Comment: Speci men Type: ARTERIAL BLOOD SPECIMENOrdering Facility: [facility] Address: [address] [place] [address] Performed By: #### A LLBG ####[facility] [id number] [place] [address] [place] HCO3 (Bld) [Moles/Vol] 26 mmol/L Normal 22-26 [facility] Comment on above: Order Comment: Speci men Type: ARTERIAL BLOOD SPECIMENOrdering Facility: [facility] Address: [address] [place] [address] Performed By: #### A LLBG ####[facility] [id number] [place] [address] [place] Hematocrit (Bld) [Volume fraction] 36.7 % Normal 36.0-46.0 [facility] Comment on above: Order Comment: Speci men Type: ARTERIAL BLOOD SPECIMENOrdering Facility: [facility] Address: [address] [place] [address] Performed By: #### A LLBG ####[facility] [id number] [place] [address] [place] Hemoglobin (Bld) [Mass/Vol] 11.9 g/dL Normal 11.5-15.5 [facility] Comment on above: Order Comment: Speci men Type: ARTERIAL BLOOD SPECIMENOrdering Facility: [facility] Address: [address] [place] [address] Performed By: #### A LLBG ####[facility] [id number] [place] [address] [place] Lactate [Moles/Vol] 1.1 mmol/L Normal 0.5-2.2 [facility] Comment on above: Order Comment: Speci men Type: ARTERIAL BLOOD SPECIMENOrdering Facility: [facility] Address: [address] [place] [address] Performed By: #### A LLBG ####[facility] [id number] [place] [address] [place] Methemoglobin (Bld) [Mass fraction] 0.9 % Normal 0.0-1.5 [facility] Comment on above: Order Comment: Speci men Type: ARTERIAL BLOOD SPECIMENOrdering Facility: [facility] Address: [address] [place] [address] Performed By: #### A LLBG ####[facility] [id number] [place] [address] [place] O2 THERAPY NC = Nasal Cannula Normal [facility] Comment on above: Order Comment: Speci men Type: ARTERIAL BLOOD SPECIMENOrdering Facility: [facility] Address: [address] [place] [address] Performed By: #### A LLBG ####[facility]CL[facility] [id number] [place] [address] [place] Oxygen (Bld) [Partial pressure] 95 mm Hg Normal 85-95 [facility] Comment on above: Order Comment: Speci men Type: ARTERIAL BLOOD SPECIMENOrdering Facility: [facility] Address: [address] [place] [address] Performed By: #### A LLBG ####[facility]CL[facility] [id number] [place] [address] [place] Oxyhemoglobin (BldA) [Mass fraction] 96 % Normal 95-98 [facility] Comment on above: Order Comment: Speci men Type: ARTERIAL BLOOD SPECIMENOrdering Facility: [facility] Address: [address] [place] [address] Performed By: #### A LLBG ####[facility]CL[facility] [id number] [place] [address] [place] pH (Bld) 7.39 [pH] Normal 7.35-7.45 [facility] Comment on above: Order Comment: Speci men Type: ARTERIAL BLOOD SPECIMENOrdering Facility: [facility] Address: [address] [place] [address] Performed By: #### A LLBG ####[facility] [id number] [place] [address] [place] Potassium [Moles/Vol] 4.4 mmol/L Normal 3.5-5.0 [facility] Comment on above: Order Comment: Speci men Type: ARTERIAL BLOOD SPECIMENOrdering Facility: [facility] Address: [address] [place] [address] Performed By: #### A LLBG ####[facility]CL[facility] [id number] [place] [address] [place] Sodium [Moles/Vol] 132 mmol/L Low 136-144 [facility] Comment on above: Order Comment: Speci men Type: ARTERIAL BLOOD SPECIMENOrdering Facility: [facility] Address: [address] [place] [address] Performed By: #### A LLBG ####[facility] [id number] [place] [address] [place] Base excess Calc (Bld) [Moles/Vol] 0 mmol/L Normal 0-2 [facility] Comment on above: Order Comment: Speci men Type: ARTERIAL BLOOD SPECIMENOrdering Facility: [facility] Address: [address] [place] [address] Performed By: #### A LLBG ####[facility] [id number] [place] [address] [place] Body temperature 98.6 [degF] Normal [facility] Comment on above: Order Comment: Speci men Type: ARTERIAL BLOOD SPECIMENOrdering Facility: [facility] Address: [address] [place] [address] Performed By: #### A LLBG ####[facility] [id number] [place] [address] [place] Calcium.ionized (Bld) [Mass/Vol] 1.28 mmol/L Normal 1.08-1.30 [facility] Comment on above: Order Comment: Speci men Type: ARTERIAL BLOOD SPECIMENOrdering Facility: [facility] Address: [address] [place] [address] Performed By: #### A LLBG ####[facility] [id number] [place] [address] [place] Calcium.ionized adjusted to pH 7.4 (BldA) [Moles/Vol] 1.26 mmol/L Normal 1.08-1.30 [facility] Comment on above: Order Comment: Speci men Type: ARTERIAL BLOOD SPECIMENOrdering Facility: [facility] Address: [address] [place] [address] Performed By: #### A LLBG ####[facility] [id number] [place] [address] [place] Carboxyhemoglobin (BldA) [Mass fraction] 1.9 % Normal 0.0-2.0 [facility] Comment on above: Order Comment: Speci men Type: ARTERIAL BLOOD SPECIMENOrdering Facility: [facility] Address: [address] [place] [address] Result Comment: Carb oxyhemoglobin Reference Range for Smokers: 2.0-8.0% Performed By: #### A LLBG ####[facility] [id number] [place] [address] [place] CO2 (Bld) [Partial pressure] 45 mm Hg Normal 36-46 [facility] Comment on above: Order Comment: Speci men Type: ARTERIAL BLOOD SPECIMENOrdering Facility: [facility] Address: [address] [place] [address] Performed By: #### A LLBG ####[facility] [id number] [place] [address] [place] Glucose [Mass/Vol] 143 mg/dL High 60-105 [facility] Comment on above: Order Comment: Speci men Type: ARTERIAL BLOOD SPECIMENOrdering Facility: [facility] Address: [address] [place] [address] Performed By: #### A LLBG ####[facility] [id number] [place] [address] [place] HCO3 (Bld) [Moles/Vol] 25 mmol/L Normal 22-26 [facility] Comment on above: Order Comment: Speci men Type: ARTERIAL BLOOD SPECIMENOrdering Facility: [facility] Address: [address] [place] [address] Performed By: #### A LLBG ####[facility] [id number] [place] [address] [place] Hematocrit (Bld) [Volume fraction] 36.2 % Normal 36.0-46.0 [facility] Comment on above: Order Comment: Speci men Type: ARTERIAL BLOOD SPECIMENOrdering Facility: [facility] Address: [address] [place] [address] Performed By: #### A LLBG ####[facility] [id number] [place] [address] [place] Hemoglobin (Bld) [Mass/Vol] 11.7 g/dL Normal 11.5-15.5 [facility] Comment on above: Order Comment: Speci men Type: ARTERIAL BLOOD SPECIMENOrdering Facility: [facility] Address: [address] [place] [address] Performed By: #### A LLBG ####[facility] [id number] [place] [address] [place] Lactate [Moles/Vol] 2.3 mmol/L High 0.5-2.2 [facility] Comment on above: Order Comment: Speci men Type: ARTERIAL BLOOD SPECIMENOrdering Facility: [facility] Address: [address] [place] [address] Performed By: #### A LLBG ####[facility] [id number] [place] [address] [place] Methemoglobin (Bld) [Mass fraction] 0.7 % Normal 0.0-1.5 [facility] Comment on above: Order Comment: Speci men Type: ARTERIAL BLOOD SPECIMENOrdering Facility: [facility] Address: [address] [place] [address] Performed By: #### A LLBG ####[facility] [id number] [place] [address] [place] O2 THERAPY NC = Nasal Cannula Normal [facility] Comment on above: Order Comment: Speci men Type: ARTERIAL BLOOD SPECIMENOrdering Facility: [facility] Address: [address] [place] [address] Performed By: #### A LLBG ####[facility] [id number] [place] [address] [place] Oxygen (Bld) [Partial pressure] 95 mm Hg Normal 85-95 [facility] Comment on above: Order Comment: Speci men Type: ARTERIAL BLOOD SPECIMENOrdering Facility: [facility] Address: [address] [place] [address] Performed By: #### A LLBG ####[facility] [id number] [place] [address] [place] Oxyhemoglobin (BldA) [Mass fraction] 95 % Normal 95-98 [facility] Comment on above: Order Comment: Speci men Type: ARTERIAL BLOOD SPECIMENOrdering Facility: [facility] Address: [address] [place] [address] Performed By: #### A LLBG ####[facility] [id number] [place] [address] [place] pH (Bld) 7.37 [pH] Normal 7.35-7.45 [facility] Comment on above: Order Comment: Speci men Type: ARTERIAL BLOOD SPECIMENOrdering Facility: [facility] Address: [address] [place] [address] Performed By: #### A LLBG ####[facility] [id number] [place] [address] [place] Potassium [Moles/Vol] 4.4 mmol/L Normal 3.5-5.0 [facility] Comment on above: Order Comment: Speci men Type: ARTERIAL BLOOD SPECIMENOrdering Facility: [facility] Address: [address] [place] [address] Performed By: #### A LLBG ####[facility] [id number] [place] [address] [place] Sodium [Moles/Vol] 134 mmol/L Low 136-144 [facility] Comment on above: Order Comment: Speci men Type: ARTERIAL BLOOD SPECIMENOrdering Facility: [facility] Address: [address] [place] [address] Performed By: #### A LLBG ####[facility] [id number] [place] [address] [place] Base deficit (BldA) [Moles/Vol] -1 mmol/L Normal -2-0 [facility] Comment on above: Order Comment: Speci men Type: ARTERIAL BLOOD SPECIMENOrdering Facility: [facility] Address: [address] [place] [address] Performed By: #### A LLBG ####[facility] [id number] [place] [address] [place] Body temperature 98.6 [degF] Normal [facility] Comment on above: Order Comment: Speci men Type: ARTERIAL BLOOD SPECIMENOrdering Facility: [facility] Address: [address] [place] [address] Performed By: #### A LLBG ####[facility] [id number] [place] [address] [place] Calcium.ionized (Bld) [Mass/Vol] 1.29 mmol/L Normal 1.08-1.30 [facility] Comment on above: Order Comment: Speci men Type: ARTERIAL BLOOD SPECIMENOrdering Facility: [facility] Address: [address] [place] [address] Performed By: #### A LLBG ####[facility] [id number] [place] [address] [place] Calcium.ionized adjusted to pH 7.4 (BldA) [Moles/Vol] 1.25 mmol/L Normal 1.08-1.30 [facility] Comment on above: Order Comment: Speci men Type: ARTERIAL BLOOD SPECIMENOrdering Facility: [facility] Address: [address] [place] [address] Performed By: #### A LLBG ####[facility]CL[facility] [id number] [place] [address] [place] Carboxyhemoglobin (BldA) [Mass fraction] 1.7 % Normal 0.0-2.0 [facility] Comment on above: Order Comment: Speci men Type: ARTERIAL BLOOD SPECIMENOrdering Facility: [facility] Address: [address] [place] [address] Result Comment: Carb oxyhemoglobin Reference Range for Smokers: 2.0-8.0% Performed By: #### A LLBG ####[facility]CL[facility] [id number] [place] [address] [place] CO2 (Bld) [Partial pressure] 47 mm Hg High 36-46 [facility] Comment on above: Order Comment: Speci men Type: ARTERIAL BLOOD SPECIMENOrdering Facility: [facility] Address: [address] [place] [address] Performed By: #### A LLBG ####[facility] [id number] [place] [address] [place] Glucose [Mass/Vol] 216 mg/dL High 60-105 [facility] Comment on above: Order Comment: Speci men Type: ARTERIAL BLOOD SPECIMENOrdering Facility: [facility] Address: [address] [place] [address] Performed By: #### A LLBG ####[facility] [id number] [place] [address] [place] HCO3 (Bld) [Moles/Vol] 25 mmol/L Normal 22-26 [facility] Comment on above: Order Comment: Speci men Type: ARTERIAL BLOOD SPECIMENOrdering Facility: [facility] Address: [address] [place] [address] Performed By: #### A LLBG ####[facility] LABCL[facility] [id number] [place] [id number] [place] Hematocrit (Bld) [Volume fraction] 38.2 % Normal 36.0-46.0 [facility] Comment on above: Order Comment: Speci men Type: ARTERIAL BLOOD SPECIMENOrdering Facility: [facility] Address: [address] [place] [address] Performed By: #### A LLBG ####[facility]CL[facility] [id number] [place] [address] [place] Hemoglobin (Bld) [Mass/Vol] 12.4 g/dL Normal 11.5-15.5 [facility] Comment on above: Order Comment: Speci men Type: ARTERIAL BLOOD SPECIMENOrdering Facility: [facility] Address: [address] [place] [address] Performed By: #### A LLBG ####[facility] [id number] [place] [address] [place] Lactate [Moles/Vol] 1.2 mmol/L Normal 0.5-2.2 [facility] Comment on above: Order Comment: Speci men Type: ARTERIAL BLOOD SPECIMENOrdering Facility: [facility] Address: [address] [place] [address] Performed By: #### A LLBG ####[facility] [id number] [place] [address] [place] Methemoglobin (Bld) [Mass fraction] 0.8 % Normal 0.0-1.5 [facility] Comment on above: Order Comment: Speci men Type: ARTERIAL BLOOD SPECIMENOrdering Facility: [facility] Address: [address] [place] [address] Performed By: #### A LLBG ####[facility]CL[facility] [id number] [place] [address] [place] O2 THERAPY NC = Nasal Cannula Normal [facility] Comment on above: Order Comment: Speci men Type: ARTERIAL BLOOD SPECIMENOrdering Facility: [facility] Address: [address] [place] [address] Performed By: #### A LLBG ####[facility] [id number] [place] [address] [place] Oxygen (Bld) [Partial pressure] 127 mm Hg High 85-95 [facility] Comment on above: Order Comment: Speci men Type: ARTERIAL BLOOD SPECIMENOrdering Facility: [facility] Address: [address] [place] [address] Performed By: #### A LLBG ####[facility] [id number] [place] [address] [place] Oxyhemoglobin (BldA) [Mass fraction] 96 % Normal 95-98 [facility] Comment on above: Order Comment: Speci men Type: ARTERIAL BLOOD SPECIMENOrdering Facility: [facility] Address: [address] [place] [address] Performed By: #### A LLBG ####[facility] [id number] [place] [address] [place] pH (Bld) 7.34 [pH] Low 7.35-7.45 [facility] Comment on above: Order Comment: Speci men Type: ARTERIAL BLOOD SPECIMENOrdering Facility: [facility] Address: [address] [place] [address] Performed By: #### A LLBG ####[facility] [id number] [place] [address] [place] Potassium [Moles/Vol] 4.2 mmol/L Normal 3.5-5.0 [facility] Comment on above: Order Comment: Speci men Type: ARTERIAL BLOOD SPECIMENOrdering Facility: [facility] Address: [address] [place] [address] Performed By: #### A LLBG ####[facility] [id number] [place] [address] [place] Sodium [Moles/Vol] 134 mmol/L Low 136-144 [facility] Comment on above: Order Comment: Speci men Type: ARTERIAL BLOOD SPECIMENOrdering Facility: [facility] Address: [address] [place] [address] Performed By: #### A LLBG ####[facility]CL[facility] [id number] [place] [address] [place] Base excess Calc (Bld) [Moles/Vol] 0 mmol/L Normal 0-2 [facility] Comment on above: Order Comment: Speci men Type: ARTERIAL BLOOD SPECIMENOrdering Facility: [facility] Address: [address] [place] [address] Performed By: #### A LLBG ####[facility] [id number] [place] [address] [place] Body temperature 98.6 [degF] Normal [facility] Comment on above: Order Comment: Speci men Type: ARTERIAL BLOOD SPECIMENOrdering Facility: [facility] Address: [address] [place] [address] Performed By: #### A LLBG ####[facility]CL[facility] [id number] [place] [address] [place] Calcium.ionized (Bld) [Mass/Vol] 1.28 mmol/L Normal 1.08-1.30 [facility] Comment on above: Order Comment: Speci men Type: ARTERIAL BLOOD SPECIMENOrdering Facility: [facility] Address: [address] [place] [address] Performed By: #### A LLBG ####[facility]CL[facility] [id number] [place] [address] [place] Calcium.ionized adjusted to pH 7.4 (BldA) [Moles/Vol] 1.27 mmol/L Normal 1.08-1.30 [facility] Comment on above: Order Comment: Speci men Type: ARTERIAL BLOOD SPECIMENOrdering Facility: [facility] Address: [address] [place] [address] Performed By: #### A LLBG ####[facility] [id number] [place] [address] [place] Carboxyhemoglobin (BldA) [Mass fraction] 1.1 % Normal 0.0-2.0 [facility] Comment on above: Order Comment: Speci men Type: ARTERIAL BLOOD SPECIMENOrdering Facility: [facility] Address: [address] [place] [address] Result Comment: Carb oxyhemoglobin Reference Range for Smokers: 2.0-8.0% Performed By: #### A LLBG ####[facility] [id number] [place] [address] [place] CO2 (Bld) [Partial pressure] 43 mm Hg Normal 36-46 [facility] Comment on above: Order Comment: Speci men Type: ARTERIAL BLOOD SPECIMENOrdering Facility: [facility] Address: [address] [place] [address] Performed By: #### A LLBG ####[facility] [id number] [place] [address] [place] Glucose [Mass/Vol] 186 mg/dL High 60-105 [facility] Comment on above: Order Comment: Speci men Type: ARTERIAL BLOOD SPECIMENOrdering Facility: [facility] Address: [address] [place] [address] Performed By: #### A LLBG ####[facility] [id number] [place] [address] [place] HCO3 (Bld) [Moles/Vol] 25 mmol/L Normal 22-26 [facility] Comment on above: Order Comment: Speci men Type: ARTERIAL BLOOD SPECIMENOrdering Facility: [facility] Address: [address] [place] [address] Performed By: #### A LLBG ####[facility] [id number] [place] [address] [place] Hematocrit (Bld) [Volume fraction] 38.5 % Normal 36.0-46.0 [facility] Comment on above: Order Comment: Speci men Type: ARTERIAL BLOOD SPECIMENOrdering Facility: [facility] Address: [address] [place] [address] Performed By: #### A LLBG ####[facility] [id number] [place] [address] [place] Hemoglobin (Bld) [Mass/Vol] 12.5 g/dL Normal 11.5-15.5 [facility] Comment on above: Order Comment: Speci men Type: ARTERIAL BLOOD SPECIMENOrdering Facility: [facility] Address: [address] [place] [address] Performed By: #### A LLBG ####[facility] [id number] [place] [address] [place] Lactate [Moles/Vol] 1.0 mmol/L Normal 0.5-2.2 [facility] Comment on above: Order Comment: Speci men Type: ARTERIAL BLOOD SPECIMENOrdering Facility: [facility] Address: [address] [place] [address] Performed By: #### A LLBG ####[facility] [id number] [place] [address] [place] Methemoglobin (Bld) [Mass fraction] 0.8 % Normal 0.0-1.5 [facility] Comment on above: Order Comment: Speci men Type: ARTERIAL BLOOD SPECIMENOrdering Facility: [facility] Address: [address] [place] [address] Performed By: #### A LLBG ####[facility] [id number] [place] [address] [place] O2 THERAPY Positive Normal [facility] Comment on above: Order Comment: Speci men Type: ARTERIAL BLOOD SPECIMENOrdering Facility: [facility] Address: [address] [place] [address] Performed By: #### A LLBG ####[facility] [id number] [place] [address] [place] Oxygen (Bld) [Partial pressure] 117 mm Hg High 85-95 [facility] Comment on above: Order Comment: Speci men Type: ARTERIAL BLOOD SPECIMENOrdering Facility: [facility] Address: [address] [place] [address] Performed By: #### A LLBG ####[facility] [id number] [place] [address] [place] Oxyhemoglobin (BldA) [Mass fraction] 95 % Normal 95-98 [facility] Comment on above: Order Comment: Speci men Type: ARTERIAL BLOOD SPECIMENOrdering Facility: [facility] Address: [address] [place] [address] Performed By: #### A LLBG ####[facility] [id number] [place] [address] [place] pH (Bld) 7.38 [pH] Normal 7.35-7.45 [facility] Comment on above: Order Comment: Speci men Type: ARTERIAL BLOOD SPECIMENOrdering Facility: [facility] Address: [address] [place] [address] Performed By: #### A LLBG ####[facility] [id number] [place] [address] [place] Potassium [Moles/Vol] 4.6 mmol/L Normal 3.5-5.0 [facility] Comment on above: Order Comment: Speci men Type: ARTERIAL BLOOD SPECIMENOrdering Facility: [facility] Address: [address] [place] [address] Performed By: #### A LLBG ####[facility] [id number] [place] [id number] [place] Sodium [Moles/Vol] 134 mmol/L Low 136-144 [facility] Comment on above: Order Comment: Speci men Type: ARTERIAL BLOOD SPECIMENOrdering Facility: [facility] Address: [address] [place] [address] Performed By: #### A LLBG ####[facility] [id number] [place] [address] [place] Base excess Calc (Bld) [Moles/Vol] 1 mmol/L Normal 0-2 [facility] Comment on above: Order Comment: Speci men Type: ARTERIAL BLOOD SPECIMENOrdering Facility: [facility] Address: [address] [place] [address] Performed By: #### A LLBG ####[facility] [id number] [place] [address] [place] Body temperature 98.6 [degF] Normal [facility] Comment on above: Order Comment: Speci men Type: ARTERIAL BLOOD SPECIMENOrdering Facility: [facility] Address: [address] [place] [address] Performed By: #### A LLBG ####[facility]CL[facility] [id number] [place] [address] [place] Calcium.ionized (Bld) [Mass/Vol] 1.33 mmol/L High 1.08-1.30 [facility] Comment on above: Order Comment: Speci men Type: ARTERIAL BLOOD SPECIMENOrdering Facility: [facility] Address: [address] [place] [address] Performed By: #### A LLBG ####[facility] [id number] [place] [address] [place] Calcium.ionized adjusted to pH 7.4 (BldA) [Moles/Vol] 1.31 mmol/L High 1.08-1.30 [facility] Comment on above: Order Comment: Speci men Type: ARTERIAL BLOOD SPECIMENOrdering Facility: [facility] Address: [address] [place] [address] Performed By: #### A LLBG ####[facility] [id number] [place] [address] [place] Carboxyhemoglobin (BldA) [Mass fraction] 1.5 % Normal 0.0-2.0 [facility] Comment on above: Order Comment: Speci men Type: ARTERIAL BLOOD SPECIMENOrdering Facility: [facility] Address: [address] [place] [address] Result Comment: Carb oxyhemoglobin Reference Range for Smokers: 2.0-8.0% Performed By: #### A LLBG ####[facility] [id number] [place] [address] [place] CO2 (Bld) [Partial pressure] 45 mm Hg Normal 36-46 [facility] Comment on above: Order Comment: Speci men Type: ARTERIAL BLOOD SPECIMENOrdering Facility: [facility] Address: [address] [place] [address] Performed By: #### A LLBG ####[facility] [id number] [place] [address] [place] FIO2 40 % Normal [facility] Comment on above: Order Comment: Speci men Type: ARTERIAL BLOOD SPECIMENOrdering Facility: [facility] Address: [address] [place] [address] Performed By: #### A LLBG ####[facility] [id number] [place] [address] [place] Glucose [Mass/Vol] 122 mg/dL High 60-105 [facility] Comment on above: Order Comment: Speci men Type: ARTERIAL BLOOD SPECIMENOrdering Facility: [facility] Address: [address] [place] [address] Performed By: #### A LLBG ####[facility] [id number] [place] [address] [place] HCO3 (Bld) [Moles/Vol] 26 mmol/L Normal 22-26 [facility] Comment on above: Order Comment: Speci men Type: ARTERIAL BLOOD SPECIMENOrdering Facility: [facility] Address: [address] [place] [address] Performed By: #### A LLBG ####[facility] [id number] [place] [address] [place] Hematocrit (Bld) [Volume fraction] 38.3 % Normal 36.0-46.0 [facility] Comment on above: Order Comment: Speci men Type: ARTERIAL BLOOD SPECIMENOrdering Facility: [facility] Address: [address] [place] [address] Performed By: #### A LLBG ####[facility] [id number] [place] [address] [place] Hemoglobin (Bld) [Mass/Vol] 12.5 g/dL Normal 11.5-15.5 [facility] Comment on above: Order Comment: Speci men Type: ARTERIAL BLOOD SPECIMENOrdering Facility: [facility] Address: [address] [place] [address] Performed By: #### A LLBG ####[facility] [id number] [place] [address] [place] Lactate [Moles/Vol] 2.5 mmol/L High 0.5-2.2 [facility] Comment on above: Order Comment: Speci men Type: ARTERIAL BLOOD SPECIMENOrdering Facility: [facility] Address: [address] [place] [address] Performed By: #### A LLBG ####[facility] [id number] [place] [address] [place] Methemoglobin (Bld) [Mass fraction] 1.5 % Normal 0.0-1.5 [facility] Comment on above: Order Comment: Speci men Type: ARTERIAL BLOOD SPECIMENOrdering Facility: [facility] Address: [address] [place] [address] Performed By: #### A LLBG ####[facility] [id number] [place] [id number] [place] O2 THERAPY Ventilator Normal [facility] Comment on above: Order Comment: Speci men Type: ARTERIAL BLOOD SPECIMENOrdering Facility: [facility] Address: [address] [place] [address] Performed By: #### A LLBG ####[facility] [id number] [place] [address] [place] Oxygen (Bld) [Partial pressure] 179 mm Hg High 85-95 [facility] Comment on above: Order Comment: Speci men Type: ARTERIAL BLOOD SPECIMENOrdering Facility: [facility] Address: [address] [place] [address] Performed By: #### A LLBG ####[facility] [id number] [place] [address] [place] Oxyhemoglobin (BldA) [Mass fraction] 96 % Normal 95-98 [facility] Comment on above: Order Comment: Speci men Type: ARTERIAL BLOOD SPECIMENOrdering Facility: [facility] Address: [address] [place] [address] Performed By: #### A LLBG ####[facility] [id number] [place] [id number] [place] pH (Bld) 7.37 [pH] Normal 7.35-7.45 [facility] Comment on above: Order Comment: Speci men Type: ARTERIAL BLOOD SPECIMENOrdering Facility: [facility] Address: [address] [place] [address] Performed By: #### A LLBG ####[facility] [id number] [place] [id number] [place] PO2 / FIO2 RATIO 448 mmHg Normal >300 [facility] Comment on above: Order Comment: Speci men Type: ARTERIAL BLOOD SPECIMENOrdering Facility: [facility] Address: [address] [place] [address] Performed By: #### A LLBG ####[facility] [id number] [place] [address] [place] Potassium [Moles/Vol] 4.8 mmol/L Normal 3.5-5.0 [facility] Comment on above: Order Comment: Speci men Type: ARTERIAL BLOOD SPECIMENOrdering Facility: [facility] Address: [address] [place] [address] Performed By: #### A LLBG ####[facility] [id number] [place] [address] [place] Sodium [Moles/Vol] 135 mmol/L Low 136-144 [facility] Comment on above: Order Comment: Speci men Type: ARTERIAL BLOOD SPECIMENOrdering Facility: [facility] Address: [address] [place] [address] Performed By: #### A LLBG ####[facility] [id number] [place] [address] [place] Base deficit (BldA) [Moles/Vol] -1 mmol/L Normal -2-0 [facility] Comment on above: Order Comment: Speci men Type: ARTERIAL BLOOD SPECIMENOrdering Facility: [facility] Address: [address] [place] [address] Performed By: #### A LLBG ####[facility] [id number] [place] [address] [place] Calcium.ionized (Bld) [Mass/Vol] 1.26 mmol/L Normal 1.08-1.30 [facility] Comment on above: Order Comment: Speci men Type: ARTERIAL BLOOD SPECIMENOrdering Facility: [facility] Address: [address] [place] [address] Performed By: #### A LLBG ####[facility] [id number] [place] [address] [place] Calcium.ionized adjusted to pH 7.4 (BldA) [Moles/Vol] 1.22 mmol/L Normal 1.08-1.30 [facility] Comment on above: Order Comment: Speci men Type: ARTERIAL BLOOD SPECIMENOrdering Facility: [facility] Address: [address] [place] [address] Performed By: #### A LLBG ####[facility] [id number] [place] [address] [place] Carboxyhemoglobin (BldA) [Mass fraction] 1.6 % Normal 0.0-2.0 [facility] Comment on above: Order Comment: Speci men Type: ARTERIAL BLOOD SPECIMENOrdering Facility: [facility] Address: [address] [place] [address] Result Comment: Carb oxyhemoglobin Reference Range for Smokers: 2.0-8.0% Performed By: #### A LLBG ####[facility] LABCL[facility] [id number] [place] [address] [place] CO2 (Bld) [Partial pressure] 49 mm Hg High 36-46 [facility] Comment on above: Order Comment: Speci men Type: ARTERIAL BLOOD SPECIMENOrdering Facility: [facility] Address: [address] [place] [address] Performed By: #### A LLBG ####[facility]CL[facility] [id number] [place] [address] [place] CO2 adjusted to patient's actual temperature (Bld) [Partial pressure] 49 mmHg High 36-46 [facility] Comment on above: Order Comment: Speci men Type: ARTERIAL BLOOD SPECIMENOrdering Facility: [facility] Address: [address] [place] [address] Performed By: #### A LLBG ####[facility]CL[facility] [id number] [place] [address] [place] Glucose [Mass/Vol] 140 mg/dL High 60-105 [facility] Comment on above: Order Comment: Speci men Type: ARTERIAL BLOOD SPECIMENOrdering Facility: [facility] Address: [address] [place] [address] Performed By: #### A LLBG ####[facility]CL[facility] [id number] [place] [address] [place] HCO3 (Bld) [Moles/Vol] 25 mmol/L Normal 22-26 [facility] Comment on above: Order Comment: Speci men Type: ARTERIAL BLOOD SPECIMENOrdering Facility: [facility] Address: [address] [place] [address] Performed By: #### A LLBG ####[facility]CL[facility] [id number] [place] [address] [place] Hematocrit (Bld) [Volume fraction] 30.8 % Low 36.0-46.0 [facility] Comment on above: Order Comment: Speci men Type: ARTERIAL BLOOD SPECIMENOrdering Facility: [facility] Address: [address] [place] [address] Performed By: #### A LLBG ####[facility]CL[facility] [id number] [place] [address] [place] Hemoglobin (Bld) [Mass/Vol] 10.0 g/dL Low 11.5-15.5 [facility] Comment on above: Order Comment: Speci men Type: ARTERIAL BLOOD SPECIMENOrdering Facility: [facility] Address: [address] [place] [address] Performed By: #### A LLBG ####[facility] [id number] [place] [address] [place] Lactate [Moles/Vol] 2.6 mmol/L High 0.5-2.2 [facility] Comment on above: Order Comment: Speci men Type: ARTERIAL BLOOD SPECIMENOrdering Facility: [facility] Address: [address] [place] [address] Performed By: #### A LLBG ####[facility]CL[facility] [id number] [address] [address] [place] Methemoglobin (Bld) [Mass fraction] 1.5 % Normal 0.0-1.5 [facility] Comment on above: Order Comment: Speci men Type: ARTERIAL BLOOD SPECIMENOrdering Facility: [facility] Address: [address] [place] [id number] Performed By: #### A LLBG ####[facility]CL[facility] [id number] [place] [id number] [place] Oxygen (Bld) [Partial pressure] 200 mm Hg High 85-95 [facility] Comment on above: Order Comment: Speci men Type: ARTERIAL BLOOD SPECIMENOrdering Facility: [facility] Address: [address] [place] [id number] Performed By: #### A LLBG ####[facility]CL[facility] [id number] [place] [address] [place] Oxygen adjusted to patient's actual temperature (Bld) [Partial pressure] 200 mmHg High 85-95 [facility] Comment on above: Order Comment: Speci men Type: ARTERIAL BLOOD SPECIMENOrdering Facility: [facility] Address: [address] [place] [address] Performed By: #### A LLBG ####[facility] [id number] [address] [address] [place] Oxyhemoglobin (BldA) [Mass fraction] 96 % Normal 95-98 [facility] Comment on above: Order Comment: Speci men Type: ARTERIAL BLOOD SPECIMENOrdering Facility: [facility] Address: [address] [place] [address] Performed By: #### A LLBG ####[facility]CL[facility] [id number] [place] [address] [place] pH (Bld) 7.33 [pH] Low 7.35-7.45 [facility] Comment on above: Order Comment: Speci men Type: ARTERIAL BLOOD SPECIMENOrdering Facility: [facility] Address: [address] [place] [address] Performed By: #### A LLBG ####[facility]CL[facility] [id number] [place] [address] [place] pH adjusted to patient's actual temperature (Bld) 7.33 Low 7.35-7.45 [facility] Comment on above: Order Comment: Speci men Type: ARTERIAL BLOOD SPECIMENOrdering Facility: [facility] Address: [address] [place] [address] Performed By: #### A LLBG ####[facility] LABIA [id number] [place] [address] [place] Potassium [Moles/Vol] 3.6 mmol/L Normal 3.5-5.0 [facility] Comment on above: Order Comment: Speci men Type: ARTERIAL BLOOD SPECIMENOrdering Facility: [facility] Address: [address] [place] [address] Performed By: #### A LLBG ####[facility] LABIA [id number] [place] [address] [place] Sodium [Moles/Vol] 134 mmol/L Low 136-144 [facility] Comment on above: Order Comment: Speci men Type: ARTERIAL BLOOD SPECIMENOrdering Facility: [facility] Address: [address] [place] [address] Performed By: #### A LLBG ####[facility]CL[facility] [id number] [place] [address] [place] Base excess Calc (Bld) [Moles/Vol] 0 mmol/L Normal 0-2 [facility] Comment on above: Order Comment: Speci men Type: ARTERIAL BLOOD SPECIMENOrdering Facility: [facility] Address: [address] [place] [address] Performed By: #### A LLBG ####[facility]CL[facility] [id number] [place] [address] [place] Calcium.ionized (Bld) [Mass/Vol] 1.10 mmol/L Normal 1.08-1.30 [facility] Comment on above: Order Comment: Speci men Type: ARTERIAL BLOOD SPECIMENOrdering Facility: [facility] Address: [address] [place] [address] Performed By: #### A LLBG ####[facility] LABIA [id number] [place] [address] [place] Calcium.ionized adjusted to pH 7.4 (BldA) [Moles/Vol] 1.11 mmol/L Normal 1.08-1.30 [facility] Comment on above: Order Comment: Speci men Type: ARTERIAL BLOOD SPECIMENOrdering Facility: [facility] Address: [address] [place] [address] Performed By: #### A LLBG ####[facility] LABIA [id number] [place] [address] [place] Carboxyhemoglobin (BldA) [Mass fraction] 2.1 % High 0.0-2.0 [facility] Comment on above: Order Comment: Speci men Type: ARTERIAL BLOOD SPECIMENOrdering Facility: [facility] Address: [address] [place] [address] Result Comment: Carb oxyhemoglobin Reference Range for Smokers: 2.0-8.0% Performed By: #### A LLBG ####[facility] LABIA [id number] [place] [address] [place] CO2 (Bld) [Partial pressure] 39 mm Hg Normal 36-46 [facility] Comment on above: Order Comment: Speci men Type: ARTERIAL BLOOD SPECIMENOrdering Facility: [facility] Address: [address] [place] [address] Performed By: #### A LLBG ####[facility]CL[facility] [id number] [place] [address] [place] CO2 adjusted to patient's actual temperature (Bld) [Partial pressure] 39 mmHg Normal 36-46 [facility] Comment on above: Order Comment: Speci men Type: ARTERIAL BLOOD SPECIMENOrdering Facility: [facility] Address: [address] [place] [address] Performed By: #### A LLBG ####[facility]CL[facility] [id number] [place] [address] [place] Glucose [Mass/Vol] 209 mg/dL High 60-105 [facility] Comment on above: Order Comment: Speci men Type: ARTERIAL BLOOD SPECIMENOrdering Facility: [facility] Address: [address] [place] [address] Performed By: #### A LLBG ####[facility]CL[facility] [id number] [place] [address] [place] HCO3 (Bld) [Moles/Vol] 24 mmol/L Normal 22-26 [facility] Comment on above: Order Comment: Speci men Type: ARTERIAL BLOOD SPECIMENOrdering Facility: [facility] Address: [address] [place] [address] Performed By: #### A LLBG ####[facility]CL[facility] [id number] [place] [address] [place] Hematocrit (Bld) [Volume fraction] 28.4 % Low 36.0-46.0 [facility] Comment on above: Order Comment: Speci men Type: ARTERIAL BLOOD SPECIMENOrdering Facility: [facility] Address: [address] [place] [address] Performed By: #### A LLBG ####[facility]CL[facility] [id number] [place] [address] [place] Hemoglobin (Bld) [Mass/Vol] 9.1 g/dL Low 11.5-15.5 [facility] Comment on above: Order Comment: Speci men Type: ARTERIAL BLOOD SPECIMENOrdering Facility: [facility] Address: [address] [place] [address] Performed By: #### A LLBG ####[facility]CL[facility] [id number] [place] [address] [place] Lactate [Moles/Vol] 3.9 mmol/L High 0.5-2.2 [facility] Comment on above: Order Comment: Speci men Type: ARTERIAL BLOOD SPECIMENOrdering Facility: [facility] Address: [address] [place] [address] Performed By: #### A LLBG ####[facility]CL[facility] [id number] [place] [address] [place] Methemoglobin (Bld) [Mass fraction] 0.9 % Normal 0.0-1.5 [facility] Comment on above: Order Comment: Speci men Type: ARTERIAL BLOOD SPECIMENOrdering Facility: [facility] Address: [address] [place] [address] Performed By: #### A LLBG ####[facility]CL[facility] [id number] [place] [address] [place] Oxygen (Bld) [Partial pressure] 376 mm Hg High 85-95 [facility] Comment on above: Order Comment: Speci men Type: ARTERIAL BLOOD SPECIMENOrdering Facility: [facility] Address: [address] [place] [address] Performed By: #### A LLBG ####[facility]CL[facility] [id number] [place] [address] [place] Oxygen adjusted to patient's actual temperature (Bld) [Partial pressure] 376 mmHg High 85-95 [facility] Comment on above: Order Comment: Speci men Type: ARTERIAL BLOOD SPECIMENOrdering Facility: [facility] Address: [address] [place] [address] Performed By: #### A LLBG ####[facility]CL[facility] [id number] [place] [address] [place] Oxyhemoglobin (BldA) [Mass fraction] 97 % Normal 95-98 [facility] Comment on above: Order Comment: Speci men Type: ARTERIAL BLOOD SPECIMENOrdering Facility: [facility] Address: [address] [place] [address] Performed By: #### A LLBG ####[facility]CL[facility] [id number] [place] [address] [place] pH (Bld) 7.41 [pH] Normal 7.35-7.45 [facility] Comment on above: Order Comment: Speci men Type: ARTERIAL BLOOD SPECIMENOrdering Facility: [facility] Address: [address] [place] [address] Performed By: #### A LLBG ####[facility]CL[facility] [id number] [place] [address] [place] pH adjusted to patient's actual temperature (Bld) 7.41 Normal 7.35-7.45 [facility] Comment on above: Order Comment: Speci men Type: ARTERIAL BLOOD SPECIMENOrdering Facility: [facility] Address: [address] [place] [address] Performed By: #### A LLBG ####[facility]CL[facility] [id number] [place] [address] [place] Potassium [Moles/Vol] 4.4 mmol/L Normal 3.5-5.0 [facility] Comment on above: Order Comment: Speci men Type: ARTERIAL BLOOD SPECIMENOrdering Facility: [facility] Address: [address] [place] [address] Performed By: #### A LLBG ####[facility]CL[facility] [id number] [place] [address] [place] Sodium [Moles/Vol] 133 mmol/L Low 136-144 [facility] Comment on above: Order Comment: Speci men Type: ARTERIAL BLOOD SPECIMENOrdering Facility: [facility] Address: [address] [place] [address] Performed By: #### A LLBG ####[facility] LABIA [id number] [place] [address] [place] Base excess Calc (Bld) [Moles/Vol] 0 mmol/L Normal 0-2 [facility] Comment on above: Order Comment: Speci men Type: ARTERIAL BLOOD SPECIMENOrdering Facility: [facility] Address: [address] [place] [address] Performed By: #### A LLBG ####[facility] LABIA [id number] [place] [address] [place] Calcium.ionized (Bld) [Mass/Vol] 1.08 mmol/L Normal 1.08-1.30 [facility] Comment on above: Order Comment: Speci men Type: ARTERIAL BLOOD SPECIMENOrdering Facility: [facility] Address: [address] [place] [address] Performed By: #### A LLBG ####[facility] LABIA [id number] [place] [address] [place] Calcium.ionized adjusted to pH 7.4 (BldA) [Moles/Vol] 1.06 mmol/L Low 1.08-1.30 [facility] Comment on above: Order Comment: Speci men Type: ARTERIAL BLOOD SPECIMENOrdering Facility: [facility] Address: [address] [place] [address] Performed By: #### A LLBG ####[facility] LABIA [id number] [place] [address] [place] Carboxyhemoglobin (BldA) [Mass fraction] 2.0 % Normal 0.0-2.0 [facility] Comment on above: Order Comment: Speci men Type: ARTERIAL BLOOD SPECIMENOrdering Facility: [facility] Address: [address] [place] [address] Result Comment: Carb oxyhemoglobin Reference Range for Smokers: 2.0-8.0% Performed By: #### A LLBG ####[facility]CL[facility] [id number] [place] [address] [place] CO2 (Bld) [Partial pressure] 44 mm Hg Normal 36-46 [facility] Comment on above: Order Comment: Speci men Type: ARTERIAL BLOOD SPECIMENOrdering Facility: [facility] Address: [address] [place] [address] Performed By: #### A LLBG ####[facility]CL[facility] [id number] [place] [address] [place] CO2 adjusted to patient's actual temperature (Bld) [Partial pressure] 44 mmHg Normal 36-46 [facility] Comment on above: Order Comment: Speci men Type: ARTERIAL BLOOD SPECIMENOrdering Facility: [facility] Address: [address] [place] [address] Performed By: #### A LLBG ####[facility]CL[facility] [id number] [place] [address] [place] Glucose [Mass/Vol] 253 mg/dL High 60-105 [facility] Comment on above: Order Comment: Speci men Type: ARTERIAL BLOOD SPECIMENOrdering Facility: [facility] Address: [address] [place] [address] Performed By: #### A LLBG ####[facility]CL[facility] [id number] [place] [address] [place] HCO3 (Bld) [Moles/Vol] 25 mmol/L Normal 22-26 [facility] Comment on above: Order Comment: Speci men Type: ARTERIAL BLOOD SPECIMENOrdering Facility: [facility] Address: [address] [place] [address] Performed By: #### A LLBG ####[facility]CL[facility] [id number] [place] [address] [place] Hematocrit (Bld) [Volume fraction] 28.3 % Low 36.0-46.0 [facility] Comment on above: Order Comment: Speci men Type: ARTERIAL BLOOD SPECIMENOrdering Facility: [facility] Address: [address] [place] [address] Performed By: #### A LLBG ####[facility] LABIA [id number] [place] [address] [place] Hemoglobin (Bld) [Mass/Vol] 9.1 g/dL Low 11.5-15.5 [facility] Comment on above: Order Comment: Speci men Type: ARTERIAL BLOOD SPECIMENOrdering Facility: [facility] Address: [address] [place] [address] Performed By: #### A LLBG ####[facility] LABIA [id number] [place] [address] [place] Lactate [Moles/Vol] 4.4 mmol/L High 0.5-2.2 [facility] Comment on above: Order Comment: Speci men Type: ARTERIAL BLOOD SPECIMENOrdering Facility: [facility] Address: [address] [place] [address] Performed By: #### A LLBG ####[facility] LABIA [id number] [place] [address] [place] Methemoglobin (Bld) [Mass fraction] 0.9 % Normal 0.0-1.5 [facility] Comment on above: Order Comment: Speci men Type: ARTERIAL BLOOD SPECIMENOrdering Facility: [facility] Address: [address] [place] [address] Performed By: #### A LLBG ####[facility] LABIA [id number] [place] [id number] [address] [place] Oxygen (Bld) [Partial pressure] 295 mm Hg High 85-95 [facility] Comment on above: Order Comment: Speci men Type: ARTERIAL BLOOD SPECIMENOrdering Facility: [facility] Address: [address] [place] [address] Performed By: #### A LLBG ####[facility]CL[facility] [id number] [address] [address] [place] Oxygen adjusted to patient's actual temperature (Bld) [Partial pressure] 295 mmHg High 85-95 [facility] Comment on above: Order Comment: Speci men Type: ARTERIAL BLOOD SPECIMENOrdering Facility: [facility] Address: [address] [place] [address] Performed By: #### A LLBG ####[facility] LABCL[facility] [id number] [place] [address] [place] Oxyhemoglobin (BldA) [Mass fraction] 97 % Normal 95-98 [facility] Comment on above: Order Comment: Speci men Type: ARTERIAL BLOOD SPECIMENOrdering Facility: [facility] Address: [address] [place] [address] Performed By: #### A LLBG ####[facility]CL[facility] [id number] [place] [address] [place] pH (Bld) 7.37 [pH] Normal 7.35-7.45 [facility] Comment on above: Order Comment: Speci men Type: ARTERIAL BLOOD SPECIMENOrdering Facility: [facility] Address: [address] [place] [address] Performed By: #### A LLBG ####[facility]CL[facility] [id number] [place] [address] [place] pH adjusted to patient's actual temperature (Bld) 7.37 Normal 7.35-7.45 [facility] Comment on above: Order Comment: Speci men Type: ARTERIAL BLOOD SPECIMENOrdering Facility: [facility] Address: [address] [place], [place] [address] Performed By: #### A LLBG ####[facility]CL[facility] [id number] [place] [address] [place] Potassium [Moles/Vol] 4.9 mmol/L Normal 3.5-5.0 [facility] Comment on above: Order Comment: Speci men Type: ARTERIAL BLOOD SPECIMENOrdering Facility: [facility] Address: [address] [place] [address] Performed By: #### A LLBG ####[facility]CL[facility] [id number] [place] [address] [place] Sodium [Moles/Vol] 132 mmol/L Low 136-144 [facility] Comment on above: Order Comment: Speci men Type: ARTERIAL BLOOD SPECIMENOrdering Facility: [facility] Address: [address] [place] [address] Performed By: #### A LLBG ####[facility]CL[facility] [id number] [place] [address] [place] Base deficit (BldA) [Moles/Vol] -3 mmol/L Low -2-0 [facility] Comment on above: Order Comment: Speci men Type: ARTERIAL BLOOD SPECIMENOrdering Facility: [facility] Address: [address] [place] [address] Performed By: #### A LLBG ####[facility]CL[facility] [id number] [place] [address] [place] Calcium.ionized (Bld) [Mass/Vol] 1.20 mmol/L Normal 1.08-1.30 [facility] Comment on above: Order Comment: Speci men Type: ARTERIAL BLOOD SPECIMENOrdering Facility: [facility] Address: [address] [place] [address] Performed By: #### A LLBG ####[facility] LABIA [id number] [place] [address] [place] Calcium.ionized adjusted to pH 7.4 (BldA) [Moles/Vol] 1.18 mmol/L Normal 1.08-1.30 [facility] Comment on above: Order Comment: Speci men Type: ARTERIAL BLOOD SPECIMENOrdering Facility: [facility] Address: [address] [place] [address] Performed By: #### A LLBG ####[facility]CL[facility] [id number] [place] [address] [place] Carboxyhemoglobin (BldA) [Mass fraction] 1.6 % Normal 0.0-2.0 [facility] Comment on above: Order Comment: Speci men Type: ARTERIAL BLOOD SPECIMENOrdering Facility: [facility] Address: [address] [place] [address] Result Comment: Carb oxyhemoglobin Reference Range for Smokers: 2.0-8.0% Performed By: #### A LLBG ####[facility]CL[facility] [id number] [place] [address] [place] CO2 (Bld) [Partial pressure] 40 mm Hg Normal 36-46 [facility] Comment on above: Order Comment: Speci men Type: ARTERIAL BLOOD SPECIMENOrdering Facility: [facility] Address: [address] [place] [address] Performed By: #### A LLBG ####[facility]CL[facility] [id number] [place] [address] [place] CO2 adjusted to patient's actual temperature (Bld) [Partial pressure] 40 mmHg Normal 36-46 [facility] Comment on above: Order Comment: Speci men Type: ARTERIAL BLOOD SPECIMENOrdering Facility: [facility] Address: [address] [place] [address] Performed By: #### A LLBG ####[facility]CL[facility] [id number] [place] [address] [place] Glucose [Mass/Vol] 209 mg/dL High 60-105 [facility] Comment on above: Order Comment: Speci men Type: ARTERIAL BLOOD SPECIMENOrdering Facility: [facility] Address: [address] [place] [address] Performed By: #### A LLBG ####[facility]CL[facility] [id number] [place] [address] [place] HCO3 (Bld) [Moles/Vol] 22 mmol/L Normal 22-26 [facility] Comment on above: Order Comment: Speci men Type: ARTERIAL BLOOD SPECIMENOrdering Facility: [facility] Address: [address] [place] [address] Performed By: #### A LLBG ####[facility] LABIA [id number] [place] [address] [place] Hematocrit (Bld) [Volume fraction] 33.5 % Low 36.0-46.0 [facility] Comment on above: Order Comment: Speci men Type: ARTERIAL BLOOD SPECIMENOrdering Facility: [facility] Address: [address] [place] [address] Performed By: #### A LLBG ####[facility] LABIA [id number] [place] [address] [place] Hemoglobin (Bld) [Mass/Vol] 10.9 g/dL Low 11.5-15.5 [facility] Comment on above: Order Comment: Speci men Type: ARTERIAL BLOOD SPECIMENOrdering Facility: [facility] Address: [address] [place] [address] Performed By: #### A LLBG ####[facility]CL[facility] [id number] [place] [address] [place] Lactate [Moles/Vol] 3.0 mmol/L High 0.5-2.2 [facility] Comment on above: Order Comment: Speci men Type: ARTERIAL BLOOD SPECIMENOrdering Facility: [facility] Address: [address] [place] [address] Performed By: #### A LLBG ####[facility] LABCLIA [id number] [address] [address] [place] Methemoglobin (Bld) [Mass fraction] 1.6 % High 0.0-1.5 [facility] Comment on above: Order Comment: Speci men Type: ARTERIAL BLOOD SPECIMENOrdering Facility: [facility] Address: [address] [place] [address] Performed By: #### A LLBG ####[facility] LABCLIA [id number] [place] [id number] [place] Oxygen (Bld) [Partial pressure] 359 mm Hg High 85-95 [facility] Comment on above: Order Comment: Speci men Type: ARTERIAL BLOOD SPECIMENOrdering Facility: [facility] Address: [address] [place] [address] Performed By: #### A LLBG ####[facility] LABCLIA [id number] [place] [address] [place] Oxygen adjusted to patient's actual temperature (Bld) [Partial pressure] 359 mmHg High 85-95 [facility] Comment on above: Order Comment: Speci men Type: ARTERIAL BLOOD SPECIMENOrdering Facility: [facility] Address: [address] [place], [place] [id number] Performed By: #### A LLBG ####[facility] LABIA [id number] [place] [id number] [place] Oxyhemoglobin (BldA) [Mass fraction] 96 % Normal 95-98 [facility] Comment on above: Order Comment: Speci men Type: ARTERIAL BLOOD SPECIMENOrdering Facility: [facility] Address: [address] [place] [address] Performed By: #### A LLBG ####[facility] LABCLIA [id number] [place] [id number] [place] pH (Bld) 7.36 [pH] Normal 7.35-7.45 [facility] Comment on above: Order Comment: Speci men Type: ARTERIAL BLOOD SPECIMENOrdering Facility: [facility] Address: [address] [place] [address] Performed By: #### A LLBG ####[facility] LABIA [id number] [place] [address] [place] pH adjusted to patient's actual temperature (Bld) 7.36 Normal 7.35-7.45 [facility] Comment on above: Order Comment: Speci men Type: ARTERIAL BLOOD SPECIMENOrdering Facility: [facility] Address: [address] [place] [address] Performed By: #### A LLBG ####[facility] LABIA [id number] [place] [address] [place] Potassium [Moles/Vol] 5.0 mmol/L Normal 3.5-5.0 [facility] Comment on above: Order Comment: Speci men Type: ARTERIAL BLOOD SPECIMENOrdering Facility: [facility] Address: [address] [place] [address] Performed By: #### A LLBG ####[facility] LABIA [id number] [place] [address] [place] Sodium [Moles/Vol] 133 mmol/L Low 136-144 [facility] Comment on above: Order Comment: Speci men Type: ARTERIAL BLOOD SPECIMENOrdering Facility: [facility] Address: [address] [place] [address] Performed By: #### A LLBG ####[facility] LABIA [id number] [place] [address] [place] Base deficit (BldA) [Moles/Vol] -3 mmol/L Low -2-0 [facility] Comment on above: Order Comment: Speci men Type: ARTERIAL BLOOD SPECIMENOrdering Facility: [facility] Address: [address] [place] [address] Performed By: #### A LLBG ####[facility] LABIA [id number] [place] [address] [place] Calcium.ionized (Bld) [Mass/Vol] 1.16 mmol/L Normal 1.08-1.30 [facility] Comment on above: Order Comment: Speci men Type: ARTERIAL BLOOD SPECIMENOrdering Facility: [facility] Address: [address] [place] [address] Performed By: #### A LLBG ####[facility] LABIA [id number] [place] [address] [place] Calcium.ionized adjusted to pH 7.4 (BldA) [Moles/Vol] 1.14 mmol/L Normal 1.08-1.30 [facility] Comment on above: Order Comment: Speci men Type: ARTERIAL BLOOD SPECIMENOrdering Facility: [facility] Address: [address] [place] [address] Performed By: #### A LLBG ####[facility] [id number] [place] [address] [place] Carboxyhemoglobin (BldA) [Mass fraction] 1.0 % Normal 0.0-2.0 [facility] Comment on above: Order Comment: Speci men Type: ARTERIAL BLOOD SPECIMENOrdering Facility: [facility] Address: [address] [place] [address] Result Comment: Carb oxyhemoglobin Reference Range for Smokers: 2.0-8.0% Performed By: #### A LLBG ####[facility] LABIA [id number] [place] [address] [place] CO2 (Bld) [Partial pressure] 38 mm Hg Normal 36-46 [facility] Comment on above: Order Comment: Speci men Type: ARTERIAL BLOOD SPECIMENOrdering Facility: [facility] Address: [address] [place] [address] Performed By: #### A LLBG ####[facility] LABIA [id number] [place] [address] [place] CO2 adjusted to patient's actual temperature (Bld) [Partial pressure] 38 mmHg Normal 36-46 [facility] Comment on above: Order Comment: Speci men Type: ARTERIAL BLOOD SPECIMENOrdering Facility: [facility] Address: [address] [place] [address] Performed By: #### A LLBG ####[facility] LABCLIA [id number] [place] [address] [place] Glucose [Mass/Vol] 242 mg/dL High 60-105 [facility] Comment on above: Order Comment: Speci men Type: ARTERIAL BLOOD SPECIMENOrdering Facility: [facility] Address: [address] [place] [address] Performed By: #### A LLBG ####[facility] LABCLIA [id number] [place] [address] [place] HCO3 (Bld) [Moles/Vol] 21 mmol/L Low 22-26 [facility] Comment on above: Order Comment: Speci men Type: ARTERIAL BLOOD SPECIMENOrdering Facility: [facility] Address: [address] [place] [address] Performed By: #### A LLBG ####[facility] LABCLIA [id number] [place] [address] [place] Hematocrit (Bld) [Volume fraction] 33.0 % Low 36.0-46.0 [facility] Comment on above: Order Comment: Speci men Type: ARTERIAL BLOOD SPECIMENOrdering Facility: [facility] Address: [address] [place] [address] Performed By: #### A LLBG ####[facility] LABCLIA [id number] [place] [address] [place] Hemoglobin (Bld) [Mass/Vol] 10.7 g/dL Low 11.5-15.5 [facility] Comment on above: Order Comment: Speci men Type: ARTERIAL BLOOD SPECIMENOrdering Facility: [facility] Address: [address] [place] [address] Performed By: #### A LLBG ####[facility] LABCLIA [id number] [address] [address] [place] Methemoglobin (Bld) [Mass fraction] 0.9 % Normal 0.0-1.5 [facility] Comment on above: Order Comment: Speci men Type: ARTERIAL BLOOD SPECIMENOrdering Facility: [facility] Address: [address] [place] [id number] Performed By: #### A LLBG ####[facility] LABCLIA [id number] [address] [address] [place] Oxygen (Bld) [Partial pressure] 439 mm Hg High 85-95 [facility] Comment on above: Order Comment: Speci men Type: ARTERIAL BLOOD SPECIMENOrdering Facility: [facility] Address: [address] [place] [id number] Performed By: #### A LLBG ####[facility] LABCLIA [id number] [place] [address] [place] Oxygen adjusted to patient's actual temperature (Bld) [Partial pressure] 439 mmHg High 85-95 [facility] Comment on above: Order Comment: Speci men Type: ARTERIAL BLOOD SPECIMENOrdering Facility: [facility] Address: [address] [place] [address] Performed By: #### A LLBG ####[facility] LABCLIA [id number] [address] [address] [place] Oxyhemoglobin (BldA) [Mass fraction] 96 % Normal 95-98 [facility] Comment on above: Order Comment: Speci men Type: ARTERIAL BLOOD SPECIMENOrdering Facility: [facility] Address: [address] [place] [address] Performed By: #### A LLBG ####[facility] LABCLIA [id number] [place] [address] [place] pH (Bld) 7.37 [pH] Normal 7.35-7.45 [facility] Comment on above: Order Comment: Speci men Type: ARTERIAL BLOOD SPECIMENOrdering Facility: [facility] Address: [address] [place] [address] Performed By: #### A LLBG ####[facility] LABIA [id number] [place] [address] [place] pH adjusted to patient's actual temperature (Bld) 7.37 Normal 7.35-7.45 [facility] Comment on above: Order Comment: Speci men Type: ARTERIAL BLOOD SPECIMENOrdering Facility: [facility] Address: [address] [place] [address] Performed By: #### A LLBG ####[facility] LABIA [id number] [place] [address] [place] Potassium [Moles/Vol] 5.8 mmol/L High 3.5-5.0 [facility] Comment on above: Order Comment: Speci men Type: ARTERIAL BLOOD SPECIMENOrdering Facility: [facility] Address: [address] [place] [address] Performed By: #### A LLBG ####[facility] LABIA [id number] [place] [address] [place] Sodium [Moles/Vol] 129 mmol/L Low 136-144 [facility] Comment on above: Order Comment: Speci men Type: ARTERIAL BLOOD SPECIMENOrdering Facility: [facility] Address: [address] [place] [address] Performed By: #### A LLBG ####[facility] LABIA [id number] [place] [address] [place] Base deficit (BldA) [Moles/Vol] -2 mmol/L Normal -2-0 [facility] Comment on above: Order Comment: Speci men Type: ARTERIAL BLOOD SPECIMENOrdering Facility: [facility] Address: [address] [place] [address] Performed By: #### A LLBG ####[id number] [place] [address] [place] Calcium.ionized (Bld) [Mass/Vol] 1.29 mmol/L Normal 1.08-1.30 [facility] Comment on above: Order Comment: Speci men Type: ARTERIAL BLOOD SPECIMENOrdering Facility: [facility] Address: [address] [place] [address] Performed By: #### A LLBG ####[facility] [id number] [place] [address] [place] Calcium.ionized adjusted to pH 7.4 (BldA) [Moles/Vol] 1.24 mmol/L Normal 1.08-1.30 [facility] Comment on above: Order Comment: Speci men Type: ARTERIAL BLOOD SPECIMENOrdering Facility: [facility] Address: [address] [place] [address] Performed By: #### A LLBG ####[facility] [id number] [place] [address] [place] Carboxyhemoglobin (BldA) [Mass fraction] 1.7 % Normal 0.0-2.0 [facility] Comment on above: Order Comment: Speci men Type: ARTERIAL BLOOD SPECIMENOrdering Facility: [facility] Address: [address] [place] [address] Result Comment: Carb oxyhemoglobin Reference Range for Smokers: 2.0-8.0% Performed By: #### A LLBG ####[facility] [id number] [place] [address] [place] CO2 (Bld) [Partial pressure] 45 mm Hg Normal 36-46 [facility] Comment on above: Order Comment: Speci men Type: ARTERIAL BLOOD SPECIMENOrdering Facility: [facility] Address: [address] [place] [address] Performed By: #### A LLBG ####[facility] LABCLIA [id number] [place] [address] [place] CO2 adjusted to patient's actual temperature (Bld) [Partial pressure] 45 mmHg Normal 36-46 [facility] Comment on above: Order Comment: Speci men Type: ARTERIAL BLOOD SPECIMENOrdering Facility: [facility] Address: [address] [place] [address] Performed By: #### A LLBG ####[facility] LABCLIA [id number] [place] [address] [place] Glucose [Mass/Vol] 197 mg/dL High 60-105 [facility] Comment on above: Order Comment: Speci men Type: ARTERIAL BLOOD SPECIMENOrdering Facility: [facility] Address: [address] [place] [address] Performed By: #### A LLBG ####[facility] LABCLIA [id number] [place] [address] [place] HCO3 (Bld) [Moles/Vol] 23 mmol/L Normal 22-26 [facility] Comment on above: Order Comment: Speci men Type: ARTERIAL BLOOD SPECIMENOrdering Facility: [facility] Address: [address] [place] [address] Performed By: #### A LLBG ####[facility] LABCLIA [id number] [place] [address] [place] Hematocrit (Bld) [Volume fraction] 39.4 % Normal 36.0-46.0 [facility] Comment on above: Order Comment: Speci men Type: ARTERIAL BLOOD SPECIMENOrdering Facility: [facility] Address: [address] [place] [address] Performed By: #### A LLBG ####[facility] LABCLIA [id number] [id number] [address] [place] Hemoglobin (Bld) [Mass/Vol] 12.8 g/dL Normal 11.5-15.5 [facility] Comment on above: Order Comment: Speci men Type: ARTERIAL BLOOD SPECIMENOrdering Facility: [facility] Address: [address] [place] [address] Performed By: #### A LLBG ####[facility] LABCLIA [id number] [place] [address] [place] Lactate [Moles/Vol] 1.4 mmol/L Normal 0.5-2.2 [facility] Comment on above: Order Comment: Speci men Type: ARTERIAL BLOOD SPECIMENOrdering Facility: [facility] Address: [address] [place] [address] Performed By: #### A LLBG ####[facility] LABCLIA [id number] [place] [address] [place] Methemoglobin (Bld) [Mass fraction] 1.6 % High 0.0-1.5 [facility] Comment on above: Order Comment: Speci men Type: ARTERIAL BLOOD SPECIMENOrdering Facility: [facility] Address: [address] [place] [address] Performed By: #### A LLBG ####[facility] LABCLIA [id number] [place] [address] [place] Oxygen (Bld) [Partial pressure] 168 mm Hg High 85-95 [facility] Comment on above: Order Comment: Speci men Type: ARTERIAL BLOOD SPECIMENOrdering Facility: [facility] Address: [address] [place] [address] Performed By: #### A LLBG ####[facility] LABCLIA [id number] [place] [address] [place] Oxygen adjusted to patient's actual temperature (Bld) [Partial pressure] 168 mmHg High 85-95 [facility] Comment on above: Order Comment: Speci men Type: ARTERIAL BLOOD SPECIMENOrdering Facility: [facility] Address: [address] [place] [address] Performed By: #### A LLBG ####[facility] LABCLIA [id number] [place] [address] [place] Oxyhemoglobin (BldA) [Mass fraction] 96 % Normal 95-98 [facility] Comment on above: Order Comment: Speci men Type: ARTERIAL BLOOD SPECIMENOrdering Facility: [facility] Address: [address] [place] [address] Performed By: #### A LLBG ####[facility] LABIA [id number] [place] [address] [place] pH (Bld) 7.33 [pH] Low 7.35-7.45 [facility] Comment on above: Order Comment: Speci men Type: ARTERIAL BLOOD SPECIMENOrdering Facility: [facility] Address: [address] [place] [address] Performed By: #### A LLBG ####[facility] LABIA [id number] [place] [address] [place] pH adjusted to patient's actual temperature (Bld) 7.33 Low 7.35-7.45 [facility] Comment on above: Order Comment: Speci men Type: ARTERIAL BLOOD SPECIMENOrdering Facility: [facility] Address: [address] [place] [address] Performed By: #### A LLBG ####[facility] LABIA [id number] [place] [address] [place] Potassium [Moles/Vol] 4.3 mmol/L Normal 3.5-5.0 [facility] Comment on above: Order Comment: Speci men Type: ARTERIAL BLOOD SPECIMENOrdering Facility: [facility] Address: [address] [place] [address] Performed By: #### A LLBG ####[facility] LABIA [id number] [place] [address] [place] Sodium [Moles/Vol] 135 mmol/L Low 136-144 [facility] Comment on above: Order Comment: Speci men Type: ARTERIAL BLOOD SPECIMENOrdering Facility: [facility] Address: [address] [place] [address] Performed By: #### A LLBG ####[facility] LABIA [id number] [place] [address] [place] Base deficit (BldA) [Moles/Vol] -2 mmol/L Normal -2-0 [facility] Comment on above: Order Comment: Speci men Type: ARTERIAL BLOOD SPECIMENOrdering Facility: [facility] Address: [address] [place] [address] Performed By: #### A LLBG ####[facility] LABIA [id number] [place] [address] [place] Calcium.ionized (Bld) [Mass/Vol] 1.28 mmol/L Normal 1.08-1.30 [facility] Comment on above: Order Comment: Speci men Type: ARTERIAL BLOOD SPECIMENOrdering Facility: [facility] Address: [address] [place] [address] Performed By: #### A LLBG ####[facility] LABIA [id number] [place] [address] [place] Calcium.ionized adjusted to pH 7.4 (BldA) [Moles/Vol] 1.30 mmol/L Normal 1.08-1.30 [facility] Comment on above: Order Comment: Speci men Type: ARTERIAL BLOOD SPECIMENOrdering Facility: [facility] Address: [address] [place] [address] Performed By: #### A LLBG ####[facility] LABIA [id number] [place] [address] [place] Carboxyhemoglobin (BldA) [Mass fraction] 2.2 % High 0.0-2.0 [facility] Comment on above: Order Comment: Speci men Type: ARTERIAL BLOOD SPECIMENOrdering Facility: [facility] Address: [address] [place] [address] Result Comment: Carb oxyhemoglobin Reference Range for Smokers: 2.0-8.0% Performed By: #### A LLBG ####[facility] LABCLIA [id number] [place] [address] [place] CO2 (Bld) [Partial pressure] 33 mm Hg Low 36-46 [facility] Comment on above: Order Comment: Speci men Type: ARTERIAL BLOOD SPECIMENOrdering Facility: [facility] Address: [address] [place] [address] Performed By: #### A LLBG ####[facility] LABCLIA [id number] [place] [address] [place] CO2 adjusted to patient's actual temperature (Bld) [Partial pressure] 33 mmHg Low 36-46 [facility] Comment on above: Order Comment: Speci men Type: ARTERIAL BLOOD SPECIMENOrdering Facility: [facility] Address: [address] [place] [address] Performed By: #### A LLBG ####[facility] LABCLIA [id number] [place] [address] [place] Glucose [Mass/Vol] 173 mg/dL High 60-105 [facility] Comment on above: Order Comment: Speci men Type: ARTERIAL BLOOD SPECIMENOrdering Facility: [facility] Address: [address] [place] [address] Performed By: #### A LLBG ####[facility] LABCLIA [id number] [place] [address] [place] HCO3 (Bld) [Moles/Vol] 21 mmol/L Low 22-26 [facility] Comment on above: Order Comment: Speci men Type: ARTERIAL BLOOD SPECIMENOrdering Facility: [facility] Address: [address] [place] [address] Performed By: #### A LLBG ####[facility] LABCLIA [id number] [place] [address] [place] Hematocrit (Bld) [Volume fraction] 41.6 % Normal 36.0-46.0 [facility] Comment on above: Order Comment: Speci men Type: ARTERIAL BLOOD SPECIMENOrdering Facility: [facility] Address: [address] [place] [address] Performed By: #### A LLBG ####[facility] LABIA [id number] [place] [address] [place] Hemoglobin (Bld) [Mass/Vol] 13.5 g/dL Normal 11.5-15.5 [facility] Comment on above: Order Comment: Speci men Type: ARTERIAL BLOOD SPECIMENOrdering Facility: [facility] Address: [address] [place] [address] Performed By: #### A LLBG ####[facility] LABIA [id number] [place] [address] [place] Lactate [Moles/Vol] 2.1 mmol/L Normal 0.5-2.2 [facility] Comment on above: Order Comment: Speci men Type: ARTERIAL BLOOD SPECIMENOrdering Facility: [facility] Address: [address] [place] [address] Performed By: #### A LLBG ####[facility] LABIA [id number] [place] [address] [place] Methemoglobin (Bld) [Mass fraction] 1.3 % Normal 0.0-1.5 [facility] Comment on above: Order Comment: Speci men Type: ARTERIAL BLOOD SPECIMENOrdering Facility: [facility] Address: [address] [place] [address] Performed By: #### A LLBG ####[facility] LABIA [id number] [place] [address] [place] Oxygen (Bld) [Partial pressure] 114 mm Hg High 85-95 [facility] Comment on above: Order Comment: Speci men Type: ARTERIAL BLOOD SPECIMENOrdering Facility: [facility] Address: [address] [place] [address] Performed By: #### A LLBG ####[facility] LABCLIA [id number] [address] [address] [place] Oxygen adjusted to patient's actual temperature (Bld) [Partial pressure] 114 mmHg High 85-95 [facility] Comment on above: Order Comment: Speci men Type: ARTERIAL BLOOD SPECIMENOrdering Facility: [facility] Address: [address] [place] [address] Performed By: #### A LLBG ####[facility] LABCL[facility] [id number] [place] [address] [place] Oxyhemoglobin (BldA) [Mass fraction] 95 % Normal 95-98 [facility] Comment on above: Order Comment: Speci men Type: ARTERIAL BLOOD SPECIMENOrdering Facility: [facility] Address: [address] [place] [address] Performed By: #### A LLBG ####[facility]CL[facility] [id number] [place] [address] [place] pH (Bld) 7.42 [pH] Normal 7.35-7.45 [facility] Comment on above: Order Comment: Speci men Type: ARTERIAL BLOOD SPECIMENOrdering Facility: [facility] Address: [address] [place] [address] Performed By: #### A LLBG ####[facility] LABCL[facility] [id number] [place] [address] [place] pH adjusted to patient's actual temperature (Bld) 7.42 Normal 7.35-7.45 [facility] Comment on above: Order Comment: Speci men Type: ARTERIAL BLOOD SPECIMENOrdering Facility: [facility] Address: [address] [place] [address] Performed By: #### A LLBG ####[facility]CL[facility] [id number] [place] [address] [place] Potassium [Moles/Vol] 4.1 mmol/L Normal 3.5-5.0 [facility] Comment on above: Order Comment: Speci men Type: ARTERIAL BLOOD SPECIMENOrdering Facility: [facility] Address: [address] [place] [address] Performed By: #### A LLBG ####[facility] LABCL[facility] [id number] [place] [address] [place] Sodium [Moles/Vol] 133 mmol/L Low 136-144 [facility] Comment on above: Order Comment: Speci men Type: ARTERIAL BLOOD SPECIMENOrdering Facility: [facility] Address: [address] [place] [address] Performed By: #### A LLBG ####[facility]CL[facility] [id number] [place] [address] [place] ARTERIAL BLOOD GASES WITH IO NIZED MAGNESIUMon 07-29-2023 Base excess Calc (Bld) [Moles/Vol] 0 mmol/L Normal 0-2 [facility] Comment on above: Order Comment: Speci men Type: ARTERIAL BLOOD SPECIMENOrdering Facility: [facility] Address: [address] [place] [address] Performed By: #### A LLMG ####[facility]CL[facility] [id number] [place] [address] [place] Calcium.ionized (Bld) [Mass/Vol] 1.28 mmol/L Normal 1.08-1.30 [facility] Comment on above: Order Comment: Speci men Type: ARTERIAL BLOOD SPECIMENOrdering Facility: [facility] Address: [address] [place] [address] Performed By: #### A LLMG ####[facility]CL[facility] [id number] [place] [address] [place] Calcium.ionized adjusted to pH 7.4 (BldA) [Moles/Vol] 1.27 mmol/L Normal 1.08-1.30 [facility] Comment on above: Order Comment: Speci men Type: ARTERIAL BLOOD SPECIMENOrdering Facility: [facility] Address: [address] [place] [address] Performed By: #### A LLMG ####[facility]CL[facility] [id number] [place] [address] [place] Carboxyhemoglobin (BldA) [Mass fraction] 1.2 % Normal 0.0-2.0 [facility] Comment on above: Order Comment: Speci men Type: ARTERIAL BLOOD SPECIMENOrdering Facility: [facility] Address: [address] [place] [address] Result Comment: Carb oxyhemoglobin Reference Range for Smokers: 2.0-8.0% Performed By: #### A LLMG ####[facility]CL[facility] [id number] [place] [address] [place] CO2 (Bld) [Partial pressure] 42 mm Hg Normal 36-46 [facility] Comment on above: Order Comment: Speci men Type: ARTERIAL BLOOD SPECIMENOrdering Facility: [facility] Address: [address] [place] [address] Performed By: #### A LLMG ####[facility]CL[facility] [id number] [place] [address] [place] CO2 adjusted to patient's actual temperature (Bld) [Partial pressure] 42 mmHg Normal 36-46 [facility] Comment on above: Order Comment: Speci men Type: ARTERIAL BLOOD SPECIMENOrdering Facility: [facility] Address: [address] [place] [address] Performed By: #### A LLMG ####[facility]CL[facility] [id number] [place] [address] [place] Glucose [Mass/Vol] 119 mg/dL High 60-105 [facility] Comment on above: Order Comment: Speci men Type: ARTERIAL BLOOD SPECIMENOrdering Facility: [facility] Address: [address] [place] [address] Performed By: #### A LLMG ####[facility]CL[facility] [id number] [place] [address] [place] HCO3 (Bld) [Moles/Vol] 25 mmol/L Normal 22-26 [facility] Comment on above: Order Comment: Speci men Type: ARTERIAL BLOOD SPECIMENOrdering Facility: [facility] Address: [address] [place] [address] Performed By: #### A LLMG ####[facility] [id number] [place] [address] [place] Hematocrit (Bld) [Volume fraction] 35.4 % Low 36.0-46.0 [facility] Comment on above: Order Comment: Speci men Type: ARTERIAL BLOOD SPECIMENOrdering Facility: [facility] Address: [address] [place] [address] Performed By: #### A LLMG ####[facility]CL[facility] [id number] [place] [address] [place] Hemoglobin (Bld) [Mass/Vol] 11.5 g/dL Normal 11.5-15.5 [facility] Comment on above: Order Comment: Speci men Type: ARTERIAL BLOOD SPECIMENOrdering Facility: [facility] Address: [address] [place] [address] Performed By: #### A LLMG ####[facility]CL[facility] [id number] [place] [address] [place] Lactate [Moles/Vol] 2.4 mmol/L High 0.5-2.2 [facility] Comment on above: Order Comment: Speci men Type: ARTERIAL BLOOD SPECIMENOrdering Facility: [facility] Address: [address] [place] [address] Performed By: #### A LLMG ####[facility]CL[facility] [id number] [place] [address] [place] Magnesium [Moles/Vol] 0.51 mmol/L Normal 0.45-0.60 [facility] Comment on above: Order Comment: Speci men Type: ARTERIAL BLOOD SPECIMENOrdering Facility: [facility] Address: [address] [place] [address] Performed By: #### A LLMG ####[facility]CL[facility] [id number] [place] [address] [place] Methemoglobin (Bld) [Mass fraction] 1.0 % Normal 0.0-1.5 [facility] Comment on above: Order Comment: Speci men Type: ARTERIAL BLOOD SPECIMENOrdering Facility: [facility] Address: [address] [place] [address] Performed By: #### A LLMG ####[facility] LABIA [id number] [place] [address] [place] Oxygen (Bld) [Partial pressure] 150 mm Hg High 85-95 [facility] Comment on above: Order Comment: Speci men Type: ARTERIAL BLOOD SPECIMENOrdering Facility: [facility] Address: [address] [place] [address] Performed By: #### A LLMG ####[facility] LABIA [id number] [place] [address] [place] Oxygen adjusted to patient's actual temperature (Bld) [Partial pressure] 150 mmHg High 85-95 [facility] Comment on above: Order Comment: Speci men Type: ARTERIAL BLOOD SPECIMENOrdering Facility: [facility] Address: [address] [place] [address] Performed By: #### A LLMG ####[facility] LABIA [id number] [place] [address] [place] Oxyhemoglobin (BldA) [Mass fraction] 97 % Normal 95-98 [facility] Comment on above: Order Comment: Speci men Type: ARTERIAL BLOOD SPECIMENOrdering Facility: [facility] Address: [address] [place] [address] Performed By: #### A LLMG ####[facility]CL[facility] [id number] [place] [address] [place] pH (Bld) 7.39 [pH] Normal 7.35-7.45 [facility] Comment on above: Order Comment: Speci men Type: ARTERIAL BLOOD SPECIMENOrdering Facility: [facility] Address: [address] [place] [address] Performed By: #### A LLMG ####[facility]CL[facility] [id number] [place] [address] [place] pH adjusted to patient's actual temperature (Bld) 7.39 Normal 7.35-7.45 [facility] Comment on above: Order Comment: Speci men Type: ARTERIAL BLOOD SPECIMENOrdering Facility: [facility] Address: [address] [place] [address] Performed By: #### A LLMG ####[facility]CL[facility] [id number] [place] [address] [place] Potassium [Moles/Vol] 3.9 mmol/L Normal 3.5-5.0 [facility] Comment on above: Order Comment: Speci men Type: ARTERIAL BLOOD SPECIMENOrdering Facility: [facility] Address: [address] [place] [address] Performed By: #### A LLMG ####[facility] LABIA [id number] [place] [address] [place] Sodium [Moles/Vol] 134 mmol/L Low 136-144 [facility] Comment on above: Order Comment: Speci men Type: ARTERIAL BLOOD SPECIMENOrdering Facility: [facility] Address: [address] [place] [address] Performed By: #### A LLMG ####[facility] LABIA [id number] [place] [address] [place] CBC panel Auto (Bld)on 07-29 Erythrocyte distribution width (RBC) [Ratio] 11.9 % Normal 11.5-15.0 [facility] Comment on above: Order Comment: Speci men Type: BLOOD SPECIMENOrdering Facility: [facility] Address: [address] [place] [address] Performed By: #### 5 8410-2 ####[facility] LABIA [id number] [place] [address] [place] Hematocrit (Bld) [Volume fraction] 35.0 % Low 36.0-46.0 [facility] Comment on above: Order Comment: Speci men Type: BLOOD SPECIMENOrdering Facility: [facility] Address: [address] [place] [address] Performed By: #### 5 8410-2 ####[facility] LABIA [id number] [place] [address] [place] Hemoglobin (Bld) [Mass/Vol] 11.9 g/dL Normal 11.5-15.5 [facility] Comment on above: Order Comment: Speci men Type: BLOOD SPECIMENOrdering Facility: [facility] Address: [address] [place] [address] Performed By: #### 5 8410-2 ####[facility] LABIA [id number] [place] [address] [place] MCH (RBC) [Entitic mass] 31.3 pg Normal 26.0-34.0 [facility] Comment on above: Order Comment: Speci men Type: BLOOD SPECIMENOrdering Facility: [facility] Address: [address] [place] [address] Performed By: #### 5 8410-2 ####[facility] LABIA [id number] [place] [address] [place] MCHC (RBC) [Mass/Vol] 34.0 g/dL Normal 30.5-36.0 [facility] Comment on above: Order Comment: Speci men Type: BLOOD SPECIMENOrdering Facility: [facility] Address: [address] [place] [address] Performed By: #### 5 8410-2 ####[facility]CL[facility] [id number] [place] [address] [place] MCV (RBC) [Entitic vol] 92.1 fL Normal 80.0-100.0 [facility] Comment on above: Order Comment: Speci men Type: BLOOD SPECIMENOrdering Facility: [facility] Address: [address] [place] [address] Performed By: #### 5 8410-2 ####[facility]CL[facility] [id number] [place] [address] [place] Nucleated RBC (Bld) [#/Vol] 10*3/uL Normal <0.01 [facility] Comment on above: Order Comment: Speci men Type: BLOOD SPECIMENOrdering Facility: [facility] Address: [address] [place] [address] Performed By: #### 5 8410-2 ####[facility]CL[facility] [id number] [place] [address] [place] Platelet mean volume (Bld) [Entitic vol] 9.8 fL Normal 9.0-12.7 [facility] Comment on above: Order Comment: Speci men Type: BLOOD SPECIMENOrdering Facility: [facility] Address: [address] [place] [address] Performed By: #### 5 8410-2 ####[facility]CL[facility] [id number] [place] [address] [place] Platelets (Bld) [#/Vol] 170 10*3/uL Normal 150-400 [facility] Comment on above: Order Comment: Speci men Type: BLOOD SPECIMENOrdering Facility: [facility] Address: [address] [place] [address] Performed By: #### 5 8410-2 ####[facility]CL[facility] [id number] [place] [address] [place] RBC (Bld) [#/Vol] 3.80 10*6/uL Low 3.90-5.20 [facility] Comment on above: Order Comment: Speci men Type: BLOOD SPECIMENOrdering Facility: [facility] Address: [address] [place] [address] Performed By: #### 5 8410-2 ####[facility]CL[facility] [id number] [place] [address] [place] WBC (Bld) [#/Vol] 11.18 10*3/uL High 3.70-11.00 [facility] Comment on above: Order Comment: Speci men Type: BLOOD SPECIMENOrdering Facility: [facility] Address: [address] [place] [address] Performed By: #### 5 8410-2 ####[facility]CL[facility] [id number] [place] [address] [place] Fibrinogen PPP-mCncon 2023 Fibrinogen Coag (PPP) [Mass/Vol] 348 mg/dL Normal 200-400 [facility] Comment on above: Order Comment: Speci men Type: BLOOD SPECIMENOrdering Facility: [facility] Address: [address] [place] [address] Performed By: #### 3 255-7, 57141-7, 15873-0 ####[facility]CL[facility] [id number] [place] [address] [place] Fibrinogen Coag (PPP) [Mass/Vol] 165 mg/dL Low 200-400 [facility] Comment on above: Order Comment: Speci men Type: BLOOD SPECIMENOrdering Facility: [facility] Address: [address] [place] [address] Performed By: #### 3 255-7 ####[facility]CL[facility] [id number] [place] [address] [place] Gas + CO Pnl BldVon 07-29-19 24 Lactate [Moles/Vol] 1.4 mmol/L Normal 0.5-2.2 [facility] Comment on above: Order Comment: Speci men Type: VENOUS BLOOD SPECIMENOrdering Facility: [facility] Address: [address] [place] [address] Performed By: #### 2 4344-4 ####[facility] LABIA [id number] [place] [address] [place] Order Comment: Speci men Type: ARTERIAL BLOOD SPECIMENOrdering Facility: [facility] Address: [address] [place] [address] Performed By: #### A LLBG ####[facility] LABIA [id number] [place] [address] [place] Gas and Carbon monoxide pane l (BldV)on 07-29-2023 BASE DEFICIT, VENOUS -3 mmol/L Low -2-0 [facility] Comment on above: Order Comment: Speci men Type: VENOUS BLOOD SPECIMENOrdering Facility: [facility] Address: [address] [place] [address] Performed By: #### 2 4344-4 ####[facility] LABIA [id number] [place] [address] [place] Calcium.ionized (Bld) [Mass/Vol] 1.19 mmol/L Normal 1.08-1.30 [facility] Comment on above: Order Comment: Speci men Type: VENOUS BLOOD SPECIMENOrdering Facility: [facility] Address: [address] [place] [address] Performed By: #### 2 4344-4 ####[facility] LABIA [id number] [place] [address] [place] Calcium.ionized adjusted to pH 7.4 (BldA) [Moles/Vol] 1.15 mmol/L Normal 1.08-1.30 [facility] Comment on above: Order Comment: Speci men Type: VENOUS BLOOD SPECIMENOrdering Facility: [facility] Address: [address] [place] [address] Performed By: #### 2 4344-4 ####[facility] LABIA [id number] [place] [address] [place] Carboxyhemoglobin (BldV) [Mass fraction] 1.7 % Normal 0.0-2.0 [facility] Comment on above: Order Comment: Speci men Type: VENOUS BLOOD SPECIMENOrdering Facility: [facility] Address: [address] [place] [address] Result Comment: Carb oxyhemoglobin Reference Range for Smokers: 2.0-8.0% Performed By: #### 2 4344-4 ####[facility] LABIA [id number] [place] [address] [place] CO2 (BldV) [Partial pressure] 45 mm[Hg] Normal 42-55 [facility] Comment on above: Order Comment: Speci men Type: VENOUS BLOOD SPECIMENOrdering Facility: [facility] Address: [address] [place] [address] Performed By: #### 2 4344-4 ####[facility] LABIA [id number] [place] [address] [place] CO2 adjusted to patient's actual temperature (BldV) [Partial pressure] 45 mmHg Normal 42-55 [facility] Comment on above: Order Comment: Speci men Type: VENOUS BLOOD SPECIMENOrdering Facility: [facility] Address: [address] [place] [address] Performed By: #### 2 4344-4 ####[facility] LABIA [id number] [place] [address] [place] Glucose [Mass/Vol] 241 mg/dL High 60-105 [facility] Comment on above: Order Comment: Speci men Type: VENOUS BLOOD SPECIMENOrdering Facility: [facility] Address: [address] [place] [address] Performed By: #### 2 4344-4 ####[facility]CL[facility] [id number] [place] [address] [place] HCO3 (Bld) [Moles/Vol] 23 mmol/L Low 24-28 [facility] Comment on above: Order Comment: Speci men Type: VENOUS BLOOD SPECIMENOrdering Facility: [facility] Address: [address] [place] [address] Performed By: #### 2 4344-4 ####[facility] LABCL[facility] [id number] [place] [address] [place] Hematocrit (Bld) [Volume fraction] 33.3 % Low 36.0-46.0 [facility] Comment on above: Order Comment: Speci men Type: VENOUS BLOOD SPECIMENOrdering Facility: [facility] Address: [address] [place] [address] Performed By: #### 2 4344-4 ####[facility]CL[facility] [id number] [place] [address] [place] Hemoglobin (Bld) [Mass/Vol] 10.8 g/dL Low 11.5-15.5 [facility] Comment on above: Order Comment: Speci men Type: VENOUS BLOOD SPECIMENOrdering Facility: [facility] Address: [address] [place] [address] Performed By: #### 2 4344-4 ####[facility]CL[facility] [id number] [place] [address] [place] Methemoglobin (Bld) [Mass fraction] 1.2 % Normal 0.0-1.5 [facility] Comment on above: Order Comment: Speci men Type: VENOUS BLOOD SPECIMENOrdering Facility: [facility] Address: [address] [place] [address] Performed By: #### 2 4344-4 ####[facility]CL[facility] [id number] [address] [address] [place] Oxygen (BldV) [Partial pressure] 51 mm[Hg] High 35-45 [facility] Comment on above: Order Comment: Speci men Type: VENOUS BLOOD SPECIMENOrdering Facility: [facility] Address: [address] [place] [address] Performed By: #### 2 4344-4 ####[facility]CL[facility] [id number] [address] [address] [place] Oxygen adjusted to patient's actual temperature (BldV) [Partial pressure] 51 mmHg High 35-45 [facility] Comment on above: Order Comment: Speci men Type: VENOUS BLOOD SPECIMENOrdering Facility: [facility] Address: [address] [place] [address] Performed By: #### 2 4344-4 ####[facility]CL[facility] [id number] [address] [address] [place] Oxygen saturation in Venous blood 83 % Normal 60-85 [facility] Comment on above: Order Comment: Speci men Type: VENOUS BLOOD SPECIMENOrdering Facility: [facility] Address: [address] [place] [address] Performed By: #### 2 4344-4 ####[facility]CL[facility] [id number] [address] [address] [place] Oxyhemoglobin (BldV) [Mass fraction] 80 % Normal 60-85 [facility] Comment on above: Order Comment: Speci men Type: VENOUS BLOOD SPECIMENOrdering Facility: [facility] Address: [address] [place] [address] Performed By: #### 2 4344-4 ####[facility]CL[facility] [id number] [place] [address] [place] pH (BldV) 7.33 [pH] Normal 7.32-7.42 [facility] Comment on above: Order Comment: Speci men Type: VENOUS BLOOD SPECIMENOrdering Facility: [facility] Address: [address] [place] [address] Performed By: #### 2 4344-4 ####[facility]CL[facility] [id number] [place] [address] [place] pH adjusted to patient's actual temperature (BldV) 7.33 Normal 7.32-7.42 [facility] Comment on above: Order Comment: Speci men Type: VENOUS BLOOD SPECIMENOrdering Facility: [facility] Address: [address] [place] [address] Performed By: #### 2 4344-4 ####[facility]CL[facility] [id number] [place] [address] [place] Potassium [Moles/Vol] 5.7 mmol/L High 3.5-5.0 [facility] Comment on above: Order Comment: Speci men Type: VENOUS BLOOD SPECIMENOrdering Facility: [facility] Address: [address] [place] [address] Performed By: #### 2 4344-4 ####[facility] LABIA [id number] [place] [address] [place] Sodium [Moles/Vol] 130 mmol/L Low 136-144 [facility] Comment on above: Order Comment: Speci men Type: VENOUS BLOOD SPECIMENOrdering Facility: [facility] Address: [address] [place] [address] Performed By: #### 2 4344-4 ####[facility]CL[facility] [id number] [place] [address] [place] [facility] Glucose [Mass/Vol] 131 mg/dL High 74-99 [facility] Comment on above: Order Comment: Phyllis stein Type: BLOOD SPECIMENOrdering Facility: [facility] Address: [address] [address] [place] [address] Result Comment: The [place] [employer] (ADA) provides guidance for cutoff [...] Standards of Medical Care in Diabetes 2016, [place] [employer]. Diabetes Care. 2016.39(Suppl 1). Performed By: #### 2 345-7, K1 ####[facility] LABCL[facility] [id number] [place] [address] [place] HCV RNA WALKER+probe Qnon 07-29 HBV surface Ag Ql (S) Negative Normal Negative [facility] Comment on above: Order Comment: Phyllis stein Type: BLOOD SPECIMENOrdering Facility: [facility] Exposure Address: [place] [address] Performed By: #### 1 1011-4 ####[facility]CL[facility] [id number] [place] [address] [place] HCV Ab Ql (S) Negative Normal Negative [facility] Comment on above: Order Comment: Phyllis stein Type: BLOOD SPECIMENOrdering Facility: [facility] Exposure Address: [place] [address] Result Comment: The result suggests no evidence of active infection with Hepatitis C virus. Should recent infection be suspected, repeat testing may be considered 4-6 weeks after this draw. Performed By: #### 1 1011-4 ####[facility] LABCL[facility] [id number] [place] [address] [place] HIV 1 and 2 Ab IA.rapid Nom (S/P/Bld) Normal [facility] Comment on above: Order Comment: Speci men Type: BLOOD SPECIMENOrdering Facility: [facility] Exposure Address: [place] [address] Result Comment: Test not indicated. Performed By: #### 1 1011-4 ####[facility]CL[facility] [id number] [address] OF [facility] HIV 1+2 Ab+HIV1 p24 Ag IA Ql Non-Reactive Normal Nonreactive [facility] Comment on above: Order Comment: Speci men Type: BLOOD SPECIMENOrdering Facility: [facility] Occupational [facility] Exposure Address: [place] [address] Performed By: #### 1 1011-4 ####[facility] [id number] [address] OF [facility] HIV immunoassay testing algorithm interpretation (S/P/Bld) [Interp] Normal [facility] Comment on above: Order Comment: Speci men Type: BLOOD SPECIMENOrdering Facility: [facility] Occupational [facility] Exposure Address: [place] [address] Result Comment: No e vidence of HIV-1 or HIV-2 infection. Should recent infection be suspected, repeat testing may be considered 2-3 weeks after this draw.Worth Rev. Code 3701.243(E): This information has been [...] or diagnoses. Performed By: #### 1 1011-4 ####[facility] LABIA [id number] [place] [address] [place] HISTORY PHYSICALon 4 HISTORY PHYSICAL Normal [facility] HIV1+2 Ab Ser Qlon 4 HIV 1+2 Ab Ql (S) Negative Normal Non-Reacti ve : Negative for both HIV1 and HIV2 antibodies. [facility] Comment on above: Order Comment: Speci men Type: BLOOD SPECIMENOrdering Facility: [facility] Occupational Health Exposure Address: [address] [address] Result Comment: A no n-reactive result does not preclude the possibility of exposure to HIV or infection with HIV. An antibody response to recent exposure may take several weeks to reach detectable levels with this assay.Performed by the [employer] Rapid HIV-1/2 Antibody Test.HIV Information: Worth Rev. Code 3701.243(E):This information has been disclosed [...] or diagnoses. Performed By: #### 7 918-6 ####[facility] [id number] [place] [address] [place] INTRAOPERATIVE ECHO PREon INTRAOPERATIVE ECHO PRE Normal [facility] OPERATIVE NOon 07-29-2023 OPERATIVE NO Normal [facility] POTASSIUM BLDon 07-29-2023 Potassium [Moles/Vol] 4.6 mmol/L Normal 3.7-5.1 [facility] Comment on above: Order Comment: Speci men Type: BLOOD SPECIMENOrdering Facility: [facility] Address: [address] [place] [address] Performed By: #### 2 345-7, K1 ####[facility] [id number] [place] [address] [place] PT panel Coag (PPP)on 2023 INR Coag (PPP) [Relative time] 1.1 {INR} Normal 0.9-1.3 [facility] Comment on above: Order Comment: Speci men Type: BLOOD SPECIMENOrdering Facility: [facility] Address: [address] [place] [address] Result Comment: Suzanne min K Antagonist (VKA) Therapeutic Range: INR 2 to 3 (Target INR of 2.5)Note: For patients treated with VKA drugs, such as warfarin, the [employer] 2012 Guideline recommends [...] al. Chest 2012, 141:7S-47SNishausten RA, et al. [facility] 2017, 70: 252-289 Performed By: #### 3 255-7, 47410-9, 17942-3 ####[facility] LABCLIA [id number] [place] [address] [place] PT Coag (PPP) [Time] 11.5 s Normal 9.7-13.0 [facility] Comment on above: Order Comment: Speci men Type: BLOOD SPECIMENOrdering Facility: [facility] Address: [address] [place] [address] Performed By: #### 3 255-7, 82045-0, 80579-3 ####[facility] LABCLIA [id number] [place] [id number] [place] Platelets Auto (Bld) [#/Vol] on 07-29-2023 Platelets (Bld) [#/Vol] 194 10*3/uL Normal 150-400 [facility] Comment on above: Order Comment: Speci men Type: BLOOD SPECIMENOrdering Facility: [facility] Address: [address] [place] [address] Performed By: #### 7 77-3 ####[facility] LABCLIA [id number] [address] OF [place] STAPH AUREUS PCRon 4 S. aureus and MRSA panel WALKER+probe (Nose) Normal Negative [facility] Comment on above: Order Comment: Speci men Type: SWAB OF INTERNAL NOSEOrdering Facility: [facility] Address: [address] [place] [address] Result Comment: Nega tive for Staphylococcus aureus by PCR.Negative for MRSA by PCR Performed By: #### S APCR ####[facility] LABCLIA [id number] [address] OF [place] SURGICAL PATHOLOGYon 024 CASE REPORT Normal [facility] Comment on above: Order Comment: Speci men Type: TISSUE SPECIMENOrdering Facility: [facility] Address: [address] [place] [address] Result Comment: Surg ical Pathology Report Case: [id number] Provider: Willem Suarez MD Collected: 07/29/2023 10:16 AMOrdering Location: Admitting Received: 07/29/2023 02:15 PMPathologist: Sarita Black MDSpecimen: SOFT TISSUE, endarterectomy Performed By: #### S ####[facility] LABCLIA [id number] [address] STATES [facility] CLINICAL HISTORY Normal [facility] Comment on above: Order Comment: Speci men Type: TISSUE SPECIMENOrdering Facility: [facility] Address: [address] [place] [address] Result Comment: Pre- op diagnosis: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 There is no evidence of tunica media. Normal [facility] Comment on above: Order Comment: Speci men Type: TISSUE SPECIMENOrdering Facility: [facility] Address: [address] [place] [address] Performed By: #### S ####[facility] LABCLIA [id number] [address] STATES [place] FINAL DIAGNOSIS Normal [facility] Comment on above: Order Comment: Speci men Type: TISSUE SPECIMENOrdering Facility: [facility] Address: [address] [place] [address] Result Comment: A. C oronary artery (site not stated), endarterectomy:-Fibroatheromatous plaque. Performed By: #### S ####[facility] LABCLIA [id number] [place] [address] [place] FINAL PERFORMING LAB Normal [facility] Comment on above: Order Comment: Speci men Type: TISSUE SPECIMENOrdering Facility: [facility] Address: [address] [place] [address] Result Comment: Diag nostic interpretation performed at [facility], [address] [place] [address] CLIA# [id number] Director: Jonathan Pavon M.D. Performed By: #### S ####[facility] LABCLIA [id number] [address] [place] GROSS DESCRIPTION A. SOFT TISSUE Normal [facility] Comment on above: Order Comment: Speci men Type: TISSUE SPECIMENOrdering Facility: [facility] Address: [address] [place] [address] Result Comment: Rece ived fresh labeled endarterectomy is a kate-pham, irregular segment of soft probable plaque material. The specimen is entirely submitted intact in one cassette.Gross examination performed at [facility], [address] [place] [address] CLIA# [id number] 07/29/23 Performed By: #### S ####[facility]IA [id number] [place] [address] [place] THROMBOGRAPH HEPARINASE PANE [place] 07-29-2023 Clot angle after addition of heparinase TEG (Bld) [Angle] 65.5 degrees Normal 47.0-74.0 [facility] Comment on above: Order Comment: Speci men Type: BLOOD SPECIMENOrdering Facility: [facility] Address: [address] [place] [address] Performed By: #### T EGHPP ####[facility] [id number] [address] [place] Clot Lysis 30 Min post maximum clot amplitude TEG (Bld) [Length fraction] 0.0 % Normal 0.0-8.0 [facility] Comment on above: Order Comment: Speci men Type: BLOOD SPECIMENOrdering Facility: [facility] Address: [address] [place] [address] Performed By: #### T EGHPP ####[facility] [id number] [place] [address] [place] Clotting time after addition of heparinase TEG (Bld) 10.8 minutes High 4.0-10.0 [facility] Comment on above: Order Comment: Speci men Type: BLOOD SPECIMENOrdering Facility: [facility] Address: [address] [place] [address] Performed By: #### T EGHPP ####[facility] [id number] [place] [id number] [place] Coagulation index TEG Qn (Bld) -2.9 Normal -4.6-3.2 [facility] Comment on above: Order Comment: Speci men Type: BLOOD SPECIMENOrdering Facility: [facility] Address: [address] [place] [address] Result Comment: The Coagulation Index, a secondary parameter, is labeled by the manager business intelligence as for research use only and is used per the manager business intelligence's instructions. Its performance characteristics were determined by [facility]'s [facility] [place] in a manner consistent with CLIA requirements. This test has not been cleared by the U.S. Food and Drug Administration. Performed By: #### T EGHPP ####[facility] LABCLIA [id number] [place] [employer] [facility] [facility] [place] [address] [place] Maximum clot firmness after addition of heparinase TEG (Bld) [Length] 61.9 mm Normal 51.0-75.0 [facility] Comment on above: Order Comment: Specmarko stein Type: BLOOD SPECIMENOrdering Facility: [facility] Address: [address] [place] [address] Performed By: #### T EGHPP ####[facility] LABCLIA [id number] [facility] [address] [place] Thromboelastography after addtion of heparinase panel (Bld) Normal [facility] Comment on above: Order Comment: Phyllis stein Type: BLOOD SPECIMENOrdering Facility: [facility] Address: [address] [place] [address] Result Comment: A th romboelastograph (TEG) study [...] TEG results. Performed By: #### T EGHPP ####[facility] LABCLIA [id number] [place] [employer] [facility] [facility] [place] [address] [place] THROMBOGRAPH PANELon 024 Clot angle TEG (Bld) [Angle] 61.3 degrees Normal 47.0-74.0 [facility] Comment on above: Order Comment: Speci men Type: BLOOD SPECIMENOrdering Facility: [facility] Address: [address] [place] [address] Performed By: #### T EGPNP ####[facility]IA [id number] [address] [place] Clot Lysis 30 Min post maximum clot amplitude TEG (Bld) [Length fraction] 0.0 % Normal 0.0-8.0 [facility] Comment on above: Order Comment: Speci men Type: BLOOD SPECIMENOrdering Facility: [facility] Address: [address] [place] [address] Performed By: #### T EGPNP ####[facility] [id number] [place] [address] [place] Clotting time TEG (Bld) 6.8 minutes Normal 4.0-10.0 [facility] Comment on above: Order Comment: Speci men Type: BLOOD SPECIMENOrdering Facility: [facility] Address: [address] [place] [address] Performed By: #### T EGPNP ####[facility] [id number] [place] [address] [place] Coagulation index TEG Qn (Bld) -0.8 Normal -4.6-3.2 [facility] Comment on above: Order Comment: Speci men Type: BLOOD SPECIMENOrdering Facility: [facility] Address: [address] [place] [address] Result Comment: The Coagulation Index, a secondary parameter, is labeled by the manager business intelligence as for research use only and is used per the manager business intelligence's instructions. Its performance characteristics were determined by [facility]'s [facility] Pathology and [facility] [place] in a manner consistent with CLIA requirements. This test has not been cleared by the U.S. Food and Drug Administration. Performed By: #### T EGPNP ####[facility]IA [id number] [place] [address] [place] Maximum clot firmness TEG (Bld) [Length] 62.4 mm Normal 51.0-75.0 [facility] Comment on above: Order Comment: Phyllis stein Type: BLOOD SPECIMENOrdering Facility: [facility] Address: [address] [place] [address] Performed By: #### T EGPNP ####[facility] [id number] [address] [place] Thromboelastography after addtion of heparinase panel (Bld) Normal [facility] Comment on above: Order Comment: Phyllis stein Type: BLOOD SPECIMENOrdering Facility: [facility] Address: [address] [place] [address] Result Comment: A th romboelastograph (TEG) study [...] TEG results. Performed By: #### T EGPNP ####[facility]IA [id number] [place] [address] [place] XR CHEST 1V FRONTAL PORTon 0 07-29-2023 XR CHEST 1V FRONTAL PORT Normal [facility] aPTT PPPon 07-29-2023 aPTT Coag (PPP) [Time] 28.1 s Normal 23.0-32.4 [facility] Comment on above: Order Comment: Speci men Type: BLOOD SPECIMENOrdering Facility: [facility] Address: [address] [place] [address] Performed By: #### 3 255-7, 11225-1, 76066-5 ####[facility] LABCLIA [id number] [place] [address] [place] CNPNon 07-24-2023 CNPN Normal [facility] CNPTOUTREACHon 07-24-2023 CNPTOUTREACH Normal [facility] CBC W Auto Differential pane l (Bld)on 07-17-2023 Basophils (Bld) [#/Vol] 0.03 10*3/uL Normal <0.11 [facility] Comment on above: Order Comment: Speci men Type: BLOOD SPECIMENOrdering Facility: [facility] Address: [address] [place] [address] Performed By: #### 5 7021-8 ####[facility]CLIA [id number] [place] [address] [place] Basophils/100 WBC (Bld) 0.5 % Normal [facility] Comment on above: Order Comment: Speci men Type: BLOOD SPECIMENOrdering Facility: [facility] Address: [address] [place] [address] Performed By: #### 5 7021-8 ####[facility]CLIA [id number] [place] [address] [place] Differential cell count method Nom (Bld) Auto Normal [facility] Comment on above: Order Comment: Speci men Type: BLOOD SPECIMENOrdering Facility: [facility] Address: [address] [place] [address] Performed By: #### 5 7021-8 ####[facility] LABCLIA [id number] [place] [address] [place] Eosinophils (Bld) [#/Vol] 0.15 10*3/uL Normal <0.46 [facility] Comment on above: Order Comment: Speci men Type: BLOOD SPECIMENOrdering Facility: [facility] Address: [address] [place] [address] Performed By: #### 5 7021-8 ####[facility] LABCLIA [id number] [place] [address] [place] Eosinophils/100 WBC (Bld) 2.5 % Normal [facility] Comment on above: Order Comment: Speci men Type: BLOOD SPECIMENOrdering Facility: [facility] Address: [address] [place] [address] Performed By: #### 5 7021-8 ####[facility]CL[facility] [id number] [place] [address] [place] Erythrocyte distribution width (RBC) [Ratio] 12.2 % Normal 11.5-15.0 [facility] Comment on above: Order Comment: Speci men Type: BLOOD SPECIMENOrdering Facility: [facility] Address: [address] [place] [address] Performed By: #### 5 7021-8 ####[facility]CL[facility] [id number] [place] [address] [place] Hematocrit (Bld) [Volume fraction] 46.2 % High 36.0-46.0 [facility] Comment on above: Order Comment: Speci men Type: BLOOD SPECIMENOrdering Facility: [facility] Address: [address] [place] [address] Performed By: #### 5 7021-8 ####[facility]CL[facility] [id number] [place] [address] [place] Hemoglobin (Bld) [Mass/Vol] 14.9 g/dL Normal 11.5-15.5 [facility] Comment on above: Order Comment: Speci men Type: BLOOD SPECIMENOrdering Facility: [facility] Address: [address] [place] [address] Performed By: #### 5 7021-8 ####[facility]CL[facility] [id number] [place] [address] [place] Immature granulocytes (Bld) [#/Vol] 0.05 10*3/uL Normal <0.10 [facility] Comment on above: Order Comment: Speci men Type: BLOOD SPECIMENOrdering Facility: [facility] Address: [address] [place] [address] Performed By: #### 5 7021-8 ####[facility]CL[facility] [id number] [place] [address] [place] Immature granulocytes/100 WBC (Bld) 0.8 % Normal [facility] Comment on above: Order Comment: Speci men Type: BLOOD SPECIMENOrdering Facility: [facility] Address: [address] [place] [address] Performed By: #### 5 7021-8 ####[facility]CL[facility] [id number] [place] [address] [place] Lymphocytes (Bld) [#/Vol] 2.33 10*3/uL Normal 1.00-4.00 [facility] Comment on above: Order Comment: Speci men Type: BLOOD SPECIMENOrdering Facility: [facility] Address: [address] [place] [address] Performed By: #### 5 7021-8 ####[facility]CL[facility] [id number] [place] [address] [place] Lymphocytes/100 WBC (Bld) 39.0 % Normal [facility] Comment on above: Order Comment: Speci men Type: BLOOD SPECIMENOrdering Facility: [facility] Address: [address] [place] [address] Performed By: #### 5 7021-8 ####[facility]CL[facility] [id number] [place] [address] [place] MCH (RBC) [Entitic mass] 31.2 pg Normal 26.0-34.0 [facility] Comment on above: Order Comment: Speci men Type: BLOOD SPECIMENOrdering Facility: [facility] Address: [address] [place] [address] Performed By: #### 5 7021-8 ####[facility]CL[facility] [id number] [place] [address] [place] MCHC (RBC) [Mass/Vol] 32.3 g/dL Normal 30.5-36.0 [facility] Comment on above: Order Comment: Speci men Type: BLOOD SPECIMENOrdering Facility: [facility] Address: [address] [place] [address] Performed By: #### 5 7021-8 ####[facility] [id number] [place] [address] [place] MCV (RBC) [Entitic vol] 96.7 fL Normal 80.0-100.0 [facility] Comment on above: Order Comment: Speci men Type: BLOOD SPECIMENOrdering Facility: [facility] Address: [address] [place] [address] Performed By: #### 5 7021-8 ####[facility] [id number] [place] [address] [place] Monocytes (Bld) [#/Vol] 0.60 10*3/uL Normal <0.87 [facility] Comment on above: Order Comment: Speci men Type: BLOOD SPECIMENOrdering Facility: [facility] Address: [address] [place] [address] Performed By: #### 5 7021-8 ####[facility]CL[facility] [id number] [place] [address] [place] Monocytes/100 WBC (Bld) 10.1 % Normal [facility] Comment on above: Order Comment: Speci men Type: BLOOD SPECIMENOrdering Facility: [facility] Address: [address] [place] [address] Performed By: #### 5 7021-8 ####[facility] LABCLIA [id number] [place] [address] [place] Neutrophils (Bld) [#/Vol] 2.81 10*3/uL Normal 1.45-7.50 [facility] Comment on above: Order Comment: Speci men Type: BLOOD SPECIMENOrdering Facility: [facility] Address: [address] [place] [address] Performed By: #### 5 7021-8 ####[facility]CL[facility] [id number] [place] [address] [place] Neutrophils/100 WBC (Bld) 47.1 % Normal [facility] Comment on above: Order Comment: Speci men Type: BLOOD SPECIMENOrdering Facility: [facility] Address: [address] [place] [address] Performed By: #### 5 7021-8 ####[facility]CL[facility] [id number] [place] [address] [place] Nucleated RBC (Bld) [#/Vol] 10*3/uL Normal <0.01 [facility] Comment on above: Order Comment: Speci men Type: BLOOD SPECIMENOrdering Facility: [facility] Address: [address] [place] [address] Performed By: #### 5 7021-8 ####[facility]CL[facility] [id number] [place] [address] [place] Nucleated RBC/100 WBC (Bld) [Ratio] 0.0 /100 WBC Normal [facility] Comment on above: Order Comment: Speci men Type: BLOOD SPECIMENOrdering Facility: [facility] Address: [address] [place] [address] Performed By: #### 5 7021-8 ####[facility]CL[facility] [id number] [place] [address] [place] Platelet mean volume (Bld) [Entitic vol] 9.6 fL Normal 9.0-12.7 [facility] Comment on above: Order Comment: Speci men Type: BLOOD SPECIMENOrdering Facility: [facility] Address: [address] [place] [address] Performed By: #### 5 7021-8 ####[facility] [id number] [place] [address] [place] Platelets (Bld) [#/Vol] 239 10*3/uL Normal 150-400 [facility] Comment on above: Order Comment: Speci men Type: BLOOD SPECIMENOrdering Facility: [facility] Address: [address] [place] [address] Performed By: #### 5 7021-8 ####[facility] [id number] [place] [address] [place] RBC (Bld) [#/Vol] 4.78 10*6/uL Normal 3.90-5.20 [facility] Comment on above: Order Comment: Speci men Type: BLOOD SPECIMENOrdering Facility: [facility] Address: [address] [place] [address] Performed By: #### 5 7021-8 ####[facility] [id number] [place] [address] [place] WBC (Bld) [#/Vol] 5.97 10*3/uL Normal 3.70-11.00 [facility] Comment on above: Order Comment: Speci men Type: BLOOD SPECIMENOrdering Facility: [facility] Address: [address] [place] [address] Performed By: #### 5 7021-8 ####[facility] [id number] [place] [address] [place] CNCNPATEDon 07-17-2023 CNCNPATED Normal [facility] CNOVon 07-17-2023 CNOV Normal [facility] CONFIRM BLOOD TYPEon 024 ABO B Normal [facility] Comment on above: Order Comment: Speci men Type: BLOOD SPECIMENOrdering Facility: [facility] Address: [address] [place] [address] Performed By: #### C ONABO ####[facility] BANKCLIA [id number] [place] [address] [place] Rh Nom (Bld) Positive Normal [facility] Comment on above: Order Comment: Speci men Type: BLOOD SPECIMENOrdering Facility: [facility] Address: [address] [place] [address] Performed By: #### C ONABO ####[facility] BLOOD BANKCLIA [id number] [place] [address] [place] Comprehensive metabolic 2000 panelon 07-17-2023 Albumin [Mass/Vol] 4.1 g/dL Normal 3.9-4.9 [facility] Comment on above: Order Comment: Speci men Type: BLOOD SPECIMENOrdering Facility: [facility] Address: [address] [place] [address] Performed By: #### 2 532-0, 69096-5 ####[facility] [id number] [place] [address] [place] ALP [Catalytic activity/Vol] 86 U/L Normal 34-123 [facility] Comment on above: Order Comment: Speci men Type: BLOOD SPECIMENOrdering Facility: [facility] Address: [address] [place] [address] Performed By: #### 2 532-0, 22024-2 ####[facility] LABCL[facility] [id number] [place] [address] [place] [place] ALT [Catalytic activity/Vol] 11 U/L Normal 7-38 [facility] Comment on above: Order Comment: Speci men Type: BLOOD SPECIMENOrdering Facility: [facility] Address: [address] [place] [address] Performed By: #### 2 532-0, 98375-9 ####[facility] LABCLIA [id number] [place] [address] [place] Anion gap [Moles/Vol] 14 mmol/L Normal 9-18 [facility] Comment on above: Order Comment: Speci men Type: BLOOD SPECIMENOrdering Facility: [facility] Address: [address] [place] [address] Performed By: #### 2 532-0, 92433-4 ####[facility] LABCLIA [id number] [place] [address] [place] AST [Catalytic activity/Vol] 11 U/L Low 13-35 [facility] Comment on above: Order Comment: Speci men Type: BLOOD SPECIMENOrdering Facility: [facility] Address: [address] [place] [address] Performed By: #### 2 532-0, 78053-1 ####[facility] LABCLIA [id number] [place] [address] [place] Bilirubin [Mass/Vol] 0.2 mg/dL Normal 0.2-1.3 [facility] Comment on above: Order Comment: Speci men Type: BLOOD SPECIMENOrdering Facility: [facility] Address: [address] [place] [address] Performed By: #### 2 532-0, 12601-7 ####[facility] LABCLIA [id number] [place] [address] [place] Calcium [Mass/Vol] 9.9 mg/dL Normal 8.5-10.2 [facility] Comment on above: Order Comment: Speci men Type: BLOOD SPECIMENOrdering Facility: [facility] Address: [address] [place] [address] Performed By: #### 2 532-0, 89237-1 ####[facility] LABCLIA [id number] [place] [address] [place] Chloride [Moles/Vol] 102 mmol/L Normal 97-105 [facility] Comment on above: Order Comment: Speci men Type: BLOOD SPECIMENOrdering Facility: [facility] Address: [address] [place] [address] Performed By: #### 2 532-0, 48229-3 ####[facility] LABCLIA [id number] [place] [address] [place] CO2 [Moles/Vol] 23 mmol/L Normal 22-30 [facility] Comment on above: Order Comment: Speci men Type: BLOOD SPECIMENOrdering Facility: [facility] Address: [address] [place] [address] Performed By: #### 2 532-0, 95697-5 ####[facility] LABCLIA [id number] [place] [address] [place] Creatinine [Mass/Vol] 1.01 mg/dL High 0.58-0.96 [facility] Comment on above: Order Comment: Speci men Type: BLOOD SPECIMENOrdering Facility: [facility] Address: [address] [place] [address] Performed By: #### 2 532-0, 12377-5 ####[facility] LABIA [id number] [address] STATES OF [facility] Creatinine and Glomerular filtration rate.predicted panel (S/P/Bld) 62 mL/min/1.73m??? Normal >=60 [facility] Comment on above: Order Comment: Speci men Type: BLOOD SPECIMENOrdering Facility: [facility] Address: [address] [place] [address] Result Comment: Annelise mated Glomerular Filtration Rate [...] actual GFR. Performed By: #### 2 532-0, 01472-3 ####[facility] LABCLIA [id number] [place] [address] [place] Glucose [Mass/Vol] 140 mg/dL High 74-99 [facility] Comment on above: Order Comment: Speci men Type: BLOOD SPECIMENOrdering Facility: [facility] Address: [address] [place] [address] Result Comment: The [place] Diabetes Association (ADA) provides guidance for cutoff [...] Standards of Medical Care in Diabetes 2016, [place] [employer]. Diabetes Care. 2016.39(Suppl 1). Performed By: #### 2 532-0, 19189-6 ####[facility] LABIA [id number] [place] [address] [place] Potassium [Moles/Vol] 4.9 mmol/L Normal 3.7-5.1 [facility] Comment on above: Order Comment: Speci men Type: BLOOD SPECIMENOrdering Facility: [facility] Address: [address] [place] [address] Performed By: #### 2 532-0, 04779-0 ####[facility] LABIA [id number] [place] [address] [place] Protein [Mass/Vol] 6.0 g/dL Low 6.3-8.0 [facility] Comment on above: Order Comment: Speci men Type: BLOOD SPECIMENOrdering Facility: [facility] Address: [address] [place] [address] Performed By: #### 2 532-0, 63353-8 ####[facility] LABCLIA [id number] [place] [address] [place] Sodium [Moles/Vol] 139 mmol/L Normal 136-144 [facility] Comment on above: Order Comment: Speci men Type: BLOOD SPECIMENOrdering Facility: [facility] Address: [address] [place] [address] Performed By: #### 2 532-0, 76114-3 ####[facility] [id number] [place] [address] [place] Urea nitrogen [Mass/Vol] 21 mg/dL Normal 7-21 [facility] Comment on above: Order Comment: Sybili men Type: BLOOD SPECIMENOrdering Facility: [facility] Address: [address] [place] [address] Performed By: #### 2 532-0, 73307-2 ####[facility] [id number] [place] [address] [place] HbA1c (Bld)on 07-17-2023 Average glucose Estimated from glycated hemoglobin (Bld) [Mass/Vol] 148 mg/dL Normal [facility] Comment on above: Order Comment: Sybili men Type: BLOOD SPECIMENOrdering Facility: [facility] Address: [address] [place] [address] Result Comment: eAG: (Estimated average glucose) is a calculated value from HgbA1c and is truck sales representative of the average blood glucose level in the last 2-3 month period. Performed By: #### 5 5454-3 ####[facility] [id number] [place] [address] [place] HbA1c (Bld) [Mass fraction] 6.8 % High 4.3-5.6 [facility] Comment on above: Order Comment: Sybili men Type: BLOOD SPECIMENOrdering Facility: [facility] Address: [address] [place] [address] Result Comment: Amer [place] Diabetes Association guidelines indicate that patients with HgbA1c in the range 5.7-6.4% are at increased risk for development of diabetes, and intervention by lifestyle modification may be beneficial. HgbA1c greater or equal to 6.5% is considered diagnostic of diabetes. Performed By: #### 5 5454-3 ####[facility] LABCLIA [id number] [place] [address] [place] LDH SerPl-cCncon 07-17-2023 LDH [Catalytic activity/Vol] 146 U/L Normal 135-214 [facility] Comment on above: Order Comment: Specmarko men Type: BLOOD SPECIMENOrdering Facility: [facility] Address: [address] [place] [address] Performed By: #### 2 532-0, 17446-6 ####[facility] LABCLIA [id number] [place] [address] [place] PT panel Coag (PPP)on 2023 INR Coag (PPP) [Relative time] 1.1 {INR} Normal 0.9-1.3 [facility] Comment on above: Order Comment: Phyllis stein Type: BLOOD SPECIMENOrdering Facility: [facility] Address: [address] [place] [address] Result Comment: Suzanne min K Antagonist (VKA) Therapeutic Range: INR 2 to 3 (Target INR of 2.5)Note: For patients treated with VKA drugs, such as warfarin, the [place] [employer] 2012 Guideline recommends [...] al. Chest 2012, 141:7S-47SNishausten RA, et al. [facility] 2017, 70: 252-289 Performed By: #### 3 4528-0, 33097-6 ####[facility] LABCLIA [id number] [place] [address] [place] PT Coag (PPP) [Time] 11.2 s Normal 9.7-13.0 [facility] Comment on above: Order Comment: Speci men Type: BLOOD SPECIMENOrdering Facility: [facility] Address: [address] [place] [address] Performed By: #### 3 4528-0, 22836-7 ####[facility] LABCLIA [id number] [place] [address] [place] [facility] [place] STAPH AUREUS PCRon S. aureus and MRSA panel WALKER+probe (Nose) Normal Negative [facility] Comment on above: Order Comment: Speci men Type: SWAB OF INTERNAL NOSEOrdering Facility: [facility] Address: [address] [place] [address] Result Comment: Nega tive for Staphylococcus aureus by PCR.Negative for MRSA by PCR Performed By: #### S APCR ####[facility] LABCLIA [id number] [address] [place] TYPE AND SCREEN,30 DAYon ABO B Normal [facility] Comment on above: Order Comment: Speci men Type: BLOOD SPECIMENOrdering Facility: [facility] Address: [address] [place] [address] Performed By: #### T SCR30 ####[facility] BLOOD BANKCLIA [id number] [place] [address] [place] HISTORICAL AB SCR STATUS Negative Normal [facility] Comment on above: Order Comment: Speci men Type: BLOOD SPECIMENOrdering Facility: [facility] Address: [address] [place] [address] Performed By: #### T SCR30 ####[facility] BLOOD BANKCLIA [id number] [place] [address] [place] Rh Nom (Bld) Positive Normal [facility] Comment on above: Order Comment: Speci men Type: BLOOD SPECIMENOrdering Facility: [facility] Address: [address] [place] [address] Performed By: #### T SCR30 ####[facility] BLOOD [facility] [id number] [place] [address] [place] URINALYSIS, DIPSTICK ONLYon 07-17-2023 Bilirubin Ql (U) Negative Normal Negative [facility] Comment on above: Order Comment: Speci men Type: URINE SPECIMENOrdering Facility: [facility] Address: [address] [place] [address] Performed By: #### U A ####[facility] LABCLIA [id number] [place] [address] [place] Clarity (Unsp spec) Clear Normal Clear [facility] Comment on above: Order Comment: Speci men Type: URINE SPECIMENOrdering Facility: [facility] Address: [address] [place] [address] Performed By: #### U A ####[facility] LABIA [id number] [place] [address] [place] Color (U) Yellow Normal Yellow [facility] Comment on above: Order Comment: Speci men Type: URINE SPECIMENOrdering Facility: [facility] Address: [address] [place] [address] Performed By: #### U A ####[facility] LABCLIA [id number] [place] [address] [place] Glucose Test strip (U) [Mass/Vol] 3+ Abnormal Negative [facility] Comment on above: Order Comment: Speci men Type: URINE SPECIMENOrdering Facility: [facility] Address: [address] [place] [address] Performed By: #### U A ####[facility] LABCLIA [id number] [place] [address] [place] Hemoglobin Ql (U) Negative Normal Negative [facility] Comment on above: Order Comment: Speci men Type: URINE SPECIMENOrdering Facility: [facility] Address: [address] [place] [address] Performed By: #### U A ####[facility] LABCLIA [id number] [place] [address] [place] Ketones Ql (U) Negative Normal Negative [facility] Comment on above: Order Comment: Speci men Type: URINE SPECIMENOrdering Facility: [facility] Address: [address] [place] [address] Performed By: #### U A ####[facility] LABCLIA [id number] [place] [address] [place] Leukocyte esterase Test strip Ql (U) Negative Normal Negative [facility] Comment on above: Order Comment: Speci men Type: URINE SPECIMENOrdering Facility: [facility] Address: [address] [place] [address] Performed By: #### U A ####[facility] LABCLIA [id number] [place] [address] [place] Nitrite Ql (U) Negative Normal Negative [facility] Comment on above: Order Comment: Speci men Type: URINE SPECIMENOrdering Facility: [facility] Address: [address] [place] [address] Performed By: #### U A ####[facility] LABCLIA [id number] [place] [address] [place] pH (U) 6.0 [pH] Normal <8.5 [facility] Comment on above: Order Comment: Speci men Type: URINE SPECIMENOrdering Facility: [facility] Address: [address] [place] [address] Performed By: #### U A ####[facility] LABCLIA [id number] [place] [address] [place] Protein (U) [Mass/Vol] Negative Normal Negative Cl [facility] Comment on above: Order Comment: Speci men Type: URINE SPECIMENOrdering Facility: [facility] Address: [address] [place] [address] Performed By: #### U A ####[facility] LABIA [id number] [place] [address] [place] Specific gravity (U) [Rel density] 1.026 Normal 1.005-1.030 [facility] Comment on above: Order Comment: Speci men Type: URINE SPECIMENOrdering Facility: [facility] Address: [address] [place] [address] Performed By: #### U A ####[facility] [id number] [place] [address] [place] Urobilinogen Ql (U) 1.0 EU/dL Normal 0.2-1.0 EU/dL [facility] Comment on above: Order Comment: Speci men Type: URINE SPECIMENOrdering Facility: [facility] Address: [address] [place] [address] Performed By: #### U A ####[facility] [id number] [place] [address] [place] aPTT PPPon 07-17-2023 aPTT Coag (PPP) [Time] 31.3 s Normal 23.0-32.4 [facility] Comment on above: Order Comment: Speci men Type: BLOOD SPECIMENOrdering Facility: [facility] Address: [address] [place] [address] Performed By: #### 3 4528-0, 52702-4 ####[facility] LABIA [id number] [place] [address] [place] CNPNon 07-11-2023 CNPN Normal [facility] CNOVon 07-02-2023 CNOV Normal [facility] CNOV Normal [facility] CNOV Normal [facility] CTA ABD/PEL/LOWER EXT WO/W I VCONon 07-02-2023 CTA ABD/PEL/LOWER EXT WO/W IVCON Normal [facility] CTA CHEST (NONGATED) W IVCON on 07-02-2023 CTA CHEST (NONGATED) W IVCON Normal [facility] ECG COMPLETEon 07-02-2023 ECG COMPLETE Normal [facility] CNPTOUTREACHon 06-27-2023 CNPTOUTREACH Normal [facility] CNPNon 06-26-2023 CNPN Normal [facility] CNPTOUTREACHon 06-21-2023 CNPTOUTREACH Normal [facility] CNOVon 06-14-2023 CNOV Normal [facility] CT CHEST CARDIAC WO IVCONon 06-14-2023 CT CHEST CARDIAC WO IVCON Invalid Interpretation Code [facility] PVR LEG LOVE VAS LABon 2022 PVR LEG LOVE VAS LAB Normal [facility] US CAROTID ARTERIES LOVE VAS LABon 06-14-2023 US CAROTID ARTERIES LOVE VAS LAB Normal [facility] US LEG VEIN MAP LOVE VAS LABo n 06-14-2023 US LEG VEIN MAP LOVE VAS LAB Normal [facility] US MAMMARY ARTERY LOVE VAS LA Bon 06-14-2023 US MAMMARY ARTERY LOVE VAS LAB Normal [facility] US RADIAL ARTERY MAP LOVE VAS LABon 06-14-2023 US RADIAL ARTERY MAP LOVE VAS LAB Normal [facility] Reminderson 06-10-2023 Reminders - From: Celia Donohue LPN To: GSN - Clinical; Sent: 06/10/2023 15:55:47 EST Show up: 04/10/2025 07:00:00 EDT Subject: colonoscopy recall Due Date/Time: 05/11/2025 07:00:00 EST Reminder/Recall Patient due for surveillance colonoscopy 05/11/2025. Normal [facility] CNPNon 05-30-2023 CNPN Normal [facility] Comprehensive metabolic 2000 panelon 05-29-2023 Albumin [Mass/Vol] 4.2 g/dL 3.9 - 4.9 g/dL [facility] ALP [Catalytic activity/Vol] 78 U/L 34 - 123 U/L [facility] ALT [Catalytic activity/Vol] 17 U/L 7 - 38 U/L [facility] Anion gap [Moles/Vol] 15 mmol/L 9 - 18 mmol/L [facility] AST [Catalytic activity/Vol] 16 U/L 13 - 35 U/L [facility] Bilirubin [Mass/Vol] 0.2 mg/dL 0.2 - 1 .3 mg/dL [facility] Calcium [Mass/Vol] 10.5 mg/dL High 8.5 - 10. 2 mg/dL [facility] Chloride [Moles/Vol] 100 mmol/L 97 - 10 5 mmol/L [facility] CO2 [Moles/Vol] 21 mmol/L Low 22 - 30 mmol/L [facility] Creatinine [Mass/Vol] 0.82 mg/dL 0.58 - 0.96 mg/dL [facility] Estimated Glomerular Filtration Rate 79 mL/min/1.73m >=60 mL/min/1.73m [facility] Glucose [Mass/Vol] 216 mg/dL High 74 - 99 mg/dL [facility] Potassium [Moles/Vol] 4.8 mmol/L 3.7 - 5.1 mmol/L [facility] Protein [Mass/Vol] 6.7 g/dL 6.3 - 8.0 g/dL [facility] Sodium [Moles/Vol] 136 mmol/L 136 - 144 mmol/L [facility] Urea nitrogen [Mass/Vol] 22 mg/dL High 7 - 21 mg/dL [facility] LIPID PANEL, NONFASTINGon Cholesterol [Mass/Vol] 220 mg/dL High <200 mg/dL [facility] HDL Cholesterol, Nonfasting 35 mg/dL Low >39 mg/dL [facility] LDL Cholesterol, Nonfasting [facility] LDL/HDL Ratio, Nonfasting [facility] Non HDL Cholesterol, Nonfasting 185 mg/dL High <130 mg/dL [facility] Total Chol/HDL Ratio, Nonfasting 6.29 mg/dL High <5.10 mg/dL [facility] Triglycerides, Nonfasting 414 mg/dL High <150 mg/dL [facility] VLDL Cholesterol, Nonfasting [facility] CBC panel Auto (Bld)on 05-28 Erythrocyte distribution width (RBC) [Ratio] 13.5 % 11.5 - 15.0 % [facility] Hematocrit (Bld) [Volume fraction] 47.6 % High 36.0 - 46.0 % [facility] Hemoglobin (Bld) [Mass/Vol] 15.6 g/dL High 11.5 - 15.5 g/dL [facility] MCH (RBC) [Entitic mass] 31.1 pg 26.0 - 34.0 pg [facility] MCHC (RBC) [Mass/Vol] 32.8 g/dL 30.5 - 36.0 g/dL [facility] MCV (RBC) [Entitic vol] 94.8 fL 80.0 - 100.0 fL [facility] Nucleated RBC (Bld) [#/Vol] <0.01 k/uL [facility] Platelet mean volume (Bld) [Entitic vol] 9.9 fL 9.0 - 12.7 fL [facility] Platelets (Bld) [#/Vol] 295 10*3/uL 150 - 400 k/uL [facility] RBC (Bld) [#/Vol] 5.02 10*6/uL 3.90 - 5.2 0 m/uL [facility] WBC (Bld) [#/Vol] 8.12 10*3/uL 3.70 - 11. 00 k/uL [facility] Erythrocyte distribution width (RBC) [Ratio] 13.5 % Normal 11.5-15.0 [facility] Comment on above: Order Comment: Speci men Type: BLOOD SPECIMENOrdering Facility: [facility] Address: [address] [place] [address] Performed By: #### 5 8410-2 ####[facility] LABCLIA [id number] [place] [address] [place] Hematocrit (Bld) [Volume fraction] 47.6 % High 36.0-46.0 [facility] Comment on above: Order Comment: Speci men Type: BLOOD SPECIMENOrdering Facility: [facility] Address: [address] [place] [address] Performed By: #### 5 8410-2 ####[facility] LABCLIA [id number] [place] [address] [place] Hemoglobin (Bld) [Mass/Vol] 15.6 g/dL High 11.5-15.5 [facility] Comment on above: Order Comment: Speci men Type: BLOOD SPECIMENOrdering Facility: [facility] Address: [address] [place] [address] Performed By: #### 5 8410-2 ####[facility] LABCLIA [id number] [place] [address] [place] MCH (RBC) [Entitic mass] 31.1 pg Normal 26.0-34.0 [facility] Comment on above: Order Comment: Speci men Type: BLOOD SPECIMENOrdering Facility: [facility] Address: [address] [place] [address] Performed By: #### 5 8410-2 ####[facility] LABCLIA [id number] [place] [address] [place] MCHC (RBC) [Mass/Vol] 32.8 g/dL Normal 30.5-36.0 [facility] Comment on above: Order Comment: Speci men Type: BLOOD SPECIMENOrdering Facility: [facility] Address: [address] [place] [address] Performed By: #### 5 8410-2 ####[facility] LABIA [id number] [place] [address] [place] MCV (RBC) [Entitic vol] 94.8 fL Normal 80.0-100.0 [facility] Comment on above: Order Comment: Speci men Type: BLOOD SPECIMENOrdering Facility: [facility] Address: [address] [place] [address] Performed By: #### 5 8410-2 ####[facility] LABCLIA [id number] [place] [address] [place] Nucleated RBC (Bld) [#/Vol] 10*3/uL Normal <0.01 [facility] Comment on above: Order Comment: Speci men Type: BLOOD SPECIMENOrdering Facility: [facility] Address: [address] [place] [address] Performed By: #### 5 8410-2 ####[facility] LABIA [id number] [place] [address] [place] Platelet mean volume (Bld) [Entitic vol] 9.9 fL Normal 9.0-12.7 [facility] Comment on above: Order Comment: Speci men Type: BLOOD SPECIMENOrdering Facility: [facility] Address: [address] [place] [address] Performed By: #### 5 8410-2 ####[facility] LABIA [id number] [place] [address] [place] Platelets (Bld) [#/Vol] 295 10*3/uL Normal 150-400 [facility] Comment on above: Order Comment: Speci men Type: BLOOD SPECIMENOrdering Facility: [facility] Address: [address] [place] [address] Performed By: #### 5 8410-2 ####[facility] LABIA [id number] [place] [address] [place] RBC (Bld) [#/Vol] 5.02 10*6/uL Normal 3.90-5.20 [facility] Comment on above: Order Comment: Speci men Type: BLOOD SPECIMENOrdering Facility: [facility] Address: [address] [place] [address] Performed By: #### 5 8410-2 ####[facility] LABIA [id number] [place] [address] [place] WBC (Bld) [#/Vol] 8.12 10*3/uL Normal 3.70-11.00 [facility] Comment on above: Order Comment: Speci men Type: BLOOD SPECIMENOrdering Facility: [facility] Address: [address] [place] [address] Performed By: #### 5 8410-2 ####[facility] LABCLIA [id number] [address] [address] [place] CNOVon 05-28-2023 CNOV Normal [facility] Comprehensive metabolic 2000 panelon 05-28-2023 Albumin [Mass/Vol] 4.2 g/dL Normal 3.9-4.9 [facility] Comment on above: Order Comment: Speci men Type: BLOOD SPECIMENOrdering Facility: [facility] Address: [address] [place] [address] Performed By: #### 3 3762-6, 27657-6, LIPNF ####[facility] LABIA [id number] [place] [address] [place] ALP [Catalytic activity/Vol] 78 U/L Normal 34-123 [facility] Comment on above: Order Comment: Speci men Type: BLOOD SPECIMENOrdering Facility: [facility] Address: [address] [place] [address] Performed By: #### 3 3762-6, 90471-5, LIPNF ####[facility] LABIA [id number] [place] [address] [place] ALT [Catalytic activity/Vol] 17 U/L Normal 7-38 [facility] Comment on above: Order Comment: Speci men Type: BLOOD SPECIMENOrdering Facility: [facility] Address: [address] [place] [address] Performed By: #### 3 3762-6, 61228-1, LIPNF ####[facility] LABIA [id number] [place] [id number] [place] Anion gap [Moles/Vol] 15 mmol/L Normal 9-18 [facility] Comment on above: Order Comment: Speci men Type: BLOOD SPECIMENOrdering Facility: [facility] Address: [address] [place] [address] Performed By: #### 3 3762-, 77165-1, LIPNF ####[facility] LABCLIA [id number] [place] [address] [place] AST [Catalytic activity/Vol] 16 U/L Normal 13-35 [facility] Comment on above: Order Comment: Speci men Type: BLOOD SPECIMENOrdering Facility: [facility] Address: [address] [place] [address] Performed By: #### 3 376-6, , LIPNF ####[facility] LABCLIA [id number] [place] [address] [place] Bilirubin [Mass/Vol] 0.2 mg/dL Normal 0.2-1.3 [facility] Comment on above: Order Comment: Speci men Type: BLOOD SPECIMENOrdering Facility: [facility] Address: [address] [place] [address] Performed By: #### 3 376-6, , LIPNF ####[facility] LABIA [id number] [place] [address] [place] Calcium [Mass/Vol] 10.5 mg/dL High 8.5-10.2 [facility] Comment on above: Order Comment: Speci men Type: BLOOD SPECIMENOrdering Facility: [facility] Address: [address] [place] [address] Performed By: #### 3 376-6, , LIPNF ####[facility] LABIA [id number] [place] [address] [place] Chloride [Moles/Vol] 100 mmol/L Normal 97-105 [facility] Comment on above: Order Comment: Speci men Type: BLOOD SPECIMENOrdering Facility: [facility] Address: [address] [place] [address] Performed By: #### 3 3762-6, , LIPNF ####[facility] LABIA [id number] [place] [address] [place] CO2 [Moles/Vol] 21 mmol/L Low 22-30 [facility] Comment on above: Order Comment: Speci men Type: BLOOD SPECIMENOrdering Facility: [facility] Address: [address] [place] [address] Performed By: #### 3 3762-6, 52436-0, LIPNF ####[facility] LABCLIA [id number] [place] [address] [place] Creatinine [Mass/Vol] 0.82 mg/dL Normal 0.58-0.96 [facility] Comment on above: Order Comment: Speci men Type: BLOOD SPECIMENOrdering Facility: [facility] Address: [address] [place] [address] Performed By: #### 3 3762-6, 25286-5, LIPNF ####[facility] LABCLIA [id number] [place] [address] [place] Creatinine and Glomerular filtration rate.predicted panel (S/P/Bld) 79 mL/min/1.73m??? Normal >=60 [facility] Comment on above: Order Comment: Speci men Type: BLOOD SPECIMENOrdering Facility: [facility] Address: [address] [place] [address] Result Comment: Annelise mated Glomerular Filtration Rate [...] actual GFR. Performed By: #### 3 3762-6, 94504-5, LIPNF ####[facility] LABCLIA [id number] [place] [address] [place] Glucose [Mass/Vol] 216 mg/dL High 74-99 [facility] Comment on above: Order Comment: Speci men Type: BLOOD SPECIMENOrdering Facility: [facility] Address: [address] [place] [address] Result Comment: The [place] Diabetes Association (ADA) provides guidance for cutoff [...] Standards of Medical Care in Diabetes 2016, [place] [employer]. Diabetes Care. 2016.39(Suppl 1). Performed By: #### 3 3762-6, 42036-8, LIPNF ####[facility] LABCLIA [id number] [place] [address] [place] Potassium [Moles/Vol] 4.8 mmol/L Normal 3.7-5.1 [facility] Comment on above: Order Comment: Speci men Type: BLOOD SPECIMENOrdering Facility: [facility] Address: [address] [place] [address] Performed By: #### 3 3762-6, 49785-0, LIPNF ####[facility] LABCLIA [id number] [place] [address] [place] Protein [Mass/Vol] 6.7 g/dL Normal 6.3-8.0 [facility] Comment on above: Order Comment: Speci men Type: BLOOD SPECIMENOrdering Facility: [facility] Address: [address] [place] [address] Performed By: #### 3 3762-6, 70586-6, LIPNF ####[facility] LABCLIA [id number] [place] [address] [place] Sodium [Moles/Vol] 136 mmol/L Normal 136-144 [facility] Comment on above: Order Comment: Speci men Type: BLOOD SPECIMENOrdering Facility: [facility] Address: [address] [place] [address] Performed By: #### 3 3762-6, , LIPNF ####[facility] LABCLIA [id number] [place] [address] [place] Urea nitrogen [Mass/Vol] 22 mg/dL High 7- [facility] Comment on above: Order Comment: Speci men Type: BLOOD SPECIMENOrdering Facility: [facility] Address: [address] [place] [address] Performed By: #### 3 3762-6, , LIPNF ####[facility] LABCLIA [id number] [place] [address] [place] LIPID PANEL, NONFASTINGon Cholesterol [Mass/Vol] 220 mg/dL High <200 [facility] Comment on above: Order Comment: Speci men Type: BLOOD SPECIMENOrdering Facility: [facility] Address: [address] [place] [address] Result Comment: <200 mg/dL, Desirable 200-239 mg/dL, Borderline high>239 mg/dL, High Performed By: #### 3 376-6, , LIPNF ####[facility] LABCLIA [id number] [place] [address] [place] HDL CHOLESTEROL, NF 35 mg/dL Low >39 [facility] Comment on above: Order Comment: Speci men Type: BLOOD SPECIMENOrdering Facility: [facility] Address: [address] [place] [address] Result Comment: 40-5 9 mg/dL, Acceptable>59 mg/dL, High: Negative risk factor for coronary heart disease<40 mg/dL, Low: Positive risk factor for coronary heart disease Performed By: #### 3 3762-6, 89457-8, LIPNF ####[facility] LABCLIA [id number] [place] [address] [place] LDL CHOLESTEROL, NF Normal [facility] Comment on above: Order Comment: Speci sarita Type: BLOOD SPECIMENOrdering Facility: [facility] Address: [address] [place] [address] Result Comment: Unab le to calculate due to increased Triglycerides. A Direct LDL Cholesterol measurement will not be performed. If clinically indicated, a fasting Basic Lipid Panel (LIPB) may be ordered. Performed By: #### 3 3762-6, 90598-0, LIPNF ####[facility] LABCLIA [id number] [address] STATES OF [facility] LDL/HDL RATIO, NF Normal [facility] Comment on above: Order Comment: Sybili sarita Type: BLOOD SPECIMENOrdering Facility: [facility] Address: [address] [place] [address] Result Comment: Unab le to calculate due to elevated Triglycerides.Reference:1. National Cholesterol Education Program ATP III Guideline At-A-Glance Quick Desk Reference: National Heart, Lung, and Blood Cliff. National Institutes of Health. 2001: NIH Publication No. 01-3305.2. An International Atherosclerosis Society position paper: global recommendations for the management of dyslipidemia: executive summary, Atherosclerosis. 2014: 232(2):410-413. Performed By: #### 3 3762-6, 03699-1, LIPNF ####[facility] LABCLIA [id number] [address] [place] NON HDL CHOL, NF 185 mg/dL High <130 [facility] Comment on above: Order Comment: Phyllis stein Type: BLOOD SPECIMENOrdering Facility: [facility] Address: [address] [place] [address] Result Comment: <130 mg/dL, Optimal 130-159 mg/dL, Near optimal/above optimal 160-189 mg/dL, Borderline high 190-219 mg/dL, High>219 mg/dL, Very highSecondary prevention optimal non HDL Cholesterol levels are recommended to be <100 mg/dL Performed By: #### 3 3762-6, 84195-5, LIPNF ####[facility] LABCLIA [id number] [place] [address] [place] T CHOL/HDL RATIO NF 6.29 mg/dL High <5.10 [facility] Comment on above: Order Comment: Speci men Type: BLOOD SPECIMENOrdering Facility: [facility] Address: [address] [place] [address] Performed By: #### 3 3762-6, 62739-5, LIPNF ####[facility] LABCLIA [id number] [place] [address] [place] TRIGLYCERIDES, NF 414 mg/dL High <[address] [facility] Comment on above: Order Comment: Speci men Type: BLOOD SPECIMENOrdering Facility: [facility] Address: [address] [place] [address] Result Comment: <150 mg/dL, Normal 150-199 mg/dL, Borderline high 200-499 mg/dL, High>499 mg/dL, Very high Performed By: #### 3 3762-6, 03992-6, LIPNF ####[facility] LABIA [id number] [place] [address] [place] VLDL CHOLESTEROL, NF Normal [facility] Comment on above: Order Comment: Speci men Type: BLOOD SPECIMENOrdering Facility: [facility] Address: [address] [place] [address] Result Comment: Unab le to calculate due to elevated Triglycerides. Performed By: #### 3 3762-6, 21683-9, LIPNF ####[facility] LABCLIA [id number] [place] [address] [place] NT PRO BNPon 05-28-2023 Natriuretic peptide.B prohormone N-Terminal [Mass/Vol] 200 pg/mL High <125 pg/mL [facility] NT-proBNP SerPl-mCncon 05-28 Natriuretic peptide.B prohormone N-Terminal [Mass/Vol] 200 pg/mL High <125 [facility] Comment on above: Order Comment: Speci men Type: BLOOD SPECIMENOrdering Facility: [facility] Address: [address] [place] [address] Performed By: #### 3 3762-6, 44329-1, LIPUGO ####[facility] LABCLIA [id number] [place] [address] [place] CNPNon 05-08-2023 CNPN Normal [facility] CNPNon 05-02-2023 CNPN Normal [facility] CBC panel Auto (Bld)on 04-03 Erythrocyte distribution width (RBC) [Ratio] 13.0 % 11.5 - 15.0 % [facility] Hematocrit (Bld) [Volume fraction] 53.9 % High 36.0 - 46.0 % [facility] Hemoglobin (Bld) [Mass/Vol] 18.6 g/dL High 11.5 - 15.5 g/dL [facility] MCH (RBC) [Entitic mass] 29.8 pg 26.0 - 34.0 pg [facility] MCHC (RBC) [Mass/Vol] 34.5 g/dL 30.5 - 36.0 g/dL [facility] MCV (RBC) [Entitic vol] 86.2 fL 80.0 - 100.0 fL [facility] Nucleated RBC (Bld) [#/Vol] <0.01 k/uL [facility] Platelet mean volume (Bld) [Entitic vol] 9.6 fL 9.0 - 12.7 fL [facility] Platelets (Bld) [#/Vol] 269 10*3/uL 150 - 400 k/uL [facility] RBC (Bld) [#/Vol] 6.25 10*6/uL High 3.90 - 5.2 0 m/uL [facility] WBC (Bld) [#/Vol] 10.50 10*3/uL 3.70 - 11 .00 k/uL [facility] Comprehensive metabolic 2000 panelon 04-03-2023 Albumin [Mass/Vol] 4.6 g/dL 3.9 - 4.9 g/dL [facility] ALP [Catalytic activity/Vol] 82 U/L 34 - 123 U/L [facility] ALT [Catalytic activity/Vol] 15 U/L 7 - 38 U/L [facility] Anion gap [Moles/Vol] 19 mmol/L High 9 - 18 mmol/L [facility] AST [Catalytic activity/Vol] 14 U/L 13 - 35 U/L [facility] Bilirubin [Mass/Vol] 0.9 mg/dL 0.2 - 1 .3 mg/dL [facility] Calcium [Mass/Vol] 10.5 mg/dL High 8.5 - 10. 2 mg/dL [facility] Chloride [Moles/Vol] 94 mmol/L Low 97 - 10 5 mmol/L [facility] CO2 [Moles/Vol] 18 mmol/L Low 22 - 30 mmol/L [facility] Creatinine [Mass/Vol] 0.81 mg/dL 0.58 - 0.96 mg/dL [facility] Estimated Glomerular Filtration Rate 81 mL/min/1.73m >=60 mL/min/1.73m [facility] Glucose [Mass/Vol] 241 mg/dL High 74 - 99 mg/dL [facility] Potassium [Moles/Vol] 4.2 mmol/L 3.7 - 5.1 mmol/L [facility] Protein [Mass/Vol] 7.5 g/dL 6.3 - 8.0 g/dL [facility] Sodium [Moles/Vol] 131 mmol/L Low 136 - 144 mmol/L [facility] Urea nitrogen [Mass/Vol] 20 mg/dL 7 - 21 mg/dL [facility] HbA1c (Bld)on 04-03-2023 Average glucose Estimated from glycated hemoglobin (Bld) [Mass/Vol] 163 mg/dL [facility] HbA1c (Bld) [Mass fraction] 7.3 % High 4.3 - 5.6 % [facility] PT panel Coag (PPP)on 2022 INR Coag (PPP) [Relative time] 1.1 {INR} 0.9 - 1.3 [facility] PT Coag (PPP) [Time] 11.4 s 9.7 - 1 3.0 sec [facility] Activated partial thrombopla stin time (aPTT) in platelet poor plasma by coagulation aOrdered By: Patrizia Melendrez on 03-20-2023 aPTT Coag (PPP) [Time] 28.8 s 25.1-36.5 [facility] Comment on above: A hematocrit value g reater than 55% may lead to inaccurate results in coagulation testing. Patients having hematocrit values >55% require a special collection tube for coagulation studies. Please contact the laboratory at [phone] for redraw instructions. Basophils Auto (Bld) [#/Vol] Ordered By: Patrizia Melendrez on 03-20-2023 Basophils (Bld) [#/Vol] 0.0 10*3/uL 0.0-0.2 [facility] Basophils/100 WBC Auto (Bld) Ordered By: Patrizia Melendrez on 03-20-2023 Basophils/100 WBC (Bld) 0.4 % . [facility] Blood Urea Nitrogenon 2022 Urea nitrogen [Mass/Vol] 21 mg/dL Normal 7-25 [facility] Comment on above: Performed By: #### B UN, CBC, CREAT, PP, LYTES, LIPID #### [facility] [address] Carbon dioxide, total [Moles /volume] in Serum or PlasmaOrdered By: Patrizia Melendrez on 03-20-2023 CO2 [Moles/Vol] 28.8 mmol/L 21.0-31.0 [facility] Chloride [Moles/volume] in S radha or PlasmaOrdered By: Patrizia Melendrez on 03-20-2023 Chloride [Moles/Vol] 105 mmol/L 98-107 [facility] Cholesterol [Mass/volume] in Serum or PlasmaOrdered By: Patrizia Melendrez on 03-20-2023 Cholesterol [Mass/Vol] 270 mg/dL 140-200 [facility] Comment on above: Chol less than 200 m g/dl low riskChol 201-239 mg/dl borderline riskChol 240 mg/dl and greater high risk Cholesterol in LDL Calc [Mas s/Vol]Ordered By: Patrizia Melendrez on 03-20-2023 Cholesterol in LDL [Mass/Vol] 170 mg/dL 0-100 [facility] Comment on above: LDL ATP III CLASSIFI CATIONLDL less than 100 mg/dL OptimalLDL 100-129 mg/dL Near or above optimalLDL 130-159 mg/dL Borderline highLDL 160-189 mg/dL HighLDL greater than 189 mg/dL Very high Cholesterol in VLDL Calc [Ma ss/Vol]Ordered By: Patrizia Melendrez on 03-20-2023 Cholesterol in VLDL [Mass/Vol] 55 mg/dL [facility] Coagulation Profileon 2022 aPTT Coag (Bld) [Time] 28.8 s Normal 25.1-36.5 [facility] Comment on above: Result Comment: A he matocrit value greater than 55% may lead to inaccurate results in coagulation testing. Patients having hematocrit values >55% require a special collection tube for coagulation studies. Please contact the laboratory at [phone] for redraw instructions. PERFORMED BY: [place] [address] PATHOLOGIST TRANSONIC ENGINEER KEVYN DAVIDSON M.D. Performed By: #### B UN, CBC, CREAT, PP, LYTES, LIPID #### [address] INR Coag (PPP) [Relative time] 0.9 {INR} Normal [facility] Comment on above: Result Comment: INR [...] UN, CBC, CREAT, PP, LYTES, LIPID #### [address] PT Coag (PPP) [Time] 11.2 s Normal 9.0-12.9 [facility] Comment on above: Result Comment: A he matocrit value greater than 55% may lead to inaccurate results in coagulation testing. Patients having hematocrit values >55% require a special collection tube for coagulation studies. Please contact the laboratory at [phone] for redraw instructions. Performed By: #### B UN, CBC, CREAT, PP, LYTES, LIPID #### [address] Complete Blood Count Auto Di ffon 03-20-2023 Basophils (Bld) [#/Vol] 0.0 10*3/uL Normal 0.0-0.2 [facility] Comment on above: Result Comment: PERF ORMED BY: [place] [address] PATHOLOGIST TRANSONIC ENGINEER KEVYN DAVIDSON M.D. Performed By: #### B UN, CBC, CREAT, PP, LYTES, LIPID #### [address] Basophils/100 WBC (Bld) 0.4 % Normal . [facility] Comment on above: Performed By: #### B UN, CBC, CREAT, PP, LYTES, LIPID #### [address] Eosinophils (Bld) [#/Vol] 0.3 10*3/uL Normal 0.0-0.45 [facility] Comment on above: Performed By: #### B UN, CBC, CREAT, PP, LYTES, LIPID #### [address] Eosinophils/100 WBC (Bld) 4.1 % Normal . [facility] Comment on above: Performed By: #### B UN, CBC, CREAT, PP, LYTES, LIPID #### [address] Erythrocyte distribution width (RBC) [Ratio] 14.4 % Normal 11.9-15.3 [facility] Comment on above: Performed By: #### B UN, CBC, CREAT, PP, LYTES, LIPID #### [address] Hematocrit (Bld) [Volume fraction] 47.2 % High 34.0-46.4 [facility] Comment on above: Performed By: #### B UN, CBC, CREAT, PP, LYTES, LIPID #### [address] Hemoglobin (Bld) [Mass/Vol] 16.0 g/dL High 11.8-15.4 [facility] Comment on above: Performed By: #### B UN, CBC, CREAT, PP, LYTES, LIPID #### [address] Lymphocytes (Bld) [#/Vol] 2.5 10*3/uL Normal 1.00-4.8 [facility] Comment on above: Performed By: #### B UN, CBC, CREAT, PP, LYTES, LIPID #### [address] Lymphocytes/100 WBC (Bld) 34.2 % Normal . [facility] Comment on above: Performed By: #### B UN, CBC, CREAT, PP, LYTES, LIPID #### [address] MCH (RBC) [Entitic mass] 30.5 pg Normal 24.7-34.3 [facility] Comment on above: Performed By: #### B UN, CBC, CREAT, PP, LYTES, LIPID #### [address] MCV (RBC) [Entitic vol] 89.9 fL Normal 80-100 [facility] Comment on above: Performed By: #### B UN, CBC, CREAT, PP, LYTES, LIPID #### [address] Mean Corpuscular HGB Conc 33.9 g/dL Normal 32.0-35.0 [facility] Comment on above: Performed By: #### B UN, CBC, CREAT, PP, LYTES, LIPID #### [address] Monocytes (Bld) [#/Vol] 0.6 10*3/uL Normal 0.0-0.8 [facility] Comment on above: Performed By: #### B UN, CBC, CREAT, PP, LYTES, LIPID #### [address] Monocytes/100 WBC (Bld) 8.4 % Normal . [facility] Comment on above: Performed By: #### B UN, CBC, CREAT, PP, LYTES, LIPID #### [address] Neutrophils (Bld) [#/Vol] 3.8 10*3/uL Normal 1.8-7.7 [facility] Comment on above: Performed By: #### B UN, CBC, CREAT, PP, LYTES, LIPID #### [address] Neutrophils/100 WBC (Bld) 52.9 % Normal . [facility] Comment on above: Performed By: #### B UN, CBC, CREAT, PP, LYTES, LIPID #### [address] NRBC% 0.1 /100{WBC} Normal 0-0.5 [facility] Comment on above: Performed By: #### B UN, CBC, CREAT, PP, LYTES, LIPID #### [address] Platelet mean volume (Bld) [Entitic vol] 8.0 fL Normal 6.3-10.7 [facility] Comment on above: Performed By: #### B UN, CBC, CREAT, PP, LYTES, LIPID #### [place] [address] [place] Platelets (Bld) [#/Vol] 232 10*3/uL Normal 150-450 [facility] Comment on above: Performed By: #### B UN, CBC, CREAT, PP, LYTES, LIPID #### [place] [address] [place] RBC (Bld) [#/Vol] 5.25 10*6/uL High 3.60-5.00 [facility] Comment on above: Performed By: #### B UN, CBC, CREAT, PP, LYTES, LIPID #### [place] [address] [place] WBC (Bld) [#/Vol] 7.3 10*3/uL Normal 3.8-11.6 [facility] Comment on above: Performed By: #### B UN, CBC, CREAT, PP, LYTES, LIPID #### [facility] [address] Creatinineon 03-20-2023 Creatinine [Mass/Vol] 0.83 mg/dL Normal 0.60-1.[address] [facility] Comment on above: Performed By: #### B UN, CBC, CREAT, PP, LYTES, LIPID #### [facility] [address] GFR/1.73 sq M.predicted MDRD (S/P/Bld) [Vol rate/Area] mL/min/{1.73_m2} Normal [facility] Comment on above: Performed By: #### B UN, CBC, CREAT, PP, LYTES, LIPID #### [address] Creatinine [Mass/volume] in Serum or PlasmaOrdered By: Patrizia Melendrez on 03-20-2023 Creatinine [Mass/Vol] 0.83 mg/dL 0.60-1.[address] [facility] Electrolyteson 03-20-2023 Anion gap [Moles/Vol] 8.5 mmol/L Normal 6.0-15.[address] [facility] Comment on above: Performed By: #### B UN, CBC, CREAT, PP, LYTES, LIPID #### [address] Chloride [Moles/Vol] 105 mmol/L Normal 98-107 [facility] Comment on above: Performed By: #### B UN, CBC, CREAT, PP, LYTES, LIPID #### [facility] [address] CO2 [Moles/Vol] 28.8 mmol/L Normal 21.0-31.0 [facility] Comment on above: Performed By: #### B UN, CBC, CREAT, PP, LYTES, LIPID #### [facility] [address] [place] [address] [place] Potassium [Moles/Vol] 4.3 mmol/L Normal 3.5-5.[address] [facility] Comment on above: Performed By: #### B UN, CBC, CREAT, PP, LYTES, LIPID #### [facility] [address] [place] [id number] [facility] Sodium [Moles/Vol] 138 mmol/L Normal 136-145 [facility] Comment on above: Performed By: #### B UN, CBC, CREAT, PP, LYTES, LIPID #### [facility] [address] Eosinophils Auto (Bld) [#/Vo l]Ordered By: Patrizia Melendrez on 03-20-2023 Eosinophils (Bld) [#/Vol] 0.3 10*3/uL 0.0-0.45 [facility] Eosinophils/100 WBC Auto (Bl d)Ordered By: Patrizia Melendrez on 03-20-2023 Eosinophils/100 WBC (Bld) 4.1 % . [facility] Erythrocyte distribution wid th Auto (RBC) [Ratio]Ordered By: Patrizia Melendrez on 03-20-2023 Erythrocyte distribution width (RBC) [Ratio] 14.4 % 11.9-15.3 [facility] Hematocrit Auto (Bld) [Volum e fraction]Ordered By: Patrizia Melendrez on 03-20-2023 Hematocrit (Bld) [Volume fraction] 47.2 % 34.0-46.4 [facility] Hemoglobin [Mass/volume] in BloodOrdered By: Patrizia Melendrez on 03-20-2023 Hemoglobin (Bld) [Mass/Vol] 16.0 g/dL 11.8-15.4 [facility] INR in Platelet poor plasma by Coagulation assayOrdered By: Patrizia Melendrez on 03-20-2023 INR Coag (PPP) [Relative time] 0.9 {INR} [facility] Comment on above: INR Therapeutic Rang [...] RBC Auto (Bld) [#/Vol] 7.3 10*3/uL 3.8-11.6 [facility] Lipid Panelon 03-20-2023 Cholesterol [Mass/Vol] 270 mg/dL High 140-200 [facility] Comment on above: Result Comment: Chol less than 200 mg/dl low risk Chol 201-239 mg/dl borderline risk Chol 240 mg/dl and greater high risk Performed By: #### B UN, CBC, CREAT, PP, LYTES, LIPID #### [facility] [address] Cholesterol in HDL [Mass/Vol] 45 mg/dL Normal 23-92 [facility] Comment on above: Result Comment: HDL CHOL ATP-III CLASSIFICATION Cardiovascular Risk HDL > or equal to 60 mg/dL LOW HDL < 40 mg/dL HIGH Performed By: #### B UN, CBC, CREAT, PP, LYTES, LIPID #### [facility] [address] Cholesterol.total/Chol esterol in HDL [Mass ratio] 6.0 {ratio} Normal <5.0 [facility] Comment on above: Result Comment: PERF ORMED BY: [place] [address] PATHOLOGIST TRANSONIC ENGINEER KEVYN DAVIDSON M.D. Performed By: #### B UN, CBC, CREAT, PP, LYTES, LIPID #### [facility] [address] LDL Cholesterol,Calculated 170 mg/dL High 0-100 [facility] [facility] Comment on above: Result Comment: LDL ATP III CLASSIFICATION LDL less than 100 mg/dL Optimal LDL 100-129 mg/dL Near or above optimal LDL 130-159 mg/dL Borderline high LDL 160-189 mg/dL High LDL greater than 189 mg/dL Very high Performed By: #### B UN, CBC, CREAT, PP, LYTES, LIPID #### [facility] [address] [place] [address] [place] Triglyceride w/Reflex 277 mg/dL High 0-[address] [facility] Comment on above: Result Comment: TRIG ATP III CLASSIFICATION TRIG less than 150 mg/dL Normal TRIG 150-199 mg/dL Borderline high TRIG 200-500 mg/dL High TRIG greater than 500 mg/dL Very high Standard traceable to the Center for Disease Conrtrol and Prevention (CDC) test method. Performed By: #### B UN, CBC, CREAT, PP, LYTES, LIPID #### [facility] [address] VLDL CHOLESTEROL 55 mg/dL Normal [facility] Comment on above: Performed By: #### B UN, CBC, CREAT, PP, LYTES, LIPID #### [facility] [address] Lymphocytes Auto (Bld) [#/Vo l]Ordered By: Patrizia Melendrez on 03-20-2023 Lymphocytes (Bld) [#/Vol] 2.5 10*3/uL 1.00-4.8 [facility] Lymphocytes/100 WBC Auto (Bl d)Ordered By: Patrizia Melendrez on 03-20-2023 Lymphocytes/100 WBC (Bld) 34.2 % . [facility] MCH Auto (RBC) [Entitic mass ]Ordered By: Patrizia Melendrez on 03-20-2023 MCH (RBC) [Entitic mass] 30.5 pg 24.7-34.3 [facility] MCHC Auto (RBC) [Mass/Vol]Or dered By: Patrizia Melendrez on 03-20-2023 MCHC (RBC) [Mass/Vol] 33.9 g/dL 32.0-35.[address] [facility] MCV Auto (RBC) [Entitic vol] Ordered By: Patrizia Melendrez on 03-20-2023 MCV (RBC) [Entitic vol] 89.9 fL 80-100 [facility] Monocytes Auto (Bld) [#/Vol] Ordered By: Patrizia Melendrez on 03-20-2023 Monocytes (Bld) [#/Vol] 0.6 10*3/uL 0.0-0.8 [facility] Monocytes/100 WBC Auto (Bld) Ordered By: Patrizia Melendrez on 03-20-2023 Monocytes/100 WBC (Bld) 8.4 % . [facility] Neutrophils Auto (Bld) [#/Vo l]Ordered By: Patrizia Melendrez on 03-20-2023 Neutrophils (Bld) [#/Vol] 3.8 10*3/uL 1.8-7.7 [facility] Neutrophils/100 WBC Auto (Bl d)Ordered By: Patrizia Melendrez on 03-20-2023 Neutrophils/100 WBC (Bld) 52.9 % . [facility] No Panel InformationOrdered By: Patrizia Melendrez on 03-20-2023 Estimated GFR (CKD-EPI) > 60.0 mL/Min [facility] Creatinine Clearance (Chem N/A [facility] Nucleated erythrocytes [Pres ence] in Blood by Automated countOrdered By: Patrizia Melendrez on 03-20-2023 Nucleated RBC Auto Ql (Bld) 0.1 /100{WBC} 0-0.5 [facility] Platelet mean volume Auto (B ld) [Entitic vol]Ordered By: Patrizia Melendrez on 03-20-2023 Platelet mean volume (Bld) [Entitic vol] 8.0 fL 6.3-10.7 [facility] Platelets Auto (Bld) [#/Vol] Ordered By: Patrizia Melendrez on 03-20-2023 Platelets (Bld) [#/Vol] 232 10*3/uL 150-450 [facility] Potassium [Moles/volume] in Serum or PlasmaOrdered By: Patrizia Melendrez on 03-20-2023 Potassium [Moles/Vol] 4.3 mmol/L 3.5-5.[address] [facility] Prothrombin time (PT)Ordered By: Patrizia Melendrez on 03-20-2023 PT Coag (PPP) [Time] 11.2 s 9.0-12.9 [facility] Comment on above: A hematocrit value g reater than 55% may lead to inaccurate results in coagulation testing. Patients having hematocrit values >55% require a special collection tube for coagulation studies. Please contact the laboratory at [phone] for redraw instructions. RBC Auto (Bld) [#/Vol]Ordere d By: Patrizia Melendrez on 03-20-2023 RBC (Bld) [#/Vol] 5.25 10*6/uL 3.60-5.00 [facility] Serum or plasma anion gap de terminationOrdered By: Patrizia Melendrez on 03-20-2023 Anion gap [Moles/Vol] 8.5 mmol/L 6.0-15.[address] [facility] Serum or plasma high density lipoprotein (HDL) cholesterol measurementOrdered By: Patrizia Melendrez on 03-20-2023 Cholesterol in HDL [Mass/Vol] 45 mg/dL [facility] Comment on above: HDL CHOL ATP-III CLA SSIFICATION Cardiovascular RiskHDL > or equal to 60 mg/dL LOWHDL < 40 mg/dL HIGH Serum or plasma total choles terol/high density lipoprotein (HDL) cholesterol mass ratOrdered By: Patrizia Melendrez on 03-20-2023 Cholesterol.total/Chol esterol in HDL [Mass ratio] 6.0 {ratio} <5.0 [facility] Sodium [Moles/volume] in Ser um or PlasmaOrdered By: Patrizia Melendrez on 03-20-2023 Sodium [Moles/Vol] 138 mmol/L 136-145 [facility] Triglyceride [Mass/volume] i n Serum or PlasmaOrdered By: Patrizia Melendrez on 03-20-2023 Triglyceride [Mass/Vol] 277 mg/dL 0-149 [facility] Comment on above: TRIG ATP III CLASSIF ICATIONTRIG less than 150 mg/dL NormalTRIG 150-199 mg/dL Borderline highTRIG 200-500 mg/dL High TRIG greater than 500 mg/dL Very highStandard traceable to the Center for Disease Conrtrol and Prevention (CDC) test method. Urea nitrogen [Mass/volume] in Serum or PlasmaOrdered By: Patrizia Melendrez on 03-20-2023 Urea nitrogen [Mass/Vol] 21 mg/dL 01-15 [facility] WBC Auto (Bld) [#/Vol]Ordere d By: Patrizia Melendrez on 03-20-2023 WBC (Bld) [#/Vol] 7.3 10*3/uL 3.8-11.6 [facility] CREATININEon 10-01-2022 Creatinine [Mass/Vol] 0.73 mg/dL Normal 0.55-1.02 [facility] Comment on above: Performed By: #### C PRISCILLA ####[facility] [address] [place], [place] [address]Rf. Gonzalo Willis EGFR-AF URUGUAYAN >60 Normal >=60 [facility] Comment on above: Performed By: #### C PRISCILLA ####[facility] [address] [place], [place] [address]Ku. Gonzalo Willis EGFR-NON AF URUGUAYAN >60 Normal >=60 [facility] Comment on above: Performed By: #### C PRISCILLA ####[facility] [address] [place] [id number]. Gonzalo Willis CT NECK ST WO W [...] by: SHAWN GRAFF Date: 2022-10-01 09:51 Normal [facility] US THYROIDon 09-04-2022 US THYROID EXAMINATION: US [...] SHAWN GRAFF Date: 2022-09-04 16:52 Normal [facility] US CAROTID ART BILon 023 US CAROTID [...] NISA EDWARDS Date: 2022-08-22 17:29 Normal [facility] Office Visit (Cardiology)on 07-19-2022 Follow-up visit Diagnoses/Problems [...] no s (more content not included)... Normal [employer] Tobacco Screening.on 023 Adult depression screening assessment No [facility] [employer] DO Work Phone: Fall risk assessment a) No falls within the last year [facility] [employer] DO Work Phone: Tobacco use status CPHS b) No [facility] [employer] 250 DO Work Phone: ECHOCARDIO M/2D COMPLETEon 1 07-29-2021 ECHOCARDIO M/2D COMPLETE Patient: ELIZABETH QUEZADA Exam Date: 05/28/2022 : 1960 Gender:F Ordering : DR NANO NGUYEN . Admission #: [id number] Family : Order #: [id number] CLICK HERE TO VIEW EXAM ECHOCARDIOGRAM REPORT [...] M.D. on 05/30/2022 at 11:03 Approved by: Jakclyn Kamara M.D. on 05/30/2022 at 11:06 Normal [facility] MAMM SCREEN 3D LOVE CADon 05-25-2022 MG MAMM SCREEN 3D LOVE CAD Patient: ELIZABETH QUEZADA Exam Date: 05/25/2022 : 1960 Gender:F Ordering : DR NANO NGUYEN . Admission #: [id number] Family : Order #: [id number] CLICK HERE TO VIEW EXAM RADIOLOGY REPORT [...] lung cancer at age 58. LOCATION: [facility] BREAST COMPOSITION: Almost entirely fatty. FINDINGS: DIAGNOSTIC [...] Edwards MD on 05/25/2022 at 09:51 Normal [facility] NM STRESS/REST MULTIon 05-22 NM STRESS/REST MULTI Patient: EMILY QUEZADA Exam Date: 05/22/2022 : 1960 Gender:F Ordering : DR NANO NGUYEN . Admission #: [id number] Family : Order #: [id number] CLICK HERE TO VIEW EXAM RADIOLOGY REPORT [...] Graff M.D. on 05/22/2022 at 15:59 Normal [facility] CT LUNG CANCER SCREENINGon 1 07-11-2021 CT [...] NISA EDWARDS Date: 2022-05-11 15:25 Normal [facility] CBC AUTO DIFFon 05-10-2022 BASO # 0.0 103/ul Normal 0.0-0.1 [facility] Comment on above: Performed By: #### C BC ####[facility] [address] [place], [place] [address]Dr. Gonzalo Willis Basophils/100 WBC (Bld) 0.5 % Normal 0.2-2.0 [facility] Comment on above: Performed By: #### C BC ####[facility] [address] [place] [address]Dr. Gonzalo Willis EO # 0.2 103/ul Normal 0.0-0.7 [facility] Comment on above: Performed By: #### C BC ####[facility] [address] [place], [place] [address]Dr. Gonzalo Willis Eosinophils/100 WBC (Bld) 1.8 % Normal 0.9-7.0 [facility] Comment on above: Performed By: #### C BC ####[facility] [address] [place] [address]Dr. Gonzalo Willis Erythrocyte distribution width (RBC) [Ratio] 12.4 % Normal 11.0-15.0 [facility] Comment on above: Performed By: #### C BC ####[facility] [address] [place], [place] [address]Dr. Gonzalo Willis Hematocrit (Bld) [Volume fraction] 53.7 % Critically high 36.0-48.0 [facility] Comment on above: Performed By: #### C BC ####[facility] [address] [place], [place] [address]Dr. Gonzalo Willis Hemoglobin (Bld) [Mass/Vol] 18.4 g/dL Critically high 12.0-16.0 [facility] Comment on above: Performed By: #### C BC ####[facility] [address] [place], [place] [address]Dr. Gonzalo Willis IG # 0.04 10e3/ul Critically high 0.00-0.03 [facility] Comment on above: Performed By: #### C BC ####[facility] [address] [place], [place] [address]Dr. Gonzalo Willis IG % 0.5 % Normal 0.0-0.5 [facility] Comment on above: Performed By: #### C BC ####[facility] [address] [place], [place] [address]Dr. Gonzalo Willis LYMPH # 2.5 103/ul Normal 1.2-3.8 [facility] Comment on above: Performed By: #### C BC ####[facility] [address] [place], [place] [address]Dr. Gonzalo Willis Lymphocytes/100 WBC (Bld) 29.2 % Normal 20.5-60.0 [facility] Comment on above: Performed By: #### C BC ####[facility] [address] [place], [place] [address]Dr. Gonzalo Willis MANUAL DIFF REQ NO Normal [facility] Comment on above: Performed By: #### C BC ####[facility] [address] [place] [id number]. Gonzalo Willis MCH (RBC) [Entitic mass] 31.2 pg Normal 26.7-34.0 [facility] Comment on above: Performed By: #### C BC ####[facility] [address] [place] [id number]. Gonzalo Willis MCHC (RBC) [Mass/Vol] 34.3 g/dL Normal 29.9-35.2 [facility] Comment on above: Performed By: #### C BC ####[facility] [address] [place] [id number]. Gonzalo Willis MCV (RBC) [Entitic vol] 91.0 fL Normal 81.0-99.0 [facility] Comment on above: Performed By: #### C BC ####[facility] [address] [place], [place] [address]Dr. Gonzalo Lazaro MONO # 0.6 103/ul Normal 0.3-0.8 [facility] Comment on above: Performed By: #### C BC ####[facility] [address] [place], [place] [address]Dr. Chantellkaleb Willis Monocytes/100 WBC (Bld) 7.2 % Normal 1.7-12.0 [facility] Comment on above: Performed By: #### C BC ####[facility] [address] [place], [place] [address]Dr. Gonzalo Willis NEUT # 5.3 103/ul Normal 1.4-6.5 [facility] Comment on above: Performed By: #### C BC ####[facility] [address] [place], [place] [address]Dr. Chantellkaleb Willis Neutrophils/100 WBC (Bld) 60.8 % Normal 43.0-75.0 [facility] Comment on above: Performed By: #### C BC ####[facility] [address] [place], [place] [id number]. Gonzalo Willis Platelet mean volume (Bld) [Entitic vol] 9.5 fL Normal 9.5-13.5 [facility] Comment on above: Performed By: #### C BC ####[facility] [address] [place] [id number]. Gonzalo Willis PLT 265 103/ul Normal 150-450 [facility] Comment on above: Performed By: #### C BC ####[facility] [address] [place], [place] [address]Ko. Gonzalo Willis RBC 5.90 106/ul Critically high 4.20-5.40 [facility] Comment on above: Performed By: #### C BC ####[facility] [address] [place] [id number]. Gonzalo Willis WBC 8.7 103/ul Normal 4.0-11.0 [facility] Comment on above: Performed By: #### C BC ####[facility] [address] [place] [id number]. Gonzalo Willis FREE THYROXINE INDEX T7on FTI 2.74 Normal 1.30-4.50 [facility] Comment on above: Performed By: #### T 7, TSH, CMP, LIPID ####[facility] [address] [place] [id number]. Gonzalo Willis T3U 33.0 % Normal 30.0-39.0 [facility] Comment on above: Performed By: #### T 7, TSH, CMP, LIPID ####[facility] [address] [place] [id number]. oGnzalo Willis T4 [Mass/Vol] 8.30 ug/dL Normal 4.80-13.90 [facility] Comment on above: Performed By: #### T 7, TSH, CMP, LIPID ####[facility] [address] [place] [id number]. Gonzalo Willis GLYCOHEMOGLOBIN A1Con 2021 ADA RECOMMENDATION SEE BELOW Normal [facility] Comment on above: Result Comment: ADA RECOMMENDED LIMIT 4.0 - 6.0 ADA THERAPEUTIC TARGET < 7.0 ACTION SUGGESTED > 7.0 Performed By: #### A 1C ####[facility] [address] [place], [place] [address]Dr. Gonzalo Willis Glucose [Mass/Vol] 192 mg/dL Normal [facility] Comment on above: Performed By: #### A 1C ####[facility] [address] [place] [id number]. Gonzalo Willis HbA1c (Bld) [Mass fraction] 8.3 % Critically high 4.5-6.2 [facility] Comment on above: Performed By: #### A 1C ####[facility] [address] [place] [id number]. Gonzalo Willis IRONon 05-10-2022 Iron [Mass/Vol] 193.0 ug/dL Critically high 50.0-170.0 [facility] Comment on above: Performed By: #### I MATTHEW MONTELONGO, VITB12 ####[facility] [address] [place] [address]Dr. Gonzalo Willis LIPID PROFILEon 05-10-2022 CHOL-HDL RATIO NORM SEE BELOW Normal [facility] Comment on above: Result Comment: 3.3 - 4.4 LOW RISK 4.4 - 7.1 AVERAGE RISK 7.1 - 11.0 MODERATE RISK >11.0 HIGH RISK Performed By: #### T 7, TSH, CMP, LIPID #### [facility] [address] [place] [address] [address] Gonzalo Willis Cholesterol [Mass/Vol] 262 mg/dL Critically high <=200 [facility] Comment on above: Performed By: #### T 7, TSH, CMP, LIPID #### [facility] [address] [place] [address] [address] Gonzalo Willis Cholesterol in HDL [Mass/Vol] 57 mg/dL Normal 40-60 [facility] Comment on above: Performed By: #### T 7, TSH, CMP, LIPID #### [facility] [address] [place] [id number] [address] Gonzalo Willis Cholesterol in LDL [Mass/Vol] 177.4 mg/dL Normal [facility] Comment on above: Performed By: #### T 7, TSH, CMP, LIPID #### [facility] [address] [place] [id number] [address] Gonzalo Willis Cholesterol.total/Chol esterol in HDL [Mass ratio] 4.6 {ratio} Normal [facility] Comment on above: Performed By: #### T 7, TSH, CMP, LIPID #### [facility] [address] [place] [address] [address] Gonzalo Willis HDL NORMAL > or = 60 mg/dl - LO W CARDIOVASCULAR RISK <40 mg/dl - HIGH CARDIOVASCULAR RISK Normal [facility] Comment on above: Performed By: #### T 7, TSH, CMP, LIPID #### [facility] [address] [place] [address] Dr. Gonzalo Willis LDL CALC NORMAL SEE BELOW Normal [facility] Comment on above: Result Comment: <100 mg/dl OPTIMAL 100 - 129 mg/dl NEAR OR ABOVE OPTIMAL 130 - 159 mg/dl BORDERLINE HIGH 160 - 189 mg/dl HIGH >190 mg/dl VERY HIGH Performed By: #### T 7, TSH, CMP, LIPID #### [facility] [address] [place] [address] Dr. Gonzalo Willis Triglyceride [Mass/Vol] 138 mg/dL Normal <=150 [facility] Comment on above: Performed By: #### T 7, TSH, CMP, LIPID #### [facility] [address] [place] [address] Dr. Gonzalo Willis VLDL CALC 27.6 mg/dL Normal [facility] Comment on above: Performed By: #### T 7, TSH, CMP, LIPID #### [facility] [address] [place] [address] Dr. Gonzalo Willis PROF 14(COMP METB)on 022 Albumin [Mass/Vol] 4.3 g/dL Normal 3.4-5.0 [facility] Comment on above: Performed By: #### T 7, TSH, CMP, LIPID #### [facility] [address] [place] [address] Dr. Gonzalo Willis Albumin/Globulin [Mass ratio] 1.0 {ratio} Normal [facility] Comment on above: Performed By: #### T 7, TSH, CMP, LIPID #### [facility] [address] [place] [address] Dr. Gonzalo Willis ALP [Catalytic activity/Vol] 86 U/L Normal 46-116 [facility] Comment on above: Performed By: #### T 7, TSH, CMP, LIPID #### [facility] [address] [place] [address] [address] Gonzalo Willis ALT [Catalytic activity/Vol] 20 U/L Normal 14-59 [facility] Comment on above: Performed By: #### T 7, TSH, CMP, LIPID #### [facility] [address] [place] [address] [address] Gonzalo Willis Anion gap [Moles/Vol] 11.2 mmol/L Normal [facility] Comment on above: Performed By: #### T 7, TSH, CMP, LIPID #### [facility] [address] [place] [address] Dr. Gonzalo Willis AST [Catalytic activity/Vol] 9 U/L Critically low 15-37 [facility] Comment on above: Performed By: #### T 7, TSH, CMP, LIPID #### [facility] [address] [place] [address] Dr. Gonzalo Willis Bilirubin [Mass/Vol] 0.6 mg/dL Normal 0.2-1.0 [facility] Comment on above: Performed By: #### T 7, TSH, CMP, LIPID #### [facility] [address] [place] [address] Dr. Gonzalo Willis Calcium [Mass/Vol] 10.1 mg/dL Normal 8.5-10.1 [facility] Comment on above: Performed By: #### T 7, TSH, CMP, LIPID #### [facility] [address] [place] [address] Dr. Gonzalo Willis Chloride [Moles/Vol] 98 mmol/L Normal 98-107 [facility] Comment on above: Performed By: #### T 7, TSH, CMP, LIPID #### [facility] [address] [place] [address] Dr. Gonzalo Willis CO2 [Moles/Vol] 28.4 mmol/L Normal 21.0-32.0 [facility] Comment on above: Performed By: #### T 7, TSH, CMP, LIPID #### [facility] [address] [place] [address] [address] Gonzalo Willis Creatinine [Mass/Vol] 0.72 mg/dL Normal 0.55-1.02 [facility] Comment on above: Performed By: #### T 7, TSH, CMP, LIPID #### [facility] [address] [place] [address] [address] Gonzalo Willis EGFR-AF URUGUAYAN >60 Normal >=60 [facility] Comment on above: Performed By: #### T 7, TSH, CMP, LIPID #### [facility] [address] [place] [address] [address] Gonzalo Willis EGFR-NON AF URUGUAYAN >60 Normal >=60 [facility] Comment on above: Performed By: #### T 7, TSH, CMP, LIPID #### [facility] [address] [place] [address] Dr. Gonzalo Willis Globulin (S) [Mass/Vol] 4.1 g/dL Normal [facility] Comment on above: Performed By: #### T 7, TSH, CMP, LIPID #### [facility] [address] [address] [address] Gonzalo Willis Glucose [Mass/Vol] 164 mg/dL Critically high 74-106 [facility] Comment on above: Performed By: #### T 7, TSH, CMP, LIPID #### [facility] [address] [place] [address] [address] Gonzalo Willis Potassium [Moles/Vol] 4.6 mmol/L Normal 3.5-5.1 [facility] Comment on above: Performed By: #### T 7, TSH, CMP, LIPID #### [facility] [address] [place] [address] [address] Gonzalo Willis Protein [Mass/Vol] 8.4 g/dL Critically high 6.4-8.2 [facility] Comment on above: Performed By: #### T 7, TSH, CMP, LIPID #### [facility] [address] [place] [address] [address] Gonzalo Willis Sodium [Moles/Vol] 133 mmol/L Critically low 136-145 [facility] Comment on above: Performed By: #### T 7, TSH, CMP, LIPID #### [facility] [address] [place] [address] [address] Gonzalo Willis Urea nitrogen [Mass/Vol] 20.0 mg/dL Critically high 7.0-18.0 [facility] Comment on above: Performed By: #### T 7, TSH, CMP, LIPID #### [facility] [address] [address] [address] Gonzalo Willis Urea nitrogen/Creatinine [Mass ratio] 27.8 mg/mg Normal [facility] Comment on above: Performed By: #### T 7, TSH, CMP, LIPID #### [facility] [address] [address] [address] Gonzalo Willis TSHon 05-10-2022 TSH 0.872 uIU/mL Normal 0.358-3.740 [facility] Comment on above: Performed By: #### T 7, TSH, CMP, LIPID ####[facility] [address] [place] [address]Dr. Gonzalo Willis VITAMIN B12on 05-10-2022 Cobalamin (Vitamin B12) [Mass/Vol] 526.0 pg/mL Normal 193.0-986.0 [facility] Comment on above: Performed By: #### I REGINALD, VITAD, VITB12 ####[facility] [address] [place] [address]DrMel Willis VITAMIN D 25 OHon 05-10-2022 VIT D 25-OH 67.4 ng/mL Normal [facility] Comment on above: Performed By: #### I REGINALD, VITAD, VITB12 ####[facility] [address] [place] [address]DrMel Willis VIT D RANGES SEE BELOW Normal [facility] Comment on above: Result Comment: <20 ng/mL Vit D deficient 20 - <30 ng/mL Vit D insufficient 30 - 100 ng/mL Vit D sufficient >100 ng/mL Potential Toxicity Performed By: #### I REGINALD, VITAD, VITB12 ####[facility] [address] [place], [place] [address]SfDr. Gonzalo Willis Covid-19 PCR (CVDTB)on SARS-CoV-2 (COVID-19) RNA WALKER+probe Ql (Unsp spec) Not detected Normal NOT DETECTED [facility] Comment on above: Result Comment: When diagnostic [...] for this test is supported by the [place] of Health and Human Service's declaration that [...] longer be used). Performed By: #### [facility] #### [facility] [address] [place], [place] [address] Dr. Gonzalo Willis Vital Signs Date Time Vital Sign Value Performing Clinician Facility 04-28-2024 10:51-0500 Diastolic blood pressure 75 mm[Hg] Papa Santiago MD Work Phone: [facility] 04-28-2024 10:51-0500 Heart rate 84 /min Papa Santiago MD Work Phone: [facility] 04-28-2024 10:51-0500 Systolic blood pressure 135 mm[Hg] Papa Santiago MD Work Phone: [facility] 01-28-2024 12:01-0400 Diastolic blood pressure 70 mm[Hg] Papa Santiago MD Work Phone: [facility] 01-28-2024 12:01-0400 Heart rate 83 /min Papa Santiago MD Work Phone: [facility] 01-28-2024 12:01-0400 Systolic blood pressure 147 mm[Hg] Papa Santiago MD Work Phone: [facility] 01-16-2024 11:51-0400 Body height 165.1 cm Shanice Larsen MD Work Phone: [facility] 01-16-2024 11:51-0400 Body mass index (BMI) [Ratio] 28.62 kg/m2 Shanice Larsen MD Work Phone: [facility] 01-16-2024 11:51-0400 Body weight 78.02 kg Shanice Larsen MD Work Phone: [facility] 01-16-2024 11:51-0400 Diastolic blood pressure 69 mm[Hg] Shanice Larsen MD Work Phone: [facility] 01-16-2024 11:51-0400 Heart rate 88 /min Shanice Larsen MD Work Phone: [facility] 01-16-2024 11:51-0400 SaO2% (BldA) [Mass fraction] 98 % Shanice Larsen MD Work Phone: [facility] 01-16-2024 11:51-0400 Systolic blood pressure 110 mm[Hg] Shanice Larsen MD Work Phone: [facility] 10-10-2023 12:40-0400 Body height 160 cm Shanice Larsen MD Work Phone: [facility] 10-10-2023 12:40-0400 Body weight 77.11 kg Shanice Larsen MD Work Phone: [facility] 10-10-2023 12:40-0400 Diastolic blood pressure 73 mm[Hg] Shanice Larsen MD Work Phone: [facility] [facility] 10-10-2023 12:40-0400 Heart rate 90 /min Shanice Larsen MD Work Phone: [facility] 10-10-2023 12:40-0400 Respiratory rate 16 /min Shanice Larsen MD Work Phone: [facility] 10-10-2023 12:40-0400 SaO2% (BldA) [Mass fraction] 97 % Shanice Larsen MD Work Phone: [facility] 10-10-2023 12:40-0400 Systolic blood pressure 127 mm[Hg] Shanice Larsen MD Work Phone: [facility] 08-07-2023 10:40-0500 Body height 162 cm Andegoni Sandalakis SEED YEAST OPERATOR.MARSHMALLOW MAKER Work Phone: [facility] 08-07-2023 10:40-0500 Body temperature 98.01 [degF] Andegoni Sandalakis SEED YEAST OPERATOR.MARSHMALLOW MAKER Work Phone: [facility] 08-07-2023 10:40-0500 Body weight 82.64 kg Andegoni Sandalakis SEED YEAST OPERATOR.MARSHMALLOW MAKER Work Phone: [facility] 08-07-2023 10:40-0500 Diastolic blood pressure 70 mm[Hg] Andegoni Sandalakis SEED YEAST OPERATOR.MARSHMALLOW MAKER Work Phone: [facility] 08-07-2023 10:40-0500 Heart rate 82 /min Andegoni Sandalakis SEED YEAST OPERATOR.MARSHMALLOW MAKER Work Phone: [facility] 08-07-2023 10:40-0500 SaO2% (BldA) [Mass fraction] 97 % Andegoni Sandalakis SEED YEAST OPERATOR.MARSHMALLOW MAKER Work Phone: [facility] 08-07-2023 10:40-0500 Systolic blood pressure 128 mm[Hg] Andegoni Sandalakis SEED YEAST OPERATOR.MARSHMALLOW MAKER Work Phone: [facility] 07-30-2023 16:30-0500 SaO2% (BldA) [Mass fraction] 98 % NANO NGUYEN [facility] Comment on above: Order Comment: Specimen Type: ARTERIAL B LOOD SPECIMENOrdering Facility: [facility] Address: [address] [place] [address] Performed By: #### A LLBG ####[facility] [id number] [place] [id number] [place] 07-30-2023 13:11-0500 SaO2% (BldA) [Mass fraction] 98 % NANO HOY [facility] Comment on above: Order Comment: Specimen Type: ARTERIAL B LOOD SPECIMENOrdering Facility: [facility] Address: [address] [place], [place] [id number] Performed By: #### A LLBG ####[facility] [id number] [place] [id number] [place] 07-30-2023 10:56-0500 SaO2% (BldA) [Mass fraction] 96 % NANO HOY [facility] Comment on above: Order Comment: Specimen Type: ARTERIAL B LOOD SPECIMENOrdering Facility: [facility] Address: [address] [place] [address] Performed By: #### A LLBG ####[facility] [id number] [place] [id number] [place] 07-30-2023 08:10-0500 SaO2% (BldA) [Mass fraction] 97 % NANO HOY [facility] Comment on above: Order Comment: Specimen Type: ARTERIAL B LOOD SPECIMENOrdering Facility: [facility] Address: [address] [place], [place] [id number] Performed By: #### A LLBG ####[facility] [id number] [place] [id number] [place] 07-30-2023 06:05-0500 SaO2% (BldA) [Mass fraction] 97 % NANO HOY [facility] Comment on above: Order Comment: Specimen Type: ARTERIAL B LOOD SPECIMENOrdering Facility: [facility] Address: [address] [place] [address] Performed By: #### A LLBG ####[facility]CL[facility] [id number] [address] [address] [facility] 07-30-2023 03:36-0500 SaO2% (BldA) [Mass fraction] 98 % NANO HOY [facility] Comment on above: Order Comment: Specimen Type: ARTERIAL B LOOD SPECIMENOrdering Facility: [facility] Address: [address] [place], [place] [id number] Performed By: #### A LLBG ####[facility] LABIA [id number] [place] [id number] [facility] 07-30-2023 01:31-0500 SaO2% (BldA) [Mass fraction] 98 % NANO HOY [facility] Comment on above: Order Comment: Specimen Type: ARTERIAL B LOOD SPECIMENOrdering Facility: [facility] Address: [address] [place] [address] Performed By: #### A LLBG ####[facility] LABIA [id number] [place] [id number] [place] 07-29-2023 23:17-0500 SaO2% (BldA) [Mass fraction] 98 % NANO HOY [facility] Comment on above: Order Comment: Specimen Type: ARTERIAL B LOOD SPECIMENOrdering Facility: [facility] Address: [address] [place], [place] [address] Performed By: #### A LLBG ####[facility] [id number] [address] [address] [place] 07-29-2023 21:16-0500 SaO2% (BldA) [Mass fraction] 98 % NANO HOY [facility] Comment on above: Order Comment: Specimen Type: ARTERIAL B LOOD SPECIMENOrdering Facility: [facility] Address: [address] [place], [place] [address] Performed By: #### A LLBG ####[facility] LABIA [id number] [place] [id number] [place] 07-29-2023 19:19-0500 SaO2% (BldA) [Mass fraction] 99 % NANO HOY [facility] Comment on above: Order Comment: Specimen Type: ARTERIAL B LOOD SPECIMENOrdering Facility: [facility] Address: [address] [place], [place] [address] Performed By: #### A LLBG ####[facility] LABIA [id number] [place] [id number] [place] 07-29-2023 16:39-0500 SaO2% (BldA) [Mass fraction] 97 % NANO HOY [facility] Comment on above: Order Comment: Specimen Type: ARTERIAL B LOOD SPECIMENOrdering Facility: [facility] Address: [address] [place] [address] Performed By: #### A LLBG ####[facility] [id number] [place] [id number] [place] [facility] 07-29-2023 14:51-0500 SaO2% (BldA) [Mass fraction] 99 % NANO HOY [facility] Comment on above: Order Comment: Specimen Type: ARTERIAL B LOOD SPECIMENOrdering Facility: [facility] Address: [address] [place], [place] [address] Performed By: #### A LLBG ####[facility] [id number] [place] [id number] [place] 07-29-2023 13:51-0500 SaO2% (BldA) [Mass fraction] 99 % NANO HOY [facility] Comment on above: Order Comment: Specimen Type: ARTERIAL B LOOD SPECIMENOrdering Facility: [facility] Address: [address] [place], [place] [address] Performed By: #### A LLMG ####[facility] [id number] [place] [phone] [facility] 07-29-2023 13:19-0500 SaO2% (BldA) [Mass fraction] 99 % NANO HOY [facility] Comment on above: Order Comment: Specimen Type: ARTERIAL B LOOD SPECIMENOrdering Facility: [facility] Address: [address] [place], [place] [address] Performed By: #### A LLBG ####[facility] [id number] [place] [id number] [place] 07-29-2023 12:23-0500 SaO2% (BldA) [Mass fraction] 100 % NANO HOY [facility] Comment on above: Order Comment: Specimen Type: ARTERIAL B LOOD SPECIMENOrdering Facility: [facility] Address: [address] [place], [place] [address] Performed By: #### A LLBG ####[facility]CL[facility] [id number] [place] [phone] [facility] 07-29-2023 11:28-0500 SaO2% (BldA) [Mass fraction] 100 % NANO HOY [facility] Comment on above: Order Comment: Specimen Type: ARTERIAL B LOOD SPECIMENOrdering Facility: [facility] Address: [address] [place], [place] [address] Performed By: #### A LLBG ####[facility] LABIA [id number] [place] [phone] [place] [facility] 07-29-2023 10:41-0500 SaO2% (BldA) [Mass fraction] 100 % NANO HOY [facility] Comment on above: Order Comment: Specimen Type: ARTERIAL B LOOD SPECIMENOrdering Facility: [facility] Address: [address] [place] [address] Performed By: #### A LLBG ####[facility]CL[facility] [id number] [place] [phone] [place] 07-29-2023 09:58-0500 SaO2% (BldA) [Mass fraction] 98 % NANO HOY [facility] Comment on above: Order Comment: Specimen Type: ARTERIAL B LOOD SPECIMENOrdering Facility: [facility] Address: [address] [place] [address] Performed By: #### A LLBG ####[facility]CL[facility] [id number] [place] [phone] [place] [facility] 07-29-2023 09:43-0500 SaO2% (BldA) [Mass fraction] 99 % NANO HOY [facility] Comment on above: Order Comment: Specimen Type: ARTERIAL B LOOD SPECIMENOrdering Facility: [facility] Address: [address] [place] [address] Performed By: #### A LLBG ####[facility] LABCL[facility] [id number] [place] [id number] [place] 07-29-2023 07:09-0500 SaO2% (BldA) [Mass fraction] 99 % NANO NGUYEN [facility] Comment on above: Order Comment: Specimen Type: ARTERIAL B LOOD SPECIMENOrdering Facility: [facility] Address: [address] [place] [address] Performed By: #### A LLBG ####[facility] [id number] [place] [id number] [place] 05-28-2023 13:50-0500 Body height 165.1 cm Shanice Larsen MD Work Phone: [facility] 05-28-2023 13:50-0500 Body weight 78.93 kg Shanice Larsen MD Work Phone: [facility] 05-28-2023 13:50-0500 Diastolic blood pressure 59 mm[Hg] Shanice Larsen MD Work Phone: [facility] 05-28-2023 13:50-0500 Heart rate 82 /min Shanice Larsen MD Work Phone: [facility] 05-28-2023 13:50-0500 Respiratory rate 16 /min Shanice Larsen MD Work Phone: [facility] 05-28-2023 13:50-0500 SaO2% (BldA) [Mass fraction] 97 % Shanice Larsen MD Work Phone: [facility] 05-28-2023 13:50-0500 Systolic blood pressure 109 mm[Hg] Shanice Larsen MD Work Phone: [facility] 04-03-2023 09:16-0400 Diastolic blood pressure 116 mm[Hg] Shanice Larsen MD Work Phone: [facility] 04-03-2023 09:16-0400 Heart rate 101 /min Shanice Larsen MD Work Phone: [facility] 04-03-2023 09:16-0400 Systolic blood pressure 200 mm[Hg] Shanice Larsen MD Work Phone: [facility] 03-26-2023 17:15-0400 Diastolic blood pressure 64 mm[Hg] MD Nano Nguyen Work Phone: [facility] 03-26-2023 17:15-0400 Heart rate 69 /min MD Nano Nguyen Work Phone: [facility] 03-26-2023 17:15-0400 Respiratory rate 20 /min MD Nano Nguyen Work Phone: [facility] 03-26-2023 17:15-0400 SaO2% (BldA) [Mass fraction] 99 % MD Nano Nguyen Work Phone: [facility] 03-26-2023 17:15-0400 Systolic blood pressure 143 mm[Hg] MD Nano Nguyen Work Phone: [facility] 03-26-2023 13:02-0400 Body height 165.1 cm MD Nano Nguyen Work Phone: [facility] 03-26-2023 13:02-0400 Body temperature 97.7 [degF] MD Nano Nguyen Work Phone: [facility] 03-26-2023 13:02-0400 Body weight 84.5 kg MD Nano Nguyen Work Phone: [facility] 03-20-2023 13:00-0400 Body height 165.1 cm Patrizia Arevalooroge Other [facility] [employer] Other 03-20-2023 13:00-0400 Body mass index (BMI) [Ratio] 31.31 kg/m2 Patrizia Parvin Other [employer] Other 03-20-2023 13:00-0400 Body weight 85.37 kg Patrizia Arevalooroge Other [employer] Other 03-20-2023 13:00-0400 Diastolic blood pressure 82 mm[Hg] Patrizia Arevalooroge Other [employer] Other 03-20-2023 13:00-0400 SaO2% (BldA) [Mass fraction] 94 % Patrizia Parvin Other [employer] Other 03-20-2023 13:00-0400 Systolic blood pressure 124 mm[Hg] Patrizia Arevalooroge Other [employer] Other 07-19-2022 13:16-0500 Body height 165.1 cm Nano M Hoy Work Phone: [facility] 250 DO Work Phone: 07-19-2022 13:16-0500 Body mass index (BMI) [Ratio] 31.95 kg/m2 Nano M Hoy Work Phone: [facility] 250 DO Work Phone: 07-19-2022 13:16-0500 Body surface area Derived from formula 1.94 m2 Nano M Hoy Work Phone: [facility] 250 DO Work Phone: 07-19-2022 13:16-0500 Body weight 87.09 kg Nano M Hoy Work Phone: [facility] 250 DO Work Phone: 07-19-2022 13:16-0500 Diastolic blood pressure 64 mm[Hg] Nano M Hoy Work Phone: [facility] 250 DO Work Phone: 07-19-2022 13:16-0500 Diastolic blood pressure 70 mm[Hg] Nano M Hoy Work Phone: [facility] 250 DO Work Phone: 07-19-2022 13:16-0500 Heart rate 85 /min Nano M Hoy Work Phone: [facility] 250 DO Work Phone: 07-19-2022 13:16-0500 Systolic blood pressure 110 mm[Hg] Nano M Hoy Work Phone: [facility] 250 DO Work Phone: 07-19-2022 13:16-0500 Systolic blood pressure 100 mm[Hg] Nano M Hoy Work Phone: [facility] 250 DO Work Phone: Encounters Encounter Date [...] malunion (Primary Dx); 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 Start: 02-18-2024 End: 02-18-2024 Subsequent hospital visit by physician Ct 2 Main Qb (I-Stat) Radiology Comment on above: Coronary artery dise ase of telida artery of telida heart with stable angina pectoris (HCC) [I25.118] [...] (Primary Dx) Start: 01-28-2024 End: 01-28-2024 ambulatory [facility] Facility:[facility] Start: 01-16-2024 End: 01-16-2024 Patient encounter procedure Shanice Larsen MD Work Phone: Cardiology Comment on above: Coronary artery dise ase of telida artery of telida heart with stable angina pectoris (HCC) (Primary Dx); PAD (peripheral artery disease) (HCC); Primary hypertension; Hyperlipidemia, unspecified hyperlipidemia type Start: 01-16-2024 End: 01-16-2024 ambulatory NANO NGUYEN Facility: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, bilateral legs (HCC) (Primary Dx) Start: 01-01-2024 Telephone encounter Nano Nguyen MD Work Phone: [address] [place] [address] Comment on above: Appointment Start: 12-30-2023 End: [...] Telephone encounter Shanta comer RN Work Phone: [facility] Comment on above: Insurance Authorizat ion ([employer] 140MG/ML auto-injectors/) Start: 10-17-2023 Telephone encounter Shanice Hallman MD Work Phone: Cardiology Comment on above: Received Outside Med ical Records (EDGAR ECHO REPORT) Received Outside Med ical Records (CD IMAGES [facility]) Start: 10-10-2023 End: 10-10-2023 Patient encounter procedure Shanice Larsen MD Work Phone: Cardiology Comment on above: Coronary artery dise ase of telida artery of telida heart with stable angina pectoris (HCC) (Primary Dx); SOB (shortness of breath); PAD (peripheral artery disease) (HCC); TIA (transient ischemic attack) Start: 10-10-2023 End: 10-10-2023 ambulatory NANO NGUYEN Facility:[facility] Start: 10-10-2023 End: 10-10-2023 Subsequent hospital visit by physician Ct 2 Main Qb (I-Stat) Radiology Comment on above: Lung nodule [R91.1] Start: 09-27-2023 ambulatory [facility] Start: 09-26-2023 End: 09-28-2023 Emergency department patient visit [facility] Start: 09-23-2023 Telephone encounter Papa Perez i, MD Work Phone: Vascular Surg Dept Comment on above: dental clearance Start: 09-12-2023 E-mail encounter jose titus caregiver Daljit Pina SEED YEAST OPERATOR.MARSHMALLOW MAKER Work Phone: [facility] Start: 09-12-2023 Follow-up encounter Daljit Whitney er SEED YEAST OPERATOR.MARSHMALLOW MAKER Work Phone: Radiology Comment on above: Actionable Findings Follow-up Start: 09-03-2023 ambulatory Anna Perea RN [facility] Comment on above: 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 /) Start: 08-07-2023 End: 08-07-2023 Patient encounter procedure Dania Cruz SEED YEAST OPERATOR.MARSHMALLOW MAKER Work Phone: Cardiothoracic Comment on above: S/P CABG (coronary a rtery bypass graft) (Primary Dx); PVD (peripheral vascular disease) (HCC) Start: 08-07-2023 End: 08-07-2023 ambulatory NANO NGUYEN Facility:[facility] Start: 08-07-2023 End: 08-07-2023 Subsequent hospital [...] Evaluation and management of inpatient NANO NGUYEN Facility:[facility] Start: 07-22-2023 Patient encounter status Alma Rosa Suarez MD Work Phone: [facility] Start: 07-17-2023 End: 07-17-2023 ambulatory NANO NGUYEN Facility:[facility] Start: 07-17-2023 End: 07-17-2023 ambulatory WILLEM SUAREZ Facility:[facility] Start: 07-08-2023 End: 07-08-2023 ambulatory GLORIA CALLAHAN Facility:[facility] Start: 07-02-2023 End: 07-02-2023 ambulatory FRANTZ PEREZ Facility:[facility] Start: 07-02-2023 End: 07-02-2023 ambulatory WILLEM SUAREZ Facility:[facility] Start: 07-02-2023 End: 07-02-2023 ambulatory PAPA SANTIAGO Facility:[facility] Start: 06-14-2023 End: 06-14-2023 ambulatory WILLEM SUAREZ Facility:[facility] Start: 05-30-2023 Telephone encounter Willem marrufo MD Work Phone: Cardiothoracic Comment on above: Insurance Authorizat ion Referral Information ; New Patient Evaluation Start: 05-28-2023 End: 05-28-2023 ambulatory SHANICE LARSEN Facility:[facility] Start: 05-28-2023 End: 05-28-2023 Patient encounter procedure Shanice Larsen MD Work Phone: Cardiology Comment on above: SOB (shortness of br eath) (Primary Dx); Coronary artery disease involving telida coronary artery of telida heart without angina pectoris; PAD (peripheral artery disease) (HCC) Start: 05-28-2023 End: 05-28-2023 ambulatory SHANICE LARSEN Facility:[facility] Start: 05-13-2023 End: 05-13-2023 ambulatory Shanice Larsen MD Work Phone: Cardiology Comment on above: Coronary artery dise ase involving telida coronary artery of telida heart without angina pectoris (Primary Dx); Preop cardiovascular exam; Morbid obesity (HCC) Start: 05-13-2023 End: 05-13-2023 Patient encounter status Shanice Larsen MD Work Phone: [facility] Work Phone: Start: 05-13-2023 End: 05-13-2023 Telemedicine consultation with patient Shanice Larsen MD Work Phone: [facility] Start: 04-26-2023 Orders Only Shanice Hinton i, MD Work Phone: Cardiology Comment on above: Coronary artery dise ase involving telida coronary artery without angina pectoris, unspecified whether telida or transplanted heart (Primary Dx) Start: 04-08-2023 Orders Only Pamela Laws APRN.CNP Work Phone: Cardiology Comment on above: Abnormal stress test (Primary Dx) Start: 04-03-2023 End: 04-03-2023 Patient encounter procedure Shanice Larsen MD Work Phone: Cardiology Comment on above: Abnormal stress test (Primary Dx) Start: 03-26-2023 End: 03-26-2023 ambulatory Patrizia Melendrez Facility:[facility] Start: 03-26-2023 Telephone encounter Patrizia HOFF G Cardiology Start: 03-26-2023 End: 03-26-2023 Admission to same day surgery center MD Nano Nguyen Work Phone: [facility] Work Phone: Start: 03-26-2023 End: 03-26-2023 ambulatory MD Nano Nguyen Work Phone: [facility] Work Phone: Start: 03-25-2023 End: 03-25-2023 ambulatory Patrizia Melendrez Other [employer] Other Start: 03-25-2023 Telephone encounter Patrizia HOFF G Cardiology Start: 03-20-2023 End: 03-20-2023 ambulatory Patrizia Melendrez Facility:[facility] Start: 03-20-2023 End: 03-20-2023 Patient encounter procedure MD Nano Nguyen Work Phone: [facility]Pre-Surgical Testing Work Phone: Start: 03-20-2023 End: 03-20-2023 ambulatory MD Nano Nguyen Work Phone: [facility] Work Phone: Start: 03-20-2023 Office outpatient ne w 45 minutes Patrizia Melendrez [facility] Start: 03-13-2023 Message Nano Nguyen Work Phone: [facility] 250 DO Work Phone: Start: 11-28-2022 Message Nano Nguyen Work Phone: [facility] 600 DO Work Phone: Start: 10-01-2022 End: 10-02-[address] NANO NGUYEN . Facility:[facility] Start: 09-04-2022 End: 09-05-[address] NANO NGUYEN . Facility:[facility] Start: 08-22-2022 End: 08-23-[address] STEPAN SAM Facility:[facility] Start: 07-19-2022 Office consultation new/estab patient 60 min Nano Nguyen Work Phone: [facility] 250 DO Work Phone: Start: 07-19-2022 ambulatory Nano Nguyen Fac ility: Start: 07-02-2022 End: 07-03-[address] NANO NGUYEN . Facility:[facility] Start: 05-30-2022 End: 05-31-[address] NANO NGUYEN . Facility:[facility] Start: 05-29-2022 Encounter for genera l adult medical examination without abnormal findings ANNA IRBY [facility] Start: 05-28-2022 End: 05-29-[address] NANO [...] 01-29-2022 ambulatory JOE HUBBARD Facility:[facility] Nano Nguyen Work Phone: [facility] 250 DO Work Phone: Procedures Date Procedure Procedure Detail Performing Clinician Start: 08-07-2023 Radiologic exam ches t 2 views Willem Suarez MD Work Phone: Start: 07-17-2023 Antibody screen NANO NGUYEN Comment on above: Order Comment: Speci men Type: BLOOD SPECIMENOrdering Facility: [facility] Address: [address] [place] [address] Performed By: #### T [id number] ####[facility] MAIN BLOOD BANKCLIA [id number] [facility] [id number] [address] [place] Start: 05-28-2023 Echocardiography [...] CABG (coronary artery bypass graft) Anddillon Cruz APRN.MARSHMALLOW MAKER Work Phone: Ligation of fallopian tube D ouglas Sara Nguyen Work Phone: Release of trigger finger Do ugcarlos enrique Nguyen Work Phone: Tonsillectomy and adenoidectomy Nano Nguyen Work Phone: Plan of Treatment Date Care Activity Detail Author Start: 05-28-2028 Lipid 1996 panel - S radha or Plasma Lipid Screening [facility] Start: 05-28-2026 Diabetes Screening Diabetes Screenin g [facility] Start: 04-03-2026 Diabetes Screening Diabetes Screenin g [facility] Start: 02-17-2025 Screening for malign ant neoplasm of lung Lung Cancer Screening [facility] Start: 01-15-2025 BP Controlled (<130/80) BP Controlle d (<130/80) [facility] Start: 10-09-2024 BP Controlled (<130/80) BP Controlle d (<130/80) [facility] Start: 10-09-2024 Screening for malign ant neoplasm of lung Lung Cancer Screening [facility] Start: 08-07-2024 BP Controlled (<130/80) BP Controlle d (<130/80) [facility] Start: 07-31-2024 End: 07-31-2024 Patient encounter procedure Vascular Surgery Comment on above: DEYANIRA CTA A/P w/ Runoff 3M FOLLOW UP W/ CTA A/P W/ RUNOFF, DEYANIRA Start: 07-02-2024 BP Controlled (<130/80) BP Controlle d (<130/80) [facility] Start: 05-28-2024 Hepatitis B surface antibody level LDL Cholesterol [facility] Start: 04-28-2024 End: 04-28-2024 Patient encounter procedure 04/28/2024 10:30 AM EST Office Visit Vascular Surg Dept [address] [id number] Papa Santiago MD [address] [id number] 3 month follow-up no testing Vascular Surg Dept Comment on above: 3 month follow-up no testing Start: 04-16-2024 End: 04-16-2024 Patient encounter procedure Radiology Comment on above: Lung nodule Lung nodule/6 MONTH FU/Staff Message Start: 04-07-2024 End: 04-07-2024 ambulatory 04/07/2024 8:30 AM EDT [facility] [address] [phone] Shanice Larsen MD [address] [place] [address] dx: 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 Radiology Comment on above: Coronary artery dise ase of telida artery of telida heart with stable angina pect... 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 Cardiology Comment on above: Coronary artery dise ase of telida artery of telida heart with stable angina pect... Start: 01-16-2024 End: 01-16-2024 ambulatory 01/16/2024 10:45 AM EDT Results Only Cardiology [address] [phone] Coronary artery disease of telida artery of telida heart with stable angina pect... Cardiology Comment on above: Coronary artery dise ase of telida artery of telida heart with stable angina pect... Start: 01-15-2024 Hemoglobin A1c measurement HbA1C [facility] Start: 10-21-2023 End: 10-21-2023 Follow-up encounter 10/21/2023 3:30 PM EDT [facility] Pulmonary Medicine [address] [place] [address] Gloria Callahan MD [address] [place] [address] 3 Month Follow up Pulmonary Medicine Comment on above: 3 Month Follow up Start: 08-01-2023 End: 10-31-2023 CBC panel - Blood by Automated count CBC Lab Routine Surgery follow-up Expected: 08/01/2023, Expires: 10/31/2023 [facility] Work Phone: Comment on above: Expected: 08/01/2023 , Expires: 10/31/2023 Start: 08-01-2023 End: 10-31-2023 Comprehensive metabolic 2000 panel - Serum or Plasma COMP METABOLIC PANEL Lab Routine Surgery follow-up Expected: 08/01/2023, Expires: 10/31/2023 [facility] Work Phone: Comment on above: Expected: 08/01/2023 , Expires: 10/31/2023 Start: 06-24-2023 Advance Directive Discussion Advance Directive Discussion [facility] Start: 03-26-2023 End: 03-26-2023 [facility] Start: 02-22-2023 Covid-19 Vaccine ( season) Covid-19 Vaccine () [facility] Start: 02-22-2023 Influenza vaccination Influenza Vacc ine (#1) [facility] Start: 2023 Advance Directive Discussion Advance Directive Discussion [facility] Start: 2023 Bone Density Screening Bone Density Screening [facility] Start: 2023 Screening for osteoporosis Bone Density Screening [facility] Start: 06-24-2022 Depression Assessment Depression Ass essment [facility] Start: 2018 RSV Vaccine (1 - 1-d ose 60+ series) RSV Vaccine (1 - 1-dose 60+ series) [facility] Start: 01-24-2008 Influenza vaccination Lung Cancer [facility] Start: 01-24-2008 Screening for malign ant neoplasm of lung Lung Cancer Screening [facility] Start: 01-24-2008 Shingrix Vaccine (1 of 2) Hernandez grix Vaccine (1 of 2) [facility] Start: 2003 Cologuard (FIT-DNA) Cologuard (FIT-D NA) [facility] Start: 2003 Colonoscopy Colonoscopy [facility] Start: 2003 Colorectal Cancer Screening Colorectal Cancer Screening [facility] Start: [address] COLONOGRAPHY [facility] Start: 2003 Fecal Occult Blood Fecal Occult Bloo d [facility] Start: 2003 Lipid 1996 panel - S radha or Plasma Lipid Screening [facility] Start: 2003 Screening for malign ant neoplasm of colon [facility] Start: 2003 SIGMOIDOSCOPY SIGMOIDOSCOPY [facility] Start: 1998 Mammography Mammogram Screening [facility] Start: 1998 Screening for malign ant neoplasm of breast Mammogram Screening [facility] Start: 1977 Urine microalbumin profile DTaP,Tdap,Td Vaccine (1 - Tdap) [facility] Start: 01-24-1976 Annual PCP Team [place] [employer] carl Disease Visit Annual PCP Team Chronic Disease Visit [facility] Start: 01-24-1976 BP Controlled (<130/80) BP Controlle d (<130/80) [facility] Start: 01-24-1976 Hepatitis C Screening Hepatitis C [facility] Start: 01-24-1976 HIV Screening HIV Screening [facility] Start: 01-24-1968 Diabetic foot examination Diabetic F oot Exam [facility] Start: 01-24-1968 Glaucoma screening Dilated Retinal E xam [facility] Start: 01-24-1968 Hepatitis B screening Urine Al bumin:Creatinine Ratio [facility] Start: 01-24-1964 Pneumococcal Vaccine : 65+ (1 - PCV) Pneumococcal Vaccine: 65+ (1 - PCV) [facility] CARDIAC [place] BIC Routine Coronary artery disease involving telida coronary artery of telida heart without angina pectoris Ordered: 09/03/2023 [facility] Work Phone: Comment on above: Ordered: 09/03/2023 CARDIAC RE[place] BIC Routine 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) SOB (shortness of breath) PAD (peripheral artery disease) ([facility]) TIA (transient ischemic attack) Ordered: 10/10/2023 [facility] Work Phone: Comment on above: Ordered: 10/10/2023 CT Chest WO contrast CT CHEST WO IVCON Radiology Routine Lung nodule 10/10/2023 10:41 AM EDT [facility] Work Phone: End: 11-19-2024 CT Chest WO contrast CT CHEST WO IVCON Radiology Routine Lung nodule 1 Occurrences starting 10/21/2023 until 11/19/2024 [facility] Work Phone: Comment on above: 1 Occurrences starti ng 10/21/2023 until 11/19/2024 End: 02-14-2025 CT Chest WO contrast CT CHEST WO IVCON Radiology Routine 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) PAD (peripheral artery disease) (HCC) Primary hypertension Hyperlipidemia, unspecified hyperlipidemia type 1 Occurrences starting 01/16/2024 until 02/14/2025 [facility] Comment on above: 1 Occurrences starti ng 01/16/2024 until 02/14/2025 CT Chest WO contrast CT CHEST WO IVCON Radiology Routine 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) PAD (peripheral artery disease) (HCC) Primary hypertension Hyperlipidemia, unspecified hyperlipidemia type 02/18/2024 2:09 PM EDT [facility] Work Phone: End: 07-02-2024 Ct thorax w/o contrast material CT CHEST CARDIAC WO IVCON Radiology Routine 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) PAD (peripheral artery disease) (HCC) S/P insertion of iliac artery stent Current smoker Primary hypertension Coronary angioplasty status 1 Occurrences starting 06/03/2023 until 07/02/2024 [facility] Work Phone: Comment on above: 1 Occurrences starti ng 06/03/2023 until 07/02/2024 End: 05-28-2025 CTA Abdominal, Pelvis and Lower extremity vessels W contrast IV CTA ABD/PEL LOWER EXTREM WO/W IVCON Radiology Routine Peripheral vascular disease (HCC) Diminished pulses in lower extremity PAD (peripheral artery disease) (HCC) 1 Occurrences starting 04/28/2024 until 05/28/2025 [facility] Comment on above: 1 Occurrences starti ng 04/28/2024 until 05/28/2025 End: 04-08-2024 ECG COMPLETE ECG COMPLETE ECG Routine Abnormal stress test 1 Occurrences starting 04/08/2023 until 04/08/2024 [facility] Work Phone: Comment on above: 1 Occurrences starti ng 04/08/2023 until 04/08/2024 End: 08-01-2024 ECG COMPLETE ECG COMPLETE ECG Routine Surgery follow-up 1 Occurrences starting 08/01/2023 until 08/01/2024 [facility] Work Phone: Comment on above: 1 Occurrences starti ng 08/01/2023 until 08/01/2024 End: 10-09-2024 ECG COMPLETE ECG COMPLETE ECG Routine 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) SOB (shortness of breath) PAD (peripheral artery disease) (HCC) TIA (transient ischemic attack) 1 Occurrences starting 10/10/2023 until 10/09/2024 [facility] Work Phone: Comment on above: 1 Occurrences starti ng 10/10/2023 until 10/09/2024 End: 01-15-2025 ECG COMPLETE ECG COMPLETE ECG Routine 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) PAD (peripheral artery disease) (HCC) Primary hypertension Hyperlipidemia, unspecified hyperlipidemia type 1 Occurrences starting 01/16/2024 until 01/15/2025 [facility] Comment on above: 1 Occurrences starti ng 01/16/2024 until 01/15/2025 End: 04-08-2025 ECG COMPLETE ECG COMPLETE ECG Routine 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) 1 Occurrences starting 04/08/2024 until 04/08/2025 [facility] Work Phone: Comment on above: 1 Occurrences starti ng 04/08/2024 until 04/08/2025 End: 04-03-2024 Echocardiography ECHO Cardiology Routine Abnormal stress test 1 Occurrences starting 04/03/2023 until 04/03/2024 [facility] Work Phone: Comment on above: 1 Occurrences starti ng 04/03/2023 until 04/03/2024 End: 07-02-2024 LUNG DIFFUSION CAPACITY (DLCO) LUNG DIFFUSION CAPACITY ([facility]CO) PFT Routine 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) PAD (peripheral artery disease) ([facility]) S/P insertion of iliac artery stent Current smoker Primary hypertension Coronary angioplasty status 1 Occurrences starting 06/03/2023 until 07/02/2024 [facility] Work Phone: Comment on above: 1 Occurrences starti ng 06/03/2023 until 07/02/2024 End: 07-02-2024 SPIROMETRY BASELINE ONLY SPIROMETRY BASELINE ONLY PFT Routine 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) PAD (peripheral artery disease) ([facility]) S/P insertion of iliac artery stent Current smoker Primary hypertension Coronary angioplasty status 1 Occurrences starting 06/03/2023 until 07/02/2024 [facility] Work Phone: Comment on above: 1 Occurrences starti ng 06/03/2023 until 07/02/2024 End: 06-03-2024 US CAROTID ARTERIES [facility] US CAROTID ARTERIES [facility] Vascular Lab Routine 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) PAD (peripheral artery disease) ([facility]) S/P insertion of iliac artery stent Current smoker Primary hypertension Coronary angioplasty status 1 Occurrences starting 06/03/2023 until 06/03/2024 [facility] Work Phone: Comment on above: 1 Occurrences starti ng 06/03/2023 until 06/03/2024 End: 06-03-2024 US LEG VEIN MAP [facility] US LEG VEIN MAP [facility] Vascular Lab Routine Coronary artery disease involving telida coronary artery of telida heart with angina pectoris ([facility]) PAD (peripheral artery disease) ([facility]) S/P insertion of iliac artery stent Current smoker Primary hypertension Coronary angioplasty status 1 Occurrences starting 06/03/2023 until 06/03/2024 [facility] Work Phone: Comment on above: 1 Occurrences starti ng 06/03/2023 until 06/03/2024 End: 01-02-2025 US Lower extremity artery - bilateral PVR LEG [facility] Vascular Lab Routine 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, bilateral legs ([facility]) 1 Occurrences starting 01/03/2024 until 01/02/2025 [facility] Work Phone: Comment on above: 1 Occurrences starti ng 01/03/2024 until 01/02/2025 End: 06-03-2024 US MAMMARY ARTERY [facility] US MAMMARY ARTERY [facility] Vascular Lab Routine 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) PAD (peripheral artery disease) ([facility]) S/P insertion of iliac artery stent Current smoker Primary hypertension Coronary angioplasty status 1 Occurrences starting 06/03/2023 until 06/03/2024 [facility] Work Phone: Comment on above: 1 Occurrences starti ng 06/03/2023 until 06/03/2024 End: 06-03-2024 US RADIAL ARTERY MAP [facility] US RADIAL ARTERY MAP [facility] Vascular Lab Routine 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) PAD (peripheral artery disease) ([facility]) S/P insertion of iliac artery stent Current smoker Primary hypertension Coronary angioplasty status 1 Occurrences starting 06/03/2023 until 06/03/2024 [facility] Work Phone: Comment on above: 1 Occurrences starti ng 06/03/2023 until 06/03/2024 End: 04-28-2025 US.doppler Extremity arteries - bilateral for physiologic artery study PVR ANK PRESS [facility] Vascular Lab Routine Peripheral vascular disease ([facility]) Diminished pulses in lower extremity PAD (peripheral artery disease) ([facility]) 1 Occurrences starting 04/28/2024 until 04/28/2025 [facility] Work Phone: Comment on above: 1 Occurrences starti ng 04/28/2024 until 04/28/2025 End: 08-30-2024 XR Chest 2 Views XR CHEST 2V FRONTAL/LAT Radiology Routine Surgery follow-up 1 Occurrences starting 08/01/2023 until 08/30/2024 [facility] Work Phone: Comment on above: 1 Occurrences starti ng 08/01/2023 until 08/30/2024 [facility] Immunizations Immunization Date Immunization Notes Care Provider Berta espino 05-29-2023 influenza virus vacc ine, unspecified formulation Nano Nguyen MD Work Phone: [facility] 04-10-2022 influenza, injectabl e, quadrivalent, contains preservative Nano Nguyen Work Phone: [facility] 250 DO Work Phone: 04-10-2022 influenza virus vacc ine, unspecified formulation Shanice Larsen MD Work Phone: [facility] 05-24-2021 [place] COVID-19 Vac cine 0.5 ML Intramuscular Suspension Nano Nguyen Work Phone: [facility] 11-11-2020 [place] COVID-19 Vac cine 0.5 ML Intramuscular Suspension Nano Nguyen Work Phone: [facility] 08-13-2020 zoster vaccine recombinant Nano Nguyen Work Phone: [facility] 250 DO Work Phone: 06-11-2020 zoster vaccine recombinant Nano M Wendy Work Phone: [facility] 250 DO Work Phone: Payers Date Payer Category Payer Unknown [id number] 2023 Medicaid [place] [id number] 2023-Present [phone] [address] [place] [address] Medicaid [id number] 2023 Private Health Insurance [id number] 2023 Self-pay 2023 Medicare [id number] 2023 Medicare [id number] 1959 Unknown [id number] 1958 Unknown [id number] 2.16.840.1.717382.3.579.2. 356 1958 Unknown [id number] 2.16.840.1.618708.3.579.2. 593 1958 Unknown [id number] 2.16.840.1.044611.3.579.2. 593 1958 Unknown [id number] 2.16.840.1.748086.3.579.2. 593 1958 Unknown [id number] 2.16.840.1.688282.3.579.2. 593 1958 Unknown [id number] 2.16.840.1.280123.3.579.2. 593 1958 Unknown [id number] 2.16.840.1.843746.3.579.2. 593 1958 Unknown [id number] 2.16.840.1.476605.3.579.2. 593 1958 Unknown [id number] 2.16.840.1.995164.3.579.2. 593 1958 Unknown [id number] 2.16.840.1.165979.3.579.2. 593 1958 Unknown [id number] 2.16.840.1.715895.3.579.2. 593 1958 Unknown [id number] 2.16.840.1.777396.3.579.2. 593 1958 Unknown [id number] 2.16.840.1.817548.3.579.2. 593 1958 Unknown [id number] 2.16.840.1.090040.3.579.2. 593 1958 Unknown [id number] 2.16.840.1.431264.3.579.2. 1286 1958 Unknown [id number] 2.16.840.1.450125.3.579.2. 1286 1958 Unknown [id number] 2.16.840.1.760259.3.579.2. 1286 1958 Unknown [id number] 2.16.840.1.613384.3.579.2. 1286 1958 Unknown [id number] 2.16.840.1.126417.3.579.2. 1259 Private Health Insurance [id number] Unknown [facility] Unknown [id number] 2.16.840.1.747918.3.579.2. 531 Unknown [id number] 2.16.840.1.684123.3.579.2. 531 Social History Date Type Detail Facility Start: 04-03-2023 End: 01-28-2024 Social alcohol use Social alcohol use -[facility] 250 DO Work Phone: Comment on above: gummies, and pot; Start: 03-20-2023 End: 03-26-2023 Tobacco smoking status NHIS Smoker (finding) [facility] Start: 1960 Sex Assigned At Female F [facility] Start: 04-03-2023 End: 01-28-2024 Sex Assigned At [facility] Other Start: 04-03-2023 Tobacco smoking status NHIS Smokes tobacco daily [facility] History of tobacco use Cigarette Smoker [facility] Start: 04-03-2023 Tobacco use and exposure Smokeless tobacco non-user [facility] Start: 04-03-2023 End: 01-28-2024 Alcohol intake Current drinker of alcohol (finding) [facility] National Score (1-100), lower number is lower risk 91 [facility] Start: 1960 Sex Assigned At Not on file C [facility] Medical Equipment Procedure Code Equipment Code Equipment Original Text Equipment Identifier Dates [place] Thk1.65mm P tfe 4x.5in Cardiovascular Sterile - [id number] Start: 07-29-2023 Goals Date Patient Goal Desired Activity /State Personal health goal Personal health goal Clinical Notes 05-10-2022 to 04-28-2024 Papa Santiago MD - 04/28/2024 2:18 PM Shanice Dueñas MD - 04/07/2024 8:30 AM Christel Thao - 02/26/2024 10:09 AM EDTTelephone Encounter - Hilary Blackman RN - 02/25/2024 6:02 PM EDT Note Date & Type Note Facility 04-28-2024 Note [facility] 04-28-2024 History of Presen t illness Narrative Images from the original note were not included. [facility] DEPARTMENT OF VASCULAR SURGERY OUTPATIENT VISIT DATE [...] PAST MEDICAL HISTORY Diagnosis Date Atherosclerosis of telida arteries of extremity with intermittent claudication (HCC) 06/14/2023 CAD (coronary artery disease) 06/14/2023 Carpal tunnel syndrome Cataract Coronary atherosclerosis Dental disease Depression Diabetes mellitus type 2 with peripheral artery disease (HCC) 06/14/2023 Essential hypertension 06/14/2023 Family hx-malignancy Former smoker Fractures Generalized anxiety disorder Hematoma HTN (hypertension) Injury of back Lung nodules Obesity PAD (peripheral artery disease) ([facility]) Visual impairment PAST SURGICAL HISTORY Procedure Laterality [...] TIME: 2:18 PM documented in this encounter [facility] 04-07-2024 History of Presen t illness Narrative [facility] Department of Cardiovascular Medicine VIRTUAL VIDEO VISIT [...] visit. Either the patient or their legal truck sales representative has been informed of the [...] PAST MEDICAL HISTORY Diagnosis Date Atherosclerosis of telida arteries of extremity with intermittent claudication (HCC) [...] vessels: CABG changes are noted. Severe multivessel telida coronary artery calcifications noted. Atherosclerotic calcifications of [...] 2024 8:16 PM documented in this encounter [facility] 04-07-2024 Note [facility] 02-26-2024 History of Presen t illness Narrative Follow Up Diagnosis: Lung Nodule Recommendation: CT Scan Follow up Date: 02/15/2025 Follow-Up Scheduled: No Pulmonary Follow-Up Type: Lung Nodule Surveillance Enrolled in Lung Nodule program: Yes Lung Nodule Program Location: [facility] documented in this encounter [facility] 02-26-2024 Note [facility] 02-25-2024 Telephone encounter Note 02/25/[address] Eric carter. Hilary Blackman RN [facility] 02-25-2024 Miscellaneous Notes 02/25/[address] Eric Blackman RN [facility] documented in this encounter [facility] 02-25-2024 Telephone encounter Note 02/25/24: Dr. Callahan requests patient be called with results of Ct Chest done 02/18/24: CT chest reviewed. Rt lung nodule opacity unchanged since 05/2023. Recommend continued monitoring -repeat CT imaging in 1 year. Called patient & LVM and sent MyC. Hilary Blackman RN [facility] 02-25-2024 Miscellaneous Notes 02/25/24: Dr. Callahan requests patient be called with results of Ct Chest done 02/18/24: CT chest reviewed. Rt lung nodule opacity unchanged since 05/2023. Recommend continued monitoring -repeat CT imaging in 1 year. Called patient & LVM and sent MyC. Hilary Blackman RN [facility] documented in this encounter [facility] 02-18-2024 History of Presen t illness [...] PATIENT PRESENTS WITH AN IMPLANTABLE OR ATTACHED HOT TAR ROOFER HELPER: No RADIOLOGY DEPARTMENT: CT; Exam(s) Completed: Chest PERIPHERAL IV DATA: Not applicable SIGNED BY: RT Mitch(Alyssa) February 18, 2024 2:05 PM documented in this encounter [facility] 02-18-2024 Note [facility] 02-04-2024 History of Presen t illness Narrative QOL Call Tracking Documentation Follow-Up Type: Phone Call Call Attempt: 1st Attempt Call Status: Complete documented in this encounter [facility] 02-04-2024 Note HNO ID: [id number] Author: ?, ?, ? Service: ? Author Type: ? Type: Progress Notes Filed: 02/04/2024 12:53 Note Text: QOL Call Tracking Documentation Follow-Up Type: Phone Call Call Attempt: 1st Attempt Call Status: Complete [facility] 01-28-2024 Note [facility] 01-28-2024 History of Presen t illness Narrative Images from the original note were not included. [facility] DEPARTMENT OF VASCULAR SURGERY OUTPATIENT VISIT DATE [...] spirits. PAST MEDICAL HISTORY 06/14/2023: Atherosclerosis of telida arteries of extremity with intermittent claudication (HCC) [...] Obesity No date: PAD (peripheral artery disease) ([facility]) No date: Visual impairment PAST SURGICAL HISTORY [...] TIME: 12:33 PM documented in this encounter [facility] 01-16-2024 History of Presen t illness Narrative Images from the original note were not included. [facility] Department of Cardiovascular Medicine SECTION OF CLINICAL CARDIOLOGY OUTPATIENT VISIT DATE January 16, 2024 OUTPATIENT VISIT TYPE ESTABLISHED PRIMARY CARE PHYSICIAN: Nano Nguyen [address] [place] [address] CHIEF COMPLAINT: Cv management HISTORY OF PRESENT [...] PAST MEDICAL HISTORY Diagnosis Date Atherosclerosis of telida arteries of extremity with intermittent claudication (HCC) 06/14/2023 CAD (coronary artery disease) 06/14/2023 Carpal tunnel syndrome Cataract Coronary atherosclerosis Dental disease Depression Diabetes mellitus type 2 with peripheral artery disease (HCC) 06/14/2023 Essential hypertension 06/14/2023 Family hx-malignancy Former smoker Fractures Generalized anxiety disorder Hematoma HTN (hypertension) Injury of back Lung nodules Obesity PAD (peripheral artery disease) ([facility]) Visual impairment PAST SURGICAL HISTORY Procedure Laterality [...] INFORMATION: Shanice Larsen MD January 16, 2024 [address] [place] [address] Scrlaura Attestation: By signing my name below, [...] 2024 12:17 PM documented in this encounter [facility] 01-16-2024 Note [facility] 01-01-2024 Telephone encounter Note Reason for call: Ms Quezada called and she would like to schedule an appointment with DR Qiana Neves and cell number [phone] Diagnosis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, bilateral legs Kind Regards Dunia [facility] 01-01-2024 Miscellaneous Notes Reason for call: Ms Quezada called and she would like to schedule an appointment with DR Qiana Neves and cell number [phone] Diagnosis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, bilateral legs Kind Regards Dunia documented in this encounter [facility] 10-30-2023 Note [facility] 10-30-2023 History of Presen t illness Narrative QOL Call Tracking Documentation Follow-Up Type: Phone Call Call Attempt: 1st Attempt Call Status: Patient will complete in MyChart documented in this encounter [facility] 10-30-2023 Telephone encounter Note Attempted to call patient, no answer. Left voicemail asking patient to check mychart as I will send there. Mary Franks RN [facility] 10-30-2023 Miscellaneous Notes Attempted to call [...] doses. October 25, 2023 Patient Contact Number: [phone] (home) Patient last seen within the last [...] Yes Lizzeth Kong documented in this encounter [facility] 10-29-2023 Telephone encounter Note Per dr larsen, yes can be on both. Suzie does not see a reason to separate but can separate days of the week if want. Can take motrin intermittently but not regular doses. [facility] 10-25-2023 Telephone encounter Note October 25, 2023 Patient Contact Number: [phone] (home) Patient last seen within the last [...] next three business days. Yes Lizzeth Kong [facility] 10-24-2023 Note [facility] 10-24-2023 History of Presen t illness Narrative Follow Up Diagnosis: Lung Nodule Recommendation: CT Scan Follow up Date: 04/16/2024 Follow-Up Scheduled: Yes Pulmonary Follow-Up Type: Lung Nodule Surveillance Enrolled in Lung Nodule program: Yes Lung Nodule Program Location: [facility] documented in this encounter [facility] 10-21-2023 Evaluation note Diagnosis Lung nodule- [...] with smoking cessation documented in this encounter [facility]04[facility]29[facility] History of Present illness Narrative* Gloria Callahan MD - 10/21/2023 3:52 PM EDT Images from the original note were not included. [facility] INCIDENTAL LUNG NODULE PROGRAM ([facility] Follow-Up) Assessment / Plan 63 year old [...] Lung Nodule Surveillance Lung Nodule Program Location: [facility] Medical Decision Making: Problems: Low: Stable chronic [...] visit. Either the patient or their legal truck sales representative has been informed of the [...] PAST MEDICAL HISTORY Diagnosis Date Atherosclerosis of telida arteries of extremity with intermittent claudication (HCC) [...] DATE OF EXAM: Oct 10 2023 10:41AM [facility] [place] - CT CHEST WO IVCON / [...] is normal in caliber. Moderate to severe telida coronary artery atherosclerotic calcifications are present, however, [...] given small size. 4. No thoracic lymphadenopathy. 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 ATS/ERS acceptability and repeatability [...] MD Pulmonary & Critical Care Medicine [facility] October 21, 2023 3:55 PM documented [facility] encounter[facility]04-[facility]24 Telephone encounter Note * Telephone Encounter - Shanta Shook RN - 10/18/2023 2:12 PM EDT Ambulatory Pharmacy Prior Authorization Note Provider Intervention Required?: No- Pharmacy completed on your behalf. Rx Plan: In [facility]: Repatha SureClick 140MG/ML auto-injectors Cover My Meds Aguayo: [id number] Determination: Approved Prior Authorization/Case #: n/a Prior [...] refills. Prescriptions will now be processed through [facility] Home Delivery Pharmacy for determination of next steps. For questions relating to this submission, please contact [facility] at [phone] [facility] Work Phone: 1(183) 233-318904-26-2024 Miscellaneous Notes* Telephone Encounter - Shanta Shook RN - 10/18/2023 2:12 PM EDT Ambulatory Pharmacy Prior Authorization Note Provider Intervention Required?: No- Pharmacy completed on your behalf. Rx Plan: [facility]: Repatha SureClick 140MG/ML auto-injectors Cover My Meds Aguayo: [id number] Determination: Approved Prior Authorization/Case #: n/a Prior [...] refills. Prescriptions will now be processed through [facility] Home Delivery Pharmacy for determination of next steps. For questions relating to this submission, please contact [facility] at [phone] documented in this encounterPome[facility] Hospital04-25-2024 Telephone encounter Note * Telephone Encounter - Lizzeth Kong - 10/17/2023 2:12 PM EDT ADMIN UPLOADED OUTSIDE CARDIAC IMAGES TO [facility] CTA HEAD/NECK CT ANGIO HEAD CT ANGIO NECK CA ECHO DOPPLER Lizzeth Kong October 17, 2023 2:16 PM [facility]04-25-2024 Miscellaneous Notes* Telephone Encounter - Lizzeth Kong - 10/17/2023 2:12 PM EDT ADMIN UPLOADED OUTSIDE CARDIAC IMAGES TO [facility] CTA HEAD/NECK CT ANGIO HEAD CT ANGIO NECK CA ECHO DOPPLER Lizzeth Kong October 17, 2023 2:16 PM documented in this encounterP[facility]04-25-2024 Telephone encounter Note * Telephone Encounter - Lizzeth Kong - 10/17/2023 1:36 PM EDT ADMIN UPLOADED OUTSIDE CARDIAC RECORDS TO [facility] ECHO REPORT Lizzeth Luann October 17, 2023 1:37 PM [facility]04-25-2024 Miscellaneous Notes* Telephone Encounter - Lizzeth Kong - 10/17/2023 1:36 PM EDT ADMIN UPLOADED OUTSIDE CARDIAC RECORDS TO [facility] ECHO REPORT Lizzeth Luann October 17, 2023 1:37 PM documented in this encounterP[facility]04-18-2024 History of Present illness Narrative* Shanice Larsen MD - 10/10/2023 12:30 PM EDT Images from the original note were not included. [facility] Department of Cardiovascular Medicine SECTION OF CLINICAL CARDIOLOGY OUTPATIENT VISIT DATE October 10, 2023 OUTPATIENT VISIT TYPE ESTABLISHED PRIMARY CARE PHYSICIAN: Nano Nguyen [facility] [place] [address] CHIEF COMPLAINT: CV management HISTORY OF PRESENT ILLNESS: Ms. Quzeada is a 63 year old female who [...] PAST MEDICAL HISTORY Diagnosis Date Atherosclerosis of telida arteries of extremity with intermittent claudication (HCC) [...] INFORMATION: Shanice Larsen MD October 10, 2023 [address] [place] [address] Scribe Attestation: By signing my name below, [...] 11, 2023 6:00 PM documented in this encounterP[facility]04-18-2024 [facility] History of Present illness Narrative* Yojana Liang, [...] PATIENT PRESENTS WITH AN IMPLANTABLE OR ATTACHED HOT TAR ROOFER HELPER: No RADIOLOGY DEPARTMENT: CT; Exam(s) Completed: Chest PERIPHERAL IV DATA: Not applicable SIGNED BY: RT Sepideh(R) October 10, 2023 10:36 AM documented in this encounterP[facility] Hospital04-01-2024 Miscellaneous Notes* Telephone Encounter - Anna Richmond - 09/23/2023 11:34 AM EDT Yeimy from [facility] - Dr. Luciano called and wanted to know how long should it be for the patient to be cleared after surgery for the patient to get her teeth cleaned. It's been 8 weeks and she thought it would be longer than that. Yeimy can be reached at [phone] documented in this encounterP[facility] Hospital03-12-2024 History of Present illness Narrative* Anna Perea RN - 09/03/2023 12:14 PM EDT QOL Call Tracking Documentation Follow-Up Type: Phone Call Call Attempt: 1st Attempt Call Status: Patient will complete in MyChart documented in this encounterPomerene Hospital03-12-2024 NoteOhio[facility]24 Miscellaneous Notes* Telephone Encounter - Dot Stern - 08/23/2023 9:07 AM EST Reason for call: Pt called and she would like to reschedule her appt on 02 september to . Home and cell number: [phone] Diagnosis: HOSP FOLLOW UP-DISCUSS TIMING OF LOVE FEM ENDARTS NO TESTING NEEDED Kind Regards, Dot Stern documented in this encounterPomerene Hospital02-15-2024 Miscellaneous Notes* Telephone Encounter - Moriah [...] . Moriah Morris RN documented in this encounterPomerene Hospital02-14-2024 Instructions* Patient Instructions* Dania Cruz APRN.CNP - 08/07/2023 11:10 AM EST Follow up with PCP next week with repeat cbc and cmp to monitor trends. Follow up with billing machine operator in 4-6 weeks with consideration of repeat echo. No further refills unless specified by local providers. documented in this encounterPomerene Hospital02-14-2024 History of Present illness Narrative* Dania Cruz APRN.CNP - 08/07/2023 10:30 AM EST Images from the original note were not included. [facility] Department of Cardiovascular Medicine DEPARTMENT [...] PAST MEDICAL HISTORY Diagnosis Date Atherosclerosis of telida arteries of extremity with intermittent claudication ([facility]) 06/14/2023 CAD (coronary artery disease) 06/14/2023 Carpal tunnel syndrome Cataract Coronary atherosclerosis Dental disease Depression Diabetes mellitus type 2 with peripheral artery disease (HCC) 06/14/2023 Essential hypertension 06/14/2023 Family hx-malignancy Former smoker Fractures Generalized anxiety disorder Hematoma HTN (hypertension) Injury of back Lung nodules Obesity PAD (peripheral artery disease) ([facility]) Visual impairment PAST SURGICAL HISTORY Procedure Laterality [...] clean, dry and intact Wound: NA SV [place] sites: Location: Right LE, mid, distal, and ankle, healing, and clean, dry and intact with shelby. Edematous noted. Procedures: every other [place] removed from saphenous vein sites without difficulty. [...] cmp to monitor trends Follow up with billing machine operator in 4-6 weeks. May need more diuresing [...] prophylaxis reviewed Discussed wound care Dania Cruz APRN.MARSHMALLOW MAKER documented in this encounterPomerene Hospital02-14-2024 NoteOhio[facility] History of Present illness Narrative* Shannan [...] PATIENT PRESENTS WITH AN IMPLANTABLE OR ATTACHED HOT TAR ROOFER HELPER: No RADIOLOGY DEPARTMENT: General X-ray: Exam(s) Completed: Chest X-Ray PERIPHERAL IV DATA: Not applicable SIGNED BY: RT Enrike(Alyssa) August 07, 2023 10:07 AM documented in this encounterPomerene Hospital02-14-2024 NoteOhio[facility]02-13-2024 Miscellaneous Notes* Telephone Encounter - Kevin [...] given. Kevin Reardon RN documented in this encounterPomerene Hospital02-09-2024 NoteOhio[facility]02-09-2024 NoteOhio[facility]-09-2024 Note[facility]02-08-2024 Note[facility]-2024 Note [facility]02-07-2024 Note[facility]02-06-2024 NoteOhio[facility]02-05-2024 [facility] 07-29-2023 NoteOhio[facility]02-05-2024 NoteOhio[facility]01-31-2024 NoteHNO ID: [id number] Author: ?, ?, ? Service: ? Author Type: ? Type: Progress Notes Filed: 07/24/2023 11:11 Note Text: QOL Call Tracking Documentation Follow-Up Type: Phone Call Call Attempt: 1st Attempt Call Status: Left MessageOhiohealth O'[facility]len[facility] Hospital01-24-2024 NoteOhio[facility]01-24-2024 Note[facility]01-24-2024 Note [facility]01-15-2024 Note[facility]-2024 Note[facility]-2024 [facility] 07-02-2023 Note[facility]-2024 Note[facility]-2024 Note[facility]-09-2024 Note[facility]01-04-2024 NoteOhio[facility]12-29-2023 NoteHNO ID: [id number] Author: Christel De La Fuente Service: ? Author Type: ? Type: Progress Notes Filed: 06/26/2023 2:37 PM Note Text: Sent to Scheduling Patient scheduled 07[facility]08/23[facility]12-22-2023 NoteOhio[facility]12-22-2023 Note [facility]12-22-2023 NoteHNO ID: [id number] Author: Julio Smalls RRT Service: ? Author Type: Registered Resp Therapist Type: Progress Notes Filed: 06/14/2023 12:24 PM Note Text: PULM FUNCTION SMARTBLOCK: Provider: Willem Suarez MD Spirometry: 1 [facility] 06-03-2023 Miscellaneous Notes* Telephone Encounter - LcRobbin lentz - 06/03/2023 4:34 PM EST CALLED AND CONFIRMED APPTS W/MRS. QUEZADA VIA PHONE MAILED REMINDER FED EX NEXT DAY 06-03-23 #[id number] * Telephone Encounter - Ghazala Malave RN - 05/30/2023 10:08 AM EST eval only kris vascular surgery, testing, Dr. Suarez *Please call with date internal referral diagnosis: CAD history: PAD s/p iliac stents November 2022, current smoker, DM2, HTN blood thinners: asa 81, plavix, xarelto, trulicity, jardiance, ibuprofen documented in this encounterPomerene Hospital12-07-2023 Miscellaneous Notes* Telephone Encounter - Radha Brady - 05/30/2023 10:38 AM EST IN documented in this encounterPomerene Hospital12-05-2023 NoteOhio[facility] History of Present illness Narrative* Shanice Larsen MD - 05/28/2023 1:37 PM EST Images from the original note were not included. [facility] Department of Cardiovascular Medicine SECTION OF CLINICAL CARDIOLOGY OUTPATIENT VISIT DATE May 28, 2023 OUTPATIENT VISIT TYPE ESTABLISHED PRIMARY CARE PHYSICIAN: To use this Smartlink, specify the provider ID whose address you want to display, e.g., .PROVADDR[1(where 1 is the provider ID). REFERRING PHYSICIAN: Shanice Larsen [id number] [facility] [address] CHIEF COMPLAINT: Shortness of breath HISTORY OF PRESENT ILLNESS: Ms. Quezada is a 63 year old female who presents today for a cardiovascular medicine follow-up visit. I last saw her in Mar . She was having severe nausea and vomiting at the time. She was worked up by her crew leader/control room operator and no cause was found. She is [...] Larsen MD CONTACT INFORMATION: documented in this encounterPomerene Hospital11-20-2023 NoteOhio[facility] History of Present illness Narrative* Shanice Larsen MD - 05/13/2023 3:10 PM EST [facility] Department of Cardiovascular Medicine VIRTUAL VIDEO VISIT [...] visit. Either the patient or their legal truck sales representative has been informed of the [...] 13, 2023 3:10 PM documented in this encounterPomerene Hospital11-09-2023 NoteOhio[facility]-03-2023 History of Present illness Narrative* Shanice [...] high risk-Shanice Larsen MD documented in this encounterPomerene Hospital10-11-2023 Instructions* Patient Instructions* Serena Smith - 04/03/2023 9:34 AM EDT Complete blood work today Complete Echo documented in this encounterPomerene Hospital10-11-2023 History of Present illness Narrative* Shanice Larsen MD - 04/03/2023 7:45 AM EDT Images from the original note were not included. [facility] Department of Cardiovascular Medicine SECTION [...] is a 63 year old female from [place], [place] here today for cardiovascular evaluation related [...] 03, 2023 10:10 AM documented in this encounterPomerene Hospital10-03-2023 Hospital Discharge instructions Additional Instructions DISCHARGE INSTRUCTIONS FOR CARDIAC SCRAP CRANE OPERATOR PHONE NUMBER OF YOUR PHYSICIAN: [phone] PROCEDURE: Heart Cath The following instructions have [...] cold, numb, blue or white, call the billing machine operator immediately. 4. ACTIVITY: You are advised to [...] bottle, follow the instructions on the bottle. [facility] is not responsible for incorrect prescription information provided by the patient during their visit. Do not stop your medications without consulting your health care provider. Please take the list with you to your next doctor's appointment.[facility] Work Phone: [phone]) 254-902009-27-2023 Evaluation note* Encounter Date Diagnosis Assessment Notes Treatment Notes Treatment Clinical Notes Feb, Shortness of breath (ICD-10 - R06.02) Feb, Abnormal stress test (ICD-10 - R94.39) 63-year-old female with past medical history significant for peripheral vascular disease status post bilateral iliac kissing stents with now worsening intermittent claudication. She is planned for an aortobifemoral bypass surgery at [facility] on March 29, 2023 and presents [...] Hyperlipidemia, unspecified hyperlipidemia type (ICD-10 - E78.5) [facility] [place] Other [id number] NotePROCEDURE: XR FOOT RT MIN 3 VIEWS [...] authenticated by: NISA EDWARDS Date: 2022-05-10 13:23[facility] complaint Narrative - Abiodun QUEZADA is being seen for a consultation for dizziness, fatigue and palpitations.-[facility] [place] [address] DO Work Phone: Evaluation noteNo assessment information available [facility] Work Phone: evaluation noteNo InformationNort Collections Other evaluation note* Diagnosis Abnormal stress test- Primary Other nonspecific abnormal cardiovascular system function study documented in this encounter [facility] note* Diagnosis Abnormal stress test- Primary Other nonspecific abnormal cardiovascular system function study [facility] [place] [facility] Diagnosis Coronary artery disease involving telida coronary artery without angina pectoris, unspecified whether telida or transplanted heart- Primary documented in this encounter [facility] note* Diagnosis Coronary artery disease involving telida coronary artery of telida heart without angina pectoris- Primary Preop cardiovascular exam Pre-operative cardiovascular examination Morbid obesity (HCC) Morbid obesity documented in this encounter [facility] note* Diagnosis SOB (shortness of breath)- Primary Shortness of breath Coronary artery disease involving telida coronary artery of telida heart without angina pectoris PAD (peripheral artery disease) (HCC) Peripheral vascular disease, unspecified [facility] 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)- Primary PAD (peripheral artery disease) ([facility]) Peripheral vascular disease, unspecified S/P insertion of iliac artery stent Other postprocedural status Current smoker Tobacco use disorder Primary hypertension Unspecified essential hypertension Coronary angioplasty status Postsurgical percutaneous transluminal coronary angioplasty status documented in this encounter [facility] [place] [facility]* Diagnosis Surgery follow-up- Primary Follow-up examination, following unspecified surgery documented in this encounter [facility] [place] [facility]* Diagnosis S/P CABG (coronary artery bypass graft)- Primary Postsurgical aortocoronary bypass status PVD (peripheral vascular disease) ([facility]) Peripheral vascular disease, unspecified documented in this encounter [facility] [place] [facility]* Diagnosis Surgery follow-up Follow-up examination, following unspecified surgery [facility] Diagnosis Abnormal finding of diagnostic imaging- Primary Other nonspecific (abnormal) findings on radiological and other examinations of body structure documented in this encounter [facility] [place] [facility]* Diagnosis Coronary artery disease involving telida coronary artery of telida heart without angina pectoris- Primary [facility]* Diagnosis Lung nodule Solitary pulmonary nodule [facility]* Diagnosis 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 SOB (shortness of breath) Shortness of breath PAD (peripheral artery disease) ([facility]) Peripheral vascular disease, unspecified TIA (transient ischemic attack) Unspecified transient cerebral ischemia documented [facility] [place] [facility]* Diagnosis 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, bilateral legs (HCC)- Primary documented [facility] [place] [facility]* Diagnosis 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 PAD (peripheral artery disease) ([facility]) Peripheral vascular disease, unspecified Primary hypertension Unspecified essential hypertension Hyperlipidemia, unspecified hyperlipidemia type documented in this encounter [facility] [place] [facility]* Diagnosis Atherosclerosis of telida artery of both lower extremities with intermittent claudication (HCC)- Primary Atherosclerosis of telida arteries of the extremities with intermittent claudication documented in this encounter [facility] [place] [facility]* Diagnosis Lung nodule- Primary Solitary pulmonary nodule Lung nodule- Primary Solitary pulmonary nodule 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) PAD (peripheral artery disease) (HCC) Peripheral vascular disease, unspecified Primary hypertension Unspecified essential hypertension Hyperlipidemia, unspecified hyperlipidemia type documented in this encounter [facility] [place] [facility]* Diagnosis Lung nodule- Primary Solitary pulmonary nodule Lung nodule- Primary Solitary pulmonary nodule Pathological fracture of sternum with malunion- Primary 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) documented in this encounter [facility] [place] [facility]* Diagnosis Lung nodule- Primary Solitary pulmonary nodule Lung nodule- Primary Solitary pulmonary nodule Peripheral vascular disease (HCC)- Primary Peripheral vascular disease, unspecified Diminished pulses in lower extremity Other symptoms involving cardiovascular system PAD (peripheral artery disease) (HCC) Peripheral vascular disease, unspecified documented in this encounter [facility] [place] [facility] Diagnosis Lung nodule- Primary Solitary pulmonary nodule Lung nodule- Primary Solitary pulmonary nodule Atherosclerosis of telida artery of both lower extremities with intermittent claudication (HCC)- Primary Atherosclerosis of telida arteries of the extremities with intermittent claudication documented in this encounter [facility] general Narrative - Reported* Type Description Date Medical History aortic stenosis Medical History diabetes type 2 Medical History blood clot Medical History hypertension Medical History hyperlipidemia Medical History peripheral vascular disease Surgical History carpal tunnel Surgical History trigger finger Surgical History tubal ligation Surgical History bilateral kissing stents Surgical History left thigh evacuation hematoma Hospitalization History blood clot after cardiac stents [employer] Other History of Present illness Narrative* Patient [...] change and see us henceforth as needed. -[facility]-Chad Reyes DO Work Phone: [facility] (n[facility])* Outpatient Procedure (Routine) - Authorized Specialty Diagnoses / Procedures Referred By Contac t Referred To Contact [facility] [place] Diagnoses Abnormal stress test Procedures ECHO ECHO TTHRC R-T 2D W/WOM-MODE COMPL SPEC&COLR D Shanice Larsen MD [address] [place] [address] [address] Referral ID Status Reason Start Date Expiration Date Visits Requested Visits Authorized [id number] Authorized Auto-Generat ed Referral 3 04/02/2024 1 1 T [facility] for referral (narrative)* Outpatient Procedure (Routine) - Authorized Specialty Diagnoses / Procedures Referred By Contac t Referred To Contact [facility] Diagnoses Abnormal stress test Procedures ECG COMPLETE ECG ROUTINE ECG W/LEAST 12 LDS W/I&R Pamela Laws APRN.CNP [address] [place] [address] [place] [id number] Referral ID Status Reason Start Date Expiration Date Visits Requested Visits Authorized [id number] Authorized Auto-Generat ed Referral 3 04/07/2024 1 1 [facility] for referral (narrative)* Outpatient Procedure (Routine) - Authorized Specialty Diagnoses / Procedures Referred By Contac t Referred To Contact [facility] [place] Diagnoses 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) PAD (peripheral artery disease) (HCC) S/P insertion of iliac artery stent Current smoker Primary hypertension Coronary angioplasty status Procedures US RADIAL ARTERY MAP [facility] DUP-SCAN UXTR ART/ARTL BPGS COMPL BI STUDY Willem Suarez MD [address] [place] [address] [facility] [place] [address] [place] [address] Referral ID Status Reason Start Date Expiration Date Visits Requested Visits Authorized [id number] Authorized Auto-Generat ed Referral 3 06/02/2024 1 1 * Outpatient Procedure (Routine) - Authorized Specialty Diagnoses / Procedures Referred By Catherine michel Referred To [facility] [place] Diagnoses 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) PAD (peripheral artery disease) (HCC) S/P insertion of iliac artery stent Current smoker Primary hypertension Coronary angioplasty status Procedures LUNG DIFFUSION CAPACITY (DLCO) DIFFUSING CAPACITY Willem Suarez MD [address] [place] [address] [facility] [place] [address] [place] [address] Referral ID Status Reason Start Date Expiration Date Visits Requested Visits Authorized [id number] Authorized Auto-Generat ed Referral 3 07/02/2024 1 1 * Outpatient Procedure (Routine) - Authorized Specialty Diagnoses / Procedures Referred By Catherine michel Referred To [facility] [place] Diagnoses 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) PAD (peripheral artery disease) (HCC) S/P insertion of iliac artery stent Current smoker Primary hypertension Coronary angioplasty status Procedures SPIROMETRY BASELINE ONLY SPMTRY W/VC EXPIRATORY CHERYL W/WO MXML VOL VNTJ Willem Suarez MD [address] [place] [address] [facility] [address] [place] [address] Referral ID Status Reason Start Date Expiration Date Visits Requested Visits Authorized [id number] Authorized Auto-Generat ed Referral 3 07/02/2024 1 1 * Outpatient Procedure (Routine) - Authorized Specialty Diagnoses / Procedures Referred By Contac t Referred To Contact [facility] [place] Diagnoses 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) PAD (peripheral artery disease) (HCC) S/P insertion of iliac artery stent Current smoker Primary hypertension Coronary angioplasty status Procedures US MAMMARY ARTERY [facility] DUP-SCAN UXTR ART/ARTL BPGS COMPL BI STUDY Willem Suarez MD [address] [place] [address] [address] Referral ID Status Reason Start Date Expiration Date Visits Requested Visits Authorized [id number] Authorized Auto-Generat ed Referral 3 06/02/2024 1 1 * Outpatient Procedure (Routine) - Authorized Specialty Diagnoses / Procedures Referred By Contac t Referred To [facility] Diagnoses 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) PAD (peripheral artery disease) (HCC) S/P insertion of iliac artery stent Current smoker Primary hypertension Coronary angioplasty status Procedures US LEG VEIN MAP [facility] DUP-SCAN XTR VEINS COMPLETE BILATERAL STUDY Willem Suarez MD [address] [place] [address] [address] Referral ID Status Reason Start Date Expiration Date Visits Requested Visits Authorized [id number] Authorized Auto-Generat ed Referral 3 06/02/2024 1 1 * Outpatient Procedure (Routine) - Authorized Specialty Diagnoses / Procedures Referred By Contac t Referred To Contact [facility] [place] Diagnoses 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) PAD (peripheral artery disease) (HCC) S/P insertion of iliac artery stent Current smoker Primary hypertension Coronary angioplasty status Procedures US CAROTID ARTERIES [facility] DUPLEX SCAN EXTRACRANIAL ART COMPL BI STUDY Willem Suarez MD [address] [facility] [place] [address] [facility] [address] [place] [address] Referral ID Status Reason Start Date Expiration Date Visits Requested Visits Authorized [id number] Authorized Auto-Generat ed Referral 3 06/23/2023 1 1 * MRI/CT (Routine) - Authorized Specialty Diagnoses / Procedures Referred By Catherine michel Referred To Contact CT IMAGING Diagnoses 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) PAD (peripheral artery disease) (HCC) S/P insertion of iliac artery stent Current smoker Primary hypertension Coronary angioplasty status Procedures CT CHEST CARDIAC WO IVCON DIAGNOSTIC COMPUTED TOMOGRAPHY THORAX W/O CNTRST Willem Suarez MD [address] [place] [id number] [facility] [place] [address] Referral ID Status Reason Start Date Expiration Date Visits Requested Visits Authorized [id number] Authorized Auto-Generat ed Referral 3 07/02/2024 1 1 * Consult, Test, Treat (Routine) - Authorized Specialty Diagnoses / Procedures Referred By Catherine t Referred To Contact Vascular Surgery Diagnoses 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) PAD (peripheral artery disease) (HCC) S/P insertion of iliac artery stent Current smoker Primary hypertension Coronary angioplasty status Procedures CONSULT TO VASCULAR SURGERY OFFICE/OUTPATIENT NEW HIGH MDM 60-74 MINUTES Willem Suarez MD [address] [facility] [place] [address] Referral ID Status Reason Start Date Expiration Date Visits Requested Visits Authorized [id number] Authorized PCP Requested Referral 3 06/02/2024 1 1 * Consult, Test, Treat (Routine) - Authorized Specialty Diagnoses / Procedures Referred By Catherine michel Referred To Contact Cardiac Surg Diagnoses 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) PAD (peripheral artery disease) (HCC) S/P insertion of iliac artery stent Current smoker Primary hypertension Coronary angioplasty status Procedures CARDIOTHORACIC PREOP EVALUATION OFFICE/OUTPATIENT [facility] HIGH MDM 60-74 MINUTES Willem Suarez MD [address] [place] [address] Referral ID Status Reason Start Date Expiration Date Visits Requested Visits Authorized [id number] Authorized PCP Requested Referral 3 06/02/2024 1 1 [facility] for referral (narrative)* Outpatient Procedure (Routine) - Pending Review Specialty Diagnoses / Procedures Referred By Catherine michel Referred To Contact [facility] [place] Diagnoses Surgery follow-up Procedures ECG COMPLETE ECG ROUTINE ECG W/LEAST 12 LDS W/I&R Willem Suarez MD [address] [facility] [place] [address] [facility] [place] [address] [facility] [place] [address] Referral ID Status Reason Start Date Expiration Date Visits Requested Visits Authorized [id number] Pending Review Auto-Generat ed Referral 08/01/2023 07/31/[address] 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) SOB (shortness of breath) PAD (peripheral artery disease) (HCC) TIA (transient ischemic attack) Procedures ECG COMPLETE ECG ROUTINE ECG W/LEAST 12 LDS W/I&R Shanice Larsen MD [address] [place] [address] [address] Referral ID Status Reason Start Date Expiration Date Visits Requested Visits Authorized [id number] Pending Review Auto-Generat ed Referral 10/10/2023 10/09/2024 1 1 * Transition of Care (Routine) - Ref Not Required Specialty Diagnoses / Procedures Referred By Contac t Referred To Contact [facility] Diagnoses 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) SOB (shortness of breath) PAD (peripheral artery disease) (HCC) TIA (transient ischemic attack) Procedures CARDIOVASCULAR MEDICINE [place] [address] [place] [address] [place] [address] Referral ID Status Reason Start Date Expiration Date Visits Requested Visits Authorized [id number] Ref Not Required PCP Requested Referral 01/09/2024 10/09/2024 1 1 [facility] for referral (narrative)* Outpatient Procedure (Routine) - Pending Review Specialty Diagnoses / Procedures Referred By Contac t Referred To [facility] Diagnoses 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, bilateral legs (HCC) Procedures PVR LEG [facility] NON-INVASIVE PHYSIOLOGIC STUDY EXTREMITY 3 Papa Hernandez MD [address] [place] [id number] [place] [address] Referral ID Status Reason Start Date Expiration Date Visits Requested Visits Authorized [id number] Pending Review Auto-Generat ed Referral 01/03/2024 01/02/2025 1 1 [facility] for referral (narrative)* Outpatient Procedure (Routine) - New Request Specialty Diagnoses / Procedures Referred By Contac t Referred To Contact [facility] Diagnoses 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 [place] [address] [place] [address] Referral ID Status Reason Start Date Expiration Date Visits Requested Visits Authorized [id number] New Request Auto-Generat ed Referral 04/08/2025 1 1 * Transition of Care (Routine) - Ref Not Required Specialty Diagnoses / Procedures Referred By Contcj t Referred To Contact [facility] [place] Procedures CARDIOVASCULAR MEDICINE OP FOLLOW UP APPT ORDER Shanice Larsen MD [address] [place] [address] [address] Referral ID Status Reason Start Date Expiration Date Visits Requested Visits Authorized [id number] Ref Not Required PCP Requested Referral 10/07/2024 04/08/2025 1 1 [facility] Summary Purpose Family History No Family [...] Documents on File Type Date Recorded 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 Advance Directive(s) 07/17/2023 1:14 PM Documents on File Type Date Recorded 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 Advance Directive(s) 07/17/2023 1:14 PM [...] ABDL AORTA&BI ILIOFEM W/CONTRAST&POSTP Papa Santiago MD [address] [place] [address] Ct [facility] [place] [address] Referral ID Status Reason Start Date Expiration Date Visits Requested Visits Authorized [id number] Pending Review Auto-Generat ed Referral 04/28/2024 05/28/2025 1 1 Specialty Diagnoses / Procedures Referred By Lanceac t Referred To Contact [facility] Diagnoses Peripheral vascular disease (HCC) Diminished pulses in lower extremity PAD (peripheral artery disease) (HCC) Procedures PVR ANK PRESS [facility] NON-INVAS PHYSIOLOGIC STD EXTREMITY ART 2 LEVEL Papa Santiago MD [address] [place] [address] 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) PAD (peripheral artery disease) (HCC) Primary hypertension Hyperlipidemia, unspecified hyperlipidemia type Procedures CT CHEST WO IVCON DIAGNOSTIC COMPUTED TOMOGRAPHY THORAX W/O Shanice Patton MD [address] [place] [id number] Imaging [facility] Referral ID Status Reason Start Date Expiration Date Visits Requested Visits Authorized [id number] Pending Review Auto-Generat ed Referral 01/16/2024 02/14/2025 1 1 Specialty Diagnoses / Procedures Referred By Contac t Referred To Contact [facility] [place] Diagnoses 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) PAD (peripheral artery disease) (HCC) Primary hypertension Hyperlipidemia, unspecified hyperlipidemia type Procedures ECG COMPLETE ECG ROUTINE ECG W/LEAST 12 LDS W/I&R Shanice Larsen MD [address] [place] [address] [place] [address] Referral ID Status Reason Start Date Expiration Date Visits Requested Visits Authorized [id number] New Request Auto-Generat ed Referral 01/16/2024 01/15/2025 1 1 Specialty Diagnoses / Procedures Referred By Contac t Referred To Contact [facility] [place] Diagnoses 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) PAD (peripheral artery disease) (HCC) Primary hypertension Hyperlipidemia, unspecified hyperlipidemia type Procedures CARDIOVASCULAR MEDICINE OP FOLLOW UP APPT ORDER Shanice Larsen MD [address] [place] [phone] [place] [address] Referral ID Status Reason Start Date Expiration Date Visits Requested Visits Authorized [id number] Ref Not Required PCP Requested Referral 07/18/2024 01/15/2025 1 1 Specialty Diagnoses / Procedures Referred By Contac t Referred To Contact CT IMAGING Diagnoses Lung nodule Procedures CT CHEST WO IVCON DIAGNOSTIC COMPUTED TOMOGRAPHY THORAX W/O CNTRST Gloria Callahan MD [facility] [place] [id number] Ct Imaging [facility] Referral ID Status Reason Start Date Expiration Date Visits Requested Visits Authorized [id number] Pending Review Auto-Generat ed Referral 10/21/2023 11/19/2024 1 1 Specialty Diagnoses / Procedures Referred By Catherine michel Referred To Contact Procedures CARDIOVASCULAR MEDICINE OP FOLLOW UP APPT ORDER Shanice Larsen MD [address] [place] [address] Referral ID Status Reason Start Date Expiration Date Visits Requested Visits Authorized [id number] Ref Not Required PCP Requested Referral 05/28/2023 05/27/2024 1 1 Specialty Diagnoses / Procedures Referred By Catherine michel Referred To Contact Cardiothoracic Surgery Diagnoses Coronary artery disease involving telida coronary artery without angina pectoris, unspecified whether telida or transplanted heart Procedures CONSULT TO CARDIOTHORACIC SURGERY Shanice Larsen MD [address] [place] [address] Referral ID Status Reason Start Date Expiration Date Visits Requested Visits Authorized [id number] Ref Not Required PCP Requested Referral 05/26/2023 [...] section and content) DATE CREATED AUTHOR 07/19/2022 [facility] DATE CREATED AUTHOR AUTHOR'S ORGANIZ ATION 07/20/2022 [employer] DATE CREATED AUTHOR AUTHOR'S ORGANIZ ATION 10/07/2022 [facility] DATE CREATED AUTHOR AUTHOR'S ORGANIZ ATION 04/03/2023 [facility] DATE CREATED AUTHOR AUTHOR'S ORGANIZ ATION 06/11/2023 [facility] DATE CREATED AUTHOR AUTHOR'S ORGANIZ ATION 10/03/2023 [facility] DATE CREATED AUTHOR AUTHOR'S ORGANIZ ATION 12/30/2023 [facility] EPIC DATE CREATED AUTHOR AUTHOR'S ORGANIZ ATION 04/29/2024 [facility] Care Teams (unrecognized sec tion and content) Team Status: Active Member Role Status Dates Nano Nguyen MD Primary Care Provider Active Team Status: Inactive Member Role Status Dates Patrizia Melendrez MD Attending Provider Active Nano Nguyen MD Primary Care Provider Active Mens Locker Room Attendant Relationship Specialty Start Date End Date Shanice Larsen MD [address] [place] [address] Primary Staff Physician Cardiology 04/03/23 Mens Locker Room Attendant Relationship Specialty Start Date End Date Shanice Larsen MD [address] [place] [address] Primary Staff Physician Cardiology 04/03/23 Mens Locker Room Attendant Relationship Specialty Start Date End Date Shanice Larsen MD [address] [place] [address] Primary Staff Physician Cardiology 04/03/23 Mens Locker Room Attendant Relationship Specialty Start Date End Date Shanice Larsen MD [address] [place] [address] Primary Staff Physician Cardiology 04/03/23 Mens Locker Room Attendant Relationship Specialty Start Date End Date Shanice Larsen MD [address] [place] [address] Primary Staff Physician Cardiology 04/03/23 Willem Suarez MD [address] [place] [address] Surgeon Cardiac Surg 05/30/23 Mens Locker Room Attendant Relationship Specialty Start Date End Date Shanice Larsen MD [address] [place] [address] Primary Staff Physician Cardiology 04/03/23 Willem Suarez MD [address] [place] [address] Surgeon Cardiac Surg 05/30/23 Mens Locker Room Attendant Relationship Specialty Start Date End Date Nano Nguyen MD [address] [place] [phone] PCP - General Family Medicine 06/14/23 Shanice Larsen MD Primary Staff Physician Cardiology 04/03/23 Willem Suarez MD [address] [place] [phone] Surgeon Cardiac Surg 05/30/23 Mens Locker Room Attendant Relationship Specialty Start Date End Date Nano Nguyen MD [address] [place] [address] PCP - General Family Medicine 06/14/23 Shanice Larsen MD Primary Staff Physician Cardiology 04/03/23 Willem Suarez MD [address] [facility] [place] [address] Surgeon Cardiac Surg 05/30/23 Mens Locker Room Attendant Relationship Specialty Start Date End Date Nano Nguyen MD [address] [place] [address] PCP - General Family Medicine 06/14/23 Shanice Larsen MD Primary Staff Physician Cardiology 04/03/23 Willem Suarez MD [address] [place] [address] Surgeon Cardiac Surg 05/30/23 Mens Locker Room Attendant Relationship Specialty Start Date End Date Nano Nguyen MD [address] [place] [address] PCP - General Family Medicine 06/14/23 Shanice Larsen MD Primary Staff Physician Cardiology 04/03/23 Willem Suarez MD [address] [place] [address] Surgeon Cardiac Surg 05/30/23 Mens Locker Room Attendant Relationship Specialty Start Date End Date Nano Nguyen MD [address] [place] [address] PCP - General Family Medicine 06/14/23 Shanice Larsen MD Primary Staff Physician Cardiology 04/03/23 Willem Suarez MD [address] [place] [address] Surgeon Cardiac Surg 05/30/23 Mens Locker Room Attendant Relationship Specialty Start Date End Date Nano Nguyen MD [address] [place] [address] PCP - General Family Medicine 06/14/23 Shanice Larsen MD Primary Staff Physician Cardiology 04/03/23 Willem Suarez MD [address] [place] [address] Surgeon Cardiac Surg 05/30/23 Mens Locker Room Attendant Relationship Specialty Start Date End Date Nano Nguyen MD [address] [place] [address] PCP - General Family Medicine 06/14/23 Shanice Larsen MD Primary Staff Physician Cardiology 04/03/23 Willem Suarez MD [address] [facility] [place] [address] Surgeon Cardiac Surg 05/30/23 Mens Locker Room Attendant Relationship Specialty Start Date End Date Nano Nguyen MD [address] [place] [address] PCP - General Family Medicine 06/14/23 Shanice Larsen MD Primary Staff Physician Cardiology 04/03/23 Willem Suarez MD [address] [place] [address] Surgeon Cardiac Surg 05/30/23 Mens Locker Room Attendant Relationship Specialty Start Date End Date Nano Nguyen MD [address] [place] [address] PCP - General Family Medicine 06/14/23 Shanice Larsen MD Primary Staff Physician Cardiology 04/03/23 Willem Suarez MD [address] [place] [address] Surgeon Cardiac Surg 05/30/23 Mens Locker Room Attendant Relationship Specialty Start Date End Date Nano Nguyen MD [address] [place] [address] PCP - General Family Medicine 06/14/23 Shanice Larsen MD Primary Staff Physician Cardiology 04/03/23 Willem Suarez MD [address] [facility] [place] [address] Surgeon Cardiac Surg 05/30/23 Mens Locker Room Attendant Relationship Specialty Start Date End Date Nano Nguyen MD [address] [place] [address] PCP - General Family Medicine 06/14/23 Shanice Larsen MD Primary Staff Physician Cardiology 04/03/23 Willem Suarez MD [address] [place] [address] Surgeon Cardiac Surg 05/30/23 Mens Locker Room Attendant Relationship Specialty Start Date End Date Nano Nguyen MD [address] [place] [address] PCP - General Family Medicine 06/14/23 Shanice Larsen MD Primary Staff Physician Cardiology 04/03/23 Willem Suarez MD [address] [place] [address] Surgeon Cardiac Surg 05/30/23 Mens Locker Room Attendant Relationship Specialty Start Date End Date Nano Nguyen MD [address] [place] [address] PCP - General Family Medicine 06/14/23 Shanice Larsen MD Primary Staff Physician Cardiology 04/03/23 Willem Suarez MD [address] [facility] [place] [phone] Surgeon Cardiac Surg 05/30/23 Mens Locker Room Attendant Relationship Specialty Start Date End Date Nano Nguyen MD [address] [place] [address] PCP - General Family Medicine 06/14/23 Shanice Larsen MD Primary Staff Physician Cardiology 04/03/23 Willem Suarez MD [address] [place] [address] Surgeon Cardiac Surg 05/30/23 Mens Locker Room Attendant Relationship Specialty Start Date End Date Nano Nguyen MD [address] [place] [address] PCP - General Family Medicine 06/14/23 Shanice Larsen MD Primary Staff Physician Cardiology 04/03/23 Willem Suarez MD [address] [facility] [place] [address] Surgeon Cardiac Surg 05/30/23 Mens Locker Room Attendant Relationship Specialty Start Date End Date Nano Nguyen MD [address] [place] [address] PCP - General Family Medicine 06/14/23 Shanice Larsen MD Primary Staff Physician Cardiology 04/03/23 Willem Suarez MD [address] [facility] [place] [address] Surgeon Cardiac Surg 05/30/23 Mens Locker Room Attendant Relationship Specialty Start Date End Date Nano Nguyen MD [address] [place] [address] PCP - General Family Medicine 06/14/23 Shanice Larsen MD Primary Staff Physician Cardiology 04/03/23 Willem Suarez MD [address] [facility] [place] [address] Surgeon Cardiac Surg 05/30/23 Mens Locker Room Attendant Relationship Specialty Start Date End Date Nano Nguyen MD [address] [place] [address] PCP - General Family Medicine 06/14/23 Shanice Larsen MD Primary Staff Physician Cardiology 04/03/23 Willem Suarez MD [address] [place] [address] Surgeon Cardiac Surg 05/30/23 Mens Locker Room Attendant Relationship Specialty Start Date End Date Nano Nguyen MD [address] [place] [address] PCP - General Family Medicine 06/14/23 Shanice Larsen MD Primary Staff Physician Cardiology 04/03/23 Willem Suarez MD [address] [place] [address] Surgeon Cardiac Surg 05/30/23 Mens Locker Room Attendant Relationship Specialty Start Date End Date Nano Nguyen MD [address] [place] [address] PCP - General Family Medicine 06/14/23 Shanice Larsen MD Primary Staff Physician Cardiology 04/03/23 Willem Suarez MD [address] [place] [address] Surgeon Cardiac Surg 05/30/23 Mens Locker Room Attendant Relationship Specialty Start Date End Date Nano Nguyen MD [address] [place] [address] PCP - General Family Medicine 06/14/23 Shanice Larsen MD Primary Staff Physician Cardiology 04/03/23 Willem Suarez MD [address] [place] [address] Surgeon Cardiac Surg 05/30/23 Mens Locker Room Attendant Relationship Specialty Start Date End Date Nano Nguyen MD [address] [place] [address] PCP - General Family Medicine 06/14/23 Shanice Larsen MD Primary Staff Physician Cardiology 04/03/23 Willem Suarez MD [address] [place] [address] Surgeon Cardiac Surg 05/30/23 Goals (unrecognized section [...] Contact ADMITTING Diagnoses 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) Type 2 diabetes mellitus without complication, without long-term current use of insulin (HCC) Procedures CORONARY ARTERY BYP W/VEIN & ARTERY GRAFT 1 VEIN BYPASS GRAFT ARTERY CORONARY ON-PUMP USING VENOUS GRAFT(S) AND ARTERIAL GRAFT(S) SINGLE VEIN GRAFT [facility] [address] [place] [address] Referral ID Status Reason Start Date Expiration Date Visits Re quested Visits Authorized [id number] 1 1 Reason Comments Radio Main J1 Specialty Diagnoses / Procedures Referred By Catherien michel Referred To Contact ADMITTING Diagnoses 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 Reason Comments Appointment Reason Comments dental clearance Specialty Diagnoses / Procedures Referred By Contac t Referred To Contact CT IMAGING Diagnoses Lung nodule Procedures CT CHEST WO IVCON DIAGNOSTIC COMPUTED TOMOGRAPHY THORAX W/O CNTRST Gloria Callahan MD [address] [place] [address] Ct [facility] [place] [id number] Referral ID Status Reason Start Date Expiration Date V isits Requested Visits Authorized [id number] Closed Auto-Generate d Referral 09/02/2023 06/23/2024 1 1 Reason Comments Follow Up Shortness of Breath Specialty Diagnoses / Procedures Referred By Contac t Referred To Contact Diagnoses Follow-up exam Procedures CARDIOVASCULAR MEDICINE OP FOLLOW UP APPT ORDER OFFICE/OUTPATIENT ESTABLISHED HIGH MDM 40 MIN Pamela Laws APRN.[employer] [address] [place] [address] Or Main [address] [place] [address] Referral ID Status Reason Start Date Expiration Date V isits Requested Visits Authorized [id number] Closed PCP Requested Referral 10/01/2023 07/01/2024 1 1 Reason Comments Received Outside Medical Records [facility] ECHO REPORT Reason Comments Received Outside Medical Records [facility] Reason Comments Insurance Authorization Repatha Sure[employer] k 140MG/ML auto-injectors Reason Comments Follow Up Specialty Diagnoses / Procedures Referred By Contac t Referred To Contact [facility] Diagnoses 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) SOB (shortness of breath) PAD (peripheral artery disease) (HCC) TIA (transient ischemic attack) Procedures CARDIOVASCULAR MEDICINE OP FOLLOW UP APPT ORDER Shanice Larsen MD [address] [place] [address] [facility] [address] [facility] [place] [address] Referral ID Status Reason Start Date Expiration Date Visits Requested Visits Authorized [id number] Ref Not Required PCP Requested Referral 01/09/2024 10/09/2024 1 1 Reason Comments Established Patient Specialty Diagnoses / Procedures Referred By Contac t Referred To Contact CT IMAGING Diagnoses 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) PAD (peripheral artery disease) (HCC) Primary hypertension Hyperlipidemia, unspecified hyperlipidemia type Procedures CT CHEST WO IVCON DIAGNOSTIC COMPUTED TOMOGRAPHY THORAX W/O Shanice Patton MD [address] [place] [address] [place] [address] Referral ID Status Reason Start Date Expiration Date V isits Requested Visits Authorized [id number] Closed Auto-Generate d Referral 2024 06/23/2024 1 1 Reason Comments Results Reason Comments Chest Pain Source Comments (unrecognize d section and content) In the event this informatio n is protected by the Federal Confidentiality of Alcohol and Drug Abuse Patient Records regulations: The Federal rules restrict any use of the information to criminally investigate or prosecute any alcohol or drug abuse patient.[facility] the event this information is protected by the Federal Confidentiality of Alcohol and Drug Abuse Patient Records regulations: The Federal rules restrict any use of the information to criminally investigate or prosecute any alcohol or drug abuse patient.[facility]In the event this information is protected by the Federal Confidentiality of Alcohol and Drug Abuse Patient Records regulations: The Federal rules restrict any use of the information to criminally investigate or prosecute any alcohol or drug abuse patient.[facility]In the event this information is protected by the Federal Confidentiality of Alcohol and Drug Abuse Patient Records regulations: The Federal rules restrict any use of the information to criminally investigate or prosecute any alcohol or drug abuse patient.[facility] HospitalIn the event this information is protected by the Federal Confidentiality of Alcohol and Drug Abuse Patient Records regulations: The Federal rules restrict any use of the information to criminally investigate or prosecute any alcohol or drug abuse patient.[facility] HospitalIn the event this information is protected by the Federal Confidentiality of Alcohol and Drug Abuse Patient Records regulations: The Federal rules restrict any use of the information to criminally investigate or prosecute any alcohol or drug abuse patient.[facility] HospitalIn the event this information is protected by the Federal Confidentiality of Alcohol and Drug Abuse Patient Records regulations: The Federal rules restrict any use of the information to criminally investigate or prosecute any alcohol or drug abuse patient.[facility] HospitalIn the event this information is protected by the Federal Confidentiality of Alcohol and Drug Abuse Patient Records regulations: The Federal rules restrict any use of the information to criminally investigate or prosecute any alcohol or drug abuse patient.[facility] HospitalIn the event this information is protected by the Federal Confidentiality of Alcohol and Drug Abuse Patient Records regulations: The Federal rules restrict any use of the information to criminally investigate or prosecute any alcohol or drug abuse patient.[facility] HospitalIn the event this information is protected by the Federal Confidentiality of Alcohol and Drug Abuse Patient Records regulations: The Federal rules restrict any use of the information to criminally investigate or prosecute any alcohol or drug abuse patient.[facility] HospitalIn the event this information is protected by the Federal Confidentiality of Alcohol and Drug Abuse Patient Records regulations: The Federal rules restrict any use of the information to criminally investigate or prosecute any alcohol or drug abuse patient.[facility] HospitalIn the event this information is protected by the Federal Confidentiality of Alcohol and Drug Abuse Patient Records regulations: The Federal rules restrict any use of the information to criminally investigate or prosecute any alcohol or drug abuse patient.[facility] HospitalIn the event this information is protected by the Federal Confidentiality of Alcohol and Drug Abuse Patient Records regulations: The Federal rules restrict any use of the information to criminally investigate or prosecute any alcohol or drug abuse patient.[facility] HospitalIn the event this information is protected by the Federal Confidentiality of Alcohol and Drug Abuse Patient Records regulations: The Federal rules restrict any use of the information to criminally investigate or prosecute any alcohol or drug abuse patient.[facility] HospitalIn the event this information is protected by the Federal Confidentiality of Alcohol and Drug Abuse Patient Records regulations: The Federal rules restrict any use of the information to criminally investigate or prosecute any alcohol or drug abuse patient.[facility] HospitalIn the event this information is protected by the Federal Confidentiality of Alcohol and Drug Abuse Patient Records regulations: The Federal rules restrict any use of the information to criminally investigate or prosecute any alcohol or drug abuse patient.[facility] HospitalIn the event this information is protected by the Federal Confidentiality of Alcohol and Drug Abuse Patient Records regulations: The Federal rules restrict any use of the information to criminally investigate or prosecute any alcohol or drug abuse patient.[facility] HospitalIn the event this information is protected by the Federal Confidentiality of Alcohol and Drug Abuse Patient Records regulations: The Federal rules restrict any use of the information to criminally investigate or prosecute any alcohol or drug abuse patient.[facility] HospitalIn the event this information is protected by the Federal Confidentiality of Alcohol and Drug Abuse Patient Records regulations: The Federal rules restrict any use of the information to criminally investigate or prosecute any alcohol or drug abuse patient.[facility] HospitalIn the event this information is protected by the Federal Confidentiality of Alcohol and Drug Abuse Patient Records regulations: The Federal rules restrict any use of the information to criminally investigate or prosecute any alcohol or drug abuse patient.[facility] HospitalIn the event this information is protected by the Federal Confidentiality of Alcohol and Drug Abuse Patient Records regulations: The Federal rules restrict any use of the information to criminally investigate or prosecute any alcohol or drug abuse patient.[facility] HospitalIn the event this information is protected by the Federal Confidentiality of Alcohol and Drug Abuse Patient Records regulations: The Federal rules restrict any use of the information to criminally investigate or prosecute any alcohol or drug abuse patient.[facility] HospitalIn the event this information is protected by the Federal Confidentiality of Alcohol and Drug Abuse Patient Records regulations: The Federal rules restrict any use of the information to criminally investigate or prosecute any alcohol or drug abuse patient.[facility] HospitalIn the event this information is protected by the Federal Confidentiality of Alcohol and Drug Abuse Patient Records regulations: The Federal rules restrict any use of the information to criminally investigate or prosecute any alcohol or drug abuse patient.[facility] HospitalIn the event this information is protected by the Federal Confidentiality of Alcohol and Drug Abuse Patient Records regulations: The Federal rules restrict any use of the information to criminally investigate or prosecute any alcohol or drug abuse patient.[facility] HospitalIn the event this information is protected by the Federal Confidentiality of Alcohol and Drug Abuse Patient Records regulations: The Federal rules restrict any use of the information to criminally investigate or prosecute any alcohol or drug abuse patient.[facility] HospitalIn the event this information is protected by the Federal Confidentiality of Alcohol and Drug Abuse Patient Records regulations: The Federal rules restrict any use of the information to criminally investigate or prosecute any alcohol or drug abuse patient.[facility] HospitalIn the event this information is protected by the Federal Confidentiality of Alcohol and Drug Abuse Patient Records regulations: The Federal rules restrict any use of the information to criminally investigate or prosecute any alcohol or drug abuse patient.[facility] HospitalIn the event this information is protected by the Federal Confidentiality of Alcohol and Drug Abuse Patient Records regulations: The Federal rules restrict any use of the information to criminally investigate or prosecute any alcohol or drug abuse patient.[facility] HospitalIn the event this information is protected by the Federal Confidentiality of Alcohol and Drug Abuse Patient Records regulations: The Federal rules restrict any use of the information to criminally investigate or prosecute any alcohol or drug abuse patient.[facility] HospitalIn the event this information is protected by the Federal Confidentiality of Alcohol and Drug Abuse Patient Records regulations: The Federal rules restrict any use of the information to criminally investigate or prosecute any alcohol or drug abuse patient.[facility] HospitalIn the event this information is protected by the Federal Confidentiality of Alcohol and Drug Abuse Patient Records regulations: The Federal rules restrict any use of the information to criminally investigate or prosecute any alcohol or drug abuse patient.[facility] HospitalIn the event this information is protected by the Federal Confidentiality of Alcohol and Drug Abuse Patient Records regulations: The Federal rules restrict any use of the information to criminally investigate or prosecute any alcohol or drug abuse patient.[facility] HospitalIn the event this information is protected by the Federal Confidentiality of Alcohol and Drug Abuse Patient Records regulations: The Federal rules restrict any use of the information to criminally investigate or prosecute any alcohol or drug abuse patient.[facility] HospitalIn the event this information is protected by the Federal Confidentiality of Alcohol and Drug Abuse Patient Records regulations: The Federal rules restrict any use of the information to criminally investigate or prosecute any alcohol or drug abuse patient.[facility] HospitalIn the event this information is protected by the Federal Confidentiality of Alcohol and Drug Abuse Patient Records regulations: The Federal rules restrict any use of the information to criminally investigate or prosecute any alcohol or drug abuse patient.[facility] HospitalIn the event this information is protected by the Federal Confidentiality of Alcohol and Drug Abuse Patient Records regulations: The Federal rules restrict any use of the information to criminally investigate or prosecute any alcohol or drug abuse patient.[facility] HospitalIn the event this information is protected by the Federal Confidentiality of Alcohol and Drug Abuse Patient Records regulations: The Federal rules restrict any use of the information to criminally investigate or prosecute any alcohol or drug abuse patient.[facility] HospitalIn the event this information is protected by the Federal Confidentiality of Alcohol and Drug Abuse Patient Records regulations: The Federal rules restrict any use of the information to criminally investigate or prosecute any alcohol or drug abuse patient.[facility] HospitalIn the event this information is protected by the Federal Confidentiality of Alcohol and Drug Abuse Patient Records regulations: The Federal rules restrict any use of the information to criminally investigate or prosecute any alcohol or drug abuse patient.[facility] HospitalIn the event this information is protected by the Federal Confidentiality of Alcohol and Drug Abuse Patient Records regulations: The Federal rules restrict any use of the information to criminally investigate or prosecute any alcohol or drug abuse patient.[facility] FOR RECORDS PERTAINING TO PATIENTS WHO [...] ON THE PRIMARY CLINICAL RECORDS. [facility] [employer] [facility]. provides no warranty or guarantee of the accuracy or completeness of information in this document.
== END 2024-06-03 11:28 | disposition home or self-care (01) ==
LOC: MAMMO 11:27
PROVIDERS: PCP Family Medicine; Visit Provider Family Medicine
DX: Z12.31 Encounter for screening mammogram for malignant neoplasm of breast (principal); Z80.3 Family history of malignant neoplasm of breast; Z80.1 Family history of malignant neoplasm of trachea, bronchus and lung
CPT/HCPCS: 77063; 77067

== ENCOUNTER 2024-06-11 14:17 | Outpatient (OUT) | payer OTHER, SELFPAY | END 2024-06-11 14:18 | disposition home or self-care (01) | LOC: WC 14:17 | PROVIDERS: PCP Family Medicine; Visit Provider Physician Assistant | DX: E11.621 Type 2 diabetes mellitus with foot ulcer (principal); L97.418 Non-pressure chronic ulcer of right heel and midfoot with other specified severity; L97.512 Non-pressure chronic ulcer of other part of right foot with fat layer exposed; L60.3 Nail dystrophy | CPT/HCPCS: G0463 ==

== ENCOUNTER 2024-06-18 09:42 | Outpatient (OUT) | payer OTHER, SELFPAY ==
--- NOTE | 2024-06-18 09:49 | MR_ITS ---
The [address] [address] Patient Name: PAULY QUEZADA MRN: [id number] date: 1960 Sex: F Assigned Patient Location: MRI Current Patient Location: MRI Accession/Order Number: [id number] Exam Date: 06/18/2024 10:00 Report Date: 06/18/2024 11:10 At the request of: NANO NGUYEN Procedure: MR lumbar spine wo con MR lumbar spine wo con, 06/18/2024 10:00 AM EST INDICATION: Low Back Pain COMPARISON: Prior x-ray of the lumbar spine dated 05/29/2024 TECHNIQUE: Multiplanar, multisequential MRI images of lumbar spine were obtained without contrast. FINDINGS: For dictation purposes, the lowest complete disc space in the lumbar spine considered as L5-S1. There is a fracture line the superior endplate of the L2 with diffuse edema most likely consistent with recent compression fracture. There is loss of height for approximately 30%. No significant retropulsion. Otherwise, the vertebral heights are preserved. There is T2 prolongation within the S2 most likely a stress reaction. There are stress fractures within the bilateral sacral wings. There is normal physiologic lumbar lordosis. The conus medullaris is at the level of L1. No signal abnormality within the visualized spinal cord is noted. Level of T12-L1 is unremarkable. At the level of L1-L2, there are disc bulge with mild bilateral neuroforaminal narrowing and no canal stenosis. At the level of L2-L3, there are disc bulge with no neuroforaminal narrowing and no canal stenosis. At the level of L3-4, there are grade 1 anterolisthesis uncovering disc bulge with mild bilateral neuroforaminal narrowing and moderate canal stenosis. There is ligamentum flavum thickening and facet joint arthrosis at this level contributing to the canal stenosis. At the level of L4-5, there are disc bulge with superimposed central and left lateral protrusion and annular fissure with moderate right and mild left neuroforaminal narrowing and moderate canal stenosis. At the level of L5-S1, there are disc bulge with severe right and moderate left neuroforaminal narrowing and no canal stenosis. The paraspinal muscles are unremarkable. MR/MR lumbar spine wo con IMPRESSION: Recent compression fracture of the L2 with loss of height for approximately 30%. Stress fractures within the bilateral sacral wings. Moderate degenerative changes of lumbar spine in particular at L3-L4, L4-L5 and L5-S1. A stat note was submitted to inform the clinician at 11:09 AM. Electronically authenticated by: ELMER GRACIA Date: 06/18/2024 11:10
--- OUTSIDE RECORDS SUMMARY | 2024-06-18 10:03 | XMS_ITS | CCD ---
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 Name Role Phone Nano Nguyen Primary Care [...] MCGILL Admitting Unavailable Shawn Graff Consulting Unavailable YEADDISS, DR NISA Lainez Consulting Unavailable ROBERTAY ., [...] DR MCGILL Admitting Unavailable WEST, DR NISA Laniez Consulting Unavailable HOY ., DR MCGILL Consulting Unavailable HOY ., DR MCGILL Primary Care Unavailable HOY ., DR MCGILL Attending Unavailable HOY ., DR MCGILL Admitting Unavailable MD Patrizia Melendrez Attending Provider MD Nano Nguyen Primary Care Provider [phone] Patrizia Melendrez Unavailable Patrizia Melendrez Attending Unavailable Hoy, Nano M Primary Care Unavailable Patrizia Melendrez Admitting Unavailable Patrizia Melendrez Attending Unavailable Honelda, Nano M Primary Care Unavailable Patrizia Melendrez Admitting Unavailable Shanice Larsen MD Unavailable [phone] Willem Suarez MD Unavailable [phone] Shanice Larsen MD Unavailable Unavailable Nano Nguyen MD Primary Care Provider [phone] Shanice Larsen MD Unavailable [phone] Nano Nguyen MD Primary Care Provider [phone] NANO NGUYEN Primary Care Unavailable HOY, NANO M Referring Unavailable HOY, NANO M Primary Care Unavailable HOY, NANO M Referring Unavailable WENDY, NANO M Primary Care Unavailable Nano Nguyen MD Primary Care Provider [phone] TRIPP HUTSON Attending Unavailable HOY, NANO M [...] Unavailable BAKAEEN, WILLEM Referring Unavailable BAKAEEN, IWLLEM Referring Unavailable BARZILAI, BENICO Referring Unavailable BARZILAI, [...] [tetracycline] Drug Allergy 3 Unknown, GI Upset [facility] (2 sources) rosuvastatin; Translations: [ROSUVASTATIN] Drug Allergy 0 [facility] (1 source) SITagliptin Drug Allergy 0 [facility] (1 source) Tetracycline Drug Allergy [facility] (3 sources) House dust mite Drug allergy Unknown [employer] Other (4 sources) Cat dander; Translations: [CAT DANDER] Drug allergy 3 Unknown [facility] (1 source) Tetracycline Drug Allergy 3 [facility] (20 sources) [place] house dust mite allergenic extract / house dust mite allergenic extract; Translations: [ALLERG XT,D.FARINAE-D.P TERONYS] Drug Allergy 3 Itching [facility] (20 sources) Cat Hair Extract; Translations: [CAT HAIR STANDARDIZED ALLERGENIC EXTRACT] Drug Allergy 3 Itching [facility] (20 sources) house dust allergenic extract; Translations: [HOUSE DUST] Drug Allergy 3 Itching [facility] (20 sources) rosuvastatin Drug Allergy 0 Unknown [facility] (20 sources) SITagliptin; Translations: [SITAGLIPTIN] Drug Allergy 0 Unknown [facility] (11 sources) Miconazole; Translations: [MICONAZOLE] Drug Allergy 4 Itching, Swelling [facility] Medications Current Medications Medication Drug Class(es) [...] hours as needed (for mild surgical pain). [id number] 200 actuat albuterol 0.09 mg/actuat metered dose [...] mouth once daily. Take 1 tablet by [facility] once daily. Calcium (2 sources) [...] 0 03/07/2023 Suspended take 2 tablets by [facility] every twelve hours Carvedilol 6.25 [...] 20, 2023 12:00am take 1 capsule by [facility] every twenty-four hours Vitamin D3 [...] Comment on above: Take [facility] tablet by [facility] daily. docusate sodium 100 mg oral capsule (20 sources) Start: 08-02-2023 take 1 capsule by mouth twice daily docusate sodium (COLACE) 100 mg capsule Take 1 capsule by mouth two times a day. 30 capsule 08/02/2023 Active Comment on above: Take 1 capsule by [facility] two times a day. 0.5 ml dulaglutide [...] evolocumab 140 mg/mL subcutaneous pen injector ([employer]) Inject 140 mg subcutaneously every 2 weeks. [...] on above: Take 2 tablets by [facility] once daily for 14 days. metFORMIN hydrochloride [...] Start: 04-12-2022 take 2 tablets by [facility] once daily metFORMIN HCl - 1000 MG [...] Start: 02-10-2021 take 2 tablets by [facility] once daily oxyBUTYnin Chloride 5 MG Oral [...] 2023 12:00am take 1 capsule by [facility] once daily at mealtime Potassium Gluconate 595 [...] on above: Take 1 capsule by [facility] once daily. Completed/Discontinued Medications Medication Drug Class(es) [...] artery disease; Translations: [Atherosclerotic heart disease of [place] coronary artery without angina pectoris] Onset: 05-28-2023 [...] Reference Range Facility CNOVon 04-28-2024 CNOV Normal [facility] CNPTOUTREACHon 02-26-2024 CNPTOUTREACH Normal [facility] CNPNon 02-25-2024 CNPN Normal [facility] CT CHEST WO IVCONon 02-18-20 CT CHEST WO IVCON Normal [facility] CNPTOUTREACHon 02-04-2024 CNPTOUTREACH Normal [facility] CNOVon 01-28-2024 CNOV Normal [facility] PVR LEG LOVE VAS LABon 2023 PVR LEG LOVE VAS LAB Normal [facility] CNOVon 01-16-2024 CNOV Normal [facility] ECG COMPLETEon 01-16-2024 ECG COMPLETE Normal [facility] CNPNon 01-01-2024 CNPN Normal [facility] CNPTOUTREACHon 10-30-2023 CNPTOUTREACH Normal [facility] CNPNon 10-25-2023 CNPN Normal [facility] CNPTOUTREACHon 10-24-2023 CNPTOUTREACH Normal [facility] CNPNon 10-18-2023 CNPN Normal [facility] CNPNon 10-17-2023 CNPN Normal [facility] CNOVon 10-10-2023 CNOV Normal [facility] CT CHEST WO IVCONon 10-10-19 CT CHEST WO IVCON Normal [facility] ECG COMPLETEon 10-10-2023 ECG COMPLETE Normal [facility] CNPNon 09-23-2023 CNPN Normal [facility] CNPTOUTREACHon 09-03-2023 CNPTOUTREACH Normal [facility] CNPNon 08-23-2023 CNPN Normal [facility] CNPNon 08-08-2023 CNPN Normal [facility] CBC panel Auto (Bld)on 08-07 Erythrocyte distribution width (RBC) [Ratio] 13.2 % Normal 11.5-15.0 [facility] Comment on above: Order Comment: Speci men Type: BLOOD SPECIMENOrdering Facility: [facility] Address: [address] [place] [address] Performed By: #### 5 8410-2 ####[facility] LABIA [id number] [place] [address] [place] Hematocrit (Bld) [Volume fraction] 32.4 % Low 36.0-46.0 [facility] Comment on above: Order Comment: Speci men Type: BLOOD SPECIMENOrdering Facility: [facility] Address: [address] [place] [address] Performed By: #### 5 8410-2 ####[facility] [id number] [place] [address] [place] Hemoglobin (Bld) [Mass/Vol] 10.4 g/dL Low 11.5-15.5 [facility] Comment on above: Order Comment: Speci men Type: BLOOD SPECIMENOrdering Facility: [facility] Address: [address] [place] [address] Performed By: #### 5 8410-2 ####[facility] LABIA [id number] [place] [address] [place] MCH (RBC) [Entitic mass] 31.0 pg Normal 26.0-34.0 [facility] Comment on above: Order Comment: Speci men Type: BLOOD SPECIMENOrdering Facility: [facility] Address: [address] [place] [address] Performed By: #### 5 8410-2 ####[facility] LABIA [id number] [place] [address] [place] MCHC (RBC) [Mass/Vol] 32.1 g/dL Normal 30.5-36.0 [facility] Comment on above: Order Comment: Speci men Type: BLOOD SPECIMENOrdering Facility: [facility] Address: [address] [place] [address] Performed By: #### 5 8410-2 ####[facility] LABCLIA [id number] [place] [address] [place] MCV (RBC) [Entitic vol] 96.4 fL Normal 80.0-100.0 [facility] Comment on above: Order Comment: Speci men Type: BLOOD SPECIMENOrdering Facility: [facility] Address: [address] [place] [address] Performed By: #### 5 8410-2 ####[facility] LABIA [id number] [place] [address] [place] Nucleated RBC (Bld) [#/Vol] 10*3/uL Normal <0.01 [facility] Comment on above: Order Comment: Speci men Type: BLOOD SPECIMENOrdering Facility: [facility] Address: [address] [place] [address] Performed By: #### 5 8410-2 ####[facility] LABIA [id number] [place] [address] [place] Platelet mean volume (Bld) [Entitic vol] 9.3 fL Normal 9.0-12.7 [facility] Comment on above: Order Comment: Speci men Type: BLOOD SPECIMENOrdering Facility: [facility] Address: [address] [place] [address] Performed By: #### 5 8410-2 ####[facility] LABIA [id number] [place] [address] [place] Platelets (Bld) [#/Vol] 392 10*3/uL Normal 150-400 [facility] Comment on above: Order Comment: Speci men Type: BLOOD SPECIMENOrdering Facility: [facility] Address: [address] [place] [address] Performed By: #### 5 8410-2 ####[facility] LABIA [id number] [place] [address] [place] RBC (Bld) [#/Vol] 3.36 10*6/uL Low 3.90-5.20 [facility] Comment on above: Order Comment: Speci men Type: BLOOD SPECIMENOrdering Facility: [facility] Address: [address] [place] [address] Performed By: #### 5 8410-2 ####[facility] LABCLIA [id number] [place] [address] [place] WBC (Bld) [#/Vol] 7.17 10*3/uL Normal 3.70-11.00 [facility] Comment on above: Order Comment: Speci men Type: BLOOD SPECIMENOrdering Facility: [facility] Address: [address] [place] [address] Performed By: #### 5 8410-2 ####[facility] LABCLIA [id number] [place] [address] [place] CNOVon 08-07-2023 CNOV Normal [facility] Comprehensive metabolic 2000 panelon 08-07-2023 Albumin [Mass/Vol] 3.8 g/dL Low 3.9-4.9 [facility] Comment on above: Order Comment: Speci men Type: BLOOD SPECIMENOrdering Facility: [facility] Address: [address] [place] [address] Performed By: #### 2 4323-8 ####[facility] LABCLIA [id number] [place] [address] [place] ALP [Catalytic activity/Vol] 93 U/L Normal 34-123 [facility] Comment on above: Order Comment: Speci men Type: BLOOD SPECIMENOrdering Facility: [facility] Address: [address] [place] [address] Performed By: #### 2 4323-8 ####[facility] LABCLIA [id number] [place] [address] [place] ALT [Catalytic activity/Vol] 21 U/L Normal 7-38 [facility] Comment on above: Order Comment: Speci men Type: BLOOD SPECIMENOrdering Facility: [facility] Address: [address] [place] [id number] Performed By: #### 2 4323-8 ####[facility] LABCLIA [id number] [place] [id number] [place] Anion gap [Moles/Vol] 14 mmol/L Normal 9-18 [facility] Comment on above: Order Comment: Speci men Type: BLOOD SPECIMENOrdering Facility: [facility] Address: [address] [place] [address] Performed By: #### 2 4323-8 ####[facility] LABCLIA [id number] [place] [address] [place] AST [Catalytic activity/Vol] 14 U/L Normal 13-35 [facility] Comment on above: Order Comment: Speci men Type: BLOOD SPECIMENOrdering Facility: [facility] Address: [address] [place] [address] Performed By: #### 2 4323-8 ####[facility] LABCLIA [id number] [place] [address] [place] Bilirubin [Mass/Vol] 0.3 mg/dL Normal 0.2-1.3 [facility] Comment on above: Order Comment: Speci men Type: BLOOD SPECIMENOrdering Facility: [facility] Address: [address] [place], [place] [id number] Performed By: #### 2 4323-8 ####[facility] LABCLIA [id number] [place] [address] [place] Calcium [Mass/Vol] 10.3 mg/dL High 8.5-10.2 [facility] Comment on above: Order Comment: Speci men Type: BLOOD SPECIMENOrdering Facility: [facility] Address: [address] [place] [address] Performed By: #### 2 4323-8 ####[facility] LABCLIA [id number] [place] [address] [place] Chloride [Moles/Vol] 95 mmol/L Low 97-105 [facility] Comment on above: Order Comment: Speci men Type: BLOOD SPECIMENOrdering Facility: [facility] Address: [address] [place] [address] Performed By: #### 2 4323-8 ####[facility] LABCLIA [id number] [place] [address] [place] CO2 [Moles/Vol] 26 mmol/L Normal 22-30 [facility] Comment on above: Order Comment: Speci men Type: BLOOD SPECIMENOrdering Facility: [facility] Address: [address] [place] [address] Performed By: #### 2 4323-8 ####[facility] LABIA [id number] [place] [address] [place] Creatinine [Mass/Vol] 0.90 mg/dL Normal 0.58-0.96 [facility] Comment on above: Order Comment: Speci men Type: BLOOD SPECIMENOrdering Facility: [facility] Address: [address] [place] [address] Performed By: #### 2 4323-8 ####[facility] LABIA [id number] [place] [address] [place] Creatinine and Glomerular filtration rate.predicted panel (S/P/Bld) 71 mL/min/1.73m??? Normal >=60 [facility] Comment on above: Order Comment: Speci men Type: BLOOD SPECIMENOrdering Facility: [facility] Address: [address] [place] [address] Result Comment: Annelise mated Glomerular Filtration Rate [...] actual GFR. Performed By: #### 2 4323-8 ####[facility] LABIA [id number] [place] [address] [place] Glucose [Mass/Vol] 180 mg/dL High 74-99 [facility] Comment on above: Order Comment: Speci men Type: BLOOD SPECIMENOrdering Facility: [facility] Address: [address] [place] [address] Result Comment: The [place] Diabetes Association (ADA) provides guidance for cutoff [...] Standards of Medical Care in Diabetes 2016, [place] [employer]. Diabetes Care. 2016.39(Suppl 1). Performed By: #### 2 4323-8 ####[facility] LABIA [id number] [place] [address] [place] Potassium [Moles/Vol] 4.1 mmol/L Normal 3.7-5.1 [facility] Comment on above: Order Comment: Speci men Type: BLOOD SPECIMENOrdering Facility: [facility] Address: [address] [place] [address] Performed By: #### 2 4323-8 ####[facility] [id number] [place] [id number] [place] Protein [Mass/Vol] 6.6 g/dL Normal 6.3-8.0 [facility] Comment on above: Order Comment: Speci men Type: BLOOD SPECIMENOrdering Facility: [facility] Address: [address] [place] [address] Performed By: #### 2 4323-8 ####[facility] LABCLIA [id number] [place] [address] [place] Sodium [Moles/Vol] 135 mmol/L Low 136-144 [facility] Comment on above: Order Comment: Speci men Type: BLOOD SPECIMENOrdering Facility: [facility] Address: [address] [place] [address] Performed By: #### 2 4323-8 ####[facility] LABCLIA [id number] [place] [address] [place] Urea nitrogen [Mass/Vol] 19 mg/dL Normal 7-21 [facility] Comment on above: Order Comment: Speci men Type: BLOOD SPECIMENOrdering Facility: [facility] Address: [address] [place] [address] Performed By: #### 2 4323-8 ####[facility] LABIA [id number] [place] [id number] [place] ECG COMPLETEon 08-07-2023 ECG COMPLETE Normal [facility] XR CHEST 2V FRONTAL/LATon XR CHEST 2V FRONTAL/LAT Normal [facility] XR Chest 2 Viewson [facility] CNPNon 08-06-2023 CNPN Normal [facility] ALLIED HEALTHon 08-02-2023 ALLIED HEALTH Normal [facility] CASE MANAGEMon 08-02-2023 CASE MANAGEM Normal [facility] CASE MANAGEM Normal [facility] CBC panel Auto (Bld)on 08-02 Erythrocyte distribution width (RBC) [Ratio] 12.1 % Normal 11.5-15.0 [facility] Comment on above: Order Comment: Speci men Type: BLOOD SPECIMENOrdering Facility: [facility] Address: [address] [place] [address] Performed By: #### 5 8410-2 ####[facility] LABIA [id number] [place] [address] [place] Hematocrit (Bld) [Volume fraction] 26.9 % Low 36.0-46.0 [facility] Comment on above: Order Comment: Speci men Type: BLOOD SPECIMENOrdering Facility: [facility] Address: [address] [place] [address] Performed By: #### 5 8410-2 ####[facility] LABCLIA [id number] [place] [address] [place] Hemoglobin (Bld) [Mass/Vol] 9.1 g/dL Low 11.5-15.5 [facility] Comment on above: Order Comment: Speci men Type: BLOOD SPECIMENOrdering Facility: [facility] Address: [address] [place] [address] Performed By: #### 5 8410-2 ####[facility] LABCLIA [id number] [place] [address] [place] MCH (RBC) [Entitic mass] 31.3 pg Normal 26.0-34.0 [facility] Comment on above: Order Comment: Speci men Type: BLOOD SPECIMENOrdering Facility: [facility] Address: [address] [place] [address] Performed By: #### 5 8410-2 ####[facility] LABIA [id number] [place] [address] [place] MCHC (RBC) [Mass/Vol] 33.8 g/dL Normal 30.5-36.0 [facility] Comment on above: Order Comment: Speci men Type: BLOOD SPECIMENOrdering Facility: [facility] Address: [address] [place] [address] Performed By: #### 5 8410-2 ####[facility] LABCLIA [id number] [place] [address] [place] MCV (RBC) [Entitic vol] 92.4 fL Normal 80.0-100.0 [facility] Comment on above: Order Comment: Speci men Type: BLOOD SPECIMENOrdering Facility: [facility] Address: [address] [place] [address] Performed By: #### 5 8410-2 ####[facility] LABIA [id number] [place] [address] [place] Nucleated RBC (Bld) [#/Vol] 10*3/uL Normal <0.01 [facility] Comment on above: Order Comment: Speci men Type: BLOOD SPECIMENOrdering Facility: [facility] Address: [address] [place] [address] Performed By: #### 5 8410-2 ####[facility] LABIA [id number] [place] [address] [place] Platelet mean volume (Bld) [Entitic vol] 10.0 fL Normal 9.0-12.7 [facility] Comment on above: Order Comment: Speci men Type: BLOOD SPECIMENOrdering Facility: [facility] Address: [address] [place] [address] Performed By: #### 5 8410-2 ####[facility] LABIA [id number] [place] [address] [place] Platelets (Bld) [#/Vol] 224 10*3/uL Normal 150-400 [facility] Comment on above: Order Comment: Speci men Type: BLOOD SPECIMENOrdering Facility: [facility] Address: [address] [place] [address] Performed By: #### 5 8410-2 ####[facility] LABIA [id number] [place] [address] [place] RBC (Bld) [#/Vol] 2.91 10*6/uL Low 3.90-5.20 [facility] Comment on above: Order Comment: Speci men Type: BLOOD SPECIMENOrdering Facility: [facility] Address: [address] [place] [address] Performed By: #### 5 8410-2 ####[facility]CLIA [id number] [facility] [place] [address] [place] WBC (Bld) [#/Vol] 6.35 10*3/uL Normal 3.70-11.00 [facility] Comment on above: Order Comment: Speci men Type: BLOOD SPECIMENOrdering Facility: [facility] Address: [address] [place] [address] Performed By: #### 5 8410-2 ####[facility] LABCLIA [id number] [place] [address] [place] Comprehensive metabolic 2000 panelon 08-02-2023 Albumin [Mass/Vol] 3.3 g/dL Low 3.9-4.9 [facility] Comment on above: Order Comment: Speci men Type: BLOOD SPECIMENOrdering Facility: [facility] Address: [address] [place] [address] Performed By: #### 2 4323-8, ####[facility] LABCLIA [id number] [place] [address] [place] ALP [Catalytic activity/Vol] 60 U/L Normal 34-123 [facility] Comment on above: Order Comment: Speci men Type: BLOOD SPECIMENOrdering Facility: [facility] Address: [address] [place] [address] Performed By: #### 2 4323-8, ####[facility]CL[facility] [id number] [facility] [place] [id number] [place] ALT [Catalytic activity/Vol] 14 U/L Normal 7-38 [facility] Comment on above: Order Comment: Speci men Type: BLOOD SPECIMENOrdering Facility: [facility] Address: [address] [place] [address] Performed By: #### 2 4323-8, 59568-3 ####[facility] LABCLIA [id number] [place] [address] [place] Anion gap [Moles/Vol] 9 mmol/L Normal 9-18 [facility] Comment on above: Order Comment: Speci men Type: BLOOD SPECIMENOrdering Facility: [facility] Address: [address] [place] [address] Performed By: #### 2 4323-8, ####[facility] LABCLIA [id number] [place] [address] [place] AST [Catalytic activity/Vol] 19 U/L Normal 13-35 [facility] Comment on above: Order Comment: Speci men Type: BLOOD SPECIMENOrdering Facility: [facility] Address: [address] [place] [address] Performed By: #### 2 4323-8, ####[facility] LABCLIA [id number] [place] [address] [place] Bilirubin [Mass/Vol] 0.5 mg/dL Normal 0.2-1.3 [facility] Comment on above: Order Comment: Speci men Type: BLOOD SPECIMENOrdering Facility: [facility] Address: [address] [place] [address] Performed By: #### 2 4323-8, ####[facility] LABCLIA [id number] [place] [address] [place] Calcium [Mass/Vol] 9.8 mg/dL Normal 8.5-10.2 [facility] Comment on above: Order Comment: Speci men Type: BLOOD SPECIMENOrdering Facility: [facility] Address: [address] [place] [address] Performed By: #### 2 4323-8, ####[facility] LABCLIA [id number] [place] [id number] [place] Chloride [Moles/Vol] 93 mmol/L Low 97-105 [facility] Comment on above: Order Comment: Speci men Type: BLOOD SPECIMENOrdering Facility: [facility] Address: [address] [place] [address] Performed By: #### 2 4323-8, ####[facility] LABCLIA [id number] [place] [address] [place] CO2 [Moles/Vol] 26 mmol/L Normal 22-30 [facility] Comment on above: Order Comment: Speci men Type: BLOOD SPECIMENOrdering Facility: [facility] Address: [address] [place] [address] Performed By: #### 2 4323-8, ####[facility] LABCLIA [id number] [place] [address] [place] Creatinine [Mass/Vol] 0.55 mg/dL Low 0.58-0.96 [facility] Comment on above: Order Comment: Speci men Type: BLOOD SPECIMENOrdering Facility: [facility] Address: [address] [place] [address] Performed By: #### 2 4323-8, ####[facility] LABCLIA [id number] [address] [place] Creatinine and Glomerular filtration rate.predicted panel (S/P/Bld) 102 mL/min/1.73m??? Normal >=60 [facility] Comment on above: Order Comment: Speci men Type: BLOOD SPECIMENOrdering Facility: [facility] Address: [address] [place] [address] Result Comment: Annelise mated Glomerular Filtration Rate [...] actual GFR. Performed By: #### 2 4323- ####[facility] LABCLIA [id number] [address] [address] [place] Glucose [Mass/Vol] 224 mg/dL High 74-99 [facility] Comment on above: Order Comment: Speci men Type: BLOOD SPECIMENOrdering Facility: [facility] Address: [address] [place] [address] Result Comment: The [place] [employer] (ADA) provides guidance for cutoff [...] Standards of Medical Care in Diabetes 2016, [place] [employer]. Diabetes Care. 2016.39(Suppl 1). Performed By: #### 2 4328, ####[facility] LABIA [id number] [place] [address] [place] Potassium [Moles/Vol] 4.4 mmol/L Normal 3.7-5.1 [facility] Comment on above: Order Comment: Speci men Type: BLOOD SPECIMENOrdering Facility: [facility] Address: [address] [place] [address] Performed By: #### 2 4328, ####[facility] LABIA [id number] [place] [address] [place] Protein [Mass/Vol] 6.2 g/dL Low 6.3-8.0 [facility] Comment on above: Order Comment: Speci men Type: BLOOD SPECIMENOrdering Facility: [facility] Address: [address] [place] [address] Performed By: #### 2 4323-01, ####[facility] LABCLIA [id number] [address] [address] [place] Sodium [Moles/Vol] 128 mmol/L Low 136-144 [facility] Comment on above: Order Comment: Speci men Type: BLOOD SPECIMENOrdering Facility: [facility] Address: [address] [place] [address] Performed By: #### 2 4323-8, ####[facility] LABCLIA [id number] [place] [id number] [place] Urea nitrogen [Mass/Vol] 13 mg/dL Normal 7-21 [facility] Comment on above: Order Comment: Speci men Type: BLOOD SPECIMENOrdering Facility: [facility] Address: [address] [place] [address] Performed By: #### 2 43238, ####[facility] LABCLIA [id number] [place] [id number] [place] ECG COMPLETEon 08-02-2023 ECG COMPLETE Normal [facility] Magnesium SerPl-mCncon 08-02 Magnesium [Mass/Vol] 2.0 mg/dL Normal 1.7-2.3 [facility] Comment on above: Order Comment: Speci men Type: BLOOD SPECIMENOrdering Facility: [facility] Address: [address] [place] [address] Performed By: #### 2 4323-8, ####[facility] LABCLIA [id number] [address] [address] [place] THERAPY NTon 08-02-2023 THERAPY NT Normal [facility] THERAPY NT Normal [facility] XR CHEST 1V FRONTALon 2023 XR CHEST 1V FRONTAL Normal [facility] CASE MANAGEMon 08-01-2023 CASE MANAGEM Normal [facility] CBC panel Auto (Bld)on 08-01 Erythrocyte distribution width (RBC) [Ratio] 12.0 % Normal 11.5-15.0 [facility] Comment on above: Order Comment: Speci men Type: BLOOD SPECIMENOrdering Facility: [facility] Address: [address] [place] [address] Performed By: #### 5 8410-2 ####[facility] LABIA [id number] [place] [address] [place] Hematocrit (Bld) [Volume fraction] 30.5 % Low 36.0-46.0 [facility] Comment on above: Order Comment: Speci men Type: BLOOD SPECIMENOrdering Facility: [facility] Address: [address] [place] [address] Performed By: #### 5 8410-2 ####[facility] LABIA [id number] [place] [address] [place] Hemoglobin (Bld) [Mass/Vol] 10.5 g/dL Low 11.5-15.5 [facility] Comment on above: Order Comment: Speci men Type: BLOOD SPECIMENOrdering Facility: [facility] Address: [address] [place] [address] Performed By: #### 5 8410-2 ####[facility] LABIA [id number] [place] [address] [place] MCH (RBC) [Entitic mass] 31.4 pg Normal 26.0-34.0 [facility] Comment on above: Order Comment: Speci men Type: BLOOD SPECIMENOrdering Facility: [facility] Address: [address] [place] [address] Performed By: #### 5 8410-2 ####[facility] LABIA [id number] [place] [address] [place] MCHC (RBC) [Mass/Vol] 34.4 g/dL Normal 30.5-36.0 [facility] Comment on above: Order Comment: Speci men Type: BLOOD SPECIMENOrdering Facility: [facility] Address: [address] [place] [address] Performed By: #### 5 8410-2 ####[facility] LABCLIA [id number] [place] [address] [place] MCV (RBC) [Entitic vol] 91.3 fL Normal 80.0-100.0 [facility] Comment on above: Order Comment: Speci men Type: BLOOD SPECIMENOrdering Facility: [facility] Address: [address] [place] [address] Performed By: #### 5 8410-2 ####[facility] LABIA [id number] [place] [address] [place] Nucleated RBC (Bld) [#/Vol] 10*3/uL Normal <0.01 [facility] Comment on above: Order Comment: Speci men Type: BLOOD SPECIMENOrdering Facility: [facility] Address: [address] [place] [address] Performed By: #### 5 8410-2 ####[facility] LABIA [id number] [place] [address] [place] Platelet mean volume (Bld) [Entitic vol] 9.9 fL Normal 9.0-12.7 [facility] Comment on above: Order Comment: Speci men Type: BLOOD SPECIMENOrdering Facility: [facility] Address: [address] [place] [address] Performed By: #### 5 8410-2 ####[facility] LABCLIA [id number] [place] [address] [place] Platelets (Bld) [#/Vol] 208 10*3/uL Normal 150-400 [facility] Comment on above: Order Comment: Speci men Type: BLOOD SPECIMENOrdering Facility: [facility] Address: [address] [place] [address] Performed By: #### 5 8410-2 ####[facility] LABCLIA [id number] [place] [address] [place] RBC (Bld) [#/Vol] 3.34 10*6/uL Low 3.90-5.20 [facility] Comment on above: Order Comment: Speci men Type: BLOOD SPECIMENOrdering Facility: [facility] Address: [address] [place] [address] Performed By: #### 5 8410-2 ####[facility] LABIA [id number] [place] [address] [place] WBC (Bld) [#/Vol] 9.03 10*3/uL Normal 3.70-11.00 [facility] Comment on above: Order Comment: Speci men Type: BLOOD SPECIMENOrdering Facility: [facility] Address: [address] [place] [address] Performed By: #### 5 8410-2 ####[facility] LABIA [id number] [place] [address] [place] CNDSon 08-01-2023 CNDS Normal [facility] Comprehensive metabolic 2000 panelon 08-01-2023 Albumin [Mass/Vol] 3.3 g/dL Low 3.9-4.9 [facility] Comment on above: Order Comment: Speci men Type: BLOOD SPECIMENOrdering Facility: [facility] Address: [address] [place] [address] Performed By: #### 1 9123-9, 82378-1 ####[facility] LABCLIA [id number] [place] [address] [place] ALP [Catalytic activity/Vol] 60 U/L Normal 34-123 [facility] Comment on above: Order Comment: Speci men Type: BLOOD SPECIMENOrdering Facility: [facility] Address: [address] [place] [address] Performed By: #### 1 9123-9, 46888-0 ####[facility] LABCLIA [id number] [place] [address] [place] ALT [Catalytic activity/Vol] 9 U/L Normal 7-38 [facility] Comment on above: Order Comment: Speci men Type: BLOOD SPECIMENOrdering Facility: [facility] Address: [address] [place] [address] Performed By: #### 1 9123-9, 75381-2 ####[facility] LABCLIA [id number] [place] [address] [place] Anion gap [Moles/Vol] 9 mmol/L Normal 9-18 [facility] Comment on above: Order Comment: Speci men Type: BLOOD SPECIMENOrdering Facility: [facility] Address: [address] [place] [address] Performed By: #### 1 9123-9, 67881-1 ####[facility] LABCLIA [id number] [place] [address] [place] AST [Catalytic activity/Vol] 9 U/L Low 13-35 [facility] Comment on above: Order Comment: Speci men Type: BLOOD SPECIMENOrdering Facility: [facility] Address: [address] [place] [address] Performed By: #### 1 9123-9, 84733-6 ####[facility] LABCLIA [id number] [place] [address] [place] Bilirubin [Mass/Vol] 0.6 mg/dL Normal 0.2-1.3 [facility] Comment on above: Order Comment: Speci men Type: BLOOD SPECIMENOrdering Facility: [facility] Address: [address] [place] [address] Performed By: #### 1 9123-9, 02046-8 ####[facility] LABCLIA [id number] [place] [address] [place] Calcium [Mass/Vol] 9.7 mg/dL Normal 8.5-10.2 [facility] Comment on above: Order Comment: Speci men Type: BLOOD SPECIMENOrdering Facility: [facility] Address: [address] [place] [address] Performed By: #### 1 9123-9, ####[facility] LABCLIA [id number] [place] [address] [place] Chloride [Moles/Vol] 95 mmol/L Low 97-105 [facility] Comment on above: Order Comment: Speci men Type: BLOOD SPECIMENOrdering Facility: [facility] Address: [address] [place] [address] Performed By: #### 1 9123-9, ####[facility] LABCLIA [id number] [place] [address] [place] CO2 [Moles/Vol] 27 mmol/L Normal 22-30 [facility] Comment on above: Order Comment: Speci men Type: BLOOD SPECIMENOrdering Facility: [facility] Address: [address] [place] [address] Performed By: #### 1 9123-9, ####[facility] LABCLIA [id number] [place] [address] [place] Creatinine [Mass/Vol] 0.62 mg/dL Normal 0.58-0.96 [facility] Comment on above: Order Comment: Speci men Type: BLOOD SPECIMENOrdering Facility: [facility] Address: [address] [place] [address] Performed By: #### 1 9123-9, ####[facility] LABCLIA [id number] [place] [address] [place] Creatinine and Glomerular filtration rate.predicted panel (S/P/Bld) 99 mL/min/1.73m??? Normal >=60 [facility] Comment on above: Order Comment: Speci men Type: BLOOD SPECIMENOrdering Facility: [facility] Address: [address] [place] [address] Result Comment: Annelise mated Glomerular Filtration Rate [...] actual GFR. Performed By: #### 1 9123-9, ####[facility] [id number] [place] [address] [place] Glucose [Mass/Vol] 196 mg/dL High 74-99 [facility] Comment on above: Order Comment: Phyllis stein Type: BLOOD SPECIMENOrdering Facility: [facility] Address: [address] [place] [address] Result Comment: The [place] [employer] (ADA) provides guidance for cutoff [...] Standards of Medical Care in Diabetes 2016, [place] [employer]. Diabetes Care. 2016.39(Suppl 1). Performed By: #### 1 9123-9, ####[facility] [id number] [place] [address] [place] Potassium [Moles/Vol] 4.2 mmol/L Normal 3.7-5.1 [facility] Comment on above: Order Comment: Phyllis stein Type: BLOOD SPECIMENOrdering Facility: [facility] Address: [address] [place] [address] Performed By: #### 1 9123-9, 55308-3 ####[facility] LABCLIA [id number] [place] [id number] [place] Protein [Mass/Vol] 6.0 g/dL Low 6.3-8.0 [facility] Comment on above: Order Comment: Speci men Type: BLOOD SPECIMENOrdering Facility: [facility] Address: [address] [place] [address] Performed By: #### 1 9123-9, 14242-6 ####[facility] LABCLIA [id number] [place] [address] [place] Sodium [Moles/Vol] 131 mmol/L Low 136-144 [facility] Comment on above: Order Comment: Speci men Type: BLOOD SPECIMENOrdering Facility: [facility] Address: [address] [place] [address] Performed By: #### 1 9123-9, 39052-1 ####[facility] LABCLIA [id number] [place] [address] [place] Urea nitrogen [Mass/Vol] 12 mg/dL Normal 7-21 [facility] Comment on above: Order Comment: Speci men Type: BLOOD SPECIMENOrdering Facility: [facility] Address: [address] [place] [address] Performed By: #### 1 9123-9, 67541-7 ####[facility] LABCLIA [id number] [place] [address] [place] ECG COMPLETEon 08-01-2023 ECG COMPLETE Normal [facility] Magnesium SerPl-mCncon 08-01 Magnesium [Mass/Vol] 1.8 mg/dL Normal 1.7-2.3 [facility] Comment on above: Order Comment: Speci men Type: BLOOD SPECIMENOrdering Facility: [facility] Address: [address] [place] [address] Performed By: #### 1 9123-9, 87127-6 ####[facility] LABCLIA [id number] [place] [address] [place] XR CHEST 1V FRONTAL PORTon 0 08-01-2023 XR CHEST 1V FRONTAL PORT Normal [facility] CBC panel Auto (Bld)on 07-31 Erythrocyte distribution width (RBC) [Ratio] 12.0 % Normal 11.5-15.0 [facility] Comment on above: Order Comment: Speci men Type: BLOOD SPECIMENOrdering Facility: [facility] Address: [address] [place] [address] Performed By: #### 5 8410-2 ####[facility] LABIA [id number] [place] [address] [place] Hematocrit (Bld) [Volume fraction] 31.1 % Low 36.0-46.0 [facility] Comment on above: Order Comment: Speci men Type: BLOOD SPECIMENOrdering Facility: [facility] Address: [address] [place] [address] Performed By: #### 5 8410-2 ####[facility] LABIA [id number] [place] [address] [place] Hemoglobin (Bld) [Mass/Vol] 10.8 g/dL Low 11.5-15.5 [facility] Comment on above: Order Comment: Speci men Type: BLOOD SPECIMENOrdering Facility: [facility] Address: [address] [place] [address] Performed By: #### 5 8410-2 ####[facility] LABCLIA [id number] [place] [address] [place] MCH (RBC) [Entitic mass] 31.9 pg Normal 26.0-34.0 [facility] Comment on above: Order Comment: Speci men Type: BLOOD SPECIMENOrdering Facility: [facility] Address: [address] [place] [address] Performed By: #### 5 8410-2 ####[facility] LABCLIA [id number] [place] [address] [place] MCHC (RBC) [Mass/Vol] 34.7 g/dL Normal 30.5-36.0 [facility] Comment on above: Order Comment: Speci men Type: BLOOD SPECIMENOrdering Facility: [facility] Address: [address] [place] [address] Performed By: #### 5 8410-2 ####[facility] LABCLIA [id number] [place] [address] [place] MCV (RBC) [Entitic vol] 91.7 fL Normal 80.0-100.0 [facility] Comment on above: Order Comment: Speci men Type: BLOOD SPECIMENOrdering Facility: [facility] Address: [address] [place] [address] Performed By: #### 5 8410-2 ####[facility] LABIA [id number] [place] [address] [place] Nucleated RBC (Bld) [#/Vol] 10*3/uL Normal <0.01 [facility] Comment on above: Order Comment: Speci men Type: BLOOD SPECIMENOrdering Facility: [facility] Address: [address] [place] [address] Performed By: #### 5 8410-2 ####[facility] LABIA [id number] [place] [address] [place] Platelet mean volume (Bld) [Entitic vol] 10.3 fL Normal 9.0-12.7 [facility] Comment on above: Order Comment: Speci men Type: BLOOD SPECIMENOrdering Facility: [facility] Address: [address] [place] [address] Performed By: #### 5 8410-2 ####[facility] LABCLIA [id number] [place] [address] [place] Platelets (Bld) [#/Vol] 159 10*3/uL Normal 150-400 [facility] Comment on above: Order Comment: Speci men Type: BLOOD SPECIMENOrdering Facility: [facility] Address: [address] [place] [address] Performed By: #### 5 8410-2 ####[facility] LABCLIA [id number] [place] [address] [place] RBC (Bld) [#/Vol] 3.39 10*6/uL Low 3.90-5.20 [facility] Comment on above: Order Comment: Speci men Type: BLOOD SPECIMENOrdering Facility: [facility] Address: [address] [place] [address] Performed By: #### 5 8410-2 ####[facility] LABCLIA [id number] [place] [address] [place] WBC (Bld) [#/Vol] 9.25 10*3/uL Normal 3.70-11.00 [facility] Comment on above: Order Comment: Speci men Type: BLOOD SPECIMENOrdering Facility: [facility] Address: [address] [place] [address] Performed By: #### 5 8410-2 ####[facility] LABCLIA [id number] [place] [address] [place] Comprehensive metabolic 2000 panelon 07-31-2023 Albumin [Mass/Vol] 2.9 g/dL Low 3.9-4.9 [facility] Comment on above: Order Comment: Speci men Type: BLOOD SPECIMENOrdering Facility: [facility] Address: [address] [place] [address] Performed By: #### 2 4323-8 ####[facility] LABCLIA [id number] [place] [address] [place] ALP [Catalytic activity/Vol] 54 U/L Normal 34-123 [facility] Comment on above: Order Comment: Speci men Type: BLOOD SPECIMENOrdering Facility: [facility] Address: [address] [place] [id number] Performed By: #### 2 4323-8 ####[facility] LABCLIA [id number] [place] [id number] [place] ALT [Catalytic activity/Vol] 10 U/L Normal 7-38 [facility] Comment on above: Order Comment: Speci men Type: BLOOD SPECIMENOrdering Facility: [facility] Address: [address] [place], [place] [address] Performed By: #### 2 4323-8 ####[facility] LABCLIA [id number] [place] [address] [place] Anion gap [Moles/Vol] 9 mmol/L Normal 9-18 [facility] Comment on above: Order Comment: Speci men Type: BLOOD SPECIMENOrdering Facility: [facility] Address: [address] [place] [address] Performed By: #### 2 4323-8 ####[facility] LABCLIA [id number] [place] [address] [place] AST [Catalytic activity/Vol] 16 U/L Normal 13-35 [facility] Comment on above: Order Comment: Speci men Type: BLOOD SPECIMENOrdering Facility: [facility] Address: [address] [place], [place] [address] Performed By: #### 2 4323-8 ####[facility] LABCLIA [id number] [place] [address] [place] Bilirubin [Mass/Vol] 0.7 mg/dL Normal 0.2-1.3 [facility] Comment on above: Order Comment: Speci men Type: BLOOD SPECIMENOrdering Facility: [facility] Address: [address] [place], [place] [address] Performed By: #### 2 4323-8 ####[facility] LABCLIA [id number] [place] [address] [place] Calcium [Mass/Vol] 9.2 mg/dL Normal 8.5-10.2 [facility] Comment on above: Order Comment: Speci men Type: BLOOD SPECIMENOrdering Facility: [facility] Address: [address] [place] [address] Performed By: #### 2 4323-8 ####[facility] LABCLIA [id number] [place] [address] [place] Chloride [Moles/Vol] 98 mmol/L Normal 97-105 [facility] Comment on above: Order Comment: Speci men Type: BLOOD SPECIMENOrdering Facility: [facility] Address: [address] [place] [address] Performed By: #### 2 4323-8 ####[facility] LABCLIA [id number] [place] [address] [place] CO2 [Moles/Vol] 24 mmol/L Normal 22-30 [facility] Comment on above: Order Comment: Speci men Type: BLOOD SPECIMENOrdering Facility: [facility] Address: [address] [place] [address] Performed By: #### 2 4323-8 ####[facility] LABCLIA [id number] [place] [address] [place] Creatinine [Mass/Vol] 0.66 mg/dL Normal 0.58-0.96 [facility] Comment on above: Order Comment: Speci men Type: BLOOD SPECIMENOrdering Facility: [facility] Address: [address] [place] [address] Performed By: #### 2 4323-8 ####[facility] LABCLIA [id number] [place] [address] [place] Creatinine and Glomerular filtration rate.predicted panel (S/P/Bld) 97 mL/min/1.73m??? Normal >=60 [facility] Comment on above: Order Comment: Speci men Type: BLOOD SPECIMENOrdering Facility: [facility] Address: [address] [place] [address] Result Comment: Annelise mated Glomerular Filtration Rate [...] actual GFR. Performed By: #### 2 4323-8 ####[facility] LABCLIA [id number] [place] [address] [place] Glucose [Mass/Vol] 171 mg/dL High 74-99 [facility] Comment on above: Order Comment: Specmarko stein Type: BLOOD SPECIMENOrdering Facility: [facility] Address: [address] [place] [address] Result Comment: The [place] [employer] (ADA) provides guidance for cutoff [...] Standards of Medical Care in Diabetes 2016, [place] [employer]. Diabetes Care. 2016.39(Suppl 1). Performed By: #### 2 4323-8 ####[facility] LABCLIA [id number] [place] [address] [place] Potassium [Moles/Vol] 4.4 mmol/L Normal 3.7-5.1 [facility] Comment on above: Order Comment: Phyllis stein Type: BLOOD SPECIMENOrdering Facility: [facility] Address: [address] [place] [address] Performed By: #### 2 4323-8 ####[facility] LABCLIA [id number] [place] [address] [place] Protein [Mass/Vol] 5.5 g/dL Low 6.3-8.0 [facility] Comment on above: Order Comment: Speci men Type: BLOOD SPECIMENOrdering Facility: [facility] Address: [address] [place] [address] Performed By: #### 2 4323-8 ####[facility] LABCLIA [id number] [place] [address] [place] Sodium [Moles/Vol] 131 mmol/L Low 136-144 [facility] Comment on above: Order Comment: Speci men Type: BLOOD SPECIMENOrdering Facility: [facility] Address: [address] [place] [address] Performed By: #### 2 4323-8 ####[facility] LABIA [id number] [place] [address] [place] Urea nitrogen [Mass/Vol] 12 mg/dL Normal 7-21 [facility] Comment on above: Order Comment: Speci men Type: BLOOD SPECIMENOrdering Facility: [facility] Address: [address] [place] [address] Performed By: #### 2 4323-8 ####[facility] LABIA [id number] [place] [address] [place] NURSING PROGon 07-31-2023 NURSING PROG Normal [facility] XR CHEST 1V FRONTAL PORTon 0 07-31-2023 XR CHEST 1V FRONTAL PORT Normal [facility] ARTERIAL BLOOD GASESon 07-30 Base excess Calc (Bld) [Moles/Vol] 2 mmol/L Normal 0-2 [facility] Comment on above: Order Comment: Speci men Type: ARTERIAL BLOOD SPECIMENOrdering Facility: [facility] Address: [address] [place] [address] Performed By: #### A LLBG ####[facility] LABCL[facility] [id number] [place] [address] [place] Body temperature 98.6 [degF] Normal [facility] Comment on above: Order Comment: Speci men Type: ARTERIAL BLOOD SPECIMENOrdering Facility: [facility] Address: [address] [place] [address] Performed By: #### A LLBG ####[facility]CL[facility] [id number] [place] [address] [place] Calcium.ionized (Bld) [Mass/Vol] 1.22 mmol/L Normal 1.08-1.30 [facility] Comment on above: Order Comment: Speci men Type: ARTERIAL BLOOD SPECIMENOrdering Facility: [facility] Address: [address] [place] [address] Performed By: #### A LLBG ####[facility] LABCLIA [id number] [place] [address] [place] Calcium.ionized adjusted to pH 7.4 (BldA) [Moles/Vol] 1.26 mmol/L Normal 1.08-1.30 [facility] Comment on above: Order Comment: Speci men Type: ARTERIAL BLOOD SPECIMENOrdering Facility: [facility] Address: [address] [place] [address] Performed By: #### A LLBG ####[facility] LABCLIA [id number] [place] [address] [place] Carboxyhemoglobin (BldA) [Mass fraction] 1.8 % Normal 0.0-2.0 [facility] Comment on above: Order Comment: Speci men Type: ARTERIAL BLOOD SPECIMENOrdering Facility: [facility] Address: [address] [place] [address] Result Comment: Carb oxyhemoglobin Reference Range for Smokers: 2.0-8.0% Performed By: #### A LLBG ####[facility] LABCLIA [id number] [place] [address] [place] CO2 (Bld) [Partial pressure] 37 mm Hg Normal 36-46 [facility] Comment on above: Order Comment: Speci men Type: ARTERIAL BLOOD SPECIMENOrdering Facility: [facility] Address: [address] [place] [address] Performed By: #### A LLBG ####[facility] LABCLIA [id number] [place] [address] [place] Glucose [Mass/Vol] 146 mg/dL High 60-105 [facility] Comment on above: Order Comment: Speci men Type: ARTERIAL BLOOD SPECIMENOrdering Facility: [facility] Address: [address] [place] [address] Performed By: #### A LLBG ####[facility] LABCLIA [id number] [place] [address] [place] HCO3 (Bld) [Moles/Vol] 26 mmol/L Normal 22-26 [facility] Comment on above: Order Comment: Speci men Type: ARTERIAL BLOOD SPECIMENOrdering Facility: [facility] Address: [address] [place] [address] Performed By: #### A LLBG ####[facility] LABCLIA [id number] [place] [address] [place] Hematocrit (Bld) [Volume fraction] 34.4 % Low 36.0-46.0 [facility] Comment on above: Order Comment: Speci men Type: ARTERIAL BLOOD SPECIMENOrdering Facility: [facility] Address: [address] [place] [address] Performed By: #### A LLBG ####[facility] LABCLIA [id number] [place] [address] [place] Hemoglobin (Bld) [Mass/Vol] 11.1 g/dL Low 11.5-15.5 [facility] Comment on above: Order Comment: Speci men Type: ARTERIAL BLOOD SPECIMENOrdering Facility: [facility] Address: [address] [place] [address] Performed By: #### A LLBG ####[facility] LABCLIA [id number] [place] [address] [place] Lactate [Moles/Vol] 0.9 mmol/L Normal 0.5-2.2 [facility] Comment on above: Order Comment: Speci men Type: ARTERIAL BLOOD SPECIMENOrdering Facility: [facility] Address: [address] [place] [address] Performed By: #### A LLBG ####[facility] LABCLIA [id number] [place] [address] [place] LITERS 1 Liters/min Normal [facility] Comment on above: Order Comment: Speci men Type: ARTERIAL BLOOD SPECIMENOrdering Facility: [facility] Address: [address] [place] [address] Performed By: #### A LLBG ####[facility] LABCLIA [id number] [place] [address] [place] Methemoglobin (Bld) [Mass fraction] 1.4 % Normal 0.0-1.5 [facility] Comment on above: Order Comment: Speci men Type: ARTERIAL BLOOD SPECIMENOrdering Facility: [facility] Address: [address] [place] [address] Performed By: #### A LLBG ####[facility] LABIA [id number] [place] [address] [place] O2 THERAPY NC = Nasal Cannula Normal [facility] Comment on above: Order Comment: Speci men Type: ARTERIAL BLOOD SPECIMENOrdering Facility: [facility] Address: [address] [place] [address] Performed By: #### A LLBG ####[facility] LABCLIA [id number] [place] [address] [place] Oxygen (Bld) [Partial pressure] 87 mm Hg Normal 85-95 [facility] Comment on above: Order Comment: Speci men Type: ARTERIAL BLOOD SPECIMENOrdering Facility: [facility] Address: [address] [place] [address] Performed By: #### A LLBG ####[facility] LABIA [id number] [place] [address] [place] Oxyhemoglobin (BldA) [Mass fraction] 94 % Low 95-98 [facility] Comment on above: Order Comment: Speci men Type: ARTERIAL BLOOD SPECIMENOrdering Facility: [facility] Address: [address] [place] [address] Performed By: #### A LLBG ####[facility] LABIA [id number] [place] [address] [place] pH (Bld) 7.46 [pH] High 7.35-7.45 [facility] Comment on above: Order Comment: Speci men Type: ARTERIAL BLOOD SPECIMENOrdering Facility: [facility] Address: [address] [place] [address] Performed By: #### A LLBG ####[facility] LABIA [id number] [place] [address] [place] Potassium [Moles/Vol] 4.3 mmol/L Normal 3.5-5.0 [facility] Comment on above: Order Comment: Speci men Type: ARTERIAL BLOOD SPECIMENOrdering Facility: [facility] Address: [address] [place] [address] Performed By: #### A LLBG ####[facility] LABCLIA [id number] [place] [address] [place] Sodium [Moles/Vol] 128 mmol/L Low 136-144 [facility] Comment on above: Order Comment: Speci men Type: ARTERIAL BLOOD SPECIMENOrdering Facility: [facility] Address: [address] [place] [address] Performed By: #### A LLBG ####[facility] LABCLIA [id number] [place] [address] [place] Base excess Calc (Bld) [Moles/Vol] 2 mmol/L Normal 0-2 [facility] Comment on above: Order Comment: Speci men Type: ARTERIAL BLOOD SPECIMENOrdering Facility: [facility] Address: [address] [place] [address] Performed By: #### A LLBG ####[facility] LABIA [id number] [place] [address] [place] Body temperature 98.6 [degF] Normal [facility] Comment on above: Order Comment: Speci men Type: ARTERIAL BLOOD SPECIMENOrdering Facility: [facility] Address: [address] [place] [address] Performed By: #### A LLBG ####[facility] LABIA [id number] [place] [address] [place] Calcium.ionized (Bld) [Mass/Vol] 1.21 mmol/L Normal 1.08-1.30 [facility] Comment on above: Order Comment: Speci men Type: ARTERIAL BLOOD SPECIMENOrdering Facility: [facility] Address: [address] [place] [address] Performed By: #### A LLBG ####[facility] LABIA [id number] [place] [address] [place] Calcium.ionized adjusted to pH 7.4 (BldA) [Moles/Vol] 1.23 mmol/L Normal 1.08-1.30 [facility] Comment on above: Order Comment: Speci men Type: ARTERIAL BLOOD SPECIMENOrdering Facility: [facility] Address: [address] [place] [address] Performed By: #### A LLBG ####[facility] LABCLIA [id number] [place] [address] [place] Carboxyhemoglobin (BldA) [Mass fraction] 1.6 % Normal 0.0-2.0 [facility] Comment on above: Order Comment: Speci men Type: ARTERIAL BLOOD SPECIMENOrdering Facility: [facility] Address: [address] [place] [address] Result Comment: Carb oxyhemoglobin Reference Range for Smokers: 2.0-8.0% Performed By: #### A LLBG ####[facility] LABCLIA [id number] [place] [address] [place] CO2 (Bld) [Partial pressure] 39 mm Hg Normal 36-46 [facility] Comment on above: Order Comment: Speci men Type: ARTERIAL BLOOD SPECIMENOrdering Facility: [facility] Address: [address] [place] [address] Performed By: #### A LLBG ####[facility] LABCLIA [id number] [place] [address] [place] Glucose [Mass/Vol] 168 mg/dL High 60-105 [facility] Comment on above: Order Comment: Speci men Type: ARTERIAL BLOOD SPECIMENOrdering Facility: [facility] Address: [address] [place] [address] Performed By: #### A LLBG ####[facility] LABCLIA [id number] [place] [address] [place] HCO3 (Bld) [Moles/Vol] 26 mmol/L Normal 22-26 [facility] Comment on above: Order Comment: Speci men Type: ARTERIAL BLOOD SPECIMENOrdering Facility: [facility] Address: [address] [place] [address] Performed By: #### A LLBG ####[facility] LABCLIA [id number] [place] [address] [place] Hematocrit (Bld) [Volume fraction] 35.0 % Low 36.0-46.0 [facility] Comment on above: Order Comment: Speci men Type: ARTERIAL BLOOD SPECIMENOrdering Facility: [facility] Address: [address] [place] [address] Performed By: #### A LLBG ####[facility] LABIA [id number] [place] [address] [place] Hemoglobin (Bld) [Mass/Vol] 11.4 g/dL Low 11.5-15.5 [facility] Comment on above: Order Comment: Speci men Type: ARTERIAL BLOOD SPECIMENOrdering Facility: [facility] Address: [address] [place] [address] Performed By: #### A LLBG ####[facility] LABIA [id number] [place] [address] [place] Lactate [Moles/Vol] 1.0 mmol/L Normal 0.5-2.2 [facility] Comment on above: Order Comment: Speci men Type: ARTERIAL BLOOD SPECIMENOrdering Facility: [facility] Address: [address] [place] [address] Performed By: #### A LLBG ####[facility] LABIA [id number] [place] [address] [place] LITERS 1 Liters/min Normal [facility] Comment on above: Order Comment: Speci men Type: ARTERIAL BLOOD SPECIMENOrdering Facility: [facility] Address: [address] [place] [address] Performed By: #### A LLBG ####[facility] [id number] [place] [address] [place] Methemoglobin (Bld) [Mass fraction] 1.4 % Normal 0.0-1.5 [facility] Comment on above: Order Comment: Speci men Type: ARTERIAL BLOOD SPECIMENOrdering Facility: [facility] Address: [address] [place] [address] Performed By: #### A LLBG ####[facility] LABIA [id number] [place] [address] [place] O2 THERAPY NC = Nasal Cannula Normal [facility] Comment on above: Order Comment: Speci men Type: ARTERIAL BLOOD SPECIMENOrdering Facility: [facility] Address: [address] [place] [address] Performed By: #### A LLBG ####[facility] LABCLIA [id number] [place] [id number] [place] Oxygen (Bld) [Partial pressure] 99 mm Hg High 85-95 [facility] Comment on above: Order Comment: Speci men Type: ARTERIAL BLOOD SPECIMENOrdering Facility: [facility] Address: [address] [place] [address] Performed By: #### A LLBG ####[facility] LABCLIA [id number] [place] [address] [place] Oxyhemoglobin (BldA) [Mass fraction] 95 % Normal 95-98 [facility] Comment on above: Order Comment: Speci men Type: ARTERIAL BLOOD SPECIMENOrdering Facility: [facility] Address: [address] [place] [address] Performed By: #### A LLBG ####[facility] LABCLIA [id number] [place] [address] [place] pH (Bld) 7.43 [pH] Normal 7.35-7.45 [facility] Comment on above: Order Comment: Speci men Type: ARTERIAL BLOOD SPECIMENOrdering Facility: [facility] Address: [address] [place] [address] Performed By: #### A LLBG ####[facility] LABCLIA [id number] [place] [address] [place] Potassium [Moles/Vol] 4.2 mmol/L Normal 3.5-5.0 [facility] Comment on above: Order Comment: Speci men Type: ARTERIAL BLOOD SPECIMENOrdering Facility: [facility] Address: [address] [place], [place] [address] Performed By: #### A LLBG ####[facility] LABCLIA [id number] [place] [address] [place] Sodium [Moles/Vol] 128 mmol/L Low 136-144 [facility] Comment on above: Order Comment: Speci men Type: ARTERIAL BLOOD SPECIMENOrdering Facility: [facility] Address: [address] [place] [address] Performed By: #### A LLBG ####[facility] LABCLIA [id number] [place] [address] [place] Base excess Calc (Bld) [Moles/Vol] 1 mmol/L Normal 0-2 [facility] Comment on above: Order Comment: Speci men Type: ARTERIAL BLOOD SPECIMENOrdering Facility: [facility] Address: [address] [place] [address] Performed By: #### A LLBG ####[facility] LABCLIA [id number] [place] [address] [place] Body temperature 98.6 [degF] Normal [facility] Comment on above: Order Comment: Speci men Type: ARTERIAL BLOOD SPECIMENOrdering Facility: [facility] Address: [address] [place] [address] Performed By: #### A LLBG ####[facility] LABCLIA [id number] [place] [address] [place] Calcium.ionized (Bld) [Mass/Vol] 1.24 mmol/L Normal 1.08-1.30 [facility] Comment on above: Order Comment: Speci men Type: ARTERIAL BLOOD SPECIMENOrdering Facility: [facility] Address: [address] [place] [address] Performed By: #### A LLBG ####[facility] LABCLIA [id number] [place] [address] [place] Calcium.ionized adjusted to pH 7.4 (BldA) [Moles/Vol] 1.26 mmol/L Normal 1.08-1.30 [facility] Comment on above: Order Comment: Speci men Type: ARTERIAL BLOOD SPECIMENOrdering Facility: [facility] Address: [address] [place] [address] Performed By: #### A LLBG ####[facility] LABCLIA [id number] [place] [address] [place] Carboxyhemoglobin (BldA) [Mass fraction] 1.9 % Normal 0.0-2.0 [facility] Comment on above: Order Comment: Speci men Type: ARTERIAL BLOOD SPECIMENOrdering Facility: [facility] Address: [address] [place] [address] Result Comment: Carb oxyhemoglobin Reference Range for Smokers: 2.0-8.0% Performed By: #### A LLBG ####[facility] LABCLIA [id number] [place] [address] [place] CO2 (Bld) [Partial pressure] 38 mm Hg Normal 36-46 [facility] Comment on above: Order Comment: Speci men Type: ARTERIAL BLOOD SPECIMENOrdering Facility: [facility] Address: [address] [place] [address] Performed By: #### A LLBG ####[facility] LABCLIA [id number] [place] [address] [place] Glucose [Mass/Vol] 161 mg/dL High 60-105 [facility] Comment on above: Order Comment: Speci men Type: ARTERIAL BLOOD SPECIMENOrdering Facility: [facility] Address: [address] [place] [address] Performed By: #### A LLBG ####[facility] LABIA [id number] [place] [address] [place] HCO3 (Bld) [Moles/Vol] 25 mmol/L Normal 22-26 [facility] Comment on above: Order Comment: Speci men Type: ARTERIAL BLOOD SPECIMENOrdering Facility: [facility] Address: [address] [place] [address] Performed By: #### A LLBG ####[facility] LABCLIA [id number] [place] [address] [place] Hematocrit (Bld) [Volume fraction] 35.9 % Low 36.0-46.0 [facility] Comment on above: Order Comment: Speci men Type: ARTERIAL BLOOD SPECIMENOrdering Facility: [facility] Address: [address] [place] [address] Performed By: #### A LLBG ####[facility] LABCLIA [id number] [place] [address] [place] Hemoglobin (Bld) [Mass/Vol] 11.7 g/dL Normal 11.5-15.5 [facility] Comment on above: Order Comment: Speci men Type: ARTERIAL BLOOD SPECIMENOrdering Facility: [facility] Address: [address] [place] [address] Performed By: #### A LLBG ####[facility] LABIA [id number] [place] [address] [place] Lactate [Moles/Vol] 0.9 mmol/L Normal 0.5-2.2 [facility] Comment on above: Order Comment: Speci men Type: ARTERIAL BLOOD SPECIMENOrdering Facility: [facility] Address: [address] [place] [address] Performed By: #### A LLBG ####[facility] LABIA [id number] [place] [address] [place] L[place] 1 Liters/min Normal [facility] Comment on above: Order Comment: Speci men Type: ARTERIAL BLOOD SPECIMENOrdering Facility: [facility] Address: [address] [place] [address] Performed By: #### A LLBG ####[facility] LABCLIA [id number] [place] [address] [place] Methemoglobin (Bld) [Mass fraction] 0.7 % Normal 0.0-1.5 [facility] Comment on above: Order Comment: Speci men Type: ARTERIAL BLOOD SPECIMENOrdering Facility: [facility] Address: [address] [place] [address] Performed By: #### A LLBG ####[facility] LABCLIA [id number] [place] [address] [place] O2 THERAPY [place] = Nasal Cannula Normal [facility] Comment on above: Order Comment: Speci men Type: ARTERIAL BLOOD SPECIMENOrdering Facility: [facility] Address: [address] [place] [address] Performed By: #### A LLBG ####[facility] LABCLIA [id number] [place] [address] [place] Oxygen (Bld) [Partial pressure] 77 mm Hg Low 85-95 [facility] Comment on above: Order Comment: Speci men Type: ARTERIAL BLOOD SPECIMENOrdering Facility: [facility] Address: [address] [place] [address] Performed By: #### A LLBG ####[facility] LABCLIA [id number] [place] [address] [place] Oxyhemoglobin (BldA) [Mass fraction] 94 % Low 95-98 [facility] Comment on above: Order Comment: Speci men Type: ARTERIAL BLOOD SPECIMENOrdering Facility: [facility] Address: [address] [place] [address] Performed By: #### A LLBG ####[facility] LABCLIA [id number] [place] [address] [place] pH (Bld) 7.42 [pH] Normal 7.35-7.45 [facility] Comment on above: Order Comment: Speci men Type: ARTERIAL BLOOD SPECIMENOrdering Facility: [facility] Address: [address] [place] [address] Performed By: #### A LLBG ####[facility] LABCLIA [id number] [place] [address] [place] Potassium [Moles/Vol] 3.9 mmol/L Normal 3.5-5.0 [facility] Comment on above: Order Comment: Speci men Type: ARTERIAL BLOOD SPECIMENOrdering Facility: [facility] Address: [address] [place] [address] Performed By: #### A LLBG ####[facility] LABCLIA [id number] [place] [address] [place] Sodium [Moles/Vol] 129 mmol/L Low 136-144 [facility] Comment on above: Order Comment: Speci men Type: ARTERIAL BLOOD SPECIMENOrdering Facility: [facility] Address: [address] [place] [address] Performed By: #### A LLBG ####[facility] LABCLIA [id number] [place] [address] [place] Base excess Calc (Bld) [Moles/Vol] 0 mmol/L Normal 0-2 [facility] Comment on above: Order Comment: Speci men Type: ARTERIAL BLOOD SPECIMENOrdering Facility: [facility] Address: [address] [place] [address] Performed By: #### A LLBG ####[facility] LABIA [id number] [place] [address] [place] Body temperature 98.6 [degF] Normal [facility] Comment on above: Order Comment: Speci men Type: ARTERIAL BLOOD SPECIMENOrdering Facility: [facility] Address: [address] [place] [address] Performed By: #### A LLBG ####[facility] LABIA [id number] [place] [address] [place] Calcium.ionized (Bld) [Mass/Vol] 1.24 mmol/L Normal 1.08-1.30 [facility] Comment on above: Order Comment: Speci men Type: ARTERIAL BLOOD SPECIMENOrdering Facility: [facility] Address: [address] [place] [address] Performed By: #### A LLBG ####[facility] LABIA [id number] [place] [address] [place] Calcium.ionized adjusted to pH 7.4 (BldA) [Moles/Vol] 1.25 mmol/L Normal 1.08-1.30 [facility] Comment on above: Order Comment: Speci men Type: ARTERIAL BLOOD SPECIMENOrdering Facility: [facility] Address: [address] [place] [address] Performed By: #### A LLBG ####[facility] [id number] [place] [address] [place] Carboxyhemoglobin (BldA) [Mass fraction] 1.1 % Normal 0.0-2.0 [facility] Comment on above: Order Comment: Speci men Type: ARTERIAL BLOOD SPECIMENOrdering Facility: [facility] Address: [address] [place] [address] Result Comment: Carb oxyhemoglobin Reference Range for Smokers: 2.0-8.0% Performed By: #### A LLBG ####[facility] LABIA [id number] [place] [address] [place] CO2 (Bld) [Partial pressure] 38 mm Hg Normal 36-46 [facility] Comment on above: Order Comment: Speci men Type: ARTERIAL BLOOD SPECIMENOrdering Facility: [facility] Address: [address] [place] [address] Performed By: #### A LLBG ####[facility] LABIA [id number] [place] [address] [place] Glucose [Mass/Vol] 137 mg/dL High 60-105 [facility] Comment on above: Order Comment: Speci men Type: ARTERIAL BLOOD SPECIMENOrdering Facility: [facility] Address: [address] [place] [address] Performed By: #### A LLBG ####[facility] LABCLIA [id number] [place] [address] [place] HCO3 (Bld) [Moles/Vol] 24 mmol/L Normal 22-26 [facility] Comment on above: Order Comment: Speci men Type: ARTERIAL BLOOD SPECIMENOrdering Facility: [facility] Address: [address] [place] [address] Performed By: #### A LLBG ####[facility] LABCLIA [id number] [place] [address] [place] Hematocrit (Bld) [Volume fraction] 35.6 % Low 36.0-46.0 [facility] Comment on above: Order Comment: Speci men Type: ARTERIAL BLOOD SPECIMENOrdering Facility: [facility] Address: [address] [place] [address] Performed By: #### A LLBG ####[facility] LABCLIA [id number] [place] [address] [place] Hemoglobin (Bld) [Mass/Vol] 11.5 g/dL Normal 11.5-15.5 [facility] Comment on above: Order Comment: Speci men Type: ARTERIAL BLOOD SPECIMENOrdering Facility: [facility] Address: [address] [place] [address] Performed By: #### A LLBG ####[facility] LABCLIA [id number] [place] [address] [place] Lactate [Moles/Vol] 0.9 mmol/L Normal 0.5-2.2 [facility] Comment on above: Order Comment: Speci men Type: ARTERIAL BLOOD SPECIMENOrdering Facility: [facility] Address: [address] [place] [address] Performed By: #### A LLBG ####[facility] LABCLIA [id number] [place] [address] [place] 1 Liters/min Normal [facility] Comment on above: Order Comment: Speci men Type: ARTERIAL BLOOD SPECIMENOrdering Facility: [facility] Address: [address] [place] [id number] Performed By: #### A LLBG ####[facility] LABCLIA [id number] [address] [address] [place] Methemoglobin (Bld) [Mass fraction] 1.2 % Normal 0.0-1.5 [facility] Comment on above: Order Comment: Speci men Type: ARTERIAL BLOOD SPECIMENOrdering Facility: [facility] Address: [address] [place] [id number] Performed By: #### A LLBG ####[facility] LABCLIA [id number] [place] [address] [place] O2 THERAPY [place] = Nasal Cannula Normal [facility] Comment on above: Order Comment: Speci men Type: ARTERIAL BLOOD SPECIMENOrdering Facility: [facility] Address: [address] [id number] Performed By: #### A LLBG ####[facility] LABCLIA [id number] [place] [address] [place] Oxygen (Bld) [Partial pressure] 98 mm Hg High 85-95 [facility] Comment on above: Order Comment: Speci men Type: ARTERIAL BLOOD SPECIMENOrdering Facility: [facility] Address: [address] [id number] Performed By: #### A LLBG ####[facility] LABCLIA [id number] [place] [id number] [place] Oxyhemoglobin (BldA) [Mass fraction] 95 % Normal 95-98 [facility] Comment on above: Order Comment: Speci men Type: ARTERIAL BLOOD SPECIMENOrdering Facility: [facility] Address: [address] [id number] Performed By: #### A LLBG ####[facility] LABCLIA [id number] [place] [address] [place] pH (Bld) 7.41 [pH] Normal 7.35-7.45 [facility] Comment on above: Order Comment: Speci men Type: ARTERIAL BLOOD SPECIMENOrdering Facility: [facility] Address: [address] [place] [address] Performed By: #### A LLBG ####[facility] LABIA [id number] [place] [address] [place] Potassium [Moles/Vol] 4.2 mmol/L Normal 3.5-5.0 [facility] Comment on above: Order Comment: Speci men Type: ARTERIAL BLOOD SPECIMENOrdering Facility: [facility] Address: [address] [place] [address] Performed By: #### A LLBG ####[facility] LABIA [id number] [place] [address] [place] Sodium [Moles/Vol] 129 mmol/L Low 136-144 [facility] Comment on above: Order Comment: Speci men Type: ARTERIAL BLOOD SPECIMENOrdering Facility: [facility] Address: [address] [place] [address] Performed By: #### A LLBG ####[facility] LABIA [id number] [place] [address] [place] Base excess Calc (Bld) [Moles/Vol] 2 mmol/L Normal 0-2 [facility] Comment on above: Order Comment: Speci men Type: ARTERIAL BLOOD SPECIMENOrdering Facility: [facility] Address: [address] [place] [address] Performed By: #### A LLBG ####[facility] LABIA [id number] [place] [address] [place] Body temperature 98.6 [degF] Normal [facility] Comment on above: Order Comment: Speci men Type: ARTERIAL BLOOD SPECIMENOrdering Facility: [facility] Address: [address] [place] [address] Performed By: #### A LLBG ####[facility] [id number] [place] [address] [place] Calcium.ionized (Bld) [Mass/Vol] 1.26 mmol/L Normal 1.08-1.30 [facility] Comment on above: Order Comment: Speci men Type: ARTERIAL BLOOD SPECIMENOrdering Facility: [facility] Address: [address] [place] [address] Performed By: #### A LLBG ####[facility] [id number] [place] [address] [place] Calcium.ionized adjusted to pH 7.4 (BldA) [Moles/Vol] 1.28 mmol/L Normal 1.08-1.30 [facility] Comment on above: Order Comment: Speci men Type: ARTERIAL BLOOD SPECIMENOrdering Facility: [facility] Address: [address] [place] [address] Performed By: #### A LLBG ####[facility] [id number] [place] [address] [place] Carboxyhemoglobin (BldA) [Mass fraction] 1.8 % Normal 0.0-2.0 [facility] Comment on above: Order Comment: Speci men Type: ARTERIAL BLOOD SPECIMENOrdering Facility: [facility] Address: [address] [place] [address] Result Comment: Carb oxyhemoglobin Reference Range for Smokers: 2.0-8.0% Performed By: #### A LLBG ####[facility] [id number] [place] [address] [place] CO2 (Bld) [Partial pressure] 40 mm Hg Normal 36-46 [facility] Comment on above: Order Comment: Speci men Type: ARTERIAL BLOOD SPECIMENOrdering Facility: [facility] Address: [address] [place] [address] Performed By: #### A LLBG ####[facility] LABCLIA [id number] [place] [address] [place] Glucose [Mass/Vol] 118 mg/dL High 60-105 [facility] Comment on above: Order Comment: Speci men Type: ARTERIAL BLOOD SPECIMENOrdering Facility: [facility] Address: [address] [place] [address] Performed By: #### A LLBG ####[facility] LABCLIA [id number] [place] [address] [place] HCO3 (Bld) [Moles/Vol] 26 mmol/L Normal 22-26 [facility] Comment on above: Order Comment: Speci men Type: ARTERIAL BLOOD SPECIMENOrdering Facility: [facility] Address: [address] [place] [address] Performed By: #### A LLBG ####[facility] LABCLIA [id number] [place] [address] [place] Hematocrit (Bld) [Volume fraction] 37.5 % Normal 36.0-46.0 [facility] Comment on above: Order Comment: Speci men Type: ARTERIAL BLOOD SPECIMENOrdering Facility: [facility] Address: [address] [place] [address] Performed By: #### A LLBG ####[facility] LABCLIA [id number] [place] [address] [place] Hemoglobin (Bld) [Mass/Vol] 12.2 g/dL Normal 11.5-15.5 [facility] Comment on above: Order Comment: Speci men Type: ARTERIAL BLOOD SPECIMENOrdering Facility: [facility] Address: [address] [place] [address] Performed By: #### A LLBG ####[facility] LABCLIA [id number] [place] [address] [place] Lactate [Moles/Vol] 1.6 mmol/L Normal 0.5-2.2 [facility] Comment on above: Order Comment: Speci men Type: ARTERIAL BLOOD SPECIMENOrdering Facility: [facility] Address: [address] [place] [address] Performed By: #### A LLBG ####[facility] LABCLIA [id number] [place] [address] [place] Methemoglobin (Bld) [Mass fraction] 1.3 % Normal 0.0-1.5 [facility] Comment on above: Order Comment: Speci men Type: ARTERIAL BLOOD SPECIMENOrdering Facility: [facility] Address: [address] [place] [address] Performed By: #### A LLBG ####[facility] LABCLIA [id number] [place] [address] [place] O2 THERAPY NC = Nasal Cannula Normal [facility] Comment on above: Order Comment: Speci men Type: ARTERIAL BLOOD SPECIMENOrdering Facility: [facility] Address: [address] [place] [address] Performed By: #### A LLBG ####[facility] LABCLIA [id number] [place] [address] [place] Oxygen (Bld) [Partial pressure] 85 mm Hg Normal 85-95 [facility] Comment on above: Order Comment: Speci men Type: ARTERIAL BLOOD SPECIMENOrdering Facility: [facility] Address: [address] [place] [address] Performed By: #### A LLBG ####[facility] LABCLIA [id number] [place] [address] [place] Oxyhemoglobin (BldA) [Mass fraction] 94 % Low 95-98 [facility] Comment on above: Order Comment: Speci men Type: ARTERIAL BLOOD SPECIMENOrdering Facility: [facility] Address: [address] [place] [address] Performed By: #### A LLBG ####[facility] LABCLIA [id number] [place] [address] [place] pH (Bld) 7.42 [pH] Normal 7.35-7.45 [facility] Comment on above: Order Comment: Speci men Type: ARTERIAL BLOOD SPECIMENOrdering Facility: [facility] Address: [address] [place] [address] Performed By: #### A LLBG ####[facility] LABCLIA [id number] [place] [address] [place] Potassium [Moles/Vol] 4.4 mmol/L Normal 3.5-5.0 [facility] Comment on above: Order Comment: Speci men Type: ARTERIAL BLOOD SPECIMENOrdering Facility: [facility] Address: [address] [place] [address] Performed By: #### A LLBG ####[facility] LABCLIA [id number] [place] [address] [place] Sodium [Moles/Vol] 132 mmol/L Low 136-144 [facility] Comment on above: Order Comment: Speci men Type: ARTERIAL BLOOD SPECIMENOrdering Facility: [facility] Address: [address] [place] [address] Performed By: #### A LLBG ####[facility] LABCLIA [id number] [place] [address] [place] Base excess Calc (Bld) [Moles/Vol] 2 mmol/L Normal 0-2 [facility] Comment on above: Order Comment: Speci men Type: ARTERIAL BLOOD SPECIMENOrdering Facility: [facility] Address: [address] [place] [address] Performed By: #### A LLBG ####[facility] LABCLIA [id number] [place] [address] [place] Body temperature 98.6 [degF] Normal [facility] Comment on above: Order Comment: Speci men Type: ARTERIAL BLOOD SPECIMENOrdering Facility: [facility] Address: [address] [place] [address] Performed By: #### A LLBG ####[facility] LABIA [id number] [place] [address] [place] Calcium.ionized (Bld) [Mass/Vol] 1.25 mmol/L Normal 1.08-1.30 [facility] Comment on above: Order Comment: Speci men Type: ARTERIAL BLOOD SPECIMENOrdering Facility: [facility] Address: [address] [place] [address] Performed By: #### A LLBG ####[facility] LABIA [id number] [place] [address] [place] Calcium.ionized adjusted to pH 7.4 (BldA) [Moles/Vol] 1.24 mmol/L Normal 1.08-1.30 [facility] Comment on above: Order Comment: Speci men Type: ARTERIAL BLOOD SPECIMENOrdering Facility: [facility] Address: [address] [place] [address] Performed By: #### A LLBG ####[facility] LABIA [id number] [place] [address] [place] Carboxyhemoglobin (BldA) [Mass fraction] 1.5 % Normal 0.0-2.0 [facility] Comment on above: Order Comment: Speci men Type: ARTERIAL BLOOD SPECIMENOrdering Facility: [facility] Address: [address] [place] [address] Result Comment: Carb oxyhemoglobin Reference Range for Smokers: 2.0-8.0% Performed By: #### A LLBG ####[facility] LABIA [id number] [place] [address] [place] CO2 (Bld) [Partial pressure] 44 mm Hg Normal 36-46 [facility] Comment on above: Order Comment: Speci men Type: ARTERIAL BLOOD SPECIMENOrdering Facility: [facility] Address: [address] [place] [address] Performed By: #### A LLBG ####[facility] LABCLIA [id number] [place] [address] [place] Glucose [Mass/Vol] 139 mg/dL High 60-105 [facility] Comment on above: Order Comment: Speci men Type: ARTERIAL BLOOD SPECIMENOrdering Facility: [facility] Address: [address] [place] [address] Performed By: #### A LLBG ####[facility] LABCLIA [id number] [place] [address] [place] HCO3 (Bld) [Moles/Vol] 27 mmol/L High 22-26 [facility] Comment on above: Order Comment: Speci men Type: ARTERIAL BLOOD SPECIMENOrdering Facility: [facility] Address: [address] [place] [address] Performed By: #### A LLBG ####[facility] LABCLIA [id number] [place] [address] [place] Hematocrit (Bld) [Volume fraction] 37.0 % Normal 36.0-46.0 [facility] Comment on above: Order Comment: Speci men Type: ARTERIAL BLOOD SPECIMENOrdering Facility: [facility] Address: [address] [place] [address] Performed By: #### A LLBG ####[facility] LABCLIA [id number] [place] [address] [place] Hemoglobin (Bld) [Mass/Vol] 12.0 g/dL Normal 11.5-15.5 [facility] Comment on above: Order Comment: Speci men Type: ARTERIAL BLOOD SPECIMENOrdering Facility: [facility] Address: [address] [place] [address] Performed By: #### A LLBG ####[facility] LABCLIA [id number] [place] [address] [place] Lactate [Moles/Vol] 1.6 mmol/L Normal 0.5-2.2 [facility] Comment on above: Order Comment: Speci men Type: ARTERIAL BLOOD SPECIMENOrdering Facility: [facility] Address: [address] [place] [address] Performed By: #### A LLBG ####[facility] LABCLIA [id number] [place] [address] [place] Methemoglobin (Bld) [Mass fraction] 1.5 % Normal 0.0-1.5 [facility] Comment on above: Order Comment: Speci men Type: ARTERIAL BLOOD SPECIMENOrdering Facility: [facility] Address: [address] [place] [address] Performed By: #### A LLBG ####[facility] LABCLIA [id number] [place] [address] [place] O2 THERAPY NC = Nasal Cannula Normal [facility] Comment on above: Order Comment: Speci men Type: ARTERIAL BLOOD SPECIMENOrdering Facility: [facility] Address: [address] [place] [address] Performed By: #### A LLBG ####[facility] LABCLIA [id number] [place] [address] [place] Oxygen (Bld) [Partial pressure] 106 mm Hg High 85-95 [facility] Comment on above: Order Comment: Speci men Type: ARTERIAL BLOOD SPECIMENOrdering Facility: [facility] Address: [address] [place] [address] Performed By: #### A LLBG ####[facility] LABCLIA [id number] [place] [address] [place] Oxyhemoglobin (BldA) [Mass fraction] 95 % Normal 95-98 [facility] Comment on above: Order Comment: Speci men Type: ARTERIAL BLOOD SPECIMENOrdering Facility: [facility] Address: [address] [place] [address] Performed By: #### A LLBG ####[facility] LABCLIA [id number] [place] [address] [place] pH (Bld) 7.40 [pH] Normal 7.35-7.45 [facility] Comment on above: Order Comment: Speci men Type: ARTERIAL BLOOD SPECIMENOrdering Facility: [facility] Address: [address] [place] [address] Performed By: #### A LLBG ####[facility] LABCLIA [id number] [place] [address] [place] Potassium [Moles/Vol] 4.2 mmol/L Normal 3.5-5.0 [facility] Comment on above: Order Comment: Speci men Type: ARTERIAL BLOOD SPECIMENOrdering Facility: [facility] Address: [address] [place] [address] Performed By: #### A LLBG ####[facility] LABIA [id number] [place] [address] [place] Sodium [Moles/Vol] 131 mmol/L Low 136-144 [facility] Comment on above: Order Comment: Speci men Type: ARTERIAL BLOOD SPECIMENOrdering Facility: [facility] Address: [address] [place] [address] Performed By: #### A LLBG ####[facility] LABIA [id number] [place] [address] [place] Base excess Calc (Bld) [Moles/Vol] 1 mmol/L Normal 0-2 [facility] Comment on above: Order Comment: Speci men Type: ARTERIAL BLOOD SPECIMENOrdering Facility: [facility] Address: [address] [place] [address] Performed By: #### A LLBG ####[facility] LABIA [id number] [place] [address] [place] Body temperature 98.6 [degF] Normal [facility] Comment on above: Order Comment: Speci men Type: ARTERIAL BLOOD SPECIMENOrdering Facility: [facility] Address: [address] [place] [address] Performed By: #### A LLBG ####[facility] LABCLIA [id number] [place] [address] [place] Calcium.ionized (Bld) [Mass/Vol] 1.28 mmol/L Normal 1.08-1.30 [facility] Comment on above: Order Comment: Speci men Type: ARTERIAL BLOOD SPECIMENOrdering Facility: [facility] Address: [address] [place] [address] Performed By: #### A LLBG ####[facility] LABIA [id number] [place] [address] [place] Calcium.ionized adjusted to pH 7.4 (BldA) [Moles/Vol] 1.28 mmol/L Normal 1.08-1.30 [facility] Comment on above: Order Comment: Speci men Type: ARTERIAL BLOOD SPECIMENOrdering Facility: [facility] Address: [address] [place] [address] Performed By: #### A LLBG ####[facility] LABIA [id number] [place] [address] [place] Carboxyhemoglobin (BldA) [Mass fraction] 1.1 % Normal 0.0-2.0 [facility] Comment on above: Order Comment: Speci men Type: ARTERIAL BLOOD SPECIMENOrdering Facility: [facility] Address: [address] [place] [address] Result Comment: Carb oxyhemoglobin Reference Range for Smokers: 2.0-8.0% Performed By: #### A LLBG ####[facility] LABIA [id number] [place] [address] [place] CO2 (Bld) [Partial pressure] 42 mm Hg Normal 36-46 [facility] Comment on above: Order Comment: Speci men Type: ARTERIAL BLOOD SPECIMENOrdering Facility: [facility] Address: [address] [place] [address] Performed By: #### A LLBG ####[facility] LABCLIA [id number] [place] [address] [place] Glucose [Mass/Vol] 153 mg/dL High 60-105 [facility] Comment on above: Order Comment: Speci men Type: ARTERIAL BLOOD SPECIMENOrdering Facility: [facility] Address: [address] [place] [address] Performed By: #### A LLBG ####[facility] LABCLIA [id number] [place] [address] [place] HCO3 (Bld) [Moles/Vol] 25 mmol/L Normal 22-26 [facility] Comment on above: Order Comment: Speci men Type: ARTERIAL BLOOD SPECIMENOrdering Facility: [facility] Address: [address] [place] [address] Performed By: #### A LLBG ####[facility] LABCLIA [id number] [place] [address] [place] Hematocrit (Bld) [Volume fraction] 37.6 % Normal 36.0-46.0 [facility] Comment on above: Order Comment: Speci men Type: ARTERIAL BLOOD SPECIMENOrdering Facility: [facility] Address: [address] [place] [address] Performed By: #### A LLBG ####[facility] LABCLIA [id number] [place] [address] [place] Hemoglobin (Bld) [Mass/Vol] 12.2 g/dL Normal 11.5-15.5 [facility] Comment on above: Order Comment: Speci men Type: ARTERIAL BLOOD SPECIMENOrdering Facility: [facility] Address: [address] [place] [address] Performed By: #### A LLBG ####[facility] LABCLIA [id number] [place] [address] [place] Lactate [Moles/Vol] 2.0 mmol/L Normal 0.5-2.2 [facility] Comment on above: Order Comment: Speci men Type: ARTERIAL BLOOD SPECIMENOrdering Facility: [facility] Address: [address] [place], [place] [id number] Performed By: #### A LLBG ####[facility] LABCLIA [id number] [place] [address] [place] Methemoglobin (Bld) [Mass fraction] 1.2 % Normal 0.0-1.5 [facility] Comment on above: Order Comment: Speci men Type: ARTERIAL BLOOD SPECIMENOrdering Facility: [facility] Address: [address] [place] [address] Performed By: #### A LLBG ####[facility] LABCLIA [id number] [place] [address] [place] O2 THERAPY NC = Nasal Cannula Normal [facility] Comment on above: Order Comment: Speci men Type: ARTERIAL BLOOD SPECIMENOrdering Facility: [facility] Address: [address] [place] [address] Performed By: #### A LLBG ####[facility] LABCLIA [id number] [place] [address] [place] Oxygen (Bld) [Partial pressure] 115 mm Hg High 85-95 [facility] Comment on above: Order Comment: Speci men Type: ARTERIAL BLOOD SPECIMENOrdering Facility: [facility] Address: [address] [place] [address] Performed By: #### A LLBG ####[facility] LABCLIA [id number] [place] [id number] [place] Oxyhemoglobin (BldA) [Mass fraction] 96 % Normal 95-98 [facility] Comment on above: Order Comment: Speci men Type: ARTERIAL BLOOD SPECIMENOrdering Facility: [facility] Address: [address] [place] [address] Performed By: #### A LLBG ####[facility] LABIA [id number] [place] [address] [place] pH (Bld) 7.40 [pH] Normal 7.35-7.45 [facility] Comment on above: Order Comment: Speci men Type: ARTERIAL BLOOD SPECIMENOrdering Facility: [facility] Address: [address] [place] [address] Performed By: #### A LLBG ####[facility] LABIA [id number] [place] [address] [place] Potassium [Moles/Vol] 4.5 mmol/L Normal 3.5-5.0 [facility] Comment on above: Order Comment: Speci men Type: ARTERIAL BLOOD SPECIMENOrdering Facility: [facility] Address: [address] [place] [address] Performed By: #### A LLBG ####[facility] LABIA [id number] [place] [address] [place] Sodium [Moles/Vol] 132 mmol/L Low 136-144 [facility] Comment on above: Order Comment: Speci men Type: ARTERIAL BLOOD SPECIMENOrdering Facility: [facility] Address: [address] [place] [address] Performed By: #### A LLBG ####[facility] LABIA [id number] [place] [address] [place] CASE MGT INIT ASSESon 2023 CASE MGT INIT ASSES Normal [facility] CBC panel Auto (Bld)on 07-30 Erythrocyte distribution width (RBC) [Ratio] 12.1 % Normal 11.5-15.0 [facility] Comment on above: Order Comment: Speci men Type: BLOOD SPECIMENOrdering Facility: [facility] Address: [address] [place] [address] Performed By: #### 5 8410-2 ####[facility] LABIA [id number] [place] [address] [place] Hematocrit (Bld) [Volume fraction] 34.5 % Low 36.0-46.0 [facility] Comment on above: Order Comment: Speci men Type: BLOOD SPECIMENOrdering Facility: [facility] Address: [address] [place] [address] Performed By: #### 5 8410-2 ####[facility] LABIA [id number] [place] [address] [place] Hemoglobin (Bld) [Mass/Vol] 12.0 g/dL Normal 11.5-15.5 [facility] Comment on above: Order Comment: Speci men Type: BLOOD SPECIMENOrdering Facility: [facility] Address: [address] [place] [address] Performed By: #### 5 8410-2 ####[facility] [id number] [place] [address] [place] MCH (RBC) [Entitic mass] 31.6 pg Normal 26.0-34.0 [facility] Comment on above: Order Comment: Speci men Type: BLOOD SPECIMENOrdering Facility: [facility] Address: [address] [place] [address] Performed By: #### 5 8410-2 ####[facility] LABIA [id number] [place] [address] [place] MCHC (RBC) [Mass/Vol] 34.8 g/dL Normal 30.5-36.0 [facility] Comment on above: Order Comment: Speci men Type: BLOOD SPECIMENOrdering Facility: [facility] Address: [address] [place] [address] Performed By: #### 5 8410-2 ####[facility] [id number] [place] [address] [place] MCV (RBC) [Entitic vol] 90.8 fL Normal 80.0-100.0 [facility] Comment on above: Order Comment: Speci men Type: BLOOD SPECIMENOrdering Facility: [facility] Address: [address] [place] [address] Performed By: #### 5 8410-2 ####[facility] LABCLIA [id number] [place] [address] [place] Nucleated RBC (Bld) [#/Vol] 10*3/uL Normal <0.01 [facility] Comment on above: Order Comment: Speci men Type: BLOOD SPECIMENOrdering Facility: [facility] Address: [address] [place] [address] Performed By: #### 5 8410-2 ####[facility] LABCLIA [id number] [place] [address] [place] Platelet mean volume (Bld) [Entitic vol] 9.7 fL Normal 9.0-12.7 [facility] Comment on above: Order Comment: Speci men Type: BLOOD SPECIMENOrdering Facility: [facility] Address: [address] [place] [address] Performed By: #### 5 8410-2 ####[facility] LABIA [id number] [place] [address] [place] Platelets (Bld) [#/Vol] 169 10*3/uL Normal 150-400 [facility] Comment on above: Order Comment: Speci men Type: BLOOD SPECIMENOrdering Facility: [facility] Address: [address] [place] [address] Performed By: #### 5 8410-2 ####[facility] LABCLIA [id number] [place] [address] [place] RBC (Bld) [#/Vol] 3.80 10*6/uL Low 3.90-5.20 [facility] Comment on above: Order Comment: Speci men Type: BLOOD SPECIMENOrdering Facility: [facility] Address: [address] [place] [address] Performed By: #### 5 8410-2 ####[facility] LABCLIA [id number] [place] [address] [place] WBC (Bld) [#/Vol] 10.11 10*3/uL Normal 3.70-11.00 [facility] Comment on above: Order Comment: Speci men Type: BLOOD SPECIMENOrdering Facility: [facility] Address: [address] [place] [address] Performed By: #### 5 8410-2 ####[facility] LABIA [id number] [place] [address] [place] Comprehensive metabolic 2000 panelon 07-30-2023 Albumin [Mass/Vol] 3.1 g/dL Low 3.9-4.9 [facility] Comment on above: Order Comment: Speci men Type: BLOOD SPECIMENOrdering Facility: [facility] Address: [address] [place] [address] Performed By: #### 2 4323-8, HSTNT ####[facility] LABIA [id number] [place] [address] [place] ALP [Catalytic activity/Vol] 56 U/L Normal 34-123 [facility] Comment on above: Order Comment: Speci men Type: BLOOD SPECIMENOrdering Facility: [facility] Address: [address] [place] [address] Performed By: #### 2 4323-8, HSTNT ####[facility] LABCLIA [id number] [place] [address] [place] ALT [Catalytic activity/Vol] 14 U/L Normal 7-38 [facility] Comment on above: Order Comment: Speci men Type: BLOOD SPECIMENOrdering Facility: [facility] Address: [address] [place] [address] Performed By: #### 2 4323-8, HSTNT ####[facility] LABCLIA [id number] [place] [address] [place] Anion gap [Moles/Vol] 10 mmol/L Normal 9-18 [facility] Comment on above: Order Comment: Speci men Type: BLOOD SPECIMENOrdering Facility: [facility] Address: [address] [place] [address] Performed By: #### 2 4323-8, HSTNT ####[facility] LABCLIA [id number] [place] [address] [place] AST [Catalytic activity/Vol] 29 U/L Normal 13-35 [facility] Comment on above: Order Comment: Speci men Type: BLOOD SPECIMENOrdering Facility: [facility] Address: [address] [place] [address] Performed By: #### 2 4323-8, HSTNT ####[facility] LABCLIA [id number] [place] [address] [place] Bilirubin [Mass/Vol] 0.4 mg/dL Normal 0.2-1.3 [facility] Comment on above: Order Comment: Speci men Type: BLOOD SPECIMENOrdering Facility: [facility] Address: [address] [place] [address] Performed By: #### 2 4323-8, HSTNT ####[facility] LABCLIA [id number] [place] [address] [place] Calcium [Mass/Vol] 8.9 mg/dL Normal 8.5-10.2 [facility] Comment on above: Order Comment: Speci men Type: BLOOD SPECIMENOrdering Facility: [facility] Address: [address] [place] [address] Performed By: #### 2 4323-8, HSTNT ####[facility] LABCLIA [id number] [place] [address] [place] Chloride [Moles/Vol] 101 mmol/L Normal 97-105 [facility] Comment on above: Order Comment: Speci men Type: BLOOD SPECIMENOrdering Facility: [facility] Address: [address] [place] [address] Performed By: #### 2 4323-8, HSTNT ####[facility] LABCLIA [id number] [place] [address] [place] CO2 [Moles/Vol] 23 mmol/L Normal 22-30 [facility] Comment on above: Order Comment: Speci men Type: BLOOD SPECIMENOrdering Facility: [facility] Address: [address] [place] [address] Performed By: #### 2 4323-8, HSTNT ####[facility] LABCLIA [id number] [place] [address] [place] Creatinine [Mass/Vol] 0.70 mg/dL Normal 0.58-0.96 [facility] Comment on above: Order Comment: Speci men Type: BLOOD SPECIMENOrdering Facility: [facility] Address: [address] [place] [address] Performed By: #### 2 4323-8, HSTNT ####[facility] LABCLIA [id number] [place] [address] [place] Creatinine and Glomerular filtration rate.predicted panel (S/P/Bld) 96 mL/min/1.73m??? Normal >=60 [facility] Comment on above: Order Comment: Speci men Type: BLOOD SPECIMENOrdering Facility: [facility] Address: [address] [place] [address] Result Comment: Annelise mated Glomerular Filtration Rate [...] GFR. Performed By: #### 2 4323-8, HSTNT ####[facility] LABCLIA [id number] [place] [address] [place] Glucose [Mass/Vol] 145 mg/dL High 74-99 [facility] Comment on above: Order Comment: Speci men Type: BLOOD SPECIMENOrdering Facility: [facility] Address: [address] [place] [address] Result Comment: The [place] [employer] (ADA) provides guidance for cutoff [...] Standards of Medical Care in Diabetes 2016, [place] [employer]. Diabetes Care. 2016.39(Suppl 1). Performed By: #### 2 4323-8, HSTNT ####[facility] LABIA [id number] [place] [address] [place] Potassium [Moles/Vol] 4.7 mmol/L Normal 3.7-5.1 [facility] Comment on above: Order Comment: Speci men Type: BLOOD SPECIMENOrdering Facility: [facility] Address: [address] [place] [address] Performed By: #### 2 4323-8, HSTNT ####[facility] LABIA [id number] [place] [address] [place] Protein [Mass/Vol] 5.2 g/dL Low 6.3-8.0 [facility] Comment on above: Order Comment: Speci men Type: BLOOD SPECIMENOrdering Facility: [facility] Address: [address] [place] [address] Performed By: #### 2 4323-8, HSTNT ####[facility] LABCLIA [id number] [place] [address] [place] Sodium [Moles/Vol] 134 mmol/L Low 136-144 [facility] Comment on above: Order Comment: Speci men Type: BLOOD SPECIMENOrdering Facility: [facility] Address: [address] [place] [address] Performed By: #### 2 4323-8, HSTNT ####[facility] LABCLIA [id number] [place] [address] [place] Urea nitrogen [Mass/Vol] 20 mg/dL Normal 7-21 [facility] Comment on above: Order Comment: Speci men Type: BLOOD SPECIMENOrdering Facility: [facility] Address: [address] [place] [address] Performed By: #### 2 4323-8, HSTNT ####[facility] LABCLIA [id number] [place] [address] [place] HIGH SENSITIVITY TROPONIN To n 07-30-2023 Troponin T.cardiac High sensitivity method [Mass/Vol] 317 ng/L High <12 [facility] Comment on above: Order Comment: Speci men Type: BLOOD SPECIMENOrdering Facility: [facility] Address: [address] [place] [address] Result Comment: When assessing risk for acute [...] MACE. Performed By: #### 2 4323-8, HSTNT ####[facility] LABCLIA [id number] [place] [id number] [place] XR CHEST 1V FRONTAL PORTon 0 07-30-2023 XR CHEST 1V FRONTAL PORT Normal [facility] ANES POSTPROC EVALon 024 ANES POSTPROC EVAL Normal [facility] ANES PRE-OPon 07-29-2023 ANES PRE-OP Normal [facility] ARTERIAL BLOOD GASESon 07-29 Base excess Calc (Bld) [Moles/Vol] 1 mmol/L Normal 0-2 [facility] Comment on above: Order Comment: Speci men Type: ARTERIAL BLOOD SPECIMENOrdering Facility: [facility] Address: [address] [place] [address] Performed By: #### A LLBG ####[facility] LABCLIA [id number] [place] [address] [place] Body temperature 98.6 [degF] Normal [facility] Comment on above: Order Comment: Speci men Type: ARTERIAL BLOOD SPECIMENOrdering Facility: [facility] Address: [address] [place] [address] Performed By: #### A LLBG ####[facility] LABCLIA [id number] [place] [address] [place] Calcium.ionized (Bld) [Mass/Vol] 1.26 mmol/L Normal 1.08-1.30 [facility] Comment on above: Order Comment: Speci men Type: ARTERIAL BLOOD SPECIMENOrdering Facility: [facility] Address: [address] [place] [address] Performed By: #### A LLBG ####[facility] LABCLIA [id number] [place] [address] [place] Calcium.ionized adjusted to pH 7.4 (BldA) [Moles/Vol] 1.25 mmol/L Normal 1.08-1.30 [facility] Comment on above: Order Comment: Speci men Type: ARTERIAL BLOOD SPECIMENOrdering Facility: [facility] Address: [address] [place] [address] Performed By: #### A LLBG ####[facility] LABCLIA [id number] [place] [address] [place] Carboxyhemoglobin (BldA) [Mass fraction] 1.2 % Normal 0.0-2.0 [facility] Comment on above: Order Comment: Speci men Type: ARTERIAL BLOOD SPECIMENOrdering Facility: [facility] Address: [address] [place] [address] Result Comment: Carb oxyhemoglobin Reference Range for Smokers: 2.0-8.0% Performed By: #### A LLBG ####[facility] LABIA [id number] [place] [address] [place] CO2 (Bld) [Partial pressure] 43 mm Hg Normal 36-46 [facility] Comment on above: Order Comment: Speci men Type: ARTERIAL BLOOD SPECIMENOrdering Facility: [facility] Address: [address] [place] [address] Performed By: #### A LLBG ####[facility] LABIA [id number] [place] [address] [place] Glucose [Mass/Vol] 164 mg/dL High 60-105 [facility] Comment on above: Order Comment: Speci men Type: ARTERIAL BLOOD SPECIMENOrdering Facility: [facility] Address: [address] [place] [address] Performed By: #### A LLBG ####[facility] LABIA [id number] [place] [address] [place] HCO3 (Bld) [Moles/Vol] 26 mmol/L Normal 22-26 [facility] Comment on above: Order Comment: Speci men Type: ARTERIAL BLOOD SPECIMENOrdering Facility: [facility] Address: [address] [place] [address] Performed By: #### A LLBG ####[facility] LABIA [id number] [place] [address] [place] Hematocrit (Bld) [Volume fraction] 36.7 % Normal 36.0-46.0 [facility] Comment on above: Order Comment: Speci men Type: ARTERIAL BLOOD SPECIMENOrdering Facility: [facility] Address: [address] [place] [address] Performed By: #### A LLBG ####[facility] [id number] [place] [address] [place] Hemoglobin (Bld) [Mass/Vol] 11.9 g/dL Normal 11.5-15.5 [facility] Comment on above: Order Comment: Speci men Type: ARTERIAL BLOOD SPECIMENOrdering Facility: [facility] Address: [address] [place] [address] Performed By: #### A LLBG ####[facility] [id number] [place] [address] [place] Lactate [Moles/Vol] 1.1 mmol/L Normal 0.5-2.2 [facility] Comment on above: Order Comment: Speci men Type: ARTERIAL BLOOD SPECIMENOrdering Facility: [facility] Address: [address] [place] [address] Performed By: #### A LLBG ####[facility] [id number] [place] [address] [place] Methemoglobin (Bld) [Mass fraction] 0.9 % Normal 0.0-1.5 [facility] Comment on above: Order Comment: Speci men Type: ARTERIAL BLOOD SPECIMENOrdering Facility: [facility] Address: [address] [place] [address] Performed By: #### A LLBG ####[facility] [id number] [place] [address] [place] O2 THERAPY NC = Nasal Cannula Normal [facility] Comment on above: Order Comment: Speci men Type: ARTERIAL BLOOD SPECIMENOrdering Facility: [facility] Address: [address] [place] [address] Performed By: #### A LLBG ####[facility] LABCLIA [id number] [place] [address] [place] Oxygen (Bld) [Partial pressure] 95 mm Hg Normal 85-95 [facility] Comment on above: Order Comment: Speci men Type: ARTERIAL BLOOD SPECIMENOrdering Facility: [facility] Address: [address] [place] [address] Performed By: #### A LLBG ####[facility] LABCLIA [id number] [place] [address] [place] Oxyhemoglobin (BldA) [Mass fraction] 96 % Normal 95-98 [facility] Comment on above: Order Comment: Speci men Type: ARTERIAL BLOOD SPECIMENOrdering Facility: [facility] Address: [address] [place] [address] Performed By: #### A LLBG ####[facility] LABCLIA [id number] [place] [address] [place] pH (Bld) 7.39 [pH] Normal 7.35-7.45 [facility] Comment on above: Order Comment: Speci men Type: ARTERIAL BLOOD SPECIMENOrdering Facility: [facility] Address: [address] [place] [address] Performed By: #### A LLBG ####[facility] LABCLIA [id number] [place] [address] [place] Potassium [Moles/Vol] 4.4 mmol/L Normal 3.5-5.0 [facility] Comment on above: Order Comment: Speci men Type: ARTERIAL BLOOD SPECIMENOrdering Facility: [facility] Address: [address] [place] [address] Performed By: #### A LLBG ####[facility] LABCLIA [id number] [place] [address] [place] Sodium [Moles/Vol] 132 mmol/L Low 136-144 [facility] Comment on above: Order Comment: Speci men Type: ARTERIAL BLOOD SPECIMENOrdering Facility: [facility] Address: [address] [place] [address] Performed By: #### A LLBG ####[facility] LABCLIA [id number] [place] [address] [place] Base excess Calc (Bld) [Moles/Vol] 0 mmol/L Normal 0-2 [facility] Comment on above: Order Comment: Speci men Type: ARTERIAL BLOOD SPECIMENOrdering Facility: [facility] Address: [address] [place] [address] Performed By: #### A LLBG ####[facility] LABIA [id number] [place] [address] [place] Body temperature 98.6 [degF] Normal [facility] Comment on above: Order Comment: Speci men Type: ARTERIAL BLOOD SPECIMENOrdering Facility: [facility] Address: [address] [place] [address] Performed By: #### A LLBG ####[facility] LABCLIA [id number] [place] [address] [place] Calcium.ionized (Bld) [Mass/Vol] 1.28 mmol/L Normal 1.08-1.30 [facility] Comment on above: Order Comment: Speci men Type: ARTERIAL BLOOD SPECIMENOrdering Facility: [facility] Address: [address] [place] [address] Performed By: #### A LLBG ####[facility] LABCLIA [id number] [place] [address] [place] Calcium.ionized adjusted to pH 7.4 (BldA) [Moles/Vol] 1.26 mmol/L Normal 1.08-1.30 [facility] Comment on above: Order Comment: Speci men Type: ARTERIAL BLOOD SPECIMENOrdering Facility: [facility] Address: [address] [place] [address] Performed By: #### A LLBG ####[facility] LABCLIA [id number] [place] [address] [place] Carboxyhemoglobin (BldA) [Mass fraction] 1.9 % Normal 0.0-2.0 [facility] Comment on above: Order Comment: Speci men Type: ARTERIAL BLOOD SPECIMENOrdering Facility: [facility] Address: [address] [place] [address] Result Comment: Carb oxyhemoglobin Reference Range for Smokers: 2.0-8.0% Performed By: #### A LLBG ####[facility] LABCLIA [id number] [place] [address] [place] CO2 (Bld) [Partial pressure] 45 mm Hg Normal 36-46 [facility] Comment on above: Order Comment: Speci men Type: ARTERIAL BLOOD SPECIMENOrdering Facility: [facility] Address: [address] [place] [address] Performed By: #### A LLBG ####[facility] LABCLIA [id number] [place] [address] [place] Glucose [Mass/Vol] 143 mg/dL High 60-105 [facility] Comment on above: Order Comment: Speci men Type: ARTERIAL BLOOD SPECIMENOrdering Facility: [facility] Address: [address] [place] [address] Performed By: #### A LLBG ####[facility] LABCLIA [id number] [place] [address] [place] HCO3 (Bld) [Moles/Vol] 25 mmol/L Normal 22-26 [facility] Comment on above: Order Comment: Speci men Type: ARTERIAL BLOOD SPECIMENOrdering Facility: [facility] Address: [address] [place] [address] Performed By: #### A LLBG ####[facility] LABCLIA [id number] [place] [address] [place] Hematocrit (Bld) [Volume fraction] 36.2 % Normal 36.0-46.0 [facility] Comment on above: Order Comment: Speci men Type: ARTERIAL BLOOD SPECIMENOrdering Facility: [facility] Address: [address] [place] [address] Performed By: #### A LLBG ####[facility] LABIA [id number] [place] [address] [place] Hemoglobin (Bld) [Mass/Vol] 11.7 g/dL Normal 11.5-15.5 [facility] Comment on above: Order Comment: Speci men Type: ARTERIAL BLOOD SPECIMENOrdering Facility: [facility] Address: [address] [place] [address] Performed By: #### A LLBG ####[facility] LABIA [id number] [place] [address] [place] Lactate [Moles/Vol] 2.3 mmol/L High 0.5-2.2 [facility] Comment on above: Order Comment: Speci men Type: ARTERIAL BLOOD SPECIMENOrdering Facility: [facility] Address: [address] [place] [address] Performed By: #### A LLBG ####[facility] LABIA [id number] [place] [address] [place] Methemoglobin (Bld) [Mass fraction] 0.7 % Normal 0.0-1.5 [facility] Comment on above: Order Comment: Speci men Type: ARTERIAL BLOOD SPECIMENOrdering Facility: [facility] Address: [address] [place] [address] Performed By: #### A LLBG ####[facility] LABIA [id number] [place] [address] [place] O2 THERAPY NC = Nasal Cannula Normal [facility] Comment on above: Order Comment: Speci men Type: ARTERIAL BLOOD SPECIMENOrdering Facility: [facility] Address: [address] [place] [address] Performed By: #### A LLBG ####[facility] LABCLIA [id number] [place] [address] [place] Oxygen (Bld) [Partial pressure] 95 mm Hg Normal 85-95 [facility] Comment on above: Order Comment: Speci men Type: ARTERIAL BLOOD SPECIMENOrdering Facility: [facility] Address: [address] [place] [address] Performed By: #### A LLBG ####[facility] LABIA [id number] [place] [address] [place] Oxyhemoglobin (BldA) [Mass fraction] 95 % Normal 95-98 [facility] Comment on above: Order Comment: Speci men Type: ARTERIAL BLOOD SPECIMENOrdering Facility: [facility] Address: [address] [place] [address] Performed By: #### A LLBG ####[facility] LABIA [id number] [place] [address] [place] pH (Bld) 7.37 [pH] Normal 7.35-7.45 [facility] Comment on above: Order Comment: Speci men Type: ARTERIAL BLOOD SPECIMENOrdering Facility: [facility] Address: [address] [place] [address] Performed By: #### A LLBG ####[facility] LABIA [id number] [place] [address] [place] Potassium [Moles/Vol] 4.4 mmol/L Normal 3.5-5.0 [facility] Comment on above: Order Comment: Speci men Type: ARTERIAL BLOOD SPECIMENOrdering Facility: [facility] Address: [address] [place] [address] Performed By: #### A LLBG ####[facility] LABIA [id number] [place] [address] [place] Sodium [Moles/Vol] 134 mmol/L Low 136-144 [facility] Comment on above: Order Comment: Speci men Type: ARTERIAL BLOOD SPECIMENOrdering Facility: [facility] Address: [address] [place] [address] Performed By: #### A LLBG ####[facility] LABIA [id number] [place] [address] [place] Base deficit (BldA) [Moles/Vol] -1 mmol/L Normal -2-0 [facility] Comment on above: Order Comment: Speci men Type: ARTERIAL BLOOD SPECIMENOrdering Facility: [facility] Address: [address] [place] [address] Performed By: #### A LLBG ####[facility] LABIA [id number] [place] [address] [place] Body temperature 98.6 [degF] Normal [facility] Comment on above: Order Comment: Speci men Type: ARTERIAL BLOOD SPECIMENOrdering Facility: [facility] Address: [address] [place] [address] Performed By: #### A LLBG ####[facility] LABIA [id number] [place] [address] [place] Calcium.ionized (Bld) [Mass/Vol] 1.29 mmol/L Normal 1.08-1.30 [facility] Comment on above: Order Comment: Speci men Type: ARTERIAL BLOOD SPECIMENOrdering Facility: [facility] Address: [address] [place] [address] Performed By: #### A LLBG ####[facility] LABIA [id number] [place] [address] [place] Calcium.ionized adjusted to pH 7.4 (BldA) [Moles/Vol] 1.25 mmol/L Normal 1.08-1.30 [facility] Comment on above: Order Comment: Speci men Type: ARTERIAL BLOOD SPECIMENOrdering Facility: [facility] Address: [address] [place] [address] Performed By: #### A LLBG ####[facility] LABCLIA [id number] [place] [address] [place] Carboxyhemoglobin (BldA) [Mass fraction] 1.7 % Normal 0.0-2.0 [facility] Comment on above: Order Comment: Speci men Type: ARTERIAL BLOOD SPECIMENOrdering Facility: [facility] Address: [address] [place] [address] Result Comment: Carb oxyhemoglobin Reference Range for Smokers: 2.0-8.0% Performed By: #### A LLBG ####[facility] LABCL[facility] [id number] [place] [address] [place] CO2 (Bld) [Partial pressure] 47 mm Hg High 36-46 [facility] Comment on above: Order Comment: Speci men Type: ARTERIAL BLOOD SPECIMENOrdering Facility: [facility] Address: [address] [place] [address] Performed By: #### A LLBG ####[facility] LABIA [id number] [place] [address] [place] Glucose [Mass/Vol] 216 mg/dL High 60-105 [facility] Comment on above: Order Comment: Speci men Type: ARTERIAL BLOOD SPECIMENOrdering Facility: [facility] Address: [address] [place] [address] Performed By: #### A LLBG ####[facility] LABCLIA [id number] [place] [address] [place] HCO3 (Bld) [Moles/Vol] 25 mmol/L Normal 22-26 [facility] Comment on above: Order Comment: Speci men Type: ARTERIAL BLOOD SPECIMENOrdering Facility: [facility] Address: [address] [place] [address] Performed By: #### A LLBG ####[facility] LABCL[facility] [id number] [place] [id number] [place] Hematocrit (Bld) [Volume fraction] 38.2 % Normal 36.0-46.0 [facility] Comment on above: Order Comment: Speci men Type: ARTERIAL BLOOD SPECIMENOrdering Facility: [facility] Address: [address] [place] [address] Performed By: #### A LLBG ####[facility] LABCL[facility] [id number] [place] [address] [place] Hemoglobin (Bld) [Mass/Vol] 12.4 g/dL Normal 11.5-15.5 [facility] Comment on above: Order Comment: Speci men Type: ARTERIAL BLOOD SPECIMENOrdering Facility: [facility] Address: [address] [place] [address] Performed By: #### A LLBG ####[facility]CL[facility] [id number] [place] [address] [place] OF GAIL Lactate [Moles/Vol] 1.2 mmol/L Normal 0.5-2.2 [facility] Comment on above: Order Comment: Speci men Type: ARTERIAL BLOOD SPECIMENOrdering Facility: [facility] Address: [address] [place] [address] Performed By: #### A LLBG ####[facility] LABCLIA [id number] [place] [address] [place] Methemoglobin (Bld) [Mass fraction] 0.8 % Normal 0.0-1.5 [facility] Comment on above: Order Comment: Speci men Type: ARTERIAL BLOOD SPECIMENOrdering Facility: [facility] Address: [address] [place] [address] Performed By: #### A LLBG ####[facility] LABCLIA [id number] [place] [address] [place] O2 THERAPY NC = Nasal Cannula Normal [facility] Comment on above: Order Comment: Speci men Type: ARTERIAL BLOOD SPECIMENOrdering Facility: [facility] Address: [address] [place] [address] Performed By: #### A LLBG ####[facility] LABIA [id number] [place] [address] [place] Oxygen (Bld) [Partial pressure] 127 mm Hg High 85-95 [facility] Comment on above: Order Comment: Speci men Type: ARTERIAL BLOOD SPECIMENOrdering Facility: [facility] Address: [address] [place] [address] Performed By: #### A LLBG ####[facility] LABIA [id number] [place] [address] [place] Oxyhemoglobin (BldA) [Mass fraction] 96 % Normal 95-98 [facility] Comment on above: Order Comment: Speci men Type: ARTERIAL BLOOD SPECIMENOrdering Facility: [facility] Address: [address] [place] [address] Performed By: #### A LLBG ####[facility] LABIA [id number] [place] [address] [place] pH (Bld) 7.34 [pH] Low 7.35-7.45 [facility] Comment on above: Order Comment: Speci men Type: ARTERIAL BLOOD SPECIMENOrdering Facility: [facility] Address: [address] [place] [address] Performed By: #### A LLBG ####[facility] LABIA [id number] [place] [address] [place] Potassium [Moles/Vol] 4.2 mmol/L Normal 3.5-5.0 [facility] Comment on above: Order Comment: Speci men Type: ARTERIAL BLOOD SPECIMENOrdering Facility: [facility] Address: [address] [place] [address] Performed By: #### A LLBG ####[facility] LABIA [id number] [place] [address] [place] Sodium [Moles/Vol] 134 mmol/L Low 136-144 [facility] Comment on above: Order Comment: Speci men Type: ARTERIAL BLOOD SPECIMENOrdering Facility: [facility] Address: [address] [place] [address] Performed By: #### A LLBG ####[facility] LABCLIA [id number] [place] [address] [place] Base excess Calc (Bld) [Moles/Vol] 0 mmol/L Normal 0-2 [facility] Comment on above: Order Comment: Speci men Type: ARTERIAL BLOOD SPECIMENOrdering Facility: [facility] Address: [address] [place] [address] Performed By: #### A LLBG ####[facility] LABCLIA [id number] [place] [address] [place] Body temperature 98.6 [degF] Normal [facility] Comment on above: Order Comment: Speci men Type: ARTERIAL BLOOD SPECIMENOrdering Facility: [facility] Address: [address] [place] [address] Performed By: #### A LLBG ####[facility] LABCLIA [id number] [place] [address] [place] Calcium.ionized (Bld) [Mass/Vol] 1.28 mmol/L Normal 1.08-1.30 [facility] Comment on above: Order Comment: Speci men Type: ARTERIAL BLOOD SPECIMENOrdering Facility: [facility] Address: [address] [place] [address] Performed By: #### A LLBG ####[facility] LABCLIA [id number] [place] [address] [place] Calcium.ionized adjusted to pH 7.4 (BldA) [Moles/Vol] 1.27 mmol/L Normal 1.08-1.30 [facility] Comment on above: Order Comment: Speci men Type: ARTERIAL BLOOD SPECIMENOrdering Facility: [facility] Address: [address] [place] [address] Performed By: #### A LLBG ####[facility] LABCLIA [id number] [place] [address] [place] Carboxyhemoglobin (BldA) [Mass fraction] 1.1 % Normal 0.0-2.0 [facility] Comment on above: Order Comment: Speci men Type: ARTERIAL BLOOD SPECIMENOrdering Facility: [facility] Address: [address] [place] [address] Result Comment: Carb oxyhemoglobin Reference Range for Smokers: 2.0-8.0% Performed By: #### A LLBG ####[facility] LABCLIA [id number] [place] [address] [place] CO2 (Bld) [Partial pressure] 43 mm Hg Normal 36-46 [facility] Comment on above: Order Comment: Speci men Type: ARTERIAL BLOOD SPECIMENOrdering Facility: [facility] Address: [address] [place] [address] Performed By: #### A LLBG ####[facility] LABCLIA [id number] [place] [address] [place] Glucose [Mass/Vol] 186 mg/dL High 60-105 [facility] Comment on above: Order Comment: Speci men Type: ARTERIAL BLOOD SPECIMENOrdering Facility: [facility] Address: [address] [place] [address] Performed By: #### A LLBG ####[facility] LABCLIA [id number] [place] [address] [place] HCO3 (Bld) [Moles/Vol] 25 mmol/L Normal 22-26 [facility] Comment on above: Order Comment: Speci men Type: ARTERIAL BLOOD SPECIMENOrdering Facility: [facility] Address: [address] [place] [address] Performed By: #### A LLBG ####[facility] LABCLIA [id number] [place] [address] [place] Hematocrit (Bld) [Volume fraction] 38.5 % Normal 36.0-46.0 [facility] Comment on above: Order Comment: Speci men Type: ARTERIAL BLOOD SPECIMENOrdering Facility: [facility] Address: [address] [place] [address] Performed By: #### A LLBG ####[facility] LABCLIA [id number] [place] [address] [place] Hemoglobin (Bld) [Mass/Vol] 12.5 g/dL Normal 11.5-15.5 [facility] Comment on above: Order Comment: Speci men Type: ARTERIAL BLOOD SPECIMENOrdering Facility: [facility] Address: [address] [place] [address] Performed By: #### A LLBG ####[facility] LABCLIA [id number] [place] [address] [place] Lactate [Moles/Vol] 1.0 mmol/L Normal 0.5-2.2 [facility] Comment on above: Order Comment: Speci men Type: ARTERIAL BLOOD SPECIMENOrdering Facility: [facility] Address: [address] [place] [address] Performed By: #### A LLBG ####[facility] LABCLIA [id number] [place] [address] [place] Methemoglobin (Bld) [Mass fraction] 0.8 % Normal 0.0-1.5 [facility] Comment on above: Order Comment: Speci men Type: ARTERIAL BLOOD SPECIMENOrdering Facility: [facility] Address: [address] [place] [address] Performed By: #### A LLBG ####[facility] LABCLIA [id number] [place] [address] [place] O2 THERAPY Positive Normal [facility] Comment on above: Order Comment: Speci men Type: ARTERIAL BLOOD SPECIMENOrdering Facility: [facility] Address: [address] [place] [address] Performed By: #### A LLBG ####[facility] LABCLIA [id number] [place] [address] [place] Oxygen (Bld) [Partial pressure] 117 mm Hg High 85-95 [facility] Comment on above: Order Comment: Speci men Type: ARTERIAL BLOOD SPECIMENOrdering Facility: [facility] Address: [address] [place] [address] Performed By: #### A LLBG ####[facility] LABCLIA [id number] [place] [address] [place] Oxyhemoglobin (BldA) [Mass fraction] 95 % Normal 95-98 [facility] Comment on above: Order Comment: Speci men Type: ARTERIAL BLOOD SPECIMENOrdering Facility: [facility] Address: [address] [place] [address] Performed By: #### A LLBG ####[facility] LABIA [id number] [place] [address] [place] pH (Bld) 7.38 [pH] Normal 7.35-7.45 [facility] Comment on above: Order Comment: Speci men Type: ARTERIAL BLOOD SPECIMENOrdering Facility: [facility] Address: [address] [place] [address] Performed By: #### A LLBG ####[facility] LABCLIA [id number] [place] [address] [place] Potassium [Moles/Vol] 4.6 mmol/L Normal 3.5-5.0 [facility] Comment on above: Order Comment: Speci men Type: ARTERIAL BLOOD SPECIMENOrdering Facility: [facility] Address: [address] [place] [address] Performed By: #### A LLBG ####[facility] LABCLIA [id number] [place] [id number] [place] Sodium [Moles/Vol] 134 mmol/L Low 136-144 [facility] Comment on above: Order Comment: Speci men Type: ARTERIAL BLOOD SPECIMENOrdering Facility: [facility] Address: [address] [place] [address] Performed By: #### A LLBG ####[facility] LABCLIA [id number] [place] [address] [place] Base excess Calc (Bld) [Moles/Vol] 1 mmol/L Normal 0-2 [facility] Comment on above: Order Comment: Speci men Type: ARTERIAL BLOOD SPECIMENOrdering Facility: [facility] Address: [address] [place] [address] Performed By: #### A LLBG ####[facility] LABCLIA [id number] [place] [address] [place] Body temperature 98.6 [degF] Normal [facility] Comment on above: Order Comment: Speci men Type: ARTERIAL BLOOD SPECIMENOrdering Facility: [facility] Address: [address] [place] [address] Performed By: #### A LLBG ####[facility] LABCLIA [id number] [place] [address] [place] Calcium.ionized (Bld) [Mass/Vol] 1.33 mmol/L High 1.08-1.30 [facility] Comment on above: Order Comment: Speci men Type: ARTERIAL BLOOD SPECIMENOrdering Facility: [facility] Address: [address] [place] [address] Performed By: #### A LLBG ####[facility] LABCLIA [id number] [place] [address] [place] Calcium.ionized adjusted to pH 7.4 (BldA) [Moles/Vol] 1.31 mmol/L High 1.08-1.30 [facility] Comment on above: Order Comment: Speci men Type: ARTERIAL BLOOD SPECIMENOrdering Facility: [facility] Address: [address] [place] [address] Performed By: #### A LLBG ####[facility] LABCLIA [id number] [place] [address] [place] Carboxyhemoglobin (BldA) [Mass fraction] 1.5 % Normal 0.0-2.0 [facility] Comment on above: Order Comment: Speci men Type: ARTERIAL BLOOD SPECIMENOrdering Facility: [facility] Address: [address] [place] [address] Result Comment: Carb oxyhemoglobin Reference Range for Smokers: 2.0-8.0% Performed By: #### A LLBG ####[facility] LABCLIA [id number] [place] [address] [place] CO2 (Bld) [Partial pressure] 45 mm Hg Normal 36-46 [facility] Comment on above: Order Comment: Speci men Type: ARTERIAL BLOOD SPECIMENOrdering Facility: [facility] Address: [address] [place] [address] Performed By: #### A LLBG ####[facility] LABCLIA [id number] [place] [address] [place] FIO2 40 % Normal [facility] Comment on above: Order Comment: Speci men Type: ARTERIAL BLOOD SPECIMENOrdering Facility: [facility] Address: [address] [place] [address] Performed By: #### A LLBG ####[facility] LABCLIA [id number] [place] [address] [place] Glucose [Mass/Vol] 122 mg/dL High 60-105 [facility] Comment on above: Order Comment: Speci men Type: ARTERIAL BLOOD SPECIMENOrdering Facility: [facility] Address: [address] [place] [address] Performed By: #### A LLBG ####[facility] LABCLIA [id number] [place] [address] [place] HCO3 (Bld) [Moles/Vol] 26 mmol/L Normal 22-26 [facility] Comment on above: Order Comment: Speci men Type: ARTERIAL BLOOD SPECIMENOrdering Facility: [facility] Address: [address] [place] [address] Performed By: #### A LLBG ####[facility] LABCLIA [id number] [place] [address] [place] Hematocrit (Bld) [Volume fraction] 38.3 % Normal 36.0-46.0 [facility] Comment on above: Order Comment: Speci men Type: ARTERIAL BLOOD SPECIMENOrdering Facility: [facility] Address: [address] [place] [address] Performed By: #### A LLBG ####[facility] LABCLIA [id number] [place] [address] [place] Hemoglobin (Bld) [Mass/Vol] 12.5 g/dL Normal 11.5-15.5 [facility] Comment on above: Order Comment: Speci men Type: ARTERIAL BLOOD SPECIMENOrdering Facility: [facility] Address: [address] [place] [address] Performed By: #### A LLBG ####[facility] LABIA [id number] [place] [address] [place] Lactate [Moles/Vol] 2.5 mmol/L High 0.5-2.2 [facility] Comment on above: Order Comment: Speci men Type: ARTERIAL BLOOD SPECIMENOrdering Facility: [facility] Address: [address] [place] [address] Performed By: #### A LLBG ####[facility] LABCLIA [id number] [place] [address] [place] Methemoglobin (Bld) [Mass fraction] 1.5 % Normal 0.0-1.5 [facility] Comment on above: Order Comment: Speci men Type: ARTERIAL BLOOD SPECIMENOrdering Facility: [facility] Address: [address] [place] [address] Performed By: #### A LLBG ####[facility] LABCLIA [id number] [place] [id number] [place] O2 THERAPY Ventilator Normal [facility] Comment on above: Order Comment: Speci men Type: ARTERIAL BLOOD SPECIMENOrdering Facility: [facility] Address: [address] [place] [address] Performed By: #### A LLBG ####[facility] LABCLIA [id number] [place] [address] [place] Oxygen (Bld) [Partial pressure] 179 mm Hg High 85-95 [facility] Comment on above: Order Comment: Speci men Type: ARTERIAL BLOOD SPECIMENOrdering Facility: [facility] Address: [address] [place] [address] Performed By: #### A LLBG ####[facility] LABCLIA [id number] [place] [address] [place] Oxyhemoglobin (BldA) [Mass fraction] 96 % Normal 95-98 [facility] Comment on above: Order Comment: Speci men Type: ARTERIAL BLOOD SPECIMENOrdering Facility: [facility] Address: [address] [place] [address] Performed By: #### A LLBG ####[facility] LABCLIA [id number] [place] [id number] [place] pH (Bld) 7.37 [pH] Normal 7.35-7.45 [facility] Comment on above: Order Comment: Speci men Type: ARTERIAL BLOOD SPECIMENOrdering Facility: [facility] Address: [address] [place] [address] Performed By: #### A LLBG ####[facility] LABCLIA [id number] [place] [id number] [place] PO2 / FIO2 RATIO 448 mmHg Normal >300 [facility] Comment on above: Order Comment: Speci men Type: ARTERIAL BLOOD SPECIMENOrdering Facility: [facility] Address: [address] [place] [address] Performed By: #### A LLBG ####[facility] LABCLIA [id number] [place] [address] [place] Potassium [Moles/Vol] 4.8 mmol/L Normal 3.5-5.0 [facility] Comment on above: Order Comment: Speci men Type: ARTERIAL BLOOD SPECIMENOrdering Facility: [facility] Address: [address] [place] [address] Performed By: #### A LLBG ####[facility] LABCLIA [id number] [place] [address] [place] Sodium [Moles/Vol] 135 mmol/L Low 136-144 [facility] Comment on above: Order Comment: Speci men Type: ARTERIAL BLOOD SPECIMENOrdering Facility: [facility] Address: [address] [place] [address] Performed By: #### A LLBG ####[facility] LABCLIA [id number] [place] [address] [place] Base deficit (BldA) [Moles/Vol] -1 mmol/L Normal -2-0 [facility] Comment on above: Order Comment: Speci men Type: ARTERIAL BLOOD SPECIMENOrdering Facility: [facility] Address: [address] [place] [address] Performed By: #### A LLBG ####[facility] LABIA [id number] [place] [address] [place] Calcium.ionized (Bld) [Mass/Vol] 1.26 mmol/L Normal 1.08-1.30 [facility] Comment on above: Order Comment: Speci men Type: ARTERIAL BLOOD SPECIMENOrdering Facility: [facility] Address: [address] [place] [address] Performed By: #### A LLBG ####[facility] LABCLIA [id number] [place] [address] [place] Calcium.ionized adjusted to pH 7.4 (BldA) [Moles/Vol] 1.22 mmol/L Normal 1.08-1.30 [facility] Comment on above: Order Comment: Speci men Type: ARTERIAL BLOOD SPECIMENOrdering Facility: [facility] Address: [address] [place] [address] Performed By: #### A LLBG ####[facility] LABCLIA [id number] [place] [address] [place] Carboxyhemoglobin (BldA) [Mass fraction] 1.6 % Normal 0.0-2.0 [facility] Comment on above: Order Comment: Speci men Type: ARTERIAL BLOOD SPECIMENOrdering Facility: [facility] Address: [address] [place] [address] Result Comment: Carb oxyhemoglobin Reference Range for Smokers: 2.0-8.0% Performed By: #### A LLBG ####[facility] LABCLIA [id number] [place] [address] [place] CO2 (Bld) [Partial pressure] 49 mm Hg High 36-46 [facility] Comment on above: Order Comment: Speci men Type: ARTERIAL BLOOD SPECIMENOrdering Facility: [facility] Address: [address] [place] [address] Performed By: #### A LLBG ####[facility] LABCLIA [id number] [place] [address] [place] CO2 adjusted to patient's actual temperature (Bld) [Partial pressure] 49 mmHg High 36-46 [facility] Comment on above: Order Comment: Speci men Type: ARTERIAL BLOOD SPECIMENOrdering Facility: [facility] Address: [address] [place] [address] Performed By: #### A LLBG ####[facility] LABCLIA [id number] [place] [address] [place] Glucose [Mass/Vol] 140 mg/dL High 60-105 [facility] Comment on above: Order Comment: Speci men Type: ARTERIAL BLOOD SPECIMENOrdering Facility: [facility] Address: [address] [place] [address] Performed By: #### A LLBG ####[facility] LABCLIA [id number] [place] [address] [place] HCO3 (Bld) [Moles/Vol] 25 mmol/L Normal 22-26 [facility] Comment on above: Order Comment: Speci men Type: ARTERIAL BLOOD SPECIMENOrdering Facility: [facility] Address: [address] [place] [address] Performed By: #### A LLBG ####[facility] LABCLIA [id number] [place] [address] [place] Hematocrit (Bld) [Volume fraction] 30.8 % Low 36.0-46.0 [facility] Comment on above: Order Comment: Speci men Type: ARTERIAL BLOOD SPECIMENOrdering Facility: [facility] Address: [address] [place] [address] Performed By: #### A LLBG ####[facility] LABCLIA [id number] [place] [address] [place] Hemoglobin (Bld) [Mass/Vol] 10.0 g/dL Low 11.5-15.5 [facility] Comment on above: Order Comment: Speci men Type: ARTERIAL BLOOD SPECIMENOrdering Facility: [facility] Address: [address] [place] [address] Performed By: #### A LLBG ####[facility] LABCLIA [id number] [place] [address] [place] Lactate [Moles/Vol] 2.6 mmol/L High 0.5-2.2 [facility] Comment on above: Order Comment: Speci men Type: ARTERIAL BLOOD SPECIMENOrdering Facility: [facility] Address: [address] [place] [address] Performed By: #### A LLBG ####[facility] LABCLIA [id number] [address] [address] [place] Methemoglobin (Bld) [Mass fraction] 1.5 % Normal 0.0-1.5 [facility] Comment on above: Order Comment: Speci men Type: ARTERIAL BLOOD SPECIMENOrdering Facility: [facility] Address: [address] [place] [id number] Performed By: #### A LLBG ####[facility] LABCLIA [id number] [place] [id number] [place] Oxygen (Bld) [Partial pressure] 200 mm Hg High 85-95 [facility] Comment on above: Order Comment: Speci men Type: ARTERIAL BLOOD SPECIMENOrdering Facility: [facility] Address: [address] [place] [id number] Performed By: #### A LLBG ####[facility] LABCLIA [id number] [place] [address] [place] Oxygen adjusted to patient's actual temperature (Bld) [Partial pressure] 200 mmHg High 85-95 [facility] Comment on above: Order Comment: Speci men Type: ARTERIAL BLOOD SPECIMENOrdering Facility: [facility] Address: [address] [place] [address] Performed By: #### A LLBG ####[facility] LABCLIA [id number] [address] [address] [place] Oxyhemoglobin (BldA) [Mass fraction] 96 % Normal 95-98 [facility] Comment on above: Order Comment: Speci men Type: ARTERIAL BLOOD SPECIMENOrdering Facility: [facility] Address: [address] [place] [address] Performed By: #### A LLBG ####[facility] LABCLIA [id number] [place] [address] [place] pH (Bld) 7.33 [pH] Low 7.35-7.45 [facility] Comment on above: Order Comment: Speci men Type: ARTERIAL BLOOD SPECIMENOrdering Facility: [facility] Address: [address] [place] [address] Performed By: #### A LLBG ####[facility] LABCLIA [id number] [place] [address] [place] pH adjusted to patient's actual temperature (Bld) 7.33 Low 7.35-7.45 [facility] Comment on above: Order Comment: Speci men Type: ARTERIAL BLOOD SPECIMENOrdering Facility: [facility] Address: [address] [place] [address] Performed By: #### A LLBG ####[facility] LABIA [id number] [place] [address] [place] Potassium [Moles/Vol] 3.6 mmol/L Normal 3.5-5.0 [facility] Comment on above: Order Comment: Speci men Type: ARTERIAL BLOOD SPECIMENOrdering Facility: [facility] Address: [address] [place] [address] Performed By: #### A LLBG ####[facility] LABIA [id number] [place] [address] [place] Sodium [Moles/Vol] 134 mmol/L Low 136-144 [facility] Comment on above: Order Comment: Speci men Type: ARTERIAL BLOOD SPECIMENOrdering Facility: [facility] Address: [address] [place] [address] Performed By: #### A LLBG ####[facility] LABCLIA [id number] [place] [address] [place] Base excess Calc (Bld) [Moles/Vol] 0 mmol/L Normal 0-2 [facility] Comment on above: Order Comment: Speci men Type: ARTERIAL BLOOD SPECIMENOrdering Facility: [facility] Address: [address] [place] [address] Performed By: #### A LLBG ####[facility] LABCLIA [id number] [place] [address] [place] Calcium.ionized (Bld) [Mass/Vol] 1.10 mmol/L Normal 1.08-1.30 [facility] Comment on above: Order Comment: Speci men Type: ARTERIAL BLOOD SPECIMENOrdering Facility: [facility] Address: [address] [place] [address] Performed By: #### A LLBG ####[facility] LABIA [id number] [place] [address] [place] Calcium.ionized adjusted to pH 7.4 (BldA) [Moles/Vol] 1.11 mmol/L Normal 1.08-1.30 [facility] Comment on above: Order Comment: Speci men Type: ARTERIAL BLOOD SPECIMENOrdering Facility: [facility] Address: [address] [place] [address] Performed By: #### A LLBG ####[facility] [id number] [place] [address] [place] Carboxyhemoglobin (BldA) [Mass fraction] 2.1 % High 0.0-2.0 [facility] Comment on above: Order Comment: Speci men Type: ARTERIAL BLOOD SPECIMENOrdering Facility: [facility] Address: [address] [place] [address] Result Comment: Carb oxyhemoglobin Reference Range for Smokers: 2.0-8.0% Performed By: #### A LLBG ####[facility] [id number] [place] [address] [place] CO2 (Bld) [Partial pressure] 39 mm Hg Normal 36-46 [facility] Comment on above: Order Comment: Speci men Type: ARTERIAL BLOOD SPECIMENOrdering Facility: [facility] Address: [address] [place] [address] Performed By: #### A LLBG ####[facility] LABCLIA [id number] [place] [address] [place] CO2 adjusted to patient's actual temperature (Bld) [Partial pressure] 39 mmHg Normal 36-46 [facility] Comment on above: Order Comment: Speci men Type: ARTERIAL BLOOD SPECIMENOrdering Facility: [facility] Address: [address] [place] [address] Performed By: #### A LLBG ####[facility]CLIA [id number] [place] [address] [place] Glucose [Mass/Vol] 209 mg/dL High 60-105 [facility] Comment on above: Order Comment: Speci men Type: ARTERIAL BLOOD SPECIMENOrdering Facility: [facility] Address: [address] [place] [address] Performed By: #### A LLBG ####[facility]CLIA [id number] [place] [address] [place] HCO3 (Bld) [Moles/Vol] 24 mmol/L Normal 22-26 [facility] Comment on above: Order Comment: Speci men Type: ARTERIAL BLOOD SPECIMENOrdering Facility: [facility] Address: [address] [place] [address] Performed By: #### A LLBG ####[facility]CL[facility] [id number] [place] [address] [place] Hematocrit (Bld) [Volume fraction] 28.4 % Low 36.0-46.0 [facility] Comment on above: Order Comment: Speci men Type: ARTERIAL BLOOD SPECIMENOrdering Facility: [facility] Address: [address] [place] [address] Performed By: #### A LLBG ####[facility]CL[facility] [id number] [place] [address] [place] Hemoglobin (Bld) [Mass/Vol] 9.1 g/dL Low 11.5-15.5 [facility] Comment on above: Order Comment: Speci men Type: ARTERIAL BLOOD SPECIMENOrdering Facility: [facility] Address: [address] [place] [address] Performed By: #### A LLBG ####[facility]CLIA [id number] [place] [address] [place] Lactate [Moles/Vol] 3.9 mmol/L High 0.5-2.2 [facility] Comment on above: Order Comment: Speci men Type: ARTERIAL BLOOD SPECIMENOrdering Facility: [facility] Address: [address] [place] [address] Performed By: #### A LLBG ####[facility]CL[facility] [id number] [place] [address] [place] Methemoglobin (Bld) [Mass fraction] 0.9 % Normal 0.0-1.5 [facility] Comment on above: Order Comment: Speci men Type: ARTERIAL BLOOD SPECIMENOrdering Facility: [facility] Address: [address] [place] [address] Performed By: #### A LLBG ####[facility]CLIA [id number] [place] [address] [place] Oxygen (Bld) [Partial pressure] 376 mm Hg High 85-95 [facility] Comment on above: Order Comment: Speci men Type: ARTERIAL BLOOD SPECIMENOrdering Facility: [facility] Address: [address] [place] [address] Performed By: #### A LLBG ####[facility]CL[facility] [id number] [place] [address] [place] Oxygen adjusted to patient's actual temperature (Bld) [Partial pressure] 376 mmHg High 85-95 [facility] Comment on above: Order Comment: Speci men Type: ARTERIAL BLOOD SPECIMENOrdering Facility: [facility] Address: [address] [place] [address] Performed By: #### A LLBG ####[facility]CL[facility] [id number] [place] [address] [place] Oxyhemoglobin (BldA) [Mass fraction] 97 % Normal 95-98 [facility] Comment on above: Order Comment: Speci men Type: ARTERIAL BLOOD SPECIMENOrdering Facility: [facility] Address: [address] [place] [address] Performed By: #### A LLBG ####[facility]CL[facility] [id number] [place] [address] [place] pH (Bld) 7.41 [pH] Normal 7.35-7.45 [facility] Comment on above: Order Comment: Speci men Type: ARTERIAL BLOOD SPECIMENOrdering Facility: [facility] Address: [address] [place] [address] Performed By: #### A LLBG ####[facility]CLIA [id number] [place] [address] [place] pH adjusted to patient's actual temperature (Bld) 7.41 Normal 7.35-7.45 [facility] Comment on above: Order Comment: Speci men Type: ARTERIAL BLOOD SPECIMENOrdering Facility: [facility] Address: [address] [place] [address] Performed By: #### A LLBG ####[facility]CL[facility] [id number] [place] [address] [place] Potassium [Moles/Vol] 4.4 mmol/L Normal 3.5-5.0 [facility] Comment on above: Order Comment: Speci men Type: ARTERIAL BLOOD SPECIMENOrdering Facility: [facility] Address: [address] [place] [address] Performed By: #### A LLBG ####[facility]CL[facility] [id number] [place] [address] [place] Sodium [Moles/Vol] 133 mmol/L Low 136-144 [facility] Comment on above: Order Comment: Speci men Type: ARTERIAL BLOOD SPECIMENOrdering Facility: [facility] Address: [address] [place] [address] Performed By: #### A LLBG ####[facility] [id number] [place] [address] [place] Base excess Calc (Bld) [Moles/Vol] 0 mmol/L Normal 0-2 [facility] Comment on above: Order Comment: Speci men Type: ARTERIAL BLOOD SPECIMENOrdering Facility: [facility] Address: [address] [place] [address] Performed By: #### A LLBG ####[facility] [id number] [place] [address] [place] Calcium.ionized (Bld) [Mass/Vol] 1.08 mmol/L Normal 1.08-1.30 [facility] Comment on above: Order Comment: Speci men Type: ARTERIAL BLOOD SPECIMENOrdering Facility: [facility] Address: [address] [place] [address] Performed By: #### A LLBG ####[facility] [id number] [place] [address] [place] Calcium.ionized adjusted to pH 7.4 (BldA) [Moles/Vol] 1.06 mmol/L Low 1.08-1.30 [facility] Comment on above: Order Comment: Speci men Type: ARTERIAL BLOOD SPECIMENOrdering Facility: [facility] Address: [address] [place] [address] Performed By: #### A LLBG ####[facility] [id number] [place] [address] [place] Carboxyhemoglobin (BldA) [Mass fraction] 2.0 % Normal 0.0-2.0 [facility] Comment on above: Order Comment: Speci men Type: ARTERIAL BLOOD SPECIMENOrdering Facility: [facility] Address: [address] [place] [address] Result Comment: Carb oxyhemoglobin Reference Range for Smokers: 2.0-8.0% Performed By: #### A LLBG ####[facility]CLIA [id number] [place] [address] [place] CO2 (Bld) [Partial pressure] 44 mm Hg Normal 36-46 [facility] Comment on above: Order Comment: Speci men Type: ARTERIAL BLOOD SPECIMENOrdering Facility: [facility] Address: [address] [place] [address] Performed By: #### A LLBG ####[facility]CLIA [id number] [place] [address] [place] CO2 adjusted to patient's actual temperature (Bld) [Partial pressure] 44 mmHg Normal 36-46 [facility] Comment on above: Order Comment: Speci men Type: ARTERIAL BLOOD SPECIMENOrdering Facility: [facility] Address: [address] [place] [address] Performed By: #### A LLBG ####[facility]CL[facility] [id number] [place] [address] [place] Glucose [Mass/Vol] 253 mg/dL High 60-105 [facility] Comment on above: Order Comment: Speci men Type: ARTERIAL BLOOD SPECIMENOrdering Facility: [facility] Address: [address] [place] [address] Performed By: #### A LLBG ####[facility]CLIA [id number] [place] [address] [place] HCO3 (Bld) [Moles/Vol] 25 mmol/L Normal 22-26 [facility] Comment on above: Order Comment: Speci men Type: ARTERIAL BLOOD SPECIMENOrdering Facility: [facility] Address: [address] [place] [address] Performed By: #### A LLBG ####[facility]CLIA [id number] [place] [address] [place] Hematocrit (Bld) [Volume fraction] 28.3 % Low 36.0-46.0 [facility] Comment on above: Order Comment: Speci men Type: ARTERIAL BLOOD SPECIMENOrdering Facility: [facility] Address: [address] [place] [address] Performed By: #### A LLBG ####[facility] [id number] [place] [address] [place] Hemoglobin (Bld) [Mass/Vol] 9.1 g/dL Low 11.5-15.5 [facility] Comment on above: Order Comment: Speci men Type: ARTERIAL BLOOD SPECIMENOrdering Facility: [facility] Address: [address] [place] [address] Performed By: #### A LLBG ####[facility] [id number] [place] [address] [place] Lactate [Moles/Vol] 4.4 mmol/L High 0.5-2.2 [facility] Comment on above: Order Comment: Speci men Type: ARTERIAL BLOOD SPECIMENOrdering Facility: [facility] Address: [address] [place] [address] Performed By: #### A LLBG ####[facility] [id number] [place] [address] [place] Methemoglobin (Bld) [Mass fraction] 0.9 % Normal 0.0-1.5 [facility] Comment on above: Order Comment: Speci men Type: ARTERIAL BLOOD SPECIMENOrdering Facility: [facility] Address: [address] [place] [address] Performed By: #### A LLBG ####[facility]IA [id number] [place] [address] [id number] [address] [place] Oxygen (Bld) [Partial pressure] 295 mm Hg High 85-95 [facility] Comment on above: Order Comment: Speci men Type: ARTERIAL BLOOD SPECIMENOrdering Facility: [facility] Address: [address] [place] [address] Performed By: #### A LLBG ####[facility]CLIA [id number] [address] [address] [place] Oxygen adjusted to patient's actual temperature (Bld) [Partial pressure] 295 mmHg High 85-95 [facility] Comment on above: Order Comment: Speci men Type: ARTERIAL BLOOD SPECIMENOrdering Facility: [facility] Address: [address] [place] [address] Performed By: #### A LLBG ####[facility]CLIA [id number] [place] [address] [place] Oxyhemoglobin (BldA) [Mass fraction] 97 % Normal 95-98 [facility] Comment on above: Order Comment: Speci men Type: ARTERIAL BLOOD SPECIMENOrdering Facility: [facility] Address: [address] [place] [address] Performed By: #### A LLBG ####[facility]CL[facility] [id number] [place] [address] [place] pH (Bld) 7.37 [pH] Normal 7.35-7.45 [facility] Comment on above: Order Comment: Speci men Type: ARTERIAL BLOOD SPECIMENOrdering Facility: [facility] Address: [address] [place] [address] Performed By: #### A LLBG ####[facility]CL[facility] [id number] [place] [address] [place] pH adjusted to patient's actual temperature (Bld) 7.37 Normal 7.35-7.45 [facility] Comment on above: Order Comment: Speci men Type: ARTERIAL BLOOD SPECIMENOrdering Facility: [facility] Address: [address] [place], [place] [id number] Performed By: #### A LLBG ####[facility]CL[facility] [id number] [place] [address] [place] Potassium [Moles/Vol] 4.9 mmol/L Normal 3.5-5.0 [facility] Comment on above: Order Comment: Speci men Type: ARTERIAL BLOOD SPECIMENOrdering Facility: [facility] Address: [address] [place] [address] Performed By: #### A LLBG ####[facility]CLIA [id number] [place] [address] [place] Sodium [Moles/Vol] 132 mmol/L Low 136-144 [facility] Comment on above: Order Comment: Speci men Type: ARTERIAL BLOOD SPECIMENOrdering Facility: [facility] Address: [address] [place] [address] Performed By: #### A LLBG ####[facility]CL[facility] [id number] [place] [address] [place] Base deficit (BldA) [Moles/Vol] -3 mmol/L Low -2-0 [facility] Comment on above: Order Comment: Speci men Type: ARTERIAL BLOOD SPECIMENOrdering Facility: [facility] Address: [address] [place] [address] Performed By: #### A LLBG ####[facility]CL[facility] [id number] [place] [address] [place] Calcium.ionized (Bld) [Mass/Vol] 1.20 mmol/L Normal 1.08-1.30 [facility] Comment on above: Order Comment: Speci men Type: ARTERIAL BLOOD SPECIMENOrdering Facility: [facility] Address: [address] [place] [address] Performed By: #### A LLBG ####[facility] [id number] [place] [address] [place] Calcium.ionized adjusted to pH 7.4 (BldA) [Moles/Vol] 1.18 mmol/L Normal 1.08-1.30 [facility] Comment on above: Order Comment: Speci men Type: ARTERIAL BLOOD SPECIMENOrdering Facility: [facility] Address: [address] [place] [address] Performed By: #### A LLBG ####[facility]CLIA [id number] [place] [address] [place] Carboxyhemoglobin (BldA) [Mass fraction] 1.6 % Normal 0.0-2.0 [facility] Comment on above: Order Comment: Speci men Type: ARTERIAL BLOOD SPECIMENOrdering Facility: [facility] Address: [address] [place] [address] Result Comment: Carb oxyhemoglobin Reference Range for Smokers: 2.0-8.0% Performed By: #### A LLBG ####[facility]CL[facility] [id number] [place] [address] [place] CO2 (Bld) [Partial pressure] 40 mm Hg Normal 36-46 [facility] Comment on above: Order Comment: Speci men Type: ARTERIAL BLOOD SPECIMENOrdering Facility: [facility] Address: [address] [place] [address] Performed By: #### A LLBG ####[facility]CLIA [id number] [place] [address] [place] CO2 adjusted to patient's actual temperature (Bld) [Partial pressure] 40 mmHg Normal 36-46 [facility] Comment on above: Order Comment: Speci men Type: ARTERIAL BLOOD SPECIMENOrdering Facility: [facility] Address: [address] [place] [address] Performed By: #### A LLBG ####[facility]CL[facility] [id number] [place] [address] [place] Glucose [Mass/Vol] 209 mg/dL High 60-105 [facility] Comment on above: Order Comment: Speci men Type: ARTERIAL BLOOD SPECIMENOrdering Facility: [facility] Address: [address] [place] [address] Performed By: #### A LLBG ####[facility]CLIA [id number] [place] [address] [place] HCO3 (Bld) [Moles/Vol] 22 mmol/L Normal 22-26 [facility] Comment on above: Order Comment: Speci men Type: ARTERIAL BLOOD SPECIMENOrdering Facility: [facility] Address: [address] [place] [address] Performed By: #### A LLBG ####[facility] [id number] [place] [address] [place] Hematocrit (Bld) [Volume fraction] 33.5 % Low 36.0-46.0 [facility] Comment on above: Order Comment: Speci men Type: ARTERIAL BLOOD SPECIMENOrdering Facility: [facility] Address: [address] [place] [address] Performed By: #### A LLBG ####[facility] [id number] [place] [address] [place] Hemoglobin (Bld) [Mass/Vol] 10.9 g/dL Low 11.5-15.5 [facility] Comment on above: Order Comment: Speci men Type: ARTERIAL BLOOD SPECIMENOrdering Facility: [facility] Address: [address] [place] [address] Performed By: #### A LLBG ####[facility]CLIA [id number] [place] [address] [place] Lactate [Moles/Vol] 3.0 mmol/L High 0.5-2.2 [facility] Comment on above: Order Comment: Speci men Type: ARTERIAL BLOOD SPECIMENOrdering Facility: [facility] Address: [address] [place] [address] Performed By: #### A LLBG ####[facility]CLIA [id number] [address] [address] [place] Methemoglobin (Bld) [Mass fraction] 1.6 % High 0.0-1.5 [facility] Comment on above: Order Comment: Speci men Type: ARTERIAL BLOOD SPECIMENOrdering Facility: [facility] Address: [address] [place] [address] Performed By: #### A LLBG ####[facility] LABCLIA [id number] [place] [id number] [place] Oxygen (Bld) [Partial pressure] 359 mm Hg High 85-95 [facility] Comment on above: Order Comment: Speci men Type: ARTERIAL BLOOD SPECIMENOrdering Facility: [facility] Address: [address] [place] [address] Performed By: #### A LLBG ####[facility]CLIA [id number] [place] [address] [place] Oxygen adjusted to patient's actual temperature (Bld) [Partial pressure] 359 mmHg High 85-95 [facility] Comment on above: Order Comment: Speci men Type: ARTERIAL BLOOD SPECIMENOrdering Facility: [facility] Address: [address] [place], [place] [address] Performed By: #### A LLBG ####[facility] [id number] [place] [id number] [place] Oxyhemoglobin (BldA) [Mass fraction] 96 % Normal 95-98 [facility] Comment on above: Order Comment: Speci men Type: ARTERIAL BLOOD SPECIMENOrdering Facility: [facility] Address: [address] [place] [address] Performed By: #### A LLBG ####[facility]CLIA [id number] [place] [id number] [place] pH (Bld) 7.36 [pH] Normal 7.35-7.45 [facility] Comment on above: Order Comment: Speci men Type: ARTERIAL BLOOD SPECIMENOrdering Facility: [facility] Address: [address] [place] [address] Performed By: #### A LLBG ####[facility] [id number] [place] [address] [place] pH adjusted to patient's actual temperature (Bld) 7.36 Normal 7.35-7.45 [facility] Comment on above: Order Comment: Speci men Type: ARTERIAL BLOOD SPECIMENOrdering Facility: [facility] Address: [address] [place] [address] Performed By: #### A LLBG ####[facility] [id number] [place] [address] [place] Potassium [Moles/Vol] 5.0 mmol/L Normal 3.5-5.0 [facility] Comment on above: Order Comment: Speci men Type: ARTERIAL BLOOD SPECIMENOrdering Facility: [facility] Address: [address] [place] [address] Performed By: #### A LLBG ####[facility] [id number] [place] [address] [place] Sodium [Moles/Vol] 133 mmol/L Low 136-144 [facility] Comment on above: Order Comment: Speci men Type: ARTERIAL BLOOD SPECIMENOrdering Facility: [facility] Address: [address] [place] [address] Performed By: #### A LLBG ####[facility] [id number] [place] [address] [place] Base deficit (BldA) [Moles/Vol] -3 mmol/L Low -2-0 [facility] Comment on above: Order Comment: Speci men Type: ARTERIAL BLOOD SPECIMENOrdering Facility: [facility] Address: [address] [place] [address] Performed By: #### A LLBG ####[facility] [id number] [place] [address] [place] Calcium.ionized (Bld) [Mass/Vol] 1.16 mmol/L Normal 1.08-1.30 [facility] Comment on above: Order Comment: Speci men Type: ARTERIAL BLOOD SPECIMENOrdering Facility: [facility] Address: [address] [place] [address] Performed By: #### A LLBG ####[facility] [id number] [place] [address] [place] Calcium.ionized adjusted to pH 7.4 (BldA) [Moles/Vol] 1.14 mmol/L Normal 1.08-1.30 [facility] Comment on above: Order Comment: Speci men Type: ARTERIAL BLOOD SPECIMENOrdering Facility: [facility] Address: [address] [place] [address] Performed By: #### A LLBG ####[facility] [id number] [place] [address] [place] Carboxyhemoglobin (BldA) [Mass fraction] 1.0 % Normal 0.0-2.0 [facility] Comment on above: Order Comment: Speci men Type: ARTERIAL BLOOD SPECIMENOrdering Facility: [facility] Address: [address] [place] [address] Result Comment: Carb oxyhemoglobin Reference Range for Smokers: 2.0-8.0% Performed By: #### A LLBG ####[facility] [id number] [place] [address] [place] CO2 (Bld) [Partial pressure] 38 mm Hg Normal 36-46 [facility] Comment on above: Order Comment: Speci men Type: ARTERIAL BLOOD SPECIMENOrdering Facility: [facility] Address: [address] [place] [address] Performed By: #### A LLBG ####[facility] [id number] [place] [address] [place] CO2 adjusted to patient's actual temperature (Bld) [Partial pressure] 38 mmHg Normal 36-46 [facility] Comment on above: Order Comment: Speci men Type: ARTERIAL BLOOD SPECIMENOrdering Facility: [facility] Address: [address] [place] [address] Performed By: #### A LLBG ####[facility]CL[facility] [id number] [place] [address] [place] Glucose [Mass/Vol] 242 mg/dL High 60-105 [facility] Comment on above: Order Comment: Speci men Type: ARTERIAL BLOOD SPECIMENOrdering Facility: [facility] Address: [address] [place] [address] Performed By: #### A LLBG ####[facility]CL[facility] [id number] [place] [address] [place] HCO3 (Bld) [Moles/Vol] 21 mmol/L Low 22-26 [facility] Comment on above: Order Comment: Speci men Type: ARTERIAL BLOOD SPECIMENOrdering Facility: [facility] Address: [address] [place] [address] Performed By: #### A LLBG ####[facility]CL[facility] [id number] [place] [address] [place] Hematocrit (Bld) [Volume fraction] 33.0 % Low 36.0-46.0 [facility] Comment on above: Order Comment: Speci men Type: ARTERIAL BLOOD SPECIMENOrdering Facility: [facility] Address: [address] [place] [address] Performed By: #### A LLBG ####[facility]CL[facility] [id number] [place] [address] [place] Hemoglobin (Bld) [Mass/Vol] 10.7 g/dL Low 11.5-15.5 [facility] Comment on above: Order Comment: Speci men Type: ARTERIAL BLOOD SPECIMENOrdering Facility: [facility] Address: [address] [place] [address] Performed By: #### A LLBG ####[facility]CL[facility] [id number] [address] [address] [place] Methemoglobin (Bld) [Mass fraction] 0.9 % Normal 0.0-1.5 [facility] Comment on above: Order Comment: Speci men Type: ARTERIAL BLOOD SPECIMENOrdering Facility: [facility] Address: [address] [place] [id number] Performed By: #### A LLBG ####[facility]CL[facility] [id number] [address] [address] [place] Oxygen (Bld) [Partial pressure] 439 mm Hg High 85-95 [facility] Comment on above: Order Comment: Speci men Type: ARTERIAL BLOOD SPECIMENOrdering Facility: [facility] Address: [address] [place] [id number] Performed By: #### A LLBG ####[facility]CL[facility] [id number] [place] [address] [place] Oxygen adjusted to patient's actual temperature (Bld) [Partial pressure] 439 mmHg High 85-95 [facility] Comment on above: Order Comment: Speci men Type: ARTERIAL BLOOD SPECIMENOrdering Facility: [facility] Address: [address] [place] [address] Performed By: #### A LLBG ####[facility] LABCLIA [id number] [address] [address] [place] Oxyhemoglobin (BldA) [Mass fraction] 96 % Normal 95-98 [facility] Comment on above: Order Comment: Speci men Type: ARTERIAL BLOOD SPECIMENOrdering Facility: [facility] Address: [address] [place] [address] Performed By: #### A LLBG ####[facility] LABCLIA [id number] [place] [address] [place] pH (Bld) 7.37 [pH] Normal 7.35-7.45 [facility] Comment on above: Order Comment: Speci men Type: ARTERIAL BLOOD SPECIMENOrdering Facility: [facility] Address: [address] [place] [address] Performed By: #### A LLBG ####[facility] LABIA [id number] [place] [address] [place] pH adjusted to patient's actual temperature (Bld) 7.37 Normal 7.35-7.45 [facility] Comment on above: Order Comment: Speci men Type: ARTERIAL BLOOD SPECIMENOrdering Facility: [facility] Address: [address] [place] [address] Performed By: #### A LLBG ####[facility] LABIA [id number] [place] [address] [place] Potassium [Moles/Vol] 5.8 mmol/L High 3.5-5.0 [facility] Comment on above: Order Comment: Speci men Type: ARTERIAL BLOOD SPECIMENOrdering Facility: [facility] Address: [address] [place] [address] Performed By: #### A LLBG ####[facility] LABIA [id number] [place] [address] [place] Sodium [Moles/Vol] 129 mmol/L Low 136-144 [facility] Comment on above: Order Comment: Speci men Type: ARTERIAL BLOOD SPECIMENOrdering Facility: [facility] Address: [address] [place] [address] Performed By: #### A LLBG ####[facility] LABIA [id number] [place] [address] [place] Base deficit (BldA) [Moles/Vol] -2 mmol/L Normal -2-0 [facility] Comment on above: Order Comment: Speci men Type: ARTERIAL BLOOD SPECIMENOrdering Facility: [facility] Address: [address] [place] [address] Performed By: #### A LLBG ####[facility] [id number] [place] [address] [place] Calcium.ionized (Bld) [Mass/Vol] 1.29 mmol/L Normal 1.08-1.30 [facility] Comment on above: Order Comment: Speci men Type: ARTERIAL BLOOD SPECIMENOrdering Facility: [facility] Address: [address] [place] [address] Performed By: #### A LLBG ####[facility] [id number] [place] [address] [place] Calcium.ionized adjusted to pH 7.4 (BldA) [Moles/Vol] 1.24 mmol/L Normal 1.08-1.30 [facility] Comment on above: Order Comment: Speci men Type: ARTERIAL BLOOD SPECIMENOrdering Facility: [facility] Address: [address] [place] [address] Performed By: #### A LLBG ####[facility] [id number] [place] [address] [place] Carboxyhemoglobin (BldA) [Mass fraction] 1.7 % Normal 0.0-2.0 [facility] Comment on above: Order Comment: Speci men Type: ARTERIAL BLOOD SPECIMENOrdering Facility: [facility] Address: [address] [place] [address] Result Comment: Carb oxyhemoglobin Reference Range for Smokers: 2.0-8.0% Performed By: #### A LLBG ####[facility] [id number] [place] [address] [place] CO2 (Bld) [Partial pressure] 45 mm Hg Normal 36-46 [facility] Comment on above: Order Comment: Speci men Type: ARTERIAL BLOOD SPECIMENOrdering Facility: [facility] Address: [address] [place] [address] Performed By: #### A LLBG ####[facility] LABCLIA [id number] [place] [address] [place] CO2 adjusted to patient's actual temperature (Bld) [Partial pressure] 45 mmHg Normal 36-46 [facility] Comment on above: Order Comment: Speci men Type: ARTERIAL BLOOD SPECIMENOrdering Facility: [facility] Address: [address] [place] [address] Performed By: #### A LLBG ####[facility] LABCLIA [id number] [place] [address] [place] Glucose [Mass/Vol] 197 mg/dL High 60-105 [facility] Comment on above: Order Comment: Speci men Type: ARTERIAL BLOOD SPECIMENOrdering Facility: [facility] Address: [address] [place] [address] Performed By: #### A LLBG ####[facility] LABCLIA [id number] [place] [address] [place] HCO3 (Bld) [Moles/Vol] 23 mmol/L Normal 22-26 [facility] Comment on above: Order Comment: Speci men Type: ARTERIAL BLOOD SPECIMENOrdering Facility: [facility] Address: [address] [place] [address] Performed By: #### A LLBG ####[facility] LABCLIA [id number] [place] [address] [place] Hematocrit (Bld) [Volume fraction] 39.4 % Normal 36.0-46.0 [facility] Comment on above: Order Comment: Speci men Type: ARTERIAL BLOOD SPECIMENOrdering Facility: [facility] Address: [address] [place] [address] Performed By: #### A LLBG ####[facility] LABCLIA [id number] [address] [address] [place] Hemoglobin (Bld) [Mass/Vol] 12.8 g/dL Normal 11.5-15.5 [facility] Comment on above: Order Comment: Speci men Type: ARTERIAL BLOOD SPECIMENOrdering Facility: [facility] Address: [address] [place] [address] Performed By: #### A LLBG ####[facility] LABCLIA [id number] [place] [address] [place] Lactate [Moles/Vol] 1.4 mmol/L Normal 0.5-2.2 [facility] Comment on above: Order Comment: Speci men Type: ARTERIAL BLOOD SPECIMENOrdering Facility: [facility] Address: [address] [place] [address] Performed By: #### A LLBG ####[facility] LABCLIA [id number] [place] [address] [place] Methemoglobin (Bld) [Mass fraction] 1.6 % High 0.0-1.5 [facility] Comment on above: Order Comment: Speci men Type: ARTERIAL BLOOD SPECIMENOrdering Facility: [facility] Address: [address] [place] [address] Performed By: #### A LLBG ####[facility] LABCLIA [id number] [place] [address] [place] Oxygen (Bld) [Partial pressure] 168 mm Hg High 85-95 [facility] Comment on above: Order Comment: Speci men Type: ARTERIAL BLOOD SPECIMENOrdering Facility: [facility] Address: [address] [place] [address] Performed By: #### A LLBG ####[facility] LABCLIA [id number] [place] [address] [place] Oxygen adjusted to patient's actual temperature (Bld) [Partial pressure] 168 mmHg High 85-95 [facility] Comment on above: Order Comment: Speci men Type: ARTERIAL BLOOD SPECIMENOrdering Facility: [facility] Address: [address] [place] [address] Performed By: #### A LLBG ####[facility] LABCLIA [id number] [place] [address] [place] Oxyhemoglobin (BldA) [Mass fraction] 96 % Normal 95-98 [facility] Comment on above: Order Comment: Speci men Type: ARTERIAL BLOOD SPECIMENOrdering Facility: [facility] Address: [address] [place] [address] Performed By: #### A LLBG ####[facility] LABIA [id number] [place] [address] [place] pH (Bld) 7.33 [pH] Low 7.35-7.45 [facility] Comment on above: Order Comment: Speci men Type: ARTERIAL BLOOD SPECIMENOrdering Facility: [facility] Address: [address] [place] [address] Performed By: #### A LLBG ####[facility] LABIA [id number] [place] [address] [place] pH adjusted to patient's actual temperature (Bld) 7.33 Low 7.35-7.45 [facility] Comment on above: Order Comment: Speci men Type: ARTERIAL BLOOD SPECIMENOrdering Facility: [facility] Address: [address] [place] [address] Performed By: #### A LLBG ####[facility] LABIA [id number] [place] [address] [place] Potassium [Moles/Vol] 4.3 mmol/L Normal 3.5-5.0 [facility] Comment on above: Order Comment: Speci men Type: ARTERIAL BLOOD SPECIMENOrdering Facility: [facility] Address: [address] [place] [address] Performed By: #### A LLBG ####[facility] LABIA [id number] [place] [address] [place] Sodium [Moles/Vol] 135 mmol/L Low 136-144 [facility] Comment on above: Order Comment: Speci men Type: ARTERIAL BLOOD SPECIMENOrdering Facility: [facility] Address: [address] [place] [address] Performed By: #### A LLBG ####[facility] LABIA [id number] [place] [address] [place] Base deficit (BldA) [Moles/Vol] -2 mmol/L Normal -2-0 [facility] Comment on above: Order Comment: Speci men Type: ARTERIAL BLOOD SPECIMENOrdering Facility: [facility] Address: [address] [place] [address] Performed By: #### A LLBG ####[facility] LABIA [id number] [place] [address] [place] Calcium.ionized (Bld) [Mass/Vol] 1.28 mmol/L Normal 1.08-1.30 [facility] Comment on above: Order Comment: Speci men Type: ARTERIAL BLOOD SPECIMENOrdering Facility: [facility] Address: [address] [place] [address] Performed By: #### A LLBG ####[facility] LABIA [id number] [place] [address] [place] Calcium.ionized adjusted to pH 7.4 (BldA) [Moles/Vol] 1.30 mmol/L Normal 1.08-1.30 [facility] Comment on above: Order Comment: Speci men Type: ARTERIAL BLOOD SPECIMENOrdering Facility: [facility] Address: [address] [place] [address] Performed By: #### A LLBG ####[facility] LABIA [id number] [place] [address] [place] Carboxyhemoglobin (BldA) [Mass fraction] 2.2 % High 0.0-2.0 [facility] Comment on above: Order Comment: Speci men Type: ARTERIAL BLOOD SPECIMENOrdering Facility: [facility] Address: [address] [place] [address] Result Comment: Carb oxyhemoglobin Reference Range for Smokers: 2.0-8.0% Performed By: #### A LLBG ####[facility] LABCLIA [id number] [place] [address] [place] CO2 (Bld) [Partial pressure] 33 mm Hg Low 36-46 [facility] Comment on above: Order Comment: Speci men Type: ARTERIAL BLOOD SPECIMENOrdering Facility: [facility] Address: [address] [place] [address] Performed By: #### A LLBG ####[facility] LABCLIA [id number] [place] [address] [place] CO2 adjusted to patient's actual temperature (Bld) [Partial pressure] 33 mmHg Low 36-46 [facility] Comment on above: Order Comment: Speci men Type: ARTERIAL BLOOD SPECIMENOrdering Facility: [facility] Address: [address] [place] [address] Performed By: #### A LLBG ####[facility] LABCLIA [id number] [place] [address] [place] Glucose [Mass/Vol] 173 mg/dL High 60-105 [facility] Comment on above: Order Comment: Speci men Type: ARTERIAL BLOOD SPECIMENOrdering Facility: [facility] Address: [address] [place] [address] Performed By: #### A LLBG ####[facility] LABCLIA [id number] [place] [address] [place] HCO3 (Bld) [Moles/Vol] 21 mmol/L Low 22-26 [facility] Comment on above: Order Comment: Speci men Type: ARTERIAL BLOOD SPECIMENOrdering Facility: [facility] Address: [address] [place] [address] Performed By: #### A LLBG ####[facility] LABCLIA [id number] [place] [address] [place] Hematocrit (Bld) [Volume fraction] 41.6 % Normal 36.0-46.0 [facility] Comment on above: Order Comment: Speci men Type: ARTERIAL BLOOD SPECIMENOrdering Facility: [facility] Address: [address] [place] [address] Performed By: #### A LLBG ####[facility] LABIA [id number] [place] [address] [place] Hemoglobin (Bld) [Mass/Vol] 13.5 g/dL Normal 11.5-15.5 [facility] Comment on above: Order Comment: Speci men Type: ARTERIAL BLOOD SPECIMENOrdering Facility: [facility] Address: [address] [place] [address] Performed By: #### A LLBG ####[facility] LABIA [id number] [place] [address] [place] Lactate [Moles/Vol] 2.1 mmol/L Normal 0.5-2.2 [facility] Comment on above: Order Comment: Speci men Type: ARTERIAL BLOOD SPECIMENOrdering Facility: [facility] Address: [address] [place] [address] Performed By: #### A LLBG ####[facility] LABIA [id number] [place] [address] [place] Methemoglobin (Bld) [Mass fraction] 1.3 % Normal 0.0-1.5 [facility] Comment on above: Order Comment: Speci men Type: ARTERIAL BLOOD SPECIMENOrdering Facility: [facility] Address: [address] [place] [address] Performed By: #### A LLBG ####[facility] LABIA [id number] [place] [address] [place] Oxygen (Bld) [Partial pressure] 114 mm Hg High 85-95 [facility] Comment on above: Order Comment: Speci men Type: ARTERIAL BLOOD SPECIMENOrdering Facility: [facility] Address: [address] [place] [address] Performed By: #### A LLBG ####[facility] LABCLIA [id number] [address] [address] [place] Oxygen adjusted to patient's actual temperature (Bld) [Partial pressure] 114 mmHg High 85-95 [facility] Comment on above: Order Comment: Speci men Type: ARTERIAL BLOOD SPECIMENOrdering Facility: [facility] Address: [address] [place] [address] Performed By: #### A LLBG ####[facility] LABCLIA [id number] [place] [address] [place] Oxyhemoglobin (BldA) [Mass fraction] 95 % Normal 95-98 [facility] Comment on above: Order Comment: Speci men Type: ARTERIAL BLOOD SPECIMENOrdering Facility: [facility] Address: [address] [place] [address] Performed By: #### A LLBG ####[facility] LABCLIA [id number] [place] [address] [place] pH (Bld) 7.42 [pH] Normal 7.35-7.45 [facility] Comment on above: Order Comment: Speci men Type: ARTERIAL BLOOD SPECIMENOrdering Facility: [facility] Address: [address] [place] [address] Performed By: #### A LLBG ####[facility] LABCLIA [id number] [place] [address] [place] pH adjusted to patient's actual temperature (Bld) 7.42 Normal 7.35-7.45 [facility] Comment on above: Order Comment: Speci men Type: ARTERIAL BLOOD SPECIMENOrdering Facility: [facility] Address: [address] [place] [address] Performed By: #### A LLBG ####[facility] LABCLIA [id number] [place] [address] [place] Potassium [Moles/Vol] 4.1 mmol/L Normal 3.5-5.0 [facility] Comment on above: Order Comment: Speci men Type: ARTERIAL BLOOD SPECIMENOrdering Facility: [facility] Address: [address] [place] [address] Performed By: #### A LLBG ####[facility] LABCLIA [id number] [place] [address] [place] Sodium [Moles/Vol] 133 mmol/L Low 136-144 [facility] Comment on above: Order Comment: Speci men Type: ARTERIAL BLOOD SPECIMENOrdering Facility: [facility] Address: [address] [place] [address] Performed By: #### A LLBG ####[facility] LABCLIA [id number] [place] [address] [place] ARTERIAL BLOOD GASES WITH IO NIZED MAGNESIUMon 07-29-2023 Base excess Calc (Bld) [Moles/Vol] 0 mmol/L Normal 0-2 [facility] Comment on above: Order Comment: Speci men Type: ARTERIAL BLOOD SPECIMENOrdering Facility: [facility] Address: [address] [place] [address] Performed By: #### A LLMG ####[facility] LABCLIA [id number] [place] [address] [place] Calcium.ionized (Bld) [Mass/Vol] 1.28 mmol/L Normal 1.08-1.30 [facility] Comment on above: Order Comment: Speci men Type: ARTERIAL BLOOD SPECIMENOrdering Facility: [facility] Address: [address] [place] [address] Performed By: #### A LLMG ####[facility] LABCLIA [id number] [place] [address] [place] Calcium.ionized adjusted to pH 7.4 (BldA) [Moles/Vol] 1.27 mmol/L Normal 1.08-1.30 [facility] Comment on above: Order Comment: Speci men Type: ARTERIAL BLOOD SPECIMENOrdering Facility: [facility] Address: [address] [place] [address] Performed By: #### A LLMG ####[facility] LABCLIA [id number] [place] [address] [place] Carboxyhemoglobin (BldA) [Mass fraction] 1.2 % Normal 0.0-2.0 [facility] Comment on above: Order Comment: Speci men Type: ARTERIAL BLOOD SPECIMENOrdering Facility: [facility] Address: [address] [place] [address] Result Comment: Carb oxyhemoglobin Reference Range for Smokers: 2.0-8.0% Performed By: #### A LLMG ####[facility] LABCLIA [id number] [place] [address] [place] CO2 (Bld) [Partial pressure] 42 mm Hg Normal 36-46 [facility] Comment on above: Order Comment: Speci men Type: ARTERIAL BLOOD SPECIMENOrdering Facility: [facility] Address: [address] [place] [address] Performed By: #### A LLMG ####[facility] LABCLIA [id number] [place] [address] [place] CO2 adjusted to patient's actual temperature (Bld) [Partial pressure] 42 mmHg Normal 36-46 [facility] Comment on above: Order Comment: Speci men Type: ARTERIAL BLOOD SPECIMENOrdering Facility: [facility] Address: [address] [place] [address] Performed By: #### A LLMG ####[facility] LABCLIA [id number] [place] [address] [place] Glucose [Mass/Vol] 119 mg/dL High 60-105 [facility] Comment on above: Order Comment: Speci men Type: ARTERIAL BLOOD SPECIMENOrdering Facility: [facility] Address: [address] [place] [address] Performed By: #### A LLMG ####[facility] LABCLIA [id number] [place] [address] [place] HCO3 (Bld) [Moles/Vol] 25 mmol/L Normal 22-26 [facility] Comment on above: Order Comment: Speci men Type: ARTERIAL BLOOD SPECIMENOrdering Facility: [facility] Address: [address] [place] [address] Performed By: #### A LLMG ####[facility] LABCLIA [id number] [place] [address] [place] Hematocrit (Bld) [Volume fraction] 35.4 % Low 36.0-46.0 [facility] Comment on above: Order Comment: Speci men Type: ARTERIAL BLOOD SPECIMENOrdering Facility: [facility] Address: [address] [place] [address] Performed By: #### A LLMG ####[facility] LABCLIA [id number] [place] [address] [place] Hemoglobin (Bld) [Mass/Vol] 11.5 g/dL Normal 11.5-15.5 [facility] Comment on above: Order Comment: Speci men Type: ARTERIAL BLOOD SPECIMENOrdering Facility: [facility] Address: [address] [place] [address] Performed By: #### A LLMG ####[facility] LABCLIA [id number] [place] [address] [place] Lactate [Moles/Vol] 2.4 mmol/L High 0.5-2.2 [facility] Comment on above: Order Comment: Speci men Type: ARTERIAL BLOOD SPECIMENOrdering Facility: [facility] Address: [address] [place] [address] Performed By: #### A LLMG ####[facility] LABCLIA [id number] [place] [address] [place] Magnesium [Moles/Vol] 0.51 mmol/L Normal 0.45-0.60 [facility] Comment on above: Order Comment: Speci men Type: ARTERIAL BLOOD SPECIMENOrdering Facility: [facility] Address: [address] [place] [address] Performed By: #### A LLMG ####[facility] LABCLIA [id number] [place] [address] [place] Methemoglobin (Bld) [Mass fraction] 1.0 % Normal 0.0-1.5 [facility] Comment on above: Order Comment: Speci men Type: ARTERIAL BLOOD SPECIMENOrdering Facility: [facility] Address: [address] [place] [address] Performed By: #### A LLMG ####[facility] LABIA [id number] [place] [address] [place] Oxygen (Bld) [Partial pressure] 150 mm Hg High 85-95 [facility] Comment on above: Order Comment: Speci men Type: ARTERIAL BLOOD SPECIMENOrdering Facility: [facility] Address: [address] [place] [address] Performed By: #### A LLMG ####[facility] LABIA [id number] [place] [address] [place] Oxygen adjusted to patient's actual temperature (Bld) [Partial pressure] 150 mmHg High 85-95 [facility] Comment on above: Order Comment: Speci men Type: ARTERIAL BLOOD SPECIMENOrdering Facility: [facility] Address: [address] [place] [address] Performed By: #### A LLMG ####[facility] LABIA [id number] [place] [address] [place] Oxyhemoglobin (BldA) [Mass fraction] 97 % Normal 95-98 [facility] Comment on above: Order Comment: Speci men Type: ARTERIAL BLOOD SPECIMENOrdering Facility: [facility] Address: [address] [place] [address] Performed By: #### A LLMG ####[facility] LABCLIA [id number] [place] [address] [place] pH (Bld) 7.39 [pH] Normal 7.35-7.45 [facility] Comment on above: Order Comment: Speci men Type: ARTERIAL BLOOD SPECIMENOrdering Facility: [facility] Address: [address] [place] [address] Performed By: #### A LLMG ####[facility] LABCLIA [id number] [place] [address] [place] pH adjusted to patient's actual temperature (Bld) 7.39 Normal 7.35-7.45 [facility] Comment on above: Order Comment: Speci men Type: ARTERIAL BLOOD SPECIMENOrdering Facility: [facility] Address: [address] [place] [address] Performed By: #### A LLMG ####[facility] LABCLIA [id number] [place] [address] [place] Potassium [Moles/Vol] 3.9 mmol/L Normal 3.5-5.0 [facility] Comment on above: Order Comment: Speci men Type: ARTERIAL BLOOD SPECIMENOrdering Facility: [facility] Address: [address] [place] [address] Performed By: #### A LLMG ####[facility] LABIA [id number] [place] [address] [place] Sodium [Moles/Vol] 134 mmol/L Low 136-144 [facility] Comment on above: Order Comment: Speci men Type: ARTERIAL BLOOD SPECIMENOrdering Facility: [facility] Address: [address] [place] [address] Performed By: #### A LLMG ####[facility] LABIA [id number] [place] [address] [place] CBC panel Auto (Bld)on 07-29 Erythrocyte distribution width (RBC) [Ratio] 11.9 % Normal 11.5-15.0 [facility] Comment on above: Order Comment: Speci men Type: BLOOD SPECIMENOrdering Facility: [facility] Address: [address] [place] [address] Performed By: #### 5 8410-2 ####[facility] LABIA [id number] [place] [address] [place] Hematocrit (Bld) [Volume fraction] 35.0 % Low 36.0-46.0 [facility] Comment on above: Order Comment: Speci men Type: BLOOD SPECIMENOrdering Facility: [facility] Address: [address] [place] [address] Performed By: #### 5 8410-2 ####[facility] LABIA [id number] [place] [address] [place] Hemoglobin (Bld) [Mass/Vol] 11.9 g/dL Normal 11.5-15.5 [facility] Comment on above: Order Comment: Speci men Type: BLOOD SPECIMENOrdering Facility: [facility] Address: [address] [place] [address] Performed By: #### 5 8410-2 ####[facility] LABIA [id number] [place] [address] [place] MCH (RBC) [Entitic mass] 31.3 pg Normal 26.0-34.0 [facility] Comment on above: Order Comment: Speci men Type: BLOOD SPECIMENOrdering Facility: [facility] Address: [address] [place] [address] Performed By: #### 5 8410-2 ####[facility]IA [id number] [place] [address] [place] MCHC (RBC) [Mass/Vol] 34.0 g/dL Normal 30.5-36.0 [facility] Comment on above: Order Comment: Speci men Type: BLOOD SPECIMENOrdering Facility: [facility] Address: [address] [place] [address] Performed By: #### 5 8410-2 ####[facility] LABCLIA [id number] [place] [address] [place] MCV (RBC) [Entitic vol] 92.1 fL Normal 80.0-100.0 [facility] Comment on above: Order Comment: Speci men Type: BLOOD SPECIMENOrdering Facility: [facility] Address: [address] [place] [address] Performed By: #### 5 8410-2 ####[facility] LABCLIA [id number] [place] [address] [place] Nucleated RBC (Bld) [#/Vol] 10*3/uL Normal <0.01 [facility] Comment on above: Order Comment: Speci men Type: BLOOD SPECIMENOrdering Facility: [facility] Address: [address] [place] [address] Performed By: #### 5 8410-2 ####[facility] LABCLIA [id number] [place] [address] [place] Platelet mean volume (Bld) [Entitic vol] 9.8 fL Normal 9.0-12.7 [facility] Comment on above: Order Comment: Speci men Type: BLOOD SPECIMENOrdering Facility: [facility] Address: [address] [place] [address] Performed By: #### 5 8410-2 ####[facility] LABCLIA [id number] [place] [address] [place] Platelets (Bld) [#/Vol] 170 10*3/uL Normal 150-400 [facility] Comment on above: Order Comment: Speci men Type: BLOOD SPECIMENOrdering Facility: [facility] Address: [address] [place] [address] Performed By: #### 5 8410-2 ####[facility] LABCLIA [id number] [place] [address] [place] RBC (Bld) [#/Vol] 3.80 10*6/uL Low 3.90-5.20 [facility] Comment on above: Order Comment: Speci men Type: BLOOD SPECIMENOrdering Facility: [facility] Address: [address] [place] [address] Performed By: #### 5 8410-2 ####[facility] LABCLIA [id number] [place] [address] [place] WBC (Bld) [#/Vol] 11.18 10*3/uL High 3.70-11.00 [facility] Comment on above: Order Comment: Speci men Type: BLOOD SPECIMENOrdering Facility: [facility] Address: [address] [place] [address] Performed By: #### 5 8410-2 ####[facility] LABCLIA [id number] [place] [address] [place] Fibrinogen PPP-mCncon 2023 Fibrinogen Coag (PPP) [Mass/Vol] 348 mg/dL Normal 200-400 [facility] Comment on above: Order Comment: Speci men Type: BLOOD SPECIMENOrdering Facility: [facility] Address: [address] [place] [address] Performed By: #### 3 255-7, 93169-4, 81763-5 ####[facility] LABCLIA [id number] [place] [address] [place] Fibrinogen Coag (PPP) [Mass/Vol] 165 mg/dL Low 200-400 [facility] Comment on above: Order Comment: Speci men Type: BLOOD SPECIMENOrdering Facility: [facility] Address: [address] [place] [address] Performed By: #### 3 255-7 ####[facility] LABCLIA [id number] [place] [address] [place] Gas + CO Pnl BldVon 07-29-19 24 Lactate [Moles/Vol] 1.4 mmol/L Normal 0.5-2.2 [facility] Comment on above: Order Comment: Speci men Type: VENOUS BLOOD SPECIMENOrdering Facility: [facility] Address: [address] [place] [address] Performed By: #### 2 4344-4 ####[facility]IA [id number] [place] [address] [place] Order Comment: Speci men Type: ARTERIAL BLOOD SPECIMENOrdering Facility: [facility] Address: [address] [place] [address] Performed By: #### A LLBG ####[facility] [id number] [place] [address] [place] Gas and Carbon monoxide pane l (BldV)on 07-29-2023 BASE DEFICIT, VENOUS -3 mmol/L Low -2-0 [facility] Comment on above: Order Comment: Speci men Type: VENOUS BLOOD SPECIMENOrdering Facility: [facility] Address: [address] [place] [address] Performed By: #### 2 4344-4 ####[facility] [id number] [place] [address] [place] Calcium.ionized (Bld) [Mass/Vol] 1.19 mmol/L Normal 1.08-1.30 [facility] Comment on above: Order Comment: Speci men Type: VENOUS BLOOD SPECIMENOrdering Facility: [facility] Address: [address] [place] [address] Performed By: #### 2 4344-4 ####[facility]IA [id number] [place] [address] [place] Calcium.ionized adjusted to pH 7.4 (BldA) [Moles/Vol] 1.15 mmol/L Normal 1.08-1.30 [facility] Comment on above: Order Comment: Speci men Type: VENOUS BLOOD SPECIMENOrdering Facility: [facility] Address: [address] [place] [address] Performed By: #### 2 4344-4 ####[facility] [id number] [place] [address] [place] Carboxyhemoglobin (BldV) [Mass fraction] 1.7 % Normal 0.0-2.0 [facility] Comment on above: Order Comment: Speci men Type: VENOUS BLOOD SPECIMENOrdering Facility: [facility] Address: [address] [place] [address] Result Comment: Carb oxyhemoglobin Reference Range for Smokers: 2.0-8.0% Performed By: #### 2 4344-4 ####[facility] [id number] [place] [address] [place] CO2 (BldV) [Partial pressure] 45 mm[Hg] Normal 42-55 [facility] Comment on above: Order Comment: Speci men Type: VENOUS BLOOD SPECIMENOrdering Facility: [facility] Address: [address] [place] [address] Performed By: #### 2 4344-4 ####[facility]IA [id number] [place] [address] [place] CO2 adjusted to patient's actual temperature (BldV) [Partial pressure] 45 mmHg Normal 42-55 [facility] Comment on above: Order Comment: Speci men Type: VENOUS BLOOD SPECIMENOrdering Facility: [facility] Address: [address] [place] [address] Performed By: #### 2 4344-4 ####[facility] [id number] [place] [address] [place] Glucose [Mass/Vol] 241 mg/dL High 60-105 [facility] Comment on above: Order Comment: Speci men Type: VENOUS BLOOD SPECIMENOrdering Facility: [facility] Address: [address] [place] [address] Performed By: #### 2 4344-4 ####[facility] LABCLIA [id number] [place] [address] [place] HCO3 (Bld) [Moles/Vol] 23 mmol/L Low 24-28 [facility] Comment on above: Order Comment: Speci men Type: VENOUS BLOOD SPECIMENOrdering Facility: [facility] Address: [address] [place] [address] Performed By: #### 2 4344-4 ####[facility] LABCLIA [id number] [place] [address] [place] Hematocrit (Bld) [Volume fraction] 33.3 % Low 36.0-46.0 [facility] Comment on above: Order Comment: Speci men Type: VENOUS BLOOD SPECIMENOrdering Facility: [facility] Address: [address] [place] [address] Performed By: #### 2 4344-4 ####[facility] LABCLIA [id number] [place] [address] [place] Hemoglobin (Bld) [Mass/Vol] 10.8 g/dL Low 11.5-15.5 [facility] Comment on above: Order Comment: Speci men Type: VENOUS BLOOD SPECIMENOrdering Facility: [facility] Address: [address] [place] [address] Performed By: #### 2 4344-4 ####[facility] LABCLIA [id number] [place] [address] [place] Methemoglobin (Bld) [Mass fraction] 1.2 % Normal 0.0-1.5 [facility] Comment on above: Order Comment: Speci men Type: VENOUS BLOOD SPECIMENOrdering Facility: [facility] Address: [address] [place] [address] Performed By: #### 2 4344-4 ####[facility] LABCLIA [id number] [address] [address] [place] Oxygen (BldV) [Partial pressure] 51 mm[Hg] High 35-45 [facility] Comment on above: Order Comment: Speci men Type: VENOUS BLOOD SPECIMENOrdering Facility: [facility] Address: [address] [place] [address] Performed By: #### 2 4344-4 ####[facility] LABCLIA [id number] [address] [address] [place] Oxygen adjusted to patient's actual temperature (BldV) [Partial pressure] 51 mmHg High 35-45 [facility] Comment on above: Order Comment: Speci men Type: VENOUS BLOOD SPECIMENOrdering Facility: [facility] Address: [address] [place] [address] Performed By: #### 2 4344-4 ####[facility] LABCLIA [id number] [address] [address] [place] Oxygen saturation in Venous blood 83 % Normal 60-85 [facility] Comment on above: Order Comment: Speci men Type: VENOUS BLOOD SPECIMENOrdering Facility: [facility] Address: [address] [place] [address] Performed By: #### 2 4344-4 ####[facility] LABCLIA [id number] [address] [address] [place] Oxyhemoglobin (BldV) [Mass fraction] 80 % Normal 60-85 [facility] Comment on above: Order Comment: Speci men Type: VENOUS BLOOD SPECIMENOrdering Facility: [facility] Address: [address] [place] [address] Performed By: #### 2 4344-4 ####[facility] LABCLIA [id number] [place] [address] [place] pH (BldV) 7.33 [pH] Normal 7.32-7.42 [facility] Comment on above: Order Comment: Speci men Type: VENOUS BLOOD SPECIMENOrdering Facility: [facility] Address: [address] [place] [address] Performed By: #### 2 4344-4 ####[facility] LABCLIA [id number] [place] [address] [place] pH adjusted to patient's actual temperature (BldV) 7.33 Normal 7.32-7.42 [facility] Comment on above: Order Comment: Speci men Type: VENOUS BLOOD SPECIMENOrdering Facility: [facility] Address: [address] [place] [address] Performed By: #### 2 4344-4 ####[facility] LABCLIA [id number] [place] [address] [place] Potassium [Moles/Vol] 5.7 mmol/L High 3.5-5.0 [facility] Comment on above: Order Comment: Speci men Type: VENOUS BLOOD SPECIMENOrdering Facility: [facility] Address: [address] [place] [address] Performed By: #### 2 4344-4 ####[facility]IA [id number] [place] [address] [place] Sodium [Moles/Vol] 130 mmol/L Low 136-144 [facility] Comment on above: Order Comment: Speci men Type: VENOUS BLOOD SPECIMENOrdering Facility: [facility] Address: [address] [place] [address] Performed By: #### 2 4344-4 ####[facility] LABCLIA [id number] [place] [address] [place] Glucose [facility] Glucose [Mass/Vol] 131 mg/dL High 74-99 [facility] Comment on above: Order Comment: Phyllis stein Type: BLOOD SPECIMENOrdering Facility: [facility] Address: [address] [place] [address] Result Comment: The [place] Diabetes Association (ADA) provides guidance for cutoff [...] Standards of Medical Care in Diabetes 2016, [place] [employer]. Diabetes Care. 2016.39(Suppl 1). Performed By: #### 2 345-7, K1 ####[facility] LABCLIA [id number] [place] [address] [place] HCV RNA WALKER+probe Qnon 07-29 HBV surface Ag Ql (S) Negative Normal Negative [facility] Comment on above: Order Comment: Phyllis stein Type: BLOOD SPECIMENOrdering Facility: [facility] Exposure Address: [place] [address] Performed By: #### 1 1011-4 ####[facility] LABCLIA [id number] [place] [address] [place] HCV Ab Ql (S) Negative Normal Negative [facility] Comment on above: Order Comment: Phyllis stein Type: BLOOD SPECIMENOrdering Facility: [facility] Exposure Address: [place] [address] Result Comment: The result suggests no evidence of active infection with Hepatitis C virus. Should recent infection be suspected, repeat testing may be considered 4-6 weeks after this draw. Performed By: #### 1 1011-4 ####[facility] LABCLIA [id number] [place] [address] [place] HIV 1 and 2 Ab IA.rapid Nom (S/P/Bld) Normal [facility] Comment on above: Order Comment: Speci men Type: BLOOD SPECIMENOrdering Facility: [facility] Exposure Address: [place] [address] Result Comment: Test not indicated. Performed By: #### 1 1011-4 ####[facility] LABCLIA [id number] [address] OF [facility] HIV 1+2 Ab+HIV1 p24 Ag IA Ql Non-Reactive Normal Nonreactive [facility] Comment on above: Order Comment: Speci men Type: BLOOD SPECIMENOrdering Facility: [facility] Occupational [facility] Exposure Address: [place] [address] Performed By: #### 1 1011-4 ####[facility] [id number] [address] OF [facility] HIV immunoassay testing algorithm interpretation (S/P/Bld) [Interp] Normal [facility] Comment on above: Order Comment: Speci men Type: BLOOD SPECIMENOrdering Facility: [facility] Occupational [facility] Exposure Address: [place] [address] Result Comment: No e vidence of HIV-1 or HIV-2 infection. Should recent infection be suspected, repeat testing may be considered 2-3 weeks after this draw.Grand Rev. Code 3701.243(E): This information has been [...] or diagnoses. Performed By: #### 1 1011-4 ####[facility] LABIA [id number] [place] [address] [place] HISTORY PHYSICALon 4 HISTORY PHYSICAL Normal [facility] HIV1+2 Ab Ser Qlon 4 HIV 1+2 Ab Ql (S) Negative Normal Non-Reacti ve : Negative for both HIV1 and HIV2 antibodies. [facility] Comment on above: Order Comment: Speci men Type: BLOOD SPECIMENOrdering Facility: [facility] Exposure Address: [address] [address] Result Comment: A no n-reactive result does not preclude the possibility of exposure to HIV or infection with HIV. An antibody response to recent exposure may take several weeks to reach detectable levels with this assay.Performed by the [employer] [facility] Rapid HIV-1/2 Antibody Test.HIV Information: Grand Rev. Code 3701.243(E):This information has been disclosed [...] or diagnoses. Performed By: #### 7 918-6 ####[facility]IA [id number] [place] [address] [place] INTRAOPERATIVE ECHO PREon INTRAOPERATIVE ECHO PRE Normal [facility] OPERATIVE NOon 07-29-2023 OPERATIVE NO Normal [facility] POTASSIUM BLDon 07-29-2023 Potassium [Moles/Vol] 4.6 mmol/L Normal 3.7-5.1 [facility] Comment on above: Order Comment: Speci men Type: BLOOD SPECIMENOrdering Facility: [facility] Address: [address] [place] [address] Performed By: #### 2 345-7, K1 ####[facility] [id number] [place] [address] [place] PT panel Coag (PPP)on 2023 INR Coag (PPP) [Relative time] 1.1 {INR} Normal 0.9-1.3 [facility] Comment on above: Order Comment: Speci men Type: BLOOD SPECIMENOrdering Facility: [facility] Address: [address] [place] [address] Result Comment: Suzanne min K Antagonist (VKA) Therapeutic Range: INR 2 to 3 (Target INR of 2.5)Note: For patients treated with VKA drugs, such as warfarin, the [place] [employer] Chest [employer]icians 2012 Guideline recommends [...] al. Chest 2012, 141:7S-47SNishausten RA, et al. [facility] 2017, 70: 252-289 Performed By: #### 3 255-7, 56079-0, 53351-9 ####[facility] LABCLIA [id number] [place] [address] [place] PT Coag (PPP) [Time] 11.5 s Normal 9.7-13.0 [facility] Comment on above: Order Comment: Speci men Type: BLOOD SPECIMENOrdering Facility: [facility] Address: [address] [place] [address] Performed By: #### 3 255-7, 82070-0, 50130-8 ####[facility] LABCLIA [id number] [place] [id number] [place] Platelets Auto (Bld) [#/Vol] on 07-29-2023 Platelets (Bld) [#/Vol] 194 10*3/uL Normal 150-400 [facility] Comment on above: Order Comment: Speci men Type: BLOOD SPECIMENOrdering Facility: [facility] Address: [address] [place] [address] Performed By: #### 7 77-3 ####[facility] LABCLIA [id number] [address] OF [place] STAPH AUREUS PCRon 4 S. aureus and MRSA panel WALKER+probe (Nose) Normal Negative [facility] Comment on above: Order Comment: Speci men Type: SWAB OF INTERNAL NOSEOrdering Facility: [facility] Address: [address] [place] [address] Result Comment: Nega tive for Staphylococcus aureus by PCR.Negative for MRSA by PCR Performed By: #### S APCR ####[facility] LABCLIA [id number] [address] OF [place] SURGICAL PATHOLOGYon 024 CASE REPORT Normal [facility] Comment on above: Order Comment: Speci men Type: TISSUE SPECIMENOrdering Facility: [facility] Address: [address] [place] [address] Result Comment: Surg ical Pathology Report Case: [id number] Provider: Willem Suarez MD Collected: 07/29/2023 10:16 AMOrdering Location: Admitting Received: 07/29/2023 02:15 PMPathologist: Sarita Black MDSpecimen: SOFT TISSUE, endarterectomy Performed By: #### S ####[facility] LABCLIA [id number] [address] STATES 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 There is no evidence of tunica media. Normal [facility] Comment on above: Order Comment: Speci men Type: TISSUE SPECIMENOrdering Facility: [facility] Address: [address] [place] [address] Performed By: #### S ####[facility] LABCLIA [id number] [address] [place] FINAL DIAGNOSIS Normal [facility] Comment on above: Order Comment: Speci men Type: TISSUE SPECIMENOrdering Facility: [facility] Address: [address] [place] [address] Result Comment: A. C oronary artery (site not stated), endarterectomy:-Fibroatheromatous plaque. Performed By: #### S ####[facility] LABCLIA [id number] [place] [address] [place] FINAL PERFORMING LAB Normal [facility] Comment on above: Order Comment: Speci men Type: TISSUE SPECIMENOrdering Facility: [facility] Address: [address] [place] [address] Result Comment: Diag nostic interpretation performed at [facility], [address] [place] [address] CLIA# [id number] Director: Jonathan Pavon M.D. Performed By: #### S ####[facility] LABCLIA [id number] [address] [place] GROSS DESCRIPTION A. SOFT TISSUE Normal [facility] Comment on above: Order Comment: Speci men Type: TISSUE SPECIMENOrdering Facility: [facility] Address: [address] [place] [address] Result Comment: Rece ived fresh labeled endarterectomy is a kate-pham, irregular segment of soft probable plaque material. The specimen is entirely submitted intact in one cassette.Gross examination performed at [facility], [address] [place] [address] CLIA# [id number] 07/29/23 Performed By: #### S ####[facility]IA [id number] [place] [address] [place] THROMBOGRAPH HEPARINASE PANE Cuauhtemoc 07-29-2023 Clot angle after addition of heparinase TEG (Bld) [Angle] 65.5 degrees Normal 47.0-74.0 [facility] Comment on above: Order Comment: Speci men Type: BLOOD SPECIMENOrdering Facility: [facility] Address: [address] [place] [address] Performed By: #### T EGHPP ####[facility] [id number] [address] [place] Clot Lysis 30 Min post maximum clot amplitude TEG (Bld) [Length fraction] 0.0 % Normal 0.0-8.0 [facility] Comment on above: Order Comment: Speci men Type: BLOOD SPECIMENOrdering Facility: [facility] Address: [address] [place] [address] Performed By: #### T EGHPP ####[facility] [id number] [place] [address] [place] Clotting time after addition of heparinase TEG (Bld) 10.8 minutes High 4.0-10.0 [facility] Comment on above: Order Comment: Speci men Type: BLOOD SPECIMENOrdering Facility: [facility] Address: [address] [place] [address] Performed By: #### T EGHPP ####[facility] [id number] [place] [id number] [place] Coagulation index TEG Qn (Bld) -2.9 Normal -4.6-3.2 [facility] Comment on above: Order Comment: Speci men Type: BLOOD SPECIMENOrdering Facility: [facility] Address: [address] [place] [address] Result Comment: The Coagulation Index, a secondary parameter, is labeled by the concrete layer as for research use only and is used per the concrete layer's instructions. Its performance characteristics were determined by [facility]'s [facility] Pathology and Laboratory Medicine [place] in a manner consistent with CLIA requirements. This test has not been cleared by the U.S. Food and Drug Administration. Performed By: #### T EGHPP ####[facility] LABCL[facility] [id number] [facility] [address] [place] Maximum clot firmness after addition of heparinase TEG (Bld) [Length] 61.9 mm Normal 51.0-75.0 [facility] Comment on above: Order Comment: Specmarko stein Type: BLOOD SPECIMENOrdering Facility: [facility] Address: [address] [place] [address] Performed By: #### T EGHPP ####[facility]CLIA [id number] [facility] [address] [place] Thromboelastography after addtion of heparinase panel (Bld) Normal [facility] Comment on above: Order Comment: Phyllis stein Type: BLOOD SPECIMENOrdering Facility: [facility] Address: [address] [place] [address] Result Comment: A th romboelastograph (TEG) study [...] TEG results. Performed By: #### T EGHPP ####[facility] LABCLIA [id number] [facility] [place] [address] [place] THROMBOGRAPH PANELon 024 Clot angle TEG (Bld) [Angle] 61.3 degrees Normal 47.0-74.0 [facility] Comment on above: Order Comment: Speci men Type: BLOOD SPECIMENOrdering Facility: [facility] Address: [address] [place] [address] Performed By: #### T EGPNP ####[facility] LABIA [id number] [address] [place] Clot Lysis 30 Min post maximum clot amplitude TEG (Bld) [Length fraction] 0.0 % Normal 0.0-8.0 [facility] Comment on above: Order Comment: Speci men Type: BLOOD SPECIMENOrdering Facility: [facility] Address: [address] [place] [address] Performed By: #### T EGPNP ####[facility] [id number] [place] [address] [place] Clotting time TEG (Bld) 6.8 minutes Normal 4.0-10.0 [facility] Comment on above: Order Comment: Speci men Type: BLOOD SPECIMENOrdering Facility: [facility] Address: [address] [place] [address] Performed By: #### T EGPNP ####[facility] [id number] [place] [address] [place] Coagulation index TEG Qn (Bld) -0.8 Normal -4.6-3.2 [facility] Comment on above: Order Comment: Speci men Type: BLOOD SPECIMENOrdering Facility: [facility] Address: [address] [place] [address] Result Comment: The Coagulation Index, a secondary parameter, is labeled by the concrete layer as for research use only and is used per the concrete layer's instructions. Its performance characteristics were determined by [facility]'s [facility] Pathology and Laboratory Medicine [place] in a manner consistent with CLIA requirements. This test has not been cleared by the U.S. Food and Drug Administration. Performed By: #### T EGPNP ####[facility]IA [id number] [place] [address] [place] Maximum clot firmness TEG (Bld) [Length] 62.4 mm Normal 51.0-75.0 [facility] Comment on above: Order Comment: Phyllis stein Type: BLOOD SPECIMENOrdering Facility: [facility] Address: [address] [place] [address] Performed By: #### T EGPNP ####[facility] [id number] [address] [place] Thromboelastography after addtion of heparinase panel (Bld) Normal [facility] Comment on above: Order Comment: Phyllis stein Type: BLOOD SPECIMENOrdering Facility: [facility] Address: [address] [place] [address] Result Comment: A th romboelastograph (TEG) study [...] TEG results. Performed By: #### T EGPNP ####[facility] [id number] [place] [address] [place] XR CHEST 1V FRONTAL PORTon 0 07-29-2023 XR CHEST 1V FRONTAL PORT Normal [facility] aPTT PPPon 07-29-2023 aPTT Coag (PPP) [Time] 28.1 s Normal 23.0-32.4 [facility] Comment on above: Order Comment: Speci men Type: BLOOD SPECIMENOrdering Facility: [facility] Address: [address] [place] [address] Performed By: #### 3 255-7, 85091-3, 07213-9 ####[facility] LABCLIA [id number] [place] [address] [place] CNPNon 07-24-2023 CNPN Normal [facility] CNPTOUTREACHon 07-24-2023 CNPTOUTREACH Normal [facility] CBC W Auto Differential pane l (Bld)on 07-17-2023 Basophils (Bld) [#/Vol] 0.03 10*3/uL Normal <0.11 [facility] Comment on above: Order Comment: Speci men Type: BLOOD SPECIMENOrdering Facility: [facility] Address: [address] [place] [address] Performed By: #### 5 7021-8 ####[facility] LABCLIA [id number] [place] [address] [place] Basophils/100 WBC (Bld) 0.5 % Normal [facility] Comment on above: Order Comment: Speci men Type: BLOOD SPECIMENOrdering Facility: [facility] Address: [address] [place] [address] Performed By: #### 5 7021-8 ####[facility] LABCLIA [id number] [place] [address] [place] Differential cell count method Nom (Bld) Auto Normal [facility] Comment on above: Order Comment: Speci men Type: BLOOD SPECIMENOrdering Facility: [facility] Address: [address] [place] [address] Performed By: #### 5 7021-8 ####[facility] LABCLIA [id number] [place] [address] [place] Eosinophils (Bld) [#/Vol] 0.15 10*3/uL Normal <0.46 [facility] Comment on above: Order Comment: Speci men Type: BLOOD SPECIMENOrdering Facility: [facility] Address: [address] [place] [address] Performed By: #### 5 7021-8 ####[facility] LABCLIA [id number] [place] [address] [place] Eosinophils/100 WBC (Bld) 2.5 % Normal [facility] Comment on above: Order Comment: Speci men Type: BLOOD SPECIMENOrdering Facility: [facility] Address: [address] [place] [address] Performed By: #### 5 7021-8 ####[facility] LABCLIA [id number] [place] [address] [place] Erythrocyte distribution width (RBC) [Ratio] 12.2 % Normal 11.5-15.0 [facility] Comment on above: Order Comment: Speci men Type: BLOOD SPECIMENOrdering Facility: [facility] Address: [address] [place] [address] Performed By: #### 5 7021-8 ####[facility] LABCLIA [id number] [place] [address] [place] Hematocrit (Bld) [Volume fraction] 46.2 % High 36.0-46.0 [facility] Comment on above: Order Comment: Speci men Type: BLOOD SPECIMENOrdering Facility: [facility] Address: [address] [place] [address] Performed By: #### 5 7021-8 ####[facility] LABCLIA [id number] [place] [address] [place] Hemoglobin (Bld) [Mass/Vol] 14.9 g/dL Normal 11.5-15.5 [facility] Comment on above: Order Comment: Speci men Type: BLOOD SPECIMENOrdering Facility: [facility] Address: [address] [place] [address] Performed By: #### 5 7021-8 ####[facility] LABCLIA [id number] [place] [address] [place] Immature granulocytes (Bld) [#/Vol] 0.05 10*3/uL Normal <0.10 [facility] Comment on above: Order Comment: Speci men Type: BLOOD SPECIMENOrdering Facility: [facility] Address: [address] [place] [address] Performed By: #### 5 7021-8 ####[facility] LABCLIA [id number] [place] [address] [place] Immature granulocytes/100 WBC (Bld) 0.8 % Normal [facility] Comment on above: Order Comment: Speci men Type: BLOOD SPECIMENOrdering Facility: [facility] Address: [address] [place] [address] Performed By: #### 5 7021-8 ####[facility] LABCLIA [id number] [place] [address] [place] Lymphocytes (Bld) [#/Vol] 2.33 10*3/uL Normal 1.00-4.00 [facility] Comment on above: Order Comment: Speci men Type: BLOOD SPECIMENOrdering Facility: [facility] Address: [address] [place] [address] Performed By: #### 5 7021-8 ####[facility] LABCLIA [id number] [place] [address] [place] Lymphocytes/100 WBC (Bld) 39.0 % Normal [facility] Comment on above: Order Comment: Speci men Type: BLOOD SPECIMENOrdering Facility: [facility] Address: [address] [place] [address] Performed By: #### 5 7021-8 ####[facility] LABCLIA [id number] [place] [address] [place] MCH (RBC) [Entitic mass] 31.2 pg Normal 26.0-34.0 [facility] Comment on above: Order Comment: Speci men Type: BLOOD SPECIMENOrdering Facility: [facility] Address: [address] [place] [address] Performed By: #### 5 7021-8 ####[facility] LABCLIA [id number] [place] [address] [place] MCHC (RBC) [Mass/Vol] 32.3 g/dL Normal 30.5-36.0 [facility] Comment on above: Order Comment: Speci men Type: BLOOD SPECIMENOrdering Facility: [facility] Address: [address] [place] [address] Performed By: #### 5 7021-8 ####[facility]IA [id number] [place] [address] [place] MCV (RBC) [Entitic vol] 96.7 fL Normal 80.0-100.0 [facility] Comment on above: Order Comment: Speci men Type: BLOOD SPECIMENOrdering Facility: [facility] Address: [address] [place] [address] Performed By: #### 5 7021-8 ####[facility]IA [id number] [place] [address] [place] Monocytes (Bld) [#/Vol] 0.60 10*3/uL Normal <0.87 [facility] Comment on above: Order Comment: Speci men Type: BLOOD SPECIMENOrdering Facility: [facility] Address: [address] [place] [address] Performed By: #### 5 7021-8 ####[facility] LABCLIA [id number] [place] [address] [place] Monocytes/100 WBC (Bld) 10.1 % Normal [facility] Comment on above: Order Comment: Speci men Type: BLOOD SPECIMENOrdering Facility: [facility] Address: [address] [place] [address] Performed By: #### 5 7021-8 ####[facility] LABCLIA [id number] [place] [address] [place] Neutrophils (Bld) [#/Vol] 2.81 10*3/uL Normal 1.45-7.50 [facility] Comment on above: Order Comment: Speci men Type: BLOOD SPECIMENOrdering Facility: [facility] Address: [address] [place] [address] Performed By: #### 5 7021-8 ####[facility] LABCLIA [id number] [place] [address] [place] Neutrophils/100 WBC (Bld) 47.1 % Normal [facility] Comment on above: Order Comment: Speci men Type: BLOOD SPECIMENOrdering Facility: [facility] Address: [address] [place] [address] Performed By: #### 5 7021-8 ####[facility] LABCLIA [id number] [place] [address] [place] Nucleated RBC (Bld) [#/Vol] 10*3/uL Normal <0.01 [facility] Comment on above: Order Comment: Speci men Type: BLOOD SPECIMENOrdering Facility: [facility] Address: [address] [place] [address] Performed By: #### 5 7021-8 ####[facility] LABCLIA [id number] [place] [address] [place] Nucleated RBC/100 WBC (Bld) [Ratio] 0.0 /100 WBC Normal [facility] Comment on above: Order Comment: Speci men Type: BLOOD SPECIMENOrdering Facility: [facility] Address: [address] [place] [address] Performed By: #### 5 7021-8 ####[facility] LABCLIA [id number] [place] [address] [place] Platelet mean volume (Bld) [Entitic vol] 9.6 fL Normal 9.0-12.7 [facility] Comment on above: Order Comment: Speci men Type: BLOOD SPECIMENOrdering Facility: [facility] Address: [address] [place] [address] Performed By: #### 5 7021-8 ####[facility]IA [id number] [place] [address] [place] Platelets (Bld) [#/Vol] 239 10*3/uL Normal 150-400 [facility] Comment on above: Order Comment: Speci men Type: BLOOD SPECIMENOrdering Facility: [facility] Address: [address] [place] [address] Performed By: #### 5 7021-8 ####[facility]IA [id number] [place] [address] [place] RBC (Bld) [#/Vol] 4.78 10*6/uL Normal 3.90-5.20 [facility] Comment on above: Order Comment: Speci men Type: BLOOD SPECIMENOrdering Facility: [facility] Address: [address] [place] [address] Performed By: #### 5 7021-8 ####[facility]IA [id number] [place] [address] [place] WBC (Bld) [#/Vol] 5.97 10*3/uL Normal 3.70-11.00 [facility] Comment on above: Order Comment: Speci men Type: BLOOD SPECIMENOrdering Facility: [facility] Address: [address] [place] [address] Performed By: #### 5 7021-8 ####[facility]IA [id number] [place] [address] [place] CNCNPATEDon 07-17-2023 CNCNPATED Normal [facility] CNOVon 07-17-2023 CNOV Normal [facility] CONFIRM BLOOD TYPEon 024 ABO B Normal [facility] Comment on above: Order Comment: Speci men Type: BLOOD SPECIMENOrdering Facility: [facility] Address: [address] [place] [address] Performed By: #### C ONABO ####[facility] BANKCLIA [id number] [place] [address] [place] Rh Nom (Bld) Positive Normal [facility] Comment on above: Order Comment: Speci men Type: BLOOD SPECIMENOrdering Facility: [facility] Address: [address] [place] [address] Performed By: #### C ONABO ####[facility] BLOOD BANKCLIA [id number] [place] [address] [place] Comprehensive metabolic 2000 panelon 07-17-2023 Albumin [Mass/Vol] 4.1 g/dL Normal 3.9-4.9 [facility] Comment on above: Order Comment: Speci men Type: BLOOD SPECIMENOrdering Facility: [facility] Address: [address] [place] [address] Performed By: #### 2 532-0, 93761-4 ####[facility] LABCLIA [id number] [place] [address] [place] ALP [Catalytic activity/Vol] 86 U/L Normal 34-123 [facility] Comment on above: Order Comment: Speci men Type: BLOOD SPECIMENOrdering Facility: [facility] Address: [address] [place] [address] Performed By: #### 2 532-0, 86595-2 ####[facility] LABCLIA [id number] [place] [address] [place] ALT [Catalytic activity/Vol] 11 U/L Normal 7-38 [facility] Comment on above: Order Comment: Speci men Type: BLOOD SPECIMENOrdering Facility: [facility] Address: [address] [place] [address] Performed By: #### 2 532-0, 02268-9 ####[facility] LABCLIA [id number] [place] [address] [place] Anion gap [Moles/Vol] 14 mmol/L Normal 9-18 [facility] Comment on above: Order Comment: Speci men Type: BLOOD SPECIMENOrdering Facility: [facility] Address: [address] [place] [address] Performed By: #### 2 532-0, 70881-8 ####[facility] LABCLIA [id number] [place] [address] [place] AST [Catalytic activity/Vol] 11 U/L Low 13-35 [facility] Comment on above: Order Comment: Speci men Type: BLOOD SPECIMENOrdering Facility: [facility] Address: [address] [place] [address] Performed By: #### 2 532-0, 32295-5 ####[facility] LABCLIA [id number] [place] [address] [place] Bilirubin [Mass/Vol] 0.2 mg/dL Normal 0.2-1.3 [facility] Comment on above: Order Comment: Speci men Type: BLOOD SPECIMENOrdering Facility: [facility] Address: [address] [place] [address] Performed By: #### 2 532-0, 55512-2 ####[facility] LABCLIA [id number] [place] [address] [place] Calcium [Mass/Vol] 9.9 mg/dL Normal 8.5-10.2 [facility] Comment on above: Order Comment: Speci men Type: BLOOD SPECIMENOrdering Facility: [facility] Address: [address] [place] [address] Performed By: #### 2 532-0, 40308-3 ####[facility] LABCLIA [id number] [place] [address] [place] Chloride [Moles/Vol] 102 mmol/L Normal 97-105 [facility] Comment on above: Order Comment: Speci men Type: BLOOD SPECIMENOrdering Facility: [facility] Address: [address] [place] [address] Performed By: #### 2 532-0, 79155-8 ####[facility] LABCLIA [id number] [place] [address] [place] CO2 [Moles/Vol] 23 mmol/L Normal 22-30 [facility] Comment on above: Order Comment: Speci men Type: BLOOD SPECIMENOrdering Facility: [facility] Address: [address] [place] [address] Performed By: #### 2 532-0, 18878-6 ####[facility] LABCLIA [id number] [place] [address] [place] Creatinine [Mass/Vol] 1.01 mg/dL High 0.58-0.96 [facility] Comment on above: Order Comment: Speci men Type: BLOOD SPECIMENOrdering Facility: [facility] Address: [address] [place] [address] Performed By: #### 2 532-0, 93904-1 ####[facility] LABIA [id number] [address] STATES OF [facility] Creatinine and Glomerular filtration rate.predicted panel (S/P/Bld) 62 mL/min/1.73m??? Normal >=60 [facility] Comment on above: Order Comment: Speci men Type: BLOOD SPECIMENOrdering Facility: [facility] Address: [address] [place] [address] Result Comment: Annelise mated Glomerular Filtration Rate [...] actual GFR. Performed By: #### 2 532-0, 29763-0 ####[facility] LABCLIA [id number] [place] [address] [place] Glucose [Mass/Vol] 140 mg/dL High 74-99 [facility] Comment on above: Order Comment: Speci men Type: BLOOD SPECIMENOrdering Facility: [facility] Address: [address] [place] [address] Result Comment: The [place] Diabetes Association (ADA) provides guidance for cutoff [...] Standards of Medical Care in Diabetes 2016, [place] [employer]. Diabetes Care. 2016.39(Suppl 1). Performed By: #### 2 532-0, 12285-4 ####[facility]IA [id number] [place] [address] [place] Potassium [Moles/Vol] 4.9 mmol/L Normal 3.7-5.1 [facility] Comment on above: Order Comment: Speci men Type: BLOOD SPECIMENOrdering Facility: [facility] Address: [address] [place] [address] Performed By: #### 2 532-0, 31715-5 ####[facility]IA [id number] [place] [address] [place] Protein [Mass/Vol] 6.0 g/dL Low 6.3-8.0 [facility] Comment on above: Order Comment: Speci men Type: BLOOD SPECIMENOrdering Facility: [facility] Address: [address] [place] [address] Performed By: #### 2 532-0, 55461-1 ####[facility] LABCLIA [id number] [place] [address] [place] Sodium [Moles/Vol] 139 mmol/L Normal 136-144 [facility] Comment on above: Order Comment: Speci men Type: BLOOD SPECIMENOrdering Facility: [facility] Address: [address] [place] [address] Performed By: #### 2 532-0, 04296-1 ####[facility] [id number] [place] [address] [place] Urea nitrogen [Mass/Vol] 21 mg/dL Normal 7-21 [facility] Comment on above: Order Comment: Sybili men Type: BLOOD SPECIMENOrdering Facility: [facility] Address: [address] [place] [address] Performed By: #### 2 532-0, 80615-2 ####[facility] [id number] [place] [address] [place] HbA1c (Bld)on 07-17-2023 Average glucose Estimated from glycated hemoglobin (Bld) [Mass/Vol] 148 mg/dL Normal [facility] Comment on above: Order Comment: Sybili men Type: BLOOD SPECIMENOrdering Facility: [facility] Address: [address] [place] [address] Result Comment: eAG: (Estimated average glucose) is a calculated value from HgbA1c and is b2b outside sales representative of the average blood glucose level in the last 2-3 month period. Performed By: #### 5 5454-3 ####[facility] [id number] [place] [address] [place] HbA1c (Bld) [Mass fraction] 6.8 % High 4.3-5.6 [facility] Comment on above: Order Comment: Sybili men Type: BLOOD SPECIMENOrdering Facility: [facility] Address: [address] [place] [address] Result Comment: [place] Diabetes Association guidelines indicate that patients with HgbA1c in the range 5.7-6.4% are at increased risk for development of diabetes, and intervention by lifestyle modification may be beneficial. HgbA1c greater or equal to 6.5% is considered diagnostic of diabetes. Performed By: #### 5 5454-3 ####[facility] LABCLIA [id number] [place] [address] [place] LDH SerPl-cCncon 07-17-2023 LDH [Catalytic activity/Vol] 146 U/L Normal 135-214 [facility] Comment on above: Order Comment: Specmarko men Type: BLOOD SPECIMENOrdering Facility: [facility] Address: [address] [place] [address] Performed By: #### 2 532-0, 95745-3 ####[facility] LABCLIA [id number] [place] [address] [place] PT panel Coag (PPP)on 2023 INR Coag (PPP) [Relative time] 1.1 {INR} Normal 0.9-1.3 [facility] Comment on above: Order Comment: Phyllis stein Type: BLOOD SPECIMENOrdering Facility: [facility] Address: [address] [place] [address] Result Comment: Suzanne min K Antagonist (VKA) Therapeutic Range: INR 2 to 3 (Target INR of 2.5)Note: For patients treated with VKA drugs, such as warfarin, the [place] [employer] 2012 Guideline recommends [...] al. Chest 2012, 141:7S-47SNishausten RA, et al. [facility] 2017, 70: 252-289 Performed By: #### 3 4528-0, 98753-8 ####[facility] LABCLIA [id number] [place] [address] [place] PT Coag (PPP) [Time] 11.2 s Normal 9.7-13.0 [facility] Comment on above: Order Comment: Speci men Type: BLOOD SPECIMENOrdering Facility: [facility] Address: [address] [place] [address] Performed By: #### 3 4528-0, 85022-1 ####[facility] LABCLIA [id number] [place] [address] [facility] [place] STAPH AUREUS PCRon S. aureus and MRSA panel WALKER+probe (Nose) Normal Negative [facility] Comment on above: Order Comment: Speci men Type: SWAB OF INTERNAL NOSEOrdering Facility: [facility] Address: [address] [place] [address] Result Comment: Nega tive for Staphylococcus aureus by PCR.Negative for MRSA by PCR Performed By: #### S APCR ####[facility] LABCLIA [id number] [address] [place] TYPE AND SCREEN,30 DAYon ABO B Normal [facility] Comment on above: Order Comment: Speci men Type: BLOOD SPECIMENOrdering Facility: [facility] Address: [address] [place] [address] Performed By: #### T SCR30 ####[facility] BLOOD BANKCLIA [id number] [place] [address] [place] HISTORICAL AB SCR STATUS Negative Normal [facility] Comment on above: Order Comment: Speci men Type: BLOOD SPECIMENOrdering Facility: [facility] Address: [address] [place] [address] Performed By: #### T SCR30 ####[facility] BLOOD BANKCLIA [id number] [place] [address] [place] Rh Nom (Bld) Positive Normal [facility] Comment on above: Order Comment: Speci men Type: BLOOD SPECIMENOrdering Facility: [facility] Address: [address] [place] [address] Performed By: #### T SCR30 ####[facility] BLOOD [facility] [id number] [place] [address] [place] URINALYSIS, DIPSTICK ONLYon 07-17-2023 Bilirubin Ql (U) Negative Normal Negative [facility] Comment on above: Order Comment: Speci men Type: URINE SPECIMENOrdering Facility: [facility] Address: [address] [place] [address] Performed By: #### U A ####[facility] LABCLIA [id number] [place] [address] [place] Clarity (Unsp spec) Clear Normal Clear [facility] Comment on above: Order Comment: Speci men Type: URINE SPECIMENOrdering Facility: [facility] Address: [address] [place] [address] Performed By: #### U A ####[facility] LABIA [id number] [place] [address] [place] Color (U) Yellow Normal Yellow [facility] Comment on above: Order Comment: Speci men Type: URINE SPECIMENOrdering Facility: [facility] Address: [address] [place] [address] Performed By: #### U A ####[facility] LABCLIA [id number] [place] [address] [place] Glucose Test strip (U) [Mass/Vol] 3+ Abnormal Negative [facility] Comment on above: Order Comment: Speci men Type: URINE SPECIMENOrdering Facility: [facility] Address: [address] [place] [address] Performed By: #### U A ####[facility] [facility] LAB[facility] [id number] [place] [address] [place] Hemoglobin Ql (U) Negative Normal Negative [facility] Comment on above: Order Comment: Speci men Type: URINE SPECIMENOrdering Facility: [facility] Address: [address] [place] [address] Performed By: #### U A ####[facility] LABCLIA [id number] [place] [address] [place] Ketones Ql (U) Negative Normal Negative [facility] Comment on above: Order Comment: Speci men Type: URINE SPECIMENOrdering Facility: [facility] Address: [address] [place] [address] Performed By: #### U A ####[facility] LABCLIA [id number] [place] [address] [place] Leukocyte esterase Test strip Ql (U) Negative Normal Negative [facility] Comment on above: Order Comment: Speci men Type: URINE SPECIMENOrdering Facility: [facility] Address: [address] [place] [address] Performed By: #### U A ####[facility] LABCLIA [id number] [place] [address] [place] Nitrite Ql (U) Negative Normal Negative [facility] Comment on above: Order Comment: Speci men Type: URINE SPECIMENOrdering Facility: [facility] Address: [address] [place] [address] Performed By: #### U A ####[facility] LABCLIA [id number] [place] [address] [place] pH (U) 6.0 [pH] Normal <8.5 [facility] Comment on above: Order Comment: Speci men Type: URINE SPECIMENOrdering Facility: [facility] Address: [address] [place] [address] Performed By: #### U A ####[facility] LABCLIA [id number] [place] [address] [place] Protein (U) [Mass/Vol] Negative Normal Negative [facility] Comment on above: Order Comment: Speci men Type: URINE SPECIMENOrdering Facility: [facility] Address: [address] [place] [address] Performed By: #### U A ####[facility] LABIA [id number] [place] [address] [place] Specific gravity (U) [Rel density] 1.026 Normal 1.005-1.030 [facility] Comment on above: Order Comment: Speci men Type: URINE SPECIMENOrdering Facility: [facility] Address: [address] [place] [address] Performed By: #### U A ####[facility] [id number] [place] [address] [place] Urobilinogen Ql (U) 1.0 EU/dL Normal 0.2-1.0 EU/dL [facility] Comment on above: Order Comment: Speci men Type: URINE SPECIMENOrdering Facility: [facility] Address: [address] [place] [address] Performed By: #### U A ####[facility] [id number] [place] [address] [place] aPTT PPPon 07-17-2023 aPTT Coag (PPP) [Time] 31.3 s Normal 23.0-32.4 [facility] Comment on above: Order Comment: Speci men Type: BLOOD SPECIMENOrdering Facility: [facility] Address: [address] [place] [address] Performed By: #### 3 4528-0, 19233-7 ####[facility] LABIA [id number] [place] [address] [place] CNPNon 07-11-2023 CNPN Normal [facility] CNOVon 07-02-2023 CNOV Normal [facility] CNOV Normal [facility] CNOV Normal [facility] CTA ABD/PEL/LOWER EXT WO/W I VCONon 07-02-2023 CTA ABD/PEL/LOWER EXT WO/W IVCON Normal [facility] CTA CHEST (NONGATED) W IVCON on 07-02-2023 CTA CHEST (NONGATED) W IVCON Normal [facility] ECG COMPLETEon 07-02-2023 ECG COMPLETE Normal [facility] CNPTOUTREACHon 06-27-2023 CNPTOUTREACH Normal [facility] CNPNon 06-26-2023 CNPN Normal [facility] CNPTOUTREACHon 06-21-2023 CNPTOUTREACH Normal [facility] CNOVon 06-14-2023 CNOV Normal [facility] CT CHEST CARDIAC WO IVCONon 06-14-2023 CT CHEST CARDIAC WO IVCON Invalid Interpretation Code [facility] PVR LEG LOVE VAS LABon 2022 PVR LEG LOVE VAS LAB Normal [facility] US CAROTID ARTERIES LOVE VAS LABon 06-14-2023 US CAROTID ARTERIES LOVE VAS LAB Normal [facility] US LEG VEIN MAP LOVE VAS LABo n 06-14-2023 US LEG VEIN MAP LOVE VAS LAB Normal [facility] US MAMMARY ARTERY LOVE VAS LA Bon 06-14-2023 US MAMMARY ARTERY LOVE VAS LAB Normal [facility] US RADIAL ARTERY MAP LOVE VAS LABon 06-14-2023 US RADIAL ARTERY MAP LOVE VAS LAB Normal [facility] Reminderson 06-10-2023 Reminders - From: Celia Donohue LPN To: GSN - Clinical; Sent: 06/10/2023 15:55:47 EST Show up: 04/10/2025 07:00:00 EDT Subject: colonoscopy recall Due Date/Time: 05/11/2025 07:00:00 EST Reminder/Recall Patient due for surveillance colonoscopy 05/11/2025. Normal [facility] CNPNon 05-30-2023 CNPN Normal [facility] Comprehensive metabolic 2000 panelon 05-29-2023 Albumin [Mass/Vol] 4.2 g/dL 3.9 - 4.9 g/dL [facility] ALP [Catalytic activity/Vol] 78 U/L 34 - 123 U/L [facility] ALT [Catalytic activity/Vol] 17 U/L 7 - 38 U/L [facility] Anion gap [Moles/Vol] 15 mmol/L 9 - 18 mmol/L [facility] AST [Catalytic activity/Vol] 16 U/L 13 - 35 U/L [facility] Bilirubin [Mass/Vol] 0.2 mg/dL 0.2 - 1 .3 mg/dL [facility] Calcium [Mass/Vol] 10.5 mg/dL High 8.5 - 10. 2 mg/dL [facility] Chloride [Moles/Vol] 100 mmol/L 97 - 10 5 mmol/L [facility] CO2 [Moles/Vol] 21 mmol/L Low 22 - 30 mmol/L [facility] Creatinine [Mass/Vol] 0.82 mg/dL 0.58 - 0.96 mg/dL [facility] Estimated Glomerular Filtration Rate 79 mL/min/1.73m >=60 mL/min/1.73m [facility] Glucose [Mass/Vol] 216 mg/dL High 74 - 99 mg/dL [facility] Potassium [Moles/Vol] 4.8 mmol/L 3.7 - 5.1 mmol/L [facility] Protein [Mass/Vol] 6.7 g/dL 6.3 - 8.0 g/dL [facility] Sodium [Moles/Vol] 136 mmol/L 136 - 144 mmol/L [facility] Urea nitrogen [Mass/Vol] 22 mg/dL High 7 - 21 mg/dL [facility] LIPID PANEL, NONFASTINGon Cholesterol [Mass/Vol] 220 mg/dL High <200 mg/dL [facility] HDL Cholesterol, Nonfasting 35 mg/dL Low >39 mg/dL [facility] LDL Cholesterol, Nonfasting [facility] LDL/HDL Ratio, Nonfasting [facility] Non HDL Cholesterol, Nonfasting 185 mg/dL High <130 mg/dL [facility] Total Chol/HDL Ratio, Nonfasting 6.29 mg/dL High <5.10 mg/dL [facility] Triglycerides, Nonfasting 414 mg/dL High <150 mg/dL [facility] VLDL Cholesterol, Nonfasting [facility] CBC panel Auto (Bld)on 05-28 Erythrocyte distribution width (RBC) [Ratio] 13.5 % 11.5 - 15.0 % [facility] Hematocrit (Bld) [Volume fraction] 47.6 % High 36.0 - 46.0 % [facility] Hemoglobin (Bld) [Mass/Vol] 15.6 g/dL High 11.5 - 15.5 g/dL [facility] MCH (RBC) [Entitic mass] 31.1 pg 26.0 - 34.0 pg [facility] MCHC (RBC) [Mass/Vol] 32.8 g/dL 30.5 - 36.0 g/dL [facility] MCV (RBC) [Entitic vol] 94.8 fL 80.0 - 100.0 fL [facility] Nucleated RBC (Bld) [#/Vol] <0.01 k/uL [facility] Platelet mean volume (Bld) [Entitic vol] 9.9 fL 9.0 - 12.7 fL [facility] Platelets (Bld) [#/Vol] 295 10*3/uL 150 - 400 k/uL [facility] RBC (Bld) [#/Vol] 5.02 10*6/uL 3.90 - 5.2 0 m/uL [facility] WBC (Bld) [#/Vol] 8.12 10*3/uL 3.70 - 11. 00 k/uL [facility] Erythrocyte distribution width (RBC) [Ratio] 13.5 % Normal 11.5-15.0 [facility] Comment on above: Order Comment: Speci men Type: BLOOD SPECIMENOrdering Facility: [facility] Address: [address] [place] [address] Performed By: #### 5 8410-2 ####[facility] LABCLIA [id number] [place] [address] [place] Hematocrit (Bld) [Volume fraction] 47.6 % High 36.0-46.0 [facility] Comment on above: Order Comment: Speci men Type: BLOOD SPECIMENOrdering Facility: [facility] Address: [address] [place] [address] Performed By: #### 5 8410-2 ####[facility] LABCLIA [id number] [place] [address] [place] Hemoglobin (Bld) [Mass/Vol] 15.6 g/dL High 11.5-15.5 [facility] Comment on above: Order Comment: Speci men Type: BLOOD SPECIMENOrdering Facility: [facility] Address: [address] [place] [address] Performed By: #### 5 8410-2 ####[facility] LABCLIA [id number] [place] [address] [place] MCH (RBC) [Entitic mass] 31.1 pg Normal 26.0-34.0 [facility] Comment on above: Order Comment: Speci men Type: BLOOD SPECIMENOrdering Facility: [facility] Address: [address] [place] [address] Performed By: #### 5 8410-2 ####[facility] LABCLIA [id number] [place] [address] [place] MCHC (RBC) [Mass/Vol] 32.8 g/dL Normal 30.5-36.0 [facility] Comment on above: Order Comment: Speci men Type: BLOOD SPECIMENOrdering Facility: [facility] Address: [address] [place] [address] Performed By: #### 5 8410-2 ####[facility] LABIA [id number] [place] [address] [place] MCV (RBC) [Entitic vol] 94.8 fL Normal 80.0-100.0 [facility] Comment on above: Order Comment: Speci men Type: BLOOD SPECIMENOrdering Facility: [facility] Address: [address] [place] [address] Performed By: #### 5 8410-2 ####[facility] LABCLIA [id number] [place] [address] [place] Nucleated RBC (Bld) [#/Vol] 10*3/uL Normal <0.01 [facility] Comment on above: Order Comment: Speci men Type: BLOOD SPECIMENOrdering Facility: [facility] Address: [address] [place] [address] Performed By: #### 5 8410-2 ####[facility] LABIA [id number] [place] [address] [place] Platelet mean volume (Bld) [Entitic vol] 9.9 fL Normal 9.0-12.7 [facility] Comment on above: Order Comment: Speci men Type: BLOOD SPECIMENOrdering Facility: [facility] Address: [address] [place] [address] Performed By: #### 5 8410-2 ####[facility] LABIA [id number] [place] [address] [place] Platelets (Bld) [#/Vol] 295 10*3/uL Normal 150-400 [facility] Comment on above: Order Comment: Speci men Type: BLOOD SPECIMENOrdering Facility: [facility] Address: [address] [place] [address] Performed By: #### 5 8410-2 ####[facility] LABIA [id number] [place] [address] [place] RBC (Bld) [#/Vol] 5.02 10*6/uL Normal 3.90-5.20 [facility] Comment on above: Order Comment: Speci men Type: BLOOD SPECIMENOrdering Facility: [facility] Address: [address] [place] [address] Performed By: #### 5 8410-2 ####[facility] LABIA [id number] [place] [address] [place] WBC (Bld) [#/Vol] 8.12 10*3/uL Normal 3.70-11.00 [facility] Comment on above: Order Comment: Speci men Type: BLOOD SPECIMENOrdering Facility: [facility] Address: [address] [place] [address] Performed By: #### 5 8410-2 ####[facility] LABCLIA [id number] [address] [address] [place] CNOVon 05-28-2023 CNOV Normal [facility] Comprehensive metabolic 2000 panelon 05-28-2023 Albumin [Mass/Vol] 4.2 g/dL Normal 3.9-4.9 [facility] Comment on above: Order Comment: Speci men Type: BLOOD SPECIMENOrdering Facility: [facility] Address: [address] [place] [address] Performed By: #### 3 3762-6, 81419-5, LIPNF ####[facility] LABIA [id number] [place] [address] [place] ALP [Catalytic activity/Vol] 78 U/L Normal 34-123 [facility] Comment on above: Order Comment: Speci men Type: BLOOD SPECIMENOrdering Facility: [facility] Address: [address] [place] [address] Performed By: #### 3 3762-6, 56732-7, LIPNF ####[facility] LABIA [id number] [place] [address] [place] ALT [Catalytic activity/Vol] 17 U/L Normal 7-38 [facility] Comment on above: Order Comment: Speci men Type: BLOOD SPECIMENOrdering Facility: [facility] Address: [address] [place] [address] Performed By: #### 3 3762-6, 74718-4, LIPNF ####[facility] LABIA [id number] [place] [id number] [place] Anion gap [Moles/Vol] 15 mmol/L Normal 9-18 [facility] Comment on above: Order Comment: Speci men Type: BLOOD SPECIMENOrdering Facility: [facility] Address: [address] [place] [address] Performed By: #### 3 3762-, 36923-3, LIPNF ####[facility] LABCLIA [id number] [place] [address] [place] AST [Catalytic activity/Vol] 16 U/L Normal 13-35 [facility] Comment on above: Order Comment: Speci men Type: BLOOD SPECIMENOrdering Facility: [facility] Address: [address] [place] [address] Performed By: #### 3 376-6, , LIPNF ####[facility] LABCLIA [id number] [place] [address] [place] Bilirubin [Mass/Vol] 0.2 mg/dL Normal 0.2-1.3 [facility] Comment on above: Order Comment: Speci men Type: BLOOD SPECIMENOrdering Facility: [facility] Address: [address] [place] [address] Performed By: #### 3 376-6, , LIPNF ####[facility] LABIA [id number] [place] [address] [place] Calcium [Mass/Vol] 10.5 mg/dL High 8.5-10.2 [facility] Comment on above: Order Comment: Speci men Type: BLOOD SPECIMENOrdering Facility: [facility] Address: [address] [place] [address] Performed By: #### 3 376-6, , LIPNF ####[facility] LABIA [id number] [place] [address] [place] Chloride [Moles/Vol] 100 mmol/L Normal 97-105 [facility] Comment on above: Order Comment: Speci men Type: BLOOD SPECIMENOrdering Facility: [facility] Address: [address] [place] [address] Performed By: #### 3 3762-6, , LIPNF ####[facility] LABIA [id number] [place] [address] [place] CO2 [Moles/Vol] 21 mmol/L Low 22-30 [facility] Comment on above: Order Comment: Speci men Type: BLOOD SPECIMENOrdering Facility: [facility] Address: [address] [place] [address] Performed By: #### 3 3762-6, 02944-5, LIPNF ####[facility] LABCLIA [id number] [place] [address] [place] Creatinine [Mass/Vol] 0.82 mg/dL Normal 0.58-0.96 [facility] Comment on above: Order Comment: Speci men Type: BLOOD SPECIMENOrdering Facility: [facility] Address: [address] [place] [address] Performed By: #### 3 3762-6, 00053-7, LIPNF ####[facility] LABCLIA [id number] [place] [address] [place] Creatinine and Glomerular filtration rate.predicted panel (S/P/Bld) 79 mL/min/1.73m??? Normal >=60 [facility] Comment on above: Order Comment: Speci men Type: BLOOD SPECIMENOrdering Facility: [facility] Address: [address] [place] [address] Result Comment: Annelise mated Glomerular Filtration Rate [...] actual GFR. Performed By: #### 3 3762-6, 02017-0, LIPNF ####[facility] LABCLIA [id number] [place] [address] [place] Glucose [Mass/Vol] 216 mg/dL High 74-99 [facility] Comment on above: Order Comment: Speci men Type: BLOOD SPECIMENOrdering Facility: [facility] Address: [address] [place] [address] Result Comment: The [place] [employer] (ADA) provides guidance for cutoff [...] Standards of Medical Care in Diabetes 2016, [place] [employer]. Diabetes Care. 2016.39(Suppl 1). Performed By: #### 3 3762-6, 85237-9, LIPNF ####[facility] LABCLIA [id number] [place] [address] [place] Potassium [Moles/Vol] 4.8 mmol/L Normal 3.7-5.1 [facility] Comment on above: Order Comment: Speci men Type: BLOOD SPECIMENOrdering Facility: [facility] Address: [address] [place] [address] Performed By: #### 3 3762-6, 63420-5, LIPNF ####[facility] LABCLIA [id number] [place] [address] [place] Protein [Mass/Vol] 6.7 g/dL Normal 6.3-8.0 [facility] Comment on above: Order Comment: Speci men Type: BLOOD SPECIMENOrdering Facility: [facility] Address: [address] [place] [address] Performed By: #### 3 3762-6, 82690-6, LIPNF ####[facility] LABCLIA [id number] [place] [address] [place] Sodium [Moles/Vol] 136 mmol/L Normal 136-144 [facility] Comment on above: Order Comment: Speci men Type: BLOOD SPECIMENOrdering Facility: [facility] Address: [address] [place] [address] Performed By: #### 3 3762-6, , LIPNF ####[facility] LABCLIA [id number] [place] [address] [place] Urea nitrogen [Mass/Vol] 22 mg/dL High 7- [facility] Comment on above: Order Comment: Speci men Type: BLOOD SPECIMENOrdering Facility: [facility] Address: [address] [place] [address] Performed By: #### 3 3762-6, , LIPNF ####[facility] LABCLIA [id number] [place] [address] [place] LIPID PANEL, NONFASTINGon Cholesterol [Mass/Vol] 220 mg/dL High <200 [facility] Comment on above: Order Comment: Speci men Type: BLOOD SPECIMENOrdering Facility: [facility] Address: [address] [place] [address] Result Comment: <200 mg/dL, Desirable 200-239 mg/dL, Borderline high>239 mg/dL, High Performed By: #### 3 376-6, , LIPNF ####[facility] LABCLIA [id number] [place] [address] [place] HDL CHOLESTEROL, NF 35 mg/dL Low >39 [facility] Comment on above: Order Comment: Speci men Type: BLOOD SPECIMENOrdering Facility: [facility] Address: [address] [place] [address] Result Comment: 40-5 9 mg/dL, Acceptable>59 mg/dL, High: Negative risk factor for coronary heart disease<40 mg/dL, Low: Positive risk factor for coronary heart disease Performed By: #### 3 3762-6, 69923-5, LIPNF ####[facility] LABCLIA [id number] [place] [address] [place] LDL CHOLESTEROL, NF Normal [facility] Comment on above: Order Comment: Speci sarita Type: BLOOD SPECIMENOrdering Facility: [facility] Address: [address] [place] [address] Result Comment: Unab le to calculate due to increased Triglycerides. A Direct LDL Cholesterol measurement will not be performed. If clinically indicated, a fasting Basic Lipid Panel (LIPB) may be ordered. Performed By: #### 3 3762-6, 46591-1, LIPNF ####[facility] LABCLIA [id number] [address] STATES OF [facility] LDL/HDL RATIO, NF Normal [facility] Comment on above: Order Comment: Sybili sarita Type: BLOOD SPECIMENOrdering Facility: [facility] Address: [address] [place] [address] Result Comment: Unab le to calculate due to elevated Triglycerides.Reference:1. National Cholesterol Education Program ATP III Guideline At-A-Glance Quick Desk Reference: National Heart, Lung, and Blood Salvo. National Institutes of Health. 2001: NIH Publication No. 01-3305.2. An International Atherosclerosis Society position paper: global recommendations for the management of dyslipidemia: executive summary, Atherosclerosis. 2014: 232(2):410-413. Performed By: #### 3 3762-6, 67144-3, LIPNF ####[facility] LABCLIA [id number] [address] [place] NON HDL CHOL, NF 185 mg/dL High <130 [facility] Comment on above: Order Comment: Phyllis stein Type: BLOOD SPECIMENOrdering Facility: [facility] Address: [address] [place] [address] Result Comment: <130 mg/dL, Optimal 130-159 mg/dL, Near optimal/above optimal 160-189 mg/dL, Borderline high 190-219 mg/dL, High>219 mg/dL, Very highSecondary prevention optimal non HDL Cholesterol levels are recommended to be <100 mg/dL Performed By: #### 3 3762-6, 25531-9, LIPNF ####[facility] LABCLIA [id number] [place] [address] [place] T CHOL/HDL RATIO NF 6.29 mg/dL High <5.10 [facility] Comment on above: Order Comment: Speci men Type: BLOOD SPECIMENOrdering Facility: [facility] Address: [address] [place] [address] Performed By: #### 3 3762-6, 72278-5, LIPNF ####[facility] LABCLIA [id number] [place] [address] [place] TRIGLYCERIDES, NF 414 mg/dL High <150 [facility] Comment on above: Order Comment: Speci men Type: BLOOD SPECIMENOrdering Facility: [facility] Address: [address] [place] [address] Result Comment: <150 mg/dL, Normal 150-199 mg/dL, Borderline high 200-499 mg/dL, High>499 mg/dL, Very high Performed By: #### 3 3762-6, 98625-2, LIPNF ####[facility] LABIA [id number] [place] [address] [place] VLDL CHOLESTEROL, NF Normal [facility] Comment on above: Order Comment: Speci men Type: BLOOD SPECIMENOrdering Facility: [facility] Address: [address] [place] [address] Result Comment: Unab le to calculate due to elevated Triglycerides. Performed By: #### 3 3762-6, 34094-1, LIPNF ####[facility] LABCLIA [id number] [place] [address] [place] NT PRO BNPon 05-28-2023 Natriuretic peptide.B prohormone N-Terminal [Mass/Vol] 200 pg/mL High <125 pg/mL [facility] NT-proBNP SerPl-mCncon 05-28 Natriuretic peptide.B prohormone N-Terminal [Mass/Vol] 200 pg/mL High <125 [facility] Comment on above: Order Comment: Speci men Type: BLOOD SPECIMENOrdering Facility: [facility] Address: [address] [place] [address] Performed By: #### 3 3762-6, 50384-7, LIPUGO ####[facility] LABCLIA [id number] [place] [address] [place] CNPNon 05-08-2023 CNPN Normal [facility] CNPNon 05-02-2023 CNPN Normal [facility] CBC panel Auto (Bld)on 04-03 Erythrocyte distribution width (RBC) [Ratio] 13.0 % 11.5 - 15.0 % [facility] Hematocrit (Bld) [Volume fraction] 53.9 % High 36.0 - 46.0 % [facility] Hemoglobin (Bld) [Mass/Vol] 18.6 g/dL High 11.5 - 15.5 g/dL [facility] MCH (RBC) [Entitic mass] 29.8 pg 26.0 - 34.0 pg [facility] MCHC (RBC) [Mass/Vol] 34.5 g/dL 30.5 - 36.0 g/dL [facility] MCV (RBC) [Entitic vol] 86.2 fL 80.0 - 100.0 fL [facility] Nucleated RBC (Bld) [#/Vol] <0.01 k/uL [facility] Platelet mean volume (Bld) [Entitic vol] 9.6 fL 9.0 - 12.7 fL [facility] Platelets (Bld) [#/Vol] 269 10*3/uL 150 - 400 k/uL [facility] RBC (Bld) [#/Vol] 6.25 10*6/uL High 3.90 - 5.2 0 m/uL [facility] WBC (Bld) [#/Vol] 10.50 10*3/uL 3.70 - 11 .00 k/uL [facility] Comprehensive metabolic 2000 panelon 04-03-2023 Albumin [Mass/Vol] 4.6 g/dL 3.9 - 4.9 g/dL [facility] ALP [Catalytic activity/Vol] 82 U/L 34 - 123 U/L [facility] ALT [Catalytic activity/Vol] 15 U/L 7 - 38 U/L [facility] Anion gap [Moles/Vol] 19 mmol/L High 9 - 18 mmol/L [facility] AST [Catalytic activity/Vol] 14 U/L 13 - 35 U/L [facility] Bilirubin [Mass/Vol] 0.9 mg/dL 0.2 - 1 .3 mg/dL [facility] Calcium [Mass/Vol] 10.5 mg/dL High 8.5 - 10. 2 mg/dL [facility] Chloride [Moles/Vol] 94 mmol/L Low 97 - 10 5 mmol/L [facility] CO2 [Moles/Vol] 18 mmol/L Low 22 - 30 mmol/L [facility] Creatinine [Mass/Vol] 0.81 mg/dL 0.58 - 0.96 mg/dL [facility] Estimated Glomerular Filtration Rate 81 mL/min/1.73m >=60 mL/min/1.73m [facility] Glucose [Mass/Vol] 241 mg/dL High 74 - 99 mg/dL [facility] Potassium [Moles/Vol] 4.2 mmol/L 3.7 - 5.1 mmol/L [facility] Protein [Mass/Vol] 7.5 g/dL 6.3 - 8.0 g/dL [facility] Sodium [Moles/Vol] 131 mmol/L Low 136 - 144 mmol/L [facility] Urea nitrogen [Mass/Vol] 20 mg/dL 7 - 21 mg/dL [facility] HbA1c (Bld)on 04-03-2023 Average glucose Estimated from glycated hemoglobin (Bld) [Mass/Vol] 163 mg/dL [facility] HbA1c (Bld) [Mass fraction] 7.3 % High 4.3 - 5.6 % [facility] PT panel Coag (PPP)on 2022 INR Coag (PPP) [Relative time] 1.1 {INR} 0.9 - 1.3 [facility] PT Coag (PPP) [Time] 11.4 s 9.7 - 1 3.0 sec [facility] Activated partial thrombopla stin time (aPTT) in platelet poor plasma by coagulation aOrdered By: Patrizia Melendrez on 03-20-2023 aPTT Coag (PPP) [Time] 28.8 s 25.1-36.5 [facility] Comment on above: A hematocrit value g reater than 55% may lead to inaccurate results in coagulation testing. Patients having hematocrit values >55% require a special collection tube for coagulation studies. Please contact the laboratory at [phone] for redraw instructions. Basophils Auto (Bld) [#/Vol] Ordered By: Patrizia Melendrez on 03-20-2023 Basophils (Bld) [#/Vol] 0.0 10*3/uL 0.0-0.2 [facility] Basophils/100 WBC Auto (Bld) Ordered By: Patrizia Melendrez on 03-20-2023 Basophils/100 WBC (Bld) 0.4 % . [facility] Blood Urea Nitrogenon 2022 Urea nitrogen [Mass/Vol] 21 mg/dL Normal 7-25 [facility] Comment on above: Performed By: #### B UN, CBC, CREAT, PP, LYTES, LIPID #### [facility] [address] Carbon dioxide, total [Moles /volume] in Serum or PlasmaOrdered By: Patrizia Melendrez on 03-20-2023 CO2 [Moles/Vol] 28.8 mmol/L 21.0-31.0 [facility] Chloride [Moles/volume] in S radha or PlasmaOrdered By: Patrizia Melendrez on 03-20-2023 Chloride [Moles/Vol] 105 mmol/L 98-107 [facility] Cholesterol [Mass/volume] in Serum or PlasmaOrdered By: Patrizia Melendrez on 03-20-2023 Cholesterol [Mass/Vol] 270 mg/dL 140-200 [facility] Comment on above: Chol less than 200 m g/dl low riskChol 201-239 mg/dl borderline riskChol 240 mg/dl and greater high risk Cholesterol in LDL Calc [Mas s/Vol]Ordered By: Patrizia Melendrez on 03-20-2023 Cholesterol in LDL [Mass/Vol] 170 mg/dL 0-100 [facility] Comment on above: LDL ATP III CLASSIFI CATIONLDL less than 100 mg/dL OptimalLDL 100-129 mg/dL Near or above optimalLDL 130-159 mg/dL Borderline highLDL 160-189 mg/dL HighLDL greater than 189 mg/dL Very high Cholesterol in VLDL Calc [Ma ss/Vol]Ordered By: Patrizia Melendrez on 03-20-2023 Cholesterol in VLDL [Mass/Vol] 55 mg/dL [facility] Coagulation Profileon 2022 aPTT Coag (Bld) [Time] 28.8 s Normal 25.1-36.5 [facility] Comment on above: Result Comment: A he matocrit value greater than 55% may lead to inaccurate results in coagulation testing. Patients having hematocrit values >55% require a special collection tube for coagulation studies. Please contact the laboratory at [phone] for redraw instructions. PERFORMED BY: [place] [address] PATHOLOGIST BOX CLOSING MACHINE OPERATOR KEVYN DAVIDSON M.D. Performed By: #### B UN, CBC, CREAT, PP, LYTES, LIPID #### [address] INR Coag (PPP) [Relative time] 0.9 {INR} Normal [facility] Comment on above: Result Comment: [...] UN, CBC, CREAT, PP, LYTES, LIPID #### [address] PT Coag (PPP) [Time] 11.2 s Normal 9.0-12.9 [facility] Comment on above: Result Comment: A he matocrit value greater than 55% may lead to inaccurate results in coagulation testing. Patients having hematocrit values >55% require a special collection tube for coagulation studies. Please contact the laboratory at [phone] for redraw instructions. Performed By: #### B UN, CBC, CREAT, PP, LYTES, LIPID #### [address] Complete Blood Count Auto Di ffon 03-20-2023 Basophils (Bld) [#/Vol] 0.0 10*3/uL Normal 0.0-0.2 [facility] Comment on above: Result Comment: PERF ORMED BY: [place] [address] PATHOLOGIST BOX CLOSING MACHINE OPERATOR KEVYN DAVIDSON M.D. Performed By: #### B UN, CBC, CREAT, PP, LYTES, LIPID #### [address] Basophils/100 WBC (Bld) 0.4 % Normal . [facility] Comment on above: Performed By: #### B UN, CBC, CREAT, PP, LYTES, LIPID #### [address] Eosinophils (Bld) [#/Vol] 0.3 10*3/uL Normal 0.0-0.45 [facility] Comment on above: Performed By: #### B UN, CBC, CREAT, PP, LYTES, LIPID #### [address] Eosinophils/100 WBC (Bld) 4.1 % Normal . [facility] Comment on above: Performed By: #### B UN, CBC, CREAT, PP, LYTES, LIPID #### [address] Erythrocyte distribution width (RBC) [Ratio] 14.4 % Normal 11.9-15.3 [facility] Comment on above: Performed By: #### B UN, CBC, CREAT, PP, LYTES, LIPID #### [address] Hematocrit (Bld) [Volume fraction] 47.2 % High 34.0-46.4 [facility] Comment on above: Performed By: #### B UN, CBC, CREAT, PP, LYTES, LIPID #### [address] Hemoglobin (Bld) [Mass/Vol] 16.0 g/dL High 11.8-15.4 [facility] Comment on above: Performed By: #### B UN, CBC, CREAT, PP, LYTES, LIPID #### [address] Lymphocytes (Bld) [#/Vol] 2.5 10*3/uL Normal 1.00-4.8 [facility] Comment on above: Performed By: #### B UN, CBC, CREAT, PP, LYTES, LIPID #### [address] Lymphocytes/100 WBC (Bld) 34.2 % Normal . [facility] Comment on above: Performed By: #### B UN, CBC, CREAT, PP, LYTES, LIPID #### [address] MCH (RBC) [Entitic mass] 30.5 pg Normal 24.7-34.3 [facility] Comment on above: Performed By: #### B UN, CBC, CREAT, PP, LYTES, LIPID #### [address] MCV (RBC) [Entitic vol] 89.9 fL Normal 80-100 [facility] Comment on above: Performed By: #### B UN, CBC, CREAT, PP, LYTES, LIPID #### [address] Mean Corpuscular HGB Conc 33.9 g/dL Normal 32.0-35.0 [facility] Comment on above: Performed By: #### B UN, CBC, CREAT, PP, LYTES, LIPID #### [address] Monocytes (Bld) [#/Vol] 0.6 10*3/uL Normal 0.0-0.8 [facility] Comment on above: Performed By: #### B UN, CBC, CREAT, PP, LYTES, LIPID #### [address] Monocytes/100 WBC (Bld) 8.4 % Normal . [facility] Comment on above: Performed By: #### B UN, CBC, CREAT, PP, LYTES, LIPID #### [address] Neutrophils (Bld) [#/Vol] 3.8 10*3/uL Normal 1.8-7.7 [facility] Comment on above: Performed By: #### B UN, CBC, CREAT, PP, LYTES, LIPID #### [address] Neutrophils/100 WBC (Bld) 52.9 % Normal . [facility] Comment on above: Performed By: #### B UN, CBC, CREAT, PP, LYTES, LIPID #### [address] NRBC% 0.1 /100{WBC} Normal 0-0.5 [facility] Comment on above: Performed By: #### B UN, CBC, CREAT, PP, LYTES, LIPID #### [address] Platelet mean volume (Bld) [Entitic vol] 8.0 fL Normal 6.3-10.7 [facility] Comment on above: Performed By: #### B UN, CBC, CREAT, PP, LYTES, LIPID #### [place] [address] [place] Platelets (Bld) [#/Vol] 232 10*3/uL Normal 150-450 [facility] Comment on above: Performed By: #### B UN, CBC, CREAT, PP, LYTES, LIPID #### [place] [address] [place] RBC (Bld) [#/Vol] 5.25 10*6/uL High 3.60-5.00 [facility] Comment on above: Performed By: #### B UN, CBC, CREAT, PP, LYTES, LIPID #### [place] [address] [place] WBC (Bld) [#/Vol] 7.3 10*3/uL Normal 3.8-11.6 [facility] Comment on above: Performed By: #### B UN, CBC, CREAT, PP, LYTES, LIPID #### [facility] [address] Creatinineon 03-20-2023 Creatinine [Mass/Vol] 0.83 mg/dL Normal 0.60-1.20 [facility] Comment on above: Performed By: #### B UN, CBC, CREAT, PP, LYTES, LIPID #### [facility] [address] GFR/1.73 sq M.predicted MDRD (S/P/Bld) [Vol rate/Area] mL/min/{1.73_m2} Normal [facility] Comment on above: Performed By: #### B UN, CBC, CREAT, PP, LYTES, LIPID #### [address] Creatinine [Mass/volume] in Serum or PlasmaOrdered By: Patrizia Melendrez on 03-20-2023 Creatinine [Mass/Vol] 0.83 mg/dL 0.60-1.20 [facility] Electrolyteson 03-20-2023 Anion gap [Moles/Vol] 8.5 mmol/L Normal 6.0-15.0 [facility] Comment on above: Performed By: #### B UN, CBC, CREAT, PP, LYTES, LIPID #### [address] Chloride [Moles/Vol] 105 mmol/L Normal 98-107 [facility] Comment on above: Performed By: #### B UN, CBC, CREAT, PP, LYTES, LIPID #### [facility] [address] CO2 [Moles/Vol] 28.8 mmol/L Normal 21.0-31.0 [facility] Comment on above: Performed By: #### B UN, CBC, CREAT, PP, LYTES, LIPID #### [facility] [address] [place] [address] [place] Potassium [Moles/Vol] 4.3 mmol/L Normal 3.5-5.1 [facility] Comment on above: Performed By: #### B UN, CBC, CREAT, PP, LYTES, LIPID #### [facility] [address] [place] [id number] [facility] Sodium [Moles/Vol] 138 mmol/L Normal 136-145 [facility] Comment on above: Performed By: #### B UN, CBC, CREAT, PP, LYTES, LIPID #### [facility] [address] Eosinophils Auto (Bld) [#/Vo l]Ordered By: Patrizia Melendrez on 03-20-2023 Eosinophils (Bld) [#/Vol] 0.3 10*3/uL 0.0-0.45 [facility] Eosinophils/100 WBC Auto (Bl d)Ordered By: Patrizia Melendrez on 03-20-2023 Eosinophils/100 WBC (Bld) 4.1 % . [facility] Erythrocyte distribution wid th Auto (RBC) [Ratio]Ordered By: Patrizia Melendrez on 03-20-2023 Erythrocyte distribution width (RBC) [Ratio] 14.4 % 11.9-15.3 [facility] Hematocrit Auto (Bld) [Volum e fraction]Ordered By: Patrizia Melendrez on 03-20-2023 Hematocrit (Bld) [Volume fraction] 47.2 % 34.0-46.4 [facility] Hemoglobin [Mass/volume] in BloodOrdered By: Patrizia Melendrez on 03-20-2023 Hemoglobin (Bld) [Mass/Vol] 16.0 g/dL 11.8-15.4 [facility] INR in Platelet poor plasma by Coagulation assayOrdered By: Patrizia Melnedrez on 03-20-2023 INR Coag (PPP) [Relative time] 0.9 {INR} [facility] Comment on above: INR Therapeutic [...] RBC Auto (Bld) [#/Vol] 7.3 10*3/uL 3.8-11.6 [facility] Lipid Panelon 03-20-2023 Cholesterol [Mass/Vol] 270 mg/dL High 140-200 [facility] Comment on above: Result Comment: Chol less than 200 mg/dl low risk Chol 201-239 mg/dl borderline risk Chol 240 mg/dl and greater high risk Performed By: #### B UN, CBC, CREAT, PP, LYTES, LIPID #### [facility] [address] Cholesterol in HDL [Mass/Vol] 45 mg/dL Normal 23-92 [facility] Comment on above: Result Comment: HDL CHOL ATP-III CLASSIFICATION Cardiovascular Risk HDL > or equal to 60 mg/dL LOW HDL < 40 mg/dL HIGH Performed By: #### B UN, CBC, CREAT, PP, LYTES, LIPID #### [facility] [address] Cholesterol.total/Chol esterol in HDL [Mass ratio] 6.0 {ratio} Normal <5.0 [facility] Comment on above: Result Comment: PERF ORMED BY: [place] [address] PATHOLOGIST BOX CLOSING MACHINE OPERATOR KEVYN DAVIDSON M.D. Performed By: #### B UN, CBC, CREAT, PP, LYTES, LIPID #### [facility] [address] LDL Cholesterol,Calculated 170 mg/dL High 0-100 [facility] Comment on above: Result Comment: LDL ATP III CLASSIFICATION LDL less than 100 mg/dL Optimal LDL 100-129 mg/dL Near or above optimal LDL 130-159 mg/dL Borderline high LDL 160-189 mg/dL High LDL greater than 189 mg/dL Very high Performed By: #### B UN, CBC, CREAT, PP, LYTES, LIPID #### [facility] [address] [place] [address] [place] Triglyceride w/Reflex 277 mg/dL High 0-149 [facility] Comment on above: Result Comment: TRIG ATP III CLASSIFICATION TRIG less than 150 mg/dL Normal TRIG 150-199 mg/dL Borderline high TRIG 200-500 mg/dL High TRIG greater than 500 mg/dL Very high Standard traceable to the Center for Disease Conrtrol and Prevention (CDC) test method. Performed By: #### B UN, CBC, CREAT, PP, LYTES, LIPID #### [facility] [address] VLDL CHOLESTEROL 55 mg/dL Normal [facility] Comment on above: Performed By: #### B UN, CBC, CREAT, PP, LYTES, LIPID #### [facility] [address] Lymphocytes Auto (Bld) [#/Vo l]Ordered By: Patrizia Melendrez on 03-20-2023 Lymphocytes (Bld) [#/Vol] 2.5 10*3/uL 1.00-4.8 [facility] Lymphocytes/100 WBC Auto (Bl d)Ordered By: Patrizia Melendrez on 03-20-2023 Lymphocytes/100 WBC (Bld) 34.2 % . [facility] MCH Auto (RBC) [Entitic mass ]Ordered By: Patrizia Melendrez on 03-20-2023 MCH (RBC) [Entitic mass] 30.5 pg 24.7-34.3 [facility] MCHC Auto (RBC) [Mass/Vol]Or dered By: Patrizia Melendrez on 03-20-2023 MCHC (RBC) [Mass/Vol] 33.9 g/dL 32.0-35.0 [facility] MCV Auto (RBC) [Entitic vol] Ordered By: Patrizia Melendrez on 03-20-2023 MCV (RBC) [Entitic vol] 89.9 fL 80-100 [facility] Monocytes Auto (Bld) [#/Vol] Ordered By: Patrizia Melendrez on 03-20-2023 Monocytes (Bld) [#/Vol] 0.6 10*3/uL 0.0-0.8 [facility] Monocytes/100 WBC Auto (Bld) Ordered By: Patrizia Melendrez on 03-20-2023 Monocytes/100 WBC (Bld) 8.4 % . [facility] Neutrophils Auto (Bld) [#/Vo l]Ordered By: Patrizia Melendrez on 03-20-2023 Neutrophils (Bld) [#/Vol] 3.8 10*3/uL 1.8-7.7 [facility] Neutrophils/100 WBC Auto (Bl d)Ordered By: Patrizia Melendrez on 03-20-2023 Neutrophils/100 WBC (Bld) 52.9 % . [facility] No Panel InformationOrdered By: Patrizia Melendrez on 03-20-2023 Estimated GFR (CKD-EPI) > 60.0 mL/Min [facility] Creatinine Clearance (Chem N/A [facility] Nucleated erythrocytes [Pres ence] in Blood by Automated countOrdered By: Patrizia Melendrez on 03-20-2023 Nucleated RBC Auto Ql (Bld) 0.1 /100{WBC} 0-0.5 [facility] Platelet mean volume Auto (B ld) [Entitic vol]Ordered By: Patrizia Melendrez on 03-20-2023 Platelet mean volume (Bld) [Entitic vol] 8.0 fL 6.3-10.7 [facility] Platelets Auto (Bld) [#/Vol] Ordered By: Patrizia Melendrez on 03-20-2023 Platelets (Bld) [#/Vol] 232 10*3/uL 150-450 [facility] Potassium [Moles/volume] in Serum or PlasmaOrdered By: Patrizia Melendrez on 03-20-2023 Potassium [Moles/Vol] 4.3 mmol/L 3.5-5.1 [facility] Prothrombin time (PT)Ordered By: Patrizia Melendrez on 03-20-2023 PT Coag (PPP) [Time] 11.2 s 9.0-12.9 [facility] Comment on above: A hematocrit value g reater than 55% may lead to inaccurate results in coagulation testing. Patients having hematocrit values >55% require a special collection tube for coagulation studies. Please contact the laboratory at [phone] for redraw instructions. RBC Auto (Bld) [#/Vol]Ordere d By: Patrizia Melendrez on 03-20-2023 RBC (Bld) [#/Vol] 5.25 10*6/uL 3.60-5.00 [facility] Serum or plasma anion gap de terminationOrdered By: Patrizia Melendrez on 03-20-2023 Anion gap [Moles/Vol] 8.5 mmol/L 6.0-15.0 [facility] Serum or plasma high density lipoprotein (HDL) cholesterol measurementOrdered By: Patrizia Melendrez on 03-20-2023 Cholesterol in HDL [Mass/Vol] 45 mg/dL [facility] Comment on above: HDL CHOL ATP-III CLA SSIFICATION Cardiovascular RiskHDL > or equal to 60 mg/dL LOWHDL < 40 mg/dL HIGH Serum or plasma total choles terol/high density lipoprotein (HDL) cholesterol mass ratOrdered By: Patrizia Melendrez on 03-20-2023 Cholesterol.total/Chol esterol in HDL [Mass ratio] 6.0 {ratio} <5.0 [facility] Sodium [Moles/volume] in Ser um or PlasmaOrdered By: Patrizia Melendrez on 03-20-2023 Sodium [Moles/Vol] 138 mmol/L 136-145 [facility] Triglyceride [Mass/volume] i n Serum or PlasmaOrdered By: Patrizia Melendrez on 03-20-2023 Triglyceride [Mass/Vol] 277 mg/dL 0-149 [facility] Comment on above: TRIG ATP III CLASSIF ICATIONTRIG less than 150 mg/dL NormalTRIG 150-199 mg/dL Borderline highTRIG 200-500 mg/dL High TRIG greater than 500 mg/dL Very highStandard traceable to the Center for Disease Conrtrol and Prevention (CDC) test method. Urea nitrogen [Mass/volume] in Serum or PlasmaOrdered By: Patrizia Melendrez on 03-20-2023 Urea nitrogen [Mass/Vol] 21 mg/dL 01-15 [facility] WBC Auto (Bld) [#/Vol]Ordere d By: Patrizia Melendrez on 03-20-2023 WBC (Bld) [#/Vol] 7.3 10*3/uL 3.8-11.6 [facility] CREATININEon 10-01-2022 Creatinine [Mass/Vol] 0.73 mg/dL Normal 0.55-1.02 [facility] Comment on above: Performed By: #### C PRISCILLA ####[facility] [address] [place], [place] [address]Xv. Gonzalo Willis EGFR-AF MONTENEGRIN >60 Normal >=60 [facility] Comment on above: Performed By: #### C PRISCILLA ####[facility] [address] [place], [place] [address]Ir. Gonzalo Willis EGFR-NON AF MONTENEGRIN >60 Normal >=60 [facility] Comment on above: Performed By: #### C PRISCILLA ####[facility] [address] [place] [id number]. Gonzalo Willis CT NECK ST WO W [...] by: SHAWN GRAFF Date: 2022-10-01 09:51 Normal [facility] US THYROIDon 09-04-2022 US THYROID EXAMINATION: US [...] SHAWN GRAFF Date: 2022-09-04 16:52 Normal [facility] US CAROTID ART BILon 023 US [...] NISA EDWARDS Date: 2022-08-22 17:29 Normal [facility] Office Visit (Cardiology)on 07-19-2022 Follow-up visit [...] no s (more content not included)... Normal [employer] Tobacco Screening.on 023 Adult depression screening assessment No [facility] [employer] DO Work Phone: Fall risk assessment a) No falls within the last year [facility] [employer] DO Work Phone: Tobacco use status [facility]PH[facility] b) No [facility] [employer] [address] DO Work Phone: ECHOCARDIO M/2D COMPLETEon 1 07-29-2021 ECHOCARDIO M/2D COMPLETE Patient: ELIZABETH QUEZADA Exam Date: 05/28/2022 : 1960 Gender:F Ordering : DR NANO NGUYEN . Admission #: [id number] Family : Order #: [id number] CLICK HERE TO VIEW EXAM ECHOCARDIOGRAM REPORT [...] Kamara M.D. on 05/30/2022 at 11:06 Normal [facility] MAMM SCREEN 3D LOVE CADon 05-25-2022 MG MAMM SCREEN 3D LOVE CAD Patient: ELIZABETH QUEZADA Exam Date: 05/25/2022 : 1960 Gender:F Ordering : DR NANO NGUYEN . Admission #: [id number] Family : Order #: [id number] CLICK HERE TO VIEW EXAM RADIOLOGY REPORT [...] lung cancer at age 58. LOCATION: [facility] BREAST COMPOSITION: Almost entirely fatty. FINDINGS: [...] Edwards MD on 05/25/2022 at 09:51 Normal [facility] NM STRESS/REST MULTIon 05-22 NM STRESS/REST MULTI Patient: EMILY QUEZADA Exam Date: 05/22/2022 : 1960 Gender:F Ordering : DR NANO NGUYEN . Admission #: [id number] Family : Order #: [id number] CLICK HERE TO VIEW EXAM RADIOLOGY REPORT [...] Graff M.D. on 05/22/2022 at 15:[address] [facility] [address] LUNG CANCER SCREENINGon 1 07-11-2021 CT [...] NISA EDWARDS Date: 2022-05-11 15:25 Normal [facility] CBC AUTO DIFFon 05-10-2022 BASO # 0.0 103/ul Normal 0.0-0.1 [facility] Comment on above: Performed By: #### C BC ####[facility] [address] [place], [place] [address]Dr. Gonzalo Willis Basophils/100 WBC (Bld) 0.5 % Normal 0.2-2.0 [facility] Comment on above: Performed By: #### C BC ####[facility] [address] [place] [address]Dr. Gonzalo Willis EO # 0.2 103/ul Normal 0.0-0.7 [facility] Comment on above: Performed By: #### C BC ####[facility] [address] [place], [place] [address]Dr. Gonzalo Willis Eosinophils/100 WBC (Bld) 1.8 % Normal 0.9-7.0 [facility] Comment on above: Performed By: #### C BC ####[facility] [address] [place] [address]Dr. Gonzalo Willis Erythrocyte distribution width (RBC) [Ratio] 12.4 % Normal 11.0-15.0 [facility] Comment on above: Performed By: #### C BC ####[facility] [address] [place], [place] [address]Dr. Gonzalo Willis Hematocrit (Bld) [Volume fraction] 53.7 % Critically high 36.0-48.0 [facility] Comment on above: Performed By: #### C BC ####[facility] [address] [place], [place] [address]Dr. Gonzalo Willis Hemoglobin (Bld) [Mass/Vol] 18.4 g/dL Critically high 12.0-16.0 [facility] Comment on above: Performed By: #### C BC ####[facility] [address] [place], [place] [address]Dr. Gonzalo Willis IG # 0.04 10e3/ul Critically high 0.00-0.03 [facility] Comment on above: Performed By: #### C BC ####[facility] [address] [place], [place] [address]Dr. Gonzalo Willis IG % 0.5 % Normal 0.0-0.5 [facility] Comment on above: Performed By: #### C BC ####[facility] [address] [place], [place] [address]Dr. Gonzalo Willis LYMPH # 2.5 103/ul Normal 1.2-3.8 [facility] Comment on above: Performed By: #### C BC ####[facility] [address] [place], [place] [address]Dr. Gonzalo Willis Lymphocytes/100 WBC (Bld) 29.2 % Normal 20.5-60.0 [facility] Comment on above: Performed By: #### C BC ####[facility] [address] [place], [place] [address]Dr. Gonzalo Willis MANUAL DIFF REQ NO Normal [facility] Comment on above: Performed By: #### C BC ####[facility] [address] [place] [id number]. Gonzalo Willis MCH (RBC) [Entitic mass] 31.2 pg Normal 26.7-34.0 [facility] Comment on above: Performed By: #### C BC ####[facility] [address] [place] [id number]. Gonzalo Willis MCHC (RBC) [Mass/Vol] 34.3 g/dL Normal 29.9-35.2 [facility] Comment on above: Performed By: #### C BC ####[facility] [address] [place] [id number]. Gonzalo Willis MCV (RBC) [Entitic vol] 91.0 fL Normal 81.0-99.0 [facility] Comment on above: Performed By: #### C BC ####[facility] [address] [place], [place] [address]Dr. Gonzalo Lazaro MONO # 0.6 103/ul Normal 0.3-0.8 [facility] Comment on above: Performed By: #### C BC ####[facility] [address] [place], [place] [address]Dr. Chantellkaleb Willis Monocytes/100 WBC (Bld) 7.2 % Normal 1.7-12.0 [facility] Comment on above: Performed By: #### C BC ####[facility] [address] [place], [place] [address]Dr. Gonzalo Willis NEUT # 5.3 103/ul Normal 1.4-6.5 [facility] Comment on above: Performed By: #### C BC ####[facility] [address] [place], [place] [id number]. Chantellkaleb Willis Neutrophils/100 WBC (Bld) 60.8 % Normal 43.0-75.0 [facility] Comment on above: Performed By: #### C BC ####[facility] [address] [place], [place] [id number]. Gonzalo Willis Platelet mean volume (Bld) [Entitic vol] 9.5 fL Normal 9.5-13.5 [facility] Comment on above: Performed By: #### C BC ####[facility] [address] [place] [id number]. Gonzalo Willis PLT 265 103/ul Normal 150-450 [facility] Comment on above: Performed By: #### C BC ####[facility] [address] [place], [place] [address]Fs. Gonzalo Willis RBC 5.90 106/ul Critically high 4.20-5.40 [facility] Comment on above: Performed By: #### C BC ####[facility] [address] [place] [id number]. Gonzalo Willis WBC 8.7 103/ul Normal 4.0-11.0 [facility] Comment on above: Performed By: #### C BC ####[facility] [address] [place] [id number]. Gonzalo Willis FREE THYROXINE INDEX T7on FTI 2.74 Normal 1.30-4.50 [facility] Comment on above: Performed By: #### T 7, TSH, CMP, LIPID ####[facility] [address] [place] [id number]. Gonzalo Willis T3U 33.0 % Normal 30.0-39.0 [facility] Comment on above: Performed By: #### T 7, TSH, CMP, LIPID ####[facility] [address] [place] [id number]. Gonzalo Willis T4 [Mass/Vol] 8.30 ug/dL Normal 4.80-13.90 [facility] Comment on above: Performed By: #### T 7, TSH, CMP, LIPID ####[facility] [address] [place] [id number]. Gonzalo Willis GLYCOHEMOGLOBIN A1Con 2021 ADA RECOMMENDATION SEE BELOW Normal [facility] Comment on above: Result Comment: ADA RECOMMENDED LIMIT 4.0 - 6.0 ADA THERAPEUTIC TARGET < 7.0 ACTION SUGGESTED > 7.0 Performed By: #### A 1C ####[facility] [address] [place], [place] [address]Dr. Gonzalo Willis Glucose [Mass/Vol] 192 mg/dL Normal [facility] Comment on above: Performed By: #### A 1C ####[facility] [address] [place] [id number]. Gonzalo Willis HbA1c (Bld) [Mass fraction] 8.3 % Critically high 4.5-6.2 [facility] Comment on above: Performed By: #### A 1C ####[facility] [address] [place] [id number]. Gonzalo Willis IRONon 05-10-2022 Iron [Mass/Vol] 193.0 ug/dL Critically high 50.0-170.0 [facility] Comment on above: Performed By: #### I MATTHEW MONTELONGO, VITB12 ####[facility] [address] [place] [address]Dr. Gonzalo Willis LIPID PROFILEon 05-10-2022 CHOL-HDL RATIO NORM SEE BELOW Normal [facility] Comment on above: Result Comment: 3.3 - 4.4 LOW RISK 4.4 - 7.1 AVERAGE RISK 7.1 - 11.0 MODERATE RISK >11.0 HIGH RISK Performed By: #### T 7, TSH, CMP, LIPID #### [facility] [address] [place] [address] [address] Gonzalo Willis Cholesterol [Mass/Vol] 262 mg/dL Critically high <=200 [facility] Comment on above: Performed By: #### T 7, TSH, CMP, LIPID #### [facility] [address] [address] [address] Gonzalo Willis Cholesterol in HDL [Mass/Vol] 57 mg/dL Normal 40-60 [facility] Comment on above: Performed By: #### T 7, TSH, CMP, LIPID #### [facility] [id number] Gonzalo Willis Cholesterol in LDL [Mass/Vol] 177.4 mg/dL Normal [facility] Comment on above: Performed By: #### T 7, TSH, CMP, LIPID #### [facility] [id number] Gnozalo Willis Cholesterol.total/Chol esterol in HDL [Mass ratio] 4.6 {ratio} Normal [facility] Comment on above: Performed By: #### T 7, TSH, CMP, LIPID #### [facility] [address] [address] [address] Gonzalo Willis HDL NORMAL > or = 60 mg/dl - LO W CARDIOVASCULAR RISK <40 mg/dl - HIGH CARDIOVASCULAR RISK Normal [facility] Comment on above: Performed By: #### T 7, TSH, CMP, LIPID #### [facility] [address] [place] [address] Dr. Gonzalo Willis LDL CALC NORMAL SEE BELOW Normal [facility] Comment on above: Result Comment: <100 mg/dl OPTIMAL 100 - 129 mg/dl NEAR OR ABOVE OPTIMAL 130 - 159 mg/dl BORDERLINE HIGH 160 - 189 mg/dl HIGH >190 mg/dl VERY HIGH Performed By: #### T 7, TSH, CMP, LIPID #### [facility] [address] [place] [address] Dr. Gonzalo Willis Triglyceride [Mass/Vol] 138 mg/dL Normal <=150 [facility] Comment on above: Performed By: #### T 7, TSH, CMP, LIPID #### [facility] [address] [place] [address] Dr. Gonzalo Willis VLDL CALC 27.6 mg/dL Normal [facility] Comment on above: Performed By: #### T 7, TSH, CMP, LIPID #### [facility] [address] [place] [address] Dr. Gonzalo Willis PROF 14(COMP METB)on 022 Albumin [Mass/Vol] 4.3 g/dL Normal 3.4-5.0 [facility] Comment on above: Performed By: #### T 7, TSH, CMP, LIPID #### [facility] [address] [place] [address] Dr. Gonzalo Willis Albumin/Globulin [Mass ratio] 1.0 {ratio} Normal [facility] Comment on above: Performed By: #### T 7, TSH, CMP, LIPID #### [facility] [address] [place] [address] Dr. Gonzalo Willis ALP [Catalytic activity/Vol] 86 U/L Normal 46-116 [facility] Comment on above: Performed By: #### T 7, TSH, CMP, LIPID #### [facility] [address] [address] [address] Gonzalo Willis ALT [Catalytic activity/Vol] 20 U/L Normal 14-59 [facility] Comment on above: Performed By: #### T 7, TSH, CMP, LIPID #### [facility] [address] [address] [address] Gonzalo Willis Anion gap [Moles/Vol] 11.2 mmol/L Normal Th [facility] Comment on above: Performed By: #### T 7, TSH, CMP, LIPID #### [facility] [address] [place] [address] Dr. Gonzalo Willis AST [Catalytic activity/Vol] 9 U/L Critically low 15-37 [facility] Comment on above: Performed By: #### T 7, TSH, CMP, LIPID #### [facility] [address] [place] [address] Dr. Gonzalo Willis Bilirubin [Mass/Vol] 0.6 mg/dL Normal 0.2-1.0 [facility] Comment on above: Performed By: #### T 7, TSH, CMP, LIPID #### [facility] [address] [place] [address] Dr. Gonzalo Willis Calcium [Mass/Vol] 10.1 mg/dL Normal 8.5-10.1 [facility] Comment on above: Performed By: #### T 7, TSH, CMP, LIPID #### [facility] [address] [place] [address] Dr. Gonzalo Willis Chloride [Moles/Vol] 98 mmol/L Normal 98-107 [facility] Comment on above: Performed By: #### T 7, TSH, CMP, LIPID #### [facility] [address] [place] [address] Dr. Gonzalo Willis CO2 [Moles/Vol] 28.4 mmol/L Normal 21.0-32.0 [facility] Comment on above: Performed By: #### T 7, TSH, CMP, LIPID #### [facility] [address] [address] [address] Gonzalo Willis Creatinine [Mass/Vol] 0.72 mg/dL Normal 0.55-1.02 [facility] Comment on above: Performed By: #### T 7, TSH, CMP, LIPID #### [facility] [address] [address] [address] Gonzalo Willis EGFR-AF MONTENEGRIN >60 Normal >=60 [facility] Comment on above: Performed By: #### T 7, TSH, CMP, LIPID #### [facility] [address] [address] [address] Gonzalo Willis EGFR-NON AF MONTENEGRIN >60 Normal >=60 [facility] Comment on above: Performed By: #### T 7, TSH, CMP, LIPID #### [facility] [address] [place] [address] Dr. Gonzalo Willis Globulin (S) [Mass/Vol] 4.1 g/dL Normal [facility] Comment on above: Performed By: #### T 7, TSH, CMP, LIPID #### [facility] [address] [address] [address] Gonzalo Willis Glucose [Mass/Vol] 164 mg/dL Critically high 74-106 [facility] Comment on above: Performed By: #### T 7, TSH, CMP, LIPID #### [facility] [address] [address] [address] Gonzalo Willis Potassium [Moles/Vol] 4.6 mmol/L Normal 3.5-5.1 [facility] Comment on above: Performed By: #### T 7, TSH, CMP, LIPID #### [facility] [address] [address] [address] Gonzalo Willis Protein [Mass/Vol] 8.4 g/dL Critically high 6.4-8.2 [facility] Comment on above: Performed By: #### T 7, TSH, CMP, LIPID #### [facility] [address] [address] [address] Gonzalo Willis Sodium [Moles/Vol] 133 mmol/L Critically low 136-145 [facility] Comment on above: Performed By: #### T 7, TSH, CMP, LIPID #### [facility] [address] [address] [address] Gonzalo Willis Urea nitrogen [Mass/Vol] 20.0 mg/dL Critically high 7.0-18.0 [facility] Comment on above: Performed By: #### T 7, TSH, CMP, LIPID #### [facility] [address] [address] [address] Gonzalo Willis Urea nitrogen/Creatinine [Mass ratio] 27.8 mg/mg Normal [facility] Comment on above: Performed By: #### T 7, TSH, CMP, LIPID #### [facility] [address] [address] [address] Gonzalo Willis TSHon 05-10-2022 TSH 0.872 uIU/mL Normal 0.358-3.740 [facility] Comment on above: Performed By: #### T 7, TSH, CMP, LIPID ####[facility] [address] [place] [address]Dr. Gonzalo Willis VITAMIN B12on 05-10-2022 Cobalamin (Vitamin B12) [Mass/Vol] 526.0 pg/mL Normal 193.0-986.0 [facility] Comment on above: Performed By: #### I REGINALD, VITAD, VITB12 ####[facility] [address] [place] [address]DrMel Willis VITAMIN D 25 OHon 05-10-2022 VIT D 25-OH 67.4 ng/mL Normal [facility] Comment on above: Performed By: #### I REGINALD, VITAD, VITB12 ####[facility] [address] [place] [address]DrMel Willis VIT D RANGES SEE BELOW Normal [facility] Comment on above: Result Comment: <20 ng/mL Vit D deficient 20 - <30 ng/mL Vit D insufficient 30 - 100 ng/mL Vit D sufficient >100 ng/mL Potential Toxicity Performed By: #### I REGINALD, VITAD, VITB12 ####[facility] [address] [place], [place] [address]Dr. Gonzalo Willis Covid-19 PCR (CVDTB)on SARS-CoV-2 (COVID-19) RNA WALKER+probe Ql (Unsp spec) Not detected Normal NOT DETECTED [facility] Comment on above: Result Comment: When [...] for this test is supported by the [place] of Health and Human Service's declaration that [...] longer be used). Performed By: #### [facility] #### [facility] [address] [place], [place] [address] Dr. Gonzalo Willis Vital Signs Date Time Vital Sign Value Performing Clinician Facility 04-28-2024 10:51-0500 Diastolic blood pressure 75 mm[Hg] Papa Santiago MD Work Phone: [facility] 04-28-2024 10:51-0500 Heart rate 84 /min Papa Santiago MD Work Phone: [facility] 04-28-2024 10:51-0500 Systolic blood pressure 135 mm[Hg] Papa Santiago MD Work Phone: [facility] 01-28-2024 12:01-0400 Diastolic blood pressure 70 mm[Hg] Papa Santiago MD Work Phone: [facility] 01-28-2024 12:01-0400 Heart rate 83 /min Papa Santiago MD Work Phone: [facility] 01-28-2024 12:01-0400 Systolic blood pressure 147 mm[Hg] Papa Santiago MD Work Phone: [facility] 01-16-2024 11:51-0400 Body height 165.1 cm Shanice Larsen MD Work Phone: [facility] 01-16-2024 11:51-0400 Body mass index (BMI) [Ratio] 28.62 kg/m2 Shanice Larsen MD Work Phone: [facility] 01-16-2024 11:51-0400 Body weight 78.02 kg Shanice Larsen MD Work Phone: [facility] 01-16-2024 11:51-0400 Diastolic blood pressure 69 mm[Hg] Shanice Larsen MD Work Phone: [facility] 01-16-2024 11:51-0400 Heart rate 88 /min Shanice Larsen MD Work Phone: [facility] 01-16-2024 11:51-0400 SaO2% (BldA) [Mass fraction] 98 % Shanice Larsen MD Work Phone: [facility] 01-16-2024 11:51-0400 Systolic blood pressure 110 mm[Hg] Shanice Larsen MD Work Phone: [facility] 10-10-2023 12:40-0400 Body height 160 cm Shanice Larsen MD Work Phone: [facility] 10-10-2023 12:40-0400 Body weight 77.11 kg Shanice Larsen MD Work Phone: [facility] 10-10-2023 12:40-0400 Diastolic blood pressure 73 mm[Hg] Shanice Larsen MD Work Phone: [facility] 10-10-2023 12:40-0400 Heart rate 90 /min Shanice Larsen MD Work Phone: [facility] 10-10-2023 12:40-0400 Respiratory rate 16 /min Shanice Larsen MD Work Phone: [facility] 10-10-2023 12:40-0400 SaO2% (BldA) [Mass fraction] 97 % Shanice Larsen MD Work Phone: [facility] 10-10-2023 12:40-0400 Systolic blood pressure 127 mm[Hg] Shanice Larsen MD Work Phone: [facility] 08-07-2023 10:40-0500 Body height 162 cm Andegoni Sandalakis [employer] Work Phone: [facility] 08-07-2023 10:40-0500 Body temperature 98.01 [degF] Andegoni Sandalakis [employer] Work Phone: [facility] 08-07-2023 10:40-0500 Body weight 82.64 kg Andegoni Sandalakis [employer] Work Phone: [facility] 08-07-2023 10:40-0500 Diastolic blood pressure 70 mm[Hg] Andegoni Sandalakis [employer] Work Phone: [facility] 08-07-2023 10:40-0500 Heart rate 82 /min Andegoni Sandalakis [employer] Work Phone: [facility] 08-07-2023 10:40-0500 SaO2% (BldA) [Mass fraction] 97 % Andegoni Sandalakis [employer] Work Phone: [facility] 08-07-2023 10:40-0500 Systolic blood pressure 128 mm[Hg] Andegoni Sandalakis [employer] Work Phone: [facility] 07-30-2023 16:30-0500 SaO2% (BldA) [Mass fraction] 98 % NANO NGUYEN [facility] Comment on above: Order Comment: Specimen Type: ARTERIAL B LOOD SPECIMENOrdering Facility: [facility] Address: [address] [place] [address] Performed By: #### A LLBG ####[facility] [id number] [place] [id number] [place] 07-30-2023 13:11-0500 SaO2% (BldA) [Mass fraction] 98 % NANO HOY [facility] Comment on above: Order Comment: Specimen Type: ARTERIAL B LOOD SPECIMENOrdering Facility: [facility] Address: [address] [place], [place] [id number] Performed By: #### A LLBG ####[facility] [id number] [place] [id number] [place] 07-30-2023 10:56-0500 SaO2% (BldA) [Mass fraction] 96 % NANO HOY [facility] Comment on above: Order Comment: Specimen Type: ARTERIAL B LOOD SPECIMENOrdering Facility: [facility] Address: [address] [place] [address] Performed By: #### A LLBG ####[facility] [id number] [place] [id number] [place] 07-30-2023 08:10-0500 SaO2% (BldA) [Mass fraction] 97 % NANO HOY [facility] Comment on above: Order Comment: Specimen Type: ARTERIAL B LOOD SPECIMENOrdering Facility: [facility] Address: [address] [place], [place] [id number] Performed By: #### A LLBG ####[facility] [id number] [place] [id number] [place] 07-30-2023 06:05-0500 SaO2% (BldA) [Mass fraction] 97 % NANO HOY [facility] Comment on above: Order Comment: Specimen Type: ARTERIAL B LOOD SPECIMENOrdering Facility: [facility] Address: [address] [place] [address] Performed By: #### A LLBG ####[facility] LAB[facility] [id number] [address] [address] [facility] 07-30-2023 03:36-0500 SaO2% (BldA) [Mass fraction] 98 % NANO HOY [facility] Comment on above: Order Comment: Specimen Type: ARTERIAL B LOOD SPECIMENOrdering Facility: [facility] Address: [address] [place], [place] [id number] Performed By: #### A LLBG ####[facility] LABIA [id number] [place] [id number] [facility] 07-30-2023 01:31-0500 SaO2% (BldA) [Mass fraction] 98 % NANO HOY [facility] Comment on above: Order Comment: Specimen Type: ARTERIAL B LOOD SPECIMENOrdering Facility: [facility] Address: [address] [place] [address] Performed By: #### A LLBG ####[facility] LABIA [id number] [place] [id number] [place] 07-29-2023 23:17-0500 SaO2% (BldA) [Mass fraction] 98 % NANO HOY [facility] Comment on above: Order Comment: Specimen Type: ARTERIAL B LOOD SPECIMENOrdering Facility: [facility] Address: [address] [place], [place] [id number] Performed By: #### A LLBG ####[facility]CL[facility] [id number] [address] [address] [place] 07-29-2023 21:16-0500 SaO2% (BldA) [Mass fraction] 98 % NANO HOY [facility] Comment on above: Order Comment: Specimen Type: ARTERIAL B LOOD SPECIMENOrdering Facility: [facility] Address: [address] [place], [place] [id number] Performed By: #### A LLBG ####[facility] LABIA [id number] [place] [id number] [place] 07-29-2023 19:19-0500 SaO2% (BldA) [Mass fraction] 99 % NANO HOY [facility] Comment on above: Order Comment: Specimen Type: ARTERIAL B LOOD SPECIMENOrdering Facility: [facility] Address: [address] [place], [place] [id number] Performed By: #### A LLBG ####[facility] LABIA [id number] [place] [id number] [place] 07-29-2023 16:39-0500 SaO2% (BldA) [Mass fraction] 97 % NANO HOY [facility] Comment on above: Order Comment: Specimen Type: ARTERIAL B LOOD SPECIMENOrdering Facility: [facility] Address: [address] [place] [address] Performed By: #### A LLBG ####[facility] [id number] [place] [id number] [place] [facility] 07-29-2023 14:51-0500 SaO2% (BldA) [Mass fraction] 99 % NANO HOY [facility] Comment on above: Order Comment: Specimen Type: ARTERIAL B LOOD SPECIMENOrdering Facility: [facility] Address: [address] [place], [place] [id number] Performed By: #### A LLBG ####[facility] [id number] [place] [id number] [place] 07-29-2023 13:51-0500 SaO2% (BldA) [Mass fraction] 99 % NANO HOY [facility] Comment on above: Order Comment: Specimen Type: ARTERIAL B LOOD SPECIMENOrdering Facility: [facility] Address: [address] [place], [place] [id number] Performed By: #### A LLMG ####[facility] [id number] [place] [id number] [facility] 07-29-2023 13:19-0500 SaO2% (BldA) [Mass fraction] 99 % NANO HOY [facility] Comment on above: Order Comment: Specimen Type: ARTERIAL B LOOD SPECIMENOrdering Facility: [facility] Address: [address] [place], [place] [id number] Performed By: #### A LLBG ####[facility] LABCL[facility] [id number] [place] [id number] [place] 07-29-2023 12:23-0500 SaO2% (BldA) [Mass fraction] 100 % NANO HOY [facility] Comment on above: Order Comment: Specimen Type: ARTERIAL B LOOD SPECIMENOrdering Facility: [facility] Address: [address] [place], [place] [address] Performed By: #### A LLBG ####[facility] LABCL[facility] [id number] [place] [id number] [facility] 07-29-2023 11:28-0500 SaO2% (BldA) [Mass fraction] 100 % NNAO HOY [facility] Comment on above: Order Comment: Specimen Type: ARTERIAL B LOOD SPECIMENOrdering Facility: [facility] Address: [address] [place], [place] [id number] Performed By: #### A LLBG ####[facility] LABIA [id number] [place] [id number] [place] [facility] 07-29-2023 10:41-0500 SaO2% (BldA) [Mass fraction] 100 % NANO HOY [facility] Comment on above: Order Comment: Specimen Type: ARTERIAL B LOOD SPECIMENOrdering Facility: [facility] Address: [address] [place] [address] Performed By: #### A LLBG ####[facility] [id number] [place] [id number] [place] 07-29-2023 09:58-0500 SaO2% (BldA) [Mass fraction] 98 % NANO HOY [facility] Comment on above: Order Comment: Specimen Type: ARTERIAL B LOOD SPECIMENOrdering Facility: [facility] Address: [address] [place] [address] Performed By: #### A LLBG ####[facility] LABCL[facility] [id number] [place] [id number] [place] [facility] 07-29-2023 09:43-0500 SaO2% (BldA) [Mass fraction] 99 % NANO HOY [facility] Comment on above: Order Comment: Specimen Type: ARTERIAL B LOOD SPECIMENOrdering Facility: [facility] Address: [address] [place] [address] Performed By: #### A LLBG ####[facility] LABCLIA [id number] [place] [id number] [place] 07-29-2023 07:09-0500 SaO2% (BldA) [Mass fraction] 99 % NANO NGUYEN [facility] Comment on above: Order Comment: Specimen Type: ARTERIAL B LOOD SPECIMENOrdering Facility: [facility] Address: [address] [place] [address] Performed By: #### A LLBG ####[facility] LABCLIA [id number] [place] [id number] [place] 05-28-2023 13:50-0500 Body height 165.1 cm Shanice Larsen MD Work Phone: [facility] 05-28-2023 13:50-0500 Body weight 78.93 kg Shanice Larsen MD Work Phone: [facility] 05-28-2023 13:50-0500 Diastolic blood pressure 59 mm[Hg] Shanice Larsen MD Work Phone: [facility] 05-28-2023 13:50-0500 Heart rate 82 /min Shanice Larsen MD Work Phone: [facility] 05-28-2023 13:50-0500 Respiratory rate 16 /min Shanice Larsen MD Work Phone: [facility] 05-28-2023 13:50-0500 SaO2% (BldA) [Mass fraction] 97 % Shanice Larsen MD Work Phone: [facility] 05-28-2023 13:50-0500 Systolic blood pressure 109 mm[Hg] Shanice Larsen MD Work Phone: [facility] 04-03-2023 09:16-0400 Diastolic blood pressure 116 mm[Hg] Shanice Larsen MD Work Phone: [facility] 04-03-2023 09:16-0400 Heart rate 101 /min Shanice Larsen MD Work Phone: [facility] 04-03-2023 09:16-0400 Systolic blood pressure 200 mm[Hg] Shanice Larsen MD Work Phone: [facility] 03-26-2023 17:15-0400 Diastolic blood pressure 64 mm[Hg] MD Nano Nguyen Work Phone: [facility] 03-26-2023 17:15-0400 Heart rate 69 /min MD Nano Nguyen Work Phone: [facility] 03-26-2023 17:15-0400 Respiratory rate 20 /min MD Nano Nguyen Work Phone: [facility] 03-26-2023 17:15-0400 SaO2% (BldA) [Mass fraction] 99 % MD Nano Nguyen Work Phone: [facility] 03-26-2023 17:15-0400 Systolic blood pressure 143 mm[Hg] MD Nano Nguyen Work Phone: [facility] 03-26-2023 13:02-0400 Body height 165.1 cm MD Nano Nguyen Work Phone: [facility] 03-26-2023 13:02-0400 Body temperature 97.7 [degF] MD Nano Nguyen Work Phone: [facility] 03-26-2023 13:02-0400 Body weight 84.5 kg MD Nano Nguyen Work Phone: [facility] 03-20-2023 13:00-0400 Body height 165.1 cm Patrizia Arevalooroge Other [facility] [employer] Other 03-20-2023 13:00-0400 Body mass index (BMI) [Ratio] 31.31 kg/m2 Patrizia Parvin Other [employer] Other 03-20-2023 13:00-0400 Body weight 85.37 kg Patrizia Arevalooroge Other [employer] Other 03-20-2023 13:00-0400 Diastolic blood pressure 82 mm[Hg] Patrizia Arevalooroge Other [employer] Other 03-20-2023 13:00-0400 SaO2% (BldA) [Mass fraction] 94 % Patrizia Parvin Other [employer] Other 03-20-2023 13:00-0400 Systolic blood pressure 124 mm[Hg] Patrizia Arevalooroge Other [employer] Other 07-19-2022 13:16-0500 Body height 165.1 cm Nano M Hoy Work Phone: [facility] [employer] 250 DO Work Phone: 07-19-2022 13:16-0500 Body mass index (BMI) [Ratio] 31.95 kg/m2 Nano M Hoy Work Phone: [facility] 250 DO Work Phone: 07-19-2022 13:16-0500 Body surface area Derived from formula 1.94 m2 Nano M Hoy Work Phone: [facility] 250 DO Work Phone: 07-19-2022 13:16-0500 Body weight 87.09 kg Nano M Hoy Work Phone: [facility] 250 DO Work Phone: 07-19-2022 13:16-0500 Diastolic blood pressure 64 mm[Hg] Nano M Hoy Work Phone: [facility] 250 DO Work Phone: 07-19-2022 13:16-0500 Diastolic blood pressure 70 mm[Hg] Nano M Hoy Work Phone: [facility] 250 DO Work Phone: 07-19-2022 13:16-0500 Heart rate 85 /min Nano M Hoy Work Phone: [facility] 250 DO Work Phone: 07-19-2022 13:16-0500 Systolic blood pressure 110 mm[Hg] Nano M Hoy Work Phone: [facility] 250 DO Work Phone: 07-19-2022 13:16-0500 Systolic blood pressure 100 mm[Hg] Nano M Hoy Work Phone: [facility] 250 DO Work Phone: Encounters Encounter Date [...] malunion (Primary Dx); 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) Start: [...] above: Results Start: 02-18-2024 End: 02-18-2024 ambulatory [facility] Facility:[facility] Start: 02-18-2024 End: 02-18-2024 Subsequent hospital visit by physician Ct 2 Main Qb (I-Stat) Radiology Comment on above: Coronary artery dise 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 (HCC) [I25.118] [...] (Primary Dx) Start: 01-28-2024 End: 01-28-2024 ambulatory [facility] Facility:[facility] Start: 01-16-2024 End: 01-16-2024 Patient encounter procedure Shanice Larsen MD Work Phone: Cardiology Comment on above: Coronary artery dise 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 (HCC) (Primary Dx); PAD (peripheral artery disease) (HCC); Primary hypertension; Hyperlipidemia, unspecified hyperlipidemia type Start: 01-16-2024 End: 01-16-2024 ambulatory NANO NGUYEN Facility:[facility] Start: 01-03-2024 Orders Only Papa Santiago MD Work Phone: Vascular Surg Dept Comment on above: 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, bilateral legs (HCC) (Primary Dx) Start: 01-01-2024 Telephone encounter Nano Nguyen MD Work Phone: [address] [place] [address] Comment on above: Appointment Start: 12-30-2023 End: [...] encounter Shanta comer RN Work Phone: [facility] Home Delivery Comment on above: Insurance Authorizat ion ([employer] 140MG/ML auto-injectors/) Start: 10-17-2023 Telephone encounter Shanice Hallman MD Work Phone: Cardiology Comment on above: Received Outside Med ical Records (EDGAR ECHO REPORT) Received Outside Med ical Records (CD IMAGES [facility]) Start: 10-10-2023 End: 10-10-2023 Patient encounter procedure Shanice Larsen MD Work Phone: Cardiology Comment on above: Coronary artery dise 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 (HCC) (Primary Dx); SOB (shortness of breath); PAD (peripheral artery disease) (HCC); TIA (transient ischemic attack) Start: 10-10-2023 End: 10-10-2023 ambulatory NANO NGUYEN Facility:[facility] Start: 10-10-2023 End: 10-10-2023 Subsequent hospital visit by physician Ct 2 Main Qb (I-Stat) Radiology Comment on above: Lung nodule [R91.1] Start: 09-27-2023 ambulatory [facility] Start: 09-26-2023 End: 09-28-2023 Emergency department patient visit [facility] Start: 09-23-2023 Telephone encounter Papa Perez i, MD Work Phone: Vascular Surg Dept Comment on above: dental clearance Start: 09-12-2023 E-mail encounter jose titus caregiver Daljit Pina [employer] Work Phone: [facility] Start: 09-12-2023 Follow-up encounter Daljit Whitney er [employer] Work Phone: Radiology Comment on above: Actionable Findings Follow-up Start: 09-03-2023 ambulatory Anna Perea RN [facility] Comment on above: Coronary artery dise ase involving chicken ranch coronary artery of chicken ranch heart without angina pectoris (Primary Dx) Start: 08-23-2023 Telephone encounter Nano Nguyen MD Work Phone: NOC Comment on above: Appointment Start: 08-13-2023 E-mail encounter 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); PVD (peripheral vascular disease) (HCC) Start: 08-07-2023 End: 08-07-2023 ambulatory NANO NGUYEN Facility:[facility] Start: 08-07-2023 End: 08-07-2023 Subsequent hospital [...] Evaluation and management of inpatient NANO NGUYEN Facility:[facility] Start: 07-22-2023 Patient encounter status Alma Rosa Suarez MD Work Phone: [facility] Start: 07-17-2023 End: 07-17-2023 ambulatory NANO NGUYEN Facility:[facility] Start: 07-17-2023 End: 07-17-2023 ambulatory WILLEM SUAREZ Facility:[facility] Start: 07-08-2023 End: 07-08-2023 ambulatory GLORIA CALLAHAN Facility:[facility] Start: 07-02-2023 End: 07-02-2023 ambulatory FRANTZ PEREZ Facility:[facility] Start: 07-02-2023 End: 07-02-2023 ambulatory WILLEM SUAREZ Facility:[facility] Start: 07-02-2023 End: 07-02-2023 ambulatory PAPA SANTIAGO Facility:[facility] Start: 06-14-2023 End: 06-14-2023 ambulatory WILLEM SUAREZ Facility:[facility] Start: 05-30-2023 Telephone encounter Willem marrufo MD Work Phone: Cardiothoracic Comment on above: Insurance Authorizat ion Referral Information ; New Patient Evaluation Start: 05-28-2023 End: 05-28-2023 ambulatory SHANICE LARSEN Facility:[facility] Start: 05-28-2023 End: 05-28-2023 Patient encounter procedure Shanice Larsen MD Work Phone: Cardiology Comment on above: SOB (shortness of br eath) (Primary Dx); 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; PAD (peripheral artery disease) (HCC) Start: 05-28-2023 End: 05-28-2023 ambulatory SHANICE LARSEN Facility:[facility] Start: 05-13-2023 End: 05-13-2023 ambulatory Shanice Larsen MD Work Phone: Cardiology Comment on above: Coronary artery dise ase involving chicken ranch coronary artery of chicken ranch heart without angina pectoris (Primary Dx); Preop cardiovascular exam; Morbid obesity (HCC) Start: 05-13-2023 End: 05-13-2023 Patient encounter status Shanice Larsen MD Work Phone: [facility] Work Phone: Start: 05-13-2023 End: 05-13-2023 Telemedicine consultation with patient Shanice Larsen MD Work Phone: [facility] Start: 04-26-2023 Orders Only Shanice Hinton i, MD Work Phone: Cardiology Comment on above: Coronary artery dise ase involving chicken ranch coronary artery without angina pectoris, unspecified whether chicken ranch or transplanted heart (Primary Dx) Start: 04-08-2023 Orders Only Pamela Laws APRN.CNP Work Phone: Cardiology Comment on above: Abnormal stress test (Primary Dx) Start: 04-03-2023 End: 04-03-2023 Patient encounter procedure Shanice Larsen MD Work Phone: Cardiology Comment on above: Abnormal stress test (Primary Dx) Start: 03-26-2023 End: 03-26-2023 ambulatory Patrizia Melendrez Facility:[facility] Start: 03-26-2023 Telephone encounter Patrizia HOFF G Cardiology Start: 03-26-2023 End: 03-26-2023 Admission to same day surgery center MD Nano Nguyen Work Phone: [facility] Manager Work Phone: Start: 03-26-2023 End: 03-26-2023 ambulatory MD Nano Nguyen Work Phone: [facility] Work Phone: Start: 03-25-2023 End: 03-25-2023 ambulatory Patrizia Melendrez Other [employer] Other Start: 03-25-2023 Telephone encounter Patrizia HOFF G Cardiology Start: 03-20-2023 End: 03-20-2023 ambulatory Patrizia Melendrez Facility:[facility] Start: 03-20-2023 End: 03-20-2023 Patient encounter procedure MD Nano Nguyen Work Phone: [facility]-Pre-Surgical Testing Work Phone: Start: 03-20-2023 End: 03-20-2023 ambulatory MD Nano Nguyen Work Phone: [facility] Work Phone: Start: 03-20-2023 Office outpatient ne w 45 minutes Patrizia Melendrez [facility] Start: 03-13-2023 Message Nano Nguyen Work Phone: [facility] 250 DO Work Phone: Start: 11-28-2022 Message Nano Nguyen Work Phone: [facility] 600 DO Work Phone: Start: 10-01-2022 End: 10-02-[address] NANO NGUYEN . Facility:[facility] Start: 09-04-2022 End: 09-05-[address] NANO NGUYEN . Facility:[facility] Start: 08-22-2022 End: 08-23-[address] STEPAN SAM Facility:[facility] Start: 07-19-2022 Office consultation new/estab patient 60 min Nano Nguyen Work Phone: [facility] 250 DO Work Phone: Start: 07-19-2022 ambulatory Nano Nguyen Fac ility: Start: 07-02-2022 End: 07-03-[address] NANO NGUYEN . Facility:[facility] Start: 05-30-2022 End: 05-31-[address] NANO NGUYEN . Facility:[facility] Start: 05-29-2022 Encounter for genera l adult medical examination without abnormal findings ANNA IRBY [facility] Start: 05-28-2022 End: 05-29-[address] NANO [...] 01-29-2022 ambulatory JOE HUBBARD Facility:[facility] Nano Nguyen Work Phone: [facility] 250 DO Work Phone: Procedures Date Procedure Procedure Detail Performing Clinician Start: 08-07-2023 Radiologic exam ches t 2 views Willem Suarez MD Work Phone: Start: 07-17-2023 Antibody screen NANO NGUYEN Comment on above: Order Comment: Speci men Type: BLOOD SPECIMENOrdering Facility: [facility] Address: [address] [place] [address] Performed By: #### T [id number] ####CC MAIN BLOOD BANKCLIA [id number] [facility] [id number] [address] [place] Start: 05-28-2023 Echocardiography [...] CABG (coronary artery bypass graft) Anddillon Cruz APRN.[employer] Work Phone: Ligation of fallopian tube D ouglas Sara Nguyen Work Phone: Release of trigger finger Do ugcarlos enrique Nguyen Work Phone: Tonsillectomy and adenoidectomy Nano Nguyen Work Phone: Plan of Treatment Date Care Activity Detail Author Start: 05-28-2028 Lipid 1996 panel - S radha or Plasma Lipid Screening [facility] Start: 05-28-2026 Diabetes Screening Diabetes Screenin g [facility] Start: 04-03-2026 Diabetes Screening Diabetes Screenin g [facility] Start: 02-17-2025 Screening for malign ant neoplasm of lung Lung Cancer Screening [facility] Start: 01-15-2025 BP Controlled (<130/80) BP Controlle d (<130/80) [facility] Start: 10-09-2024 BP Controlled (<130/80) BP Controlle d (<130/80) [facility] Start: 10-09-2024 Screening for malign ant neoplasm of lung Lung Cancer Screening [facility] Start: 08-07-2024 BP Controlled (<130/80) BP Controlle d (<130/80) [facility] Start: 07-31-2024 End: 07-31-2024 Patient encounter procedure Vascular Surgery Comment on above: DEYANIRA CTA A/P w/ Runoff 3M FOLLOW UP W/ CTA A/P W/ RUNOFF, DEYANIRA Start: 07-02-2024 BP Controlled (<130/80) BP Controlle d (<130/80) [facility] Start: 05-28-2024 Hepatitis B surface antibody level LDL Cholesterol [facility] Start: 04-28-2024 End: 04-28-2024 Patient encounter procedure 04/28/2024 10:30 AM EST Office Visit Vascular Surg Dept [address] [phone] Papa Santiago MD [address] [phone] 3 month follow-up no testing Vascular Surg Dept Comment on above: 3 month follow-up no testing Start: 04-16-2024 End: 04-16-2024 Patient encounter procedure Radiology Comment on above: Lung nodule Lung nodule/6 MONTH FU/Staff Message Start: 04-07-2024 End: 04-07-2024 ambulatory 04/07/2024 8:30 AM EDT [facility] [address] [phone] Shanice Larsen MD [address] [place] [address] dx: 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 Cardiology Comment on above: dx: 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 Radiology Comment on above: Coronary artery dise ase of chicken ranch artery of chicken ranch heart with stable angina pect... 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 Cardiology Comment on above: Coronary artery dise ase of chicken ranch artery of chicken ranch heart with stable angina pect... Start: 01-16-2024 End: 01-16-2024 ambulatory 01/16/2024 10:45 AM EDT Results Only Cardiology [address] [phone] Coronary artery disease of chicken ranch artery of chicken ranch heart with stable angina pect... Cardiology Comment on above: Coronary artery dise ase of chicken ranch artery of chicken ranch heart with stable angina pect... Start: 01-15-2024 Hemoglobin A1c measurement HbA1C [facility] Start: 10-21-2023 End: 10-21-2023 Follow-up encounter 10/21/2023 3:30 PM EDT [facility] Pulmonary Medicine [address] [place] [address] Gloria Callahan MD [address] [place] [address] 3 Month Follow up Pulmonary Medicine Comment on above: 3 Month Follow up Start: 08-01-2023 End: 10-31-2023 CBC panel - Blood by Automated count CBC Lab Routine Surgery follow-up Expected: 08/01/2023, Expires: 10/31/2023 [facility] Work Phone: Comment on above: Expected: 08/01/2023 , Expires: 10/31/2023 Start: 08-01-2023 End: 10-31-2023 Comprehensive metabolic 2000 panel - Serum or Plasma COMP METABOLIC PANEL Lab Routine Surgery follow-up Expected: 08/01/2023, Expires: 10/31/2023 [facility] Work Phone: Comment on above: Expected: 08/01/2023 , Expires: 10/31/2023 Start: 06-24-2023 Advance Directive Discussion Advance Directive Discussion [facility] Start: 03-26-2023 End: 03-26-2023 [facility] Start: 02-22-2023 Covid-19 Vaccine ( season) Covid-19 Vaccine () [facility] Start: 02-22-2023 Influenza vaccination Influenza Vacc ine (#1) [facility] Start: 2023 Advance Directive Discussion Advance Directive Discussion [facility] Start: 2023 Bone Density Screening Bone Density Screening [facility] Start: 2023 Screening for osteoporosis Bone Density Screening [facility] Start: 06-24-2022 Depression Assessment Depression Ass essment [facility] Start: 2018 RSV Vaccine (1 - 1-d ose 60+ series) RSV Vaccine (1 - 1-dose 60+ series) [facility] Start: 01-24-2008 Influenza vaccination Lung Cancer [facility] Start: 01-24-2008 Screening for malign ant neoplasm of lung Lung Cancer Screening [facility] Start: 01-24-2008 Shingrix Vaccine (1 of 2) Hernandez grix Vaccine (1 of 2) [facility] Start: 2003 Cologuard (FIT-DNA) Cologuard (FIT-D NA) [facility] Start: 2003 Colonoscopy Colonoscopy [facility] Start: 2003 Colorectal Cancer Screening Colorectal Cancer Screening [facility] Start: [address] COLONOGRAPHY [facility] Start: 2003 Fecal Occult Blood Fecal Occult Bloo d [facility] Start: 2003 Lipid 1996 panel - S radha or Plasma Lipid Screening [facility] Start: 2003 Screening for malign ant neoplasm of colon [facility] Start: 2003 SIGMOIDOSCOPY SIGMOIDOSCOPY [facility] Start: [address] [facility] Start: 1998 Screening for malign ant neoplasm of breast Mammogram Screening [facility] Start: 1977 Urine microalbumin profile DTaP,Tdap,Td Vaccine (1 - Tdap) [facility] Start: 01-24-1976 Annual PCP Team [employer] carl Disease Visit Annual PCP Team Chronic Disease Visit [facility] Start: 01-24-1976 BP Controlled (<130/80) BP Controlle d (<130/80) [facility] Start: 01-24-1976 Hepatitis C Screening Hepatitis C [facility] Start: 01-24-1976 HIV Screening HIV Screening [facility] Start: 01-24-1968 Diabetic foot examination Diabetic F oot Exam [facility] Start: 01-24-1968 Glaucoma screening Dilated Retinal E xam [facility] Start: 01-24-1968 Hepatitis B screening Urine Al bumin:Creatinine Ratio [facility] Start: 01-24-1964 Pneumococcal Vaccine : 65+ (1 - PCV) Pneumococcal Vaccine: 65+ (1 - PCV) [facility] CARD[place]AC [place] Routine 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 Ordered: 09/03/2023 [facility] Work Phone: Comment on above: Ordered: 09/03/2023 CARDIAC REHAB II OUT PT ([place], [place]) CARDIAC REHAB II [place] BIC Routine 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) SOB (shortness of breath) PAD (peripheral artery disease) ([facility]) TIA (transient ischemic attack) Ordered: 10/10/2023 [facility] Work Phone: Comment on above: Ordered: 10/10/2023 CT Chest WO contrast CT CHEST WO IVCON Radiology Routine Lung nodule 10/10/2023 10:41 AM EDT [facility] Work Phone: End: 11-19-2024 CT Chest WO contrast CT CHEST WO IVCON Radiology Routine Lung nodule 1 Occurrences starting 10/21/2023 until 11/19/2024 [facility] Work Phone: Comment on above: 1 Occurrences starti ng 10/21/2023 until 11/19/2024 End: 02-14-2025 CT Chest WO contrast CT CHEST WO IVCON Radiology Routine 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) PAD (peripheral artery disease) (HCC) Primary hypertension Hyperlipidemia, unspecified hyperlipidemia type 1 Occurrences starting 01/16/2024 until 02/14/2025 [facility] Comment on above: 1 Occurrences starti ng 01/16/2024 until 02/14/2025 CT Chest WO contrast CT CHEST WO IVCON Radiology Routine 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) PAD (peripheral artery disease) (HCC) Primary hypertension Hyperlipidemia, unspecified hyperlipidemia type 02/18/2024 2:09 PM EDT [facility] Work Phone: End: 07-02-2024 Ct thorax w/o contrast material CT CHEST CARDIAC WO IVCON Radiology Routine 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) PAD (peripheral artery disease) (HCC) S/P insertion of iliac artery stent Current smoker Primary hypertension Coronary angioplasty status 1 Occurrences starting 06/03/2023 until 07/02/2024 [facility] Work Phone: Comment on above: 1 Occurrences starti ng 06/03/2023 until 07/02/2024 End: 05-28-2025 CTA Abdominal, Pelvis and Lower extremity vessels W contrast IV CTA ABD/PEL LOWER EXTREM WO/W IVCON Radiology Routine Peripheral vascular disease (HCC) Diminished pulses in lower extremity PAD (peripheral artery disease) (HCC) 1 Occurrences starting 04/28/2024 until 05/28/2025 [facility] Comment on above: 1 Occurrences starti ng 04/28/2024 until 05/28/2025 End: 04-08-2024 ECG COMPLETE ECG COMPLETE ECG Routine Abnormal stress test 1 Occurrences starting 04/08/2023 until 04/08/2024 [facility] Work Phone: Comment on above: 1 Occurrences starti ng 04/08/2023 until 04/08/2024 End: 08-01-2024 ECG COMPLETE ECG COMPLETE ECG Routine Surgery follow-up 1 Occurrences starting 08/01/2023 until 08/01/2024 [facility] Work Phone: Comment on above: 1 Occurrences starti ng 08/01/2023 until 08/01/2024 End: 10-09-2024 ECG COMPLETE ECG COMPLETE ECG Routine 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) SOB (shortness of breath) PAD (peripheral artery disease) (HCC) TIA (transient ischemic attack) 1 Occurrences starting 10/10/2023 until 10/09/2024 [facility] Work Phone: Comment on above: 1 Occurrences starti ng 10/10/2023 until 10/09/2024 End: 01-15-2025 ECG COMPLETE ECG COMPLETE ECG Routine 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) PAD (peripheral artery disease) (HCC) Primary hypertension Hyperlipidemia, unspecified hyperlipidemia type 1 Occurrences starting 01/16/2024 until 01/15/2025 [facility] Comment on above: 1 Occurrences starti ng 01/16/2024 until 01/15/2025 End: 04-08-2025 ECG COMPLETE ECG COMPLETE ECG Routine 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) 1 Occurrences starting 04/08/2024 until 04/08/2025 [facility] Work Phone: Comment on above: 1 Occurrences starti ng 04/08/2024 until 04/08/2025 End: 04-03-2024 Echocardiography ECHO Cardiology Routine Abnormal stress test 1 Occurrences starting 04/03/2023 until 04/03/2024 [facility] Work Phone: Comment on above: 1 Occurrences starti ng 04/03/2023 until 04/03/2024 End: 07-02-2024 LUNG DIFFUSION CAPACITY (DLCO) LUNG DIFFUSION CAPACITY (DLCO) PFT Routine 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) PAD (peripheral artery disease) ([facility]) S/P insertion of iliac artery stent Current smoker Primary hypertension Coronary angioplasty status 1 Occurrences starting 06/03/2023 until 07/02/2024 [facility] Work Phone: Comment on above: 1 Occurrences starti ng 06/03/2023 until 07/02/2024 End: 07-02-2024 SPIROMETRY BASELINE ONLY SPIROMETRY BASELINE ONLY PFT Routine 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) PAD (peripheral artery disease) ([facility]) S/P insertion of iliac artery stent Current smoker Primary hypertension Coronary angioplasty status 1 Occurrences starting 06/03/2023 until 07/02/2024 [facility] Work Phone: Comment on above: 1 Occurrences starti ng 06/03/2023 until 07/02/2024 End: 06-03-2024 US CAROTID ARTERIES [facility] US CAROTID [facility]ERIES [facility] Vascular Lab Routine 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) PAD (peripheral artery disease) ([facility]) S/P insertion of iliac artery stent Current smoker Primary hypertension Coronary angioplasty status 1 Occurrences starting 06/03/2023 until 06/03/2024 [facility] Work Phone: Comment on above: 1 Occurrences starti ng 06/03/2023 until 06/03/2024 End: 06-03-2024 US LEG VEIN MAP [facility] US LEG VEIN MAP [facility] Vascular Lab Routine Coronary artery disease involving chicken ranch coronary artery of chicken ranch heart with angina pectoris ([facility]) PAD (peripheral artery disease) ([facility]) S/P insertion of iliac artery stent Current smoker Primary hypertension Coronary angioplasty status 1 Occurrences starting 06/03/2023 until 06/03/2024 [facility] Work Phone: Comment on above: 1 Occurrences starti ng 06/03/2023 until 06/03/2024 End: 01-02-2025 US Lower extremity artery - bilateral PVR LEG [facility] Vascular Lab Routine 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, bilateral legs ([facility]) 1 Occurrences starting 01/03/2024 until 01/02/2025 [facility] Work Phone: Comment on above: 1 Occurrences starti ng 01/03/2024 until 01/02/2025 End: 06-03-2024 US MAMMARY ARTERY [facility] US MAMMARY ARTERY [facility] Vascular Lab Routine 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) PAD (peripheral artery disease) ([facility]) S/P insertion of iliac artery stent Current smoker Primary hypertension Coronary angioplasty status 1 Occurrences starting 06/03/2023 until 06/03/2024 [facility] Work Phone: Comment on above: 1 Occurrences starti ng 06/03/2023 until 06/03/2024 End: 06-03-2024 US RADIAL ARTERY MAP [facility] US RADIAL ARTERY MAP [facility] Vascular Lab Routine 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) PAD (peripheral artery disease) ([facility]) S/P insertion of iliac artery stent Current smoker Primary hypertension Coronary angioplasty status 1 Occurrences starting 06/03/2023 until 06/03/2024 [facility] Work Phone: Comment on above: 1 Occurrences starti ng 06/03/2023 until 06/03/2024 End: 04-28-2025 US.doppler Extremity arteries - bilateral for physiologic artery study PVR ANK PRESS [facility] Vascular Lab Routine Peripheral vascular disease ([facility]) Diminished pulses in lower extremity PAD (peripheral artery disease) ([facility]) 1 Occurrences starting 04/28/2024 until 04/28/2025 [facility] Work Phone: Comment on above: 1 Occurrences starti ng 04/28/2024 until 04/28/2025 End: 08-30-2024 XR Chest 2 Views XR CHEST 2V FRONTAL/LAT Radiology Routine Surgery follow-up 1 Occurrences starting 08/01/2023 until 08/30/2024 [facility] Work Phone: Comment on above: 1 Occurrences starti ng 08/01/2023 until 08/30/2024 [facility] Immunizations Immunization Date Immunization Notes Care Provider Berta espino 05-29-2023 influenza virus vacc ine, unspecified formulation Nano Nguyen MD Work Phone: [facility] 04-10-2022 influenza, injectabl e, quadrivalent, contains preservative Nano Nguyen Work Phone: [facility] 250 DO Work Phone: 04-10-2022 influenza virus vacc ine, unspecified formulation Shanice Larsen MD Work Phone: [facility] 05-24-2021 [place] COVID-19 Vac cine 0.5 ML Intramuscular Suspension Nano Nguyen Work Phone: [facility] 11-11-2020 [place] COVID-19 Vac cine 0.5 ML Intramuscular Suspension Nano Nguyen Work Phone: [facility] 08-13-2020 zoster vaccine recombinant [facility] Work Phone: 06-11-2020 zoster vaccine recombinant Nano M Wendy Work Phone: [facility] 250 DO Work Phone: Payers Date Payer Category Payer Unknown [id number] 2023 Medicaid [place] [id number] 2023-Present [phone] [address] [place] [address] Medicaid [id number] 2023 Private Health Insurance [id number] 2023 Self-pay 2023 Medicare [id number] 2023 Medicare [id number] 1959 Unknown [id number] 1960 Unknown [id number] 2.16.840.1.219778.3.579.2. 356 1960 Unknown [id number] 2.16.840.1.297694.3.579.2. 593 1958 Unknown [id number] 2.16.840.1.956291.3.579.2. 593 1958 Unknown [id number] 2.16.840.1.439201.3.579.2. 593 1958 Unknown [id number] 2.16.840.1.520615.3.579.2. 593 1958 Unknown [id number] 2.16.840.1.042040.3.579.2. 593 1958 Unknown [id number] 2.16.840.1.892553.3.579.2. 593 1958 Unknown [id number] 2.16.840.1.605547.3.579.2. 593 1958 Unknown [id number] 2.16.840.1.949045.3.579.2. 593 1958 Unknown [id number] 2.16.840.1.641188.3.579.2. 593 1958 Unknown [id number] 2.16.840.1.619936.3.579.2. 593 1958 Unknown [id number] 2.16.840.1.834662.3.579.2. 593 1958 Unknown [id number] 2.16.840.1.991853.3.579.2. 593 1958 Unknown [id number] 2.16.840.1.552798.3.579.2. 593 1958 Unknown [id number] 2.16.840.1.436551.3.579.2. 1286 1958 Unknown [id number] 2.16.840.1.219446.3.579.2. 1286 1958 Unknown [id number] 2.16.840.1.885504.3.579.2. 1286 1958 Unknown [id number] 2.16.840.1.991767.3.579.2. 1286 1958 Unknown [id number] 2.16.840.1.861624.3.579.2. 1259 Private Health Insurance [id number] Unknown [facility] [employer] Unknown [id number] 2.16.840.1.934492.3.579.2. 531 Unknown [id number] 2.16.840.1.151510.3.579.2. 531 Social History Date Type Detail Facility Start: 04-03-2023 End: 01-28-2024 Social alcohol use Social alcohol use -[facility] 250 DO Work Phone: Comment on above: gummies, and pot; Start: 03-20-2023 End: 03-26-2023 Tobacco smoking status NHIS Smoker (finding) [facility] Start: 1960 Sex Assigned At Female F [facility] Start: 04-03-2023 End: 01-28-[address] [facility] MVERSE Other Start: 04-03-2023 Tobacco smoking status NHIS Smokes tobacco daily [facility] History of tobacco use Cigarette Smoker [facility] Start: 04-03-2023 Tobacco use and exposure Smokeless tobacco non-user [facility] Start: 04-03-2023 End: 01-28-2024 Alcohol intake Current drinker of alcohol (finding) [facility] National Score (1-100), lower number is lower risk 91 [facility] Start: 1960 Sex Assigned At Not on file [facility] Medical Equipment Procedure Code Equipment Code Equipment Original Text Equipment Identifier Dates Firth Thk1.65mm P tfe 4x.5in Cardiovascular Sterile - [id number] Start: 07-29-2023 Goals Date Patient Goal Desired Activity /State Personal health goal Personal health goal Clinical Notes 05-10-2022 to 04-28-2024 Papa Santiago MD - 04/28/2024 2:18 PM Shanice Dueñas MD - 04/07/2024 8:30 AM Christel Thao - 02/26/2024 10:09 AM EDTTelephone Encounter - Hilary Blackman RN - 02/25/2024 6:02 PM EDT Note Date & Type Note Facility 04-28-2024 Note [facility] 04-28-2024 History of Presen t illness Narrative Images from the original note were not included. 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) 06/14/2023 CAD (coronary artery disease) 06/14/2023 Carpal tunnel syndrome Cataract Coronary atherosclerosis Dental disease Depression Diabetes mellitus type 2 with peripheral artery disease (HCC) 06/14/2023 Essential hypertension 06/14/2023 Family hx-malignancy Former smoker Fractures Generalized anxiety disorder Hematoma HTN (hypertension) Injury of back Lung nodules Obesity PAD (peripheral artery disease) ([facility]) Visual impairment PAST SURGICAL HISTORY Procedure Laterality [...] TIME: 2:18 PM documented in this encounter [facility] 04-07-2024 History of Presen t illness Narrative [facility] Department of Cardiovascular Medicine VIRTUAL VIDEO VISIT [...] visit. 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 Severe multivessel chicken ranch coronary artery calcifications noted. Atherosclerotic calcifications of [...] 8:16 PM documented in this encounter [facility] 04-07-2024 Note [facility] 02-26-2024 History of Presen t illness Narrative Follow Up Diagnosis: Lung Nodule Recommendation: CT Scan Follow up Date: 02/15/2025 Follow-Up Scheduled: No Pulmonary Follow-Up Type: Lung Nodule Surveillance Enrolled in Lung Nodule program: Yes Lung Nodule Program Location: [facility] documented in this encounter [facility] 02-26-2024 Note [facility] 02-25-2024 Telephone encounter Note 02/25/[address] Eric carter. Hilary Blackman RN [facility] 02-25-2024 Miscellaneous Notes 02/25/[address] Eric Blackman RN Respiratory [facility] documented in this encounter [facility] 02-25-2024 Telephone encounter Note 02/25/24: Dr. Callahan requests patient be called with results of Ct Chest done 02/18/24: CT chest reviewed. Rt lung nodule opacity unchanged since 05/2023. Recommend continued monitoring -repeat CT imaging in 1 year. Called patient & LVM and sent MyC. Hilary Blackman RN [facility] 02-25-2024 Miscellaneous Notes 02/25/24: Dr. Callahan requests patient be called with results of Ct Chest done 02/18/24: CT chest reviewed. Rt lung nodule opacity unchanged since 05/2023. Recommend continued monitoring -repeat CT imaging in 1 year. Called patient & LVM and sent MyC. Hilary Blackman RN [facility] documented in this encounter [facility] 02-18-2024 History of Presen t illness [...] PATIENT PRESENTS WITH AN IMPLANTABLE OR ATTACHED ENDOCRINOLOGY TEACHER: No RADIOLOGY DEPARTMENT: CT; Exam(s) Completed: Chest PERIPHERAL IV DATA: Not applicable SIGNED BY: RT Mitch(Alyssa) February 18, 2024 2:05 PM documented in this encounter [facility] 02-18-2024 Note [facility] 02-04-2024 History of Presen t illness Narrative QOL Call Tracking Documentation Follow-Up Type: Phone Call Call Attempt: 1st Attempt Call Status: Complete documented in this encounter [facility] 02-04-2024 Note HNO ID: [id number] Author: ?, ?, ? Service: ? Author Type: ? Type: Progress Notes Filed: 02/04/2024 12:53 Note Text: QOL Call Tracking Documentation Follow-Up Type: Phone Call Call Attempt: 1st Attempt Call Status: Complete [facility] 01-28-2024 Note [facility] 01-28-2024 History of Presen t illness Narrative Images from the original note were not included. [facility] DEPARTMENT OF VASCULAR SURGERY OUTPATIENT VISIT DATE [...] spirits. 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) 06/14/2023 CAD (coronary artery disease) 06/14/2023 Carpal tunnel syndrome Cataract Coronary atherosclerosis Dental disease Depression Diabetes mellitus type 2 with peripheral artery disease (HCC) 06/14/2023 Essential hypertension 06/14/2023 Family hx-malignancy Former smoker Fractures Generalized anxiety disorder Hematoma HTN (hypertension) Injury of back Lung nodules Obesity PAD (peripheral artery disease) ([facility]) Visual impairment PAST SURGICAL HISTORY Procedure Laterality [...] INFORMATION: Shanice Larsen MD January 16, 2024 [address] [place] [address] Scrlaura Attestation: By signing my name below, [...] 12:17 PM documented in this encounter [facility] 01-16-2024 Note [facility] 01-01-2024 Telephone encounter Note Reason for call: Ms Quezada called and she would like to schedule an appointment with DR Qiana Neves and cell number [phone] Diagnosis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, bilateral legs Kind Regards Dunia [facility] 01-01-2024 Miscellaneous Notes Reason for call: Ms Quezada called and she would like to schedule an appointment with DR Qiana Neves and cell number [phone] Diagnosis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, bilateral legs Kind Regards Dunia documented in this encounter [facility] 10-30-2023 Note [facility] 10-30-2023 History of Presen t illness Narrative QOL Call Tracking Documentation Follow-Up Type: Phone Call Call Attempt: 1st Attempt Call Status: Patient will complete in MyChart documented in this encounter [facility] 10-30-2023 Telephone encounter Note Attempted to call patient, no answer. Left voicemail asking patient to check mychart as I will send there. Mary Franks RN [facility] 10-30-2023 Miscellaneous Notes Attempted to call [...] doses. October 25, 2023 Patient Contact Number: [phone] (home) Patient last seen within the last [...] Lizzeth Kong documented in this encounter [facility] 10-29-2023 Telephone encounter Note Per dr larsen, yes can be on both. Suzie does not see a reason to separate but can separate days of the week if want. Can take motrin intermittently but not regular doses. [facility] 10-25-2023 Telephone encounter Note October 25, 2023 Patient Contact Number: [phone] (home) Patient last seen within the last [...] three business days. Yes Lizzeth Kong [facility] 10-24-2023 Note [facility] 10-24-2023 History of Presen t illness Narrative Follow Up Diagnosis: Lung Nodule Recommendation: CT Scan Follow up Date: 04/16/2024 Follow-Up Scheduled: Yes Pulmonary Follow-Up Type: Lung Nodule Surveillance Enrolled in Lung Nodule program: Yes Lung Nodule Program Location: [facility] documented in this encounter [facility] 10-21-2023 Evaluation note Diagnosis Lung nodule- [...] smoking cessation documented in this encounter [facility] History of Present illness Narrative* Gloria Callahan MD - 10/21/2023 3:52 PM EDT Images from the original note were not included. [facility] INCIDENTAL LUNG NODULE PROGRAM ([facility] Follow-Up) Assessment / Plan 63 year [...] Lung Nodule Surveillance Lung Nodule Program Location: [facility] Medical Decision Making: Problems: Low: Stable [...] visit. 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 Moderate to severe chicken ranch coronary artery atherosclerotic calcifications are present, however, [...] given small size. 4. No thoracic lymphadenopathy. Relay Tester: CHRISTOPHER Transcribe Date/Time: Oct 11 2023 9:48A Dictated by : ANDREA HOWARD MD This examination was interpreted and the report reviewed and electronically signed by: ANDREA HOWARD MD on Oct 11 2023 10:08AM EST Last Spirometry SPIROMETRY BASELINE ONLY Collected: 06/14/2023 12:04 PM (Final result) Narrative: [facility] [address] [place] [address] Test Date: 2023-06-14 Pat Name: ELIZABETH QUEZADA Department: Room: Gender: Female Stakeholder Manager: : 1960 Requested By: Order Number: [id number] Reading MD: Stephanie Jain MD Interpretive Statements [...] 0:29:16 EST by Stephanie Jain MD ID: [id number] Name: ELIZABETH QUEZADA Race: White Ht: 63.78 [...] 2.82 FEF50/FIF50 0.58 90-100 FIVC (L) 2.34 QCH90-77 (L/sec) 1.08 0.99 2.04 3.49 53 Time [...] DLCO is hemoglobin corrected and obtained from [facility] lab on 05/28/2023. ATS/ERS acceptability and repeatability [...] MD Pulmonary & Critical Care Medicine [facility] [place] October 21, 2023 3:55 PM documented [facility] Telephone encounter Note * Telephone Encounter - Shanta Shook RN - 10/18/2023 2:12 PM EDT Ambulatory Pharmacy Prior Authorization Note Provider Intervention Required?: No- Pharmacy completed on your behalf. Rx Plan: [facility]: Repatha SureClick 140MG/ML auto-injectors Cover My Meds Aguayo: [id number] Determination: Approved Prior Authorization/Case #: n/a Prior [...] refills. Prescriptions will now be processed through [facility] Home Delivery Pharmacy for determination of next steps. For questions relating to this submission, please contact [facility] Home Delivery [facility] at [phone] [facility] Work Phone: [phone] Miscellaneous Notes* Telephone Encounter - Shanta Shook RN - 10/18/2023 2:12 PM EDT Ambulatory Pharmacy Prior Authorization Note Provider Intervention Required?: No- Pharmacy completed on your behalf. Rx Plan: [facility]: Repatha SureClick 140MG/ML auto-injectors Cover My Meds [place]: [id number] Determination: Approved Prior Authorization/Case #: n/a Prior [...] refills. Prescriptions will now be processed through [facility] Home Delivery Pharmacy for determination of next steps. For questions relating to this submission, please contact [facility] at [phone] documented in this encounterProm[facility] Telephone encounter Note * Telephone Encounter - Lizzeth Kong - 10/17/2023 2:12 PM EDT ADMIN UPLOADED OUTSIDE CARDIAC IMAGES TO [facility] CTA HEAD/NECK CT ANGIO HEAD CT ANGIO NECK CA ECHO DOPPLER Lizzeth Kong October 17, 2023 2:16 PM [facility]04-25-2024 Miscellaneous Notes* Telephone Encounter - Lizzeth Kong - 10/17/2023 2:12 PM EDT ADMIN UPLOADED OUTSIDE CARDIAC IMAGES TO [facility] CTA HEAD/NECK CT ANGIO HEAD CT ANGIO NECK CA ECHO DOPPLER Lizzeth Kong October 17, 2023 2:16 PM documented in [facility] Telephone encounter Note * Telephone Encounter - Lizzeth Kong - 10/17/2023 1:36 PM EDT ADMIN UPLOADED OUTSIDE CARDIAC RECORDS TO [facility] ECHO REPORT Lizzeth Luann October 17, 2023 1:37 PM [facility]04-25-2024 Miscellaneous Notes* Telephone Encounter - Lizzeth Kong - 10/17/2023 1:36 PM EDT ADMIN UPLOADED OUTSIDE CARDIAC RECORDS TO [facility] ECHO REPORT Lizzeth Luann October 17, 2023 1:37 PM documented in this encounterProm[facility]04[facility] History of Present illness Narrative* Shanice Larsen MD - 10/10/2023 12:30 PM EDT Images from the original note were not included. 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) [...] INFORMATION: Shanice Larsen MD October 10, 2023 [address] [place] [address] Scribe Attestation: By signing my name below, [...] 2023 6:00 PM documented in this encounterProm[facility] History of Present illness Narrative* Yojana Liang, [...] PATIENT PRESENTS WITH AN IMPLANTABLE OR ATTACHED ENDOCRINOLOGY TEACHER: No RADIOLOGY DEPARTMENT: CT; Exam(s) Completed: Chest PERIPHERAL IV DATA: Not applicable SIGNED BY: RT Sepideh(R) October 10, 2023 10:36 AM documented in this encounterProm[facility]ica [facility]04-01-2024 Miscellaneous Notes* Telephone Encounter - Anna Richmond - 09/23/2023 11:34 AM EDT Yeimy from [facility] - Dr. Luciano called and wanted to know how long should it be for the patient to be cleared after surgery for the patient to get her teeth cleaned. It's been 8 weeks and she thought it would be longer than that. Yeimy can be reached at [phone] documented in this encounterProm[facility]03-[facility] History of Present illness Narrative* Anna Perea RN - 09/03/2023 12:14 PM EDT QOL Call Tracking Documentation Follow-Up Type: Phone Call Call Attempt: 1st Attempt Call Status: Patient will complete in MyChart documented in this encounterPromedica Defiance [facility]03-12-2024 NoteW[facility]03-01-2024 Miscellaneous Notes* Telephone Encounter - Dot Stern - 08/23/2023 9:07 AM EST Reason for call: Pt called and she would like to reschedule her appt on 02 september to . Home and cell number: [phone] Diagnosis: HOSP FOLLOW UP-DISCUSS TIMING OF LOVE FEM ENDARTS NO TESTING NEEDED Kind Regards, Dot Stern documented in this encounterPromedica Defiance [facility] Hospital02-15-2024 Miscellaneous Notes* Telephone Encounter - Moriah [...] Moriah Morris RN documented in this encounterPromedica Defiance Regional Hospital02-14-2024 Instructions* Patient Instructions* Dania Cruz APRN.CNP - 08/07/2023 11:10 AM EST Follow up with PCP next week with repeat cbc and cmp to monitor trends. Follow up with industrial safety and health technician in 4-6 weeks with consideration of repeat echo. No further refills unless specified by local providers. documented in this encounterPromedica Defiance Regional Hospital02-14-2024 History of Present illness Narrative* Dania Cruz APRN.CNP - 08/07/2023 10:30 AM EST Images from the original note were not included. 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 ([facility]) 06/14/2023 CAD (coronary artery disease) 06/14/2023 Carpal tunnel syndrome Cataract Coronary atherosclerosis Dental disease Depression Diabetes mellitus type 2 with peripheral artery disease (HCC) 06/14/2023 Essential hypertension 06/14/2023 Family hx-malignancy Former smoker Fractures Generalized anxiety disorder Hematoma HTN (hypertension) Injury of back Lung nodules Obesity PAD (peripheral artery disease) ([facility]) Visual impairment PAST SURGICAL HISTORY Procedure Laterality [...] clean, dry and intact Wound: NA SV [place] [facility] sites: Location: Right LE, mid, distal, and ankle, healing, and clean, dry and intact with shelby. Edematous noted. Procedures: every other [place] removed from saphenous vein sites without difficulty. [...] cmp to monitor trends Follow up with industrial safety and health technician in 4-6 weeks. May need more diuresing [...] prophylaxis reviewed Discussed wound care Dania Cruz APRN.[facility]ION[facility] [employer] documented in this encounterPromedica Defiance Regional Hospital02-14-2024 NoteWright-Patterson [facility]02-14-2024 History of Present illness Narrative* Shannan Hernandez [...] PATIENT PRESENTS WITH AN IMPLANTABLE OR ATTACHED ENDOCRINOLOGY TEACHER: No RADIOLOGY DEPARTMENT: General X-ray: Exam(s) Completed: Chest X-Ray PERIPHERAL IV DATA: Not applicable SIGNED BY: RT Enrike(Alyssa) August 07, 2023 10:07 AM documented in this encounterPromedica Defiance [facility] Hospital02-14-2024 NoteWright-[facility]02-13-2024 Miscellaneous Notes* Telephone Encounter - Kevin Reardon [...] Kevin Reardon RN documented in this encounterPromedica Defiance Regional Hospital02-09-2024 NoteWright-[facility]02-09-2024 NoteW[facility]02-09-2024 NoteW[facility]02-08-2024 NoteW[facility]02-08-2024 Note [facility]02-07-2024 NoteW[facility]02-06-2024 NoteW[facility]02-05-2024 [facility] 07-29-2023 NoteWright-Patterson Medical Center02-05-2024 NoteW[facility] Center01-31-2024 NoteHNO ID: [id number] Author: ?, ?, ? Service: ? Author Type: ? Type: Progress Notes Filed: 07/24/2023 11:11 Note Text: QOL Call Tracking Documentation Follow-Up Type: Phone Call Call Attempt: 1st Attempt Call Status: Left MessageWright-Patterson Medical Center01-24-2024 NoteW[facility]01-24-2024 NoteW[facility]01-24-2024 Note [facility]01-15-2024 NoteW[facility]01-09-2024 NoteW[facility]01-09-2024 NoteW[facility] 07-02-2023 NoteW[facility]01-09-2024 NoteW[facility]01-09-2024 NoteW[facility]01-09-2024 NoteW[facility]01-04-2024 NoteW[facility] Center12-29-2023 NoteHNO ID: [id number] Author: Christel De La Fuente Service: ? Author Type: ? Type: Progress Notes Filed: 06/26/2023 2:37 PM Note Text: Sent to Scheduling Patient scheduled 07/08/23[facility]12-29-2023 [facility]12-22-2023 NoteWright-[facility] Center12-22-2023 Note [facility]12-22-2023 NoteHNO ID: [id number] Author: Julio Smalls RRT Service: ? Author Type: Registered Resp Therapist Type: Progress Notes Filed: 06/14/2023 12:24 PM Note Text: PULM FUNCTION SMARTBLOCK: Provider: Willem Suarez MD Spirometry: 1 [facility] 06-03-2023 Miscellaneous Notes* Telephone Encounter - LcRobbin lentz - 06/03/2023 4:34 PM EST CALLED AND CONFIRMED APPTS W/MRS. QUEZADA VIA PHONE MAILED REMINDER FED EX NEXT DAY 06-03-23 #[id number] * Telephone Encounter - Ghazala Malave RN - 05/30/2023 10:08 AM EST eval only kris vascular surgery, testing, Dr. Suarez *Please call with date internal referral diagnosis: CAD history: PAD s/p iliac stents November 2022, current smoker, DM2, HTN blood thinners: asa 81, plavix, xarelto, trulicity, jardiance, ibuprofen documented in this encounterPromedica Defiance Regional Hospital12-07-2023 Miscellaneous Notes* Telephone Encounter - Radha Brady - 05/30/2023 10:38 AM EST IN documented in this encounterPromedica Defiance Regional Hospital12-05-2023 NoteWright-[facility]12-05-2023 History of Present illness Narrative* Shanice Larsen MD - 05/28/2023 1:37 PM EST Images from the original note were not included. [facility] Department of Cardiovascular Medicine SECTION OF CLINICAL CARDIOLOGY OUTPATIENT VISIT DATE May 28, 2023 OUTPATIENT VISIT TYPE ESTABLISHED PRIMARY CARE PHYSICIAN: To use this Smartlink, specify the provider ID whose address you want to display, e.g., .PROVADDR[1(where 1 is the provider ID). REFERRING PHYSICIAN: Shanice Larsen [address] [facility] [address] CHIEF COMPLAINT: Shortness of breath HISTORY OF PRESENT ILLNESS: Ms. Quezada is a 63 year old female who presents today for a cardiovascular medicine follow-up visit. I last saw her in Mar . She was having severe nausea and vomiting at the time. She was worked up by her pelts skinner and no cause was found. She is [...] MD CONTACT INFORMATION: documented in this encounterPromedica Defiance [facility] Hospital11-20-2023 NoteWright[facility]11-20-2023 History of Present illness Narrative* Shanice Larsen MD - 05/13/2023 3:10 PM EST [facility] Department of Cardiovascular Medicine VIRTUAL VIDEO VISIT [...] visit. Either the patient or their legal b2b outside sales representative has been informed of the [...] 2023 3:10 PM documented in this encounterPromedica Defiance [facility] Hospital11-09-2023 NoteW[facility]11-03-2023 History of Present illness Narrative* Shanice Larsen [...] risk-Shanice Larsen MD documented in this encounterPromedica Defiance Regional Hospital10-11-2023 Instructions* Patient Instructions* Serena Smith - 04/03/2023 9:34 AM EDT Complete blood work today Complete Echo documented in this encounterPromedica Defiance Regional Hospital10-11-2023 History of Present illness Narrative* Shanice Larsen MD - 04/03/2023 7:45 AM EDT Images from the original note were not included. [facility] Department of Cardiovascular Medicine SECTION [...] is a 63 year old female from [place], [place] here today for cardiovascular evaluation related [...] 2023 10:10 AM documented in this encounterPromedica Defiance Regional Hospital10-03-2023 Hospital Discharge instructions Additional Instructions DISCHARGE INSTRUCTIONS FOR CARDIAC SLAG SKIMMER PHONE NUMBER OF YOUR PHYSICIAN: [phone] PROCEDURE: Heart Cath The following instructions have [...] cold, numb, blue or white, call the industrial safety and health technician immediately. 4. ACTIVITY: You are advised to [...] bottle, follow the instructions on the bottle. [facility] is not responsible for incorrect prescription information provided by the patient during their visit. Do not stop your medications without consulting your health care provider. Please take the list with you to your next doctor's appointment.[facility] Work Phone: [phone]) 261-940909-27-2023 Evaluation note* Encounter Date Diagnosis Assessment Notes Treatment Notes Treatment Clinical Notes Feb, Shortness of breath (ICD-10 - R06.02) Feb, Abnormal stress test (ICD-10 - R94.39) 63-year-old female with past medical history significant for peripheral vascular disease status post bilateral iliac kissing stents with now worsening intermittent claudication. She is planned for an aortobifemoral bypass surgery at [facility] on March 29, 2023 and [...] Hyperlipidemia, unspecified hyperlipidemia type (ICD-10 - E78.5) [facility] [employer] Other [id number] NotePROCEDURE: XR FOOT RT MIN 3 VIEWS [...] authenticated by: NISA EDWARDS Date: 2022-05-10 13:23The [facility] complaint Narrative - Abiodun QUEZADA is being seen for a consultation for dizziness, fatigue and palpitations.-[facility] [place] [address] DO Work Phone: Evaluation noteNo assessment information available [facility] Work Phone: evaluation noteNo InformationNort [employer] Other evaluation note* Diagnosis Abnormal stress test- Primary Other nonspecific abnormal cardiovascular system function study documented in this encounter [facility] note* Diagnosis Abnormal stress test- Primary Other nonspecific abnormal cardiovascular system function study [facility]* Diagnosis Coronary artery disease involving chicken ranch coronary artery without angina pectoris, unspecified whether chicken ranch or transplanted heart- Primary documented in this encounter [facility] note* Diagnosis 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- Primary Preop cardiovascular exam Pre-operative cardiovascular examination Morbid obesity (HCC) Morbid obesity documented in this encounter [facility] note* Diagnosis SOB (shortness of breath)- Primary Shortness of breath 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 PAD (peripheral artery disease) (HCC) Peripheral vascular disease, unspecified [facility] Diagnosis 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)- Primary PAD (peripheral artery disease) ([facility]) Peripheral vascular disease, unspecified S/P insertion of iliac artery stent Other postprocedural status Current smoker Tobacco use disorder Primary hypertension Unspecified essential hypertension Coronary angioplasty status Postsurgical percutaneous transluminal coronary angioplasty status documented in this encounter [facility]* Diagnosis Surgery follow-up- Primary Follow-up examination, following unspecified surgery documented in this encounter [facility]* Diagnosis S/P CABG (coronary artery bypass graft)- Primary Postsurgical aortocoronary bypass status PVD (peripheral vascular disease) ([facility]) Peripheral vascular disease, unspecified documented in this encounter [facility]* Diagnosis Surgery follow-up Follow-up examination, following unspecified surgery [facility] Diagnosis Abnormal finding of diagnostic imaging- Primary Other nonspecific (abnormal) findings on radiological and other examinations of body structure documented in this encounter [facility]* Diagnosis 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- Primary [facility]* Diagnosis Lung nodule Solitary pulmonary nodule [facility]* Diagnosis 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 SOB (shortness of breath) Shortness of breath PAD (peripheral artery disease) ([facility]) Peripheral vascular disease, unspecified TIA (transient ischemic attack) Unspecified transient cerebral ischemia [facility]* Diagnosis 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, bilateral legs (HCC)- Primary [facility]* Diagnosis 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 PAD (peripheral artery disease) ([facility]) Peripheral vascular disease, unspecified Primary hypertension Unspecified essential hypertension Hyperlipidemia, unspecified hyperlipidemia type documented in this encounter [facility]* Diagnosis Atherosclerosis of chicken ranch artery of both lower extremities with intermittent claudication (HCC)- Primary Atherosclerosis of chicken ranch arteries of the extremities with intermittent claudication documented in this encounter [facility]* Diagnosis Lung nodule- Primary Solitary pulmonary nodule Lung nodule- Primary Solitary pulmonary nodule 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) PAD (peripheral artery disease) (HCC) Peripheral vascular disease, unspecified Primary hypertension Unspecified essential hypertension Hyperlipidemia, unspecified hyperlipidemia type documented in this encounter [facility]* Diagnosis Lung nodule- Primary Solitary pulmonary nodule Lung nodule- Primary Solitary pulmonary nodule Pathological fracture of sternum with malunion- Primary 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) documented in this encounter [facility]* Diagnosis Lung nodule- Primary Solitary pulmonary nodule Lung nodule- Primary Solitary pulmonary nodule Peripheral vascular disease (HCC)- Primary Peripheral vascular disease, unspecified Diminished pulses in lower extremity Other symptoms involving cardiovascular system PAD (peripheral artery disease) (HCC) Peripheral vascular disease, unspecified documented in this encounter [facility]* Diagnosis Lung nodule- Primary Solitary pulmonary nodule Lung nodule- Primary Solitary pulmonary nodule Atherosclerosis of chicken ranch artery of both lower extremities with intermittent claudication (HCC)- Primary Atherosclerosis of chicken ranch arteries of the extremities with intermittent claudication documented in this encounter [facility] Narrative - Reported* Type Description Date Medical History aortic stenosis Medical History diabetes type 2 Medical History blood clot Medical History hypertension Medical History hyperlipidemia Medical History peripheral vascular disease Surgical History carpal tunnel Surgical History trigger finger Surgical History tubal ligation Surgical History bilateral kissing stents Surgical History left thigh evacuation hematoma Hospitalization History blood clot after cardiac stents [employer] Other History of Present illness Narrative* Patient [...] change and see us henceforth as needed. -[facility]-Chad Reyes DO Work Phone: [facility] for referral (narrative)* Outpatient Procedure (Routine) - Authorized Specialty Diagnoses / Procedures Referred By Contac t Referred To Contact [facility] [place] Diagnoses Abnormal stress test Procedures ECHO ECHO TTHRC R-T 2D W/WOM-MODE COMPL SPEC&COLR D Shanice Larsen MD [address] [place] [address] [address] Referral ID Status Reason Start Date Expiration Date Visits Requested Visits Authorized [id number] Authorized Auto-Generat ed Referral 3 04/02/2024 1 1 T [facility] for referral (narrative)* Outpatient Procedure (Routine) - Authorized Specialty Diagnoses / Procedures Referred By Contac t Referred To Contact [facility] Diagnoses Abnormal stress test Procedures ECG COMPLETE ECG ROUTINE ECG W/LEAST 12 LDS W/I&R Pamela Laws APRN.CNP [address] [place] [address] [place] [id number] Referral ID Status Reason Start Date Expiration Date Visits Requested Visits Authorized [id number] Authorized Auto-Generat ed Referral 3 04/07/2024 1 1 [facility] for referral (narrative)* Outpatient Procedure (Routine) - Authorized Specialty Diagnoses / Procedures Referred By Contac t Referred To Contact [facility] [place] Diagnoses 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) PAD (peripheral artery disease) (HCC) S/P insertion of iliac artery stent Current smoker Primary hypertension Coronary angioplasty status Procedures US RADIAL ARTERY MAP LOVE VAS LAB DUP-SCAN UXTR ART/ARTL BPGS COMPL BI STUDY Willem Suarez MD [address] [place] [address] [facility] [address] [place] [address] Referral ID Status Reason Start Date Expiration Date Visits Requested Visits Authorized [id number] Authorized Auto-Generat ed Referral 3 06/02/2024 1 1 * Outpatient Procedure (Routine) - Authorized Specialty Diagnoses / Procedures Referred By Catherine michel Referred To [facility] [place] Diagnoses 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) PAD (peripheral artery disease) (HCC) S/P insertion of iliac artery stent Current smoker Primary hypertension Coronary angioplasty status Procedures LUNG DIFFUSION CAPACITY (DLCO) DIFFUSING CAPACITY Willem Suarez MD [address] [place] [address] [facility] [address] [place] [id number] Referral ID Status Reason Start Date Expiration Date Visits Requested Visits Authorized [id number] Authorized Auto-Generat ed Referral 3 07/02/2024 1 1 * Outpatient Procedure (Routine) - Authorized Specialty Diagnoses / Procedures Referred By Catherine michel Referred To [facility] [place] Diagnoses 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) PAD (peripheral artery disease) (HCC) S/P insertion of iliac artery stent Current smoker Primary hypertension Coronary angioplasty status Procedures SPIROMETRY BASELINE ONLY SPMTRY W/VC EXPIRATORY CHERYL W/WO MXML VOL VNTJ Willem Suarez MD [address] [place] [address] [facility] [address] [place] [phone] Referral ID Status Reason Start Date Expiration Date Visits Requested Visits Authorized [id number] Authorized Auto-Generat ed Referral 3 07/02/2024 1 1 * Outpatient Procedure (Routine) - Authorized Specialty Diagnoses / Procedures Referred By Contac t Referred To Contact [facility] [place] Diagnoses 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) PAD (peripheral artery disease) (HCC) S/P insertion of iliac artery stent Current smoker Primary hypertension Coronary angioplasty status Procedures US MAMMARY ARTERY LOVE VAS LAB DUP-SCAN UXTR ART/ARTL BPGS COMPL BI STUDY Willem Suarez MD [address] [place] [address] [address] Referral ID Status Reason Start Date Expiration Date Visits Requested Visits Authorized [id number] Authorized Auto-Generat ed Referral 3 06/02/2024 1 1 * Outpatient Procedure (Routine) - Authorized Specialty Diagnoses / Procedures Referred By Contac t Referred To [facility] Diagnoses 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) PAD (peripheral artery disease) (HCC) S/P insertion of iliac artery stent Current smoker Primary hypertension Coronary angioplasty status Procedures US LEG VEIN MAP LOVE VAS LAB DUP-SCAN XTR VEINS COMPLETE BILATERAL STUDY Willem Suarez MD [address] [place] [address] [address] Referral ID Status Reason Start Date Expiration Date Visits Requested Visits Authorized [id number] Authorized Auto-Generat ed Referral 3 06/02/2024 1 1 * Outpatient Procedure (Routine) - Authorized Specialty Diagnoses / Procedures Referred By Contac t Referred To Contact [facility] [place] Diagnoses 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) PAD (peripheral artery disease) (HCC) S/P insertion of iliac artery stent Current smoker Primary hypertension Coronary angioplasty status Procedures US CAROTID ARTERIES LOVE VAS LAB DUPLEX SCAN EXTRACRANIAL ART COMPL BI STUDY Willem Suarez [facility] [address] [facility] [place] [address] [facility] [address] [place] [phone] Referral ID Status Reason Start Date Expiration Date Visits Requested Visits Authorized [id number] Authorized Auto-Generat ed Referral 3 06/23/2023 1 1 * MRI/CT (Routine) - Authorized Specialty Diagnoses / Procedures Referred By Catherine michel Referred To Contact CT IMAG[facility] Diagnoses 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) PAD (peripheral artery disease) (HCC) S/P insertion of iliac artery stent Current smoker Primary hypertension Coronary angioplasty status Procedures CT CHEST CARDIAC WO IVCON DIAGNOSTIC COMPUTED TOMOGRAPHY THORAX W/O CNTRST Willem Suarez MD [address] [place] [id number] Imaging [place] [address] Referral ID Status Reason Start Date Expiration Date Visits Requested Visits Authorized [id number] Authorized Auto-Generat ed Referral 3 07/02/2024 1 1 * Consult, Test, Treat (Routine) - Authorized Specialty Diagnoses / Procedures Referred By Catherine t Referred To Contact Vascular Surgery Diagnoses 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) PAD (peripheral artery disease) (HCC) S/P insertion of iliac artery stent Current smoker Primary hypertension Coronary angioplasty status Procedures CONSULT TO VASCULAR SURGERY OFFICE/OUTPATIENT NEW HIGH MDM 60-74 MINUTES Willem Suarez MD [address] [facility] [place] [address] Referral ID Status Reason Start Date Expiration Date Visits Requested Visits Authorized [id number] Authorized PCP Requested Referral 3 06/02/2024 1 1 * Consult, Test, Treat (Routine) - Authorized Specialty Diagnoses / Procedures Referred By Catherine michel Referred To Contact Cardiac Surg Diagnoses 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) PAD (peripheral artery disease) (HCC) S/P insertion of iliac artery stent Current smoker Primary hypertension Coronary angioplasty status Procedures CARDIOTHORACIC PREOP EVALUATION OFFICE/OUTPATIENT [facility] HIGH MDM 60-74 MINUTES Willem Suarez MD [address] [place] [address] Referral ID Status Reason Start Date Expiration Date Visits Requested Visits Authorized [id number] Authorized PCP Requested Referral 3 06/02/2024 1 1 [facility] for referral (narrative)* Outpatient Procedure (Routine) - Pending Review Specialty Diagnoses / Procedures Referred By Catherine michel Referred To Contact HEART [facility] [place] Diagnoses Surgery follow-up Procedures ECG COMPLETE ECG ROUTINE ECG W/LEAST 12 LDS W/I&R Willem Suarez MD [address] [facility] [facility] [place] [address] [facility] [place] [address] 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) SOB (shortness of breath) PAD (peripheral artery disease) (HCC) TIA (transient ischemic attack) Procedures ECG COMPLETE ECG ROUTINE ECG W/LEAST 12 LDS W/I&R Shanice Larsen MD [address] [place] [address] [address] Referral ID Status Reason Start Date Expiration Date Visits Requested Visits Authorized [id number] Pending Review Auto-Generat ed Referral 10/10/2023 10/09/2024 1 1 * Transition of Care (Routine) - Ref Not Required Specialty Diagnoses / Procedures Referred By Contac t Referred To Contact [facility] Diagnoses 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) SOB (shortness of breath) PAD (peripheral artery disease) (HCC) TIA (transient ischemic attack) Procedures CARDIOVASCULAR MEDICINE [place] [address] [place] [address] [place] [address] Referral ID Status Reason Start Date Expiration Date Visits Requested Visits Authorized [id number] Ref Not Required PCP Requested Referral 01/09/2024 10/09/2024 1 1 [facility] for referral (narrative)* Outpatient Procedure (Routine) - Pending Review Specialty Diagnoses / Procedures Referred By Contac t Referred To [facility] Diagnoses 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, bilateral legs (HCC) Procedures PVR LEG [facility] NON-INVASIVE PHYSIOLOGIC STUDY EXTREMITY 3 Papa Hernandez MD [id number] [place] [address] Referral ID Status Reason Start Date Expiration Date Visits Requested Visits Authorized [id number] Pending Review Auto-Generat ed Referral 01/03/2024 01/02/2025 1 1 [facility] for referral (narrative)* Outpatient Procedure (Routine) - New Request Specialty Diagnoses / Procedures Referred By Contac t Referred To Contact [facility] Diagnoses 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) Procedures ECG COMPLETE ECG ROUTINE ECG W/LEAST 12 LDS W/I&R Shanice Larsen MD [address] [place] [address] [facility] [place] [address] [place] [address] Referral ID Status Reason Start Date Expiration Date Visits Requested Visits Authorized [id number] New Request Auto-Generat ed Referral 04/08/2025 1 1 * Transition of Care (Routine) - Ref Not Required Specialty Diagnoses / Procedures Referred By Contcj t Referred To Contact [facility] [place] Procedures CARDIOVASCULAR MEDICINE OP FOLLOW UP APPT ORDER Shanice Larsne MD [address] [place] [address] [address] Referral ID Status Reason Start Date Expiration Date Visits Requested Visits Authorized [id number] Ref Not Required PCP Requested Referral 10/07/2024 04/08/2025 1 1 [facility] Summary Purpose Family History No Family [...] Documents on File Type Date 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 Advance Directive(s) 07/17/2023 1:14 PM Documents on File Type Date 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 Advance Directive(s) 07/17/2023 1:14 PM [...] ABDL AORTA&BI ILIOFEM W/CONTRAST&POSTP Papa Santiago MD [address] [place] [address] Ct Imaging [place] [address] Referral ID Status Reason Start Date Expiration Date Visits Requested Visits Authorized [id number] Pending Review Auto-Generat ed Referral 04/28/2024 05/28/2025 1 1 Specialty Diagnoses / Procedures Referred By Lanceac t Referred To Contact [facility] Diagnoses Peripheral vascular disease (HCC) Diminished pulses in lower extremity PAD (peripheral artery disease) (HCC) Procedures PVR ANK PRESS [facility] NON-INVAS PHYSIOLOGIC STD EXTREMITY ART 2 LEVEL Papa Santiago MD [address] [place] [address] [facility] [place] [address] [place] [address] Referral ID Status Reason Start Date Expiration Date Visits Requested Visits Authorized [id number] Pending Review Auto-Generat ed Referral 04/28/2024 04/28/2025 1 1 Specialty Diagnoses / Procedures 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) PAD (peripheral artery disease) (HCC) Primary hypertension Hyperlipidemia, unspecified hyperlipidemia type Procedures CT CHEST WO IVCON DIAGNOSTIC COMPUTED TOMOGRAPHY THORAX W/O Shanice Patton MD [id number] Imaging [facility] Referral ID Status Reason Start Date Expiration Date Visits Requested Visits Authorized [id number] Pending Review Auto-Generat ed Referral 01/16/2024 02/14/2025 1 1 Specialty Diagnoses / Procedures Referred By Contac t Referred To Contact [facility] [place] Diagnoses 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) PAD (peripheral artery disease) (HCC) Primary hypertension Hyperlipidemia, unspecified hyperlipidemia type Procedures ECG COMPLETE ECG ROUTINE ECG W/LEAST 12 LDS W/I&R Shanice Larsen MD [address] [place] [address] [place] [address] Referral ID Status Reason Start Date Expiration Date Visits Requested Visits Authorized [id number] New Request Auto-Generat ed Referral 01/16/2024 01/15/2025 1 1 Specialty Diagnoses / Procedures Referred By Contac t Referred To Contact [facility] [place] Diagnoses 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) PAD (peripheral artery disease) (HCC) Primary hypertension Hyperlipidemia, unspecified hyperlipidemia type Procedures CARDIOVASCULAR MEDICINE OP FOLLOW UP APPT ORDER Shanice Larsen MD [phone] [place] [address] Referral ID Status Reason Start Date Expiration Date Visits Requested Visits Authorized [id number] Ref Not Required PCP Requested Referral 07/18/2024 01/15/2025 1 1 Specialty Diagnoses / Procedures Referred By Contac t Referred To Contact CT IMAGING Diagnoses Lung nodule Procedures CT CHEST WO IVCON DIAGNOSTIC COMPUTED TOMOGRAPHY THORAX W/O CNTRST Gloria Callahan MD [facility] [place] [phone] Imaging [facility]95 Referral ID Status Reason Start Date Expiration Date Visits Requested Visits Authorized [id number] Pending Review Auto-Generat ed Referral 10/21/2023 11/19/2024 1 1 Specialty Diagnoses / Procedures Referred By Catherine michel Referred To Contact Procedures CARDIOVASCULAR MEDICINE OP FOLLOW UP APPT ORDER Shanice Larsen MD [address] [place] [address] Referral ID Status Reason Start Date Expiration Date Visits Requested Visits Authorized [id number] Ref Not Required PCP Requested Referral 05/28/2023 05/27/2024 1 1 Specialty Diagnoses / Procedures Referred By Catherine michel Referred To Contact Cardiothoracic Surgery Diagnoses Coronary artery disease involving chicken ranch coronary artery without angina pectoris, unspecified whether chicken ranch or transplanted heart Procedures CONSULT TO CARDIOTHORACIC SURGERY Shanice Larsen MD [address] [place] [address] Referral ID Status Reason Start Date Expiration Date Visits Requested Visits Authorized [id number] Ref Not Required PCP Requested Referral 05/26/2023 [...] section and content) DATE CREATED AUTHOR 07/19/2022 [facility] DATE CREATED AUTHOR AUTHOR'S ORGANIZ ATION 07/20/2022 [employer] DATE CREATED AUTHOR AUTHOR'S ORGANIZ ATION 10/07/2022 [facility] DATE CREATED AUTHOR AUTHOR'S ORGANIZ ATION 04/03/2023 [facility] DATE CREATED AUTHOR AUTHOR'S ORGANIZ ATION 06/11/2023 [facility] DATE CREATED AUTHOR AUTHOR'S ORGANIZ ATION 10/03/2023 [facility] DATE CREATED AUTHOR AUTHOR'S ORGANIZ ATION 12/30/2023 [facility] DATE CREATED AUTHOR AUTHOR'S ORGANIZ ATION 04/29/2024 [facility] Care Teams (unrecognized sec tion and content) Team Status: Active Member Role Status Dates Nano Nguyen MD Primary Care Provider Active Team Status: Inactive Member Role Status Dates Patrizia Melendrez MD Attending Provider Active Nano Nguyen MD Primary Care Provider Active 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 Machine 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 Relationship Specialty Start Date End Date Shanice Larsen MD [address] [place] [address] Primary Staff Physician Cardiology 04/03/23 Lagging Machine Operator Relationship Specialty Start Date End Date Shanice Larsen MD [address] [place] [address] Primary Staff Physician Cardiology 04/03/23 Lagging Machine Operator Relationship Specialty Start Date End Date Shanice Larsen MD [address] [place] [address] Primary Staff Physician Cardiology 04/03/23 Lagging Machine Operator Relationship Specialty Start Date End Date Shanice Larsen MD [address] [place] [address] Primary Staff Physician Cardiology 04/03/23 Lagging Machine Operator Relationship Specialty Start Date End Date Shanice Larsen MD [address] [place] [address] Primary Staff Physician Cardiology 04/03/23 Willem Suarez MD [address] [place] [address] Surgeon Cardiac Surg 05/30/23 Lagging Machine Operator Relationship Specialty Start Date End Date Shanice Larsen MD [address] [place] [address] Primary Staff Physician Cardiology 04/03/23 Willem Suarez MD [address] [place] [address] Surgeon Cardiac Surg 05/30/23 Lagging Machine Operator Relationship Specialty Start Date End Date Nano Nguyen MD [address] [place] [phone] PCP - General Family Medicine 06/14/23 Shanice Larsen MD Primary Staff Physician Cardiology 04/03/23 Willem Suarez MD [address] [place] [phone] Surgeon Cardiac Surg 05/30/23 Lagging Machine Operator Relationship Specialty Start Date End Date Nano Nguyen MD [address] [place] [address] PCP - General Family Medicine 06/14/23 Shanice Larsen MD Primary Staff Physician Cardiology 04/03/23 Willem Suarez MD [address] [facility] [place] [address] Surgeon Cardiac Surg 05/30/23 Lagging Machine Operator Relationship Specialty Start Date End Date Nano Nguyen MD [address] [place] [address] PCP - General Family Medicine 06/14/23 Shanice Larsen MD Primary Staff Physician Cardiology 04/03/23 Willem Suarez MD [address] [place] [address] Surgeon Cardiac Surg 05/30/23 Lagging Machine Operator Relationship Specialty Start Date End Date Nano Nguyen MD [address] [place] [address] PCP - General Family Medicine 06/14/23 Shanice Larsen MD Primary Staff Physician Cardiology 04/03/23 Willem Suarez MD [address] [place] [address] Surgeon Cardiac Surg 05/30/23 Lagging Machine Operator Relationship Specialty Start Date End Date Nano Nguyen MD [address] [place] [address] PCP - General Family Medicine 06/14/23 Shanice Larsen MD Primary Staff Physician Cardiology 04/03/23 Willem Suarez MD [address] [place] [address] Surgeon Cardiac Surg 05/30/23 Lagging Machine Operator Relationship Specialty Start Date End Date Nano Nguyen MD [address] [place] [address] PCP - General Family Medicine 06/14/23 Shanice Larsen MD Primary Staff Physician Cardiology 04/03/23 Willem Suarez MD [address] [place] [address] Surgeon Cardiac Surg 05/30/23 Lagging Machine Operator Relationship Specialty Start Date End Date Nano Nguyen MD [address] [place] [address] PCP - General Family Medicine 06/14/23 Shanice Larsen MD Primary Staff Physician Cardiology 04/03/23 Willem Suarez MD [address] [facility] [place] [address] Surgeon Cardiac Surg 05/30/23 Lagging Machine Operator Relationship Specialty Start Date End Date Nano Nguyen MD [address] [place] [address] PCP - General Family Medicine 06/14/23 Shanice Larsen MD Primary Staff Physician Cardiology 04/03/23 Willem Suarez MD [address] [place] [address] Surgeon Cardiac Surg 05/30/23 Lagging Machine Operator Relationship Specialty Start Date End Date Nano Nguyen MD [address] [place] [address] PCP - General Family Medicine 06/14/23 Shanice Larsen MD Primary Staff Physician Cardiology 04/03/23 Willem Suarez MD [address] [place] [address] Surgeon Cardiac Surg 05/30/23 Lagging Machine Operator Relationship Specialty Start Date End Date Nano Nguyen MD [address] [place] [address] PCP - General Family Medicine 06/14/23 Shanice Larsen MD Primary Staff Physician Cardiology 04/03/23 W[address]m Suarez MD [address] [facility] [place] [address] Surgeon Cardiac Surg 05/30/23 Lagging Machine Operator Relationship Specialty Start Date End Date Nano Nguyen MD [address] [place] [address] PCP - General Family Medicine 06/14/23 Shanice Larsen MD Primary Staff Physician Cardiology 04/03/23 Willem Suarez MD [address] [place] [address] Surgeon Cardiac Surg 05/30/23 Lagging Machine Operator Relationship Specialty Start Date End Date Nano Nguyen MD [address] [place] [address] PCP - General Family Medicine 06/14/23 Shanice Larsen MD Primary Staff Physician Cardiology 04/03/23 Willem Suarez MD [address] [place] [address] Surgeon Cardiac Surg 05/30/23 Lagging Machine Operator Relationship Specialty Start Date End Date Nano Nguyen MD [address] [place] [address] PCP - General Family Medicine 06/14/23 Shanice Larsen MD Primary Staff Physician Cardiology 04/03/23 Willem Suarez MD [address] 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 [place] [address] Surgeon Cardiac Surg 05/30/23 Lagging Machine Operator Relationship Specialty Start Date End Date Nano Nguyen MD [address] [place] [address] PCP - General Family Medicine 06/14/23 Shanice Larsen MD Primary Staff Physician Cardiology 04/03/23 Willem Suarez MD [address] [facility] [place] [address] Surgeon Cardiac Surg 05/30/23 Lagging Machine Operator Relationship Specialty Start Date End Date Nano Nguyen MD [address] [place] [address] PCP - General Family Medicine 06/14/23 Shanice Larsen MD Primary Staff Physician Cardiology 04/03/23 Willem Suarez MD [address] [facility] [place] [address] Surgeon Cardiac Surg 05/30/23 Lagging Machine Operator Relationship Specialty Start Date End Date Nano Nguyen MD [address] [place] [address] PCP - General Family Medicine 06/14/23 Shanice Larsen MD Primary Staff Physician Cardiology 04/03/23 Willem Suarez MD [address] [place] [address] Surgeon Cardiac Surg 05/30/23 Lagging Machine Operator Relationship Specialty Start Date End Date Nano Nguyen MD [address] [place] [address] PCP - General Family Medicine 06/14/23 Shanice Larsen MD Primary Staff Physician Cardiology 04/03/23 Willem Suarez MD [address] [place] [address] Surgeon Cardiac Surg 05/30/23 Lagging Machine Operator Relationship Specialty Start Date End Date Nano Nguyen MD [address] [place] [address] PCP - General Family Medicine 06/14/23 Shanice Larsen MD Primary Staff Physician Cardiology 04/03/23 Willem Suarez MD [address] [place] [address] Surgeon Cardiac Surg 05/30/23 Lagging Machine Operator Relationship Specialty Start Date End Date Nano Nguyen MD [address] [place] [address] PCP - General Family Medicine 06/14/23 Shanice Larsen MD Primary Staff Physician Cardiology 04/03/23 Willem Suarez MD [address] [place] [address] Surgeon Cardiac Surg 05/30/23 Lagging Machine Operator Relationship Specialty Start Date End Date Nano Nguyen MD [address] [place] [address] PCP - General Family Medicine 06/14/23 Shanice Larsen MD Primary Staff Physician Cardiology 04/03/23 Willem Suarez MD [address] [place] [address] Surgeon Cardiac Surg 05/30/23 Goals (unrecognized section [...] Contact ADMITTING Diagnoses 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) Type 2 diabetes mellitus without complication, without long-term current use of insulin (HCC) Procedures CORONARY ARTERY BYP W/VEIN & ARTERY GRAFT 1 VEIN BYPASS GRAFT ARTERY CORONARY ON-PUMP USING VENOUS GRAFT(S) AND ARTERIAL GRAFT(S) SINGLE VEIN GRAFT [facility] [address] [place] [address] Referral ID Status Reason Start Date Expiration Date Visits Re quested Visits Authorized [id number] 1 1 Reason Comments Radio Main J1 Specialty Diagnoses / Procedures Referred By Catherine michel Referred To Contact [facility] Diagnoses 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 Reason Comments Appointment Reason Comments dental clearance Specialty Diagnoses / Procedures Referred By Contac t Referred To Contact CT IMAGING Diagnoses Lung nodule Procedures CT CHEST WO IVCON DIAGNOSTIC COMPUTED TOMOGRAPHY THORAX W/O CNTRST Gloria Callahan MD [address] [place] [address] Ct Imaging [place] [address] Referral ID Status Reason Start Date Expiration Date V isits Requested Visits Authorized [id number] Closed Auto-Generate d Referral 09/02/2023 06/23/2024 1 1 Reason Comments Follow Up Shortness of Breath Specialty Diagnoses / Procedures Referred By Contac t Referred To Contact Diagnoses Follow-up exam Procedures CARDIOVASCULAR MEDICINE OP FOLLOW UP APPT ORDER OFFICE/OUTPATIENT ESTABLISHED HIGH MDM 40 MIN Pamela Laws APRN.[employer] [address] [place] [address] [address] [place] [address] Referral ID Status Reason Start Date Expiration Date V isits Requested Visits Authorized [id number] Closed PCP Requested Referral 10/01/2023 07/01/2024 1 1 Reason Comments Received Outside Medical Records [facility] ECHO REPORT Reason Comments Received Outside Medical Records CD [facility] Reason Comments Insurance Authorization Rep[employer] 140MG/ML auto-injectors Reason Comments Follow Up Specialty Diagnoses / Procedures Referred By Contac t Referred [facility] Diagnoses 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) PAD (peripheral artery disease) (HCC) Primary hypertension Hyperlipidemia, unspecified hyperlipidemia type Procedures CT CHEST WO IVCON DIAGNOSTIC COMPUTED TOMOGRAPHY THORAX W/O Shanice Patton MD [address] [place] [address] [place] [address] Referral ID Status Reason Start Date Expiration Date V isits Requested Visits Authorized [id number] Closed Auto-Generate d Referral 2024 06/23/2024 1 1 Reason Comments Results Reason Comments Chest Pain Source Comments (unrecognize d section and content) In the event this informatio n is protected by the Federal Confidentiality of Alcohol and Drug Abuse Patient Records regulations: The Federal rules restrict any use of the information to criminally investigate or prosecute any alcohol or drug abuse patient.[facility] the event this information is protected by the Federal Confidentiality of Alcohol and Drug Abuse Patient Records regulations: The Federal rules restrict any use of the information to criminally investigate or prosecute any alcohol or drug abuse patient.[facility] the event this information is protected by the Federal Confidentiality of Alcohol and Drug Abuse Patient Records regulations: The Federal rules restrict any use of the information to criminally investigate or prosecute any alcohol or drug abuse patient.[facility] the event this information is protected by the Federal Confidentiality of Alcohol and Drug Abuse Patient Records regulations: The Federal rules restrict any use of the information to criminally investigate or prosecute any alcohol or drug abuse patient.[facility] the event this information is protected by the Federal Confidentiality of Alcohol and Drug Abuse Patient Records regulations: The Federal rules restrict any use of the information to criminally investigate or prosecute any alcohol or drug abuse patient.[facility] Hospital[facility] the event this information is protected by the Federal Confidentiality of Alcohol and Drug Abuse Patient Records regulations: The Federal rules restrict any use of the information to criminally investigate or prosecute any alcohol or drug abuse patient.[facility] the event this information is protected by the Federal Confidentiality of Alcohol and Drug Abuse Patient Records regulations: The Federal rules restrict any use of the information to criminally investigate or prosecute any alcohol or drug abuse patient.[facility] Hospital[facility] the event this information is protected by the Federal Confidentiality of Alcohol and Drug Abuse Patient Records regulations: The Federal rules restrict any use of the information to criminally investigate or prosecute any alcohol or drug abuse patient.[facility] Hospital[facility] the event this information is protected by the Federal Confidentiality of Alcohol and Drug Abuse Patient Records regulations: The Federal rules restrict any use of the information to criminally investigate or prosecute any alcohol or drug abuse patient.[facility] HospitalIn the event this information is protected by the Federal Confidentiality of Alcohol and Drug Abuse Patient Records regulations: The Federal rules restrict any use of the information to criminally investigate or prosecute any alcohol or drug abuse patient.[facility] HospitalIn the event this information is protected by the Federal Confidentiality of Alcohol and Drug Abuse Patient Records regulations: The Federal rules restrict any use of the information to criminally investigate or prosecute any alcohol or drug abuse patient.[facility] HospitalIn the event this information is protected by the Federal Confidentiality of Alcohol and Drug Abuse Patient Records regulations: The Federal rules restrict any use of the information to criminally investigate or prosecute any alcohol or drug abuse patient.[facility] HospitalIn the event this information is protected by the Federal Confidentiality of Alcohol and Drug Abuse Patient Records regulations: The Federal rules restrict any use of the information to criminally investigate or prosecute any alcohol or drug abuse patient.[facility] HospitalIn the event this information is protected by the Federal Confidentiality of Alcohol and Drug Abuse Patient Records regulations: The Federal rules restrict any use of the information to criminally investigate or prosecute any alcohol or drug abuse patient.[facility] HospitalIn the event this information is protected by the Federal Confidentiality of Alcohol and Drug Abuse Patient Records regulations: The Federal rules restrict any use of the information to criminally investigate or prosecute any alcohol or drug abuse patient.[facility] HospitalIn the event this information is protected by the Federal Confidentiality of Alcohol and Drug Abuse Patient Records regulations: The Federal rules restrict any use of the information to criminally investigate or prosecute any alcohol or drug abuse patient.[facility] HospitalIn the event this information is protected by the Federal Confidentiality of Alcohol and Drug Abuse Patient Records regulations: The Federal rules restrict any use of the information to criminally investigate or prosecute any alcohol or drug abuse patient.[facility] HospitalIn the event this information is protected by the Federal Confidentiality of Alcohol and Drug Abuse Patient Records regulations: The Federal rules restrict any use of the information to criminally investigate or prosecute any alcohol or drug abuse patient.[facility] HospitalIn the event this information is protected by the Federal Confidentiality of Alcohol and Drug Abuse Patient Records regulations: The Federal rules restrict any use of the information to criminally investigate or prosecute any alcohol or drug abuse patient.[facility] HospitalIn the event this information is protected by the Federal Confidentiality of Alcohol and Drug Abuse Patient Records regulations: The Federal rules restrict any use of the information to criminally investigate or prosecute any alcohol or drug abuse patient.[facility] HospitalIn the event this information is protected by the Federal Confidentiality of Alcohol and Drug Abuse Patient Records regulations: The Federal rules restrict any use of the information to criminally investigate or prosecute any alcohol or drug abuse patient.[facility] HospitalIn the event this information is protected by the Federal Confidentiality of Alcohol and Drug Abuse Patient Records regulations: The Federal rules restrict any use of the information to criminally investigate or prosecute any alcohol or drug abuse patient.[facility] HospitalIn the event this information is protected by the Federal Confidentiality of Alcohol and Drug Abuse Patient Records regulations: The Federal rules restrict any use of the information to criminally investigate or prosecute any alcohol or drug abuse patient.[facility] HospitalIn the event this information is protected by the Federal Confidentiality of Alcohol and Drug Abuse Patient Records regulations: The Federal rules restrict any use of the information to criminally investigate or prosecute any alcohol or drug abuse patient.[facility] HospitalIn the event this information is protected by the Federal Confidentiality of Alcohol and Drug Abuse Patient Records regulations: The Federal rules restrict any use of the information to criminally investigate or prosecute any alcohol or drug abuse patient.[facility] HospitalIn the event this information is protected by the Federal Confidentiality of Alcohol and Drug Abuse Patient Records regulations: The Federal rules restrict any use of the information to criminally investigate or prosecute any alcohol or drug abuse patient.[facility] HospitalIn the event this information is protected by the Federal Confidentiality of Alcohol and Drug Abuse Patient Records regulations: The Federal rules restrict any use of the information to criminally investigate or prosecute any alcohol or drug abuse patient.[facility] HospitalIn the event this information is protected by the Federal Confidentiality of Alcohol and Drug Abuse Patient Records regulations: The Federal rules restrict any use of the information to criminally investigate or prosecute any alcohol or drug abuse patient.[facility] HospitalIn the event this information is protected by the Federal Confidentiality of Alcohol and Drug Abuse Patient Records regulations: The Federal rules restrict any use of the information to criminally investigate or prosecute any alcohol or drug abuse patient.[facility] HospitalIn the event this information is protected by the Federal Confidentiality of Alcohol and Drug Abuse Patient Records regulations: The Federal rules restrict any use of the information to criminally investigate or prosecute any alcohol or drug abuse patient.[facility] HospitalIn the event this information is protected by the Federal Confidentiality of Alcohol and Drug Abuse Patient Records regulations: The Federal rules restrict any use of the information to criminally investigate or prosecute any alcohol or drug abuse patient.[facility] HospitalIn the event this information is protected by the Federal Confidentiality of Alcohol and Drug Abuse Patient Records regulations: The Federal rules restrict any use of the information to criminally investigate or prosecute any alcohol or drug abuse patient.[facility] HospitalIn the event this information is protected by the Federal Confidentiality of Alcohol and Drug Abuse Patient Records regulations: The Federal rules restrict any use of the information to criminally investigate or prosecute any alcohol or drug abuse patient.[facility] HospitalIn the event this information is protected by the Federal Confidentiality of Alcohol and Drug Abuse Patient Records regulations: The Federal rules restrict any use of the information to criminally investigate or prosecute any alcohol or drug abuse patient.[facility] HospitalIn the event this information is protected by the Federal Confidentiality of Alcohol and Drug Abuse Patient Records regulations: The Federal rules restrict any use of the information to criminally investigate or prosecute any alcohol or drug abuse patient.[facility] HospitalIn the event this information is protected by the Federal Confidentiality of Alcohol and Drug Abuse Patient Records regulations: The Federal rules restrict any use of the information to criminally investigate or prosecute any alcohol or drug abuse patient.[facility] HospitalIn the event this information is protected by the Federal Confidentiality of Alcohol and Drug Abuse Patient Records regulations: The Federal rules restrict any use of the information to criminally investigate or prosecute any alcohol or drug abuse patient.[facility] HospitalIn the event this information is protected by the Federal Confidentiality of Alcohol and Drug Abuse Patient Records regulations: The Federal rules restrict any use of the information to criminally investigate or prosecute any alcohol or drug abuse patient.[facility] HospitalIn the event this information is protected by the Federal Confidentiality of Alcohol and Drug Abuse Patient Records regulations: The Federal rules restrict any use of the information to criminally investigate or prosecute any alcohol or drug abuse patient.[facility] HospitalIn the event this information is protected by the Federal Confidentiality of Alcohol and Drug Abuse Patient Records regulations: The Federal rules restrict any use of the information to criminally investigate or prosecute any alcohol or drug abuse patient.[facility] HospitalIn the event this information is protected by the Federal Confidentiality of Alcohol and Drug Abuse Patient Records regulations: The Federal rules restrict any use of the information to criminally investigate or prosecute any alcohol or drug abuse patient.[facility] FOR RECORDS PERTAINING TO PATIENTS WHO [...] BE BASED ON THE PRIMARY CLINICAL RECORDS. [facility] provides no warranty or guarantee of the accuracy or completeness of information in this document.
== END 2024-06-18 09:43 | disposition home or self-care (01) ==
LOC: MRI 09:42
PROVIDERS: PCP Family Medicine; Visit Provider Family Medicine
DX: M54.50 Low back pain, unspecified (principal); M48.56XA Collapsed vertebra, not elsewhere classified, lumbar region, initial encounter for fracture; M51.369 Other intervertebral disc degeneration, lumbar region without mention of lumbar back pain or lower extremity pain
CPT/HCPCS: 72148

== ENCOUNTER 2024-06-23 11:30 | Outpatient (OUT) | payer OTHER, SELFPAY ==
--- OUTSIDE RECORDS SUMMARY | 2024-06-23 11:35 | XMS_ITS | CCD ---
Author Organization [facility]iniSyak Care Team Providers Care In Home Nanny Name Role Phone Naon Nguyen Primary Care Unavailable Jim Gao II [...] MCGILL Admitting Unavailable Shawn Graff Consulting Unavailable [place], DR NISA Lainez Consulting Unavailable ROBERTAY ., [...] Provider MD Nano Nguyen Primary Care Provider [phone] Patrizia Melendrez Unavailable Patrizia Melendrez Attending Unavailable Hoy, Nano M Primary Care Unavailable Patrizia Melendrez Admitting Unavailable Patrizia Melendrez Attending Unavailable Honelda, Nano M Primary Care Unavailable Patrizia Melendrez Admitting Unavailable Shanice Larsen MD Unavailable [phone] Willem Suarez MD Unavailable Shanice Larsen MD Unavailable Unavailable Nano Nguyen MD Primary Care Provider [phone] Shanice Larsen MD Unavailable [phone] Nano Nguyen MD Primary Care Provider [phone] NANO NGUYEN Primary Care Unavailable HOY, NANO M Referring Unavailable HOY, NANO M Primary Care Unavailable HOY, NANO M Referring Unavailable WENDY, NANO M Primary Care Unavailable Nano Nguyen MD Primary Care Provider [phone] TRIPP HUTSON Attending Unavailable HOY, NANO M [...] Care Unavailable AMBANI, PAPA Referring Unavailable HOY, NAON M Primary Care Unavailable SELF Referring Unavailable AMBANI, PAPA Attending Unavailable HOY, NANO M Primary Care Unavailable BARZILAI, BENICO Referring Unavailable Allergies Allergy Classification Reported Allergen(s) Allergy Type Date of Onset Reaction(s) Facility (20 sources) Tetracycline; Translations: [tetracycline] Drug Allergy 3 Unknown, GI Upset [facility] (2 sources) rosuvastatin; Translations: [ROSUVASTATIN] Drug Allergy 0 [facility] (1 source) SITagliptin Drug Allergy 0 [facility] (1 source) Tetracycline Drug Allergy [facility] (3 sources) House dust mite Drug allergy Unknown [facility] Other (4 sources) Cat dander; Translations: [CAT DANDER] Drug allergy 3 Unknown [facility] (1 source) Tetracycline Drug Allergy 3 [facility] (20 sources) [place] house dust mite allergenic extract / house dust mite allergenic extract; Translations: [ALLERG XT,D.FARINAE-D.P TERONYS] Drug Allergy 3 Itching [facility] (20 sources) Cat Hair Extract; Translations: [CAT HAIR STANDARDIZED ALLERGENIC EXTRACT] Drug Allergy 3 Itching [facility] (20 sources) house dust allergenic extract; Translations: [HOUSE DUST] Drug Allergy 3 Itching [facility] (20 sources) rosuvastatin Drug Allergy 0 Unknown [facility] (20 sources) SITagliptin; Translations: [SITAGLIPTIN] Drug Allergy 0 Unknown [facility] (11 sources) Miconazole; Translations: [MICONAZOLE] Drug Allergy 4 Itching, Swelling [facility] Medications Current Medications Medication Drug Class(es) Dates [...] hours as needed (for mild surgical pain). [id number] 200 actuat albuterol 0.09 mg/actuat metered dose [...] mouth once daily. Take 1 tablet by [facility] once daily. Calcium (2 sources) Phosphate [...] 0 03/07/2023 Suspended take [address] [facility] every twelve hours Carvedilol 6.25 [...] 20, 2023 12:00am take [address] [facility] every twenty-four hours Vitamin D3 [...] Comment on above: [facility] docusate sodium 100 mg oral capsule (20 sources) Start: 08-02-2023 take 1 capsule by mouth twice daily docusate sodium (COLACE) 100 mg capsule Take 1 capsule by mouth two times a day. 30 capsule 08/02/2023 Active Comment on above: Take 1 capsule by mo [facility] two times a day. 0.5 [...] evolocumab 140 mg/mL subcutaneous pen injector (REPATHA ClickabilityCLICK) Inject 140 mg subcutaneously every 2 weeks. [...] on above: Take 2 tablets by mo [facility] once daily for 14 days. [...] Start: 04-12-2022 take 2 tablets by mo [facility] once daily metFORMIN HCl - [...] Start: 02-10-2021 take 2 tablets by mo [facility] once daily oxyBUTYnin Chloride 5 [...] 2023 12:00am take 1 capsule by mo [facility] once daily at mealtime Potassium [...] on above: Take 1 capsule by mo [facility] once daily. Completed/Discontinued Medications Medication [...] artery disease; Translations: [Atherosclerotic heart disease of [place] coronary artery without angina pectoris] Onset: 05-28-2023 [...] Reference Range Facility CNOVon 04-28-[address] [facility] CNPTOUTREACHon 02-26-[address] [facility] CNPNon 02-25-[address] [facility] CT CHEST WO IVCONon 02-18-20 CT CHEST WO IVCON Normal [facility] CNPTOUTREACHon 02-04-[address] [facility] CNOVon 01-28-[address] [facility] PVR LEG LOVE VAS LABon 2023 PVR LEG LOVE VAS LAB Normal [facility] CNOVon 01-16-[address] [facility] ECG COMPLETEon 01-16-[address] [facility] CNPNon 01-01-[address] [facility] CNPTOUTREACHon 10-30-[address] [facility] CNPNon 10-25-[address] [facility] CNPTOUTREACHon 10-24-[address] [facility] CNPNon 10-18-[address] [facility] CNPNon 10-17-[address] [facility] CNOVon 10-10-[address] [facility] CT CHEST WO IVCONon 10-10-19 CT CHEST WO IVCON Normal [facility] ECG COMPLETEon 10-10-[address] [facility] CNPNon 09-23-[address] [facility] CNPTOUTREACHon 09-03-[address] [facility] CNPNon 08-23-[address] [facility] CNPNon 08-08-[address] [facility] CBC panel Auto (Bld)on 08-07 Erythrocyte distribution width (RBC) [Ratio] 13.2 % Normal 11.5-15.0 [facility] Comment on above: Order Comment: Speci men Type: BLOOD SPECIMENOrdering Facility: [facility] Address: [address] [place] [address] Performed By: #### 5 8410-2 ####[facility] LABIA [id number] [place] [address] [place] Hematocrit (Bld) [Volume fraction] 32.4 % Low 36.0-46.0 [facility] Comment on above: Order Comment: Speci men Type: BLOOD SPECIMENOrdering Facility: [facility] Address: [address] [place] [address] Performed By: #### 5 8410-2 ####[facility] [id number] [place] [address] [place] Hemoglobin (Bld) [Mass/Vol] 10.4 g/dL Low 11.5-15.5 [facility] Comment on above: Order Comment: Speci men Type: BLOOD SPECIMENOrdering Facility: [facility] Address: [address] [place] [address] Performed By: #### 5 8410-2 ####[facility] LABIA [id number] [place] [address] [place] MCH (RBC) [Entitic mass] 31.0 pg Normal 26.0-34.0 [facility] Comment on above: Order Comment: Speci men Type: BLOOD SPECIMENOrdering Facility: [facility] Address: [address] [place] [address] Performed By: #### 5 8410-2 ####[facility] LABIA [id number] [place] [address] [place] MCHC (RBC) [Mass/Vol] 32.1 g/dL Normal 30.5-36.0 [facility] Comment on above: Order Comment: Speci men Type: BLOOD SPECIMENOrdering Facility: [facility] Address: [address] [place] [address] Performed By: #### 5 8410-2 ####[facility] LABCLIA [id number] [place] [address] [place] MCV (RBC) [Entitic vol] 96.4 fL Normal 80.0-100.0 [facility] Comment on above: Order Comment: Speci men Type: BLOOD SPECIMENOrdering Facility: [facility] Address: [address] [place] [address] Performed By: #### 5 8410-2 ####[facility] LABIA [id number] [place] [address] [place] Nucleated RBC (Bld) [#/Vol] 10*3/uL Normal <0.01 [facility] Comment on above: Order Comment: Speci men Type: BLOOD SPECIMENOrdering Facility: [facility] Address: [address] [place] [address] Performed By: #### 5 8410-2 ####[facility] LABIA [id number] [place] [address] [place] Platelet mean volume (Bld) [Entitic vol] 9.3 fL Normal 9.0-12.7 [facility] Comment on above: Order Comment: Speci men Type: BLOOD SPECIMENOrdering Facility: [facility] Address: [address] [place] [address] Performed By: #### 5 8410-2 ####[facility] LABIA [id number] [place] [address] [place] Platelets (Bld) [#/Vol] 392 10*3/uL Normal 150-400 [facility] Comment on above: Order Comment: Speci men Type: BLOOD SPECIMENOrdering Facility: [facility] Address: [address] [place] [address] Performed By: #### 5 8410-2 ####[facility] LABIA [id number] [place] [address] [place] RBC (Bld) [#/Vol] 3.36 10*6/uL Low 3.90-5.20 [facility] Comment on above: Order Comment: Speci men Type: BLOOD SPECIMENOrdering Facility: [facility] Address: [address] [place] [address] Performed By: #### 5 8410-2 ####[facility] LABCLIA [id number] [place] [address] [place] WBC (Bld) [#/Vol] 7.17 10*3/uL Normal 3.70-11.00 [facility] Comment on above: Order Comment: Speci men Type: BLOOD SPECIMENOrdering Facility: [facility] Address: [address] [place] [address] Performed By: #### 5 8410-2 ####[facility] LABCLIA [id number] [place] [address] [place] CNOVon 08-07-[address] [facility] Comprehensive metabolic 2000 panelon 08-07-2023 Albumin [Mass/Vol] 3.8 g/dL Low 3.9-4.9 [facility] Comment on above: Order Comment: Speci men Type: BLOOD SPECIMENOrdering Facility: [facility] Address: [address] [place] [address] Performed By: #### 2 4323-8 ####[facility] LABCLIA [id number] [place] [address] [place] ALP [Catalytic activity/Vol] 93 U/L Normal 34-123 [facility] Comment on above: Order Comment: Speci men Type: BLOOD SPECIMENOrdering Facility: [facility] Address: [address] [place] [address] Performed By: #### 2 4323-8 ####[facility] LABCLIA [id number] [place] [address] [place] ALT [Catalytic activity/Vol] 21 U/L Normal 7-38 [facility] Comment on above: Order Comment: Speci men Type: BLOOD SPECIMENOrdering Facility: [facility] Address: [address] [place] [id number] Performed By: #### 2 4323-8 ####[facility] LABCLIA [id number] [place] [id number] [place] Anion gap [Moles/Vol] 14 mmol/L Normal 9-18 [facility] Comment on above: Order Comment: Speci men Type: BLOOD SPECIMENOrdering Facility: [facility] Address: [address] [place] [address] Performed By: #### 2 4323-8 ####[facility] LABCLIA [id number] [place] [address] [place] AST [Catalytic activity/Vol] 14 U/L Normal 13-35 [facility] Comment on above: Order Comment: Speci men Type: BLOOD SPECIMENOrdering Facility: [facility] Address: [address] [place] [address] Performed By: #### 2 4323-8 ####[facility] LABCLIA [id number] [place] [address] [place] Bilirubin [Mass/Vol] 0.3 mg/dL Normal 0.2-1.3 [facility] Comment on above: Order Comment: Speci men Type: BLOOD SPECIMENOrdering Facility: [facility] Address: [address] [place], [place] [address] Performed By: #### 2 4323-8 ####[facility] LABCLIA [id number] [place] [address] [place] Calcium [Mass/Vol] 10.3 mg/dL High 8.5-10.2 [facility] Comment on above: Order Comment: Speci men Type: BLOOD SPECIMENOrdering Facility: [facility] Address: [address] [place] [address] Performed By: #### 2 4323-8 ####[facility] LABCLIA [id number] [place] [address] [place] Chloride [Moles/Vol] 95 mmol/L Low 97-105 [facility] Comment on above: Order Comment: Speci men Type: BLOOD SPECIMENOrdering Facility: [facility] Address: [address] [place] [address] Performed By: #### 2 4323-8 ####[facility] LABCLIA [id number] [place] [address] [place] CO2 [Moles/Vol] 26 mmol/L Normal 22-30 [facility] Comment on above: Order Comment: Speci men Type: BLOOD SPECIMENOrdering Facility: [facility] Address: [address] [place] [address] Performed By: #### 2 4323-8 ####[facility] LABIA [id number] [place] [address] [place] Creatinine [Mass/Vol] 0.90 mg/dL Normal 0.58-0.96 [facility] Comment on above: Order Comment: Speci men Type: BLOOD SPECIMENOrdering Facility: [facility] Address: [address] [place] [address] Performed By: #### 2 4323-8 ####[facility] LABIA [id number] [place] [address] [place] Creatinine and Glomerular filtration rate.predicted panel (S/P/Bld) 71 mL/min/1.73m??? Normal >=60 [facility] Comment on above: Order Comment: Speci men Type: BLOOD SPECIMENOrdering Facility: [facility] Address: [address] [place] [address] Result Comment: Annelise mated Glomerular Filtration Rate [...] actual GFR. Performed By: #### 2 4323-8 ####[facility] LABIA [id number] [place] [address] [place] Glucose [Mass/Vol] 180 mg/dL High 74-99 [facility] Comment on above: Order Comment: Speci men Type: BLOOD SPECIMENOrdering Facility: [facility] Address: [address] [place] [address] Result Comment: The [place] Diabetes Association (ADA) provides guidance for cutoff [...] Standards of Medical Care in Diabetes 2016, [place] [employer] Association. Diabetes Care. 2016.39(Suppl 1). Performed By: #### 2 4323-8 ####[facility] LABIA [id number] [place] [address] [place] Potassium [Moles/Vol] 4.1 mmol/L Normal 3.7-5.1 [facility] Comment on above: Order Comment: Speci men Type: BLOOD SPECIMENOrdering Facility: [facility] Address: [address] [place] [address] Performed By: #### 2 4323-8 ####[facility] [id number] [place] [id number] [place] Protein [Mass/Vol] 6.6 g/dL Normal 6.3-8.0 [facility] Comment on above: Order Comment: Speci men Type: BLOOD SPECIMENOrdering Facility: [facility] Address: [address] [place] [address] Performed By: #### 2 4323-8 ####[facility] LABCLIA [id number] [place] [address] [place] Sodium [Moles/Vol] 135 mmol/L Low 136-144 [facility] Comment on above: Order Comment: Speci men Type: BLOOD SPECIMENOrdering Facility: [facility] Address: [address] [place] [address] Performed By: #### 2 4323-8 ####[facility] LABCLIA [id number] [place] [address] [place] Urea nitrogen [Mass/Vol] 19 mg/dL Normal 7-21 [facility] Comment on above: Order Comment: Speci men Type: BLOOD SPECIMENOrdering Facility: [facility] Address: [address] [place] [address] Performed By: #### 2 4323-8 ####[facility] LABIA [id number] [place] [id number] [place] ECG COMPLETEon 08-07-[address] [facility] XR CHEST 2V FRONTAL/LATon XR CHEST 2V FRONTAL/LAT Normal [facility] XR Chest 2 [facility] CNPNon 08-06-[address] [facility] ALLIED HEALTHon 08-02-[address] [facility] CASE MANAGEMon 08-02-[address] [facility] CASE MANAGEM Normal [facility] CBC panel Auto (Bld)on 08-02 Erythrocyte distribution width (RBC) [Ratio] 12.1 % Normal 11.5-15.0 [facility] Comment on above: Order Comment: Speci men Type: BLOOD SPECIMENOrdering Facility: [facility] Address: [address] [place] [address] Performed By: #### 5 8410-2 ####[facility] LABIA [id number] [place] [address] [place] Hematocrit (Bld) [Volume fraction] 26.9 % Low 36.0-46.0 [facility] Comment on above: Order Comment: Speci men Type: BLOOD SPECIMENOrdering Facility: [facility] Address: [address] [place] [address] Performed By: #### 5 8410-2 ####[facility] LABCLIA [id number] [place] [address] [place] Hemoglobin (Bld) [Mass/Vol] 9.1 g/dL Low 11.5-15.5 [facility] Comment on above: Order Comment: Speci men Type: BLOOD SPECIMENOrdering Facility: [facility] Address: [address] [place] [address] Performed By: #### 5 8410-2 ####[facility] LABCLIA [id number] [place] [address] [place] MCH (RBC) [Entitic mass] 31.3 pg Normal 26.0-34.0 [facility] Comment on above: Order Comment: Speci men Type: BLOOD SPECIMENOrdering Facility: [facility] Address: [address] [place] [address] Performed By: #### 5 8410-2 ####[facility] LABIA [id number] [place] [address] [place] MCHC (RBC) [Mass/Vol] 33.8 g/dL Normal 30.5-36.0 [facility] Comment on above: Order Comment: Speci men Type: BLOOD SPECIMENOrdering Facility: [facility] Address: [address] [place] [address] Performed By: #### 5 8410-2 ####[facility] LABCLIA [id number] [place] [address] [place] MCV (RBC) [Entitic vol] 92.4 fL Normal 80.0-100.0 [facility] Comment on above: Order Comment: Speci men Type: BLOOD SPECIMENOrdering Facility: [facility] Address: [address] [place] [address] Performed By: #### 5 8410-2 ####[facility] LABIA [id number] [place] [address] [place] Nucleated RBC (Bld) [#/Vol] 10*3/uL Normal <0.01 [facility] Comment on above: Order Comment: Speci men Type: BLOOD SPECIMENOrdering Facility: [facility] Address: [address] [place] [address] Performed By: #### 5 8410-2 ####[facility] LABIA [id number] [place] [address] [place] Platelet mean volume (Bld) [Entitic vol] 10.0 fL Normal 9.0-12.7 [facility] Comment on above: Order Comment: Speci men Type: BLOOD SPECIMENOrdering Facility: [facility] Address: [address] [place] [address] Performed By: #### 5 8410-2 ####[facility] LABIA [id number] [place] [address] [place] Platelets (Bld) [#/Vol] 224 10*3/uL Normal 150-400 [facility] Comment on above: Order Comment: Speci men Type: BLOOD SPECIMENOrdering Facility: [facility] Address: [address] [place] [address] Performed By: #### 5 8410-2 ####[facility] LABIA [id number] [place] [address] [place] RBC (Bld) [#/Vol] 2.91 10*6/uL Low 3.90-5.20 [facility] Comment on above: Order Comment: Speci men Type: BLOOD SPECIMENOrdering Facility: [facility] Address: [address] [place] [address] Performed By: #### 5 8410-2 ####[facility] LABCLIA [id number] [facility] [place] [address] [place] WBC (Bld) [#/Vol] 6.35 10*3/uL Normal 3.70-11.00 [facility] Comment on above: Order Comment: Speci men Type: BLOOD SPECIMENOrdering Facility: [facility] Address: [address] [place] [address] Performed By: #### 5 8410-2 ####[facility] LABCLIA [id number] [place] [address] [place] Comprehensive metabolic 2000 panelon 08-02-2023 Albumin [Mass/Vol] 3.3 g/dL Low 3.9-4.9 [facility] Comment on above: Order Comment: Speci men Type: BLOOD SPECIMENOrdering Facility: [facility] Address: [address] [place] [address] Performed By: #### 2 4323-8, ####[facility] LABCLIA [id number] [place] [address] [place] ALP [Catalytic activity/Vol] 60 U/L Normal 34-123 [facility] Comment on above: Order Comment: Speci men Type: BLOOD SPECIMENOrdering Facility: [facility] Address: [address] [place] [address] Performed By: #### 2 4323-8, ####[facility] LABCLIA [id number] [facility] [place] [id number] [place] ALT [Catalytic activity/Vol] 14 U/L Normal 7-38 [facility] Comment on above: Order Comment: Speci men Type: BLOOD SPECIMENOrdering Facility: [facility] Address: [address] [place] [address] Performed By: #### 2 4323-8, 61885-8 ####[facility] LABCLIA [id number] [place] [address] [place] Anion gap [Moles/Vol] 9 mmol/L Normal 9-18 [facility] Comment on above: Order Comment: Speci men Type: BLOOD SPECIMENOrdering Facility: [facility] Address: [address] [place] [address] Performed By: #### 2 4323-8, ####[facility] LABCLIA [id number] [place] [address] [place] AST [Catalytic activity/Vol] 19 U/L Normal 13-35 [facility] Comment on above: Order Comment: Speci men Type: BLOOD SPECIMENOrdering Facility: [facility] Address: [address] [place] [address] Performed By: #### 2 4323-8, ####[facility] LABCLIA [id number] [place] [address] [place] Bilirubin [Mass/Vol] 0.5 mg/dL Normal 0.2-1.3 [facility] Comment on above: Order Comment: Speci men Type: BLOOD SPECIMENOrdering Facility: [facility] Address: [address] [place] [address] Performed By: #### 2 4323-8, ####[facility] LABCLIA [id number] [place] [address] [place] Calcium [Mass/Vol] 9.8 mg/dL Normal 8.5-10.2 [facility] Comment on above: Order Comment: Speci men Type: BLOOD SPECIMENOrdering Facility: [facility] Address: [address] [place] [address] Performed By: #### 2 4323-8, ####[facility] LABCLIA [id number] [place] [id number] [place] Chloride [Moles/Vol] 93 mmol/L Low 97-105 [facility] Comment on above: Order Comment: Speci men Type: BLOOD SPECIMENOrdering Facility: [facility] Address: [address] [place] [address] Performed By: #### 2 4323-8, ####[facility] LABCLIA [id number] [place] [address] [place] CO2 [Moles/Vol] 26 mmol/L Normal 22-30 [facility] Comment on above: Order Comment: Speci men Type: BLOOD SPECIMENOrdering Facility: [facility] Address: [address] [place] [address] Performed By: #### 2 4323-8, ####[facility] LABCLIA [id number] [place] [address] [place] Creatinine [Mass/Vol] 0.55 mg/dL Low 0.58-0.96 [facility] Comment on above: Order Comment: Speci men Type: BLOOD SPECIMENOrdering Facility: [facility] Address: [address] [place] [address] Performed By: #### 2 4323-8, ####[facility] LABCLIA [id number] [address] [place] Creatinine and Glomerular filtration rate.predicted panel (S/P/Bld) 102 mL/min/1.73m??? Normal >=60 [facility] [facility] Comment on above: Order Comment: Speci men Type: BLOOD SPECIMENOrdering Facility: [facility] Address: [address] [place] [address] Result Comment: Anneilse mated Glomerular Filtration Rate (eGFR) is calculated [...] actual GFR. Performed By: #### 2 4323- ####[facility] LABCLIA [id number] [address] [address] [place] Glucose [Mass/Vol] 224 mg/dL High 74-99 [facility] Comment on above: Order Comment: Speci men Type: BLOOD SPECIMENOrdering Facility: [facility] Address: [address] [place] [address] Result Comment: The [place] [employer] (ADA) provides guidance for cutoff [...] Standards of Medical Care in Diabetes 2016, [place] [employer]. Diabetes Care. 2016.39(Suppl 1). Performed By: #### 2 4328, ####[facility] LABIA [id number] [place] [address] [place] Potassium [Moles/Vol] 4.4 mmol/L Normal 3.7-5.1 [facility] Comment on above: Order Comment: Speci men Type: BLOOD SPECIMENOrdering Facility: [facility] Address: [address] [place] [address] Performed By: #### 2 4328, ####[facility] LABIA [id number] [place] [address] [place] Protein [Mass/Vol] 6.2 g/dL Low 6.3-8.0 [facility] Comment on above: Order Comment: Speci men Type: BLOOD SPECIMENOrdering Facility: [facility] Address: [address] [place] [address] Performed By: #### 2 4323-01, ####[facility] LABCLIA [id number] [address] [address] [place] Sodium [Moles/Vol] 128 mmol/L Low 136-144 [facility] Comment on above: Order Comment: Speci men Type: BLOOD SPECIMENOrdering Facility: [facility] Address: [address] [place] [address] Performed By: #### 2 4323-8, ####[facility] LABCLIA [id number] [place] [id number] [place] Urea nitrogen [Mass/Vol] 13 mg/dL Normal 7-21 [facility] Comment on above: Order Comment: Speci men Type: BLOOD SPECIMENOrdering Facility: [facility] Address: [address] [place] [address] Performed By: #### 2 43238, ####[facility] LABCLIA [id number] [place] [id number] [place] ECG COMPLETEon 08-02-[address] [facility] Magnesium SerPl-mCncon 08-02 Magnesium [Mass/Vol] 2.0 mg/dL Normal 1.7-2.3 [facility] Comment on above: Order Comment: Speci men Type: BLOOD SPECIMENOrdering Facility: [facility] Address: [address] [place] [address] Performed By: #### 2 4323-8, ####[facility] LABCLIA [id number] [address] [address] [place] THERAPY NTon 08-02-[address] [facility] THERAPY NT Normal [facility] XR CHEST 1V FRONTALon 2023 XR CHEST 1V FRONTAL Normal [facility] CASE MANAGEMon 08-01-[address] [facility] CBC panel Auto (Bld)on 08-01 Erythrocyte distribution width (RBC) [Ratio] 12.0 % Normal 11.5-15.0 [facility] Comment on above: Order Comment: Speci men Type: BLOOD SPECIMENOrdering Facility: [facility] Address: [address] [place] [address] Performed By: #### 5 8410-2 ####[facility] LABIA [id number] [place] [address] [place] Hematocrit (Bld) [Volume fraction] 30.5 % Low 36.0-46.0 [facility] Comment on above: Order Comment: Speci men Type: BLOOD SPECIMENOrdering Facility: [facility] Address: [address] [place] [address] Performed By: #### 5 8410-2 ####[facility] LABIA [id number] [place] [address] [place] Hemoglobin (Bld) [Mass/Vol] 10.5 g/dL Low 11.5-15.5 [facility] Comment on above: Order Comment: Speci men Type: BLOOD SPECIMENOrdering Facility: [facility] Address: [address] [place] [address] Performed By: #### 5 8410-2 ####[facility] LABIA [id number] [place] [address] [place] MCH (RBC) [Entitic mass] 31.4 pg Normal 26.0-34.0 [facility] Comment on above: Order Comment: Speci men Type: BLOOD SPECIMENOrdering Facility: [facility] Address: [address] [place] [address] Performed By: #### 5 8410-2 ####[facility] LABIA [id number] [place] [address] [place] MCHC (RBC) [Mass/Vol] 34.4 g/dL Normal 30.5-36.0 [facility] Comment on above: Order Comment: Speci men Type: BLOOD SPECIMENOrdering Facility: [facility] Address: [address] [place] [address] Performed By: #### 5 8410-2 ####[facility] LABCLIA [id number] [place] [address] [place] MCV (RBC) [Entitic vol] 91.3 fL Normal 80.0-100.0 [facility] Comment on above: Order Comment: Speci men Type: BLOOD SPECIMENOrdering Facility: [facility] Address: [address] [place] [address] Performed By: #### 5 8410-2 ####[facility] LABIA [id number] [place] [address] [place] Nucleated RBC (Bld) [#/Vol] 10*3/uL Normal <0.01 [facility] Comment on above: Order Comment: Speci men Type: BLOOD SPECIMENOrdering Facility: [facility] Address: [address] [place] [address] Performed By: #### 5 8410-2 ####[facility] LABIA [id number] [place] [address] [place] Platelet mean volume (Bld) [Entitic vol] 9.9 fL Normal 9.0-12.7 [facility] Comment on above: Order Comment: Speci men Type: BLOOD SPECIMENOrdering Facility: [facility] Address: [address] [place] [address] Performed By: #### 5 8410-2 ####[facility] LABCLIA [id number] [place] [address] [place] Platelets (Bld) [#/Vol] 208 10*3/uL Normal 150-400 [facility] Comment on above: Order Comment: Speci men Type: BLOOD SPECIMENOrdering Facility: [facility] Address: [address] [place] [address] Performed By: #### 5 8410-2 ####[facility] LABCLIA [id number] [place] [address] [place] RBC (Bld) [#/Vol] 3.34 10*6/uL Low 3.90-5.20 [facility] Comment on above: Order Comment: Speci men Type: BLOOD SPECIMENOrdering Facility: [facility] Address: [address] [place] [address] Performed By: #### 5 8410-2 ####[facility] LABIA [id number] [place] [address] [place] WBC (Bld) [#/Vol] 9.03 10*3/uL Normal 3.70-11.00 [facility] Comment on above: Order Comment: Speci men Type: BLOOD SPECIMENOrdering Facility: [facility] Address: [address] [place] [address] Performed By: #### 5 8410-2 ####[facility] LABIA [id number] [place] [address] [place] CNDSon 08-01-[address] [facility] Comprehensive metabolic 2000 panelon 08-01-2023 Albumin [Mass/Vol] 3.3 g/dL Low 3.9-4.9 [facility] Comment on above: Order Comment: Speci men Type: BLOOD SPECIMENOrdering Facility: [facility] Address: [address] [place] [address] Performed By: #### 1 9123-9, 36569-0 ####[facility] LABCLIA [id number] [place] [address] [place] ALP [Catalytic activity/Vol] 60 U/L Normal 34-123 [facility] Comment on above: Order Comment: Speci men Type: BLOOD SPECIMENOrdering Facility: [facility] Address: [address] [place] [address] Performed By: #### 1 9123-9, 88410-0 ####[facility] LABCLIA [id number] [place] [address] [place] ALT [Catalytic activity/Vol] 9 U/L Normal 7-38 [facility] Comment on above: Order Comment: Speci men Type: BLOOD SPECIMENOrdering Facility: [facility] Address: [address] [place] [address] Performed By: #### 1 9123-9, 98493-7 ####[facility] LABCLIA [id number] [place] [address] [place] Anion gap [Moles/Vol] 9 mmol/L Normal 9-18 [facility] Comment on above: Order Comment: Speci men Type: BLOOD SPECIMENOrdering Facility: [facility] Address: [address] [place] [address] Performed By: #### 1 9123-9, 58658-2 ####[facility] LABCLIA [id number] [place] [address] [place] AST [Catalytic activity/Vol] 9 U/L Low 13-35 [facility] Comment on above: Order Comment: Speci men Type: BLOOD SPECIMENOrdering Facility: [facility] Address: [address] [place] [address] Performed By: #### 1 9123-9, 99699-2 ####[facility] LABCLIA [id number] [place] [address] [place] Bilirubin [Mass/Vol] 0.6 mg/dL Normal 0.2-1.3 [facility] Comment on above: Order Comment: Speci men Type: BLOOD SPECIMENOrdering Facility: [facility] Address: [address] [place] [address] Performed By: #### 1 9123-9, 42352-9 ####[facility] LABCLIA [id number] [place] [address] [place] Calcium [Mass/Vol] 9.7 mg/dL Normal 8.5-10.2 [facility] Comment on above: Order Comment: Speci men Type: BLOOD SPECIMENOrdering Facility: [facility] Address: [address] [place] [address] Performed By: #### 1 9123-9, ####[facility] LABCLIA [id number] [place] [address] [place] Chloride [Moles/Vol] 95 mmol/L Low 97-105 [facility] Comment on above: Order Comment: Speci men Type: BLOOD SPECIMENOrdering Facility: [facility] Address: [address] [place] [address] Performed By: #### 1 9123-9, ####[facility] LABCLIA [id number] [place] [address] [place] CO2 [Moles/Vol] 27 mmol/L Normal 22-30 [facility] Comment on above: Order Comment: Speci men Type: BLOOD SPECIMENOrdering Facility: [facility] Address: [address] [place] [address] Performed By: #### 1 9123-9, ####[facility] LABCLIA [id number] [place] [address] [place] Creatinine [Mass/Vol] 0.62 mg/dL Normal 0.58-0.96 [facility] Comment on above: Order Comment: Speci men Type: BLOOD SPECIMENOrdering Facility: [facility] Address: [address] [place] [address] Performed By: #### 1 9123-9, ####[facility] LABCLIA [id number] [place] [address] [place] Creatinine and Glomerular filtration rate.predicted panel (S/P/Bld) 99 mL/min/1.73m??? Normal >=60 [facility] Comment on above: Order Comment: Speci men Type: BLOOD SPECIMENOrdering Facility: [facility] Address: [address] [place] [address] Result Comment: Annelise mated Glomerular Filtration Rate [...] actual GFR. Performed By: #### 1 9123-9, ####[facility] [id number] [place] [address] [place] Glucose [Mass/Vol] 196 mg/dL High 74-99 [facility] Comment on above: Order Comment: Phyllis stein Type: BLOOD SPECIMENOrdering Facility: [facility] Address: [address] [place] [address] Result Comment: The [place] [employer] (ADA) provides guidance for cutoff [...] Standards of Medical Care in Diabetes 2016, [place] [employer]. Diabetes Care. 2016.39(Suppl 1). Performed By: #### 1 9123-9, ####[facility] LABR[facility] [id number] [place] [address] [place] Potassium [Moles/Vol] 4.2 mmol/L Normal 3.7-5.1 [facility] Comment on above: Order Comment: Phyllis stein Type: BLOOD SPECIMENOrdering Facility: [facility] Address: [address] [place] [address] Performed By: #### 1 9123-9, 02016-0 ####[facility] LABCLIA [id number] [place] [id number] [place] Protein [Mass/Vol] 6.0 g/dL Low 6.3-8.0 [facility] Comment on above: Order Comment: Speci men Type: BLOOD SPECIMENOrdering Facility: [facility] Address: [address] [place] [address] Performed By: #### 1 9123-9, 52399-1 ####[facility] LABCLIA [id number] [place] [address] [place] Sodium [Moles/Vol] 131 mmol/L Low 136-144 [facility] Comment on above: Order Comment: Speci men Type: BLOOD SPECIMENOrdering Facility: [facility] Address: [address] [place] [address] Performed By: #### 1 9123-9, 35608-3 ####[facility] LABCLIA [id number] [place] [address] [place] Urea nitrogen [Mass/Vol] 12 mg/dL Normal 7-21 [facility] Comment on above: Order Comment: Speci men Type: BLOOD SPECIMENOrdering Facility: [facility] Address: [address] [place] [address] Performed By: #### 1 9123-9, 31978-4 ####[facility] LABCLIA [id number] [place] [address] [place] ECG COMPLETEon 08-01-[address] [facility] Magnesium SerPl-mCncon 08-01 Magnesium [Mass/Vol] 1.8 mg/dL Normal 1.7-2.3 [facility] Comment on above: Order Comment: Speci men Type: BLOOD SPECIMENOrdering Facility: [facility] Address: [address] [place] [address] Performed By: #### 1 9123-9, 74253-1 ####[facility] LABCLIA [id number] [place] [address] [place] XR CHEST 1V FRONTAL PORTon 0 08-01-2023 XR CHEST 1V FRONTAL PORT Normal [facility] CBC panel Auto (Bld)on 07-31 Erythrocyte distribution width (RBC) [Ratio] 12.0 % Normal 11.5-15.0 [facility] Comment on above: Order Comment: Speci men Type: BLOOD SPECIMENOrdering Facility: [facility] Address: [address] [place] [address] Performed By: #### 5 8410-2 ####[facility] LABIA [id number] [place] [address] [place] Hematocrit (Bld) [Volume fraction] 31.1 % Low 36.0-46.0 [facility] Comment on above: Order Comment: Speci men Type: BLOOD SPECIMENOrdering Facility: [facility] Address: [address] [place] [address] Performed By: #### 5 8410-2 ####[facility] LABIA [id number] [place] [address] [place] Hemoglobin (Bld) [Mass/Vol] 10.8 g/dL Low 11.5-15.5 [facility] Comment on above: Order Comment: Speci men Type: BLOOD SPECIMENOrdering Facility: [facility] Address: [address] [place] [address] Performed By: #### 5 8410-2 ####[facility] LABCLIA [id number] [place] [address] [place] MCH (RBC) [Entitic mass] 31.9 pg Normal 26.0-34.0 [facility] Comment on above: Order Comment: Speci men Type: BLOOD SPECIMENOrdering Facility: [facility] Address: [address] [place] [address] Performed By: #### 5 8410-2 ####[facility] LABCLIA [id number] [place] [address] [place] MCHC (RBC) [Mass/Vol] 34.7 g/dL Normal 30.5-36.0 [facility] Comment on above: Order Comment: Speci men Type: BLOOD SPECIMENOrdering Facility: [facility] Address: [address] [place] [address] Performed By: #### 5 8410-2 ####[facility] LABCLIA [id number] [place] [address] [place] MCV (RBC) [Entitic vol] 91.7 fL Normal 80.0-100.0 [facility] Comment on above: Order Comment: Speci men Type: BLOOD SPECIMENOrdering Facility: [facility] Address: [address] [place] [address] Performed By: #### 5 8410-2 ####[facility] LABIA [id number] [place] [address] [place] Nucleated RBC (Bld) [#/Vol] 10*3/uL Normal <0.01 [facility] Comment on above: Order Comment: Speci men Type: BLOOD SPECIMENOrdering Facility: [facility] Address: [address] [place] [address] Performed By: #### 5 8410-2 ####[facility] LABIA [id number] [place] [address] [place] Platelet mean volume (Bld) [Entitic vol] 10.3 fL Normal 9.0-12.7 [facility] Comment on above: Order Comment: Speci men Type: BLOOD SPECIMENOrdering Facility: [facility] Address: [address] [place] [address] Performed By: #### 5 8410-2 ####[facility] LABCLIA [id number] [place] [address] [place] Platelets (Bld) [#/Vol] 159 10*3/uL Normal 150-400 [facility] Comment on above: Order Comment: Speci men Type: BLOOD SPECIMENOrdering Facility: [facility] Address: [address] [place] [address] Performed By: #### 5 8410-2 ####[facility] LABCLIA [id number] [place] [address] [place] RBC (Bld) [#/Vol] 3.39 10*6/uL Low 3.90-5.20 [facility] Comment on above: Order Comment: Speci men Type: BLOOD SPECIMENOrdering Facility: [facility] Address: [address] [place] [address] Performed By: #### 5 8410-2 ####[facility] LABCLIA [id number] [place] [address] [place] WBC (Bld) [#/Vol] 9.25 10*3/uL Normal 3.70-11.00 [facility] Comment on above: Order Comment: Speci men Type: BLOOD SPECIMENOrdering Facility: [facility] Address: [address] [place] [address] Performed By: #### 5 8410-2 ####[facility] LABCLIA [id number] [place] [address] [place] Comprehensive metabolic 2000 panelon 07-31-2023 Albumin [Mass/Vol] 2.9 g/dL Low 3.9-4.9 [facility] Comment on above: Order Comment: Speci men Type: BLOOD SPECIMENOrdering Facility: [facility] Address: [address] [place] [address] Performed By: #### 2 4323-8 ####[facility] LABCLIA [id number] [place] [address] [place] ALP [Catalytic activity/Vol] 54 U/L Normal 34-123 [facility] Comment on above: Order Comment: Speci men Type: BLOOD SPECIMENOrdering Facility: [facility] Address: [address] [place] [id number] Performed By: #### 2 4323-8 ####[facility] LABCLIA [id number] [place] [id number] [place] ALT [Catalytic activity/Vol] 10 U/L Normal 7-38 [facility] Comment on above: Order Comment: Speci men Type: BLOOD SPECIMENOrdering Facility: [facility] Address: [address] [place], [place] [address] Performed By: #### 2 4323-8 ####[facility] LABCLIA [id number] [place] [address] [place] Anion gap [Moles/Vol] 9 mmol/L Normal 9-18 [facility] Comment on above: Order Comment: Speci men Type: BLOOD SPECIMENOrdering Facility: [facility] Address: [address] [place] [address] Performed By: #### 2 4323-8 ####[facility] LABCLIA [id number] [place] [address] [place] AST [Catalytic activity/Vol] 16 U/L Normal 13-35 [facility] Comment on above: Order Comment: Speci men Type: BLOOD SPECIMENOrdering Facility: [facility] Address: [address] [place], [place] [address] Performed By: #### 2 4323-8 ####[facility] LABCLIA [id number] [place] [address] [place] Bilirubin [Mass/Vol] 0.7 mg/dL Normal 0.2-1.3 [facility] Comment on above: Order Comment: Speci men Type: BLOOD SPECIMENOrdering Facility: [facility] Address: [address] [place], [place] [address] Performed By: #### 2 4323-8 ####[facility] LABCLIA [id number] [place] [address] [place] Calcium [Mass/Vol] 9.2 mg/dL Normal 8.5-10.2 [facility] Comment on above: Order Comment: Speci men Type: BLOOD SPECIMENOrdering Facility: [facility] Address: [address] [place] [address] Performed By: #### 2 4323-8 ####[facility] LABCLIA [id number] [place] [address] [place] Chloride [Moles/Vol] 98 mmol/L Normal 97-105 [facility] Comment on above: Order Comment: Speci men Type: BLOOD SPECIMENOrdering Facility: [facility] Address: [address] [place] [address] Performed By: #### 2 4323-8 ####[facility] LABCLIA [id number] [place] [address] [place] CO2 [Moles/Vol] 24 mmol/L Normal 22-30 [facility] Comment on above: Order Comment: Speci men Type: BLOOD SPECIMENOrdering Facility: [facility] Address: [address] [place] [address] Performed By: #### 2 4323-8 ####[facility] LABCLIA [id number] [place] [address] [place] Creatinine [Mass/Vol] 0.66 mg/dL Normal 0.58-0.96 [facility] Comment on above: Order Comment: Speci men Type: BLOOD SPECIMENOrdering Facility: [facility] Address: [address] [place] [address] Performed By: #### 2 4323-8 ####[facility] LABCLIA [id number] [place] [address] [place] Creatinine and Glomerular filtration rate.predicted panel (S/P/Bld) 97 mL/min/1.73m??? Normal >=60 [facility] Comment on above: Order Comment: Speci men Type: BLOOD SPECIMENOrdering Facility: [facility] Address: [address] [place] [address] Result Comment: Annelise mated Glomerular Filtration Rate [...] actual GFR. Performed By: #### 2 4323-8 ####[facility] LABCLIA [id number] [place] [address] [place] Glucose [Mass/Vol] 171 mg/dL High 74-99 [facility] Comment on above: Order Comment: Specmarko stein Type: BLOOD SPECIMENOrdering Facility: [facility] Address: [address] [place] [address] Result Comment: The [place] [employer] (ADA) provides guidance for cutoff [...] Standards of Medical Care in Diabetes 2016, [place] [employer]. Diabetes Care. 2016.39(Suppl 1). Performed By: #### 2 4323-8 ####[facility] LABCLIA [id number] [place] [address] [place] Potassium [Moles/Vol] 4.4 mmol/L Normal 3.7-5.1 [facility] Comment on above: Order Comment: Phyllis stein Type: BLOOD SPECIMENOrdering Facility: [facility] Address: [address] [place] [address] Performed By: #### 2 4323-8 ####[facility] LABCLIA [id number] [place] [address] [place] Protein [Mass/Vol] 5.5 g/dL Low 6.3-8.0 [facility] Comment on above: Order Comment: Speci men Type: BLOOD SPECIMENOrdering Facility: [facility] Address: [address] [place] [address] Performed By: #### 2 4323-8 ####[facility] LABCLIA [id number] [place] [address] [place] Sodium [Moles/Vol] 131 mmol/L Low 136-144 [facility] Comment on above: Order Comment: Speci men Type: BLOOD SPECIMENOrdering Facility: [facility] Address: [address] [place] [address] Performed By: #### 2 4323-8 ####[facility] LABIA [id number] [place] [address] [place] Urea nitrogen [Mass/Vol] 12 mg/dL Normal 7-21 [facility] Comment on above: Order Comment: Speci men Type: BLOOD SPECIMENOrdering Facility: [facility] Address: [address] [place] [address] Performed By: #### 2 4323-8 ####[facility] LABIA [id number] [place] [address] [place] NURSING PROGon 07-31-[address] [facility] XR CHEST 1V FRONTAL PORTon 0 07-31-2023 XR CHEST 1V FRONTAL PORT Normal [facility] ARTERIAL BLOOD GASESon 07-30 Base excess Calc (Bld) [Moles/Vol] 2 mmol/L Normal 0-2 [facility] Comment on above: Order Comment: Speci men Type: ARTERIAL BLOOD SPECIMENOrdering Facility: [facility] Address: [address] [place] [address] Performed By: #### A LLBG ####[facility] LABCLIA [id number] [place] [address] [place] Body temperature 98.6 [degF] Normal [facility] Comment on above: Order Comment: Speci men Type: ARTERIAL BLOOD SPECIMENOrdering Facility: [facility] Address: [address] [place] [address] Performed By: #### A LLBG ####[facility] LABCLIA [id number] [place] [address] [place] Calcium.ionized (Bld) [Mass/Vol] 1.22 mmol/L Normal 1.08-1.30 [facility] Comment on above: Order Comment: Speci men Type: ARTERIAL BLOOD SPECIMENOrdering Facility: [facility] Address: [address] [place] [address] Performed By: #### A LLBG ####[facility] LABCLIA [id number] [place] [address] [place] Calcium.ionized adjusted to pH 7.4 (BldA) [Moles/Vol] 1.26 mmol/L Normal 1.08-1.30 [facility] Comment on above: Order Comment: Speci men Type: ARTERIAL BLOOD SPECIMENOrdering Facility: [facility] Address: [address] [place] [address] Performed By: #### A LLBG ####[facility] LABCLIA [id number] [place] [address] [place] Carboxyhemoglobin (BldA) [Mass fraction] 1.8 % Normal 0.0-2.0 [facility] Comment on above: Order Comment: Speci men Type: ARTERIAL BLOOD SPECIMENOrdering Facility: [facility] Address: [address] [place] [address] Result Comment: Carb oxyhemoglobin Reference Range for Smokers: 2.0-8.0% Performed By: #### A LLBG ####[facility] LABCLIA [id number] [place] [address] [place] CO2 (Bld) [Partial pressure] 37 mm Hg Normal 36-46 [facility] Comment on above: Order Comment: Speci men Type: ARTERIAL BLOOD SPECIMENOrdering Facility: [facility] Address: [address] [place] [address] Performed By: #### A LLBG ####[facility] LABCLIA [id number] [place] [address] [place] Glucose [Mass/Vol] 146 mg/dL High 60-105 [facility] Comment on above: Order Comment: Speci men Type: ARTERIAL BLOOD SPECIMENOrdering Facility: [facility] Address: [address] [place] [address] Performed By: #### A LLBG ####[facility] LABCLIA [id number] [place] [address] [place] HCO3 (Bld) [Moles/Vol] 26 mmol/L Normal 22-26 [facility] Comment on above: Order Comment: Speci men Type: ARTERIAL BLOOD SPECIMENOrdering Facility: [facility] Address: [address] [place] [address] Performed By: #### A LLBG ####[facility] LABCLIA [id number] [place] [address] [place] Hematocrit (Bld) [Volume fraction] 34.4 % Low 36.0-46.0 [facility] Comment on above: Order Comment: Speci men Type: ARTERIAL BLOOD SPECIMENOrdering Facility: [facility] Address: [address] [place] [address] Performed By: #### A LLBG ####[facility] LABCLIA [id number] [place] [address] [place] Hemoglobin (Bld) [Mass/Vol] 11.1 g/dL Low 11.5-15.5 [facility] Comment on above: Order Comment: Speci men Type: ARTERIAL BLOOD SPECIMENOrdering Facility: [facility] Address: [address] [place] [address] Performed By: #### A LLBG ####[facility] LABCLIA [id number] [place] [address] [place] Lactate [Moles/Vol] 0.9 mmol/L Normal 0.5-2.2 [facility] Comment on above: Order Comment: Speci men Type: ARTERIAL BLOOD SPECIMENOrdering Facility: [facility] Address: [address] [place] [address] Performed By: #### A LLBG ####[facility] LABCLIA [id number] [place] [address] [place] LITERS 1 Liters/min Normal [facility] Comment on above: Order Comment: Speci men Type: ARTERIAL BLOOD SPECIMENOrdering Facility: [facility] Address: [address] [place] [address] Performed By: #### A LLBG ####[facility] LABCLIA [id number] [place] [address] [place] Methemoglobin (Bld) [Mass fraction] 1.4 % Normal 0.0-1.5 [facility] Comment on above: Order Comment: Speci men Type: ARTERIAL BLOOD SPECIMENOrdering Facility: [facility] Address: [address] [place] [address] Performed By: #### A LLBG ####[facility] LABIA [id number] [place] [address] [place] O2 THERAPY NC = Nasal Cannula Normal [facility] Comment on above: Order Comment: Speci men Type: ARTERIAL BLOOD SPECIMENOrdering Facility: [facility] Address: [address] [place] [address] Performed By: #### A LLBG ####[facility] LABCLIA [id number] [place] [address] [place] Oxygen (Bld) [Partial pressure] 87 mm Hg Normal 85-95 [facility] Comment on above: Order Comment: Speci men Type: ARTERIAL BLOOD SPECIMENOrdering Facility: [facility] Address: [address] [place] [address] Performed By: #### A LLBG ####[facility] LABIA [id number] [place] [address] [place] Oxyhemoglobin (BldA) [Mass fraction] 94 % Low 95-98 [facility] Comment on above: Order Comment: Speci men Type: ARTERIAL BLOOD SPECIMENOrdering Facility: [facility] Address: [address] [place] [address] Performed By: #### A LLBG ####[facility] LABIA [id number] [place] [address] [place] pH (Bld) 7.46 [pH] High 7.35-7.45 [facility] Comment on above: Order Comment: Speci men Type: ARTERIAL BLOOD SPECIMENOrdering Facility: [facility] Address: [address] [place] [address] Performed By: #### A LLBG ####[facility] LABIA [id number] [place] [address] [place] Potassium [Moles/Vol] 4.3 mmol/L Normal 3.5-5.0 [facility] Comment on above: Order Comment: Speci men Type: ARTERIAL BLOOD SPECIMENOrdering Facility: [facility] Address: [address] [place] [address] Performed By: #### A LLBG ####[facility] LABCLIA [id number] [place] [address] [place] Sodium [Moles/Vol] 128 mmol/L Low 136-144 [facility] Comment on above: Order Comment: Speci men Type: ARTERIAL BLOOD SPECIMENOrdering Facility: [facility] Address: [address] [place] [address] Performed By: #### A LLBG ####[facility] LABCLIA [id number] [place] [address] [place] Base excess Calc (Bld) [Moles/Vol] 2 mmol/L Normal 0-2 [facility] Comment on above: Order Comment: Speci men Type: ARTERIAL BLOOD SPECIMENOrdering Facility: [facility] Address: [address] [place] [address] Performed By: #### A LLBG ####[facility] LABIA [id number] [place] [address] [place] Body temperature 98.6 [degF] Normal [facility] Comment on above: Order Comment: Speci men Type: ARTERIAL BLOOD SPECIMENOrdering Facility: [facility] Address: [address] [place] [address] Performed By: #### A LLBG ####[facility] LABIA [id number] [place] [address] [place] Calcium.ionized (Bld) [Mass/Vol] 1.21 mmol/L Normal 1.08-1.30 [facility] Comment on above: Order Comment: Speci men Type: ARTERIAL BLOOD SPECIMENOrdering Facility: [facility] Address: [address] [place] [address] Performed By: #### A LLBG ####[facility] LABIA [id number] [place] [address] [place] Calcium.ionized adjusted to pH 7.4 (BldA) [Moles/Vol] 1.23 mmol/L Normal 1.08-1.30 [facility] Comment on above: Order Comment: Speci men Type: ARTERIAL BLOOD SPECIMENOrdering Facility: [facility] Address: [address] [place] [address] Performed By: #### A LLBG ####[facility] LABCLIA [id number] [place] [address] [place] Carboxyhemoglobin (BldA) [Mass fraction] 1.6 % Normal 0.0-2.0 [facility] Comment on above: Order Comment: Speci men Type: ARTERIAL BLOOD SPECIMENOrdering Facility: [facility] Address: [address] [place] [address] Result Comment: Carb oxyhemoglobin Reference Range for Smokers: 2.0-8.0% Performed By: #### A LLBG ####[facility] LABCLIA [id number] [place] [address] [place] CO2 (Bld) [Partial pressure] 39 mm Hg Normal 36-46 [facility] Comment on above: Order Comment: Speci men Type: ARTERIAL BLOOD SPECIMENOrdering Facility: [facility] Address: [address] [place] [address] Performed By: #### A LLBG ####[facility] LABCLIA [id number] [place] [address] [place] Glucose [Mass/Vol] 168 mg/dL High 60-105 [facility] Comment on above: Order Comment: Speci men Type: ARTERIAL BLOOD SPECIMENOrdering Facility: [facility] Address: [address] [place] [address] Performed By: #### A LLBG ####[facility] LABCLIA [id number] [place] [address] [place] HCO3 (Bld) [Moles/Vol] 26 mmol/L Normal 22-26 [facility] Comment on above: Order Comment: Speci men Type: ARTERIAL BLOOD SPECIMENOrdering Facility: [facility] Address: [address] [place] [address] Performed By: #### A LLBG ####[facility] LABCLIA [id number] [place] [address] [place] Hematocrit (Bld) [Volume fraction] 35.0 % Low 36.0-46.0 [facility] Comment on above: Order Comment: Speci men Type: ARTERIAL BLOOD SPECIMENOrdering Facility: [facility] Address: [address] [place] [address] Performed By: #### A LLBG ####[facility] LABIA [id number] [place] [address] [place] Hemoglobin (Bld) [Mass/Vol] 11.4 g/dL Low 11.5-15.5 [facility] Comment on above: Order Comment: Speci men Type: ARTERIAL BLOOD SPECIMENOrdering Facility: [facility] Address: [address] [place] [address] Performed By: #### A LLBG ####[facility] LABIA [id number] [place] [address] [place] Lactate [Moles/Vol] 1.0 mmol/L Normal 0.5-2.2 [facility] Comment on above: Order Comment: Speci men Type: ARTERIAL BLOOD SPECIMENOrdering Facility: [facility] Address: [address] [place] [address] Performed By: #### A LLBG ####[facility] LABIA [id number] [place] [address] [place] LITERS 1 Liters/min Normal [facility] Comment on above: Order Comment: Speci men Type: ARTERIAL BLOOD SPECIMENOrdering Facility: [facility] Address: [address] [place] [address] Performed By: #### A LLBG ####[facility] LABR[facility] [id number] [place] [address] [place] Methemoglobin (Bld) [Mass fraction] 1.4 % Normal 0.0-1.5 [facility] Comment on above: Order Comment: Speci men Type: ARTERIAL BLOOD SPECIMENOrdering Facility: [facility] Address: [address] [place] [address] Performed By: #### A LLBG ####[facility] LABIA [id number] [place] [address] [place] O2 THERAPY NC = Nasal Cannula Normal [facility] Comment on above: Order Comment: Speci men Type: ARTERIAL BLOOD SPECIMENOrdering Facility: [facility] Address: [address] [place] [address] Performed By: #### A LLBG ####[facility] LABCLIA [id number] [place] [id number] [place] Oxygen (Bld) [Partial pressure] 99 mm Hg High 85-95 [facility] Comment on above: Order Comment: Speci men Type: ARTERIAL BLOOD SPECIMENOrdering Facility: [facility] Address: [address] [place] [address] Performed By: #### A LLBG ####[facility] LABCLIA [id number] [place] [address] [place] Oxyhemoglobin (BldA) [Mass fraction] 95 % Normal 95-98 [facility] Comment on above: Order Comment: Speci men Type: ARTERIAL BLOOD SPECIMENOrdering Facility: [facility] Address: [address] [place] [address] Performed By: #### A LLBG ####[facility] LABCLIA [id number] [place] [address] [place] pH (Bld) 7.43 [pH] Normal 7.35-7.45 [facility] Comment on above: Order Comment: Speci men Type: ARTERIAL BLOOD SPECIMENOrdering Facility: [facility] Address: [address] [place] [address] Performed By: #### A LLBG ####[facility] LABCLIA [id number] [place] [address] [place] Potassium [Moles/Vol] 4.2 mmol/L Normal 3.5-5.0 [facility] Comment on above: Order Comment: Speci men Type: ARTERIAL BLOOD SPECIMENOrdering Facility: [facility] Address: [address] [place], [place] [id number] Performed By: #### A LLBG ####[facility] LABCLIA [id number] [place] [address] [place] Sodium [Moles/Vol] 128 mmol/L Low 136-144 [facility] Comment on above: Order Comment: Speci men Type: ARTERIAL BLOOD SPECIMENOrdering Facility: [facility] Address: [address] [place] [address] Performed By: #### A LLBG ####[facility] LABCLIA [id number] [place] [address] [place] Base excess Calc (Bld) [Moles/Vol] 1 mmol/L Normal 0-2 [facility] Comment on above: Order Comment: Speci men Type: ARTERIAL BLOOD SPECIMENOrdering Facility: [facility] Address: [address] [place] [address] Performed By: #### A LLBG ####[facility] LABCLIA [id number] [place] [address] [place] Body temperature 98.6 [degF] Normal [facility] Comment on above: Order Comment: Speci men Type: ARTERIAL BLOOD SPECIMENOrdering Facility: [facility] Address: [address] [place] [address] Performed By: #### A LLBG ####[facility] LABCLIA [id number] [place] [address] [place] Calcium.ionized (Bld) [Mass/Vol] 1.24 mmol/L Normal 1.08-1.30 [facility] Comment on above: Order Comment: Speci men Type: ARTERIAL BLOOD SPECIMENOrdering Facility: [facility] Address: [address] [place] [address] Performed By: #### A LLBG ####[facility] LABCLIA [id number] [place] [address] [place] Calcium.ionized adjusted to pH 7.4 (BldA) [Moles/Vol] 1.26 mmol/L Normal 1.08-1.30 [facility] Comment on above: Order Comment: Speci men Type: ARTERIAL BLOOD SPECIMENOrdering Facility: [facility] Address: [address] [place] [address] Performed By: #### A LLBG ####[facility] LABCLIA [id number] [place] [address] [place] Carboxyhemoglobin (BldA) [Mass fraction] 1.9 % Normal 0.0-2.0 [facility] Comment on above: Order Comment: Speci men Type: ARTERIAL BLOOD SPECIMENOrdering Facility: [facility] Address: [address] [place] [address] Result Comment: Carb oxyhemoglobin Reference Range for Smokers: 2.0-8.0% Performed By: #### A LLBG ####[facility] LABCLIA [id number] [place] [address] [place] CO2 (Bld) [Partial pressure] 38 mm Hg Normal 36-46 [facility] Comment on above: Order Comment: Speci men Type: ARTERIAL BLOOD SPECIMENOrdering Facility: [facility] Address: [address] [place] [address] Performed By: #### A LLBG ####[facility] LABCLIA [id number] [place] [address] [place] Glucose [Mass/Vol] 161 mg/dL High 60-105 [facility] Comment on above: Order Comment: Speci men Type: ARTERIAL BLOOD SPECIMENOrdering Facility: [facility] Address: [address] [place] [address] Performed By: #### A LLBG ####[facility] LABIA [id number] [place] [address] [place] HCO3 (Bld) [Moles/Vol] 25 mmol/L Normal 22-26 [facility] Comment on above: Order Comment: Speci men Type: ARTERIAL BLOOD SPECIMENOrdering Facility: [facility] Address: [address] [place] [address] Performed By: #### A LLBG ####[facility] LABCLIA [id number] [place] [address] [place] Hematocrit (Bld) [Volume fraction] 35.9 % Low 36.0-46.0 [facility] Comment on above: Order Comment: Speci men Type: ARTERIAL BLOOD SPECIMENOrdering Facility: [facility] Address: [address] [place] [address] Performed By: #### A LLBG ####[facility] LABCLIA [id number] [place] [address] [place] Hemoglobin (Bld) [Mass/Vol] 11.7 g/dL Normal 11.5-15.5 [facility] Comment on above: Order Comment: Speci men Type: ARTERIAL BLOOD SPECIMENOrdering Facility: [facility] Address: [address] [place] [address] Performed By: #### A LLBG ####[facility] LABIA [id number] [place] [address] [place] Lactate [Moles/Vol] 0.9 mmol/L Normal 0.5-2.2 [facility] Comment on above: Order Comment: Speci men Type: ARTERIAL BLOOD SPECIMENOrdering Facility: [facility] Address: [address] [place] [address] Performed By: #### A LLBG ####[facility] LABIA [id number] [place] [address] [place] LITERS 1 Liters/min Normal [facility] Comment on above: Order Comment: Speci men Type: ARTERIAL BLOOD SPECIMENOrdering Facility: [facility] Address: [address] [place] [address] Performed By: #### A LLBG ####[facility] LABCLIA [id number] [place] [address] [place] Methemoglobin (Bld) [Mass fraction] 0.7 % Normal 0.0-1.5 [facility] Comment on above: Order Comment: Speci men Type: ARTERIAL BLOOD SPECIMENOrdering Facility: [facility] Address: [address] [place] [address] Performed By: #### A LLBG ####[facility] LABCLIA [id number] [place] [address] [place] O2 THERAPY NC = Nasal Cannula Normal [facility] Comment on above: Order Comment: Speci men Type: ARTERIAL BLOOD SPECIMENOrdering Facility: [facility] Address: [address] [place] [address] Performed By: #### A LLBG ####[facility] LABCLIA [id number] [place] [address] [place] Oxygen (Bld) [Partial pressure] 77 mm Hg Low 85-95 [facility] Comment on above: Order Comment: Speci men Type: ARTERIAL BLOOD SPECIMENOrdering Facility: [facility] Address: [address] [place] [address] Performed By: #### A LLBG ####[facility] LABCLIA [id number] [place] [address] [place] Oxyhemoglobin (BldA) [Mass fraction] 94 % Low 95-98 [facility] Comment on above: Order Comment: Speci men Type: ARTERIAL BLOOD SPECIMENOrdering Facility: [facility] Address: [address] [place] [address] Performed By: #### A LLBG ####[facility] LABCLIA [id number] [place] [address] [place] pH (Bld) 7.42 [pH] Normal 7.35-7.45 [facility] Comment on above: Order Comment: Speci men Type: ARTERIAL BLOOD SPECIMENOrdering Facility: [facility] Address: [address] [place] [address] Performed By: #### A LLBG ####[facility] LABCLIA [id number] [place] [address] [place] Potassium [Moles/Vol] 3.9 mmol/L Normal 3.5-5.0 [facility] Comment on above: Order Comment: Speci men Type: ARTERIAL BLOOD SPECIMENOrdering Facility: [facility] Address: [address] [place] [address] Performed By: #### A LLBG ####[facility] LABCLIA [id number] [place] [address] [place] Sodium [Moles/Vol] 129 mmol/L Low 136-144 [facility] Comment on above: Order Comment: Speci men Type: ARTERIAL BLOOD SPECIMENOrdering Facility: [facility] Address: [address] [place] [address] Performed By: #### A LLBG ####[facility] LABCLIA [id number] [place] [address] [place] Base excess Calc (Bld) [Moles/Vol] 0 mmol/L Normal 0-2 [facility] Comment on above: Order Comment: Speci men Type: ARTERIAL BLOOD SPECIMENOrdering Facility: [facility] Address: [address] [place] [address] Performed By: #### A LLBG ####[facility] LABIA [id number] [place] [address] [place] Body temperature 98.6 [degF] Normal [facility] Comment on above: Order Comment: Speci men Type: ARTERIAL BLOOD SPECIMENOrdering Facility: [facility] Address: [address] [place] [address] Performed By: #### A LLBG ####[facility] LABIA [id number] [place] [address] [place] Calcium.ionized (Bld) [Mass/Vol] 1.24 mmol/L Normal 1.08-1.30 [facility] Comment on above: Order Comment: Speci men Type: ARTERIAL BLOOD SPECIMENOrdering Facility: [facility] Address: [address] [place] [address] Performed By: #### A LLBG ####[facility] LABIA [id number] [place] [address] [place] Calcium.ionized adjusted to pH 7.4 (BldA) [Moles/Vol] 1.25 mmol/L Normal 1.08-1.30 [facility] Comment on above: Order Comment: Speci men Type: ARTERIAL BLOOD SPECIMENOrdering Facility: [facility] Address: [address] [place] [address] Performed By: #### A LLBG ####[facility] [id number] [place] [address] [place] Carboxyhemoglobin (BldA) [Mass fraction] 1.1 % Normal 0.0-2.0 [facility] Comment on above: Order Comment: Speci men Type: ARTERIAL BLOOD SPECIMENOrdering Facility: [facility] Address: [address] [place] [address] Result Comment: Carb oxyhemoglobin Reference Range for Smokers: 2.0-8.0% Performed By: #### A LLBG ####[facility] LABIA [id number] [place] [address] [place] CO2 (Bld) [Partial pressure] 38 mm Hg Normal 36-46 [facility] Comment on above: Order Comment: Speci men Type: ARTERIAL BLOOD SPECIMENOrdering Facility: [facility] Address: [address] [place] [address] Performed By: #### A LLBG ####[facility] LABIA [id number] [place] [address] [place] Glucose [Mass/Vol] 137 mg/dL High 60-105 [facility] Comment on above: Order Comment: Speci men Type: ARTERIAL BLOOD SPECIMENOrdering Facility: [facility] Address: [address] [place] [address] Performed By: #### A LLBG ####[facility] LABCLIA [id number] [place] [address] [place] HCO3 (Bld) [Moles/Vol] 24 mmol/L Normal 22-26 [facility] Comment on above: Order Comment: Speci men Type: ARTERIAL BLOOD SPECIMENOrdering Facility: [facility] Address: [address] [place] [address] Performed By: #### A LLBG ####[facility] LABCLIA [id number] [place] [address] [place] Hematocrit (Bld) [Volume fraction] 35.6 % Low 36.0-46.0 [facility] Comment on above: Order Comment: Speci men Type: ARTERIAL BLOOD SPECIMENOrdering Facility: [facility] Address: [address] [place] [address] Performed By: #### A LLBG ####[facility] LABCLIA [id number] [place] [address] [place] Hemoglobin (Bld) [Mass/Vol] 11.5 g/dL Normal 11.5-15.5 [facility] Comment on above: Order Comment: Speci men Type: ARTERIAL BLOOD SPECIMENOrdering Facility: [facility] Address: [address] [place] [address] Performed By: #### A LLBG ####[facility] LABCLIA [id number] [place] [address] [place] Lactate [Moles/Vol] 0.9 mmol/L Normal 0.5-2.2 [facility] Comment on above: Order Comment: Speci men Type: ARTERIAL BLOOD SPECIMENOrdering Facility: [facility] Address: [address] [place] [address] Performed By: #### A LLBG ####[facility] LABCLIA [id number] [place] [address] [place] 1 Liters/min Normal [facility] Comment on above: Order Comment: Speci men Type: ARTERIAL BLOOD SPECIMENOrdering Facility: [facility] Address: [address] [id number] Performed By: #### A LLBG ####[facility] LABCLIA [id number] [address] [address] [place] Methemoglobin (Bld) [Mass fraction] 1.2 % Normal 0.0-1.5 [facility] Comment on above: Order Comment: Speci men Type: ARTERIAL BLOOD SPECIMENOrdering Facility: [facility] Address: [address] [id number] Performed By: #### A LLBG ####[facility] LABCLIA [id number] [place] [address] [place] O2 THERAPY NC = Nasal Cannula Normal [facility] Comment on above: Order Comment: Speci men Type: ARTERIAL BLOOD SPECIMENOrdering Facility: [facility] Address: [address] [id number] Performed By: #### A LLBG ####[facility] LABCLIA [id number] [place] [address] [place] Oxygen (Bld) [Partial pressure] 98 mm Hg High 85-95 [facility] Comment on above: Order Comment: Speci men Type: ARTERIAL BLOOD SPECIMENOrdering Facility: [facility] Address: [address] [id number] Performed By: #### A LLBG ####[facility] LABCLIA [id number] [place] [id number] [place] Oxyhemoglobin (BldA) [Mass fraction] 95 % Normal 95-98 [facility] Comment on above: Order Comment: Speci men Type: ARTERIAL BLOOD SPECIMENOrdering Facility: [facility] Address: [address] [id number] Performed By: #### A LLBG ####[facility] LABCLIA [id number] [place] [address] [place] pH (Bld) 7.41 [pH] Normal 7.35-7.45 [facility] Comment on above: Order Comment: Speci men Type: ARTERIAL BLOOD SPECIMENOrdering Facility: [facility] Address: [address] [place] [address] Performed By: #### A LLBG ####[facility] LABIA [id number] [place] [address] [place] Potassium [Moles/Vol] 4.2 mmol/L Normal 3.5-5.0 [facility] Comment on above: Order Comment: Speci men Type: ARTERIAL BLOOD SPECIMENOrdering Facility: [facility] Address: [address] [place] [address] Performed By: #### A LLBG ####[facility] LABIA [id number] [place] [address] [place] Sodium [Moles/Vol] 129 mmol/L Low 136-144 [facility] Comment on above: Order Comment: Speci men Type: ARTERIAL BLOOD SPECIMENOrdering Facility: [facility] Address: [address] [place] [address] Performed By: #### A LLBG ####[facility] LABIA [id number] [place] [address] [place] Base excess Calc (Bld) [Moles/Vol] 2 mmol/L Normal 0-2 [facility] Comment on above: Order Comment: Speci men Type: ARTERIAL BLOOD SPECIMENOrdering Facility: [facility] Address: [address] [place] [address] Performed By: #### A LLBG ####[facility] LABIA [id number] [place] [address] [place] Body temperature 98.6 [degF] Normal [facility] Comment on above: Order Comment: Speci men Type: ARTERIAL BLOOD SPECIMENOrdering Facility: [facility] Address: [address] [place] [address] Performed By: #### A LLBG ####[facility] [id number] [place] [address] [place] Calcium.ionized (Bld) [Mass/Vol] 1.26 mmol/L Normal 1.08-1.30 [facility] Comment on above: Order Comment: Speci men Type: ARTERIAL BLOOD SPECIMENOrdering Facility: [facility] Address: [address] [place] [address] Performed By: #### A LLBG ####[facility] [id number] [place] [address] [place] Calcium.ionized adjusted to pH 7.4 (BldA) [Moles/Vol] 1.28 mmol/L Normal 1.08-1.30 [facility] Comment on above: Order Comment: Speci men Type: ARTERIAL BLOOD SPECIMENOrdering Facility: [facility] Address: [address] [place] [address] Performed By: #### A LLBG ####[facility] [id number] [place] [address] [place] Carboxyhemoglobin (BldA) [Mass fraction] 1.8 % Normal 0.0-2.0 [facility] Comment on above: Order Comment: Speci men Type: ARTERIAL BLOOD SPECIMENOrdering Facility: [facility] Address: [address] [place] [address] Result Comment: Carb oxyhemoglobin Reference Range for Smokers: 2.0-8.0% Performed By: #### A LLBG ####[facility] [id number] [place] [address] [place] CO2 (Bld) [Partial pressure] 40 mm Hg Normal 36-46 [facility] Comment on above: Order Comment: Speci men Type: ARTERIAL BLOOD SPECIMENOrdering Facility: [facility] Address: [address] [place] [address] Performed By: #### A LLBG ####[facility] LABCLIA [id number] [place] [address] [place] Glucose [Mass/Vol] 118 mg/dL High 60-105 [facility] Comment on above: Order Comment: Speci men Type: ARTERIAL BLOOD SPECIMENOrdering Facility: [facility] Address: [address] [place] [address] Performed By: #### A LLBG ####[facility] LABCLIA [id number] [place] [address] [place] HCO3 (Bld) [Moles/Vol] 26 mmol/L Normal 22-26 [facility] Comment on above: Order Comment: Speci men Type: ARTERIAL BLOOD SPECIMENOrdering Facility: [facility] Address: [address] [place] [address] Performed By: #### A LLBG ####[facility] LABCLIA [id number] [place] [address] [place] Hematocrit (Bld) [Volume fraction] 37.5 % Normal 36.0-46.0 [facility] Comment on above: Order Comment: Speci men Type: ARTERIAL BLOOD SPECIMENOrdering Facility: [facility] Address: [address] [place] [address] Performed By: #### A LLBG ####[facility] LABCLIA [id number] [place] [address] [place] Hemoglobin (Bld) [Mass/Vol] 12.2 g/dL Normal 11.5-15.5 [facility] Comment on above: Order Comment: Speci men Type: ARTERIAL BLOOD SPECIMENOrdering Facility: [facility] Address: [address] [place] [address] Performed By: #### A LLBG ####[facility] LABCLIA [id number] [place] [address] [place] Lactate [Moles/Vol] 1.6 mmol/L Normal 0.5-2.2 [facility] Comment on above: Order Comment: Speci men Type: ARTERIAL BLOOD SPECIMENOrdering Facility: [facility] Address: [address] [place] [address] Performed By: #### A LLBG ####[facility] LABCLIA [id number] [place] [address] [place] Methemoglobin (Bld) [Mass fraction] 1.3 % Normal 0.0-1.5 [facility] Comment on above: Order Comment: Speci men Type: ARTERIAL BLOOD SPECIMENOrdering Facility: [facility] Address: [address] [place] [address] Performed By: #### A LLBG ####[facility] LABCLIA [id number] [place] [address] [place] O2 THERAPY NC = Nasal Cannula Normal [facility] Comment on above: Order Comment: Speci men Type: ARTERIAL BLOOD SPECIMENOrdering Facility: [facility] Address: [address] [place] [address] Performed By: #### A LLBG ####[facility] LABCLIA [id number] [place] [address] [place] Oxygen (Bld) [Partial pressure] 85 mm Hg Normal 85-95 [facility] Comment on above: Order Comment: Speci men Type: ARTERIAL BLOOD SPECIMENOrdering Facility: [facility] Address: [address] [place] [address] Performed By: #### A LLBG ####[facility] LABCLIA [id number] [place] [address] [place] Oxyhemoglobin (BldA) [Mass fraction] 94 % Low 95-98 [facility] Comment on above: Order Comment: Speci men Type: ARTERIAL BLOOD SPECIMENOrdering Facility: [facility] Address: [address] [place] [address] Performed By: #### A LLBG ####[facility] LABCLIA [id number] [place] [address] [place] pH (Bld) 7.42 [pH] Normal 7.35-7.45 [facility] Comment on above: Order Comment: Speci men Type: ARTERIAL BLOOD SPECIMENOrdering Facility: [facility] Address: [address] [place] [address] Performed By: #### A LLBG ####[facility] LABCLIA [id number] [place] [address] [place] Potassium [Moles/Vol] 4.4 mmol/L Normal 3.5-5.0 [facility] Comment on above: Order Comment: Speci men Type: ARTERIAL BLOOD SPECIMENOrdering Facility: [facility] Address: [address] [place] [address] Performed By: #### A LLBG ####[facility] LABCLIA [id number] [place] [address] [place] Sodium [Moles/Vol] 132 mmol/L Low 136-144 [facility] Comment on above: Order Comment: Speci men Type: ARTERIAL BLOOD SPECIMENOrdering Facility: [facility] Address: [address] [place] [address] Performed By: #### A LLBG ####[facility] LABCLIA [id number] [place] [address] [place] Base excess Calc (Bld) [Moles/Vol] 2 mmol/L Normal 0-2 [facility] Comment on above: Order Comment: Speci men Type: ARTERIAL BLOOD SPECIMENOrdering Facility: [facility] Address: [address] [place] [address] Performed By: #### A LLBG ####[facility] LABCLIA [id number] [place] [address] [place] Body temperature 98.6 [degF] Normal [facility] Comment on above: Order Comment: Speci men Type: ARTERIAL BLOOD SPECIMENOrdering Facility: [facility] Address: [address] [place] [address] Performed By: #### A LLBG ####[facility] LABIA [id number] [place] [address] [place] Calcium.ionized (Bld) [Mass/Vol] 1.25 mmol/L Normal 1.08-1.30 [facility] Comment on above: Order Comment: Speci men Type: ARTERIAL BLOOD SPECIMENOrdering Facility: [facility] Address: [address] [place] [address] Performed By: #### A LLBG ####[facility] LABIA [id number] [place] [address] [place] Calcium.ionized adjusted to pH 7.4 (BldA) [Moles/Vol] 1.24 mmol/L Normal 1.08-1.30 [facility] Comment on above: Order Comment: Speci men Type: ARTERIAL BLOOD SPECIMENOrdering Facility: [facility] Address: [address] [place] [address] Performed By: #### A LLBG ####[facility] LABIA [id number] [place] [address] [place] Carboxyhemoglobin (BldA) [Mass fraction] 1.5 % Normal 0.0-2.0 [facility] Comment on above: Order Comment: Speci men Type: ARTERIAL BLOOD SPECIMENOrdering Facility: [facility] Address: [address] [place] [address] Result Comment: Carb oxyhemoglobin Reference Range for Smokers: 2.0-8.0% Performed By: #### A LLBG ####[facility] LABIA [id number] [place] [address] [place] CO2 (Bld) [Partial pressure] 44 mm Hg Normal 36-46 [facility] Comment on above: Order Comment: Speci men Type: ARTERIAL BLOOD SPECIMENOrdering Facility: [facility] Address: [address] [place] [address] Performed By: #### A LLBG ####[facility] LABCLIA [id number] [place] [address] [place] Glucose [Mass/Vol] 139 mg/dL High 60-105 [facility] Comment on above: Order Comment: Speci men Type: ARTERIAL BLOOD SPECIMENOrdering Facility: [facility] Address: [address] [place] [address] Performed By: #### A LLBG ####[facility] LABCLIA [id number] [place] [address] [place] HCO3 (Bld) [Moles/Vol] 27 mmol/L High 22-26 [facility] Comment on above: Order Comment: Speci men Type: ARTERIAL BLOOD SPECIMENOrdering Facility: [facility] Address: [address] [place] [address] Performed By: #### A LLBG ####[facility] LABCLIA [id number] [place] [address] [place] Hematocrit (Bld) [Volume fraction] 37.0 % Normal 36.0-46.0 [facility] Comment on above: Order Comment: Speci men Type: ARTERIAL BLOOD SPECIMENOrdering Facility: [facility] Address: [address] [place] [address] Performed By: #### A LLBG ####[facility] LABCLIA [id number] [place] [address] [place] Hemoglobin (Bld) [Mass/Vol] 12.0 g/dL Normal 11.5-15.5 [facility] Comment on above: Order Comment: Speci men Type: ARTERIAL BLOOD SPECIMENOrdering Facility: [facility] Address: [address] [place] [address] Performed By: #### A LLBG ####[facility] LABCLIA [id number] [place] [address] [place] Lactate [Moles/Vol] 1.6 mmol/L Normal 0.5-2.2 [facility] Comment on above: Order Comment: Speci men Type: ARTERIAL BLOOD SPECIMENOrdering Facility: [facility] Address: [address] [place] [address] Performed By: #### A LLBG ####[facility] LABCLIA [id number] [place] [address] [place] Methemoglobin (Bld) [Mass fraction] 1.5 % Normal 0.0-1.5 [facility] Comment on above: Order Comment: Speci men Type: ARTERIAL BLOOD SPECIMENOrdering Facility: [facility] Address: [address] [place] [address] Performed By: #### A LLBG ####[facility] LABCLIA [id number] [place] [address] [place] O2 THERAPY NC = Nasal Cannula Normal [facility] Comment on above: Order Comment: Speci men Type: ARTERIAL BLOOD SPECIMENOrdering Facility: [facility] Address: [address] [place] [address] Performed By: #### A LLBG ####[facility] LABCLIA [id number] [place] [address] [place] Oxygen (Bld) [Partial pressure] 106 mm Hg High 85-95 [facility] Comment on above: Order Comment: Speci men Type: ARTERIAL BLOOD SPECIMENOrdering Facility: [facility] Address: [address] [place] [address] Performed By: #### A LLBG ####[facility] LABCLIA [id number] [place] [address] [place] Oxyhemoglobin (BldA) [Mass fraction] 95 % Normal 95-98 [facility] Comment on above: Order Comment: Speci men Type: ARTERIAL BLOOD SPECIMENOrdering Facility: [facility] Address: [address] [place] [address] Performed By: #### A LLBG ####[facility] LABCLIA [id number] [place] [address] [place] pH (Bld) 7.40 [pH] Normal 7.35-7.45 [facility] Comment on above: Order Comment: Speci men Type: ARTERIAL BLOOD SPECIMENOrdering Facility: [facility] Address: [address] [place] [address] Performed By: #### A LLBG ####[facility] LABCLIA [id number] [place] [address] [place] Potassium [Moles/Vol] 4.2 mmol/L Normal 3.5-5.0 [facility] Comment on above: Order Comment: Speci men Type: ARTERIAL BLOOD SPECIMENOrdering Facility: [facility] Address: [address] [place] [address] Performed By: #### A LLBG ####[facility] LABIA [id number] [place] [address] [place] Sodium [Moles/Vol] 131 mmol/L Low 136-144 [facility] Comment on above: Order Comment: Speci men Type: ARTERIAL BLOOD SPECIMENOrdering Facility: [facility] Address: [address] [place] [address] Performed By: #### A LLBG ####[facility] LABIA [id number] [place] [address] [place] Base excess Calc (Bld) [Moles/Vol] 1 mmol/L Normal 0-2 [facility] Comment on above: Order Comment: Speci men Type: ARTERIAL BLOOD SPECIMENOrdering Facility: [facility] Address: [address] [place] [address] Performed By: #### A LLBG ####[facility] LABIA [id number] [place] [address] [place] Body temperature 98.6 [degF] Normal [facility] Comment on above: Order Comment: Speci men Type: ARTERIAL BLOOD SPECIMENOrdering Facility: [facility] Address: [address] [place] [address] Performed By: #### A LLBG ####[facility] LABCLIA [id number] [place] [address] [place] Calcium.ionized (Bld) [Mass/Vol] 1.28 mmol/L Normal 1.08-1.30 [facility] Comment on above: Order Comment: Speci men Type: ARTERIAL BLOOD SPECIMENOrdering Facility: [facility] Address: [address] [place] [address] Performed By: #### A LLBG ####[facility] LABIA [id number] [place] [address] [place] Calcium.ionized adjusted to pH 7.4 (BldA) [Moles/Vol] 1.28 mmol/L Normal 1.08-1.30 [facility] Comment on above: Order Comment: Speci men Type: ARTERIAL BLOOD SPECIMENOrdering Facility: [facility] Address: [address] [place] [address] Performed By: #### A LLBG ####[facility] LABIA [id number] [place] [address] [place] Carboxyhemoglobin (BldA) [Mass fraction] 1.1 % Normal 0.0-2.0 [facility] Comment on above: Order Comment: Speci men Type: ARTERIAL BLOOD SPECIMENOrdering Facility: [facility] Address: [address] [place] [address] Result Comment: Carb oxyhemoglobin Reference Range for Smokers: 2.0-8.0% Performed By: #### A LLBG ####[facility] LABIA [id number] [place] [address] [place] CO2 (Bld) [Partial pressure] 42 mm Hg Normal 36-46 [facility] Comment on above: Order Comment: Speci men Type: ARTERIAL BLOOD SPECIMENOrdering Facility: [facility] Address: [address] [place] [address] Performed By: #### A LLBG ####[facility] LABCLIA [id number] [place] [address] [place] Glucose [Mass/Vol] 153 mg/dL High 60-105 [facility] Comment on above: Order Comment: Speci men Type: ARTERIAL BLOOD SPECIMENOrdering Facility: [facility] Address: [address] [place] [address] Performed By: #### A LLBG ####[facility] LABCLIA [id number] [place] [address] [place] HCO3 (Bld) [Moles/Vol] 25 mmol/L Normal 22-26 [facility] Comment on above: Order Comment: Speci men Type: ARTERIAL BLOOD SPECIMENOrdering Facility: [facility] Address: [address] [place] [address] Performed By: #### A LLBG ####[facility] LABCLIA [id number] [place] [address] [place] Hematocrit (Bld) [Volume fraction] 37.6 % Normal 36.0-46.0 [facility] Comment on above: Order Comment: Speci men Type: ARTERIAL BLOOD SPECIMENOrdering Facility: [facility] Address: [address] [place] [address] Performed By: #### A LLBG ####[facility] LABCLIA [id number] [place] [address] [place] Hemoglobin (Bld) [Mass/Vol] 12.2 g/dL Normal 11.5-15.5 [facility] Comment on above: Order Comment: Speci men Type: ARTERIAL BLOOD SPECIMENOrdering Facility: [facility] Address: [address] [place] [address] Performed By: #### A LLBG ####[facility] LABCLIA [id number] [place] [address] [place] Lactate [Moles/Vol] 2.0 mmol/L Normal 0.5-2.2 [facility] Comment on above: Order Comment: Speci men Type: ARTERIAL BLOOD SPECIMENOrdering Facility: [facility] Address: [address] [place], [place] [address] Performed By: #### A LLBG ####[facility] LABCLIA [id number] [place] [address] [place] Methemoglobin (Bld) [Mass fraction] 1.2 % Normal 0.0-1.5 [facility] Comment on above: Order Comment: Speci men Type: ARTERIAL BLOOD SPECIMENOrdering Facility: [facility] Address: [address] [place] [address] Performed By: #### A LLBG ####[facility] LABCLIA [id number] [place] [address] [place] O2 THERAPY NC = Nasal Cannula Normal [facility] Comment on above: Order Comment: Speci men Type: ARTERIAL BLOOD SPECIMENOrdering Facility: [facility] Address: [address] [place] [address] Performed By: #### A LLBG ####[facility] LABCLIA [id number] [place] [address] [place] Oxygen (Bld) [Partial pressure] 115 mm Hg High 85-95 [facility] Comment on above: Order Comment: Speci men Type: ARTERIAL BLOOD SPECIMENOrdering Facility: [facility] Address: [address] [place] [address] Performed By: #### A LLBG ####[facility] LABCLIA [id number] [place] [id number] [place] Oxyhemoglobin (BldA) [Mass fraction] 96 % Normal 95-98 [facility] Comment on above: Order Comment: Speci men Type: ARTERIAL BLOOD SPECIMENOrdering Facility: [facility] Address: [address] [place] [address] Performed By: #### A LLBG ####[facility] LABIA [id number] [place] [address] [place] pH (Bld) 7.40 [pH] Normal 7.35-7.45 [facility] Comment on above: Order Comment: Speci men Type: ARTERIAL BLOOD SPECIMENOrdering Facility: [facility] Address: [address] [place] [address] Performed By: #### A LLBG ####[facility] LABIA [id number] [place] [address] [place] Potassium [Moles/Vol] 4.5 mmol/L Normal 3.5-5.0 [facility] Comment on above: Order Comment: Speci men Type: ARTERIAL BLOOD SPECIMENOrdering Facility: [facility] Address: [address] [place] [address] Performed By: #### A LLBG ####[facility] LABIA [id number] [place] [address] [place] Sodium [Moles/Vol] 132 mmol/L Low 136-144 [facility] Comment on above: Order Comment: Speci men Type: ARTERIAL BLOOD SPECIMENOrdering Facility: [facility] Address: [address] [place] [address] Performed By: #### A LLBG ####[facility] LABIA [id number] [place] [address] [place] CASE MGT INIT ASSESon 2023 CASE MGT INIT ASSES Normal [facility] CBC panel Auto (Bld)on 07-30 Erythrocyte distribution width (RBC) [Ratio] 12.1 % Normal 11.5-15.0 [facility] Comment on above: Order Comment: Speci men Type: BLOOD SPECIMENOrdering Facility: [facility] Address: [address] [place] [address] Performed By: #### 5 8410-2 ####[facility] LABIA [id number] [place] [address] [place] Hematocrit (Bld) [Volume fraction] 34.5 % Low 36.0-46.0 [facility] Comment on above: Order Comment: Speci men Type: BLOOD SPECIMENOrdering Facility: [facility] Address: [address] [place] [address] Performed By: #### 5 8410-2 ####[facility] LABIA [id number] [place] [address] [place] Hemoglobin (Bld) [Mass/Vol] 12.0 g/dL Normal 11.5-15.5 [facility] Comment on above: Order Comment: Speci men Type: BLOOD SPECIMENOrdering Facility: [facility] Address: [address] [place] [address] Performed By: #### 5 8410-2 ####[facility] [id number] [place] [address] [place] MCH (RBC) [Entitic mass] 31.6 pg Normal 26.0-34.0 [facility] Comment on above: Order Comment: Speci men Type: BLOOD SPECIMENOrdering Facility: [facility] Address: [address] [place] [address] Performed By: #### 5 8410-2 ####[facility] [id number] [place] [address] [place] MCHC (RBC) [Mass/Vol] 34.8 g/dL Normal 30.5-36.0 [facility] Comment on above: Order Comment: Speci men Type: BLOOD SPECIMENOrdering Facility: [facility] Address: [address] [place] [address] Performed By: #### 5 8410-2 ####[facility] [id number] [place] [address] [place] MCV (RBC) [Entitic vol] 90.8 fL Normal 80.0-100.0 [facility] Comment on above: Order Comment: Speci men Type: BLOOD SPECIMENOrdering Facility: [facility] Address: [address] [place] [address] Performed By: #### 5 8410-2 ####[facility] LABCLIA [id number] [place] [address] [place] Nucleated RBC (Bld) [#/Vol] 10*3/uL Normal <0.01 [facility] Comment on above: Order Comment: Speci men Type: BLOOD SPECIMENOrdering Facility: [facility] Address: [address] [place] [address] Performed By: #### 5 8410-2 ####[facility] LABCLIA [id number] [place] [address] [place] Platelet mean volume (Bld) [Entitic vol] 9.7 fL Normal 9.0-12.7 [facility] Comment on above: Order Comment: Speci men Type: BLOOD SPECIMENOrdering Facility: [facility] Address: [address] [place] [address] Performed By: #### 5 8410-2 ####[facility] LABIA [id number] [place] [address] [place] Platelets (Bld) [#/Vol] 169 10*3/uL Normal 150-400 [facility] Comment on above: Order Comment: Speci men Type: BLOOD SPECIMENOrdering Facility: [facility] Address: [address] [place] [address] Performed By: #### 5 8410-2 ####[facility] LABCLIA [id number] [place] [address] [place] RBC (Bld) [#/Vol] 3.80 10*6/uL Low 3.90-5.20 [facility] Comment on above: Order Comment: Speci men Type: BLOOD SPECIMENOrdering Facility: [facility] Address: [address] [place] [address] Performed By: #### 5 8410-2 ####[facility] LABCLIA [id number] [place] [address] [place] WBC (Bld) [#/Vol] 10.11 10*3/uL Normal 3.70-11.00 [facility] Comment on above: Order Comment: Speci men Type: BLOOD SPECIMENOrdering Facility: [facility] Address: [address] [place] [address] Performed By: #### 5 8410-2 ####[facility] LABIA [id number] [place] [address] [place] Comprehensive metabolic 2000 panelon 07-30-2023 Albumin [Mass/Vol] 3.1 g/dL Low 3.9-4.9 [facility] Comment on above: Order Comment: Speci men Type: BLOOD SPECIMENOrdering Facility: [facility] Address: [address] [place] [address] Performed By: #### 2 4323-8, HSTNT ####[facility] LABIA [id number] [place] [address] [place] ALP [Catalytic activity/Vol] 56 U/L Normal 34-123 [facility] Comment on above: Order Comment: Speci men Type: BLOOD SPECIMENOrdering Facility: [facility] Address: [address] [place] [address] Performed By: #### 2 4323-8, HSTNT ####[facility] LABCLIA [id number] [place] [address] [place] ALT [Catalytic activity/Vol] 14 U/L Normal 7-38 [facility] Comment on above: Order Comment: Speci men Type: BLOOD SPECIMENOrdering Facility: [facility] Address: [address] [place] [address] Performed By: #### 2 4323-8, HSTNT ####[facility] LABCLIA [id number] [place] [address] [place] Anion gap [Moles/Vol] 10 mmol/L Normal 9-18 [facility] Comment on above: Order Comment: Speci men Type: BLOOD SPECIMENOrdering Facility: [facility] Address: [address] [place] [address] Performed By: #### 2 4323-8, HSTNT ####[facility] LABCLIA [id number] [place] [address] [place] AST [Catalytic activity/Vol] 29 U/L Normal 13-35 [facility] Comment on above: Order Comment: Speci men Type: BLOOD SPECIMENOrdering Facility: [facility] Address: [address] [place] [address] Performed By: #### 2 4323-8, HSTNT ####[facility] LABCLIA [id number] [place] [address] [place] Bilirubin [Mass/Vol] 0.4 mg/dL Normal 0.2-1.3 [facility] Comment on above: Order Comment: Speci men Type: BLOOD SPECIMENOrdering Facility: [facility] Address: [address] [place] [address] Performed By: #### 2 4323-8, HSTNT ####[facility] LABCLIA [id number] [place] [address] [place] Calcium [Mass/Vol] 8.9 mg/dL Normal 8.5-10.2 [facility] Comment on above: Order Comment: Speci men Type: BLOOD SPECIMENOrdering Facility: [facility] Address: [address] [place] [address] Performed By: #### 2 4323-8, HSTNT ####[facility] LABCLIA [id number] [place] [address] [place] Chloride [Moles/Vol] 101 mmol/L Normal 97-105 [facility] Comment on above: Order Comment: Speci men Type: BLOOD SPECIMENOrdering Facility: [facility] Address: [address] [place] [address] Performed By: #### 2 4323-8, HSTNT ####[facility] LABCLIA [id number] [place] [address] [place] CO2 [Moles/Vol] 23 mmol/L Normal 22-30 [facility] Comment on above: Order Comment: Speci men Type: BLOOD SPECIMENOrdering Facility: [facility] Address: [address] [place] [address] Performed By: #### 2 4323-8, HSTNT ####[facility] LABCLIA [id number] [place] [address] [place] Creatinine [Mass/Vol] 0.70 mg/dL Normal 0.58-0.96 [facility] Comment on above: Order Comment: Speci men Type: BLOOD SPECIMENOrdering Facility: [facility] Address: [address] [place] [address] Performed By: #### 2 4323-8, HSTNT ####[facility] LABCLIA [id number] [place] [address] [place] Creatinine and Glomerular filtration rate.predicted panel (S/P/Bld) 96 mL/min/1.73m??? Normal >=60 [facility] Comment on above: Order Comment: Speci men Type: BLOOD SPECIMENOrdering Facility: [facility] Address: [address] [place] [address] Result Comment: Annelise mated Glomerular Filtration Rate [...] GFR. Performed By: #### 2 4323-8, HSTNT ####[facility] LABCLIA [id number] [place] [address] [place] Glucose [Mass/Vol] 145 mg/dL High 74-99 [facility] Comment on above: Order Comment: Speci men Type: BLOOD SPECIMENOrdering Facility: [facility] Address: [address] [place] [address] Result Comment: The [place] [employer] (ADA) provides guidance for cutoff [...] Standards of Medical Care in Diabetes 2016, [place] [employer]. Diabetes Care. 2016.39(Suppl 1). Performed By: #### 2 4323-8, HSTNT ####[facility] LABIA [id number] [place] [address] [place] Potassium [Moles/Vol] 4.7 mmol/L Normal 3.7-5.1 [facility] Comment on above: Order Comment: Speci men Type: BLOOD SPECIMENOrdering Facility: [facility] Address: [address] [place] [address] Performed By: #### 2 4323-8, HSTNT ####[facility] LABIA [id number] [place] [address] [place] Protein [Mass/Vol] 5.2 g/dL Low 6.3-8.0 [facility] Comment on above: Order Comment: Speci men Type: BLOOD SPECIMENOrdering Facility: [facility] Address: [address] [place] [address] Performed By: #### 2 4323-8, HSTNT ####[facility] LABCLIA [id number] [place] [address] [place] Sodium [Moles/Vol] 134 mmol/L Low 136-144 [facility] Comment on above: Order Comment: Speci men Type: BLOOD SPECIMENOrdering Facility: [facility] Address: [address] [place] [address] Performed By: #### 2 4323-8, HSTNT ####[facility] LABCLIA [id number] [place] [address] [place] Urea nitrogen [Mass/Vol] 20 mg/dL Normal 7-21 [facility] Comment on above: Order Comment: Speci men Type: BLOOD SPECIMENOrdering Facility: [facility] Address: [address] [place] [address] Performed By: #### 2 4323-8, HSTNT ####[facility] LABCLIA [id number] [place] [address] [place] HIGH SENSITIVITY TROPONIN To n 07-30-2023 Troponin T.cardiac High sensitivity method [Mass/Vol] 317 ng/L High <12 [facility] Comment on above: Order Comment: Speci men Type: BLOOD SPECIMENOrdering Facility: [facility] Address: [address] [place] [address] Result Comment: When assessing risk for acute [...] MACE. Performed By: #### 2 4323-8, HSTNT ####[facility] LABCLIA [id number] [place] [id number] [place] XR CHEST 1V FRONTAL PORTon 0 07-30-2023 XR CHEST 1V FRONTAL PORT Normal [facility] ANES POSTPROC EVALon 024 ANES POSTPROC EVAL Normal [facility] ANES PRE-OPon 07-29-2023 ANES PRE-OP Normal [facility] ARTERIAL BLOOD GASESon 07-29 Base excess Calc (Bld) [Moles/Vol] 1 mmol/L Normal 0-2 [facility] Comment on above: Order Comment: Speci men Type: ARTERIAL BLOOD SPECIMENOrdering Facility: [facility] Address: [address] [place] [address] Performed By: #### A LLBG ####[facility] LABCLIA [id number] [place] [address] [place] Body temperature 98.6 [degF] Normal [facility] Comment on above: Order Comment: Speci men Type: ARTERIAL BLOOD SPECIMENOrdering Facility: [facility] Address: [address] [place] [address] Performed By: #### A LLBG ####[facility] LABCLIA [id number] [place] [address] [place] Calcium.ionized (Bld) [Mass/Vol] 1.26 mmol/L Normal 1.08-1.30 [facility] Comment on above: Order Comment: Speci men Type: ARTERIAL BLOOD SPECIMENOrdering Facility: [facility] Address: [address] [place] [address] Performed By: #### A LLBG ####[facility] LABCLIA [id number] [place] [address] [place] Calcium.ionized adjusted to pH 7.4 (BldA) [Moles/Vol] 1.25 mmol/L Normal 1.08-1.30 [facility] Comment on above: Order Comment: Speci men Type: ARTERIAL BLOOD SPECIMENOrdering Facility: [facility] Address: [address] [place] [address] Performed By: #### A LLBG ####[facility] LABCLIA [id number] [place] [address] [place] Carboxyhemoglobin (BldA) [Mass fraction] 1.2 % Normal 0.0-2.0 [facility] Comment on above: Order Comment: Speci men Type: ARTERIAL BLOOD SPECIMENOrdering Facility: [facility] Address: [address] [place] [address] Result Comment: Carb oxyhemoglobin Reference Range for Smokers: 2.0-8.0% Performed By: #### A LLBG ####[facility] LABIA [id number] [place] [address] [place] CO2 (Bld) [Partial pressure] 43 mm Hg Normal 36-46 [facility] Comment on above: Order Comment: Speci men Type: ARTERIAL BLOOD SPECIMENOrdering Facility: [facility] Address: [address] [place] [address] Performed By: #### A LLBG ####[facility] LABIA [id number] [place] [address] [place] Glucose [Mass/Vol] 164 mg/dL High 60-105 [facility] Comment on above: Order Comment: Speci men Type: ARTERIAL BLOOD SPECIMENOrdering Facility: [facility] Address: [address] [place] [address] Performed By: #### A LLBG ####[facility] LABIA [id number] [place] [address] [place] HCO3 (Bld) [Moles/Vol] 26 mmol/L Normal 22-26 [facility] Comment on above: Order Comment: Speci men Type: ARTERIAL BLOOD SPECIMENOrdering Facility: [facility] Address: [address] [place] [address] Performed By: #### A LLBG ####[facility] LABIA [id number] [place] [address] [place] Hematocrit (Bld) [Volume fraction] 36.7 % Normal 36.0-46.0 [facility] Comment on above: Order Comment: Speci men Type: ARTERIAL BLOOD SPECIMENOrdering Facility: [facility] Address: [address] [place] [address] Performed By: #### A LLBG ####[facility] [id number] [place] [address] [place] Hemoglobin (Bld) [Mass/Vol] 11.9 g/dL Normal 11.5-15.5 [facility] Comment on above: Order Comment: Speci men Type: ARTERIAL BLOOD SPECIMENOrdering Facility: [facility] Address: [address] [place] [address] Performed By: #### A LLBG ####[facility] [id number] [place] [address] [place] Lactate [Moles/Vol] 1.1 mmol/L Normal 0.5-2.2 [facility] Comment on above: Order Comment: Speci men Type: ARTERIAL BLOOD SPECIMENOrdering Facility: [facility] Address: [address] [place] [address] Performed By: #### A LLBG ####[facility] [id number] [place] [address] [place] Methemoglobin (Bld) [Mass fraction] 0.9 % Normal 0.0-1.5 [facility] Comment on above: Order Comment: Speci men Type: ARTERIAL BLOOD SPECIMENOrdering Facility: [facility] Address: [address] [place] [address] Performed By: #### A LLBG ####[facility] [id number] [place] [address] [place] O2 THERAPY NC = Nasal Cannula Normal [facility] Comment on above: Order Comment: Speci men Type: ARTERIAL BLOOD SPECIMENOrdering Facility: [facility] Address: [address] [place] [address] Performed By: #### A LLBG ####[facility] LABCLIA [id number] [place] [address] [place] Oxygen (Bld) [Partial pressure] 95 mm Hg Normal 85-95 [facility] Comment on above: Order Comment: Speci men Type: ARTERIAL BLOOD SPECIMENOrdering Facility: [facility] Address: [address] [place] [address] Performed By: #### A LLBG ####[facility] LABCLIA [id number] [place] [address] [place] Oxyhemoglobin (BldA) [Mass fraction] 96 % Normal 95-98 [facility] Comment on above: Order Comment: Speci men Type: ARTERIAL BLOOD SPECIMENOrdering Facility: [facility] Address: [address] [place] [address] Performed By: #### A LLBG ####[facility] LABCLIA [id number] [place] [address] [place] pH (Bld) 7.39 [pH] Normal 7.35-7.45 [facility] Comment on above: Order Comment: Speci men Type: ARTERIAL BLOOD SPECIMENOrdering Facility: [facility] Address: [address] [place] [address] Performed By: #### A LLBG ####[facility] LABCLIA [id number] [place] [address] [place] Potassium [Moles/Vol] 4.4 mmol/L Normal 3.5-5.0 [facility] Comment on above: Order Comment: Speci men Type: ARTERIAL BLOOD SPECIMENOrdering Facility: [facility] Address: [address] [place] [address] Performed By: #### A LLBG ####[facility] LABCLIA [id number] [place] [address] [place] Sodium [Moles/Vol] 132 mmol/L Low 136-144 [facility] Comment on above: Order Comment: Speci men Type: ARTERIAL BLOOD SPECIMENOrdering Facility: [facility] Address: [address] [place] [address] Performed By: #### A LLBG ####[facility] LABCLIA [id number] [place] [address] [place] Base excess Calc (Bld) [Moles/Vol] 0 mmol/L Normal 0-2 [facility] Comment on above: Order Comment: Speci men Type: ARTERIAL BLOOD SPECIMENOrdering Facility: [facility] Address: [address] [place] [address] Performed By: #### A LLBG ####[facility] LABIA [id number] [place] [address] [place] Body temperature 98.6 [degF] Normal [facility] Comment on above: Order Comment: Speci men Type: ARTERIAL BLOOD SPECIMENOrdering Facility: [facility] Address: [address] [place] [address] Performed By: #### A LLBG ####[facility] LABCLIA [id number] [place] [address] [place] Calcium.ionized (Bld) [Mass/Vol] 1.28 mmol/L Normal 1.08-1.30 [facility] Comment on above: Order Comment: Speci men Type: ARTERIAL BLOOD SPECIMENOrdering Facility: [facility] Address: [address] [place] [address] Performed By: #### A LLBG ####[facility] LABCLIA [id number] [place] [address] [place] Calcium.ionized adjusted to pH 7.4 (BldA) [Moles/Vol] 1.26 mmol/L Normal 1.08-1.30 [facility] Comment on above: Order Comment: Speci men Type: ARTERIAL BLOOD SPECIMENOrdering Facility: [facility] Address: [address] [place] [address] Performed By: #### A LLBG ####[facility] LABCLIA [id number] [place] [address] [place] Carboxyhemoglobin (BldA) [Mass fraction] 1.9 % Normal 0.0-2.0 [facility] Comment on above: Order Comment: Speci men Type: ARTERIAL BLOOD SPECIMENOrdering Facility: [facility] Address: [address] [place] [address] Result Comment: Carb oxyhemoglobin Reference Range for Smokers: 2.0-8.0% Performed By: #### A LLBG ####[facility] LABCLIA [id number] [place] [address] [place] CO2 (Bld) [Partial pressure] 45 mm Hg Normal 36-46 [facility] Comment on above: Order Comment: Speci men Type: ARTERIAL BLOOD SPECIMENOrdering Facility: [facility] Address: [address] [place] [address] Performed By: #### A LLBG ####[facility] LABCLIA [id number] [place] [address] [place] Glucose [Mass/Vol] 143 mg/dL High 60-105 [facility] Comment on above: Order Comment: Speci men Type: ARTERIAL BLOOD SPECIMENOrdering Facility: [facility] Address: [address] [place] [address] Performed By: #### A LLBG ####[facility] LABCLIA [id number] [place] [address] [place] HCO3 (Bld) [Moles/Vol] 25 mmol/L Normal 22-26 [facility] Comment on above: Order Comment: Speci men Type: ARTERIAL BLOOD SPECIMENOrdering Facility: [facility] Address: [address] [place] [address] Performed By: #### A LLBG ####[facility] LABCLIA [id number] [place] [address] [place] Hematocrit (Bld) [Volume fraction] 36.2 % Normal 36.0-46.0 [facility] Comment on above: Order Comment: Speci men Type: ARTERIAL BLOOD SPECIMENOrdering Facility: [facility] Address: [address] [place] [address] Performed By: #### A LLBG ####[facility] LABIA [id number] [place] [address] [place] Hemoglobin (Bld) [Mass/Vol] 11.7 g/dL Normal 11.5-15.5 [facility] Comment on above: Order Comment: Speci men Type: ARTERIAL BLOOD SPECIMENOrdering Facility: [facility] Address: [address] [place] [address] Performed By: #### A LLBG ####[facility] LABIA [id number] [place] [address] [place] Lactate [Moles/Vol] 2.3 mmol/L High 0.5-2.2 [facility] Comment on above: Order Comment: Speci men Type: ARTERIAL BLOOD SPECIMENOrdering Facility: [facility] Address: [address] [place] [address] Performed By: #### A LLBG ####[facility] LABIA [id number] [place] [address] [place] Methemoglobin (Bld) [Mass fraction] 0.7 % Normal 0.0-1.5 [facility] Comment on above: Order Comment: Speci men Type: ARTERIAL BLOOD SPECIMENOrdering Facility: [facility] Address: [address] [place] [address] Performed By: #### A LLBG ####[facility] LABIA [id number] [place] [address] [place] O2 THERAPY NC = Nasal Cannula Normal [facility] Comment on above: Order Comment: Speci men Type: ARTERIAL BLOOD SPECIMENOrdering Facility: [facility] Address: [address] [place] [address] Performed By: #### A LLBG ####[facility] LABCLIA [id number] [place] [address] [place] Oxygen (Bld) [Partial pressure] 95 mm Hg Normal 85-95 [facility] Comment on above: Order Comment: Speci men Type: ARTERIAL BLOOD SPECIMENOrdering Facility: [facility] Address: [address] [place] [address] Performed By: #### A LLBG ####[facility] LABIA [id number] [place] [address] [place] Oxyhemoglobin (BldA) [Mass fraction] 95 % Normal 95-98 [facility] Comment on above: Order Comment: Speci men Type: ARTERIAL BLOOD SPECIMENOrdering Facility: [facility] Address: [address] [place] [address] Performed By: #### A LLBG ####[facility] LABIA [id number] [place] [address] [place] pH (Bld) 7.37 [pH] Normal 7.35-7.45 [facility] Comment on above: Order Comment: Speci men Type: ARTERIAL BLOOD SPECIMENOrdering Facility: [facility] Address: [address] [place] [address] Performed By: #### A LLBG ####[facility] LABIA [id number] [place] [address] [place] Potassium [Moles/Vol] 4.4 mmol/L Normal 3.5-5.0 [facility] Comment on above: Order Comment: Speci men Type: ARTERIAL BLOOD SPECIMENOrdering Facility: [facility] Address: [address] [place] [address] Performed By: #### A LLBG ####[facility] LABIA [id number] [place] [address] [place] Sodium [Moles/Vol] 134 mmol/L Low 136-144 [facility] Comment on above: Order Comment: Speci men Type: ARTERIAL BLOOD SPECIMENOrdering Facility: [facility] Address: [address] [place] [address] Performed By: #### A LLBG ####[facility] LABIA [id number] [place] [address] [place] Base deficit (BldA) [Moles/Vol] -1 mmol/L Normal -2-0 [facility] Comment on above: Order Comment: Speci men Type: ARTERIAL BLOOD SPECIMENOrdering Facility: [facility] Address: [address] [place] [address] Performed By: #### A LLBG ####[facility] LABIA [id number] [place] [address] [place] Body temperature 98.6 [degF] Normal [facility] Comment on above: Order Comment: Speci men Type: ARTERIAL BLOOD SPECIMENOrdering Facility: [facility] Address: [address] [place] [address] Performed By: #### A LLBG ####[facility] LABIA [id number] [place] [address] [place] Calcium.ionized (Bld) [Mass/Vol] 1.29 mmol/L Normal 1.08-1.30 [facility] Comment on above: Order Comment: Speci men Type: ARTERIAL BLOOD SPECIMENOrdering Facility: [facility] Address: [address] [place] [address] Performed By: #### A LLBG ####[facility] LABIA [id number] [place] [address] [place] Calcium.ionized adjusted to pH 7.4 (BldA) [Moles/Vol] 1.25 mmol/L Normal 1.08-1.30 [facility] Comment on above: Order Comment: Speci men Type: ARTERIAL BLOOD SPECIMENOrdering Facility: [facility] Address: [address] [place] [address] Performed By: #### A LLBG ####[facility] LABCLIA [id number] [place] [address] [place] Carboxyhemoglobin (BldA) [Mass fraction] 1.7 % Normal 0.0-2.0 [facility] Comment on above: Order Comment: Speci men Type: ARTERIAL BLOOD SPECIMENOrdering Facility: [facility] Address: [address] [place] [address] Result Comment: Carb oxyhemoglobin Reference Range for Smokers: 2.0-8.0% Performed By: #### A LLBG ####[facility] LABCLIA [id number] [place] [address] [place] GAIL CO2 (Bld) [Partial pressure] 47 mm Hg High 36-46 [facility] Comment on above: Order Comment: Speci men Type: ARTERIAL BLOOD SPECIMENOrdering Facility: [facility] Address: [address] [place] [address] Performed By: #### A LLBG ####[facility] LABIA [id number] [place] [address] [place] Glucose [Mass/Vol] 216 mg/dL High 60-105 [facility] Comment on above: Order Comment: Speci men Type: ARTERIAL BLOOD SPECIMENOrdering Facility: [facility] Address: [address] [place] [address] Performed By: #### A LLBG ####[facility] LABCLIA [id number] [place] [address] [place] HCO3 (Bld) [Moles/Vol] 25 mmol/L Normal 22-26 [facility] Comment on above: Order Comment: Speci men Type: ARTERIAL BLOOD SPECIMENOrdering Facility: [facility] Address: [address] [place] [address] Performed By: #### A LLBG ####[facility] LABCLIA [id number] [place] [id number] [place] Hematocrit (Bld) [Volume fraction] 38.2 % Normal 36.0-46.0 [facility] Comment on above: Order Comment: Speci men Type: ARTERIAL BLOOD SPECIMENOrdering Facility: [facility] Address: [address] [place] [address] Performed By: #### A LLBG ####[facility] LABCLIA [id number] [place] [address] [place] Hemoglobin (Bld) [Mass/Vol] 12.4 g/dL Normal 11.5-15.5 [facility] Comment on above: Order Comment: Speci men Type: ARTERIAL BLOOD SPECIMENOrdering Facility: [facility] Address: [address] [place] [address] Performed By: #### A LLBG ####[facility] LABCLIA [id number] [place] [address] [place] Lactate [Moles/Vol] 1.2 mmol/L Normal 0.5-2.2 [facility] Comment on above: Order Comment: Speci men Type: ARTERIAL BLOOD SPECIMENOrdering Facility: [facility] Address: [address] [place] [address] Performed By: #### A LLBG ####[facility] LABCLIA [id number] [place] [address] [place] Methemoglobin (Bld) [Mass fraction] 0.8 % Normal 0.0-1.5 [facility] Comment on above: Order Comment: Speci men Type: ARTERIAL BLOOD SPECIMENOrdering Facility: [facility] Address: [address] [place] [address] Performed By: #### A LLBG ####[facility] LABCLIA [id number] [place] [address] [place] O2 THERAPY NC = Nasal Cannula Normal [facility] Comment on above: Order Comment: Speci men Type: ARTERIAL BLOOD SPECIMENOrdering Facility: [facility] Address: [address] [place] [address] Performed By: #### A LLBG ####[facility] LABIA [id number] [place] [address] [place] Oxygen (Bld) [Partial pressure] 127 mm Hg High 85-95 [facility] Comment on above: Order Comment: Speci men Type: ARTERIAL BLOOD SPECIMENOrdering Facility: [facility] Address: [address] [place] [address] Performed By: #### A LLBG ####[facility] LABIA [id number] [place] [address] [place] Oxyhemoglobin (BldA) [Mass fraction] 96 % Normal 95-98 [facility] Comment on above: Order Comment: Speci men Type: ARTERIAL BLOOD SPECIMENOrdering Facility: [facility] Address: [address] [place] [address] Performed By: #### A LLBG ####[facility] LABIA [id number] [place] [address] [place] pH (Bld) 7.34 [pH] Low 7.35-7.45 [facility] Comment on above: Order Comment: Speci men Type: ARTERIAL BLOOD SPECIMENOrdering Facility: [facility] Address: [address] [place] [address] Performed By: #### A LLBG ####[facility] LABIA [id number] [place] [address] [place] Potassium [Moles/Vol] 4.2 mmol/L Normal 3.5-5.0 [facility] Comment on above: Order Comment: Speci men Type: ARTERIAL BLOOD SPECIMENOrdering Facility: [facility] Address: [address] [place] [address] Performed By: #### A LLBG ####[facility] LABIA [id number] [place] [address] [place] Sodium [Moles/Vol] 134 mmol/L Low 136-144 [facility] Comment on above: Order Comment: Speci men Type: ARTERIAL BLOOD SPECIMENOrdering Facility: [facility] Address: [address] [place] [address] Performed By: #### A LLBG ####[facility] LABCLIA [id number] [place] [address] [place] Base excess Calc (Bld) [Moles/Vol] 0 mmol/L Normal 0-2 [facility] Comment on above: Order Comment: Speci men Type: ARTERIAL BLOOD SPECIMENOrdering Facility: [facility] Address: [address] [place] [address] Performed By: #### A LLBG ####[facility] LABCLIA [id number] [place] [address] [place] Body temperature 98.6 [degF] Normal [facility] Comment on above: Order Comment: Speci men Type: ARTERIAL BLOOD SPECIMENOrdering Facility: [facility] Address: [address] [place] [address] Performed By: #### A LLBG ####[facility] LABCLIA [id number] [place] [address] [place] Calcium.ionized (Bld) [Mass/Vol] 1.28 mmol/L Normal 1.08-1.30 [facility] Comment on above: Order Comment: Speci men Type: ARTERIAL BLOOD SPECIMENOrdering Facility: [facility] Address: [address] [place] [address] Performed By: #### A LLBG ####[facility] LABCLIA [id number] [place] [address] [place] Calcium.ionized adjusted to pH 7.4 (BldA) [Moles/Vol] 1.27 mmol/L Normal 1.08-1.30 [facility] Comment on above: Order Comment: Speci men Type: ARTERIAL BLOOD SPECIMENOrdering Facility: [facility] Address: [address] [place] [address] Performed By: #### A LLBG ####[facility] LABCLIA [id number] [place] [address] [place] Carboxyhemoglobin (BldA) [Mass fraction] 1.1 % Normal 0.0-2.0 [facility] Comment on above: Order Comment: Speci men Type: ARTERIAL BLOOD SPECIMENOrdering Facility: [facility] Address: [address] [place] [address] Result Comment: Carb oxyhemoglobin Reference Range for Smokers: 2.0-8.0% Performed By: #### A LLBG ####[facility] LABCLIA [id number] [place] [address] [place] CO2 (Bld) [Partial pressure] 43 mm Hg Normal 36-46 [facility] Comment on above: Order Comment: Speci men Type: ARTERIAL BLOOD SPECIMENOrdering Facility: [facility] Address: [address] [place] [address] Performed By: #### A LLBG ####[facility] LABCLIA [id number] [place] [address] [place] Glucose [Mass/Vol] 186 mg/dL High 60-105 [facility] Comment on above: Order Comment: Speci men Type: ARTERIAL BLOOD SPECIMENOrdering Facility: [facility] Address: [address] [place] [address] Performed By: #### A LLBG ####[facility] LABCLIA [id number] [place] [address] [place] HCO3 (Bld) [Moles/Vol] 25 mmol/L Normal 22-26 [facility] Comment on above: Order Comment: Speci men Type: ARTERIAL BLOOD SPECIMENOrdering Facility: [facility] Address: [address] [place] [address] Performed By: #### A LLBG ####[facility] LABCLIA [id number] [place] [address] [place] Hematocrit (Bld) [Volume fraction] 38.5 % Normal 36.0-46.0 [facility] Comment on above: Order Comment: Speci men Type: ARTERIAL BLOOD SPECIMENOrdering Facility: [facility] Address: [address] [place] [address] Performed By: #### A LLBG ####[facility] LABCLIA [id number] [place] [address] [place] Hemoglobin (Bld) [Mass/Vol] 12.5 g/dL Normal 11.5-15.5 [facility] Comment on above: Order Comment: Speci men Type: ARTERIAL BLOOD SPECIMENOrdering Facility: [facility] Address: [address] [place] [address] Performed By: #### A LLBG ####[facility] LABCLIA [id number] [place] [address] [place] Lactate [Moles/Vol] 1.0 mmol/L Normal 0.5-2.2 [facility] Comment on above: Order Comment: Speci men Type: ARTERIAL BLOOD SPECIMENOrdering Facility: [facility] Address: [address] [place] [address] Performed By: #### A LLBG ####[facility] LABCLIA [id number] [place] [address] [place] Methemoglobin (Bld) [Mass fraction] 0.8 % Normal 0.0-1.5 [facility] Comment on above: Order Comment: Speci men Type: ARTERIAL BLOOD SPECIMENOrdering Facility: [facility] Address: [address] [place] [address] Performed By: #### A LLBG ####[facility] LABCLIA [id number] [place] [address] [place] O2 THERAPY Positive Normal [facility] Comment on above: Order Comment: Speci men Type: ARTERIAL BLOOD SPECIMENOrdering Facility: [facility] Address: [address] [place] [address] Performed By: #### A LLBG ####[facility] LABCLIA [id number] [place] [address] [place] Oxygen (Bld) [Partial pressure] 117 mm Hg High 85-95 [facility] Comment on above: Order Comment: Speci men Type: ARTERIAL BLOOD SPECIMENOrdering Facility: [facility] Address: [address] [place] [address] Performed By: #### A LLBG ####[facility] LABCLIA [id number] [place] [address] [place] Oxyhemoglobin (BldA) [Mass fraction] 95 % Normal 95-98 [facility] Comment on above: Order Comment: Speci men Type: ARTERIAL BLOOD SPECIMENOrdering Facility: [facility] Address: [address] [place] [address] Performed By: #### A LLBG ####[facility] LABIA [id number] [place] [address] [place] pH (Bld) 7.38 [pH] Normal 7.35-7.45 [facility] Comment on above: Order Comment: Speci men Type: ARTERIAL BLOOD SPECIMENOrdering Facility: [facility] Address: [address] [place] [address] Performed By: #### A LLBG ####[facility] LABCLIA [id number] [place] [address] [place] Potassium [Moles/Vol] 4.6 mmol/L Normal 3.5-5.0 [facility] Comment on above: Order Comment: Speci men Type: ARTERIAL BLOOD SPECIMENOrdering Facility: [facility] Address: [address] [place] [address] Performed By: #### A LLBG ####[facility] LABCLIA [id number] [place] [id number] [place] Sodium [Moles/Vol] 134 mmol/L Low 136-144 [facility] Comment on above: Order Comment: Speci men Type: ARTERIAL BLOOD SPECIMENOrdering Facility: [facility] Address: [address] [place] [address] Performed By: #### A LLBG ####[facility] LABCLIA [id number] [place] [address] [place] Base excess Calc (Bld) [Moles/Vol] 1 mmol/L Normal 0-2 [facility] Comment on above: Order Comment: Speci men Type: ARTERIAL BLOOD SPECIMENOrdering Facility: [facility] Address: [address] [place] [address] Performed By: #### A LLBG ####[facility] LABCLIA [id number] [place] [address] [place] Body temperature 98.6 [degF] Normal [facility] Comment on above: Order Comment: Speci men Type: ARTERIAL BLOOD SPECIMENOrdering Facility: [facility] Address: [address] [place] [address] Performed By: #### A LLBG ####[facility] LABCLIA [id number] [place] [address] [place] Calcium.ionized (Bld) [Mass/Vol] 1.33 mmol/L High 1.08-1.30 [facility] Comment on above: Order Comment: Speci men Type: ARTERIAL BLOOD SPECIMENOrdering Facility: [facility] Address: [address] [place] [address] Performed By: #### A LLBG ####[facility] LABCLIA [id number] [place] [address] [place] Calcium.ionized adjusted to pH 7.4 (BldA) [Moles/Vol] 1.31 mmol/L High 1.08-1.30 [facility] Comment on above: Order Comment: Speci men Type: ARTERIAL BLOOD SPECIMENOrdering Facility: [facility] Address: [address] [place] [address] Performed By: #### A LLBG ####[facility] LABCLIA [id number] [place] [address] [place] Carboxyhemoglobin (BldA) [Mass fraction] 1.5 % Normal 0.0-2.0 [facility] Comment on above: Order Comment: Speci men Type: ARTERIAL BLOOD SPECIMENOrdering Facility: [facility] Address: [address] [place] [address] Result Comment: Carb oxyhemoglobin Reference Range for Smokers: 2.0-8.0% Performed By: #### A LLBG ####[facility] LABCLIA [id number] [place] [address] [place] CO2 (Bld) [Partial pressure] 45 mm Hg Normal 36-46 [facility] Comment on above: Order Comment: Speci men Type: ARTERIAL BLOOD SPECIMENOrdering Facility: [facility] Address: [address] [place] [address] Performed By: #### A LLBG ####[facility] LABCLIA [id number] [place] [address] [place] FIO2 40 % Normal [facility] Comment on above: Order Comment: Speci men Type: ARTERIAL BLOOD SPECIMENOrdering Facility: [facility] Address: [address] [place] [address] Performed By: #### A LLBG ####[facility] LABCLIA [id number] [place] [address] [place] Glucose [Mass/Vol] 122 mg/dL High 60-105 [facility] Comment on above: Order Comment: Speci men Type: ARTERIAL BLOOD SPECIMENOrdering Facility: [facility] Address: [address] [place] [address] Performed By: #### A LLBG ####[facility] LABCLIA [id number] [place] [address] [place] HCO3 (Bld) [Moles/Vol] 26 mmol/L Normal 22-26 [facility] Comment on above: Order Comment: Speci men Type: ARTERIAL BLOOD SPECIMENOrdering Facility: [facility] Address: [address] [place] [address] Performed By: #### A LLBG ####[facility] LABCLIA [id number] [place] [address] [place] Hematocrit (Bld) [Volume fraction] 38.3 % Normal 36.0-46.0 [facility] Comment on above: Order Comment: Speci men Type: ARTERIAL BLOOD SPECIMENOrdering Facility: [facility] Address: [address] [place] [address] Performed By: #### A LLBG ####[facility] LABCLIA [id number] [place] [address] [place] Hemoglobin (Bld) [Mass/Vol] 12.5 g/dL Normal 11.5-15.5 [facility] Comment on above: Order Comment: Speci men Type: ARTERIAL BLOOD SPECIMENOrdering Facility: [facility] Address: [address] [place] [address] Performed By: #### A LLBG ####[facility] LABIA [id number] [place] [address] [place] Lactate [Moles/Vol] 2.5 mmol/L High 0.5-2.2 [facility] Comment on above: Order Comment: Speci men Type: ARTERIAL BLOOD SPECIMENOrdering Facility: [facility] Address: [address] [place] [address] Performed By: #### A LLBG ####[facility] LABCLIA [id number] [place] [address] [place] Methemoglobin (Bld) [Mass fraction] 1.5 % Normal 0.0-1.5 [facility] Comment on above: Order Comment: Speci men Type: ARTERIAL BLOOD SPECIMENOrdering Facility: [facility] Address: [address] [place] [address] Performed By: #### A LLBG ####[facility] LABCLIA [id number] [place] [id number] [place] O2 THERAPY Ventilator Normal [facility] Comment on above: Order Comment: Speci men Type: ARTERIAL BLOOD SPECIMENOrdering Facility: [facility] Address: [address] [place] [address] Performed By: #### A LLBG ####[facility] LABCLIA [id number] [place] [address] [place] Oxygen (Bld) [Partial pressure] 179 mm Hg High 85-95 [facility] Comment on above: Order Comment: Speci men Type: ARTERIAL BLOOD SPECIMENOrdering Facility: [facility] Address: [address] [place] [address] Performed By: #### A LLBG ####[facility] LABCLIA [id number] [place] [address] [place] Oxyhemoglobin (BldA) [Mass fraction] 96 % Normal 95-98 [facility] Comment on above: Order Comment: Speci men Type: ARTERIAL BLOOD SPECIMENOrdering Facility: [facility] Address: [address] [place] [address] Performed By: #### A LLBG ####[facility] LABCLIA [id number] [place] [id number] [place] pH (Bld) 7.37 [pH] Normal 7.35-7.45 [facility] Comment on above: Order Comment: Speci men Type: ARTERIAL BLOOD SPECIMENOrdering Facility: [facility] Address: [address] [place] [address] Performed By: #### A LLBG ####[facility] LABCLIA [id number] [place] [id number] [place] PO2 / FIO2 RATIO 448 mmHg Normal >300 [place] Comment on above: Order Comment: Speci men Type: ARTERIAL BLOOD SPECIMENOrdering Facility: [facility] Address: [address] [place] [address] Performed By: #### A LLBG ####[facility] LABCLIA [id number] [place] [address] [place] Potassium [Moles/Vol] 4.8 mmol/L Normal 3.5-5.0 [facility] Comment on above: Order Comment: Speci men Type: ARTERIAL BLOOD SPECIMENOrdering Facility: [facility] Address: [address] [place] [address] Performed By: #### A LLBG ####[facility] LABCLIA [id number] [place] [address] [place] Sodium [Moles/Vol] 135 mmol/L Low 136-144 [facility] Comment on above: Order Comment: Speci men Type: ARTERIAL BLOOD SPECIMENOrdering Facility: [facility] Address: [address] [place] [address] Performed By: #### A LLBG ####[facility] LABCLIA [id number] [place] [address] [place] Base deficit (BldA) [Moles/Vol] -1 mmol/L Normal -2-0 [facility] Comment on above: Order Comment: Speci men Type: ARTERIAL BLOOD SPECIMENOrdering Facility: [facility] Address: [address] [place] [address] Performed By: #### A LLBG ####[facility] LABIA [id number] [place] [address] [place] Calcium.ionized (Bld) [Mass/Vol] 1.26 mmol/L Normal 1.08-1.30 [facility] Comment on above: Order Comment: Speci men Type: ARTERIAL BLOOD SPECIMENOrdering Facility: [facility] Address: [address] [place] [address] Performed By: #### A LLBG ####[facility] LABCLIA [id number] [place] [address] [place] Calcium.ionized adjusted to pH 7.4 (BldA) [Moles/Vol] 1.22 mmol/L Normal 1.08-1.30 [facility] Comment on above: Order Comment: Speci men Type: ARTERIAL BLOOD SPECIMENOrdering Facility: [facility] Address: [address] [place] [address] Performed By: #### A LLBG ####[facility] LABCLIA [id number] [place] [address] [place] Carboxyhemoglobin (BldA) [Mass fraction] 1.6 % Normal 0.0-2.0 [facility] Comment on above: Order Comment: Speci men Type: ARTERIAL BLOOD SPECIMENOrdering Facility: [facility] Address: [address] [place] [address] Result Comment: Carb oxyhemoglobin Reference Range for Smokers: 2.0-8.0% Performed By: #### A LLBG ####[facility] LABCLIA [id number] [place] [address] [place] CO2 (Bld) [Partial pressure] 49 mm Hg High 36-46 [facility] Comment on above: Order Comment: Speci men Type: ARTERIAL BLOOD SPECIMENOrdering Facility: [facility] Address: [address] [place] [address] Performed By: #### A LLBG ####[facility] LABCLIA [id number] [place] [address] [place] CO2 adjusted to patient's actual temperature (Bld) [Partial pressure] 49 mmHg High 36-46 [facility] Comment on above: Order Comment: Speci men Type: ARTERIAL BLOOD SPECIMENOrdering Facility: [facility] Address: [address] [place] [address] Performed By: #### A LLBG ####[facility] LABCLIA [id number] [place] [address] [place] Glucose [Mass/Vol] 140 mg/dL High 60-105 [facility] Comment on above: Order Comment: Speci men Type: ARTERIAL BLOOD SPECIMENOrdering Facility: [facility] Address: [address] [place] [address] Performed By: #### A LLBG ####[facility] LABCLIA [id number] [place] [address] [place] HCO3 (Bld) [Moles/Vol] 25 mmol/L Normal 22-26 [facility] Comment on above: Order Comment: Speci men Type: ARTERIAL BLOOD SPECIMENOrdering Facility: [facility] Address: [address] [place] [address] Performed By: #### A LLBG ####[facility] LABCLIA [id number] [place] [address] [place] Hematocrit (Bld) [Volume fraction] 30.8 % Low 36.0-46.0 [facility] Comment on above: Order Comment: Speci men Type: ARTERIAL BLOOD SPECIMENOrdering Facility: [facility] Address: [address] [place] [address] Performed By: #### A LLBG ####[facility] LABCLIA [id number] [place] [address] [place] Hemoglobin (Bld) [Mass/Vol] 10.0 g/dL Low 11.5-15.5 [facility] Comment on above: Order Comment: Speci men Type: ARTERIAL BLOOD SPECIMENOrdering Facility: [facility] Address: [address] [place] [address] Performed By: #### A LLBG ####[facility] LABCLIA [id number] [place] [address] [place] Lactate [Moles/Vol] 2.6 mmol/L High 0.5-2.2 [facility] Comment on above: Order Comment: Speci men Type: ARTERIAL BLOOD SPECIMENOrdering Facility: [facility] Address: [address] [place] [address] Performed By: #### A LLBG ####[facility] LABCLIA [id number] [address] [address] [place] Methemoglobin (Bld) [Mass fraction] 1.5 % Normal 0.0-1.5 [facility] Comment on above: Order Comment: Speci men Type: ARTERIAL BLOOD SPECIMENOrdering Facility: [facility] Address: [address] [place] [id number] Performed By: #### A LLBG ####[facility] LABCLIA [id number] [place] [id number] [place] Oxygen (Bld) [Partial pressure] 200 mm Hg High 85-95 [facility] Comment on above: Order Comment: Speci men Type: ARTERIAL BLOOD SPECIMENOrdering Facility: [facility] Address: [address] [place] [id number] Performed By: #### A LLBG ####[facility] LABCLIA [id number] [place] [address] [place] Oxygen adjusted to patient's actual temperature (Bld) [Partial pressure] 200 mmHg High 85-95 [facility] Comment on above: Order Comment: Speci men Type: ARTERIAL BLOOD SPECIMENOrdering Facility: [facility] Address: [address] [place] [address] Performed By: #### A LLBG ####[facility] LABCLIA [id number] [address] [address] [place] Oxyhemoglobin (BldA) [Mass fraction] 96 % Normal 95-98 [facility] Comment on above: Order Comment: Speci men Type: ARTERIAL BLOOD SPECIMENOrdering Facility: [facility] Address: [address] [place] [address] Performed By: #### A LLBG ####[facility] LABCLIA [id number] [place] [address] [place] pH (Bld) 7.33 [pH] Low 7.35-7.45 [facility] Comment on above: Order Comment: Speci men Type: ARTERIAL BLOOD SPECIMENOrdering Facility: [facility] Address: [address] [place] [address] Performed By: #### A LLBG ####[facility] LABCLIA [id number] [place] [address] [place] pH adjusted to patient's actual temperature (Bld) 7.33 Low 7.35-7.45 [facility] Comment on above: Order Comment: Speci men Type: ARTERIAL BLOOD SPECIMENOrdering Facility: [facility] Address: [address] [place] [address] Performed By: #### A LLBG ####[facility] LABIA [id number] [place] [address] [place] Potassium [Moles/Vol] 3.6 mmol/L Normal 3.5-5.0 [facility] Comment on above: Order Comment: Speci men Type: ARTERIAL BLOOD SPECIMENOrdering Facility: [facility] Address: [address] [place] [address] Performed By: #### A LLBG ####[facility] LABIA [id number] [place] [address] [place] Sodium [Moles/Vol] 134 mmol/L Low 136-144 [facility] Comment on above: Order Comment: Speci men Type: ARTERIAL BLOOD SPECIMENOrdering Facility: [facility] Address: [address] [place] [address] Performed By: #### A LLBG ####[facility] LABCLIA [id number] [place] [address] [place] Base excess Calc (Bld) [Moles/Vol] 0 mmol/L Normal 0-2 [facility] Comment on above: Order Comment: Speci men Type: ARTERIAL BLOOD SPECIMENOrdering Facility: [facility] Address: [address] [place] [address] Performed By: #### A LLBG ####[facility] LABCLIA [id number] [place] [address] [place] Calcium.ionized (Bld) [Mass/Vol] 1.10 mmol/L Normal 1.08-1.30 [facility] Comment on above: Order Comment: Speci men Type: ARTERIAL BLOOD SPECIMENOrdering Facility: [facility] Address: [address] [place] [address] Performed By: #### A LLBG ####[facility] LABIA [id number] [place] [address] [place] Calcium.ionized adjusted to pH 7.4 (BldA) [Moles/Vol] 1.11 mmol/L Normal 1.08-1.30 [facility] Comment on above: Order Comment: Speci men Type: ARTERIAL BLOOD SPECIMENOrdering Facility: [facility] Address: [address] [place] [address] Performed By: #### A LLBG ####[facility] LABIA [id number] [place] [address] [place] Carboxyhemoglobin (BldA) [Mass fraction] 2.1 % High 0.0-2.0 [facility] Comment on above: Order Comment: Speci men Type: ARTERIAL BLOOD SPECIMENOrdering Facility: [facility] Address: [address] [place] [address] Result Comment: Carb oxyhemoglobin Reference Range for Smokers: 2.0-8.0% Performed By: #### A LLBG ####[facility] LABIA [id number] [place] [address] [place] CO2 (Bld) [Partial pressure] 39 mm Hg Normal 36-46 [facility] Comment on above: Order Comment: Speci men Type: ARTERIAL BLOOD SPECIMENOrdering Facility: [facility] Address: [address] [place] [address] Performed By: #### A LLBG ####[facility] LABCLIA [id number] [place] [address] [place] CO2 adjusted to patient's actual temperature (Bld) [Partial pressure] 39 mmHg Normal 36-46 [facility] Comment on above: Order Comment: Speci men Type: ARTERIAL BLOOD SPECIMENOrdering Facility: [facility] Address: [address] [place] [address] Performed By: #### A LLBG ####[facility] LABCLIA [id number] [place] [address] [place] Glucose [Mass/Vol] 209 mg/dL High 60-105 [facility] Comment on above: Order Comment: Speci men Type: ARTERIAL BLOOD SPECIMENOrdering Facility: [facility] Address: [address] [place] [address] Performed By: #### A LLBG ####[facility] LABCLIA [id number] [place] [address] [place] HCO3 (Bld) [Moles/Vol] 24 mmol/L Normal 22-26 [facility] Comment on above: Order Comment: Speci men Type: ARTERIAL BLOOD SPECIMENOrdering Facility: [facility] Address: [address] [place] [address] Performed By: #### A LLBG ####[facility] LABCLIA [id number] [place] [address] [place] Hematocrit (Bld) [Volume fraction] 28.4 % Low 36.0-46.0 [facility] Comment on above: Order Comment: Speci men Type: ARTERIAL BLOOD SPECIMENOrdering Facility: [facility] Address: [address] [place] [address] Performed By: #### A LLBG ####[facility] LABCLIA [id number] [place] [address] [place] Hemoglobin (Bld) [Mass/Vol] 9.1 g/dL Low 11.5-15.5 [facility] Comment on above: Order Comment: Speci men Type: ARTERIAL BLOOD SPECIMENOrdering Facility: [facility] Address: [address] [place] [address] Performed By: #### A LLBG ####[facility] LABCLIA [id number] [place] [address] [place] Lactate [Moles/Vol] 3.9 mmol/L High 0.5-2.2 [facility] Comment on above: Order Comment: Speci men Type: ARTERIAL BLOOD SPECIMENOrdering Facility: [facility] Address: [address] [place] [address] Performed By: #### A LLBG ####[facility] LABCLIA [id number] [place] [address] [place] Methemoglobin (Bld) [Mass fraction] 0.9 % Normal 0.0-1.5 [facility] Comment on above: Order Comment: Speci men Type: ARTERIAL BLOOD SPECIMENOrdering Facility: [facility] Address: [address] [place] [address] Performed By: #### A LLBG ####[facility] LABCLIA [id number] [place] [address] [place] Oxygen (Bld) [Partial pressure] 376 mm Hg High 85-95 [facility] Comment on above: Order Comment: Speci men Type: ARTERIAL BLOOD SPECIMENOrdering Facility: [facility] Address: [address] [place] [address] Performed By: #### A LLBG ####[facility] LABCLIA [id number] [place] [address] [place] Oxygen adjusted to patient's actual temperature (Bld) [Partial pressure] 376 mmHg High 85-95 [facility] Comment on above: Order Comment: Speci men Type: ARTERIAL BLOOD SPECIMENOrdering Facility: [facility] Address: [address] [place] [address] Performed By: #### A LLBG ####[facility] LABCLIA [id number] [place] [address] [place] Oxyhemoglobin (BldA) [Mass fraction] 97 % Normal 95-98 [facility] Comment on above: Order Comment: Speci men Type: ARTERIAL BLOOD SPECIMENOrdering Facility: [facility] Address: [address] [place] [address] Performed By: #### A LLBG ####[facility] LABCLIA [id number] [place] [address] [place] pH (Bld) 7.41 [pH] Normal 7.35-7.45 [facility] Comment on above: Order Comment: Speci men Type: ARTERIAL BLOOD SPECIMENOrdering Facility: [facility] Address: [address] [place] [address] Performed By: #### A LLBG ####[facility] LABCLIA [id number] [place] [address] [place] pH adjusted to patient's actual temperature (Bld) 7.41 Normal 7.35-7.45 [facility] Comment on above: Order Comment: Speci men Type: ARTERIAL BLOOD SPECIMENOrdering Facility: [facility] Address: [address] [place] [address] Performed By: #### A LLBG ####[facility] LABCLIA [id number] [place] [address] [place] Potassium [Moles/Vol] 4.4 mmol/L Normal 3.5-5.0 [facility] Comment on above: Order Comment: Speci men Type: ARTERIAL BLOOD SPECIMENOrdering Facility: [facility] Address: [address] [place] [address] Performed By: #### A LLBG ####[facility] LABCLIA [id number] [place] [address] [place] Sodium [Moles/Vol] 133 mmol/L Low 136-144 [facility] Comment on above: Order Comment: Speci men Type: ARTERIAL BLOOD SPECIMENOrdering Facility: [facility] Address: [address] [place] [address] Performed By: #### A LLBG ####[facility] LABIA [id number] [place] [address] [place] Base excess Calc (Bld) [Moles/Vol] 0 mmol/L Normal 0-2 [facility] Comment on above: Order Comment: Speci men Type: ARTERIAL BLOOD SPECIMENOrdering Facility: [facility] Address: [address] [place] [address] Performed By: #### A LLBG ####[facility] LABIA [id number] [place] [address] [place] Calcium.ionized (Bld) [Mass/Vol] 1.08 mmol/L Normal 1.08-1.30 [facility] Comment on above: Order Comment: Speci men Type: ARTERIAL BLOOD SPECIMENOrdering Facility: [facility] Address: [address] [place] [address] Performed By: #### A LLBG ####[facility] LABIA [id number] [place] [address] [place] Calcium.ionized adjusted to pH 7.4 (BldA) [Moles/Vol] 1.06 mmol/L Low 1.08-1.30 [facility] Comment on above: Order Comment: Speci men Type: ARTERIAL BLOOD SPECIMENOrdering Facility: [facility] Address: [address] [place] [address] Performed By: #### A LLBG ####[facility] LABIA [id number] [place] [address] [place] Carboxyhemoglobin (BldA) [Mass fraction] 2.0 % Normal 0.0-2.0 [facility] Comment on above: Order Comment: Speci men Type: ARTERIAL BLOOD SPECIMENOrdering Facility: [facility] Address: [address] [place] [address] Result Comment: Carb oxyhemoglobin Reference Range for Smokers: 2.0-8.0% Performed By: #### A LLBG ####[facility] LABCLIA [id number] [place] [address] [place] CO2 (Bld) [Partial pressure] 44 mm Hg Normal 36-46 [facility] Comment on above: Order Comment: Speci men Type: ARTERIAL BLOOD SPECIMENOrdering Facility: [facility] Address: [address] [place] [address] Performed By: #### A LLBG ####[facility] LABCLIA [id number] [place] [address] [place] CO2 adjusted to patient's actual temperature (Bld) [Partial pressure] 44 mmHg Normal 36-46 [facility] Comment on above: Order Comment: Speci men Type: ARTERIAL BLOOD SPECIMENOrdering Facility: [facility] Address: [address] [place] [address] Performed By: #### A LLBG ####[facility] LABCLIA [id number] [place] [address] [place] Glucose [Mass/Vol] 253 mg/dL High 60-105 [facility] Comment on above: Order Comment: Speci men Type: ARTERIAL BLOOD SPECIMENOrdering Facility: [facility] Address: [address] [place] [address] Performed By: #### A LLBG ####[facility] LABCLIA [id number] [place] [address] [place] HCO3 (Bld) [Moles/Vol] 25 mmol/L Normal 22-26 [facility] Comment on above: Order Comment: Speci men Type: ARTERIAL BLOOD SPECIMENOrdering Facility: [facility] Address: [address] [place] [address] Performed By: #### A LLBG ####[facility] LABCLIA [id number] [place] [address] [place] Hematocrit (Bld) [Volume fraction] 28.3 % Low 36.0-46.0 [facility] Comment on above: Order Comment: Speci men Type: ARTERIAL BLOOD SPECIMENOrdering Facility: [facility] Address: [address] [place] [address] Performed By: #### A LLBG ####[facility] LABIA [id number] [place] [address] [place] Hemoglobin (Bld) [Mass/Vol] 9.1 g/dL Low 11.5-15.5 [facility] Comment on above: Order Comment: Speci men Type: ARTERIAL BLOOD SPECIMENOrdering Facility: [facility] Address: [address] [place] [address] Performed By: #### A LLBG ####[facility] LABIA [id number] [place] [address] [place] Lactate [Moles/Vol] 4.4 mmol/L High 0.5-2.2 [facility] Comment on above: Order Comment: Speci men Type: ARTERIAL BLOOD SPECIMENOrdering Facility: [facility] Address: [address] [place] [address] Performed By: #### A LLBG ####[facility] LABIA [id number] [place] [address] [place] Methemoglobin (Bld) [Mass fraction] 0.9 % Normal 0.0-1.5 [facility] Comment on above: Order Comment: Speci men Type: ARTERIAL BLOOD SPECIMENOrdering Facility: [facility] Address: [address] [place] [address] Performed By: #### A LLBG ####[facility] LABIA [id number] [id number] [address] [place] Oxygen (Bld) [Partial pressure] 295 mm Hg High 85-95 [facility] Comment on above: Order Comment: Speci men Type: ARTERIAL BLOOD SPECIMENOrdering Facility: [facility] Address: [address] [place] [address] Performed By: #### A LLBG ####[facility] LABCLIA [id number] [address] [address] [place] Oxygen adjusted to patient's actual temperature (Bld) [Partial pressure] 295 mmHg High 85-95 [facility] Comment on above: Order Comment: Speci men Type: ARTERIAL BLOOD SPECIMENOrdering Facility: [facility] Address: [address] [place] [address] Performed By: #### A LLBG ####[facility] LABCLIA [id number] [place] [address] [place] Oxyhemoglobin (BldA) [Mass fraction] 97 % Normal 95-98 [facility] Comment on above: Order Comment: Speci men Type: ARTERIAL BLOOD SPECIMENOrdering Facility: [facility] Address: [address] [place] [address] Performed By: #### A LLBG ####[facility] LABCLIA [id number] [place] [address] [place] pH (Bld) 7.37 [pH] Normal 7.35-7.45 [facility] Comment on above: Order Comment: Speci men Type: ARTERIAL BLOOD SPECIMENOrdering Facility: [facility] Address: [address] [place] [address] Performed By: #### A LLBG ####[facility] LABCLIA [id number] [place] [address] [place] pH adjusted to patient's actual temperature (Bld) 7.37 Normal 7.35-7.45 [facility] Comment on above: Order Comment: Speci men Type: ARTERIAL BLOOD SPECIMENOrdering Facility: [facility] Address: [address] [place], [place] [address] Performed By: #### A LLBG ####[facility] LABCLIA [id number] [place] [address] [place] Potassium [Moles/Vol] 4.9 mmol/L Normal 3.5-5.0 [facility] Comment on above: Order Comment: Speci men Type: ARTERIAL BLOOD SPECIMENOrdering Facility: [facility] Address: [address] [place] [address] Performed By: #### A LLBG ####[facility] LABCLIA [id number] [place] [address] [place] Sodium [Moles/Vol] 132 mmol/L Low 136-144 [facility] Comment on above: Order Comment: Speci men Type: ARTERIAL BLOOD SPECIMENOrdering Facility: [facility] Address: [address] [place] [address] Performed By: #### A LLBG ####[facility] LABCLIA [id number] [place] [address] [place] Base deficit (BldA) [Moles/Vol] -3 mmol/L Low -2-0 [facility] Comment on above: Order Comment: Speci men Type: ARTERIAL BLOOD SPECIMENOrdering Facility: [facility] Address: [address] [place] [address] Performed By: #### A LLBG ####[facility] LABCLIA [id number] [place] [address] [place] Calcium.ionized (Bld) [Mass/Vol] 1.20 mmol/L Normal 1.08-1.30 [facility] Comment on above: Order Comment: Speci men Type: ARTERIAL BLOOD SPECIMENOrdering Facility: [facility] Address: [address] [place] [address] Performed By: #### A LLBG ####[facility] LABIA [id number] [place] [address] [place] Calcium.ionized adjusted to pH 7.4 (BldA) [Moles/Vol] 1.18 mmol/L Normal 1.08-1.30 [facility] Comment on above: Order Comment: Speci men Type: ARTERIAL BLOOD SPECIMENOrdering Facility: [facility] Address: [address] [place] [address] Performed By: #### A LLBG ####[facility] LABCLIA [id number] [place] [address] [place] Carboxyhemoglobin (BldA) [Mass fraction] 1.6 % Normal 0.0-2.0 [facility] Comment on above: Order Comment: Speci men Type: ARTERIAL BLOOD SPECIMENOrdering Facility: [facility] Address: [address] [place] [address] Result Comment: Carb oxyhemoglobin Reference Range for Smokers: 2.0-8.0% Performed By: #### A LLBG ####[facility] LABCLIA [id number] [place] [address] [place] CO2 (Bld) [Partial pressure] 40 mm Hg Normal 36-46 [facility] Comment on above: Order Comment: Speci men Type: ARTERIAL BLOOD SPECIMENOrdering Facility: [facility] Address: [address] [place] [address] Performed By: #### A LLBG ####[facility] LABCLIA [id number] [place] [address] [place] CO2 adjusted to patient's actual temperature (Bld) [Partial pressure] 40 mmHg Normal 36-46 [facility] Comment on above: Order Comment: Speci men Type: ARTERIAL BLOOD SPECIMENOrdering Facility: [facility] Address: [address] [place] [address] Performed By: #### A LLBG ####[facility] LABCLIA [id number] [place] [address] [place] Glucose [Mass/Vol] 209 mg/dL High 60-105 [facility] Comment on above: Order Comment: Speci men Type: ARTERIAL BLOOD SPECIMENOrdering Facility: [facility] Address: [address] [place] [address] Performed By: #### A LLBG ####[facility] LABCLIA [id number] [place] [address] [place] HCO3 (Bld) [Moles/Vol] 22 mmol/L Normal 22-26 [facility] Comment on above: Order Comment: Speci men Type: ARTERIAL BLOOD SPECIMENOrdering Facility: [facility] Address: [address] [place] [address] Performed By: #### A LLBG ####[facility] LABIA [id number] [place] [address] [place] Hematocrit (Bld) [Volume fraction] 33.5 % Low 36.0-46.0 [facility] Comment on above: Order Comment: Speci men Type: ARTERIAL BLOOD SPECIMENOrdering Facility: [facility] Address: [address] [place] [address] Performed By: #### A LLBG ####[facility] LABIA [id number] [place] [address] [place] Hemoglobin (Bld) [Mass/Vol] 10.9 g/dL Low 11.5-15.5 [facility] Comment on above: Order Comment: Speci men Type: ARTERIAL BLOOD SPECIMENOrdering Facility: [facility] Address: [address] [place] [address] Performed By: #### A LLBG ####[facility] LABCLIA [id number] [place] [address] [place] Lactate [Moles/Vol] 3.0 mmol/L High 0.5-2.2 [facility] Comment on above: Order Comment: Speci men Type: ARTERIAL BLOOD SPECIMENOrdering Facility: [facility] Address: [address] [place] [address] Performed By: #### A LLBG ####[facility] LABCLIA [id number] [address] [address] [place] Methemoglobin (Bld) [Mass fraction] 1.6 % High 0.0-1.5 [facility] Comment on above: Order Comment: Speci men Type: ARTERIAL BLOOD SPECIMENOrdering Facility: [facility] Address: [address] [place] [address] Performed By: #### A LLBG ####[facility] LABCLIA [id number] [place] [id number] [place] Oxygen (Bld) [Partial pressure] 359 mm Hg High 85-95 [facility] Comment on above: Order Comment: Speci men Type: ARTERIAL BLOOD SPECIMENOrdering Facility: [facility] Address: [address] [place] [address] Performed By: #### A LLBG ####[facility] LABCLIA [id number] [place] [address] [place] Oxygen adjusted to patient's actual temperature (Bld) [Partial pressure] 359 mmHg High 85-95 [facility] Comment on above: Order Comment: Speci men Type: ARTERIAL BLOOD SPECIMENOrdering Facility: [facility] Address: [address] [place], [place] [address] Performed By: #### A LLBG ####[facility] LABIA [id number] [place] [id number] [place] Oxyhemoglobin (BldA) [Mass fraction] 96 % Normal 95-98 [facility] Comment on above: Order Comment: Speci men Type: ARTERIAL BLOOD SPECIMENOrdering Facility: [facility] Address: [address] [place] [address] Performed By: #### A LLBG ####[facility] LABCLIA [id number] [place] [id number] [place] pH (Bld) 7.36 [pH] Normal 7.35-7.45 [facility] Comment on above: Order Comment: Speci men Type: ARTERIAL BLOOD SPECIMENOrdering Facility: [facility] Address: [address] [place] [address] Performed By: #### A LLBG ####[facility] LABIA [id number] [place] [address] [place] pH adjusted to patient's actual temperature (Bld) 7.36 Normal 7.35-7.45 [facility] Comment on above: Order Comment: Speci men Type: ARTERIAL BLOOD SPECIMENOrdering Facility: [facility] Address: [address] [place] [address] Performed By: #### A LLBG ####[facility] LABIA [id number] [place] [address] [place] Potassium [Moles/Vol] 5.0 mmol/L Normal 3.5-5.0 [facility] Comment on above: Order Comment: Speci men Type: ARTERIAL BLOOD SPECIMENOrdering Facility: [facility] Address: [address] [place] [address] Performed By: #### A LLBG ####[facility] LABIA [id number] [place] [address] [place] Sodium [Moles/Vol] 133 mmol/L Low 136-144 [facility] Comment on above: Order Comment: Speci men Type: ARTERIAL BLOOD SPECIMENOrdering Facility: [facility] Address: [address] [place] [address] Performed By: #### A LLBG ####[facility] LABIA [id number] [place] [address] [place] Base deficit (BldA) [Moles/Vol] -3 mmol/L Low -2-0 [facility] Comment on above: Order Comment: Speci men Type: ARTERIAL BLOOD SPECIMENOrdering Facility: [facility] Address: [address] [place] [address] Performed By: #### A LLBG ####[facility] LABIA [id number] [place] [address] [place] Calcium.ionized (Bld) [Mass/Vol] 1.16 mmol/L Normal 1.08-1.30 [facility] Comment on above: Order Comment: Speci men Type: ARTERIAL BLOOD SPECIMENOrdering Facility: [facility] Address: [address] [place] [address] Performed By: #### A LLBG ####[facility] LABIA [id number] [place] [address] [place] Calcium.ionized adjusted to pH 7.4 (BldA) [Moles/Vol] 1.14 mmol/L Normal 1.08-1.30 [facility] Comment on above: Order Comment: Speci men Type: ARTERIAL BLOOD SPECIMENOrdering Facility: [facility] Address: [address] [place] [address] Performed By: #### A LLBG ####[facility] [id number] [place] [address] [place] Carboxyhemoglobin (BldA) [Mass fraction] 1.0 % Normal 0.0-2.0 [facility] Comment on above: Order Comment: Speci men Type: ARTERIAL BLOOD SPECIMENOrdering Facility: [facility] Address: [address] [place] [address] Result Comment: Carb oxyhemoglobin Reference Range for Smokers: 2.0-8.0% Performed By: #### A LLBG ####[facility] LABIA [id number] [place] [address] [place] CO2 (Bld) [Partial pressure] 38 mm Hg Normal 36-46 [facility] Comment on above: Order Comment: Speci men Type: ARTERIAL BLOOD SPECIMENOrdering Facility: [facility] Address: [address] [place] [address] Performed By: #### A LLBG ####[facility] LABIA [id number] [place] [address] [place] CO2 adjusted to patient's actual temperature (Bld) [Partial pressure] 38 mmHg Normal 36-46 [facility] Comment on above: Order Comment: Speci men Type: ARTERIAL BLOOD SPECIMENOrdering Facility: [facility] Address: [address] [place] [address] Performed By: #### A LLBG ####[facility] LABCLIA [id number] [place] [address] [place] Glucose [Mass/Vol] 242 mg/dL High 60-105 [facility] Comment on above: Order Comment: Speci men Type: ARTERIAL BLOOD SPECIMENOrdering Facility: [facility] Address: [address] [place] [address] Performed By: #### A LLBG ####[facility] LABCLIA [id number] [place] [address] [place] HCO3 (Bld) [Moles/Vol] 21 mmol/L Low 22-26 [facility] Comment on above: Order Comment: Speci men Type: ARTERIAL BLOOD SPECIMENOrdering Facility: [facility] Address: [address] [place] [address] Performed By: #### A LLBG ####[facility] LABCLIA [id number] [place] [address] [place] Hematocrit (Bld) [Volume fraction] 33.0 % Low 36.0-46.0 [facility] Comment on above: Order Comment: Speci men Type: ARTERIAL BLOOD SPECIMENOrdering Facility: [facility] Address: [address] [place] [address] Performed By: #### A LLBG ####[facility] LABCLIA [id number] [place] [address] [place] Hemoglobin (Bld) [Mass/Vol] 10.7 g/dL Low 11.5-15.5 [facility] Comment on above: Order Comment: Speci men Type: ARTERIAL BLOOD SPECIMENOrdering Facility: [facility] Address: [address] [place] [address] Performed By: #### A LLBG ####[facility] LABCLIA [id number] [address] [address] [place] Methemoglobin (Bld) [Mass fraction] 0.9 % Normal 0.0-1.5 [facility] Comment on above: Order Comment: Speci men Type: ARTERIAL BLOOD SPECIMENOrdering Facility: [facility] Address: [address] [place] [id number] Performed By: #### A LLBG ####[facility] LABCLIA [id number] [address] [address] [place] Oxygen (Bld) [Partial pressure] 439 mm Hg High 85-95 [facility] Comment on above: Order Comment: Speci men Type: ARTERIAL BLOOD SPECIMENOrdering Facility: [facility] Address: [address] [id number] Performed By: #### A LLBG ####[facility] LABCLIA [id number] [place] [address] [place] Oxygen adjusted to patient's actual temperature (Bld) [Partial pressure] 439 mmHg High 85-95 [facility] Comment on above: Order Comment: Speci men Type: ARTERIAL BLOOD SPECIMENOrdering Facility: [facility] Address: [address] [place] [address] Performed By: #### A LLBG ####[facility] LABCLIA [id number] [address] [address] [place] Oxyhemoglobin (BldA) [Mass fraction] 96 % Normal 95-98 [facility] Comment on above: Order Comment: Speci men Type: ARTERIAL BLOOD SPECIMENOrdering Facility: [facility] Address: [address] [place] [address] Performed By: #### A LLBG ####[facility] LABCLIA [id number] [place] [address] [place] pH (Bld) 7.37 [pH] Normal 7.35-7.45 [facility] Comment on above: Order Comment: Speci men Type: ARTERIAL BLOOD SPECIMENOrdering Facility: [facility] Address: [address] [place] [address] Performed By: #### A LLBG ####[facility] LABIA [id number] [place] [address] [place] pH adjusted to patient's actual temperature (Bld) 7.37 Normal 7.35-7.45 [facility] Comment on above: Order Comment: Speci men Type: ARTERIAL BLOOD SPECIMENOrdering Facility: [facility] Address: [address] [place] [address] Performed By: #### A LLBG ####[facility] LABIA [id number] [place] [address] [place] Potassium [Moles/Vol] 5.8 mmol/L High 3.5-5.0 [facility] Comment on above: Order Comment: Speci men Type: ARTERIAL BLOOD SPECIMENOrdering Facility: [facility] Address: [address] [place] [address] Performed By: #### A LLBG ####[facility] LABIA [id number] [place] [address] [place] Sodium [Moles/Vol] 129 mmol/L Low 136-144 [facility] Comment on above: Order Comment: Speci men Type: ARTERIAL BLOOD SPECIMENOrdering Facility: [facility] Address: [address] [place] [address] Performed By: #### A LLBG ####[facility] LABIA [id number] [place] [address] [place] Base deficit (BldA) [Moles/Vol] -2 mmol/L Normal -2-0 [facility] Comment on above: Order Comment: Speci men Type: ARTERIAL BLOOD SPECIMENOrdering Facility: [facility] Address: [address] [place] [address] Performed By: #### A LLBG ####[facility] [id number] [place] [address] [place] Calcium.ionized (Bld) [Mass/Vol] 1.29 mmol/L Normal 1.08-1.30 [facility] Comment on above: Order Comment: Speci men Type: ARTERIAL BLOOD SPECIMENOrdering Facility: [facility] Address: [address] [place] [address] Performed By: #### A LLBG ####[facility] [id number] [place] [address] [place] Calcium.ionized adjusted to pH 7.4 (BldA) [Moles/Vol] 1.24 mmol/L Normal 1.08-1.30 [facility] Comment on above: Order Comment: Speci men Type: ARTERIAL BLOOD SPECIMENOrdering Facility: [facility] Address: [address] [place] [address] Performed By: #### A LLBG ####[facility] [id number] [place] [address] [place] Carboxyhemoglobin (BldA) [Mass fraction] 1.7 % Normal 0.0-2.0 [facility] Comment on above: Order Comment: Speci men Type: ARTERIAL BLOOD SPECIMENOrdering Facility: [facility] Address: [address] [place] [address] Result Comment: Carb oxyhemoglobin Reference Range for Smokers: 2.0-8.0% Performed By: #### A LLBG ####[facility] LABRUT[facility] [id number] [place] [address] [place] CO2 (Bld) [Partial pressure] 45 mm Hg Normal 36-46 [facility] Comment on above: Order Comment: Speci men Type: ARTERIAL BLOOD SPECIMENOrdering Facility: [facility] Address: [address] [place] [address] Performed By: #### A LLBG ####[facility] LABCLIA [id number] [place] [address] [place] CO2 adjusted to patient's actual temperature (Bld) [Partial pressure] 45 mmHg Normal 36-46 [facility] Comment on above: Order Comment: Speci men Type: ARTERIAL BLOOD SPECIMENOrdering Facility: [facility] Address: [address] [place] [address] Performed By: #### A LLBG ####[facility] LABCLIA [id number] [place] [address] [place] Glucose [Mass/Vol] 197 mg/dL High 60-105 [facility] Comment on above: Order Comment: Speci men Type: ARTERIAL BLOOD SPECIMENOrdering Facility: [facility] Address: [address] [place] [address] Performed By: #### A LLBG ####[facility] LABCLIA [id number] [place] [address] [place] HCO3 (Bld) [Moles/Vol] 23 mmol/L Normal 22-26 [facility] Comment on above: Order Comment: Speci men Type: ARTERIAL BLOOD SPECIMENOrdering Facility: [facility] Address: [address] [place] [address] Performed By: #### A LLBG ####[facility] LABCLIA [id number] [place] [address] [place] Hematocrit (Bld) [Volume fraction] 39.4 % Normal 36.0-46.0 [facility] Comment on above: Order Comment: Speci men Type: ARTERIAL BLOOD SPECIMENOrdering Facility: [facility] Address: [address] [place] [address] Performed By: #### A LLBG ####[facility] LABCLIA [id number] [id number] [address] [place] Hemoglobin (Bld) [Mass/Vol] 12.8 g/dL Normal 11.5-15.5 [facility] Comment on above: Order Comment: Speci men Type: ARTERIAL BLOOD SPECIMENOrdering Facility: [facility] Address: [address] [place] [address] Performed By: #### A LLBG ####[facility] LABCLIA [id number] [place] [address] [place] Lactate [Moles/Vol] 1.4 mmol/L Normal 0.5-2.2 [facility] Comment on above: Order Comment: Speci men Type: ARTERIAL BLOOD SPECIMENOrdering Facility: [facility] Address: [address] [place] [address] Performed By: #### A LLBG ####[facility] LABCLIA [id number] [place] [address] [place] Methemoglobin (Bld) [Mass fraction] 1.6 % High 0.0-1.5 [facility] Comment on above: Order Comment: Speci men Type: ARTERIAL BLOOD SPECIMENOrdering Facility: [facility] Address: [address] [place] [address] Performed By: #### A LLBG ####[facility] LABCLIA [id number] [place] [address] [place] Oxygen (Bld) [Partial pressure] 168 mm Hg High 85-95 [facility] Comment on above: Order Comment: Speci men Type: ARTERIAL BLOOD SPECIMENOrdering Facility: [facility] Address: [address] [place] [address] Performed By: #### A LLBG ####[facility] LABCLIA [id number] [place] [address] [place] Oxygen adjusted to patient's actual temperature (Bld) [Partial pressure] 168 mmHg High 85-95 [facility] Comment on above: Order Comment: Speci men Type: ARTERIAL BLOOD SPECIMENOrdering Facility: [facility] Address: [address] [place] [address] Performed By: #### A LLBG ####[facility] LABCLIA [id number] [place] [address] [place] Oxyhemoglobin (BldA) [Mass fraction] 96 % Normal 95-98 [facility] Comment on above: Order Comment: Speci men Type: ARTERIAL BLOOD SPECIMENOrdering Facility: [facility] Address: [address] [place] [address] Performed By: #### A LLBG ####[facility] LABIA [id number] [place] [address] [place] pH (Bld) 7.33 [pH] Low 7.35-7.45 [facility] Comment on above: Order Comment: Speci men Type: ARTERIAL BLOOD SPECIMENOrdering Facility: [facility] Address: [address] [place] [address] Performed By: #### A LLBG ####[facility] LABIA [id number] [place] [address] [place] pH adjusted to patient's actual temperature (Bld) 7.33 Low 7.35-7.45 [facility] Comment on above: Order Comment: Speci men Type: ARTERIAL BLOOD SPECIMENOrdering Facility: [facility] Address: [address] [place] [address] Performed By: #### A LLBG ####[facility] LABIA [id number] [place] [address] [place] Potassium [Moles/Vol] 4.3 mmol/L Normal 3.5-5.0 [facility] Comment on above: Order Comment: Speci men Type: ARTERIAL BLOOD SPECIMENOrdering Facility: [facility] Address: [address] [place] [address] Performed By: #### A LLBG ####[facility] LABIA [id number] [place] [address] [place] Sodium [Moles/Vol] 135 mmol/L Low 136-144 [facility] Comment on above: Order Comment: Speci men Type: ARTERIAL BLOOD SPECIMENOrdering Facility: [facility] Address: [address] [place] [address] Performed By: #### A LLBG ####[facility] LABIA [id number] [place] [address] [place] Base deficit (BldA) [Moles/Vol] -2 mmol/L Normal -2-0 [facility] Comment on above: Order Comment: Speci men Type: ARTERIAL BLOOD SPECIMENOrdering Facility: [facility] Address: [address] [place] [address] Performed By: #### A LLBG ####[facility] LABIA [id number] [place] [address] [place] Calcium.ionized (Bld) [Mass/Vol] 1.28 mmol/L Normal 1.08-1.30 [facility] Comment on above: Order Comment: Speci men Type: ARTERIAL BLOOD SPECIMENOrdering Facility: [facility] Address: [address] [place] [address] Performed By: #### A LLBG ####[facility] LABIA [id number] [place] [address] [place] Calcium.ionized adjusted to pH 7.4 (BldA) [Moles/Vol] 1.30 mmol/L Normal 1.08-1.30 [facility] Comment on above: Order Comment: Speci men Type: ARTERIAL BLOOD SPECIMENOrdering Facility: [facility] Address: [address] [place] [address] Performed By: #### A LLBG ####[facility] LABIA [id number] [place] [address] [place] Carboxyhemoglobin (BldA) [Mass fraction] 2.2 % High 0.0-2.0 [facility] Comment on above: Order Comment: Speci men Type: ARTERIAL BLOOD SPECIMENOrdering Facility: [facility] Address: [address] [place] [address] Result Comment: Carb oxyhemoglobin Reference Range for Smokers: 2.0-8.0% Performed By: #### A LLBG ####[facility] LABCLIA [id number] [place] [address] [place] CO2 (Bld) [Partial pressure] 33 mm Hg Low 36-46 [facility] Comment on above: Order Comment: Speci men Type: ARTERIAL BLOOD SPECIMENOrdering Facility: [facility] Address: [address] [place] [address] Performed By: #### A LLBG ####[facility] LABCLIA [id number] [place] [address] [place] CO2 adjusted to patient's actual temperature (Bld) [Partial pressure] 33 mmHg Low 36-46 [facility] Comment on above: Order Comment: Speci men Type: ARTERIAL BLOOD SPECIMENOrdering Facility: [facility] Address: [address] [place] [address] Performed By: #### A LLBG ####[facility] LABCLIA [id number] [place] [address] [place] Glucose [Mass/Vol] 173 mg/dL High 60-105 [facility] Comment on above: Order Comment: Speci men Type: ARTERIAL BLOOD SPECIMENOrdering Facility: [facility] Address: [address] [place] [address] Performed By: #### A LLBG ####[facility] LABCLIA [id number] [place] [address] [place] HCO3 (Bld) [Moles/Vol] 21 mmol/L Low 22-26 [facility] Comment on above: Order Comment: Speci men Type: ARTERIAL BLOOD SPECIMENOrdering Facility: [facility] Address: [address] [place] [address] Performed By: #### A LLBG ####[facility] LABCLIA [id number] [place] [address] [place] Hematocrit (Bld) [Volume fraction] 41.6 % Normal 36.0-46.0 [facility] Comment on above: Order Comment: Speci men Type: ARTERIAL BLOOD SPECIMENOrdering Facility: [facility] Address: [address] [place] [address] Performed By: #### A LLBG ####[facility] LABIA [id number] [place] [address] [place] Hemoglobin (Bld) [Mass/Vol] 13.5 g/dL Normal 11.5-15.5 [facility] Comment on above: Order Comment: Speci men Type: ARTERIAL BLOOD SPECIMENOrdering Facility: [facility] Address: [address] [place] [address] Performed By: #### A LLBG ####[facility] LABIA [id number] [place] [address] [place] Lactate [Moles/Vol] 2.1 mmol/L Normal 0.5-2.2 [facility] Comment on above: Order Comment: Speci men Type: ARTERIAL BLOOD SPECIMENOrdering Facility: [facility] Address: [address] [place] [address] Performed By: #### A LLBG ####[facility] LABIA [id number] [place] [address] [place] Methemoglobin (Bld) [Mass fraction] 1.3 % Normal 0.0-1.5 [facility] Comment on above: Order Comment: Speci men Type: ARTERIAL BLOOD SPECIMENOrdering Facility: [facility] Address: [address] [place] [address] Performed By: #### A LLBG ####[facility] LABIA [id number] [place] [address] [place] Oxygen (Bld) [Partial pressure] 114 mm Hg High 85-95 [facility] Comment on above: Order Comment: Speci men Type: ARTERIAL BLOOD SPECIMENOrdering Facility: [facility] Address: [address] [place] [address] Performed By: #### A LLBG ####[facility] LABCLIA [id number] [address] [address] [place] Oxygen adjusted to patient's actual temperature (Bld) [Partial pressure] 114 mmHg High 85-95 [facility] Comment on above: Order Comment: Speci men Type: ARTERIAL BLOOD SPECIMENOrdering Facility: [facility] Address: [address] [place] [address] Performed By: #### A LLBG ####[facility] LABCLIA [id number] [place] [address] [place] Oxyhemoglobin (BldA) [Mass fraction] 95 % Normal 95-98 [facility] Comment on above: Order Comment: Speci men Type: ARTERIAL BLOOD SPECIMENOrdering Facility: [facility] Address: [address] [place] [address] Performed By: #### A LLBG ####[facility] LABCLIA [id number] [place] [address] [place] pH (Bld) 7.42 [pH] Normal 7.35-7.45 [facility] Comment on above: Order Comment: Speci men Type: ARTERIAL BLOOD SPECIMENOrdering Facility: [facility] Address: [address] [place] [address] Performed By: #### A LLBG ####[facility] LABCLIA [id number] [place] [address] [place] pH adjusted to patient's actual temperature (Bld) 7.42 Normal 7.35-7.45 [facility] Comment on above: Order Comment: Speci men Type: ARTERIAL BLOOD SPECIMENOrdering Facility: [facility] Address: [address] [place] [address] Performed By: #### A LLBG ####[facility] LABCLIA [id number] [place] [address] [place] Potassium [Moles/Vol] 4.1 mmol/L Normal 3.5-5.0 [facility] Comment on above: Order Comment: Speci men Type: ARTERIAL BLOOD SPECIMENOrdering Facility: [facility] Address: [address] [place] [address] Performed By: #### A LLBG ####[facility] LABCLIA [id number] [place] [address] [place] Sodium [Moles/Vol] 133 mmol/L Low 136-144 [facility] Comment on above: Order Comment: Speci men Type: ARTERIAL BLOOD SPECIMENOrdering Facility: [facility] Address: [address] [place] [address] Performed By: #### A LLBG ####[facility] LABCLIA [id number] [place] [address] [place] ARTERIAL BLOOD GASES WITH IO NIZED MAGNESIUMon 07-29-2023 Base excess Calc (Bld) [Moles/Vol] 0 mmol/L Normal 0-2 [facility] Comment on above: Order Comment: Speci men Type: ARTERIAL BLOOD SPECIMENOrdering Facility: [facility] Address: [address] [place] [address] Performed By: #### A LLMG ####[facility] LABCLIA [id number] [place] [address] [place] Calcium.ionized (Bld) [Mass/Vol] 1.28 mmol/L Normal 1.08-1.30 [facility] Comment on above: Order Comment: Speci men Type: ARTERIAL BLOOD SPECIMENOrdering Facility: [facility] Address: [address] [place] [address] Performed By: #### A LLMG ####[facility] LABCLIA [id number] [place] [address] [place] Calcium.ionized adjusted to pH 7.4 (BldA) [Moles/Vol] 1.27 mmol/L Normal 1.08-1.30 [facility] Comment on above: Order Comment: Speci men Type: ARTERIAL BLOOD SPECIMENOrdering Facility: [facility] Address: [address] [place] [address] Performed By: #### A LLMG ####[facility] LABCLIA [id number] [place] [address] [place] Carboxyhemoglobin (BldA) [Mass fraction] 1.2 % Normal 0.0-2.0 [facility] Comment on above: Order Comment: Speci men Type: ARTERIAL BLOOD SPECIMENOrdering Facility: [facility] Address: [address] [place] [address] Result Comment: Carb oxyhemoglobin Reference Range for Smokers: 2.0-8.0% Performed By: #### A LLMG ####[facility] LABCLIA [id number] [place] [address] [place] CO2 (Bld) [Partial pressure] 42 mm Hg Normal 36-46 [facility] Comment on above: Order Comment: Speci men Type: ARTERIAL BLOOD SPECIMENOrdering Facility: [facility] Address: [address] [place] [address] Performed By: #### A LLMG ####[facility] LABCLIA [id number] [place] [address] [place] CO2 adjusted to patient's actual temperature (Bld) [Partial pressure] 42 mmHg Normal 36-46 [facility] Comment on above: Order Comment: Speci men Type: ARTERIAL BLOOD SPECIMENOrdering Facility: [facility] Address: [address] [place] [address] Performed By: #### A LLMG ####[facility] LABCLIA [id number] [place] [address] [place] Glucose [Mass/Vol] 119 mg/dL High 60-105 [facility] Comment on above: Order Comment: Speci men Type: ARTERIAL BLOOD SPECIMENOrdering Facility: [facility] Address: [address] [place] [address] Performed By: #### A LLMG ####[facility] LABCLIA [id number] [place] [address] [place] HCO3 (Bld) [Moles/Vol] 25 mmol/L Normal 22-26 [facility] Comment on above: Order Comment: Speci men Type: ARTERIAL BLOOD SPECIMENOrdering Facility: [facility] Address: [address] [place] [address] Performed By: #### A LLMG ####[facility] LABCLIA [id number] [place] [address] [place] Hematocrit (Bld) [Volume fraction] 35.4 % Low 36.0-46.0 [facility] Comment on above: Order Comment: Speci men Type: ARTERIAL BLOOD SPECIMENOrdering Facility: [facility] Address: [address] [place] [address] Performed By: #### A LLMG ####[facility] LABCLIA [id number] [place] [address] [place] Hemoglobin (Bld) [Mass/Vol] 11.5 g/dL Normal 11.5-15.5 [facility] Comment on above: Order Comment: Speci men Type: ARTERIAL BLOOD SPECIMENOrdering Facility: [facility] Address: [address] [place] [address] Performed By: #### A LLMG ####[facility] LABCLIA [id number] [place] [address] [place] Lactate [Moles/Vol] 2.4 mmol/L High 0.5-2.2 [facility] Comment on above: Order Comment: Speci men Type: ARTERIAL BLOOD SPECIMENOrdering Facility: [facility] Address: [address] [place] [address] Performed By: #### A LLMG ####[facility] LABCLIA [id number] [place] [address] [place] Magnesium [Moles/Vol] 0.51 mmol/L Normal 0.45-0.60 [facility] Comment on above: Order Comment: Speci men Type: ARTERIAL BLOOD SPECIMENOrdering Facility: [facility] Address: [address] [place] [address] Performed By: #### A LLMG ####[facility] LABCLIA [id number] [place] [address] [place] Methemoglobin (Bld) [Mass fraction] 1.0 % Normal 0.0-1.5 [facility] Comment on above: Order Comment: Speci men Type: ARTERIAL BLOOD SPECIMENOrdering Facility: [facility] Address: [address] [place] [address] Performed By: #### A LLMG ####[facility] LABIA [id number] [place] [address] [place] Oxygen (Bld) [Partial pressure] 150 mm Hg High 85-95 [facility] Comment on above: Order Comment: Speci men Type: ARTERIAL BLOOD SPECIMENOrdering Facility: [facility] Address: [address] [place] [address] Performed By: #### A LLMG ####[facility] LABIA [id number] [place] [address] [place] Oxygen adjusted to patient's actual temperature (Bld) [Partial pressure] 150 mmHg High 85-95 [facility] Comment on above: Order Comment: Speci men Type: ARTERIAL BLOOD SPECIMENOrdering Facility: [facility] Address: [address] [place] [address] Performed By: #### A LLMG ####[facility] LABIA [id number] [place] [address] [place] Oxyhemoglobin (BldA) [Mass fraction] 97 % Normal 95-98 [facility] Comment on above: Order Comment: Speci men Type: ARTERIAL BLOOD SPECIMENOrdering Facility: [facility] Address: [address] [place] [address] Performed By: #### A LLMG ####[facility] LABCLIA [id number] [place] [address] [place] pH (Bld) 7.39 [pH] Normal 7.35-7.45 [facility] Comment on above: Order Comment: Speci men Type: ARTERIAL BLOOD SPECIMENOrdering Facility: [facility] Address: [address] [place] [address] Performed By: #### A LLMG ####[facility] LABCLIA [id number] [place] [address] [place] pH adjusted to patient's actual temperature (Bld) 7.39 Normal 7.35-7.45 [facility] Comment on above: Order Comment: Speci men Type: ARTERIAL BLOOD SPECIMENOrdering Facility: [facility] Address: [address] [place] [address] Performed By: #### A LLMG ####[facility] LABCLIA [id number] [place] [address] [place] Potassium [Moles/Vol] 3.9 mmol/L Normal 3.5-5.0 [facility] Comment on above: Order Comment: Speci men Type: ARTERIAL BLOOD SPECIMENOrdering Facility: [facility] Address: [address] [place] [address] Performed By: #### A LLMG ####[facility] LABIA [id number] [place] [address] [place] Sodium [Moles/Vol] 134 mmol/L Low 136-144 [facility] Comment on above: Order Comment: Speci men Type: ARTERIAL BLOOD SPECIMENOrdering Facility: [facility] Address: [address] [place] [address] Performed By: #### A LLMG ####[facility] LABIA [id number] [place] [address] [place] CBC panel Auto (Bld)on 07-29 Erythrocyte distribution width (RBC) [Ratio] 11.9 % Normal 11.5-15.0 [facility] Comment on above: Order Comment: Speci men Type: BLOOD SPECIMENOrdering Facility: [facility] Address: [address] [place] [address] Performed By: #### 5 8410-2 ####[facility] LABIA [id number] [place] [address] [place] Hematocrit (Bld) [Volume fraction] 35.0 % Low 36.0-46.0 [facility] Comment on above: Order Comment: Speci men Type: BLOOD SPECIMENOrdering Facility: [facility] Address: [address] [place] [address] Performed By: #### 5 8410-2 ####[facility] LABIA [id number] [place] [address] [place] Hemoglobin (Bld) [Mass/Vol] 11.9 g/dL Normal 11.5-15.5 [facility] Comment on above: Order Comment: Speci men Type: BLOOD SPECIMENOrdering Facility: [facility] Address: [address] [place] [address] Performed By: #### 5 8410-2 ####[facility] LABIA [id number] [place] [address] [place] MCH (RBC) [Entitic mass] 31.3 pg Normal 26.0-34.0 [facility] Comment on above: Order Comment: Speci men Type: BLOOD SPECIMENOrdering Facility: [facility] Address: [address] [place] [address] Performed By: #### 5 8410-2 ####[facility] LABIA [id number] [place] [address] [place] MCHC (RBC) [Mass/Vol] 34.0 g/dL Normal 30.5-36.0 [facility] Comment on above: Order Comment: Speci men Type: BLOOD SPECIMENOrdering Facility: [facility] Address: [address] [place] [address] Performed By: #### 5 8410-2 ####[facility] LABCLIA [id number] [place] [address] [place] MCV (RBC) [Entitic vol] 92.1 fL Normal 80.0-100.0 [facility] Comment on above: Order Comment: Speci men Type: BLOOD SPECIMENOrdering Facility: [facility] Address: [address] [place] [address] Performed By: #### 5 8410-2 ####[facility] LABCLIA [id number] [place] [address] [place] Nucleated RBC (Bld) [#/Vol] 10*3/uL Normal <0.01 [facility] Comment on above: Order Comment: Speci men Type: BLOOD SPECIMENOrdering Facility: [facility] Address: [address] [place] [address] Performed By: #### 5 8410-2 ####[facility] LABCLIA [id number] [place] [address] [place] Platelet mean volume (Bld) [Entitic vol] 9.8 fL Normal 9.0-12.7 [facility] Comment on above: Order Comment: Speci men Type: BLOOD SPECIMENOrdering Facility: [facility] Address: [address] [place] [address] Performed By: #### 5 8410-2 ####[facility] LABCLIA [id number] [place] [address] [place] Platelets (Bld) [#/Vol] 170 10*3/uL Normal 150-400 [facility] Comment on above: Order Comment: Speci men Type: BLOOD SPECIMENOrdering Facility: [facility] Address: [address] [place] [address] Performed By: #### 5 8410-2 ####[facility] LABCLIA [id number] [place] [address] [place] RBC (Bld) [#/Vol] 3.80 10*6/uL Low 3.90-5.20 [facility] Comment on above: Order Comment: Speci men Type: BLOOD SPECIMENOrdering Facility: [facility] Address: [address] [place] [address] Performed By: #### 5 8410-2 ####[facility] LABCLIA [id number] [place] [address] [place] WBC (Bld) [#/Vol] 11.18 10*3/uL High 3.70-11.00 [facility] Comment on above: Order Comment: Speci men Type: BLOOD SPECIMENOrdering Facility: [facility] Address: [address] [place] [address] Performed By: #### 5 8410-2 ####[facility] LABCLIA [id number] [place] [address] [place] Fibrinogen PPP-mCncon 2023 Fibrinogen Coag (PPP) [Mass/Vol] 348 mg/dL Normal 200-400 [facility] Comment on above: Order Comment: Speci men Type: BLOOD SPECIMENOrdering Facility: [facility] Address: [address] [place] [address] Performed By: #### 3 255-7, 85499-9, 56055-7 ####[facility] LABCLIA [id number] [place] [address] [place] Fibrinogen Coag (PPP) [Mass/Vol] 165 mg/dL Low 200-400 [facility] Comment on above: Order Comment: Speci men Type: BLOOD SPECIMENOrdering Facility: [facility] Address: [address] [place] [address] Performed By: #### 3 255-7 ####[facility] LABCLIA [id number] [place] [address] [place] Gas + CO Pnl BldVon 07-29-19 24 Lactate [Moles/Vol] 1.4 mmol/L Normal 0.5-2.2 [facility] Comment on above: Order Comment: Speci men Type: VENOUS BLOOD SPECIMENOrdering Facility: [facility] Address: [address] [place] [address] Performed By: #### 2 4344-4 ####[facility] LABIA [id number] [place] [address] [place] Order Comment: Speci men Type: ARTERIAL BLOOD SPECIMENOrdering Facility: [facility] Address: [address] [place] [address] Performed By: #### A LLBG ####[facility] LABIA [id number] [place] [address] [place] Gas and Carbon monoxide pane l (BldV)on 07-29-2023 BASE DEFICIT, VENOUS -3 mmol/L Low -2-0 [facility] Comment on above: Order Comment: Speci men Type: VENOUS BLOOD SPECIMENOrdering Facility: [facility] Address: [address] [place] [address] Performed By: #### 2 4344-4 ####[facility] LABIA [id number] [place] [address] [place] Calcium.ionized (Bld) [Mass/Vol] 1.19 mmol/L Normal 1.08-1.30 [facility] Comment on above: Order Comment: Speci men Type: VENOUS BLOOD SPECIMENOrdering Facility: [facility] Address: [address] [place] [address] Performed By: #### 2 4344-4 ####[facility] LABIA [id number] [place] [address] [place] Calcium.ionized adjusted to pH 7.4 (BldA) [Moles/Vol] 1.15 mmol/L Normal 1.08-1.30 [facility] Comment on above: Order Comment: Speci men Type: VENOUS BLOOD SPECIMENOrdering Facility: [facility] Address: [address] [place] [address] Performed By: #### 2 4344-4 ####[facility] LABIA [id number] [place] [address] [place] Carboxyhemoglobin (BldV) [Mass fraction] 1.7 % Normal 0.0-2.0 [facility] Comment on above: Order Comment: Speci men Type: VENOUS BLOOD SPECIMENOrdering Facility: [facility] Address: [address] [place] [address] Result Comment: Carb oxyhemoglobin Reference Range for Smokers: 2.0-8.0% Performed By: #### 2 4344-4 ####[facility] LABIA [id number] [place] [address] [place] CO2 (BldV) [Partial pressure] 45 mm[Hg] Normal 42-55 [facility] Comment on above: Order Comment: Speci men Type: VENOUS BLOOD SPECIMENOrdering Facility: [facility] Address: [address] [place] [address] Performed By: #### 2 4344-4 ####[facility] LABIA [id number] [place] [address] [place] CO2 adjusted to patient's actual temperature (BldV) [Partial pressure] 45 mmHg Normal 42-55 [facility] Comment on above: Order Comment: Speci men Type: VENOUS BLOOD SPECIMENOrdering Facility: [facility] Address: [address] [place] [address] Performed By: #### 2 4344-4 ####[facility] LABIA [id number] [place] [address] [place] Glucose [Mass/Vol] 241 mg/dL High 60-105 [facility] Comment on above: Order Comment: Speci men Type: VENOUS BLOOD SPECIMENOrdering Facility: [facility] Address: [address] [place] [address] Performed By: #### 2 4344-4 ####[facility] LABCLIA [id number] [place] [address] [place] HCO3 (Bld) [Moles/Vol] 23 mmol/L Low 24-28 [facility] Comment on above: Order Comment: Speci men Type: VENOUS BLOOD SPECIMENOrdering Facility: [facility] Address: [address] [place] [address] Performed By: #### 2 4344-4 ####[facility] LABCLIA [id number] [place] [address] [place] Hematocrit (Bld) [Volume fraction] 33.3 % Low 36.0-46.0 [facility] Comment on above: Order Comment: Speci men Type: VENOUS BLOOD SPECIMENOrdering Facility: [facility] Address: [address] [place] [address] Performed By: #### 2 4344-4 ####[facility] LABCLIA [id number] [place] [address] [place] Hemoglobin (Bld) [Mass/Vol] 10.8 g/dL Low 11.5-15.5 [facility] Comment on above: Order Comment: Speci men Type: VENOUS BLOOD SPECIMENOrdering Facility: [facility] Address: [address] [place] [address] Performed By: #### 2 4344-4 ####[facility] LABCLIA [id number] [place] [address] [place] Methemoglobin (Bld) [Mass fraction] 1.2 % Normal 0.0-1.5 [facility] Comment on above: Order Comment: Speci men Type: VENOUS BLOOD SPECIMENOrdering Facility: [facility] Address: [address] [place] [address] Performed By: #### 2 4344-4 ####[facility] LABCLIA [id number] [address] [address] [place] Oxygen (BldV) [Partial pressure] 51 mm[Hg] High 35-45 [facility] Comment on above: Order Comment: Speci men Type: VENOUS BLOOD SPECIMENOrdering Facility: [facility] Address: [address] [place] [address] Performed By: #### 2 4344-4 ####[facility] LABCLIA [id number] [address] [address] [place] Oxygen adjusted to patient's actual temperature (BldV) [Partial pressure] 51 mmHg High 35-45 [facility] Comment on above: Order Comment: Speci men Type: VENOUS BLOOD SPECIMENOrdering Facility: [facility] Address: [address] [place] [address] Performed By: #### 2 4344-4 ####[facility] LABCLIA [id number] [address] [address] [place] Oxygen saturation in Venous blood 83 % Normal 60-85 [facility] Comment on above: Order Comment: Speci men Type: VENOUS BLOOD SPECIMENOrdering Facility: [facility] Address: [address] [place] [address] Performed By: #### 2 4344-4 ####[facility] LABCLIA [id number] [address] [address] [place] Oxyhemoglobin (BldV) [Mass fraction] 80 % Normal 60-85 [facility] Comment on above: Order Comment: Speci men Type: VENOUS BLOOD SPECIMENOrdering Facility: [facility] Address: [address] [place] [address] Performed By: #### 2 4344-4 ####[facility] LABCLIA [id number] [place] [address] [place] pH (BldV) 7.33 [pH] Normal 7.32-7.42 [facility] Comment on above: Order Comment: Speci men Type: VENOUS BLOOD SPECIMENOrdering Facility: [facility] Address: [address] [place] [address] Performed By: #### 2 4344-4 ####[facility] LABCLIA [id number] [place] [address] [place] pH adjusted to patient's actual temperature (BldV) 7.33 Normal 7.32-7.42 [facility] Comment on above: Order Comment: Speci men Type: VENOUS BLOOD SPECIMENOrdering Facility: [facility] Address: [address] [place] [address] Performed By: #### 2 4344-4 ####[facility] LABCLIA [id number] [place] [address] [place] Potassium [Moles/Vol] 5.7 mmol/L High 3.5-5.0 [facility] Comment on above: Order Comment: Speci men Type: VENOUS BLOOD SPECIMENOrdering Facility: [facility] Address: [address] [place] [address] Performed By: #### 2 4344-4 ####[facility] LABIA [id number] [place] [address] [place] Sodium [Moles/Vol] 130 mmol/L Low 136-144 [facility] Comment on above: Order Comment: Speci men Type: VENOUS BLOOD SPECIMENOrdering Facility: [facility] Address: [address] [place] [address] Performed By: #### 2 4344-4 ####[facility] LABCLIA [id number] [place] [address] [place] Glucose [facility] Glucose [Mass/Vol] 131 mg/dL High 74-99 [facility] Comment on above: Order Comment: Phyllis stein Type: BLOOD SPECIMENOrdering Facility: [facility] Address: [address] [place] [address] Result Comment: The [place] [employer] Association (ADA) provides guidance for cutoff [...] Standards of Medical Care in Diabetes 2016, [place] [employer]. Diabetes Care. 2016.39(Suppl 1). Performed By: #### 2 345-7, K1 ####[facility] LABCLIA [id number] [place] [address] [place] HCV RNA WALKER+probe Qnon 07-29 HBV surface Ag Ql (S) Negative Normal Negative [facility] Comment on above: Order Comment: Phyllis stein Type: BLOOD SPECIMENOrdering Facility: [facility] Exposure Address: [place] [address] Performed By: #### 1 1011-4 ####[facility] LABCLIA [id number] [place] [address] [place] HCV Ab Ql (S) Negative Normal Negative [facility] Comment on above: Order Comment: Phyllis stein Type: BLOOD SPECIMENOrdering Facility: [facility] Exposure Address: [place] [address] Result Comment: The result suggests no evidence of active infection with Hepatitis C virus. Should recent infection be suspected, repeat testing may be considered 4-6 weeks after this draw. Performed By: #### 1 1011-4 ####[facility] LABCLIA [id number] [place] [address] [place] HIV 1 and 2 Ab IA.rapid Nom (S/P/Bld) Normal [facility] Comment on above: Order Comment: Speci men Type: BLOOD SPECIMENOrdering Facility: [facility] Exposure Address: [place] [address] Result Comment: Test not indicated. Performed By: #### 1 1011-4 ####[facility] LABCLIA [id number] [address] OF [facility] HIV 1+2 Ab+HIV1 p24 Ag IA Ql Non-Reactive Normal Nonreactive [facility] Comment on above: Order Comment: Speci men Type: BLOOD SPECIMENOrdering Facility: [facility] Exposure Address: [place] [address] Performed By: #### 1 1011-4 ####[facility] [id number] [address] OF [facility] HIV immunoassay testing algorithm interpretation (S/P/Bld) [Interp] Normal [facility] Comment on above: Order Comment: Speci men Type: BLOOD SPECIMENOrdering Facility: [facility] Exposure Address: [place] [address] Result Comment: No e vidence of HIV-1 or HIV-2 infection. Should recent infection be suspected, repeat testing may be considered 2-3 weeks after this draw.[place] Rev. Code 3701.243(E): This information has been [...] or diagnoses. Performed By: #### 1 1011-4 ####[facility] LABIA [id number] [place] [address] [place] HISTORY PHYSICALon 4 HISTORY PHYSICAL Normal [place] HIV1+2 Ab Ser Qlon 4 HIV 1+2 Ab Ql (S) Negative Normal Non-Reacti ve : Negative for both HIV1 and HIV2 antibodies. [facility] Comment on above: Order Comment: Speci men Type: BLOOD SPECIMENOrdering Facility: [facility] Address: [address] [address] Result Comment: A no n-reactive result does not preclude the possibility of exposure to HIV or infection with HIV. An antibody response to recent exposure may take several weeks to reach detectable levels with this assay.Performed by the [employer] ADVANCE Rapid HIV-1/2 Antibody Test.HIV Information: [place] Rev. Code 3701.243(E):This information has been disclosed [...] or diagnoses. Performed By: #### 7 918-6 ####[facility] LABIA [id number] [place] [address] [place] INTRAOPERATIVE ECHO PREon INTRAOPERATIVE ECHO PRE Normal [facility] OPERATIVE NOon 07-29-[address] [facility] POTASSIUM BLDon 07-29-2023 Potassium [Moles/Vol] 4.6 mmol/L Normal 3.7-5.1 [facility] Comment on above: Order Comment: Speci men Type: BLOOD SPECIMENOrdering Facility: [facility] Address: [address] [place] [address] Performed By: #### 2 345-7, K1 ####[facility] LABIA [id number] [place] [address] [place] PT panel Coag (PPP)on 2023 INR Coag (PPP) [Relative time] 1.1 {INR} Normal 0.9-1.3 [facility] Comment on above: Order Comment: Speci men Type: BLOOD SPECIMENOrdering Facility: [facility] Address: [address] [place] [address] Result Comment: Suzanne min K Antagonist (VKA) Therapeutic Range: INR 2 to 3 (Target INR of 2.5)Note: For patients treated with VKA drugs, such as warfarin, the [place] [employer] 2012 Guideline recommends [...] al. Chest 2012, 141:7S-47SNishausten RA, et al. [facility] 2017, 70: 252-289 Performed By: #### 3 255-7, 92908-9, 00583-9 ####[facility] LABCLIA [id number] [place] [address] [place] PT Coag (PPP) [Time] 11.5 s Normal 9.7-13.0 [facility] Comment on above: Order Comment: Speci men Type: BLOOD SPECIMENOrdering Facility: [facility] Address: [address] [place] [address] Performed By: #### 3 255-7, 59713-5, 44328-9 ####[facility] LABCLIA [id number] [place] [id number] [place] Platelets Auto (Bld) [#/Vol] on 07-29-2023 Platelets (Bld) [#/Vol] 194 10*3/uL Normal 150-400 [facility] Comment on above: Order Comment: Speci men Type: BLOOD SPECIMENOrdering Facility: [facility] Address: [address] [place] [address] Performed By: #### 7 77-3 ####[facility] LABCLIA [id number] [address] OF [place] STAPH AUREUS PCRon 4 S. aureus and MRSA panel WALKER+probe (Nose) Normal Negative [facility] Comment on above: Order Comment: Speci men Type: SWAB OF INTERNAL NOSEOrdering Facility: [facility] Address: [address] [place] [address] Result Comment: Nega tive for Staphylococcus aureus by PCR.Negative for MRSA by PCR Performed By: #### S APCR ####[facility] LABCLIA [id number] [address] OF [place] SURGICAL PATHOLOGYon [address] [facility] Comment on above: Order Comment: Speci men Type: TISSUE SPECIMENOrdering Facility: [facility] Address: [address] [place] [address] Result Comment: Surg ical Pathology Report Case: [id number] Provider: Willem Suarez MD Collected: 07/29/2023 10:16 AMOrdering Location: Admitting Received: 07/29/2023 02:15 PMPathologist: Sarita Black MDSpecimen: SOFT TISSUE, endarterectomy Performed By: #### S ####[facility] LABCLIA [id number] [address] STATES [facility] CLINICAL HISTORY Normal [place] Comment on above: Order Comment: Speci men Type: TISSUE SPECIMENOrdering Facility: [facility] Address: [address] [place] [address] Result Comment: Pre- op diagnosis: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 There is no evidence of tunica media. Normal [facility] Comment on above: Order Comment: Speci men Type: TISSUE SPECIMENOrdering Facility: [facility] Address: [address] [place] [address] Performed By: #### S ####[facility] LABCLIA [id number] [address] [place] FINAL DIAGNOSIS Normal [facility] Comment on above: Order Comment: Speci men Type: TISSUE SPECIMENOrdering Facility: [facility] Address: [address] [place] [address] Result Comment: A. C oronary artery (site not stated), endarterectomy:-Fibroatheromatous plaque. Performed By: #### S ####[facility] LABCLIA [id number] [place] [address] [place] FINAL PERFORMING LAB Normal [facility] Comment on above: Order Comment: Speci men Type: TISSUE SPECIMENOrdering Facility: [facility] Address: [address] [place] [address] Result Comment: Diag nostic interpretation performed at [facility], [address] [place] [address] CLIA# [id number] Director: Jonathan Pavon M.D. Performed By: #### S ####[facility] LABCLIA [id number] [address] [place] GROSS DESCRIPTION A. SOFT TISSUE Normal [facility] Comment on above: Order Comment: Speci men Type: TISSUE SPECIMENOrdering Facility: [facility] Address: [address] [place] [address] Result Comment: Rece ived fresh labeled endarterectomy is a kate-pham, irregular segment of soft probable plaque material. The specimen is entirely submitted intact in one cassette.Gross examination performed at [facility], [address] [place] [address] CLIA# [id number] 07/29/23 Performed By: #### S ####[facility] LABIA [id number] [place] [address] [place] THROMBOGRAPH HEPARINASE PANE [place] 07-29-2023 Clot angle after addition of heparinase TEG (Bld) [Angle] 65.5 degrees Normal 47.0-74.0 [facility] Comment on above: Order Comment: Speci men Type: BLOOD SPECIMENOrdering Facility: [facility] Address: [address] [place] [address] Performed By: #### T EGHPP ####[facility] [id number] [address] [place] Clot Lysis 30 Min post maximum clot amplitude TEG (Bld) [Length fraction] 0.0 % Normal 0.0-8.0 [facility] Comment on above: Order Comment: Speci men Type: BLOOD SPECIMENOrdering Facility: [facility] Address: [address] [place] [address] Performed By: #### T EGHPP ####[facility] [id number] [place] [address] [place] Clotting time after addition of heparinase TEG (Bld) 10.8 minutes High 4.0-10.0 [facility] Comment on above: Order Comment: Speci men Type: BLOOD SPECIMENOrdering Facility: [facility] Address: [address] [place] [address] Performed By: #### T EGHPP ####[facility] [id number] [place] [id number] [place] Coagulation index TEG Qn (Bld) -2.9 Normal -4.6-3.2 [facility] Comment on above: Order Comment: Speci men Type: BLOOD SPECIMENOrdering Facility: [facility] Address: [address] [place] [address] Result Comment: The Coagulation Index, a secondary parameter, is labeled by the humane officer as for research use only and is used per the humane officer's instructions. Its performance characteristics were determined by [facility] Pathology and Laboratory Medicine [place] in a manner consistent with CLIA requirements. This test has not been cleared by the U.S. Food and Drug Administration. Performed By: #### T EGHPP ####[facility] LABCLIA [id number] [facility] [place] [address] [place] Maximum clot firmness after addition of heparinase TEG (Bld) [Length] 61.9 mm Normal 51.0-75.0 [facility] Comment on above: Order Comment: Specmarko stein Type: BLOOD SPECIMENOrdering Facility: [facility] Address: [address] [place] [address] Performed By: #### T EGHPP ####[facility] LABCLIA [id number] [facility] [address] [place] Thromboelastography after addtion of heparinase panel (Bld) Normal [facility] Comment on above: Order Comment: Phyllis stein Type: BLOOD SPECIMENOrdering Facility: [facility] Address: [address] [place] [address] Result Comment: A th romboelastograph (TEG) study [...] TEG results. Performed By: #### T EGHPP ####[facility] LABCLIA [id number] [facility] [address] [place] THROMBOGRAPH PANELon 024 Clot angle TEG (Bld) [Angle] 61.3 degrees Normal 47.0-74.0 [facility] Comment on above: Order Comment: Speci men Type: BLOOD SPECIMENOrdering Facility: [facility] Address: [address] [place] [address] Performed By: #### T EGPNP ####[facility] LABIA [id number] [address] [place] Clot Lysis 30 Min post maximum clot amplitude TEG (Bld) [Length fraction] 0.0 % Normal 0.0-8.0 [facility] Comment on above: Order Comment: Speci men Type: BLOOD SPECIMENOrdering Facility: [facility] Address: [address] [place] [address] Performed By: #### T EGPNP ####[facility] [id number] [place] [address] [place] Clotting time TEG (Bld) 6.8 minutes Normal 4.0-10.0 [facility] Comment on above: Order Comment: Speci men Type: BLOOD SPECIMENOrdering Facility: [facility] Address: [address] [place] [address] Performed By: #### T EGPNP ####[facility] [id number] [place] [address] [place] Coagulation index TEG Qn (Bld) -0.8 Normal -4.6-3.2 [facility] Comment on above: Order Comment: Speci men Type: BLOOD SPECIMENOrdering Facility: [facility] Address: [address] [place] [address] Result Comment: The Coagulation Index, a secondary parameter, is labeled by the humane officer as for research use only and is used per the humane officer's instructions. Its performance characteristics were determined by [facility] Pathology and Laboratory Medicine [place] in a manner consistent with CLIA requirements. This test has not been cleared by the U.S. Food and Drug Administration. Performed By: #### T EGPNP ####[facility] LABIA [id number] [place] [address] [place] Maximum clot firmness TEG (Bld) [Length] 62.4 mm Normal 51.0-75.0 [facility] Comment on above: Order Comment: Phyllis stein Type: BLOOD SPECIMENOrdering Facility: [facility] Address: [address] [place] [address] Performed By: #### T EGPNP ####[facility] [id number] [address] [place] Thromboelastography after addtion of heparinase panel (Bld) Normal [facility] Comment on above: Order Comment: Phyllis stein Type: BLOOD SPECIMENOrdering Facility: [facility] Address: [address] [place] [address] Result Comment: A th romboelastograph (TEG) study [...] TEG results. Performed By: #### T EGPNP ####[facility] LABIA [id number] [place] [address] [place] XR CHEST 1V FRONTAL PORTon 0 07-29-2023 XR CHEST 1V FRONTAL PORT Normal [facility] aPTT PPPon 07-29-2023 aPTT Coag (PPP) [Time] 28.1 s Normal 23.0-32.4 [facility] Comment on above: Order Comment: Speci men Type: BLOOD SPECIMENOrdering Facility: [facility] Address: [address] [place] [address] Performed By: #### 3 255-7, 13779-7, 12424-5 ####[facility] LABCLIA [id number] [place] [address] [place] CNPNon 07-24-[address] [facility] CNPTOUTREACHon 07-24-[address] [facility] CBC W Auto Differential pane l (Bld)on 07-17-2023 Basophils (Bld) [#/Vol] 0.03 10*3/uL Normal <0.11 [facility] Comment on above: Order Comment: Speci men Type: BLOOD SPECIMENOrdering Facility: [facility] Address: [address] [place] [address] Performed By: #### 5 7021-8 ####[facility] LABCLIA [id number] [place] [address] [place] Basophils/100 WBC (Bld) 0.5 % Normal [facility] Comment on above: Order Comment: Speci men Type: BLOOD SPECIMENOrdering Facility: [facility] Address: [address] [place] [address] Performed By: #### 5 7021-8 ####[facility] LABCLIA [id number] [place] [address] [place] Differential cell count method Nom (Bld) Auto Normal [facility] Comment on above: Order Comment: Speci men Type: BLOOD SPECIMENOrdering Facility: [facility] Address: [address] [place] [address] Performed By: #### 5 7021-8 ####[facility] LABCLIA [id number] [place] [address] [place] Eosinophils (Bld) [#/Vol] 0.15 10*3/uL Normal <0.46 [facility] Comment on above: Order Comment: Speci men Type: BLOOD SPECIMENOrdering Facility: [facility] Address: [address] [place] [address] Performed By: #### 5 7021-8 ####[facility] LABCLIA [id number] [place] [address] [place] Eosinophils/100 WBC (Bld) 2.5 % Normal [facility] Comment on above: Order Comment: Speci men Type: BLOOD SPECIMENOrdering Facility: [facility] Address: [address] [place] [address] Performed By: #### 5 7021-8 ####[facility] LABCLIA [id number] [place] [address] [place] Erythrocyte distribution width (RBC) [Ratio] 12.2 % Normal 11.5-15.0 [facility] Comment on above: Order Comment: Speci men Type: BLOOD SPECIMENOrdering Facility: [facility] Address: [address] [place] [address] Performed By: #### 5 7021-8 ####[facility] LABCLIA [id number] [place] [address] [place] Hematocrit (Bld) [Volume fraction] 46.2 % High 36.0-46.0 [facility] Comment on above: Order Comment: Speci men Type: BLOOD SPECIMENOrdering Facility: [facility] Address: [address] [place] [address] Performed By: #### 5 7021-8 ####[facility] LABCLIA [id number] [place] [address] [place] Hemoglobin (Bld) [Mass/Vol] 14.9 g/dL Normal 11.5-15.5 [facility] Comment on above: Order Comment: Speci men Type: BLOOD SPECIMENOrdering Facility: [facility] Address: [address] [place] [address] Performed By: #### 5 7021-8 ####[facility] LABCLIA [id number] [place] [address] [place] Immature granulocytes (Bld) [#/Vol] 0.05 10*3/uL Normal <0.10 [facility] Comment on above: Order Comment: Speci men Type: BLOOD SPECIMENOrdering Facility: [facility] Address: [address] [place] [address] Performed By: #### 5 7021-8 ####[facility] LABCLIA [id number] [place] [address] [place] Immature granulocytes/100 WBC (Bld) 0.8 % Normal [facility] Comment on above: Order Comment: Speci men Type: BLOOD SPECIMENOrdering Facility: [facility] Address: [address] [place] [address] Performed By: #### 5 7021-8 ####[facility] LABCLIA [id number] [place] [address] [place] Lymphocytes (Bld) [#/Vol] 2.33 10*3/uL Normal 1.00-4.00 [facility] Comment on above: Order Comment: Speci men Type: BLOOD SPECIMENOrdering Facility: [facility] Address: [address] [place] [address] Performed By: #### 5 7021-8 ####[facility] LABCLIA [id number] [place] [address] [place] Lymphocytes/100 WBC (Bld) 39.0 % Normal [facility] Comment on above: Order Comment: Speci men Type: BLOOD SPECIMENOrdering Facility: [facility] Address: [address] [place] [address] Performed By: #### 5 7021-8 ####[facility] LABCLIA [id number] [place] [address] [place] MCH (RBC) [Entitic mass] 31.2 pg Normal 26.0-34.0 [facility] Comment on above: Order Comment: Speci men Type: BLOOD SPECIMENOrdering Facility: [facility] Address: [address] [place] [address] Performed By: #### 5 7021-8 ####[facility] LABCLIA [id number] [place] [address] [place] MCHC (RBC) [Mass/Vol] 32.3 g/dL Normal 30.5-36.0 [facility] Comment on above: Order Comment: Speci men Type: BLOOD SPECIMENOrdering Facility: [facility] Address: [address] [place] [address] Performed By: #### 5 7021-8 ####[facility] LABIA [id number] [place] [address] [place] MCV (RBC) [Entitic vol] 96.7 fL Normal 80.0-100.0 [facility] Comment on above: Order Comment: Speci men Type: BLOOD SPECIMENOrdering Facility: [facility] Address: [address] [place] [address] Performed By: #### 5 7021-8 ####[facility] LABIA [id number] [place] [address] [place] Monocytes (Bld) [#/Vol] 0.60 10*3/uL Normal <0.87 [facility] Comment on above: Order Comment: Speci men Type: BLOOD SPECIMENOrdering Facility: [facility] Address: [address] [place] [address] Performed By: #### 5 7021-8 ####[facility] LABCLIA [id number] [place] [address] [place] Monocytes/100 WBC (Bld) 10.1 % Normal [facility] Comment on above: Order Comment: Speci men Type: BLOOD SPECIMENOrdering Facility: [facility] Address: [address] [place] [address] Performed By: #### 5 7021-8 ####[facility] LABCLIA [id number] [place] [address] [place] Neutrophils (Bld) [#/Vol] 2.81 10*3/uL Normal 1.45-7.50 [facility] Comment on above: Order Comment: Speci men Type: BLOOD SPECIMENOrdering Facility: [facility] Address: [address] [place] [address] Performed By: #### 5 7021-8 ####[facility] LABCLIA [id number] [place] [address] [place] Neutrophils/100 WBC (Bld) 47.1 % Normal [facility] Comment on above: Order Comment: Speci men Type: BLOOD SPECIMENOrdering Facility: [facility] Address: [address] [place] [address] Performed By: #### 5 7021-8 ####[facility] LABCLIA [id number] [place] [address] [place] Nucleated RBC (Bld) [#/Vol] 10*3/uL Normal <0.01 [facility] Comment on above: Order Comment: Speci men Type: BLOOD SPECIMENOrdering Facility: [facility] Address: [address] [place] [address] Performed By: #### 5 7021-8 ####[facility] LABCLIA [id number] [place] [address] [place] Nucleated RBC/100 WBC (Bld) [Ratio] 0.0 /[address] [facility] Comment on above: Order Comment: Speci men Type: BLOOD SPECIMENOrdering Facility: [facility] Address: [address] [place] [address] Performed By: #### 5 7021-8 ####[facility] LABCLIA [id number] [place] [address] [place] Platelet mean volume (Bld) [Entitic vol] 9.6 fL Normal 9.0-12.7 [facility] Comment on above: Order Comment: Speci men Type: BLOOD SPECIMENOrdering Facility: [facility] Address: [address] [place] [address] Performed By: #### 5 7021-8 ####[facility] LABIA [id number] [place] [address] [place] Platelets (Bld) [#/Vol] 239 10*3/uL Normal 150-400 [facility] Comment on above: Order Comment: Speci men Type: BLOOD SPECIMENOrdering Facility: [facility] Address: [address] [place] [address] Performed By: #### 5 7021-8 ####[facility] LABIA [id number] [place] [address] [place] RBC (Bld) [#/Vol] 4.78 10*6/uL Normal 3.90-5.20 [facility] Comment on above: Order Comment: Speci men Type: BLOOD SPECIMENOrdering Facility: [facility] Address: [address] [place] [address] Performed By: #### 5 7021-8 ####[facility] LABIA [id number] [place] [address] [place] WBC (Bld) [#/Vol] 5.97 10*3/uL Normal 3.70-11.00 [facility] Comment on above: Order Comment: Speci men Type: BLOOD SPECIMENOrdering Facility: [facility] Address: [address] [place] [address] Performed By: #### 5 7021-8 ####[facility] LABIA [id number] [place] [address] [place] CNCNPATEDon 07-17-[address] [facility] CNOVon 07-17-[address] [facility] CONFIRM BLOOD TYPEon [address] [facility] Comment on above: Order Comment: Speci men Type: BLOOD SPECIMENOrdering Facility: [facility] Address: [address] [place] [address] Performed By: #### C ONABO ####[facility] BANKCLIA [id number] [place] [address] [place] Rh Nom (Bld) Positive Normal [facility] Comment on above: Order Comment: Speci men Type: BLOOD SPECIMENOrdering Facility: [facility] Address: [address] [place] [address] Performed By: #### C ONABO ####[facility] BLOOD BANKCLIA [id number] [place] [address] [place] Comprehensive metabolic 2000 panelon 07-17-2023 Albumin [Mass/Vol] 4.1 g/dL Normal 3.9-4.9 [facility] Comment on above: Order Comment: Speci men Type: BLOOD SPECIMENOrdering Facility: [facility] Address: [address] [place] [address] Performed By: #### 2 532-0, 42295-8 ####[facility] LABCLIA [id number] [place] [address] [place] ALP [Catalytic activity/Vol] 86 U/L Normal 34-123 [facility] Comment on above: Order Comment: Speci men Type: BLOOD SPECIMENOrdering Facility: [facility] Address: [address] [place] [address] Performed By: #### 2 532-0, 36369-9 ####[facility] LABCLIA [id number] [place] [address] [place] ALT [Catalytic activity/Vol] 11 U/L Normal 7-38 [facility] Comment on above: Order Comment: Speci men Type: BLOOD SPECIMENOrdering Facility: [facility] Address: [address] [place] [address] Performed By: #### 2 532-0, 54393-4 ####[facility] LABCLIA [id number] [place] [address] [place] Anion gap [Moles/Vol] 14 mmol/L Normal 9-18 [facility] Comment on above: Order Comment: Speci men Type: BLOOD SPECIMENOrdering Facility: [facility] Address: [address] [place] [address] Performed By: #### 2 532-0, 06276-4 ####[facility] LABCLIA [id number] [place] [address] [place] AST [Catalytic activity/Vol] 11 U/L Low 13-35 [facility] Comment on above: Order Comment: Speci men Type: BLOOD SPECIMENOrdering Facility: [facility] Address: [address] [place] [address] Performed By: #### 2 532-0, 05340-1 ####[facility] LABCLIA [id number] [place] [address] [place] Bilirubin [Mass/Vol] 0.2 mg/dL Normal 0.2-1.3 [facility] Comment on above: Order Comment: Speci men Type: BLOOD SPECIMENOrdering Facility: [facility] Address: [address] [place] [address] Performed By: #### 2 532-0, 92684-0 ####[facility] LABCLIA [id number] [place] [address] [place] Calcium [Mass/Vol] 9.9 mg/dL Normal 8.5-10.2 [facility] Comment on above: Order Comment: Speci men Type: BLOOD SPECIMENOrdering Facility: [facility] Address: [address] [place] [address] Performed By: #### 2 532-0, 80214-7 ####[facility] LABCLIA [id number] [place] [address] [place] Chloride [Moles/Vol] 102 mmol/L Normal 97-105 [facility] Comment on above: Order Comment: Speci men Type: BLOOD SPECIMENOrdering Facility: [facility] Address: [address] [place] [address] Performed By: #### 2 532-0, 21874-7 ####[facility] LABCLIA [id number] [place] [address] [place] CO2 [Moles/Vol] 23 mmol/L Normal 22-30 [facility] Comment on above: Order Comment: Speci men Type: BLOOD SPECIMENOrdering Facility: [facility] Address: [address] [place] [address] Performed By: #### 2 532-0, 37222-2 ####[facility] LABCLIA [id number] [place] [address] [place] Creatinine [Mass/Vol] 1.01 mg/dL High 0.58-0.96 [facility] Comment on above: Order Comment: Speci men Type: BLOOD SPECIMENOrdering Facility: [facility] Address: [address] [place] [address] Performed By: #### 2 532-0, 28664-2 ####[facility] LABIA [id number] [address] STATES OF [facility] Creatinine and Glomerular filtration rate.predicted panel (S/P/Bld) 62 mL/min/1.73m??? Normal >=60 [facility] Comment on above: Order Comment: Speci men Type: BLOOD SPECIMENOrdering Facility: [facility] Address: [address] [place] [address] Result Comment: Annelise mated Glomerular Filtration Rate [...] actual GFR. Performed By: #### 2 532-0, 04575-3 ####[facility] LABCLIA [id number] [place] [address] [place] Glucose [Mass/Vol] 140 mg/dL High 74-99 [facility] Comment on above: Order Comment: Speci men Type: BLOOD SPECIMENOrdering Facility: [facility] Address: [address] [place] [address] Result Comment: The [place] Diabetes Association (ADA) provides guidance for cutoff [...] Standards of Medical Care in Diabetes 2016, [place] [employer] Association. Diabetes Care. 2016.39(Suppl 1). Performed By: #### 2 532-0, 34637-4 ####[facility] LABIA [id number] [place] [address] [place] Potassium [Moles/Vol] 4.9 mmol/L Normal 3.7-5.1 [facility] Comment on above: Order Comment: Speci men Type: BLOOD SPECIMENOrdering Facility: [facility] Address: [address] [place] [address] Performed By: #### 2 532-0, 87593-3 ####[facility] LABIA [id number] [place] [address] [place] Protein [Mass/Vol] 6.0 g/dL Low 6.3-8.0 [facility] Comment on above: Order Comment: Speci men Type: BLOOD SPECIMENOrdering Facility: [facility] Address: [address] [place] [address] Performed By: #### 2 532-0, 01314-2 ####[facility] LABCLIA [id number] [place] [address] [place] Sodium [Moles/Vol] 139 mmol/L Normal 136-144 [facility] Comment on above: Order Comment: Speci men Type: BLOOD SPECIMENOrdering Facility: [facility] Address: [address] [place] [address] Performed By: #### 2 532-0, 07653-0 ####[facility] [id number] [place] [address] [place] Urea nitrogen [Mass/Vol] 21 mg/dL Normal 7-21 [facility] Comment on above: Order Comment: Sybili men Type: BLOOD SPECIMENOrdering Facility: [facility] Address: [address] [place] [address] Performed By: #### 2 532-0, 55247-1 ####[facility] [id number] [place] [address] [place] HbA1c (Bld)on 07-17-2023 Average glucose Estimated from glycated hemoglobin (Bld) [Mass/Vol] 148 mg/dL Normal [facility] Comment on above: Order Comment: Sybili men Type: BLOOD SPECIMENOrdering Facility: [facility] Address: [address] [place] [address] Result Comment: eAG: (Estimated average glucose) is a calculated value from HgbA1c and is used equipment sales representative of the average blood glucose level in the last 2-3 month period. Performed By: #### 5 5454-3 ####[facility] [id number] [place] [address] [place] HbA1c (Bld) [Mass fraction] 6.8 % High 4.3-5.6 [facility] Comment on above: Order Comment: Sybili men Type: BLOOD SPECIMENOrdering Facility: [facility] Address: [address] [place] [address] Result Comment: [place] Diabetes Association guidelines indicate that patients with HgbA1c in the range 5.7-6.4% are at increased risk for development of diabetes, and intervention by lifestyle modification may be beneficial. HgbA1c greater or equal to 6.5% is considered diagnostic of diabetes. Performed By: #### 5 5454-3 ####[facility] LABCLIA [id number] [place] [address] [place] LDH SerPl-cCncon 07-17-2023 LDH [Catalytic activity/Vol] 146 U/L Normal 135-214 [facility] Comment on above: Order Comment: Specmarko men Type: BLOOD SPECIMENOrdering Facility: [facility] Address: [address] [place] [address] Performed By: #### 2 532-0, 63916-2 ####[facility] LABCLIA [id number] [place] [address] [place] PT panel Coag (PPP)on 2023 INR Coag (PPP) [Relative time] 1.1 {INR} Normal 0.9-1.3 [facility] Comment on above: Order Comment: Phyllis stein Type: BLOOD SPECIMENOrdering Facility: [facility] Address: [address] [place] [address] Result Comment: Suzanne min K Antagonist (VKA) Therapeutic Range: INR 2 to 3 (Target INR of 2.5)Note: For patients treated with VKA drugs, such as warfarin, the [employer] 2012 Guideline recommends [...] al. Chest 2012, 141:[id number]-[id number] RA, et al. [facility] 2017, 70: 252-289 Performed By: #### 3 4528-0, 58431-0 ####[facility] LABCLIA [id number] [place] [address] [place] PT Coag (PPP) [Time] 11.2 s Normal 9.7-13.0 [facility] Comment on above: Order Comment: Speci men Type: BLOOD SPECIMENOrdering Facility: [facility] Address: [address] [place] [address] Performed By: #### 3 4528-0, 75055-6 ####[facility] LABCLIA [id number] [place] [address] [facility] OF [place] STAPH AUREUS PCRon S. aureus and MRSA panel WALKER+probe (Nose) Normal Negative [facility] Comment on above: Order Comment: Speci men Type: SWAB OF INTERNAL NOSEOrdering Facility: [facility] Address: [address] [place] [address] Result Comment: Nega tive for Staphylococcus aureus by PCR.Negative for MRSA by PCR Performed By: #### S APCR ####[facility] LABCLIA [id number] [address] [place] TYPE AND SCREEN,30 DAYon ABO B Normal [facility] Comment on above: Order Comment: Speci men Type: BLOOD SPECIMENOrdering Facility: [facility] Address: [address] [place] [address] Performed By: #### T SCR30 ####[facility] BLOOD BANKCLIA [id number] [place] [address] [place] HISTORICAL AB SCR STATUS Negative Normal [facility] Comment on above: Order Comment: Speci men Type: BLOOD SPECIMENOrdering Facility: [facility] Address: [address] [place] [address] Performed By: #### T SCR30 ####[facility] BLOOD BANKCLIA [id number] [place] [address] [place] Rh Nom (Bld) Positive Normal [facility] Comment on above: Order Comment: Speci men Type: BLOOD SPECIMENOrdering Facility: [facility] Address: [address] [place] [address] Performed By: #### T SCR30 ####[facility] BLOOD [facility] [id number] [place] [address] [place] URINALYSIS, DIPSTICK ONLYon 07-17-2023 Bilirubin Ql (U) Negative Normal Negative [place] Comment on above: Order Comment: Speci men Type: URINE SPECIMENOrdering Facility: [facility] Address: [address] [place] [address] Performed By: #### U A ####[facility] LABCLIA [id number] [place] [address] [place] Clarity (Unsp spec) Clear Normal Clear [facility] Comment on above: Order Comment: Speci men Type: URINE SPECIMENOrdering Facility: [facility] Address: [address] [place] [address] Performed By: #### U A ####[facility] LABIA [id number] [place] [address] [place] Color (U) Yellow Normal Yellow [facility] Comment on above: Order Comment: Speci men Type: URINE SPECIMENOrdering Facility: [facility] Address: [address] [place] [address] Performed By: #### U A ####[facility] LABCLIA [id number] [place] [address] [place] Glucose Test strip (U) [Mass/Vol] 3+ Abnormal Negative [facility] Comment on above: Order Comment: Speci men Type: URINE SPECIMENOrdering Facility: [facility] Address: [address] [place] [address] Performed By: #### U A ####[facility] LABCLIA [id number] [place] [address] [place] Hemoglobin Ql (U) Negative Normal Negative [facility] Comment on above: Order Comment: Speci men Type: URINE SPECIMENOrdering Facility: [facility] Address: [address] [place] [address] Performed By: #### U A ####[facility] LABCLIA [id number] [place] [address] [place] Ketones Ql (U) Negative Normal Negative [facility] Comment on above: Order Comment: Speci men Type: URINE SPECIMENOrdering Facility: [facility] Address: [address] [place] [address] Performed By: #### U A ####[facility] LABCLIA [id number] [place] [address] [place] Leukocyte esterase Test strip Ql (U) Negative Normal Negative [facility] Comment on above: Order Comment: Speci men Type: URINE SPECIMENOrdering Facility: [facility] Address: [address] [place] [address] Performed By: #### U A ####[facility] LABCLIA [id number] [place] [address] [place] Nitrite Ql (U) Negative Normal Negative [facility] Comment on above: Order Comment: Speci men Type: URINE SPECIMENOrdering Facility: [facility] Address: [address] [place] [address] Performed By: #### U A ####[facility] LABCLIA [id number] [place] [address] [place] pH (U) 6.0 [pH] Normal <8.5 [facility] Comment on above: Order Comment: Speci men Type: URINE SPECIMENOrdering Facility: [facility] Address: [address] [place] [address] Performed By: #### U A ####[facility] LABCLIA [id number] [place] [address] [place] Protein (U) [Mass/Vol] Negative Normal Negative Cl [facility] Comment on above: Order Comment: Speci men Type: URINE SPECIMENOrdering Facility: [facility] Address: [address] [place] [address] Performed By: #### U A ####[facility] LABIA [id number] [place] [address] [place] Specific gravity (U) [Rel density] 1.026 Normal 1.005-1.030 [facility] Comment on above: Order Comment: Speci men Type: URINE SPECIMENOrdering Facility: [facility] Address: [address] [place] [address] Performed By: #### U A ####[facility] [id number] [place] [address] [place] Urobilinogen Ql (U) 1.0 EU/dL Normal 0.2-1.0 EU/dL [facility] Comment on above: Order Comment: Speci men Type: URINE SPECIMENOrdering Facility: [facility] Address: [address] [place] [address] Performed By: #### U A ####[facility] LABR[facility] [id number] [place] [address] [place] aPTT PPPon 07-17-2023 aPTT Coag (PPP) [Time] 31.3 s Normal 23.0-32.4 [facility] Comment on above: Order Comment: Speci men Type: BLOOD SPECIMENOrdering Facility: [facility] Address: [address] [place] [address] Performed By: #### 3 4528-0, 22963-0 ####[facility] LABIA [id number] [place] [address] [place] CNPNon 07-11-[address] [facility] CNOVon 07-02-[address] [facility] CNOV Normal [facility] CNOV Normal [facility] CTA ABD/PEL/LOWER EXT WO/W I VCONon 07-02-2023 CTA ABD/PEL/LOWER EXT WO/W IVCON Normal [facility] CTA CHEST (NONGATED) W IVCON on 07-02-2023 CTA CHEST (NONGATED) W IVCON Normal [facility] ECG COMPLETEon 07-02-[address] [facility] CNPTOUTREACHon 06-27-[address] [facility] CNPNon 06-26-[address] [facility] CNPTOUTREACHon 06-21-[address] [facility] CNOVon 06-14-[address] [facility] CT CHEST CARDIAC WO IVCONon 06-14-2023 CT CHEST CARDIAC WO IVCON Invalid Interpretation Code [facility] PVR LEG LOVE VAS LABon 2022 PVR LEG LOVE VAS LAB Normal [facility] US CAROTID ARTERIES LOVE VAS LABon 06-14-2023 US CAROTID ARTERIES LOVE VAS LAB Normal [facility] US LEG VEIN MAP LOVE VAS LABo n 06-14-2023 US LEG VEIN MAP LOVE VAS LAB Normal [facility] US MAMMARY ARTERY LOVE VAS LA Bon 06-14-2023 US MAMMARY ARTERY LOVE VAS LAB Normal [facility] US RADIAL ARTERY MAP LOVE VAS LABon 06-14-2023 US RADIAL ARTERY MAP LOVE VAS LAB Normal [facility] Reminderson 06-10-2023 Reminders - From: Celia Donohue LPN To: GSN - Clinical; Sent: 06/10/2023 15:55:47 EST Show up: 04/10/2025 07:00:00 EDT Subject: colonoscopy recall Due Date/Time: 05/11/2025 07:00:00 EST Reminder/Recall Patient due for surveillance colonoscopy 05/11/2025. Normal [facility] CNPNon 05-30-[address] [facility] Comprehensive metabolic 2000 panelon 05-29-2023 Albumin [Mass/Vol] 4.2 g/dL 3.9 - 4.9 g/dL [facility] ALP [Catalytic activity/Vol] 78 U/L 34 - 123 U/L [facility] ALT [Catalytic activity/Vol] 17 U/L 7 - 38 U/L [facility] Anion gap [Moles/Vol] 15 mmol/L 9 - 18 mmol/L [facility] AST [Catalytic activity/Vol] 16 U/L 13 - 35 U/L [facility] Bilirubin [Mass/Vol] 0.2 mg/dL 0.2 - 1 .3 mg/dL [facility] Calcium [Mass/Vol] 10.5 mg/dL High 8.5 - 10. 2 mg/dL [facility] Chloride [Moles/Vol] 100 mmol/L 97 - 10 5 mmol/L [facility] CO2 [Moles/Vol] 21 mmol/L Low 22 - 30 mmol/L [facility] Creatinine [Mass/Vol] 0.82 mg/dL 0.58 - 0.96 mg/dL [facility] Estimated Glomerular Filtration Rate 79 mL/min/1.73m >=60 mL/min/1.73m [facility] Glucose [Mass/Vol] 216 mg/dL High 74 - 99 mg/dL [facility] Potassium [Moles/Vol] 4.8 mmol/L 3.7 - 5.1 mmol/L [facility] Protein [Mass/Vol] 6.7 g/dL 6.3 - 8.0 g/dL [facility] Sodium [Moles/Vol] 136 mmol/L 136 - 144 mmol/L [facility] Urea nitrogen [Mass/Vol] 22 mg/dL High 7 - 21 mg/dL [facility] LIPID PANEL, NONFASTINGon Cholesterol [Mass/Vol] 220 mg/dL High <200 mg/dL [facility] HDL Cholesterol, Nonfasting 35 mg/dL Low >39 mg/dL [facility] LDL Cholesterol, Nonfasting [facility] LDL/HDL Ratio, Nonfasting [facility] Non HDL Cholesterol, Nonfasting 185 mg/dL High <130 mg/dL [facility] Total Chol/HDL Ratio, Nonfasting 6.29 mg/dL High <5.10 mg/dL [facility] Triglycerides, Nonfasting 414 mg/dL High <150 mg/dL [facility] VLDL Cholesterol, Nonfasting [facility] CBC panel Auto (Bld)on 05-28 Erythrocyte distribution width (RBC) [Ratio] 13.5 % 11.5 - 15.0 % [facility] Hematocrit (Bld) [Volume fraction] 47.6 % High 36.0 - 46.0 % [facility] Hemoglobin (Bld) [Mass/Vol] 15.6 g/dL High 11.5 - 15.5 g/dL [facility] MCH (RBC) [Entitic mass] 31.1 pg 26.0 - 34.0 pg [facility] MCHC (RBC) [Mass/Vol] 32.8 g/dL 30.5 - 36.0 g/dL [facility] MCV (RBC) [Entitic vol] 94.8 fL 80.0 - 100.0 fL [facility] Nucleated RBC (Bld) [#/Vol] <0.01 k/uL [facility] Platelet mean volume (Bld) [Entitic vol] 9.9 fL 9.0 - 12.7 fL [facility] Platelets (Bld) [#/Vol] 295 10*3/uL 150 - 400 k/uL [facility] RBC (Bld) [#/Vol] 5.02 10*6/uL 3.90 - 5.2 0 m/uL [facility] WBC (Bld) [#/Vol] 8.12 10*3/uL 3.70 - 11. 00 k/uL [facility] Erythrocyte distribution width (RBC) [Ratio] 13.5 % Normal 11.5-15.0 [facility] Comment on above: Order Comment: Speci men Type: BLOOD SPECIMENOrdering Facility: [facility] Address: [address] [place] [address] Performed By: #### 5 8410-2 ####[facility] LABCLIA [id number] [place] [address] [place] Hematocrit (Bld) [Volume fraction] 47.6 % High 36.0-46.0 [facility] Comment on above: Order Comment: Speci men Type: BLOOD SPECIMENOrdering Facility: [facility] Address: [address] [place] [address] Performed By: #### 5 8410-2 ####[facility] LABCLIA [id number] [place] [address] [place] Hemoglobin (Bld) [Mass/Vol] 15.6 g/dL High 11.5-15.5 [facility] Comment on above: Order Comment: Speci men Type: BLOOD SPECIMENOrdering Facility: [facility] Address: [address] [place] [address] Performed By: #### 5 8410-2 ####[facility] LABCLIA [id number] [place] [address] [place] MCH (RBC) [Entitic mass] 31.1 pg Normal 26.0-34.0 [facility] Comment on above: Order Comment: Speci men Type: BLOOD SPECIMENOrdering Facility: [facility] Address: [address] [place] [address] Performed By: #### 5 8410-2 ####[facility] LABCLIA [id number] [place] [address] [place] MCHC (RBC) [Mass/Vol] 32.8 g/dL Normal 30.5-36.0 [facility] Comment on above: Order Comment: Speci men Type: BLOOD SPECIMENOrdering Facility: [facility] Address: [address] [place] [address] Performed By: #### 5 8410-2 ####[facility] LABIA [id number] [place] [address] [place] MCV (RBC) [Entitic vol] 94.8 fL Normal 80.0-100.0 [facility] Comment on above: Order Comment: Speci men Type: BLOOD SPECIMENOrdering Facility: [facility] Address: [address] [place] [address] Performed By: #### 5 8410-2 ####[facility] LABCLIA [id number] [place] [address] [place] Nucleated RBC (Bld) [#/Vol] 10*3/uL Normal <0.01 [facility] Comment on above: Order Comment: Speci men Type: BLOOD SPECIMENOrdering Facility: [facility] Address: [address] [place] [address] Performed By: #### 5 8410-2 ####[facility] LABIA [id number] [place] [address] [place] Platelet mean volume (Bld) [Entitic vol] 9.9 fL Normal 9.0-12.7 [facility] Comment on above: Order Comment: Speci men Type: BLOOD SPECIMENOrdering Facility: [facility] Address: [address] [place] [address] Performed By: #### 5 8410-2 ####[facility] LABIA [id number] [place] [address] [place] Platelets (Bld) [#/Vol] 295 10*3/uL Normal 150-400 [facility] Comment on above: Order Comment: Speci men Type: BLOOD SPECIMENOrdering Facility: [facility] Address: [address] [place] [address] Performed By: #### 5 8410-2 ####[facility] LABIA [id number] [place] [address] [place] RBC (Bld) [#/Vol] 5.02 10*6/uL Normal 3.90-5.20 [facility] Comment on above: Order Comment: Speci men Type: BLOOD SPECIMENOrdering Facility: [facility] Address: [address] [place] [address] Performed By: #### 5 8410-2 ####[facility] LABIA [id number] [place] [address] [place] WBC (Bld) [#/Vol] 8.12 10*3/uL Normal 3.70-11.00 [facility] Comment on above: Order Comment: Speci men Type: BLOOD SPECIMENOrdering Facility: [facility] Address: [address] [place] [address] Performed By: #### 5 8410-2 ####[facility] LABCLIA [id number] [address] [address] [place] CNOVon 05-28-[address] [facility] Comprehensive metabolic 2000 panelon 05-28-2023 Albumin [Mass/Vol] 4.2 g/dL Normal 3.9-4.9 [facility] Comment on above: Order Comment: Speci men Type: BLOOD SPECIMENOrdering Facility: [facility] Address: [address] [place] [address] Performed By: #### 3 3762-6, 27633-6, LIPNF ####[facility] LABIA [id number] [place] [address] [place] ALP [Catalytic activity/Vol] 78 U/L Normal 34-123 [facility] Comment on above: Order Comment: Speci men Type: BLOOD SPECIMENOrdering Facility: [facility] Address: [address] [place] [address] Performed By: #### 3 3762-6, 27887-0, LIPNF ####[facility] LABIA [id number] [place] [address] [place] ALT [Catalytic activity/Vol] 17 U/L Normal 7-38 [facility] Comment on above: Order Comment: Speci men Type: BLOOD SPECIMENOrdering Facility: [facility] Address: [address] [place] [address] Performed By: #### 3 3762-6, 42608-7, LIPNF ####[facility] LABIA [id number] [place] [id number] [place] Anion gap [Moles/Vol] 15 mmol/L Normal 9-18 [facility] Comment on above: Order Comment: Speci men Type: BLOOD SPECIMENOrdering Facility: [facility] Address: [address] [place] [address] Performed By: #### 3 3762-, 95991-4, LIPNF ####[facility] LABCLIA [id number] [place] [address] [place] AST [Catalytic activity/Vol] 16 U/L Normal 13-35 [facility] Comment on above: Order Comment: Speci men Type: BLOOD SPECIMENOrdering Facility: [facility] Address: [address] [place] [address] Performed By: #### 3 376-6, , LIPNF ####[facility] LABCLIA [id number] [place] [address] [place] Bilirubin [Mass/Vol] 0.2 mg/dL Normal 0.2-1.3 [facility] Comment on above: Order Comment: Speci men Type: BLOOD SPECIMENOrdering Facility: [facility] Address: [address] [place] [address] Performed By: #### 3 376-6, , LIPNF ####[facility] LABIA [id number] [place] [address] [place] Calcium [Mass/Vol] 10.5 mg/dL High 8.5-10.2 [facility] Comment on above: Order Comment: Speci men Type: BLOOD SPECIMENOrdering Facility: [facility] Address: [address] [place] [address] Performed By: #### 3 376-6, , LIPNF ####[facility] LABIA [id number] [place] [address] [place] Chloride [Moles/Vol] 100 mmol/L Normal 97-105 [facility] Comment on above: Order Comment: Speci men Type: BLOOD SPECIMENOrdering Facility: [facility] Address: [address] [place] [address] Performed By: #### 3 3762-6, , LIPNF ####[facility] LABIA [id number] [place] [address] [place] CO2 [Moles/Vol] 21 mmol/L Low 22-30 [facility] Comment on above: Order Comment: Speci men Type: BLOOD SPECIMENOrdering Facility: [facility] Address: [address] [place] [address] Performed By: #### 3 3762-6, 77005-0, LIPNF ####[facility] LABCLIA [id number] [place] [address] [place] Creatinine [Mass/Vol] 0.82 mg/dL Normal 0.58-0.96 [facility] Comment on above: Order Comment: Speci men Type: BLOOD SPECIMENOrdering Facility: [facility] Address: [address] [place] [address] Performed By: #### 3 3762-6, 41577-7, LIPNF ####[facility] LABCLIA [id number] [place] [address] [place] Creatinine and Glomerular filtration rate.predicted panel (S/P/Bld) 79 mL/min/1.73m??? Normal >=60 [facility] Comment on above: Order Comment: Speci men Type: BLOOD SPECIMENOrdering Facility: [facility] Address: [address] [place] [address] Result Comment: Annelise mated Glomerular Filtration Rate [...] actual GFR. Performed By: #### 3 3762-6, 97275-9, LIPNF ####[facility] LABCLIA [id number] [place] [address] [place] Glucose [Mass/Vol] 216 mg/dL High 74-99 [facility] Comment on above: Order Comment: Speci men Type: BLOOD SPECIMENOrdering Facility: [facility] Address: [address] [place] [address] Result Comment: The [place] Diabetes Association (ADA) provides guidance for cutoff [...] Standards of Medical Care in Diabetes 2016, [place] [employer]. Diabetes Care. 2016.39(Suppl 1). Performed By: #### 3 3762-6, 07895-4, LIPNF ####[facility] LABCLIA [id number] [place] [address] [place] Potassium [Moles/Vol] 4.8 mmol/L Normal 3.7-5.1 [facility] Comment on above: Order Comment: Speci men Type: BLOOD SPECIMENOrdering Facility: [facility] Address: [address] [place] [address] Performed By: #### 3 3762-6, 24928-8, LIPNF ####[facility] LABCLIA [id number] [place] [address] [place] Protein [Mass/Vol] 6.7 g/dL Normal 6.3-8.0 [facility] Comment on above: Order Comment: Speci men Type: BLOOD SPECIMENOrdering Facility: [facility] Address: [address] [place] [address] Performed By: #### 3 3762-6, 35345-4, LIPNF ####[facility] LABCLIA [id number] [place] [address] [place] Sodium [Moles/Vol] 136 mmol/L Normal 136-144 [facility] Comment on above: Order Comment: Speci men Type: BLOOD SPECIMENOrdering Facility: [facility] Address: [address] [place] [address] Performed By: #### 3 3762-6, , LIPNF ####[facility] LABCLIA [id number] [place] [address] [place] Urea nitrogen [Mass/Vol] 22 mg/dL High 7- [facility] Comment on above: Order Comment: Speci men Type: BLOOD SPECIMENOrdering Facility: [facility] Address: [address] [place] [address] Performed By: #### 3 3762-6, , LIPNF ####[facility] LABCLIA [id number] [place] [address] [place] LIPID PANEL, NONFASTINGon Cholesterol [Mass/Vol] 220 mg/dL High <200 [facility] Comment on above: Order Comment: Speci men Type: BLOOD SPECIMENOrdering Facility: [facility] Address: [address] [place] [address] Result Comment: <200 mg/dL, Desirable 200-239 mg/dL, Borderline high>239 mg/dL, High Performed By: #### 3 376-6, , LIPNF ####[facility] LABCLIA [id number] [place] [address] [place] HDL CHOLESTEROL, NF 35 mg/dL Low >39 [facility] Comment on above: Order Comment: Speci men Type: BLOOD SPECIMENOrdering Facility: [facility] Address: [address] [place] [address] Result Comment: 40-5 9 mg/dL, Acceptable>59 mg/dL, High: Negative risk factor for coronary heart disease<40 mg/dL, Low: Positive risk factor for coronary heart disease Performed By: #### 3 3762-6, 53957-2, LIPNF ####[facility] LABCLIA [id number] [place] [address] [place] LDL CHOLESTEROL, NF Normal [facility] Comment on above: Order Comment: Speci sarita Type: BLOOD SPECIMENOrdering Facility: [facility] Address: [address] [place] [address] Result Comment: Unab le to calculate due to increased Triglycerides. A Direct LDL Cholesterol measurement will not be performed. If clinically indicated, a fasting Basic Lipid Panel (LIPB) may be ordered. Performed By: #### 3 3762-6, 51275-2, LIPNF ####[facility] LABCLIA [id number] [address] STATES OF [facility] LDL/HDL RATIO, NF Normal [facility] Comment on above: Order Comment: Sybili sarita Type: BLOOD SPECIMENOrdering Facility: [facility] Address: [address] [place] [address] Result Comment: Unab le to calculate due to elevated Triglycerides.Reference:1. National Cholesterol Education Program ATP III Guideline At-A-Glance Quick Desk Reference: National Heart, Lung, and Blood Gila. National Institutes of Health. 2001: NIH Publication No. 01-3305.2. An International Atherosclerosis Society position paper: global recommendations for the management of dyslipidemia: executive summary, Atherosclerosis. 2014: 232(2):410-413. Performed By: #### 3 3762-6, 83812-7, LIPNF ####[facility] LABCLIA [id number] [address] [place] NON HDL CHOL, NF 185 mg/dL High <130 [place] Comment on above: Order Comment: Phyllis stein Type: BLOOD SPECIMENOrdering Facility: [facility] Address: [address] [place] [address] Result Comment: <130 mg/dL, Optimal 130-159 mg/dL, Near optimal/above optimal 160-189 mg/dL, Borderline high 190-219 mg/dL, High>219 mg/dL, Very highSecondary prevention optimal non HDL Cholesterol levels are recommended to be <100 mg/dL Performed By: #### 3 3762-6, 95210-5, LIPNF ####[facility] LABCLIA [id number] [place] [address] [place] T CHOL/HDL RATIO NF 6.29 mg/dL High <5.10 [facility] Comment on above: Order Comment: Speci men Type: BLOOD SPECIMENOrdering Facility: [facility] Address: [address] [place] [address] Performed By: #### 3 3762-6, 84224-6, LIPNF ####[facility] LABCLIA [id number] [place] [address] [place] TRIGLYCERIDES, NF 414 mg/dL High <150 [facility] Comment on above: Order Comment: Speci men Type: BLOOD SPECIMENOrdering Facility: [facility] Address: [address] [place] [address] Result Comment: <150 mg/dL, Normal 150-199 mg/dL, Borderline high 200-499 mg/dL, High>499 mg/dL, Very high Performed By: #### 3 3762-6, 07077-9, LIPNF ####[facility] LABIA [id number] [place] [address] [place] VLDL CHOLESTEROL, NF Normal [facility] Comment on above: Order Comment: Speci men Type: BLOOD SPECIMENOrdering Facility: [facility] Address: [address] [place] [address] Result Comment: Unab le to calculate due to elevated Triglycerides. Performed By: #### 3 3762-6, 73658-2, LIPNF ####[facility] LABCLIA [id number] [place] [address] [place] NT PRO BNPon 05-28-2023 Natriuretic peptide.B prohormone N-Terminal [Mass/Vol] 200 pg/mL High <125 pg/mL [facility] NT-proBNP SerPl-mCncon 05-28 Natriuretic peptide.B prohormone N-Terminal [Mass/Vol] 200 pg/mL High <125 [facility] Comment on above: Order Comment: Speci men Type: BLOOD SPECIMENOrdering Facility: [facility] Address: [address] [place] [address] Performed By: #### 3 3762-6, 02127-0, LIPUGO ####[facility] LABCLIA [id number] [place] [address] [place] CNPNon 05-08-[address] [facility] CNPNon 05-02-[address] [facility] CBC panel Auto (Bld)on 04-03 Erythrocyte distribution width (RBC) [Ratio] 13.0 % 11.5 - 15.0 % [facility] Hematocrit (Bld) [Volume fraction] 53.9 % High 36.0 - 46.0 % [facility] Hemoglobin (Bld) [Mass/Vol] 18.6 g/dL High 11.5 - 15.5 g/dL [facility] MCH (RBC) [Entitic mass] 29.8 pg 26.0 - 34.0 pg [facility] MCHC (RBC) [Mass/Vol] 34.5 g/dL 30.5 - 36.0 g/dL [facility] MCV (RBC) [Entitic vol] 86.2 fL 80.0 - 100.0 fL [facility] Nucleated RBC (Bld) [#/Vol] <0.01 k/uL [facility] Platelet mean volume (Bld) [Entitic vol] 9.6 fL 9.0 - 12.7 fL [facility] Platelets (Bld) [#/Vol] 269 10*3/uL 150 - 400 k/uL [facility] RBC (Bld) [#/Vol] 6.25 10*6/uL High 3.90 - 5.2 0 m/uL [facility] WBC (Bld) [#/Vol] 10.50 10*3/uL 3.70 - 11 .00 k/uL [facility] Comprehensive metabolic 2000 panelon 04-03-2023 Albumin [Mass/Vol] 4.6 g/dL 3.9 - 4.9 g/dL [facility] ALP [Catalytic activity/Vol] 82 U/L 34 - 123 U/L [facility] ALT [Catalytic activity/Vol] 15 U/L 7 - 38 U/L [facility] Anion gap [Moles/Vol] 19 mmol/L High 9 - 18 mmol/L [facility] AST [Catalytic activity/Vol] 14 U/L 13 - 35 U/L [facility] Bilirubin [Mass/Vol] 0.9 mg/dL 0.2 - 1 .3 mg/dL [facility] Calcium [Mass/Vol] 10.5 mg/dL High 8.5 - 10. 2 mg/dL [facility] Chloride [Moles/Vol] 94 mmol/L Low 97 - 10 5 mmol/L [facility] CO2 [Moles/Vol] 18 mmol/L Low 22 - 30 mmol/L [facility] Creatinine [Mass/Vol] 0.81 mg/dL 0.58 - 0.96 mg/dL [facility] Estimated Glomerular Filtration Rate 81 mL/min/1.73m >=60 mL/min/1.73m [facility] Glucose [Mass/Vol] 241 mg/dL High 74 - 99 mg/dL [facility] Potassium [Moles/Vol] 4.2 mmol/L 3.7 - 5.1 mmol/L [facility] Protein [Mass/Vol] 7.5 g/dL 6.3 - 8.0 g/dL [facility] Sodium [Moles/Vol] 131 mmol/L Low 136 - 144 mmol/L [facility] Urea nitrogen [Mass/Vol] 20 mg/dL 7 - 21 mg/dL [facility] HbA1c (Bld)on 04-03-2023 Average glucose Estimated from glycated hemoglobin (Bld) [Mass/Vol] 163 mg/dL [facility] HbA1c (Bld) [Mass fraction] 7.3 % High 4.3 - 5.6 % [facility] PT panel Coag (PPP)on 2022 INR Coag (PPP) [Relative time] 1.1 {INR} 0.9 - 1.3 [facility] PT Coag (PPP) [Time] 11.4 s 9.7 - 1 3.0 sec [facility] Activated partial thrombopla stin time (aPTT) in platelet poor plasma by coagulation aOrdered By: Patrizia Melendrez on 03-20-2023 aPTT Coag (PPP) [Time] 28.8 s 25.1-36.5 [facility] Comment on above: A hematocrit value g reater than 55% may lead to inaccurate results in coagulation testing. Patients having hematocrit values >55% require a special collection tube for coagulation studies. Please contact the laboratory at [phone] for redraw instructions. Basophils Auto (Bld) [#/Vol] Ordered By: Patrizia Melendrez on 03-20-2023 Basophils (Bld) [#/Vol] 0.0 10*3/uL 0.0-0.2 [facility] Basophils/100 WBC Auto (Bld) Ordered By: Patrizia Melendrez on 03-20-2023 Basophils/100 WBC (Bld) 0.4 % . [facility] Blood Urea Nitrogenon 2022 Urea nitrogen [Mass/Vol] 21 mg/dL Normal 7-25 [facility] Comment on above: Performed By: #### B UN, CBC, CREAT, PP, LYTES, LIPID #### [facility] [address] Carbon dioxide, total [Moles /volume] in Serum or PlasmaOrdered By: Patrizia Melendrez on 03-20-2023 CO2 [Moles/Vol] 28.8 mmol/L 21.0-31.0 [facility] Chloride [Moles/volume] in S radha or PlasmaOrdered By: Patrizia Melendrez on 03-20-2023 Chloride [Moles/Vol] 105 mmol/L 98-107 [facility] Cholesterol [Mass/volume] in Serum or PlasmaOrdered By: Patrizia Melendrez on 03-20-2023 Cholesterol [Mass/Vol] 270 mg/dL 140-200 [facility] Comment on above: Chol less than 200 m g/dl low riskChol 201-239 mg/dl borderline riskChol 240 mg/dl and greater high risk Cholesterol in LDL Calc [Mas s/Vol]Ordered By: Patrizia Melendrez on 03-20-2023 Cholesterol in LDL [Mass/Vol] 170 mg/dL 0-100 [facility] Comment on above: LDL ATP III CLASSIFI CATIONLDL less than 100 mg/dL OptimalLDL 100-129 mg/dL Near or above optimalLDL 130-159 mg/dL Borderline highLDL 160-189 mg/dL HighLDL greater than 189 mg/dL Very high Cholesterol in VLDL Calc [Ma ss/Vol]Ordered By: Patrizia Melendrez on 03-20-2023 Cholesterol in VLDL [Mass/Vol] 55 mg/dL [facility] Coagulation Profileon 2022 aPTT Coag (Bld) [Time] 28.8 s Normal 25.1-36.5 [facility] Comment on above: Result Comment: A he matocrit value greater than 55% may lead to inaccurate results in coagulation testing. Patients having hematocrit values >55% require a special collection tube for coagulation studies. Please contact the laboratory at [phone] for redraw instructions. PERFORMED BY: [place] [address] [employer] KEVYN DAVIDSON M.D. Performed By: #### B UN, CBC, CREAT, PP, LYTES, LIPID #### [address] INR Coag (PPP) [Relative time] 0.9 {INR} Normal [facility] Comment on above: Result Comment: INR Therapeutic [...] UN, CBC, CREAT, PP, LYTES, LIPID #### [address] PT Coag (PPP) [Time] 11.2 s Normal 9.0-12.9 [facility] Comment on above: Result Comment: A he matocrit value greater than 55% may lead to inaccurate results in coagulation testing. Patients having hematocrit values >55% require a special collection tube for coagulation studies. Please contact the laboratory at [phone] for redraw instructions. Performed By: #### B UN, CBC, CREAT, PP, LYTES, LIPID #### [address] Complete Blood Count Auto Di ffon 03-20-2023 Basophils (Bld) [#/Vol] 0.0 10*3/uL Normal 0.0-0.2 [facility] Comment on above: Result Comment: PERF ORMED BY: [place] [address] [employer] KEVYN DAVIDSON M.D. Performed By: #### B UN, CBC, CREAT, PP, LYTES, LIPID #### [address] Basophils/100 WBC (Bld) 0.4 % Normal . [facility] Comment on above: Performed By: #### B UN, CBC, CREAT, PP, LYTES, LIPID #### [address] Eosinophils (Bld) [#/Vol] 0.3 10*3/uL Normal 0.0-0.45 [facility] Comment on above: Performed By: #### B UN, CBC, CREAT, PP, LYTES, LIPID #### [address] Eosinophils/100 WBC (Bld) 4.1 % Normal . [facility] Comment on above: Performed By: #### B UN, CBC, CREAT, PP, LYTES, LIPID #### [address] Erythrocyte distribution width (RBC) [Ratio] 14.4 % Normal 11.9-15.3 [facility] Comment on above: Performed By: #### B UN, CBC, CREAT, PP, LYTES, LIPID #### [address] Hematocrit (Bld) [Volume fraction] 47.2 % High 34.0-46.4 [facility] Comment on above: Performed By: #### B UN, CBC, CREAT, PP, LYTES, LIPID #### [address] Hemoglobin (Bld) [Mass/Vol] 16.0 g/dL High 11.8-15.4 [facility] Comment on above: Performed By: #### B UN, CBC, CREAT, PP, LYTES, LIPID #### [address] Lymphocytes (Bld) [#/Vol] 2.5 10*3/uL Normal 1.00-4.8 [facility] Comment on above: Performed By: #### B UN, CBC, CREAT, PP, LYTES, LIPID #### [address] Lymphocytes/100 WBC (Bld) 34.2 % Normal . [facility] Comment on above: Performed By: #### B UN, CBC, CREAT, PP, LYTES, LIPID #### [address] MCH (RBC) [Entitic mass] 30.5 pg Normal 24.7-34.3 [facility] Comment on above: Performed By: #### B UN, CBC, CREAT, PP, LYTES, LIPID #### [address] MCV (RBC) [Entitic vol] 89.9 fL Normal 80-100 [facility] Comment on above: Performed By: #### B UN, CBC, CREAT, PP, LYTES, LIPID #### [address] Mean Corpuscular HGB Conc 33.9 g/dL Normal 32.0-35.0 [facility] Comment on above: Performed By: #### B UN, CBC, CREAT, PP, LYTES, LIPID #### [address] Monocytes (Bld) [#/Vol] 0.6 10*3/uL Normal 0.0-0.8 [facility] Comment on above: Performed By: #### B UN, CBC, CREAT, PP, LYTES, LIPID #### [address] Monocytes/100 WBC (Bld) 8.4 % Normal . [facility] Comment on above: Performed By: #### B UN, CBC, CREAT, PP, LYTES, LIPID #### [address] Neutrophils (Bld) [#/Vol] 3.8 10*3/uL Normal 1.8-7.7 [facility] Comment on above: Performed By: #### B UN, CBC, CREAT, PP, LYTES, LIPID #### [address] Neutrophils/100 WBC (Bld) 52.9 % Normal . [facility] Comment on above: Performed By: #### B UN, CBC, CREAT, PP, LYTES, LIPID #### [address] NRBC% 0.1 /100{WBC} Normal 0-0.5 [facility] Comment on above: Performed By: #### B UN, CBC, CREAT, PP, LYTES, LIPID #### [address] Platelet mean volume (Bld) [Entitic vol] 8.0 fL Normal 6.3-10.7 [facility] Comment on above: Performed By: #### B UN, CBC, CREAT, PP, LYTES, LIPID #### [place] [address] [place] Platelets (Bld) [#/Vol] 232 10*3/uL Normal 150-450 [facility] Comment on above: Performed By: #### B UN, CBC, CREAT, PP, LYTES, LIPID #### [place] [address] [place] RBC (Bld) [#/Vol] 5.25 10*6/uL High 3.60-5.00 [facility] Comment on above: Performed By: #### B UN, CBC, CREAT, PP, LYTES, LIPID #### [place] [address] [place] WBC (Bld) [#/Vol] 7.3 10*3/uL Normal 3.8-11.6 [facility] Comment on above: Performed By: #### B UN, CBC, CREAT, PP, LYTES, LIPID #### [facility] [address] Creatinineon 03-20-2023 Creatinine [Mass/Vol] 0.83 mg/dL Normal 0.60-1.20 [facility] Comment on above: Performed By: #### B UN, CBC, CREAT, PP, LYTES, LIPID #### [facility] [address] GFR/1.73 sq M.predicted MDRD (S/P/Bld) [Vol rate/Area] mL/min/{1.73_m2} Normal [facility] Comment on above: Performed By: #### B UN, CBC, CREAT, PP, LYTES, LIPID #### [address] Creatinine [Mass/volume] in Serum or PlasmaOrdered By: Patrizia Melendrez on 03-20-2023 Creatinine [Mass/Vol] 0.83 mg/dL 0.60-1.20 [facility] Electrolyteson 03-20-2023 Anion gap [Moles/Vol] 8.5 mmol/L Normal 6.0-15.0 [facility] Comment on above: Performed By: #### B UN, CBC, CREAT, PP, LYTES, LIPID #### [address] Chloride [Moles/Vol] 105 mmol/L Normal 98-107 [facility] Comment on above: Performed By: #### B UN, CBC, CREAT, PP, LYTES, LIPID #### [facility] [address] CO2 [Moles/Vol] 28.8 mmol/L Normal 21.0-31.0 [facility] Comment on above: Performed By: #### B UN, CBC, CREAT, PP, LYTES, LIPID #### [facility] [address] [place] [address] [place] Potassium [Moles/Vol] 4.3 mmol/L Normal 3.5-5.1 [facility] Comment on above: Performed By: #### B UN, CBC, CREAT, PP, LYTES, LIPID #### [facility] [address] [place] [id number] [facility] Sodium [Moles/Vol] 138 mmol/L Normal 136-145 [facility] Comment on above: Performed By: #### B UN, CBC, CREAT, PP, LYTES, LIPID #### [facility] [address] Eosinophils Auto (Bld) [#/Vo l]Ordered By: Patrizia Melendrez on 03-20-2023 Eosinophils (Bld) [#/Vol] 0.3 10*3/uL 0.0-0.45 [facility] Eosinophils/100 WBC Auto (Bl d)Ordered By: Patrizia Melendrez on 03-20-2023 Eosinophils/100 WBC (Bld) 4.1 % . [facility] Erythrocyte distribution wid th Auto (RBC) [Ratio]Ordered By: Patrizia Melendrez on 03-20-2023 Erythrocyte distribution width (RBC) [Ratio] 14.4 % 11.9-15.3 [facility] Hematocrit Auto (Bld) [Volum e fraction]Ordered By: Patrizia Melendrez on 03-20-2023 Hematocrit (Bld) [Volume fraction] 47.2 % 34.0-46.4 [facility] Hemoglobin [Mass/volume] in BloodOrdered By: Patrizia Melendrez on 03-20-2023 Hemoglobin (Bld) [Mass/Vol] 16.0 g/dL 11.8-15.4 [facility] INR in Platelet poor plasma by Coagulation assayOrdered By: Patrizia Melendrez on 03-20-2023 INR Coag (PPP) [Relative time] 0.9 {INR} [facility] Comment on above: INR Therapeutic Rang e [...] RBC Auto (Bld) [#/Vol] 7.3 10*3/uL 3.8-11.6 [facility] Lipid Panelon 03-20-2023 Cholesterol [Mass/Vol] 270 mg/dL High 140-200 [facility] Comment on above: Result Comment: Chol less than 200 mg/dl low risk Chol 201-239 mg/dl borderline risk Chol 240 mg/dl and greater high risk Performed By: #### B UN, CBC, CREAT, PP, LYTES, LIPID #### [facility] [address] Cholesterol in HDL [Mass/Vol] 45 mg/dL Normal 23-92 [facility] Comment on above: Result Comment: HDL CHOL ATP-III CLASSIFICATION Cardiovascular Risk HDL > or equal to 60 mg/dL LOW HDL < 40 mg/dL HIGH Performed By: #### B UN, CBC, CREAT, PP, LYTES, LIPID #### [facility] [address] Cholesterol.total/Chol esterol in HDL [Mass ratio] 6.0 {ratio} Normal <5.0 [facility] Comment on above: Result Comment: PERF ORMED BY: [place] [address] [employer]NA[employer] KEVYN DAVIDSON M.D. Performed By: #### B UN, CBC, CREAT, PP, LYTES, LIPID #### [facility] [address] LDL Cholesterol,Calculated 170 mg/dL High 0-100 [facility] Comment on above: Result Comment: LDL ATP III CLASSIFICATION LDL less than 100 mg/dL Optimal LDL 100-129 mg/dL Near or above optimal LDL 130-159 mg/dL Borderline high LDL 160-189 mg/dL High LDL greater than 189 mg/dL Very high Performed By: #### B UN, CBC, CREAT, PP, LYTES, LIPID #### [facility] [address] [place] [address] [place] Triglyceride w/Reflex 277 mg/dL High 0-149 [facility] Comment on above: Result Comment: TRIG ATP III CLASSIFICATION TRIG less than 150 mg/dL Normal TRIG 150-199 mg/dL Borderline high TRIG 200-500 mg/dL High TRIG greater than 500 mg/dL Very high Standard traceable to the Center for Disease Conrtrol and Prevention (CDC) test method. Performed By: #### B UN, CBC, CREAT, PP, LYTES, LIPID #### [facility] [address] VLDL CHOLESTEROL 55 mg/dL Normal [facility] Comment on above: Performed By: #### B UN, CBC, CREAT, PP, LYTES, LIPID #### [facility] [address] Lymphocytes Auto (Bld) [#/Vo l]Ordered By: Patrizia Melendrez on 03-20-2023 Lymphocytes (Bld) [#/Vol] 2.5 10*3/uL 1.00-4.8 [facility] Lymphocytes/100 WBC Auto (Bl d)Ordered By: Patrizia Melendrez on 03-20-2023 Lymphocytes/100 WBC (Bld) 34.2 % . [facility] MCH Auto (RBC) [Entitic mass ]Ordered By: Patrizia Melendrez on 03-20-2023 MCH (RBC) [Entitic mass] 30.5 pg 24.7-34.3 [facility] MCHC Auto (RBC) [Mass/Vol]Or dered By: Patrizia Melendrez on 03-20-2023 MCHC (RBC) [Mass/Vol] 33.9 g/dL 32.0-35.0 [facility] MCV Auto (RBC) [Entitic vol] Ordered By: Patrizia Melendrez on 03-20-2023 MCV (RBC) [Entitic vol] 89.9 fL 80-100 [facility] Monocytes Auto (Bld) [#/Vol] Ordered By: Patrizia Melendrez on 03-20-2023 Monocytes (Bld) [#/Vol] 0.6 10*3/uL 0.0-0.8 [facility] Monocytes/100 WBC Auto (Bld) Ordered By: Patrizia Melendrez on 03-20-2023 Monocytes/100 WBC (Bld) 8.4 % . [facility] Neutrophils Auto (Bld) [#/Vo l]Ordered By: Patrizia Melendrez on 03-20-2023 Neutrophils (Bld) [#/Vol] 3.8 10*3/uL 1.8-7.7 [facility] Neutrophils/100 WBC Auto (Bl d)Ordered By: Patrizia Melendrez on 03-20-2023 Neutrophils/100 WBC (Bld) 52.9 % . [facility] No Panel InformationOrdered By: Patrizia Melendrez on 03-20-2023 Estimated GFR (CKD-EPI) > 60.0 mL/Min [facility] Creatinine Clearance (Chem N/A [facility] Nucleated erythrocytes [Pres ence] in Blood by Automated countOrdered By: Patrizia Melendrez on 03-20-2023 Nucleated RBC Auto Ql (Bld) 0.1 /100{WBC} 0-0.5 [facility] Platelet mean volume Auto (B ld) [Entitic vol]Ordered By: Patrizia Melendrez on 03-20-2023 Platelet mean volume (Bld) [Entitic vol] 8.0 fL 6.3-10.7 [facility] Platelets Auto (Bld) [#/Vol] Ordered By: Patrizia Melendrez on 03-20-2023 Platelets (Bld) [#/Vol] 232 10*3/uL 150-450 [facility] Potassium [Moles/volume] in Serum or PlasmaOrdered By: Patrizia Melendrez on 03-20-2023 Potassium [Moles/Vol] 4.3 mmol/L 3.5-5.1 [facility] Prothrombin time (PT)Ordered By: Patrizia Melendrez on 03-20-2023 PT Coag (PPP) [Time] 11.2 s 9.0-12.9 [facility] Comment on above: A hematocrit value g reater than 55% may lead to inaccurate results in coagulation testing. Patients having hematocrit values >55% require a special collection tube for coagulation studies. Please contact the laboratory at [phone] for redraw instructions. RBC Auto (Bld) [#/Vol]Ordere d By: Patrizia Melendrez on 03-20-2023 RBC (Bld) [#/Vol] 5.25 10*6/uL 3.60-5.00 [facility] Serum or plasma anion gap de terminationOrdered By: Patrizia Melendrez on 03-20-2023 Anion gap [Moles/Vol] 8.5 mmol/L 6.0-15.0 [facility] Serum or plasma high density lipoprotein (HDL) cholesterol measurementOrdered By: Patrizia Melendrez on 03-20-2023 Cholesterol in HDL [Mass/Vol] 45 mg/dL [facility] Comment on above: HDL CHOL ATP-III CLA SSIFICATION Cardiovascular RiskHDL > or equal to 60 mg/dL LOWHDL < 40 mg/dL HIGH Serum or plasma total choles terol/high density lipoprotein (HDL) cholesterol mass ratOrdered By: Patrizia Melendrez on 03-20-2023 Cholesterol.total/Chol esterol in HDL [Mass ratio] 6.0 {ratio} <5.0 [facility] Sodium [Moles/volume] in Ser um or PlasmaOrdered By: Patrizia Melendrez on 03-20-2023 Sodium [Moles/Vol] 138 mmol/L 136-145 [facility] Triglyceride [Mass/volume] i n Serum or PlasmaOrdered By: Patrizia Melendrez on 03-20-2023 Triglyceride [Mass/Vol] 277 mg/dL 0-149 [facility] Comment on above: TRIG ATP III CLASSIF ICATIONTRIG less than 150 mg/dL NormalTRIG 150-199 mg/dL Borderline highTRIG 200-500 mg/dL High TRIG greater than 500 mg/dL Very highStandard traceable to the Center for Disease Conrtrol and Prevention (CDC) test method. Urea nitrogen [Mass/volume] in Serum or PlasmaOrdered By: Patrizia Melendrez on 03-20-2023 Urea nitrogen [Mass/Vol] 21 mg/dL 01-15 [facility] WBC Auto (Bld) [#/Vol]Ordere d By: Patrizia Melendrez on 03-20-2023 WBC (Bld) [#/Vol] 7.3 10*3/uL 3.8-11.6 [facility] CREATININEon 10-01-2022 Creatinine [Mass/Vol] 0.73 mg/dL Normal 0.55-1.02 [facility] Comment on above: Performed By: #### C PRISCILLA ####[facility] [address] [place], [place] [address]Ph. Gonzalo Willis EGFR-AF MALIAN >60 Normal >=60 [facility] Comment on above: Performed By: #### C PRISCILLA ####[facility] [address] [place], [place] [address]Nh. Gonzalo Willis EGFR-NON AF MALIAN >60 Normal >=60 [facility] Comment on above: Performed By: #### C PRISCILLA ####[facility] [address] [place] [id number]. Gonzalo Willis CT NECK ST WO W [...] by: SHAWN GRAFF Date: 2022-10-01 09:51 Normal [facility] US THYROIDon 09-04-2022 US THYROID [...] SHAWN GRAFF Date: 2022-09-04 16:52 Normal [facility] US CAROTID ART BILon 023 US [...] NISA EDWARDS Date: 2022-08-22 17:29 Normal [facility] Office Visit (Cardiology)on 07-19-2022 Follow-up visit [...] no s (more content not included)... Normal [employer] Tobacco Screening.on 023 Adult depression screening assessment No [facility] [employer] DO Work Phone: Fall risk assessment a) No falls within the last year [facility] [employer] DO Work Phone: Tobacco use status [facility] b) No [facility] [employer] DO Work Phone: ECHOCARDIO M/2D COMPLETEon 1 07-29-2021 ECHOCARDIO M/2D COMPLETE Patient: ELIZABETH QUEZADA Exam Date: 05/28/2022 : 1960 Gender:F Ordering : DR NANO NGUYEN . Admission #: [id number] Family : Order #: [id number] CLICK HERE TO VIEW EXAM ECHOCARDIOGRAM REPORT [...] Kamara M.D. on 05/30/2022 at 11:06 Normal [facility] MAMM SCREEN 3D LOVE CADon 05-25-2022 MG MAMM SCREEN 3D LOVE CAD Patient: ELIZABETH QUEZADA Exam Date: 05/25/2022 : 1960 Gender:F Ordering : DR NANO NGUYEN . Admission #: [id number] Family : Order #: [id number] CLICK HERE TO VIEW EXAM RADIOLOGY REPORT [...] lung cancer at age 58. LOCATION: [facility] BREAST COMPOSITION: Almost entirely fatty. FINDINGS: [...] Edwards MD on 05/25/2022 at 09:51 Normal [facility] NM STRESS/REST MULTIon 05-22 NM STRESS/REST MULTI Patient: EMILY QUEZADA Exam Date: 05/22/2022 : 1960 Gender:F Ordering : DR NANO NGUYEN . Admission #: [id number] Family : Order #: [id number] CLICK HERE TO VIEW EXAM RADIOLOGY REPORT [...] M.D. on 05/22/2022 at 15:59 Normal [facility] CT LUNG CANCER SCREENINGon 1 [...] NISA EDWARDS Date: 2022-05-11 15:25 Normal [facility] CBC AUTO DIFFon 05-10-2022 BASO # 0.0 103/ul Normal 0.0-0.1 [facility] Comment on above: Performed By: #### C BC ####[facility] [address] [place], [place] [address]Dr. Gonzalo Willis Basophils/100 WBC (Bld) 0.5 % Normal 0.2-2.0 [facility] Comment on above: Performed By: #### C BC ####[facility] [address] [place] [address]Dr. Gonzalo Willis EO # 0.2 103/ul Normal 0.0-0.7 [facility] Comment on above: Performed By: #### C BC ####[facility] [address] [place], [place] [address]Dr. Gonzalo Willis Eosinophils/100 WBC (Bld) 1.8 % Normal 0.9-7.0 [facility] Comment on above: Performed By: #### C BC ####[facility] [address] [place] [address]Dr. Gonzalo Willis Erythrocyte distribution width (RBC) [Ratio] 12.4 % Normal 11.0-15.0 [facility] Comment on above: Performed By: #### C BC ####[facility] [address] [address] [place], [place] [address]Dr. Gonzalo Willis Hematocrit (Bld) [Volume fraction] 53.7 % Critically high 36.0-48.0 [facility] Comment on above: Performed By: #### C BC ####[facility] Uuemcdu[address] [place], [place] [address]Dr. Gonzalo Willis Hemoglobin (Bld) [Mass/Vol] 18.4 g/dL Critically high 12.0-16.0 [facility] Comment on above: Performed By: #### C BC ####[facility] Ijaqsfrytg7[address] [place], [place] [address]Dr. Gonzalo Willis IG # 0.04 10e3/ul Critically high 0.00-0.03 [facility] Comment on above: Performed By: #### C BC ####[facility] Gkspblwikd[address] [place], [place] [address]Dr. Gonzalo Willis IG % 0.5 % Normal 0.0-0.5 [facility] Comment on above: Performed By: #### C BC ####[facility] Jaewentwqa[address] [place], [place] [address]Dr. Gonzalo Willis LYMPH # 2.5 103/ul Normal 1.2-3.8 [facility] Comment on above: Performed By: #### C BC ####[facility] Cfnzrpfnnp[address] [place], [place] [address]Dr. Gonzalo Willis Lymphocytes/100 WBC (Bld) 29.2 % Normal 20.5-60.0 [facility] Comment on above: Performed By: #### C BC ####[facility] Mudtzilskn[address] [place], [place] [address]Dr. Gonzalo Willis MANUAL DIFF REQ NO Normal [facility] Comment on above: Performed By: #### C BC ####[facility] [address]rsl[address] [place] [id number]. Gonzalo Willis MCH (RBC) [Entitic mass] 31.2 pg Normal 26.7-34.0 [facility] Comment on above: Performed By: #### C BC ####[facility] Mvzdxrlwiq54[address] [place] [id number]. Gonzalo Willis MCHC (RBC) [Mass/Vol] 34.3 g/dL Normal 29.9-35.2 [facility] Comment on above: Performed By: #### C BC ####[facility] Jsrjgklwng[address] [place] [id number]. Gonzalo Willis MCV (RBC) [Entitic vol] 91.0 fL Normal 81.0-99.0 [facility] Comment on above: Performed By: #### C BC ####[facility] Nshbgfmfoz9[address] [place], [place] [address]Dr. Gonzalo Lazaro MONO # 0.6 103/ul Normal 0.3-0.8 [facility] Comment on above: Performed By: #### C BC ####[facility] Kspdxxrxhd85[address] [place], [place] [address]Dr. Chantellkaleb Willis Monocytes/100 WBC (Bld) 7.2 % Normal 1.7-12.0 [facility] Comment on above: Performed By: #### C BC ####[facility] Aivrtrtfzc85[address] [place], [place] [address]Dr. Gonzalo Willis NEUT # 5.3 103/ul Normal 1.4-6.5 [facility] Comment on above: Performed By: #### C BC ####[facility] Qithgvxuoa[address] [place], [place] [id number]. Chantellkaleb Willis Neutrophils/100 WBC (Bld) 60.8 % Normal 43.0-75.0 [facility] Comment on above: Performed By: #### C BC ####[facility] Exxtjnrozd[address] [place], [place] [id number]. Gonzalo Willis Platelet mean volume (Bld) [Entitic vol] 9.5 fL Normal 9.5-13.5 [facility] Comment on above: Performed By: #### C BC ####[facility] [address]qcwjh[address] [place] [id number]. Gonzalo Willis PLT 265 103/ul Normal 150-450 [facility] Comment on above: Performed By: #### C BC ####[facility] Oifkxifdjp500[address] [place], [place] [address]Xi. Gonzalo Willis RBC 5.90 106/ul Critically high 4.20-5.40 [facility] Comment on above: Performed By: #### C BC ####[facility] Vtaundxpdg[address] [place] [id number]. Gonzalo Willis WBC 8.7 103/ul Normal 4.0-11.0 [facility] Comment on above: Performed By: #### C BC ####[facility] Sidrvqxwbp[address] [place] [id number]. Gonzalo Willis FREE THYROXINE INDEX T7on FTI 2.74 Normal 1.30-4.50 [facility] Comment on above: Performed By: #### T 7, TSH, CMP, LIPID ####[facility] Ygnq[address]xvzhl[address] [place] [id number]. Gonzalo Willis T3U 33.0 % Normal 30.0-39.0 [facility] Comment on above: Performed By: #### T 7, TSH, CMP, LIPID ####[facility] Sxsmadrqvq[address] [place] [id number]. Gonzalo Willis T4 [Mass/Vol] 8.30 ug/dL Normal 4.80-13.90 [facility] Comment on above: Performed By: #### T 7, TSH, CMP, LIPID ####[facility] [address]akmvv[address] [place] [id number]. Gonzalo Willis GLYCOHEMOGLOBIN A1Con 2021 ADA RECOMMENDATION SEE BELOW Normal [facility] Comment on above: Result Comment: ADA RECOMMENDED LIMIT 4.0 - 6.0 ADA THERAPEUTIC TARGET < 7.0 ACTION SUGGESTED > 7.0 Performed By: #### A 1C ####[facility] Zwvabqxnff[address] [place], [place] [address]Dr. Gonzalo Willis Glucose [Mass/Vol] 192 mg/dL Normal [facility] Comment on above: Performed By: #### A 1C ####[facility] Lrkzoonnzk20[address] [place] [id number]. Gonzalo Willis HbA1c (Bld) [Mass fraction] 8.3 % Critically high 4.5-6.2 [facility] Comment on above: Performed By: #### A 1C ####[facility] Vuqfubfiop[address] [place] [id number]. Gonzalo Willis IRONon 05-10-2022 Iron [Mass/Vol] 193.0 ug/dL Critically high 50.0-170.0 [facility] Comment on above: Performed By: #### I MATTHEW MONTELONGO, VITB12 ####[facility] [address] [place] [address]Dr. Gonzalo Willis LIPID PROFILEon 05-10-2022 CHOL-HDL RATIO NORM SEE BELOW Normal [facility] Comment on above: Result Comment: 3.3 - 4.4 LOW RISK 4.4 - 7.1 AVERAGE RISK 7.1 - 11.0 MODERATE RISK >11.0 HIGH RISK Performed By: #### T 7, TSH, CMP, LIPID #### [facility] [address] [place] [address] [address] Gonzalo Willis Cholesterol [Mass/Vol] 262 mg/dL Critically high <=200 [facility] Comment on above: Performed By: #### T 7, TSH, CMP, LIPID #### [facility] [address] [address] [address] Gonzalo Willis Cholesterol in HDL [Mass/Vol] 57 mg/dL Normal 40-60 [facility] Comment on above: Performed By: #### T 7, TSH, CMP, LIPID #### [facility] [id number] Gonzalo Willis Cholesterol in LDL [Mass/Vol] 177.4 mg/dL Normal [facility] Comment on above: Performed By: #### T 7, TSH, CMP, LIPID #### [facility] [id number] Gonzalo Willis Cholesterol.total/Chol esterol in HDL [Mass ratio] 4.6 {ratio} Normal [facility] Comment on above: Performed By: #### T 7, TSH, CMP, LIPID #### [facility] [address] [address] [address] Gonzalo Willis HDL NORMAL > or = 60 mg/dl - LO W CARDIOVASCULAR RISK <40 mg/dl - HIGH CARDIOVASCULAR RISK Normal [facility] Comment on above: Performed By: #### T 7, TSH, CMP, LIPID #### [facility] [address] [place] [address] Dr. Gonzalo Willis LDL CALC NORMAL SEE BELOW Normal [facility] Comment on above: Result Comment: <100 mg/dl OPTIMAL 100 - 129 mg/dl NEAR OR ABOVE OPTIMAL 130 - 159 mg/dl BORDERLINE HIGH 160 - 189 mg/dl HIGH >190 mg/dl VERY HIGH Performed By: #### T 7, TSH, CMP, LIPID #### [facility] [address] [place] [address] Dr. Gonzalo Willis Triglyceride [Mass/Vol] 138 mg/dL Normal <=150 [facility] Comment on above: Performed By: #### T 7, TSH, CMP, LIPID #### [facility] [address] [place] [address] Dr. Gonzalo Willis VLDL CALC 27.6 mg/dL Normal [facility] Comment on above: Performed By: #### T 7, TSH, CMP, LIPID #### [facility] [address] [place] [address] Dr. Gonzalo Willis PROF 14(COMP METB)on 022 Albumin [Mass/Vol] 4.3 g/dL Normal 3.4-5.0 [facility] Comment on above: Performed By: #### T 7, TSH, CMP, LIPID #### [facility] [address] [place] [address] Dr. Gonzalo Willis Albumin/Globulin [Mass ratio] 1.0 {ratio} Normal [facility] Comment on above: Performed By: #### T 7, TSH, CMP, LIPID #### [facility] [address] [place] [address] Dr. Gonzalo Willis ALP [Catalytic activity/Vol] 86 U/L Normal 46-116 [facility] Comment on above: Performed By: #### T 7, TSH, CMP, LIPID #### [facility] [address] [address] [address] Gonzalo Willis ALT [Catalytic activity/Vol] 20 U/L Normal 14-59 [facility] Comment on above: Performed By: #### T 7, TSH, CMP, LIPID #### [facility] [address] [address] [address] Gonzalo Willis Anion gap [Moles/Vol] 11.2 mmol/L Normal [facility] Comment on above: Performed By: #### T 7, TSH, CMP, LIPID #### [facility] [address] [place] [address] Dr. Gonzalo Willis AST [Catalytic activity/Vol] 9 U/L Critically low 15-37 [facility] Comment on above: Performed By: #### T 7, TSH, CMP, LIPID #### [facility] [address] [place] [address] Dr. Gonzalo Willis Bilirubin [Mass/Vol] 0.6 mg/dL Normal 0.2-1.0 [facility] Comment on above: Performed By: #### T 7, TSH, CMP, LIPID #### [facility] [address] [place] [address] Dr. Gonzalo Willis Calcium [Mass/Vol] 10.1 mg/dL Normal 8.5-10.1 [facility] Comment on above: Performed By: #### T 7, TSH, CMP, LIPID #### [facility] [address] [place] [address] Dr. Gonzalo Willis Chloride [Moles/Vol] 98 mmol/L Normal 98-107 [facility] Comment on above: Performed By: #### T 7, TSH, CMP, LIPID #### [facility] [address] [place] [address] Dr. Gonzalo Willis CO2 [Moles/Vol] 28.4 mmol/L Normal 21.0-32.0 [facility] Comment on above: Performed By: #### T 7, TSH, CMP, LIPID #### [facility] [address] [address] [address] Gonzalo Willis Creatinine [Mass/Vol] 0.72 mg/dL Normal 0.55-1.02 [facility] Comment on above: Performed By: #### T 7, TSH, CMP, LIPID #### [facility] [address] [address] [address] Gonzalo Willis EGFR-AF MALIAN >60 Normal >=60 [facility] Comment on above: Performed By: #### T 7, TSH, CMP, LIPID #### [facility] [address] [place] [address] [address] Gonzalo Willis EGFR-NON AF MALIAN >60 Normal >=60 [facility] Comment on above: Performed By: #### T 7, TSH, CMP, LIPID #### [facility] [address] [place] [address] Dr. Gonzalo Willis Globulin (S) [Mass/Vol] 4.1 g/dL Normal [facility] Comment on above: Performed By: #### T 7, TSH, CMP, LIPID #### [facility] [address] [address] [address] Gonzalo Willis Glucose [Mass/Vol] 164 mg/dL Critically high 74-106 [facility] [place] Comment on above: Performed By: #### T 7, TSH, CMP, LIPID #### [facility] [address] [address] [address] Gonzalo Willis Potassium [Moles/Vol] 4.6 mmol/L Normal 3.5-5.1 [facility] Comment on above: Performed By: #### T 7, TSH, CMP, LIPID #### [facility] [address] [address] [address] Gonzalo Willis Protein [Mass/Vol] 8.4 g/dL Critically high 6.4-8.2 [facility] Comment on above: Performed By: #### T 7, TSH, CMP, LIPID #### [facility] [address] [address] [address] Gonzalo Willis Sodium [Moles/Vol] 133 mmol/L Critically low 136-145 [facility] Comment on above: Performed By: #### T 7, TSH, CMP, LIPID #### [facility] [address] [address] [address] Gonzalo Willis Urea nitrogen [Mass/Vol] 20.0 mg/dL Critically high 7.0-18.0 [facility] Comment on above: Performed By: #### T 7, TSH, CMP, LIPID #### [facility] [address] [address] [address] Gonzalo Willis Urea nitrogen/Creatinine [Mass ratio] 27.8 mg/mg Normal [facility] Comment on above: Performed By: #### T 7, TSH, CMP, LIPID #### [facility] [address] [address] [address] Gonzalo Willis TSHon 05-10-2022 TSH 0.872 uIU/mL Normal 0.358-3.740 [facility] Comment on above: Performed By: #### T 7, TSH, CMP, LIPID ####[facility] [address] [place] [address]Dr. Gonzalo Willis VITAMIN B12on 05-10-2022 Cobalamin (Vitamin B12) [Mass/Vol] 526.0 pg/mL Normal 193.0-986.0 [facility] Comment on above: Performed By: #### I REGINALD, VITAD, VITB12 ####[facility] [address] [place] [address]DrMel Willis VITAMIN D 25 OHon 05-10-2022 VIT D 25-OH 67.4 ng/mL Normal [facility] Comment on above: Performed By: #### I REGINALD, VITAD, VITB12 ####[facility] [address] [place] [address]DrMel Willis VIT D RANGES SEE BELOW Normal [facility] Comment on above: Result Comment: <20 ng/mL Vit D deficient 20 - <30 ng/mL Vit D insufficient 30 - 100 ng/mL Vit D sufficient >100 ng/mL Potential Toxicity Performed By: #### I REGINALD, VITAD, VITB12 ####[facility] [address] [place], [place] [address]DkDr. Gonzalo Willis Covid-19 PCR (CVDTB)on SARS-CoV-2 (COVID-19) RNA WALKER+probe Ql (Unsp spec) Not detected Normal NOT DETECTED [facility] Comment on above: Result Comment: When [...] for this test is supported by the [place] of Health and Human Service's declaration that [...] longer be used). Performed By: #### [facility] #### [facility] [address] [place], [place] [address] Dr. Gonzalo Willis Vital Signs Date Time Vital Sign Value Performing Clinician Facility 04-28-2024 10:51-0500 Diastolic blood pressure 75 mm[Hg] Papa Santiago MD Work Phone: [facility] 04-28-2024 10:51-0500 Heart rate 84 /min Papa Santiago MD Work Phone: [facility] 04-28-2024 10:51-0500 Systolic blood pressure 135 mm[Hg] Papa Santiago MD Work Phone: [facility] 01-28-2024 12:01-0400 Diastolic blood pressure 70 mm[Hg] Papa Santiago MD Work Phone: [facility] 01-28-2024 12:01-0400 Heart rate 83 /min Papa Santiago MD Work Phone: [facility] 01-28-2024 12:01-0400 Systolic blood pressure 147 mm[Hg] Papa Santiago MD Work Phone: [facility] 01-16-2024 11:51-0400 Body height 165.1 cm Shanice Larsen MD Work Phone: [facility] 01-16-2024 11:51-0400 Body mass index (BMI) [Ratio] 28.62 kg/m2 Shanice Larsen MD Work Phone: [facility] 01-16-2024 11:51-0400 Body weight 78.02 kg Shanice Larsen MD Work Phone: [facility] 01-16-2024 11:51-0400 Diastolic blood pressure 69 mm[Hg] Shanice Larsen MD Work Phone: [facility] 01-16-2024 11:51-0400 Heart rate 88 /min Shanice Larsen MD Work Phone: [facility] 01-16-2024 11:51-0400 SaO2% (BldA) [Mass fraction] 98 % Shanice Larsen MD Work Phone: [facility] 01-16-2024 11:51-0400 Systolic blood pressure 110 mm[Hg] Shanice Larsen MD Work Phone: [facility] 10-10-2023 12:40-0400 Body height 160 cm Shanice Larsen MD Work Phone: [facility] 10-10-2023 12:40-0400 Body weight 77.11 kg Shanice Larsen MD Work Phone: [facility] 10-10-2023 12:40-0400 Diastolic blood pressure 73 mm[Hg] Shanice Larsen MD Work Phone: [facility] 10-10-2023 12:40-0400 Heart rate 90 /min Shanice Larsen MD Work Phone: [facility] 10-10-2023 12:40-0400 Respiratory rate 16 /min Shanice Larsen MD Work Phone: [facility] 10-10-2023 12:40-0400 SaO2% (BldA) [Mass fraction] 97 % Shanice Larsen MD Work Phone: [facility] 10-10-2023 12:40-0400 Systolic blood pressure 127 mm[Hg] Shanice Larsen MD Work Phone: [facility] 08-07-2023 10:40-0500 Body height 162 cm Andegoni Sandalakis [employer] Work Phone: [facility] 08-07-2023 10:40-0500 Body temperature 98.01 [degF] Andegoni Sandalakis [employer]REPA[employer]ER AND [employer]ER Work Phone: [facility] 08-07-2023 10:40-0500 Body weight 82.64 kg Andegoni Sandalakis [employer]REPA[employer]ER AND [employer]ER Work Phone: [facility] 08-07-2023 10:40-0500 Diastolic blood pressure 70 mm[Hg] Andegoni Sandalakis [employer]REPA[employer]ER AND [employer]ER Work Phone: [facility] 08-07-2023 10:40-0500 Heart rate 82 /min Andegoni Sandalakis [employer]REPA[employer]ER AND [employer]ER Work Phone: [facility] 08-07-2023 10:40-0500 SaO2% (BldA) [Mass fraction] 97 % Andegoni Sandalakis [employer]REPA[employer]ER AND CHECKER Work Phone: [facility] 08-07-2023 10:40-0500 Systolic blood pressure 128 mm[Hg] Andegoni Sandalakis [employer]REPA[employer]ER AND [employer]ER Work Phone: [facility] 07-30-2023 16:30-0500 SaO2% (BldA) [Mass fraction] 98 % NANO NGUYEN [facility] Comment on above: Order Comment: Specimen Type: ARTERIAL B LOOD SPECIMENOrdering Facility: [facility] Address: [address] [place] [address] Performed By: #### A LLBG ####[facility] [id number] [place] [id number] [place] 07-30-2023 13:11-0500 SaO2% (BldA) [Mass fraction] 98 % NANO HOY [facility] Comment on above: Order Comment: Specimen Type: ARTERIAL B LOOD SPECIMENOrdering Facility: [facility] Address: [address] [place], [place] [id number] Performed By: #### A LLBG ####[facility] [id number] [place] [id number] [place] 07-30-2023 10:56-0500 SaO2% (BldA) [Mass fraction] 96 % NANO HOY [facility] Comment on above: Order Comment: Specimen Type: ARTERIAL B LOOD SPECIMENOrdering Facility: [facility] Address: [address] [place] [address] Performed By: #### A LLBG ####[facility] [id number] [place] [id number] [place] 07-30-2023 08:10-0500 SaO2% (BldA) [Mass fraction] 97 % NANO HOY [facility] Comment on above: Order Comment: Specimen Type: ARTERIAL B LOOD SPECIMENOrdering Facility: [facility] Address: [address] [place], [place] [id number] Performed By: #### A LLBG ####[facility] [id number] [place] [id number] [place] 07-30-2023 06:05-0500 SaO2% (BldA) [Mass fraction] 97 % NANO HOY [facility] Comment on above: Order Comment: Specimen Type: ARTERIAL B LOOD SPECIMENOrdering Facility: [facility] Address: [address] [place] [address] Performed By: #### A LLBG ####[facility] LABCLIA [id number] [address] [address] [facility] 07-30-2023 03:36-0500 SaO2% (BldA) [Mass fraction] 98 % NANO HOY [facility] Comment on above: Order Comment: Specimen Type: ARTERIAL B LOOD SPECIMENOrdering Facility: [facility] Address: [address] [place], [place] [id number] Performed By: #### A LLBG ####[facility] LABIA [id number] [place] [id number] [facility] 07-30-2023 01:31-0500 SaO2% (BldA) [Mass fraction] 98 % NANO HOY [facility] Comment on above: Order Comment: Specimen Type: ARTERIAL B LOOD SPECIMENOrdering Facility: [facility] Address: [address] [place] [address] Performed By: #### A LLBG ####[facility] LABIA [id number] [place] [id number] [place] 07-29-2023 23:17-0500 SaO2% (BldA) [Mass fraction] 98 % NANO HOY [facility] Comment on above: Order Comment: Specimen Type: ARTERIAL B LOOD SPECIMENOrdering Facility: [facility] Address: [address] [place], [place] [id number] Performed By: #### A LLBG ####[facility] LABCLIA [id number] [address] [address] [place] 07-29-2023 21:16-0500 SaO2% (BldA) [Mass fraction] 98 % NANO HOY [facility] Comment on above: Order Comment: Specimen Type: ARTERIAL B LOOD SPECIMENOrdering Facility: [facility] Address: [address] [place], [place] [address] Performed By: #### A LLBG ####[facility] LABIA [id number] [place] [id number] [place] 07-29-2023 19:19-0500 SaO2% (BldA) [Mass fraction] 99 % NANO HOY [facility] Comment on above: Order Comment: Specimen Type: ARTERIAL B LOOD SPECIMENOrdering Facility: [facility] Address: [address] [place], [place] [address] Performed By: #### A LLBG ####[facility] LABIA [id number] [place] [id number] [place] 07-29-2023 16:39-0500 SaO2% (BldA) [Mass fraction] 97 % NANO HOY [facility] Comment on above: Order Comment: Specimen Type: ARTERIAL B LOOD SPECIMENOrdering Facility: [facility] Address: [address] [place] [address] Performed By: #### A LLBG ####[facility] [id number] [place] [id number] [place] [facility] 07-29-2023 14:51-0500 SaO2% (BldA) [Mass fraction] 99 % NANO HOY [facility] Comment on above: Order Comment: Specimen Type: ARTERIAL B LOOD SPECIMENOrdering Facility: [facility] Address: [address] [place], [place] [address] Performed By: #### A LLBG ####[facility] [id number] [place] [id number] [place] 07-29-2023 13:51-0500 SaO2% (BldA) [Mass fraction] 99 % NANO HOY [facility] Comment on above: Order Comment: Specimen Type: ARTERIAL B LOOD SPECIMENOrdering Facility: [facility] Address: [address] [place], [place] [address] Performed By: #### A LLMG ####[facility] [id number] [place] [phone] [facility] 07-29-2023 13:19-0500 SaO2% (BldA) [Mass fraction] 99 % NANO HOY [facility] Comment on above: Order Comment: Specimen Type: ARTERIAL B LOOD SPECIMENOrdering Facility: [facility] Address: [address] [place], [place] [address] Performed By: #### A LLBG ####[facility] LABCLIA [id number] [place] [id number] [place] 07-29-2023 12:23-0500 SaO2% (BldA) [Mass fraction] 100 % NANO HOY [facility] Comment on above: Order Comment: Specimen Type: ARTERIAL B LOOD SPECIMENOrdering Facility: [facility] Address: [address] [place], [place] [address] Performed By: #### A LLBG ####[facility] LABCLIA [id number] [place] [phone] [facility] 07-29-2023 11:28-0500 SaO2% (BldA) [Mass fraction] 100 % NANO HOY [facility] Comment on above: Order Comment: Specimen Type: ARTERIAL B LOOD SPECIMENOrdering Facility: [facility] Address: [address] [place], [place] [address] Performed By: #### A LLBG ####[facility] LABIA [id number] [place] [id number] [place] [facility] 07-29-2023 10:41-0500 SaO2% (BldA) [Mass fraction] 100 % NANO HOY [facility] Comment on above: Order Comment: Specimen Type: ARTERIAL B LOOD SPECIMENOrdering Facility: [facility] Address: [address] [place] [address] Performed By: #### A LLBG ####[facility] LABCLIA [id number] [place] [id number] [place] 07-29-2023 09:58-0500 SaO2% (BldA) [Mass fraction] 98 % NANO HOY [facility] Comment on above: Order Comment: Specimen Type: ARTERIAL B LOOD SPECIMENOrdering Facility: [facility] Address: [address] [place] [address] Performed By: #### A LLBG ####[facility] LABCLIA [id number] [place] [id number] [place] [facility] 07-29-2023 09:43-0500 SaO2% (BldA) [Mass fraction] 99 % NANO HOY [facility] Comment on above: Order Comment: Specimen Type: ARTERIAL B LOOD SPECIMENOrdering Facility: [facility] Address: [address] [place] [address] Performed By: #### A LLBG ####[facility] LABCLIA [id number] [place] [id number] [place] GAIL 07-29-2023 07:09-0500 SaO2% (BldA) [Mass fraction] 99 % NANO NGUYEN [facility] Comment on above: Order Comment: Specimen Type: ARTERIAL B LOOD SPECIMENOrdering Facility: [facility] Address: [address] [place] [address] Performed By: #### A LLBG ####[facility] LABCLIA [id number] [place] [id number] [place] 05-28-2023 13:50-0500 Body height 165.1 cm Shanice Larsen MD Work Phone: [facility] 05-28-2023 13:50-0500 Body weight 78.93 kg Shanice Larsen MD Work Phone: [facility] 05-28-2023 13:50-0500 Diastolic blood pressure 59 mm[Hg] Shanice Larsen MD Work Phone: [facility] 05-28-2023 13:50-0500 Heart rate 82 /min Shanice Larsen MD Work Phone: [facility] 05-28-2023 13:50-0500 Respiratory rate 16 /min Shanice Larsen MD Work Phone: [facility] 05-28-2023 13:50-0500 SaO2% (BldA) [Mass fraction] 97 % Shanice Larsen MD Work Phone: [facility] 05-28-2023 13:50-0500 Systolic blood pressure 109 mm[Hg] Shanice Larsen MD Work Phone: [facility] 04-03-2023 09:16-0400 Diastolic blood pressure 116 mm[Hg] Shanice Larsen MD Work Phone: [facility] 04-03-2023 09:16-0400 Heart rate 101 /min Shanice Larsen MD Work Phone: [facility] 04-03-2023 09:16-0400 Systolic blood pressure 200 mm[Hg] Shanice Larsen MD Work Phone: [facility] 03-26-2023 17:15-0400 Diastolic blood pressure 64 mm[Hg] MD Nano Nguyen Work Phone: [facility] 03-26-2023 17:15-0400 Heart rate 69 /min MD Nano Nguyen Work Phone: [facility] 03-26-2023 17:15-0400 Respiratory rate 20 /min MD Nano Nguyen Work Phone: [facility] 03-26-2023 17:15-0400 SaO2% (BldA) [Mass fraction] 99 % MD Nano Nguyen Work Phone: [facility] 03-26-2023 17:15-0400 Systolic blood pressure 143 mm[Hg] MD Nano Nguyen Work Phone: [facility] 03-26-2023 13:02-0400 Body height 165.1 cm MD Nano Nguyen Work Phone: [facility] 03-26-2023 13:02-0400 Body temperature 97.7 [degF] MD Nano Nguyen Work Phone: [facility] 03-26-2023 13:02-0400 Body weight 84.5 kg MD Nano Nguyen Work Phone: [facility] 03-20-2023 13:00-0400 Body height 165.1 cm Patrizia Arevalooroge Other [facility] [employer] Other 03-20-2023 13:00-0400 Body mass index (BMI) [Ratio] 31.31 kg/m2 Patrizia Parvin Other [employer] Other 03-20-2023 13:00-0400 Body weight 85.37 kg Patrizia Arevalooroge Other [employer] Other 03-20-2023 13:00-0400 Diastolic blood pressure 82 mm[Hg] Patrizia Arevalooroge Other [employer] Other 03-20-2023 13:00-0400 SaO2% (BldA) [Mass fraction] 94 % Patrizia Parvin Other [employer] Other 03-20-2023 13:00-0400 Systolic blood pressure 124 mm[Hg] Patrizia Arevalooroge Other [employer] Other 07-19-2022 13:16-0500 Body height 165.1 cm Nano M Hoy Work Phone: [facility] 250 DO Work Phone: 07-19-2022 13:16-0500 Body mass index (BMI) [Ratio] 31.95 kg/m2 Nano M Hoy Work Phone: [facility] 250 DO Work Phone: 07-19-2022 13:16-0500 Body surface area Derived from formula 1.94 m2 Nano M Hoy Work Phone: [facility] 250 DO Work Phone: 07-19-2022 13:16-0500 Body weight 87.09 kg Nano M Hoy Work Phone: [facility] 250 DO Work Phone: 07-19-2022 13:16-0500 Diastolic blood pressure 64 mm[Hg] Nano M Hoy Work Phone: [facility] 250 DO Work Phone: 07-19-2022 13:16-0500 Diastolic blood pressure 70 mm[Hg] Nano M Hoy Work Phone: [facility] 250 DO Work Phone: 07-19-2022 13:16-0500 Heart rate 85 /min Nano M Hoy Work Phone: [facility] 250 DO Work Phone: 07-19-2022 13:16-0500 Systolic blood pressure 110 mm[Hg] Nano M Hoy Work Phone: [facility] 250 DO Work Phone: 07-19-2022 13:16-0500 Systolic blood pressure 100 mm[Hg] Nano M Hoy Work Phone: [facility] 250 DO Work Phone: Encounters Encounter Date [...] malunion (Primary Dx); Coronary artery dise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 (HCC) Start: [...] Start: 02-18-2024 End: 02-18-2024 ambulatory [facility] Facility:[facility] Start: 02-18-2024 End: 02-18-2024 Subsequent hospital visit by physician Ct 2 Main Qb (I-Stat) Radiology Comment on above: Coronary artery dise 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 (HCC) [I25.118] [...] Start: 01-28-2024 End: 01-28-2024 ambulatory [facility] Facility:[facility] Start: 01-16-2024 End: 01-16-2024 Patient encounter procedure Shanice Larsen MD Work Phone: Cardiology Comment on above: Coronary artery dise 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 (HCC) (Primary Dx); PAD (peripheral artery disease) (HCC); Primary hypertension; Hyperlipidemia, unspecified hyperlipidemia type Start: 01-16-2024 End: 01-16-2024 ambulatory NANO NGUYEN Facility:[facility] Start: 01-03-2024 Orders Only Papa Santiago MD Work Phone: Vascular Surg Dept Comment on above: 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, bilateral legs (HCC) (Primary Dx) Start: 01-01-2024 Telephone encounter Nano Nguyen MD Work Phone: [address] [place] [address] Comment on above: Appointment Start: 12-30-2023 End: [...] Telephone encounter Shanta comer RN Work Phone: [facility] Comment on above: Insurance Authorizat ion ([employer] 140MG/ML auto-injectors/) Start: 10-17-2023 Telephone encounter Shanice Hallman MD Work Phone: Cardiology Comment on above: Received Outside Med ical Records (EDGAR ECHO REPORT) Received Outside Med ical Records (CD IMAGES [facility]) Start: 10-10-2023 End: 10-10-2023 Patient encounter procedure Shanice Larsen MD Work Phone: Cardiology Comment on above: Coronary artery dise 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 (HCC) (Primary Dx); SOB (shortness of breath); PAD (peripheral artery disease) (HCC); TIA (transient ischemic attack) Start: 10-10-2023 End: 10-10-2023 ambulatory NANO NGUYEN Facility:[facility] Start: 10-10-2023 End: 10-10-2023 Subsequent hospital visit by physician Ct 2 Main Qb (I-Stat) Radiology Comment on above: Lung nodule [R91.1] Start: 09-27-2023 ambulatory [facility] Start: 09-26-2023 End: 09-28-2023 Emergency department patient visit [facility] Start: 09-23-2023 Telephone encounter Papa Perez i, MD Work Phone: Vascular Surg Dept Comment on above: dental clearance Start: 09-12-2023 E-mail encounter jose titus caregiver Daljit Pina PRESS OPERATOR [employer]REPAIRER AND CHECKER Work Phone: [facility] Start: 09-12-2023 Follow-up encounter Daljit Whitney er PRESS OPERATOR [employer]REPAIRER AND CHECKER Work Phone: Radiology Comment on above: Actionable Findings Follow-up Start: 09-03-2023 ambulatory Anna Perea RN [facility] Comment on above: Coronary artery dise ase involving [place] coronary artery of [place] heart without angina pectoris (Primary Dx) Start: 08-23-2023 Telephone encounter Nano Nguyen MD Work Phone: NOC Comment on above: Appointment Start: 08-13-2023 E-mail encounter jose titus caregiver Daljit Pina PRESS OPERATOR [employer]REPAIRER AND CHECKER Work Phone: [facility] Start: 08-13-2023 Follow-up encounter Daljit Reit er PRESS OPERATOR [employer]REPAIRER AND CHECKER Work Phone: Radiology Comment on above: Actionable Findings Follow-up Start: 08-08-2023 Telephone encounter Moriah Muniz [facility] Comment on above: Follow Up Phone Call (RC follow up call all clear. /) Start: 08-07-2023 End: 08-07-2023 Patient encounter procedure Dania Cruz PRESS OPERATOR [employer]REPAIRER AND CHECKER Work Phone: Cardiothoracic Comment on above: S/P CABG (coronary a rtery bypass graft) (Primary Dx); PVD (peripheral vascular disease) (HCC) Start: 08-07-2023 End: 08-07-2023 ambulatory NANO NGUYEN Facility:[facility] Start: 08-07-2023 End: 08-07-2023 Subsequent [...] Evaluation and management of inpatient NANO NGUYEN Facility:[facility] Start: 07-22-2023 Patient encounter status Alma Rosa Suarez MD Work Phone: [facility] Start: 07-17-2023 End: 07-17-2023 ambulatory NANO NGUYEN Facility:[facility] Start: 07-17-2023 End: 07-17-2023 ambulatory WILLEM SUAREZ Facility:[facility] Start: 07-08-2023 End: 07-08-2023 ambulatory GLORIA CALLAHAN Facility:[facility] Start: 07-02-2023 End: 07-02-2023 ambulatory FRANTZ PEREZ Facility:[facility] Start: 07-02-2023 End: 07-02-2023 ambulatory WILLEM SUAREZ Facility:[facility] Start: 07-02-2023 End: 07-02-2023 ambulatory PAPA SANTIAGO Facility:[facility] Start: 06-14-2023 End: 06-14-2023 ambulatory WILLEM SUAREZ Facility:[facility] Start: 05-30-2023 Telephone encounter Willem marrufo MD Work Phone: Cardiothoracic Comment on above: Insurance Authorizat ion Referral Information ; New Patient Evaluation Start: 05-28-2023 End: 05-28-2023 ambulatory SHANICE LARSEN Facility:[facility] Start: 05-28-2023 End: 05-28-2023 Patient encounter procedure Shanice Larsen MD Work Phone: Cardiology Comment on above: SOB (shortness of br eath) (Primary Dx); Coronary artery disease involving [place] coronary artery of [place] heart without angina pectoris; PAD (peripheral artery disease) (HCC) Start: 05-28-2023 End: 05-28-2023 ambulatory SHANICE LARSEN Facility:[facility] Start: 05-13-2023 End: 05-13-2023 ambulatory Shanice Larsen MD Work Phone: Cardiology Comment on above: Coronary artery dise ase involving [place] coronary artery of [place] heart without angina pectoris (Primary Dx); Preop cardiovascular exam; Morbid obesity (HCC) Start: 05-13-2023 End: 05-13-2023 Patient encounter status Shanice Larsen MD Work Phone: [facility] Work Phone: Start: 05-13-2023 End: 05-13-2023 Telemedicine consultation with patient Shanice Larsen MD Work Phone: [facility] Start: 04-26-2023 Orders Only Shanice Hinton i, MD Work Phone: Cardiology Comment on above: Coronary artery dise ase involving [place] coronary artery without angina pectoris, unspecified whether [place] or transplanted heart (Primary Dx) Start: 04-08-2023 Orders Only Pamela Laws APRN.CNP Work Phone: Cardiology Comment on above: Abnormal stress test (Primary Dx) Start: 04-03-2023 End: 04-03-2023 Patient encounter procedure Shanice Larsen MD Work Phone: Cardiology Comment on above: Abnormal stress test (Primary Dx) Start: 03-26-2023 End: 03-26-2023 ambulatory Patrizia Melednrez Facility:[facility] Start: 03-26-2023 Telephone encounter Patrizia HOFF G Cardiology Start: 03-26-2023 End: 03-26-2023 Admission to same day surgery center MD Nano Nguyen Work Phone: [facility]Field Installer Work Phone: Start: 03-26-2023 End: 03-26-2023 ambulatory MD Nano Nguyen Work Phone: [facility] Work Phone: Start: 03-25-2023 End: 03-25-2023 ambulatory Patrizia Melendrez Other [employer] Other Start: 03-25-2023 Telephone encounter Patrizia HOFF G Cardiology Start: 03-20-2023 End: 03-20-2023 ambulatory Patrizia Melendrez Facility:[facility] Start: 03-20-2023 End: 03-20-2023 Patient encounter procedure MD Nano Nguyen Work Phone: [facility]-Pre-Surgical Testing Work Phone: Start: 03-20-2023 End: 03-20-2023 ambulatory MD Nano Nguyen Work Phone: [facility] Work Phone: Start: 03-20-2023 Office outpatient ne w 45 minutes Patrizia Melendrez [facility] Start: 03-13-2023 Message Nano Nguyen Work Phone: [facility] 250 DO Work Phone: Start: 11-28-2022 Message Nano Nguyen Work Phone: [facility] 600 DO Work Phone: Start: 10-01-2022 End: 10-02-[address] NANO NGUYEN . Facility:[facility] Start: 09-04-2022 End: 09-05-[address] NANO NGUYEN . Facility:[facility] Start: 08-22-2022 End: 08-23-[address] STEPAN SAM Facility:[facility] Start: 07-19-2022 Office consultation new/estab patient 60 min Nano Nguyen Work Phone: [facility] 250 DO Work Phone: Start: 07-19-2022 ambulatory Nano Nguyen Fac ility: Start: 07-02-2022 End: 07-03-[address] NANO NGUYEN . Facility:[facility] Start: 05-30-2022 End: 05-31-[address] NANO NGUYEN . Facility:[facility] Start: 05-29-2022 Encounter for genera l adult medical examination without abnormal findings ANNA IRBY [facility] Start: 05-28-2022 End: 05-29-2022 ambulatory [...] 01-29-2022 ambulatory JOE HUBBARD Facility:[facility] Nano Nguyen Work Phone: [facility] 250 DO Work Phone: Procedures Date Procedure Procedure Detail Performing Clinician Start: 08-07-2023 Radiologic exam ches t 2 views Willem Suarez MD Work Phone: Start: 07-17-2023 Antibody screen NANO NGUYEN Comment on above: Order Comment: Speci men Type: BLOOD SPECIMENOrdering Facility: [facility] Address: [address] [place] [address] Performed By: #### T [id number] ####[facility] MAIN BLOOD BANKCLIA [id number] [facility] [id number] [address] [place] Start: 05-28-2023 Echocardiography [...] CABG (coronary artery bypass graft) Anddillon Cruz APRN.REPAIRER AND CHECKER Work Phone: Ligation of fallopian tube D ouglas Sara Nguyen Work Phone: Release of trigger finger Do ugcarlo senrique Nguyen Work Phone: Tonsillectomy and adenoidectomy Nano Nguyen Work Phone: Plan of Treatment Date Care Activity Detail Author Start: 05-28-2028 Lipid 1996 panel - S radha or Plasma Lipid Screening [facility] Start: 05-28-2026 Diabetes Screening Diabetes Screenin g [facility] Start: 04-03-2026 Diabetes Screening Diabetes Screenin g [facility] Start: 02-17-2025 Screening for malign ant neoplasm of lung Lung Cancer Screening [facility] Start: 01-15-2025 BP Controlled (<130/80) BP Controlle d (<130/80) [facility] Start: 10-09-2024 BP Controlled (<130/80) BP Controlle d (<130/80) [facility] Start: 10-09-2024 Screening for malign ant neoplasm of lung Lung Cancer Screening [facility] Start: 08-07-2024 BP Controlled (<130/80) BP Controlle d (<130/80) [facility] Start: 07-31-2024 End: 07-31-2024 Patient encounter procedure Vascular Surgery Comment on above: DEYANIRA CTA A/P w/ Runoff 3M FOLLOW UP W/ CTA A/P W/ RUNOFF, DEYANIRA Start: 07-02-2024 BP Controlled (<130/80) BP Controlle d (<130/80) [facility] Start: 05-28-2024 Hepatitis B surface antibody level LDL Cholesterol [facility] Start: 04-28-2024 End: 04-28-2024 Patient encounter procedure 04/28/2024 10:30 AM EST Office Visit Vascular Surg Dept [address] [phone] Papa Santiago MD [address] [id number] 3 month follow-up no testing Vascular Surg Dept Comment on above: 3 month follow-up no testing Start: 04-16-2024 End: 04-16-2024 Patient encounter procedure Radiology Comment on above: Lung nodule Lung nodule/6 MONTH FU/Staff Message Start: 04-07-2024 End: 04-07-2024 ambulatory 04/07/2024 8:30 AM EDT [facility] [address] [phone] Shanice Larsen MD [address] [place] [address] dx: Coronary artery dise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 Cardiology Comment on above: dx: Coronary artery dise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 Start: 02-23-2024 Covid-19 Vaccine () Covid-19 Vaccine () [facility] Start: 02-23-2024 Covid-19 Vaccine ( season) Covid-19 Vaccine ( season) [facility] Start: 02-23-2024 Influenza vaccination Influenza Vacc ine (#1) [facility] Start: 02-18-2024 End: 02-18-2024 Patient encounter procedure 02/18/2024 2:30 PM EDT Appointment Radiology [address] [phone] Coronary artery disease of [place] artery of [place] heart with stable angina pect... Radiology Comment on above: Coronary artery dise ase of [place] artery of [place] heart with stable angina pect... 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, bilateral legs f/u Start: 01-16-2024 End: 04-16-2024 Lipid 1996 panel - Serum or Plasma LIPID PANEL BASIC Lab Routine Coronary artery dise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 (HCC) PAD (peripheral artery disease) (HCC) Primary hypertension Hyperlipidemia, unspecified hyperlipidemia type Expected: 01/16/2024, Expires: 04/16/2024 [facility] Work Phone: Comment on above: Expected: 01/16/2024 , Expires: 04/16/2024 Start: 01-16-2024 End: 01-16-2024 Patient encounter procedure 01/16/2024 11:15 AM EDT Office Visit Cardiology [address] [phone] Shanice Larsen MD [address] [place] [address] Coronary artery disease of [place] artery of [place] heart with stable angina pect... Cardiology Comment on above: Coronary artery dise ase of [place] artery of [place] heart with stable angina pect... Start: 01-16-2024 End: 01-16-2024 ambulatory 01/16/2024 10:45 AM EDT Results Only Cardiology [address] [phone] Coronary artery disease of [place] artery of [place] heart with stable angina pect... Cardiology Comment on above: Coronary artery dise ase of [place] artery of [place] heart with stable angina pect... Start: 01-15-2024 Hemoglobin A1c measurement HbA1C [facility] Start: 10-21-2023 End: 10-21-2023 Follow-up encounter 10/21/2023 3:30 PM EDT [facility] Pulmonary Medicine [address] [place] [address] Gloria Callahan MD [address] [place] [address] 3 Month Follow up Pulmonary Medicine Comment on above: 3 Month Follow up Start: 08-01-2023 End: 10-31-2023 CBC panel - Blood by Automated count CBC Lab Routine Surgery follow-up Expected: 08/01/2023, Expires: 10/31/2023 [facility] Work Phone: Comment on above: Expected: 08/01/2023 , Expires: 10/31/2023 Start: 08-01-2023 End: 10-31-2023 Comprehensive metabolic 2000 panel - Serum or Plasma COMP METABOLIC PANEL Lab Routine Surgery follow-up Expected: 08/01/2023, Expires: 10/31/2023 [facility] Work Phone: Comment on above: Expected: 08/01/2023 , Expires: 10/31/2023 Start: 06-24-2023 Advance Directive Discussion Advance Directive Discussion [facility] Start: 03-26-2023 End: 03-26-2023 [facility] Start: 02-22-2023 Covid-19 Vaccine ( season) Covid-19 Vaccine () [facility] Start: 02-22-2023 Influenza vaccination Influenza Vacc ine (#1) [facility] Start: 2023 Advance Directive Discussion Advance Directive Discussion [facility] Start: 2023 Bone Density Screening Bone Density Screening [facility] Start: 2023 Screening for osteoporosis Bone Density Screening [facility] Start: 06-24-2022 Depression Assessment Depression Ass essment [facility] Start: 2018 RSV Vaccine (1 - 1-d ose 60+ series) RSV Vaccine (1 - 1-dose 60+ series) [facility] Start: 01-24-2008 Influenza vaccination Lung Cancer [facility] Start: 01-24-2008 Screening for malign ant neoplasm of lung Lung Cancer Screening [facility] Start: 01-24-2008 Shingrix Vaccine (1 of 2) Hernandez grix Vaccine (1 of 2) [facility] Start: 2003 Cologuard (FIT-DNA) Cologuard (FIT-D NA) [facility] Start: 2003 Colonoscopy Colonoscopy [facility] Start: 2003 Colorectal Cancer Screening Colorectal Cancer Screening [facility] Start: [address] [facility] Start: 2003 Fecal Occult Blood Fecal Occult Bloo d [facility] Start: 2003 Lipid 1996 panel - S radha or Plasma Lipid Screening [facility] Start: 2003 Screening for malign ant neoplasm of colon [facility] Start: 2003 SIGMOIDOSCOPY SIGMOIDOSCOPY [facility] Start: 1998 Mammography Mammogram Screening [facility] Start: 1998 Screening for malign ant neoplasm of breast Mammogram Screening [facility] Start: 1977 Urine microalbumin profile DTaP,Tdap,Td Vaccine (1 - Tdap) [facility] Start: 01-24-1976 Annual PCP Team Maintenance Team Leader carl Disease Visit Annual PCP Team Chronic Disease Visit [facility] Start: 01-24-1976 BP Controlled (<130/80) BP Controlle d (<130/80) [facility] Start: 01-24-1976 Hepatitis C Screening Hepatitis C [facility] Start: 01-24-1976 HIV Screening HIV Screening [facility] Start: 01-24-1968 Diabetic foot examination Diabetic F oot Exam [facility] Start: 01-24-1968 Glaucoma screening Dilated Retinal E xam [facility] Start: 01-24-1968 Hepatitis B screening Urine Al bumin:Creatinine Ratio [facility] Start: 01-24-1964 Pneumococcal Vaccine : 65+ (1 - PCV) Pneumococcal Vaccine: 65+ (1 - PCV) [facility] CARDIAC REHAB [place] BIC Routine Coronary artery disease involving [place] coronary artery of [place] heart without angina pectoris Ordered: 09/03/2023 [facility] Work Phone: Comment on above: Ordered: 09/03/2023 CARDIAC REHAB II OUT PT ([place], [place]) CARDIAC REHAB II OUTPT ([place], [place]) BIC Routine Coronary artery dise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 (HCC) SOB (shortness of breath) PAD (peripheral artery disease) ([facility]) TIA (transient ischemic attack) Ordered: 10/10/2023 [facility] Work Phone: Comment on above: Ordered: 10/10/2023 CT Chest WO contrast CT CHEST WO IVCON Radiology Routine Lung nodule 10/10/2023 10:41 AM EDT [facility] Work Phone: End: 11-19-2024 CT Chest WO contrast CT CHEST WO IVCON Radiology Routine Lung nodule 1 Occurrences starting 10/21/2023 until 11/19/2024 [facility] Work Phone: Comment on above: 1 Occurrences starti ng 10/21/2023 until 11/19/2024 End: 02-14-2025 CT Chest WO contrast CT CHEST WO IVCON Radiology Routine Coronary artery dise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 (HCC) PAD (peripheral artery disease) (HCC) Primary hypertension Hyperlipidemia, unspecified hyperlipidemia type 1 Occurrences starting 01/16/2024 until 02/14/2025 [facility] Comment on above: 1 Occurrences starti ng 01/16/2024 until 02/14/2025 CT Chest WO contrast CT CHEST WO IVCON Radiology Routine Coronary artery dise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 (HCC) PAD (peripheral artery disease) (HCC) Primary hypertension Hyperlipidemia, unspecified hyperlipidemia type 02/18/2024 2:09 PM EDT [facility] Work Phone: End: 07-02-2024 Ct thorax w/o contrast material CT CHEST CARDIAC WO IVCON Radiology Routine Coronary artery disease involving [place] coronary artery of [place] heart with angina pectoris (HCC) PAD (peripheral artery disease) (HCC) S/P insertion of iliac artery stent Current smoker Primary hypertension Coronary angioplasty status 1 Occurrences starting 06/03/2023 until 07/02/2024 [facility] Work Phone: Comment on above: 1 Occurrences starti ng 06/03/2023 until 07/02/2024 End: 05-28-2025 CTA Abdominal, Pelvis and Lower extremity vessels W contrast IV CTA ABD/PEL LOWER EXTREM WO/W IVCON Radiology Routine Peripheral vascular disease (HCC) Diminished pulses in lower extremity PAD (peripheral artery disease) (HCC) 1 Occurrences starting 04/28/2024 until 05/28/2025 [facility] Comment on above: 1 Occurrences starti ng 04/28/2024 until 05/28/2025 End: 04-08-2024 ECG COMPLETE ECG COMPLETE ECG Routine Abnormal stress test 1 Occurrences starting 04/08/2023 until 04/08/2024 [facility] Work Phone: Comment on above: 1 Occurrences starti ng 04/08/2023 until 04/08/2024 End: 08-01-2024 ECG COMPLETE ECG COMPLETE ECG Routine Surgery follow-up 1 Occurrences starting 08/01/2023 until 08/01/2024 [facility] Work Phone: Comment on above: 1 Occurrences starti ng 08/01/2023 until 08/01/2024 End: 10-09-2024 ECG COMPLETE ECG COMPLETE ECG Routine Coronary artery dise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 (HCC) SOB (shortness of breath) PAD (peripheral artery disease) (HCC) TIA (transient ischemic attack) 1 Occurrences starting 10/10/2023 until 10/09/2024 [facility] Work Phone: Comment on above: 1 Occurrences starti ng 10/10/2023 until 10/09/2024 End: 01-15-2025 ECG COMPLETE ECG COMPLETE ECG Routine Coronary artery dise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 (HCC) PAD (peripheral artery disease) (HCC) Primary hypertension Hyperlipidemia, unspecified hyperlipidemia type 1 Occurrences starting 01/16/2024 until 01/15/2025 [facility] Comment on above: 1 Occurrences starti ng 01/16/2024 until 01/15/2025 End: 04-08-2025 ECG COMPLETE ECG COMPLETE ECG Routine 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) 1 Occurrences starting 04/08/2024 until 04/08/2025 [facility] Work Phone: Comment on above: 1 Occurrences starti ng 04/08/2024 until 04/08/2025 End: 04-03-2024 Echocardiography ECHO Cardiology Routine Abnormal stress test 1 Occurrences starting 04/03/2023 until 04/03/2024 [facility] Work Phone: Comment on above: 1 Occurrences starti ng 04/03/2023 until 04/03/2024 End: 07-02-2024 LUNG DIFFUSION CAPACITY (DLCO) LUNG DIFFUSION CAPACITY (DLCO) PFT Routine Coronary artery disease involving [place] coronary artery of [place] heart with angina pectoris (HCC) PAD (peripheral artery disease) ([facility]) S/P insertion of iliac artery stent Current smoker Primary hypertension Coronary angioplasty status 1 Occurrences starting 06/03/2023 until 07/02/2024 [facility] Work Phone: Comment on above: 1 Occurrences starti ng 06/03/2023 until 07/02/2024 End: 07-02-2024 SPIROMETRY BASELINE ONLY SPIROMETRY BASELINE ONLY PFT Routine Coronary artery disease involving [place] coronary artery of [place] heart with angina pectoris (HCC) PAD (peripheral artery disease) ([facility]) S/P insertion of iliac artery stent Current smoker Primary hypertension Coronary angioplasty status 1 Occurrences starting 06/03/2023 until 07/02/2024 [facility] Work Phone: Comment on above: 1 Occurrences starti ng 06/03/2023 until 07/02/2024 End: 06-03-2024 US CAROTID ARTERIES [facility] US CAROTID ARTERIES [facility] Vascular Lab Routine Coronary artery disease involving [place] coronary artery of [place] heart with angina pectoris (HCC) PAD (peripheral artery disease) ([facility]) S/P insertion of iliac artery stent Current smoker Primary hypertension Coronary angioplasty status 1 Occurrences starting 06/03/2023 until 06/03/2024 [facility] Work Phone: Comment on above: 1 Occurrences starti ng 06/03/2023 until 06/03/2024 End: 06-03-2024 US LEG VEIN MAP [facility] US LEG VEIN MAP [facility] Vascular Lab Routine Coronary artery disease involving [place] coronary artery of [place] heart with angina pectoris ([facility]) PAD (peripheral artery disease) ([facility]) S/P insertion of iliac artery stent Current smoker Primary hypertension Coronary angioplasty status 1 Occurrences starting 06/03/2023 until 06/03/2024 [facility] Work Phone: Comment on above: 1 Occurrences starti ng 06/03/2023 until 06/03/2024 End: 01-02-2025 US Lower extremity artery - bilateral PVR LEG [facility] Vascular Lab Routine Atherosclerosis of [place] arteries of extremities with rest pain, bilateral legs ([facility]) 1 Occurrences starting 01/03/2024 until 01/02/2025 [facility] Work Phone: Comment on above: 1 Occurrences starti ng 01/03/2024 until 01/02/2025 End: 06-03-2024 US MAMMARY ARTERY [facility] US MAMMARY ARTERY [facility] Vascular Lab Routine Coronary artery disease involving [place] coronary artery of [place] heart with angina pectoris (HCC) PAD (peripheral artery disease) ([facility]) S/P insertion of iliac artery stent Current smoker Primary hypertension Coronary angioplasty status 1 Occurrences starting 06/03/2023 until 06/03/2024 [facility] Work Phone: Comment on above: 1 Occurrences starti ng 06/03/2023 until 06/03/2024 End: 06-03-2024 US RADIAL ARTERY MAP [facility] US RADIAL ARTERY MAP [facility] Vascular Lab Routine Coronary artery disease involving [place] coronary artery of [place] heart with angina pectoris (HCC) PAD (peripheral artery disease) ([facility]) S/P insertion of iliac artery stent Current smoker Primary hypertension Coronary angioplasty status 1 Occurrences starting 06/03/2023 until 06/03/2024 [facility] Work Phone: Comment on above: 1 Occurrences starti ng 06/03/2023 until 06/03/2024 End: 04-28-2025 US.doppler Extremity arteries - bilateral for physiologic artery study PVR ANK PRESS [facility] Vascular Lab Routine Peripheral vascular disease ([facility]) Diminished pulses in lower extremity PAD (peripheral artery disease) ([facility]) 1 Occurrences starting 04/28/2024 until 04/28/2025 [facility] Work Phone: Comment on above: 1 Occurrences starti ng 04/28/2024 until 04/28/2025 End: 08-30-2024 XR Chest 2 Views XR CHEST 2V FRONTAL/LAT Radiology Routine Surgery follow-up 1 Occurrences starting 08/01/2023 until 08/30/2024 [facility] Work Phone: Comment on above: 1 Occurrences starti ng 08/01/2023 until 08/30/2024 [facility] Immunizations Immunization Date Immunization Notes Care Provider Berta espino 05-29-2023 influenza virus vacc ine, unspecified formulation Nano Nguyen MD Work Phone: [facility] 04-10-2022 influenza, injectabl e, quadrivalent, contains preservative Nano Nguyen Work Phone: [facility] 250 DO Work Phone: 04-10-2022 influenza virus vacc ine, unspecified formulation Shanice Larsen MD Work Phone: [facility] 05-24-2021 [place] COVID-19 Vac cine 0.5 ML Intramuscular Suspension Nano Nguyen Work Phone: [facility] 11-11-2020 [place] COVID-19 Vac cine 0.5 ML Intramuscular Suspension Nano Nguyen Work Phone: [facility] 08-13-2020 zoster vaccine recombinant Nano Nguyen Work Phone: [facility] 250 DO Work Phone: 06-11-2020 zoster vaccine recombinant Nano M Wendy Work Phone: [facility] 250 DO Work Phone: Payers Date Payer Category Payer Unknown [id number] 2023 Medicaid [place] [id number] 2023-Present [phone] [address] [place] [address] Medicaid [id number] 2023 Private Health Insurance [id number] 2023 Self-pay 2023 Medicare [id number] 2023 Medicare [id number] 1959 Unknown [id number] 1960 Unknown [id number] 2.16.840.1.195226.3.579.2. 356 1960 Unknown [id number] 2.16.840.1.701503.3.579.2. 593 1958 Unknown [id number] 2.16.840.1.398914.3.579.2. 593 1958 Unknown [id number] 2.16.840.1.094243.3.579.2. 593 1958 Unknown [id number] 2.16.840.1.445145.3.579.2. 593 1958 Unknown [id number] 2.16.840.1.033756.3.579.2. 593 1958 Unknown [id number] 2.16.840.1.652769.3.579.2. 593 1958 Unknown [id number] 2.16.840.1.568251.3.579.2. 593 1958 Unknown [id number] 2.16.840.1.610175.3.579.2. 593 1958 Unknown [id number] 2.16.840.1.587461.3.579.2. 593 1958 Unknown [id number] 2.16.840.1.094533.3.579.2. 593 1958 Unknown [id number] 2.16.840.1.499620.3.579.2. 593 1958 Unknown [id number] 2.16.840.1.065103.3.579.2. 593 1958 Unknown [id number] 2.16.840.1.729750.3.579.2. 593 1958 Unknown [id number] 2.16.840.1.953720.3.579.2. 1286 1958 Unknown [id number] 2.16.840.1.005926.3.579.2. 1286 1958 Unknown [id number] 2.16.840.1.110059.3.579.2. 1286 1958 Unknown [id number] 2.16.840.1.850745.3.579.2. 1286 1958 Unknown [id number] 2.16.840.1.270119.3.579.2. 1259 Private Health Insurance [id number] Unknown [facility] [employer] Unknown [id number] 2.16.840.1.903062.3.579.2. 531 Unknown [id number] 2.16.840.1.235284.3.579.2. 531 Social History Date Type Detail Facility Start: 04-03-2023 End: 01-28-2024 Social alcohol use Social alcohol use -[facility] 250 DO Work Phone: Comment on above: gummies, and pot; Start: 03-20-2023 End: 03-26-2023 Tobacco smoking status NHIS Smoker (finding) [facility] Start: 1960 Sex Assigned At Female F [facility] Start: 04-03-2023 End: 01-28-2024 Sex Assigned At [facility]ly [facility] [employer] Other Start: 04-03-2023 Tobacco smoking status NHIS Smokes tobacco daily [facility] History of tobacco use Cigarette Smoker [facility] Start: 04-03-2023 Tobacco use and exposure Smokeless tobacco non-user [facility] Start: 04-03-2023 End: 01-28-2024 Alcohol intake Current drinker of alcohol (finding) [facility] National Score (1-100), lower number is lower risk 91 [facility] Start: 1960 Sex Assigned At Not on file C [facility] Medical Equipment Procedure Code Equipment Code Equipment Original Text Equipment Identifier Dates [place] Thk1.65mm P tfe 4x.5in Cardiovascular Sterile - [id number] Start: 07-29-2023 Goals Date Patient Goal Desired Activity /State Personal health goal Personal health goal Clinical Notes 05-10-2022 to 04-28-2024 Papa Santiago MD - 04/28/2024 2:18 PM Shanice Dueñas MD - 04/07/2024 8:30 AM Christel Thao - 02/26/2024 10:09 AM EDTTelephone Encounter - Hilary Blackman RN - 02/25/2024 6:02 PM EDT Note Date & Type Note Facility 04-28-[address] [facility] 04-28-2024 History of Presen t illness Narrative Images from the original note were not included. 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) 06/14/2023 CAD (coronary artery disease) 06/14/2023 Carpal tunnel syndrome Cataract Coronary atherosclerosis Dental disease Depression Diabetes mellitus type 2 with peripheral artery disease (HCC) 06/14/2023 Essential hypertension 06/14/2023 Family hx-malignancy Former smoker Fractures Generalized anxiety disorder Hematoma HTN (hypertension) Injury of back Lung nodules Obesity PAD (peripheral artery disease) ([facility]) Visual impairment PAST SURGICAL HISTORY [...] TIME: 2:18 PM documented in this encounter [facility] 04-07-2024 History of Presen t illness Narrative [facility] V[facility] Department of Cardiovascular Medicine VIRTUAL VIDEO VISIT [...] visit. 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 Severe multivessel [place] coronary artery calcifications noted. Atherosclerotic calcifications of [...] 07, 2024 8:57 AM Provider Attestation: Shanice Hilmlan MD, personally performed the services described in this documentation. All medical record entries made by the scribe were at my direction and in my presence. I have reviewed the chart and discharge instructions (if applicable) and agree that the record reflects my personal performance and is accurate and complete. Shanice Larsen MD April 08, 2024 8:16 PM documented in this encounter [facility] 04-07-[address] [facility] 02-26-2024 History of Presen t illness Narrative Follow Up Diagnosis: Lung Nodule Recommendation: CT Scan Follow up Date: 02/15/2025 Follow-Up Scheduled: No Pulmonary Follow-Up Type: Lung Nodule Surveillance Enrolled in Lung Nodule program: Yes Lung Nodule Program Location: [facility] documented in this encounter [facility] 02-26-[address] [facility] 02-25-2024 Telephone encounter Note 02/25/[address] Eric carter. Hilary Blackman RN [facility] 02-25-2024 Miscellaneous Notes 02/25/[address] Eric Blackman RN Respiratory [facility] documented in this encounter [facility] 02-25-2024 Telephone encounter Note 02/25/24: Dr. Callahan requests patient be called with results of Ct Chest done 02/18/24: CT chest reviewed. Rt lung nodule opacity unchanged since 05/2023. Recommend continued monitoring -repeat CT imaging in 1 year. Called patient & LVM and sent MyC. Hilary Blackman RN [facility] 02-25-2024 Miscellaneous Notes 02/25/24: Dr. Callahan requests patient be called with results of Ct Chest done 02/18/24: CT chest reviewed. Rt lung nodule opacity unchanged since 05/2023. Recommend continued monitoring -repeat CT imaging in 1 year. Called patient & LVM and sent MyC. Hilary Blackman RN Respiratory [facility] documented in this encounter [facility] 02-18-2024 History of Presen t illness Narrative [...] PATIENT PRESENTS WITH AN IMPLANTABLE OR ATTACHED SALES ADVISOR: No RADIOLOGY DEPARTMENT: CT; Exam(s) Completed: Chest PERIPHERAL IV DATA: Not applicable SIGNED BY: RT Mitch(Alyssa) February 18, 2024 2:05 PM documented in this encounter [facility] 02-18-[address] [facility] 02-04-2024 History of Presen t illness Narrative QOL Call Tracking Documentation Follow-Up Type: Phone Call Call Attempt: 1st Attempt Call Status: Complete documented in this encounter [facility] 02-04-2024 Note HNO ID: [id number] Author: ?, ?, ? Service: ? Author Type: ? Type: Progress Notes Filed: 02/04/2024 12:53 Note Text: QOL Call Tracking Documentation Follow-Up Type: Phone Call Call Attempt: 1st Attempt Call Status: Complete [facility] 01-28-[address] [facility] 01-28-2024 History of Presen t illness Narrative Images from the original note were not included. [facility] DEPARTMENT OF VASCULAR SURGERY OUTPATIENT VISIT DATE [...] spirits. 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) 06/14/2023 CAD (coronary artery disease) 06/14/2023 Carpal tunnel syndrome Cataract Coronary atherosclerosis Dental disease Depression Diabetes mellitus type 2 with peripheral artery disease (HCC) 06/14/2023 Essential hypertension 06/14/2023 Family hx-malignancy Former smoker Fractures Generalized anxiety disorder Hematoma HTN (hypertension) Injury of back Lung nodules Obesity PAD (peripheral artery disease) ([facility]) Visual impairment PAST SURGICAL HISTORY [...] INFORMATION: Shanice Larsen MD January 16, 2024 [address] [place] [address] Scrlaura Attestation: By signing my name below, [...] 2024 12:17 PM documented in this encounter [facility] 01-16-[address] [facility] 01-01-2024 Telephone encounter Note Reason for call: Ms Quezada called and she would like to schedule an appointment with DR Qiana Neves and cell number [phone] DiagnosisAtherosclerosis of [place] arteries of extremities with rest pain, bilateral legs Kind Regards Dunia [facility] 01-01-2024 Miscellaneous Notes Reason for call: Ms Quezada called and she would like to schedule an appointment with DR Qiana Neves and cell number [phone] DiagnosisAtherosclerosis of [place] arteries of extremities with rest pain, bilateral legs Kind Regards Dunia documented in this encounter [facility] 10-30-[address] [facility] 10-30-2023 History of Presen t illness Narrative QOL Call Tracking Documentation Follow-Up Type: Phone Call Call Attempt: 1st Attempt Call Status: Patient will complete in MyChart documented in this encounter [facility] 10-30-2023 Telephone encounter Note Attempted to call patient, no answer. Left voicemail asking patient to check mychart as I will send there. Mary Franks RN [facility] 10-30-2023 Miscellaneous Notes Attempted to call patient, no answer. Left voicemail asking patient to check mychart as I will send there. Mary Franks RN Per dr larsen, yes can be on both. Suzie does not see a reason to separate but can separate days of the week if want. Can take motrin intermittently but not regular doses. October 25, 2023 Patient Contact Number: [phone] (home) Patient last seen within the last [...] Yes Lizzeth Kong documented in this encounter [facility] 10-29-2023 Telephone encounter Note Per dr larsen, yes can be on both. Suzie does not see a reason to separate but can separate days of the week if want. Can take motrin intermittently but not regular doses. [facility] 10-25-2023 Telephone encounter Note October 25, 2023 Patient Contact Number: [phone] (home) Patient last seen within the last [...] next three business days. Yes Lizzeth Kong [facility] 10-24-[address] [facility] 10-24-2023 History of Presen t illness Narrative Follow Up Diagnosis: Lung Nodule Recommendation: CT Scan Follow up Date: 04/16/2024 Follow-Up Scheduled: Yes Pulmonary Follow-Up Type: Lung Nodule Surveillance Enrolled in Lung Nodule program: Yes Lung Nodule Program Location: [facility] documented in this encounter [facility] 10-21-2023 Evaluation note Diagnosis Lung nodule- Primary [...] with smoking cessation documented in this encounter [facility] History of Present illness Narrative* Gloria Callahan MD - 10/21/2023 3:52 PM EDT Images from the original note were not included. [facility] INCIDENTAL LUNG NODULE PROGRAM ([facility] Follow-Up) Assessment / Plan 63 year [...] Lung Nodule Surveillance Lung Nodule Program Location: [facility] Medical Decision Making: Problems: Low: [...] visit. 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 Moderate to severe [place] coronary artery atherosclerotic calcifications are present, however, [...] given small size. 4. No thoracic lymphadenopathy. 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 ATS/ERS acceptability and [...] MD Pulmonary & Critical Care Medicine Respiratory [facility] October 21, 2023 3:55 PM [facility] Telephone encounter Note * Telephone Encounter - Shanta Shook RN - 10/18/2023 2:12 PM EDT Ambulatory Pharmacy Prior Authorization Note Provider Intervention Required?: No- Pharmacy completed on your behalf. Rx Plan: [facility] Drug: Repatha SureClick 140MG/ML auto-injectors Cover My Meds Aguayo: [id number] Determination: Approved Prior Authorization/Case #: n/a Prior [...] now be processed through [facility] Home Delivery Pharmacy for determination of next steps. For questions relating to this submission, please contact [facility] at [phone] [facility] Work Phone: 1(921) 139-893804-26-2024 Miscellaneous Notes* Telephone Encounter - Shanta hSook RN - 10/18/2023 2:12 PM EDT Ambulatory Pharmacy Prior Authorization Note Provider Intervention Required?: No- Pharmacy completed on your behalf. Rx Plan: [facility] Drug: Repatha SureClick 140MG/ML auto-injectors Cover My Meds Aguayo: [id number] Determination: Approved Prior Authorization/Case #: n/a Prior [...] now be processed through [facility] Home Delivery Pharmacy for determination of next steps. For questions relating to this submission, please contact [facility] at [phone] [facility] Telephone encounter Note * Telephone Encounter - Lizzeth Kong - 10/17/2023 2:12 PM EDT ADMIN UPLOADED OUTSIDE CARDIAC IMAGES TO [facility] CTA HEAD/NECK CT ANGIO HEAD CT ANGIO NECK CA ECHO DOPPLER Lizzeth Kong October 17, 2023 2:16 PM [facility]04-25-2024 Miscellaneous Notes* Telephone Encounter - Lizzeth Kong - 10/17/2023 2:12 PM EDT ADMIN UPLOADED OUTSIDE CARDIAC IMAGES TO [facility] CTA HEAD/NECK CT ANGIO HEAD CT ANGIO NECK CA ECHO DOPPLER Lizzeth Kong October 17, 2023 2:16 PM [facility] Telephone encounter Note * Telephone Encounter - Lizzeth Kong - 10/17/2023 1:36 PM EDT ADMIN UPLOADED OUTSIDE CARDIAC RECORDS TO [facility] ECHO REPORT Lizzeth Luann October 17, 2023 1:37 PM [facility]04-25-2024 Miscellaneous Notes* Telephone Encounter - Lizzeth Kong - 10/17/2023 1:36 PM EDT ADMIN UPLOADED OUTSIDE CARDIAC RECORDS TO [facility] ECHO REPORT Lizzeth Luann October 17, 2023 1:37 PM [facility] History of Present illness Narrative* Shanice Larsen MD - 10/10/2023 12:30 PM EDT Images from the original note were not included. 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 [facility] History of Present illness Narrative* Yojana [...] PATIENT PRESENTS WITH AN IMPLANTABLE OR ATTACHED SALES ADVISOR: No RADIOLOGY DEPARTMENT: CT; Exam(s) Completed: Chest PERIPHERAL IV DATA: Not applicable SIGNED BY: RT Sepideh(R) October 10, 2023 10:36 AM documented in this encounterWilson Health04-01-2024 Miscellaneous Notes* Telephone Encounter - Anna Richmond - 09/23/2023 11:34 AM EDT Yeimy from [facility] - Dr. Luciano called and wanted to know how long should it be for the patient to be cleared after surgery for the patient to get her teeth cleaned. It's been 8 weeks and she thought it would be longer than that. Yeimy can be reached at [phone] documented in this encounterWilson Health03-12-2024 History of Present illness Narrative* Anna Perea RN - 09/03/2023 12:14 PM EDT QOL Call Tracking Documentation Follow-Up Type: Phone Call Call Attempt: 1st Attempt Call Status: Patient will complete in MyChart documented in this encounterWilson Health03-12-[address] [facility] Miscellaneous Notes* Telephone Encounter - Dot Stern - 08/23/2023 9:07 AM EST Reason for call: Pt called and she would like to reschedule her appt on 02 september to . Home and cell number: [phone] Diagnosis: HOSP FOLLOW UP-DISCUSS TIMING OF LOVE FEM ENDARTS NO TESTING NEEDED Kind Regards, Dot Stern documented in this encounterWilson Health02-15-2024 Miscellaneous Notes* Telephone Encounter - Moriah Morris [...] . Moriah Morris RN documented in this encounterWilson Health02-14-2024 Instructions* Patient Instructions* Dania Cruz APRN.CNP - 08/07/2023 11:10 AM EST Follow up with PCP next week with repeat cbc and cmp to monitor trends. Follow up with pie maker machine in 4-6 weeks with consideration of repeat echo. No further refills unless specified by local providers. documented in this encounterWilson Health02-14-2024 History of Present illness Narrative* Dania Cruz APRN.CNP - 08/07/2023 10:30 AM EST Images from the original note were not included. [facility] Department of Cardiovascular Medicine DEPARTMENT [...] PAST MEDICAL HISTORY Diagnosis Date Atherosclerosis of [place] arteries of extremity with intermittent claudication ([facility]) 06/14/2023 CAD (coronary artery disease) 06/14/2023 Carpal tunnel syndrome Cataract Coronary atherosclerosis Dental disease Depression Diabetes mellitus type 2 with peripheral artery disease (HCC) 06/14/2023 Essential hypertension 06/14/2023 Family hx-malignancy Former smoker Fractures Generalized anxiety disorder Hematoma HTN (hypertension) Injury of back Lung nodules Obesity PAD (peripheral artery disease) ([facility]) Visual impairment PAST SURGICAL HISTORY [...] clean, dry and intact Wound: NA SV [place] sites: Location: Right LE, mid, distal, and ankle, healing, and clean, dry and intact with shelby. Edematous noted. Procedures: every other Amma removed from saphenous vein sites without difficulty. [...] cmp to monitor trends Follow up with pie maker machine in 4-6 weeks. May need more diuresing [...] prophylaxis reviewed Discussed wound care Dania Cruz APRN.REPAIRER AND CHECKER documented in this encounterWilson Health02-14-[address] Note[facility]02-14-2024 History of Present illness Narrative* Shannan [...] PATIENT PRESENTS WITH AN IMPLANTABLE OR ATTACHED SALES ADVISOR: No RADIOLOGY DEPARTMENT: General X-ray: Exam(s) Completed: Chest X-Ray PERIPHERAL IV DATA: Not applicable SIGNED BY: RT Enrike(Alyssa) August 07, 2023 10:07 AM documented in this encounterWilson Health02-14-[address] [facility]02-13-2024 Miscellaneous Notes* Telephone Encounter - Kevin [...] given. Kevin Reardon RN documented in this encounterWilson Health02-09-[address]24 NoteSt[facility]02-09-2024 NoteSt[facility]02-09-2024 NoteSt[facility]02-08-2024 NoteSt[facility]02-08-[address] [facility]02-07-2024 NoteSt[facility]02-06-2024 NoteSt[facility]02-05-2024 [facility] 07-29-2023 NoteSt[facility]02-05-2024 NoteSt[facility]01-31-2024 NoteHNO ID: [id number] Author: ?, ?, ? Service: ? Author Type: ? Type: Progress Notes Filed: 07/24/2023 11:11 Note Text: QOL Call Tracking Documentation Follow-Up Type: Phone Call Call Attempt: 1st Attempt Call Status: Left MessageSt. John Of God Hospital01-24-2024 NoteSt[facility]01-24-2024 NoteSt[facility]01-24-[address] [facility]01-15-2024 NoteSt[facility]01-09-2024 NoteSt[facility]01-09-2024 NoteSt[facility] 07-02-2023 NoteSt[facility]01-09-2024 NoteSt[facility]01-09-2024 NoteSt[facility]01-09-2024 NoteSt[facility]01-04-2024 NoteSt[facility]12-29-2023 NoteHNO ID: [id number] Author: Christel De La Fuente Service: ? Author Type: ? Type: Progress Notes Filed: 06/26/2023 2:37 PM Note Text: Sent to Scheduling Patient scheduled 07/08/23[facility]12-29-2023 [facility]12-22-2023 NoteSt[facility]12-22-[address] [facility]12-22-2023 NoteHNO ID: [id number] Author: Julio Smalls RRT Service: ? Author Type: Registered Resp Therapist Type: Progress Notes Filed: 06/14/2023 12:24 PM Note Text: PULM FUNCTION SMARTBLOCK: Provider: Willem Suarez MD Spirometry: 1 [facility] 06-03-2023 Miscellaneous Notes* Telephone Encounter - LcRobbin lentz - 06/03/2023 4:34 PM EST CALLED AND CONFIRMED APPTS W/MRS. QUEZADA VIA PHONE MAILED REMINDER FED EX NEXT DAY 06-03-23 #[id number] * Telephone Encounter - Ghazala Malave RN - 05/30/2023 10:08 AM EST eval only kris vascular surgery, testing, Dr. Suarez *Please call with date internal referral diagnosis: CAD history: PAD s/p iliac stents November 2022, current smoker, DM2, HTN blood thinners: asa 81, plavix, xarelto, trulicity, jardiance, ibuprofen documented in this encounterWilson Health12-07-2023 Miscellaneous Notes* Telephone Encounter - Radha Brady - 05/30/2023 10:38 AM EST IN documented in this encounterWilson Health12-05-20[address] NoteSt[facility]12-05-2023 History of Present illness Narrative* Shanice Larsen MD - 05/28/2023 1:37 PM EST Images from the original note were not included. [facility] Department of Cardiovascular Medicine SECTION OF CLINICAL CARDIOLOGY OUTPATIENT VISIT DATE May 28, 2023 OUTPATIENT VISIT TYPE ESTABLISHED PRIMARY CARE PHYSICIAN: To use this Smartlink, specify the provider ID whose address you want to display, e.g., .PROVADDR[1(where 1 is the provider ID). REFERRING PHYSICIAN: Shanice Larsen [address] [facility] [address] CHIEF COMPLAINT: Shortness of breath HISTORY OF PRESENT ILLNESS: Ms. Quezada is a 63 year old female who presents today for a cardiovascular medicine follow-up visit. I last saw her in Mar . She was having severe nausea and vomiting at the time. She was worked up by her arts administrator or manager and no cause was found. She is [...] Larsen MD CONTACT INFORMATION: documented in this encounterWilson Health11-20-[address] NoteSt[address] [facility]11-20-2023 History of Present illness Narrative* Shanice Larsen MD - 05/13/2023 3:10 PM EST [facility] Department of Cardiovascular Medicine VIRTUAL VIDEO VISIT [...] visit. Either the patient or their legal used equipment sales representative has been informed of the [...] 13, 2023 3:10 PM documented in this encounterWilson Health11-09-[address] NoteSt[address] [facility]11-03-2023 History of Present illness Narrative* Shanice [...] high risk-Shanice Larsen MD documented in this encounterWilson Health10-11-2023 Instructions* Patient Instructions* Serena Smith - 04/03/2023 9:34 AM EDT Complete blood work today Complete Echo documented in this encounterWilson Health10-11-2023 History of Present illness Narrative* Shanice Larsen MD - 04/03/2023 7:45 AM EDT Images from the original note were not included. [facility] Department of Cardiovascular Medicine SECTION [...] is a 63 year old female from [place], [place] here today for cardiovascular evaluation related [...] 03, 2023 10:10 AM documented in this encounterWilson Health10-03-2023 Hospital Discharge instructions Additional Instructions DISCHARGE INSTRUCTIONS FOR CARDIAC STOPPER MAKER PHONE NUMBER OF YOUR PHYSICIAN: [phone] PROCEDURE: Heart Cath The following instructions have [...] cold, numb, blue or white, call the pie maker machine immediately. 4. ACTIVITY: You are advised to [...] bottle, follow the instructions on the bottle. [facility] is not responsible for incorrect prescription information provided by the patient during their visit. Do not stop your medications without consulting your health care provider. Please take the list with you to your next doctor's appointment.[facility] Work Phone: [phone]) 901-833309-27-2023 Evaluation note* Encounter Date Diagnosis Assessment Notes Treatment Notes Treatment Clinical Notes Feb, Shortness of breath (ICD-10 - R06.02) Feb, Abnormal stress test (ICD-10 - R94.39) 63-year-old female with past medical history significant for peripheral vascular disease status post bilateral iliac kissing stents with now worsening intermittent claudication. She is planned for an aortobifemoral bypass surgery at [facility] on March 29, 2023 and presents for [...] Hyperlipidemia, unspecified hyperlipidemia type (ICD-10 - E78.5) [facility] [employer] Other [id number] NotePROCEDURE: XR FOOT RT MIN 3 VIEWS [...] authenticated by: NISA EDWARDS Date: 2022-05-10 13:23[facility] complaint Narrative - Abiodun QUEZADA is being seen for a consultation for dizziness, fatigue and palpitations.-[facility]- [place] [address] DO Work Phone: Evaluation noteNo assessment information available [facility] Work Phone: evaluation noteNo InformationNort [employer] Other evaluation note* Diagnosis Abnormal stress test- Primary Other nonspecific abnormal cardiovascular system function study documented in this encounter [facility] note* Diagnosis Abnormal stress test- Primary Other nonspecific abnormal cardiovascular system function study documented in this [facility]* Diagnosis Coronary artery disease involving [place] coronary artery without angina pectoris, unspecified whether [place] or transplanted heart- Primary documented in this encounter [facility] note* Diagnosis Coronary artery disease involving [place] coronary artery of [place] heart without angina pectoris- Primary Preop cardiovascular exam Pre-operative cardiovascular examination Morbid obesity (HCC) Morbid obesity documented in this encounter [facility] note* Diagnosis SOB (shortness of breath)- Primary Shortness of breath Coronary artery disease involving [place] coronary artery of [place] heart without angina pectoris PAD (peripheral artery disease) (HCC) Peripheral vascular disease, unspecified [facility] Diagnosis Coronary artery disease involving [place] coronary artery of [place] heart with angina pectoris (HCC)- Primary PAD (peripheral artery disease) ([facility]) Peripheral vascular disease, unspecified S/P insertion of iliac artery stent Other postprocedural status Current smoker Tobacco use disorder Primary hypertension Unspecified essential hypertension Coronary angioplasty status Postsurgical percutaneous transluminal coronary angioplasty status documented in this encounter [facility]* Diagnosis Surgery follow-up- Primary Follow-up examination, following unspecified surgery documented in this encounter [facility]* Diagnosis S/P CABG (coronary artery bypass graft)- Primary Postsurgical aortocoronary bypass status PVD (peripheral vascular disease) ([facility]) Peripheral vascular disease, unspecified documented in this encounter [facility]* Diagnosis Surgery follow-up Follow-up examination, following unspecified surgery [facility] Diagnosis Abnormal finding of diagnostic imaging- Primary Other nonspecific (abnormal) findings on radiological and other examinations of body structure documented in this encounter [facility]* Diagnosis Coronary artery disease involving [place] coronary artery of [place] heart without angina pectoris- Primary [facility]* Diagnosis Lung nodule Solitary pulmonary nodule [facility]* Diagnosis 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 SOB (shortness of breath) Shortness of breath PAD (peripheral artery disease) ([facility]) Peripheral vascular disease, unspecified TIA (transient ischemic attack) Unspecified transient cerebral ischemia [facility]* Diagnosis Atherosclerosis of [place] arteries of extremities with rest pain, bilateral legs (HCC)- Primary [facility]* Diagnosis 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 PAD (peripheral artery disease) ([facility]) Peripheral vascular disease, unspecified Primary hypertension Unspecified essential hypertension Hyperlipidemia, unspecified hyperlipidemia type documented in this encounter [facility]* Diagnosis Atherosclerosis of [place] artery of both lower extremities with intermittent claudication (HCC)- Primary Atherosclerosis of [place] arteries of the extremities with intermittent claudication documented in this encounter [facility]* Diagnosis Lung nodule- Primary Solitary pulmonary nodule Lung nodule- Primary Solitary pulmonary nodule Coronary artery dise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 (HCC) PAD (peripheral artery disease) (HCC) Peripheral vascular disease, unspecified Primary hypertension Unspecified essential hypertension Hyperlipidemia, unspecified hyperlipidemia type documented in this encounter [facility]* Diagnosis Lung nodule- Primary Solitary pulmonary nodule Lung nodule- Primary Solitary pulmonary nodule 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* Diagnosis Lung nodule- Primary Solitary pulmonary nodule Lung nodule- Primary Solitary pulmonary nodule Peripheral vascular disease (HCC)- Primary Peripheral vascular disease, unspecified Diminished pulses in lower extremity Other symptoms involving cardiovascular system PAD (peripheral artery disease) (HCC) Peripheral vascular disease, unspecified documented in this encounter [facility]* Diagnosis Lung nodule- Primary Solitary pulmonary nodule Lung nodule- Primary Solitary pulmonary nodule Atherosclerosis of [place] artery of both lower extremities with intermittent claudication (HCC)- Primary Atherosclerosis of [place] arteries of the extremities with intermittent claudication documented in this encounter [facility] general Narrative - Reported* Type Description Date Medical History aortic stenosis Medical History diabetes type 2 Medical History blood clot Medical History hypertension Medical History hyperlipidemia Medical History peripheral vascular disease Surgical History carpal tunnel Surgical History trigger finger Surgical History tubal ligation Surgical History bilateral kissing stents Surgical History left thigh evacuation hematoma Hospitalization History blood clot after cardiac stents [employer] Other History of Present illness Narrative* Patient [...] change and see us henceforth as needed. -[facility] Heart-Chad Reyes DO Work Phone: [facility] Outpatient Procedure (Routine) - Authorized Specialty Diagnoses / Procedures Referred By Contac t Referred To Contact [facility] [place] Diagnoses Abnormal stress test Procedures ECHO ECHO TTHRC R-T 2D W/WOM-MODE COMPL SPEC&COLR D Shanice Larsen MD [address] [place] [address] [address] Referral ID Status Reason Start Date Expiration Date Visits Requested Visits Authorized [id number] Authorized Auto-Generat ed Referral 3 04/02/2024 1 1 [facility] for referral (narrative)* Outpatient Procedure (Routine) - Authorized Specialty Diagnoses / Procedures Referred By Contac t Referred To Contact [facility] Diagnoses Abnormal stress test Procedures ECG COMPLETE ECG ROUTINE ECG W/LEAST 12 LDS W/I&R Pamela Laws APRN.CNP [address] [place] [address] [place] [id number] Referral ID Status Reason Start Date Expiration Date Visits Requested Visits Authorized [id number] Authorized Auto-Generat ed Referral 3 04/07/2024 1 1 [facility] for referral (narrative)* Outpatient Procedure (Routine) - Authorized Specialty Diagnoses / Procedures Referred By Contac t Referred To Contact [facility] [place] Diagnoses Coronary artery disease involving [place] coronary artery of [place] heart with angina pectoris (HCC) PAD (peripheral artery disease) (HCC) S/P insertion of iliac artery stent Current smoker Primary hypertension Coronary angioplasty status Procedures US RADIAL ARTERY MAP LOVE VAS LAB DUP-SCAN UXTR ART/ARTL BPGS COMPL BI STUDY Willem Suarez MD [address] [place] [address] [facility] [address] [place] [address] Referral ID Status Reason Start Date Expiration Date Visits Requested Visits Authorized [id number] Authorized Auto-Generat ed Referral 3 06/02/2024 1 1 * Outpatient Procedure (Routine) - Authorized Specialty Diagnoses / Procedures Referred By Catherine michel Referred To [facility] [place] Diagnoses Coronary artery disease involving [place] coronary artery of [place] heart with angina pectoris (HCC) PAD (peripheral artery disease) (HCC) S/P insertion of iliac artery stent Current smoker Primary hypertension Coronary angioplasty status Procedures LUNG DIFFUSION CAPACITY (DLCO) DIFFUSING CAPACITY Willem Suarez MD [address] [place] [address] [facility] [address] [place] [address] Referral ID Status Reason Start Date Expiration Date Visits Requested Visits Authorized [id number] Authorized Auto-Generat ed Referral 3 07/02/2024 1 1 * Outpatient Procedure (Routine) - Authorized Specialty Diagnoses / Procedures Referred By Catherine michel Referred To [facility] [place] Diagnoses Coronary artery disease involving [place] coronary artery of [place] heart with angina pectoris (HCC) PAD (peripheral artery disease) (HCC) S/P insertion of iliac artery stent Current smoker Primary hypertension Coronary angioplasty status Procedures SPIROMETRY BASELINE ONLY SPMTRY W/VC EXPIRATORY CHERYL W/WO MXML VOL VNTJ Willem Suarez MD [address] [place] [address] [facility] [address] [place] [address] Referral ID Status Reason Start Date Expiration Date Visits Requested Visits Authorized [id number] Authorized Auto-Generat ed Referral 3 07/02/2024 1 1 * Outpatient Procedure (Routine) - Authorized Specialty Diagnoses / Procedures Referred By Contac t Referred To Contact [facility] [place] Diagnoses Coronary artery disease involving [place] coronary artery of [place] heart with angina pectoris (HCC) PAD (peripheral artery disease) (HCC) S/P insertion of iliac artery stent Current smoker Primary hypertension Coronary angioplasty status Procedures US MAMMARY ARTERY LOVE VAS LAB DUP-SCAN UXTR ART/ARTL BPGS COMPL BI STUDY Willem Suarez MD [address] [place] [address] [address] Referral ID Status Reason Start Date Expiration Date Visits Requested Visits Authorized [id number] Authorized Auto-Generat ed Referral 3 06/02/2024 1 1 * Outpatient Procedure (Routine) - Authorized Specialty Diagnoses / Procedures Referred By Contac t Referred To [facility] Diagnoses Coronary artery disease involving [place] coronary artery of [place] heart with angina pectoris (HCC) PAD (peripheral artery disease) (HCC) S/P insertion of iliac artery stent Current smoker Primary hypertension Coronary angioplasty status Procedures US LEG VEIN MAP LOVE VAS LAB DUP-SCAN XTR VEINS COMPLETE BILATERAL STUDY Willem Suarez MD [address] [place] [address] [address] Referral ID Status Reason Start Date Expiration Date Visits Requested Visits Authorized [id number] Authorized Auto-Generat ed Referral 3 06/02/2024 1 1 * Outpatient Procedure (Routine) - Authorized Specialty Diagnoses / Procedures Referred By Contac t Referred To Contact [facility] [place] Diagnoses Coronary artery disease involving [place] coronary artery of [place] heart with angina pectoris (HCC) PAD (peripheral artery disease) (HCC) S/P insertion of iliac artery stent Current smoker Primary hypertension Coronary angioplasty status Procedures US CAROTID ARTERIES LOVE VAS LAB DUPLEX SCAN EXTRACRANIAL ART COMPL BI STUDY Willem Suarez MD [address] [facility] [place] [address] [facility] [address] [place] [address] Referral ID Status Reason Start Date Expiration Date Visits Requested Visits Authorized [id number] Authorized Auto-Generat ed Referral 3 06/23/2023 1 1 * MRI/CT (Routine) - Authorized Specialty Diagnoses / Procedures Referred By Catherine michel Referred To Contact CT IMAGING Diagnoses Coronary artery disease involving [place] coronary artery of [place] heart with angina pectoris (HCC) PAD (peripheral artery disease) (HCC) S/P insertion of iliac artery stent Current smoker Primary hypertension Coronary angioplasty status Procedures CT CHEST CARDIAC WO IVCON DIAGNOSTIC COMPUTED TOMOGRAPHY THORAX W/O CNTRST Willem Suarez MD [address] [place] [id number] [facility] [place] [address] Referral ID Status Reason Start Date Expiration Date Visits Requested Visits Authorized [id number] Authorized Auto-Generat ed Referral 3 07/02/2024 1 1 * Consult, Test, Treat (Routine) - Authorized Specialty Diagnoses / Procedures Referred By Catherine t Referred To Contact Vascular Surgery Diagnoses Coronary artery disease involving [place] coronary artery of [place] heart with angina pectoris (HCC) PAD (peripheral artery disease) (HCC) S/P insertion of iliac artery stent Current smoker Primary hypertension Coronary angioplasty status Procedures CONSULT TO VASCULAR SURGERY OFFICE/OUTPATIENT NEW HIGH MDM 60-74 MINUTES Willem Suarez MD [address] [facility] [place] [address] Referral ID Status Reason Start Date Expiration Date Visits Requested Visits Authorized [id number] Authorized PCP Requested Referral 3 06/02/2024 1 1 * Consult, Test, Treat (Routine) - Authorized Specialty Diagnoses / Procedures Referred By Catherine michel Referred To Contact Cardiac Surg Diagnoses Coronary artery disease involving [place] coronary artery of [place] heart with angina pectoris (HCC) PAD (peripheral artery disease) (HCC) S/P insertion of iliac artery stent Current smoker Primary hypertension Coronary angioplasty status Procedures CARDIOTHORACIC PREOP EVALUATION OFFICE/OUTPATIENT [facility] HIGH MDM 60-74 MINUTES Willem Suarez MD [address] [place] [address] Referral ID Status Reason Start Date Expiration Date Visits Requested Visits Authorized [id number] Authorized PCP Requested Referral 3 06/02/2024 1 1 [facility] for referral (narrative)* Outpatient Procedure (Routine) - Pending Review Specialty Diagnoses / Procedures Referred By Catherine michel Referred To Contact [facility] [place] Diagnoses Surgery follow-up Procedures ECG COMPLETE ECG ROUTINE ECG W/LEAST 12 LDS W/I&R Willem Suarez MD [address] [facility] [place] [address] [facility] [place] [id number] on [address] [facility] [place] [address] Referral ID Status Reason Start Date Expiration Date Visits Requested Visits Authorized [id number] Pending Review Auto-Generat ed Referral 08/01/2023 07/31/2024 1 1 [facility] for referral (narrative)* Outpatient Procedure (Routine) - Pending Review Specialty Diagnoses / Procedures Referred By Catherine michel Referred To Contact [facility] Diagnoses Coronary artery dise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 (HCC) SOB (shortness of breath) PAD (peripheral artery disease) (HCC) TIA (transient ischemic attack) Procedures ECG COMPLETE ECG ROUTINE ECG W/LEAST 12 LDS W/I&R Shanice Larsen MD [address] [place] [address] [address] Referral ID Status Reason Start Date Expiration Date Visits Requested Visits Authorized [id number] Pending Review Auto-Generat ed Referral 10/10/2023 10/09/2024 1 1 * Transition of Care (Routine) - Ref Not Required Specialty Diagnoses / Procedures Referred By Contac t Referred To Contact [facility] Diagnoses Coronary artery dise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 (HCC) SOB (shortness of breath) PAD (peripheral artery disease) (HCC) TIA (transient ischemic attack) Procedures CARDIOVASCULAR MEDICINE [place] [address] [place] [address] [place] [address] Referral ID Status Reason Start Date Expiration Date Visits Requested Visits Authorized [id number] Ref Not Required PCP Requested Referral 01/09/2024 10/09/2024 1 1 [facility] for referral (narrative)* Outpatient Procedure (Routine) - Pending Review Specialty Diagnoses / Procedures Referred By Contac t Referred To [facility] Diagnoses Atherosclerosis of [place] arteries of extremities with rest pain, bilateral legs (HCC) Procedures PVR LEG LOVE [facility] LAB NON-INVASIVE PHYSIOLOGIC STUDY EXTREMITY 3 Papa Hernandez MD [id number] [place] [address] Referral ID Status Reason Start Date Expiration Date Visits Requested Visits Authorized [id number] Pending Review Auto-Generat ed Referral 01/03/2024 01/02/2025 1 1 [facility] for referral (narrative)* Outpatient Procedure (Routine) - New Request Specialty Diagnoses / Procedures Referred By Contac t Referred To Contact [facility] Diagnoses 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) Procedures ECG COMPLETE ECG ROUTINE ECG W/LEAST 12 LDS W/I&R Shanice Larsen MD [address] [place] [address] [facility] [place] [address] [place] [address] Referral ID Status Reason Start Date Expiration Date Visits Requested Visits Authorized [id number] New Request Auto-Generat ed Referral 04/08/2025 1 1 * Transition of Care (Routine) - Ref Not Required Specialty Diagnoses / Procedures Referred By Contcj t Referred To Contact [facility] [place] Procedures CARDIOVASCULAR MEDICINE OP FOLLOW UP APPT ORDER Shanice Larsen MD [address] [place] [address] [address] Referral ID Status Reason Start Date Expiration Date Visits Requested Visits Authorized [id number] Ref Not Required PCP Requested Referral 10/07/2024 04/08/2025 1 1 [facility] Summary Purpose Family History No Family History [...] Documents on File Type Date Recorded Patient Glove Sewer Expl anation Advance Directive(s) 07/17/2023 1:14 PM Documents on File Type Date Recorded Patient Glove Sewer Expl anation Advance Directive(s) 07/17/2023 1:14 PM [...] ABDL AORTA&BI ILIOFEM W/CONTRAST&POSTP Papa Santiago MD [address] [place] [address] Ct Imaging [place] [address] Referral ID Status Reason Start Date Expiration Date Visits Requested Visits Authorized [id number] Pending Review Auto-Generat ed Referral 04/28/2024 05/28/2025 1 1 Specialty Diagnoses / Procedures Referred By Lanceac t Referred To Contact [facility] Diagnoses Peripheral vascular disease (HCC) Diminished pulses in lower extremity PAD (peripheral artery disease) (HCC) Procedures PVR ANK PRESS [facility] NON-INVAS PHYSIOLOGIC STD EXTREMITY ART 2 LEVEL Papa Santiago MD [address] [place] [address] [facility] [place] [address] [place] [address] Referral ID Status Reason Start Date Expiration Date Visits Requested Visits Authorized [id number] Pending Review Auto-Generat ed Referral 04/28/2024 04/28/2025 1 1 Specialty Diagnoses / Procedures [facility] Contact CT [facility] Diagnoses Coronary artery dise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 (HCC) PAD (peripheral artery disease) (HCC) Primary hypertension Hyperlipidemia, unspecified hyperlipidemia type Procedures CT CHEST WO IVCON DIAGNOSTIC COMPUTED TOMOGRAPHY THORAX W/O Shanice Patton MD [id number] Imaging [facility] Referral ID Status Reason Start Date Expiration Date Visits Requested Visits Authorized [id number] Pending Review Auto-Generat ed Referral 01/16/2024 02/14/2025 1 1 Specialty Diagnoses / Procedures Referred By Contac t Referred To Contact [facility] [place] Diagnoses Coronary artery dise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 (HCC) PAD (peripheral artery disease) (HCC) Primary hypertension Hyperlipidemia, unspecified hyperlipidemia type Procedures ECG COMPLETE ECG ROUTINE ECG W/LEAST 12 LDS W/I&R Shanice Larsen MD [address] [place] [address] [place] [address] Referral ID Status Reason Start Date Expiration Date Visits Requested Visits Authorized [id number] New Request Auto-Generat ed Referral 01/16/2024 01/15/2025 1 1 Specialty Diagnoses / Procedures Referred By Contac t Referred To Contact [facility] [place] Diagnoses Coronary artery dise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 (HCC) PAD (peripheral artery disease) (HCC) Primary hypertension Hyperlipidemia, unspecified hyperlipidemia type Procedures CARDIOVASCULAR MEDICINE OP FOLLOW UP APPT ORDER Shanice Larsen MD [phone] [place] [address] Referral ID Status Reason Start Date Expiration Date Visits Requested Visits Authorized [id number] Ref Not Required PCP Requested Referral 07/18/2024 01/15/2025 1 1 Specialty Diagnoses / Procedures Referred By Contac t Referred To Contact CT IMAGING Diagnoses Lung nodule Procedures CT CHEST WO IVCON DIAGNOSTIC COMPUTED TOMOGRAPHY THORAX W/O CNTRST Gloria Callahan MD [facility] [place] [id number] Imaging [facility] Referral ID Status Reason Start Date Expiration Date Visits Requested Visits Authorized [id number] Pending Review Auto-Generat ed Referral 10/21/2023 11/19/2024 1 1 Specialty Diagnoses / Procedures Referred By Catherine michel Referred To Contact Procedures CARDIOVASCULAR MEDICINE OP FOLLOW UP APPT ORDER Shanice Larsen MD [address] [place] [address] Referral ID Status Reason Start Date Expiration Date Visits Requested Visits Authorized [id number] Ref Not Required PCP Requested Referral 05/28/2023 05/27/2024 1 1 Specialty Diagnoses / Procedures Referred By Catherine michel Referred To Contact Cardiothoracic Surgery Diagnoses Coronary artery disease involving [place] coronary artery without angina pectoris, unspecified whether [place] or transplanted heart Procedures CONSULT TO CARDIOTHORACIC SURGERY Shanice Larsen MD [address] [place] [address] Referral ID Status Reason Start Date Expiration Date Visits Requested Visits Authorized [id number] Ref Not Required PCP Requested Referral 05/26/2023 [...] section and content) DATE CREATED AUTHOR 07/19/2022 [facility] [place] DATE CREATED AUTHOR AUTHOR'S ORGANIZ ATION 07/20/2022 [employer] DATE CREATED AUTHOR AUTHOR'S ORGANIZ ATION 10/07/2022 [facility] DATE CREATED AUTHOR AUTHOR'S ORGANIZ ATION 04/03/2023 [facility] DATE CREATED AUTHOR AUTHOR'S ORGANIZ ATION 06/11/2023 [facility] DATE CREATED AUTHOR AUTHOR'S ORGANIZ ATION 10/03/2023 [facility] DATE CREATED AUTHOR AUTHOR'S ORGANIZ ATION 12/30/2023 [facility] DATE CREATED AUTHOR AUTHOR'S ORGANIZ ATION 04/29/2024 [facility] Care Teams (unrecognized sec tion and content) Team Status: Active Member Role Status Dates Nano Nguyen MD Primary Care Provider Active Team Status: Inactive Member Role Status Dates Patrizia Melendrez MD Attending Provider Active Nano Nguyen MD Primary Care Provider Active In Home Nanny Relationship Specialty Start Date End Date Shanice Larsen MD [address] [place] [address] Primary Staff Physician Cardiology 04/03/23 In Home Nanny Relationship Specialty Start Date End Date Shanice Larsen MD [address] [place] [address] Primary Staff Physician Cardiology 04/03/23 In Home Nanny Relationship Specialty Start Date End Date Shanice Larsen MD [address] [place] [address] Primary Staff Physician Cardiology 04/03/23 In Home Nanny Relationship Specialty Start Date End Date Shanice Larsen MD [address] [place] [address] Primary Staff Physician Cardiology 04/03/23 In Home Nanny Relationship Specialty Start Date End Date Shanice Larsen MD [address] [place] [address] Primary Staff Physician Cardiology 04/03/23 Willem Suarez MD [address] [place] [address] Surgeon Cardiac Surg 05/30/23 In Home Nanny Relationship Specialty Start Date End Date Shanice Larsen MD [address] [place] [address] Primary Staff Physician Cardiology 04/03/23 Willem Suarez MD [address] [place] [address] Surgeon Cardiac Surg 05/30/23 In Home Nanny Relationship Specialty Start Date End Date Nano Nguyen MD [address] [place] [phone] PCP - General Family Medicine 06/14/23 Shanice Larsen MD Primary Staff Physician Cardiology 04/03/23 Willem Suarez MD [address] [place] [id number] Surgeon Cardiac Surg 05/30/23 In Home Nanny Relationship Specialty Start Date End Date Nano Nguyen MD [address] [place] [address] PCP - General Family Medicine 06/14/23 Shanice Larsen MD Primary Staff Physician Cardiology 04/03/23 Willem Suarez MD [address] [facility] [place] [address] Surgeon Cardiac Surg 05/30/23 In Home Nanny Relationship Specialty Start Date End Date Nano Nguyen MD [address] [place] [address] PCP - General Family Medicine 06/14/23 Shanice Larsen MD Primary Staff Physician Cardiology 04/03/23 Willem Suarez MD [address] [place] [address] Surgeon Cardiac Surg 05/30/23 In Home Nanny Relationship Specialty Start Date End Date Nano Nguyen MD [address] [place] [address] PCP - General Family Medicine 06/14/23 Shanice Larsen MD Primary Staff Physician Cardiology 04/03/23 Willem Suarez MD [address] [place] [address] Surgeon Cardiac Surg 05/30/23 In Home Nanny Relationship Specialty Start Date End Date Nano Nguyen MD [address] [place] [address] PCP - General Family Medicine 06/14/23 Shanice Larsen MD Primary Staff Physician Cardiology 04/03/23 Willem Suarez MD [address] [place] [address] Surgeon Cardiac Surg 05/30/23 In Home Nanny Relationship Specialty Start Date End Date Nano Nguyen MD [address] [place] [address] PCP - General Family Medicine 06/14/23 Shanice Larsen MD Primary Staff Physician Cardiology 04/03/23 Willem Suarez MD [address] [place] [address] Surgeon Cardiac Surg 05/30/23 In Home Nanny Relationship Specialty Start Date End Date Nano Nguyen MD [address] [place] [address] PCP - General Family Medicine 06/14/23 Shanice Larsen MD Primary Staff Physician Cardiology 04/03/23 Willem Suarez MD [address] [facility] [place] [address] Surgeon Cardiac Surg 05/30/23 In Home Nanny Relationship Specialty Start Date End Date Nano Nguyen MD [address] [place] [address] PCP - General Family Medicine 06/14/23 Shanice Larsen MD Primary Staff Physician Cardiology 04/03/23 Willem Suarez MD [address] [place] [address] Surgeon Cardiac Surg 05/30/23 In Home Nanny Relationship Specialty Start Date End Date Nano Nguyen MD [address] [place] [address] PCP - General Family Medicine 06/14/23 Shanice Larsen MD Primary Staff Physician Cardiology 04/03/23 Willem Suarez MD [address] [place] [address] Surgeon Cardiac Surg 05/30/23 In Home Nanny Relationship Specialty Start Date End Date Nano Nguyen MD [address] [place] [address] PCP - General Family Medicine 06/14/23 Shanice Larsen MD Primary Staff Physician Cardiology 04/03/23 Willem Suarez MD [address] [facility] [place] [address] Surgeon Cardiac Surg 05/30/23 In Home Nanny Relationship Specialty Start Date End Date Nano Nguyen MD [address] [place] [address] PCP - General Family Medicine 06/14/23 Shanice Larsen MD Primary Staff Physician Cardiology 04/03/23 Willem Suarez MD [address] [place] [address] Surgeon Cardiac Surg 05/30/23 In Home Nanny Relationship Specialty Start Date End Date Nano Nguyen MD [address] [place] [address] PCP - General Family Medicine 06/14/23 Shanice Larsen MD Primary Staff Physician Cardiology 04/03/23 Willem Suarez MD [address] [place] [address] Surgeon Cardiac Surg 05/30/23 In Home Nanny Relationship Specialty Start Date End Date Nano Nguyen MD [address] [place] [address] PCP - General Family Medicine 06/14/23 Shanice aLrsen MD Primary Staff Physician Cardiology 04/03/23 Willem Suarez MD [address] [facility] [place] [id number] Surgeon Cardiac Surg 05/30/23 In Home Nanny Relationship Specialty Start Date End Date Nano Nguyen MD [address] [place] [address] PCP - General Family Medicine 06/14/23 Shanice Larsen MD Primary Staff Physician Cardiology 04/03/23 Willem Suarez MD [address] [place] [address] Surgeon Cardiac Surg 05/30/23 In Home Nanny Relationship Specialty Start Date End Date Nano Nguyen MD [address] [place] [address] PCP - General Family Medicine 06/14/23 Shanice Larsen MD Primary Staff Physician Cardiology 04/03/23 Willem Suarez MD [address] [facility] [place] [address] Surgeon Cardiac Surg 05/30/23 In Home Nanny Relationship Specialty Start Date End Date Nano Nguyen MD [address] [place] [address] PCP - General Family Medicine 06/14/23 Shanice Larsen MD Primary Staff Physician Cardiology 04/03/23 Willem Suarez MD [address] [facility] [place] [address] Surgeon Cardiac Surg 05/30/23 In Home Nanny Relationship Specialty Start Date End Date Nano Nguyen MD [address] [place] [address] PCP - General Family Medicine 06/14/23 Shanice Larsen MD Primary Staff Physician Cardiology 04/03/23 Willem Suarez MD [address] [facility] [place] [address] Surgeon Cardiac Surg 05/30/23 In Home Nanny Relationship Specialty Start Date End Date Nano Nguyen MD [address] [place] [address] PCP - General Family Medicine 06/14/23 Shanice Larsen MD Primary Staff Physician Cardiology 04/03/23 Willem Suarez MD [address] [place] [address] Surgeon Cardiac Surg 05/30/23 In Home Nanny Relationship Specialty Start Date End Date Nano Nguyen MD [address] [place] [address] PCP - General Family Medicine 06/14/23 Shanice Larsen MD Primary Staff Physician Cardiology 04/03/23 Willem Suarez MD [address] [place] [address] Surgeon Cardiac Surg 05/30/23 In Home Nanny Relationship Specialty Start Date End Date Nano Nguyen MD [address] [place] [address] PCP - General Family Medicine 06/14/23 Shanice Larsen MD Primary Staff Physician Cardiology 04/03/23 Willem Suarez MD [address] [place] [address] Surgeon Cardiac Surg 05/30/23 In Home Nanny Relationship Specialty Start Date End Date Nano Nguyen MD [address] [place] [address] PCP - General Family Medicine 06/14/23 Shanice Larsen MD Primary Staff Physician Cardiology 04/03/23 Willem Suarez MD [address] [place] [address] Surgeon Cardiac Surg 05/30/23 In Home Nanny Relationship Specialty Start Date End Date Nano Nguyen MD [address] [place] [address] PCP - General Family Medicine 06/14/23 Shanice Larsen MD Primary Staff Physician Cardiology 04/03/23 Willem Suarez MD [address] [place] [address] Surgeon Cardiac Surg 05/30/23 Goals (unrecognized section [...] Contact ADMITTING Diagnoses Coronary artery disease involving [place] coronary artery of [place] heart with angina pectoris (HCC) Type 2 diabetes mellitus without complication, without long-term current use of insulin (HCC) Procedures CORONARY ARTERY BYP W/VEIN & ARTERY GRAFT 1 VEIN BYPASS GRAFT ARTERY CORONARY ON-PUMP USING VENOUS GRAFT(S) AND ARTERIAL GRAFT(S) SINGLE VEIN GRAFT [facility] [address] [place] [address] Referral ID Status Reason Start Date Expiration Date Visits Re quested Visits Authorized [id number] 1 1 Reason Comments Radio Main J1 Specialty Diagnoses / Procedures Referred By Catherine michel Referred To Contact [facility] Diagnoses Coronary artery disease involving [place] coronary artery of [place] heart with angina pectoris (HCC) Type 2 diabetes mellitus without complication, without long-term current use of insulin (HCC) Procedures CORONARY ARTERY BYP W/VEIN & ARTERY GRAFT 1 VEIN BYPASS GRAFT ARTERY CORONARY ON-PUMP USING VENOUS GRAFT(S) AND ARTERIAL GRAFT(S) SINGLE VEIN GRAFT Hosp [facility] [address] [place] [address] Reason Comments Follow Up Phone Call RC follow up call a ll clear. Reason Comments Appointment Reason Comments dental clearance Specialty Diagnoses / Procedures Referred By Contac t Referred To Contact CT IMAGING Diagnoses Lung nodule Procedures CT CHEST WO IVCON DIAGNOSTIC COMPUTED TOMOGRAPHY THORAX W/O CNTRST Gloria Callahan MD [address] [place] [address] Ct Imaging [place] [address] Referral ID Status Reason Start Date Expiration Date V isits Requested Visits Authorized [id number] Closed Auto-Generate d Referral 09/02/2023 06/23/2024 1 1 Reason Comments Follow Up Shortness of Breath Specialty Diagnoses / Procedures Referred By Contac t Referred To Contact Diagnoses Follow-up exam Procedures CARDIOVASCULAR MEDICINE OP FOLLOW UP APPT ORDER OFFICE/OUTPATIENT ESTABLISHED HIGH MDM 40 MIN Pamela Laws APRN.REPAIRER AND CHECKER [address] [place] [address] [address] [place] [address] Referral ID Status Reason Start Date Expiration Date V isits Requested Visits Authorized [id number] Closed PCP Requested Referral 10/01/2023 07/01/2024 1 1 Reason Comments Received Outside Medical Records [facility] ECHO REPORT Reason Comments Received Outside Medical Records [facility] Reason Comments Insurance Authorization Repatha Sure[employer]lic k 140MG/ML auto-injectors Reason Comments Follow Up Specialty Diagnoses / Procedures Referred By Contac t Referred [facility] Diagnoses Coronary artery dise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 (HCC) SOB (shortness of breath) PAD (peripheral artery disease) (HCC) TIA (transient ischemic attack) Procedures CARDIOVASCULAR MEDICINE OP FOLLOW UP APPT ORDER Shanice Larsen MD [address] [place] [address] [facility] [place] [address] [facility] [place] [address] Referral ID Status Reason Start Date Expiration Date Visits Requested Visits Authorized [id number] Ref Not Required PCP Requested Referral 01/09/2024 10/09/2024 1 1 Reason Comments Established Patient Specialty Diagnoses / Procedures Referred By Contac t Referred To Contact CT IMAGING Diagnoses Coronary artery dise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 (HCC) PAD (peripheral artery disease) (HCC) Primary hypertension Hyperlipidemia, unspecified hyperlipidemia type Procedures CT CHEST WO IVCON DIAGNOSTIC COMPUTED TOMOGRAPHY THORAX W/O Shanice Patton MD [address] [place] [address] [place] [address] Referral ID Status Reason Start Date Expiration Date V isits Requested Visits Authorized [id number] Closed Auto-Generate d Referral 2024 06/23/2024 1 1 Reason Comments Results Reason Comments Chest Pain Source Comments (unrecognize d section and content) In the event this informatio n is protected by the Federal Confidentiality of Alcohol and Drug Abuse Patient Records regulations: The Federal rules restrict any use of the information to criminally investigate or prosecute any alcohol or drug abuse patient.[facility] HealthIn the event this information is protected by the Federal Confidentiality of Alcohol and Drug Abuse Patient Records regulations: The Federal rules restrict any use of the information to criminally investigate or prosecute any alcohol or drug abuse patient.[facility] HealthIn the event this information is protected by the Federal Confidentiality of Alcohol and Drug Abuse Patient Records regulations: The Federal rules restrict any use of the information to criminally investigate or prosecute any alcohol or drug abuse patient.[facility] HealthIn the event this information is protected by the Federal Confidentiality of Alcohol and Drug Abuse Patient Records regulations: The Federal rules restrict any use of the information to criminally investigate or prosecute any alcohol or drug abuse patient.[facility] HealthIn the event this information is protected by the Federal Confidentiality of Alcohol and Drug Abuse Patient Records regulations: The Federal rules restrict any use of the information to criminally investigate or prosecute any alcohol or drug abuse patient.[facility] HealthIn the event this information is protected by the Federal Confidentiality of Alcohol and Drug Abuse Patient Records regulations: The Federal rules restrict any use of the information to criminally investigate or prosecute any alcohol or drug abuse patient.[facility] HealthIn the event this information is protected by the Federal Confidentiality of Alcohol and Drug Abuse Patient Records regulations: The Federal rules restrict any use of the information to criminally investigate or prosecute any alcohol or drug abuse patient.[facility] HealthIn the event this information is protected by the Federal Confidentiality of Alcohol and Drug Abuse Patient Records regulations: The Federal rules restrict any use of the information to criminally investigate or prosecute any alcohol or drug abuse patient.[facility] HealthIn the event this information is protected by the Federal Confidentiality of Alcohol and Drug Abuse Patient Records regulations: The Federal rules restrict any use of the information to criminally investigate or prosecute any alcohol or drug abuse patient.[facility] HealthIn the event this information is protected by the Federal Confidentiality of Alcohol and Drug Abuse Patient Records regulations: The Federal rules restrict any use of the information to criminally investigate or prosecute any alcohol or drug abuse patient.[facility] HealthIn the event this information is protected by the Federal Confidentiality of Alcohol and Drug Abuse Patient Records regulations: The Federal rules restrict any use of the information to criminally investigate or prosecute any alcohol or drug abuse patient.[facility] HealthIn the event this information is protected by the Federal Confidentiality of Alcohol and Drug Abuse Patient Records regulations: The Federal rules restrict any use of the information to criminally investigate or prosecute any alcohol or drug abuse patient.[facility] HealthIn the event this information is protected by the Federal Confidentiality of Alcohol and Drug Abuse Patient Records regulations: The Federal rules restrict any use of the information to criminally investigate or prosecute any alcohol or drug abuse patient.[facility] HealthIn the event this information is protected by the Federal Confidentiality of Alcohol and Drug Abuse Patient Records regulations: The Federal rules restrict any use of the information to criminally investigate or prosecute any alcohol or drug abuse patient.[facility] HealthIn the event this information is protected by the Federal Confidentiality of Alcohol and Drug Abuse Patient Records regulations: The Federal rules restrict any use of the information to criminally investigate or prosecute any alcohol or drug abuse patient.[facility] HealthIn the event this information is protected by the Federal Confidentiality of Alcohol and Drug Abuse Patient Records regulations: The Federal rules restrict any use of the information to criminally investigate or prosecute any alcohol or drug abuse patient.[facility] HealthIn the event this information is protected by the Federal Confidentiality of Alcohol and Drug Abuse Patient Records regulations: The Federal rules restrict any use of the information to criminally investigate or prosecute any alcohol or drug abuse patient.[facility] HealthIn the event this information is protected by the Federal Confidentiality of Alcohol and Drug Abuse Patient Records regulations: The Federal rules restrict any use of the information to criminally investigate or prosecute any alcohol or drug abuse patient.[facility] HealthIn the event this information is protected by the Federal Confidentiality of Alcohol and Drug Abuse Patient Records regulations: The Federal rules restrict any use of the information to criminally investigate or prosecute any alcohol or drug abuse patient.[facility] HealthIn the event this information is protected by the Federal Confidentiality of Alcohol and Drug Abuse Patient Records regulations: The Federal rules restrict any use of the information to criminally investigate or prosecute any alcohol or drug abuse patient.[facility] HealthIn the event this information is protected by the Federal Confidentiality of Alcohol and Drug Abuse Patient Records regulations: The Federal rules restrict any use of the information to criminally investigate or prosecute any alcohol or drug abuse patient.[facility] HealthIn the event this information is protected by the Federal Confidentiality of Alcohol and Drug Abuse Patient Records regulations: The Federal rules restrict any use of the information to criminally investigate or prosecute any alcohol or drug abuse patient.[facility] HealthIn the event this information is protected by the Federal Confidentiality of Alcohol and Drug Abuse Patient Records regulations: The Federal rules restrict any use of the information to criminally investigate or prosecute any alcohol or drug abuse patient.[facility] HealthIn the event this information is protected by the Federal Confidentiality of Alcohol and Drug Abuse Patient Records regulations: The Federal rules restrict any use of the information to criminally investigate or prosecute any alcohol or drug abuse patient.[facility] HealthIn the event this information is protected by the Federal Confidentiality of Alcohol and Drug Abuse Patient Records regulations: The Federal rules restrict any use of the information to criminally investigate or prosecute any alcohol or drug abuse patient.[facility]In the event this information is protected by the Federal Confidentiality of Alcohol and Drug Abuse Patient Records regulations: The Federal rules restrict any use of the information to criminally investigate or prosecute any alcohol or drug abuse patient.[facility] HealthIn the event this information is protected by the Federal Confidentiality of Alcohol and Drug Abuse Patient Records regulations: The Federal rules restrict any use of the information to criminally investigate or prosecute any alcohol or drug abuse patient.[facility] HealthIn the event this information is protected by the Federal Confidentiality of Alcohol and Drug Abuse Patient Records regulations: The Federal rules restrict any use of the information to criminally investigate or prosecute any alcohol or drug abuse patient.[facility] HealthIn the event this information is protected by the Federal Confidentiality of Alcohol and Drug Abuse Patient Records regulations: The Federal rules restrict any use of the information to criminally investigate or prosecute any alcohol or drug abuse patient.[facility] HealthIn the event this information is protected by the Federal Confidentiality of Alcohol and Drug Abuse Patient Records regulations: The Federal rules restrict any use of the information to criminally investigate or prosecute any alcohol or drug abuse patient.[facility] HealthIn the event this information is protected by the Federal Confidentiality of Alcohol and Drug Abuse Patient Records regulations: The Federal rules restrict any use of the information to criminally investigate or prosecute any alcohol or drug abuse patient.[facility] HealthIn the event this information is protected by the Federal Confidentiality of Alcohol and Drug Abuse Patient Records regulations: The Federal rules restrict any use of the information to criminally investigate or prosecute any alcohol or drug abuse patient.[facility] HealthIn the event this information is protected by the Federal Confidentiality of Alcohol and Drug Abuse Patient Records regulations: The Federal rules restrict any use of the information to criminally investigate or prosecute any alcohol or drug abuse patient.[facility] HealthIn the event this information is protected by the Federal Confidentiality of Alcohol and Drug Abuse Patient Records regulations: The Federal rules restrict any use of the information to criminally investigate or prosecute any alcohol or drug abuse patient.[facility] HealthIn the event this information is protected by the Federal Confidentiality of Alcohol and Drug Abuse Patient Records regulations: The Federal rules restrict any use of the information to criminally investigate or prosecute any alcohol or drug abuse patient.[facility] HealthIn the event this information is protected by the Federal Confidentiality of Alcohol and Drug Abuse Patient Records regulations: The Federal rules restrict any use of the information to criminally investigate or prosecute any alcohol or drug abuse patient.[facility]In the event this information is protected by the Federal Confidentiality of Alcohol and Drug Abuse Patient Records regulations: The Federal rules restrict any use of the information to criminally investigate or prosecute any alcohol or drug abuse patient.[facility] HealthIn the event this information is protected by the Federal Confidentiality of Alcohol and Drug Abuse Patient Records regulations: The Federal rules restrict any use of the information to criminally investigate or prosecute any alcohol or drug abuse patient.[facility] HealthIn the event this information is protected by the Federal Confidentiality of Alcohol and Drug Abuse Patient Records regulations: The Federal rules restrict any use of the information to criminally investigate or prosecute any alcohol or drug abuse patient.[facility] HealthIn the event this information is protected by the Federal Confidentiality of Alcohol and Drug Abuse Patient Records regulations: The Federal rules restrict any use of the information to criminally investigate or prosecute any alcohol or drug abuse patient.[facility] HealthIn the event this information is protected by the Federal Confidentiality of Alcohol and Drug Abuse Patient Records regulations: The Federal rules restrict any use of the information to criminally investigate or prosecute any alcohol or drug abuse patient.[facility] FOR RECORDS PERTAINING TO PATIENTS WHO ARE [...] BE BASED ON THE PRIMARY CLINICAL RECORDS. [facility] provides no warranty or guarantee of the accuracy or completeness of information in this document.
== END 2024-06-23 11:31 | disposition home or self-care (01) ==
LOC: WC 11:30
PROVIDERS: PCP Family Medicine; Visit Provider Physician Assistant
DX: L97.418 Non-pressure chronic ulcer of right heel and midfoot with other specified severity (principal); E11.621 Type 2 diabetes mellitus with foot ulcer; L97.512 Non-pressure chronic ulcer of other part of right foot with fat layer exposed
CPT/HCPCS: G0463

== ENCOUNTER 2024-07-14 16:10 | Outpatient (OUT) | payer OTHER, SELFPAY | END 2024-07-14 16:11 | disposition home or self-care (01) | LOC: WC 16:10 | PROVIDERS: PCP Family Medicine; Visit Provider Physician Assistant | DX: E11.621 Type 2 diabetes mellitus with foot ulcer (principal); L97.418 Non-pressure chronic ulcer of right heel and midfoot with other specified severity; L97.512 Non-pressure chronic ulcer of other part of right foot with fat layer exposed | CPT/HCPCS: G0463 ==

== ENCOUNTER 2024-08-04 15:44 | Outpatient (OUT) | payer OTHER, SELFPAY | END 2024-08-04 15:45 | disposition home or self-care (01) | LOC: WC 15:44 | PROVIDERS: PCP Family Medicine; Visit Provider Physician Assistant | DX: E11.621 Type 2 diabetes mellitus with foot ulcer (principal); L97.418 Non-pressure chronic ulcer of right heel and midfoot with other specified severity; L97.512 Non-pressure chronic ulcer of other part of right foot with fat layer exposed | CPT/HCPCS: G0463 ==

== ENCOUNTER 2024-09-01 16:14 | Outpatient (OUT) | payer OTHER, SELFPAY | END 2024-09-01 16:15 | disposition home or self-care (01) | LOC: WC 16:14 | PROVIDERS: PCP Family Medicine; Visit Provider Physician Assistant | DX: E11.621 Type 2 diabetes mellitus with foot ulcer (principal); L97.418 Non-pressure chronic ulcer of right heel and midfoot with other specified severity; L97.512 Non-pressure chronic ulcer of other part of right foot with fat layer exposed | CPT/HCPCS: G0463 ==

== ENCOUNTER 2025-01-07 11:11 | Outpatient (OUT) | payer OTHER, SELFPAY ==
--- OUTSIDE RECORDS SUMMARY | 2025-01-07 11:34 | XMS_ITS | CCD ---
Author Organization [facility] Care Team Providers Care [employer] Set Up Operator Name Role Phone Nano Nguyen Primary Care Unavailable Jim Gao II Attending Unav ailable Murray II, Jim Edwards Referring Unav ailable Nano Nguyen Unavailable Unavailable Unavailable ANNA JOSEPH Consulting Unavailable HOY ., DR MCGILL Primary Care Unavailable ANNA JOSEPH Attending Unavailable ANNA JOSEPH Admitting Unavailable HOY ., DR MCGILL Consulting [...] MCGILL Admitting Unavailable Shawn Graff Consulting Unavailable SANTEE, DR NISA Lainez Consulting Unavailable EVGENYY ., DR MCGILL Primary Care Unavailable ANNA JOSEPH Attending Unavailable ANNA JOSEPH Admitting Unavailable ANNA JOSEPH Consulting Unavailable WENDY ., DR MCGILL Primary [...] Provider MD Nano Nguyen Primary Care Provider [phone] Patrizia Melendrez Unavailable Suzie LAMB, Benclaudia Unavailable Erick LAMB, Willem Unavailable Shanice Larsen MD Unavailable Unavailable Nano Nguyen MD Primary Care Provider [phone] Shanice Larsen MD Unavailable Nano Nguyen MD Primary Care Provider [phone] NANO NGUYEN Primary Care Unavailable NANO NGUYEN Referring Unavailable NANO NGUYEN Primary Care Unavailable NANO NGUYEN Referring Unavailable NANO NGUYEN Primary Care Unavailable Nano Nguyen MD Primary Care Provider [phone] Nano Nguyen MD Primary Care Provider [phone] Gonzalez Barclay MD Attending Provider [phone] Gonzalez Barclay MD Admit Provider Lashawn KAISER, Milena Shah Attending Provider SHANICE LARESN Referring Unavailable NANO NGUYEN Primary Care Unavailable AMBANI, PAPA Attending Unavailable SELF Referring Unavailable HOY, NAON M Primary Care Unavailable AMBANI, PAPA Referring Unavailable HOY, NANO M Primary Care Unavailable BARZILAI, BENICO Attending Unavailable BARZILAI, BENICO Referring Unavailable HOY, NANO M Primary Care Unavailable BARZILAI, BENICO Referring Unavailable HOY, NANO M Primary Care Unavailable SANDALAKIS, ANDEGONI Attending Unavailable HOY, NANO M Primary Care Unavailable SANDALAKIS, ANDEGONI Referring Unavailable HOY, NANO M Primary Care Unavailable AMBANI, PAPA Attending Unavailable HOY, NANO M Primary Care Unavailable BARZILAI, BENICO Attending Unavailable BARZILAI, BENICO Referring Unavailable HOY, NANO M Primary Care Unavailable Nano Nguyen MD Primary Care Provider [phone] Gonzalez Barclay MD Attending Provider Gonzalez Barclay MD Other Provider Lashawn GEORGE-CMilena Attending Provider Nano Nguyen MD Primary Care Provider [phone] Gonzalez Barclay Attending Unavailabl e Hoy, Nano M Primary Care Unavailable Gonzalez Barclay Admitting Unavailabl e Hoy, Nano M Primary Care Unavailable Milena Hardin Admitting Unavailable Milena Hardin Attending Unavailable Gonzalez Barclay Attending Unavailabl e Hoy, Nano M Primary Care Unavailable Gonzalez Barclay Admitting Unavailabl e Evgenyy, Nano M Primary Care Unavailable Gonzalez Barclay Admitting Unavailabl Gonzalez Mccrayr Attending UnavailMILAGROS [place] Attending Unavailable ALON MONIQUE Attending Unavailable Allergies Allergy Classification Reported Allergen(s) Allergy Type Date of Onset Reaction(s) Facility (20 sources) Tetracycline; Translations: [tetracycline] Drug Allergy 09-28-19 23 Unknown, GI Upset, GI intolerance [facility] (7 sources) rosuvastatin; Translations: [ROSUVASTATIN] Drug Allergy 06-24-19 20 Chest Pain, Fatigued/ Pain [facility] (1 source) SITagliptin Drug Allergy 06-24-19 20 [facility] (1 source) Tetracycline Drug Allergy [facility] (3 sources) House dust mite Drug allergy Unknown [employer] Other (12 sources) Cat dander; Translations: [CAT DANDER] Drug allergy 09-28-19 Itching [facility] (20 sources) [place] house dust mite allergenic extract / house dust mite allergenic extract; Translations: [ALLERG XT,D.FARINAE-D.P TERONYS] Drug Allergy 07-19-19 Itching [facility] (20 sources) Cat Hair Extract; Translations: [CAT HAIR STANDARDIZED ALLERGENIC EXTRACT] Drug Allergy 09-28-19 Itching [facility] (20 sources) house dust allergenic extract; Translations: [HOUSE DUST] Drug Allergy 07-19-19 Itching [facility] (20 sources) rosuvastatin Drug Allergy 06-24-19 Unknown [facility] (20 sources) SITagliptin; Translations: [SITAGLIPTIN] Drug Allergy 06-24-19 Unknown [facility] (18 sources) Miconazole; Translations: [MICONAZOLE] Drug Allergy 01-06-20 24 Itching, Swelling [facility] (6 sources) tioconazole; Translations: [tioconazole] Drug Allergy 10-07-19 25 Swelling [facility] (2 sources) House dust mite Propensity to adverse reactions 07-19-19 Itching [facility] (2 sources) Rosuvastatin calcium Allergy to substance 06-24-19 [facility] Work Phone: (1 source) house dust allergenic extract Drug Allergy 12-24-19 [facility] (1 source) rosuvastatin Drug Allergy 12-24-19 25 [facility] (1 source) Tetracycline Drug Allergy 12-24-19 25 [facility] (1 source) cat dander Drug allergy (disorder) 12-24-19 25 [facility] Repository Medications Current Medications Medication Drug Class(es) Dates Sig (Normalized) Sig (Original) acetaminophen 500 mg oral tablet (20 sources) Start: 08-02-2023 End: 11-08-2023 take 1-2 tablets by mouth every six hours as needed for pain Acetaminophen Extra Strength 500 MG tablet TAKE 1 TO 2 TABLETS BY MOUTH EVERY 6 HOURS NEEDED FOR MILD SURGICAL PAIN 08/02/2023 Active Comment on above: Take 1-2 tablets by mouth every 6 hours as needed (for mild surgical pain). acetaminophen 325 mg / HYDROcodone bitartrate 5 mg oral tablet (4 sources) Opioid Agonist Start: 11-02-2024 take 1 tablet by mouth every eight hours as needed for pain Hydrocodone-Acetami nophen 5-325 mg tablet Active 1 TAB PO Every 8 hours as needed for pain 14 5 November 02, 2024 Complies with drug therapy [id number] actuat albuterol 0.09 mg/actuat metered dose inhaler (20 sources) beta2-Adrenergic Agonist Start: 08-02-2023 take 2 puff(s) by inhalation every six hours as needed for wheezing VENTOLIN HFA 90 mcg/actuation inhaler Inhale 2 Puffs as instructed every 6 hours as needed for wheezing/shortness of breath. 1 Each 2 08/02/2023 Active Start: 03-20-2023 take 1 puff(s) by in halation every six hours as needed Albuterol Sulfate (Ventolin Hfa) 90 mcg/actuation HFA aerosol inhaler Active 2 PUFF INHALATION Q6H as needed for Respiratory Distress March 20, 2023 12:00am Complies with drug therapy Start: 02-14-2022 take 2 puff(s) by in halation four times daily as needed Ventolin HFA 108 (90 Base) MCG/ACT inhaler Inhale 2 puffs 4 (four) times a day as needed. 07/11/2022 Active take 1 puff(s) by in halation every four hours as needed Ventolin HFA 108 (90 Base) MCG/ACT 1 puff as needed Inhalation every 4 hrs Active Comment on above: Inhale 2 Puffs as in structed four times daily. Inhale 2 Puffs as in structed every 6 hours as needed for wheezing/shortness of breath. ALPRAZolam 0.25 mg oral tablet (12 sources) Benzodiazepine Start: take 1 tablet by mouth twice daily as needed for anxiety Alprazolam 0.25 mg tablet Active 0.25 MG PO Twice daily as needed for anxiety September 24, 2024 12:00am Complies with drug therapy Start: 06-28-2022 take 1 tablet by wayne once daily as needed ALPRAZolam (Xanax) 0.25 MG tablet TAKE 1 TABLET BY MOUTH ONCE A DAY NEEDED 06/28/2022 Active aspirin 81 mg oral tablet (20 sources) Platelet Aggregation Inhibitor, Nonsteroidal Anti-inflammatory Drug Start: 12-23-2024 take 1 tablet by mouth once daily Aspirin 81 mg tablet Active 81 MG PO Daily December 23, 2024 12:00am Complies with drug therapy Start: 08-02-2023 take 1 tablet by wayne th once daily aspirin 81 mg chewable tablet Take 1 tablet by mouth once daily. 90 tablet 1 08/02/2023 Active Start: 03-20-2023 End: 09-24-2024 take 1 capsule by mouth once daily Aspirin 81 mg Capsule Discontinued 81 MG PO Daily March 20, 2023 12:00am September 24, 2024 2:04pm Aspirin EC 81 MG TBEC TAKE 1 TABLET DAILY. Quantity: 90 Refills: 3 Ordered: 19-Jul-2022 DO Active Comment on above: Take 81 mg by mouth once daily. Take 1 tablet by wayne th once daily. bacillus subtilis [id number] unt / inulin 1000 mg chewable tablet (2 sources) Probiotic Produc t (Digestive Adv Prebiot+Probiot) chewable tablet Chew 1 tablet in the morning. Active BinaxNOW COVID-19 Ag Home Test kit (2 sources) Start: 07-30-2022 End: 12-31-2024 BinaxNOW COVID-19 Ag Home Test kit Use as Directed on the Package 07/30/2022 12/31/2024 Discontinued Start: 07-30-2022 BinaxNOW COVID -19 Ag Home Test kit Use as Directed on the Package 07/30/2022 Active Calcium (8 sources) Phosphate Binder, Calcium Start: 03-20-2023 take 1 tablet by mouth two times weekly Calcium 300 mg Tablet,Chewable Active 300 MG PO Twice a Week March 20, 2023 12:00am Complies with drug therapy Start: 03-20-2023 take 1 tablet by wayne th two times weekly Calcium 300 mg Tablet,Chewable Active 300 MG PO Twice a Week March 20, 2023 12:00am Start: 03-20-2023 take 300 mg by mouth two times weekly Calcium Active 300 MG PO Twice a Week March 20, 2023 12:00am calcium carbonate 1250 mg chewable tablet (20 sources) End: 11-08-2023 calcium carbonate (Os-Meme) 1 250 (500 Ca) MG chewable tablet Chew 1 tablet in the morning. Active take 1 tablet by mouth every twe lve hours Calcium 500 MG 1 tablet with meals Orally Twice a day Active Comment on above: Take 500 mg by mouth once daily. carvedilol 25 mg oral tablet (20 sources) alpha-Adrenergic Okfi, beta-Adrenergic Kofi Start: 07-05-2023 carvedilol (Coreg) 25 MG tablet TAKE 1/2 A TABLET BY MOUTH TWICE A DAY WITH FOOD 07/05/2023 Active Start: 03-07-2023 End: 03-26-2023 take 1 tablet by mouth twice daily Carvedilol 25 mg tablet Discontinued 25 MG PO Twice daily March 20, 2023 12:00am March 26, 2023 12:58pm Start: 12-06-2022 End: 12-31-2024 take 1 tablet by mouth in the morning carvedilol (Coreg) 12.5 MG tablet Take 12.5 mg by mouth in the morning and 12.5 mg before bedtime. 12/06/2022 12/31/2024 Discontinued take 2 tablets by mo [facility] every twelve hours Carvedilol 6.25 MG 2 tablets Orally Twice a day Active Comment on above: Take 25 mg by mouth two times a day. cholecalciferol 0.05 mg oral tablet (17 sources) Vitamin D Start: 03-20-20 take 1 tablet by mouth once daily in the morning Cholecalciferol (Vitamin D3) (Vitamin D3) 50 mcg (2,000 unit) Tablet Active 50 MCG PO Every morning March 20, 2023 12:00am Complies with drug therapy take 1 tablet by mouth in the mo rning cholecalciferol (Vitamin D-3) 10 MCG (400 UNIT) tablet Take 2,000 Units by mouth in the morning. Active take 1 capsule by mo [facility] every twenty-four hours Vitamin D3 1000 UNIT 1 capsule Orally On ce a day Active take 1 capsule by mouth once bunny ly Vitamin D3 50 MCG (1999) Oral Capsule TAKE 1 CAPSULE Daily Quantity: 0 Refills: 0 Ordered: 19-Jul-2022 DO Active clopidogrel 75 mg oral tablet (20 sources) P2Y12 Platelet Inhibitor Start: 09-27-2022 take 1 tablet by mouth in the morning clopidogrel (Plavix) 75 MG tablet Take 75 mg by mouth in the morning. 09/27/2022 Active Comment on above: Take 1 tablet by wayne th once daily. dexamethasone 1 mg/ml / neomycin 3.5 mg/ml / polymyxin b [id number] unt/ml ophthalmic suspension (2 sources) Aminoglycoside Antibacterial, Polymyxin-class Antibacterial, Corticosteroid Start: 06-28-2022 End: 12-31-2024 take 2 drop(s) into the eye(s) three times daily neomycin-polymyxin- dexAMETHasone (Maxitrol) [id number] ophthalmic suspension INSTILL 2 DROP INTO AFFECTED EYE THREE TIMES A DAY 06/28/2022 12/31/2024 Discontinued docusate sodium 100 mg oral capsule (20 sources) Start: 08-02-2023 take 1 capsule by mouth twice daily docusate sodium (COLACE) 100 mg capsule Take 1 capsule by mouth two times a day. 30 capsule 08/02/2023 Active Comment on above: Take 1 capsule by mo uth two times a day. 0.5 ml dulaglutide [...] 23, 2023. 0 08/23/2023 Active Start: 03-20-2023 Dulaglutide (T rulicity) 0.75 mg/0.5 mL pen injector Active 75 MG SUBCUT every week March 20, 2023 12:00am saturday Complies with drug therapy inject 0.75 mg by sch[place]ield bcutaneous injection every week Trulicity 0.75 MG/0.5ML solution pen-injector Inject 0.75 mg under the skin once a week. Active Comment on above: Inject 0.5 mL subcut aneously one time a week. Inject 0.75 mg subcu taneously one time a week. Patient should start on August 23, 2023. empagliflozin 10 mg oral tablet (20 sources) Sodium-Glucose Cotransporter 2 Inhibitor Start: 2021 take 10 mg by mouth in the morning Jardiance 10 MG Take 10 mg by mouth in the morning. 07/11/2022 Active Comment on above: Take 1 tablet by wayne th once daily. 1 ml evolocumab 140 mg/ml auto-injector (12 sources) PCSK9 Inhibitor Start: 2023 End: 2024 Repatha SureClick 140 MG/ML injection 10/18/2023 12/31/2024 Discontinued Comment on above: Inject 140 mg subcut aneously every 2 weeks. ezetimibe 10 mg oral tablet (20 sources) Dietary Cholesterol Absorption Inhibitor Start: 2021 take 1 tablet by mouth in the morning ezetimibe (Zetia) 10 MG tablet Take 10 mg by mouth in the morning. 07/11/2022 Active Comment on above: Take 1 tablet by wayne th once daily. fluconazole 100 mg oral tablet (2 sources) Azole Antifungal Start: 2022 End: 2024 take 1 tablet by mouth once daily fluconazole (Diflucan) 100 MG tablet TAKE ONE TABLET BY MOUTH DAILY FOR 10 DAYS 11/12/2022 12/31/2024 Discontinued furosemide 40 mg oral tablet (18 sources) [...] (20 sources) Angiotensin Converting Enzyme Inhibitor Start: 2022 take 1 tablet by mouth once daily at bedtime Lisinopril 20 mg tablet Active 20 MG PO Daily at bedtime March 20, 2023 12:00am Complies with drug therapy Comment on above: Take 1 tablet by wayne th once daily. loratadine 10 mg oral tablet (13 sources) Start: 2022 take 1 tablet by mouth once daily Loratadine (Claritin) 10 mg Tablet Active 10 MG PO Daily March 20, 2023 12:00am Start: 03-20-2023 take 2 tablets by mo ut once daily in the morning Loratadine (Claritin) 10 mg Tablet Active 20 MG PO Every morning March 20, 2023 12:00am Complies with drug therapy Magnesium (11 sources) Start: 03-20-2023 take 1 tablet by wayne th once daily in the morning Magnesium 250 mg Tablet Active 250 MG PO Every morning March 20, 2023 12:00am Complies with drug therapy Start: 03-20-2023 take 1 tablet by wayne th once daily in the morning Magnesium 250 mg Tablet Active 250 MG PO Every morning March 20, 2023 12:00am Start: 03-20-2023 take 1 tablet by mouth once da jose francisco Magnesium 250 mg Tablet Active 250 MG PO Daily March 20, 2023 12:00am Start: 03-20-2023 take 250 mg by mouth once catracho y Magnesium Active 250 MG PO Daily March 20, 2023 12:00am take 1 tablet by mouth once catracho y Magnesium 250 MG 1 tablet with a meal Orally Once a day Active magnesium gluconate 550 mg oral tablet (2 sources) magnesium glucon ate 550 MG tablet Take 30 mg by mouth in the morning. Active magnesium oxide 400 mg oral tablet [...] on above: Take 2 tablets by mo [facility] once daily for 14 days. metFORMIN hydrochloride 1000 mg oral tablet (20 sources) Biguanide Start: 03-20-2023 take 1 tablet by mouth once daily Metformin 1,000 mg tablet Active 1000 MG PO Daily March 20, 2023 12:00am Start: 03-07-2023 take 1 tablet by wayne twice daily Metformin 1,000 mg tablet Active 1000 MG PO Twice daily March 20, 2023 12:00am Complies with drug therapy Start: 04-12-2022 take 2 tablets by mo [facility] at mealtime metFORMIN (Glucophage) 1000 MG tablet Take 2,000 mg by mouth in the morning. Take with meals. 07/11/2022 Active Comment on above: Take 1,000 mg by wayne two times a day. 24 hr metoprolol succinate 50 mg extended release oral tablet (20 sources) beta-Adrenergic Kofi Start: 09-24-2024 take 1 tablet by mouth every twenty-four hours Metoprolol Succinate 50 mg tablet extended release 24 hr Active 50 MG PO September 24, 2024 12:00am Start: 08-02-2023 take 2 tablets by mo [facility] twice daily Metoprolol Succinate 50 mg tablet extended release 24 hr Active 25 MG PO Twice daily September 24, 2024 12:00am Complies with drug therapy Comment on above: Take 0.5 tablets by mouth two times a day. Miscellaneous Medical [facility] (4 sources[place] Start: 11-18-2024 Miscellaneous Medical Supply misc Active 1 EACH MISCELLANE .Three TIMES A WEEK November 18, 2024 12:00am WOUND VAC NEEDS TO BE CHANGED THREE TIMES A WEEK BY HOME HEALTH CARE NURSE Complies with drug therapy Start: 11-06-2024 Miscellaneous Medical Supply misc Active 1 EACH MISCELLANE .3 days a week November 06, 2024 12:00am Patient needs nurse visit for wound changes increased to three times a week Complies with drug therapy Start: 11-06-2024 Miscellaneous Medical Supply misc Active 1 EACH MISCELLANE .3 days a week November 06, 2024 12:00am Patient needs nurse visit for wound changes increased to three times a week Oxybutinin XL 5mg (3 sources) Oxybutinin XL 5m g 2 tablets orally at night Active oxybutynin chloride 5 mg oral tablet (20 sources) Cholinergic Muscarinic Antagonist Start: 03-20-2023 take 1 tablet by mouth twice daily Oxybutynin Chloride 5 mg Tablet Active 5 MG PO Twice daily March 20, 2023 12:00am Complies with drug therapy Start: 02-10-2021 take 2 tablets by mo [facility] once daily oxybutynin (Ditropan) 5 MG tablet TAKE 2 TABLET BY MOUTH ONCE A DAY 01/11/2022 Active oxyCODONE hydrochloride 5 mg oral tablet (10 sources) Opioid Agonist Start: 10-20-2024 End: 11-13-2024 take 2 tablets by mouth every four hours as needed for pain Oxycodone 5 mg Tablet Active 10 MG PO Every 4 hours as needed for Pain Scale 6 - 10 10 7 November 13, 2024 Complies with drug therapy Start: 08-02-2023 End: 08-09-2023 take 1 tablet by mouth every six hours as needed for pain oxyCODONE IR (ROXICODONE) 5 mg immediate release tablet Indications: Postoperative pain Take 1 tablet by mouth every 6 hours as needed (for moderate to severe surgical pain) for up to 7 days. 28 tablet 0 08/02/2023 08/09/2023 Active Comment on above: Take 1 tablet by [facility] every 6 hours as needed (for moderate to severe surgical pain) for up to 7 days. polyethylene glycol 3350 [id number] mg powder for oral solution (2 sources) Osmotic Laxative Start: 12-04-19 take 17 g by mouth once daily as needed for constipation ClearLax 17 GM/SCOOP powder TAKE 17 G BY MOUTH DAILY NEEDED (CONSTIPATION) FOR UP TO 10 DAYS. 12/03/2022 Active microencapsulated potassium chloride 20 meq extended release oral tablet (7 sources) Start: 08-02-19 End: 08-16-19 take 1 tablet by mouth twice daily, then take 1 tablet by mouth once daily potassium chloride ER (KLOR-CON) 20 mEq tablet Take 1 tablet by mouth two times a day for 4 days, THEN 1 tablet once daily for 10 days. 18 tablet 0 08/02/2023 08/16/2023 Active potassium chlori de CR (Klor-Con M10) 10 MEQ ER tablet Take by mouth Daily. Active Comment on above: Take 1 tablet by wayne th two times a day for 4 days, THEN 1 tablet once daily for 10 days. potassium gluconate 2.5 meq oral tablet (15 sources) Start: 03-20-2023 take 1 tablet by mouth once daily Potassium Gluconate 595 mg (99 mg) Tablet Active 595 MG PO Daily March 20, 2023 12:00am Complies with drug therapy take 1 capsule by mo [facility] once daily at mealtime Potassium Gluconate 595 MG 1 capsule wit h food Orally Once a day Active take 1 tablet by mouth once catracho y Potassium Gluconate 595 (99 K) MG Oral Tablet TAKE 1 TABLET DAILY. Quantity: 0 Refills: 0 Ordered: 19-Jul-2022 DO Active probiotic (3 sources) probiotic as directed Active rosuvastatin calcium 5 mg oral tablet (7 sources) HMG-CoA Reductase Inhibitor take 2.5 mg by mouth once daily rosuvastatin (CRESTOR) 5 mg tablet Take 2.5 mg by mouth once daily. Active traMADol hydrochloride 50 mg oral tablet (2 sources) Opioid Agonist Start: 3 End: traMADol (Ultram) 50 MG tablet TAKE 1 TO 2 TABLETS BY MOUTH EVERY 6 TO 8 HOURS NEEDED FOR PAIN FOR UP TO 10 DAYS 12/05/2022 12/31/2024 Discontinued Trospium (14 sources) Cholinergic Muscarinic Antagonist trospium chloride (TROSPIUM ORAL) Take by mouth once daily. Active trospium chlorid e (TROSPIUM ORAL) Take by mouth once daily. 0 Active 24 hr venlafaxine 75 mg extended release oral capsule (20 sources) Serotonin and Norepinephrine Reuptake Inhibitor Start: 07-11-2022 End: 12-31-2024 take 1 tablet by mouth every twenty-four hours in the morning venlafaxine XR (Effexor XR) 150 MG 24 hr tablet Take 150 mg by mouth in the morning. 07/11/2022 12/31/2024 Discontinued Start: 04-12-2022 take 1 capsule by [facility] once daily at mealtime venlafaxine XR (Effexor XR) 75 MG 24 hr capsule TAKE 1 CAPSULE BY MOUTH EVERY DAY WITH FOOD FOR 90 DAYS 10/07/2023 Active take 1 tablet by wayne th every twenty-four hours Venlafaxine HCl 75 MG 1 tablet with food Orally Once a day Active Comment on above: Take 1 capsule by mo [facility] once daily. Completed/Discontinued Medications Medication Drug Class(es) Dates Sig (Normalized) Sig (Original) amoxicillin 875 mg / clavulanate 125 mg oral tablet (1 source) Penicillin-class Antibacterial Start: 11-18-2024 End: 12-03-2024 take 1 tablet by mouth twice daily Amoxicillin-Pot Clavulanate 875-125 mg tablet Discontinued 1 TAB PO Twice daily 20 November 18, 2024 12:00am December 03, 2024 11:40am ciprofloxacin 500 mg oral tablet (1 source) Quinolone Antimicrobial Start: 11-23-2024 End: 12-03-2024 take 1 tablet by mouth twice daily Ciprofloxacin Hcl 500 mg tablet Discontinued 500 MG PO Twice daily 14 November 23, 2024 12:00am December 03, 2024 11:40am ibuprofen 800 mg oral tablet (20 sources) Nonsteroidal Anti-inflammatory Drug Start: 03-20-2023 End: 03-26-2023 take 1 tablet by mouth once daily Ibuprofen (Motrin) 800 mg Tablet Discontinued 800 MG PO Daily March 20, 2023 12:00am March 26, 2023 1:03pm Start: 08-16-2021 take 1 tablet by wayne four times daily as needed IBU 800 MG tablet Take 800 mg by mouth 4 (four) times a day as needed. 12/06/2022 Active take 1 tablet by wayne every eight hours at mealtime as needed Ibuprofen 800 MG 1 tablet with food or milk as needed Orally every 8 hrs Not-Taking Comment on above: Take 800 mg by mouth four times a day as needed. L.Acid-L.Rham-B.Br chester-S.Therm 3 billion cell Tablet,Chewable (6 sources) Start: 3 End: 5 take 3 tablets by mouth two times weekly L.Acid-L.Rham-B.Brev e-S.Therm 3 billion cell Tablet,Chewable Discontinued 1 TAB PO Twice a Week March 20, 2023 12:00am September 24, 2024 2:04pm mupirocin 0.02 mg/mg topical ointment (3 sources) RNA Synthetase Inhibitor Antibacterial Start: 4 mupirocin (BACTROBAN) 2 % ointment Apply a small amount in each nostril using a cotton swab twice the day before surgery and once the morning of surgery. 22 g 0 07/17/2023 Suspended Start: 11-12-2022 End: 12-31-2024 mupirocin (Bactroban) 2 % oi ntment APPLY TO AFFECTED AREA TWICE A DAY FOR 5 DAYS 11/12/2022 12/31/2024 Discontinued Comment on above: Apply a small amount [...] 1 Patch as dir ected once daily. rivaroxaban 2.5 mg oral tablet (20 sources) Factor Xa Inhibitor Start: 06-06-20 End: 12-24-19 take 1 tablet by mouth once daily in the morning Rivaroxaban (Xarelto) 2.5 mg tablet Discontinued 2.5 MG PO Every morning September 24, 2024 12:00am December 23, 2024 9:07am Start: 03-20-2023 End: 03-26-2023 Rivaroxaban (Xarelto) 2.5 mg tablet Discontinued 0 .ROUTE .COMPLEX March 20, 2023 12:00am March 26, 2023 1:03pm patient stopped medication 03/14/23, plans to start after surgery oct 6 Start: 03-06-2023 take 1 tablet by wayne th twice daily rivaroxaban (XARELTO) 2.5 mg tablet Take 1 tablet by mouth two times a day. 90 tablet 2 01/16/2024 Active Comment on above: Take 2.5 mg by mouth two times a day. sulfamethoxazole 800 mg / trimethoprim 160 mg oral tablet (3 sources) Dihydrofolate Reductase Inhibitor Antibacterial, Sulfonamide Antimicrobial Start: 11-10-19 End: 12-24-19 take 1 tablet by mouth twice daily Sulfamethoxazole-Tr imethoprim (Bactrim Ds) 800-160 mg tablet Discontinued 1 TAB PO Twice daily 12 04November 09, 2024 12:00am December 23, 2024 9:08am varenicline 1 mg oral tablet (18 sources) Partial Cholinergic Nicotinic Agonist Start: 12-12-19 take 1 tablet by mouth every twelve hours varenicline (CHANTIX) 1 mg tablet Take 1 tablet by mouth every 12 hours. 0 03/09/2023 Active Start: 12-11-2022 End: 03-26-2023 take 1 tablet by mouth once daily Varenicline Tartrate 1 mg tablet Discontinued 1 MG PO Daily March 20, 2023 12:00am March 26, 2023 1:06pm Comment on above: Take 1 tablet by [...] Translations: [ATRIAL PREMATURE DEPOLARIZATION] Onset: 05-26-2022 Chronic Cataract (2 sources) After-cataract of bilateral eyes; Translations: [Other secondary cataract, bilateral] 12-31-2024 Chronic Chronic ulcer of skin (8 sources) Non-pressure chronic ulcer of skin of other sites with fat layer exposed; Translations: [Non-pressure chronic ulcer of right heel and midfoot limited to breakdown of skin] Onset: 07-10-2022 11-05-2024 Chronic Coagulation and hemorrhagic disorders (20 sources) Thrombocytopenic disorder; Translations: [Thrombocytopenia, unspecified] Onset: 08-01-2023 08-01-2023 Chronic Complications of surgical procedures or medical care (14 sources) Complication of procedure; Translations: [Complication of surgical and medical care, unspecified, initial encounter] Onset: 09-17-2024 09-17-2024 Episodic Coronary atherosclerosis and other heart disease (20 sources) Multi vessel coronary artery disease; Translations: [Atherosclerotic heart disease of [place] coronary artery without angina pectoris] Onset: 06-14-2023 04-26-2023 Chronic Coronary atherosclerosis and other heart disease (1 source) Past history of procedure; Translations: [Coronary angioplasty status] 06-03-2023 Episodic Diabetes mellitus with complications (11 sources) Type [...] D/O SINGLE EPIS UNS] Onset: 06-02-2022 Chronic Nonspecific chest pain (8 sources) Chest pain, unspecified; Translations: [Chest wall pain] Onset: 05-28-2022 Episodic Occlusion or stenosis of precerebral arteries (20 sources) Bilateral stenosis of carotid arteries; Translations: [Occlusion and stenosis of bilateral carotid arteries] Onset: 07-29-2023 07-29-2023 Chronic Other aftercare (6 sources) Surgical follow-up; Translations: [Encounter for follow-up examination after completed treatment for conditions other than malignant neoplasm] 08-01-2023 Episodic Other aftercare (2 sources) Encounter for surgical aftercare following surgery on the circulatory system; Translations: [Aftercare following surgery of the circulatory system, NEC] 11-05-2024 Episodic Other circulatory disease (1 source) History of insertion of iliac stent; Translations: [Presence of other vascular implants and grafts] 06-03-2023 Chronic Other circulatory disease (5 sources) Other specified symptoms and signs involving the circulatory and respiratory systems; Translations: [OTH SPEC SX SIGNS INVLV CIRC RS] Onset: 05-24-2022 Episodic Other circulatory disease (1 source) Abnormal peripheral pulse; Translations: [Other specified symptoms and signs involving the circulatory and respiratory systems] 04-28-2024 Episodic Other injuries and conditions due to external causes (1 source) Other injury of unspecified body region, initial encounter; Translations: [Other injury of unspecified body region, initial encounter] Onset: 11-05-2024 Episodic Other lower respiratory disease (2 sources) Dyspnea; Translations: [Shortness of breath] 05-28-2023 Episodic Other nervous system disorders (4 sources) Postoperative pain ; Translations: [Other acute postprocedural pain] 11-02-2024 Episodic Other nervous system disorders (1 source) Other acute postprocedural pain; Translations: [Chest wall pain following surgery] Onset: 09-17-2024 Episodic Other nutritional; endocrine; and metabolic disorders (4 sources) Obesity; Translations: [Obesity, unspecified] Chronic Other nutritional; endocrine; and metabolic disorders (20 sources) Morbid obesity; Translations: [Morbid (severe) obesity due to excess calories] Onset: 05-13-2023 05-13-2023 Chronic Other nutritional; endocrine; and metabolic disorders (20 sources) Obese class I; Translations: [Obesity, unspecified] Onset: 08-01-2023 08-01-2023 Chronic Other screening for suspected conditions (not mental disorders or infectious disease) (1 source) Imaging result abnormal; Translations: [Abnormal findings on diagnostic imaging of other specified body structures] 08-13-2023 Chronic Other screening for suspected conditions (not mental disorders or infectious disease) (9 sources) Encounter for screening mammogram for malignant [...] [Pain, unspecified] Onset: 09-27-2023 Episodic Substance-related disorders (6 sources) Nicotine dependence, unspecified, uncomplicated; Translations: [Nicotine dependence, cigarettes, uncomplicated] Onset: 05-11-2022 Chronic Transient cerebral ischemia (2 sources) Transient cerebral ischemia; Translations: [Transient cerebral ischemic attack, unspecified] Onset: 01-16-2024 10-10-2023 Chronic Unclassified (3 sources) CONTACT W/AND (SUSP) EXPOS COVID-19; Translations: [CONTACT W/AND (SUSP) EXPOS COVID-19] Onset: 01-31-2022 Unclassified (4 sources) A [facility] screening has identified you as FRAIL or AT RISK FOR FRAILTY. This puts you at a higher risk for infection, illness, falls, and other injuries. Here are four ways to help you reduce your risk of frailty: 1. IDENTIFY EARLY SIGNS OF FRAILTY Discuss contributing factors and concerns with your doctor 2. BE ACTIVE Walking and light strengthening exercises will help reduce weakness 3. EAT WELL Aim for three healthy meals a day that are high in protein 4. THINK POSITIVE Keep your mind active by being sociable and continuing to learn References: Stay Strong: Four Ways to Beat the Frailty Risk https://www.[facility].org/health/welln ate-alc-hbymchxcud/sta x-ivzkpe-yeyp-ways-to- twfd-aqh-kib ilty-risk 10-20-2024 Unclassified (2 sources) Please follow up in 2-4 weeks at the office. Unclassified (1 source) Follow-up in the office in 2 to 3 weeks. Please call for appointment. Please call with any questions or concerns. Please stop smoking. Past or Other Problems Problem Classification Problem Date Documented Date Episodic/Chronic Acute posthemorrhagic anemia (20 sources) Acute posthemorrhagic anemia; Translations: [Acute posthemorrhagic anemia] Onset: 08-01-2023 08-01-2023 Episodic Administrative/social admission (20 sources) Discharge status; Translations: [Encounter for administrative examinations, unspecified] Onset: 07-17-2023 07-17-2023 Episodic Fluid and electrolyte disorders (20 sources) Hypo-osmolality and or hyponatremia; Translations: [Hypo-osmolality and hyponatremia] Onset: 08-02-2023 08-02-2023 Episodic Other connective tissue disease (1 source) [...] [Solitary pulmonary nodule] Onset: 07-12-2023 07-12-2023 Episodic Residual codes; unclassified (1 source) Family [...] Test Name Value Interpretation Reference Range Facility [facility] 11-25-2024 [facility] Telephone (PMNA11) -- ELIZABETH QUEZADA ([id number]) 1960 F Date Time Provider Department 11/25/24 HILARY OTT [id number] During your visit today, we recorded the following information about you: Hilary Ott RN 11/27/2024 8:09 AM Addendum 11/25/24: LVM asking patient to schedule Dr. Reyes with CT Chest latter part of January. Left my number. 11/27/24: Staff msg from NIKOLAY Mackey. She called patient to schedule visit. Patient declined saying she will call when she's having problems. Dr. Reyes is aware. Hilary Ott RN Respiratory [facility] Allergies As of Date: 11/25/2024 Noted Allergy Reaction TETRACYCLINE 09/27/2022 16 - Unknown 8 - GI Upset Januvia (SITAGLIPTIN) 06/24/2019 16 - Unknown MICONAZOLE 01/06/2024 9 - Itching 7 - Swelling ROSUVASTATIN 06/24/2019 16 - Unknown ALLERG XT,D.FARINAE-D.PTERONYS 07/19/2022 9 - Itching CAT HAIR STANDARDIZED ALLERGENIC *09/27/2022 9 - Itching Comments: sneezing HOUSE DUST 07/19/2022 9 - Itching Date Reviewed: 09/17/2024 Reviewed by: Venus Carl MA - Fully Assessed Reason for Visit: OV AND CT PULM [Other] Prescriptions as of 11/27/2024 - rosuvastatin (CRESTOR) 5 mg tablet Take 2.5 mg by mouth once daily. - oxybutynin (DITROPAN) 5 mg tablet two times a day. - trospium chloride (TROSPIUM ORAL) Take by mouth once daily. - rivaroxaban (XARELTO) 2.5 mg tablet Take 1 tablet by mouth two times a day. - lisinopril (ZESTRIL) 20 mg tablet Take 1 tablet by mouth once daily. - TRULICITY 0.75 mg/0.5 mL pen injector Inject 0.75 mg subcutaneously one time a week. Patient should start on August 23, 2023. - VENTOLIN HFA 90 mcg/actuation inhaler Inhale 2 Puffs as instructed every 6 hours as needed for wheezing/shortness of breath. - aspirin 81 mg chewable tablet Take 1 tablet by mouth once daily. - clopidogrel (PLAVIX) 75 mg tablet Take 1 tablet by mouth once daily. - ezetimibe (ZETIA) 10 mg tablet Take 1 tablet by mouth once daily. - venlafaxine ER (EFFEXOR XR) 75 mg 24 hr capsule Take 1 capsule by mouth once daily. - metoprolol succinate ER (TOPROL XL) 50 mg 24 hr tablet Take 0.5 tablets by mouth two times a day. - docusate sodium (COLACE) 100 mg capsule Take 1 capsule by mouth two times a day. - JARDIANCE 10 mg tablet Take 1 tablet by mouth once daily. - metFORMIN (GLUCOPHAGE) 1,000 mg tablet Take 1,000 mg by mouth two times a day. Problem List As Of Date 11/25/2024 Noted Resolved Morbid obesity (HCC) [E66.01] 05/13/2023 Atherosclerosis of [place] arteries of extremity*06/14/2023 Essential hypertension [I10] 06/14/2023 Type 2 diabetes mellitus without complication, *06/14/2023 CAD (coronary artery disease) [I25.10] 06/14/2023 Atherosclerosis of [place] arteries of left leg *06/18/2023 Atherosclerosis of [place] arteries of extremiti*07/02/2023 Coronary artery disease involving [place] pack*07/02/2023 Lung nodule [R91.1] 07/12/2023 Discharge planning issues [Z75.8] 07/17/2023 Pre-op testing [Z01.818] 07/17/2023 Carotid stenosis, asymptomatic, bilateral [I65.*07/29/2023 CAD, multiple vessel [I25.10] 07/29/2023 Encounter for support and coordination of trans*08/01/2023 Hyperlipidemia LDL goal <70 [E78.5] 08/01/2023 PVD (peripheral vascular disease) ([facility]) [I73.9] 08/01/2023 ABLA (acute blood loss anemia) [D62] 08/01/2023 Thrombocytopenia ([facility]) [D69.6] 08/01/2023 Anxiety and depression [F41.9, F32.A] 08/01/2023 History of smoking [Z87.895] 08/01/2023 Primary hypertension [I10] 08/01/2023 Obesity, Class I, BMI 30-34.9 [E66.811] 08/01/2023 Hypo-osmolality and hyponatremia [E87.1] 08/02/2023 Encounter Status:Closed by HILARY OTT on 11/25/24 Normal [facility] Pathology study report docum entOrdered By: Chavez Riley on 11-17-2024 Pathology study [facility] Other Phone: Aerobic Cultureon 11-13-2024 Aerobic Culture Comment right groin wound ORGANISM: Citrobacter koseri (O:CITKOS) Quantity of Growth Light Growth Comment right groin wound ORGANISM: Prevotella disiens (O:PREDIS) Quantity of Growth Light Growth Please contact Microbiology within 7 days if anaerobic susceptibilities are needed. Comment right groin wound Gram Stain Result Rare White Blood Cells No Bacteria Seen Aerobic MARIANELA Charge (NMIC56) SUSCEPTIBILITY ORGANISM: O:CITKOS ANTIBIOTIC INTERPRETATION MARIANELA Amikacin S <16 Amoxacillin/K Clavulanate S <8 Ampicillin/Sulbactam S <4 Aztreonam S <4 Cefazolin S <2 Cefepime S <2 Ceftazidime S <1 Ceftazidime/Avibactam S <4 Ceftolozane/Tazobactam S <2 Ceftriaxone S <1 Cefuroxime S <4 Ciprofloxacin S <0.25 Ertapenem S <0.5 Gentamicin S <2 Levofloxacin S <0.5 Meropenem S <1 Meropenem/Vaborbactam S <2 Piperacillin/Tazobactam S <8 Tetracycline S <4 Tigecycline S <2 Tobramycin S <2 Trimethoprim/Sulfamethoxaz ole S <0.5 S = SUSCEPTIBLE I = INTERMEDIATE R = RESISTANT BLANK = DATA NOT AVAILABLE, OR DRUG NOT ADVISABLE OR TESTED R* = RESISTANCE DUE TO EXTENDED SPECTRUM BETA-LACTAMASES ESBL = EXTENDED SPECTRUM BETA-LACTAMASE TFG = THYMIDINE-DEPENDENT STRAIN XIAO = BETA-LACTAMASE POSITIVE IB = INDUCIBLE BETA-LACTAMASE. APPEARS IN PLACE OF 'S' WITH SPECIES KNOWN TO POSSESS INDUCIBLE BETA-LACTAMASES. POTENTIALLY THEY MAY BECOME RESISTANT TO ALL B-LACTAM DRUGS. PERFORMED BY: [place] [address] PATHOLOGIST SYSTEM INTEGRATION ENGINEER CHRISTIANA BRIZUELA M.D. Normal [facility] Comment on above: Performed By: #### A ERC #### [facility] [address] Aerobic cultureOrdered By: Sara Barclay on 11-13-2024 Bacteria identified Aer cx Nom (Unsp spec) Citrobacter koseri Abnormal [facility] Anaerobic cultureOrdered By: Gonzalez Barclay on 11-13-2024 Bacteria identified Anaer cx Nom (Unsp spec) Prevotella disiens Abnormal [facility] Capillary blood glucose vladimir urement by glucometer (mass/volume)Ordered By: Gonzalez Barclay on 11-13-2024 Glucose [Mass/Vol] 130 mg/dL Normal [facility] Comment on above: Random Glucose Refer ence Range is dependent on time and content of last meal. Glucose of more than 200 mg/dL in a nonstressed, ambulatory subject supports the diagnosis of Diabetes Mellitus. Result Comment: [place] Glucose Reference Range is dependent on time and content of last meal. Glucose of more than 200 mg/dL in a nonstressed, ambulatory subject supports the diagnosis of Diabetes Mellitus. Performed By: #### C BC, CMP #### [facility] [address] [place] [address] [place] Glucose Glucometer (BldC) [M ass/Vol]Ordered By: Gonzalez Barclay on 11-13-2024 Glucose [Mass/Vol] Capillary blood gluc ose measurement by glucometer (mass/volume) [facility] Comment on above: Random Glucose Refer ence Range is dependent on time and content of last meal. Glucose of more than 200 mg/dL in a nonstressed, ambulatory subject supports the diagnosis of Diabetes Mellitus. Glucose Poct Glucometerson 0 11-13-2024 Commemt1 Glu2: Cleaned Meter Normal [facility] Comment on above: Result Comment: PERF ORMED BY: [facility] [address] [facility] [place] [id number] PATHOLOGIST SYSTEM INTEGRATION ENGINEER JACQUELIN NAIK M.D. Performed By: #### C BC, CMP #### [facility] [address] [place] [id number] [facility] Gram stain microscopyOrdered By: Gonzalez Barclay on 11-13-2024 Microscopic observation Gram stain Nom (Unsp spec) [facility] Cuauhtemoc 11-13-2024 L ------ Specimen: [id number] Received: 11/13/24 Status: DENNY Lloyd Num: [id number] Spec Type: Surgical Subm Dr: Gonzalez Barclay MD Tissues: A Lymph Node - Biopsy (Needle or Incisional) (RT GROIN LYMPH NODE) Procedures: HE/Madeleine, Gross/Micro L4 Age/ Patient Sex Location Account Attending Physician Elizabeth Quezada/F [place] [id number] Gonzalez Barclay MD SPEC NUM: [id number] RECD: 11/13/24 STATUS: DENNY LLOYD NUM: [id number] DARION: 11/13/[address]: Gonzalez Barclay MD ENTERED: 11/13/[address] [facility] [address]: JIMI TYPE: Surgical DEPT: S ENTERED BY: [id number] RECV BY: [id number] ORDERED: HE/2, Gross/Micro L4 ORDERED: HE/2, Gross/Micro L4 Pathological Diagnosis Right groin lesion, excision: - Necrotic tissue with fat necrosis. - No lymph node present. Clinical Information Right groin postop wound infection Gross Description Received in formalin labeled with the patients name, date of , and Right groin lymph node is a kate-pink to green, rubbery 1.5 x 1.2 x 0.4 cm lymph node. The specimen is serially sectioned and entirely submitted in a single cassette. (1, ns, [id number]) J Microscopic Description Microscopic examination is performed. CPT Codes 81352 Specimen: [id number] Received: 11/13/24 Status: DENNY Lloyd Num: [id number] Spec Type: Surgical Subm Dr: Gonzalez Barclay MD Tissues: A Lymph Node - Biopsy (Needle or Incisional) (RT GROIN LYMPH NODE) Procedures: HE/2, Gross/Micro L4 Patient: Elizabeth Quezada [id number] (Continued) Signed (signature on file) Chavez Riley MD 11/17/24 0846 Normal [facility] No Panel InformationOrdered By: Gonzalez Barclay on 11-13-2024 Bedside Glucose Comment Glu2: cleaned meter [facility] Aerobic culture with sensiti vityOrdered By: Milena Hardin on 11-05-2024 Bacteria identified Aer cx Nom (Unsp spec) Citrobacter koseri Abnormal [facility] Bacteria identified Aer cx Nom (Unsp spec) Morganella morganii Abnormal [facility] Bacteria identified Aer cx Nom (Unsp spec) Streptococcus anginosus Abnormal [facility] Bacteria identified Aer cx N om (Unsp spec)Ordered By: Milena Hardin on 11-05-2024 Superficial Wound Culture Abnormal [facility] Superficial Wound Culture Abnormal [facility] Superficial Wound Culture [facility] Superficial Wound Cultureon 11-05-2024 Superficial Wound Culture Right groin drainage ORGANISM: Citrobacter koseri (O:LOWELL) Quantity of Growth Moderate Growth ORGANISM: Morganella morganii (O:JUANIS) Quantity of Growth Light Growth ORGANISM: Streptococcus anginosus (O:LETICIA) Comments Organism Not Routinely Tested for Susceptibilities Quantity of Growth Light Growth Aerobic MARIANELA Charge (NMIC56) SUSCEPTIBILITY ORGANISM: O:SUES ANTIBIOTIC INTERPRETATION MARIANELA Amikacin S <16 Amoxacillin/K Clavulanate S <8 Ampicillin/Sulbactam S <4 Aztreonam S <4 Cefazolin S <2 Cefepime S <2 Ceftazidime S <1 Ceftazidime/Avibactam S <4 Ceftolozane/Tazobactam S <2 Ceftriaxone S <1 Cefuroxime S <4 Ciprofloxacin S <0.25 Ertapenem S <0.5 Gentamicin S <2 Levofloxacin S <0.5 Meropenem S <1 Meropenem/Vaborbactam S <2 Piperacillin/Tazobactam S <8 Tetracycline S <4 Tigecycline S <2 Tobramycin S <2 Trimethoprim/Sulfamethoxaz ole S <0.5 Aerobic MARIANELA Charge (NMIC56) SUSCEPTIBILITY ORGANISM: O:JESUR ANTIBIOTIC INTERPRETATION MARIANELA Amikacin S <16 Ampicillin/Sulbactam R >16 Aztreonam IB <4 Cefepime S <2 Ceftazidime IB <1 Ceftazidime/Avibactam S <4 Ceftolozane/Tazobactam S <2 Ceftriaxone IB <1 Ciprofloxacin S <0.25 Ertapenem S <0.5 Gentamicin S <2 Levofloxacin S <0.5 Meropenem S <1 Meropenem/Vaborbactam S <2 Piperacillin/Tazobactam IB <8 Tetracycline S <4 Tobramycin S <2 Trimethoprim/Sulfamethoxaz ole S <0.5 S = SUSCEPTIBLE I = INTERMEDIATE R = RESISTANT BLANK = DATA NOT AVAILABLE, OR DRUG NOT ADVISABLE OR TESTED R* = RESISTANCE DUE TO EXTENDED SPECTRUM BETA-LACTAMASES ESBL = EXTENDED SPECTRUM BETA-LACTAMASE TFG = THYMIDINE-DEPENDENT STRAIN XIAO = BETA-LACTAMASE POSITIVE IB = INDUCIBLE BETA-LACTAMASE. APPEARS IN PLACE OF 'S' WITH SPECIES KNOWN TO POSSESS INDUCIBLE BETA-LACTAMASES. POTENTIALLY THEY MAY BECOME RESISTANT TO ALL B-LACTAM DRUGS. PERFORMED BY: [place] [address] PATHOLOGIST SYSTEM INTEGRATION ENGINEER JACQUELIN NAIK M.D. Normal [facility] Comment on above: Performed By: #### C USUP #### [address] Basic Metabolic Panelon 04-2 Anion gap [Moles/Vol] Not performed Normal 6.0-15.0 [facility] Comment on above: Performed By: #### C BC, CMP #### [address] Creatinine Clr Calc Pharmacy 71.99 Normal [facility] Comment on above: Result Comment: PERF ORMED BY: [place] [address] PATHOLOGIST SYSTEM INTEGRATION ENGINEER JACQUELIN NAIK M.D. Performed By: #### C BC, CMP #### [address] GFR/1.73 sq M.predicted MDRD (S/P/Bld) [Vol rate/Area] mL/min/{1.73_m2} Normal [facility] Comment on above: Performed By: #### C BC, CMP #### [address] Potassium Normal 3.5-5.1 [facility] Comment on above: Result Comment: Spec imen hemolyzed, redraw requested Performed By: #### C BC, CMP #### [address] [place] [address] [place] Basophils Auto (Bld) [#/Vol] Ordered By: Gonzalez Barclay on 10-20-2024 Basophils (Bld) [#/Vol] Automated basophil count 0.0-0.2 [facility] Basophils [#/volume] in Bloo d by Automated countOrdered By: Gonzalez Barclay on 10-20-2024 Basophils (Bld) [#/Vol] 0.0 10*3/uL Normal 0.0-0.2 [facility] Comment on above: Result Comment: PERF ORMED BY: [place] [address] PATHOLOGIST SYSTEM INTEGRATION ENGINEER JACQUELIN NAIK M.D. Performed By: #### C BC, CMP #### [place] [address] [place] Basophils/100 WBC Auto (Bld) Ordered By: Gonzalez Barclay on 10-20-2024 Basophils/100 WBC (Bld) Automated basophil % . [facility] Basophils/100 leukocytes in Blood by Automated countOrdered By: Gonzalez Barclay on 10-20-2024 Basophils/100 WBC (Bld) 0.3 % Normal . [facility] Comment on above: Performed By: #### C BC, CMP #### [address] Calcium [Mass/volume] in Ser um or PlasmaOrdered By: Gonzalez Barclay on 10-20-2024 Calcium [Mass/Vol] Calcium [Mass/volume ] in Serum or Plasma 8.6-10.3 [facility] Calcium [Mass/Vol] 9.2 mg/dL Normal 8.6-10.3 [facility] Comment on above: Performed By: #### C BC, CMP #### [place] [address] [place] Carbon dioxide, total [Moles /volume] in Serum or PlasmaOrdered By: Gonzalez Barclay on 10-20-2024 CO2 [Moles/Vol] Carbon dioxide, tota l [Moles/volume] in Serum or Plasma 21.0-31.0 [facility] CO2 [Moles/Vol] 27.7 mmol/L Normal 21.0-31.0 [facility] Comment on above: Performed By: #### C BC, CMP #### [address] Chloride [Moles/volume] in S radha or PlasmaOrdered By: Gonzalez Barclay on 10-20-2024 Chloride [Moles/Vol] Chloride [Moles/vol ume] in Serum or Plasma 98-107 [facility] Chloride [Moles/Vol] 104 mmol/L Normal 98-107 [facility] Comment on above: Performed By: #### C BC, CMP #### [address] Complete Blood Count Auto Di ffon 10-20-2024 Mean Corpuscular HGB Conc 33.9 g/dL Normal 32.0-35.0 [facility] Comment on above: Performed By: #### C BC, CMP #### [address] NRBC% 0.1 /100{WBC} Normal 0-0.5 [facility] Comment on above: Performed By: #### C BC, CMP #### [address] Creatinine [Mass/volume] in Serum or PlasmaOrdered By: Gonzalez Barclay on 10-20-2024 Creatinine [Mass/Vol] Creatinine [Mass/v olume] in Serum or Plasma 0.60-1.20 [facility] Creatinine [Mass/Vol] 0.73 mg/dL Normal 0.60-1.20 [facility] Comment on above: Performed By: #### C BC, CMP #### [address] Eosinophils Auto (Bld) [#/Vo l]Ordered By: Gonzalez Barclay on 10-20-2024 Eosinophils (Bld) [#/Vol] Automated eosinophil count 0.0-0.45 [facility] Eosinophils [#/volume] in Bl ood by Automated countOrdered By: Gonzalez Barclay on 10-20-2024 Eosinophils (Bld) [#/Vol] 0.2 10*3/uL Normal 0.0-0.45 [facility] Comment on above: Performed By: #### C ANTHONY, CMP #### [address] Eosinophils/100 WBC Auto (Bl d)Ordered By: Gonzalez Barclay on 10-20-2024 Eosinophils/100 WBC (Bld) Automated eosinophil % . [facility] Eosinophils/100 leukocytes i n Blood by Automated countOrdered By: Gonzalez Barclay on 10-20-2024 Eosinophils/100 WBC (Bld) 2.1 % Normal . [facility] Comment on above: Performed By: #### C ANTHONY, CMP #### [address] Erythrocyte distribution wid th Auto (RBC) [Ratio]Ordered By: Gonzalez Barclay on 10-20-2024 Erythrocyte distribution width (RBC) [Ratio] Erythrocyte distribution width [Ratio] by Automated count 11.9-15.3 [facility] Erythrocyte distribution wid th [Ratio] by Automated countOrdered By: Gonzalez Barclay on 10-20-2024 Erythrocyte distribution width (RBC) [Ratio] 13.0 % Normal 11.9-15.3 [facility] Comment on above: Performed By: #### C ANTHONY, CMP #### [address] Erythrocytes [#/volume] in B lood by Automated countOrdered By: Gonzalez Barclay on 10-20-2024 RBC (Bld) [#/Vol] 3.44 10*6/uL Low 3.60-5.00 [facility] Comment on above: Performed By: #### C ANTHONY, CMP #### [place] [address] [place] Glucose [Mass/volume] in Ser um or PlasmaOrdered By: Gonzalez Barclay on 10-20-2024 Glucose [Mass/Vol] Glucose [Mass/volume ] in Serum or Plasma High 70-100 [facility] Comment on above: ADA recommended refe rence rangeRandom Glucose Reference Range is dependent on time and content of last meal. Glucose of more than 200 mg/dL in a nonstressed, ambulatory subject supports the diagnosis of Diabetes Mellitus. Glucose [Mass/Vol] 135 mg/dL High 70-100 [facility] Comment on above: ADA recommended refe rence rangeRandom Glucose Reference Range is dependent on time and content of last meal. Glucose of more than 200 mg/dL in a nonstressed, ambulatory subject supports the diagnosis of Diabetes Mellitus. Result Comment: [place] [facility] Glucose Reference Range is dependent on time and content of last meal. Glucose of more than 200 mg/dL in a nonstressed, ambulatory subject supports the diagnosis of Diabetes Mellitus. ADA recommended reference range Performed By: #### C BC, CMP #### [address] Hematocrit Auto (Bld) [Volum e fraction]Ordered By: Gonzalez Barclay on 10-20-2024 Hematocrit (Bld) [Volume fraction] Hematocrit [Volume Fraction] of Blood by Automated count Low 34.0-46.4 [facility] Hematocrit [Volume Fraction] of Blood by Automated countOrdered By: Gonzalez Barclay on 10-20-2024 Hematocrit (Bld) [Volume fraction] 32.3 % Low 34.0-46.4 [facility] Comment on above: Performed By: #### C BC, CMP #### [address] Hemoglobin [Mass/volume] in BloodOrdered By: Gonzalez Barclay on 10-20-2024 Hemoglobin (Bld) [Mass/Vol] Hemoglobin [Mass/volume] in Blood Low 11.8-15.4 [facility] Hemoglobin (Bld) [Mass/Vol] 10.9 g/dL Low 11.8-15.4 [facility] Comment on above: Performed By: #### C BC, CMP #### [address] Leukocytes [#/volume] correc jaylan for nucleated erythrocytes in Blood by Automated counOrdered By: Gonzalez Barclay on 10-20-2024 WBC corrected for nucl RBC Auto (Bld) [#/Vol] Leukocytes [#/volume] corrected for nucleated erythrocytes in Blood by Automated coun 3.8-11.6 [facility] WBC corrected for nucl RBC Auto (Bld) [#/Vol] 7.2 10*3/uL 3.8-11.6 [facility] Leukocytes [#/volume] in Blo od by Automated countOrdered By: Gonzalez Barclay on 10-20-2024 WBC (Bld) [#/Vol] 7.2 10*3/uL Normal 3.8-11.6 [facility] Comment on above: Performed By: #### C BC, CMP #### [address] Lymphocytes Auto (Bld) [#/Vo l]Ordered By: Gonzalez Barclay on 10-20-2024 Lymphocytes (Bld) [#/Vol] Lymphocytes [#/volume] in Blood by Automated count 1.00-4.8 [facility] Lymphocytes [#/volume] in Bl ood by Automated countOrdered By: Gonzalez Barclay on 10-20-2024 Lymphocytes (Bld) [#/Vol] 1.7 10*3/uL Normal 1.00-4.8 [facility] Comment on above: Performed By: #### C ANTHONY, CMP #### [address] Lymphocytes/100 WBC Auto (Bl d)Ordered By: Gonzalez Barclay on 10-20-2024 Lymphocytes/100 WBC (Bld) Lymphocytes/100 leukocytes in Blood by Automated count . [facility] Lymphocytes/100 leukocytes i n Blood by Automated countOrdered By: Gonzalez Barclay on 10-20-2024 Lymphocytes/100 WBC (Bld) 23.4 % Normal . [facility] Comment on above: Performed By: #### C BC, CMP #### [address] MCH Auto (RBC) [Entitic mass ]Ordered By: Gonzalez Barclay on 10-20-2024 MCH (RBC) [Entitic mass] MCH [Entitic mass] by Automated count 24.7-34.3 [facility] MCH [Entitic mass] by Automa jaylan countOrdered By: Gonzalez Barclay on 10-20-2024 MCH (RBC) [Entitic mass] 31.8 pg Normal 24.7-34.3 [facility] Comment on above: Performed By: #### C BC, CMP #### [facility] [address] [place] [address] MCHC Auto (RBC) [Mass/Vol]Or dered By: Gonzalez Barclay on 10-20-2024 MCHC (RBC) [Mass/Vol] MCHC [Mass/volume] by Automated count 32.0-35.0 [facility] MCHC (RBC) [Mass/Vol] 33.9 g/dL 32.0-35.0 [facility] MCV Auto (RBC) [Entitic vol] Ordered By: Gonzalez Barclay on 10-20-2024 MCV (RBC) [Entitic vol] MCV [Entitic volume] by Automated count 80-100 [facility] MCV [Entitic volume] by Auto mated countOrdered By: Gonzalez Barclay on 10-20-2024 MCV (RBC) [Entitic vol] 94.0 fL Normal 80-100 [facility] Comment on above: Performed By: #### C BC, CMP #### [facility] [address] [place] [address] Monocytes Auto (Bld) [#/Vol] Ordered By: Gonzalez Barclay on 10-20-2024 Monocytes (Bld) [#/Vol] Automated blood monocyte count 0.0-0.8 [facility] Monocytes [#/volume] in Bloo d by Automated countOrdered By: Gonzalez Barclay on 10-20-2024 Monocytes (Bld) [#/Vol] 0.5 10*3/uL Normal 0.0-0.8 [facility] Comment on above: Performed By: #### C BC, CMP #### [facility] [address] [place] [address] Monocytes/100 WBC Auto (Bld) Ordered By: Gonzalez Barclay on 10-20-2024 Monocytes/100 WBC (Bld) Automated monocyte % . [facility] Monocytes/100 leukocytes in Blood by Automated countOrdered By: Gonzalez Barclay on 10-20-2024 Monocytes/100 WBC (Bld) 7.5 % Normal . [facility] Comment on above: Performed By: #### C ANTHONY, CMP #### [address] Neutrophils Auto (Bld) [#/Vo l]Ordered By: Gonzalez Barclay on 10-20-2024 Neutrophils (Bld) [#/Vol] Neutrophils [#/volume] in Blood by Automated count 1.8-7.7 [facility] Neutrophils [#/volume] in Bl ood by Automated countOrdered By: Gonzalez Barclay on 10-20-2024 Neutrophils (Bld) [#/Vol] 4.8 10*3/uL Normal 1.8-7.7 [facility] Comment on above: Performed By: #### C ANTHONY, CMP #### [address] Neutrophils/100 WBC Auto (Bl d)Ordered By: Gonzalez Barclay on 10-20-2024 Neutrophils/100 WBC (Bld) Automated neutrophil % . [facility] Neutrophils/100 leukocytes i n Blood by Automated countOrdered By: Gonzalez Barclay on 10-20-2024 Neutrophils/100 WBC (Bld) 66.7 % Normal . [facility] Comment on above: Performed By: #### C ANTHONY, CMP #### [address] No Panel InformationOrdered By: Gonzalez Barclay on 10-20-2024 Estimated GFR (CKD-EPI) > 60.0 mL/Min [facility] Creatinine Clearance (Chem 71.99 [facility] Nucleated erythrocytes [Pres ence] in Blood by Automated countOrdered By: Gonzalez Barclay on 10-20-2024 Nucleated RBC Auto Ql (Bld) Nucleated erythrocytes [Presence] in Blood by Automated count 0-0.5 [facility] Nucleated RBC Auto Ql (Bld) 0.1 /100{WBC} 0-0.5 [facility] Platelet mean volume Auto (B ld) [Entitic vol]Ordered By: Gonzalez Barclay on 04-29-2025 Platelet mean volume (Bld) [Entitic vol] Platelet mean volume [Entitic volume] in Blood by Automated count 6.3-10.7 [facility] Platelet mean volume [Entiti c volume] in Blood by Automated countOrdered By: Gonzalez Barclay on 10-20-2024 Platelet mean volume (Bld) [Entitic vol] 7.6 fL Normal 6.3-10.7 [facility] Comment on above: Performed By: #### C BC, CMP #### [facility] [address] [place] [address] Platelets Auto (Bld) [#/Vol] Ordered By: Gonzalez Barclay on 10-20-2024 Platelets (Bld) [#/Vol] Platelets [#/volume] in Blood by Automated count 150-450 [facility] Platelets [#/volume] in Bloo d by Automated countOrdered By: Gonzalez Barclay on 10-20-2024 Platelets (Bld) [#/Vol] 256 10*3/uL Normal 150-450 [facility] Comment on above: Performed By: #### C BC, CMP #### [address] Potassium [Moles/volume] in Serum or PlasmaOrdered By: Gonzalez Barclay on 10-20-2024 Potassium [Moles/Vol] Potassium [Moles/v olume] in Serum or Plasma 3.5-5.1 [facility] Potassium [Moles/Vol] 4.5 mmol/L Normal 3.5-5.1 [facility] Comment on above: Result Comment: PERF ORMED BY: [place] [address] PATHOLOGIST SYSTEM INTEGRATION ENGINEER JACQUELIN NAIK M.D. Performed By: #### R MEGHA Manning #### [address] RBC Auto (Bld) [#/Vol]Ordere d By: Gonzalez Barclay on 10-20-2024 RBC (Bld) [#/Vol] Erythrocytes [#/volu me] in Blood by Automated count Low 3.60-5.00 [facility] Serum or plasma anion gap de terminationOrdered By: Gonzalez Barclay on 10-20-2024 Anion gap [Moles/Vol] Serum or plasma an ion gap determination [facility] Comment on above: Test not performed Anion gap [Moles/Vol] TNP [facility] Comment on above: Test not performed Sodium [Moles/volume] in Ser um or PlasmaOrdered By: Gonzalez Barclay on 10-20-2024 Sodium [Moles/Vol] Sodium [Moles/volume ] in Serum or Plasma 136-145 [facility] Sodium [Moles/Vol] 136 mmol/L Normal 136-145 [facility] Comment on above: Performed By: #### C BC, CMP #### [address] US UNI ankle/arm indiceson 0 10-20-2024 US UNI ankle/arm indices [facility] Main [place] [address] [place] [address] Ultrasound Report Signed Patient: Elizabeth Quezada MR#: [id number] 6 : 1960 Acct:[id number] Age/Sex: 64 / F ADM Date: 10/19/24 Loc: Room: [address] [place] [address] Type: DIS IN Attending Dr: Gonzalez Barclay MD Ordering Provider: Gonzalez Barclay MD Date of Service: 10/20/24 US/US UNI ankle/arm indices: New post procedure baseline study. Right leg only please. Copies to: Gonzalez Barclay MD LOWER EXTREMITY SEGMENTAL ARTERIAL DOPSCAN (PVR) INDICATION: New right lower extremity post procedure baseline study after endarterectomy and stent placement. PROCEDURE: Right arm blood pressure is 119 , left is 108 . Pressures at the right ankle are 148 using the posterior tibial artery, and 118 using the dorsalis pedis artery with ankle-brachial index of 1.24 0.99 Wave forms by plethysmography are normal. US/US UNI ankle/arm indices IMPRESSION: NO HEMODYNAMICALLY SIGNIFICANT PERIPHERAL VASCULAR OCCLUSIVE DISEASE AT REST IN THE RIGHT LOWER EXTREMITY. Impression dictated by: Gonzalez Barclay MD,FACS,FSVS 10/20/2024 4:33 PM Dictation Location: [place] [address] Tech: Nanda Tangmelodie Transcribed By: CELENA 10/20/24 1633 Dictated By: Gonzalez Barclay MD 10/20/24 1632 Signed By: 10/20/24 1633 Normal [facility] Urea nitrogen [Mass/volume] in Serum or PlasmaOrdered By: Gonzalez Barclay on 10-20-2024 Urea nitrogen [Mass/Vol] Urea nitrogen [Mass/volume] in Serum or Plasma 01-15 [facility] Urea nitrogen [Mass/Vol] 15 mg/dL Normal 01-15 [facility] Comment on above: Performed By: #### C BC, CMP #### [facility] [address] [place] [address] WBC Auto (Bld) [#/Vol]Ordere d By: Gonzalez Barclay on 10-20-2024 WBC (Bld) [#/Vol] Leukocytes [#/volume ] in Blood by Automated count 3.8-11.6 [facility] Activated Clotting Timeon Activated Clotting Time POC 176 s High 90-139 [facility] Comment on above: Result Comment: Refe rence Range: 90-139 (Non-heparinized) PERFORMED BY: [place] [address] PATHOLOGIST SYSTEM INTEGRATION ENGINEER JACQUELIN NAIK M.D. Performed By: #### A CT #### [facility] [address] [place] [address] Blood activated clotting leti e by coagulation assayOrdered By: Gonzalez Barclay on 10-19-2024 ACT Coag (Bld) Blood activated clot ting time by coagulation assay High 90-139 [facility] Comment on above: Reference Range: 90- 139 (Non-heparinized) ACT Coag (Bld) 176 s High 90-139 [facility] Comment on above: Reference Range: 90- 139 (Non-heparinized) Capillary blood glucose vladimir urement by glucometer (mass/volume)Ordered By: Gonzalez Barclay on 10-19-2024 Glucose [Mass/Vol] 118 mg/dL Normal [facility] Comment on above: Random Glucose Refer ence Range is dependent on time and content of last meal. Glucose of more than 200 mg/dL in a nonstressed, ambulatory subject supports the diagnosis of Diabetes Mellitus. Result Comment: [facility] Glucose Reference Range is dependent on time and content of last meal. Glucose of more than 200 mg/dL in a nonstressed, ambulatory subject supports the diagnosis of Diabetes Mellitus. PERFORMED BY: [facility] [address] [place] [address] PATHOLOGIST SYSTEM INTEGRATION ENGINEER JACQUELIN NAIK M.D. Performed By: #### G MIGUELINA #### Point of Care testing , Glucose Glucometer (BldC) [M ass/Vol]Ordered By: Gonzalez Barclay on 10-19-2024 Glucose [Mass/Vol] Capillary blood gluc ose measurement by glucometer (mass/volume) [facility] Comment on above: Random Glucose Refer ence Range is dependent on time and content of last meal. Glucose of more than 200 mg/dL in a nonstressed, ambulatory subject supports the diagnosis of Diabetes Mellitus. Glucose Poct Glucometerson 0 10-19-2024 Commemt1 Glu2: Cleaned Meter Normal [facility] Comment on above: Result Comment: PERF ORMED BY: [facility] [address] [place] [address] PATHOLOGIST SYSTEM INTEGRATION ENGINEER JACQUELIN NAIK M.D. Performed By: #### G MIGUELINA #### Point of Care testing , Glucose [Mass/Vol] 140 mg/dL Normal [facility] Comment on above: Result Comment: [place] Glucose Reference Range is dependent on time and content of last meal. Glucose of more than 200 mg/dL in a nonstressed, ambulatory subject supports the diagnosis of Diabetes Mellitus. Performed By: #### G CYNTHIALS #### Point of Care testing , [place] 10-19-2024 L ------ Specimen: [id number] Received: 10/19/24 Status: DENNY Lloyd Num: [id number] Spec Type: Surgical Subm Dr: Gonzalez Barclay MD Tissues: A Artery - Plaque (RT COMMON FEMORAL + SFA PLAQ) Procedures: HE, Gross/Micro L3, Decalcification Age/ Patient Sex Location Account Attending Physician Elizabeth Quezada 64/F 4N [id number] Gonzalez Barclay MD SPEC NUM: [id number] RECD: 10/19/24 STATUS: DENNY LLOYD NUM: [id number] DARION: 10/19/24-[address]: Gonzalez Barclay MD ENTERED: 10/19/24-[address]: SPEC TYPE: Surgical DEPT: S ENTERED BY: [id number] RECV BY: [id number] ORDERED: Franko CARLSON/Micro L3, Decalcification ORDERED: HE, Gross/Micro L3, Decalcification Pathological Diagnosis Vascular plaque, right common femoral artery and right SFA, endarterectomies: - Severe complex, calcified, and stenotic atherosclerotic plaques, demonstrating severe sclerotic thickening with patchy moderate calcifications in vascular sosa of both segments, in addition to patchy small foci of evolving atheromatous degeneration of various degree in both segments with occasionally associated fibrinoid deposition, fibrohistiocytic infiltration, and neovascularization, and occasional tiny foci of osseous and fatty metaplasia are also noted, and the marked stenosis of both segments with moderate to severe vascular occlusion to focally only 30% of residual lumen noted Clinical Information Peripheral arterial disease of right common and superficial femoral arteries Gross Description Part A is received in formalin labeled with the patients name, date of , and RT common femoral and SFA plaque are 2 cylindrical segments of yellow-kate plaque-like material, 4 x 0.6 cm, and 7.5 x 1 cm. The larger specimen is opened to reveal a smooth to granular lumen. Serial sections reveal largely calcified cut surfaces. [employer] sections are submitted in a single cassette after decalcification. (1, , [id number])AMAURI Specimen: [id number] Received: 10/19/24 Status: DENNY Lloyd Num: [id number] Spec Type: Surgical Subm Dr: Gonzalez Barclay MD Tissues: A Artery - Plaque (RT COMMON FEMORAL + SFA PLAQ) Procedures: ALDO Gross/Micro L3, Decalcification Patient: Elizabeth Quezada [id number] (Continued) Specimen: [id number] Received: 10/19/24 (Continued) Signed (signature on file) Anders Willis MD 10/21/24 1047 Specimen: [id number] Received: 10/19/24 Status: DENNY Lloyd Num: [id number] Spec Type: Surgical Subm Dr: Gonzalez Barclay MD Tissues: A Artery - Plaque (RT COMMON FEMORAL + SFA PLAQ) Procedures: Franko CARLSON/Bess L3, Decalcification Patient: PilarJulieth [id number] (Continued) Specimen: [id number] Received: 10/19/24 (Continued) Microscopic Description Microscopic examination is performed [facility] Codes [id number] Specimen: [id number] Received: 10/19/24 Status: DENNY Lloyd Num: [id number] Spec Type: Surgical Subm Dr: Gonzalez Barclay MD Tissues: A Artery - Plaque (RT COMMON FEMORAL + SFA PLAQ) Procedures: ALOD Gross/Bess L3, Decalcification Patient: Elizabeth Quezada [id number] (Continued) Signed (signature on file) Anders Willis MD 10/21/24 1047 Normal [facility] No Panel InformationOrdered By: Gonzalez Barclay on 10-19-2024 Bedside Glucose Comment Glu2: cleaned meter [facility] Alanine aminotransferase [En zymatic activity/volume] in Serum or PlasmaOrdered By: Gonzalez Barclay on 10-06-2024 ALT [Catalytic activity/Vol] Alanine aminotransferase [Enzymatic activity/volume] in Serum or Plasma [facility] ALT [Catalytic activity/Vol] 12 U/L Normal [facility] Comment on above: Performed By: #### C BC, CMP #### [facility] [address] [place] [address] [place] Albumin [Mass/volume] in Ser um or Plasma by Bromocresol green (BCG) dye binding methoOrdered By: Gonzalez Barclay on 10-06-2024 Albumin BCG dye [Mass/Vol] Albumin [Mass/volume] in Serum or Plasma by Bromocresol green (BCG) dye binding metho 3.5-5.7 [facility] Albumin BCG dye [Mass/Vol] 3.9 g/dL 3.5-5.7 [facility] Alkaline phosphatase [Enzyma tic activity/volume] in Serum or PlasmaOrdered By: Gonzalez Barclay on 10-06-2024 ALP [Catalytic activity/Vol] Alkaline phosphatase [Enzymatic activity/volume] in Serum or Plasma 34-104 [facility] ALP [Catalytic activity/Vol] 85 U/L Normal 34-104 [facility] Comment on above: Result Comment: PERF ORMED BY: [place] [address] PATHOLOGIST SYSTEM INTEGRATION ENGINEER JACQUELIN NAIK M.D. Performed By: #### C BC, CMP #### [facility] [address] [place] [address] Appearance of UrineOrdered B y: Gonzalez Barclay on 10-06-2024 Appearance (U) Urine appearance Clear [facility] Appearance (U) Clear Normal Clear [facility] Comment on above: Order Comment: Name Collection Type:: Clean-Voided Midstream Performed By: #### A DDONUAPLUS #### [facility] [address] [place] [address] [place] Aspartate aminotransferase [ Enzymatic activity/volume] in Serum or PlasmaOrdered By: Gonzalez Barclay on 10-06-2024 AST [Catalytic activity/Vol] Aspartate aminotransferase [Enzymatic activity/volume] in Serum or Plasma [address] AST [Catalytic activity/Vol] 12 U/L Low 13-39 [facility] Comment on above: Performed By: #### C BC, CMP #### [facility] [address] [place] [address] Bacteria [Presence] in Urine by AutomatedOrdered By: Gonzalez Barclay on 10-06-2024 Bacteria Auto Ql (U) Bacteria [Presence] in Urine by Automated None Seen [facility] Bacteria Auto Ql (U) Rare [HPF] None Seen [facility] Basophils Auto (Bld) [#/Vol] Ordered By: Gonzalez Barclay on 10-06-2024 Basophils (Bld) [#/Vol] Automated basophil count 0.0-0.2 [facility] Basophils [#/volume] in Bloo d by Automated countOrdered By: Gonzalez Barclay on 10-06-2024 Basophils (Bld) [#/Vol] 0.0 10*3/uL Normal 0.0-0.2 [facility] Comment on above: Result Comment: PERF ORMED BY: [place] [address] PATHOLOGIST SYSTEM INTEGRATION ENGINEER JACQUELIN NAIK M.D. Performed By: #### C BC, CMP #### [facility] [address] [place] [address] [place] Basophils/100 WBC Auto (Bld) Ordered By: Gonzalez Barclay on 10-06-2024 Basophils/100 WBC (Bld) Automated basophil % . [facility] Basophils/100 leukocytes in Blood by Automated countOrdered By: Gonzlaez Barclay on 10-06-2024 Basophils/100 WBC (Bld) 0.6 % Normal . [facility] Comment on above: Performed By: #### C BC, CMP #### [facility] [address] Bilirubin Test strip Ql (U)O rdered By: Gonzalez Barclay on 10-06-2024 Bilirubin Ql (U) Bilirubin.total [Pre sence] in Urine by Test strip Negative [facility] Bilirubin Ql (U) Negative Negative [facility] Bilirubin.total [Mass/volume ] in Serum or PlasmaOrdered By: Gonzalez Barclay on 10-06-2024 Bilirubin [Mass/Vol] Bilirubin.total [Mass/volume] in Serum or Plasma 0.3-1.0 [facility] Bilirubin [Mass/Vol] 0.4 mg/dL Normal 0.3-1.0 [facility] Comment on above: Performed By: #### C BC, CMP #### [address] Calcium [Mass/volume] in Ser um or PlasmaOrdered By: Gonzalez Barclay on 10-06-2024 Calcium [Mass/Vol] Calcium [Mass/volume ] in Serum or Plasma 8.6-10.3 [facility] Calcium [Mass/Vol] 10.1 mg/dL Normal 8.6-10.3 [facility] Comment on above: Performed By: #### C BC, CMP #### [address] Carbon dioxide, total [Moles /volume] in Serum or PlasmaOrdered By: Gonzalez Barclay on 10-06-2024 CO2 [Moles/Vol] Carbon dioxide, tota l [Moles/volume] in Serum or Plasma 21.0-31.0 [facility] CO2 [Moles/Vol] 27.2 mmol/L Normal 21.0-31.0 [facility] Comment on above: Performed By: #### C BC, CMP #### [place] [address] [place] Chloride [Moles/volume] in S radha or PlasmaOrdered By: Gonzalez Barclay on 04-15-2025 Chloride [Moles/Vol] Chloride [Moles/vol ume] in Serum or Plasma 98-107 [facility] Chloride [Moles/Vol] 98 mmol/L Normal 98-107 [facility] Comment on above: Performed By: #### C BC, CMP #### [address] Color Auto (U)Ordered By: Emily Barclay on 10-06-2024 Color (U) Color of Urine by Auto Yellow Fi [facility] Color of Urine by AutoOrdere d By: Gonzalez Barclay on 10-06-2024 Color (U) Light-yellow Normal Yellow [facility] Comment on above: Order Comment: Name Collection Type:: Clean-Voided Midstream Performed By: #### A DDONUAPLUS #### [address] Complete Blood Count Auto Di ffon 10-06-2024 Mean Corpuscular HGB Conc 33.9 g/dL Normal 32.0-35.0 [facility] Comment on above: Performed By: #### C BC, CMP #### [address] NRBC% 0.0 /100{WBC} Normal 0-0.5 [facility] Comment on above: Performed By: #### C BC, CMP #### [address] Comprehensive Metabolic Pane cuauhtemoc 10-06-2024 Albumin [Mass/Vol] 3.9 g/dL Normal 3.5-5.7 [facility] Comment on above: Performed By: #### C BC, CMP #### [place] [address] [place] GFR/1.73 sq M.predicted MDRD (S/P/Bld) [Vol rate/Area] mL/min/{1.73_m2} Normal [facility] Comment on above: Performed By: #### C BC, CMP #### [address] Creatinine [Mass/volume] in Serum or PlasmaOrdered By: Gonzalez Barclay on 10-06-2024 Creatinine [Mass/Vol] Creatinine [Mass/v olume] in Serum or Plasma 0.60-1.20 [facility] Creatinine [Mass/Vol] 1.02 mg/dL Normal 0.60-1.20 [facility] Comment on above: Performed By: #### C BC, CMP #### [facility] [address] [place] [address] Dipstick and Microscopicon 0 10-06-2024 Bacteria,Urine Rare Normal None Seen [facility] Comment on above: Order Comment: Name Collection Type:: Clean-Voided Midstream Performed By: #### A DDONUAPLUS #### [place] [address] [place] Bilirubin,Urine Negative Normal Negative [facility] Comment on above: Order Comment: Name Collection Type:: Clean-Voided Midstream Performed By: #### A DDONUAPLUS #### [address] Glucose Ql (U) >= High Normal [facility] Comment on above: Order Comment: Name Collection Type:: Clean-Voided Midstream Performed By: #### A DDONUAPLUS #### [place] [address] [place] Hyaline Casts,Urine 0-8 Normal 0-8 [facility] Comment on above: Order Comment: Name Collection Type:: Clean-Voided Midstream Result Comment: PERF ORMED BY: [place] [address] PATHOLOGIST SYSTEM INTEGRATION ENGINEER JACQUELIN NAIK M.D. Performed By: #### A DDONUAPLUS #### [place] [address] [place] Nitrite,Urine Positive High Negative [facility] Comment on above: Order Comment: Name Collection Type:: Clean-Voided Midstream Performed By: #### A DDONUAPLUS #### [place] [address] [place] Occult Blood,Urine Negative Normal Negative [facility] Comment on above: Order Comment: Name Collection Type:: Clean-Voided Midstream Result Comment: PERF ORMED BY: [place] [address] PATHOLOGIST SYSTEM INTEGRATION ENGINEER JACQUELIN NAIK M.D. Performed By: #### A DDONUAPLUS #### [address] Protein,Urine Negative Normal Negative [facility] Comment on above: Order Comment: Name Collection Type:: Clean-Voided Midstream Performed By: #### A DDONUAPLUS #### [place] [address] [place] RBC,Urine 1-2 Normal 0-4 [facility] Comment on above: Order Comment: Name Collection Type:: Clean-Voided Midstream Performed By: #### A DDONUAPLUS #### [place] [address] [place] Specificy [place],Urine 1.025 Normal 1.001-1.03 0 [facility] Comment on above: Order Comment: Name Collection Type:: Clean-Voided Midstream Performed By: #### A DDONUAPLUS #### [address] Squamous Epithelial Cell,Urine 5-9 High 0-2 [facility] Comment on above: Order Comment: Name Collection Type:: Clean-Voided Midstream Performed By: #### A DDONUAPLUS #### [place] [address] [place] Urobilinogen,Urine Normal Normal Normal [facility] Comment on above: Order Comment: Name Collection Type:: Clean-Voided Midstream Performed By: #### A DDONUAPLUS #### [place] [address] [place] WBC,Urine 1-2 Normal 0-4 [facility] Comment on above: Order Comment: Name Collection Type:: Clean-Voided Midstream Performed By: #### A DDONUAPLUS #### [address] ECG 12 lead ECGon 10-06-2024 ECG 12 lead ECG [facility] Main [place] [address] [place] [address] Electrocardiograph Report Signed Patient: Elizabeth Quezada MR#: [id number] 6 : 1960 Acct:[id number] Age/Sex: 64 / F ADM Date: 10/06/24 Loc: PS Room: Type: [facility] Attending Dr: Gonzalez Barclay MD Ordering Provider: Gonzalez Barclay MD Date of Service: 10/06/24 ECG/ECG 12 lead ECG: surgery 10/19 Copies to: Test Reason : Blood Pressure : */* mmHG Vent. Rate : 90 BPM Atrial Rate : 90 BPM P-R Int : 184 ms QRS Dur : 92 ms QT Int : 360 ms P-R-T Axes : 65 49 82 degrees QTcB Int : 440 ms Normal sinus rhythm Inferior infarct , age undetermined Abnormal ECG No previous ECGs available Confirmed by JOCELINE ELIZABETH MD ([id number]) on 10/06/2024 6:22:23 PM Referred By: Electronically Signed By: JOCELINE ELIZABETH MD Transcribed By: MUS Signed By Joceline Elizabeth MD 0 10/06/241821 Normal [facility] Eosinophils Auto (Bld) [#/Vo l]Ordered By: Gonzalez Barclay on 10-06-2024 Eosinophils (Bld) [#/Vol] Automated eosinophil count 0.0-0.45 [facility] Eosinophils [#/volume] in Bl ood by Automated countOrdered By: Gonzalez Barclay on 10-06-2024 Eosinophils (Bld) [#/Vol] 0.2 10*3/uL Normal 0.0-0.45 [facility] Comment on above: Performed By: #### C BC, CMP #### [address] Eosinophils/100 WBC Auto (Bl d)Ordered By: Gonzalez Barclay on 10-06-2024 Eosinophils/100 WBC (Bld) Automated eosinophil % . [facility] Eosinophils/100 leukocytes i n Blood by Automated countOrdered By: Gonzalez Barclay on 10-06-2024 Eosinophils/100 WBC (Bld) 2.4 % Normal . [facility] Comment on above: Performed By: #### C ANTHONY, CMP #### [address] Epithelial cells.squamous [# /area] in Urine sediment by Automated countOrdered By: Gonzalez Barclay on 10-06-2024 Epithelial cells.squamous Auto (Urine sed) [#/Area] Epithelial cells.squamous [#/area] in Urine sediment by Automated count High 0-2 [facility] Epithelial cells.squamous Auto (Urine sed) [#/Area] 5-9 [HPF] High 0-2 [facility] Erythrocyte distribution wid th Auto (RBC) [Ratio]Ordered By: Gonzalez Barclay on 10-06-2024 Erythrocyte distribution width (RBC) [Ratio] Erythrocyte distribution width [Ratio] by Automated count 11.9-15.3 [facility] Erythrocyte distribution wid th [Ratio] by Automated countOrdered By: Gonzalez Barclay on 10-06-2024 Erythrocyte distribution width (RBC) [Ratio] 13.3 % Normal 11.9-15.3 [facility] Comment on above: Performed By: #### C ANTHONY, CMP #### [address] Erythrocytes [#/area] in Uri ne sediment by Automated countOrdered By: Gonzalez Barclay on 10-06-2024 RBC Auto (Urine sed) [#/Area] Erythrocytes [#/area] in Urine sediment by Automated count 0-4 [facility] RBC Auto (Urine sed) [#/Area] 1-2 [HPF] 0-4 [facility] Erythrocytes [#/volume] in B lood by Automated countOrdered By: Gonzalez Barclay on 10-06-2024 RBC (Bld) [#/Vol] 5.09 10*6/uL High 3.60-5.00 [facility] Comment on above: Performed By: #### C ANTHONY, CMP #### [address] Globulin Calc (S) [Mass/Vol] Ordered By: Gonzalez Barclay on 10-06-2024 Globulin (S) [Mass/Vol] Serum globulin measurement by calculation (mass/volume) [facility] Glucose [Mass/volume] in Ser um or PlasmaOrdered By: Gonzalez Barclay on 10-06-2024 Glucose [Mass/Vol] Glucose [Mass/volume ] in Serum or Plasma High 70-100 [facility] Comment on above: ADA recommended refe rence rangeRandom Glucose Reference Range is dependent on time and content of last meal. Glucose of more than 200 mg/dL in a nonstressed, ambulatory subject supports the diagnosis of Diabetes Mellitus. Glucose [Mass/Vol] 134 mg/dL High 70-100 [facility] Comment on above: ADA recommended refe rence rangeRandom Glucose Reference Range is dependent on time and content of last meal. Glucose of more than 200 mg/dL in a nonstressed, ambulatory subject supports the diagnosis of Diabetes Mellitus. Result Comment: [place] [facility] Glucose Reference Range is dependent on time and content of last meal. Glucose of more than 200 mg/dL in a nonstressed, ambulatory subject supports the diagnosis of Diabetes Mellitus. ADA recommended reference range Performed By: #### C BC, CMP #### [facility] [address] [place] [address] Glucose [Mass/volume] in Uri ne by Test stripOrdered By: Gonzalez Barclay on 10-06-2024 Glucose Test strip (U) [Mass/Vol] Glucose [Mass/volume] in Urine by Test strip [facility] Normal [facility] Glucose Test strip (U) [Mass/Vol] >=1000 mg/dL [facility] Normal [facility] Hematocrit Auto (Bld) [Volum e fraction]Ordered By: Gonzalez Barclay on 10-06-2024 Hematocrit (Bld) [Volume fraction] Hematocrit [Volume Fraction] of Blood by Automated count High 34.0-46.4 [facility] Hematocrit [Volume Fraction] of Blood by Automated countOrdered By: Gonzalez Barclay on 10-06-2024 Hematocrit (Bld) [Volume fraction] 47.5 % High 34.0-46.4 [facility] Comment on above: Performed By: #### C BC, CMP #### [facility] [address] [place] [address] Hemoglobin Test strip Ql (U) Ordered By: Gonzalez Barclay on 10-06-2024 Hemoglobin Ql (U) Hemoglobin [Presence ] in Urine by Test strip Negative [facility] Hemoglobin Ql (U) Negative Negative [facility] Hemoglobin [Mass/volume] in BloodOrdered By: Gonzalez Barclay on 10-06-2024 Hemoglobin (Bld) [Mass/Vol] Hemoglobin [Mass/volume] in Blood High 11.8-15.4 [facility] Hemoglobin (Bld) [Mass/Vol] 16.1 g/dL High 11.8-15.4 [facility] Comment on above: Performed By: #### C BC, CMP #### [facility] [address] [place] [address] Hyaline casts [#/area] in Ur ine sediment by Automated countOrdered By: Gonzalez Barclay on 10-06-2024 Hyaline casts Auto (Urine sed) [#/Area] Hyaline casts [#/area] in Urine sediment by Automated count 0-8 [facility] Hyaline casts Auto (Urine sed) [#/Area] 0-8 [LPF] 0-8 [facility] Ketones Test strip Ql (U)Ord ered By: Gonzalez Barclay on 10-06-2024 Ketones Ql (U) Ketones [Presence] i n Urine by Test strip Negative [facility] Ketones [Presence] in Urine by Test stripOrdered By: Gonzalez Barclay on 10-06-2024 Ketones Ql (U) Negative Normal Negative [facility] Comment on above: Order Comment: Name Collection Type:: Clean-Voided Midstream Performed By: #### A DDONUAPLUS #### [facility] [address] [place] [address] Leukocyte esterase [Presence ] in Urine by Test stripOrdered By: Gonzalez Barclay on 10-06-2024 Leukocyte esterase Test strip Ql (U) Leukocyte esterase [Presence] in Urine by Test strip Negative [facility] Leukocyte esterase Test strip Ql (U) Negative Normal Negative [facility] Comment on above: Order Comment: Name Collection Type:: Clean-Voided Midstream Performed By: #### A DDONUAPLUS #### [address] Leukocytes [#/area] in Urine sediment by Automated countOrdered By: Gonzalez Barclay on 10-06-2024 WBC Auto (Urine sed) [#/Area] Leukocytes [#/area] in Urine sediment by Automated count 0-4 [facility] WBC Auto (Urine sed) [#/Area] 1-2 [HPF] 0-4 [facility] Leukocytes [#/volume] correc jaylan for nucleated erythrocytes in Blood by Automated counOrdered By: Gonzalez Barclay on 10-06-2024 WBC corrected for nucl RBC Auto (Bld) [#/Vol] Leukocytes [#/volume] corrected for nucleated erythrocytes in Blood by Automated coun 3.8-11.6 [facility] WBC corrected for nucl RBC Auto (Bld) [#/Vol] 6.7 10*3/uL 3.8-11.6 [facility] Leukocytes [#/volume] in Blo od by Automated countOrdered By: Gonzalez Barclay on 10-06-2024 WBC (Bld) [#/Vol] 6.7 10*3/uL Normal 3.8-11.6 [facility] Comment on above: Performed By: #### C BC, CMP #### [address] Lymphocytes Auto (Bld) [#/Vo l]Ordered By: Gonzalez Barclay on 10-06-2024 Lymphocytes (Bld) [#/Vol] Lymphocytes [#/volume] in Blood by Automated count 1.00-4.8 [facility] Lymphocytes [#/volume] in Bl ood by Automated countOrdered By: Gonzalez Barclay on 10-06-2024 Lymphocytes (Bld) [#/Vol] 1.9 10*3/uL Normal 1.00-4.8 [facility] Comment on above: Performed By: #### C BC, CMP #### [address] Lymphocytes/100 WBC Auto (Bl d)Ordered By: Gonzalez Barclay on 10-06-2024 Lymphocytes/100 WBC (Bld) Lymphocytes/100 leukocytes in Blood by Automated count . [facility] Lymphocytes/100 leukocytes i n Blood by Automated countOrdered By: Gonzalez Barclay on 10-06-2024 Lymphocytes/100 WBC (Bld) 29.1 % Normal . [facility] Comment on above: Performed By: #### C BC, CMP #### [address] MCH Auto (RBC) [Entitic mass ]Ordered By: Gonzalez Barclay on 10-06-2024 MCH (RBC) [Entitic mass] MCH [Entitic mass] by Automated count 24.7-34.3 [facility] MCH [Entitic mass] by Automa jaylan countOrdered By: Gonzalez Barclay on 10-06-2024 MCH (RBC) [Entitic mass] 31.7 pg Normal 24.7-34.3 [facility] Comment on above: Performed By: #### C ANTHONY, CMP #### [address] MCHC Auto (RBC) [Mass/Vol]Or dered By: Gonzalez Barclay on 10-06-2024 MCHC (RBC) [Mass/Vol] MCHC [Mass/volume] by Automated count 32.0-35.0 [facility] MCHC (RBC) [Mass/Vol] 33.9 g/dL 32.0-35.0 [facility] MCV Auto (RBC) [Entitic vol] Ordered By: Gonzalez Barclay on 10-06-2024 MCV (RBC) [Entitic vol] MCV [Entitic volume] by Automated count 80-100 [facility] MCV [Entitic volume] by Auto mated countOrdered By: Gonzalez Barclay on 10-06-2024 MCV (RBC) [Entitic vol] 93.4 fL Normal 80-100 [facility] Comment on above: Performed By: #### C BC, CMP #### [address] Monocytes Auto (Bld) [#/Vol] Ordered By: Gonzalez Barclay on 10-06-2024 Monocytes (Bld) [#/Vol] Automated blood monocyte count 0.0-0.8 [facility] Monocytes [#/volume] in Bloo d by Automated countOrdered By: Gonzalez Barclay on 10-06-2024 Monocytes (Bld) [#/Vol] 0.7 10*3/uL Normal 0.0-0.8 [facility] Comment on above: Performed By: #### C BC, CMP #### [address] Monocytes/100 WBC Auto (Bld) Ordered By: Gonzalez Barclay on 10-06-2024 Monocytes/100 WBC (Bld) Automated monocyte % . [facility] Monocytes/100 leukocytes in Blood by Automated countOrdered By: Gonzalez Barclay on 10-06-2024 Monocytes/100 WBC (Bld) 10.4 % Normal . [facility] Comment on above: Performed By: #### C BC, CMP #### [address] Neutrophils Auto (Bld) [#/Vo l]Ordered By: Gonzalez Barclay on 10-06-2024 Neutrophils (Bld) [#/Vol] Neutrophils [#/volume] in Blood by Automated count 1.8-7.7 [facility] Neutrophils [#/volume] in Bl ood by Automated countOrdered By: Gonzalez Barclay on 10-06-2024 Neutrophils (Bld) [#/Vol] 3.8 10*3/uL Normal 1.8-7.7 [facility] Comment on above: Performed By: #### C BC, CMP #### [place] [address] [place] Neutrophils/100 WBC Auto (Bl d)Ordered By: Gonzalez Barclay on 10-06-2024 Neutrophils/100 WBC (Bld) Automated neutrophil % . [facility] Neutrophils/100 leukocytes i n Blood by Automated countOrdered By: Gonzalez Barclay on 10-06-2024 Neutrophils/100 WBC (Bld) 57.5 % Normal . [facility] Comment on above: Performed By: #### C BC, CMP #### [address] Nitrite Test strip Ql (U)Ord ered By: Gonzalez Barclay on 10-06-2024 Nitrite Ql (U) Nitrite [Presence] i n Urine by Test strip High Negative [facility] Nitrite Ql (U) Positive High Negative [facility] No Panel InformationOrdered By: Gonzalez Barclay on 10-06-2024 Estimated GFR (CKD-EPI) > 60.0 mL/Min [facility] Creatinine Clearance (Chem N/A [facility] Nucleated erythrocytes [Pres ence] in Blood by Automated countOrdered By: Gonzalez Barclay on 10-06-2024 Nucleated RBC Auto Ql (Bld) Nucleated erythrocytes [Presence] in Blood by Automated count 0-0.5 [facility] Nucleated RBC Auto Ql (Bld) 0.0 /100{WBC} 0-0.5 [facility] Platelet mean volume Auto (B ld) [Entitic vol]Ordered By: Gonzalez Barclay on 10-06-2024 Platelet mean volume (Bld) [Entitic vol] Platelet mean volume [Entitic volume] in Blood by Automated count 6.3-10.7 [facility] Platelet mean volume [Entiti c volume] in Blood by Automated countOrdered By: Gonzalez Barclay on 10-06-2024 Platelet mean volume (Bld) [Entitic vol] 7.6 fL Normal 6.3-10.7 [facility] Comment on above: Performed By: #### C BC, CMP #### [facility] [address] Platelets Auto (Bld) [#/Vol] Ordered By: Gonzalez Barclay on 10-06-2024 Platelets (Bld) [#/Vol] Platelets [#/volume] in Blood by Automated count 150-450 [facility] Platelets [#/volume] in Bloo d by Automated countOrdered By: Gonzalez Barclay on 10-06-2024 Platelets (Bld) [#/Vol] 297 10*3/uL Normal 150-450 [facility] Comment on above: Performed By: #### C BC, CMP #### [facility] [address] Potassium [Moles/volume] in Serum or PlasmaOrdered By: Gonzalez Barclay on 10-06-2024 Potassium [Moles/Vol] Potassium [Moles/v olume] in Serum or Plasma 3.5-5.1 [facility] Potassium [Moles/Vol] 4.7 mmol/L Normal 3.5-5.1 [facility] Comment on above: Performed By: #### C ANTHONY, CMP #### [address] Protein Test strip (U) [Mass /Vol]Ordered By: Gonzalez Barclay on 10-06-2024 Protein (U) [Mass/Vol] Protein [Mass/vol ume] in Urine by Test strip Negative [facility] Protein (U) [Mass/Vol] Negative Negative [facility] Protein [Mass/volume] in Ser um or PlasmaOrdered By: Gonzalez Barclay on 10-06-2024 Protein [Mass/Vol] Protein [Mass/volume ] in Serum or Plasma 6.4-8.9 [facility] Protein [Mass/Vol] 6.9 g/dL Normal 6.4-8.9 [facility] Comment on above: Performed By: #### C ANTHONY, CMP #### [address] RBC Auto (Bld) [#/Vol]Ordere d By: Gonzalez Barclay on 10-06-2024 RBC (Bld) [#/Vol] Erythrocytes [#/volu me] in Blood by Automated count High 3.60-5.00 [facility] Serum globulin measurement b y calculation (mass/volume)Ordered By: Gonzalez Barclay on 10-06-2024 Globulin (S) [Mass/Vol] 3.0 g/dL Normal [facility] Comment on above: Performed By: #### C ANTHONY, CMP #### [address] Serum or plasma albumin/glob ulin mass ratioOrdered By: Gonzalez Barclay on 10-06-2024 Albumin/Globulin [Mass ratio] Serum or plasma albumin/globulin mass ratio [facility] Albumin/Globulin [Mass ratio] 1.3 {ratio} Normal [facility] Comment on above: Performed By: #### C BC, CMP #### [facility] [address] [place] [address] Serum or plasma anion gap de terminationOrdered By: Gonzalez Barclay on 10-06-2024 Anion gap [Moles/Vol] Serum or plasma an ion gap determination 6.0-15.0 [facility] Anion gap [Moles/Vol] 14.5 mmol/L Normal 6.0-15.[address] [facility] Comment on above: Performed By: #### C ANTHONY, CMP #### [address] Sodium [Moles/volume] in Ser um or PlasmaOrdered By: Gonzalez Barclay on 10-06-2024 Sodium [Moles/Vol] Sodium [Moles/volume ] in Serum or Plasma Low 136-145 [facility] Sodium [Moles/Vol] 135 mmol/L Low 136-145 [facility] Comment on above: Performed By: #### C ANTHONY, CMP #### [address] Specific gravity Test strip (U) [Rel density]Ordered By: Gonzalez Barclay on 10-06-2024 Specific gravity (U) [Rel density] Specific gravity of Urine by Test strip 1.001-1.03 0 [facility] Specific gravity (U) [Rel density] 1.025 1.001-1.03 0 [facility] Urea nitrogen [Mass/volume] in Serum or PlasmaOrdered By: Gonzalez Barclay on 10-06-2024 Urea nitrogen [Mass/Vol] Urea nitrogen [Mass/volume] in Serum or Plasma High 7-25 [facility] Urea nitrogen [Mass/Vol] 30 mg/dL High 7-25 [facility] Comment on above: Performed By: #### C ANTHONY, CMP #### [address] Urobilinogen Test strip (U) [Mass/Vol]Ordered By: Gonzalez Barclay on 10-06-2024 Urobilinogen (U) [Mass/Vol] Urobilinogen [Mass/volume] in Urine by Test strip Normal [facility] Urobilinogen (U) [Mass/Vol] Normal mg/dL Normal [facility] WBC Auto (Bld) [#/Vol]Ordere d By: Gonzalez Barclay on 10-06-2024 WBC (Bld) [#/Vol] Leukocytes [#/volume ] in Blood by Automated count 3.8-11.6 [facility] pH Test strip (U)Ordered By: Gonzalez Barclay on 10-06-2024 pH (U) pH of Urine by Test strip 5.0-9.0 [facility] pH of Urine by Test stripOrd ered By: Gonzalez Barclay on 10-06-2024 pH (U) 6.0 [pH] Normal 5.0-9.0 [facility] Comment on above: Order Comment: Name Collection Type:: Clean-Voided Midstream Performed By: #### A DDONUAPLUS #### [facility] [address] [place] [address] CT Chest WO contraston 09-18 IMPRESSION: 1. Unchanged fractured inferior most median sternotomy wire with increasing 1cm distraction. 2. Stable appearance of the posterior right upper lobe nodular opacity dating back to May 2023. Again this may represent atelectasis or scar, although indolent neoplasm cannot be completely excluded. Attention on follow-up is recommended. 3. Smoking related lung injury including centrilobular emphysema and respiratory bronchiolitis. 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 Technique: Spiral CT acquisition of the chest from the thoracic inlet to the upper abdomen without contrast. MQ: CTCWO_6 CT Radiation dose: Integrated Dose-length product (DLP) for this visit = 288 mGy*cm CT Dose Reduction Employed: Automated exposure control (AEC) Comparison: CT chest 02/18/2024, 10/10/2023, 07/02/2023 RESULT: Limitations: None. Lines, tubes, and devices: None. Lung parenchyma and airways: Stable appearance of the posterior right upper lobe nodular opacity measuring approximately 1.1 cm on image 66, slightly distorting the right upper major fissure dating back to May 2023. The central airways are widely patent and devoid of endobronchial lesion. There is mild apical predominant centrilobular emphysema, mild bronchial wall thickening, scattered mucoid impactions and diffuse upper lobe predominant centrilobular micronodules (1-2 mm), not significant changed from 02/18/2024. Curvilinear right perifissural and lingular atelectasis, otherwise no focal consolidation. Few discrete pulmonary nodules are present bilaterally, the largest for reference: * Right upper lobe 3 mm (3:32) * Right upper lobe 3 mm (3:42) * Right upper lobe 3 mm (3:50) Pleural space: No pleural effusion. No pleural thickening. Lower neck, lymph nodes, and mediastinum: Subcentimeter calcified thyroid nodule (4:16). Unchanged retrotracheal calcified lymph node (4:23). No lymphadenopathy in the supraclavicular, axillary, mediastinal, or hilar regions. The esophagus is unremarkable. Heart, pericardium, and thoracic vessels: The thoracic aorta and main pulmonary artery are normal in caliber. The cardiac chambers are normal in size. Aortic annular calcifications are present. Moderate-severe [place] coronary artery atherosclerotic calcifications and coronary artery bypass graft are noted, although the study is not optimized for coronary assessment. No pericardial effusion or thickening. Bones and soft tissues: Median sternotomy with appropriate manubrial and sternal apposition. There is bony fusion of the manubrium and proximal sternum. The distal sternum is properly opposed without complete osseous fusion. The xiphoid-left anterior 5th rib anastomosis demonstrates a 1cm distraction with unchanged fractured inferior most median sternotomy wire; the distraction previously measured 0.8 cm on 02/18/2024 and 0.6 cm on 10/10/2023. Upper abdomen: No abnormality in the imaged upper abdomen. Localizer images: No additional findings. 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 Technique: Spiral CT acquisition of the chest from the thoracic inlet to the upper abdomen without contrast. MQ: CTCWO_6 CT Radiation dose: Integrated Dose-length product (DLP) for this visit = 288 mGy*cm CT Dose Reduction Employed: Automated exposure control (AEC) Comparison: CT chest 02/18/2024, 10/10/2023, 07/02/2023 RESULT: Limitations: None. Lines, tubes, and devices: None. Lung parenchyma and airways: Stable appearance of the posterior right upper lobe nodular opacity measuring approximately 1.1 cm on image 66, slightly distorting the right upper major fissure dating back to May 2023. The central airways are widely patent and devoid of endobronchial lesion. There is mild apical predominant centrilobular emphysema, mild bronchial wall thickening, scattered mucoid impactions and diffuse upper lobe predominant centrilobular micronodules (1-2 mm), not significant changed from 02/18/2024. Curvilinear right perifissural and lingular atelectasis, otherwise no focal consolidation. Few discrete pulmonary nodules are present bilaterally, the largest for reference: * Right upper lobe 3 mm (3:32) * Right upper lobe 3 mm (3:42) * Right upper lobe 3 mm (3:50) Pleural space: No pleural effusion. No pleural thickening. Lower neck, lymph nodes, and mediastinum: Subcentimeter calcified thyroid nodule (4:16). Unchanged retrotracheal calcified lymph node (4:23). No lymphadenopathy in the supraclavicular, axillary, mediastinal, or hilar regions. The esophagus is unremarkable. Heart, pericardium, and thoracic vessels: The thoracic aorta and main pulmonary artery are normal in caliber. The cardiac chambers are normal in size. Aortic annular calcifications are present. Moderate-severe [place] coronary artery atherosclerotic calcifications and coronary artery bypass graft are noted, although the study is not optimized for coronary assessment. No pericardial effusion or thickening. Bones and soft tissues: Median sternotomy with appropriate manubrial and sternal apposition. There is bony fusion of the manubrium and proximal sternum. The distal sternum is properly opposed without complete osseous fusion. The xiphoid-left anterior 5th rib anastomosis demonstrates a 1cm distraction with unchanged fractured inferior most median sternotomy wire; the distraction previously measured 0.8 cm on 02/18/2024 and 0.6 cm on 10/10/2023. Upper abdomen: No abnormality in the imaged upper abdomen. Localizer images: No additional findings. IMPRESSION IMPRESSION: 1. Unchanged fractured inferior most median sternotomy wire with increasing 1cm distraction. 2. Stable appearance of the posterior right upper lobe nodular opacity dating back to May 2023. Again this may represent atelectasis or scar, although indolent neoplasm cannot be completely excluded. Attention on follow-up is recommended. 3. Smoking related lung injury including centrilobular emphysema and respiratory bronchiolitis. Spinning Machine Tender: CHRISTOPHER Transcribe Date/Time: Sep 18 2024 2:39P Dictated by : MYRON EDMONDS MD This examination was interpreted and the report reviewed and electronically signed by: CHRIST BEAVER MD on Sep 18 2024 4:46PM EST [facility] CT Chest WO contrastOrdered By: Ccfior Provider on 09-18-2024 [facility] CNOVon 09-17-2024 CNOV Office Visit (THOSMN ) -- ELIZABETH QUEZADA ([id number]) 1960 F Date Time Provider Department 09/17/24 11:00 AM DANIA CRUZ During your visit today, we recorded the following information about you: Temperature Pulse Blood pressure Weight 98.1 degrees 86/minute 136/70 73.4 kg Height 1.651 m Dania Cruz APRN.DEHYDRATION UNIT OPERATOR 09/24/2024 6:13 PM [facility] [place] Arlette Goldstein Department of Cardiovascular Medicine DEPARTMENT OF CARDIAC SURGERY OUTPATIENT VISIT DATE September 16, 2024 OUTPATIENT VISIT TYPE FOLLOW UP Elizabeth Quezada is a 64 year old female who is here for return post op follow up visit. Most recent Cardiac Surgery: S/P on 07/29/2023 [facility] Surgeon: Willem Suarez MD Operations : CABG x4 (GURROLA->LAD, rSVG->OM1, rSVG->RCA->PDA) Discharged on 08/02/2023 HPI: patient presents today for persistent popping and clicking since surgery. Sxs are intermittent. Denies any fever or chills. Denies any redness warmth or drainage along incision site. Accompanied by friend. Allergies: ALLERGIES Allergen Reactions Tetracycline Unknown, GI Upset Januvia [Sitaglipti* Unknown Miconazole Itching, Swelling Rosuvastatin Unknown Allerg Xt,D.Farinae* Itching Cat Hair Standardiz* Itching sneezing House Dust Itching Medications: Current Outpatient Medications Medication Sig rosuvastatin (CRESTOR) 5 mg tablet Take 2.5 [...] No current facility-administered medications for this visit. Medications and Allergies have been reviewed. Pain scale :Yes chronic back. Also intermittent distal msi Appetite: good Activity: Walking limited by generalize weakness and ble vascular issues Sleep: difficulty staying asleep due to clicking with movement Incisions/Wounds: healed Do you feel safe in the home? Yes Dania Cruz APRN.DEHYDRATION UNIT OPERATOR CC: It's at the bottom, it pops and feel it click with movement PE: BP 136/70 Pulse 86 Temp 36.7 ?C (98.1 ?F) (Oral) Ht 165.1 cm (5' 5 ) Wt 73.4 kg (161 lb 12.8 oz) SpO2 98% BMI 26.92 kg/m? Appearance: well developed, white female, in no acute distress Cardiac: regular S1, S2, No murmur, No rub Lungs: Clear breath sounds bilaterally without wheeze or dullness Extremities: Edema: bilateral 1+ Sternotomy site: healing, clean, dry and intact, with noted distal movement Wound: NA SV [place] sites: healing and clean, dry and intact Procedures: N/A IMPRESSION AND PLAN: 1.S/P on 07/29/2023 [facility] Surgeon: Willem Suarez MD Operations : CABG x4 (GURROLA->LAD, rSVG->OM1, rSVG->RCA->PDA) Discharged on 08/02/2023 2. Sternal pain/movement - notable since surgery especially at the distal end - intermittent pain - [facility] fellow Dr. Rodarte came and assessed patient agree with exam will get CT chest today - at this time per fellow after seeing images, continue to monitor continue sternal precaution. Final CT results reviewed with Dr. Suarez conservative approach best - per pt agrees with recommend. would like to await for her vascular surgery - will notify Dr. Suarez's office if wishes to pursue further. CT CHEST :09/17/2024 IMPRESSION: 1. Unchanged fractured inferior most median sternotomy wire with increasing 1cm distraction. 2. Stable appearance of the posterior right upper lobe nodular opacity dating back to May 2023. Again this may represent atelectasis or scar, although indolent neoplasm cannot be completely excluded. Attention on follow-up is recommended. 3. Smoking related lung injury including centrilobular emphysema and respiratory bronchiolitis. (more content not included)... 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 Technique: Spiral CT acquisition of the chest from the thoracic inlet to the upper abdomen without contrast. MQ: CTCWO_6 CT Radiation dose: Integrated Dose-length product (DLP) for this visit = 288 mGy*cm CT Dose Reduction Employed: Automated exposure control (AEC) Comparison: CT chest 02/18/2024, 10/10/2023, 07/02/2023 RESULT: Limitations: None. Lines, tubes, and devices: None. Lung parenchyma and airways: Stable appearance of the posterior right upper lobe nodular opacity measuring approximately 1.1 cm on image 66, slightly distorting the right upper major fissure dating back to May 2023. The central airways are widely patent and devoid of endobronchial lesion. There is mild apical predominant centrilobular emphysema, mild bronchial wall thickening, scattered mucoid impactions and diffuse upper lobe predominant centrilobular micronodules (1-2 mm), not significant changed from 02/18/2024. Curvilinear right perifissural and lingular atelectasis, otherwise no focal consolidation. Few discrete pulmonary nodules are present bilaterally, the largest for reference: * Right upper lobe 3 mm (3:32) * Right upper lobe 3 mm (3:42) * Right upper lobe 3 mm (3:50) Pleural space: No pleural effusion. No pleural thickening. Lower neck, lymph nodes, and mediastinum: Subcentimeter calcified thyroid nodule (4:16). Unchanged retrotracheal calcified lymph node (4:23). No lymphadenopathy in the supraclavicular, axillary, mediastinal, or hilar regions. The esophagus is unremarkable. Heart, pericardium, and thoracic vessels: The thoracic aorta and main pulmonary artery are normal in caliber. The cardiac chambers are normal in size. Aortic annular calcifications are present. Moderate-severe [place] coronary artery atherosclerotic calcifications and coronary artery bypass graft are noted, although the study is not optimized for coronary assessment. No pericardial effusion or thickening. Bones and soft tissues: Median sternotomy with appropriate manubrial and sternal apposition. There is bony fusion of the manubrium and proximal sternum. The distal sternum is properly opposed without complete osseous fusion. The xiphoid-left anterior 5th rib anastomosis demonstrates a 1cm distraction with unchanged fractured inferior most median sternotomy wire; the distraction previously measured 0.8 cm on 02/18/2024 and 0.6 cm on 10/10/2023. Upper abdomen: No abnormality in the imaged upper abdomen. Localizer images: No additional findings. IMPRESSION: 1. Unchanged fractured inferior most median sternotomy wire with increasing 1cm distraction. 2. Stable appearance of the posterior right upper lobe nodular opacity dating back to May 2023. Again this may represent atelectasis or scar, although indolent neoplasm cannot be completely excluded. Attention on follow-up is recommended. 3. Smoking related lung injury including centrilobular emphysema and respiratory bronchiolitis. Spinning Machine Tender: CHRISTOPHER Transcribe Date/Time: Sep 18 2024 2:39P Dictated by : MYRON EDMONDS MD This examination was interpreted and the report reviewed and electronically signed by: CHRIST BEAVER MD on Sep 18 2024 4:46PM EST [id number] Normal [facility] CT Chest WO contraston 09-17 Radiology Study observation (narrative) [facility] John 07-29-2024 CNPN Telephone (HVICTR) -- PILARELIZABETH ([id number]) 1960 F Date Time Provider Department 07/29/24 WILLEM SUAREZ During your visit today, we recorded the following information about you: Pinky Gutierres RN 07/29/2024 7:09 PM Addendum [facility] Phone Encounter DATE of SERVICE: 07/29/2024 TIME of SERVICE: 6:51 PM Status: Non-urgent, Needs attention Service/Provider: Cardiac Surgery Willem Suarez M.D. Reason for call: Other Issue: Sternal issue Contact information: [phone] Resolution: Referral to to OPD Comments: Followed up on patient questionnaire regarding sternal concerns. Spoke with patient who states that she experiences occasional clicking and movement in sternal area. She has experienced this since shortly after surgery. Incision otherwise healing well. No fever or chills States only minimal pain associated with this but is concerned. She saw Dr. Larsen in March regarding this.. I advised patient she should follow up in [facility] OPD for evaluation and provided her the number. Discussed priority symptoms warranting ED assessment. Please advise if any further recommendations at this time. Pinky Gutierres RN Date of Resolution: 07/29/2024 Time of Resolution 6:51 PM Dania Cruz APRN.DEE DEE 08/02/2024 11:04 AM Signed Agree with below. Patient needs to make a follow up appointment with [facility] to assess her sternal concerns. Thanks, Dania Cruz APRN.DEHYDRATION UNIT OPERATOR [facility] Pinky Gutierres RN 08/03/2024 9:16 AM Signed I spoke with Mrs Quezada and reviewed PASHA recommendations for follow up. She states she will follow up next month due to financial concerns and weather. I provided her number to [facility] financial counselor and verified she has [facility] OPD number. Also instructed her she may follow up locally or in ED. She was grateful for call back. Allergies As of Date: 07/29/2024 Noted Allergy Reaction TETRACYCLINE 09/27/2022 16 - Unknown 8 - GI Upset Januvia (SITAGLIPTIN) 06/24/2019 16 - Unknown MICONAZOLE 01/06/2024 9 - Itching 7 - Swelling ROSUVASTATIN 06/24/2019 16 - Unknown ALLERG XTOKSANAINAE-D.PTERONYS 07/19/2022 9 - Itching CAT HAIR STANDARDIZED ALLERGENIC *09/27/2022 9 - Itching Comments: sneezing HOUSE DUST 07/19/2022 9 - Itching Date Reviewed: 04/28/2024 Reviewed by: Amalia Garcia LPN - Fully Assessed Reason for Visit: Post Dc Program Call - Needs Attn [[id number]] Prescriptions as of 08/03/2024 - rosuvastatin (CRESTOR) 5 mg tablet Take 2.5 mg by mouth once daily. - oxybutynin (DITROPAN) 5 mg tablet two times a day. - trospium chloride (TROSPIUM ORAL) Take by mouth once daily. - rivaroxaban (XARELTO) 2.5 mg tablet Take 1 tablet by mouth two times a day. - lisinopril (ZESTRIL) 20 mg tablet Take 1 tablet by mouth once daily. - TRULICITY 0.75 mg/0.5 mL pen injector Inject 0.75 mg subcutaneously one time a week. Patient should start on August 23, 2023. - VENTOLIN HFA 90 mcg/actuation inhaler Inhale 2 Puffs as instructed every 6 hours as needed for wheezing/shortness of breath. - aspirin 81 mg chewable tablet Take 1 tablet by mouth once daily. - clopidogrel (PLAVIX) 75 mg tablet Take 1 tablet by mouth once daily. - ezetimibe (ZETIA) 10 mg tablet Take 1 tablet by mouth once daily. - venlafaxine ER (EFFEXOR XR) 75 mg 24 hr capsule Take 1 capsule by mouth once daily. - metoprolol succinate ER (TOPROL XL) 50 mg 24 hr tablet Take 0.5 tablets by mouth two times a day. - docusate sodium (COLACE) 100 mg capsule Take 1 capsule by mouth two times a day. - JARDIANCE 10 mg tablet Take 1 tablet by mouth once daily. - metFORMIN (GLUCOPHAGE) 1,000 mg tablet Take 1,000 mg by mouth two times a day. Problem List As Of Date 07/29/2024 Noted Resolved Morbid obesity (HCC) [E66.01] 05/13/2023 Atherosclerosis of [place] arteries of extremity*06/14/2023 Essential hypertension [I10] 06/14/2023 Type 2 diabetes mellitus without complication, *06/14/2023 CAD (coronary artery disease) [I25.10] 06/14/2023 Atherosclerosis of [place] arteries of left leg *06/18/2023 Atherosclerosis of [place] arteries of extremiti*07/02/2023 Coronary artery disease involving [place] pack*07/02/2023 Lung nodule [R91.1] 07/12/2023 Discharge planning issues [Z75.8] 07/17/2023 Pre-op testing [Z01.818] 07/17/2023 Carotid stenosis, asymptomatic, bilateral [I65.*07/29/2023 CAD, multiple vessel [I25.10] 07/29/2023 Encounter for support and coordination of trans*08/01/2023 Hyperlipidemia LDL goal <70 [E78.5] 08/01/2023 PVD (peripheral vascular disease) (HCC) [I73.9] 08/01/2023 ABLA (acute blood loss anemia) [D62] 08/01/2023 Thrombocytopenia (HCC) [D69.6] 08/01/2023 Anxiety and depression [F41.9, F32.A] 08/01/2023 History of smoking [Z87.891] 08/01/2023 Primary hypertension [I10] 08/01/2023 Obesity, Class I, BMI 30-34.9 [E66.811] 08/01/2023 Hypo-osmolality and hy (more content not included)... Normal [facility] John 07-21-2024 CNPN Telephone (HIEN) -- ELIZABETH QUEZADA ([id number]) 1960 F Date Time Provider Department 07/21/24 PAPA SANTIAGO During your visit today, we recorded the following information about you: Anna Segundo 07/21/2024 9:32 AM Signed Patient called the office and stated that she has a back injury and hasn't stopped smoking, she's been depressed and just not feeling well. Patient also asked that I cancel her July 31, 2024 appointments and to send over her PVR results from 01/2024 to her primary doctor. Allergies As of Date: 07/21/2024 Noted Allergy Reaction TETRACYCLINE 09/27/2022 16 - Unknown 8 - GI Upset Januvia (SITAGLIPTIN) 06/24/2019 16 - Unknown MICONAZOLE 01/06/2024 9 - Itching 7 - Swelling ROSUVASTATIN 06/24/2019 16 - Unknown ALLERG XT,D.FARINAE-D.PTERONYS 07/19/2022 9 - Itching CAT HAIR STANDARDIZED ALLERGENIC *09/27/2022 9 - Itching Comments: sneezing HOUSE DUST 07/19/2022 9 - Itching Date Reviewed: 04/28/2024 Reviewed by: Amalia Garcia LPN - Fully Assessed Reason for Visit: Patient Update [1234] Prescriptions as of 07/21/2024 - rosuvastatin (CRESTOR) 5 mg tablet Take 2.5 mg by mouth once daily. - oxybutynin (DITROPAN) 5 mg tablet two times a day. - trospium chloride (TROSPIUM ORAL) Take by mouth once daily. - rivaroxaban (XARELTO) 2.5 mg tablet Take 1 tablet by mouth two times a day. - lisinopril (ZESTRIL) 20 mg tablet Take 1 tablet by mouth once daily. - TRULICITY 0.75 mg/0.5 mL pen injector Inject 0.75 mg subcutaneously one time a week. Patient should start on August 23, 2023. - VENTOLIN HFA 90 mcg/actuation inhaler Inhale 2 Puffs as instructed every 6 hours as needed for wheezing/shortness of breath. - aspirin 81 mg chewable tablet Take 1 tablet by mouth once daily. - clopidogrel (PLAVIX) 75 mg tablet Take 1 tablet by mouth once daily. - ezetimibe (ZETIA) 10 mg tablet Take 1 tablet by mouth once daily. - venlafaxine ER (EFFEXOR XR) 75 mg 24 hr capsule Take 1 capsule by mouth once daily. - metoprolol succinate ER (TOPROL XL) 50 mg 24 hr tablet Take 0.5 tablets by mouth two times a day. - docusate sodium (COLACE) 100 mg capsule Take 1 capsule by mouth two times a day. - JARDIANCE 10 mg tablet Take 1 tablet by mouth once daily. - metFORMIN (GLUCOPHAGE) 1,000 mg tablet Take 1,000 mg by mouth two times a day. Problem List As Of Date 07/21/2024 Noted Resolved Morbid obesity (HCC) [E66.01] 05/13/2023 Atherosclerosis of [place] arteries of extremity*06/14/2023 Essential hypertension [I10] 06/14/2023 Type 2 diabetes mellitus without complication, *06/14/2023 CAD (coronary artery disease) [I25.10] 06/14/2023 Atherosclerosis of [place] arteries of left leg *06/18/2023 Atherosclerosis of [place] arteries of extremiti*07/02/2023 Coronary artery disease involving [place] pack*07/02/2023 Lung nodule [R91.1] 07/12/2023 Discharge planning issues [Z75.8] 07/17/2023 Pre-op testing [Z01.818] 07/17/2023 Carotid stenosis, asymptomatic, bilateral [I65.*07/29/2023 CAD, multiple vessel [I25.10] 07/29/2023 Encounter for support and coordination of trans*08/01/2023 Hyperlipidemia LDL goal <70 [E78.5] 08/01/2023 PVD (peripheral vascular disease) ([facility]) [I73.9] 08/01/2023 ABLA (acute blood loss anemia) [D62] 08/01/2023 Thrombocytopenia ([facility]) [D69.6] 08/01/2023 Anxiety and depression [F41.9, F32.A] 08/01/2023 History of smoking [Z87.891] 08/01/2023 Primary hypertension [I10] 08/01/2023 Obesity, Class I, BMI 30-34.9 [E66.811] 08/01/2023 Hypo-osmolality and hyponatremia [E87.1] 08/02/2023 Encounter Status:Closed by ANNA SEGUNDO on 07/21/24 Normal [facility] CNOVon 04-28-2024 CNOV Office Visit (VASSMN ) -- ELIZABETH QUEZADA ([id number]) 1960 F Date Time Provider Department 04/28/24 10:30 AM PAPA SANTIAGO During your visit today, we recorded the following information about you: Pulse Blood pressure 84/minute 135/75 Papa Santiago MD 04/28/2024 2:41 PM Signed [facility] [place] DEPARTMENT OF VASCULAR SURGERY OUTPATIENT VISIT DATE [...] PAST MEDICAL HISTORY Diagnosis Date Atherosclerosis of [place] arteries of extremity with intermittent claudication (HCC) [...] equal, round and reactive. Cardiovascular: Normal S1 AND S2, no rubs, murmurs or gallops. No JVD., P (more content not included)... Normal [facility] 02-25-2024 CNPN Telephone (PMNA11) -- PILARELIZABETH ([id number]) 1960 F Date Time Provider Department 02/25/24 HILARY OTT [id number] During your visit today, we recorded the following information about you: Hilary Ott RN 02/26/2024 1:04 PM Addendum 02/25/24: Dr. Reyes requests patient be called with results of Ct Chest done 02/18/24: CT chest reviewed. Rt lung nodule opacity unchanged since 05/2023. Recommend continued monitoring -repeat CT imaging in 1 year. Called patient AND LVM and sent MyC. 02/26/24: Was able to speak with patient today to see if she had any questions. She advised she will be getting a CT Chest after upcoming surgery. Asked her to let me know so I can give report to Dr. Reyes or Yazmin Guajardo. Hilary Ott RN Respiratory [place] [facility] Allergies As of Date: 02/25/2024 Noted Allergy Reaction TETRACYCLINE 09/27/2022 16 - Unknown 8 - GI Upset Januvia (SITAGLIPTIN) 06/24/2019 16 - Unknown MICONAZOLE 01/06/2024 9 - Itching 7 - Swelling ROSUVASTATIN 06/24/2019 16 - Unknown ALLERG XT,D.FARINAE-D.PTERONYS 07/19/2022 9 - Itching CAT HAIR STANDARDIZED ALLERGENIC *09/27/2022 9 - Itching Comments: sneezing HOUSE DUST 07/19/2022 9 - Itching Date Reviewed: 01/28/2024 Reviewed by: Cyndi Haynes LPN - Fully Assessed Reason for Visit: CALLED CT RESULT [Other] Prescriptions as of 02/26/2024 - oxybutynin (DITROPAN) 5 mg tablet two times a day. - trospium chloride (TROSPIUM ORAL) Take by mouth once daily. - rivaroxaban (XARELTO) 2.5 mg tablet Take 1 tablet by mouth two times a day. - lisinopril (ZESTRIL) 20 mg tablet Take 1 tablet by mouth once daily. - TRULICITY 0.75 mg/0.5 mL pen injector Inject 0.75 mg subcutaneously one time a week. Patient should start on August 23, 2023. - VENTOLIN HFA 90 mcg/actuation inhaler Inhale 2 Puffs as instructed every 6 hours as needed for wheezing/shortness of breath. - aspirin 81 mg chewable tablet Take 1 tablet by mouth once daily. - clopidogrel (PLAVIX) 75 mg tablet Take 1 tablet by mouth once daily. - ezetimibe (ZETIA) 10 mg tablet Take 1 tablet by mouth once daily. - venlafaxine ER (EFFEXOR XR) 75 mg 24 hr capsule Take 1 capsule by mouth once daily. - metoprolol succinate ER (TOPROL XL) 50 mg 24 hr tablet Take 0.5 tablets by mouth two times a day. - docusate sodium (COLACE) 100 mg capsule Take 1 capsule by mouth two times a day. - JARDIANCE 10 mg tablet Take 1 tablet by mouth once daily. - metFORMIN (GLUCOPHAGE) 1,000 mg tablet Take 1,000 mg by mouth two times a day. Problem List As Of Date 02/25/2024 Noted Resolved Morbid obesity (HCC) [E66.01] 05/13/2023 Atherosclerosis of [place] arteries of extremity*06/14/2023 Essential hypertension [I10] 06/14/2023 Type 2 diabetes mellitus without complication, *06/14/2023 CAD (coronary artery disease) [I25.10] 06/14/2023 Atherosclerosis of [place] arteries of left leg *06/18/2023 Atherosclerosis of [place] arteries of extremiti*07/02/2023 Coronary artery disease involving [place] pack*07/02/2023 Lung nodule [R91.1] 07/12/2023 Discharge planning issues [Z75.8] 07/17/2023 Pre-op testing [Z01.818] 07/17/2023 Carotid stenosis, asymptomatic, bilateral [I65.*07/29/2023 CAD, multiple vessel [I25.10] 07/29/2023 Encounter for support and coordination of trans*08/01/2023 Hyperlipidemia LDL goal <70 [E78.5] 08/01/2023 PVD (peripheral vascular disease) (HCC) [I73.9] 08/01/2023 ABLA (acute blood loss anemia) [D62] 08/01/2023 Thrombocytopenia (HCC) [D69.6] 08/01/2023 Anxiety and depression [F41.9, F32.A] 08/01/2023 History of smoking [Z87.891] 08/01/2023 Primary hypertension [I10] 08/01/2023 Obesity, Class I, BMI 30-34.9 [E66.9] 08/01/2023 Hypo-osmolality and hyponatremia [E87.1] 08/02/2023 Encounter Status:Closed by HILARY OTT on 02/25/24 Normal [facility] CT CHEST WO IVCONon 02-18-20 CT CHEST WO IVCON * * *Final Report* * * DATE OF EXAM: Feb 18 2024 2:09PM [facility] [id number] - CT CHEST WO IVCON / PROCEDURE REASON: multiple diagnoses * * * * Physician Interpretation * * * * EXAMINATION: CHEST CT WITHOUT CONTRAST CLINICAL HISTORY: 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) PAD (peripheral artery disease) (HCC) Primary hypertension Hyperlipidemia, unspecified hyperlipidemia type 64-year-old female 40 pack year smoker, EtOH 4/w; uses marijuana; diabetes, lung nodules Technique: Spiral CT acquisition of the chest from the thoracic inlet to the upper abdomen without contrast. MQ: [id number] CT Radiation dose: Integrated Dose-length product (DLP) for this visit = 235 mGy*cm CT Dose Reduction Employed: Automated exposure control (AEC) Comparison: 10/10/2023 RESULT: Limitations: Minimal cardiac pulsation related motion noted. [place] (topogram) images: No additional findings. Lines, tubes, and devices: None. Lung parenchyma: On lung windows, minimal-mild bronchial wall thickening noted, and may relate to airways inflammation. Airways are otherwise clear. Redemonstration of linear opacity with peripheral groundglass attenuation and localized intrinsic area of increased attenuation (96 Hounsfield units) suggestive of calcification, visible back to 06/14/2023 exam. Cluster, small peripheral nodules are noted near the right lung apex images 23-32 (including indistinct centrilobular opacities, similar in appearance to 10/10/2023 exam and probably visible back to 06/14/2023 exam. Localized subpleural opacity along the left mediastinal pleural margin on image 54 is unchanged from 10/10/2023 exam, but new since 06/14/2023 exam. No new or enlarging nodules readily appreciated. Pleural space: No pleural effusion. No pneumothorax. Lower neck, lymph nodes, and mediastinum: Visualized portions of the thyroid appear stable, with left retrotracheal intrathoracic extension, demonstrating focal calcification, image 21. No progressive axillary or supraclavicular lymphadenopathy meeting size criteria noted. Intrathoracically, no progressive intrathoracic lymphadenopathy meeting size criteria noted. Heart, pericardium, and thoracic vessels: CABG changes are noted. Severe multivessel walk[place] coronary artery calcifications noted. Atherosclerotic calcifications of [...] to 06/14/2023, (probably acute at that time). Upper abdomen: Limited images demonstrate stable upper abdominal structures. Tiny splenule. IMPRESSION: 1. Stable appearance of the posterior right upper lobe elongated opacity with peripheral groundglass attenuation with localized, mild intrinsic calcification suspected, visible back to 06/14/2023 exam, slightly distorting the right upper major fissure. While this lesion could represent part solid nodule/indolent neoplasm, post inflammatory scar is considered as well. Continued follow-up in one year recommended. 2. Localized peripheral centrilobular nodules redemonstrated, near the right apex, likely infectious/inflammatory or sequela of prior infection. 3. No enlarging lymph nodes. Spinning Machine Tender: PSCB Transcribe Date/Time: Feb 19 2024 3:30P Dictated by : NATHAN QUINONES MD This examination was interpreted and the report reviewed and electronically signed by: NATHAN QUINONES MD on Feb 19 2024 3:57PM EST [id number] Normal [facility] CNOVon 01-28-2024 CNOV Office Visit (HIEN ) -- ELIZABETH QUEZADA ([id number]) 1960 F Date Time Provider Department 01/28/24 11:45 AM PAPA SANTIAGO During your visit today, we recorded the following information about you: Pulse Blood pressure 83/minute 147/70 Papa Santiago MD 01/28/2024 12:38 PM Signed Heart [facility] V[facility] Thor[facility] [place] DEPARTMENT OF VASCULAR SURGERY OUTPATIENT VISIT DATE [...] spirits. PAST MEDICAL HISTORY 06/14/2023: Atherosclerosis of [place] arteries of extremity with intermittent claudication ([facility]) 06/14/2023: CAD (coronary artery disease) No date: Carpal tunnel syndrome No date: Cataract No date: Coronary atherosclerosis No date: Dental disease No date: Depression 06/14/2023: Diabetes mellitus type 2 with peripheral artery disease ([facility]) 06/14/2023: Essential hypertension No date: Family hx-malignancy No date: Former smoker No date: Fractures No date: Generalized anxiety disorder No date: Hematoma No date: HTN (hypertension) No date: Injury of back No date: Lung nodules No date: Obesity No date: PAD (peripheral artery disease) ([facility]) No date: Visual impairment PAST SURGICAL HISTORY [...] equal, round and reactive. Cardiovascular: Normal S1 AND S2, no rubs, murmurs or gallops. No [...] with PAD and bilateral lower extremity claudication. P (more content not included)... Normal [facility] PVR LEG LOVE VAS LABon 2023 PVR LEG LOVE VAS LAB Non-Invasive Vascula r Laboratory Main [place] F30 Lower Extremity Arterial Physiology Study Bilateral/Complete Date of service/time: 01/28/2024 11:15:55 AM Name: MS. ELIZABETH QUEZADA Date of : 1960 Age: 64 years Gender: F Clinical Indication Peripheral arterial disease and history of iliac artery stenting from [facility] 11/28/2022. TECHNIQUE -------- An arterial physiological examination was performed, including measurement of blood pressures using continuous wave Doppler and recording of plethysmographic with or without Doppler waveforms at the below-mentioned limb segments. FINDINGS -------- RIGHT SIDE AT REST Right Pressures Brachial: 134 mmHg High thigh: 128 mmHg Low thigh: 95 mmHg Calf: 80 mmHg Ankle dorsalis pedis: 70 mmHg DEYANIRA: 0.52 Ankle posterior tibial: 91 mmHg DEYANIRA: 0.68 Digit: 51 mmHg Right PVR Waveforms High thigh: Normal. Low thigh: Mildly dampened. Calf: Moderately dampened. Ankle: Moderately dampened. Transmetatarsal: Moderately dampened. Digit: Moderately dampened. LEFT SIDE AT REST Left Pressures Brachial: 130 mmHg High thigh: 134 mmHg Low thigh: 111 mmHg Calf: 925 mmHg Ankle dorsalis pedis: 92 mmHg DEYANIRA: 0.69 Ankle posterior tibial: 93 mmHg DEYANIRA: 0.69 Digit: 27 mmHg Left PVR Waveforms High thigh: Normal. Low thigh: Mildly dampened. Calf: Moderately dampened. Ankle: Moderately dampened. Transmetatarsal: Moderately dampened. Digit: Severely dampened. IMPRESSION Compared to prior study of 06/14/2023, no significant change. RIGHT SIDE Resting right ankle brachial index: 0.68 Right toe brachial index: 0.38 Abnormal ankle brachial index at rest diagnostic of peripheral artery disease. Abnormal toe brachial index at rest is evidence of peripheral artery disease. Right ankle: Moderate disease at rest. Right iliofemoral disease. Right superficial femoral disease. Right distal superficial femoral and/or popliteal disease. LEFT SIDE Resting left ankle brachial index: 0.69 Left toe brachial index: 0.20 Abnormal ankle brachial index at rest diagnostic of peripheral artery disease. Abnormal toe brachial index at rest is evidence of peripheral artery disease. Left ankle: Moderate disease at rest. Left superficial femoral disease. Left distal superficial femoral and/or popliteal disease. Technologist: Alicja Lopez [facility] Ordering physician: PAPA SANTIAGO Interpreting physician: Aleksey Muñiz MD, RPVI Final CC [employer] Image : [id number] icsSISUID See Link below for Image Normal [facility] CNOVon 01-16-2024 CNOV Office Visit (CARCMN ) -- ELIZABETH QUEZADA ([id number]) 1960 F Date Time Provider Department 01/16/24 11:15 AM SHANICE LARSEN CARCMN During your visit today, we recorded the following information about you: Pulse Blood pressure Weight Height 88/minute 110/69 78 kg 1.651 m Shanice Larsen MD 01/17/2024 12:17 PM Signed [facility] [place] Arlette Goldstein Department of Cardiovascular Medicine SECTION OF CLINICAL CARDIOLOGY OUTPATIENT VISIT DATE January 16, 2024 OUTPATIENT VISIT TYPE ESTABLISHED PRIMARY CARE PHYSICIAN: Nano Nguyen [address] [place] [address] CHIEF COMPLAINT: Cv management HISTORY OF PRESENT [...] PAST MEDICAL HISTORY Diagnosis Date Atherosclerosis of [place] arteries of extremity with intermittent claudication ([facility]) 06/14/2023 CAD (coronary artery disease) 06/14/2023 Carpal tunnel syndrome Cataract Coronary atherosclerosis Dental disease Depression Diabetes mellitus type 2 with peripheral artery disease (HCC) 06/14/2023 Essential hypertension 06/14/2023 Family hx-malignancy Former smoker Fractures Generalized anxiety disorder Hematoma HTN (hypertension) Injury of back Lung nodules Obesity PAD (peripheral artery disease) ([facility]) Visual impairment PAST SURGICAL HISTORY Procedure Laterality [...] habits, Blood in stool, Dark black stools MUSCULOSKELETAL (more content not included)... Normal [facility] ECG COMPLETEon 01-16-2024 ECG COMPLETE Ventricular Rate : 8 8 BPM Atrial Rate : 88 BPM P-R Interval : 198 ms QRS Duration : 98 ms Q-T Interval : 362 ms QTC Calculation(Bazett) : 438 ms Calculated P [place] : 62 degrees Calculated R [place] : 47 degrees Calculated T [place] : 93 degrees NORMAL SINUS RHYTHM INFERIOR MYOCARDIAL INFARCTION , AGE UNDETERMINED ABNORMAL ECG Confirmed by DAYANA HINTON MD ([id number]) on 02/05/2024 11:09:59 PM NAME : ELIZABETH QUEZADA PID : [id number] : 1960 Gender : Female Race : ORD : [id number] Procedure Date : Jan 16 2024 11:34:16 Edit Date : Feb 05 2024 23:10:02 Diagnosis: NORMAL SINUS RHYTHM INFERIOR MYOCARDIAL INFARCTION , AGE UNDETERMINED ABNORMAL ECG Confirmed by DAYANA HINTON MD ([id number]) on 02/05/2024 11:09:59 PM Test Reason : Location : 314 : J14 Overread By : MARY JANE LAMB,DAYANA Edited By : MARY JANE LAMB,DAYANA Referred By : SHANICE LARSEN Acquired by : ELIZABETH [facility] 01-01-2024 CNPN Telephone (4CQ) -- RICKEYELIZABETH Shah ([id number]) 1960 F Date Time Provider Department 01/01/24 NANO NGUYEN 4CQ During your visit today, we recorded the following information about you: Elton Anderson 01/01/2024 9:14 AM Signed Reason for call: Ms Quezada called and she would like to schedule an appointment with DR Qiana Neves and cell number [phone] DiagnosisAtherosclerosis of walk[place] river arteries of extremities with rest pain, bilateral legs Kind Regards Afua Cerrato 01/02/2024 2:04 PM Signed Oj nunez, any testing needed for this follow up? [place] Afua Gastelum 01/03/2024 10:33 AM Signed Patient scheduled 01/28/2024 Allergies As of Date: 01/01/2024 Noted Allergy Reaction TETRACYCLINE 09/27/2022 16 - Unknown 8 - GI Upset Januvia (SITAGLIPTIN) 06/24/2019 16 - Unknown ROSUVASTATIN 06/24/2019 16 - Unknown ALLERG XT,D.FARINAE-D.PTERONYS 07/19/2022 9 - Itching CAT HAIR STANDARDIZED ALLERGENIC *09/27/2022 9 - Itching Comments: sneezing HOUSE DUST 07/19/2022 9 - Itching Date Reviewed: 10/10/2023 Reviewed by: Martin Garnett MA - Fully Assessed Reason for Visit: Appointment [186] Prescriptions as of 01/03/2024 - lisinopril (ZESTRIL) 20 mg tablet Take 1 tablet by mouth once daily. - TRULICITY 0.75 mg/0.5 mL pen injector Inject 0.75 mg subcutaneously one time a week. Patient should start on August 23, 2023. - VENTOLIN HFA 90 mcg/actuation inhaler Inhale 2 Puffs as instructed every 6 hours as needed for wheezing/shortness of breath. - aspirin 81 mg chewable tablet Take 1 tablet by mouth once daily. - clopidogrel (PLAVIX) 75 mg tablet Take 1 tablet by mouth once daily. - ezetimibe (ZETIA) 10 mg tablet Take 1 tablet by mouth once daily. - venlafaxine ER (EFFEXOR XR) 75 mg 24 hr capsule Take 1 capsule by mouth once daily. - metoprolol succinate ER (TOPROL XL) 50 mg 24 hr tablet Take 0.5 tablets by mouth two times a day. - docusate sodium (COLACE) 100 mg capsule Take 1 capsule by mouth two times a day. - JARDIANCE 10 mg tablet Take 1 tablet by mouth once daily. - metFORMIN (GLUCOPHAGE) 1,000 mg tablet Take 1,000 mg by mouth two times a day. Problem List As Of Date 01/01/2024 Noted Resolved Morbid obesity (HCC) [E66.01] 05/13/2023 Atherosclerosis of [place] arteries of extremity*06/14/2023 Essential hypertension [I10] 06/14/2023 Type 2 diabetes mellitus without complication, *06/14/2023 CAD (coronary artery disease) [I25.10] 06/14/2023 Atherosclerosis of [place] arteries of left leg *06/18/2023 Atherosclerosis of [place] arteries of extremiti*07/02/2023 Coronary artery disease involving [place] pack*07/02/2023 Lung nodule [R91.1] 07/12/2023 Discharge planning issues [Z75.8] 07/17/2023 Pre-op testing [Z01.818] 07/17/2023 Carotid stenosis, asymptomatic, bilateral [I65.*07/29/2023 CAD, multiple vessel [I25.10] 07/29/2023 Encounter for support and coordination of trans*08/01/2023 Hyperlipidemia LDL goal <70 [E78.5] 08/01/2023 PVD (peripheral vascular disease) (HCC) [I73.9] 08/01/2023 ABLA (acute blood loss anemia) [D62] 08/01/2023 Thrombocytopenia (HCC) [D69.6] 08/01/2023 Anxiety and depression [F41.9, F32.A] 08/01/2023 History of smoking [Z87.891] 08/01/2023 Primary hypertension [I10] 08/01/2023 Obesity, Class I, BMI 30-34.9 [E66.9] 08/01/2023 Hypo-osmolality and hyponatremia [E87.1] 08/02/2023 Encounter Status:Closed by ELTON ANDERSON on 01/01/24 Normal [facility] XR Chest 2 Viewson [facility] Reminderson 06-10-2023 Reminders - From: Celia Donohue LPN To: GSN - Clinical; Sent: 06/10/2023 15:55:47 EST Show up: 04/10/2025 07:00:00 EDT Subject: colonoscopy recall Due Date/Time: 05/11/2025 07:00:00 EST Reminder/Recall Patient due for surveillance colonoscopy 05/11/2025. Normal [facility] Comprehensive metabolic 2000 panelon 05-29-2023 Albumin [Mass/Vol] 4.2 g/dL 3.9 - 4.9 g/dL [facility] ALP [Catalytic activity/Vol] 78 U/L 34 - 123 U/L [facility] ALT [Catalytic activity/Vol] 17 U/L 7 - 38 U/L [facility] Anion gap [Moles/Vol] 15 mmol/L 9 - 18 mmol/L [facility] AST [Catalytic activity/Vol] 16 U/L 13 - 35 U/L [facility] Bilirubin [Mass/Vol] 0.2 mg/dL 0.2 - 1 .3 mg/dL [facility] Calcium [Mass/Vol] 10.5 mg/dL High 8.5 - 10. 2 mg/dL [facility] Chloride [Moles/Vol] 100 mmol/L 97 - 10 5 mmol/L [facility] CO2 [Moles/Vol] 21 mmol/L Low 22 - 30 mmol/L [facility] Creatinine [Mass/Vol] 0.82 mg/dL 0.58 - 0.96 mg/dL [facility] Estimated Glomerular Filtration Rate 79 mL/min/1.73m >=60 mL/min/1.7 3m [facility] Glucose [Mass/Vol] 216 mg/dL High 74 - 99 mg/dL [facility] Potassium [Moles/Vol] 4.8 mmol/L 3.7 - 5.1 mmol/L [facility] Protein [Mass/Vol] 6.7 g/dL 6.3 - 8.0 g/dL [facility] Sodium [Moles/Vol] 136 mmol/L 136 - 144 mmol/L [facility] Urea nitrogen [Mass/Vol] 22 mg/dL High 7 - 21 mg/dL [facility] LIPID PANEL, NONFASTINGon Cholesterol [Mass/Vol] 220 mg/dL High <200 mg/dL [facility] HDL Cholesterol, Nonfasting 35 mg/dL Low >39 mg/dL [facility] LDL Cholesterol, Nonfasting [facility] LDL/HDL Ratio, Nonfasting [facility] Non HDL Cholesterol, Nonfasting 185 mg/dL High <130 mg/dL [facility] Total Chol/HDL Ratio, Nonfasting 6.29 mg/dL High <5.10 mg/dL [facility] Triglycerides, Nonfasting 414 mg/dL High <150 mg/dL [facility] VLDL Cholesterol, Nonfasting [facility] CBC panel Auto (Bld)on 05-28 Erythrocyte distribution width (RBC) [Ratio] 13.5 % 11.5 - 15.0 % [facility] Hematocrit (Bld) [Volume fraction] 47.6 % High 36.0 - 46.0 % [facility] Hemoglobin (Bld) [Mass/Vol] 15.6 g/dL High 11.5 - 15.5 g/dL [facility] MCH (RBC) [Entitic mass] 31.1 pg 26.0 - 34.0 pg [facility] MCHC (RBC) [Mass/Vol] 32.8 g/dL 30.5 - 36.0 g/dL [facility] MCV (RBC) [Entitic vol] 94.8 fL 80.0 - 100.0 fL [facility] Nucleated RBC (Bld) [#/Vol] <0.01 k/uL [facility] Platelet mean volume (Bld) [Entitic vol] 9.9 fL 9.0 - 12.7 fL [facility] Platelets (Bld) [#/Vol] 295 10*3/uL 150 - 400 k/uL [facility] RBC (Bld) [#/Vol] 5.02 10*6/uL 3.90 - 5.20 m/uL [facility] WBC (Bld) [#/Vol] 8.12 10*3/uL 3.70 - 11.00 k/uL [facility] NT PRO BNPon 05-28-2023 Natriuretic peptide.B prohormone N-Terminal [Mass/Vol] 200 pg/mL High <125 pg/mL [facility] CBC panel Auto (Bld)on 04-03 Erythrocyte distribution width (RBC) [Ratio] 13.0 % 11.5 - 15.0 % [facility] Hematocrit (Bld) [Volume fraction] 53.9 % High 36.0 - 46.0 % [facility] Hemoglobin (Bld) [Mass/Vol] 18.6 g/dL High 11.5 - 15.5 g/dL [facility] MCH (RBC) [Entitic mass] 29.8 pg 26.0 - 34.0 pg [facility] MCHC (RBC) [Mass/Vol] 34.5 g/dL 30.5 - 36.0 g/dL [facility] MCV (RBC) [Entitic vol] 86.2 fL 80.0 - 100.0 fL [facility] Nucleated RBC (Bld) [#/Vol] <0.01 k/uL [facility] Platelet mean volume (Bld) [Entitic vol] 9.6 fL 9.0 - 12.7 fL [facility] Platelets (Bld) [#/Vol] 269 10*3/uL 150 - 400 k/uL [facility] RBC (Bld) [#/Vol] 6.25 10*6/uL High 3.90 - 5.20 m/uL [facility] WBC (Bld) [#/Vol] 10.50 10*3/uL 3.70 - 11.00 k/uL [facility] Comprehensive metabolic 2000 panelon 04-03-2023 Albumin [Mass/Vol] 4.6 g/dL 3.9 - 4.9 g/dL [facility] ALP [Catalytic activity/Vol] 82 U/L 34 - 123 U/L [facility] ALT [Catalytic activity/Vol] 15 U/L 7 - 38 U/L [facility] Anion gap [Moles/Vol] 19 mmol/L High 9 - 18 mmol/L [facility] AST [Catalytic activity/Vol] 14 U/L 13 - 35 U/L [facility] Bilirubin [Mass/Vol] 0.9 mg/dL 0.2 - 1 .3 mg/dL [facility] Calcium [Mass/Vol] 10.5 mg/dL High 8.5 - 10. 2 mg/dL [facility] Chloride [Moles/Vol] 94 mmol/L Low 97 - 10 5 mmol/L [facility] CO2 [Moles/Vol] 18 mmol/L Low 22 - 30 mmol/L [facility] Creatinine [Mass/Vol] 0.81 mg/dL 0.58 - 0.96 mg/dL [facility] Estimated Glomerular Filtration Rate 81 mL/min/1.73m >=60 mL/min/1.7 3m [facility] Glucose [Mass/Vol] 241 mg/dL High 74 - 99 mg/dL [facility] Potassium [Moles/Vol] 4.2 mmol/L 3.7 - 5.1 mmol/L [facility] Protein [Mass/Vol] 7.5 g/dL 6.3 - 8.0 g/dL [facility] Sodium [Moles/Vol] 131 mmol/L Low 136 - 144 mmol/L [facility] Urea nitrogen [Mass/Vol] 20 mg/dL 7 - 21 mg/dL [facility] HbA1c (Bld)on 04-03-2023 Average glucose Estimated from glycated hemoglobin (Bld) [Mass/Vol] 163 mg/dL [facility] HbA1c (Bld) [Mass fraction] 7.3 % High 4.3 - 5.6 % [facility] PT panel Coag (PPP)on 2022 INR Coag (PPP) [Relative time] 1.1 {INR} 0.9 - 1.3 [facility] PT Coag (PPP) [Time] 11.4 s 9.7 - 1 3.0 sec [facility] Activated partial thrombopla stin time (aPTT) in platelet poor plasma by coagulation aOrdered By: Patrizia Melendrez on 03-20-2023 aPTT Coag (PPP) [Time] 28.8 s 25.1-36.[address] [facility] Comment on above: A hematocrit value g reater than 55% may lead to inaccurate results in coagulation testing. Patients having hematocrit values >55% require a special collection tube for coagulation studies. Please contact the laboratory at [phone] for redraw instructions. Basophils Auto (Bld) [#/Vol] Ordered By: Patrizia Melendrez on 03-20-2023 Basophils (Bld) [#/Vol] 0.0 10*3/uL 0.0-0.2 [facility] Basophils/100 WBC Auto (Bld) Ordered By: Patrizia Melendrez on 03-20-2023 Basophils/100 WBC (Bld) 0.4 % . [facility] Carbon dioxide, total [Moles /volume] in Serum or PlasmaOrdered By: Patrizia Melendrez on 03-20-2023 CO2 [Moles/Vol] 28.8 mmol/L 21.0-31.0 [facility] Chloride [Moles/volume] in S radha or PlasmaOrdered By: Patrizia Melendrez on 03-20-2023 Chloride [Moles/Vol] 105 mmol/L 98-107 [facility] Cholesterol [Mass/volume] in Serum or PlasmaOrdered By: Partizia Melendrez on 03-20-2023 Cholesterol [Mass/Vol] 270 mg/dL 140-[address] [facility] Comment on above: Chol less than 200 m g/dl low riskChol 201-239 mg/dl borderline riskChol 240 mg/dl and greater high risk Cholesterol in LDL Calc [Mas s/Vol]Ordered By: Patrizia Melendrez on 03-20-2023 Cholesterol in LDL [Mass/Vol] 170 mg/dL 0-100 [facility] Comment on above: LDL ATP III CLASSIFI CATIONLDL less than 100 mg/dL OptimalLDL 100-129 mg/dL Near or above optimalLDL 130-159 mg/dL Borderline highLDL 160-189 mg/dL HighLDL greater than 189 mg/dL Very high Cholesterol in VLDL Calc [Ma ss/Vol]Ordered By: Patrizia Melendrez on 03-20-2023 Cholesterol in VLDL [Mass/Vol] 55 mg/dL [facility] Creatinine [Mass/volume] in Serum or PlasmaOrdered By: Patrizia Melendrez on 03-20-2023 Creatinine [Mass/Vol] 0.83 mg/dL 0.60-1.20 [facility] Eosinophils Auto (Bld) [#/Vo l]Ordered By: Patrizia Melendrez on 03-20-2023 Eosinophils (Bld) [#/Vol] 0.3 10*3/uL 0.0-0.45 [facility] Eosinophils/100 WBC Auto (Bl d)Ordered By: Patrizia Melendrez on 03-20-2023 Eosinophils/100 WBC (Bld) 4.1 % . [facility] Erythrocyte distribution wid th Auto (RBC) [Ratio]Ordered By: Patrizia Melendrez on 03-20-2023 Erythrocyte distribution width (RBC) [Ratio] 14.4 % 11.9-15.3 [facility] Hematocrit Auto (Bld) [Volum e fraction]Ordered By: Patrizia Melendrez on 03-20-2023 Hematocrit (Bld) [Volume fraction] 47.2 % 34.0-46.4 [facility] Hemoglobin [Mass/volume] in BloodOrdered By: Patrizia Melendrez on 03-20-2023 Hemoglobin (Bld) [Mass/Vol] 16.0 g/dL 11.8-15.4 [facility] INR in Platelet poor plasma by Coagulation assayOrdered By: Patrizia Melendrez on 03-20-2023 INR Coag (PPP) [Relative time] 0.9 {INR} [facility] Comment on above: INR Therapeutic Rang e [...] RBC Auto (Bld) [#/Vol] 7.3 10*3/uL 3.8-11.6 [facility] Lymphocytes Auto (Bld) [#/Vo l]Ordered By: Patrizia Melendrez on 03-20-2023 Lymphocytes (Bld) [#/Vol] 2.5 10*3/uL 1.00-4.8 [facility] Lymphocytes/100 WBC Auto (Bl d)Ordered By: Patrizia Melendrez on 03-20-2023 Lymphocytes/100 WBC (Bld) 34.2 % . [facility] MCH Auto (RBC) [Entitic mass ]Ordered By: Patrizia Melendrez on 03-20-2023 MCH (RBC) [Entitic mass] 30.5 pg 24.7-34.3 [facility] MCHC Auto (RBC) [Mass/Vol]Or dered By: Patrizia Melendrez on 03-20-2023 MCHC (RBC) [Mass/Vol] 33.9 g/dL 32.0-35.0 [facility] MCV Auto (RBC) [Entitic vol] Ordered By: Patrizia Melendrez on 03-20-2023 MCV (RBC) [Entitic vol] 89.9 fL 80-100 [facility] Monocytes Auto (Bld) [#/Vol] Ordered By: Patrizia Melendrez on 03-20-2023 Monocytes (Bld) [#/Vol] 0.6 10*3/uL 0.0-0.8 [facility] Monocytes/100 WBC Auto (Bld) Ordered By: Patrizia Melendrez on 03-20-2023 Monocytes/100 WBC (Bld) 8.4 % . [facility] Neutrophils Auto (Bld) [#/Vo l]Ordered By: Patrizia Melendrez on 03-20-2023 Neutrophils (Bld) [#/Vol] 3.8 10*3/uL 1.8-7.7 [facility] Neutrophils/100 WBC Auto (Bl d)Ordered By: Patrizia Melendrez on 03-20-2023 Neutrophils/100 WBC (Bld) 52.9 % . [facility] No Panel InformationOrdered By: Patrizia Mleendrez on 03-20-2023 Estimated GFR (CKD-EPI) > 60.0 mL/Min [facility] Creatinine Clearance (Chem N/A [facility] Nucleated erythrocytes [Pres ence] in Blood by Automated countOrdered By: Patrizia Melendrez on 03-20-2023 Nucleated RBC Auto Ql (Bld) 0.1 /100{WBC} 0-0.5 [facility] Platelet mean volume Auto (B ld) [Entitic vol]Ordered By: Patrizia Melendrez on 03-20-2023 Platelet mean volume (Bld) [Entitic vol] 8.0 fL 6.3-10.7 [facility] Platelets Auto (Bld) [#/Vol] Ordered By: Patrizia Melendrez on 03-20-2023 Platelets (Bld) [#/Vol] 232 10*3/uL 150-450 [facility] Potassium [Moles/volume] in Serum or PlasmaOrdered By: Patrizia Melendrez on 03-20-2023 Potassium [Moles/Vol] 4.3 mmol/L 3.5-5.1 [facility] Prothrombin time (PT)Ordered By: Patrizia Melendrez on 03-20-2023 PT Coag (PPP) [Time] 11.2 s 9.0-12.9 [facility] Comment on above: A hematocrit value g reater than 55% may lead to inaccurate results in coagulation testing. Patients having hematocrit values >55% require a special collection tube for coagulation studies. Please contact the laboratory at [phone] for redraw instructions. RBC Auto (Bld) [#/Vol]Ordere d By: Patrizia Melendrez on 03-20-2023 RBC (Bld) [#/Vol] 5.25 10*6/uL 3.60-5.00 [facility] Serum or plasma anion gap de terminationOrdered By: Patrizia Melendrez on 03-20-2023 Anion gap [Moles/Vol] 8.5 mmol/L 6.0-15.0 [facility] Serum or plasma high density lipoprotein (HDL) cholesterol measurementOrdered By: Patrizia Melendrez on 03-20-2023 Cholesterol in HDL [Mass/Vol] 45 mg/dL 23-92 [facility] Comment on above: HDL CHOL ATP-III CLA SSIFICATION Cardiovascular RiskHDL > or equal to 60 mg/dL LOWHDL < 40 mg/dL HIGH Serum or plasma total choles terol/high density lipoprotein (HDL) cholesterol mass ratOrdered By: Patrizia Melendrez on 03-20-2023 Cholesterol.total/Chol esterol in HDL [Mass ratio] 6.0 {ratio} <5.0 [facility] Sodium [Moles/volume] in Ser um or PlasmaOrdered By: Patrizia Melendrez on 03-20-2023 Sodium [Moles/Vol] 138 mmol/L 136-145 [facility] Triglyceride [Mass/volume] i n Serum or PlasmaOrdered By: Patrizia Melendrez on 03-20-2023 Triglyceride [Mass/Vol] 277 mg/dL 0-149 [facility] Comment on above: TRIG ATP III CLASSIF ICATIONTRIG less than 150 mg/dL NormalTRIG 150-199 mg/dL Borderline highTRIG 200-500 mg/dL High TRIG greater than 500 mg/dL Very highStandard traceable to the Center for Disease Conrtrol and Prevention (CDC) test method. Urea nitrogen [Mass/volume] in Serum or PlasmaOrdered By: Patrizia Melendrez on 03-20-2023 Urea nitrogen [Mass/Vol] 21 mg/dL 01-15 [facility] WBC Auto (Bld) [#/Vol]Ordere d By: Patrizia Melendrez on 03-20-2023 WBC (Bld) [#/Vol] 7.3 10*3/uL 3.8-11.6 [facility] CREATININEon 10-01-2022 Creatinine [Mass/Vol] 0.73 mg/dL Normal 0.55-1.02 [facility] Comment on above: Performed By: #### C PRISCILLA ####[facility] [address] [address]Dr. Gonzalo Willis EGFR-AF DJIBOUTIAN >60 Normal >=60 [facility] Comment on above: Performed By: #### C PRISCILLA ####[facility] [address] [address]Dr. Gonzalo Willis EGFR-NON AF DJIBOUTIAN >60 Normal >=60 [facility] Comment on above: Performed By: #### C PRISCILLA ####[facility] [id number]. Gonzalo Willis CT NECK ST WO W [...] SHAWN GRAFF Date: 2022-10-01 09:51 Normal [facility] US THYROIDon 09-04-2022 US THYROID EXAMINATION: US [...] by: SHAWN GRAFF Date: 2022-09-04 16:52 Normal [facility] US CAROTID ART BILon 023 US CAROTID [...] by: NISA EDWARDS Date: 2022-08-22 17:29 Normal [facility] Office Visit (Cardiology)on 07-19-2022 Follow-up visit Diagnoses/Problems [...] no s (more content not included)... Normal [facility] Tobacco Screening.on 023 Adult depression screening assessment No [facility]-Jamilah jacques 250 DO Work Phone: Fall risk assessment a) No falls within the last year [facility] HeartMario Alberto morgany 250 DO Work Phone: Tobacco use status [facility]PHS b) No [facility]-Jamilah morgany 250 DO Work Phone: ECHOCARDIO M/2D COMPLETEon 1 07-29-2021 ECHOCARDIO M/2D COMPLETE Patient: ELIZABETH QUEZADA Exam Date: 05/28/2022 : 1960 Gender:F Ordering : DR NANO NGUYEN . Admission #: [id number] Family : Order #: [id number] CLICK HERE TO VIEW EXAM ECHOCARDIOGRAM REPORT [...] Kamara M.D. on 05/30/2022 at 11:06 Normal [facility] MG MAMM SCREEN 3D LOVE CADon 05-25-2022 MG MAMM SCREEN 3D LOVE CAD Patient: ELIZABETH QUEZADA Exam Date: 05/25/2022 : 1960 Gender:F Ordering : DR NANO NGUYEN . Admission #: [id number] Family : Order #: [id number] CLICK HERE TO VIEW EXAM RADIOLOGY REPORT [...] with lung cancer at age 58. LOCATION: [facility] BREAST COMPOSITION: Almost entirely fatty. FINDINGS: DIAGNOSTIC [...] MD on 05/25/2022 at 09:51 Normal [facility] NM STRESS/REST MULTIon 05-22 NM STRESS/REST MULTI Patient: EMILY QUEZADA ANGEL Sarita. Exam Date: 05/22/2022 : 1960 Gender:F Ordering : DR NANO NGUYEN . Admission #: [id number] Family : Order #: [id number] CLICK HERE TO VIEW EXAM RADIOLOGY REPORT [...] Graff M.D. on 05/22/2022 at 15:59 Normal [facility] CT LUNG CANCER SCREENINGon 1 07-11-2021 CT [...] NISA EDWARDS Date: 2022-05-11 15:25 Normal [facility] CBC AUTO DIFFon 05-10-2022 BASO # 0.0 103/ul Normal 0.0-0.1 [facility] Comment on above: Performed By: #### C BC ####[facility] [address] [place], [place] [address]Dr. Gonzalo Willis Basophils/100 WBC (Bld) 0.5 % Normal 0.2-2.0 [facility] Comment on above: Performed By: #### C BC ####[facility] [address] [place], [place] [address]Dr. Gonzalo Willis EO # 0.2 103/ul Normal 0.0-0.7 [facility] Comment on above: Performed By: #### C BC ####[facility] [address] [place], [place] [address]Dr. Gonzalo Willis Eosinophils/100 WBC (Bld) 1.8 % Normal 0.9-7.0 [facility] Comment on above: Performed By: #### C BC ####[facility] N[address] [place], [place] [address]Dr. Gonzalo Willis Erythrocyte distribution width (RBC) [Ratio] 12.4 % Normal 11.0-15.0 [facility] Comment on above: Performed By: #### C BC ####[facility] [address] [place], [place] [address]Dr. Gonzalo Willis Hematocrit (Bld) [Volume fraction] 53.7 % Critically high 36.0-48.0 [facility] Comment on above: Performed By: #### C BC ####[facility] J[address] [place], [place] [address]Dr. Gonzalo Willis Hemoglobin (Bld) [Mass/Vol] 18.4 g/dL Critically high 12.0-16.0 [facility] Comment on above: Performed By: #### C BC ####[facility] T[address]mt[address] [place], [place] [address]Dr. Gonzalo Willis IG # 0.04 10e3/ul Critically high 0.00-0.03 [facility] Comment on above: Performed By: #### C BC ####[facility] [address] [place] [id number]. Gonzalo Willis IG % 0.5 % Normal 0.0-0.5 [facility] Comment on above: Performed By: #### C BC ####[facility] [address] [place] [id number]. Gonzalo Willis LYMPH # 2.5 103/ul Normal 1.2-3.8 [facility] Comment on above: Performed By: #### C BC ####[facility] [address] [place], [place] [address]Dr. Gonzalo Willis Lymphocytes/100 WBC (Bld) 29.2 % Normal 20.5-60.0 [facility] Comment on above: Performed By: #### C BC ####[facility] [address] [place], [place] [address]Dr. Gonzalo Willis MANUAL DIFF REQ NO Normal [facility] Comment on above: Performed By: #### C BC ####[facility] [address] [place], [place] [id number]. Gonzalo Willis MCH (RBC) [Entitic mass] 31.2 pg Normal 26.7-34.0 [facility] Comment on above: Performed By: #### C BC ####[facility] [address] [place], [place] [id number]. Gonzalo Willis MCHC (RBC) [Mass/Vol] 34.3 g/dL Normal 29.9-35.2 [facility] Comment on above: Performed By: #### C BC ####[facility] [address] [place], [place] [id number]. Gonzalo Willis MCV (RBC) [Entitic vol] 91.0 fL Normal 81.0-99.0 [facility] Comment on above: Performed By: #### C BC ####[facility] Ges[address] [place], [place] [address]Dr. Gonzalo Lazaro MONO # 0.6 103/ul Normal 0.3-0.8 [facility] Comment on above: Performed By: #### C BC ####[facility] [address] [place] [id number]. Gonzalo Willis Monocytes/100 WBC (Bld) 7.2 % Normal 1.7-12.0 [facility] Comment on above: Performed By: #### C BC ####[facility] [address] [place] [id number]. Gonzalo Willis NEUT # 5.3 103/ul Normal 1.4-6.5 [facility] Comment on above: Performed By: #### C BC ####[facility] [address] [place] [id number]. Gonzalo Willis Neutrophils/100 WBC (Bld) 60.8 % Normal 43.0-75.0 [facility] Comment on above: Performed By: #### C BC ####[facility] [address] [place] [address]Dr. Gonzalo Willis Platelet mean volume (Bld) [Entitic vol] 9.5 fL Normal 9.5-13.5 [facility] Comment on above: Performed By: #### C BC ####[facility] [address] [place] [id number]. Gonzalo Willis PLT 265 103/ul Normal 150-450 [facility] Comment on above: Performed By: #### C BC ####[facility] [address] [place] [id number]. Gonzalo Willis RBC 5.90 106/ul Critically high 4.20-5.40 [facility] Comment on above: Performed By: #### C BC ####[facility] [address] [place], [place] [id number]. Gonzalo Willis WBC 8.7 103/ul Normal 4.0-11.0 [facility] Comment on above: Performed By: #### C BC ####[facility] [address] [place] [id number]. Gonzalo Willis FREE THYROXINE INDEX T7on FTI 2.74 Normal 1.30-4.50 [facility] Comment on above: Performed By: #### T 7, TSH, CMP, LIPID ####[facility] [address] [place] [id number]. Gonzalo Willis T3U 33.0 % Normal 30.0-39.0 [facility] Comment on above: Performed By: #### T 7, TSH, CMP, LIPID ####[facility] [address] [place] [id number]. Gonzalo Willis T4 [Mass/Vol] 8.30 ug/dL Normal 4.80-13.90 [facility] Comment on above: Performed By: #### T 7, TSH, CMP, LIPID ####[facility] [address] [address]Dr. Gonzalo Willis GLYCOHEMOGLOBIN A1Con 2021 ADA RECOMMENDATION SEE BELOW Normal [facility] Comment on above: Result Comment: ADA RECOMMENDED LIMIT 4.0 - 6.0 ADA THERAPEUTIC TARGET < 7.0 ACTION SUGGESTED > 7.0 Performed By: #### A 1C ####[facility] [address] [place], [place] [address]Dr. Gonzalo Willis Glucose [Mass/Vol] 192 mg/dL Normal [facility] Comment on above: Performed By: #### A 1C ####[facility] [address] [place], [place] [address]Dr. Gonzlao Willis HbA1c (Bld) [Mass fraction] 8.3 % Critically high 4.5-6.2 [facility] Comment on above: Performed By: #### A 1C ####[facility] [address] [place], [place] [address]Dr. Gonzalo Willis IRONon 05-10-2022 Iron [Mass/Vol] 193.0 ug/dL Critically high 50.0-170.0 [facility] Comment on above: Performed By: #### I MATTHEW MONTELONGO, VITB12 ####[facility] [address] [place], [place] [address]Dr. Gonzalo Willis LIPID PROFILEon 05-10-2022 CHOL-HDL RATIO NORM SEE BELOW Normal [facility] Comment on above: Result Comment: 3.3 - 4.4 LOW RISK 4.4 - 7.1 AVERAGE RISK 7.1 - 11.0 MODERATE RISK >11.0 HIGH RISK Performed By: #### T 7, TSH, CMP, LIPID #### [facility] [address] [place] [address] Dr. Gonzalo Willis Cholesterol [Mass/Vol] 262 mg/dL Critically high <=200 [facility] Comment on above: Performed By: #### T 7, TSH, CMP, LIPID #### [facility] [address] [address] [address] Gonzalo Willis Cholesterol in HDL [Mass/Vol] 57 mg/dL Normal 40-60 [facility] Comment on above: Performed By: #### T 7, TSH, CMP, LIPID #### [facility] [address] [place] [address] Dr. Gonzalo Willis Cholesterol in LDL [Mass/Vol] 177.4 mg/dL Normal [facility] Comment on above: Performed By: #### T 7, TSH, CMP, LIPID #### [facility] [address] [place] [address] Dr. Gonzalo Willis Cholesterol.total/Chol esterol in HDL [Mass ratio] 4.6 {ratio} Normal [facility] Comment on above: Performed By: #### T 7, TSH, CMP, LIPID #### [facility] [address] [place] [address] Dr. Gonzalo Willis HDL NORMAL > or = 60 mg/dl - LO W CARDIOVASCULAR RISK <40 mg/dl - HIGH CARDIOVASCULAR RISK Normal [facility] Comment on above: Performed By: #### T 7, TSH, CMP, LIPID #### [facility] [address] [place] [address] Dr. Gonzalo Willis LDL CALC NORMAL SEE BELOW Normal [facility] Comment on above: Result Comment: <100 mg/dl OPTIMAL 100 - 129 mg/dl NEAR OR ABOVE OPTIMAL 130 - 159 mg/dl BORDERLINE HIGH 160 - 189 mg/dl HIGH >190 mg/dl VERY HIGH Performed By: #### T 7, TSH, CMP, LIPID #### [facility] [address] [place] [address] Dr. Gonzalo Willis Triglyceride [Mass/Vol] 138 mg/dL Normal <=150 [facility] Comment on above: Performed By: #### T 7, TSH, CMP, LIPID #### [facility] [address] [address] [address] Gonzalo Willis VLDL CALC 27.6 mg/dL Normal [facility] Comment on above: Performed By: #### T 7, TSH, CMP, LIPID #### [facility] [address] [address] [address] Gonzalo Willis PROF 14(COMP METB)on 022 Albumin [Mass/Vol] 4.3 g/dL Normal 3.4-5.0 [facility] Comment on above: Performed By: #### T 7, TSH, CMP, LIPID #### [facility] [address] [address] [address] Gonzalo Willis Albumin/Globulin [Mass ratio] 1.0 {ratio} Normal [facility] Comment on above: Performed By: #### T 7, TSH, CMP, LIPID #### [facility] [address] [address] [address] Gonzalo Willis ALP [Catalytic activity/Vol] 86 U/L Normal 46-116 [facility] Comment on above: Performed By: #### T 7, TSH, CMP, LIPID #### [facility] [address] [place] [address] Dr. Gonzalo Willis ALT [Catalytic activity/Vol] 20 U/L Normal 14-59 [facility] Comment on above: Performed By: #### T 7, TSH, CMP, LIPID #### [facility] [address] [address] [address] Gonzalo Willis Anion gap [Moles/Vol] 11.2 mmol/L Normal [facility] Comment on above: Performed By: #### T 7, TSH, CMP, LIPID #### [facility] [address] [place] [address] Dr. Gonzalo Willis AST [Catalytic activity/Vol] 9 U/L Critically low 15-37 [facility] Comment on above: Performed By: #### T 7, TSH, CMP, LIPID #### [facility] [address] [address] [address] Gonzalo Willis Bilirubin [Mass/Vol] 0.6 mg/dL Normal 0.2-1.0 [facility] Comment on above: Performed By: #### T 7, TSH, CMP, LIPID #### [facility] [address] [address] [address] Gonzalo Willis Calcium [Mass/Vol] 10.1 mg/dL Normal 8.5-10.1 [facility] Comment on above: Performed By: #### T 7, TSH, CMP, LIPID #### [facility] [address] [address] [address] Gonzalo Willis Chloride [Moles/Vol] 98 mmol/L Normal 98-107 [facility] Comment on above: Performed By: #### T 7, TSH, CMP, LIPID #### [facility] [address] [place] [address] Dr. Gonzalo Willis CO2 [Moles/Vol] 28.4 mmol/L Normal 21.0-32.0 [facility] Comment on above: Performed By: #### T 7, TSH, CMP, LIPID #### [facility] [address] [address] [address] Gonzalo Willis Creatinine [Mass/Vol] 0.72 mg/dL Normal 0.55-1.02 [facility] Comment on above: Performed By: #### T 7, TSH, CMP, LIPID #### [facility] [address] [place] [address] Dr. Gonzalo Willis EGFR-AF DJIBOUTIAN >60 Normal >=60 [facility] Comment on above: Performed By: #### T 7, TSH, CMP, LIPID #### [facility] [address] [place] [address] Dr. Gonzalo Willis EGFR-NON AF DJIBOUTIAN >60 Normal >=60 [facility] Comment on above: Performed By: #### T 7, TSH, CMP, LIPID #### [facility] [address] [address] [address] Gonzalo Willis Globulin (S) [Mass/Vol] 4.1 g/dL Normal [facility] Comment on above: Performed By: #### T 7, TSH, CMP, LIPID #### [facility] [address] [address] [address] Gonzalo Willis Glucose [Mass/Vol] 164 mg/dL Critically high 74-106 [facility] Comment on above: Performed By: #### T 7, TSH, CMP, LIPID #### [facility] [address] [place] [address] Dr. Gonzalo Willis Potassium [Moles/Vol] 4.6 mmol/L Normal 3.5-5.1 [facility] Comment on above: Performed By: #### T 7, TSH, CMP, LIPID #### [facility] [address] [place] [address] Dr. Gonzalo Willis Protein [Mass/Vol] 8.4 g/dL Critically high 6.4-8.2 [facility] Comment on above: Performed By: #### T 7, TSH, CMP, LIPID #### [facility] [address] [place] [address] Dr. Gonzalo Willis Sodium [Moles/Vol] 133 mmol/L Critically low 136-145 [facility] Comment on above: Performed By: #### T 7, TSH, CMP, LIPID #### [facility] [address] [place] [address] Dr. Gonzalo Willis Urea nitrogen [Mass/Vol] 20.0 mg/dL Critically high 7.0-18.0 [facility] Comment on above: Performed By: #### T 7, TSH, CMP, LIPID #### [facility] [address] [place] [address] Dr. Gonzalo Willis Urea nitrogen/Creatinine [Mass ratio] 27.8 mg/mg Normal [facility] Comment on above: Performed By: #### T 7, TSH, CMP, LIPID #### [facility] [address] [place] [address] Dr. Gonzalo Willis TSHon 05-10-2022 TSH 0.872 uIU/mL Normal 0.358-3.74 0 [facility] Comment on above: Performed By: #### T 7, TSH, CMP, LIPID ####[facility] [address] [id number]. Gonzalo Willis VITAMIN B12on 05-10-2022 Cobalamin (Vitamin B12) [Mass/Vol] 526.0 pg/mL Normal 193.0-986. 0 [facility] Comment on above: Performed By: #### I REGINALD, VITAD, VITB12 ####[facility] [address] [id number]. Gonzalo Willis VITAMIN D 25 OHon 05-10-2022 VIT D 25-OH 67.4 ng/mL Normal [facility] Comment on above: Performed By: #### I REGINALD, VITAD, VITB12 ####[facility] [id number] [place] [id number]. [facility] Willis VIT D RANGES SEE BELOW Normal [facility] Comment on above: Result Comment: <20 ng/mL Vit D deficient 20 - <30 ng/mL Vit D insufficient 30 - 100 ng/mL Vit D sufficient >100 ng/mL Potential Toxicity Performed By: #### I REGINALD, VITAD, VITB12 ####[facility] [id number] [place] [id number]. Gonzalo Willis Covid-19 PCR ([facility])on SARS-CoV-2 (COVID-19) RNA WALKER+probe Ql (Unsp spec) Not detected Normal NOT DETECTED [facility] Comment on above: Result Comment: When diagnostic [...] for this test is supported by the It Manager of Health and Human Service's declaration that [...] used). Performed By: #### C [facility] #### [facility] [address] [place] [address] Dr. Gonzalo Willis Vital Signs Date Time Vital Sign Value Performing Clinician Facility 12-23-2024 09:04-0400 Body height 165.1 cm Nano Nguyen MD Work Phone: [facility] 12-23-2024 09:04-0400 Body mass index (BMI) [Ratio] 27.1 kg/m2 Nano Nguyen MD Work Phone: [facility] 12-23-2024 09:04-0400 Body temperature 97.7 [degF] Nano Nguyen MD Work Phone: [facility] 12-23-2024 09:04-0400 Body weight 74 kg Nano Nguyen MD Work Phone: [facility] 12-23-2024 09:04-0400 Diastolic blood pressure 70 mm[Hg] Nano Nguyen MD Work Phone: [facility] 12-23-2024 09:04-0400 Heart rate 80 /min Nano Nguyen MD Work Phone: [facility] 12-23-2024 09:04-0400 Respiratory rate 18 /min Nano Nguyen MD Work Phone: [facility] 12-23-2024 09:04-0400 SaO2% (BldA) [Mass fraction] 97 % Nano Nguyen MD Work Phone: [facility] 12-23-2024 09:04-0400 Systolic blood pressure 118 mm[Hg] Nano Nugyen MD Work Phone: [facility] 12-03-2024 11:41-0400 Body temperature 98 [degF] Nano Nguyen MD Work Phone: [facility] 12-03-2024 11:41-0400 Diastolic blood pressure 50 mm[Hg] Nano Nguyen MD Work Phone: [facility] 12-03-2024 11:41-0400 Heart rate 75 /min Nano Nguyen MD Work Phone: [facility] 12-03-2024 11:41-0400 SaO2% (BldA) [Mass fraction] 99 % Nano Nguyen MD Work Phone: [facility] 12-03-2024 11:41-0400 Systolic blood pressure 100 mm[Hg] Nano Nguyen MD Work Phone: [facility] 11-13-2024 10:55-0400 Diastolic blood pressure 57 mm[Hg] Nano Nguyen MD Work Phone: [facility] 11-13-2024 10:55-0400 Heart rate 79 /min Nano Nguyen MD Work Phone: [facility] 11-13-2024 10:55-0400 Respiratory rate 16 /min Nano Nguyen MD Work Phone: [facility] 11-13-2024 10:55-0400 SaO2% (BldA) [Mass fraction] 97 % Nano Nguyen MD Work Phone: [facility] 11-13-2024 10:55-0400 Systolic blood pressure 97 mm[Hg] Nano Nguyen MD Work Phone: [facility] 11-13-2024 10:25-0400 Body temperature 97.2 [degF] Nano Nguyen MD Work Phone: [facility] 11-13-2024 10:25-0400 Inhaled oxygen flow rate 6 L/min Nano Nguyen MD Work Phone: [facility] 11-13-2024 07:43-0400 Body height 165.1 cm Nano Nguyen MD Work Phone: [facility] 11-13-2024 07:43-0400 Body weight 74.84 kg Nano Nguyen MD Work Phone: [facility] 11-12-2024 09:18-0400 Body temperature 97.1 [degF] Nano Nguyen MD Work Phone: [facility] 11-12-2024 09:18-0400 Diastolic blood pressure 64 mm[Hg] Nano Nguyen MD Work Phone: [facility] 11-12-2024 09:18-0400 Heart rate 106 /min Nano Nguyen MD Work Phone: [facility] 11-12-2024 09:18-0400 SaO2% (BldA) [Mass fraction] 99 % Nano Nguyen MD Work Phone: [facility] 11-12-2024 09:18-0400 Systolic blood pressure 112 mm[Hg] Nano Nguyen MD Work Phone: [facility] 11-05-2024 09:32-0400 Body temperature 97.5 [degF] Nano Nguyen MD Work Phone: [facility] 11-05-2024 09:32-0400 Diastolic blood pressure 60 mm[Hg] Nano Nguyen MD Work Phone: [facility] 11-05-2024 09:32-0400 Heart rate 93 /min Nano Nguyen MD Work Phone: [facility] 11-05-2024 09:32-0400 SaO2% (BldA) [Mass fraction] 99 % Nano Nguyen MD Work Phone: [facility] 11-05-2024 09:32-0400 Systolic blood pressure 110 mm[Hg] Nano Nguyen MD Work Phone: [facility] 10-20-2024 12:37-0400 Body height 165.1 cm Nano Nguyen MD Work Phone: [facility] 10-20-2024 12:00-0400 Body temperature 98.9 [degF] Nano Nguyen MD Work Phone: [facility] 10-20-2024 12:00-0400 Diastolic blood pressure 85 mm[Hg] Nano Nguyen MD Work Phone: [facility] 10-20-2024 12:00-0400 Heart rate 135 /min Nano Nguyen MD Work Phone: [facility] 10-20-2024 12:00-0400 Respiratory rate 16 /min Nano Nguyen MD Work Phone: [facility] 10-20-2024 12:00-0400 SaO2% (BldA) [Mass fraction] 97 % Nano Nguyen MD Work Phone: [facility] 10-20-2024 12:00-0400 Systolic blood pressure 135 mm[Hg] Nano Nguyen MD Work Phone: [facility] 10-20-2024 06:00-0400 Body weight 79.3 kg Nano Nguyen MD Work Phone: [facility] 10-20-2024 03:42-0400 Inhaled oxygen flow rate 1 L/min Nano Nguyen MD Work Phone: [facility] 09-24-2024 14:07-0400 Body temperature 98.2 [degF] [facility] 09-24-2024 14:07-0400 Diastolic blood pressure 82 mm[Hg] [facility] 09-24-2024 14:07-0400 Heart rate 72 /min [facility] 09-24-2024 14:07-0400 Respiratory rate 16 /min [facility] 09-24-2024 14:07-0400 SaO2% (BldA) [Mass fraction] 98 % [facility] 09-24-2024 14:07-0400 Systolic blood pressure 124 mm[Hg] [facility] 09-17-2024 11:15-0400 Body height 165.1 cm Dania Cruz APRN.CNP Work Phone: [facility] 09-17-2024 11:15-0400 Body mass index (BMI) [Ratio] 26.92 kg/m2 Dania Cruz APRN.CNP Work Phone: [facility] 09-17-2024 11:15-0400 Body temperature 98.1 [degF] Andegoni Sandalakis NEWS PRODUCTION ASSISTANT.DEHYDRATION UNIT OPERATOR Work Phone: [facility] 09-17-2024 11:15-0400 Body weight 73.39 kg Andegoni Sandalakis NEWS PRODUCTION ASSISTANT.DEHYDRATION UNIT OPERATOR Work Phone: [facility] 09-17-2024 11:15-0400 Diastolic blood pressure 70 mm[Hg] Andegoni Sandalakis NEWS PRODUCTION ASSISTANT.DEHYDRATION UNIT OPERATOR Work Phone: [facility] 09-17-2024 11:15-0400 Heart rate 86 /min Andegoni Sandalakis NEWS PRODUCTION ASSISTANT.DEHYDRATION UNIT OPERATOR Work Phone: [facility] 09-17-2024 11:15-0400 SaO2% (BldA) [Mass fraction] 98 % Andegoni Sandalakis NEWS PRODUCTION ASSISTANT.DEHYDRATION UNIT OPERATOR Work Phone: [facility] 09-17-2024 11:15-0400 Systolic blood pressure 136 mm[Hg] Andegoni Sandalakis NEWS PRODUCTION ASSISTANT.DEHYDRATION UNIT OPERATOR Work Phone: [facility] 04-28-2024 10:51-0500 Diastolic blood pressure 75 mm[Hg] Papa Santiago MD Work Phone: [facility] 04-28-2024 10:51-0500 Heart rate 84 /min Papa Santiago MD Work Phone: [facility] 04-28-2024 10:51-0500 Systolic blood pressure 135 mm[Hg] Papa Santiago MD Work Phone: [facility] 01-28-2024 12:01-0400 Diastolic blood pressure 70 mm[Hg] Papa Santiago MD Work Phone: [facility] 01-28-2024 12:01-0400 Heart rate 83 /min Ppaa Santiago MD Work Phone: [facility] 01-28-2024 12:01-0400 Systolic blood pressure 147 mm[Hg] Papa Santiago MD Work Phone: [facility] 01-16-2024 11:51-0400 Body height 165.1 cm Shanice Larsen MD Work Phone: [facility] 01-16-2024 11:51-0400 Body mass index (BMI) [Ratio] 28.62 kg/m2 Shanice Larsen MD Work Phone: [facility] 01-16-2024 11:51-0400 Body weight 78.02 kg Shanice Larsen MD Work Phone: [facility] 01-16-2024 11:51-0400 Diastolic blood pressure 69 mm[Hg] Shanice Larsen MD Work Phone: [facility] 01-16-2024 11:51-0400 Heart rate 88 /min Shanice Larsen MD Work Phone: [facility] 01-16-2024 11:51-0400 SaO2% (BldA) [Mass fraction] 98 % Shanice Larsen MD Work Phone: [facility] 01-16-2024 11:51-0400 Systolic blood pressure 110 mm[Hg] Shanice Larsen MD Work Phone: [facility] 10-10-2023 12:40-0400 Body height 160 cm Shanice Larsen MD Work Phone: [facility] 10-10-2023 12:40-0400 Body weight 77.11 kg Shanice Larsen MD Work Phone: [facility] 10-10-2023 12:40-0400 Diastolic blood pressure 73 mm[Hg] Shanice Laresn MD Work Phone: [facility] 10-10-2023 12:40-0400 Heart rate 90 /min Shanice Larsen MD Work Phone: [facility] 10-10-2023 12:40-0400 Respiratory rate 16 /min Shanice Larsen MD Work Phone: [facility] 10-10-2023 12:40-0400 SaO2% (BldA) [Mass fraction] 97 % Shanice Larsen MD Work Phone: [facility] 10-10-2023 12:40-0400 Systolic blood pressure 127 mm[Hg] Shanice Larsen MD Work Phone: [facility] 08-07-2023 10:40-0500 Body height 162 cm Andegoni Sandalakis NEWS PRODUCTION ASSISTANT.DEHYDRATION UNIT OPERATOR Work Phone: [facility] 08-07-2023 10:40-0500 Body temperature 98.01 [degF] Andegoni Sandalakis NEWS PRODUCTION ASSISTANT.DEHYDRATION UNIT OPERATOR Work Phone: [facility] 08-07-2023 10:40-0500 Body weight 82.64 kg Andegoni Sandalakis NEWS PRODUCTION ASSISTANT.DEHYDRATION UNIT OPERATOR Work Phone: [facility] 08-07-2023 10:40-0500 Diastolic blood pressure 70 mm[Hg] Andegoni Sandalakis NEWS PRODUCTION ASSISTANT.DEHYDRATION UNIT OPERATOR Work Phone: [facility] 08-07-2023 10:40-0500 Heart rate 82 /min Andegoni Sandalakis NEWS PRODUCTION ASSISTANT.DEHYDRATION UNIT OPERATOR Work Phone: [facility] 08-07-2023 10:40-0500 SaO2% (BldA) [Mass fraction] 97 % Andegoni Sandalakis NEWS PRODUCTION ASSISTANT.DEHYDRATION UNIT OPERATOR Work Phone: [facility] 08-07-2023 10:40-0500 Systolic blood pressure 128 mm[Hg] Andegoni Sandalakis NEWS PRODUCTION ASSISTANT.DEHYDRATION UNIT OPERATOR Work Phone: [facility] 05-28-2023 13:50-0500 Body height 165.1 cm Shanice Larsen MD Work Phone: [facility] 05-28-2023 13:50-0500 Body weight 78.93 kg Shanice Larsen MD Work Phone: [facility] 05-28-2023 13:50-0500 Diastolic blood pressure 59 mm[Hg] Shanice Larsen MD Work Phone: [facility] 05-28-2023 13:50-0500 Heart rate 82 /min Shanice Larsen MD Work Phone: [facility] 05-28-2023 13:50-0500 Respiratory rate 16 /min Shanice Larsen MD Work Phone: [facility] 05-28-2023 13:50-0500 SaO2% (BldA) [Mass fraction] 97 % Shanice Larsen MD Work Phone: [facility] 05-28-2023 13:50-0500 Systolic blood pressure 109 mm[Hg] Shanice Larsen MD Work Phone: [facility] 04-03-2023 09:16-0400 Diastolic blood pressure 116 mm[Hg] Shanice Larsen MD Work Phone: [facility] 04-03-2023 09:16-0400 Heart rate 101 /min Shanice Larsen MD Work Phone: [facility] 04-03-2023 09:16-0400 Systolic blood pressure 200 mm[Hg] Shanice Larsen MD Work Phone: [facility] 03-26-2023 17:15-0400 Diastolic blood pressure 64 mm[Hg] MD Nano Nguyen Work Phone: [facility] 03-26-2023 17:15-0400 Heart rate 69 /min MD Nano Nguyen Work Phone: [facility] 03-26-2023 17:15-0400 Respiratory rate 20 /min MD Nano Nguyen Work Phone: [facility] 03-26-2023 17:15-0400 SaO2% (BldA) [Mass fraction] 99 % MD Nano Nguyen Work Phone: [facility] 03-26-2023 17:15-0400 Systolic blood pressure 143 mm[Hg] MD Nano Nguyen Work Phone: [facility] 03-26-2023 13:02-0400 Body height 165.1 cm MD Nano Nguyen Work Phone: [facility] 03-26-2023 13:02-0400 Body temperature 97.7 [degF] MD Nano Nguyen Work Phone: [facility] 03-26-2023 13:02-0400 Body weight 84.5 kg MD Nano Nguyen Work Phone: [facility] 03-20-2023 13:00-0400 Body height 165.1 cm Patrizia Melendrez Other [facility] [employer] Other 03-20-2023 13:00-0400 Body mass index (BMI) [Ratio] 31.31 kg/m2 [facility] [employer] Other 03-20-2023 13:00-0400 Body weight 85.37 kg Patrizia Melendrez Other [employer] Other 03-20-2023 13:00-0400 Diastolic blood pressure 82 mm[Hg] Patrizia Melendrez Other [employer] Other 03-20-2023 13:00-0400 SaO2% (BldA) [Mass fraction] 94 % Patrizia Arevalooroge Other [employer] Other 03-20-2023 13:00-0400 Systolic blood pressure 124 mm[Hg] Patrizia Arevalooroge Other [employer] Other 07-19-2022 13:16-0500 Body height 165.1 cm Nano Nguyen Work Phone: [facility] 250 DO Work Phone: 07-19-2022 13:16-0500 Body mass index (BMI) [Ratio] 31.95 kg/m2 Nano M Hoy Work Phone: [facility] 250 DO Work Phone: 07-19-2022 13:16-0500 Body surface area Derived from formula 1.94 m2 Nano M Hoy Work Phone: [facility] 250 DO Work Phone: 07-19-2022 13:16-0500 Body weight 87.09 kg Nano M Hoy Work Phone: [facility] 250 DO Work Phone: 07-19-2022 13:16-0500 Diastolic blood pressure 64 mm[Hg] Nano M Hoy Work Phone: [facility] 250 DO Work Phone: 07-19-2022 13:16-0500 Diastolic blood pressure 70 mm[Hg] Nano M Hoy Work Phone: [facility] 250 DO Work Phone: 07-19-2022 13:16-0500 Heart rate 85 /min Nano M Hoy Work Phone: [facility] 250 DO Work Phone: 07-19-2022 13:16-0500 Systolic blood pressure 110 mm[Hg] Nano M Hoy Work Phone: [facility] 250 DO Work Phone: 07-19-2022 13:16-0500 Systolic blood pressure 100 mm[Hg] Nano M Hoy Work Phone: [facility] 250 DO Work Phone: Encounters Encounter Date Encounter Type Care Provider Facility Start: 12-31-2024 End: 12-31-2024 David Hutson MD Work Phone: [facility] Start: 12-31-2024 End: 12-31-2024 Bamboo flowsheet Milagros Hutson MD Work Phone: [facility] Start: 12-31-2024 End: 12-31-2024 ambulatory MILAGROS HUTSON Not Available Start: 12-23-2024 End: 12-23-2024 ambulatory Nano Nguyen MD Work Phone: [facility] Work Phone: Start: 12-23-2024 End: 12-23-2024 Patient encounter procedure Gonzalez Barclay MD -[facility] Work Phone: Start: 12-03-2024 End: 12-03-2024 Patient encounter procedure Gonzalez Barclay MD -[facility] Work Phone: Start: 11-25-2024 End: 11-25-2024 Telephone encounter Hilary Ott RN Pulmonary Medicine Comment on above: OV & CT PULM Start: 11-13-2024 Non-patient / Non-visit Ayden Nguyen MD Work Phone: [facility] Vascular Surg Work Phone: Start: 11-13-2024 End: 11-13-2024 Admission to same day surgery center Nano Nguyen MD Work Phone: [facility] [place] Start: 11-13-2024 End: 11-13-2024 ambulatory Nano Nguyen MD Work Phone: [facility] Work Phone: Start: 11-12-2024 End: 11-12-2024 ambulatory Nano Nguyen MD Work Phone: [facility] Work Phone: Start: 11-12-2024 End: 11-12-2024 Patient encounter procedure Nano Nguyen MD Work Phone: [facility] Physician [facility] Vascular Surg Work Phone: Start: 11-05-2024 End: 11-05-2024 Departed Referred Nano Nguyen MD Work Phone: [facility] [place] Work Phone: Start: 11-05-2024 End: 11-05-2024 ambulatory Nano Nguyen MD Work Phone: [facility] Work Phone: Start: 11-05-2024 End: 11-05-2024 Patient encounter procedure Nano Nguyen MD Work Phone: [facility] Physician [facility] Vascular Surg Work Phone: Start: 10-19-2024 Non-patient / Non-visit Ayden Nguyen MD Work Phone: [facility] Vascular Surg Work Phone: Start: 10-19-2024 End: 10-20-2024 Evaluation and management of inpatient Nano Nguyen MD Work Phone: [facility] Work Phone: Start: 10-06-2024 End: 10-06-2024 Patient encounter procedure Nano Nguyen MD Work Phone: [facility] Work Phone: Start: 10-06-2024 End: 10-06-2024 ambulatory Nano Nguyen MD Work Phone: [facility] Work Phone: Start: 10-06-2024 Encounter for preprocedural laboratory examination Gonzalez Barclay [facility] Start: 09-24-2024 End: 09-24-2024 ambulatory [facility] Work Phone: Start: 09-24-2024 End: 09-24-2024 Patient encounter procedure [facility] Vascular Surgery [place] Work Phone: Start: 09-17-2024 End: 09-17-2024 Subsequent hospital visit by physician Ct 2 Main Qb (I-Stat) Radiology Comment on above: Adverse effect of tr eatment, initial encounter [T88.9XXA] Start: 09-17-2024 End: 09-17-2024 ambulatory DANIA CRUZ Facility:[facility] Start: 09-17-2024 End: 09-17-2024 Patient encounter procedure Katharinadillon Lopezchiquita NEWS PRODUCTION ASSISTANT.DEHYDRATION UNIT OPERATOR Work Phone: Cardiothoracic Comment on above: Chest wall pain foll owing surgery (Primary Dx); S/P CABG (coronary artery bypass graft) Start: 07-29-2024 End: 07-29-2024 Telephone encounter Willem Suarez MD Work Phone: Cardiology Comment on above: Post Dc Program Call - Needs Attn Start: 07-21-2024 End: 07-21-2024 Telephone encounter Papa Santiago MD Work Phone: Vascular Surg Dept Comment on above: Patient Update Start: 04-28-2024 End: 04-28-2024 Office outpatient visit [...] malunion (Primary Dx); 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) Start: 04-07-2024 End: 04-07-2024 Telemedicine consultation with patient Shanice Larsen MD Work Phone: Cardiology Start: 02-26-2024 End: 02-26-2024 ambulatory Christel Fitch Pulmonary Medicine Start: 02-25-2024 End: 02-25-2024 ambulatory Hilary Ott RN Pulmonary Medicine Comment on above: CT RESULTS Start: 02-25-2024 End: 02-25-2024 E-mail encounter from caregiver Hilary Ott RN Pulmonary Medicine Start: 02-25-2024 End: 02-25-2024 Telephone encounter Hilary Ott RN Pulmonary Medicine Comment on above: Results Start: 02-18-2024 End: 02-18-2024 ambulatory [facility] Facility:[facility] Start: 02-18-2024 End: 02-18-2024 Subsequent hospital visit by physician Ct 2 Main Qb (I-Stat) Radiology Comment on above: Coronary artery dise ase of [place] artery of [place] heart with stable angina pectoris (HCC) [I25.118] Start: 02-04-2024 ambulatory Haydee Lindagomery [facility] Start: 02-04-2024 Patient encounter procedure Haydee Fried [facility] Start: 01-28-2024 End: 01-28-2024 Office outpatient visit 25 minutes Papa Santiago MD Work Phone: Vascular Surg Dept Comment on above: 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) (Primary Dx) Start: 01-28-2024 End: 01-28-2024 ambulatory PAPA SANTIAGO Facility:[facility] Start: 01-16-2024 End: 01-16-2024 Patient encounter procedure Shancie Larsen MD Work Phone: Cardiology Comment on above: Coronary artery dise ase of [place] artery of [place] heart with stable angina pectoris (HCC) (Primary Dx); PAD (peripheral artery disease) (HCC); Primary hypertension; Hyperlipidemia, unspecified hyperlipidemia type Start: 01-16-2024 End: 01-16-2024 ambulatory [facility] Facility:[facility] Start: 01-06-2024 End: 01-06-2024 ambulatory ALON MONIQUE Not Available Start: 01-03-2024 Orders Only Papa Santiago MD Work Phone: Vascular Surg Dept Comment on above: 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, bilateral legs (HCC) (Primary Dx) Start: 01-01-2024 Telephone encounter Nano Nguyen MD Work Phone: [address] [place] [address] Comment on above: Appointment Start: 10-30-2023 ambulatory Anna Perea RN [facility] Start: 10-30-2023 Patient encounter procedure Anna Perea RN [facility] Start: 10-25-2023 Telephone encounter Shanice Hallman MD Work Phone: Cardiology Start: 10-24-2023 ambulatory Christel Fitch Pulmonar y Medicine Start: 10-21-2023 End: 10-21-2023 ambulatory Randolph Reyes MD Work Phone: Pulmonary Medicine Comment on above: Lung nodule (Primary Dx) Start: 10-21-2023 End: 10-21-2023 Telemedicine consultation with patient Randolph Reyes MD Work Phone: Pulmonary Medicine Start: 10-18-2023 Telephone encounter Shanta comer RN Work Phone: [facility] Comment on above: Insurance Authorizat ion ([employer] 140MG/ML auto-injectors/) Start: 10-17-2023 Telephone encounter Shanice Hallman MD Work Phone: Cardiology Comment on above: Received Outside Med ical Records (SALINE ECHO REPORT) Received Outside Med ical Records (CD IMAGES 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) (Primary Dx); SOB (shortness of breath); PAD (peripheral artery disease) (HCC); TIA (transient ischemic attack) Start: 10-10-2023 End: 10-10-2023 Subsequent hospital visit by physician Ct 2 Main Qb (I-Stat) Radiology Comment on above: Lung nodule [R91.1] Start: 09-27-2023 ambulatory NANO NGUYEN [facility] Start: 09-26-2023 End: 09-28-2023 Emergency department patient visit NANO NGUYEN [facility] Start: 09-23-2023 Telephone encounter Papa Perez i, MD Work Phone: Vascular Surg Dept Comment on above: dental clearance Start: 09-12-2023 E-mail encounter jose titus caregiver Daljit Pina NEWS PRODUCTION ASSISTANT.DEHYDRATION UNIT OPERATOR Work Phone: [facility] Start: 09-12-2023 Follow-up encounter Daljit Reit er NEWS PRODUCTION ASSISTANT.DEHYDRATION UNIT OPERATOR Work Phone: Radiology Comment on above: Actionable Findings Follow-up Start: 09-03-2023 ambulatory Anna Perea RN [facility] Comment on above: Coronary artery dise ase involving walker river coronary artery of walk[place] river heart without angina pectoris (Primary Dx) Start: 08-23-2023 Telephone encounter Nano Nguyen MD Work Phone: NOC Comment on above: Appointment Start: 08-13-2023 E-mail encounter jose titus caregiver Daljit Pina NEWS PRODUCTION ASSISTANT.DEHYDRATION UNIT OPERATOR Work Phone: [facility] Start: 08-13-2023 Follow-up encounter Daljit Reit er NEWS PRODUCTION ASSISTANT.DEHYDRATION UNIT OPERATOR Work Phone: Radiology Comment on above: Actionable Findings Follow-up Start: 08-08-2023 Telephone encounter Moriah Muniz AMBULATORY NURSING A16 Comment on above: Follow Up Phone Call (RC follow up call all clear. /) Start: 08-07-2023 End: 08-07-2023 Patient encounter procedure Dania Cruz NEWS PRODUCTION ASSISTANT.DEHYDRATION UNIT OPERATOR Work Phone: Cardiothoracic Comment on above: S/P CABG (coronary a rtery bypass graft) (Primary Dx); PVD (peripheral vascular disease) (HCC) Start: 08-07-2023 End: 08-07-2023 Subsequent hospital visit by physician Xr Chest Main J1 Work Phone: Radiology Comment on above: Surgery follow-up [Z 09] Start: 08-06-2023 Telephone encounter Kevin Muniz NOC Comment on above: Follow Up Phone Call (RC f/u all clear/) Start: 08-01-2023 Follow-up encounter Willem marrufo MD Work Phone: Cardiothoracic Comment on above: Surgery follow-up (P rimary Dx) Start: 07-22-2023 Patient encounter status Alma Rosa Suarez MD Work Phone: [facility] Start: 05-30-2023 Telephone encounter Willem marrufo MD Work Phone: Cardiothoracic Comment on above: Insurance Authorizat ion Referral Information ; New Patient Evaluation Start: 05-28-2023 End: 05-28-2023 Patient encounter procedure Shanice Larsen MD Work Phone: Cardiology Comment on above: SOB (shortness of br eath) (Primary Dx); Coronary artery disease involving walker river coronary artery of walk[place] river heart without angina pectoris; PAD (peripheral artery disease) (HCC) Start: 05-13-2023 End: 05-13-2023 ambulatory Shanice Larsen MD Work Phone: Cardiology Comment on above: Coronary artery dise ase involving walk[place] coronary artery of walk[place] heart without angina pectoris (Primary Dx); Preop cardiovascular exam; Morbid obesity (HCC) Start: 05-13-2023 End: 05-13-2023 Patient encounter status Shanice Larsen MD Work Phone: [facility] Work Phone: Start: 05-13-2023 End: 05-13-2023 Telemedicine consultation with patient Shanice Larsen MD Work Phone: [facility] Start: 04-26-2023 Orders Only Shanice Hinton i, MD Work Phone: Cardiology Comment on above: Coronary artery dise ase involving walker [place] coronary artery without angina pectoris, unspecified whether walker river or transplanted heart (Primary Dx) Start: 04-08-2023 Orders Only Pamela Laws APRN.CNP Work Phone: Cardiology Comment on above: Abnormal stress test (Primary Dx) Start: 04-03-2023 End: 04-03-2023 Patient encounter procedure Shanice Larsen MD Work Phone: Cardiology Comment on above: Abnormal stress test (Primary Dx) Start: 03-26-2023 Telephone encounter Patrizia Cobb Cardiology Start: 03-26-2023 End: 03-26-2023 Admission to same day surgery center MD Nano Nguyen Work Phone: [facility]-Licensed Psychiatric Technician Work Phone: Start: 03-26-2023 End: 03-26-2023 ambulatory MD Nano Nguyen Work Phone: [facility] Work Phone: Start: 03-25-2023 End: 03-25-2023 ambulatory [facility] Other Start: 03-25-2023 Telephone encounter Patrizia Cobb Cardiology Start: 03-20-2023 End: 03-20-2023 Patient encounter procedure MD Nano Nguyen Work Phone: [facility]-Pre-Surgical Testing Work Phone: Start: 03-20-2023 End: 03-20-2023 ambulatory MD Nano Nguyen Work Phone: [facility] Work Phone: Start: 03-20-2023 Office outpatient ne w 45 minutes Patrizia Melendrez [facility] Start: 03-13-2023 Message Nano Nguyen Work Phone: [facility]-Jacqui 250 DO Work Phone: Start: 11-28-2022 Message Nano Nguyen Work Phone: [facility]Belva 600 DO Work Phone: Start: 10-01-2022 End: 10-02-[address] NANO NGUYEN . Facility:[facility] Start: 09-04-2022 End: 09-05-[address] NANO NGUYEN . Facility:[facility] Start: 08-22-2022 End: 08-23-[address] STEPAN SAM Facility:[facility] Start: 07-19-2022 Office consultation new/estab patient 60 min [facility] Work Phone: Start: 07-19-2022 ambulatory Nano Nguyen Fac ility: Start: 07-02-2022 End: 07-03-[address] NANO NGUYEN . Facility:[facility] Start: 05-30-2022 End: 05-31-[address] NANO NGUYEN . Facility:[facility] Start: 05-29-2022 Encounter for genera l adult medical examination without abnormal findings ANNA JOSEPH [facility] Start: 05-28-2022 End: 05-29-[address] NANO NGUYEN . Facility:[facility] Start: 05-25-2022 End: 05-26-[address] NANO NGUYEN . 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) Milagros Hutson MD Work Phone: Comment on above: Mild nonproliferative diabetic retinopat hy of both eyes without macular edema associated with type 2 diabetes mellitus (HCC) (Primary Dx); PCO (posterior capsular opacification), bilateral; Pseudophakia Start: 11-13-2024 Aerobic microbial culture Nano Nguyen MD Work Phone: Start: 11-13-2024 Anaerobic microbial culture Nano Nguyen MD Work Phone: Start: 11-13-2024 Gram stain microscopy Nano Nguyen MD Work Phone: Start: 11-13-2024 Debridement Nano Nguyen MD Work Phone: Start: 11-05-2024 Aerobic microbial culture Nano Nguyen MD Work Phone: Start: 08-07-2023 Radiologic exam chest 2 views Willem Suarez MD Work Phone: Start: 05-28-2023 Lipid 1996 panel - Serum or Plasma Shanice Larsen MD Work Phone: Start: 03-26-2023 CL LHC & COR Angio (Right) MD Nano Nguyen Work Phone: Colonoscopy Nano Nguyen Work Phone: Decompression of med jayjay nerve Nano Nguyen Work Phone: History of coronary artery bypass grafting S/P CABG (coronary artery bypass graft) Andegoni Sandalakis NEWS PRODUCTION ASSISTANT.DEHYDRATION UNIT OPERATOR Work Phone: History of coronary artery bypass grafting S/P CABG (coronary artery bypass graft) Andegoni Sandalakis NEWS PRODUCTION ASSISTANT.DEHYDRATION UNIT OPERATOR Work Phone: Ligation of fallopia n tube Nano Nguyen Work Phone: Release of trigger finger Do david Nguyen Work Phone: Tonsillectomy and adenoidectomy Nano Nguyen Work Phone: Plan of Treatment Date Care Activity Detail Author Start: 05-28-2028 Lipid 1996 panel - S radha or Plasma Lipid Screening [facility] Start: 05-28-2026 Diabetes Screening Diabetes Screenin g [facility] Start: 04-03-2026 Diabetes Screening Diabetes Screenin g [facility] Start: 09-17-2025 Screening for malign ant neoplasm of lung Lung Cancer Screening [facility] Start: 02-22-2025 Influenza vaccination C [facility] Start: 02-17-2025 Screening for malign ant neoplasm of lung Lung Cancer Screening [facility] Start: 01-15-2025 BP Controlled (<130/80) BP Controlle d (<130/80) [facility] Start: 12-31-2024 End: 12-31-2024 Patient encounter procedure 12/31/2024 9:00 AM EDT Office Visit [facility] [address] [place] [address] Milagros Hutson MD [address] [place] [address] Arrived [facility] Comment on above: Arrived Start: 11-13-2024 Aerobic Culture Aerobic Culture [facility] Start: 11-13-2024 Anaerobic Culture Anaerobic Culture [facility] Start: 11-13-2024 Microscopic observat ion [Identifier] in Unspecified specimen by Gram stain Gram Stain [facility] Start: 11-13-2024 End: 11-13-2024 [facility] Start: 10-20-2024 [facility] Start: 10-19-2024 Hospital admission [facility] Start: 10-19-2024 Dilation of Right Fe moral Artery with Intraluminal Device, Percutaneous Approach Dilation of Right Femoral Artery with Intraluminal Device, Percutaneous Approach [facility] Start: 10-19-2024 Dilation of Right Peroneal Artery, Percutaneous Approach Dilation of Right Peroneal Artery, Percutaneous Approach [facility] Start: 10-19-2024 Dilation of Right Popliteal Artery with Intraluminal Device, Percutaneous Approach Dilation of Right Popliteal Artery with Intraluminal Device, Percutaneous Approach [facility] Start: 10-19-2024 Dilation of Right Posterior Tibial Artery, Percutaneous Approach Dilation of Right Posterior Tibial Artery, Percutaneous Approach [facility] Start: 10-19-2024 Extirpation of Matte r from Right Femoral Artery, Open Approach Extirpation of Matter from Right Femoral Artery, Open Approach [facility] Start: 10-19-2024 Supplement Right Fem oral Artery with Synthetic Substitute, Open Approach Supplement Right Femoral Artery with Synthetic Substitute, Open Approach [facility] Start: 10-09-2024 BP Controlled (<130/80) BP Controlle d (<130/80) [facility] Start: 10-09-2024 Screening for malign ant neoplasm of lung Lung Cancer Screening [facility] Start: 08-07-2024 BP Controlled (<130/80) BP Controlle d (<130/80) [facility] Start: 07-31-2024 End: 07-31-2024 Patient encounter procedure Vascular Surgery Comment on above: DEYANIRA CTA A/P w/ Runoff 3M FOLLOW UP W/ CTA A/P W/ RUNOFF, DEYANIRA Start: 07-02-2024 BP Controlled (<130/80) BP Controlle d (<130/80) [facility] Start: 06-24-2024 Advance Directive Discussion Advance Directive Discussion [facility] Start: 05-28-2024 Hepatitis B surface antibody level LDL Cholesterol [facility] Start: 04-28-2024 End: 04-28-2024 Patient encounter procedure 04/28/2024 10:30 AM EST Office Visit Vascular Surg Dept [address] [place] [address] Papa Santiago MD [address] [place] [address] 3 month follow-up no testing [facility] Surg Dept Comment on above: 3 month follow-up no testing Start: 04-16-2024 End: 04-16-2024 Patient encounter procedure Radiology Comment on above: Lung nodule Lung nodule/6 MONTH FU/Staff Message Start: 04-07-2024 End: 04-07-2024 ambulatory 04/07/2024 8:30 AM EDT [facility] Cardiology [address] [place] [address] Shanice Larsen MD [address] [place] [address] dx: 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 Cardiology Comment on above: dx: 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 Start: 02-23-2024 Covid-19 Vaccine ( season) Covid-19 Vaccine () [facility] Start: 02-23-2024 Covid-19 Vaccine () Covid-19 Vaccine () [facility] Start: 02-23-2024 Influenza vaccination Influenza Vacc ine (#1) [facility] Start: 02-18-2024 End: 02-18-2024 Patient encounter procedure 02/18/2024 2:30 PM EDT Appointment Radiology [address] [place] [id number] Coronary artery disease of walk[place] artery of [place] heart with stable angina pect... Radiology Comment on above: Coronary artery dise ase of walk[place] artery of [place] heart with stable angina pect... 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 Cardiology Comment on above: Coronary artery dise ase of walk[place] artery of [place] heart with stable angina pect... Start: 01-16-2024 End: 01-16-2024 ambulatory 01/16/2024 10:45 AM EDT Results Only Cardiology [address] [place] [address] Coronary artery disease of [place] artery of [place] heart with stable angina pect... Cardiology Comment on above: Coronary artery dise ase of walk[place] artery of [place] heart with stable angina pect... Start: 01-15-2024 Hemoglobin A1c measurement HbA1C [facility] Start: 10-21-2023 End: 10-21-2023 Follow-up encounter 10/21/2023 3:30 PM EDT [facility] Pulmonary Medicine [address] [place] [address] Randolph Reyes MD [address] [place] [address] 3 Month Follow up Pulmonary Medicine Comment on above: 3 Month Follow up Start: 08-01-2023 End: 10-31-2023 CBC panel - Blood by Automated count CBC Lab Routine Surgery follow-up Expected: 08/01/2023, Expires: 10/31/2023 [facility] Work Phone: Comment on above: Expected: 08/01/2023 , Expires: 10/31/2023 Start: 08-01-2023 End: 10-31-2023 Comprehensive metabolic 2000 panel - Serum or Plasma COMP METABOLIC PANEL Lab Routine Surgery follow-up Expected: 08/01/2023, Expires: 10/31/2023 [facility] Work Phone: Comment on above: Expected: 08/01/2023 , Expires: 10/31/2023 Start: 06-24-2023 Advance Directive Discussion Advance Directive Discussion [facility] Start: 03-26-2023 End: 03-26-2023 [facility] Start: 02-22-2023 Covid-19 Vaccine () Covid-19 Vaccine () [facility] Start: 02-22-2023 Influenza vaccination Influenza Vacc ine (#1) [facility] Start: 2023 Advance Directive Discussion Advance Directive Discussion [facility] Start: 2023 Bone Density Screening Bone Density Screening [facility] Start: 2023 Screening for osteoporosis Bone Density Screening [facility] Start: 06-24-2022 Depression Assessment Depression Ass essment [facility] Start: 2018 RSV Vaccine (1 - 1-d ose 60+ series) RSV Vaccine (1 - 1-dose 60+ series) [facility] Start: 01-24-2008 Influenza vaccination Lung Cancer [facility] Start: 01-24-2008 Screening for malign ant neoplasm of lung Lung Cancer Screening [facility] Start: 01-24-2008 Shingrix Vaccine (1 of 2) Hernandez grix Vaccine (1 of 2) [facility] Start: 2003 Cologuard (FIT-DNA) Cologuard (FIT-D NA) [facility] Start: 2003 Colonoscopy Colonoscopy [facility] Start: 2003 Colorectal Cancer Screening Colorectal Cancer Screening [facility] Start: [address] COLONOGRAPHY [facility] Start: 2003 Fecal Occult Blood Fecal Occult Bloo d [facility] Start: 2003 Lipid 1996 panel - S radha or Plasma Lipid Screening [facility] Start: 2003 Screening for malign ant neoplasm of colon [facility] Start: 2003 SIGMOIDOSCOPY SIGMOIDOSCOPY [facility] Start: 1998 Mammography Mammogram Screening [facility] Start: 1998 Screening for malign ant neoplasm of breast [facility] Start: 1977 Urine microalbumin profile DTaP,Tdap,Td Vaccine (1 - Tdap) [facility] Start: 01-24-1976 Annual PCP Team Machine Filler Servicer carl Disease Visit Annual PCP Team Chronic Disease Visit [facility] Start: 01-24-1976 BP Controlled (<130/80) BP Controlle d (<130/80) [facility] Start: 01-24-1976 Hepatitis C Screening Hepatitis C [facility] Start: 01-24-1976 HIV Screening HIV Screening [facility] Start: 01-24-1968 Diabetic foot examination Diabetic F oot Exam [facility] Start: 01-24-1968 Glaucoma screening Dilated Retinal E xam [facility] Start: 01-24-1968 Hepatitis B screening Urine Al bumin:Creatinine Ratio [facility] Start: 01-24-1964 Pneumococcal Vaccine : 65+ (1 - PCV) Pneumococcal Vaccine: 65+ (1 - PCV) [facility] Start: 1958 Screening for malign ant neoplasm of colon [facility] [place]AC RE[place]AC RE[place]AB [place] ([place], [place]) B[place] Routine Coronary artery disease involving walk[place] coronary artery of [place] heart without angina pectoris Ordered: 09/03/2023 [facility] Work Phone: Comment on above: Ordered: 09/03/2023 CARDIAC REHAB [place] CARDIAC REHAB [place] ([place], [place]) BIC Routine 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) SOB (shortness of breath) PAD (peripheral artery disease) (HCC) TIA (transient ischemic attack) Ordered: 10/10/2023 [facility] Work Phone: Comment on above: Ordered: 10/10/2023 CT Chest WO contrast CT CHEST WO IVCON Radiology Routine Lung nodule 10/10/2023 10:41 AM EDT [facility] Work Phone: End: 11-19-2024 CT Chest WO contrast CT CHEST WO IVCON Radiology Routine Lung nodule 1 Occurrences starting 10/21/2023 until 11/19/2024 [facility] Work Phone: Comment on above: 1 Occurrences starti ng 10/21/2023 until 11/19/2024 End: 02-14-2025 CT Chest WO contrast CT CHEST WO IVCON Radiology Routine 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) PAD (peripheral artery disease) (HCC) Primary hypertension Hyperlipidemia, unspecified hyperlipidemia type 1 Occurrences starting 01/16/2024 until 02/14/2025 [facility] Comment on above: 1 Occurrences starti ng 01/16/2024 until 02/14/2025 CT Chest WO contrast CT CHEST WO IVCON Radiology Routine 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) PAD (peripheral artery disease) (HCC) Primary hypertension Hyperlipidemia, unspecified hyperlipidemia type 02/18/2024 2:09 PM EDT [facility] Work Phone: CT Chest WO contrast CT CHEST WO IVCON Radiology Routine Adverse effect of treatment, initial encounter Chest wall pain following surgery 09/17/2024 1:37 PM EDT [facility] Work Phone: End: 07-02-2024 Ct thorax w/o contrast material CT CHEST CARDIAC WO IVCON Radiology Routine Coronary artery disease involving walk[place] coronary artery of [place] heart with angina pectoris (HCC) PAD (peripheral artery disease) (HCC) S/P insertion of iliac artery stent Current smoker Primary hypertension Coronary angioplasty status 1 Occurrences starting 06/03/2023 until 07/02/2024 [facility] Work Phone: Comment on above: 1 Occurrences starti ng 06/03/2023 until 07/02/2024 End: 05-28-2025 CTA Abdominal, Pelvis and Lower extremity vessels W contrast IV CTA ABD/PEL LOWER EXTREM WO/W IVCON Radiology Routine Peripheral vascular disease (HCC) Diminished pulses in lower extremity PAD (peripheral artery disease) (HCC) 1 Occurrences starting 04/28/2024 until 05/28/2025 [facility] Comment on above: 1 Occurrences starti ng 04/28/2024 until 05/28/2025 End: 04-08-2024 ECG COMPLETE ECG COMPLETE ECG Routine Abnormal stress test 1 Occurrences starting 04/08/2023 until 04/08/2024 [facility] Work Phone: Comment on above: 1 Occurrences starti ng 04/08/2023 until 04/08/2024 End: 08-01-2024 ECG COMPLETE ECG COMPLETE ECG Routine Surgery follow-up 1 Occurrences starting 08/01/2023 until 08/01/2024 [facility] Work Phone: Comment on above: 1 Occurrences starti ng 08/01/2023 until 08/01/2024 End: 10-09-2024 ECG COMPLETE ECG COMPLETE ECG Routine 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) SOB (shortness of breath) PAD (peripheral artery disease) (HCC) TIA (transient ischemic attack) 1 Occurrences starting 10/10/2023 until 10/09/2024 [facility] Work Phone: Comment on above: 1 Occurrences starti ng 10/10/2023 until 10/09/2024 End: 01-15-2025 ECG COMPLETE ECG COMPLETE ECG Routine 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) PAD (peripheral artery disease) (HCC) Primary hypertension Hyperlipidemia, unspecified hyperlipidemia type 1 Occurrences starting 01/16/2024 until 01/15/2025 [facility] Comment on above: 1 Occurrences starti ng 01/16/2024 until 01/15/2025 End: 04-08-2025 ECG COMPLETE ECG COMPLETE ECG Routine 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) 1 Occurrences starting 04/08/2024 until 04/08/2025 [facility] Work Phone: Comment on above: 1 Occurrences starti ng 04/08/2024 until 04/08/2025 End: 04-03-2024 Echocardiography ECHO Cardiology Routine Abnormal stress test 1 Occurrences starting 04/03/2023 until 04/03/2024 [facility] Work Phone: Comment on above: 1 Occurrences starti ng 04/03/2023 until 04/03/2024 End: 07-02-2024 LUNG DIFFUSION CAPACITY (DLCO) LUNG DIFFUSION CAPACITY (DLCO) PFT Routine Coronary artery disease involving walk[place] coronary artery of [place] heart with angina pectoris (HCC) PAD (peripheral artery disease) ([facility]) S/P insertion of iliac artery stent Current smoker Primary hypertension Coronary angioplasty status 1 Occurrences starting 06/03/2023 until 07/02/2024 [facility] Work Phone: Comment on above: 1 Occurrences starti ng 06/03/2023 until 07/02/2024 Patient Education [facility] Work Phone: Patient referral [facility] Work Phone: End: 07-02-2024 SPIROMETRY BASELINE ONLY SPIROMETRY BASELINE ONLY PFT Routine Coronary artery disease involving [place] coronary artery of [place] heart with angina pectoris (HCC) PAD (peripheral artery disease) ([facility]) S/P insertion of iliac artery stent Current smoker Primary hypertension Coronary angioplasty status 1 Occurrences starting 06/03/2023 until 07/02/2024 [facility] [facility] Work Phone: Comment on above: 1 Occurrences starti ng 06/03/2023 until 07/02/2024 End: 06-03-2024 US CAROTID ARTERIES [facility] US CAROTID ARTERIES [facility] Vascular Lab Routine Coronary artery disease involving [place] coronary artery of [place] heart with angina pectoris (HCC) PAD (peripheral artery disease) (FORMERLY [facility]) S/P insertion of iliac artery stent Current smoker Primary hypertension Coronary angioplasty status 1 Occurrences starting 06/03/2023 until 06/03/2024 [facility] Work Phone: Comment on above: 1 Occurrences starti ng 06/03/2023 until 06/03/2024 End: 06-03-2024 US LEG VEIN MAP [facility] US LEG VEIN MAP [facility] Vascular Lab Routine Coronary artery disease involving [place] coronary artery of [place] heart with angina pectoris (FORMERLY [facility]) PAD (peripheral artery disease) ([facility]) S/P insertion of iliac artery stent Current smoker Primary hypertension Coronary angioplasty status 1 Occurrences starting 06/03/2023 until 06/03/2024 [facility] Work Phone: Comment on above: 1 Occurrences starti ng 06/03/2023 until 06/03/2024 End: 01-02-2025 US Lower extremity artery - bilateral PVR LEG [facility] Vascular Lab Routine Atherosclerosis of [place] arteries of extremities with rest pain, bilateral legs (FORMERLY [facility]) 1 Occurrences starting 01/03/2024 until 01/02/2025 [facility] Work Phone: Comment on above: 1 Occurrences starti ng 01/03/2024 until 01/02/2025 End: 06-03-2024 US MAMMARY ARTERY [facility] US MAMMARY ARTERY [facility] Vascular Lab Routine Coronary artery disease involving [place] coronary artery of [place] heart with angina pectoris (HCC) PAD (peripheral artery disease) (FORM[facility]LY [facility]) S/P insertion of iliac artery stent Current smoker Primary hypertension Coronary angioplasty status 1 Occurrences starting 06/03/2023 until 06/03/2024 [facility] Work Phone: Comment on above: 1 Occurrences starti ng 06/03/2023 until 06/03/2024 End: 06-03-2024 US RADIAL ARTERY MAP [facility] US RADIAL ARTERY MAP [facility] Vascular Lab Routine Coronary artery disease involving [place] coronary artery of [place] heart with angina pectoris (HCC) PAD (peripheral artery disease) ([facility]) S/P insertion of iliac artery stent Current smoker Primary hypertension Coronary angioplasty status 1 Occurrences starting 06/03/2023 until 06/03/2024 [facility] Work Phone: Comment on above: 1 Occurrences starti ng 06/03/2023 until 06/03/2024 End: 04-28-2025 US.doppler Extremity arteries - bilateral for physiologic artery study PVR ANK PRESS [facility] Vascular Lab Routine Peripheral vascular disease ([facility]) Diminished pulses in lower extremity PAD (peripheral artery disease) ([facility]) 1 Occurrences starting 04/28/2024 until 04/28/2025 [facility] Work Phone: Comment on above: 1 Occurrences starti ng 04/28/2024 until 04/28/2025 End: 08-30-2024 XR Chest 2 Views XR CHEST 2V FRONTAL/LAT Radiology Routine Surgery follow-up 1 Occurrences starting 08/01/2023 until 08/30/2024 [facility] Work Phone: Comment on above: 1 Occurrences starti ng 08/01/2023 until 08/30/2024 [facility] Immunizations Immunization Date Immunization Notes Care Provider Fa cili 05-29-2023 influenza virus vacc ine, unspecified formulation Nano Nguyen MD Work Phone: [facility] 04-10-2022 influenza, injectabl e, quadrivalent, contains preservative Nano Nguyen Work Phone: [facility] 250 DO Work Phone: 04-10-2022 influenza virus vacc ine, unspecified formulation Shanice Larsen MD Work Phone: [facility] 05-24-2021 [place] COVID-19 Vac cine 0.5 ML Intramuscular Suspension Nano Nguyen Work Phone: [facility] 11-11-2020 [place] COVID-19 Vac cine 0.5 ML Intramuscular Suspension Nano Nguyen Work Phone: [facility] 08-13-2020 zoster vaccine recombinant Nano Titus Hoy Work Phone: [facility] 250 DO Work Phone: 06-11-2020 zoster vaccine recombinant Nano [facility] Work Phone: Payers Date Payer Category Payer Medicare [id number] 2024 Self-pay 2024 Unknown [id number] 2024 Private Health Insurance DEVOTED MEDICARE CHRISTINE GLORIA [id number] 2023 Medicare (Managed Care) DEVOTED HEALTH [id number] 2023 Unknown [id number] 2023 Medicaid MEDICAID [facility] MEDICAID [id number] 2023-Present [phone] [address] [place] [address] Medicaid [id number] 2023 Medicare [id number]. [id number] 2023 Medicare [id number] 1959 Private Health Insurance [id number] 1959 Unknown [id number] 1958 Unknown [id number] 2.16.840.1.393904.3.579.2. 356 1958 Unknown [id number] 2.16.840.1.047996.3.579.2. 593 1958 Unknown [id number] 2.16.840.1.163188.3.579.2. 593 1958 Unknown [id number] 2.16.840.1.617392.3.579.2. 593 1958 Unknown [id number] 2.16.840.1.298960.3.579.2. 593 1958 Unknown [id number] 2.16.840.1.561037.3.579.2. 593 1958 Unknown [id number] 2.16.840.1.417721.3.579.2. 593 1958 Unknown [id number] 2.16.840.1.532987.3.579.2. 593 1958 Unknown [id number] 2.16.840.1.640271.3.579.2. 593 1958 Unknown [id number] 2.16.840.1.011882.3.579.2. 593 1958 Unknown [id number] 2.16.840.1.242655.3.579.2. 593 1958 Unknown [id number] 2.16.840.1.719002.3.579.2. 593 1958 Unknown [id number] 2.16.840.1.534710.3.579.2. 593 1958 Unknown [id number] 2.16.840.1.039768.3.579.2. 593 1958 Unknown [id number] 2.16.840.1.735327.3.579.2. 1286 1958 Unknown [id number] 2.16.840.1.519034.3.579.2. 1286 1958 Unknown [id number] 2.16.840.1.922100.3.579.2. 1286 1958 Unknown [id number] 2.16.840.1.547336.3.579.2. 1286 1958 Unknown [id number] 2.16840.1.972616.3.579.2. 1259 1958 Unknown [id number] 2.16.840.1.927838.3.579.2. 1259 Private Health Insurance [id number] Unknown [facility] Unknown [id number] 2.16840.1.444303.3.579.2. 531 Unknown [id number] 2.16840.1.873456.3.579.2. 531 Unknown [id number] 2.16.840.1.200206.3.579.2. 531 Unknown [id number] 2.16840.1.912729.3.579.2. 531 Social History Date Type Detail Facility Start: 04-03-2023 End: 12-30-2023 Social alcohol use Social alcohol use -[facility] [address] DO Work Phone: Comment on above: gummies, and pot; Start: 03-20-2023 End: 11-13-2024 Tobacco smoking status NHIS Smoker (finding) [facility] Start: 1960 Sex Assigned At Female F [facility] Start: 04-03-2023 End: 12-30-2023 Sex Assigned At [facility] [employer] Other Start: 04-03-2023 End: 12-30-2023 Tobacco smoking status NHIS Smokes tobacco daily [facility] History of tobacco use Cigarette Smoker [facility] Start: 04-03-2023 End: 12-30-2023 Tobacco use and exposure Smokeless tobacco non-user [facility] Start: 04-03-2023 End: 09-17-2024 Alcohol intake Current drinker of alcohol (finding) [facility] National Score (1-100), lower number is lower risk 91 [facility] Start: 1960 Sex Assigned At Not on file [facility] Start: 09-24-2024 End: 11-13-2024 Sex Female (finding) [facility] Start: 10-20-2024 SDOH Follow up SDOH Follow up [facility] Work Phone: Start: 01-05-2024 Gender identity Identifies as female gender (finding) [facility] Medical Equipment Procedure Code Equipment Code Equipment Origin al Text Equipment Identifier Dates Endarterectomy of femoral artery using patch graft for repair Cardiovascular patch, animal-derived ()[id number] FDA Start: 10-19-2024 Endarterectomy of femoral artery using patch graft for repair Multiple peripheral artery stent, bare-metal ()[id number] FDA Start: 10-19-2024 Endarterectomy of femoral artery using patch graft for repair Multiple peripheral artery stent, bare-metal ()[id number] FDA Start: 10-19-2024 [place] Thk1.65mm P tfe 4x.5in Cardiovascular Sterile - [id number] Start: 07-29-2023 Start: 02-14-2022 Goals Date Patient Goal Desired Activity /State Personal health goal Personal health goal Functional Status Date Assessment Result Facility 10-20-2024 Functional status Patient is Pro gressing Toward Baseline [facility] Work Phone: 08-02-2023 Are you deaf, or do you have serious difficulty hearing No 08/02/2023 2:01 PM Lamin Rodriguez RN No [facility] 08-02-2023 Are you blind, or do you have serious difficulty seeing, even when wearing glasses No 08/02/2023 2:01 PM Lamin Rodriguez, PATRICK No [facility] 08-02-2023 Do you have serious difficulty walking or climbing stairs No 08/02/2023 2:01 PM Lamin Rodriguez, PATRICK No [facility] 08-02-2023 Do you have difficul ty dressing or bathing No 08/02/2023 2:01 PM Lamin Rodriguez, PATRICK No [facility] 08-02-2023 Because of a physica l, mental, or emotional condition, do you have difficulty doing errands alone such as visiting a physician's office or shopping No 08/02/2023 2:01 PM Lamin Rodriguez, PATRICK No [facility] Mental Status Date Assessment Result Facility 10-20-2024 Cognitive function Cognitive Sta tus Patient is Progressing Toward Baseline [facility] Work Phone: 08-02-2023 Because of a physica l, mental, or emotional condition, do you have serious difficulty concentrating, remembering, or making decisions No 08/02/2023 2:01 PM Lamin Rodriguez, PATRICK No [facility] Clinical Notes 05-10-2022 to 12-31-2024 Milagros Hutson MD - 12/31/2024 9:00 AM EDTTelephone Encounter - Hilary Ott RN - 11/25/2024 11:02 AM EDTTelephone Encounter - Hilary Ott RN - 11/25/2024 11:02 AM EDT Note Date & Type Note Facility 12-31-2024 History of Presen t illness Narrative Assessment/Plan Diabetes Mellitus with MINIMAL signs of diabetic retinopathy on dilated retinal examination today OU: Discussed the pathophysiology of diabetes and its effect on the eye. Stressed the importance of strong glucose control. Advised of importance of at least yearly dilated examinations, but to contact us immediately for any problems or concerns. Continue aggressive control of the blood sugar, blood pressure and cholesterol. documented in this encounter [facility] 11-25-2024 Telephone encount er Note 11/25/24: LVM asking patient to schedule Dr. Reyes with CT Chest latter part january. Left my number. Hilary Ott RN Respiratory [facility] 11-25-2024 Miscellaneous Notes Formattin g of this note might be different from the original. 11/25/24: LVM asking patient to schedule Dr. Reyes with CT Chest latter part january. Left my number. Hilary Ott RN [facility] documented in this encounter [facility] 11-13-2024 Procedure note [facility] enter 10-19-2024 Evaluation note Diagnosis Onset Date Resolution Peripheral vascular disease inactive October 19, 2024 7:20am [facility] Work Phone: 1(610) 886-282504-28-2025 Evaluation note* Diagnosis Onset Date Resolution Status Admit Date Peripheral vascular disease inactive October 19, 2024 7:20am Encounter for surgical aftercare following surgery of circulatory system acute November 05 9:25am Peripheral arterial disease acute November 05, 2024 9:25am Right foot ulcer acute October 9:25am Wound dehiscence acute October 9:25am [facility] Work Phone: 1(111) 493-555704-28-2025 Evaluation note* Diagnosis Onset Date Resolution Status Admit Date Peripheral vascular disease inactive October 19, 2024 7:20am Encounter for surgical aftercare following surgery of circulatory system acute November 05 9:25am Peripheral arterial disease acute November 05, 2024 9:25am Right foot ulcer acute October 9:25am Wound dehiscence acute October 9:25am Wound dehiscence acute October 9:15am [facility] Work Phone: 1(769) 662-116604-28-2025 Evaluation note* Diagnosis Onset Date Resolution Status Admit Date Peripheral vascular disease inactive October 19, 2024 7:20am Encounter for surgical aftercare following surgery of circulatory system acute November 05 9:25am Peripheral arterial disease acute November 05, 2024 9:25am Right foot ulcer acute October 9:25am Wound dehiscence acute October 9:25am Wound dehiscence acute October 9:15am Wound dehiscence acute November 11:08am [facility] Work Phone: 1(462) 860-618203-27-2025 History of Present illness Narrative* Chichi Serna RT(R) - 09/17/2024 1:30 PM EDT Radiology Service Progress Note PATIENT NAME: Elizabeth Quezada DATE OF SERVICE: September 17, 2024 TIME: 1:29 PM PATIENT IDENTITY VERIFICATION COMPLETED USING TWO (2) IDENTIFIERS: Name and Date of confirmedby patient verbally and Name and Date of confirmed by identification band. FALL SCREENING: Has the patient had 2 falls in the last year or 1 fall with injury or currently using an Ambulatory Assistive Device (Walker, Cane, Wheelchair, Crutches, etc.)? No PATIENT GENDER DATA: Assigned female at . status: : No status:NO. PATIENT RELEVANT IMPLANT DATA REVIEWED: Yes PATIENT PRESENTS WITH AN IMPLANTABLE OR ATTACHED HAIR SAMPLE MATCHER: No RADIOLOGY DEPARTMENT: CT; Exam(s) Completed: Chest PERIPHERAL IV DATA: Not applicable SIGNED BY: RT Rolando(R) September 17, 2024 1:29 PM [facility]25 NoteHNO ID: [id number] Author: CHICHI SERNA RT(R) Service: Radiology Author Type: Technologist Type: Progress Notes Filed: 09/17/2024 13:31 Note Text: Radiology Service Progress Note PATIENT NAME: Elizabeth Quezada DATE OF SERVICE: September 17, 2024 TIME: 1:29 PM PATIENT IDENTITY VERIFICATION COMPLETED USING TWO (2) IDENTIFIERS: Name and Date of confirmed by patient verbally and Name and Date of confirmed by identification band. FALL SCREENING: Has the patient had 2 falls in the last year or 1 fall with injury or currently using an Ambulatory Assistive Device (Walker, Cane, Wheelchair, Crutches, etc.)? No PATIENT GENDER DATA: Assigned female at . status: : No status: NO. PATIENT RELEVANT IMPLANT DATA REVIEWED: Yes PATIENT PRESENTS WITH AN IMPLANTABLE OR ATTACHED HAIR SAMPLE MATCHER: No RADIOLOGY DEPARTMENT: CT; Exam(s) Completed: Chest PERIPHERAL IV DATA: Not applicable SIGNED BY: RT Rolando(R) September 17, 2024 1:29 [facility]03-27-2025 History of Present illness Narrative* Dania Cruz APRN.DEHYDRATION UNIT OPERATOR - 09/17/2024 11:00 AM EDT Images from the original note were not included. [facility] [place] [facility] Goldstein Department of Cardiovascular Medicine DEPARTMENT OF CARDIAC SURGERY OUTPATIENT VISIT DATE September 16, 2024 OUTPATIENT VISIT TYPE FOLLOW UP Elizabeth Quezada is a 64 year old female who is here for return post op follow up visit. Most recent Cardiac Surgery: S/P on 07/29/2023 [facility] Surgeon: Willem Suarez MD Operations : CABG x4 (GURROLA->LAD, rSVG->OM1, rSVG->RCA->PDA) Discharged on 08/02/2023 HPI: patient presents today for persistent popping and clicking since surgery. Sxs are intermittent. Denies any fever or chills. Denies any redness warmth or drainage along incision site. Accompanied by friend. Allergies: ALLERGIES Allergen Reactions Tetracycline Unknown, GI Upset Januvia [Sitaglipti* Unknown Miconazole Itching, Swelling Rosuvastatin Unknown Allerg Xt,D.Farinae* Itching Cat Hair Standardiz* Itching sneezing House Dust Itching Medications: Current Outpatient Medications Medication Sig rosuvastatin (CRESTOR) 5 mg tablet Take 2.5 [...] No current facility-administered medications for this visit. Medications and Allergies have been reviewed. Pain scale :Yes chronic back. Also intermittent distal msi Appetite: good Activity: Walking limited by generalize weakness and ble vascular issues Sleep: difficulty staying asleep due to clicking with movement Incisions/Wounds: healed Do you feel safe in the home? Yes Dania Cruz APRN.DEHYDRATION UNIT OPERATOR CC: It's at the bottom, it pops and feel it click with movement PE: BP 136/70 Pulse 86 Temp 36.7 C (98.1 F) (Oral) Ht 165.1 cm (5' 5 ) Wt 73.4 kg (161 lb 12.8 oz) SpO2 98% BMI 26.92 kg/m Appearance: well developed, white female, in no acute distress Cardiac: regular S1, S2, No murmur, No rub Lungs: Clear breath sounds bilaterally without wheeze or dullness Extremities: Edema: bilateral 1+ Sternotomy site: healing, clean, dry and intact, with noted distal movement Wound: NA SV [place] sites: healing and clean, dry and intact Procedures: N/A IMPRESSION & PLAN: 1.S/P on 07/29/2023 [facility] Surgeon: Willem Suarez MD Operations : CABG x4 (GURROLA->LAD, rSVG->OM1, rSVG->RCA->PDA) Discharged on 08/02/2023 2. Sternal pain/movement - notable since surgery especially at the distal end - intermittent pain - CTS fellow Dr. Rodarte came and assessed patient agree with exam will get CT chest today - at this time per fellow after seeing images, continue to monitor continue sternal precaution. Will await final CT results and reviewed with Dr. Suarez - per pt would like to await for her vascular surgery first unless there's an acute concern for thesternum to be done first. CT CHEST :09/17/2024 IMPRESSION: 1. Unchanged fractured inferior most median sternotomy wire with increasing 1cm distraction. 2. Stable appearance of the posterior right upper lobe nodular opacity dating back to May 2023. Again this may represent atelectasis or scar, although indolent neoplasm cannot be completely excluded. Attention on follow-up is recommended. 3. Smoking related lung injury including centrilobular emphysema and respiratory bronchiolitis. Spinning Machine Tender: CHRISTOPHER Transcribe Date/Time: Sep 18 2024 2:39P Dictated by : MYRON EDMONDS MD REFERRAL (RECOMMENDATION): see above. Electronically Signed By Dania Cruz APRN.DEHYDRATION UNIT OPERATOR In Department: CARDIOTHORACIC Dania Cruz APRN.DEHYDRATION UNIT OPERATOR documented in this encounterProm[facility]03-27-2025 NoteHNO ID: [id number] Author: SANDALAKIS, ANDEGONI, NEWS PRODUCTION ASSISTANT.DEHYDRATION UNIT OPERATOR Service: ? Author Type: Nurse Practitioner Type: Progress Notes Filed: 09/24/2024 18:13 Note Text: [facility] [place] [facility] Department of Cardiovascular Medicine DEPARTMENT OF CARDIAC SURGERY OUTPATIENT VISIT DATE September 16, 2024 OUTPATIENT VISIT TYPE FOLLOW UP Elizabeth Quezada is a 64 year old female who is here for return post op follow up visit. Most recent Cardiac Surgery: S/P on 07/29/2023 [facility] Surgeon: Willem Suarez MD Operations : CABG x4 (GURROLA->LAD, rSVG->OM1, rSVG->RCA->PDA) Discharged on 08/02/2023 HPI: patient presents today for persistent popping and clicking since surgery. Sxs are intermittent. Denies any fever or chills. Denies any redness warmth or drainage along incision site. Accompanied by friend. Allergies: ALLERGIES Allergen Reactions Tetracycline Unknown, GI Upset Januvia [Sitaglipti* Unknown Miconazole Itching, Swelling Rosuvastatin Unknown Allerg Xt,DMelFarinae* Itching Cat Hair Standardiz* Itching sneezing House Dust Itching Medications: Current Outpatient Medications Medication Sig rosuvastatin (CRESTOR) 5 mg tablet Take 2.5 [...] No current facility-administered medications for this visit. Medications and Allergies have been reviewed. Pain scale :Yes chronic back. Also intermittent distal msi Appetite: good Activity: Walking limited by generalize weakness and ble vascular issues Sleep: difficulty staying asleep due to clicking with movement Incisions/Wounds: healed Do you feel safe in the home? Yes Dania Cruz APRN.DEHYDRATION UNIT OPERATOR CC: It's at the bottom, it pops and feel it click with movement PE: BP 136/70 Pulse 86 Temp 36.7 ?C (98.1 ?F) (Oral) Ht 165.1 cm (5' 5 ) Wt 73.4 kg (161 lb 12.8 oz) SpO2 98% BMI 26.92 kg/m? Appearance: well developed, white female, in no acute distress Cardiac: regular S1, S2, No murmur, No rub Lungs: Clear breath sounds bilaterally without wheeze or dullness Extremities: Edema: bilateral 1+ Sternotomy site: healing, clean, dry and intact, with noted distal movement Wound: NA SV [place] sites: healing and clean, dry and intact Procedures: N/A IMPRESSION AND PLAN: 1.S/P on 07/29/2023 [facility] Surgeon: Willem Suarez MD Operations : CABG x4 (GURROLA->LAD, rSVG->OM1, rSVG->RCA->PDA) Discharged on 08/02/2023 2. Sternal pain/movement - notable since surgery especially at the distal end - intermittent pain - CTS fellow Dr. Rodarte came and assessed patient agree with exam will get CT chest today - at this time per fellow after seeing images, continue to monitor continue sternal precaution. Final CT results reviewed with Dr. Suarez conservative approach best - per pt agrees with recommend. would like to await for her vascular surgery - will notify Dr. Suarez's office if wishes to pursue further. CT CHEST :09/17/2024 IMPRESSION: 1. Unchanged fractured inferior most median sternotomy wire with increasing 1cm distraction. 2. Stable appearance of the posterior right upper lobe nodular opacity dating back to May 2023. Again this may represent atelectasis or scar, although indolent neoplasm cannot be completely excluded. Attention on follow-up is recommended. 3. Smoking related lung injury including centrilobular emphysema and respiratory bronchiolitis. Spinning Machine Tender: CHRISTOPHER Transcribe Date/Time: Sep 18 2024 2:39P Dictated by : MYRON EDMONDS MD REFERRAL (RECOMMENDATION): see above. Electronically Signed By Dania Cruz APRN.DEE DEE In Department: CARDIOTHORACIC Dania Cruz APRN.CNPThe [facility]02-05-[facility] Telephone encounter Note* Telephone Encounter - Pinky Gutierres RN - 07/29/2024 6:51 PM EST Images from the original note were not included. [facility] Phone Encounter DATE of SERVICE: 07/29/2024 TIME of SERVICE: 6:51 PM Status: Non-urgent, Needs attention Service/Provider: Cardiac Surgery Willem Suarez M.D. Reason for call: Other Issue: Sternal issue Contact information: [phone] Resolution: Referral to to [facility] Comments: Followed up on patient questionnaire regarding sternal concerns. Spoke with patient who states that she experiences occasional clicking and movement in sternal area. She has experienced this since shortly after surgery. Incision otherwise healing well. No fever or chills States only minimal pain associated with this but is concerned. She saw Dr. Larsen in March regarding this.. I advised patient she should follow up in [facility] for evaluation and provided her the number. Discussed priority symptoms warranting ED assessment. Please advise if any further recommendations at this time. Pinky Gutierres RN Date of Resolution: 07/29/2024 Time of Resolution 6:51 PM [facility]02-05-2025 Miscellaneous Notes* Telephone Encounter - Pinky Gutierres RN - 07/29/2024 6:51 PM EST Images from the original note were not included. [facility] Phone Encounter DATE of SERVICE: 07/29/2024 TIME of SERVICE: 6:51 PM Status: Non-urgent, Needs attention Service/Provider: Cardiac Surgery Willem Suarez M.D. Reason for call: Other Issue: Sternal issue Contact information: [phone] Resolution: Referral to to [facility]PD Comments: Followed up on patient questionnaire regarding sternal concerns. Spoke with patient who states that she experiences occasional clicking and movement in sternal area. She has experienced this since shortly after surgery. Incision otherwise healing well. No fever or chills States only minimal pain associated with this but is concerned. She saw Dr. Larsen in March regarding this.. I advised patient she should follow up in [facility] for evaluation and provided her the number. Discussed priority symptoms warranting ED assessment. Please advise if any further recommendations at this time. Pinky Gutierres RN Date of Resolution: 07/29/2024 Time of Resolution 6:51 PM documented in this encounterPromedica [facility]01-28-[facility]25 Telephone encounter Note * Telephone Encounter - Anna Segundo - 07/21/2024 9:31 AM EST Patient called the office and stated that she has a back injury and hasn't stopped smoking, she's been depressed and just not feeling well. Patient also asked that I cancel her July 31, 2024 appointments and to send over her PVR results from 01/2024 to her primary doctor. [facility]01-28-[facility] Miscellaneous Notes* Telephone Encounter - Anna Segundo - 07/21/2024 9:31 AM EST Patient called the office and stated that she has a back injury and hasn't stopped smoking, she's been depressed and just not feeling well. Patient also asked that I cancel her July 31, 2024 appointments and to send over her PVR results from 01/2024 to her primary doctor. documented in this encounterPromedica Memorial Hospital11-05-2024 NoteHNO ID: [id number] Author: PAPA SANTIAGO MD Service: ? Author Type: Physician Type: Progress Notes Filed: 04/28/2024 14:41 Note Text: [facility] V[facility] [place] DEPARTMENT OF VASCULAR SURGERY OUTPATIENT VISIT DATE [...] PAST MEDICAL HISTORY Diagnosis Date Atherosclerosis of [place] arteries of extremity with intermittent claudication (HCC) [...] equal, round and reactive. Cardiovascular: Normal S1 AND S2, no rubs, murmurs or gallops. No JVD., Pulse regular. Lungs: Normal breath sounds, no wheezes or crackles. Abdomen: Soft, non-tender, no rigidity. Extremities: No deformity, no edema or tenderness, no joint swelling or clubbing. Neurological: Normal cognition (more content not included)...[facility]11-05-2024 History of Present illness Narrative* Papa Santiago MD - 04/28/2024 2:18 PM EST Images from the original note were not included. 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 Discontinue saline lock post exam. IfPt. has a central line or IVAD, may [...] 2024 TIME: 2:18 PM documented in this encounterPromedica [facility] Hospital10-15-2024 History of Present illness Narrative* Shanice Larsen MD - 04/07/2024 8:30 AM EDT Heart, V[facility] & [facility] [place] Department of Cardiovascular Medicine VIRTUAL VIDEO VISIT [...] visit. Either the patient or their legal wine sales representative has been informed of the risks and benefits of -- and alternatives to -- treatment through a remote evaluation andconsents to proceed with the evaluation remotely. CHIEF [...] PAST MEDICAL HISTORY Diagnosis Date Atherosclerosis of [place] arteries of extremity with intermittent claudication (HCC) [...] vessels: CABG changes are noted. Severe multivessel [place] coronary artery calcifications noted. Atherosclerotic calcifications of [...] collaterals), current smoker, COPD and type II diabeticwho presents today for cardiovascular medicine follow up. [...] Scribe Attestation: By signing my name below, IAidan, attest that this documentation has been prepared under the direction and in the presence of Shanice Larsen MD Electronically Signed:payton Leos, April 07, 2024 8:57 AM Provider Attestation: I, Shanice Larsen MD, [...] 08, 2024 8:16 PM documented in this encounterPromedica Memorial Hospital10-15-2024 NoteHNO ID: [id number] Author: SHANICE LARSEN MD Service: ? Author Type: Physician Type: Progress Notes Filed: 04/08/2024 20:18 Note Text: Heart, Vascular AND Thor[facility] [place] Department of Cardiovascular Medicine VIRTUAL VIDEO VISIT [...] visit. 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 Severe multivessel walk[place] coronary artery calcifications noted. Atherosclerotic calcifications of the aorta and its branches noted including aortic root. Normal caliber ascending aorta and pulmonary trunk noted. Normal heart size noted. No pericardial effusion. Focal areas of low-attenuation involving right ventricular myocardium, (more content not included)...[facility]09-04-2024 History of Present illness Narrative* Christel Fitch - 02/26/2024 10:09 AM EDT Follow Up Diagnosis: Lung Nodule Recommendation: CT Scan Follow up Date: 02/15/2025 Follow-Up Scheduled: No Pulmonary Follow-Up Type: Lung Nodule Surveillance Enrolled in Lung Nodule program: Yes Lung Nodule Program Location: [facility] documented in this encounterPromedica Memorial Hospital09-04-2024 NoteHNO ID: [id number] Author: ?, ?, ? Service: ? Author Type: ? Type: Progress Notes Filed: 02/26/2024 10:09 Note Text: Follow Up Diagnosis: Lung Nodule Recommendation: CT Scan Follow up Date: 02/15/2025 Follow-Up Scheduled: No Pulmonary Follow-Up Type: Lung Nodule Surveillance Enrolled in Lung Nodule program: Yes Lung Nodule Program Location: [facility]09-04-2024 NotePatient Outreach (PULKEVN) ELIZABETH QUEZADA ([id number]) 1960 F Date Time Provider Department 02/26/24 CHRISTEL FITCH During your visit today, we recorded the following information about you: Christel Fitch 02/26/2024 10:09 AM Signed Follow Up Diagnosis: Lung Nodule Recommendation: CT Scan Follow up Date: 02/15/2025 Follow-Up Scheduled: No Pulmonary Follow-Up Type: Lung Nodule Surveillance Enrolled in Lung Nodule program: Yes Lung Nodule Program Location: [place] Allergies As of Date: 02/26/2024 Noted Allergy Reaction TETRACYCLINE 09/27/2022 16 - Unknown 8 - GI Upset Januvia (SITAGLIPTIN) 06/24/2019 16 - Unknown MICONAZOLE 01/06/2024 9 - Itching 7 - Swelling ROSUVASTATIN 06/24/2019 16 - Unknown ALLERG XT,D.FARINAE-D.PTERONYS 07/19/2022 9 - Itching CAT HAIR STANDARDIZED ALLERGENIC *09/27/2022 9 - Itching Comments: sneezing HOUSE DUST 07/19/2022 9 - Itching Date Reviewed: 01/28/2024 Reviewed by: Cyndi Haynes LPN - Fully Assessed Prescriptions as of 02/26/2024 - oxybutynin (DITROPAN) 5 mg tablet two times a day. - trospium chloride (TROSPIUM ORAL) Take by mouth once daily. - rivaroxaban (XARELTO) 2.5 mg tablet Take 1 tablet by mouth two times a day. - lisinopril (ZESTRIL) 20 mg tablet Take 1 tablet by mouth once daily. - TRULICITY 0.75 mg/0.5 mL pen injector Inject 0.75 mg subcutaneously one time a week. Patient should start on August 23, 2023. - VENTOLIN HFA 90 mcg/actuation inhaler Inhale 2 Puffs as instructed every 6 hours as needed for wheezing/shortness of breath. - aspirin 81 mg chewable tablet Take 1 tablet by mouth once daily. - clopidogrel (PLAVIX) 75 mg tablet Take 1 tablet by mouth once daily. - ezetimibe (ZETIA) 10 mg tablet Take 1 tablet by mouth once daily. - venlafaxine ER (EFFEXOR XR) 75 mg 24 hr capsule Take 1 capsule by mouth once daily. - metoprolol succinate ER (TOPROL XL) 50 mg 24 hr tablet Take 0.5 tablets by mouth two times a day. - docusate sodium (COLACE) 100 mg capsule Take 1 capsule by mouth two times a day. - JARDIANCE 10 mg tablet Take 1 tablet by mouth once daily. - metFORMIN (GLUCOPHAGE) 1,000 mg tablet Take 1,000 mg by mouth two times a day. Problem List As Of Date 02/26/2024 Noted Resolved Morbid obesity (HCC) [E66.01] 05/13/2023 Atherosclerosis of [place] arteries of extremity*06/14/2023 Essential hypertension [I10] 06/14/2023 Type 2 diabetes mellitus without complication, *06/14/2023 CAD (coronary artery disease) [I25.10] 06/14/2023 Atherosclerosis of [place] arteries of left leg *06/18/2023 Atherosclerosis of [place] arteries of extremiti*07/02/2023 Coronary artery disease involving walk[place] pack*07/02/2023 Lung nodule [R91.1] 07/12/2023 Discharge planning issues [Z75.8] 07/17/2023 Pre-op testing [Z01.818] 07/17/2023 Carotid stenosis, asymptomatic, bilateral [I65.*07/29/2023 CAD, multiple vessel [I25.10] 07/29/2023 Encounter for support and coordination of trans*08/01/2023 Hyperlipidemia LDL goal <70 [E78.5] 08/01/2023 PVD (peripheral vascular disease) (HCC) [I73.9] 08/01/2023 ABLA (acute blood loss anemia) [D62] 08/01/2023 Thrombocytopenia (HCC) [D69.6] 08/01/2023 Anxiety and depression [F41.9, F32.A] 08/01/2023 History of smoking [Z87.891] 08/01/2023 Primary hypertension [I10] 08/01/2023 Obesity, Class I, BMI 30-34.9 [E66.9] 08/01/2023 Hypo-osmolality and hyponatremia [E87.1] 08/02/2023 Encounter Status:Closed by CHRISTEL FITCH on 02/26/24[facility] 02-25-2024 Telephone encounter Note* Telephone Encounter - Hilary Ott RN - 02/25/2024 6:02 PM EDT 02/25/[address] Eric lloyd. Hilary Ott RN Respiratory [place] [facility]09-[facility] Miscellaneous Notes* Telephone Encounter - Hilary Ott RN - 02/25/2024 6:02 PM EDT 02/25/[address] Eric lloyd. Hilary Ott RN [facility] documented in this encounterPromedica Memorial Hospital09-03-2024 Telephone encounter Note * Telephone Encounter - Hilary Ott RN - 02/25/2024 5:59 PM EDT 02/25/24: Dr. Reyes requests patient be called with results of Ct Chest done 02/18/24: CT chest reviewed. Rt lung nodule opacity unchanged since 05/2023. Recommend continued monitoring -repeat CT imaging in 1 year. Called patient & LVM and sent MyC. Hilary Ott RN [facility]09-03-2024 Miscellaneous Notes* Telephone Encounter - Hilary Ott RN - 02/25/2024 5:59 PM EDT 02/25/24: Dr. Reyes requests patient be called with results of Ct Chest done 02/18/24: CT chest reviewed. Rt lung nodule opacity unchanged since 05/2023. Recommend continued monitoring -repeat CT imaging in 1 year. Called patient & LVM and sent MyC. Hilary Ott RN [facility] documented in this encounterPromedica Memorial Hospital08-27-2024 History of Present illness Narrative* Pano, Murtaza, RT(R) - 02/18/2024 2:30 PM EDT Radiology Service Progress Note PATIENT NAME: [...] PATIENT PRESENTS WITH AN IMPLANTABLE OR ATTACHED HAIR SAMPLE MATCHER: No RADIOLOGY DEPARTMENT: CT; Exam(s) Completed: Chest PERIPHERAL IV DATA: Not applicable SIGNED BY: GIORGIO Meyer) February 18, 2024 2:05 PM documented in this encounterPromedica Memorial Hospital08-27-2024 NoteHNO ID: [id number] Author: MURTAZA MERCER RT (R) Service: Radiology Author Type: Technologist Type: Progress Notes Filed: 02/18/2024 14:09 Note Text: Radiology Service Progress Note PATIENT [...] PATIENT PRESENTS WITH AN IMPLANTABLE OR ATTACHED HAIR SAMPLE MATCHER: No RADIOLOGY DEPARTMENT: CT; Exam(s) Completed: Chest PERIPHERAL IV DATA: Not applicable SIGNED BY: GIORGIO Meyer) February 18, 2024 2:05 [facility]08-13-2024 History of Present illness Narrative* Haydee Fried - 02/04/2024 12:53 PM EDT QOL Call Tracking Documentation Follow-Up Type: Phone Call Call Attempt: 1st Attempt Call Status: Complete documented in this encounterPromedica Memorial Hospital08-13-2024 NoteHNO ID: [id number] Author: ?, ?, ? Service: ? Author Type: ? Type: Progress Notes Filed: 02/04/2024 12:53 Note Text: QOL Call Tracking Documentation Follow-Up Type: Phone Call Call Attempt: 1st Attempt Call Status: CompleteThe [facility] NotePatient Outreach (CIUMN) ELIZABETH QUEZADA ([id number]) 1960 F Date Time Provider Department 02/04/24 HAYDEE FRIEDUMN During your visit today, we recorded the following information about you: Haydee Fried 02/04/2024 12:53 PM Signed QOL Call Tracking Documentation Follow-Up Type: Phone Call Call Attempt: 1st Attempt Call Status: Complete Allergies As of Date: 02/04/2024 Noted Allergy Reaction TETRACYCLINE 09/27/2022 16 - Unknown 8 - GI Upset Januvia (SITAGLIPTIN) 06/24/2019 16 - Unknown MICONAZOLE 01/06/2024 9 - Itching 7 - Swelling ROSUVASTATIN 06/24/2019 16 - Unknown ALLERG XT,D.FARINAE-D.PTERONYS 07/19/2022 9 - Itching CAT HAIR STANDARDIZED ALLERGENIC *09/27/2022 9 - Itching Comments: sneezing HOUSE DUST 07/19/2022 9 - Itching Date Reviewed: 01/28/2024 Reviewed by: Cyndi Haynes LPN - Fully Assessed Prescriptions as of 02/04/2024 - oxybutynin (DITROPAN) 5 mg tablet two times a day. - trospium chloride (TROSPIUM ORAL) Take by mouth once daily. - rivaroxaban (XARELTO) 2.5 mg tablet Take 1 tablet by mouth two times a day. - lisinopril (ZESTRIL) 20 mg tablet Take 1 tablet by mouth once daily. - TRULICITY 0.75 mg/0.5 mL pen injector Inject 0.75 mg subcutaneously one time a week. Patient should start on August 23, 2023. - VENTOLIN HFA 90 mcg/actuation inhaler Inhale 2 Puffs as instructed every 6 hours as needed for wheezing/shortness of breath. - aspirin 81 mg chewable tablet Take 1 tablet by mouth once daily. - clopidogrel (PLAVIX) 75 mg tablet Take 1 tablet by mouth once daily. - ezetimibe (ZETIA) 10 mg tablet Take 1 tablet by mouth once daily. - venlafaxine ER (EFFEXOR XR) 75 mg 24 hr capsule Take 1 capsule by mouth once daily. - metoprolol succinate ER (TOPROL XL) 50 mg 24 hr tablet Take 0.5 tablets by mouth two times a day. - docusate sodium (COLACE) 100 mg capsule Take 1 capsule by mouth two times a day. - JARDIANCE 10 mg tablet Take 1 tablet by mouth once daily. - metFORMIN (GLUCOPHAGE) 1,000 mg tablet Take 1,000 mg by mouth two times a day. Problem List As Of Date 02/04/2024 Noted Resolved Morbid obesity (HCC) [E66.01] 05/13/2023 Atherosclerosis of [place] arteries of extremity*06/14/2023 Essential hypertension [I10] 06/14/2023 Type 2 diabetes mellitus without complication, *06/14/2023 CAD (coronary artery disease) [I25.10] 06/14/2023 Atherosclerosis of [place] arteries of left leg *06/18/2023 Atherosclerosis of [place] arteries of extremiti*07/02/2023 Coronary artery disease involving walk[place] pack*07/02/2023 Lung nodule [R91.1] 07/12/2023 Discharge planning issues [Z75.8] 07/17/2023 Pre-op testing [Z01.818] 07/17/2023 Carotid stenosis, asymptomatic, bilateral [I65.*07/29/2023 CAD, multiple vessel [I25.10] 07/29/2023 Encounter for support and coordination of trans*08/01/2023 Hyperlipidemia LDL goal <70 [E78.5] 08/01/2023 PVD (peripheral vascular disease) (HCC) [I73.9] 08/01/2023 ABLA (acute blood loss anemia) [D62] 08/01/2023 Thrombocytopenia ([facility]) [D69.6] 08/01/2023 Anxiety and depression [F41.9, F32.A] 08/01/2023 History of smoking [Z87.891] 08/01/2023 Primary hypertension [I10] 08/01/2023 Obesity, Class I, BMI 30-34.9 [E66.9] 08/01/2023 Hypo-osmolality and hyponatremia [E87.1] 08/02/2023 Encounter Status:Closed by HAYDEE FRIED on 02/04/24[facility]08-06-2024 NoteHNO ID: [id number] Author: PAPA SANTIAGO MD Service: ? Author Type: Physician Type: Progress Notes Filed: 01/28/2024 12:38 Note Text: Heart , Vascular and Thoracic [place] DEPARTMENT OF VASCULAR SURGERY OUTPATIENT VISIT DATE [...] spirits. 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 Cardiovascular: Normal S1 AND S2, no rubs, murmurs or gallops. No [...] patient is completely healed from a cardiac s (more content not included)...[facility]08-06-2024 History of Present illness Narrative* Papa Santiago MD - 01/28/2024 12:14 PM EDT Images from the original note were not included. Heart , Vascular [facility] Thoracic [place] DEPARTMENT OF VASCULAR SURGERY OUTPATIENT VISIT DATE [...] spirits. PAST MEDICAL HISTORY 06/14/2023: Atherosclerosis of [place] arteries of extremity with intermittent claudication ([facility]) 06/14/2023: CAD (coronary artery disease) No date: [...] No date: PAD (peripheral artery disease) ([facility]) No date: Visual impairment PAST SURGICAL HISTORY [...] 2024 TIME: 12:33 PM documented in this encounterPromedica Memorial Hospital07-25-2024 History of Present illness Narrative* Shanice Larsen MD - 01/16/2024 11:15 AM EDT Images from the original note were not included. Heart and Vascular [place] Arlette Goldstein Department of Cardiovascular Medicine SECTION OF CLINICAL CARDIOLOGY OUTPATIENT VISIT DATE January 16, 2024 OUTPATIENT VISIT TYPE ESTABLISHED PRIMARY CARE PHYSICIAN: Nano Nguyen [address] [place] [address] CHIEF COMPLAINT: Cv management HISTORY OF PRESENT [...] fatigued after surgery. Has completed about 5 weeksof cardiac rehab, able to tend to her garden now. Difficult for her to walk, due to leg pain, little circulation. She denies abdominal distention, chest pain, shortness of breath, orthopnea, cough, edema, palpitations, PND, lightheadedness or syncope. PAST CARDIAC HISTORY: SEE HPI PAST MEDICAL HISTORY Diagnosis Date Atherosclerosis of walk[place] arteries of extremity with intermittent claudication (HCC) [...] sweating, Frequent urination, Frequentthirst PHYSICAL EXAMINATION: BP 110/69 (BP Site: Left [...] INFORMATION: Shanice Larsen MD January 16, 2024 [address] [place] [address] Payton Attestation: By signing my name below, [...] 17, 2024 12:17 PM documented in this encounterPromedica Memorial Hospital07-25-2024 NoteHNO ID: [id number] Author: SHANICE LARSEN MD Service: ? 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) 06/14/2023 CAD (coronary artery disease) 06/14/2023 Carpal tunnel syndrome Cataract Coronary atherosclerosis Dental disease Depression Diabetes mellitus type 2 with peripheral artery disease (HCC) 06/14/2023 Essential hypertension 06/14/2023 Family hx-malignancy Former smoker Fractures Generalized anxiety disorder Hematoma HTN (hypertension) Injury of back Lung nodules Obesity PAD (peripheral artery disease) ([facility]) Visual impairment PAST SURGICAL HISTORY Procedure Laterality [...] loss SKIN: Negative for: Rashes, Itching HEMATOLOGICAL/LYMPHATIC: Nega (more content not included)...[facility]07-10-2024 Telephone encounter Note* Telephone Encounter - Elton Anderson - 01/01/2024 9:13 AM EDT Reason for call: Ms Quezada called and she would like to schedule an appointment with DR Qiana Neves and cell number [phone] DiagnosisAtherosclerosis of walker river arteries of extremities with rest pain, bilateral legs Kind Regards Elton [facility]07-10-2024 Miscellaneous Notes* Telephone Encounter - Elton Anderson - 01/01/2024 9:13 AM EDT Reason for call: Ms Quezada called and she would like to schedule an appointment with DR Santiago Lancaster and cell number [phone] DiagnosisAtherosclerosis of walker river arteries of extremities with rest pain, bilateral legs Kind Regards Elton documented in this encounterPromedica Memorial Hospital05-08-2024 History of Present illness Narrative* Anna Perea RN - 10/30/2023 12:22 PM EDT QOL Call Tracking Documentation Follow-Up Type: Phone Call Call Attempt: 1st Attempt Call Status: Patient will complete in MyChart documented in this encounterPromedica Memorial Hospital05-08-2024 Telephone encounter Note * Telephone Encounter - Mary Franks RN - 10/30/2023 8:20 AM EDT Attempted to call patient, no answer. Left voicemail asking patient to check mychart as I will sendthere. Mary Franks RN [facility]05-08-2024 Miscellaneous Notes* Telephone Encounter - Mary Franks RN - 10/30/2023 8:20 AM EDT Attempted to call patient, no answer. Left voicemail asking patient to check mychart as I will sendthere. Mary Franks RN * Telephone Encounter - Mary Franks RN - 10/29/2023 4:[address] larsen, yes can be on both. Suzie does not see a reason to separate but can separate days of the week if want. Can take motrin intermittently but not regular doses. * Telephone Encounter - Lizzeth Kong - 10/25/2023 10:43 AM EDT October 25, 2023 Patient Contact Number: [phone] (home) Patient last seen within the last [...] days. Yes Lizzeth Kong documented in this encounterPromedica Memorial Hospital05-07-2024 Telephone encounter Note * Telephone Encounter - Mary Franks RN - 10/29/2023 4:[address] larsen, yes can be on both. Suzie does not see a reason to separate but can separate days of the week if want. Can take motrin intermittently but not regular doses. [facility]-03-[facility] Telephone encounter Note* Telephone Encounter - Lizzeth Kong - 10/25/2023 10:43 AM EDT October 25, 2023 Patient Contact Number: [phone] (home) Patient last seen within the last [...] within the next three business days. Yes Lizzeht Kong [facility]05-02-2024 History of Present illness Narrative* Christel Fitch - 10/24/2023 2:09 PM EDT Follow Up Diagnosis: Lung Nodule Recommendation: CT Scan Follow up Date: 04/16/2024 Follow-Up Scheduled: Yes Pulmonary Follow-Up Type: Lung Nodule Surveillance Enrolled in Lung Nodule program: Yes Lung Nodule Program Location: [facility] documented in this encounterPromedica Memorial Hospital04-29-2024 Evaluation note* Diagnosis Lung nodule- Primary Solitary pulmonary nodule * Assessment & Plan Note - Randolph Reyes MD - 10/21/2023 4:07 PM EDTAssociated Problem(s): [...] smoking cessation documented in this encounter [facility] History of Present illness Narrative* Randolph Reyes MD - 10/21/2023 3:52 PM EDT Images from the original note were not included. [facility] INCIDENTAL LUNG NODULE PROGRAM ([facility] Follow-Up) Assessment / Plan 63 year old [...] time -encourage continued efforts with smoking cessation Randolph Reyes MD Follow Up Diagnosis: Lung Nodule Recommendation: CT Scan Follow up Date: 04/10/2024 Follow-Up Scheduled: No Pulmonary Follow-Up Type: Lung Nodule Surveillance Lung Nodule Program Location: [facility] Medical Decision Making: Problems: Low: Stable [...] visit. Either the patient or their legal wine sales representative has been informed of the [...] PAST MEDICAL HISTORY Diagnosis Date Atherosclerosis of walk[place] arteries of extremity with intermittent claudication (HCC) [...] DATE OF EXAM: Oct 10 2023 10:41AM [facility] 0541 - CT CHEST WO IVCON / [...] is normal in caliber. Moderate to severe walk[place] coronary artery atherosclerotic calcifications are present, however, [...] given small size. 4. No thoracic lymphadenopathy. Spinning Machine Tender: CHRISTOPHER Transcribe Date/Time: Oct 11 2023 9:48A Dictated by : ANDREA HOWARD MD This examination was interpreted and the report reviewed and electronically signed by: ANDREA HOWARD MD on Oct 11 2023 10:08AM EST Last Spirometry SPIROMETRY BASELINE ONLY Collected: 06/14/2023 12:04 PM (Final result) Narrative: [facility] [address] [place] [address] Test Date: 2023-06-14 Pat Name: ELIZABETH QUEZADA Department: Room: Gender: Female Supervisor Type Photography: : 1960 Requested By: Order Number: [id number] Reading MD: Stephanie Jain MD Interpretive Statements [...] 0:29:16 EST by Stephanie Jain MD ID: [id number] Name: ELIZABETH QUEZADA Race: White Ht: 63.78 [...] 2.82 FEF50/FIF50 0.58 90-100 FIVC (L) 2.34 RMB38-04 (L/sec) 1.08 0.99 2.04 3.49 53 Time [...] placed at the beginning of this note. Randolph Reyes MD Pulmonary & Critical Care Medicine [facility] [place] October 21, 2023 3:55 PM documented in this encounterPromedica [facility] Hospital04-26-[facility]24 Telephone encounter Note * Telephone Encounter - Shanta Shook RN - 10/18/2023 2:12 PM EDT Ambulatory Pharmacy Prior Authorization Note Provider Intervention Required?: No- Pharmacy completed on your behalf. Rx Plan: [facility]: Repatha SureClick 140MG/ML auto-injectors Cover My Meds Aguayo: [id number] Determination: Approved Prior Authorization/Case #: n/a Prior [...] relating to this submission, please contact [facility] at [phone] [facility] Work Phone: 1(704) 820-163004-26-2024 Miscellaneous Notes* Telephone Encounter - Shanta Shook RN - 10/18/2023 2:12 PM EDT Ambulatory Pharmacy Prior Authorization Note Provider Intervention Required?: No- Pharmacy completed on your behalf. Rx Plan: [facility]: Repatha SureClick 140MG/ML auto-injectors Cover My Meds Aguayo: [id number] Determination: Approved Prior Authorization/Case #: n/a Prior [...] relating to this submission, please contact [facility] at [phone] documented in this encounterPromedica Memorial Hospital04-25-2024 Telephone encounter Note * Telephone Encounter - Lizzeth Kong - 10/17/2023 2:12 PM EDT ADMIN UPLOADED OUTSIDE CARDIAC IMAGES TO [facility] CTA HEAD/NECK CT ANGIO HEAD CT ANGIO NECK CA ECHO DOPPLER Lizzeth Kong October 17, 2023 2:16 PM [facility]04-25-2024 Miscellaneous Notes* Telephone Encounter - Lizzeth Kong - 10/17/2023 2:12 PM EDT ADMIN UPLOADED OUTSIDE CARDIAC IMAGES TO [facility] CTA HEAD/NECK CT ANGIO HEAD CT ANGIO NECK CA ECHO DOPPLER Lizzeth Kong October 17, 2023 2:16 PM documented in this encounterPromedica Memorial Hospital04-25-2024 Telephone encounter Note * Telephone Encounter - Lizzeth Kong - 10/17/2023 1:36 PM EDT ADMIN UPLOADED OUTSIDE CARDIAC RECORDS TO [facility] ECHO REPORT Lizzeth Kong October 17, 2023 1:37 PM [facility]04-25-2024 Miscellaneous Notes* Telephone Encounter - Lizzeth Kong - 10/17/2023 1:36 PM EDT ADMIN UPLOADED OUTSIDE CARDIAC RECORDS TO [facility] ECHO REPORT Lizzeth Kong October 17, 2023 1:37 PM documented in this encounterPromedica Memorial Hospital04-18-2024 History of Present illness Narrative* Shanice Larsen MD - 10/10/2023 12:30 PM EDT Images from the original note were not included. 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) 06/14/2023 CAD (coronary artery disease) 06/14/2023 Carpal tunnel syndrome Cataract Coronary atherosclerosis Dental disease Depression Diabetes mellitus type 2 with peripheral artery disease (HCC) 06/14/2023 Essential hypertension 06/14/2023 Family hx-malignancy Former smoker Fractures Generalized anxiety disorder Hematoma HTN (hypertension) Injury of back Lung nodules Obesity PAD (peripheral artery disease) (FORMERLY [facility]) Visual impairment PAST SURGICAL HISTORY Procedure Laterality [...] INFORMATION: Shanice Larsen MD October 10, [id number] [id number] Scribe Attestation: By signing my name below, Aidan Hillman, attest that this documentation has been prepared under the direction and in the presence of Shanice Larsen MD. Electronically Signed:payton Leos, October 10, 2023 8:06 AM Provider Attestation: Shanice Hillman MD, personally [...] 2023 6:00 PM documented in this encounterPromedica Memorial Hospital04-18-2024 History of Present illness Narrative* Yojana [...] PATIENT PRESENTS WITH AN IMPLANTABLE OR ATTACHED HAIR SAMPLE MATCHER: No RADIOLOGY DEPARTMENT: CT; Exam(s) Completed: Chest PERIPHERAL IV DATA: Not applicable SIGNED BY: RT Sepideh(R) October 10, 2023 10:36 AM documented in this encounterPromedica Memorial Hospital04-01-2024 Miscellaneous Notes* Telephone Encounter - Anna Segundo - 09/23/2023 11:34 AM EDT Yeimy from [facility] - Dr. Luciano called and wanted to know how long should it be for the patient to be cleared after surgery for the patient to get her teeth cleaned. It's been 8 weeks and she thought it would be longer than that. Yeimy can be reached at [phone] documented in this encounterPromedica Memorial Hospital03-12-2024 History of Present illness Narrative* Anna Perea RN - 09/03/2023 12:14 PM EDT QOL Call Tracking Documentation Follow-Up Type: Phone Call Call Attempt: 1st Attempt Call Status: Patient will complete in MyChart documented in this encounterPromedica Memorial Hospital03-01-2024 Miscellaneous Notes* Telephone Encounter - Dot Stern - 08/23/2023 9:07 AM EST Reason for call: Pt called and she would like to reschedule her appt on 02 september to . Home and cell number: [phone] Diagnosis: HOSP FOLLOW UP-DISCUSS TIMING OF LOVE FEM ENDARTS NO TESTING NEEDED Kind Regards, Dot Leena documented in this encounterPromedica Memorial Hospital02-15-2024 Miscellaneous Notes* Telephone Encounter - Moriah [...] Moriah Morris RN documented in this encounterPromedica Memorial Hospital02-14-2024 Instructions* Patient Instructions* Dania Cruz APRN.CNP - 08/07/2023 11:10 AM EST Follow up with PCP next week with repeat cbc and cmp to monitor trends. Follow up with [facility] in 4-6 weeks with consideration of repeat echo. No further refills unless specified by local providers. documented in this encounterPromedica Memorial Hospital02-14-2024 History of Present illness Narrative* Dania Cruz APRN.CNP - 08/07/2023 10:30 AM EST Images from the original note were not included. [facility] [place] Arlette Goldstein Department of Cardiovascular Medicine DEPARTMENT [...] PAST MEDICAL HISTORY Diagnosis Date Atherosclerosis of [place] arteries of extremity with intermittent claudication (HCC) 06/14/2023 CAD (coronary artery disease) 06/14/2023 Carpal tunnel syndrome Cataract Coronary atherosclerosis Dental disease Depression Diabetes mellitus type 2 with peripheral artery disease (HCC) 06/14/2023 Essential hypertension 06/14/2023 Family hx-malignancy Former smoker Fractures Generalized anxiety disorder Hematoma HTN (hypertension) Injury of back Lung nodules Obesity PAD (peripheral artery disease) (FORM[facility]LY [facility]) Visual impairment PAST SURGICAL HISTORY Procedure Laterality [...] clean, dry and intact Wound: NA SV [place] sites: Location: Right LE, mid, distal, and ankle, healing, and clean, dry and intact with shelby. Edematous noted. Procedures: every other [place] removed from saphenous vein sites without difficulty. Sutures removed from chest tube sites without difficulty. HHC to remove remaining stable IMPRESSION & PLAN: [...] cmp to monitor trends Follow up with [facility] in 4-6 weeks. May need more diuresing [...] prophylaxis reviewed Discussed wound care Dania Cruz APRN.DEHYDRATION UNIT OPERATOR documented in this encounterPromedica Memorial Hospital02-14-2024 History of Present illness Narrative* Shannan [...] PATIENT PRESENTS WITH AN IMPLANTABLE OR ATTACHED HAIR SAMPLE MATCHER: No RADIOLOGY DEPARTMENT: General X-ray: Exam(s) Completed: Chest X-Ray PERIPHERAL IV DATA: Not applicable SIGNED BY: RT Enrike(R) August 07, 2023 10:07 AM documented in this encounterPromedica Memorial Hospital02-13-2024 Miscellaneous Notes* Telephone Encounter - Kevin [...] Kevin Reardon RN documented in this encounterPromedica Memorial Hospital12-11-2023 Miscellaneous Notes* Telephone Encounter - Robbin Sanford 06/03/2023 4:34 PM EST CALLED AND CONFIRMED APPTS W/MRS. QUEZADA VIA PHONE MAILED REMINDER FED EX NEXT DAY 06-03-23 AW #[id number] * Telephone Encounter - Ghazala Malave RN - 05/30/2023 10:08 AM EST eval only [facility] vascular surgery, testing, Dr. Suarez *Please call with date internal referral diagnosis: CAD history: PAD s/p iliac stents November 2022, current smoker, DM2, HTN blood thinners: asa 81, plavix, xarelto, trulicity, jardiance, ibuprofen documented in this encounterPromedica Memorial Hospital12-07-2023 Miscellaneous Notes* Telephone Encounter - Radha Brady - 05/30/2023 10:38 AM EST IN documented in this encounterPromedica Memorial Hospital12-05-2023 History of Present illness Narrative* Shanice Larsen MD - 05/28/2023 1:37 PM EST Images from the original note were not included. [facility] [place] Arlette Goldstein Department of Cardiovascular Medicine SECTION OF CLINICAL CARDIOLOGY OUTPATIENT VISIT DATE May 28, 2023 OUTPATIENT VISIT TYPE ESTABLISHED PRIMARY CARE PHYSICIAN: To use this Smartlink, specify the provider ID whose address you want to display, e.g., .PROVADDR[1(where 1 is the provider ID). REFERRING PHYSICIAN: Shanice Larsen [address] [facility] [id number] CHIEF COMPLAINT: Shortness of breath HISTORY OF PRESENT ILLNESS: Ms. Quezada is a 63 year old female who presents today for a cardiovascular medicine follow-up visit. I last saw her in Mar . She was having severe nausea and vomiting at the time. She was worked up by her treating plant operator and no cause was found. She [...] MD CONTACT INFORMATION: documented in this encounterPromedica Memorial Hospital11-20-2023 History of Present illness Narrative* Shanice Larsen MD - 05/13/2023 3:10 PM EST [facility] [place] Department of Cardiovascular Medicine VIRTUAL VIDEO VISIT [...] visit. Either the patient or their legal wine sales representative has been informed of the [...] 2023 3:10 PM documented in this encounterPromedica Memorial Hospital11-03-2023 History of Present illness Narrative* Shanice [...] risk-Shanice Larsen MD documented in this encounterPromedica Memorial Hospital10-11-2023 Instructions* Patient Instructions* Serena Smith - 04/03/2023 9:34 AM EDT Complete blood work today Complete Echo documented in this encounterPromedica Memorial Hospital10-11-2023 History of Present illness Narrative* Shanice Larsen MD - 04/03/2023 7:45 AM EDT Images from the original note were not included. [facility] [place] Arlette Goldstein Department of Cardiovascular Medicine SECTION [...] is a 63 year old female from [place], [place] here today for cardiovascular evaluation related [...] 2023 10:10 AM documented in this encounterPromedica Memorial Hospital10-03-2023 Hospital Discharge instructions Additional Instructions DISCHARGE INSTRUCTIONS FOR CARDIAC PEARL TECHNICIAN PHONE NUMBER OF YOUR PHYSICIAN: [phone] PROCEDURE: Heart Cath The following instructions have [...] cold, numb, blue or white, call the [facility] immediately. 4. ACTIVITY: You are advised to [...] bottle, follow the instructions on the bottle. [facility] is not responsible for incorrect prescription information provided by the patient during their visit. Do not stop your medications without consulting your health care provider. Please take the list with you to your next doctor's appointment.[facility] Work Phone: 1(774) 230-497709-27-2023 Evaluation note* Encounter Date Diagnosis Assessment Notes Treatment Notes Treatment Clinical Notes Feb, Shortness of breath (ICD-10 - R06.02) Feb, Abnormal stress test (ICD-10 - R94.39) 63-year-old female with past medical history significant for peripheral vascular disease status post bilateral iliac kissing stents with now worsening intermittent claudication. She is planned for an aortobifemoral bypass surgery at [facility] on March 29, 2023 and presents for [...] Hyperlipidemia, unspecified hyperlipidemia type (ICD-10 - E78.5) [facility] [employer] Other [id number] NotePROCEDURE: XR FOOT RT MIN 3 VIEWS [...] Electronically authenticated by: NISA EDWARDS Date: 2022-05-10 13:23[facility] complaint Narrative - Aibodun QUEZADA is being seen for a consultation for dizziness, fatigue and palpitations.-[facility]- Jacqui 250 DO Work Phone: Evaluation noteNo assessment information [facility] Work Phone: evaluqzeag noteNo InformationNortHoly Redeemer [facility] System [employer] Other evaluitpps note* Diagnosis Abnormal stress test- Primary Other nonspecific abnormal cardiovascular system function study documented in this encounter [facility] note* Diagnosis Abnormal stress test- Primary Other nonspecific abnormal cardiovascular system function study documented in this encounter [facility] note* Diagnosis Coronary artery disease involving [place] coronary artery without angina pectoris, unspecified whether walk[place] river or transplanted heart- Primary documented in this encounter [facility] note* Diagnosis Coronary artery disease involving [place] coronary artery of [place] heart without angina pectoris- Primary Preop cardiovascular exam Pre-operative cardiovascular examination Morbid obesity (HCC) Morbid obesity documented in this encounter [facility] note* Diagnosis SOB (shortness of breath)- Primary Shortness of breath Coronary artery disease involving [place] coronary artery of [place] heart without angina pectoris PAD (peripheral artery disease) (HCC) Peripheral vascular disease, unspecified [facility] Diagnosis Coronary artery disease involving [place] coronary artery of [place] heart with angina pectoris (HCC)- Primary PAD (peripheral artery disease) (HCC) Peripheral vascular disease, unspecified S/P insertion of iliac artery stent Other postprocedural status Current smoker Tobacco use disorder Primary hypertension Unspecified essential hypertension Coronary angioplasty status Postsurgical percutaneous transluminal coronary angioplasty status [facility]* Diagnosis Surgery follow-up- Primary Follow-up examination, following unspecified surgery [facility] Diagnosis S/P CABG (coronary artery bypass graft)- Primary Postsurgical aortocoronary bypass status PVD (peripheral vascular disease) ([facility]LY [facility]) Peripheral vascular disease, unspecified [facility]* Diagnosis Surgery follow-up Follow-up examination, following unspecified surgery [facility]* Diagnosis Abnormal finding of diagnostic imaging- Primary Other nonspecific (abnormal) findings on radiological and other examinations of body structure [facility]* Diagnosis Coronary artery disease involving walk[place] coronary artery of [place] heart without angina pectoris- Primary [facility]* Diagnosis Lung nodule Solitary pulmonary nodule [facility]* Diagnosis 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)- Primary SOB (shortness of breath) Shortness of breath PAD (peripheral artery disease) ([facility]) Peripheral vascular disease, unspecified TIA (transient ischemic attack) Unspecified transient cerebral ischemia [facility]* Diagnosis Atherosclerosis of [place] arteries of extremities with rest pain, bilateral legs (HCC)- Primary [facility]* Diagnosis 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)- Primary PAD (peripheral artery disease) ([facility]) Peripheral vascular disease, unspecified Primary hypertension Unspecified essential hypertension Hyperlipidemia, unspecified hyperlipidemia type [facility]* Diagnosis Atherosclerosis of [place] artery of both lower extremities with intermittent claudication (HCC)- Primary Atherosclerosis of [place] arteries of the extremities with intermittent claudication [facility]* Diagnosis Lung nodule- Primary Solitary pulmonary nodule Lung nodule- Primary Solitary pulmonary nodule 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) PAD (peripheral artery disease) (HCC) Peripheral vascular disease, unspecified Primary hypertension Unspecified essential hypertension Hyperlipidemia, unspecified hyperlipidemia type documented in this encounter [facility]* Diagnosis Lung nodule- Primary Solitary pulmonary nodule Lung nodule- Primary Solitary pulmonary nodule Pathological fracture of sternum with malunion- Primary 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) [facility] encounter [facility]* Diagnosis Lung nodule- Primary Solitary pulmonary nodule Lung nodule- Primary Solitary pulmonary nodule Peripheral vascular disease (HCC)- Primary Peripheral vascular disease, unspecified Diminished pulses in lower extremity Other symptoms involving cardiovascular system PAD (peripheral artery disease) (HCC) Peripheral vascular disease, unspecified documented in this encounter [facility]* Diagnosis Lung nodule- Primary Solitary pulmonary nodule Lung nodule- Primary Solitary pulmonary nodule Atherosclerosis of [place] artery of both lower extremities with intermittent claudication (HCC)- Primary Atherosclerosis of [place] arteries of the extremities with intermittent claudication documented in this encounter [facility]* Diagnosis Lung nodule- Primary Solitary pulmonary nodule Lung nodule- Primary Solitary pulmonary nodule Adverse effect of treatment, initial encounter Chest wall pain following surgery Acute post-thoracotomy pain documented [facility] encounter [facility]* Diagnosis Lung nodule- Primary Solitary pulmonary nodule Lung nodule- Primary Solitary pulmonary nodule Chest wall pain following surgery- Primary Acute post-thoracotomy pain S/P CABG (coronary artery bypass graft) Postsurgical aortocoronary bypass status Adverse effect of treatment, initial encounter Chest wall pain following surgery Acute post-thoracotomy pain documented [facility] encounter [facility]* Diagnosis Mild nonproliferative diabetic retinopathy of both eyes without macular edema associated with type 2 diabetes mellitus (HCC)- Primary PCO (posterior capsular opacification), bilateral Unspecified after-cataract Pseudophakia Lens replaced by other means documented in this encounter [facility] HealthcareHistory general Narrative - Reported* Type Description Date Medical History aortic stenosis Medical History diabetes type 2 Medical History blood clot Medical History hypertension Medical History hyperlipidemia Medical History peripheral vascular disease Surgical History carpal tunnel Surgical History trigger finger Surgical History tubal ligation Surgical History bilateral kissing stents Surgical History left thigh evacuation hematoma Hospitalization History blood clot after cardiac stents [employer] Other History of Present illness Narrative* Patient [...] change and see us henceforth as needed. [facility] 250 DO Work Phone: Hospital Discharge instructions Additional Instructions Home Health: [facility] wound vac continuous 125mmHg Change every Saturday, , Saturday and [facility] Work Phone: Reason for referral (narrative)* Outpatient Procedure (Routine) - Authorized Specialty Diagnoses / Procedures Referred By Contac t Referred To [facility] Diagnoses Abnormal stress test Procedures ECHO ECHO TTHRC R-T 2D W/WOM-MODE COMPL SPEC&COLR D Shanice Larsen MD [address] [place] [address] [facility] [place] [address] [place] [address] Referral ID Status Reason Start Date Expiration Date Visits Requested Visits Authorized [id number] Authorized Auto-Generat ed Referral 3 04/02/2024 1 1 [facility] for referral (narrative)* Outpatient Procedure (Routine) - Authorized Specialty Diagnoses / Procedures Referred By Contac t Referred To Contact [facility] Diagnoses Abnormal stress test Procedures ECG COMPLETE ECG ROUTINE ECG W/LEAST 12 LDS W/I&R Pamela Laws APRN.CNP [address] [id number] [place] [address] Referral ID Status Reason Start Date Expiration Date Visits Requested Visits Authorized [id number] Authorized Auto-Generat ed Referral 3 04/07/2024 1 1 [facility] for referral (narrative)* Outpatient Procedure (Routine) - Authorized Specialty Diagnoses / Procedures [facility] Diagnoses Coronary artery disease involving [place] coronary artery of [place] heart with angina pectoris (HCC) PAD (peripheral artery disease) (HCC) S/P insertion of iliac artery stent Current smoker Primary hypertension Coronary angioplasty status Procedures US RADIAL ARTERY MAP LOVE VAS LAB DUP-SCAN UXTR ART/ARTL BPGS COMPL BI STUDY Willem Suarez MD [address] [place] [address] [place] [address] Referral ID Status Reason Start Date Expiration Date Visits Requested Visits Authorized [id number] Authorized Auto-Generat ed Referral 3 06/02/2024 1 1 * Outpatient Procedure (Routine) - Authorized Specialty Diagnoses / Procedures Referred By Contac t Referred To Contact [facility] Diagnoses Coronary artery disease involving [place] coronary artery of [place] heart with angina pectoris (HCC) PAD (peripheral artery disease) (HCC) S/P insertion of iliac artery stent Current smoker Primary hypertension Coronary angioplasty status Procedures LUNG DIFFUSION CAPACITY (DLCO) DIFFUSING CAPACITY Willem Suarez MD [address] [id number] Respiratory [address] [address] Referral ID Status Reason Start Date Expiration Date Visits Requested Visits Authorized [id number] Authorized Auto-Generat ed Referral 3 07/02/2024 1 1 * Outpatient Procedure (Routine) - Authorized Specialty Diagnoses / Procedures Referred By Contac t Referred To Contact [facility] Diagnoses Coronary artery disease involving [place] coronary artery of [place] heart with angina pectoris (HCC) PAD (peripheral artery disease) (HCC) S/P insertion of iliac artery stent Current smoker Primary hypertension Coronary angioplasty status Procedures SPIROMETRY BASELINE ONLY SPMTRY W/VC EXPIRATORY CHERYL W/WO MXML VOL VNTJ Willem Suarez MD [address] [place] [address] [address] [address] Referral ID Status Reason Start Date Expiration Date Visits Requested Visits Authorized [id number] Authorized Auto-Generat ed Referral 3 07/02/2024 1 1 * Outpatient Procedure (Routine) - Authorized Specialty Diagnoses / Procedures [facility] Diagnoses Coronary artery disease involving [place] coronary artery of [place] heart with angina pectoris (HCC) PAD (peripheral artery disease) (HCC) S/P insertion of iliac artery stent Current smoker Primary hypertension Coronary angioplasty status Procedures US MAMMARY ARTERY LOVE VAS LAB DUP-SCAN UXTR ART/ARTL BPGS COMPL BI STUDY Willem Suarez MD [address] [place] [address] [facility] Vascular [address] [address] Referral ID Status Reason Start Date Expiration Date Visits Requested Visits Authorized [id number] Authorized Auto-Generat ed Referral 3 06/02/2024 1 1 * Outpatient Procedure (Routine) - Authorized Specialty Diagnoses / Procedures Referred By Catherine michel Referred To Contact [facility] Diagnoses Coronary artery disease involving walk[place] coronary artery of [place] heart with angina pectoris (HCC) PAD (peripheral artery disease) (HCC) S/P insertion of iliac artery stent Current smoker Primary hypertension Coronary angioplasty status Procedures US LEG VEIN MAP LOVE VAS LAB DUP-SCAN XTR VEINS COMPLETE BILATERAL STUDY Willem Suarez MD [address] [place] [address] [facility] Vascular [address] [address] Referral ID Status Reason Start Date Expiration Date Visits Requested Visits Authorized [id number] Authorized Auto-Generat ed Referral 3 06/02/2024 1 1 * Outpatient Procedure (Routine) - Authorized Specialty Diagnoses / Procedures Referred By Catherine michel Referred To Contact [facility] Diagnoses Coronary artery disease involving walk[place] coronary artery of [place] heart with angina pectoris (HCC) PAD (peripheral artery disease) ([facility]) S/P insertion of iliac artery stent Current smoker Primary hypertension Coronary angioplasty status Procedures US CAROTID ARTERIES LOVE VAS LAB DUPLEX SCAN EXTRACRANIAL ART COMPL BI STUDY Willem Suarez MD [address] [place] [address] [address] Referral ID Status Reason Start Date Expiration Date Visits Requested Visits Authorized [id number] Authorized Auto-Generat ed Referral 3 06/23/2023 1 1 * MRI/CT (Routine) - Authorized Specialty Diagnoses / Procedures Referred By Catherine michel Referred To Contact CT IMAGING Diagnoses Coronary artery disease involving walk[place] coronary artery of [place] heart with angina pectoris (HCC) PAD (peripheral artery disease) (HCC) S/P insertion of iliac artery stent Current smoker Primary hypertension Coronary angioplasty status Procedures CT CHEST CARDIAC WO IVCON DIAGNOSTIC COMPUTED TOMOGRAPHY THORAX W/O CNTRST Willem Suarez MD [address] [place] [address] Ct Imaging [place] [address] Referral ID Status Reason Start Date Expiration Date Visits Requested Visits Authorized [id number] Authorized Auto-Generat ed Referral 3 07/02/2024 1 1 * Consult, Test, Treat (Routine) - Authorized Specialty Diagnoses / Procedures Referred By Catherine t Referred To Contact Vascular Surgery Diagnoses Coronary artery disease involving walk[place] coronary artery of [place] heart with angina pectoris (HCC) PAD (peripheral artery disease) (HCC) S/P insertion of iliac artery stent Current smoker Primary hypertension Coronary angioplasty status Procedures CONSULT TO VASCULAR SURGERY OFFICE/OUTPATIENT [facility] 60-74 MINUTES Willem Suarez MD [address] [place] [address] Referral ID Status Reason Start Date Expiration Date Visits Requested Visits Authorized [id number] Authorized PCP Requested Referral 3 06/02/2024 1 1 * Consult, Test, Treat (Routine) - Authorized Specialty Diagnoses / Procedures Referred By Catherine michel Referred To Contact Cardiac Surg Diagnoses Coronary artery disease involving walk[place] coronary artery of [place] heart with angina pectoris (HCC) PAD (peripheral artery disease) (HCC) S/P insertion of iliac artery stent Current smoker Primary hypertension Coronary angioplasty status Procedures CARDIOTHORACIC PREOP EVALUATION OFFICE/OUTPATIENT [facility] 60-74 MINUTES Willem Suarez MD [address] [place] [phone] Referral ID Status Reason Start Date Expiration Date Visits Requested Visits Authorized [id number] Authorized PCP Requested Referral 3 06/02/2024 1 1 [facility] for referral (narrative)* Outpatient Procedure (Routine) - Pending Review Specialty Diagnoses / Procedures Referred By Catherine michel [facility] Diagnoses Surgery follow-up Procedures ECG COMPLETE ECG ROUTINE ECG W/LEAST 12 LDS W/I&R Willem Suarez MD [address] [place] [address] [facility] Vascular [address] [address] Referral ID Status Reason Start Date Expiration Date Visits Requested Visits Authorized [id number] Pending Review Auto-Generat ed Referral 08/01/2023 07/31/2024 1 1 [facility] for referral (narrative)* Outpatient Procedure (Routine) - Pending Review Specialty Diagnoses / Procedures Referred By Contac t Referred To Contact [facility] Diagnoses 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) SOB (shortness of breath) PAD (peripheral artery disease) (HCC) TIA (transient ischemic attack) Procedures ECG COMPLETE ECG ROUTINE ECG W/LEAST 12 LDS W/I&R Shanice Larsen MD [address] [place] [address] [facility] Vascular [address] [address] Referral ID Status Reason Start Date Expiration Date Visits Requested Visits Authorized [id number] Pending Review Auto-Generat ed Referral 10/10/2023 10/09/2024 1 1 * Transition of Care (Routine) - Ref Not Required Specialty Diagnoses / Procedures Referred By Contac t Referred To Contact [facility] Diagnoses 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) SOB (shortness of breath) PAD (peripheral artery disease) (HCC) TIA (transient ischemic attack) Procedures CARDIOVASCULAR MEDICINE OP FOLLOW UP APPT Shanice Henry MD [address] [place] [address] [facility] Vascular [address] [address] Referral ID Status Reason Start Date Expiration Date Visits Requested Visits Authorized [id number] Ref Not Required PCP Requested Referral 01/09/2024 10/09/2024 1 1 [facility] for referral (narrative)* Outpatient Procedure (Routine) - Pending Review Specialty Diagnoses / Procedures Referred By Contac t Referred To [facility] Diagnoses Atherosclerosis of [place] arteries of extremities with rest pain, bilateral legs (HCC) Procedures PVR LEG LOVE VAS LAB NON-INVASIVE PHYSIOLOGIC STUDY EXTREMITY 3 Papa Hernandez MD [id number] [place] [address] Referral ID Status Reason Start Date Expiration Date Visits Requested Visits Authorized [id number] Pending Review Auto-Generat ed Referral 01/03/2024 01/02/2025 1 1 [facility] for referral (narrative)* Outpatient Procedure (Routine) - New Request Specialty Diagnoses / Procedures Referred By Contac t Referred To [facility] Diagnoses 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) Procedures ECG COMPLETE ECG ROUTINE ECG W/LEAST 12 LDS W/I&R Shanice Larsen MD [address] [place] [address] [address] Referral ID Status Reason Start Date Expiration Date Visits Requested Visits Authorized [id number] New Request Auto-Generat ed Referral 04/08/2025 1 1 * Transition of Care (Routine) - Ref Not Required Specialty Diagnoses / Procedures Referred By Contac t Referred To [facility] Procedures CARDIOVASCULAR MEDICINE OP FOLLOW UP APPT ORDER Shanice Larsen MD [address] [place] [address] [address] Referral ID Status Reason Start Date Expiration Date Visits Requested Visits Authorized [id number] Ref Not Required PCP Requested Referral 10/07/2024 04/08/2025 1 1 [facility] for visit Narrative* MRI/CT (Routine) - Closed Specialty Diagnoses / Procedures Referred By Contac t Referred To Contact CT IMAGING Diagnoses Adverse effect of treatment, initial encounter Chest wall pain following surgery Procedures CT CHEST WO IVCON DIAGNOSTIC COMPUTED TOMOGRAPHY THORAX W/O CNTRST Dania Cruz, NEWS PRODUCTION ASSISTANT.DEHYDRATION UNIT OPERATOR [address] [place] [address] Phone: tel: fax: CT IMAGING [place] [address] Referral ID Status Reason Start Date Expiration Date V isits Requested Visits Authorized [id number] Closed Auto-Generate d Referral 09/17/2024 06/23/2025 1 1 [facility] Summary Purpose Family History No Family [...] Unknown brother Malignant neoplasm of lung Unknown Relationship Condition Age at Onset Recorded Date/T bradley father Hypertension Unknown mother Hypertension Unknown Disorder of kidney Unknown brother Malignant neoplasm of lung Unknown brother Unknown father Unknown Heart disease Unknown mother Heart disease Unknown Unknown sister Unknown Relationship Condition Age at Onset Recorded Date/T bradley father Hypertension Unknown Unknown Heart disease Unknown Peripheral arterial disease Unknown mother Disorder of kidney Unknown Hypertension Unknown Myocardial infarction Unknown brother Malignant neoplasm of lung Unknown brother Mesothelioma Unknown sister Unknown History of alcohol abuse Unknown sister Neoplasm of brain Unknown Relationship Condition Age at Onset Recorded Date/T bradley father Heart disease Unknown Peripheral arterial disease Unknown Hypertension Unknown mother Disorder of kidney Unknown Heart disease Unknown Myocardial infarction Unknown brother Malignant neoplasm of lung Unknown brother Mesothelioma Unknown sister History of alcohol abuse Unknown sister Neoplasm of brain Unknown Advance Directives No Advanced Directives Records Found Advance Directive Response Recorded Date/ Time Advance Directives No February 2:51pm Documents on File Type Date Recorded 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 Advance Directive(s) 07/17/2023 1:14 PM Documents on File Type Date Recorded 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 Advance Directive(s) 07/17/2023 1:14 PM Chief Complaint and Reason for Visit Chief Complaint Abnormal Stress Test Chief Complaint Abnormal Stress Test Abnormal Stress Test Chief Complaint Admit Date ref by Anna Joseph for PVD, DVT Apri l 2024 2:03pm Chief Complaint Admit Date ref by Anna Joseph for PVD, DVT Apri l 2024 2:03pm pad w/claudication October 06, 2024 2:1 0pm Chief Complaint Admit Date ref by Anna Joseph for PVD, DVT Apri l 2024 2:03pm pad w/claudication October 06, 2024 2:1 0pm pad w/claudication October 19, 2024 7:2 0am pad w/claudication October 19, 2024 3:3 6pm F/U FEM-FEM ENDART 10/19/24 November 05 9:25am Reason for Visit Admit Date Peripheral vascular disease October 19, 2024 7:20am Chief Complaint Admit Date ref by Anna Joseph for PVD, DVT Apri l 2024 2:03pm pad w/claudication October 06, 2024 2:1 0pm pad w/claudication October 19, 2024 7:2 0am pad w/claudication October 19, 2024 3:3 6pm F/U FEM-FEM ENDART 10/19/24 November 05 9:25am T14.8XXA November 05, 2024 10:20 am 2 wk wound check November 12, 2024 9:15a m Reason for Visit Admit Date Peripheral vascular disease October 19, 2024 7:20am Encounter for surgical after care following surgery of circulatory system November 05, 2024 9:25am Peripheral arterial disease November 05 9:25am Right foot ulcer November 05, 2024 9:25a m Wound dehiscence November 05, 2024 9:25a m Chief Complaint Admit Date ref by Anna Joseph for PVD, DVT Apri l 2024 2:03pm pad w/claudication October 06, 2024 2:1 0pm pad w/claudication October 19, 2024 7:2 0am pad w/claudication October 19, 2024 3:3 6pm F/U FEM-FEM ENDART 10/19/24 November 05 9:25am T14.8XXA November 05, 2024 10:20 am 2 wk wound check November 12, 2024 9:15a m Right Groin Postop Wound Infection Dehis cence November 13, 2024 7:05am Right Groin Postop Wound Infection Dehis cence November 13, 2024 10:39am Reason for Visit Admit Date Peripheral vascular disease October 19, 2024 7:20am Encounter for surgical after care following surgery of circulatory system November 05, 2024 9:25am Peripheral arterial disease November 05 9:25am Right foot ulcer November 05, 2024 9:25a m Wound dehiscence November 05, 2024 9:25a m Wound dehiscence November 12, 2024 9:15a m Chief Complaint Admit Date ref by Anna Joseph for PVD, DVT Apri l 2024 2:03pm pad w/claudication October 06, 2024 2:1 0pm pad w/claudication October 19, 2024 7:2 0am pad w/claudication October 19, 2024 3:3 6pm F/U FEM-FEM ENDART 10/19/24 November 05 9:25am T14.8XXA November 05, 2024 10:20 am 2 wk wound check November 12, 2024 9:15a m Right Groin Postop Wound Infection Dehis cence November 13, 2024 7:05am Right Groin Postop Wound Infection Dehis cence November 13, 2024 10:39am f/u to I&D wound vac placement November 11:08am 2 WK WOUND CHECK December 23, 2024 9:02a m Reason for Visit Admit Date Peripheral vascular disease October 19, 2024 7:20am Encounter for surgical after care following surgery of circulatory system November 05, 2024 9:25am Peripheral arterial disease November 05 9:25am Right foot ulcer November 05, 2024 9:25a m Wound dehiscence November 05, 2024 9:25a m Wound dehiscence November 12, 2024 9:15a m Wound dehiscence December 03, 2024 11:0 8am Reason for Referral Specialty Diagnoses / Procedures Referred By Contac t Referred To Contact CT IMAGING Diagnoses Peripheral vascular disease (HCC) Diminished pulses in lower extremity PAD (peripheral artery disease) (HCC) Procedures CTA ABD/PEL LOWER EXTREM WO/W IVCON CTA ABDL AORTA&BI ILIOFEM W/CONTRAST&POSTP Papa Santiago MD [address] [place] [address] Ct Imaging [place] [address] Referral ID Status Reason Start Date Expiration Date Visits Requested Visits Authorized [id number] Pending Review Auto-Generat ed Referral 04/28/2024 05/28/2025 1 1 Specialty Diagnoses / Procedures [facility] To Contact [facility] Diagnoses Peripheral vascular disease (HCC) Diminished pulses in lower extremity PAD (peripheral artery disease) (HCC) Procedures PVR ANK PRESS LOVE VAS LAB NON-INVAS PHYSIOLOGIC STD EXTREMITY ART 2 LEVEL Papa Santiago MD [address] [place] [address] [facility] Vascular [place] [id number] [address] Referral ID Status Reason Start Date Expiration Date Visits Requested Visits Authorized [id number] Pending Review Auto-Generat ed Referral 04/28/2024 04/28/2025 1 1 Specialty Diagnoses / Procedures Referred By Contac t Referred To Contact CT IMAGING Diagnoses 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) PAD (peripheral artery disease) (HCC) Primary hypertension Hyperlipidemia, unspecified hyperlipidemia type Procedures CT CHEST WO IVCON DIAGNOSTIC COMPUTED TOMOGRAPHY THORAX W/O CNTGODFREYT Shanice Larsen MD [id number] Imaging [place] [address] Referral ID Status Reason Start Date Expiration Date Visits Requested Visits Authorized [id number] Pending Review Auto-Generat ed Referral 01/16/2024 02/14/2025 1 1 Specialty Diagnoses / Procedures Referred By Contac t Referred To Contact [facility] Diagnoses 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) PAD (peripheral artery disease) (HCC) Primary hypertension Hyperlipidemia, unspecified hyperlipidemia type Procedures ECG COMPLETE ECG ROUTINE ECG W/LEAST 12 LDS W/I&R Shanice Larsen MD [address] [place] [address] [facility] [place] [address] Referral ID Status Reason Start Date Expiration Date Visits Requested Visits Authorized [id number] New Request Auto-Generat ed Referral 01/16/2024 01/15/2025 1 1 Specialty Diagnoses / Procedures Referred By Contac t Referred To Contact [facility] Diagnoses 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) PAD (peripheral artery disease) (HCC) Primary hypertension Hyperlipidemia, unspecified hyperlipidemia type Procedures CARDIOVASCULAR MEDICINE OP FOLLOW UP APPT ORDER Shanice Larsen MD [address] [phone] [facility] [place] [address] Referral ID Status Reason Start Date Expiration Date Visits Requested Visits Authorized [id number] Ref Not Required PCP Requested Referral 07/18/2024 01/15/2025 1 1 Specialty Diagnoses / Procedures Referred By Contac t Referred To Contact CT IMAGING Diagnoses Lung nodule Procedures CT CHEST WO IVCON DIAGNOSTIC COMPUTED TOMOGRAPHY THORAX W/O CNTRST Randolph Reyes MD [address] [id number] Imaging [facility] Referral ID Status Reason Start Date Expiration Date Visits Requested Visits Authorized [id number] Pending Review Auto-Generat ed Referral 10/21/2023 11/19/2024 1 1 Specialty Diagnoses / Procedures Referred By Catherine michel Referred To Contact Procedures CARDIOVASCULAR MEDICINE OP FOLLOW UP APPT ORDER Shanice Larsen MD [address] [place] [id number] Referral ID Status Reason Start Date Expiration Date Visits Requested Visits Authorized [id number] Ref Not Required PCP Requested Referral 05/28/2023 05/27/2024 1 1 Specialty Diagnoses / Procedures Referred By Catherine michel Referred To Contact Cardiothoracic Surgery Diagnoses Coronary artery disease involving walk[place] coronary artery without angina pectoris, unspecified whether walk[place] or transplanted heart Procedures CONSULT TO CARDIOTHORACIC SURGERY Shanice Larsen MD [address] [place] [address] Referral ID Status Reason Start Date Expiration Date Visits Requested Visits Authorized [id number] Ref Not Required PCP Requested Referral 05/26/2023 [...] section and content) DATE CREATED AUTHOR 07/19/2022 [facility] DATE CREATED AUTHOR AUTHOR'S ORGANIZ ATION 07/20/2022 [employer] DATE CREATED AUTHOR AUTHOR'S ORGANIZ ATION 10/07/2022 [facility] DATE CREATED AUTHOR AUTHOR'S ORGANIZ ATION 06/11/2023 [facility] DATE CREATED AUTHOR AUTHOR'S ORGANIZ ATION 10/03/2023 [facility] DATE CREATED AUTHOR AUTHOR'S ORGANIZ ATION 11/28/2024 [facility] DATE CREATED AUTHOR AUTHOR'S ORGANIZ ATION 01/01/2025 [facility] DATE CREATED AUTHOR AUTHOR'S ORGANIZ ATION 01/04/2025 [facility] EP[employer] Care Teams (unrecognized sec tion and content) Team Status: Active Member Role Status Dates Nano Nguyen MD Primary Care Provider Active Team Status: Inactive Member Role Status Dates Patrizia Melendrez MD Attending Provider Active Nano Nguyen MD Primary Care Provider Active [employer] Set Up Operator Relationship Specialty Start Date End Date Shanice Larsen MD [address] [place] [address] Primary Staff Physician Cardiology 04/03/23 [employer] Set Up Operator Relationship Specialty Start Date End Date Shanice Larsen MD [address] [place] [address] Primary Staff Physician Cardiology 04/03/23 [employer] Set Up Operator Relationship Specialty Start Date End Date Shanice Larsen MD [address] [place] [address] Primary Staff Physician Cardiology 04/03/23 [employer] Set Up Operator Relationship Specialty Start Date End Date Shanice Larsen MD [address] [place] [address] Primary Staff Physician Cardiology 04/03/23 [employer] Set Up Operator Relationship Specialty Start Date End Date Shanice Larsen MD [address] [place] [address] Primary Staff Physician Cardiology 04/03/23 Willem Suarez MD [address] [place] [address] Surgeon Cardiac Surg 05/30/23 [employer] Set Up Operator Relationship Specialty Start Date End Date Shanice Larsen MD [address] [place] [address] Primary Staff Physician Cardiology 04/03/23 Willem Suarez MD [address] [facility] [place] [phone] Surgeon Cardiac Surg 05/30/23 [employer] Set Up Operator Relationship Specialty Start Date End Date Nano Nguyen MD [address] [place] [address] PCP - General Family Medicine 06/14/23 Shanice Larsen MD Primary Staff Physician Cardiology 04/03/23 Willem Suarez MD [address] [place] [phone] Surgeon Cardiac Surg 05/30/23 [employer] Set Up Operator Relationship Specialty Start Date End Date Nano Nguyen MD [address] [place] [address] PCP - General Family Medicine 06/14/23 Shanice Larsen MD Primary Staff Physician Cardiology 04/03/23 Willem Suarez MD [address] [facility] [place] [phone] Surgeon Cardiac Surg 05/30/23 [employer] Set Up Operator Relationship Specialty Start Date End Date Nano Nguyen MD [address] [place] [address] PCP - General Family Medicine 06/14/23 Shanice Larsen MD Primary Staff Physician Cardiology 04/03/23 Willem Suarez MD [address] [place] [address] Surgeon Cardiac Surg 05/30/23 [employer] Set Up Operator Relationship Specialty Start Date End Date Nano Nguyen MD [address] [place] [address] PCP - General Family Medicine 06/14/23 Shanice Larsen MD Primary Staff Physician Cardiology 04/03/23 Willem Suarez MD [address] [place] [address] Surgeon Cardiac Surg 05/30/23 [employer] Set Up Operator Relationship Specialty Start Date End Date Nano Nguyen MD [address] [place] [address] PCP - General Family Medicine 06/14/23 Shanice Larsen MD Primary Staff Physician Cardiology 04/03/23 Willem Suarez MD [address] [place] [address] Surgeon Cardiac Surg 05/30/23 [employer] Set Up Operator Relationship Specialty Start Date End Date Nano Nguyen MD [address] [place] [address] PCP - General Family Medicine 06/14/23 Shanice Larsen MD Primary Staff Physician Cardiology 04/03/23 Willem Suarez MD [address] [place] [address] Surgeon Cardiac Surg 05/30/23 [employer] Set Up Operator Relationship Specialty Start Date End Date Nano Nguyen MD [address] [place] [address] PCP - General Family Medicine 06/14/23 Shanice Larsen MD Primary Staff Physician Cardiology 04/03/23 Willem Suarez MD [address] [place] [address] Surgeon Cardiac Surg 05/30/23 [employer] Set Up Operator Relationship Specialty Start Date End Date Nano Nguyen MD [address] [place] [address] PCP - General Family Medicine 06/14/23 Shanice Larsen MD Primary Staff Physician Cardiology 04/03/23 Willem Suarez MD [address] [place] [address] Surgeon Cardiac Surg 05/30/23 [employer] Set Up Operator Relationship Specialty Start Date End Date Nano Nguyen MD [address] [place] [address] PCP - General Family Medicine 06/14/23 Shanice Larsen MD Primary Staff Physician Cardiology 04/03/23 Willem Suarez MD [address] [place] [address] Surgeon Cardiac Surg 05/30/23 [employer] Set Up Operator Relationship Specialty Start Date End Date Nano Nguyen MD [address] [place] [address] PCP - General Family Medicine 06/14/23 Shanice Larsen MD Primary Staff Physician Cardiology 04/03/23 Willem Suarez MD [address] [place] [address] Surgeon Cardiac Surg 05/30/23 [employer] Set Up Operator Relationship Specialty Start Date End Date Nano Nguyen MD [address] [place] [address] PCP - General Family Medicine 06/14/23 Shanice Larsen MD Primary Staff Physician Cardiology 04/03/23 Willem Suarez MD [address] [place] [address] Surgeon Cardiac Surg 05/30/23 [employer] Set Up Operator Relationship Specialty Start Date End Date Nano Nguyen MD [address] [place] [address] PCP - General Family Medicine 06/14/23 Shanice Larsen MD Primary Staff Physician Cardiology 04/03/23 Willem Suarez MD [address] [place] [address] Surgeon Cardiac Surg 05/30/23 [employer] Set Up Operator Relationship Specialty Start Date End Date Nano Nguyen MD [address] [place] [phone] PCP - General Family Medicine 06/14/23 Shanice Larsen MD Primary Staff Physician Cardiology 04/03/23 Willem Suarez MD [address] [place], [place] [id number] Surgeon Cardiac Surg 05/30/23 [employer] Set Up Operator Relationship Specialty Start Date End Date Nano Nguyen MD [address] [place] [address] PCP - General Family Medicine 06/14/23 Shanice Larsen MD Primary Staff Physician Cardiology 04/03/23 Willem Suarez MD [address] [place] [address] Surgeon Cardiac Surg 05/30/23 [employer] Set Up Operator Relationship Specialty Start Date End Date Nano Nguyen MD [address] [place] [address] PCP - General Family Medicine 06/14/23 Shanice Larsen MD Primary Staff Physician Cardiology 04/03/23 Willem Suarez MD [address] [place] [address] Surgeon Cardiac Surg 05/30/23 [employer] Set Up Operator Relationship Specialty Start Date End Date Nano Nguyen MD [address] [place] [address] PCP - General Family Medicine 06/14/23 Shanice Larsen MD Primary Staff Physician Cardiology 04/03/23 Willem Suarez MD [address] [facility] [place] [address] Surgeon Cardiac Surg 05/30/23 [employer] Set Up Operator Relationship Specialty Start Date End Date Nano Nguyen MD [address] [place] [address] PCP - General Family Medicine 06/14/23 Shanice Larsen MD Primary Staff Physician Cardiology 04/03/23 Willem Suarez MD [address] [facility] [place] [address] Surgeon Cardiac Surg 05/30/23 [employer] Set Up Operator Relationship Specialty Start Date End Date Nano Nguyen MD [address] [place] [address] PCP - General Family Medicine 06/14/23 Shanice Larsen MD Primary Staff Physician Cardiology 04/03/23 Willem Suarez MD [address] [place] [address] Surgeon Cardiac Surg 05/30/23 [employer] Set Up Operator Relationship Specialty Start Date End Date Nano Nguyen MD [address] [place] [address] PCP - General Family Medicine 06/14/23 Shanice Larsen MD Primary Staff Physician Cardiology 04/03/23 Willem Suarez MD [address] [place] [address] Surgeon Cardiac Surg 05/30/23 [employer] Set Up Operator Relationship Specialty Start Date End Date Nano Nguyen MD [address] [place] [address] PCP - General Family Medicine 06/14/23 Shanice Larsen MD Primary Staff Physician Cardiology 04/03/23 Willem Suarez MD [address] [place] [address] Surgeon Cardiac Surg 05/30/23 [employer] Set Up Operator Relationship Specialty Start Date End Date Nano Nguyen MD [address] [place] [address] PCP - General Family Medicine 06/14/23 Shanice Larsen MD Primary Staff Physician Cardiology 04/03/23 Willem Suarez MD [address] [place] [address] Surgeon Cardiac Surg 05/30/23 [employer] Set Up Operator Relationship Specialty Start Date End Date Nano Nguyen MD [address] [place] [id number] PCP - General Family Medicine 06/14/23 Shanice Larsen MD Primary Staff Physician Cardiology 04/03/23 Willem Suarez MD [address] [place] [address] Surgeon Cardiac Surg 05/30/23 [employer] Set Up Operator Relationship Specialty Start Date End Date Nano Nguyen MD [address] [place] [id number] PCP - General Family Medicine 06/14/23 Shanice Larsen MD Primary Staff Physician Cardiology 04/03/23 Willem Suarez MD [address] [place] [address] Surgeon Cardiac Surg 05/30/23 [employer] Set Up Operator Relationship Specialty Start Date End Date Nano Nguyen MD [address] [place] [address] PCP - General Family Medicine 06/14/23 Shanice Larsen MD Primary Staff Physician Cardiology 04/03/23 Willem Suarez MD [address] [place] [address] Surgeon Cardiac Surg 05/30/23 Team Status: Inactive Member Role Status Dates Nano Nguyen MD Primary Care Provider Active Start: September 24, 2024 End: September 24, 2024 Gonzalez Barclay MD Attending Provider Active Start: September 24, 2024 End: September 24, 2024 Team Status: Inactive Member Role Status Dates Nano Nguyen MD Primary Care Provider Active Start: October 06, 2024 End: October 06, 2024 Gonzalez Barclay MD Attending Provider Active Start: October 06, 2024 End: October 06, 2024 Team Status: Inactive Member Role Status Dates Nano Nguyen MD Primary Care Provider Active Start: October 19, 2024 End: October 20, 2024 Gonzalez Barclay MD Admit Provider , Attending Provider Active Start: October 19, 2024 End: October 20, 2024 Team Status: Active Member Role Status Dates Nano Nguyen MD Primary Care Provider Active Start: October 19, 2024 Gonzalez Barclay MD Admit Provider , Attending Provider, Other Provider Active Start: October 19, 2024 Team Status: Inactive Member Role Status Dates Nano Nguyen MD Primary Care Provider Active Start: November 05, 2024 End: November 05, 2024 Gonzalez Barclay MD Active St art: November 05, 2024 End: November 05, 2024 Milena Hardin , WIRE CHARGER-C Attending Provider Active Start: November 05, 2024 End: November 05, 2024 Team Status: Inactive Member Role Status Dates Nano Nguyen MD Primary Care Provider Active Start: November 05, 2024 End: November 05, 2024 Milena Hardin WIRE CHARGER-C Attending Provider Active Start: November 05, 2024 End: November 05, 2024 Team Status: Inactive Member Role Status Dates Nano Nguyen MD Primary Care Provider Active Start: November 12, 2024 End: November 12, 2024 Gonzalez Barclay MD Attending Provider Active Start: November 12, 2024 End: November 12, 2024 Team Status: Inactive Member Role Status Dates Nano Nguyen MD Primary Care Provider Active Start: November 13, 2024 End: November 13, 2024 Gonzalez Barclay MD Attending Provider Active Start: November 13, 2024 End: November 13, 2024 Team Status: Active Member Role Status Dates Nano Nguyen MD Primary Care Provider Active Start: November 13, 2024 Gonzalez Barclay MD Attending Prov ider, Other Provider Active Start: November 13, 2024 [employer] Set Up Operator Relationship Specialty Start Date End Date Nano Nguyen MD [address] [place] [address] PCP - General Family Medicine 06/14/23 Shanice Larsen MD Primary Staff Physician Cardiology 04/03/23 Willem Suarez MD [address] [place] [address] Surgeon Cardiac Surg 05/30/23 Team Status: Inactive Member Role Status Dates Nano Nguyen MD Primary Care Provider Active Start: October 19, 2024 End: October 20, 2024 Gonzalez Barclay MD Admit Provider Active Start: October 19, 2024 End: October 20, 2024 Gonzalez Barclay MD Attending Provider Active Start: October 19, 2024 End: October 20, 2024 Team Status: Active Member Role Status Dates Nano Nguyen MD Primary Care Provider Active Start: October 19, 2024 Gonzalez Barclay MD Admit Provider Active Start: October 19, 2024 Gonzalez Barclay MD Attending Provider Active Start: October 19, 2024 Gonzalez Barclay MD Other Provider Active Start: October 19, 2024 Team Status: Active Member Role Status Dates Nano Nguyen MD Primary Care Provider Active Start: November 13, 2024 Gonzalez Barclay MD Attending Provider Active Start: November 13, 2024 Gonzalez Barclay MD Other Provider Active Start: November 13, 2024 Team Status: Inactive Member Role Status Dates Nano Nguyen MD Primary Care Provider Active Start: December 03, 2024 End: December 03, 2024 Gonzalez Barclay MD Attending Provider Active Start: December 03, 2024 End: December 03, 2024 Team Status: Inactive Member Role Status Dates Nano Nguyen MD Primary Care Provider Active Start: December 23, 2024 End: December 23, 2024 Gonzalez Barclay MD Attending Provider Active Start: December 23, 2024 End: December 23, 2024 [employer] Set Up Operator Relationship Specialty Start Date End Date Nano Nguyen MD [address] [place] [address] PCP - General Family Medicine 12/31/22 [employer] Set Up Operator Relationship Specialty Start Date End Date Nano Nguyen MD [address] [place] [address] PCP - General Family Medicine 12/31/22 Goals (unrecognized section and content) Goals may be documented in a n alternate sectionNo InformationNo InformationNo InformationGoals may be documented in an alternate sectionGoals may be documented in an alternate section REASON FOR VISIT (unrecogniz ed section and content) Reason Comments Follow Up Tests Results Reason Comments Follow Up Reason Comments Insurance Authorization Reason Comments Referral Information New Patient Evaluation Reason Comments Follow Up Phone Call RC f/u all clear Specialty Diagnoses / Procedures Referred By Contac t Referred To Contact ADMITTING Diagnoses Coronary artery disease involving walk[place] river coronary artery of walk[place] heart with angina pectoris (HCC) Type 2 diabetes mellitus without complication, without long-term current use of insulin (FORM[facility]LY [facility]) Procedures CORONARY ARTERY BYP W/VEIN & ARTERY GRAFT 1 VEIN BYPASS GRAFT ARTERY CORONARY ON-PUMP USING VENOUS GRAFT(S) AND ARTERIAL GRAFT(S) SINGLE VEIN GRAFT [facility] [address] [place], [place] [id number] Referral ID Status Reason Start Date Expiration Date Visits Re quested Visits Authorized [id number] 1 1 Reason Comments Radio Main J1 Specialty Diagnoses / Procedures Referred By Contac t Referred To Contact ADMITTING Diagnoses Coronary artery disease involving walk[place] river coronary artery of walk[place] heart with angina pectoris (HCC) Type 2 diabetes mellitus without complication, without long-term current use of insulin (HCC) Procedures CORONARY ARTERY BYP W/VEIN & ARTERY GRAFT 1 VEIN BYPASS GRAFT ARTERY CORONARY ON-PUMP USING VENOUS GRAFT(S) AND ARTERIAL GRAFT(S) SINGLE VEIN GRAFT [facility] [address] [place], [place] [id number] Reason Comments Follow Up Phone Call RC follow up call a davide clear. Reason Comments Appointment Reason Comments dental clearance Specialty Diagnoses / [facility] Diagnoses Lung nodule Procedures CT CHEST WO IVCON DIAGNOSTIC COMPUTED TOMOGRAPHY THORAX W/O CNTRST Randolph Reyes MD [address] [id number] Imaging [place] [address] Referral ID Status Reason Start Date Expiration Date V isits Requested Visits Authorized [id number] Closed Auto-Generate d Referral 09/02/2023 06/23/2024 1 1 Reason Comments Follow Up Shortness of Breath Specialty Diagnoses / Procedures [facility]erred To Contact Diagnoses Follow-up exam Procedures CARDIOVASCULAR MEDICINE OP FOLLOW UP APPT ORDER OFFICE/OUTPATIENT ESTABLISHED HIGH MDM 40 MIN Pamela Laws, NEWS PRODUCTION ASSISTANT.DEHYDRATION UNIT OPERATOR [id number] [address] Main [address] [place] [id number] Referral ID Status Reason Start Date Expiration Date V isits Requested Visits Authorized [id number] Closed PCP Requested Referral 10/01/2023 07/01/2024 1 1 Reason Comments Received Outside Medical Records [facility] ECHO REPORT Reason Comments Received Outside Medical Records [facility] Reason Comments Insurance Authorization Repatha SureClic k 140MG/ML auto-injectors Reason Comments Follow Up Specialty Diagnoses / Procedures Referred By Contac t Referred To [facility] Diagnoses 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) SOB (shortness of breath) PAD (peripheral artery disease) (HCC) TIA (transient ischemic attack) Procedures CARDIOVASCULAR MEDICINE OP FOLLOW UP APPT ORDER Shanice Larsen MD [address] [place] [address] [facility] [address] [place], [place] [id number] Referral ID Status Reason Start Date Expiration Date Visits Requested Visits Authorized [id number] Ref Not Required PCP Requested Referral 01/09/2024 10/09/2024 1 1 Reason Comments Established Patient Specialty Diagnoses / Procedures Referred By Contac t Referred To Contact CT IMAGING Diagnoses 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) PAD (peripheral artery disease) (HCC) Primary hypertension Hyperlipidemia, unspecified hyperlipidemia type Procedures CT CHEST WO IVCON DIAGNOSTIC COMPUTED TOMOGRAPHY THORAX W/O CNTRST Shanice Larsen MD [address] [place] [address] Ct Imaging [facility] Referral ID Status Reason Start Date Expiration Date V isits Requested Visits Authorized [id number] Closed Auto-Generate d Referral 2024 06/23/2024 1 1 Reason Comments Results Reason Comments Chest Pain Reason Comments Patient Update Reason Comments Post Dc Program Call - Needs Attn Reason Comments OV & CT PULM Reason Comments Diabetic Eye Exam Source Comments (unrecognize d section and content) In the event this informatio n is protected by the Federal Confidentiality of Alcohol and Drug Abuse Patient Records regulations: The Federal rules restrict any use of the information to criminally investigate or prosecute any alcohol or drug abuse patient.[facility] the event this information is protected by the Federal Confidentiality of Alcohol and Drug Abuse Patient Records regulations: The Federal rules restrict any use of the information to criminally investigate or prosecute any alcohol or drug abuse patient.[facility] HospitalIn the event this information is protected by the Federal Confidentiality of Alcohol and Drug Abuse Patient Records regulations: The Federal rules restrict any use of the information to criminally investigate or prosecute any alcohol or drug abuse patient.[facility] HospitalIn the event this information is protected by the Federal Confidentiality of Alcohol and Drug Abuse Patient Records regulations: The Federal rules restrict any use of the information to criminally investigate or prosecute any alcohol or drug abuse patient.[facility] HospitalIn the event this information is protected by the Federal Confidentiality of Alcohol and Drug Abuse Patient Records regulations: The Federal rules restrict any use of the information to criminally investigate or prosecute any alcohol or drug abuse patient.[facility] HospitalIn the event this information is protected by the Federal Confidentiality of Alcohol and Drug Abuse Patient Records regulations: The Federal rules restrict any use of the information to criminally investigate or prosecute any alcohol or drug abuse patient.[facility] HospitalIn the event this information is protected by the Federal Confidentiality of Alcohol and Drug Abuse Patient Records regulations: The Federal rules restrict any use of the information to criminally investigate or prosecute any alcohol or drug abuse patient.[facility] HospitalIn the event this information is protected by the Federal Confidentiality of Alcohol and Drug Abuse Patient Records regulations: The Federal rules restrict any use of the information to criminally investigate or prosecute any alcohol or drug abuse patient.[facility] HospitalIn the event this information is protected by the Federal Confidentiality of Alcohol and Drug Abuse Patient Records regulations: The Federal rules restrict any use of the information to criminally investigate or prosecute any alcohol or drug abuse patient.[facility] HospitalIn the event this information is protected by the Federal Confidentiality of Alcohol and Drug Abuse Patient Records regulations: The Federal rules restrict any use of the information to criminally investigate or prosecute any alcohol or drug abuse patient.[facility] HospitalIn the event this information is protected by the Federal Confidentiality of Alcohol and Drug Abuse Patient Records regulations: The Federal rules restrict any use of the information to criminally investigate or prosecute any alcohol or drug abuse patient.[facility] HospitalIn the event this information is protected by the Federal Confidentiality of Alcohol and Drug Abuse Patient Records regulations: The Federal rules restrict any use of the information to criminally investigate or prosecute any alcohol or drug abuse patient.[facility] HospitalIn the event this information is protected by the Federal Confidentiality of Alcohol and Drug Abuse Patient Records regulations: The Federal rules restrict any use of the information to criminally investigate or prosecute any alcohol or drug abuse patient.[facility] HospitalIn the event this information is protected by the Federal Confidentiality of Alcohol and Drug Abuse Patient Records regulations: The Federal rules restrict any use of the information to criminally investigate or prosecute any alcohol or drug abuse patient.[facility] HospitalIn the event this information is protected by the Federal Confidentiality of Alcohol and Drug Abuse Patient Records regulations: The Federal rules restrict any use of the information to criminally investigate or prosecute any alcohol or drug abuse patient.[facility] HospitalIn the event this information is protected by the Federal Confidentiality of Alcohol and Drug Abuse Patient Records regulations: The Federal rules restrict any use of the information to criminally investigate or prosecute any alcohol or drug abuse patient.[facility] HospitalIn the event this information is protected by the Federal Confidentiality of Alcohol and Drug Abuse Patient Records regulations: The Federal rules restrict any use of the information to criminally investigate or prosecute any alcohol or drug abuse patient.[facility] HospitalIn the event this information is protected by the Federal Confidentiality of Alcohol and Drug Abuse Patient Records regulations: The Federal rules restrict any use of the information to criminally investigate or prosecute any alcohol or drug abuse patient.[facility] HospitalIn the event this information is protected by the Federal Confidentiality of Alcohol and Drug Abuse Patient Records regulations: The Federal rules restrict any use of the information to criminally investigate or prosecute any alcohol or drug abuse patient.[facility] HospitalIn the event this information is protected by the Federal Confidentiality of Alcohol and Drug Abuse Patient Records regulations: The Federal rules restrict any use of the information to criminally investigate or prosecute any alcohol or drug abuse patient.[facility] HospitalIn the event this information is protected by the Federal Confidentiality of Alcohol and Drug Abuse Patient Records regulations: The Federal rules restrict any use of the information to criminally investigate or prosecute any alcohol or drug abuse patient.[facility] HospitalIn the event this information is protected by the Federal Confidentiality of Alcohol and Drug Abuse Patient Records regulations: The Federal rules restrict any use of the information to criminally investigate or prosecute any alcohol or drug abuse patient.[facility] HospitalIn the event this information is protected by the Federal Confidentiality of Alcohol and Drug Abuse Patient Records regulations: The Federal rules restrict any use of the information to criminally investigate or prosecute any alcohol or drug abuse patient.[facility] HospitalIn the event this information is protected by the Federal Confidentiality of Alcohol and Drug Abuse Patient Records regulations: The Federal rules restrict any use of the information to criminally investigate or prosecute any alcohol or drug abuse patient.[facility] HospitalIn the event this information is protected by the Federal Confidentiality of Alcohol and Drug Abuse Patient Records regulations: The Federal rules restrict any use of the information to criminally investigate or prosecute any alcohol or drug abuse patient.[facility] HospitalIn the event this information is protected by the Federal Confidentiality of Alcohol and Drug Abuse Patient Records regulations: The Federal rules restrict any use of the information to criminally investigate or prosecute any alcohol or drug abuse patient.[facility] HospitalIn the event this information is protected by the Federal Confidentiality of Alcohol and Drug Abuse Patient Records regulations: The Federal rules restrict any use of the information to criminally investigate or prosecute any alcohol or drug abuse patient.[facility] HospitalIn the event this information is protected by the Federal Confidentiality of Alcohol and Drug Abuse Patient Records regulations: The Federal rules restrict any use of the information to criminally investigate or prosecute any alcohol or drug abuse patient.[facility] HospitalIn the event this information is protected by the Federal Confidentiality of Alcohol and Drug Abuse Patient Records regulations: The Federal rules restrict any use of the information to criminally investigate or prosecute any alcohol or drug abuse patient.[facility] HospitalIn the event this information is protected by the Federal Confidentiality of Alcohol and Drug Abuse Patient Records regulations: The Federal rules restrict any use of the information to criminally investigate or prosecute any alcohol or drug abuse patient.[facility] HospitalIn the event this information is protected by the Federal Confidentiality of Alcohol and Drug Abuse Patient Records regulations: The Federal rules restrict any use of the information to criminally investigate or prosecute any alcohol or drug abuse patient.[facility] HospitalIn the event this information is protected by the Federal Confidentiality of Alcohol and Drug Abuse Patient Records regulations: The Federal rules restrict any use of the information to criminally investigate or prosecute any alcohol or drug abuse patient.[facility] HospitalIn the event this information is protected by the Federal Confidentiality of Alcohol and Drug Abuse Patient Records regulations: The Federal rules restrict any use of the information to criminally investigate or prosecute any alcohol or drug abuse patient.[facility] HospitalIn the event this information is protected by the Federal Confidentiality of Alcohol and Drug Abuse Patient Records regulations: The Federal rules restrict any use of the information to criminally investigate or prosecute any alcohol or drug abuse patient.[facility] HospitalIn the event this information is protected by the Federal Confidentiality of Alcohol and Drug Abuse Patient Records regulations: The Federal rules restrict any use of the information to criminally investigate or prosecute any alcohol or drug abuse patient.[facility] HospitalIn the event this information is protected by the Federal Confidentiality of Alcohol and Drug Abuse Patient Records regulations: The Federal rules restrict any use of the information to criminally investigate or prosecute any alcohol or drug abuse patient.[facility] HospitalIn the event this information is protected by the Federal Confidentiality of Alcohol and Drug Abuse Patient Records regulations: The Federal rules restrict any use of the information to criminally investigate or prosecute any alcohol or drug abuse patient.[facility] HospitalIn the event this information is protected by the Federal Confidentiality of Alcohol and Drug Abuse Patient Records regulations: The Federal rules restrict any use of the information to criminally investigate or prosecute any alcohol or drug abuse patient.[facility] HospitalIn the event this information is protected by the Federal Confidentiality of Alcohol and Drug Abuse Patient Records regulations: The Federal rules restrict any use of the information to criminally investigate or prosecute any alcohol or drug abuse patient.[facility] HospitalIn the event this information is protected by the Federal Confidentiality of Alcohol and Drug Abuse Patient Records regulations: The Federal rules restrict any use of the information to criminally investigate or prosecute any alcohol or drug abuse patient.[facility] HospitalIn the event this information is protected by the Federal Confidentiality of Alcohol and Drug Abuse Patient Records regulations: The Federal rules restrict any use of the information to criminally investigate or prosecute any alcohol or drug abuse patient.[facility] HospitalIn the event this information is protected by the Federal Confidentiality of Alcohol and Drug Abuse Patient Records regulations: The Federal rules restrict any use of the information to criminally investigate or prosecute any alcohol or drug abuse patient.[facility] HospitalIn the event this information is protected by the Federal Confidentiality of Alcohol and Drug Abuse Patient Records regulations: The Federal rules restrict any use of the information to criminally investigate or prosecute any alcohol or drug abuse patient.[facility] HospitalIn the event this information is protected by the Federal Confidentiality of Alcohol and Drug Abuse Patient Records regulations: The Federal rules restrict any use of the information to criminally investigate or prosecute any alcohol or drug abuse patient.[facility] HospitalIn the event this information is protected by the Federal Confidentiality of Alcohol and Drug Abuse Patient Records regulations: The Federal rules restrict any use of the information to criminally investigate or prosecute any alcohol or drug abuse patient.[facility] HospitalIn the event this information is protected by the Federal Confidentiality of Alcohol and Drug Abuse Patient Records regulations: The Federal rules restrict any use of the information to criminally investigate or prosecute any alcohol or drug abuse patient.[facility] FOR RECORDS PERTAINING TO PATIENTS WHO [...] BE BASED ON THE PRIMARY CLINICAL RECORDS. [facility] [employer] [facility]. provides no warranty or guarantee of the accuracy or completeness of information in this document.
[2025-01-07 12:01] LABS: Hematocrit 45.9 % (36.0-48.0); Hemoglobin 15.0 g/dL (12.0-16.0); Immature Granulocytes Abs Auto 0.02 10^3/uL (0.00-0.03); Immature Granulocytes Pct Auto 0.3 % (0.0-0.5); Lymphocytes Absolute Auto 2.4 10^3/uL (1.2-3.8); Mean Corpuscular HGB Conc 32.7 g/dL (29.9-35.2); Mean Corpuscular Hemoglobin 28.8 pg (26.7-34.0); Mean Corpuscular Volume 88.3 fL (81.0-99.0); Platelet Count 353 10^3/uL (150-450); Red Blood Count 5.20 10^6/uL (4.20-5.40); White Blood Count 7.8 10^3/uL (4.0-11.0)
[2025-01-07 12:29] LABS: Alanine Aminotransferase 23 U/L (14-59); Albumin Globulin Ratio 0.9; Albumin Level 3.4 g/dL (3.4-5.0); Alkaline Phosphatase 98 U/L (46-116); Anion Gap 11.2; Aspartate Amino Transferase 9 U/L (15-37); Blood Urea Nitrogen 24.0 mg/dL (7.0-18.0); Calcium 10.8 mg/dL (8.5-10.1); Carbon Dioxide 27.4 mmol/L (21.0-32.0); Chloride 97 mmol/L (98-107); Estimated GFR (African America >60 (>=60 mL/min/1.73m^2); Estimated GFR (Non-African Ame >60 (>=60 mL/min/1.73m^2); Free T3 2.56 pg/mL (2.18-3.98); Globulin 4.0 g/dL; Glucose 120 mg/dL (74-106); Magnesium 1.9 mg/dL (1.8-2.4); NT Pro B Type Natriuretic Pept 149.0 pg/mL (<=900.0); Potassium 4.6 mmol/L (3.5-5.1); Sodium 131 mmol/L (136-145); Thyroid Stimulating Hormone 0.577 uIU/mL (0.358-3.740); Total Protein 7.4 g/dL (6.4-8.2)
[2025-01-07 12:55] LABS: Iron 128.0 ug/dL (50.0-170.0)
== END 2025-01-07 11:12 | disposition home or self-care (01) ==
LOC: LAB 11:13
PROVIDERS: PCP Family Medicine; Visit Provider Family Medicine
DX: E11.621 Type 2 diabetes mellitus with foot ulcer (principal); E78.00 Pure hypercholesterolemia, unspecified; I10 Essential (primary) hypertension
CPT/HCPCS: 36415; 80053; 82306; 83540; 83735; 83880; 84436; 84443; 84481; 84484; 85025

== ENCOUNTER 2025-06-04 09:52 | Outpatient (OUT) | payer OTHER, SELFPAY ==
--- OUTSIDE RECORDS SUMMARY | 2025-05-24 09:39 | XMS_ITS | Continuity of Care Document ---
Author Organization [facility] Address [address] [place] [address] Phone Care Team Providers Care Consulting Actuary Name Role Phone Froylan Muhammad MD Primary Care Provider Gonzalez Barclay MD Attending Provider Halima Law APRN Attending Provider Mai Cantu APRN Attending Provider Care Teams Patient Care Team Team Status: Active Member Role/Relationship Status Pratik Muhammad MD Primary Care Provider Active Visit Care Team Team Status: Inactive Member Role/Relationship Status Pratik Muhammad MD Primary Care Provider Active Start: March 31, 2025 End: March 31, 2025Nehemiah Linares ProviderActiveStart: March 31, 2025 End: March 31, 2025 Visit Care Team Team Status: Inactive Member Role/Relationship Status Pratik Muhammad MD Primary Care Provider Active Start: March 31, 2025 End: March 31, 2025Nehemiah Linares ProviderActiveStart: March 31, 2025 End: March 31, 2025 Visit Care Team Team Status: Inactive Member Role/Relationship Status Pratik Muhammad MD Primary Care Provider Active Start: April 12, 2025 End: April 12, 2025Nina Gonzalez ProviderActiveStart: April 12, 2025 End: April 12, 2025 Visit Care Team Team Status: Active Member Role/Relationship Status Dates Froylan Muhammad MD Primary Care Provider Active Start: May 12, 2025 Nina Gonzalez ProviderActiveStart: May 12, 2025 Visit Care Team Team Status: Inactive Member Role/Relationship Status Dates Froylan Muhammad MD Primary Care Provider Active Start: May 19, 2025 End: May 19, 2025Nehemiah Linares ProviderActiveStart: May 19, 2025 End: May 19, 2025 Visit Care Team Team Status: Inactive Member Role/Relationship Status Dates Froylan Muhammad MD Primary Care Provider Active Start: May 19, 2025 End: May 19, 2025Nehemiah Linares ProviderActiveStart: May 19, 2025 End: May 19, 2025 Patient Care Team Team Status: Inactive Member Role/Relationship Status Dates Froylan Muhammad MD Primary Care Provider Active Start: May 24, 2025 End: May 24, 2025Nina Hartman ProviderActiveStart: May 24, 2025 End: May 24, 2025 Chief Complaint and Reason for Visit Chief Complaint Admit Date I73.9 March 31, 2025 10 :03am 3 mo jorge 930a March 31, 2025 10 :05am non healing wound right toe March 10:15am Open Wound May 12, 2025 10:01am Increased amount of Eshar on toes per [facility] May 19, 2025 11:34am Reason for Visit Admit Date Peripheral arterial disease March 31, 2025 10:05am Diabetes May 12, 2025 10:01am Peripheral arterial disease April 10:01am Skin ulcer of right great toe April 242024 10:01am Skin ulcer of third toe of right foot No vember 2024 10:01am Smoking addiction May 12, 2025 10:01am Ulcer of right heel May 12, 2025 10:01am Ulcer of right second toe May 12, 2025 10:01am Skin ulcer of third toe of right foot No vember 2024 11:34am Allergies, Adverse Reactions, Alerts Allergen Type Severity Reaction Last Updated Verified Status cat dander Allergy Unknown Sneezing May 24, 2025 1:21pm Yes Active house dust Allergy Unknown Sneezing May 24, 2025 1:21pm Yes Active tetracycline Allergy Unknown Vomiting May 1:21pm Yes Active rosuvastatin Allergy Unknown Fatigued/ Pain Decembe r 2024 1:21pm Yes Active tioconazole Allergy Unknown Swelling May 24, 2025 1:21pm Yes Active Social History Smoking Status Status Start Date End Date Date of Observa tion Smokes tobacco daily (finding) May 24, 2025 1:52pm Observation Status Observation Response Date of Response Legal Sex [facility] (finding) [facility] 1959 Family History Relationship Condition Age at Onset Recorded Date/T bradley father Heart disease Unknown Peripheral arterial diseaseUnknownHypertensionUnknownDeceasedUnknownMalignant neoplasmUnknownMalignant neoplasm of urinary bladderUnknownmotherDisorder of kidneyUnknownHeart diseaseUnknownMyocardial infarctionUnknownHypertensionUnknown DeceasedUnknownMental health problemUnknownbrotherMalignant neoplasm of lung UnknownPeripheral arterial diseaseUnknownDeceasedUnknownMalignant neoplasm UnknownExposure to Agent OrangeUnknownbrotherMalignant neoplasm of lungUnknown DeceasedUnknownMalignant neoplasmUnknownExposure to Agent OrangeUnknownbrother MesotheliomaUnknownsisterHistory of alcohol abuseUnknownDeceasedUnknownsister Neoplasm of brainUnknownbrotherSuicideUnknownsisterDiabetes mellitusUnknown Problems Active Problems Problem Diagnosis/Recorded Date Onset Date Stat us Smoking addiction April 14, 2025 3:33pm Unknown Active Diabetes September 24, 2024 1:06pm Unknown Activ e Skin ulcer of third toe of right foot April 28 10:14am Unknown Active Ulcer of right heel April 12, 2025 8:57am Unknown Active Skin ulcer of right great toe April 28, 2025 10:13 am Unknown Active Hyperlipidemia September 24, 2024 1:06pm Unknown Act darin Encounter for surgical after care following surgery of circulatory system November 05, 2024 9:16am Unknown Active Postoperative pain November 02, 2024 8:49am Unknown Active Primary hypertension September 24, 2024 1:06pm Unknown Active Peripheral arterial disease March 20, 2023 2:33p m Unknown Active Ulcer of right second toe April 12, 2025 8:57am Un known Active Wound dehiscence November 05, 2024 9:16am Unknown Ac tive Right foot ulcer November 05, 2024 9:16am Unknown Ac tive Hypertension September 24, 2024 1:06pm Unknown Activ e Inactive/Resolved Problems Problem Diagnosis/Recorded Date Onset Date Stat Peripheral vascular disease September 24, 2024 1:06pm Unk nown Resolved Medications Medication Status Dose Units Route Directions Qty Days Refills S tart Date Stop Date End Date Reason(s) Instructions Adherence Hydrocodone-Acetaminophen 5- 325 mg tablet Active 1 TAB PO Every 8 hours as needed for pain 14 5 0 November 02, 2024 Postoperative pain Other acute postprocedural painUnknownMiscellaneous Medical Supply misc Zblgkypardjz5DABLACJIXCRYHE.3 days a scmc32Avh2024 11:00pmOctober 2024 8:36amPatient needs nurse visit for wound changes increased to three times a weekSulfamethoxazole-Trimethoprim (Bactrim Ds) 800-160 mg tabletDiscontinued1 TABPOTwice tydze98432Rad2024 11:00pmJuly 2024 8:08amAmoxicillin-Pot Clavulanate 875-125 mg qtycxbHkfpbfaiydwh9PIIBURjuiw ihvdi39148Ibo2024 11:00pmJune 2024 10:40amMiscellaneous Medical Supply vlqtXmfkfnzxhjjg5UGJX MISCELLANE.Three TIMES A UVZH42Pui2024 11:00pmOctober 2024 8:36am WOUND VAC NEEDS TO BE CHANGED THREE TIMES A WEEK BY HOME HEALTH CARE NURSE Ciprofloxacin Hcl 500 mg ngiicgWrjxslvriigw359DXKUKkxxg fnnea3096Akqk2024 11:00pmJune 2024 10:40amOxycodone 5 mg PgwgqcDtruepyxmtfj97NLXPHhydo 4 hours as needed for Pain Scale 6 - 826787Ytkkh 2024May 2024 9:44am Peripheral vascular disease Peripheral vascular disease, unspecifiedCefuroxime Axetil 500 mg tablet Lhkpsjmobnod324FIGXRctgr lucyn23628Nxsfhtj 2024 11:00pmNovember 2024 10:04amGentamicin 0.1 % jcavfpxiCtpbxg6LWVYICATBODOAUrdcl495Jqetxdd 2024 11:00pmComplies with drug therapyCarvedilol 25 mg wmlsfcOijafmiskwnz11KACIEiluo dailySeptember 2022 11:00pmOctober 2022 11:58amVenlafaxine 75 mg capsule,extended release 16wdZoxhvm46IYROCetyt morningSeptember 2022 11:00pmComplies with drug therapyIbuprofen (Motrin) 800 mg WliahwRaecsdmitkhx040 MGPODailySeptember 2022 11:00pmOctober 2022 12:03pmLisinopril 20 mg oocweaOmglfy48VFBTYxvpc at bedtimeSeptember 2022 11:00pmComplies with drug therapyClopidogrel 75 mg qxgruhTdjcwh07GSKYDsgyy morningSeptember 2022 11:00pmComplies with drug therapyMetformin 1,000 mg skfyhiUcxnlz2819NKPGWwqyd dailySeptember 2022 11:00pmComplies with drug therapyMagnesium 250 mg VeujmySxbisc038AMOIQoraz morningSeptember 2022 11:00pmComplies with drug therapyAlbuterol Sulfate (Ventolin Hfa) 90 mcg/actuation HFA aerosol inhaler Lrdabf0GKOBWJYWYDMECWG6I as needed for Respiratory DistressSeptember 2022 11:00pmComplies with drug therapyOxybutynin Chloride 5 mg JexsktGerjzo7QHANCbtak dailySeptember 2022 11:00pmComplies with drug therapyLoratadine (Claritin) 10 mg TnnuxrRjtxhv60FJKSBkhuf morningSeptember 2022 11:00pmComplies with drug therapyCalcium 300 mg Tablet,MwdsxqzeEauxsqsmnchm717FWVRWsovd a Week March 19, 2023 11:00pmDeceer 2024 1:22pmEzetimibe 10 mg tablet Phgcjm99URZJXkdtm morningSeptember 2022 11:00pmComplies with drug therapy Varenicline Tartrate 1 mg ddtflmYhddsmpljdtf3RWMQPbribOtwvxmpvu 26th, 2023 11:00pmOctober 2022 12:06pmPotassium Gluconate 595 mg (99 mg) TabletActive 595MGPODailySept2022 11:00pmComplies with drug therapy Cholecalciferol (Vitamin D3) (Vitamin D3) 50 mcg (2,000 unit) XqbrrqWfbpsp15UCK POEvery morningSept2022 11:00pmUnknownL.Acid-L.Rham-B.Breve-S.Therm 3 billion cell Tablet,PhnwosdtGrqagjgjxczg5BABFUPhgjw a ept2022 11:00pmApril 2024 1:04pmEmpagliflozin (Jardiance) 10 mg vdwxefMsucvu57QLBY DailySept2022 11:00pmdiabetesComplies with drug therapyDulaglutide (Trulicity) 0.75 mg/0.5 mL pen ihjdgyfzTmnniu76KPYJAEMFyqenu weekSept2022 11:00pmdiabetessundayComplies with drug therapyRivaroxaban (Xarelto) 2.5 mg tabletDiscontinued0.ROUTE.COMPLEXSept2022 11:00pmOctober 2022 12:03pmpatient stopped medication 03/14/23, plans to start after surgery oct 6 Aspirin 81 mg MwnkbejTqhzafohzavr76RMELCkbucFxukfdqaw 26th, 2023 11:00pmApril 2024 1:04pmCarvedilol 12.5 mg kyrenrPtmyujerkfyr94.5MGPOTwice dailyOct2022 11:00pmApril 2024 2:21pmOxycodone 5 mg MtephtYwirsp66VDLUBjlgb 4 hours as needed for Pain Scale 6 - 232743Tmd 2024Dehiscence of wound Disruption of wound, unspecified, initial encounterUnknownIbuprofen 800 mg ipsnstNqbugz940JZNEOfkwe 8 hoursDecember 2024 12:00amComplies with drug therapyTizanidine 4 mg tabletActiveMGPODecember 2024 12:00amComplies with drug therapyascorbate calcium (vitamin C)ActivePODecember 2024 12:00am Complies with drug therapyTHC gummiesActivePODecember 2024 12:00amUnknown Metoprolol Succinate 50 mg tablet extended release 24 svDvblix87RMUPLwapq daily September 23, 2024 11:00pmComplies with drug therapyRivaroxaban (Xarelto) 2.5 mg tabletDiscontinued2.5MGPOEvery morningApril 2024 11:00pmJuly 2024 8:07amAlprazolam 0.25 mg tabletActive0.25MGPOTwice daily as needed for anxiety September 23, 2024 11:00pmComplies with drug therapyAspirin 81 mg xshrwnSuqumk93KN PODailyJuly 2024 11:00pmComplies with drug therapyRivaroxaban (Xarelto) 2.5 mg tabletActive2.5MGPOTwice msksv39447Kwil 2024 11:00pmComplies with drug therapy Immunizations Immunization Event Date Not Given Reason Dose Number Snow [employer]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 Lot Number Reason(s) Given Vaccine Information Statement (VIS) Detail Administration Location COVID-19 Ad26.COV2.S (DataCert) November 11, 2020 COVID-19 Ad26.COV2.S (DataCert)May 24, 2021 Medical Equipment Device Date Implanted Device Details Cardiovascular patch, animal-derived October 19, 2024 AFIA: [id number] Issuing Agency: [facility] Device Id: [id number] Expiration Date: 2029-02-21 Serial Number: [id number] peripheral artery stent, bare-metalApril 2024UDI: [id number] Issuing Agency: [facility] Device Id: [id number] Expiration Date: 2027-02-03 Serial Number: [id number] peripheral artery stent, bare-metalApril 2024UDI: [id number] Issuing Agency: [employer] Device Id: [id number] Expiration Date: 2027-03-11 Serial Number: [id number] Procedures Procedure Date Performed Status Aerobic Culture April 12, 2025 completed Anaerobic Culture April 12, 2025 completed Gram Stain April 12, 2025 completed US ankle/arm indices March 31, 2025 9:31am co mpleted XR foot RT min 3V* April 12, 2025 9:24am com pleted US ankle/arm indices May 19, 2025 12:03pm completed Relevant Diagnostic Tests and/or Laboratory Data Microbiology Results Procedure Source Result Collection Date/Time Result Date/Time Result Comment Performing Site Aerobic Culture Heel, Right, Ulcer Acinetobacter baumannii cplx April 12, 2025 9:47am April 15, 2025 9:14am [facility] [id number] [address] [place] [address]Wnwb, Right, UlcerKlebsiella oxytocaOct2024 9:47am April 15, 2025 9:14am[facility] [id number] [address] [facility] [address]Vqjsoybly CultureHeel, Right, UlcerNo Anaerobes Isolated 3 Days April 12, 2025 9:47amOctober 2024 10:34am[facility] [id number] [address] [facility] [address]Zmws StainHeel, Right, UlcerOctober 2024 9:47amOctober 2024 2:34pm[facility] [id number] [address] [place] [address] Diagnostic Imaging Reports Author Gonzalez Barclay [facility] SouthwoodsAuthoredOctober 2024 1:55pmReportDictated Date/TimeDictated ByStatusRadiology ReportOctober 2024 1:55pmMikaela LinaresChillicothe Hospital [facility] [address] [place] [address] Ultrasound Report Signed Patient: Elizabeth Schwartz MR#: [id number] : 1960 Acct:[id number] Age/Sex: 65 / F ADM Date: 5 Loc: [facility] Room: Type: REG CLI Attending Dr: Gonzalez Barclay MD Ordering Provider: Gonzalez Barclay MD Date of Service: 03/31/25 US/US ankle/arm indices: I73.9 - Peripheral vascular disease, unspecified Copies to: Gonzalez Barclay MD~ LOWER EXTREMITY SEGMENTAL ARTERIAL DOPSCAN (PVR) INDICATION: Surveillance study after episode of critical limb ischemia and PAD. PROCEDURE: Right arm blood pressure is 159 , left is 167 . Pressures of the right leg are 126 at the ankle using the posterior tibial artery and 78 at the ankle using the dorsalis pedis artery with ankle-brachial index of 0.47 0.75 . Pressures of the left leg are 88 at the ankle using the posterior tibial artery and 91 at the ankle using the dorsalis pedis artery with ankle-brachial index of 0.54 0.53 . Wave forms by plethysmography are biphasic, bilaterally. US/US ankle/arm indices IMPRESSION: MODERATE PERIPHERAL ARTERIAL DISEASE OF THE bilateral LOWER EXTREMITY AT REST. Impression dictated by: Gonzalez Barcaly MD,FACS,FSVS 03/31/2025 1:55 PM Dictation Location: [place] [address] Tech: Paula Kelley Transcribed By: PWS 03/31/25 1355 Dictated By: Gonzalez Barclay MD 03/31/25 1355 Signed By: <Electronically signed by Gonzalez Barclay MD in OV> 03/31/25 1355 Author Yazmin Barnes [facility] SouthwoodsAuthoredOctkosair children's hospital 2024 4:58pmReportDictated Date/TimeDictated ByStatusRadiology ReportOctober 2024 4:58pmBrissa PortilloProMedica [facility] [place] [address] [place] [address] XRay Report Signed Patient: Elizabeth Schwartz MR#: [id number] : 1960 Acct:[id number] Age/Sex: 65 / F ADM Date: 5 Loc: XD Room: Type: REG CLI Attending Dr: Halima Law APRN Copies to: Halima Law APRN~ Ordering Provider: Halima Law APRN Date of Service: 04/12/25 XR/XR foot RT min 3V*: ATTN HEEL AND 2ED TOE RIGHT FOOT - 3 views CLINICAL DATA: Open wounds at the bottom of the foot at the second digit and heel. Diabetes. COMPARISON: None AP, lateral and oblique views were obtained. There is osteopenia. There is no evidence of fracture or dislocation. No obvious bony destruction is seen. Posterior and plantar calcaneal spurs are visualized. There is mild dorsal soft tissue swelling. No radiopaque foreign bodies are visualized. XR/XR foot RT min 3V* IMPRESSION: CALCANEAL SPURS. NO ACUTE BONY FINDINGS. Impression dictated by: Yazmin Barnes M.D. 04/12/2025 5:00 PM Dictation Location: [place] [address] Transcribed By: [facility] 04/12/251699 Dictated By: Yazmin Barnes MD 04/12/25 165 Signed By: <Electronically signed by MD Yazmin Barnes in OV> 04/12/25 170 Author Gonzalez Barclay [facility] SouthwoodsAuthoredNovtucson heart hospital 2024 10:47amReport Dictated Date/TimeDictated ByStatusRadiology ReportNovember 2024 10:47am Gonzalez Barclay [facility] [address] [place] [address] Ultrasound Report Signed Patient: Elizabeth Schwartz MR#: [id number] : 1960 Acct:[id number] Age/Sex: 65 / F ADM Date: 5 Loc: [facility] Room: Type: [facility] Attending Dr: Gonzalez Barclay MD Ordering Provider: Gonzalez Barclay MD Date of Service: 05/19/25 US/US ankle/arm indices: I73.9 - Peripheral vascular disease, unspecified Copies to: Gonzalez Barclay MD~ LOWER EXTREMITY SEGMENTAL ARTERIAL DOPSCAN (PVR) INDICATION: She cannot feel pulse in her foot PROCEDURE: Right arm blood pressure is 126 , left is 120 . Pressures of the right leg are 111 at the ankle using the posterior tibial artery and 84 at the ankle using the dorsalis pedis artery with ankle-brachial index of 0.67 0.88 . Pressures of the left leg are 75 at the ankle using the posterior tibial artery and 71 at the ankle using the dorsalis pedis artery with ankle-brachial index of 0.56 0.60 . Wave forms by plethysmography are phasic, bilaterally. US/US ankle/arm indices IMPRESSION: Mild to moderate PERIPHERAL ARTERIAL DISEASE OF THE bilateral LOWER EXTREMITY AT REST. The patient's PAD is stable. There has been no change since the previous surveillance study. Impression dictated by: Gonzalez Barclay MD,FACS,FSVS 05/20/2025 10:48 AM Dictation Location: [facility]-04 Tech: Paula Benson Transcribed By: PWS 05/20/25 1048 Dictated By: Gonzalez Barclay MD 05/20/25 1047 Signed By: <Electronically signed by Gonzalez Barclay MD in OV> 05/20/25 1048 Vital Signs Vital Reading Result Reference Range Collection Date/Time Body Temperature 97.1 [degF] 97.6-99.0 March 10:08am Heart Rate 82 /min 60-100 March 31 10:08am Oxygen saturation by Pulse oximetry 98 % 95-100 March 31, 2025 10 :08am BP Systolic 102 mm[Hg] 100-140 March 31 10:08am BP Diastolic 70 mm[Hg] 60-100 March 31 10:08am Height 65 [in_i] May 12, 2025 10:69ezIsyzbw77.84 kgMay 12, 2025 10:13amBody Fakukhbuxgh76.1 [degF]97.6-99.0May 12, 2025 10:03amHeart Rate81 /min 60-100May 12, 2025 10:03amRespiratory rate16 /ffx00-00VzkliolcMay 12, 2025 10:03amBP Hsrqkgnk983 mm[Hg]100-140May 12, 2025 10:03amBP Hhlygvjoc34 mm[Hg]60-100May 12, 2025 10:03amBMI (Body Mass Index)27.4 kg/b4IpczclshMay 12, 2025 10:81udIzvatx40 [in_i]May 19, 2025 11:61ylKbtyiv30.00 kg May 19, 2025 11:49amBody Bqxiigeyviw28.2 [degF]97.6-99.0Nov2024 11:49amHeart Rate62 /lml31-340MzvkfwvjMay 19, 2025 11:49amRespiratory rate16 /owu64-20SvcrffqhMay 19, 2025 11:49amOxygen saturation by Pulse yhrirehi25 % 95-100May 19, 2025 11:49amBP Fjxdzaiw180 mm[Hg]100-140May 19, 2025 11:49amBP Vlhqssaoc56 mm[Hg]60-100Nov2024 11:49amBMI (Body Mass Index)27.1 kg/z4VagaoycpMay 19, 2025 11:06hyIrbgvo40.72 [in_i]May 24, 2025 1:65utAwnrih40.75 kgDeceer 2024 1:14pmHeart Rate74 /unr95-320Majmmsra 1st, 2025 1:14pmRespiratory rate16 /frj80-62Kaxtebic 2024 1:14pmOxygen saturation by Pulse jlegiieb56 %95-100Dece2024 1:14pmBP Ucmgibon62 mm[Hg]100-140December 2024 1:14pmBP Novndgjjl45 mm[Hg]60-100December 2024 1:14pmBMI (Body Mass Index)30.6 kg/f2Hrlgwuoc 2024 1:14pm Advance Directives Advance Directive Response Recorded Date/ Time Advance Directives No February 1:51pm Insurance Providers Guarantor Elizabeth Schwartz Address [address] [facility] [id number] Info.Home Phone: Coverage Status Update:2024 Payer Group Member ID Coverage Type Subscriber Relationship to Subscriber Effective Date Expiration Date Medicaid [id number] E Magyar Id: [id number] [address] [place] [phone] Home Phone: Self Encounters Encounter Location(s) Arrival/Admit Date Discharge/Departure Date Discharge/Departure Disposition Provider(s) Departed Clinical -Ultrasound [facility] March 31, 2025 10:03am March 31, 2025 10:04am Discharged to home care or self care (routine discharge) Gonzalez Barclay MD Departed Physician/ Provider Office Visit -[facility] Surg March 31, 2025 10:05am March 31, 2025 11:24am Discharged to home care or self care (routine discharge) Gonzalez Barclya MD [facility] April 12, 2025 10:15am April 12, 2025 10:16am Discharged to home care or self care (routine discharge) Sara Davies COPY DIRECTOR Registered Recurring -Wound Care [place] April 10:01am Sara Davies APRNDeparted Physician/Provider Office [facility] 20[facility] 11:34amNoveer 2024 12:49pmDischarged to home care or self care (routine discharge)Gonzalez Barclay , DIeparted Clinical-Ul[facility]ound [facility] 2024 12:01pmNovtucson heart hospital 2024 12:02pmDischarged to home care or self care (routine discharge)DI Linareseparted Physician/Provider Office Visit-[facility]24 1:15pmDedign[facility] 2024 2:35pmDischarged to home care or self care (routine discharge)Mai Cantu , DESTINEE Recent Diagnosis Onset Date Admit Date Peripheral arterial disease Unknown Octo 2024 10:05am Diabetes Unknown May 12, 2 025 10:01am Peripheral arterial disease Unknown Nove [facility] 2024 10:01am Skin ulcer of right great toe Unknown No vember 2024 10:01am Skin ulcer of third toe of right foot Unknown May 12, 2025 10:01am Smoking addiction Unknown May 12, 2025 10:01am Ulcer of right heel Unknown April 10:01am Ulcer of right second toe Unknown Novem er 2024 10:01am Skin ulcer of third toe of right foot Unknown May 19, 2025 11:34am Assessments Diagnosis Onset Date Resolution Status Admit Date Peripheral arterial disease acuteOctkosair children's hospital 2024 10:05amDiabetesacuteNov2024 10:01amPeripheral arterial diseaseacuteNov2024 10:01amSkin ulcer of right great toe acuteNov2024 10:01amSkin ulcer of third toe of right footacute May 12, 2025 10:01amSmoking addictionacuteMay 12, 2025 10:01am Ulcer of right heelacuteNov2024 10:01amUlcer of right second toe acuteNov2024 10:01amSkin ulcer of third toe of right footacute May 19, 2025 11:34am Plan of Treatment Author Gonzalez [facility] 2024 11:01amI reviewed the noninvasive arterial studies. Her PAD is currently stable. I do not really recommend any further intervention at this time. I certainly recommend smoking cessation. We will see patient back in 6 months with repeat surveillance surveillance ABIs. She understands agrees the plan all her questions were addressed. Author Gonzalez [facility]insA[facility] 20[facility] 12:44pmThe patient has wounds on almost all of her toes. She is to quit smoking. Her blood supply is adequate for healing. I told her this many times. This is a team effort. She understands. She does not need an angiogram or angioplasty. She is to quit smoking. I will see her in 6 months. Future Tests Future scheduled test information is unavailable Pending Tests Test Name Ordered Date Scheduled Date US aorta March 31, 2025 10:27am 11 Mon ths Future Visits Future appointment information is unavailable Future Procedures Procedure Name Ordered Date Scheduled Date US ankle/arm indices March 31, 2025 10:27am 1 1 Months US ankle/arm indices May 19, 2025 12:45pm 5 Months Future Medications Future medication information is unavailable Patient Instructions Patient instructions are unavailable
--- NOTE | 2025-06-04 10:22 | MM_ITS ---
Patient Name: PAULY QUEZADA MR#: [id number] : 1960 Exam Date: 06/04/2025 Ordering Doctor: DR NANO NGUYEN . RADIOLOGY REPORT PROCEDURE: MM TOMOSYNTHESIS SCREENING BI COMPARISON: MM TOMOSYNTHESIS SCREENING BI, 06/03/2024. MM TOMOSYNTHESIS SCREENING BI, 05/31/2023. MG MAMM SCREEN 3D LOVE CAD, 05/25/2022. MG MAMM SCREEN 3D LOVE CAD, 03/29/2021. INDICATIONS: Screening Calculator Name NCI Breast Cancer Risk Assessment Tool 5 Year Breast Cancer Risk 2.20% Lifetime Breast Cancer Risk 7.60% Personal Breast Cancer No Personal Ovarian Cancer No Treatments None Family Cancers Aunt-maternal with breast cancer at age 60; Brother with lung cancer at age 58; Brother with lung cancer at age 60. LOCATION: [facility] BREAST COMPOSITION: The breasts are almost entirely fatty. FINDINGS: DIAGNOSTIC CATEGORY 0--INCOMPLETE: NEED ADDITIONAL IMAGING EVALUATION. RIGHT BREAST: There is a view 1 cm focal asymmetry of the medial aspect of the right breast near the 3 o'clock position 2.2 cm from the nipple. Benign-appearing calcifications are redemonstrated. LEFT BREAST: No significant suspicious finding. Benign-appearing calcifications are redemonstrated 3rd RECOMMENDATIONS: ADDITIONAL MAMMOGRAPHIC VIEWS REQUIRED: RIGHT BREAST - follow-up with spot compressed views of the right breast and ultrasound if necessary is recommended. Dictated by: Germain Jo MD on 06/04/2025 at 14:48 Approved by: Germain Jo MD on 06/04/2025 at 15:18
== END 2025-06-04 09:53 | disposition home or self-care (01) ==
LOC: MAMMO 09:52
PROVIDERS: PCP Family Medicine; Visit Provider Family Medicine
DX: Z12.31 Encounter for screening mammogram for malignant neoplasm of breast (principal); Z80.3 Family history of malignant neoplasm of breast; Z80.1 Family history of malignant neoplasm of trachea, bronchus and lung; R92.8 Other abnormal and inconclusive findings on diagnostic imaging of breast
CPT/HCPCS: 77063; 77067